=== PATIENT | male | born 1965 | race Caucasian/White ===

== ENCOUNTER 2016-12-28 12:08 | Inpatient (IN) | payer SELFPAY ==
[2016-12-28 12:20] VITALS: BMI 25.8
--- NOTE | 2016-12-28 12:31 | EKG ---
Test Reason : Blood Pressure : / mmHG Vent. Rate : 101 BPM Atrial Rate : 101 BPM P-R Int : 162 ms QRS Dur : 088 ms QT Int : 342 ms P-R-T Axes : 045 027 036 degrees QTc Int : 443 ms SINUS TACHYCARDIA OTHERWISE NORMAL ECG WHEN COMPARED WITH ECG OF 09-OCT-2015 05:59, NO SIGNIFICANT CHANGE WAS FOUND Confirmed by CHANDANA KINGSTON MD ([id number]) on 12/28/2016 12:30:40 PM Referred By: Confirmed By:CHANDANA KINGSTON MD
[2016-12-28 12:58] LABS: MCH 24.1 pg (25.7-33.7); MCHC 31.6 g/dl (32.0-35.9); MEAN CELL VOLUME 76.3 fl (80-96); MEAN PLT VOLUME 8.2 fl (7.5-11.1); PLATELET COUNT 64 K/MM3 (134-434); RDW 24.4 % (11.9-15.9)
[2016-12-28] MEDS ORDERED: NITROGLYCERIN SUBLINGUAL 1/150 0.4 MG TAB SL ONE (13:05)
--- NOTE | 2016-12-28 13:05 | PDOC ---
History of Present Illness - History of Present Illness Initial Comments: 12/28/16 14:45 Patient is a 51-year-old male with past medical history of alcoholism, hyperlipidemia, gastritis, GI bleed who presents to the emergency department today complaining of chest pain. Patient presents from [facility] where he was currently in detox. Patient states that he has had left-sided chest pain for approximately one week which has gotten worse over the past 24 hours. He states that the pain is sharp and constant. It does not change when he takes a deep breath. Admits to palpitations. Sometimes the pain makes him short of breath. He has not taken any medication for the pain. Denies fevers, chills, weakness, edema, cough, wheezing, nausea, vomiting and diarrhea. Denies smoking and recreational drug use. <Crissy Choi - Last Filed: 01/03/17 12:11> <Manjula Bills - Last Filed: 01/03/17 13:00> - General Chief Complaint: Chest Pain Stated Complaint: Alcohol intoxication Time Seen by Provider: 12/28/16 12:48 Past History - Travel Traveled outside of the country in the last 30 days: No Close contact w/someone who was outside of country & ill: No - Past Medical History Asthma: No Cardiac Disorders: No COPD: No Diabetes: No GI Disorders: Yes (gastritis, gastrointestinal bleeding) Disorders: No HTN: No Kidney Stones: No Suicide Attempt (Hx): No Seizures: No - Surgical History Abdominal Surgery: No Appendectomy: No Cardiac Surgery: No Cholecystectomy: No Lung Surgery: No Neurologic Surgery: No Orthopedic Surgery: No - Reproductive History Testicular Surgery: No - Immunization History Immunization Up to Date: No - Psycho/Social/Smoking Cessation Hx Anxiety: No Suicidal Ideation: No Smoking History: Never smoked Have you smoked in the past 12 months: No Number of Cigarettes Smoked Daily: 20 'Breaking Loose' booklet given: 10/06/15 Hx Alcohol Use: Yes (vodka) Drug/Substance Use Hx: No Substance Use Type: Alcohol Hx Substance Use Treatment: Yes <Crissy Choi - Last Filed: 01/03/17 12:11> <Manjula Bills - Last Filed: 01/03/17 13:00> - Past Medical History Allergies/Adverse Reactions: Allergies Allergy/AdvReac Type Severity Reaction Status Date / Time No Known Allergies Allergy Verified 12/28/16 11:17 Home Medications: Ambulatory Orders NK [No Known Home Medication] 10/06/15 Review of Systems - Review of Systems Able to Perform ROS?: Yes <Crissy Choi - Last Filed: 01/03/17 12:11> *Physical Exam - Vital Signs Last Vital Signs Temp Pulse Resp BP Pulse Ox 98.2 F 105 H 18 140/102 96 12/28/16 12:19 12/28/16 12:19 12/28/16 12:19 12/28/16 12:19 12/28/16 12:19 - Physical Exam Comments: 12/28/16 14:49 GENERAL: Well developed, well nourished. Awake and alert. No acute distress. HEENT: Normocephalic, atraumatic. PERRLA, EOMI. No conjunctival pallor. Sclera are non- icteric. Moist mucous membranes. Oropharynx is clear. NECK: Supple. Full ROM. No JVD. Carotid pulses 2+ and symmetric, without bruits. No thyromegaly. No lymphadenopathy. CARDIOVASCULAR: Regular rate and rhythm. No murmurs, rubs, or gallops. Distal pulses are 2+ and symmetric. PULMONARY: No evidence of respiratory distress. Lungs clear to auscultation bilaterally. No wheezing, rales or rhonchi. ABDOMINAL: Soft. Non-tender. Non-distended. No rebound or guarding. No organomegaly. Normoactive bowel sounds. MUSCULOSKELETAL Normal range of motion at all joints. No bony deformities or tenderness. No CVA tenderness. EXTREMITIES: No cyanosis. No clubbing. No edema. No calf tenderness. SKIN: Warm and dry. Normal capillary refill. No rashes. No jaundice. NEUROLOGICAL: Alert, awake, appropriate. Cranial nerves 2-12 intact. No deficits to light touch and temperature in face, upper extremities and lower extremities. No motor deficits in the in face, upper extremities and lower extremities. Normoreflexic in the upper and lower extremities. Normal speech. Toes are down- going bilaterally. Gait is normal without ataxia. PSYCHIATRIC: Cooperative. Good eye contact. Appropriate mood and affect. <Crissy Choi - Last Filed: 01/03/17 12:11> - Vital Signs Last Vital Signs Temp Pulse Resp BP Pulse Ox 97.9 F 71 20 121/71 99 01/03/17 10:00 01/03/17 10:00 01/03/17 10:00 01/03/17 10:00 01/03/17 10:00 <Manjula Bills - Last Filed: 01/03/17 13:00> ED Treatment Course - LABORATORY CBC & Chemistry Diagram: 12/28/16 12:21 12/28/16 12:21 <Crissy Choi - Last Filed: 01/03/17 12:11> - LABORATORY CBC & Chemistry Diagram: 01/03/17 05:35 01/03/17 05:35 - ADDITIONAL ORDERS Additional order review: 12/29/16 12/28/16 05:35 12:21 RBC 4.50 4.79 D MCV 76.3 L 76.3 L MCHC 31.5 L 31.6 L RDW 22.9 H 24.4 H MPV 8.8 8.2 Neutrophils % 60.0 D 42.0 L D Lymphocytes % 26.0 D 41.0 H D Monocytes % 12.0 H 11.0 H Eosinophils % 2.0 D 1.0 Basophils % 5.0 H D - RADIOLOGY Radiology Studies Ordered: Category Date Time Status CHEST X-RAY PORTABLE* [RAD] Stat Radiology 12/28/16 12:18 Completed - Medications Given in the ED: ED Medications Discontinued Medications Generic Name Dose Route Start Last Admin Trade Name Freq PRN Reason Stop Dose Admin Aspirin 162 mg 12/29/16 13:04 12/28/16 14:12 Ecotrin - PO 12/29/16 13:05 162 mg ONCE ONE Administration Bismuth Subsalicylate 30 ml 12/28/16 14:48 12/28/16 15:31 Pepto-Bismol Liquid - PO 12/28/16 14:49 30 ml ONCE ONE Administration Chlordiazepoxide HCl 50 mg 12/28/16 17:00 12/29/16 10:47 Librium - PO 12/29/16 11:01 50 mg [id number] ALPA Administration Chlordiazepoxide HCl 25 mg 12/29/16 17:00 12/30/16 11:41 Librium - PO 12/30/16 11:01 25 mg [id number] ALPA Administration Chlordiazepoxide HCl 25 mg 12/28/16 16:17 12/31/16 14:42 Librium - PO 12/31/16 16:16 25 mg Q4H PRN Administration WITHDRAWAL(CONT SUBST) Chlordiazepoxide HCl 50 mg 12/30/16 17:00 01/01/17 05:23 Librium - PO 50 mg [id number] ALPA Administration Chlordiazepoxide HCl 25 mg 01/01/17 11:00 01/02/17 06:31 Librium - PO 01/02/17 05:01 25 mg [id number] ALPA Administration Chlordiazepoxide HCl 15 mg 01/02/17 11:00 01/02/17 22:19 Librium - PO 01/03/17 05:01 15 mg [id number] ALPA Administration Chlordiazepoxide HCl 15 mg 01/03/17 07:30 01/03/17 07:39 Librium - PO 01/03/17 07:31 15 mg [id number] ALPA Administration Famotidine/Sodium Chloride 50 mls @ 100 mls/hr 12/28/16 22:00 12/30/16 09:07 Pepcid 20 Mg Premixed Ivpb - IVPB Not Given BID ALPA Sodium Chloride 1,000 mls @ 83 mls/hr 12/29/16 18:45 12/29/16 18:57 Normal Saline - IV 83 mls/hr ASDIR ALPA Administration Lorazepam 1 mg 12/30/16 05:24 01/01/17 13:32 Ativan - PO 12/30/16 05:25 Not Given ONCE ONE Lorazepam 2 mg 12/30/16 07:30 12/30/16 07:34 Ativan Injection - IM 12/30/16 07:31 2 mg ONCE ONE Administration Lorazepam 2 mg 12/30/16 10:45 12/30/16 10:40 Ativan Injection - IM 12/30/16 10:46 2 mg ONCE ONE Administration Lorazepam 2 mg 12/30/16 14:47 12/30/16 14:52 Ativan Injection - IM 12/30/16 14:48 2 mg ONCE ONE Administration Lorazepam 2 mg 12/31/16 00:08 12/31/16 00:11 Ativan Injection - IM 12/31/16 00:09 2 mg ONCE ONE Administration Lorazepam 2 mg 12/31/16 01:00 12/31/16 01:06 Ativan Injection - IM 12/31/16 01:01 2 mg ONCE ONE Administration Magnesium Citrate 300 ml 12/29/16 15:50 01/01/17 13:32 Citroma - PO 12/29/16 15:51 Not Given ONCE ONE Magnesium Oxide 800 mg 12/29/16 16:30 12/29/16 16:25 Mag-Ox - PO 12/29/16 16:31 800 mg ONCE ONE Administration Magnesium Oxide 800 mg 12/30/16 17:34 12/30/16 18:53 Mag-Ox - PO 12/30/16 17:35 800 mg ONCE ONE Administration Morphine Sulfate 2 mg 12/28/16 19:57 12/28/16 22:24 Morphine Injection - IVPUSH 2 mg Q4H PRN Administration PAIN Nitroglycerin 0.4 mg 12/28/16 13:05 12/28/16 14:13 Nitrostat - SL 12/28/16 13:06 Not Given ONCE ONE Nitroglycerin 0.5 inch 12/28/16 13:22 12/28/16 14:12 Nitro-Bid 2% Paste - TD 12/28/16 13:23 0.5 inch ONCE ONE Administration Potassium Chloride 40 meq 12/29/16 15:00 12/29/16 15:19 Potassium Chloride Oral Liquid PO 12/29/16 15:01 40 meq ONCE ONE Administration Potassium Chloride 40 meq 12/31/16 10:00 12/31/16 09:50 K-Dur - PO 12/31/16 10:01 40 meq ONCE ONE Administration Potassium Phos/Sodium Phos 1 packet 12/30/16 17:45 12/31/16 17:13 Phos-Nak Packet - PO 1 packet TIDCM ALPA Administration <Manjula Bills - Last Filed: 01/03/17 13:00> Medical Decision Making - Medical Decision Making 12/28/16 13:32 Patient is a 51-year-old male with past medical history of alcoholism, hyperlipidemia, who presents to the emergency department today complaining of chest pain. Given the location of pain and the fact that it is nonreproducible, will rule out ACS. Also possible withdrawal from alcohol, costochondritis, GERD. Vital signs are notable for tachycardia into the 120s, initial blood pressure was 150/100. 1. CBC, CMP, Cardiac profile, lipase, pt/inr 2. Aspirin, Nitro 3. EKG, CXR 4. Re-evaluate 12/28/16 14:06 EKG: Rate 101, Normal intervals, normal axis. Sinus tachycardia with no acute ST -T wave changes CXR: Heart size is within normal limits. There is increased opacity within the left upper lobe that appears to be chronic in nature and was present on prior studies from 10/06/2015. There is also atelectatic changes at the left lung base. The right lung is clear. Suspected chronic changes within the left lung, no evidence of acute pathology. 12/28/16 14:55 Pt. states that he feels better after the nitro. Troponin is negative. CBC notable for a WBC of 2.0, however pt WBC trends low. Pt. still tachycardic in the 100's Given pt felt better after nitro and sustained tachycardia, will place pt. in tele obs <Crissy Choi - Last Filed: 01/03/17 12:11> *DC/Admit/Observation/Transfer <Crissy Choi - Last Filed: 01/03/17 12:11> - Attestations Physician Attestion: I reviewed the case with the mid-level practitioner and agree with the mid- level practitioner's assessment, diagnosis and disposition. <Manjula Bills - Last Filed: 01/03/17 13:00> Diagnosis at time of Disposition: Tachycardia Chest pain Qualifiers: Chest pain type: unspecified Qualified Code(s): R07.9 - Chest pain, unspecified
[2016-12-28 13:06] LABS: ANION GAP 13 (8-16); BILIRUBIN,TOTAL 0.7 mg/dL (0.2-1.0); CO2 27 mmol/L (21-32); CREATININE 0.6 mg/dL (0.7-1.3); GLUCOSE,RANDOM 109 mg/dL (74-106); SGOT/AST 165 U/L (15-37); SGPT/ALT 78 U/L (12-78); TOT PROT 8.4 g/dl (6.4-8.2)
[2016-12-28 13:10] LABS: ALK PHOS 92 U/L (45-117); CPK 229 IU/L (39-308); TROPONIN I < 0.02 ng/ml (0.00-0.05)
[2016-12-28] MEDS ORDERED: NITROGLYCERIN 2% OINTMENT - 1GM PACKET TD ONE ×2 (13:22→14:08)
[2016-12-28] MEDS ORDERED: ASPIRIN 81 MG CHEWABLE TABLETS ONE (14:08)
[2016-12-28] MEDS ORDERED: BISMUTH SUBSALICYLATE 262 MG/15 ML BTL PO ONE (14:48)
--- NOTE | 2016-12-28 16:15 | HP ---
CHIEF COMPLAINT: chest pain PCP: none HISTORY OF PRESENT ILLNESS: 51 yo non-smoker with pmhx of alcohol abuse and GI bleed presents from [facility] with chest pain. He states that this pain has been off and on for about a month and has slowly progressed over the last week. He describes 8/10 left sided chest pressure that can become substernal at times. Pain is associated with activity and relieved by rest and nitro now in ED. Pain also associated with diaphoresis and palpitations. No history of cardiac issues in past. No family history of CV disease. Pain is not reproducible by palpation. He does mention some nausea and vomiting but this is chronic from his GI problems in past. Denies SOB, abdominal pain, N/V,fever, or recent illness. No cardiac work up in past. ER course was notable for: (1)Trop (-) x1 (2)EKG shows NSR with no ST or T wave abnormalities. (3)CXR shows no acute pathology. Recent Travel:Denies PAST MEDICAL HISTORY:Alcohol abuse, and GI bleed. PAST SURGICAL HISTORY: NONE Social History: Smoking: never Alcohol: abuse Drugs: denies Family History: NIDDM (mother and father) Allergies No Known Allergies Allergy (Verified 12/28/16 11:17) HOME MEDICATIONS: Home Medications Medication Instructions Recorded NK [No Known Home Medication] 10/06/15 REVIEW OF SYSTEMS CONSTITUTIONAL: Absent: fever, chills, diaphoresis, generalized weakness, malaise, loss of appetite, weight change HEENT: Absent: rhinorrhea, nasal congestion, throat pain, throat swelling, difficulty swallowing, mouth swelling, ear pain, eye pain, visual changes CARDIOVASCULAR: chest pain, palpitations Absent: , syncope, irregular heart rate, lightheadedness, peripheral edema RESPIRATORY: Absent: cough, shortness of breath, dyspnea with exertion, orthopnea, wheezing, stridor, hemoptysis GASTROINTESTINAL: Absent: abdominal pain, abdominal distension, nausea, vomiting, diarrhea, constipation, melena, hematochezia GENITOURINARY: Absent: dysuria, frequency, urgency, hesitancy, hematuria, flank pain, genital pain MUSCULOSKELETAL: Absent: myalgia, arthralgia, joint swelling, back pain, neck pain SKIN: Absent: rash, itching, pallor HEMATOLOGIC/IMMUNOLOGIC: Absent: easy bleeding, easy bruising, lymphadenopathy, frequent infections ENDOCRINE: Absent: unexplained weight gain, unexplained weight loss, heat intolerance, cold intolerance NEUROLOGIC: Absent: headache, focal weakness or paresthesias, dizziness, unsteady gait, seizure, mental status changes, bladder or bowel incontinence PSYCHIATRIC: Absent: anxiety, depression, suicidal or homicidal ideation, hallucinations. PHYSICAL EXAMINATION Vital Signs - 24 hr 12/28/16 12/28/16 12/28/16 12:19 13:22 15:12 Temperature 98.2 F Pulse Rate 105 H Pulse Rate [ 90 90 Apical] Respiratory 18 18 Rate Blood Pressure 140/102 Blood Pressure 121/87 128/89 [Right Arm] O2 Sat by Pulse 96 100 Oximetry (%) GENERAL: AAO x3, NAD HEAD: NC/AT EYES: PERRLA, EOMI, sclera anicteric, conjunctiva clear. No lid lag. EARS, NOSE, THROAT: Ears normal, nares patent, oropharynx clear without exudates. Dry mucous membranes. NECK: Supple, NO JVD or LAD LUNGS: CTAB. No wheezes, and no crackles. No accessory muscle use. HEART: Tachycardic, normal S1 and S2 without murmur, rub or gallop. ABDOMEN: Soft, NT/ND, normoactive bowel sounds, no guarding, no rebound, no masses. No hepatomegaly or splenomegaly. MUSCULOSKELETAL: Normal range of motion at all joints. No bony deformities or tenderness. No CVA tenderness. UPPER EXTREMITIES: 2+ pulses, warm, well-perfused. No cyanosis. No clubbing. No peripheral edema. LOWER EXTREMITIES: 2+ pulses, warm, well-perfused. No calf tenderness. No peripheral edema. NEUROLOGICAL: Cranial nerves II-XII intact. Normal speech. gait not observed. fine resting trem PSYCHIATRIC: Cooperative. Good eye contact. Appropriate mood and affect. SKIN: Warm, dry, normal turgor, no rashes or lesions noted, normal capillary refill. Laboratory Results - last 24 hr 12/28/16 12/28/16 12:21 12:21 WBC 2.0 L D RBC 4.79 D Hgb 11.5 L D Hct 36.5 D MCV 76.3 L MCH 24.1 L MCHC 31.6 L RDW 24.4 H Plt Count 64 L MPV 8.2 Neutrophils % Y Lymphocytes % Y Sodium 141 Potassium 3.5 Chloride 101 Carbon Dioxide 27 Anion Gap 13 BUN 7 D Creatinine 0.6 L Creat Clearance w eGFR > 60 Random Glucose 109 H Calcium 8.0 L Total Bilirubin 0.7 AST 165 H D ALT 78 D Alkaline Phosphatase 92 D Creatine Kinase 229 Creatine Kinase Index 0.4 CK-MB (CK-2) < 1 Troponin I < 0.02 Total Protein 8.4 H D Albumin 4.0 D Lipase 388 ASSESSMENT/PLAN: 51 yo non-smoker with pmhx of alcohol abuse and GI bleed presents from [facility] detox placed on observation to R/O ACS. Problem List - Problem (1) Chest pain Assessment/Plan: * Tele obs * Serial trops Q6H * Cardiac consult. * Echo pending. * Sodium controlled diet. * Nitro SL Q5M PRN. * Repeat EKG in AM. * Lipid panel * HgbA1C (2) Alcohol abuse Assessment/Plan: * Librium protocol * assess for withdrawl Q shift. Visit type - Emergency Visit Emergency Visit: Yes Care time: The patient presented to the Emergency Department on the above date and was hospitalized for further evaluation of their emergent condition. - New Patient This patient is new to me today: Yes Date on this admission: 12/28/16 - Critical Care Critical Care patient: No
[2016-12-28] MEDS ORDERED: NITROGLYCERIN SUBLINGUAL 1/150 0.4 MG TAB SL PRN (16:16)
[2016-12-28] MEDS ORDERED: chlordiazePOXIDE HCL 25 MG CAPSULE ONE (17:32)
[2016-12-28] MEDS: chlordiazePOXIDE HCL 25 MG CAPSULE PO SCH ×2 (17:34→22:23)
--- NOTE | 2016-12-28 17:42 | PN ---
Physical Exam: SUBJECTIVE: Patient seen and examined OBJECTIVE: GENERAL: The patient is awake, alert, and fully oriented, in no acute distress. HEAD: Normal with no signs of trauma. EYES: PERRL, extraocular movements intact, sclera anicteric, conjunctiva clear. No ptosis. ENT: Ears normal, nares patent, oropharynx clear without exudates, moist mucous membranes. NECK: Trachea midline, full range of motion, supple. LUNGS: Breath sounds equal, clear to auscultation bilaterally, no wheezes, no crackles, no accessory muscle use. HEART: Regular rate and rhythm, S1, S2 without murmur, rub or gallop. ABDOMEN: Soft, nontender, nondistended, normoactive bowel sounds, no guarding, no rebound, no hepatosplenomegaly, no masses. EXTREMITIES: 2+ pulses, warm, well-perfused, no edema. NEUROLOGICAL: Cranial nerves II through XII grossly intact. Normal speech, gait not observed. PSYCH: Normal mood, normal affect. SKIN: Warm, dry, normal turgor, no rashes or lesions noted Active Medications Generic Name Dose Route Start Last Admin Trade Name Freq PRN Reason Stop Dose Admin Aspirin 162 mg 12/29/16 13:04 12/28/16 14:12 Ecotrin - PO 12/29/16 13:05 162 mg ONCE ONE Administration Chlordiazepoxide HCl 50 mg 12/28/16 17:00 Librium - PO 12/29/16 11:01 [id number] ALPA Chlordiazepoxide HCl 25 mg 12/29/16 17:00 Librium - PO 12/30/16 11:01 [id number] ALPA Chlordiazepoxide HCl 15 mg 12/30/16 17:00 Librium - PO 12/31/16 11:01 [id number] ALPA Chlordiazepoxide HCl 25 mg 12/28/16 16:17 Librium - PO 12/31/16 16:16 Q4H PRN WITHDRAWAL(CONT SUBST) Heparin Sodium (Porcine) 5,000 unit 12/28/16 22:00 Heparin - SQ BID ALPA Famotidine/Sodium Chloride 50 mls @ 100 mls/hr 12/28/16 22:00 Pepcid 20 Mg Premixed Ivpb - IVPB BID ALPA Nitroglycerin 0.4 mg 12/28/16 16:16 Nitrostat - SL Q5M PRN FOR CHEST PAIN ASSESSMENT/PLAN:
[2016-12-28 18:26] LABS: ANISOCYTOSIS 3+; HYPOCHROMIA 1+; MICROCYTOSIS 1+; PLATELET ESTIMATE DECREASED (NORMAL)
--- NOTE | 2016-12-28 18:28 | PN ---
Teaching Attending Note Name of Resident: Brett Quach ATTENDING PHYSICIAN STATEMENT I saw and evaluated the patient. I reviewed the resident's note and discussed the case with the resident. I agree with the resident's findings and plan as documented. SUBJECTIVE: This is a 51-year-old man with a history of alcohol abuse who presents to the ER from [facility] with chest pain. He has been having left- sided and substernal chest pressure with exertion on and off for about one month , and worse during the last week. The pain does not radiate but is associated with palpitations and diaphoresis. He got relief in the ER with aspirin and SLNTG. OBJECTIVE: Vital Signs Period Temp Pulse Resp BP Sys/Boykin Pulse Ox Last 24 Hr 98.2 F 90-105 18-18 121-140/87-102 96-100 HEART: S1S2, tachycardic LUNGS: Clear ABDOMEN: Soft, non-tender, non-distended, normal BS EXTREMITIES: No edema ASSESSMENT AND PLAN: This is a 51-year-old man with a history of alcohol abuse who presented to the ER today with exertional chest pain for the past month. 1. Chest pain - Admit to telemetry - Serial troponins - Continue aspirin - Check lipid panel, HgbA1c, echo - Cardiology consult 2. Continuous alcohol abuse with withdrawal - Start Librium detox, thiamine, folic acid 3. Pancytopenia, secondary to alcohol abuse - Monitor CBC 4. Hepatic transaminitis, secondary to alcohol abuse - Monitor AST, ALT
--- NOTE | 2016-12-28 19:55 | HP ---
CHIEF COMPLAINT: Chest pain PCP: None HISTORY OF PRESENT ILLNESS: 51 year old M with pmh of alcohol abuse and gastrointestinal bleed presenting from [facility] with 1 month history of chest pain that has worsened over the past week. Patient describes 8/10, chest pain and pressure on the left side and substernally. Pain is worsened by activity and improved upon rest and with nitroglycerin. Patient endorses episdoes of palpitations and diaphoresis. Patient has occasional nausea and vomiting that has been chronic from GI issues. Denies any fever, chills, SOB, or abdominal pain. Patient has no cardiac history, no family history of cardiac disease, or no prior cardiac workups. ER course was notable for: (1) Labs (2) EKG- NSR, CXR- negative (3) Trops negative x1 Recent Travel: None PAST MEDICAL HISTORY: alcohol abuse and gastrointestinal bleed PAST SURGICAL HISTORY: denies Social History: Smoking: none Alcohol: significant history Drugs: none Family History: Mother and Father with NIDDM Allergies No Known Allergies Allergy (Verified 12/28/16 11:17) HOME MEDICATIONS: Home Medications Medication Instructions Recorded NK [No Known Home Medication] 10/06/15 REVIEW OF SYSTEMS CONSTITUTIONAL: Absent: fever, chills, diaphoresis, generalized weakness, malaise, loss of appetite, weight change HEENT: Absent: rhinorrhea, nasal congestion, throat pain, throat swelling, difficulty swallowing, mouth swelling, ear pain, eye pain, visual changes CARDIOVASCULAR: Absent: chest pain, syncope, palpitations, irregular heart rate, lightheadedness , peripheral edema RESPIRATORY: Absent: cough, shortness of breath, dyspnea with exertion, orthopnea, wheezing, stridor, hemoptysis GASTROINTESTINAL: Absent: abdominal pain, abdominal distension, nausea, vomiting, diarrhea, constipation, melena, hematochezia GENITOURINARY: Absent: dysuria, frequency, urgency, hesitancy, hematuria, flank pain, genital pain MUSCULOSKELETAL: Absent: myalgia, arthralgia, joint swelling, back pain, neck pain SKIN: Absent: rash, itching, pallor HEMATOLOGIC/IMMUNOLOGIC: Absent: easy bleeding, easy bruising, lymphadenopathy, frequent infections ENDOCRINE: Absent: unexplained weight gain, unexplained weight loss, heat intolerance, cold intolerance NEUROLOGIC: Absent: headache, focal weakness or paresthesias, dizziness, unsteady gait, seizure, mental status changes, bladder or bowel incontinence PSYCHIATRIC: Absent: anxiety, depression, suicidal or homicidal ideation, hallucinations. PHYSICAL EXAMINATION Vital Signs - 24 hr 12/28/16 19:11 Pulse Rate 123 H Respiratory 18 Rate Blood Pressure 127/92 O2 Sat by Pulse 100 Oximetry (%) GENERAL: Awake, alert, and fully oriented, in no acute distress. HEAD: Normal with no signs of trauma. EYES: Pupils equal, round and reactive to light, extraocular movements intact, sclera anicteric, conjunctiva clear. No lid lag. EARS, NOSE, THROAT: Ears normal, nares patent, oropharynx clear without exudates. NECK: Normal range of motion, supple without lymphadenopathy, JVD, or masses. LUNGS: Breath sounds equal, clear to auscultation bilaterally. No wheezes, and no crackles. No accessory muscle use. HEART: Tachycardic, normal S1 and S2 without murmur, rub or gallop. ABDOMEN: Soft, nontender, not distended, normoactive bowel sounds, no guarding, no rebound, no masses. No hepatomegaly or splenomegaly. MUSCULOSKELETAL: Normal range of motion at all joints. No bony deformities or tenderness. No CVA tenderness. UPPER EXTREMITIES: 2+ pulses, warm, well-perfused. No cyanosis. No clubbing. No peripheral edema. RESTING TREMOR LOWER EXTREMITIES: 2+ pulses, warm, well-perfused. No calf tenderness. No peripheral edema. NEUROLOGICAL: Cranial nerves II-XII intact. Normal speech. Normal gait. PSYCHIATRIC: Cooperative. Good eye contact. Appropriate mood and affect. SKIN: Warm, dry, normal turgor, no rashes or lesions noted, normal capillary refill. ASSESSMENT/PLAN: 51 year old M with pmh of alcohol abuse and GI bleed presenting with 1 month history of chest pain admitted for r/o acs and librium protocol. Problem List - Problem (1) Chest pain Assessment/Plan: Admit to med surg Trops negative x1, will repeat every 6 hrs Echo pending Sodium controlled diet Nitroglycerin q5m SL PRN Lipid panel A1c EKG in the AM Morphine 2mg Q4h PRN for pain Cardiology consulted: Dr. Dixon (2) Alcohol abuse Assessment/Plan: Librium protocol (3) DVT prophylaxis Assessment/Plan: Heparin 5000 units sq BID Visit type - Emergency Visit Emergency Visit: Yes ED Registration Date: 12/28/16 Care time: The patient presented to the Emergency Department on the above date and was hospitalized for further evaluation of their emergent condition. - New Patient This patient is new to me today: Yes Date on this admission: 12/28/16 - Critical Care Critical Care patient: No
[2016-12-28] MEDS ORDERED: morphine CARPU-JECT 4 MG/1 ML DISP.SYRIN IVPUSH PRN (19:57)
[2016-12-28] MEDS: HEPARIN NA (PORCINE) 5,000 UNITS/ML 1ML VIAL SQ SCH (22:22)
[2016-12-28] MEDS: FAMOTIDINE 20 MG/50 ML IVPB 50 ML IVPB SCH (22:23)
[2016-12-29] MEDS: chlordiazePOXIDE HCL 25 MG CAPSULE PO PRN (01:32)
--- NOTE | 2016-12-29 01:36 | HOSP ---
Subjective - Review of Symptoms Events since last encounter: Paged by nurse because patient appears diaphoretic, tachycardic and c/o chest pain. Arrived at scene, patient's Malawian speaking and stated he has chest pain and pointed at his left upper chest. General: Yes: Other (anxious, diaphretic) Cardiovascular: Yes: Chest Pain Physical Examination Vital Signs: Vital Signs Temperature 98 F 12/28/16 20:30 Pulse Rate 111 H 12/28/16 20:30 Respiratory Rate 20 12/28/16 20:30 Blood Pressure 139/85 12/28/16 20:30 O2 Sat by Pulse Oximetry (%) 99 12/28/16 19:40 Constitutional: Yes: Anxious, Diaphoresis, Mild Distress Eyes: Yes: Other (bilateral yellowish eye discharge) Cardiovascular: Yes: Tachycardia, S1, S2. No: Murmur, Rub Respiratory: Yes: Rhonchi (bilaterally) Gastrointestinal: Yes: Normal Bowel Sounds, Soft. No: Distention Neurological: Yes: Alert, Oriented, Tremors Hospitalist Encounter Assessment: Chest pain, r/o ACS - stat EKG, CBC, BMP, trop - Nitroglycerin SL Alcohol withdrawal, Acute - Tremulous, Tachycardic and diaphoretic - Librium 25mg x 1 dose - Seizure precaution Deon Matos, Medicine PGY-2 Pager: [phone] Visit type - Emergency Visit Emergency Visit: No - New Patient This patient is new to me today: Yes Date on this admission: 12/29/16 - Critical Care Critical Care patient: No
[2016-12-29] MEDS: chlordiazePOXIDE HCL 25 MG CAPSULE PO SCH ×4 (06:23→22:00)
[2016-12-29 07:41] LABS: MCHC 31.5 g/dl (32.0-35.9); MEAN CELL VOLUME 76.3 fl (80-96); MEAN PLT VOLUME 8.8 fl (7.5-11.1); PLATELET COUNT 45 K/MM3 (134-434); RDW 22.9 % (11.9-15.9); WHITE BLOOD COUNT 2.6 K/mm3 (4.0-10.0)
[2016-12-29 07:47] LABS: INR 1.12 (0.82-1.09); PROTHROMBIN TIME (PATIENT) 12.4 SEC (9.98-11.88)
[2016-12-29 08:12] LABS: ALBUMIN 3.7 g/dl (3.4-5.0); ANION GAP 10 (8-16); CO2 28 mmol/L (21-32); CREATININE 0.4 mg/dL (0.7-1.3); MAGNESIUM 1.4 mg/dL (1.8-2.4); SGOT/AST 135 U/L (15-37); SGPT/ALT 69 U/L (12-78); TOT PROT 7.9 g/dl (6.4-8.2)
[2016-12-29 08:18] LABS: ALK PHOS 91 U/L (45-117); BILIRUBIN,TOTAL 0.9 mg/dL (0.2-1.0); CALCIUM 8.8 mg/dL (8.5-10.1); CHOLESTEROL 231 mg/dL (50-200); GLUCOSE,RANDOM 81 mg/dL (74-106); LDL CHOLESTEROL (ONLY SJRH) 104 mg/dL (5-100); PHOSPHOROUS 2.7 mg/dL (2.5-4.9)
[2016-12-29 08:51] LABS: ANISOCYTOSIS 2+; HYPOCHROMIA FEW; PLATELET ESTIMATE DECREASED (NORMAL)
[2016-12-29] MEDS: FOLIC ACID 1 MG TABLET (FP) PO SCH (09:24)
[2016-12-29] MEDS: FAMOTIDINE 20 MG/50 ML IVPB 50 ML IVPB SCH ×2 (09:24→22:00)
[2016-12-29] MEDS: THIAMINE HCL 100 MG TABLET (FP) PO SCH (09:25)
[2016-12-29] MEDS: HEPARIN NA (PORCINE) 5,000 UNITS/ML 1ML VIAL SQ SCH ×2 (09:25→22:00)
--- NOTE | 2016-12-29 11:13 | CON.CARD ---
Consult - History of Present Illness History of Present Illness: Patient is a 51-year-old male with past medical history of alcoholism, hyperlipidemia, gastritis, GI bleed who presents to the emergency department today complaining of chest pain. Patient presents from [facility] where he was currently in detox. Patient states that he has had left-sided chest pain for approximately one week which has gotten worse over the past 24 hours. He states that the pain is sharp and constant. It does not change when he takes a deep breath. Admits to palpitations. Sometimes the pain makes him short of breath. He has not taken any medication for the pain. Denies fevers, chills, weakness, edema, cough, wheezing, nausea, vomiting and diarrhea. Denies smoking and recreational drug use. - History Source History Provided By: Patient, Medical Record - Past Medical History Infectious Disease: Yes: Other (h/o TB treated 2008 per [facility] notes) Psych: Yes: Addictions (alcohol abuse) - Alcohol/Substance Use Hx Alcohol Use: Yes (vodka) - Smoking History Smoking history: Never smoked Have you smoked in the past 12 months: No Aproximately how many cigarettes per day: 20 Home Medications - Allergies Allergies/Adverse Reactions: Allergies Allergy/AdvReac Type Severity Reaction Status Date / Time No Known Allergies Allergy Verified 12/28/16 11:17 - Home Medications Home Medications: Ambulatory Orders NK [No Known Home Medication] 10/06/15 Review of Systems - Review of Systems Constitutional: reports: No Symptoms Eyes: reports: No Symptoms HENT: reports: No Symptoms Neck: reports: No Symptoms Cardiovascular: reports: Chest Pain Gastrointestinal: reports: No Symptoms Genitourinary: reports: No Symptoms Breasts: reports: No Symptoms Reported Musculoskeletal: reports: No Symptoms Integumentary: reports: No Symptoms Neurological: reports: No Symptoms Endocrine: reports: No Symptoms Hematology/Lymphatic: reports: No Symptoms Psychiatric: reports: No Symptoms Vital Signs: Vital Signs Temperature 98 F 12/29/16 10:00 Pulse Rate 97 H 12/29/16 10:00 Respiratory Rate 18 12/29/16 10:00 Blood Pressure 137/85 12/29/16 10:00 O2 Sat by Pulse Oximetry (%) 98 12/29/16 10:00 Constitutional: Yes: Well Nourished, No Distress, Calm Eyes: Yes: WNL, Conjunctiva Clear, EOM Intact HENT: Yes: WNL, Atraumatic, Normocephalic Neck: Yes: WNL, Supple, Trachea Midline Respiratory: Yes: WNL, Regular, CTA Bilaterally Gastrointestinal: Yes: WNL, Normal Bowel Sounds Renal/: Yes: WNL Cardiovascular: Yes: WNL, Regular Rate and Rhythm Musculoskeletal: Yes: WNL Extremities: Yes: WNL Integumentary: Yes: WNL Neurological: Yes: WNL, Alert, Oriented ...Motor Strength: WNL Psychiatric: Yes: WNL, Alert, Oriented - Other Data Labs, Other Data: INR, PTT INR 1.12 (0.82-1.09) 12/29/16 05:35 Laboratory Results - last 24 hr 12/28/16 12/28/16 12/28/16 12:21 12:21 18:07 WBC 2.0 L D RBC 4.79 D Hgb 11.5 L D Hct 36.5 D MCV 76.3 L MCH 24.1 L MCHC 31.6 L RDW 24.4 H Plt Count 64 L MPV 8.2 Neutrophils % 42.0 L D Lymphocytes % 41.0 H D Monocytes % 11.0 H Eosinophils % 1.0 Basophils % 5.0 H D Band Neutrophils 0.0 Nucleated RBCs Platelet Estimate Decreased Platelet Comment Hypochromic-Microcytic 1+ Anisocytosis 3+ Microcytosis 1+ INR Sodium 141 Potassium 3.5 Chloride 101 Carbon Dioxide 27 Anion Gap 13 BUN 7 D Creatinine 0.6 L Creat Clearance w eGFR > 60 Random Glucose 109 H Hemoglobin A1c % Calcium 8.0 L Phosphorus Magnesium Total Bilirubin 0.7 AST 165 H D ALT 78 D Alkaline Phosphatase 92 D Creatine Kinase 229 Creatine Kinase Index 0.4 CK-MB (CK-2) < 1 Troponin I < 0.02 < 0.02 Total Protein 8.4 H D Albumin 4.0 D Triglycerides Cholesterol Total LDL Cholesterol HDL Cholesterol Lipase 388 12/29/16 12/29/16 12/29/16 00:45 05:35 05:35 WBC 2.6 L RBC 4.50 Hgb 10.8 L Hct 34.3 L MCV 76.3 L MCH 24.0 L MCHC 31.5 L RDW 22.9 H Plt Count 45 L D MPV 8.8 Neutrophils % 60.0 D Lymphocytes % 26.0 D Monocytes % 12.0 H Eosinophils % 2.0 D Basophils % Band Neutrophils Nucleated RBCs 1 H Platelet Estimate Decreased Platelet Comment No clumping noted Hypochromic-Microcytic Few Anisocytosis 2+ Microcytosis INR 1.12 Sodium Potassium Chloride Carbon Dioxide Anion Gap BUN Creatinine Creat Clearance w eGFR Random Glucose Hemoglobin A1c % Calcium Phosphorus Magnesium Total Bilirubin AST ALT Alkaline Phosphatase Creatine Kinase Creatine Kinase Index CK-MB (CK-2) Troponin I < 0.02 Total Protein Albumin Triglycerides Cholesterol Total LDL Cholesterol HDL Cholesterol Lipase 12/29/16 12/29/16 12/29/16 05:35 05:35 05:35 WBC RBC Hgb Hct MCV MCH MCHC RDW Plt Count MPV Neutrophils % Lymphocytes % Monocytes % Eosinophils % Basophils % Band Neutrophils Nucleated RBCs Platelet Estimate Platelet Comment Hypochromic-Microcytic Anisocytosis Microcytosis INR Sodium 136 Potassium 3.2 L Chloride 98 Carbon Dioxide 28 Anion Gap 10 BUN 7 Creatinine 0.4 L D Creat Clearance w eGFR > 60 Random Glucose 81 D Hemoglobin A1c % 6.0 Calcium 8.8 Phosphorus 2.7 Magnesium 1.4 L Total Bilirubin 0.9 D AST 135 H ALT 69 Alkaline Phosphatase 91 Creatine Kinase Creatine Kinase Index CK-MB (CK-2) Troponin I Total Protein 7.9 Albumin 3.7 Triglycerides 48 Cancelled Cholesterol 231 H Cancelled Total LDL Cholesterol 104 H Cancelled HDL Cholesterol 116 H Cancelled Lipase Imaging - Results Chest X-ray: Image Reviewed (no i/e) EKG: Image Reviewed (sr wnl) Problem List - Problems (1) Chest pain Code(s): R07.9 - CHEST PAIN, UNSPECIFIED Qualifiers: Chest pain type: unspecified Qualified Code(s): R07.9 - Chest pain, unspecified (2) DVT prophylaxis Code(s): [id number] - (3) Tachycardia Code(s): R00.0 - TACHYCARDIA, UNSPECIFIED (4) ARF (acute renal failure) Code(s): N17.9 - ACUTE KIDNEY FAILURE, UNSPECIFIED (5) Acute respiratory failure Code(s): J96.00 - ACUTE RESPIRATORY FAILURE, UNSP W HYPOXIA OR HYPERCAPNIA (6) Alcohol abuse Code(s): F10.10 - ALCOHOL ABUSE, UNCOMPLICATED (7) Alcohol dependence with uncomplicated withdrawal Code(s): F10.230 - ALCOHOL DEPENDENCE WITH WITHDRAWAL, UNCOMPLICATED (8) Anemia Code(s): D64.9 - ANEMIA, UNSPECIFIED Qualifiers: Iron deficiency anemia type: chronic blood loss (9) Electrolyte abnormality Code(s): E87.8 - OTH DISORDERS OF ELECTROLYTE AND FLUID BALANCE, NEC (10) GIB (gastrointestinal bleeding) Code(s): K92.2 - GASTROINTESTINAL HEMORRHAGE, UNSPECIFIED Qualifiers: GI bleed type/associated pathology: gastrointestinal hemorrhage with hematemesis Qualified Code(s): K92.0 - Hematemesis (11) Hypokalemia Code(s): E87.6 - HYPOKALEMIA (12) Neutropenia Code(s): D70.9 - NEUTROPENIA, UNSPECIFIED Qualifiers: Neutropenia type: other Qualified Code(s): D70.8 - Other neutropenia (13) Thrombocytopenia Code(s): D69.6 - THROMBOCYTOPENIA, UNSPECIFIED Assessment/Plan DT etoh a cp sx r/o mi neg plan DT rx echo stress test when dt controlled
[2016-12-29] MEDS ORDERED: ASPIRIN COATED 81 MG TABLET.EC PO ONE (13:04)
--- NOTE | 2016-12-29 13:07 | EKG ---
Test Reason : Blood Pressure : / mmHG Vent. Rate : 119 BPM Atrial Rate : 119 BPM P-R Int : 152 ms QRS Dur : 090 ms QT Int : 332 ms P-R-T Axes : 033 015 031 degrees QTc Int : 467 ms SINUS TACHYCARDIA OTHERWISE NORMAL ECG WHEN COMPARED WITH ECG OF 28-DEC-2016 12:22, NO SIGNIFICANT CHANGE WAS FOUND Confirmed by MANPREET LARRY MD ([id number]) on 12/29/2016 1:07:36 PM Referred By: Confirmed By:MANPREET LARRY MD
[2016-12-29] MEDS: ASPIRIN 81 MG CHEWABLE TABLETS PO SCH (13:36)
[2016-12-29] MEDS ORDERED: POTASSIUM CHLORIDE ORAL LIQUID 20 MEQ/15 ML PO ONE (15:00)
--- NOTE | 2016-12-29 15:02 | PN ---
Physical Exam: SUBJECTIVE: Patient seen and examined Overnight, patient was diaphoretic, tachycardic, and c/o chest pain. Patient was given Nitro SL, and Librium 25 mg. This morning patient complained of mild chest pain. OBJECTIVE: Vital Signs Period Temp Pulse Resp BP Sys/Boykin Pulse Ox Last 24 Hr 98 F-98.2 F 97-99 18-18 137-142/81-85 98 GENERAL: Awake, alert, and fully oriented, in no acute distress. HEAD: Normal with no signs of trauma. EYES: Pupils equal, round and reactive to light, extraocular movements intact, sclera anicteric, conjunctiva clear. No lid lag. EARS, NOSE, THROAT: Ears normal, nares patent, oropharynx clear without exudates. NECK: Normal range of motion, supple without lymphadenopathy, JVD, or masses. LUNGS: Breath sounds equal, clear to auscultation bilaterally. No wheezes, and no crackles. No accessory muscle use. HEART: Tachycardic, normal S1 and S2 without murmur, rub or gallop. ABDOMEN: Soft, nontender, not distended, normoactive bowel sounds, no guarding, no rebound, no masses. No hepatomegaly or splenomegaly. MUSCULOSKELETAL: Normal range of motion at all joints. No bony deformities or tenderness. No CVA tenderness. UPPER EXTREMITIES: 2+ pulses, warm, well-perfused. No cyanosis. No clubbing. No peripheral edema. RESTING TREMOR LOWER EXTREMITIES: 2+ pulses, warm, well-perfused. No calf tenderness. No peripheral edema. NEUROLOGICAL: Cranial nerves II-XII intact. Normal speech. Normal gait. PSYCHIATRIC: Cooperative. Good eye contact. Appropriate mood and affect. SKIN: Warm, dry, normal turgor, no rashes or lesions noted, normal capillary refill. Active Medications Generic Name Dose Route Start Last Admin Trade Name Freq PRN Reason Stop Dose Admin Aspirin 81 mg 12/29/16 12:45 12/29/16 13:36 Asa - PO 81 mg DAILY ALPA Administration Chlordiazepoxide HCl 25 mg 12/29/16 17:00 Librium - PO 12/30/16 11:01 [id number] ALPA Chlordiazepoxide HCl 15 mg 12/30/16 17:00 Librium - PO 12/31/16 11:01 [id number] ALPA Chlordiazepoxide HCl 25 mg 12/28/16 16:17 12/29/16 01:32 Librium - PO 12/31/16 16:16 25 mg Q4H PRN Administration WITHDRAWAL(CONT SUBST) Folic Acid 1 mg 12/29/16 10:00 12/29/16 09:24 Folic Acid - PO 1 mg DAILY ALPA Administration Heparin Sodium (Porcine) 5,000 unit 12/28/16 22:00 12/29/16 09:25 Heparin - SQ 5,000 unit BID ALPA Administration Famotidine/Sodium Chloride 50 mls @ 100 mls/hr 12/28/16 22:00 12/29/16 09:24 Pepcid 20 Mg Premixed Ivpb - IVPB 100 mls/hr BID ALPA Administration Morphine Sulfate 2 mg 12/28/16 19:57 12/28/16 22:24 Morphine Injection - IVPUSH 2 mg Q4H PRN Administration PAIN Nitroglycerin 0.4 mg 12/28/16 16:16 12/29/16 01:23 Nitrostat - SL 0.4 mg Q5M PRN Administration FOR CHEST PAIN Potassium Chloride 40 meq 12/29/16 15:00 Potassium Chloride Oral Liquid PO 12/29/16 15:01 ONCE ONE Thiamine HCl 100 mg 12/29/16 10:00 12/29/16 09:25 Vitamin B1 - PO 100 mg DAILY ALPA Administration ASSESSMENT/PLAN: 51 year old M with pmh of alcohol abuse and GI bleed presenting with 1 month history of chest pain admitted for r/o acs and librium protocol. Problem List - Problems (1) Chest pain Assessment/Plan: Admit to med surg Trops negative x3 Echo pending Sodium controlled diet Nitroglycerin q5m SL PRN Lipids- 231-cholesterol, 104-LDL, 116-HDL. Will have pt f/u outpatient with PCP A1c - 6.0 EKG unchanged from ED admission Morphine 2mg Q4h PRN for pain Cardiology consulted: Dr. Dixon, recommends stress test when delirium tremens controlled. (2) Alcohol abuse Assessment/Plan: Librium protocol (3) Neutropenia Assessment/Plan: Likely secondary to alcohol abuse Will monitor (4) Thrombocytopenia Assessment/Plan: Likely secondary to alcohol abuse Will monitor (5) DVT prophylaxis Assessment/Plan: Heparin 5000 units sq BID Visit type - Emergency Visit Emergency Visit: No - New Patient This patient is new to me today: No - Critical Care Critical Care patient: No
--- NOTE | 2016-12-29 15:21 | EKG ---
Test Reason : Blood Pressure : / mmHG Vent. Rate : 101 BPM Atrial Rate : 101 BPM P-R Int : 146 ms QRS Dur : 082 ms QT Int : 360 ms P-R-T Axes : 034 012 022 degrees QTc Int : 466 ms SINUS TACHYCARDIA OTHERWISE NORMAL ECG WHEN COMPARED WITH ECG OF 28-DEC-2016 18:39, NO SIGNIFICANT CHANGE WAS FOUND Confirmed by MANPREET LARRY MD ([id number]) on 12/29/2016 3:21:04 PM Referred By: Confirmed By:MANPREET LARRY MD
[2016-12-29] MEDS ORDERED: MAGNESIUM CITRATE 300 ML BOTTLE PO ONE (15:50)
[2016-12-29] MEDS ORDERED: MAGNESIUM OXIDE 400 MG TABLET (FP) PO ONE (16:30)
--- NOTE | 2016-12-29 17:07 | PN ---
Teaching Attending Note Name of Resident: Brett Quach ATTENDING PHYSICIAN STATEMENT I saw and evaluated the patient. I reviewed the resident's note and discussed the case with the resident. I agree with the resident's findings and plan as documented. SUBJECTIVE: Patient having intermittent chest pain. Also, intermittently anxious and agitated. OBJECTIVE: Vital Signs Period Temp Pulse Resp BP Sys/Boykin Pulse Ox Last 24 Hr 98 F-98.2 F 97-123 18-20 127-166/81-100 96-100 HEART: S1S2, tachycardic LUNGS: Clear ABDOMEN: Soft, non-tender, non-distended, normal BS EXTREMITIES: No edema ASSESSMENT AND PLAN: This is a 51-year-old man with a history of alcohol abuse who presented to the ER from [facility] with exertional chest pain for the past month. 1. Chest pain - Continue to monitor on telemetry - Troponins negative - Continue aspirin - Echo pending - Will need stress test 2. Continuous alcohol abuse with withdrawal - Continue Librium, thiamine, folic acid 3. Pancytopenia, secondary to alcohol abuse - Neutropenia improved - Continue to monitor CBC 4. Hepatic transaminitis, secondary to alcohol abuse - AST improving 5. Hypokalemia - Replete potassium
[2016-12-29] MEDS ORDERED: ONDANSETRON 4 MG/2 ML VIAL IVPUSH PRN (18:35)
[2016-12-29] MEDS ORDERED: SODIUM CHLORIDE 1,000 ML IV SCH (18:45)
[2016-12-30] MEDS: chlordiazePOXIDE HCL 25 MG CAPSULE PO PRN ×3 (03:52→14:39)
[2016-12-30] MEDS: chlordiazePOXIDE HCL 25 MG CAPSULE PO SCH ×5 (04:43→22:33)
[2016-12-30] MEDS ORDERED: LORazepam 1 MG TABLET PO ONE (05:24)
[2016-12-30] MEDS ORDERED: LORazepam 1 MG TABLET PO PRN ×2 (05:36→06:16)
[2016-12-30] MEDS ORDERED: LOPERAMIDE HCL 2 MG CAPSULE PO PRN ×2 (05:37→06:17)
[2016-12-30 07:44] LABS: BASOPHIL 1.3 % (0-2.0); EOSINOPHIL 1.1 % (0-4.5); MCH 24.1 pg (25.7-33.7); MCHC 31.3 g/dl (32.0-35.9); MEAN CELL VOLUME 77.2 fl (80-96); MEAN PLT VOLUME 8.7 fl (7.5-11.1); NEUTROPHILS 63.1 % (42.8-82.8); PLATELET COUNT 43 K/MM3 (134-434); RDW 22.9 % (11.9-15.9); WHITE BLOOD COUNT 3.6 K/mm3 (4.0-10.0)
[2016-12-30 08:41] LABS: ALBUMIN 4.3 g/dl (3.4-5.0); ALK PHOS 93 U/L (45-117); ANION GAP 9 (8-16); BILIRUBIN,TOTAL 1.4 mg/dL (0.2-1.0); CALCIUM 9.2 mg/dL (8.5-10.1); CO2 28 mmol/L (21-32); CREATININE 0.5 mg/dL (0.7-1.3); GLUCOSE,RANDOM 86 mg/dL (74-106); MAGNESIUM 1.8 mg/dL (1.8-2.4); SGOT/AST 127 U/L (15-37); SGPT/ALT 70 U/L (12-78); TOT PROT 8.7 g/dl (6.4-8.2)
[2016-12-30] MEDS: FOLIC ACID 1 MG TABLET (FP) PO SCH (09:06)
[2016-12-30] MEDS: ASPIRIN 81 MG CHEWABLE TABLETS PO SCH (09:06)
[2016-12-30] MEDS: HEPARIN NA (PORCINE) 5,000 UNITS/ML 1ML VIAL SQ SCH ×2 (09:06→21:29)
[2016-12-30] MEDS: FAMOTIDINE 20 MG/50 ML IVPB 50 ML IVPB SCH (09:07)
[2016-12-30] MEDS: THIAMINE HCL 100 MG TABLET (FP) PO SCH (09:07)
[2016-12-30] MEDS: PANTOPRAZOLE 20 MG TABLET (FP) PO SCH (09:44)
--- NOTE | 2016-12-30 10:50 | PN ---
Progress Note, Physician Chief Complaint: Pt is agitateed; pulled off restratints, wandering the hallway.Confused; says he drank only one beer.Does not allow physical examination, and does not respond to questions regarding chest pain. History of Present Illness: Patient is a 51-year-old male with past medical history of alcoholism, hyperlipidemia, gastritis, GI bleed, who presents to the emergency department today complaining of chest pain. Patient presents from [facility] where he was currently in detox. Patient states that he has had left-sided chest pain for approximately one week which has gotten worse over the past 24 hours. He states that the pain is sharp and constant. It does not change when he takes a deep breath. Admits to palpitations. Sometimes the pain makes him short of breath. He has not taken any medication for the pain. Denies fevers, chills, weakness, edema, cough, wheezing, nausea, vomiting and diarrhea. Denies smoking and recreational drug use. - Current Medication List Current Medications: Active Medications Aspirin (Asa -) 81 mg PO DAILY [facility] Last Admin: 12/30/16 09:06 Dose: 81 mg Chlordiazepoxide HCl (Librium -) 25 mg PO [id number] [facility] Stop: 12/30/16 11:01 Last Admin: 12/30/16 04:43 Dose: 25 mg Chlordiazepoxide HCl (Librium -) 15 mg PO [id number] [facility] Stop: 12/31/16 11:01 Chlordiazepoxide HCl (Librium -) 25 mg PO Q4H PRN PRN Reason: WITHDRAWAL(CONT SUBST) Stop: 12/31/16 16:16 Last Admin: 12/30/16 08:41 Dose: 25 mg Folic Acid (Folic Acid -) 1 mg PO DAILY [facility] Last Admin: 12/30/16 09:06 Dose: 1 mg Heparin Sodium (Porcine) (Heparin -) 5,000 unit SQ BID [facility] Last Admin: 12/30/16 09:06 Dose: 5,000 unit Loperamide HCl (Imodium -) 4 mg PO PRN PRN PRN Reason: DIARRHEA Morphine Sulfate (Morphine Injection -) 2 mg IVPUSH Q4H PRN PRN Reason: PAIN Last Admin: 12/28/16 22:24 Dose: 2 mg Nitroglycerin (Nitrostat -) 0.4 mg SL Q5M PRN PRN Reason: FOR CHEST PAIN Last Admin: 12/29/16 01:23 Dose: 0.4 mg Pantoprazole Sodium (Protonix -) 20 mg PO DAILY [facility] Last Admin: 12/30/16 09:44 Dose: 20 mg Thiamine HCl (Vitamin B1 -) 100 mg PO DAILY [facility] Last Admin: 12/30/16 09:07 Dose: 100 mg - Objective Vital Signs: Vital Signs Temperature 98 F 12/30/16 05:00 Pulse Rate 116 H 12/30/16 05:00 Respiratory Rate 18 12/30/16 06:00 Blood Pressure 139/88 12/30/16 05:00 O2 Sat by Pulse Oximetry (%) 96 12/30/16 06:00 Constitutional: Yes: Other (agitated; intoxicated) Eyes: Yes: WNL Psychiatric: Yes: Other (addiction) Labs: CBC, BMP 12/30/16 05:35 12/30/16 05:35 INR, PTT INR 1.12 (0.82-1.09) 12/29/16 05:35 Abnormal Lab Results 12/30/16 12/30/16 05:35 05:35 WBC 3.6 L D Hgb 11.5 L MCV 77.2 L MCH 24.1 L MCHC 31.3 L RDW 22.9 H Plt Count 43 L Sodium 133 L Chloride 96 L BUN 6 L Creatinine 0.5 L D Phosphorus 2.0 L D Total Bilirubin 1.4 H D AST 127 H Total Protein 8.7 H - ....Imaging Chest X-ray: Image Reviewed (? chronic left-sided changes) EKG: Image Reviewed (sinus tachycardia) Other: Image Reviewed (telemetry: NSR; periods of sinus tachycardia) Problem List - Problems (1) Chest pain Assessment/Plan: TNI < 0.02 x 2. Follow ECHO for LVEF, wall motion and thickness, chamber sizes, valve status. Elevated LDL cholesterol (and HDL). Pancytopenic. Stress test when no longer in acute alcoholic phase. Code(s): R07.9 - CHEST PAIN, UNSPECIFIED Qualifiers: Chest pain type: unspecified Qualified Code(s): R07.9 - Chest pain, unspecified (2) Tachycardia Code(s): R00.0 - TACHYCARDIA, UNSPECIFIED (3) ARF (acute renal failure) Code(s): N17.9 - ACUTE KIDNEY FAILURE, UNSPECIFIED (4) Alcohol abuse Assessment/Plan: Detox protocol; rehabilitation program. F/u liver studies (fatty liver 2016; elevated LFTs; continued alcohol abuse). Code(s): F10.10 - ALCOHOL ABUSE, UNCOMPLICATED (5) Hypokalemia Code(s): E87.6 - HYPOKALEMIA (6) Thrombocytopenia Code(s): D69.6 - THROMBOCYTOPENIA, UNSPECIFIED (7) Pancytopenia Assessment/Plan: f/u hematology w/u. Code(s): D61.818 - OTHER PANCYTOPENIA (8) Elevated LFTs Assessment/Plan: Hx fatty liver (2016 study). Acute/chronic alcoholism. Code(s): R79.89 - OTHER SPECIFIED ABNORMAL FINDINGS OF BLOOD CHEMISTRY (9) Hyperlipidemia Assessment/Plan: problematic using statin, given elevated LFTs and alcohol abuse, fatty liver. Code(s): E78.5 - HYPERLIPIDEMIA, UNSPECIFIED
--- NOTE | 2016-12-30 14:22 | CONSULT ---
Consult Detox [facility] Reason for Current Admission/Consult: Alcohol withdrawal sx. Referred by:: Brett Thomas Res - History History of Present Illness: 51 y/o man sent from [facility] admission to ED because of chest pain. - History Source History Provided By: Patient, Medical Record Limitations to Obtaining History: No Limitations - Alcohol/Substance Use Hx Alcohol Use: Yes (vodka) - Current Drug/Alcohol Use Alcohol Route: Oral Frequency: Daily Amount used: Vodka 1 pint Date of Last Use: 12/28/16 - Past Medical History Infectious Disease: Yes: Other (h/o TB treated 2008 per [facility] notes) Psych: Yes: Addictions (alcohol abuse) - Significant Medical Findings: Laboratory Last Values WBC 2.2 K/mm3 (4.0-10.0) L 01/04/17 05:35 RBC 4.06 M/mm3 (4.00-5.60) 01/04/17 05:35 Hgb 10.2 GM/dL (11.7-16.9) L 01/04/17 05:35 Hct 32.2 % (35.4-49) L 01/04/17 05:35 MCV 79.5 fl (80-96) L 01/04/17 05:35 MCH 25.1 pg (25.7-33.7) L 01/04/17 05:35 MCHC 31.6 g/dl (32.0-35.9) L 01/04/17 05:35 RDW 21.8 % (11.9-15.9) H 01/04/17 05:35 Plt Count 98 K/MM3 (134-434) L D 01/04/17 05:35 MPV 9.3 fl (7.5-11.1) 01/04/17 05:35 Neutrophils % 41.4 % (42.8-82.8) L D 01/04/17 05:35 Lymphocytes % 34.8 % (8-40) D 01/04/17 05:35 Monocytes % 19.3 % (3.8-10.2) H 01/04/17 05:35 Eosinophils % 2.5 % (0-4.5) 01/04/17 05:35 Basophils % 2.0 % (0-2.0) 01/04/17 05:35 Band Neutrophils 0.0 % (0-10) 12/28/16 12:21 Nucleated RBCs 1 % (0-0) H 12/29/16 05:35 Platelet Estimate Decreased (NORMAL) 12/29/16 05:35 Platelet Comment No clumping noted 12/29/16 05:35 Hypochromic-Microcytic 3+ 01/03/17 05:35 Anisocytosis 3+ 01/03/17 05:35 Microcytosis 1+ 12/28/16 12:21 Macrocytosis Few 01/03/17 05:35 Target Cells 2+ 01/03/17 05:35 INR 1.12 (0.82-1.09) 12/29/16 05:35 Sodium 139 mmol/L (136-145) 01/04/17 05:35 Potassium 3.7 mmol/L (3.5-5.1) 01/04/17 05:35 Chloride 101 mmol/L (98-107) 01/04/17 05:35 Carbon Dioxide 30 mmol/L (21-32) 01/04/17 05:35 Anion Gap 8 (8-16) 01/04/17 05:35 BUN 8 mg/dL (7-18) D 01/04/17 05:35 Creatinine 0.5 mg/dL (0.7-1.3) L 01/04/17 05:35 Creat Clearance w eGFR > 60 (>60) 01/02/17 05:50 Random Glucose 85 mg/dL (74-106) 01/04/17 05:35 Hemoglobin A1c % 6.0 % (4.8-6.0) 12/29/16 05:35 Calcium 9.0 mg/dL (8.5-10.1) 01/04/17 05:35 Phosphorus 3.7 mg/dL (2.5-4.9) 01/04/17 05:35 Magnesium 2.0 mg/dL (1.8-2.4) 01/04/17 05:35 Total Bilirubin 0.6 mg/dL (0.2-1.0) D 01/02/17 05:50 Direct Bilirubin 0.3 mg/dL (0.0-0.2) H 01/01/17 05:55 AST 123 U/L (15-37) H 01/02/17 05:50 ALT 87 U/L (12-78) H 01/02/17 05:50 Alkaline Phosphatase 62 U/L (45-117) 01/02/17 05:50 Creatine Kinase 229 IU/L (39-308) 12/28/16 12:21 Creatine Kinase Index 0.4 % (0.0-5.0) 12/28/16 12:21 CK-MB (CK-2) < 1 ng/mL (0.5-3.6) 12/28/16 12:21 Troponin I < 0.02 ng/ml (0.00-0.05) 12/29/16 00:45 Total Protein 7.2 g/dl (6.4-8.2) 01/02/17 05:50 Albumin 3.6 g/dl (3.4-5.0) 01/02/17 05:50 Triglycerides 48 mg/dL (35-160) 12/29/16 05:35 Cholesterol 231 mg/dL (50-200) H 12/29/16 05:35 Total LDL Cholesterol 104 mg/dL (5-100) H 12/29/16 05:35 HDL Cholesterol 116 mg/dL (40-60) H 12/29/16 05:35 Lipase 388 U/L (73-393) 12/28/16 12:21 labs noted CIWA Score - CIWA Score Nausea/Vomitin Muscle Tremors: 4-Moderate,w/Arms Extend Anxiety: 3 Agitation: 3 Paroxysmal Sweats: 3 Orientation: 1-Uncertain about Date Tacttile Disturbances: 1-Very Mild Itch/Numbness Auditory Disturbances: 0-None Visual Disturbances: 0-None Headache: 0-None Present CIWA-Ar Total Score: 18 Assessment Plan - Diagnosis (1) Tachycardia Status: Acute (2) Alcohol dependence with uncomplicated withdrawal Status: Acute - Medication Detox Regimen/Protocol: Librium
--- NOTE | 2016-12-30 15:33 | PN ---
Physical Exam: SUBJECTIVE: Patient seen and examined Overnight, patient was agitated and restless. Patient underwent three condition 10's today as he was combative and leaving his room. Patient given multiple doses of librium and IM ativan. OBJECTIVE: Vital Signs Period Temp Pulse Resp BP Sys/Boykin Pulse Ox Last 24 Hr 98 F-99.0 F 89-116 18-20 129-146/80-97 96-97 GENERAL: Awake and confused, in no acute distress. Patient in fish huggers HEAD: Normal with no signs of trauma. EYES: Pupils equal, round and reactive to light, extraocular movements intact, sclera anicteric, conjunctiva clear. No lid lag. EARS, NOSE, THROAT: Ears normal, nares patent, oropharynx clear without exudates. NECK: Normal range of motion, supple without lymphadenopathy, JVD, or masses. LUNGS: Breath sounds equal, clear to auscultation bilaterally. No wheezes, and no crackles. No accessory muscle use. HEART: Tachycardic, normal S1 and S2 without murmur, rub or gallop. ABDOMEN: Soft, nontender, not distended, normoactive bowel sounds, no guarding, no rebound, no masses. No hepatomegaly or splenomegaly. MUSCULOSKELETAL: Normal range of motion at all joints. No bony deformities or tenderness. No CVA tenderness. UPPER EXTREMITIES: 2+ pulses, warm, well-perfused. No cyanosis. No clubbing. No peripheral edema. RESTING TREMOR LOWER EXTREMITIES: 2+ pulses, warm, well-perfused. No calf tenderness. No peripheral edema. NEUROLOGICAL: Cranial nerves II-XII intact. Normal speech. Normal gait. PSYCHIATRIC: Cooperative. Good eye contact. Appropriate mood and affect. SKIN: Warm, dry, normal turgor, no rashes or lesions noted, normal capillary refill. Laboratory Results - last 24 hr 12/30/16 12/30/16 05:35 05:35 WBC 3.6 L D RBC 4.78 Hgb 11.5 L Hct 36.9 MCV 77.2 L MCH 24.1 L MCHC 31.3 L RDW 22.9 H Plt Count 43 L MPV 8.7 Neutrophils % 63.1 Lymphocytes % 24.5 Monocytes % 10.0 Eosinophils % 1.1 Basophils % 1.3 Sodium 133 L Potassium 3.6 Chloride 96 L Carbon Dioxide 28 Anion Gap 9 BUN 6 L Creatinine 0.5 L D Creat Clearance w eGFR > 60 Random Glucose 86 Calcium 9.2 Phosphorus 2.0 L D Magnesium 1.8 D Total Bilirubin 1.4 H D AST 127 H ALT 70 Alkaline Phosphatase 93 Total Protein 8.7 H Albumin 4.3 Active Medications Generic Name Dose Route Start Last Admin Trade Name Freq PRN Reason Stop Dose Admin Aspirin 81 mg 12/29/16 12:45 12/30/16 09:06 Asa - PO 81 mg DAILY ALPA Administration Chlordiazepoxide HCl 15 mg 12/30/16 17:00 Librium - PO 12/31/16 11:01 [id number] ALPA Chlordiazepoxide HCl 25 mg 12/28/16 16:17 12/30/16 14:39 Librium - PO 12/31/16 16:16 25 mg Q4H PRN Administration WITHDRAWAL(CONT SUBST) Folic Acid 1 mg 12/29/16 10:00 12/30/16 09:06 Folic Acid - PO 1 mg DAILY ALPA Administration Heparin Sodium (Porcine) 5,000 unit 12/28/16 22:00 12/30/16 09:06 Heparin - SQ 5,000 unit BID ALPA Administration Loperamide HCl 4 mg 12/30/16 06:17 Imodium - PO PRN PRN DIARRHEA Lorazepam 2 mg 12/30/16 15:07 Ativan Injection - IM Q4H PRN ANXIETY Nitroglycerin 0.4 mg 12/28/16 16:16 12/29/16 01:23 Nitrostat - SL 0.4 mg Q5M PRN Administration FOR CHEST PAIN Pantoprazole Sodium 20 mg 12/30/16 10:00 12/30/16 09:44 Protonix - PO 20 mg DAILY ALPA Administration Thiamine HCl 100 mg 12/29/16 10:00 12/30/16 09:07 Vitamin B1 - PO 100 mg DAILY ALPA Administration ASSESSMENT/PLAN: 51 year old M with pmh of alcohol abuse and GI bleed presenting with 1 month history of chest pain admitted for r/o acs and librium protocol. Problem List - Problems (1) Alcohol abuse Assessment/Plan: Patient combative Librium protocol Multiple doses of ativan given Ativan 2mg Q4h PRN [facility] Consult given (2) Chest pain Assessment/Plan: Admit to med surg Trops negative x3 Echo pending Sodium controlled diet Nitroglycerin q5m SL PRN Lipids- 231-cholesterol, 104-LDL, 116-HDL. Will have pt f/u outpatient with PCP A1c - 6.0 EKG unchanged from ED admission Morphine 2mg Q4h PRN for pain Cardiology consulted: Dr. Dixon, recommends stress test when delirium tremens controlled. (3) Neutropenia Assessment/Plan: Likely secondary to alcohol abuse Will monitor (4) Thrombocytopenia Assessment/Plan: Likely secondary to alcohol abuse Will monitor (5) DVT prophylaxis Assessment/Plan: Heparin 5000 units sq BID Visit type - Emergency Visit Emergency Visit: No - New Patient This patient is new to me today: No - Critical Care Critical Care patient: No
--- NOTE | 2016-12-30 16:57 | PN ---
Teaching Attending Note Name of Resident: Brett Quach ATTENDING PHYSICIAN STATEMENT I saw and evaluated the patient. I reviewed the resident's note and discussed the case with the resident. I agree with the resident's findings and plan as documented. SUBJECTIVE: Patient confused and agitated at times. OBJECTIVE: Vital Signs Period Temp Pulse Resp BP Sys/Boykin Pulse Ox Last 24 Hr 98 F-99.0 F 89-116 18-20 129-146/80-97 96-97 HEART: S1S2, tachycardic LUNGS: Clear ABDOMEN: Soft, non-tender, non-distended, normal BS EXTREMITIES: No edema ASSESSMENT AND PLAN: This is a 51-year-old man with a history of alcohol abuse who presented to the ER from [facility] with exertional chest pain for the past month. 1. Chest pain - Continue to monitor on telemetry - Troponins negative - Continue aspirin - Echo pending - Will need stress test 2. Continuous alcohol abuse with withdrawal - Increase Librium - Ativan as needed - Continue thiamine, folic acid 3. Pancytopenia, secondary to alcohol abuse - Neutropenia improved - Hemoglobin stable - Continue to monitor CBC 4. Hepatic transaminitis, secondary to alcohol abuse - AST improving 5. Hypokalemia - Improved 6. Hypomagnesemia - Improved 7. Hypophosphatemia - NeutraPhos
[2016-12-30] MEDS ORDERED: chlordiazePOXIDE 5 MG CAPSULE PO SCH (17:00)
[2016-12-30] MEDS ORDERED: MAGNESIUM OXIDE 400 MG TABLET (FP) PO ONE (17:34)
[2016-12-30] MEDS: NAPH,MB-DB/K PH,MBDB POWDER PACKET PO SCH (18:54)
[2016-12-31] MEDS: chlordiazePOXIDE HCL 25 MG CAPSULE PO SCH ×4 (05:54→22:47)
[2016-12-31 08:06] LABS: BASOPHIL 0.5 % (0-2.0); EOSINOPHIL 0.7 % (0-4.5); MCH 24.3 pg (25.7-33.7); MCHC 31.2 g/dl (32.0-35.9); MEAN CELL VOLUME 77.8 fl (80-96); MEAN PLT VOLUME 9.4 fl (7.5-11.1); NEUTROPHILS 73.5 % (42.8-82.8); PLATELET COUNT 42 K/MM3 (134-434); RDW 22.6 % (11.9-15.9); WHITE BLOOD COUNT 4.7 K/mm3 (4.0-10.0)
[2016-12-31 08:45] LABS: ANION GAP 9 (8-16); CO2 27 mmol/L (21-32); GLUCOSE,RANDOM 67 mg/dL (74-106); MAGNESIUM 1.9 mg/dL (1.8-2.4); SGOT/AST 112 U/L (15-37)
[2016-12-31 08:48] LABS: ALK PHOS 78 U/L (45-117); BILIRUBIN,TOTAL 1.1 mg/dL (0.2-1.0); CREATININE 0.5 mg/dL (0.7-1.3); PHOSPHOROUS 2.6 mg/dL (2.5-4.9); SGPT/ALT 66 U/L (12-78)
[2016-12-31] MEDS: PANTOPRAZOLE 20 MG TABLET (FP) PO SCH (09:13)
[2016-12-31] MEDS: FOLIC ACID 1 MG TABLET (FP) PO SCH (09:13)
[2016-12-31] MEDS: THIAMINE HCL 100 MG TABLET (FP) PO SCH (09:13)
[2016-12-31] MEDS: HEPARIN NA (PORCINE) 5,000 UNITS/ML 1ML VIAL SQ SCH ×2 (09:13→22:47)
[2016-12-31] MEDS: ASPIRIN 81 MG CHEWABLE TABLETS PO SCH (09:13)
[2016-12-31] MEDS: NAPH,MB-DB/K PH,MBDB POWDER PACKET PO SCH ×3 (09:13→17:13)
[2016-12-31] MEDS ORDERED: POTASSIUM CHLORIDE TABS 20 MEQ TABLET.ER (FP) PO ONE (10:00)
--- NOTE | 2016-12-31 11:01 | PN ---
Physical Exam: SUBJECTIVE: Patient seen and examined Patient agitated overnight. Received 8 mg ativan. Patient calm this morning. Still complains of chest pain/pressure OBJECTIVE: Vital Signs Period Temp Pulse Resp BP Sys/Boykin Pulse Ox Last 24 Hr 98 F-98.4 F 108-125 18-20 123-146/75-97 98 GENERAL: Awake and confused, in no acute distress. Patient in arm restraints HEAD: Normal with no signs of trauma. EYES: Pupils equal, round and reactive to light, extraocular movements intact, sclera anicteric, conjunctiva clear. No lid lag. EARS, NOSE, THROAT: Ears normal, nares patent, oropharynx clear without exudates. NECK: Normal range of motion, supple without lymphadenopathy, JVD, or masses. LUNGS: Breath sounds equal, clear to auscultation bilaterally. No wheezes, and no crackles. No accessory muscle use. HEART: Tachycardic, normal S1 and S2 without murmur, rub or gallop. ABDOMEN: Soft, nontender, not distended, normoactive bowel sounds, no guarding, no rebound, no masses. No hepatomegaly or splenomegaly. MUSCULOSKELETAL: Normal range of motion at all joints. No bony deformities or tenderness. No CVA tenderness. UPPER EXTREMITIES: 2+ pulses, warm, well-perfused. No cyanosis. No clubbing. No peripheral edema. + resting tremor LOWER EXTREMITIES: 2+ pulses, warm, well-perfused. No calf tenderness. No peripheral edema. NEUROLOGICAL: Cranial nerves II-XII intact. Normal speech. Normal gait. PSYCHIATRIC: Cooperative. Good eye contact. Appropriate mood and affect. SKIN: Warm, dry, normal turgor, no rashes or lesions noted, normal capillary refill. Laboratory Results - last 24 hr 12/31/16 12/31/16 05:35 05:35 WBC 4.7 D RBC 4.76 Hgb 11.6 L Hct 37.1 MCV 77.8 L MCH 24.3 L MCHC 31.2 L RDW 22.6 H Plt Count 42 L MPV 9.4 Neutrophils % 73.5 Lymphocytes % 14.5 D Monocytes % 10.8 H Eosinophils % 0.7 Basophils % 0.5 Sodium 135 L Potassium 3.3 L Chloride 99 Carbon Dioxide 27 Anion Gap 9 BUN 12 D Creatinine 0.5 L Creat Clearance w eGFR > 60 Random Glucose 67 L D Calcium 9.0 Phosphorus 2.6 D Magnesium 1.9 Total Bilirubin 1.1 H D AST 112 H ALT 66 Alkaline Phosphatase 78 Total Protein 8.0 Albumin 4.0 Active Medications Generic Name Dose Route Start Last Admin Trade Name Freq PRN Reason Stop Dose Admin Aspirin 81 mg 12/29/16 12:45 12/31/16 09:13 Asa - PO 81 mg DAILY ALPA Administration Chlordiazepoxide HCl 25 mg 12/28/16 16:17 12/30/16 14:39 Librium - PO 12/31/16 16:16 25 mg Q4H PRN Administration WITHDRAWAL(CONT SUBST) Chlordiazepoxide HCl 50 mg 12/30/16 17:00 12/31/16 05:54 Librium - PO 50 mg [id number] ALPA Administration Folic Acid 1 mg 12/29/16 10:00 12/31/16 09:13 Folic Acid - PO 1 mg DAILY ALPA Administration Heparin Sodium (Porcine) 5,000 unit 12/28/16 22:00 12/31/16 09:13 Heparin - SQ 5,000 unit BID ALPA Administration Loperamide HCl 4 mg 12/30/16 06:17 Imodium - PO PRN PRN DIARRHEA Lorazepam 2 mg 12/30/16 15:07 12/30/16 23:24 Ativan Injection - IM 2 mg Q4H PRN Administration ANXIETY Nitroglycerin 0.4 mg 12/28/16 16:16 12/29/16 01:23 Nitrostat - SL 0.4 mg Q5M PRN Administration FOR CHEST PAIN Pantoprazole Sodium 20 mg 12/30/16 10:00 12/31/16 09:13 Protonix - PO 20 mg DAILY ALPA Administration Potassium Phos/Sodium Phos 1 packet 12/30/16 17:45 12/31/16 09:13 Phos-Nak Packet - PO 1 packet TIDCM ALPA Administration Thiamine HCl 100 mg 12/29/16 10:00 12/31/16 09:13 Vitamin B1 - PO 100 mg DAILY ALPA Administration ASSESSMENT/PLAN: 51 year old M with pmh of alcohol abuse and GI bleed presenting with 1 month history of chest pain admitted for r/o acs and librium protocol. Dispo: Patient will undergo stress test once he becomes less tachycardic, agitated, and confused. Problem List - Problems (1) Alcohol abuse Assessment/Plan: Patient combative overnight Librium protocol 50mg Q6hr Ativan 2mg Q4h PRN 1:1 discontinued Will wean off restraints once patient calms down (2) Chest pain Assessment/Plan: Admit to med surg Trops negative x3 Echo pending Sodium controlled diet Nitroglycerin q5m SL PRN Lipids- 231-cholesterol, 104-LDL, 116-HDL. Will have pt f/u outpatient with PCP A1c - 6.0 EKG unchanged from ED admission Morphine 2mg Q4h PRN for pain Cardiology consulted: Dr. Dixon, recommends stress test when delirium tremens controlled. (3) Neutropenia Assessment/Plan: resolved Likely secondary to alcohol abuse (4) Thrombocytopenia Assessment/Plan: Likely secondary to alcohol abuse Will continue to monitor (5) DVT prophylaxis Assessment/Plan: Heparin 5000 units sq BID Visit type - Emergency Visit Emergency Visit: No - New Patient This patient is new to me today: No - Critical Care Critical Care patient: No
[2016-12-31] MEDS: chlordiazePOXIDE HCL 25 MG CAPSULE PO PRN (14:42)
--- NOTE | 2016-12-31 15:04 | PN ---
Teaching Attending Note Name of Resident: Brett Quach ATTENDING PHYSICIAN STATEMENT I saw and evaluated the patient. I reviewed the resident's note and discussed the case with the resident. I agree with the resident's findings and plan as documented. SUBJECTIVE: Patient is calm and less confused today. OBJECTIVE: Vital Signs Period Temp Pulse Resp BP Sys/Boykin Pulse Ox Last 24 Hr 98 F-98.4 F 108-125 18-20 123-146/60-97 97-98 HEART: S1S2, tachycardic LUNGS: Clear ABDOMEN: Soft, non-tender, non-distended, normal BS EXTREMITIES: No edema ASSESSMENT AND PLAN: This is a 51-year-old man with a history of alcohol abuse who presented to the ER from [facility] with exertional chest pain for the past month. 1. Chest pain - Troponins negative - Continue aspirin - Echo pending - Plan for stress test 2. Continuous alcohol abuse with withdrawal - Continue Librium, Ativan as needed, thiamine, folic acid 3. Pancytopenia, secondary to alcohol abuse - Neutropenia improved - Hemoglobin stable - Platelets stable - Continue to monitor CBC 4. Hepatic transaminitis, secondary to alcohol abuse - AST improving 5. Hypokalemia - Replete potassium 6. Hypomagnesemia - Improved 7. Hypophosphatemia - Improved
[2017-01-01] MEDS: chlordiazePOXIDE HCL 25 MG CAPSULE PO SCH ×5 (05:23→22:18)
--- NOTE | 2017-01-01 06:53 | PN ---
Progress Note, Physician Chief Complaint: Pt is calmer; restrained. He thinks he is in someone's house; does not know he is being treated for intoxication. He denies chest pain. History of Present Illness: Patient is a 51-year-old male with past medical history of alcoholism, hyperlipidemia, gastritis, GI bleed, who presents to the emergency department today complaining of chest pain. Patient presents from [facility] where he was currently in detox. Patient states that he has had left-sided chest pain for approximately one week which has gotten worse over the past 24 hours. He states that the pain is sharp and constant. It does not change when he takes a deep breath. Admits to palpitations. Sometimes the pain makes him short of breath. He has not taken any medication for the pain. Denies fevers, chills, weakness, edema, cough, wheezing, nausea, vomiting and diarrhea. Denies smoking and recreational drug use. - Current Medication List Current Medications: Active Medications Aspirin (Asa -) 81 mg PO DAILY [facility] Last Admin: 12/31/16 09:13 Dose: 81 mg Chlordiazepoxide HCl (Librium -) 50 mg PO [id number] [facility] Last Admin: 01/01/17 05:23 Dose: 50 mg Folic Acid (Folic Acid -) 1 mg PO DAILY [facility] Last Admin: 12/31/16 09:13 Dose: 1 mg Heparin Sodium (Porcine) (Heparin -) 5,000 unit SQ BID [facility] Last Admin: 12/31/16 22:47 Dose: 5,000 unit Loperamide HCl (Imodium -) 4 mg PO PRN PRN PRN Reason: DIARRHEA Lorazepam (Ativan Injection -) 2 mg IM Q4H PRN PRN Reason: ANXIETY Last Admin: 12/30/16 23:24 Dose: 2 mg Nitroglycerin (Nitrostat -) 0.4 mg SL Q5M PRN PRN Reason: FOR CHEST PAIN Last Admin: 12/29/16 01:23 Dose: 0.4 mg Pantoprazole Sodium (Protonix -) 20 mg PO DAILY [facility] Last Admin: 12/31/16 09:13 Dose: 20 mg Thiamine HCl (Vitamin B1 -) 100 mg PO DAILY [facility] Last Admin: 12/31/16 09:13 Dose: 100 mg - Objective Vital Signs: Vital Signs Temperature 97.9 F 01/01/17 06:00 Pulse Rate 103 H 01/01/17 06:00 Respiratory Rate 20 01/01/17 06:00 Blood Pressure 131/81 01/01/17 06:00 O2 Sat by Pulse Oximetry (%) 98 01/01/17 02:00 Constitutional: Yes: Calm Eyes: Yes: WNL HENT: Yes: WNL Neck: Yes: WNL Cardiovascular: Yes: Tachycardia Respiratory: Yes: WNL Gastrointestinal: Yes: WNL Genitourinary: Yes: Anuria Breast(s): Yes: WNL Musculoskeletal: Yes: WNL Extremities: Yes: WNL Edema: No Peripheral Pulses WNL: Yes Integumentary: Yes: WNL Neurological: Yes: Tremors Psychiatric: Yes: Other (alcoholic) Labs: CBC, BMP 12/31/16 05:35 12/31/16 05:35 INR, PTT INR 1.12 (0.82-1.09) 12/29/16 05:35 - ....Imaging Chest X-ray: Image Reviewed (?chronic left-sided changes) EKG: Image Reviewed (sinus tachycardia) Problem List - Problems (1) Chest pain Assessment/Plan: TNI < 0.02 x 2. Follow ECHO for LVEF, wall motion and thickness, chamber sizes, valve status. Elevated LDL cholesterol (and HDL). Pancytopenic. Stress test when no longer in acute alcoholic phase. Code(s): R07.9 - CHEST PAIN, UNSPECIFIED Qualifiers: Chest pain type: unspecified Qualified Code(s): R07.9 - Chest pain, unspecified (2) Tachycardia Code(s): R00.0 - TACHYCARDIA, UNSPECIFIED (3) ARF (acute renal failure) Code(s): N17.9 - ACUTE KIDNEY FAILURE, UNSPECIFIED (4) Alcohol abuse Assessment/Plan: Detox protocol; rehabilitation program. F/u liver studies (fatty liver 2016; elevated LFTs; continued alcohol abuse). Code(s): F10.10 - ALCOHOL ABUSE, UNCOMPLICATED (5) Hypokalemia Code(s): E87.6 - HYPOKALEMIA (6) Thrombocytopenia Code(s): D69.6 - THROMBOCYTOPENIA, UNSPECIFIED (7) Pancytopenia Assessment/Plan: f/u hematology w/u. Code(s): D61.818 - OTHER PANCYTOPENIA (8) Elevated LFTs Assessment/Plan: Hx fatty liver (2016 study). Acute/chronic alcoholism. Code(s): R79.89 - OTHER SPECIFIED ABNORMAL FINDINGS OF BLOOD CHEMISTRY (9) Hyperlipidemia Assessment/Plan: problematic using statin, given elevated LFTs and alcohol abuse, fatty liver. Code(s): E78.5 - HYPERLIPIDEMIA, UNSPECIFIED
[2017-01-01 08:06] LABS: BASOPHIL 1.9 % (0-2.0); EOSINOPHIL 2.2 % (0-4.5); MCH 24.7 pg (25.7-33.7); MCHC 31.4 g/dl (32.0-35.9); MEAN CELL VOLUME 78.8 fl (80-96); MEAN PLT VOLUME 9.7 fl (7.5-11.1); NEUTROPHILS 57.5 % (42.8-82.8); PLATELET COUNT 57 K/MM3 (134-434); RDW 22.4 % (11.9-15.9); WHITE BLOOD COUNT 3.6 K/mm3 (4.0-10.0)
--- NOTE | 2017-01-01 08:39 | PN ---
Teaching Attending Note Name of Resident: Brett Quach ATTENDING PHYSICIAN STATEMENT I saw and evaluated the patient. I reviewed the resident's note and discussed the case with the resident. I agree with the resident's findings and plan as documented. SUBJECTIVE: Patient is awake and alert. Confusion continues to improve. OBJECTIVE: Vital Signs Period Temp Pulse Resp BP Sys/Boykin Pulse Ox Last 24 Hr 97.7 F-98 F 96-125 18-20 109-138/60-81 97-98 HEART: S1S2, RRR LUNGS: Clear ABDOMEN: Soft, non-tender, non-distended, normal BS EXTREMITIES: No edema ASSESSMENT AND PLAN: This is a 51-year-old man with a history of alcohol abuse who presented to the ER from [facility] with exertional chest pain for the past month. 1. Chest pain - Troponins negative - Continue aspirin - Echo pending - Plan for stress test once alcohol withdrawal resolves 2. Alcohol withdrawal - Improving - Taper Librium 3. Continuous alcohol abuse - Continue thiamine, folic acid 4. Pancytopenia, secondary to alcohol abuse - Neutropenia improved - Hemoglobin stable - Platelets improving - Continue to monitor 5. Hepatic transaminitis, secondary to alcohol abuse 6. Hypokalemia - Improved 7. Hypomagnesemia - Improved 8. Hypophosphatemia - Improved
[2017-01-01 08:42] LABS: ANION GAP 9 (8-16); CALCIUM 8.6 mg/dL (8.5-10.1); CO2 26 mmol/L (21-32); CREATININE 0.5 mg/dL (0.7-1.3); GLUCOSE,RANDOM 81 mg/dL (74-106)
[2017-01-01 08:46] LABS: ALBUMIN 3.6 g/dl (3.4-5.0); BILIRUBIN,DIRECT 0.3 mg/dL (0.0-0.2); MAGNESIUM 1.9 mg/dL (1.8-2.4); PHOSPHOROUS 4.1 mg/dL (2.5-4.9)
[2017-01-01 08:48] LABS: TOT PROT 7.7 g/dl (6.4-8.2)
[2017-01-01] MEDS ORDERED: chlordiazePOXIDE HCL 25 MG CAPSULE PO PRN (10:44)
--- NOTE | 2017-01-01 11:01 | PN ---
Physical Exam: SUBJECTIVE: Patient seen and examined Patient's confusion is improving. CIWA score of 10 this morning. Patient is awake and alert in bed and eating comfortably. OBJECTIVE: Vital Signs Period Temp Pulse Resp BP Sys/Boykin Pulse Ox Last 24 Hr 97.7 F-97.9 F 96-103 18-20 109-131/60-81 98-98 GENERAL: Awake and confused, in no acute distress. Patient in arm restraints HEAD: Normal with no signs of trauma. EYES: Pupils equal, round and reactive to light, extraocular movements intact, sclera anicteric, conjunctiva clear. No lid lag. EARS, NOSE, THROAT: Ears normal, nares patent, oropharynx clear without exudates. NECK: Normal range of motion, supple without lymphadenopathy, JVD, or masses. LUNGS: Breath sounds equal, clear to auscultation bilaterally. No wheezes, and no crackles. No accessory muscle use. HEART: Tachycardic, normal S1 and S2 without murmur, rub or gallop. ABDOMEN: Soft, nontender, not distended, normoactive bowel sounds, no guarding, no rebound, no masses. No hepatomegaly or splenomegaly. MUSCULOSKELETAL: Normal range of motion at all joints. No bony deformities or tenderness. No CVA tenderness. UPPER EXTREMITIES: 2+ pulses, warm, well-perfused. No cyanosis. No clubbing. No peripheral edema. + resting tremor (improving) LOWER EXTREMITIES: 2+ pulses, warm, well-perfused. No calf tenderness. No peripheral edema. NEUROLOGICAL: Cranial nerves II-XII intact. Normal speech. Normal gait. PSYCHIATRIC: Cooperative. Good eye contact. Appropriate mood and affect. SKIN: Warm, dry, normal turgor, no rashes or lesions noted, normal capillary refill. Laboratory Results - last 24 hr 01/01/17 01/01/17 01/01/17 05:55 05:55 05:55 WBC 3.6 L RBC 4.52 Hgb 11.2 L Hct 35.6 MCV 78.8 L MCH 24.7 L MCHC 31.4 L RDW 22.4 H Plt Count 57 L D MPV 9.7 Neutrophils % 57.5 D Lymphocytes % 24.6 D Monocytes % 13.8 H Eosinophils % 2.2 D Basophils % 1.9 D Sodium 136 Potassium 3.5 Chloride 101 Carbon Dioxide 26 Anion Gap 9 BUN 17 D Creatinine 0.5 L Random Glucose 81 D Calcium 8.6 Phosphorus 4.1 D Magnesium 1.9 Total Bilirubin 1.0 Direct Bilirubin 0.3 H AST 126 H ALT 74 Alkaline Phosphatase 73 Total Protein 7.7 Albumin 3.6 Active Medications Generic Name Dose Route Start Last Admin Trade Name Freq PRN Reason Stop Dose Admin Aspirin 81 mg 12/29/16 12:45 12/31/16 09:13 Asa - PO 81 mg DAILY ALPA Administration Chlordiazepoxide HCl 25 mg 01/01/17 10:44 Librium - PO 01/04/17 10:43 Q4H PRN WITHDRAWAL(CONT SUBST) Chlordiazepoxide HCl 25 mg 01/01/17 11:00 Librium - PO 01/02/17 05:01 [id number] ALPA Chlordiazepoxide HCl 15 mg 01/02/17 11:00 Librium - PO 01/03/17 05:01 [id number] ALPA Folic Acid 1 mg 12/29/16 10:00 12/31/16 09:13 Folic Acid - PO 1 mg DAILY ALPA Administration Heparin Sodium (Porcine) 5,000 unit 12/28/16 22:00 12/31/16 22:47 Heparin - SQ 5,000 unit BID ALPA Administration Loperamide HCl 4 mg 12/30/16 06:17 Imodium - PO PRN PRN DIARRHEA Lorazepam 2 mg 12/30/16 15:07 12/30/16 23:24 Ativan Injection - IM 2 mg Q4H PRN Administration ANXIETY Nitroglycerin 0.4 mg 12/28/16 16:16 12/29/16 01:23 Nitrostat - SL 0.4 mg Q5M PRN Administration FOR CHEST PAIN Pantoprazole Sodium 20 mg 12/30/16 10:00 12/31/16 09:13 Protonix - PO 20 mg DAILY ALPA Administration Thiamine HCl 100 mg 12/29/16 10:00 12/31/16 09:13 Vitamin B1 - PO 100 mg DAILY ALPA Administration ASSESSMENT/PLAN: 51 year old M with pmh of alcohol abuse and GI bleed presenting with 1 month history of chest pain admitted for r/o acs and librium protocol. Dispo: Patient will undergo stress test once he becomes less tachycardic, agitated, and confused. Problem List - Problems (1) Alcohol abuse Assessment/Plan: Patient appears less confused and agitated. Will decrease dose of librium Librium protocol 25mg Q6hr Librium 25 mg Q4hr PRN Ativan 2mg Q4h PRN 1:1 discontinued Restraints removed (2) Chest pain Assessment/Plan: Admit to med surg Trops negative x3 Echo pending Sodium controlled diet Nitroglycerin q5m SL PRN Lipids- 231-cholesterol, 104-LDL, 116-HDL. Will have pt f/u outpatient with PCP A1c - 6.0 EKG unchanged from ED admission Morphine 2mg Q4h PRN for pain Cardiology consulted: Dr. Dixon, recommends stress test when delirium tremens controlled. (3) Neutropenia Assessment/Plan: Stable Likely secondary to alcohol abuse (4) Thrombocytopenia Assessment/Plan: Improving Likely secondary to alcohol abuse Will continue to monitor (5) DVT prophylaxis Assessment/Plan: Heparin 5000 units sq BID Visit type - Emergency Visit Emergency Visit: No - New Patient This patient is new to me today: No - Critical Care Critical Care patient: No
[2017-01-01] MEDS: ASPIRIN 81 MG CHEWABLE TABLETS PO SCH (11:02)
[2017-01-01] MEDS: THIAMINE HCL 100 MG TABLET (FP) PO SCH (11:02)
[2017-01-01] MEDS: PANTOPRAZOLE 20 MG TABLET (FP) PO SCH (11:02)
[2017-01-01] MEDS: FOLIC ACID 1 MG TABLET (FP) PO SCH (11:02)
[2017-01-01] MEDS: HEPARIN NA (PORCINE) 5,000 UNITS/ML 1ML VIAL SQ SCH ×2 (11:06→22:18)
[2017-01-02] MEDS: chlordiazePOXIDE HCL 25 MG CAPSULE PO SCH (06:31)
[2017-01-02 07:50] LABS: BASOPHIL 1.5 % (0-2.0); EOSINOPHIL 2.2 % (0-4.5); MCH 24.5 pg (25.7-33.7); MEAN CELL VOLUME 79.1 fl (80-96); MEAN PLT VOLUME 8.8 fl (7.5-11.1); NEUTROPHILS 57.9 % (42.8-82.8); PLATELET COUNT 73 K/MM3 (134-434); WHITE BLOOD COUNT 3.7 K/mm3 (4.0-10.0)
[2017-01-02 08:21] LABS: ALBUMIN 3.6 g/dl (3.4-5.0); ALK PHOS 62 U/L (45-117); ANION GAP 7 (8-16); BILIRUBIN,TOTAL 0.6 mg/dL (0.2-1.0); CALCIUM 8.4 mg/dL (8.5-10.1); CO2 28 mmol/L (21-32); CREATININE 0.6 mg/dL (0.7-1.3); GLUCOSE,RANDOM 85 mg/dL (74-106); MAGNESIUM 1.8 mg/dL (1.8-2.4); SGOT/AST 123 U/L (15-37); SGPT/ALT 87 U/L (12-78); TOT PROT 7.2 g/dl (6.4-8.2)
--- NOTE | 2017-01-02 08:21 | PN ---
Physical Exam: SUBJECTIVE: Patient seen and examined. He denies chest pain. The patient is a 51-year-old man with a history of alcohol abuse who presented to the ER from [facility] with exertional chest pain for the past month. OBJECTIVE: Vital Signs Period Temp Pulse Resp BP Sys/Boykin Pulse Ox Last 24 Hr 97.1 F-98.7 F 74-101 19-20 90-130/58-82 HEART: S1S2, RRR LUNGS: Clear ABDOMEN: Soft, non-tender, non-distended, normal BS EXTREMITIES: No edema Laboratory Results - last 24 hr 01/01/17 01/01/17 01/02/17 05:55 05:55 05:50 WBC 3.7 L RBC 4.22 Hgb 10.3 L Hct 33.4 L MCV 79.1 L MCH 24.5 L MCHC 31.0 L RDW 22.0 H Plt Count 73 L D MPV 8.8 Neutrophils % 57.9 Lymphocytes % 23.4 Monocytes % 15.0 H Eosinophils % 2.2 Basophils % 1.5 Sodium 136 Potassium 3.5 Chloride 101 Carbon Dioxide 26 Anion Gap 9 BUN 17 D Creatinine 0.5 L Random Glucose 81 D Calcium 8.6 Phosphorus 4.1 D Magnesium 1.9 Total Bilirubin 1.0 Direct Bilirubin 0.3 H AST 126 H ALT 74 Alkaline Phosphatase 73 Total Protein 7.7 Albumin 3.6 Active Medications Generic Name Dose Route Start Last Admin Trade Name Freq PRN Reason Stop Dose Admin Aspirin 81 mg 12/29/16 12:45 01/01/17 11:02 Asa - PO 81 mg DAILY ALPA Administration Chlordiazepoxide HCl 25 mg 01/01/17 10:44 Librium - PO 01/04/17 10:43 Q4H PRN WITHDRAWAL(CONT SUBST) Chlordiazepoxide HCl 15 mg 01/02/17 11:00 Librium - PO 01/03/17 05:01 [id number] ALPA Folic Acid 1 mg 12/29/16 10:00 01/01/17 11:02 Folic Acid - PO 1 mg DAILY ALPA Administration Heparin Sodium (Porcine) 5,000 unit 12/28/16 22:00 01/01/17 22:18 Heparin - SQ 5,000 unit BID ALPA Administration Loperamide HCl 4 mg 12/30/16 06:17 Imodium - PO PRN PRN DIARRHEA Lorazepam 2 mg 12/30/16 15:07 12/30/16 23:24 Ativan Injection - IM 2 mg Q4H PRN Administration ANXIETY Nitroglycerin 0.4 mg 12/28/16 16:16 12/29/16 01:23 Nitrostat - SL 0.4 mg Q5M PRN Administration FOR CHEST PAIN Pantoprazole Sodium 20 mg 12/30/16 10:00 01/01/17 11:02 Protonix - PO 20 mg DAILY ALPA Administration Thiamine HCl 100 mg 12/29/16 10:00 01/01/17 11:02 Vitamin B1 - PO 100 mg DAILY ALPA Administration ASSESSMENT/PLAN: #CARDIOVASCULAR Chest pain, resolved Serial troponins were negative Continue aspirin Plan for stress test once alcohol withdrawal and associated tachycardia resolves #ALCOHOL ABUSE AND WITHDRAWAL Improving Taper Librium Continue thiamine, folic acid #HEMATOLOGY Pancytopenia, secondary to alcohol abuse #Neutropenia improved Hemoglobin stable Platelets improving Continue to monitor #GI Hepatic transaminitis, secondary to alcohol abuse Stable #FEN Hypokalemia Hypomagnesemia Hypophosphatemia All improved Will continue to replete prn Continue low Na diet #PROPHYLAXIS Protonix Heparin Visit type - Emergency Visit Emergency Visit: Yes ED Registration Date: 12/29/16 Care time: The patient presented to the Emergency Department on the above date and was hospitalized for further evaluation of their emergent condition. - New Patient This patient is new to me today: Yes Date on this admission: 01/02/17 - Critical Care Critical Care patient: No
[2017-01-02] MEDS: ASPIRIN 81 MG CHEWABLE TABLETS PO SCH (10:23)
[2017-01-02] MEDS: THIAMINE HCL 100 MG TABLET (FP) PO SCH (10:23)
[2017-01-02] MEDS: FOLIC ACID 1 MG TABLET (FP) PO SCH (10:23)
[2017-01-02] MEDS: PANTOPRAZOLE 20 MG TABLET (FP) PO SCH (10:23)
[2017-01-02] MEDS: chlordiazePOXIDE 5 MG CAPSULE PO SCH ×3 (10:24→22:19)
[2017-01-02] MEDS: HEPARIN NA (PORCINE) 5,000 UNITS/ML 1ML VIAL SQ SCH ×2 (10:24→22:19)
[2017-01-03 07:23] LABS: MCH 24.9 pg (25.7-33.7); MCHC 31.1 g/dl (32.0-35.9); MEAN PLT VOLUME 8.9 fl (7.5-11.1); PLATELET COUNT 77 K/MM3 (134-434); RDW 22.7 % (11.9-15.9); WHITE BLOOD COUNT 2.9 K/mm3 (4.0-10.0)
[2017-01-03] MEDS ORDERED: chlordiazePOXIDE 5 MG CAPSULE PO SCH (07:30)
[2017-01-03 07:33] LABS: ANION GAP 10 (8-16); CALCIUM 8.5 mg/dL (8.5-10.1); CO2 27 mmol/L (21-32); CREATININE 0.5 mg/dL (0.7-1.3); GLUCOSE,RANDOM 100 mg/dL (74-106); PHOSPHOROUS 3.4 mg/dL (2.5-4.9)
[2017-01-03 08:55] LABS: ANISOCYTOSIS 3+
[2017-01-03 08:56] LABS: HYPOCHROMIA 3+; TARGET CELLS 2+
[2017-01-03] MEDS: THIAMINE HCL 100 MG TABLET (FP) PO SCH (10:19)
[2017-01-03] MEDS: HEPARIN NA (PORCINE) 5,000 UNITS/ML 1ML VIAL SQ SCH ×2 (10:19→21:30)
[2017-01-03] MEDS: ASPIRIN 81 MG CHEWABLE TABLETS PO SCH (10:19)
[2017-01-03] MEDS: PANTOPRAZOLE 20 MG TABLET (FP) PO SCH (10:19)
[2017-01-03] MEDS: FOLIC ACID 1 MG TABLET (FP) PO SCH (10:19)
--- NOTE | 2017-01-03 11:17 | PN ---
Teaching Attending Note Name of Resident: Brett Quach ATTENDING PHYSICIAN STATEMENT I saw and evaluated the patient. I reviewed the resident's note and discussed the case with the resident. I agree with the resident's findings and plan as documented. SUBJECTIVE: No complaints OBJECTIVE: Vitals noted Tachycardia resolved ASSESSMENT AND PLAN: TTE and Stress test today Taper librium after stress test Anticipate discharge to [facility] pending above results See resident note for full details
--- NOTE | 2017-01-03 16:33 | PN ---
Physical Exam: SUBJECTIVE: Patient seen and examined No acute events overnight. Patient has no close this morning. OBJECTIVE: Vital Signs Period Temp Pulse Resp BP Sys/Boykin Pulse Ox Last 24 Hr 97.2 F-98 F 68-93 18-20 103-132/70-80 98-99 GENERAL: Awake and confused, in no acute distress. HEAD: Normal with no signs of trauma. EYES: Pupils equal, round and reactive to light, extraocular movements intact, sclera anicteric, conjunctiva clear. No lid lag. EARS, NOSE, THROAT: Ears normal, nares patent, oropharynx clear without exudates. NECK: Normal range of motion, supple without lymphadenopathy, JVD, or masses. LUNGS: Breath sounds equal, clear to auscultation bilaterally. No wheezes, and no crackles. No accessory muscle use. HEART: Regular rate/rhythm, normal S1 and S2 without murmur, rub or gallop. ABDOMEN: Soft, nontender, not distended, normoactive bowel sounds, no guarding, no rebound, no masses. No hepatomegaly or splenomegaly. MUSCULOSKELETAL: Normal range of motion at all joints. No bony deformities or tenderness. No CVA tenderness. UPPER EXTREMITIES: 2+ pulses, warm, well-perfused. No cyanosis. No clubbing. No peripheral edema. LOWER EXTREMITIES: 2+ pulses, warm, well-perfused. No calf tenderness. No peripheral edema. NEUROLOGICAL: Cranial nerves II-XII intact. Normal speech. Normal gait. PSYCHIATRIC: Cooperative. Good eye contact. Appropriate mood and affect. SKIN: Warm, dry, normal turgor, no rashes or lesions noted, normal capillary refill. Laboratory Results - last 24 hr 01/03/17 01/03/17 05:35 05:35 WBC 2.9 L RBC 3.99 L Hgb 9.9 L Hct 31.9 L MCV 80.0 MCH 24.9 L MCHC 31.1 L RDW 22.7 H Plt Count 77 L MPV 8.9 Hypochromic-Microcytic 3+ Anisocytosis 3+ Macrocytosis Few Target Cells 2+ Sodium 140 Potassium 3.7 Chloride 103 Carbon Dioxide 27 Anion Gap 10 BUN 14 Creatinine 0.5 L Random Glucose 100 Calcium 8.5 Phosphorus 3.4 Magnesium 2.0 Active Medications Generic Name Dose Route Start Last Admin Trade Name Freq PRN Reason Stop Dose Admin Aspirin 81 mg 12/29/16 12:45 01/03/17 10:19 Asa - PO 81 mg DAILY ALPA Administration Chlordiazepoxide HCl 15 mg 01/03/17 16:30 Librium - PO Q4H ALPA Folic Acid 1 mg 12/29/16 10:00 01/03/17 10:19 Folic Acid - PO 1 mg DAILY ALPA Administration Heparin Sodium (Porcine) 5,000 unit 12/28/16 22:00 01/03/17 10:19 Heparin - SQ 5,000 unit BID ALPA Administration Loperamide HCl 4 mg 12/30/16 06:17 Imodium - PO PRN PRN DIARRHEA Lorazepam 2 mg 12/30/16 15:07 12/30/16 23:24 Ativan Injection - IM 2 mg Q4H PRN Administration ANXIETY Nitroglycerin 0.4 mg 12/28/16 16:16 12/29/16 01:23 Nitrostat - SL 0.4 mg Q5M PRN Administration FOR CHEST PAIN Pantoprazole Sodium 20 mg 12/30/16 10:00 01/03/17 10:19 Protonix - PO 20 mg DAILY ALPA Administration Thiamine HCl 100 mg 12/29/16 10:00 01/03/17 10:19 Vitamin B1 - PO 100 mg DAILY ALPA Administration ASSESSMENT/PLAN: 51 year old M with pmh of alcohol abuse and GI bleed presenting with 1 month history of chest pain admitted for r/o acs and librium protocol. Dispo: Patient d/c plan for tomorrow post stress test. Problem List - Problems (1) Alcohol abuse Assessment/Plan: Patient appears less confused and agitated. Librium 15mg Q4h ALPA Ativan 2mg Q4h PRN 1:1 discontinued Restraints removed (2) Chest pain Assessment/Plan: Admit to med surg Trops negative x3 Echo pending Sodium controlled diet Nitroglycerin q5m SL PRN Lipids- 231-cholesterol, 104-LDL, 116-HDL. Will have pt f/u outpatient with PCP A1c - 6.0 EKG unchanged from ED admission Morphine 2mg Q4h PRN for pain Stress test planned for tomorrow Cardiology consulted: Dr. Dixon (3) Neutropenia Assessment/Plan: Stable Likely secondary to alcohol abuse (4) Thrombocytopenia Assessment/Plan: Stable Likely secondary to alcohol abuse Will continue to monitor (5) DVT prophylaxis Assessment/Plan: Heparin 5000 units sq BID Visit type - Emergency Visit Emergency Visit: No - New Patient This patient is new to me today: No - Critical Care Critical Care patient: No
[2017-01-03] MEDS: chlordiazePOXIDE 5 MG CAPSULE PO SCH ×3 (17:25→21:30)
[2017-01-04] MEDS: chlordiazePOXIDE 5 MG CAPSULE PO SCH ×2 (02:40→05:27)
[2017-01-04 07:18] LABS: EOSINOPHIL 2.5 % (0-4.5); MCH 25.1 pg (25.7-33.7); MCHC 31.6 g/dl (32.0-35.9); MEAN CELL VOLUME 79.5 fl (80-96); MEAN PLT VOLUME 9.3 fl (7.5-11.1); NEUTROPHILS 41.4 % (42.8-82.8); PLATELET COUNT 98 K/MM3 (134-434); RDW 21.8 % (11.9-15.9); WHITE BLOOD COUNT 2.2 K/mm3 (4.0-10.0)
[2017-01-04 07:45] LABS: ANION GAP 8 (8-16); CO2 30 mmol/L (21-32); CREATININE 0.5 mg/dL (0.7-1.3); GLUCOSE,RANDOM 85 mg/dL (74-106); PHOSPHOROUS 3.7 mg/dL (2.5-4.9)
[2017-01-04] MEDS: FOLIC ACID 1 MG TABLET (FP) PO SCH (09:01)
[2017-01-04] MEDS: PANTOPRAZOLE 20 MG TABLET (FP) PO SCH (09:01)
[2017-01-04] MEDS: ASPIRIN 81 MG CHEWABLE TABLETS PO SCH (09:01)
[2017-01-04] MEDS: HEPARIN NA (PORCINE) 5,000 UNITS/ML 1ML VIAL SQ SCH (09:01)
[2017-01-04] MEDS: THIAMINE HCL 100 MG TABLET (FP) PO SCH (09:02)
[2017-01-04] MEDS ORDERED: chlordiazePOXIDE 5 MG CAPSULE PO SCH (12:00)
[2017-01-04] MEDS ORDERED: DIPYRIDAMOLE 50 MG/10 ML VIAL IVPB ONE (12:30)
[2017-01-04] MEDS ORDERED: WATER IVPB ONE (14:00)
[2017-01-04] MEDS ORDERED: DEXTROSE 5% IVPB ONE (14:00)
[2017-01-04] MEDS ORDERED: DIPYRIDAMOLE STRESS TEST IVPB ONE (14:00)
--- NOTE | 2017-01-04 17:52 | PN ---
Teaching Attending Note Name of Resident: Brett Quach ATTENDING PHYSICIAN STATEMENT I saw and evaluated the patient. I reviewed the resident's note and discussed the case with the resident. I agree with the resident's findings and plan as documented. SUBJECTIVE:continues to have intermittent CP. not on exertion. denies SOB, palpitations, N/V/C/D OBJECTIVE: Last Vital Signs Temp Pulse Resp BP Pulse Ox 98.1 F 100 H 16 118/95 98 01/04/17 15:40 01/04/17 15:40 01/04/17 15:40 01/04/17 15:40 01/04/17 09:00 General NAD CV S1 S2 RRR no murmur/rub/gallop no chest wall tenderness ASSESSMENT AND PLAN: 51-year-old man with a history of alcohol abuse who presented to the ER from [facility] with exertional chest pain for the past month. 1. Chest pain- cardiac enzyme neg x3. echo WNL. plan for NMST today. if negative can d/c home. cardio evaluated. started on asa. recommend following up with PMD for initiation of statin therapy. will hold at this time in setting of transaminitis. 2. Alcohol withdrawal- CIWA 0. no signs of withdrawal. was on long librium taper. will d/c today. does not want inpatient rehab at this time. counseled on importance of ETOH cessation. AA referral. cont thiamine/folate/MVI 4. Pancytopenia, secondary to alcohol abuse-slowing improving. no signs of bleeding 5. Hepatic transaminitis, secondary to alcohol abuse 6. Hypokalemia-resolved 7. Hypomagnesemia-resolved 8. Hypophosphatemia-resolved 9. d/c planning pending result of NMST
[2017-01-04 18:33] VITALS: BP 98/63; PULSE 89; TEMP 97.1
--- NOTE | 2017-01-04 19:48 | DS ---
Physical Exam: LABS Laboratory Results - last 24 hr Selected Entries 12/28/16 12/29/16 12/29/16 12:19 01:15 17:00 Temperature 98.2 F Pulse Rate 105 H 110 H Blood Pressure 140/102 130/100 130/87 12/29/16 12/30/16 12/31/16 21:00 17:00 02:00 Temperature Pulse Rate 100 H 115 H Blood Pressure 137/97 12/31/16 01/01/17 01/01/17 22:00 02:00 06:00 Temperature 97.7 F Pulse Rate 103 H 103 H Blood Pressure 109/70 01/01/17 01/04/17 01/04/17 18:00 01:35 10:00 Temperature 98.0 F Pulse Rate 100 H Blood Pressure 126/80 01/04/17 01/04/17 15:40 17:00 Temperature 97.1 F L Pulse Rate 100 H 89 Blood Pressure Laboratory Tests 12/28/16 12/28/16 12/29/16 12:21 12:21 05:35 WBC 2.0 L D Hgb 11.5 L D Plt Count 64 L Sodium 141 Potassium 3.5 AST 165 H D Cholesterol 231 H Total LDL Cholesterol 104 H 12/30/16 12/31/16 01/01/17 05:35 05:35 05:55 WBC 3.6 L D 3.6 L Hgb 11.5 L Plt Count 43 L Sodium Potassium AST 112 H Cholesterol Total LDL Cholesterol 01/02/17 01/02/17 01/03/17 05:50 05:50 05:35 WBC 2.9 L Hgb 10.3 L Plt Count 73 L D Sodium Potassium AST 123 H Cholesterol Total LDL Cholesterol 01/04/17 01/04/17 05:35 05:35 WBC Hgb 10.2 L Plt Count 98 L D Sodium 139 Potassium 3.7 AST Cholesterol Total LDL Cholesterol 12/28- CXR- chronic changes in left lung. No acute pathology 12/28- EKG- sinus tachy 12/29- EKG- sinus tachy 12/29- ekg- sinus tachy 01/04- Stress test- Normal myoview spect scan. Normal wall motion. lV EF is normal Resting EF- 56%, stress EF- 64% HOSPITAL COURSE: Date of Admission:12/29/16 Date of Discharge: 01/04/17 This is a 51-year-old man with a history of alcohol abuse who presented to the ER from [facility] with chest pain. He had been having left-sided and substernal chest pressure with exertion on and off for about one month, and worse during the last week. The pain did not radiate but was associated with palpitations and diaphoresis. Patient was admitted for r/o acs and alcohol abuse with withdrawal. Troponins were negative x 3. He was started on a librium taper at 25 mg. Patient become exceedingly agitated and aggressive on day 2 of admission. Librium was increased to 50 mg and tapered over a few days. He underwent lipid panel and a1c (results above). Patient was found to be pancytopenic likely 2/2 to alcohol abuse. Patient underwent a stress test on 01/04 (results above). He was d/c home after refusal to go to rehab or detox. The patient was counseled on the risks of alcohol abuse. He was provided referrals by case management to AA. Minutes to complete discharge: 45 Discharge Summary Reason For Visit: CHEST PAIN,TACHYCARDIA Current Active Problems Chest pain (Acute) Electrolyte abnormality (Acute) Tachycardia (Acute) Alcohol dependence with uncomplicated withdrawal (Chronic) Elevated LFTs (Chronic) Pancytopenia (Chronic) Condition: Improved - Instructions Diet, Activity, Other Instructions: You were in the hospital due to chest pain and alcohol withdrawal. Please follow up with a primary care provider within 1 week. A referral has been provided for you. Start the following medications: -Protonix 20 mg by mouth daily -Aspirin 81 mg by mouth daily If you have chest pain, shortness of breath, or any new symptoms please come back to the hospital immediately. Referrals: Jackson Odom MD [Staff Physician] - Disposition: HOME - Home Medications Comprehensive Discharge Medication List: Ambulatory Orders Aspirin [ASA -] 81 mg PO DAILY tab.chew 01/04/17 Pantoprazole Sodium [Protonix -] 20 mg PO DAILY #30 tablet 01/04/17 Problem List - Problems (1) Alcohol abuse (2) Chest pain (3) Neutropenia (4) Thrombocytopenia (5) DVT prophylaxis This patient is new to me today: No Emergency Visit: No Critical Care patient: No - Discharge Referral [facility]erred to [facility] Yes Physician Referral: Jackson Kelley MD ([facility])
== END 2017-01-04 20:46 | disposition home or self-care (01) | DRG 201 ==
LOC: JER 12:08 → JERBED 15:56 → J4W 20:43 → OBSVTOIN 12-29 07:51 → J4W 12-31 22:00
PROVIDERS: ADMIT Internal Medicine; ATTEND Internal Medicine
PROC: HZ2ZZZZ Detoxification Services for Substance Abuse Treatment (ICD-10-PCS; principal; 2016-12-28)
DX: R00.0 Tachycardia, unspecified (principal); R07.89 Other chest pain; E78.5 Hyperlipidemia, unspecified; K29.60 Other gastritis without bleeding; F10.230 Alcohol dependence with withdrawal, uncomplicated; D61.818 Other pancytopenia; R74.0 Nonspecific elevation of levels of transaminase and lactic acid dehydrogenase [LDH]; E87.6 Hypokalemia; D69.6 Thrombocytopenia, unspecified; N17.9 Acute kidney failure, unspecified; R79.89 Other specified abnormal findings of blood chemistry; E83.42 Hypomagnesemia; E83.39 Other disorders of phosphorus metabolism
CPT/HCPCS: 36415; 71010-TC; 78452-TC; 80048; 80053; 80061; 80076; 83036; 83690; 83721; 83735; 84100; 84484; 85025; 85027; 85610; 93005; 93010; 93017; 93306-TC; 99284-25; A9502; G0378; J1644

== ENCOUNTER 2017-02-14 16:26 | Inpatient (IN) | payer SELFPAY ==
[2017-02-14] MEDS ORDERED: ONDANSETRON 4 MG/2 ML VIAL IVPUSH ONE (16:59)
--- NOTE | 2017-02-14 16:59 | PDOC ---
History of Present Illness - General Chief Complaint: Alcohol intoxication Stated Complaint: ALCOHOL INTOXICATION Time Seen by Provider: 02/14/17 16:57 Past History - Past Medical History Allergies/Adverse Reactions: Allergies Allergy/AdvReac Type Severity Reaction Status Date / Time No Known Allergies Allergy Verified 02/14/17 16:34 Home Medications: Ambulatory Orders Aspirin [ASA -] 81 mg PO DAILY tab.chew 01/04/17 Pantoprazole Sodium [Protonix -] 20 mg PO DAILY #30 tablet 01/04/17 Asthma: No Cardiac Disorders: No COPD: No Diabetes: No GI Disorders: Yes (gastritis, gastrointestinal bleeding) Disorders: No HTN: No Kidney Stones: No Seizures: No - Surgical History Abdominal Surgery: No Appendectomy: No Cardiac Surgery: No Cholecystectomy: No Lung Surgery: No Neurologic Surgery: No Orthopedic Surgery: No - Reproductive History Testicular Surgery: No - Immunization History Immunization Up to Date: No - Suicide/Smoking/Psychosocial Hx Smoking History: Never smoked Have you smoked in the past 12 months: No Number of Cigarettes Smoked Daily: 20 Information on smoking cessation initiated: No 'Breaking Loose' booklet given: 10/06/15 Hx Alcohol Use: Yes (alcohol) Drug/Substance Use Hx: No Substance Use Type: Alcohol Hx Substance Use Treatment: Yes Abd/GI Specific PMHX - Complaint Specific PMHX Hepatitis: No Pancreatitis: No *Physical Exam - Vital Signs Last Vital Signs Temp Pulse Resp BP Pulse Ox 98.0 F 140 H 16 104/89 100 02/14/17 16:35 02/14/17 16:35 02/14/17 16:35 02/14/17 16:35 02/14/17 16:35
[2017-02-14] MEDS ORDERED: SODIUM CHLORIDE 1,000 ML IV STA ×2 (17:00→17:55)
[2017-02-14] MEDS ORDERED: ONDANSETRON 4 MG/2 ML VIAL ONE (17:09)
--- NOTE | 2017-02-14 17:15 | PDOC ---
Attending Attestation - Resident Resident Name: Bobby Badillo - ED Attending Attestation I have performed the following: I have examined & evaluated the patient, The case was reviewed & discussed with the resident, I agree w/resident's findings & plan, Exceptions are as noted - HPI HPI: 02/14/17 52 yo male with alcohol on breath presents with diaphoresis,coffee ground emesis and tachycardia - Physicial Exam PE: 02/14/17 17:15 Conversant, pale,diaphorectic in mild distress presents with alcohol on breath , coffee-ground emesis, and tachycardia Head no evidence of trauma no facial trauma evident neck no cervical vertebral tenderness lungs cta b/l cvs tachycardia abd - mild epigastric tenderness no rebound extremities moving all extremities,old healed wound on left ankle neuro inebriated but alert,moving all extremities purposefully - Medical Decision Making 02/14/17 17:20 diff diag: GI bleed, alcoholic gastritis-plan IVF,antiemetics ,cbc, etoh level, comp,type and screen. hemoccult
[2017-02-14] MEDS ORDERED: PANTOPRAZOLE SODIUM 40 MG in SODIUM CHLORIDE 100 ML IVPB ONE (17:16)
[2017-02-14 17:29] LABS: MCH 24.5 pg (25.7-33.7); MCHC 32.1 g/dl (32.0-35.9); MEAN CELL VOLUME 76.3 fl (80-96); MEAN PLT VOLUME 8.6 fl (7.5-11.1); PLATELET COUNT 68 K/MM3 (134-434); RDW 18.8 % (11.9-15.9); WHITE BLOOD COUNT 4.9 K/mm3 (4.0-10.0)
--- NOTE | 2017-02-14 17:37 | PDOC ---
History of Present Illness - General Chief Complaint: Alcohol intoxication Stated Complaint: ALCOHOL INTOXICATION Time Seen by Provider: 02/14/17 16:57 History Source: Patient Exam Limitations: Language Barrier - History of Present Illness Initial Comments: 02/14/17 17:32 Patient is a 52M with history of GI bleed requiring intubation in 10/12, etoh abuse, and anemia here today complaining of blood in vomit. The patient has been vomiting blood for the past two days. He has associated dizziness, shortness of breath, weakness, fevers and epigastric pain for the past two days as well. He is also complaining of dark stool, but denies diarrhea. He says that he drinks a bottle of vodka per day, all store bought. Past History - Past Medical History Allergies/Adverse Reactions: Allergies Allergy/AdvReac Type Severity Reaction Status Date / Time No Known Allergies Allergy Verified 02/14/17 16:34 Home Medications: Ambulatory Orders Aspirin [ASA -] 81 mg PO DAILY tab.chew 01/04/17 Pantoprazole Sodium [Protonix -] 20 mg PO DAILY #30 tablet 01/04/17 Asthma: No Cardiac Disorders: No COPD: No Diabetes: No GI Disorders: Yes (gastritis, gastrointestinal bleeding) Disorders: No HTN: No Kidney Stones: No Seizures: No - Surgical History Abdominal Surgery: No Appendectomy: No Cardiac Surgery: No Cholecystectomy: No Lung Surgery: No Neurologic Surgery: No Orthopedic Surgery: No - Reproductive History Testicular Surgery: No - Immunization History Immunization Up to Date: No - Suicide/Smoking/Psychosocial Hx Smoking History: Never smoked Have you smoked in the past 12 months: No Number of Cigarettes Smoked Daily: 20 Information on smoking cessation initiated: No 'Breaking Loose' booklet given: 10/06/15 Hx Alcohol Use: Yes (alcohol) Drug/Substance Use Hx: No Substance Use Type: Alcohol Hx Substance Use Treatment: Yes Review of Systems - Review of Systems Comments:: 02/14/17 17:35 GENERAL/CONSTITUTIONAL: Positive for fevers and weakness. HEAD, EYES, EARS, NOSE AND THROAT: No change in vision. No sore throat. CARDIOVASCULAR: No chest pain. Positive for shortness of breath. RESPIRATORY: No cough, wheezing GASTROINTESTINAL: Positive for nausea and vomiting. Negative for diarrhea or constipation. GENITOURINARY: No dysuria, frequency, or change in urination. SKIN: No rash NEUROLOGIC: Positive for headache. Negative for vertigo, loss of consciousness, or change in strength/sensation. HEMATOLOGIC/LYMPHATIC: Positive for history of anemia and GI bleed ALLERGIC/IMMUNOLOGIC: No hives or skin allergy. *Physical Exam - Vital Signs Last Vital Signs Temp Pulse Resp BP Pulse Ox 98.0 F 140 H 16 104/89 100 02/14/17 16:35 02/14/17 16:35 02/14/17 16:35 02/14/17 16:35 02/14/17 16:35 - Physical Exam Comments: 02/14/17 17:37 GENERAL: Awake, alert, and fully oriented, in acute distress, vomitus with bright blood and coffee ground emesis HEAD: No signs of trauma, normocephalic, atraumatic EYES: PERRLA, EOMI, sclera anicteric, conjunctiva clear ENT: Auricles normal inspection, hearing grossly normal, nares patent, oropharynx clear without exudates. Dry mucosa LUNGS: No distress, speaks full sentences, clear to auscultation bilaterally HEART: Regular rate and rhythm, normal S1 and S2, no murmurs, rubs or gallops, peripheral pulses normal and equal bilaterally. ABDOMEN: Soft, tender in epigastric region, normoactive bowel sounds. No guarding, no rebound. No masses EXTREMITIES: Normal inspection, Normal range of motion, no edema. No clubbing or cyanosis. NEUROLOGICAL: Cranial nerves II through XII grossly intact. Normal speech, no focal sensorimotor deficits SKIN: Warm, Dry, normal turgor, no rashes or lesions noted. ED Treatment Course - LABORATORY CBC & Chemistry Diagram: 02/14/17 17:20 02/14/17 17:20 - ADDITIONAL ORDERS Additional order review: Laboratory Results 02/14/17 17:16 Stool Occult Blood Positive Medical Decision Making - Critical Care Time Total Critical Care Time (minutes): 60 Critical Care Statement: The care of this patient involved high complexity decision making to prevent further life threatening deterioration of the patient 's condition and/or to evaluate & treat vital organ system(s) failure or risk of failure. - Medical Decision Making 02/14/17 17:38 Patient is a 52M with history of prior GI bleed requiring intubation, anemia and alcohol abuse here today with GI bleed. Tachycardic to 140. Will evaluate with labs and ecg. Will treat with protonix, fluids, and zofran. Patient is protecting his airway. Vomiting has improved with zofran. 02/14/17 17:42 Laboratory Tests 02/14/17 17:20 WBC 4.9 D Hgb 10.5 L Hct 32.7 L Plt Count 68 L D CBC shows an anemia, consistent with patient at prior admissions. 02/14/17 19:13 Patient rapidly deteriorated with large about of bloody vomit with clots. Patient was intubated for airway protection after becoming somnolent. 4U of RBC , 2U of platelets, 2U of FFP ordered. Octreotide drip started, protonix started. IV NS started, 2L. Signed out to Dr Londono. Dr Finley from GI consulted, patient has history of gordo-mijares tears. *DC/Admit/Observation/Transfer Diagnosis at time of Disposition: GI bleed requiring more than 4 units of blood in 24 hours, ICU, or surgery
[2017-02-14 17:49] LABS: INR 1.2 (0.82-1.09); PROTHROMBIN TIME (PATIENT) 13.2 SEC (9.98-11.88)
[2017-02-14] MEDS ORDERED: OCTREOTIDE ACETATE 50 MCG/1 ML - 1 ML VIAL IVPUSH ONE (17:57)
[2017-02-14] MEDS ORDERED: PANTOPRAZOLE SODIUM 40 MG VIAL ONE (18:00)
[2017-02-14 18:01] LABS: ALBUMIN 3.9 g/dl (3.4-5.0); ANION GAP 18 (8-16); BILIRUBIN,TOTAL 0.7 mg/dL (0.2-1.0); CALCIUM 7.7 mg/dL (8.5-10.1); CO2 23 mmol/L (21-32); GLUCOSE,RANDOM 152 mg/dL (74-106); SGPT/ALT 45 U/L (12-78)
[2017-02-14] MEDS ORDERED: OCTREOTIDE ACETATE 100 MCG/1 ML ONE ×2 (18:01→18:11)
[2017-02-14 18:02] LABS: ALK PHOS 58 U/L (45-117); TOT PROT 7.6 g/dl (6.4-8.2)
[2017-02-14 18:11] LABS: SGOT/AST 69 U/L (15-37)
[2017-02-14] MEDS ORDERED: OCTREOTIDE ACETATE 500 MCG/1 ML - 1 ML VIAL ONE (18:11)
[2017-02-14] MEDS: OCTREOTIDE ACETATE 1,200 MCG in DEXTROSE 5%-WATER - 488 ML IVPB SCH (18:20)
[2017-02-14] MEDS ORDERED: RAPID SEQUENCE INTUBATION KIT NR ONE ×2 (18:24→19:55)
[2017-02-14] MEDS ORDERED: LORazepam 2 MG/ML SDV VIAL ONE ×2 (18:40→20:59)
[2017-02-14] MEDS ORDERED: MIDAZOLAM HCL 2 MG/2 ML SINGLE DOSE VIAL ONE (18:46)
[2017-02-14] MEDS ORDERED: PROPOFOL 100 ML ONE (18:51)
[2017-02-14 19:05] LABS: BASOPHIL 0.8 % (0-2.0); MCH 25.3 pg (25.7-33.7); MCHC 32.5 g/dl (32.0-35.9); MEAN CELL VOLUME 77.7 fl (80-96); MEAN PLT VOLUME 8.6 fl (7.5-11.1); NEUTROPHILS 86.1 % (42.8-82.8); PLATELET COUNT 57 K/MM3 (134-434); RDW 18.5 % (11.9-15.9); WHITE BLOOD COUNT 6.8 K/mm3 (4.0-10.0)
--- NOTE | 2017-02-14 19:16 | PDOC ---
*Physical Exam - Vital Signs Last Vital Signs Temp Pulse Resp BP Pulse Ox 98.0 F 140 H 16 104/89 100 02/14/17 16:35 02/14/17 16:35 02/14/17 16:35 02/14/17 16:35 02/14/17 16:35 ED Treatment Course - LABORATORY CBC & Chemistry Diagram: 02/14/17 17:20 02/14/17 17:20 - ADDITIONAL ORDERS Additional order review: Laboratory Results 02/14/17 02/14/17 02/14/17 17:20 17:20 17:20 PT with INR INR Sodium 139 Potassium 3.1 L Chloride 98 Carbon Dioxide 23 D Anion Gap 18 H BUN 43 H D Creatinine 1.0 D Creat Clearance w eGFR > 60 Random Glucose 152 H D Calcium 7.7 L Total Bilirubin 0.7 AST 69 H D ALT 45 D Alkaline Phosphatase 58 Total Protein 7.6 Albumin 3.9 Stool Occult Blood Alcohol, Quantitative 337.2 H* Blood Type A POSITIVE Antibody Screen Negative Crossmatch See Detail 02/14/17 02/14/17 17:20 17:16 PT with INR 13.20 H INR 1.20 H Sodium Potassium Chloride Carbon Dioxide Anion Gap BUN Creatinine Creat Clearance w eGFR Random Glucose Calcium Total Bilirubin AST ALT Alkaline Phosphatase Total Protein Albumin Stool Occult Blood Positive Alcohol, Quantitative Blood Type Antibody Screen Crossmatch 02/14/17 17:20 RBC 4.28 MCV 76.3 L MCHC 32.1 RDW 18.8 H D MPV 8.6 Neutrophils % 81.0 D Lymphocytes % 13.7 D Monocytes % 4.3 Eosinophils % 0.0 D Basophils % 1.0 - RADIOLOGY Radiology Studies Ordered: Category Date Time Status CHEST X-RAY PORTABLE* [RAD] Stat Radiology 02/14/17 18:59 Ordered - Medications Given in the ED: ED Medications Discontinued Medications Generic Name Dose Route Start Last Admin Trade Name Freq PRN Reason Stop Dose Admin Sodium Chloride 1,000 mls @ 1,000 mls/hr 02/14/17 17:00 02/14/17 17:36 Normal Saline - IV 02/14/17 17:59 1,000 mls/hr ASDIR STA Administration Pantoprazole Sodium 40 mg/ 100 mls @ 200 mls/hr 02/14/17 17:16 02/14/17 18:00 Sodium Chloride IVPB 02/14/17 17:45 200 mls/hr ONCE ONE Administration Sodium Chloride 1,000 mls @ 1,000 mls/hr 02/14/17 17:55 02/14/17 18:00 Normal Saline - IV 02/14/17 18:54 1,000 mls/hr ASDIR STA Administration Octreotide Acetate 50 mcg 02/14/17 17:57 02/14/17 18:10 Sandostatin - IVPUSH 02/14/17 17:58 50 mcg ONCE ONE Administration Ondansetron HCl 4 mg 02/14/17 16:59 02/14/17 17:00 Zofran Injection IVPUSH 02/14/17 17:00 4 mg ONCE ONE Administration Medical Decision Making - Critical Care Time Total Critical Care Time (minutes): 120 Critical Care Statement: The care of this patient involved high complexity decision making to prevent further life threatening deterioration of the patient 's condition and/or to evaluate & treat vital organ system(s) failure or risk of failure. - Medical Decision Making 02/14/17 19:14 52-year-old male with history of alcoholism presents with significant GI bleeding. Diaphoretic and tachycardic upon arrival. Pulse in the 140s The patient became somnolent after multiple episodes of GI bleeding and was intubated to protect his airway. Octreotide drip started, Protonix drip, packed RBCs started and platelets ordered Dr. Finley in the emergency department assessing patient. Patient had been scoped previously and was found have a Jessica-Gimenez tear Dr. Srivastava who agreed to ICU admission *DC/Admit/Observation/Transfer Diagnosis at time of Disposition: Thrombocytopenia, Tachycardia, Jessica-Gimenez tear, Alcohol abuse GIB (gastrointestinal bleeding) Qualifiers: GI bleed type/associated pathology: gastritis Gastritis type: alcoholic Qualified Code(s): K29.21 - Alcoholic gastritis with bleeding - Discharge Dispostion Admit: Yes
--- NOTE | 2017-02-14 19:42 | CON.GI ---
Consult Consult Specialty:: GI Referred by:: Dr Rosales Reason for Consultation:: GI bleed - History of Present Illness Chief Complaint: vomiting blood History of Present Illness: 52M with history longstanding ETOH abuse drinking 1 bottle of vodka daily, S/P GI bleed 10/[address] Thompson with no varices noted. He now is admitted with 2 days of vomiting, initially no blood but subsequently with blood. On admission Hgb was 10.5. Repeat 10.43 after patient had received 2 units PRBC. He has had several bouts of vomiting with copious blood and clots. He is currently intubated to protect his airway. He is on ASA 81 at home. Unclear if he is taking NSAIDs at home. On admission, BAL 337. - History Source History Provided By: Medical Record Limitations to Obtaining History: Intubated - Past Medical History Infectious Disease: Yes: Other (h/o TB treated [address] [facility] notes) Psych: Yes: Addictions (alcohol abuse) - Alcohol/Substance Use Hx Alcohol Use: Yes (alcohol) - Smoking History Smoking history: Never smoked Have you smoked in the past 12 months: No Aproximately how many cigarettes per day: 20 Home Medications - Allergies Allergies/Adverse Reactions: Allergies Allergy/AdvReac Type Severity Reaction Status Date / Time No Known Allergies Allergy Verified 02/14/17 16:34 - Home Medications Home Medications: Ambulatory Orders Aspirin [ASA -] 81 mg PO DAILY tab.chew 01/04/17 Pantoprazole Sodium [Protonix -] 20 mg PO DAILY #30 tablet 01/04/17 Physical Exam-GI Vital Signs: Vital Signs Temperature 98.0 F 02/14/17 16:35 Pulse Rate 140 H 02/14/17 16:35 Respiratory Rate 24 02/14/17 18:30 Blood Pressure 104/89 02/14/17 16:35 O2 Sat by Pulse Oximetry (%) 100 02/14/17 16:35 Constitutional: Yes: Well Nourished, No Distress (intubated and sedated) HENT: Yes: Normocephalic Cardiovascular: Yes: Regular Rate and Rhythm Respiratory: Yes: CTA Bilaterally Gastrointestinal Inspection: Yes: WNL ...Auscultate: Yes: Hyperactive Bowel Sounds ...Palpate: Yes: Soft Neurological: Yes: Other (sedated) Labs: CBC, BMP 02/14/17 19:00 02/14/17 17:20 INR, PTT INR 1.20 (0.82-1.09) H 02/14/17 17:20 Abnormal Lab Results 02/14/17 02/14/17 02/14/17 17:20 17:20 17:20 Hgb 10.5 L Hct 32.7 L MCV 76.3 L MCH 24.5 L RDW 18.8 H D Plt Count 68 L D Neutrophils % Lymphocytes % PT with INR 13.20 H INR 1.20 H Potassium 3.1 L Anion Gap 18 H BUN 43 H D Random Glucose 152 H D Calcium 7.7 L AST 69 H D Alcohol, Quantitative Crossmatch 02/14/17 02/14/17 02/14/17 17:20 17:20 19:00 Hgb 10.4 L Hct 32.0 L MCV 77.7 L MCH 25.3 L RDW 18.5 H Plt Count 57 L Neutrophils % 86.1 H Lymphocytes % 6.8 L D PT with INR INR Potassium Anion Gap BUN Random Glucose Calcium AST Alcohol, Quantitative 337.2 H* Crossmatch See Detail Assessment/Plan Upper GI bleed. Based on prior EGD, unlikely variceal. Probably Jessica Gimenez tear in patient with coagulopathy, on aspirin and with thrombocytopenia. Managed well in the ER with 2 units PRBC, platelets, FFP, octreotide drip and protonix drip Currently stable As he is hyper-metabolic, may need detox protocol when safe to implement. Would prefer to scope in AM if no significant bleeding tonight. If he had further significant bleeding and VS are affected may need to scope sooner. Repeat CBC at [place] and re-valuate. Transfuse as needed to keep Hgb above 9 Recommend D/C ooutpatient aspirin permanently.
[2017-02-14 19:51] LABS: URINE APPEARANCE CLEAR; URINE BILIRUBIN NEGATIVE (NEGATIVE); URINE BLOOD 1+ (NEGATIVE); URINE COLOR LTYELLOW; URINE GLUCOSE (UA) NEGATIVE (NEGATIVE); URINE KETONE 1+ (NEGATIVE); URINE LEUK ESTERASE NEGATIVE (NEGATIVE); URINE NITRITE NEGATIVE (NEGATIVE); URINE UROBILINOGEN NEGATIVE mg/dL (0.2-1.0)
[2017-02-14 19:53] LABS: URINE PROTEIN 1+ (NEGATIVE)
[2017-02-14 19:55] LABS: URINE MUCUS RARE; URINE RBC <1 /hpf (0-3); URINE WBC 2 /hpf (3-5)
[2017-02-14 20:07] LABS: URINE MARIJUANA THC NEGATIVE ng/ml (CUTOFF=50)
[2017-02-14] MEDS ORDERED: ROCURONIUM BROMIDE 50 MG/5 ML VIAL IV STA (20:08)
--- NOTE | 2017-02-14 20:21 | PDOC ---
*Physical Exam - Vital Signs Last Vital Signs Temp Pulse Resp BP Pulse Ox 98.0 F 140 H 24 104/89 100 02/14/17 16:35 02/14/17 16:35 02/14/17 18:30 02/14/17 16:35 02/14/17 16:35 - Physical Exam Comments: Intubated with mechanical ventilation, partially awake and fighting the vent, attempting to pull out tubes and lines Eyes equal round and reactive to light, injected conjunctiva Bright red blood about mouth and nose and face, actively being suctioned B/L breath sounds, gaging on and biting ET Tube Tachycardic, regular rhythm, no MRG abdomen soft and non-distended Moving all extremities Partially sedated Skin is warm and dry with no rashes or lesions noted ED Treatment Course - LABORATORY CBC & Chemistry Diagram: 02/21/17 06:00 02/21/17 06:00 - ADDITIONAL ORDERS Additional order review: Laboratory Results 02/14/17 02/14/17 02/14/17 17:20 17:20 17:20 PT with INR INR Sodium 139 Potassium 3.1 L Chloride 98 Carbon Dioxide 23 D Anion Gap 18 H BUN 43 H D Creatinine 1.0 D Creat Clearance w eGFR > 60 Random Glucose 152 H D Calcium 7.7 L Total Bilirubin 0.7 AST 69 H D ALT 45 D Alkaline Phosphatase 58 Total Protein 7.6 Albumin 3.9 Stool Occult Blood Alcohol, Quantitative 337.2 H* Blood Type A POSITIVE Antibody Screen Negative Crossmatch See Detail 02/14/17 02/14/17 17:20 17:16 PT with INR 13.20 H INR 1.20 H Sodium Potassium Chloride Carbon Dioxide Anion Gap BUN Creatinine Creat Clearance w eGFR Random Glucose Calcium Total Bilirubin AST ALT Alkaline Phosphatase Total Protein Albumin Stool Occult Blood Positive Alcohol, Quantitative Blood Type Antibody Screen Crossmatch 02/14/17 02/14/17 19:00 17:20 RBC 4.12 4.28 MCV 77.7 L 76.3 L MCHC 32.5 32.1 RDW 18.5 H 18.8 H D MPV 8.6 8.6 Neutrophils % 86.1 H 81.0 D Lymphocytes % 6.8 L D 13.7 D Monocytes % 6.3 4.3 Eosinophils % 0.0 0.0 D Basophils % 0.8 1.0 - Medications Given in the ED: ED Medications Discontinued Medications Generic Name Dose Route Start Last Admin Trade Name Freq PRN Reason Stop Dose Admin Sodium Chloride 1,000 mls @ 1,000 mls/hr 02/14/17 17:00 02/14/17 17:36 Normal Saline - IV 02/14/17 17:59 1,000 mls/hr ASDIR STA Administration Pantoprazole Sodium 40 mg/ 100 mls @ 200 mls/hr 02/14/17 17:16 02/14/17 18:00 Sodium Chloride IVPB 02/14/17 17:45 200 mls/hr ONCE ONE Administration Sodium Chloride 1,000 mls @ 1,000 mls/hr 02/14/17 17:55 02/14/17 18:00 Normal Saline - IV 02/14/17 18:54 1,000 mls/hr ASDIR STA Administration Octreotide Acetate 50 mcg 02/14/17 17:57 02/14/17 18:10 Sandostatin - IVPUSH 02/14/17 17:58 50 mcg ONCE ONE Administration Ondansetron HCl 4 mg 02/14/17 16:59 02/14/17 17:00 Zofran Injection IVPUSH 02/14/17 17:00 4 mg ONCE ONE Administration Rocuronium [place] 70 mg 02/14/17 20:08 02/14/17 20:05 Zemuron - IV 02/14/17 20:09 70 mg ONCE STA Administration Progress Note - Progress Note Progress Note: Patient is an unstable intubated 52 year old male signed out to me by Dr. Badillo [facility] significant for alcohol abuse, gordo wiess tear Presenting with 2 days of vomiting blood, deteriorated in ED, vomiting large amouts of bright red blood, intubated for airway protection Received fluids and 1 RBC, Second RBC hanging, FFP and platelates at bedside Patient remains conscious and fighting the vent, tachycardic (140-150) but maintaining SBP > 120 Medical Decision Making - Critical Care Time Total Critical Care Time (minutes): 30 Critical Care Statement: The care of this patient involved high complexity decision making to prevent further life threatening deterioration of the patient 's condition and/or to evaluate & treat vital organ system(s) failure or risk of failure. - Medical Decision Making 52 yo male with history of alcohol abuse, gordo mijares tear and significant retching earlier in the day and 2 days of vomiting blood, intubated and ventilated, poorly sedated, actively gaging and fighting with the vent and periodically coughing up bright red blood Ddx includes but is not limited to Gordo Mijares, Boerhaave Syndrome, ruptured esophageal varacies, Plan Continue with mass transfusion protocol Manage sedation Consider paralytics Manage airway Post incubation, patient is not well sedated and continues to fight the vent and attempt to pull tubes and lines. Soft restraints were utilized on the UE to prevent the patient from pulling out the ET tube. Disrobed patient and completed a secondary survey. Dr Finley from GI examined patient and believes this is a Gordo Mijares tear/ Boerhaave Syndrome. A 40 mg bolus of Propofol was given and a drip started at 15 mcg/kg/min and titrated up to 55 mcg/kg/min making sure to maintain BP. Patient continues to fight against and bite on the vent. With consult of Dr. Rosales, additional benzos were given and ultimately pt was paralyzed with rocuronium when he again started to retch small amounts of blood and the blood was suctioned. Started ETCO2, initial 25 with TV500 and RR14, Peak pressure 30-40 with occasional spike 2/2 tube biting, O2Sat 100. Instructed respiratory to adjust settings to lower TV and possible RR. TV adjusted to 400 with RR maintained at 14. ETCO2 increased to 30s with peak pressure 20-30, O2sat 100. Patient was admitted to ICU and was subsequently transferred without additional interventions on my part. *DC/Admit/Observation/Transfer Diagnosis at time of Disposition: GI bleed requiring more than 4 units of blood in 24 hours, ICU, or surgery, Thrombocytopenia, Tachycardia, Gordo-Mijares tear, Alcohol abuse GIB (gastrointestinal bleeding) Qualifiers: GI bleed type/associated pathology: gastritis Gastritis type: alcoholic Qualified Code(s): K29.21 - Alcoholic gastritis with bleeding - Prescriptions
[2017-02-14] MEDS ORDERED: MIDAZOLAM HCL 5 MG/1 ML Single Dose Vial IVPUSH ONE (20:30)
--- NOTE | 2017-02-14 20:44 | HP ---
Admitting History and Physical - Primary Care Physician PCP: Verona Lagunas - Admission Chief Complaint: vomitting blood History of Present Illness: 52M with history longstanding ETOH abuse drinking 1 bottle of vodka daily, S/P GI bleed 10/[address] Thompson with no varices noted. He now is admitted with 2 days of vomiting, initially no blood but subsequently with blood. On admission Hgb was 10.5. Repeat 10.43 after patient had received 2 units PRBC. He has had several bouts of vomiting with copious blood and clots. He is currently intubated to protect his airway. He is on ASA 81 at home. - Past Medical History Infectious Disease: Yes: Other (h/o TB treated 2008 per [facility] notes) Psych: Yes: Addictions (alcohol abuse) - Smoking History Smoking history: Never smoked Have you smoked in the past 12 months: No Aproximately how many cigarettes per day: 20 - Alcohol/Substance Use Hx Alcohol Use: Yes (alcohol) Home Medications - Allergies Allergies/Adverse Reactions: Allergies Allergy/AdvReac Type Severity Reaction Status Date / Time No Known Allergies Allergy Verified 02/14/17 16:34 - Home Medications Home Medications: Ambulatory Orders Aspirin [ASA -] 81 mg PO DAILY tab.chew 01/04/17 Pantoprazole Sodium [Protonix -] 20 mg PO DAILY #30 tablet 01/04/17 Physical Examination Vital Signs: Vital Signs Temperature 98.0 F 02/14/17 16:35 Pulse Rate 140 H 02/14/17 16:35 Respiratory Rate 24 02/14/17 18:30 Blood Pressure 104/89 02/14/17 16:35 O2 Sat by Pulse Oximetry (%) 100 02/14/17 16:35 Constitutional: Yes: Calm HENT: Yes: Atraumatic Neck: Yes: Supple Cardiovascular: Yes: Regular Rate and Rhythm Respiratory: Yes: Rhonchi Gastrointestinal: Yes: Normal Bowel Sounds Extremities: Yes: WNL Edema: No Neurological: Yes: Other (intubated and sedated) Problem List - Problems (1) Alcohol abuse Assessment/Plan: pt is intubated will get detox consult Code(s): F10.10 - ALCOHOL ABUSE, UNCOMPLICATED (2) GIB (gastrointestinal bleeding) Assessment/Plan: fu labs blood transfusion gi consult Code(s): K92.2 - GASTROINTESTINAL HEMORRHAGE, UNSPECIFIED Qualifiers: GI bleed type/associated pathology: gastritis Gastritis type: alcoholic Qualified Code(s): K29.21 - Alcoholic gastritis with bleeding (3) Jessica-Gimenez tear Assessment/Plan: pt has been vomitting blood consider blood transfusion fu labs iv octreotide Code(s): K22.6 - GASTRO-ESOPHAGEAL LACERATION-HEMORRHAGE SYNDROME (4) Thrombocytopenia Assessment/Plan: probably due to etoh abuse Code(s): D69.6 - THROMBOCYTOPENIA, UNSPECIFIED (5) Elevated LFTs Code(s): R79.89 - OTHER SPECIFIED ABNORMAL FINDINGS OF BLOOD CHEMISTRY (6) Pancytopenia Assessment/Plan: probably due to etohabuse Code(s): D61.818 - OTHER PANCYTOPENIA Assessment/Plan Laboratory Tests 02/14/17 02/14/17 02/14/17 17:16 17:20 17:20 WBC 4.9 D RBC 4.28 Hgb 10.5 L Hct 32.7 L MCV 76.3 L MCH 24.5 L MCHC 32.1 RDW 18.8 H D Plt Count 68 L D MPV 8.6 Neutrophils % 81.0 D Lymphocytes % 13.7 D Monocytes % 4.3 Eosinophils % 0.0 D Basophils % 1.0 Hypochromia Platelet Estimate Platelet Comment Polychromasia Basophilic Stippling Anisocytosis Microcytosis PT with INR 13.20 H INR 1.20 H Puncture Site ABG pH ABG pCO2 at Pt Temp ABG pO2 at Pt Temp ABG HCO3 ABG O2 Sat (Measured) ABG O2 Content ABG Base Excess Leighton Test O2 Delivery Device Oxygen Flow Rate Vent Mode Vent Rate Mechanical Rate PEEP Pressure Support Vent Sodium Potassium Chloride Carbon Dioxide Anion Gap BUN Creatinine Creat Clearance w eGFR Random Glucose Calcium Phosphorus Magnesium Total Bilirubin AST ALT Alkaline Phosphatase Total Protein Albumin Urine Color Urine Appearance Urine pH Ur Specific Mcn[place] Urine Protein Urine Glucose (UA) Urine Ketones Urine Blood Urine Nitrite Urine Bilirubin Urine Urobilinogen Urine RBC Urine WBC Urine Mucus Stool Occult Blood Positive Opiates Screen Methadone Screen Barbiturate Screen Phencyclidine Screen Ur Amphetamines Screen MDMA (Ecstasy) Screen Benzodiazepines Screen Cocaine Screen U Marijuana (THC) Screen Alcohol, Quantitative Blood Type Antibody Screen Crossmatch 02/14/17 02/14/17 02/14/17 17:20 17:20 17:20 WBC RBC Hgb Hct MCV MCH MCHC RDW Plt Count MPV Neutrophils % Lymphocytes % Monocytes % Eosinophils % Basophils % Hypochromia Platelet Estimate Platelet Comment Polychromasia Basophilic Stippling Anisocytosis Microcytosis PT with INR INR Puncture Site ABG pH ABG pCO2 at Pt Temp ABG pO2 at Pt Temp ABG HCO3 ABG O2 Sat (Measured) ABG O2 Content ABG Base Excess Leighton Test O2 Delivery Device Oxygen Flow Rate Vent Mode Vent Rate Mechanical Rate PEEP Pressure Support Vent Sodium 139 Potassium 3.1 L Chloride 98 Carbon Dioxide 23 D Anion Gap 18 H BUN 43 H D Creatinine 1.0 D Creat Clearance w eGFR > 60 Random Glucose 152 H D Calcium 7.7 L Phosphorus Magnesium Total Bilirubin 0.7 AST 69 H D ALT 45 D Alkaline Phosphatase 58 Total Protein 7.6 Albumin 3.9 Urine Color Urine Appearance Urine pH Ur Specific [place] Urine Protein Urine Glucose (UA) Urine Ketones Urine Blood Urine Nitrite Urine Bilirubin Urine Urobilinogen Urine RBC Urine WBC Urine Mucus Stool Occult Blood Opiates Screen Methadone Screen Barbiturate Screen Phencyclidine Screen Ur Amphetamines Screen MDMA (Ecstasy) Screen Benzodiazepines Screen Cocaine Screen U Marijuana (THC) Screen Alcohol, Quantitative 337.2 H* Blood Type A POSITIVE Antibody Screen Negative Crossmatch See Detail 02/14/17 02/14/17 02/14/17 19:00 19:39 19:39 WBC 6.8 D RBC 4.12 Hgb 10.4 L Hct 32.0 L MCV 77.7 L MCH 25.3 L MCHC 32.5 RDW 18.5 H Plt Count 57 L MPV 8.6 Neutrophils % 86.1 H Lymphocytes % 6.8 L D Monocytes % 6.3 Eosinophils % 0.0 Basophils % 0.8 Hypochromia Platelet Estimate Platelet Comment Polychromasia Basophilic Stippling Anisocytosis Microcytosis PT with INR INR Puncture Site ABG pH ABG pCO2 at Pt Temp ABG pO2 at Pt Temp ABG HCO3 ABG O2 Sat (Measured) ABG O2 Content ABG Base Excess Leighton Test O2 Delivery Device Oxygen Flow Rate Vent Mode Vent Rate Mechanical Rate PEEP Pressure Support Vent Sodium Potassium Chloride Carbon Dioxide Anion Gap BUN Creatinine Creat Clearance w eGFR Random Glucose Calcium Phosphorus Magnesium Total Bilirubin AST ALT Alkaline Phosphatase Total Protein Albumin Urine Color Ltyellow Urine Appearance Clear Urine pH 6.0 Ur Specific [place] 1.015 Urine Protein 1+ H D Urine Glucose (UA) Negative Urine Ketones 1+ H Urine Blood 1+ H Urine Nitrite Negative Urine Bilirubin Negative Urine Urobilinogen Negative Urine RBC <1 Urine WBC 2 Urine Mucus Rare Stool Occult Blood Opiates Screen Negative Methadone Screen Negative Barbiturate Screen Negative Phencyclidine Screen Negative Ur Amphetamines Screen Negative MDMA (Ecstasy) Screen Negative Benzodiazepines Screen Positive Cocaine Screen Negative U Marijuana (THC) Screen Negative Alcohol, Quantitative Blood Type Antibody Screen Crossmatch 02/14/17 02/14/17 02/15/17 22:33 23:05 05:00 WBC 5.7 4.5 RBC 3.90 L 3.19 L Hgb 10.4 L 8.7 L D Hct 31.3 L 25.7 L D MCV 80.3 80.4 MCH 26.7 27.2 MCHC 33.3 33.8 RDW 18.6 H 17.9 H Plt Count 85 L D 71 L MPV 7.5 D 9.0 D Neutrophils % 79.8 Lymphocytes % 10.2 D Monocytes % 9.1 Eosinophils % 0.1 D Basophils % 0.8 Hypochromia Platelet Estimate Platelet Comment Polychromasia Basophilic Stippling Anisocytosis Microcytosis PT with INR INR Puncture Site Left radial ABG pH 7.41 ABG pCO2 at Pt Temp 39.0 ABG pO2 at Pt Temp 87.6 D ABG HCO3 24.4 ABG O2 Sat (Measured) 96.7 ABG O2 Content 13.5 L ABG Base Excess 0.4 Leighton Test Positive O2 Delivery Device Mech. vent. Oxygen Flow Rate 40 Vent Mode A/c Vent Rate 14 Mechanical Rate Yes PEEP 5.0 Pressure Support Vent 400 Sodium Potassium Chloride Carbon Dioxide Anion Gap BUN Creatinine Creat Clearance w eGFR Random Glucose Calcium Phosphorus Magnesium Total Bilirubin AST ALT Alkaline Phosphatase Total Protein Albumin Urine Color Urine Appearance Urine pH Ur Specific [place] Urine Protein Urine Glucose (UA) Urine Ketones Urine Blood Urine Nitrite Urine Bilirubin Urine Urobilinogen Urine RBC Urine WBC Urine Mucus Stool Occult Blood Opiates Screen Methadone Screen Barbiturate Screen Phencyclidine Screen Ur Amphetamines Screen MDMA (Ecstasy) Screen Benzodiazepines Screen Cocaine Screen U Marijuana (THC) Screen Alcohol, Quantitative Blood Type Antibody Screen Crossmatch 02/15/17 02/15/17 02/15/17 05:00 12:40 12:40 WBC 4.3 RBC 2.60 L Hgb 6.9 L* D Hct 21.0 L D MCV 80.8 MCH 26.7 MCHC 33.0 RDW 17.8 H Plt Count 46 L D MPV 8.2 Neutrophils % 80.1 Lymphocytes % 11.4 Monocytes % 8.1 Eosinophils % 0.0 D Basophils % 0.4 Hypochromia 1+ Platelet Estimate Decreased Platelet Comment No clumping noted Polychromasia F Basophilic Stippling Few Anisocytosis 1+ Microcytosis 1+ PT with INR INR Puncture Site ABG pH ABG pCO2 at Pt Temp ABG pO2 at Pt Temp ABG HCO3 ABG O2 Sat (Measured) ABG O2 Content ABG Base Excess Leighton Test O2 Delivery Device Oxygen Flow Rate Vent Mode Vent Rate Mechanical Rate PEEP Pressure Support Vent Sodium 147 H Potassium 3.0 L Chloride 108 H D Carbon Dioxide 23 Anion Gap 16 BUN 20 H D Creatinine 0.5 L D Creat Clearance w eGFR > 60 Random Glucose 123 H Calcium 6.6 L* Phosphorus 3.7 Magnesium Total Bilirubin 0.7 AST 46 H D ALT 32 D Alkaline Phosphatase 46 D Total Protein 5.3 L D Albumin 2.8 L D Urine Color Urine Appearance Urine pH Ur Specific [place] Urine Protein Urine Glucose (UA) Urine Ketones Urine Blood Urine Nitrite Urine Bilirubin Urine Urobilinogen Urine RBC Urine WBC Urine Mucus Stool Occult Blood Opiates Screen Methadone Screen Barbiturate Screen Phencyclidine Screen Ur Amphetamines Screen MDMA (Ecstasy) Screen Benzodiazepines Screen Cocaine Screen U Marijuana (THC) Screen Alcohol, Quantitative Blood Type Antibody Screen Crossmatch 02/15/17 12:40 WBC RBC Hgb Hct MCV MCH MCHC RDW Plt Count MPV Neutrophils % Lymphocytes % Monocytes % Eosinophils % Basophils % Hypochromia Platelet Estimate Platelet Comment Polychromasia Basophilic Stippling Anisocytosis Microcytosis PT with INR INR Puncture Site ABG pH ABG pCO2 at Pt Temp ABG pO2 at Pt Temp ABG HCO3 ABG O2 Sat (Measured) ABG O2 Content ABG Base Excess Leighton Test O2 Delivery Device Oxygen Flow Rate Vent Mode Vent Rate Mechanical Rate PEEP Pressure Support Vent Sodium 149 H Potassium 3.4 L Chloride 110 H Carbon Dioxide 24 Anion Gap 15 BUN 16 Creatinine 0.5 L Creat Clearance w eGFR > 60 Random Glucose 158 H D Calcium 6.6 L* Phosphorus Magnesium 1.6 L Total Bilirubin 0.6 AST 37 ALT 26 Alkaline Phosphatase 41 L Total Protein 5.0 L Albumin 2.5 L Urine Color Urine Appearance Urine pH Ur Specific [place] Urine Protein Urine Glucose (UA) Urine Ketones Urine Blood Urine Nitrite Urine Bilirubin Urine Urobilinogen Urine RBC Urine WBC Urine Mucus Stool Occult Blood Opiates Screen Methadone Screen Barbiturate Screen Phencyclidine Screen Ur Amphetamines Screen MDMA (Ecstasy) Screen Benzodiazepines Screen Cocaine Screen U Marijuana (THC) Screen Alcohol, Quantitative Blood Type Antibody Screen Crossmatch Active Medications Generic Name Dose Route Start Last Admin Trade Name Freq PRN Reason Stop Dose Admin Octreotide Acetate 1,200 mcg/ 500 mls @ 20.83 mls/hr 02/14/17 18:30 02/14/17 18 :20 Dextrose IVPB 20.83 mls/hr ASDIR ALPA Administration 50 MCG/HR Sodium Chloride 1,000 mls @ 75 mls/hr 02/14/17 20:45 02/14/17 22:19 Normal Saline - IV 75 mls/hr ASDIR ALPA Administration Pantoprazole Sodium 40 mg/ 100 mls @ 200 mls/hr 02/14/17 22:00 02/15/17 11:45 Sodium Chloride IVPB 200 mls/hr BID ALPA Administration Propofol 100 mls @ 2.109 mls/hr 02/14/17 22:30 02/15/17 14:30 Diprivan - IVPB 21.092 mls/hr TITR ALPA Administration Protocol 5 MCG/KG/MIN Ceftriaxone Sodium 100 mls @ 200 mls/hr 02/15/17 14:45 02/15/17 15:48 Rocephin 2gm Ivpb (Pre-Docked) IVPB 200 mls/hr DAILY ALPA Administration Metronidazole 100 mls @ 100 mls/hr 02/15/17 15:00 02/15/17 15:35 Flagyl 500mg Premixed Ivpb - IVPB 100 mls/hr Q8H-IV ALPA Administration Midazolam HCl 100 mg/ Sodium 100 mls @ 1 mls/hr 02/15/17 15:04 Chloride IVPB 02/16/17 14:59 TITR ALPA Protocol 1 MG/HR cc time 60 min in taking care of the pt and formulating plan, calling consults
--- NOTE | 2017-02-14 21:11 | CONSULT ---
Consult Consult Specialty:: Pulm/ CCM Referred by:: Bebo Reason for Consultation:: upper GI bleed - History of Present Illness Chief Complaint: vomiting blood History of Present Illness: 52 y/o man with h/o etoh abuse and and GI bleed presenting with hematemesis. Pt reports vomiting blood x 2 days with associated dizziness, SOB, weakness, fevers and epigastric pain. He also endorsed dark stool, denied diarrhea. He reports drinking one bottle of vodka per day, store bought. On arrival to ED, pt tachycardic to 140 with ongoing vomiting but initially protecting his airway , was given zofran with some improvement. Initial hgb 10.5. Labs otherwise notable for plt 68, AST 69, UA (+) for protein, blood and ketones, and blood alcohol level 334, utox (+) for benzos (unclear if sent post intubation). He subsequently declined, became somnolent and had ongoing large amount of hematemesis with clots and was intubated for airway protection. He was ordered for 4U PRBC, 2U plt and 2U FFP and started on octreotide and protonix gtts, additionally given 2L NS. Dr. Finley from GI was consulted, reports pt with known h/o gordo-mijares tears. Per notes pt had GI bleed in 10/12 for which he was intubated with EGD at the time without varices. Repeat hgb after 2 units 10.4. Of note pt on ASA 81 at home per PMD. Pt transferred to ICU for further stabilization with GI to follow. Pt arrived in ICU hemodynamically stable though mildly tachy, intubated and sedated. Per report he had received all 4 units of blood, 2 FFP and was finishing his 2nd unit of plts. CBC to follow. Current Medications Octreotide Acetate 1,200 mcg/ (Dextrose) 500 mls @ 20.83 mls/hr IVPB ASDIR ALPA PRN Reason: 50 MCG/HR Last Admin: 02/14/17 18:20 Dose: 20.83 mls/hr Sodium Chloride (Normal Saline -) 1,000 mls @ 75 mls/hr IV ASDIR ALPA Last Admin: 02/14/17 22:19 Dose: 75 mls/hr Pantoprazole Sodium 40 mg/ (Sodium Chloride) 100 mls @ 200 mls/hr IVPB BID ALPA Last Admin: 02/14/17 21:49 Dose: Not Given Propofol (Diprivan -) 100 mls @ 2.109 mls/hr IVPB TITR ALPA; 5 MCG/KG/MIN PRN Reason: Protocol Last Admin: 02/14/17 22:18 Dose: 12.655 mls/hr - History Source History Provided By: Medical Record Limitations to Obtaining History: Intubated - Past Medical History Gastrointestinal: Yes: GI Bleed Heme/Onc: Yes: Thrombocytopenia Infectious Disease: Yes: Other (h/o TB treated per notes) Psych: Yes: Addictions (alcohol abuse) - Alcohol/Substance Use Hx Alcohol Use: Yes (alcohol) - Smoking History Smoking history: Never smoked Have you smoked in the past 12 months: No Home Medications - Allergies Allergies/Adverse Reactions: Allergies Allergy/AdvReac Type Severity Reaction Status Date / Time No Known Allergies Allergy Verified 02/14/17 16:34 - Home Medications Home Medications: Ambulatory Orders Aspirin [ASA -] 81 mg PO DAILY tab.chew 01/04/17 Pantoprazole Sodium [Protonix -] 20 mg PO DAILY #30 tablet 01/04/17 Family Disease History - Family Disease History Family History: Unable to Obtain Review of Systems Unable to obtain ROS, reason: pt intubated Physical Exam Vital Signs: Vital Signs Temperature 98.0 F 02/14/17 16:35 Pulse Rate 140 H 02/14/17 16:35 Respiratory Rate 24 02/14/17 18:30 Blood Pressure 104/89 02/14/17 16:35 O2 Sat by Pulse Oximetry (%) 100 02/14/17 16:35 Eyes: Yes: PERRL HENT: Yes: Atraumatic Cardiovascular: Yes: Tachycardia Respiratory: Yes: CTA Bilaterally, Intubated, Mechanically Ventilated Gastrointestinal: Yes: Distention (softly distended), Hypoactive Bowel Sounds Extremities: Yes: WNL Edema: No Peripheral Pulses WNL: Yes Neurological: Yes: Unresponsive (sedated) Labs: CBCD WBC 6.8 K/mm3 (4.0-10.0) D 02/14/17 19:00 RBC 4.12 M/mm3 (4.00-5.60) 02/14/17 19:00 Hgb 10.4 GM/dL (11.7-16.9) L 02/14/17 19:00 Hct 32.0 % (35.4-49) L 02/14/17 19:00 MCV 77.7 fl (80-96) L 02/14/17 19:00 MCHC 32.5 g/dl (32.0-35.9) 02/14/17 19:00 RDW 18.5 % (11.9-15.9) H 02/14/17 19:00 Plt Count 57 K/MM3 (134-434) L 02/14/17 19:00 MPV 8.6 fl (7.5-11.1) 02/14/17 19:00 CMP Sodium 139 mmol/L (136-145) 02/14/17 17:20 Potassium 3.1 mmol/L (3.5-5.1) L 02/14/17 17:20 Chloride 98 mmol/L (98-107) 02/14/17 17:20 Carbon Dioxide 23 mmol/L (21-32) D 02/14/17 17:20 Anion Gap 18 (8-16) H 02/14/17 17:20 BUN 43 mg/dL (7-18) H D 02/14/17 17:20 Creatinine 1.0 mg/dL (0.7-1.3) D 02/14/17 17:20 Creat Clearance w eGFR > 60 (>60) 02/14/17 17:20 Random Glucose 152 mg/dL (74-106) H D 02/14/17 17:20 Calcium 7.7 mg/dL (8.5-10.1) L 02/14/17 17:20 Total Bilirubin 0.7 mg/dL (0.2-1.0) 02/14/17 17:20 AST 69 U/L (15-37) H D 02/14/17 17:20 ALT 45 U/L (12-78) D 02/14/17 17:20 Alkaline Phosphatase 58 U/L (45-117) 02/14/17 17:20 Total Protein 7.6 g/dl (6.4-8.2) 02/14/17 17:20 Albumin 3.9 g/dl (3.4-5.0) 02/14/17 17:20 Hepatic Panel Total Bilirubin 0.7 mg/dL (0.2-1.0) 02/14/17 17:20 AST 69 U/L (15-37) H D 02/14/17 17:20 ALT 45 U/L (12-78) D 02/14/17 17:20 Alkaline Phosphatase 58 U/L (45-117) 02/14/17 17:20 Albumin 3.9 g/dl (3.4-5.0) 02/14/17 17:20 INR, PTT INR 1.20 (0.82-1.09) H 02/14/17 17:20 Imaging - Results Chest X-ray: Image Reviewed Problem List - Problems (1) Alcohol abuse Code(s): F10.10 - ALCOHOL ABUSE, UNCOMPLICATED (2) GIB (gastrointestinal bleeding) Code(s): K92.2 - GASTROINTESTINAL HEMORRHAGE, UNSPECIFIED Qualifiers: GI bleed type/associated pathology: gastritis Gastritis type: alcoholic Qualified Code(s): K29.21 - Alcoholic gastritis with bleeding (3) Tachycardia Code(s): R00.0 - TACHYCARDIA, UNSPECIFIED (4) Thrombocytopenia Code(s): D69.6 - THROMBOCYTOPENIA, UNSPECIFIED (5) Alcohol dependence with uncomplicated withdrawal Code(s): F10.230 - ALCOHOL DEPENDENCE WITH WITHDRAWAL, UNCOMPLICATED (6) Elevated LFTs Code(s): R79.89 - OTHER SPECIFIED ABNORMAL FINDINGS OF BLOOD CHEMISTRY (7) Acute respiratory failure Code(s): J96.00 - ACUTE RESPIRATORY FAILURE, UNSP W HYPOXIA OR HYPERCAPNIA (8) Anemia Code(s): D64.9 - ANEMIA, UNSPECIFIED Qualifiers: Iron deficiency anemia type: chronic blood loss Assessment/Plan 52 y/o man with h/o etoh abuse and GI bleed presents with 2 days of hematemesis and dark stools, found to be anemic with ongoing vomiting in ED and deterioration in mental status requiring intubation for airway protection, transferred to ICU with upper GI bleed, likely gordo mijares tear given history , complicated by thrombocytopenia and ASA use. -Dr. Finley following - plan per GI -maintain large bore IV access, currently has 2 #18, #20 gauge piv -transfuse as needed -transfuse plts as needed given recent ASA use -serial CBC -continue protonix gtt and octreotide gtts pending EGD -NPO -maintain intubation for airway protection -plan for EGD in am if no significant bleeding tonight -d/c ASA -not a known cirrhotic thus no indication for abx however will add zosyn for possible aspiration event given new fever and recent large volume hematemesis -monitor for ETOH withdrawal -consider abd US to eval for cirrhosis -ppx: protonix, sequential compression device Peace HERNANDEZ CCT: 35 mins
[2017-02-14] MEDS: PANTOPRAZOLE SODIUM 40 MG in SODIUM CHLORIDE 100 ML IVPB SCH ×2 (21:49→23:18)
[2017-02-14] MEDS: PROPOFOL 100 ML IVPB SCH (22:18)
[2017-02-14] MEDS: SODIUM CHLORIDE 1,000 ML IV SCH (22:19)
[2017-02-14 22:29] VITALS: BMI 26.6
[2017-02-14 23:10] LABS: ARTERIAL BLD GAS O2 SATURATION 96.7 % (90-98.9); ARTERIAL BLOOD GAS BASE EXCESS 0.4 meq/l (-2-2); ARTERIAL BLOOD GAS HCO3 24.4 meq/L (22-26); ARTERIAL BLOOD GAS PO2 87.6 mmHg (80-100); ARTERIAL BLOOD GAS pH 7.41 (7.35-7.45)
[2017-02-14 23:11] LABS: ALLENS TEST POSITIVE; ART PUNCT SITE LEFT RADIAL; LPM/O2% 40; PT. ON O2? YES
[2017-02-14 23:12] LABS: MECH. VENT. YES; TYPE OF O2 MECH. VENT.; VENT RATE 14; VT/PRESS 400
[2017-02-14 23:20] LABS: MCH 26.7 pg (25.7-33.7); MCHC 33.3 g/dl (32.0-35.9); MEAN CELL VOLUME 80.3 fl (80-96); MEAN PLT VOLUME 7.5 fl (7.5-11.1); PLATELET COUNT 85 K/MM3 (134-434); RDW 18.6 % (11.9-15.9); WHITE BLOOD COUNT 5.7 K/mm3 (4.0-10.0)
[2017-02-15] MEDS ORDERED: ACETAMINOPHEN 1000 MG/100 ML VIAL (NON FORMULARY) IVPB ONE ×2 (04:30→15:14)
[2017-02-15 06:29] LABS: BASOPHIL 0.8 % (0-2.0); EOSINOPHIL 0.1 % (0-4.5); MCH 27.2 pg (25.7-33.7); MCHC 33.8 g/dl (32.0-35.9); MEAN CELL VOLUME 80.4 fl (80-96); NEUTROPHILS 79.8 % (42.8-82.8); PLATELET COUNT 71 K/MM3 (134-434); RDW 17.9 % (11.9-15.9); WHITE BLOOD COUNT 4.5 K/mm3 (4.0-10.0)
[2017-02-15 06:50] LABS: ALBUMIN 2.8 g/dl (3.4-5.0); ALK PHOS 46 U/L (45-117); ANION GAP 16 (8-16); BILIRUBIN,TOTAL 0.7 mg/dL (0.2-1.0); CO2 23 mmol/L (21-32); CREATININE 0.5 mg/dL (0.7-1.3); GLUCOSE,RANDOM 123 mg/dL (74-106); SGOT/AST 46 U/L (15-37); SGPT/ALT 32 U/L (12-78); TOT PROT 5.3 g/dl (6.4-8.2)
[2017-02-15 07:05] LABS: CALCIUM 6.6 mg/dL (8.5-10.1)
--- NOTE | 2017-02-15 07:28 | PN ---
Physical Exam: 24H Events -yesterday: s/p 4U PRBC, 2U FFP, 2U Plts, intubated and sedated -overnight: Fever 101, given Acetaminophen 1g IV and 1x dose Zosyn SUBJECTIVE: Patient seen and examined in ICU. Mechanically ventilated, sedated with propofol. Dark stool in diaper. OBJECTIVE: Vital Signs Period Temp Pulse Resp BP Sys/Boykin Pulse Ox Last 24 Hr 98.0 F-99.6 F 115-142 17-28 97-145/67-95 Intake & Output 02/12/17 02/13/17 02/14/17 02/15/17 23:59 23:59 23:59 23:59 Intake Total 1123 779 Output Total 700 700 Balance 423 79 Weight 75 kg GENERAL: The patient is ventilated, sedated EYES: sclera anicteric, conjunctiva clear LUNGS: Mechanically ventilated, b/l scattered rhonchi HEART: tachycardia, regular rhythm, normal S1/S2 ABDOMEN: Soft, mild distention EXTREMITIES: 2+ pulses, warm, well-perfused, no edema SKIN: Warm, dry, normal turgor, no rashes or lesions noted Lines/Tubes: vent and yeung 02/15 CBC, BMP 02/15/17 05:00 02/15/17 05:00 02/15/17 05:00 Calcium 6.6 L* Hepatic Panel Total Bilirubin 0.7 mg/dL (0.2-1.0) 02/15/17 05:00 AST 46 U/L (15-37) H D 02/15/17 05:00 ALT 32 U/L (12-78) D 02/15/17 05:00 Alkaline Phosphatase 46 U/L (45-117) D 02/15/17 05:00 Albumin 2.8 g/dl (3.4-5.0) L D 02/15/17 05:00 Urine Color Ltyellow 02/14/17 19:39 Urine Appearance Clear 02/14/17 19:39 Urine pH 6.0 (5.0-8.0) 02/14/17 19:39 Ur Specific [place] 1.015 (1.005-1.025) 02/14/17 19:39 Urine Protein 1+ (NEGATIVE) H D 02/14/17 19:39 Urine Glucose (UA) Negative (NEGATIVE) 02/14/17 19:39 Urine Ketones 1+ (NEGATIVE) H 02/14/17 19:39 Urine Blood 1+ (NEGATIVE) H 02/14/17 19:39 Urine Nitrite Negative (NEGATIVE) 02/14/17 19:39 Urine Bilirubin Negative (NEGATIVE) 02/14/17 19:39 Urine RBC <1 /hpf (0-3) 02/14/17 19:39 Urine WBC 2 /hpf (3-5) 02/14/17 19:39 Urine Mucus Rare 02/14/17 19:39 02/14/17 02/14/17 02/14/17 17:16 17:20 19:39 Stool Occult Blood Positive Opiates Screen Negative Methadone Screen Negative Barbiturate Screen Negative Phencyclidine Screen Negative Ur Amphetamines Screen Negative MDMA (Ecstasy) Screen Negative Benzodiazepines Screen Positive Cocaine Screen Negative U Marijuana (THC) Screen Negative Alcohol, Quantitative 337.2 H* Micro: Urine cultures pending Blood cultures pending IMAGING: CXR 02/15/2017: ETT tip in satisfactory position, no pneumothorax or pleural effusion, stable interstitial markings in upper L lung compared to 12/28/16, ? superimposed infiltrates can not be excluded Active Medications Octreotide Acetate 1,200 mcg/ (Dextrose) 500 mls @ 20.83 mls/hr IVPB ASDIR ALPA PRN Reason: 50 MCG/HR Last Admin: 02/14/17 18:20 Dose: 20.83 mls/hr Sodium Chloride (Normal Saline -) 1,000 mls @ 75 mls/hr IV ASDIR ALPA Last Admin: 02/14/17 22:19 Dose: 75 mls/hr Pantoprazole Sodium 40 mg/ (Sodium Chloride) 100 mls @ 200 mls/hr IVPB BID ALPA Last Admin: 02/14/17 23:18 Dose: 200 mls/hr Propofol (Diprivan -) 100 mls @ 2.109 mls/hr IVPB TITR ALPA; 5 MCG/KG/MIN PRN Reason: Protocol Last Titration: 02/15/17 05:49 Dose: 50 mcg/kg/min Piperacillin Sod/Tazobactam (Sod 4.5 gm/ Dextrose) 100 mls @ 200 mls/hr IVPB BID ALPA PRN Reason: Protocol Piperacillin Sod/Tazobactam (Sod 4.5 gm/ Dextrose) 100 mls @ 200 mls/hr IVPB ONCE ONE Stop: 02/15/17 09:29 ASSESSMENT/PLAN: 52yo man h/o ETOH abuse and GIB bleeds (EGD 09/2015, no varices) who presented to ED with 2x days of hematemesis and dark stools. While in the ED, he continued to have hematemesis with mental status deterioration and was intubated for airway protection. On sedation without pressors. #GI -Dr. Finley consulted -EGD today -Octreotide and protonix gtt #Heme -Monitor H&H -Normal transfusion thresholds -Transfuse plts as needed -Hold ASA #ID -ID consulted -Abx per ID (Ceftriaxone and Flagyl) -Trend fever and WBC #Pulm -Continue mechanical ventilation #Neuro -Monitor for EtOH withdrawal #FEN: -NS @ 75cc/hr -Repleted Ca and Mg -NPO #ppx -DVT b/l SCDs -GI on protonix gtt d/w with Dr. Anoop Dowell MD PGY-1 Visit type - Emergency Visit Emergency Visit: No - New Patient This patient is new to me today: Yes Date on this admission: 02/15/17 - Critical Care Critical Care patient: Yes Total Critical Care Time (in minutes): 35 Critical Care Statement: The care of this patient involved high complexity decision making to prevent further life threatening deterioration of the patient 's condition and/or to evaluate & treat vital organ system(s) failure or risk of failure.
[2017-02-15] MEDS ORDERED: CALCIUM CHLORIDE 10% 1 GM/10 ML *VIAL IVPB ONE (07:41)
[2017-02-15] MEDS ORDERED: CALCIUM GLUCONATE 10% - 1,000 MG/10 ML VIAL IVPB ONE ×2 (08:30→15:00)
[2017-02-15] MEDS ORDERED: PIPERACILLIN/TAZOB 4.5 GM 4.5 GM in DEXTROSE 5%-WATER - 100 ML IVPB ONE (09:00)
[2017-02-15] MEDS ORDERED: POTASSIUM PHOSPHATE 30 MM in SODIUM CHLORIDE 250 ML IVPB ONE (09:30)
[2017-02-15] MEDS ORDERED: PT OWN MED DRAWER 7, Y5N ONE (10:05)
[2017-02-15] MEDS: PROPOFOL 100 ML IVPB SCH ×4 (11:42→23:30)
[2017-02-15] MEDS: PANTOPRAZOLE SODIUM 40 MG in SODIUM CHLORIDE 100 ML IVPB SCH ×2 (11:45→22:26)
[2017-02-15 13:08] LABS: BASOPHIL 0.4 % (0-2.0); MCH 26.7 pg (25.7-33.7); MEAN CELL VOLUME 80.8 fl (80-96); MEAN PLT VOLUME 8.2 fl (7.5-11.1); NEUTROPHILS 80.1 % (42.8-82.8); PLATELET COUNT 46 K/MM3 (134-434); RDW 17.8 % (11.9-15.9); WHITE BLOOD COUNT 4.3 K/mm3 (4.0-10.0)
[2017-02-15 13:26] LABS: ALBUMIN 2.5 g/dl (3.4-5.0); ALK PHOS 41 U/L (45-117); ANION GAP 15 (8-16); BILIRUBIN,TOTAL 0.6 mg/dL (0.2-1.0); CO2 24 mmol/L (21-32); CREATININE 0.5 mg/dL (0.7-1.3); GLUCOSE,RANDOM 158 mg/dL (74-106); MAGNESIUM 1.6 mg/dL (1.8-2.4); SGOT/AST 37 U/L (15-37); SGPT/ALT 26 U/L (12-78)
[2017-02-15 13:34] LABS: CALCIUM 6.6 mg/dL (8.5-10.1)
[2017-02-15 13:49] LABS: ANISOCYTOSIS 1+; HYPOCHROMIA 1+; MICROCYTOSIS 1+; PLATELET ESTIMATE DECREASED (NORMAL); POLYCHROMASIA F
--- NOTE | 2017-02-15 14:17 | PN ---
Teaching Attending Note Name of Resident: Tanna Dowell ATTENDING PHYSICIAN STATEMENT I saw and evaluated the patient. I reviewed the resident's note and discussed the case with the resident. I agree with the resident's findings and plan as documented. SUBJECTIVE: Patient seen and examined in the ICU. Intubated and sedated. Dark liquid stool in the diaper. No pressors. AC Mode of vent. Intake & Output 02/12/17 02/13/17 02/14/17 02/15/17 23:59 23:59 23:59 23:59 Intake Total 1123 779 Output Total 700 700 Balance 423 79 Weight 165 lb 5.547 oz Last Vital Signs Temp Pulse Resp BP Pulse Ox 101.1 F H 136 H 20 108/82 99 02/15/17 14:00 02/15/17 14:00 02/15/17 14:00 02/15/17 14:00 02/15/17 09:40 Active Medications Calcium Gluconate (Calcium Gluconate 10% -) 1,000 mg IVPB ONCE ONE Stop: 02/15/17 15:01 Octreotide Acetate 1,200 mcg/ (Dextrose) 500 mls @ 20.83 mls/hr IVPB ASDIR ALPA PRN Reason: 50 MCG/HR Last Admin: 02/14/17 18:20 Dose: 20.83 mls/hr Sodium Chloride (Normal Saline -) 1,000 mls @ 75 mls/hr IV ASDIR ALPA Last Admin: 02/14/17 22:19 Dose: 75 mls/hr Pantoprazole Sodium 40 mg/ (Sodium Chloride) 100 mls @ 200 mls/hr IVPB BID ALPA Last Admin: 02/15/17 11:45 Dose: 200 mls/hr Propofol (Diprivan -) 100 mls @ 2.109 mls/hr IVPB TITR ALPA; 5 MCG/KG/MIN PRN Reason: Protocol Last Admin: 02/15/17 11:42 Dose: 21.092 mls/hr Piperacillin Sod/Tazobactam (Sod 4.5 gm/ Dextrose) 100 mls @ 200 mls/hr IVPB BID ALPA PRN Reason: Protocol Magnesium Sulfate (Magnesium Sulfate) 2 gm IVPB ONCE ONE Stop: 02/15/17 14:21 Eyes: Yes: (-) Icterus HENT: Yes: Orally intubated Cardiovascular: Yes: Tachycardia Respiratory: Yes: Scattered bilateral rhonchi, Intubated, Mechanically Ventilated Gastrointestinal: Yes: Distention (softly distended), Hypoactive Bowel Sounds Extremities: Yes: WNL Edema: No Peripheral Pulses WNL: Yes Neurological: Yes: Sedated Labs: Laboratory Results - last 24 hr 02/14/17 02/14/17 02/14/17 17:16 17:20 17:20 WBC 4.9 D RBC 4.28 Hgb 10.5 L Hct 32.7 L MCV 76.3 L MCH 24.5 L MCHC 32.1 RDW 18.8 H D Plt Count 68 L D MPV 8.6 Neutrophils % 81.0 D Lymphocytes % 13.7 D Monocytes % 4.3 Eosinophils % 0.0 D Basophils % 1.0 Hypochromia Platelet Estimate Platelet Comment Polychromasia Basophilic Stippling Anisocytosis Microcytosis PT with INR 13.20 H INR 1.20 H Puncture Site ABG pH ABG pCO2 at Pt Temp ABG pO2 at Pt Temp ABG HCO3 ABG O2 Sat (Measured) ABG O2 Content ABG Base Excess [place] Test O2 Delivery Device Oxygen Flow Rate Vent Mode Vent Rate Mechanical Rate PEEP Pressure Support Vent Sodium Potassium Chloride Carbon Dioxide Anion Gap BUN Creatinine Creat Clearance w eGFR Random Glucose Calcium Phosphorus Magnesium Total Bilirubin AST ALT Alkaline Phosphatase Total Protein Albumin Urine Color Urine Appearance Urine pH Ur Specific [place] Urine Protein Urine Glucose (UA) Urine Ketones Urine Blood Urine Nitrite Urine Bilirubin Urine Urobilinogen Urine RBC Urine WBC Urine Mucus Stool Occult Blood Positive Opiates Screen Methadone Screen Barbiturate Screen Phencyclidine Screen Ur Amphetamines Screen MDMA (Ecstasy) Screen Benzodiazepines Screen Cocaine Screen U Marijuana (THC) Screen Alcohol, Quantitative Blood Type Antibody Screen Crossmatch 02/14/17 02/14/17 02/14/17 17:20 17:20 17:20 WBC RBC Hgb Hct MCV MCH MCHC RDW Plt Count MPV Neutrophils % Lymphocytes % Monocytes % Eosinophils % Basophils % Hypochromia Platelet Estimate Platelet Comment Polychromasia Basophilic Stippling Anisocytosis Microcytosis PT with INR INR Puncture Site ABG pH ABG pCO2 at Pt Temp ABG pO2 at Pt Temp ABG HCO3 ABG O2 Sat (Measured) ABG O2 Content ABG Base Excess [place] Test O2 Delivery Device Oxygen Flow Rate Vent Mode Vent Rate Mechanical Rate PEEP Pressure Support Vent Sodium 139 Potassium 3.1 L Chloride 98 Carbon Dioxide 23 D Anion Gap 18 H BUN 43 H D Creatinine 1.0 D Creat Clearance w eGFR > 60 Random Glucose 152 H D Calcium 7.7 L Phosphorus Magnesium Total Bilirubin 0.7 AST 69 H D ALT 45 D Alkaline Phosphatase 58 Total Protein 7.6 Albumin 3.9 Urine Color Urine Appearance Urine pH Ur Specific [place] Urine Protein Urine Glucose (UA) Urine Ketones Urine Blood Urine Nitrite Urine Bilirubin Urine Urobilinogen Urine RBC Urine WBC Urine Mucus Stool Occult Blood Opiates Screen Methadone Screen Barbiturate Screen Phencyclidine Screen Ur Amphetamines Screen MDMA (Ecstasy) Screen Benzodiazepines Screen Cocaine Screen U Marijuana (THC) Screen Alcohol, Quantitative 337.2 H* Blood Type A POSITIVE Antibody Screen Negative Crossmatch See Detail 02/14/17 02/14/17 02/14/17 19:00 19:39 19:39 WBC 6.8 D RBC 4.12 Hgb 10.4 L Hct 32.0 L MCV 77.7 L MCH 25.3 L MCHC 32.5 RDW 18.5 H Plt Count 57 L MPV 8.6 Neutrophils % 86.1 H Lymphocytes % 6.8 L D Monocytes % 6.3 Eosinophils % 0.0 Basophils % 0.8 Hypochromia Platelet Estimate Platelet Comment Polychromasia Basophilic Stippling Anisocytosis Microcytosis PT with INR INR Puncture Site ABG pH ABG pCO2 at Pt Temp ABG pO2 at Pt Temp ABG HCO3 ABG O2 Sat (Measured) ABG O2 Content ABG Base Excess [place] Test O2 Delivery Device Oxygen Flow Rate Vent Mode Vent Rate Mechanical Rate PEEP Pressure Support Vent Sodium Potassium Chloride Carbon Dioxide Anion Gap BUN Creatinine Creat Clearance w eGFR Random Glucose Calcium Phosphorus Magnesium Total Bilirubin AST ALT Alkaline Phosphatase Total Protein Albumin Urine Color Ltyellow Urine Appearance Clear Urine pH 6.0 Ur Specific [place] 1.015 Urine Protein 1+ H D Urine Glucose (UA) Negative Urine Ketones 1+ H Urine Blood 1+ H Urine Nitrite Negative Urine Bilirubin Negative Urine Urobilinogen Negative Urine RBC <1 Urine WBC 2 Urine Mucus Rare Stool Occult Blood Opiates Screen Negative Methadone Screen Negative Barbiturate Screen Negative Phencyclidine Screen Negative Ur Amphetamines Screen Negative MDMA (Ecstasy) Screen Negative Benzodiazepines Screen Positive Cocaine Screen Negative U Marijuana (THC) Screen Negative Alcohol, Quantitative Blood Type Antibody Screen Crossmatch 02/14/17 02/14/17 02/15/17 22:33 23:05 05:00 WBC 5.7 4.5 RBC 3.90 L 3.19 L Hgb 10.4 L 8.7 L D Hct 31.3 L 25.7 L D MCV 80.3 80.4 MCH 26.7 27.2 MCHC 33.3 33.8 RDW 18.6 H 17.9 H Plt Count 85 L D 71 L MPV 7.5 D 9.0 D Neutrophils % 79.8 Lymphocytes % 10.2 D Monocytes % 9.1 Eosinophils % 0.1 D Basophils % 0.8 Hypochromia Platelet Estimate Platelet Comment Polychromasia Basophilic Stippling Anisocytosis Microcytosis PT with INR INR Puncture Site Left radial ABG pH 7.41 ABG pCO2 at Pt Temp 39.0 ABG pO2 at Pt Temp 87.6 D ABG HCO3 24.4 ABG O2 Sat (Measured) 96.7 ABG O2 Content 13.5 L ABG Base Excess 0.4 [place] Test Positive O2 Delivery Device Mech. vent. Oxygen Flow Rate 40 Vent Mode A/c Vent Rate 14 Mechanical Rate Yes PEEP 5.0 Pressure Support Vent 400 Sodium Potassium Chloride Carbon Dioxide Anion Gap BUN Creatinine Creat Clearance w eGFR Random Glucose Calcium Phosphorus Magnesium Total Bilirubin AST ALT Alkaline Phosphatase Total Protein Albumin Urine Color Urine Appearance Urine pH Ur Specific [place] Urine Protein Urine Glucose (UA) Urine Ketones Urine Blood Urine Nitrite Urine Bilirubin Urine Urobilinogen Urine RBC Urine WBC Urine Mucus Stool Occult Blood Opiates Screen Methadone Screen Barbiturate Screen Phencyclidine Screen Ur Amphetamines Screen MDMA (Ecstasy) Screen Benzodiazepines Screen Cocaine Screen U Marijuana (THC) Screen Alcohol, Quantitative Blood Type Antibody Screen Crossmatch 02/15/17 02/15/17 02/15/17 05:00 12:40 12:40 WBC 4.3 RBC 2.60 L Hgb 6.9 L* D Hct 21.0 L D MCV 80.8 MCH 26.7 MCHC 33.0 RDW 17.8 H Plt Count 46 L D MPV 8.2 Neutrophils % 80.1 Lymphocytes % 11.4 Monocytes % 8.1 Eosinophils % 0.0 D Basophils % 0.4 Hypochromia 1+ Platelet Estimate Decreased Platelet Comment No clumping noted Polychromasia F Basophilic Stippling Few Anisocytosis 1+ Microcytosis 1+ PT with INR INR Puncture Site ABG pH ABG pCO2 at Pt Temp ABG pO2 at Pt Temp ABG HCO3 ABG O2 Sat (Measured) ABG O2 Content ABG Base Excess [place] Test O2 Delivery Device Oxygen Flow Rate Vent Mode Vent Rate Mechanical Rate PEEP Pressure Support Vent Sodium 147 H Potassium 3.0 L Chloride 108 H D Carbon Dioxide 23 Anion Gap 16 BUN 20 H D Creatinine 0.5 L D Creat Clearance w eGFR > 60 Random Glucose 123 H Calcium 6.6 L* Phosphorus 3.7 Magnesium Total Bilirubin 0.7 AST 46 H D ALT 32 D Alkaline Phosphatase 46 D Total Protein 5.3 L D Albumin 2.8 L D Urine Color Urine Appearance Urine pH Ur Specific [place] Urine Protein Urine Glucose (UA) Urine Ketones Urine Blood Urine Nitrite Urine Bilirubin Urine Urobilinogen Urine RBC Urine WBC Urine Mucus Stool Occult Blood Opiates Screen Methadone Screen Barbiturate Screen Phencyclidine Screen Ur Amphetamines Screen MDMA (Ecstasy) Screen Benzodiazepines Screen Cocaine Screen U Marijuana (THC) Screen Alcohol, Quantitative Blood Type Antibody Screen Crossmatch 02/15/17 12:40 WBC RBC Hgb Hct MCV MCH MCHC RDW Plt Count MPV Neutrophils % Lymphocytes % Monocytes % Eosinophils % Basophils % Hypochromia Platelet Estimate Platelet Comment Polychromasia Basophilic Stippling Anisocytosis Microcytosis PT with INR INR Puncture Site ABG pH ABG pCO2 at Pt Temp ABG pO2 at Pt Temp ABG HCO3 ABG O2 Sat (Measured) ABG O2 Content ABG Base Excess [place] Test O2 Delivery Device Oxygen Flow Rate Vent Mode Vent Rate Mechanical Rate PEEP Pressure Support Vent Sodium 149 H Potassium 3.4 L Chloride 110 H Carbon Dioxide 24 Anion Gap 15 BUN 16 Creatinine 0.5 L Creat Clearance w eGFR > 60 Random Glucose 158 H D Calcium 6.6 L* Phosphorus Magnesium 1.6 L Total Bilirubin 0.6 AST 37 ALT 26 Alkaline Phosphatase 41 L Total Protein 5.0 L Albumin 2.5 L Urine Color Urine Appearance Urine pH Ur Specific [place] Urine Protein Urine Glucose (UA) Urine Ketones Urine Blood Urine Nitrite Urine Bilirubin Urine Urobilinogen Urine RBC Urine WBC Urine Mucus Stool Occult Blood Opiates Screen Methadone Screen Barbiturate Screen Phencyclidine Screen Ur Amphetamines Screen MDMA (Ecstasy) Screen Benzodiazepines Screen Cocaine Screen U Marijuana (THC) Screen Alcohol, Quantitative Blood Type Antibody Screen Crossmatch Problem List - Problems (1) Alcohol abuse Code(s): F10.10 - ALCOHOL ABUSE, UNCOMPLICATED (2) GIB (gastrointestinal bleeding) Code(s): K92.2 - GASTROINTESTINAL HEMORRHAGE, UNSPECIFIED Qualifiers: GI bleed type/associated pathology: gastritis Gastritis type: alcoholic Qualified Code(s): K29.21 - Alcoholic gastritis with bleeding (3) Tachycardia Code(s): R00.0 - TACHYCARDIA, UNSPECIFIED (4) Thrombocytopenia Code(s): D69.6 - THROMBOCYTOPENIA, UNSPECIFIED (5) Alcohol dependence with uncomplicated withdrawal Code(s): F10.230 - ALCOHOL DEPENDENCE WITH WITHDRAWAL, UNCOMPLICATED (6) Elevated LFTs Code(s): R79.89 - OTHER SPECIFIED ABNORMAL FINDINGS OF BLOOD CHEMISTRY (7) Acute respiratory failure Code(s): J96.00 - ACUTE RESPIRATORY FAILURE, UNSP W HYPOXIA OR HYPERCAPNIA (8) Anemia Code(s): D64.9 - ANEMIA, UNSPECIFIED Qualifiers: Iron deficiency anemia type: chronic blood loss Assessment/Plan Normal transfusion thresholds Follow CBC Octreotide Hold ASA IVF PPI NPO Monitor for ETOH withdrawal Mechanical VTE prophylaxis GI evaluation Dr Davalos Critical care time spent in reviewing chart, evaluating patient and formulating plan - 36 minutes.
[2017-02-15] MEDS ORDERED: MAGNESIUM SULF 50% (8.12 MEQ/2 ML-1 GM VIAL) IVPB ONE ×2 (14:20→22:42)
[2017-02-15] MEDS ORDERED: MAGNESIUM SULF 50% (8.12 MEQ/2 ML-1 GM VIAL) ONE (14:35)
--- NOTE | 2017-02-15 14:44 | PN ---
Progress Note (short form) - Note Progress Note: ID Consult dictated Fever, probable aspiration secondary to N/V Possible aspiration pneumonia UGIB Pending c/s empiric coverage aspiration pneumonia with ceftriaxone/ flagyl HIV testing
[2017-02-15] MEDS ORDERED: MIDAZOLAM 100 MG in SODIUM CHLORIDE 100 ML IVPB SCH ×2 (15:00→15:04)
[2017-02-15] MEDS: METRONIDAZOLE 500 MG PREMIXED 100 ML IVPB SCH ×2 (15:35→18:54)
[2017-02-15] MEDS: CEFTRIAXONE 100 ML IVPB SCH (15:48)
[2017-02-15] MEDS ORDERED: MIDAZOLAM HCL 2 MG/2 ML SINGLE DOSE VIAL ONE ×3 (16:10)
[2017-02-15] MEDS ORDERED: KETAMINE HCL 500 MG/10 ML VIAL ONE (16:10)
[2017-02-15] MEDS ORDERED: ROCURONIUM BROMIDE 50 MG/5 ML VIAL ONE (16:11)
--- NOTE | 2017-02-15 16:48 | CONS ---
INFECTIOUS DISEASE CONSULTATION DATE OF CONSULTATION: DATE OF DICTATION: 02/15/2017 HISTORY OF PRESENT ILLNESS: The patient is a 52-year-old male with a history of chronic alcohol abuse, chronic liver disease, history of GI bleeding in the past, now evaluated for fever. History was obtained from the chart as he is presently intubated and cannot give a history. According to the notes, he had presented with a 2-day history of nausea and vomiting. He was noted to have hematemesis. The patient's course was complicated by tachycardia. He required intubation for airway protection. He was found to be severely anemic and required transfusion of multiple units of packed red cells, platelets, and FFP. At the present time, he is in the intensive care unit. He is intubated on mechanical ventilation. He is now febrile. Cultures were obtained. He was empirically treated with Zosyn. The patient is awake and responsive on the ventilator. No reports of recent febrile illness, shortness of breath, cough, sputum production, dysuria, hematuria, or diarrhea. PAST MEDICAL HISTORY: Positive for chronic alcohol abuse, history of GI bleeding. Upper endoscopy performed in 2015 showed a suspected Jessica-Gimenez tear. No evidence of esophageal varices. ALLERGIES: No known allergies. MEDICATIONS: Aspirin and Protonix. LABORATORY DATA: White count 4.3, hematocrit 21.0, platelet count 46. BUN 16, creatinine 0.5. Urinalysis: White cells 2. Chest x-ray shows increased markings bilaterally, cannot rule out infiltrate. PHYSICAL EXAMINATION: General: He is awake on the ventilator, somewhat agitated. Vital Signs: Temperature 101.1; blood pressure 108/82; pulse 136, regular; respirations 20 per minute. HEENT: Sclerae are anicteric. Patient is orally intubated. Heart: Sounds tachycardic. S1, S2. Lungs: Air entry bilaterally. Abdomen: Soft. No tenderness elicited. No palpable liver or spleen. Extremities: Negative for edema. IMPRESSION: 1. Fever, possible aspiration secondary to nausea and vomiting. 2. Upper gastrointestinal bleed. 3. Symptomatic anemia. 4. Alcohol abuse. 5. Chronic liver disease. Await cultures. Empiric antibiotic coverage for aspiration in this patient from the community with ceftriaxone and Flagyl. Patient is scheduled for an upper endoscopy. Transfuse blood products as needed. HIV testing when patient is able to give verbal consent. Thank you for the kind referral. JUDITH GARCIA M.D. MILE/[id number]
--- NOTE | 2017-02-15 17:14 | PN ---
Progress Note, Physician History of Present Illness: intubated - Current Medication List Current Medications: Active Medications Octreotide Acetate 1,200 mcg/ (Dextrose) 500 mls @ 20.83 mls/hr IVPB ASDIR ALPA PRN Reason: 50 MCG/HR Last Admin: 02/14/17 18:20 Dose: 20.83 mls/hr Sodium Chloride (Normal Saline -) 1,000 mls @ 75 mls/hr IV ASDIR ALPA Last Admin: 02/14/17 22:19 Dose: 75 mls/hr Pantoprazole Sodium 40 mg/ (Sodium Chloride) 100 mls @ 200 mls/hr IVPB BID ALPA Last Admin: 02/15/17 11:45 Dose: 200 mls/hr Propofol (Diprivan -) 100 mls @ 2.109 mls/hr IVPB TITR ALPA; 5 MCG/KG/MIN PRN Reason: Protocol Last Admin: 02/15/17 14:30 Dose: 21.092 mls/hr Ceftriaxone Sodium (Rocephin 2gm Ivpb (Pre-Docked)) 100 mls @ 200 mls/hr IVPB DAILY ALPA Last Admin: 02/15/17 15:48 Dose: 200 mls/hr Metronidazole (Flagyl 500mg Premixed Ivpb -) 100 mls @ 100 mls/hr IVPB Q8H-IV ALPA Last Admin: 02/15/17 15:35 Dose: 100 mls/hr Midazolam HCl 100 mg/ Sodium (Chloride) 100 mls @ 1 mls/hr IVPB TITR ALPA; 1 MG/ HR PRN Reason: Protocol Stop: 02/16/17 14:59 - Objective Vital Signs: Vital Signs Temperature 101.1 F H 02/15/17 14:00 Pulse Rate 128 H 02/15/17 16:00 Respiratory Rate 24 02/15/17 14:10 Blood Pressure 128/80 02/15/17 16:00 O2 Sat by Pulse Oximetry (%) 99 02/15/17 09:40 Constitutional: Yes: No Distress HENT: Yes: Atraumatic Neck: Yes: Supple Cardiovascular: Yes: Regular Rate and Rhythm Respiratory: Yes: Rhonchi Gastrointestinal: Yes: Normal Bowel Sounds Extremities: Yes: WNL Edema: No Peripheral Pulses WNL: Yes Neurological: Yes: Other (seated) Labs: CBC, BMP 02/15/17 12:40 02/15/17 12:40 INR, PTT INR 1.20 (0.82-1.09) H 02/14/17 17:20 Problem List - Problems (1) Alcohol abuse Assessment/Plan: pt is intubated will get detox consult Code(s): F10.10 - ALCOHOL ABUSE, UNCOMPLICATED (2) GIB (gastrointestinal bleeding) Assessment/Plan: s/p blood transfusion cbc stable gi consult Code(s): K92.2 - GASTROINTESTINAL HEMORRHAGE, UNSPECIFIED Qualifiers: GI bleed type/associated pathology: gastritis Gastritis type: alcoholic Qualified Code(s): K29.21 - Alcoholic gastritis with bleeding (3) Jessica-Gimenez tear Assessment/Plan: iv octreotide iv protonix Code(s): K22.6 - GASTRO-ESOPHAGEAL LACERATION-HEMORRHAGE SYNDROME (4) Thrombocytopenia Assessment/Plan: probably due to etoh abuse Code(s): D69.6 - THROMBOCYTOPENIA, UNSPECIFIED (5) Elevated LFTs Code(s): R79.89 - OTHER SPECIFIED ABNORMAL FINDINGS OF BLOOD CHEMISTRY (6) Pancytopenia Assessment/Plan: probably due to etohabuse Code(s): D61.818 - OTHER PANCYTOPENIA Assessment/Plan cc time 35 min
--- NOTE | 2017-02-15 18:38 | PN ---
GI Progress Note Subjective: Patient intubated. Had large melanotic stool earlier with drop in Hgb from 8 to 6 - Objective Vital Signs: Vital Signs Temperature 100.3 F H 02/15/17 18:20 Pulse Rate 128 H 02/15/17 18:20 Respiratory Rate 24 02/15/17 14:10 Blood Pressure 133/65 02/15/17 18:20 O2 Sat by Pulse Oximetry (%) 99 02/15/17 09:40 Constitutional: Well Nourished Neck: Yes: Supple Respiratory: Yes: CTA Bilaterally, Mechanically Ventilated ...Auscultate: Yes: Hyperactive Bowel Sounds Labs: CBC, BMP 02/15/17 12:40 02/15/17 12:40 INR, PTT INR 1.20 (0.82-1.09) H 02/14/17 17:20 Assessment/Plan Stat EGD done at bedside Patient with large, bleeding visible vessel in the distal esophagus. (NOT a varix) The area around the vessel was injected with 1:10,000 epi with significant slowing of bleeding 2 endoclips were then placed on the vessel and clamped, with total cessation of bleeding Continue protonix and octreotide. NPO. CBC in 4 hours and then q 8 hours Watch for re-bleed
[2017-02-15] MEDS: OCTREOTIDE ACETATE 1,200 MCG in DEXTROSE 5%-WATER - 488 ML IVPB SCH (18:54)
[2017-02-15] MEDS: SODIUM CHLORIDE 1,000 ML IV SCH (19:30)
--- NOTE | 2017-02-15 21:15 | HOSP ---
Subjective - Review of Symptoms Events since last encounter: Pt w/ EGD in evening by Dr. Finley. Noted to have dieulafoy's lesion, clipped w / hemostasis. Received 1u pRBC, 1u platelets post-procedure. BMP, CBC scheduled for 10PM. Last Hgb 6.9 at 12:40. Physical Examination Vital Signs: Vital Signs Temperature 100.1 F H 02/15/17 20:29 Pulse Rate 108 H 02/15/17 20:29 Respiratory Rate 18 02/15/17 19:05 Blood Pressure 116/83 02/15/17 20:29 O2 Sat by Pulse Oximetry (%) 99 02/15/17 09:40 Labs: CBC, BMP 02/15/17 12:40 02/15/17 12:40 Visit type - Emergency Visit Emergency Visit: No - New Patient This patient is new to me today: Yes Date on this admission: 02/15/17 - Critical Care Critical Care patient: Yes Total Critical Care Time (in minutes): 10
--- NOTE | 2017-02-15 21:24 | CONSULT ---
Consult Detox [facility] Reason for Current Admission/Consult: Alcohol withdrawal sx. Referred by:: Brittney Lagunas MD - History History of Present Illness: Pt. is intubated,unable to complete detox consultation at this time. 02/21/17 Pt. is extubated, out of the ICU ON med/surg floor. He's alert,oriented & cooperative. He has mild to moderate withdrawal sx. - History Source History Provided By: Patient, Medical Record Limitations to Obtaining History: No Limitations - Alcohol/Substance Use Hx Alcohol Use: Yes (alcohol) - Current Drug/Alcohol Use Alcohol Route: Oral Frequency: Daily Amount used: Vodka 1pint Date of Last Use: 02/14/17 - Past Medical History Gastrointestinal: Yes: GI Bleed Infectious Disease: Yes: Other (h/o TB treated 2008 per [facility] notes) Psych: Yes: Addictions (alcohol abuse) - Significant Medical Findings: Laboratory Last Values WBC 3.5 K/mm3 (4.0-10.0) L 02/21/17 06:00 Corrected WBC (auto) Cancelled 02/16/17 04:00 RBC 3.17 M/mm3 (4.00-5.60) L 02/21/17 06:00 Hgb 8.9 GM/dL (11.7-16.9) L D 02/21/17 06:00 Hct 26.7 % (35.4-49) L 02/21/17 06:00 MCV 84.4 fl (80-96) 02/21/17 06:00 MCH 28.0 pg (25.7-33.7) 02/21/17 06:00 MCHC 33.2 g/dl (32.0-35.9) 02/21/17 06:00 RDW 18.1 % (11.9-15.9) H 02/21/17 06:00 Plt Count 167 K/MM3 (134-434) 02/21/17 06:00 MPV 8.9 fl (7.5-11.1) 02/21/17 06:00 Total Counted 100 02/21/17 06:00 Neutrophils % No Result Required. 02/21/17 06:00 Neutrophils % (Manual) 41 % (42.8-82.8) L 02/21/17 06:00 Band Neuts % (Manual) 1 % (0-10) 02/21/17 06:00 Lymphocytes % No Result Required. 02/21/17 06:00 Lymphocytes % (Manual) 34 % (8-40) 02/21/17 06:00 Monocytes % 15.6 % (3.8-10.2) H 02/19/17 06:35 Monocytes % (Manual) 18 % (3.8-10.2) H* 02/21/17 06:00 Eosinophils % 2.0 % (0-4.5) 02/19/17 06:35 Eosinophils % (Manual) 4 % (0-4.5) 02/21/17 06:00 Basophils % 1.2 % (0-2.0) 02/19/17 06:35 Basophils % (Manual) 2 % (0-2.0) 02/21/17 06:00 Hypochromia 1+ 02/15/17 12:40 Platelet Estimate Decreased (NORMAL) 02/15/17 12:40 Platelet Comment No clumping noted 02/15/17 12:40 Platelet Comment Cancelled 02/16/17 04:00 RBC Morphology Cancelled 02/16/17 04:00 Polychromasia F 02/15/17 12:40 Basophilic Stippling Few 02/15/17 12:40 Anisocytosis 1+ 02/15/17 12:40 Microcytosis 1+ 02/15/17 12:40 PT with INR 13.20 SEC (9.98-11.88) H 02/14/17 17:20 INR 1.20 (0.82-1.09) H 02/14/17 17:20 Puncture Site Left radial 02/14/17 22:33 ABG pH 7.41 (7.35-7.45) 02/14/17 22:33 ABG pCO2 at Pt Temp 39.0 mmHg (35-45) 02/14/17 22:33 ABG pO2 at Pt Temp 87.6 mmHg (80-100) D 02/14/17 22:33 ABG HCO3 24.4 meq/L (22-26) 02/14/17 22:33 ABG O2 Sat (Measured) 96.7 % (90-98.9) 02/14/17 22:33 ABG O2 Content 13.5 % vol (15-22) L 02/14/17 22:33 ABG Base Excess 0.4 meq/l (-2-2) 02/14/17 22:33 Leighton Test Positive 02/14/17 22:33 O2 Delivery Device Mech. vent. 02/14/17 22:33 Oxygen Flow Rate 40 02/14/17 22:33 Vent Mode A/c 02/14/17 22:33 Vent Rate 14 02/14/17 22:33 Mechanical Rate Yes 02/14/17 22:33 PEEP 5.0 cmH2O 02/14/17 22:33 Pressure Support Vent 400 02/14/17 22:33 Sodium 140 mmol/L (136-145) 02/21/17 06:00 Potassium 3.6 mmol/L (3.5-5.1) 02/21/17 06:00 Chloride 104 mmol/L (98-107) 02/21/17 06:00 Carbon Dioxide 25 mmol/L (21-32) 02/21/17 06:00 Anion Gap 11 (8-16) 02/21/17 06:00 BUN 14 mg/dL (7-18) D 02/21/17 06:00 Creatinine 0.4 mg/dL (0.7-1.3) L 02/21/17 06:00 Creat Clearance w eGFR > 60 (>60) 02/21/17 06:00 Random Glucose 103 mg/dL (74-106) 02/21/17 06:00 Calcium 8.3 mg/dL (8.5-10.1) L 02/21/17 06:00 Phosphorus 2.3 mg/dL (2.5-4.9) L 02/19/17 06:35 Magnesium 1.7 mg/dL (1.8-2.4) L 02/19/17 06:35 Total Bilirubin 0.7 mg/dL (0.2-1.0) 02/21/17 06:00 AST 143 U/L (15-37) H D 02/21/17 06:00 ALT 87 U/L (12-78) H D 02/21/17 06:00 Alkaline Phosphatase 54 U/L (45-117) 02/21/17 06:00 Total Protein 6.5 g/dl (6.4-8.2) 02/21/17 06:00 Albumin 3.4 g/dl (3.4-5.0) 02/21/17 06:00 Urine Color Ltyellow 02/14/17 19:39 Urine Appearance Clear 02/14/17 19:39 Urine pH 6.0 (5.0-8.0) 02/14/17 19:39 Ur Specific [place]ona 1.015 (1.005-1.025) 02/14/17 19:39 Urine Protein 1+ (NEGATIVE) H D 02/14/17 19:39 Urine Glucose (UA) Negative (NEGATIVE) 02/14/17 19:39 Urine Ketones 1+ (NEGATIVE) H 02/14/17 19:39 Urine Blood 1+ (NEGATIVE) H 02/14/17 19:39 Urine Nitrite Negative (NEGATIVE) 02/14/17 19:39 Urine Bilirubin Negative (NEGATIVE) 02/14/17 19:39 Urine Urobilinogen Negative mg/dL (0.2-1.0) 02/14/17 19:39 Urine RBC <1 /hpf (0-3) 02/14/17 19:39 Urine WBC 2 /hpf (3-5) 02/14/17 19:39 Urine Mucus Rare 02/14/17 19:39 Stool Occult Blood Positive (NEGATIVE) 02/14/17 17:16 Opiates Screen Negative ng/ml (CZEYEL=499) 02/14/17 19:39 Methadone Screen Negative ng/ml (MXDJFT=767) 02/14/17 19:39 Barbiturate Screen Negative ng/ml (DSMBDI=551) 02/14/17 19:39 Phencyclidine Screen Negative ng/ml (CUTOFF=25) 02/14/17 19:39 Ur Amphetamines Screen Negative ng/ml (FFRZEM=216) 02/14/17 19:39 MDMA (Ecstasy) Screen Negative ng/ml (OQSKBO=468) 02/14/17 19:39 Benzodiazepines Screen Positive ng/ml (HFBHXE=857) 02/14/17 19:39 Cocaine Screen Negative ng/ml (LXKLQL=790) 02/14/17 19:39 U Marijuana (THC) Screen Negative ng/ml (CUTOFF=50) 02/14/17 19:39 Alcohol, Quantitative 337.2 mg/dl (0-5) H* 02/14/17 17:20 Blood Type A POSITIVE 02/14/17 17:20 Antibody Screen Negative 02/14/17 17:20 Crossmatch See Detail 02/14/17 17:20 BAL 337.2 CIWA Score - CIWA Score Nausea/Vomitin-No Nausea/No Vomiting Muscle Tremors: 2 Anxiety: 3 Agitation: 2 Paroxysmal Sweats: 2 Orientation: 0-Oriented Tacttile Disturbances: 0-None Auditory Disturbances: 0-None Visual Disturbances: 0-None Assessment Plan - Diagnosis (1) Alcohol dependence with uncomplicated withdrawal Status: Acute (2) GIB (gastrointestinal bleeding) Status: Acute Qualifiers: GI bleed type/associated pathology: gastritis Gastritis type: alcoholic Qualified Code(s): K29.21 - Alcoholic gastritis with bleeding (3) Jessica-Gimenez tear Status: Acute - Plan Plan: Refer to in-pt. rehab - Medication Detox Regimen/Protocol: Chantelle
--- NOTE | 2017-02-15 21:36 | EKG ---
Test Reason : Blood Pressure : / mmHG Vent. Rate : 121 BPM Atrial Rate : 121 BPM P-R Int : 152 ms QRS Dur : 086 ms QT Int : 340 ms P-R-T Axes : 031 026 018 degrees QTc Int : 482 ms SINUS TACHYCARDIA NONSPECIFIC ST AND T WAVE ABNORMALITY WHEN COMPARED WITH ECG OF 29-DEC-2016 01:43, ST-T CHANGES IN COMPARABLE LEADS REPEAT EKG IF CLINICALLY INDICATED Confirmed by CHANDANA KINGSTON MD ([id number] on 02/15/2017 9:35:59 PM Referred By: Confirmed By:CHANDANA KINGSTON MD
[2017-02-15 21:39] LABS: MCH 26.9 pg (25.7-33.7); MCHC 33.3 g/dl (32.0-35.9); MEAN CELL VOLUME 80.8 fl (80-96); MEAN PLT VOLUME 8.2 fl (7.5-11.1); PLATELET COUNT 55 K/MM3 (134-434); RDW 17.2 % (11.9-15.9); WHITE BLOOD COUNT 4.1 K/mm3 (4.0-10.0)
[2017-02-15] MEDS ORDERED: PIPERACILLIN/TAZOB 4.5 GM 4.5 GM in DEXTROSE 5%-WATER - 100 ML IVPB SCH (22:00)
[2017-02-15 22:06] LABS: ALBUMIN 2.2 g/dl (3.4-5.0); ANION GAP 5 (8-16); BILIRUBIN,TOTAL 0.3 mg/dL (0.2-1.0); CO2 29 mmol/L (21-32); CREATININE 0.4 mg/dL (0.7-1.3); GLUCOSE,RANDOM 149 mg/dL (74-106); SGOT/AST 30 U/L (15-37); SGPT/ALT 21 U/L (12-78); TOT PROT 4.4 g/dl (6.4-8.2)
[2017-02-15 22:07] LABS: ALK PHOS 34 U/L (45-117)
[2017-02-15 22:41] LABS: CALCIUM 6.6 mg/dL (8.5-10.1)
[2017-02-16] MEDS: PROPOFOL 100 ML IVPB SCH ×2 (01:06→03:02)
[2017-02-16] MEDS: METRONIDAZOLE 500 MG PREMIXED 100 ML IVPB SCH ×3 (01:06→18:31)
[2017-02-16 04:45] LABS: ALBUMIN 2.2 g/dl (3.4-5.0); ALK PHOS 34 U/L (45-117); ANION GAP 4 (8-16); BILIRUBIN,TOTAL 0.7 mg/dL (0.2-1.0); CO2 31 mmol/L (21-32); CREATININE 0.3 mg/dL (0.7-1.3); GLUCOSE,RANDOM 144 mg/dL (74-106); MAGNESIUM 2.2 mg/dL (1.8-2.4); PHOSPHOROUS 1.2 mg/dL (2.5-4.9); SGOT/AST 28 U/L (15-37); SGPT/ALT 20 U/L (12-78); TOT PROT 4.4 g/dl (6.4-8.2)
[2017-02-16 04:47] LABS: CALCIUM 6.9 mg/dL (8.5-10.1)
[2017-02-16 06:55] LABS: BASOPHIL 0.8 % (0-2.0); EOSINOPHIL 1.5 % (0-4.5); MCH 30.7 pg (25.7-33.7); MCHC 36.9 g/dl (32.0-35.9); MEAN CELL VOLUME 83.2 fl (80-96); MEAN PLT VOLUME 10.1 fl (7.5-11.1); NEUTROPHILS 58.6 % (42.8-82.8); PLATELET COUNT 50 K/MM3 (134-434); RDW 16.3 % (11.9-15.9)
--- NOTE | 2017-02-16 08:18 | PN ---
Physical Exam: 24H events: yesterday: bedside EGD, dilaefoy lesion overnight: 10PM CBC w/ Hgb of 6.1. Pt given 2 units pRBC, 1 unit FFP AM: f/u Hgb 7.9 SUBJECTIVE: Patient seen and examined in ICU. Remains intubated (day 2) and sedated with propofol and versed. OBJECTIVE: Vital Signs Period Temp Pulse Resp BP Sys/Boykin Pulse Ox Last 24 Hr 98.0 F-101.1 F 77-155 13-24 99-133/65-87 99-100 Intake & Output 02/13/17 02/14/17 02/15/17 02/16/17 23:59 23:59 23:59 23:59 Intake Total 1123 4035 700 Output Total 700 2500 700 Balance 423 1535 0 Weight 75 kg 79.1 kg GENERAL: The patient is ventilated, sedated EYES: sclera anicteric, conjunctiva clear LUNGS: Mechanically ventilated, b/l scattered rhonchi HEART: tachycardia, regular rhythm, normal S1/S2 ABDOMEN: Soft, mild distention EXTREMITIES: 2+ pulses, warm, well-perfused, no edema SKIN: Warm, dry, normal turgor, no rashes or lesions noted Lines/Tubes: vent and yeung 02/14 CBC, BMP 02/16/17 05:15 02/16/17 04:00 Hepatic Panel Total Bilirubin 0.7 mg/dL (0.2-1.0) D 02/16/17 04:00 AST 28 U/L (15-37) 02/16/17 04:00 ALT 20 U/L (12-78) 02/16/17 04:00 Alkaline Phosphatase 34 U/L (45-117) L 02/16/17 04:00 Albumin 2.2 g/dl (3.4-5.0) L 02/16/17 04:00 Ca- 6.9 (corrected 8.3) Mg- 2.2 Phos - 1.2 Microbiology 02/14/17 19:39 Urine - Urine Yeung Urine Culture - Final NO GROWTH OBTAINED 02/15/17 08:42 Blood - Peripheral Venous Blood Culture - Preliminary NO GROWTH OBTAINED AFTER 24 HOURS, INCUBATION TO CONTINUE FOR 4 DAYS. 02/15/17 08:52 Blood - Peripheral Venous Blood Culture - Preliminary NO GROWTH OBTAINED AFTER 24 HOURS, INCUBATION TO CONTINUE FOR 4 DAYS. Active Medications Octreotide Acetate 1,200 mcg/ (Dextrose) 500 mls @ 20.83 mls/hr IVPB ASDIR ALPA PRN Reason: 50 MCG/HR Last Admin: 02/15/17 18:54 Dose: 20.83 mls/hr Sodium Chloride (Normal Saline -) 1,000 mls @ 75 mls/hr IV ASDIR ALPA Last Admin: 02/15/17 19:30 Dose: 75 mls/hr Pantoprazole Sodium 40 mg/ (Sodium Chloride) 100 mls @ 200 mls/hr IVPB BID ALPA Last Admin: 02/15/17 22:26 Dose: 200 mls/hr Propofol (Diprivan -) 100 mls @ 2.109 mls/hr IVPB TITR ALPA; 5 MCG/KG/MIN PRN Reason: Protocol Last Titration: 02/16/17 03:35 Dose: 94.82 mcg/kg/min Ceftriaxone Sodium (Rocephin 2gm Ivpb (Pre-Docked)) 100 mls @ 200 mls/hr IVPB DAILY ALPA Last Admin: 02/15/17 15:48 Dose: 200 mls/hr Metronidazole (Flagyl 500mg Premixed Ivpb -) 100 mls @ 100 mls/hr IVPB Q8H-IV ALPA Last Admin: 02/16/17 01:06 Dose: 100 mls/hr Midazolam HCl 100 mg/ Sodium (Chloride) 100 mls @ 1 mls/hr IVPB TITR ALPA; 1 MG/ HR PRN Reason: Protocol Stop: 02/16/17 14:59 Last Titration: 02/16/17 03:01 Dose: 2 mg/hr ASSESSMENT/PLAN: 52yo man with h/o ETOH abuse and GIB bleeds (EGD 09/2015, no varices) who is POD1 s/p EGD with epi injections and clips to control bleeding from Dieulayfoy' s lesion. He was extubated today to 40% ventimask, satting at 100%. #GI -GI following -Octreotide and protonix gtt #Heme -Monitor H&H q8h -Normal transfusion thresholds -Transfuse plts as needed -Hold ASA #ID -ID consulted -Abx per ID (Ceftriaxone and Flagyl) -Trend fever and WBC #Pulm -s/p extubation -O2 therapy to maintain SpO2 >90% #Neuro -EtOH detox consulted (Dr. Doyle) -Monitor for signs of EtOH withdrawal #FEN: -NS @ 75cc/hr -Mg and Ca wnl, replete Phosphorus (NaPhos 40mm) -NPO #ppx -DVT b/l SCDs -GI on protonix gtt d/w with Dr. Eddie Dowell MD PGY-1 Visit type - Emergency Visit Emergency Visit: No - New Patient This patient is new to me today: No - Critical Care Critical Care patient: Yes Total Critical Care Time (in minutes): 35 Critical Care Statement: The care of this patient involved high complexity decision making to prevent further life threatening deterioration of the patient 's condition and/or to evaluate & treat vital organ system(s) failure or risk of failure.
--- NOTE | 2017-02-16 08:58 | PN ---
Progress Note, Physician Chief Complaint: Pt. intubated, sedation turned off recently to see if he can be weaned from ventilator. No apparent complications of anesthesia. - Current Medication List Current Medications: Active Medications Octreotide Acetate 1,200 mcg/ (Dextrose) 500 mls @ 20.83 mls/hr IVPB ASDIR ALPA PRN Reason: 50 MCG/HR Last Admin: 02/15/17 18:54 Dose: 20.83 mls/hr Sodium Chloride (Normal Saline -) 1,000 mls @ 75 mls/hr IV ASDIR ALPA Last Admin: 02/15/17 19:30 Dose: 75 mls/hr Pantoprazole Sodium 40 mg/ (Sodium Chloride) 100 mls @ 200 mls/hr IVPB BID ALPA Last Admin: 02/15/17 22:26 Dose: 200 mls/hr Propofol (Diprivan -) 100 mls @ 2.109 mls/hr IVPB TITR ALPA; 5 MCG/KG/MIN PRN Reason: Protocol Last Titration: 02/16/17 03:35 Dose: 94.82 mcg/kg/min Ceftriaxone Sodium (Rocephin 2gm Ivpb (Pre-Docked)) 100 mls @ 200 mls/hr IVPB DAILY ALPA Last Admin: 02/15/17 15:48 Dose: 200 mls/hr Metronidazole (Flagyl 500mg Premixed Ivpb -) 100 mls @ 100 mls/hr IVPB Q8H-IV ALPA Last Admin: 02/16/17 01:06 Dose: 100 mls/hr Midazolam HCl 100 mg/ Sodium (Chloride) 100 mls @ 1 mls/hr IVPB TITR ALPA; 1 MG/ HR PRN Reason: Protocol Stop: 02/16/17 14:59 Last Titration: 02/16/17 03:01 Dose: 2 mg/hr Sodium Phosphate 40 mm/ Sodium (Chloride) 513.3333 mls @ 64.167 mls/hr IVPB ONCE ONE Stop: 02/16/17 17:29 - Objective Vital Signs: Vital Signs Temperature 98.0 F 02/16/17 06:00 Pulse Rate 82 02/16/17 06:00 Respiratory Rate 14 02/16/17 08:20 Blood Pressure 125/79 02/16/17 06:00 O2 Sat by Pulse Oximetry (%) 99 02/16/17 08:20 Constitutional: Yes: Well Nourished, No Distress, Calm Respiratory: Yes: Intubated Neurological: Yes: Other (sedated) Labs: CBC, BMP 02/16/17 05:15 02/16/17 04:00 INR, PTT INR 1.20 (0.82-1.09) H 02/14/17 17:20 Assessment/Plan POD#1 s/p EGD with epi injections and clips to control bleeding.
[2017-02-16] MEDS ORDERED: SODIUM PHOSPHATE - 40 MM in SODIUM CHLORIDE 500 ML IVPB ONE (09:30)
--- NOTE | 2017-02-16 10:50 | PN ---
Progress Note, Physician History of Present Illness: Intubated Awake No acute distress Afebrile Pancytopenic BC prelim no growth - Current Medication List Current Medications: Active Medications Octreotide Acetate 1,200 mcg/ (Dextrose) 500 mls @ 20.83 mls/hr IVPB ASDIR ALPA PRN Reason: 50 MCG/HR Last Admin: 02/15/17 18:54 Dose: 20.83 mls/hr Sodium Chloride (Normal Saline -) 1,000 mls @ 75 mls/hr IV ASDIR ALPA Last Admin: 02/15/17 19:30 Dose: 75 mls/hr Pantoprazole Sodium 40 mg/ (Sodium Chloride) 100 mls @ 200 mls/hr IVPB BID ALPA Last Admin: 02/15/17 22:26 Dose: 200 mls/hr Propofol (Diprivan -) 100 mls @ 2.109 mls/hr IVPB TITR ALPA; 5 MCG/KG/MIN PRN Reason: Protocol Last Titration: 02/16/17 03:35 Dose: 94.82 mcg/kg/min Ceftriaxone Sodium (Rocephin 2gm Ivpb (Pre-Docked)) 100 mls @ 200 mls/hr IVPB DAILY ALPA Last Admin: 02/15/17 15:48 Dose: 200 mls/hr Metronidazole (Flagyl 500mg Premixed Ivpb -) 100 mls @ 100 mls/hr IVPB Q8H-IV ALPA Last Admin: 02/16/17 01:06 Dose: 100 mls/hr Midazolam HCl 100 mg/ Sodium (Chloride) 100 mls @ 1 mls/hr IVPB TITR ALPA; 1 MG/ HR PRN Reason: Protocol Stop: 02/16/17 14:59 Last Titration: 02/16/17 03:01 Dose: 2 mg/hr Sodium Phosphate 40 mm/ Sodium (Chloride) 513.3333 mls @ 64.167 mls/hr IVPB ONCE ONE Stop: 02/16/17 17:29 - Objective Vital Signs: Vital Signs Temperature 98.2 F 02/16/17 10:15 Pulse Rate 80 02/16/17 10:15 Respiratory Rate 14 02/16/17 10:15 Blood Pressure 134/89 02/16/17 10:15 O2 Sat by Pulse Oximetry (%) 100 02/16/17 09:43 Constitutional: Yes: No Distress Eyes: Yes: Conjunctiva Clear Cardiovascular: Yes: Regular Rate and Rhythm, S1, S2 Respiratory: Yes: Mechanically Ventilated Gastrointestinal: Yes: Normal Bowel Sounds, Soft. No: Tenderness Edema: No Labs: CBC, BMP 02/16/17 05:15 02/16/17 04:00 INR, PTT INR 1.20 (0.82-1.09) H 02/14/17 17:20 Assessment/Plan S/P GI bleed Fever, possible aspiration pneumonia Pancytopenia ETOH abuse Continue empiric ceftriaxone/ flagyl Wean as tolerated
[2017-02-16] MEDS: PANTOPRAZOLE SODIUM 40 MG in SODIUM CHLORIDE 100 ML IVPB SCH ×2 (10:56→22:02)
[2017-02-16] MEDS: CEFTRIAXONE 100 ML IVPB SCH (10:56)
--- NOTE | 2017-02-16 14:52 | PN ---
Teaching Attending Note Name of Resident: Tanna Dowell ATTENDING PHYSICIAN STATEMENT I saw and evaluated the patient. I reviewed the resident's note and discussed the case with the resident. I agree with the resident's findings and plan as documented. SUBJECTIVE: Pt seen and examined in the ICU. Extubated this AM during rounds, good cough and gag reflex. Noted to have bloody secretions. No further GI bleed noted. OBJECTIVE: Last Vital Signs Temp Pulse Resp BP Pulse Ox 98.6 F 90 14 130/86 99 02/16/17 14:00 02/16/17 14:00 02/16/17 14:00 02/16/17 14:00 02/16/17 12:00 Intake & Output 02/13/17 02/14/17 02/15/17 02/16/17 23:59 23:59 23:59 23:59 Intake Total 1123 4035 700 Output Total 700 2500 3100 Balance 423 1535 -2400 Weight 165 lb 5.547 oz 174 lb 6.17 oz Gen: intubated, arousable Heart: RRR Lung: scattered rhonchi Abd: soft, nontender Ext: no edema CBC, BMP 02/16/17 05:15 02/16/17 04:00 Active Medications Octreotide Acetate 1,200 mcg/ (Dextrose) 500 mls @ 20.83 mls/hr IVPB ASDIR ALPA PRN Reason: 50 MCG/HR Last Admin: 02/15/17 18:54 Dose: 20.83 mls/hr Sodium Chloride (Normal Saline -) 1,000 mls @ 75 mls/hr IV ASDIR ALPA Last Admin: 02/15/17 19:30 Dose: 75 mls/hr Pantoprazole Sodium 40 mg/ (Sodium Chloride) 100 mls @ 200 mls/hr IVPB BID ALPA Last Admin: 02/16/17 10:56 Dose: 200 mls/hr Propofol (Diprivan -) 100 mls @ 2.109 mls/hr IVPB TITR ALPA; 5 MCG/KG/MIN PRN Reason: Protocol Last Titration: 02/16/17 03:35 Dose: 94.82 mcg/kg/min Ceftriaxone Sodium (Rocephin 2gm Ivpb (Pre-Docked)) 100 mls @ 200 mls/hr IVPB DAILY ALPA Last Admin: 02/16/17 10:56 Dose: 200 mls/hr Metronidazole (Flagyl 500mg Premixed Ivpb -) 100 mls @ 100 mls/hr IVPB Q8H-IV ALPA Last Admin: 02/16/17 10:56 Dose: 100 mls/hr Midazolam HCl 100 mg/ Sodium (Chloride) 100 mls @ 1 mls/hr IVPB TITR ALPA; 1 MG/ HR PRN Reason: Protocol Stop: 02/16/17 14:59 Last Titration: 02/16/17 03:01 Dose: 2 mg/hr Sodium Phosphate 40 mm/ Sodium (Chloride) 513.3333 mls @ 64.167 mls/hr IVPB ONCE ONE Stop: 02/16/17 17:29 Last Admin: 02/16/17 13:50 Dose: 64.167 mls/hr ASSESSMENT AND PLAN: 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 - pt extubated - monitor H/H - transfuse as needed - holding all antiplatelets, anticoagulation - continue protonix, octreotide gtts - continue antibiotics - O2 to keep Spo2 >90% - monitor for withdrawal symptoms - IVF - NPO - replete lytes - continue ICU monitoring critical care time spent in reviewing chart, evaluating patient and formulating plan 40 min
[2017-02-16] MEDS: OCTREOTIDE ACETATE 1,200 MCG in DEXTROSE 5%-WATER - 488 ML IVPB SCH (18:31)
--- NOTE | 2017-02-16 18:50 | PN ---
Progress Note, Physician History of Present Illness: extubated - Current Medication List Current Medications: Active Medications Octreotide Acetate 1,200 mcg/ (Dextrose) 500 mls @ 20.83 mls/hr IVPB ASDIR ALPA PRN Reason: 50 MCG/HR Last Admin: 02/16/17 18:31 Dose: 20.83 mls/hr Sodium Chloride (Normal Saline -) 1,000 mls @ 75 mls/hr IV ASDIR ALPA Last Admin: 02/15/17 19:30 Dose: 75 mls/hr Pantoprazole Sodium 40 mg/ (Sodium Chloride) 100 mls @ 200 mls/hr IVPB BID ALPA Last Admin: 02/16/17 10:56 Dose: 200 mls/hr Propofol (Diprivan -) 100 mls @ 2.109 mls/hr IVPB TITR ALPA; 5 MCG/KG/MIN PRN Reason: Protocol Last Titration: 02/16/17 03:35 Dose: 94.82 mcg/kg/min Ceftriaxone Sodium (Rocephin 2gm Ivpb (Pre-Docked)) 100 mls @ 200 mls/hr IVPB DAILY ALPA Last Admin: 02/16/17 10:56 Dose: 200 mls/hr Metronidazole (Flagyl 500mg Premixed Ivpb -) 100 mls @ 100 mls/hr IVPB Q8H-IV ALPA Last Admin: 02/16/17 18:31 Dose: 100 mls/hr - Objective Vital Signs: Vital Signs Temperature 98.6 F 02/16/17 14:00 Pulse Rate 92 H 02/16/17 18:00 Respiratory Rate 12 02/16/17 18:00 Blood Pressure 130/80 02/16/17 18:00 O2 Sat by Pulse Oximetry (%) 100 02/16/17 17:50 Constitutional: Yes: No Distress HENT: Yes: Atraumatic Neck: Yes: Supple Cardiovascular: Yes: Regular Rate and Rhythm Respiratory: Yes: CTA Bilaterally Gastrointestinal: Yes: Normal Bowel Sounds Extremities: Yes: WNL Neurological: Yes: Alert Labs: CBC, BMP 02/16/17 05:15 02/16/17 04:00 INR, PTT INR 1.20 (0.82-1.09) H 02/14/17 17:20 Problem List - Problems (1) Alcohol abuse Assessment/Plan: will get detox consult Code(s): F10.10 - ALCOHOL ABUSE, UNCOMPLICATED (2) GIB (gastrointestinal bleeding) Assessment/Plan: s/p blood transfusion cbc stable NPO Code(s): K92.2 - GASTROINTESTINAL HEMORRHAGE, UNSPECIFIED Qualifiers: GI bleed type/associated pathology: gastritis Gastritis type: alcoholic Qualified Code(s): K29.21 - Alcoholic gastritis with bleeding (3) Jessica-Gimenez tear Assessment/Plan: iv octreotide iv protonix Code(s): K22.6 - GASTRO-ESOPHAGEAL LACERATION-HEMORRHAGE SYNDROME (4) Thrombocytopenia Assessment/Plan: probably due to etoh abuse Code(s): D69.6 - THROMBOCYTOPENIA, UNSPECIFIED (5) Elevated LFTs Code(s): R79.89 - OTHER SPECIFIED ABNORMAL FINDINGS OF BLOOD CHEMISTRY (6) Pancytopenia Assessment/Plan: probably due to etohabuse Code(s): D61.818 - OTHER PANCYTOPENIA Assessment/Plan ASSESSMENT 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 -
[2017-02-16] MEDS ORDERED: ONDANSETRON 4 MG/2 ML VIAL IVPB PRN (19:57)
[2017-02-16] MEDS ORDERED: ONDANSETRON 4 MG/2 ML VIAL ONE (19:59)
--- NOTE | 2017-02-16 21:09 | PN ---
GI Progress Note Subjective: Patient extubated, sitting up in bed. Feels much better but c/o epigastric pain. No new bleeding. Hgb stable and hemodynamically stable. c/o epigastric pain - Objective Vital Signs: Vital Signs Temperature 98.5 F 02/16/17 20:00 Pulse Rate 88 02/16/17 20:00 Respiratory Rate 12 02/16/17 20:00 Blood Pressure 130/77 02/16/17 20:00 O2 Sat by Pulse Oximetry (%) 100 02/16/17 17:50 Constitutional: Well Nourished, Mild Distress Neck: Yes: Supple Cardiovascular: Yes: Regular Rate and Rhythm Respiratory: Yes: CTA Bilaterally Gastrointestinal Inspection: Yes: Distention ...Auscultate: Yes: Normoactive Bowel Sounds ...Palpate: Yes: Soft (softly distended) Labs: CBC, BMP 02/16/17 05:15 02/16/17 04:00 INR, PTT INR 1.20 (0.82-1.09) H 02/14/17 17:20 Hepatic Panel Total Bilirubin 0.7 mg/dL (0.2-1.0) D 02/16/17 04:00 AST 28 U/L (15-37) 02/16/17 04:00 ALT 20 U/L (12-78) 02/16/17 04:00 Alkaline Phosphatase 34 U/L (45-117) L 02/16/17 04:00 Albumin 2.2 g/dl (3.4-5.0) L 02/16/17 04:00 Assessment/Plan Stat EGD done at bedside yesterday with unusual visible vessel injected and clipped in the esophagus. Continue protonix and octreotide for jnow and keep NPO. Trend CBCs Watch for re-bleed Over all, gradually improving
[2017-02-16] MEDS ORDERED: PT OWN MED DRAWER 7, Y5N ONE (21:13)
--- NOTE | 2017-02-16 21:22 | HOSP ---
Subjective - Review of Symptoms Events since last encounter: Pt improving clinically, complaining of epigastic pain and hunger. Remains NPO post-EGD. AM labs notable for Hgb 7.9, phos of 1.2. Pt received K-phos IV today. Pt refused 7PM labs. Will order BMP, CBC, phos, mag for midnight. No further episodes of hematemesis or melena. Stable, normotensive. Physical Examination Vital Signs: Vital Signs Temperature 98.5 F 02/16/17 20:00 Pulse Rate 88 02/16/17 20:00 Respiratory Rate 12 02/16/17 20:00 Blood Pressure 130/77 02/16/17 20:00 O2 Sat by Pulse Oximetry (%) 100 02/16/17 17:50 Labs: CBC, BMP 02/16/17 05:15 02/16/17 04:00 Visit type - Emergency Visit Emergency Visit: No - New Patient This patient is new to me today: No - Critical Care Critical Care patient: Yes Total Critical Care Time (in minutes): 15
[2017-02-16] MEDS: SODIUM CHLORIDE 1,000 ML IV SCH (22:02)
[2017-02-17 00:29] LABS: MCH 28.2 pg (25.7-33.7); MCHC 34.3 g/dl (32.0-35.9); MEAN CELL VOLUME 82.1 fl (80-96); PLATELET COUNT 59 K/MM3 (134-434); RDW 16.5 % (11.9-15.9); WHITE BLOOD COUNT 4.1 K/mm3 (4.0-10.0)
[2017-02-17 00:50] LABS: ANION GAP 13 (8-16); CO2 29 mmol/L (21-32); CREATININE 0.2 mg/dL (0.7-1.3); GLUCOSE,RANDOM 127 mg/dL (74-106); MAGNESIUM 1.4 mg/dL (1.8-2.4); PHOSPHOROUS 2.6 mg/dL (2.5-4.9)
[2017-02-17 00:58] LABS: CALCIUM 6.9 mg/dL (8.5-10.1)
[2017-02-17] MEDS ORDERED: CALCIUM GLUCONATE 10% - 1,000 MG/10 ML VIAL IVPB ONE (01:00)
[2017-02-17] MEDS ORDERED: MAGNESIUM SULF 50% (8.12 MEQ/2 ML-1 GM VIAL) IVPB ONE ×3 (01:01→18:07)
[2017-02-17] MEDS: PROPOFOL 100 ML IVPB SCH (01:06)
[2017-02-17] MEDS: KCL 10 MEQ IVPB 100 ML IVPB SCH ×4 (01:27→04:08)
[2017-02-17] MEDS: METRONIDAZOLE 500 MG PREMIXED 100 ML IVPB SCH ×3 (01:35→17:19)
[2017-02-17 06:19] LABS: MCH 28.2 pg (25.7-33.7); MCHC 34.2 g/dl (32.0-35.9); MEAN CELL VOLUME 82.5 fl (80-96); MEAN PLT VOLUME 9.9 fl (7.5-11.1); PLATELET COUNT 57 K/MM3 (134-434); RDW 16.4 % (11.9-15.9); WHITE BLOOD COUNT 4.1 K/mm3 (4.0-10.0)
[2017-02-17 06:48] LABS: ALBUMIN 2.9 g/dl (3.4-5.0); ANION GAP 12 (8-16); CALCIUM 7.2 mg/dL (8.5-10.1); CO2 31 mmol/L (21-32); GLUCOSE,RANDOM 117 mg/dL (74-106); MAGNESIUM 1.8 mg/dL (1.8-2.4)
[2017-02-17 06:53] LABS: ALK PHOS 47 U/L (45-117); BILIRUBIN,TOTAL 1.2 mg/dL (0.2-1.0); CREATININE 0.3 mg/dL (0.7-1.3); SGOT/AST 35 U/L (15-37); SGPT/ALT 21 U/L (12-78); TOT PROT 5.7 g/dl (6.4-8.2)
[2017-02-17] MEDS ORDERED: NAPH,MB-DB/K PH,MBDB POWDER PACKET PO ONE ×2 (07:45→08:30)
[2017-02-17] MEDS ORDERED: POTASSIUM CHLORIDE ORAL LIQUID 20 MEQ/15 ML PO ONE ×2 (08:30→18:51)
[2017-02-17] MEDS: CEFTRIAXONE 100 ML IVPB SCH (09:28)
[2017-02-17] MEDS: PANTOPRAZOLE SODIUM 40 MG in SODIUM CHLORIDE 100 ML IVPB SCH ×2 (09:28→21:14)
[2017-02-17] MEDS ORDERED: POTASSIUM PHOSPHATE 40 MM in SODIUM CHLORIDE 250 ML IVPB ONE (10:00)
--- NOTE | 2017-02-17 10:56 | PN ---
Progress Note, Physician History of Present Illness: Extubated Awake, alert No complaints breathing non-labored Temps down WBC WNL BC no growth - Current Medication List Current Medications: Active Medications Octreotide Acetate 1,200 mcg/ (Dextrose) 500 mls @ 20.83 mls/hr IVPB ASDIR ALPA PRN Reason: 50 MCG/HR Last Admin: 02/16/17 18:31 Dose: 20.83 mls/hr Sodium Chloride (Normal Saline -) 1,000 mls @ 75 mls/hr IV ASDIR ALPA Last Admin: 02/16/17 22:02 Dose: 75 mls/hr Pantoprazole Sodium 40 mg/ (Sodium Chloride) 100 mls @ 200 mls/hr IVPB BID ALPA Last Admin: 02/17/17 09:28 Dose: 200 mls/hr Ceftriaxone Sodium (Rocephin 2gm Ivpb (Pre-Docked)) 100 mls @ 200 mls/hr IVPB DAILY ALPA Last Admin: 02/17/17 09:28 Dose: 200 mls/hr Metronidazole (Flagyl 500mg Premixed Ivpb -) 100 mls @ 100 mls/hr IVPB Q8H-IV ALPA Last Admin: 02/17/17 09:30 Dose: 100 mls/hr Potassium Phosphate 40 mm/ (Sodium Chloride) 263.3333 mls @ 43.889 mls/hr IVPB ONCE ONE Stop: 02/17/17 15:59 Ondansetron HCl (Zofran Injection) 4 mg IVPB Q6H PRN PRN Reason: NAUSEA Last Admin: 02/16/17 20:45 Dose: 4 mg - Objective Vital Signs: Vital Signs Temperature 98.4 F 02/17/17 10:00 Pulse Rate 76 02/17/17 10:00 Respiratory Rate 14 02/17/17 10:00 Blood Pressure 125/69 02/17/17 10:00 O2 Sat by Pulse Oximetry (%) 100 02/16/17 21:00 Constitutional: Yes: No Distress Eyes: Yes: Conjunctiva Clear Cardiovascular: Yes: Regular Rate and Rhythm, S1, S2 Respiratory: Yes: CTA Bilaterally Gastrointestinal: Yes: Normal Bowel Sounds, Soft. No: Tenderness Edema: No Labs: CBC, BMP 02/17/17 05:10 02/17/17 05:10 INR, PTT INR 1.20 (0.82-1.09) H 02/14/17 17:20 Assessment/Plan S/P GI bleed S/P Fever, possible aspiration pneumonia Pancytopenia ETOH abuse Continue empiric ceftriaxone/ flagyl Still NPO Substitute po Augmentin when started on diet Please re-consult as needed
[2017-02-17] MEDS ORDERED: morphine CARPU-JECT 2 MG/1 ML DISP.SYRIN IVPUSH PRN (11:55)
[2017-02-17] MEDS ORDERED: KCL 10 MEQ IVPB 100 ML IVPB SCH (12:15)
--- NOTE | 2017-02-17 13:24 | PN ---
Teaching Attending Note Name of Resident: Tanna Dowell ATTENDING PHYSICIAN STATEMENT I saw and evaluated the patient. I reviewed the resident's note and discussed the case with the resident. I agree with the resident's findings and plan as documented. SUBJECTIVE: Patient seen and examined in the ICU. Remains extubated. Awake and interactive. Reports mid-epigastric discomfort. No CP or SOB. No occult bleeding noted. Intake & Output 02/14/17 02/15/17 02/16/17 02/17/17 23:59 23:59 23:59 23:59 Intake Total 1123 4035 2103 840 Output Total 700 2500 4900 900 Balance 423 1535 -2797 -60 Weight 165 lb 5.547 oz 174 lb 6.17 oz Last Vital Signs Temp Pulse Resp BP Pulse Ox 98.4 F 74 14 133/80 100 02/17/17 10:00 02/17/17 11:56 02/17/17 11:56 02/17/17 11:56 02/17/17 09:00 Active Medications Octreotide Acetate 1,200 mcg/ (Dextrose) 500 mls @ 20.83 mls/hr IVPB ASDIR ALPA PRN Reason: 50 MCG/HR Last Admin: 02/16/17 18:31 Dose: 20.83 mls/hr Sodium Chloride (Normal Saline -) 1,000 mls @ 75 mls/hr IV ASDIR ALPA Last Admin: 02/16/17 22:02 Dose: 75 mls/hr Pantoprazole Sodium 40 mg/ (Sodium Chloride) 100 mls @ 200 mls/hr IVPB BID ALPA Last Admin: 02/17/17 09:28 Dose: 200 mls/hr Ceftriaxone Sodium (Rocephin 2gm Ivpb (Pre-Docked)) 100 mls @ 200 mls/hr IVPB DAILY ALPA Last Admin: 02/17/17 09:28 Dose: 200 mls/hr Metronidazole (Flagyl 500mg Premixed Ivpb -) 100 mls @ 100 mls/hr IVPB Q8H-IV ALPA Last Admin: 02/17/17 09:30 Dose: 100 mls/hr Potassium Phosphate 40 mm/ (Sodium Chloride) 263.3333 mls @ 43.889 mls/hr IVPB ONCE ONE Stop: 02/17/17 15:59 Last Admin: 02/17/17 11:22 Dose: 43.889 mls/hr Morphine Sulfate (Morphine Injection -) 1 mg IVPUSH Q4H PRN PRN Reason: PAIN Stop: 02/18/17 11:54 Ondansetron HCl (Zofran Injection) 4 mg IVPB Q6H PRN PRN Reason: NAUSEA Last Admin: 02/16/17 20:45 Dose: 4 mg Gen: Extubated, awake and interactive Heart: RRR Lung: scattered rhonchi Abd: soft, nontender Ext: no edema Laboratory Results - last 24 hr 02/17/17 02/17/17 02/17/17 00:13 00:13 05:10 WBC 4.1 D 4.1 RBC 3.12 L D 3.10 L Hgb 8.8 L D 8.8 L Hct 25.6 L D 25.6 L MCV 82.1 82.5 MCH 28.2 28.2 MCHC 34.3 34.2 RDW 16.5 H 16.4 H Plt Count 59 L 57 L MPV 11.0 9.9 Sodium 135 L Potassium 2.8 L* Chloride 93 L D Carbon Dioxide 29 Anion Gap 13 BUN 3 L D Creatinine 0.2 L D Creat Clearance w eGFR Random Glucose 127 H Calcium 6.9 L* Phosphorus 2.6 D Magnesium 1.4 L D Total Bilirubin AST ALT Alkaline Phosphatase Total Protein Albumin 02/17/17 05:10 WBC RBC Hgb Hct MCV MCH MCHC RDW Plt Count MPV Sodium 135 L Potassium 2.9 L* Chloride 92 L Carbon Dioxide 31 Anion Gap 12 BUN 3 L Creatinine 0.3 L D Creat Clearance w eGFR > 60 Random Glucose 117 H Calcium 7.2 L Phosphorus 2.0 L D Magnesium 1.8 D Total Bilirubin 1.2 H D AST 35 D ALT 21 Alkaline Phosphatase 47 D Total Protein 5.7 L D Albumin 2.9 L D ASSESSMENT AND PLAN: 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 - O2 as needed - monitor H/H - Normal transfusion thresholds - Holding all antiplatelets, anticoagulation - PPI - Octreotide drip - ABX - O2 to keep Spo2 >90% - Monitor for withdrawal symptoms - PO when ok with GI - replete lytes - Floor Dr Davalos Critical care time spent in reviewing chart, evaluating patient and formulating plan 40 min
--- NOTE | 2017-02-17 14:23 | PN ---
Physical Exam: 24H Events: yesterday: extubated O/N: lytes repleted AM: Hgb stable SUBJECTIVE: Patient seen and examined in ICU. Complains of epigastric pain. No chest pain or SOB. 1x dark maroon BM this afternoon. OBJECTIVE: Vital Signs Period Temp Pulse Resp BP Sys/Boykin Pulse Ox Last 24 Hr 98 F-98.5 F 74-93 12-17 118-148/69-89 100-100 Intake & Output 02/14/17 02/15/17 02/16/17 02/17/17 23:59 23:59 23:59 23:59 Intake Total 1123 4035 2103 840 Output Total 700 2500 4900 900 Balance 423 1535 -2797 -60 Weight 75 kg 79.1 kg GENERAL: The patient is awake, alert, conversant in [place], nad EYES: sclera anicteric, conjunctiva clear LUNGS: scattered rhonchi HEART: regular rate and rhythm, normal S1/S2, no murmur, rub or gallop ABDOMEN: Soft, non-distended, ttp epigastrum EXTREMITIES: 2+ pulses, wwp, no edema SKIN: Warm, dry, normal turgor, no rashes or lesions noted Laboratory Results - last 24 hr 02/17/17 02/17/17 02/17/17 00:13 00:13 05:10 WBC 4.1 D 4.1 RBC 3.12 L D 3.10 L Hgb 8.8 L D 8.8 L Hct 25.6 L D 25.6 L MCV 82.1 82.5 MCH 28.2 28.2 MCHC 34.3 34.2 RDW 16.5 H 16.4 H Plt Count 59 L 57 L MPV 11.0 9.9 Sodium 135 L Potassium 2.8 L* Chloride 93 L D Carbon Dioxide 29 Anion Gap 13 BUN 3 L D Creatinine 0.2 L D Creat Clearance w eGFR Random Glucose 127 H Calcium 6.9 L* Phosphorus 2.6 D Magnesium 1.4 L D Total Bilirubin AST ALT Alkaline Phosphatase Total Protein Albumin 02/17/17 05:10 WBC RBC Hgb Hct MCV MCH MCHC RDW Plt Count MPV Sodium 135 L Potassium 2.9 L* Chloride 92 L Carbon Dioxide 31 Anion Gap 12 BUN 3 L Creatinine 0.3 L D Creat Clearance w eGFR > 60 Random Glucose 117 H Calcium 7.2 L Phosphorus 2.0 L D Magnesium 1.8 D Total Bilirubin 1.2 H D AST 35 D ALT 21 Alkaline Phosphatase 47 D Total Protein 5.7 L D Albumin 2.9 L D Active Medications Generic Name Dose Route Start Last Admin Trade Name Freq PRN Reason Stop Dose Admin Octreotide Acetate 1,200 mcg/ 500 mls @ 20.83 mls/hr 02/14/17 18:30 02/16/17 18 :31 Dextrose IVPB 20.83 mls/hr ASDIR ALPA Administration 50 MCG/HR Sodium Chloride 1,000 mls @ 75 mls/hr 02/14/17 20:45 02/16/17 22:02 Normal Saline - IV 75 mls/hr ASDIR ALPA Administration Pantoprazole Sodium 40 mg/ 100 mls @ 200 mls/hr 02/14/17 22:00 02/17/17 09:28 Sodium Chloride IVPB 200 mls/hr BID ALPA Administration Ceftriaxone Sodium 100 mls @ 200 mls/hr 02/15/17 14:45 02/17/17 09:28 Rocephin 2gm Ivpb (Pre-Docked) IVPB 200 mls/hr DAILY ALPA Administration Metronidazole 100 mls @ 100 mls/hr 02/15/17 15:00 02/17/17 09:30 Flagyl 500mg Premixed Ivpb - IVPB 100 mls/hr Q8H-IV ALPA Administration Potassium Phosphate 40 mm/ 263.3333 mls @ 43.889 mls/hr 02/17/17 10:00 11:22 Sodium Chloride IVPB 02/17/17 15:59 43.889 mls/hr ONCE ONE Administration Morphine Sulfate 1 mg 02/17/17 11:55 Morphine Injection - IVPUSH 02/18/17 11:54 Q4H PRN PAIN Ondansetron HCl 4 mg 02/16/17 19:57 02/16/17 20:45 Zofran Injection IVPB 4 mg Q6H PRN Administration NAUSEA ASSESSMENT/PLAN: 52yo man with h/o ETOH abuse and GIB bleeds (EGD 09/2015, no varices) who is POD2 s/p EGD with epi injections and clips to control bleeding from Dieulayfoy' s lesion. Hemodynamics and Hgb are stable. No signs of EtOH withdrawal. Discussed with GI today; okay with advancing to clear liquid diet. #GI -GI following -Octreotide and protonix gtt -Zofran prn for nausea #Heme -Monitor H&H -Normal transfusion thresholds -Transfuse plts as needed -Hold ASA #ID -ID consulted -Abx per ID (Ceftriaxone and Flagyl) -Trend fever and WBC #Pulm -O2 therapy to maintain SpO2 >90% #Neuro -EtOH detox consulted (Dr. Doyle) -Monitor for signs of EtOH withdrawal -Morphine 1mg q4h PRN for pain #FEN: -NS @ 75cc/hr -Repleting K, Phos, and Mg -Advanced to Clear liquids #ppx -DVT b/l SCDs -GI on protonix gtt #Dispo: continue ICU monitoring d/w with Dr. Anoop Dowell MD PGY-1 Visit type - Emergency Visit Emergency Visit: No - New Patient This patient is new to me today: No - Critical Care Critical Care patient: Yes Total Critical Care Time (in minutes): 35 Critical Care Statement: The care of this patient involved high complexity decision making to prevent further life threatening deterioration of the patient 's condition and/or to evaluate & treat vital organ system(s) failure or risk of failure.
[2017-02-17 16:08] LABS: MCH 28.3 pg (25.7-33.7); MCHC 34.1 g/dl (32.0-35.9); MEAN CELL VOLUME 82.9 fl (80-96); MEAN PLT VOLUME 9.3 fl (7.5-11.1); PLATELET COUNT 73 K/MM3 (134-434); RDW 16.8 % (11.9-15.9); WHITE BLOOD COUNT 3.7 K/mm3 (4.0-10.0)
[2017-02-17 16:43] LABS: ALBUMIN 2.9 g/dl (3.4-5.0); ALK PHOS 50 U/L (45-117); ANION GAP 8 (8-16); BILIRUBIN,TOTAL 0.6 mg/dL (0.2-1.0); CALCIUM 7.2 mg/dL (8.5-10.1); CO2 31 mmol/L (21-32); CREATININE 0.2 mg/dL (0.7-1.3); GLUCOSE,RANDOM 119 mg/dL (74-106); MAGNESIUM 1.6 mg/dL (1.8-2.4); PHOSPHOROUS 3.5 mg/dL (2.5-4.9); SGOT/AST 39 U/L (15-37); SGPT/ALT 22 U/L (12-78); TOT PROT 5.9 g/dl (6.4-8.2)
--- NOTE | 2017-02-17 17:43 | PN ---
Progress Note, Physician History of Present Illness: doing well - Current Medication List Current Medications: Active Medications Octreotide Acetate 1,200 mcg/ (Dextrose) 500 mls @ 20.83 mls/hr IVPB ASDIR ALPA PRN Reason: 50 MCG/HR Last Admin: 02/16/17 18:31 Dose: 20.83 mls/hr Sodium Chloride (Normal Saline -) 1,000 mls @ 75 mls/hr IV ASDIR ALPA Last Admin: 02/16/17 22:02 Dose: 75 mls/hr Pantoprazole Sodium 40 mg/ (Sodium Chloride) 100 mls @ 200 mls/hr IVPB BID ALPA Last Admin: 02/17/17 09:28 Dose: 200 mls/hr Ceftriaxone Sodium (Rocephin 2gm Ivpb (Pre-Docked)) 100 mls @ 200 mls/hr IVPB DAILY ALPA Last Admin: 02/17/17 09:28 Dose: 200 mls/hr Metronidazole (Flagyl 500mg Premixed Ivpb -) 100 mls @ 100 mls/hr IVPB Q8H-IV ALPA Last Admin: 02/17/17 17:19 Dose: 100 mls/hr Morphine Sulfate (Morphine Injection -) 1 mg IVPUSH Q4H PRN PRN Reason: PAIN Stop: 02/18/17 11:54 Ondansetron HCl (Zofran Injection) 4 mg IVPB Q6H PRN PRN Reason: NAUSEA Last Admin: 02/16/17 20:45 Dose: 4 mg - Objective Vital Signs: Vital Signs Temperature 98.4 F 02/17/17 10:00 Pulse Rate 79 02/17/17 16:00 Respiratory Rate 12 02/17/17 16:00 Blood Pressure 134/85 02/17/17 16:00 O2 Sat by Pulse Oximetry (%) 100 02/17/17 09:00 Constitutional: Yes: No Distress HENT: Yes: Atraumatic Neck: Yes: Supple Cardiovascular: Yes: Regular Rate and Rhythm Respiratory: Yes: CTA Bilaterally Gastrointestinal: Yes: Normal Bowel Sounds Extremities: Yes: WNL Edema: No Peripheral Pulses WNL: Yes Neurological: Yes: Alert, Oriented Labs: CBC, BMP 02/17/17 16:00 02/17/17 16:00 INR, PTT INR 1.20 (0.82-1.09) H 02/14/17 17:20 Problem List - Problems (1) Alcohol abuse Assessment/Plan: will get detox consult Code(s): F10.10 - ALCOHOL ABUSE, UNCOMPLICATED (2) GIB (gastrointestinal bleeding) Assessment/Plan: s/p blood transfusion cbc stable on clear liquid diet Code(s): K92.2 - GASTROINTESTINAL HEMORRHAGE, UNSPECIFIED Qualifiers: GI bleed type/associated pathology: gastritis Gastritis type: alcoholic Qualified Code(s): K29.21 - Alcoholic gastritis with bleeding (3) Jessica-Gimenez tear Assessment/Plan: iv octreotide iv protonix stable Code(s): K22.6 - GASTRO-ESOPHAGEAL LACERATION-HEMORRHAGE SYNDROME (4) Thrombocytopenia Assessment/Plan: probably due to etoh abuse Code(s): D69.6 - THROMBOCYTOPENIA, UNSPECIFIED (5) Elevated LFTs Code(s): R79.89 - OTHER SPECIFIED ABNORMAL FINDINGS OF BLOOD CHEMISTRY (6) Pancytopenia Assessment/Plan: probably due to etohabuse Code(s): D61.818 - OTHER PANCYTOPENIA
[2017-02-17] MEDS ORDERED: POTASSIUM CHLORIDE TABS 20 MEQ TABLET.ER (FP) PO ONE (18:07)
[2017-02-17] MEDS: OCTREOTIDE ACETATE 1,200 MCG in DEXTROSE 5%-WATER - 488 ML IVPB SCH (19:44)
[2017-02-17] MEDS ORDERED: PT OWN MED DRAWER 7, Y5N ONE (21:12)
[2017-02-17] MEDS: SODIUM CHLORIDE 1,000 ML IV SCH (21:14)
[2017-02-17 21:59] LABS: ANION GAP 10 (8-16); CALCIUM 7.3 mg/dL (8.5-10.1); CO2 29 mmol/L (21-32); CREATININE 0.4 mg/dL (0.7-1.3); GLUCOSE,RANDOM 137 mg/dL (74-106); MAGNESIUM 2.1 mg/dL (1.8-2.4); PHOSPHOROUS 2.3 mg/dL (2.5-4.9)
[2017-02-18] MEDS: METRONIDAZOLE 500 MG PREMIXED 100 ML IVPB SCH ×2 (01:51→10:43)
[2017-02-18] MEDS: SODIUM CHLORIDE 1,000 ML IV SCH ×2 (01:52→19:45)
[2017-02-18 05:52] LABS: MCH 28.2 pg (25.7-33.7); MCHC 33.7 g/dl (32.0-35.9); MEAN CELL VOLUME 83.7 fl (80-96); MEAN PLT VOLUME 8.8 fl (7.5-11.1); PLATELET COUNT 93 K/MM3 (134-434); RDW 16.8 % (11.9-15.9); WHITE BLOOD COUNT 3.7 K/mm3 (4.0-10.0)
[2017-02-18 06:29] LABS: ALBUMIN 3.1 g/dl (3.4-5.0); ALK PHOS 51 U/L (45-117); ANION GAP 11 (8-16); BILIRUBIN,TOTAL 0.8 mg/dL (0.2-1.0); CALCIUM 7.6 mg/dL (8.5-10.1); CO2 27 mmol/L (21-32); CREATININE 0.3 mg/dL (0.7-1.3); GLUCOSE,RANDOM 115 mg/dL (74-106); PHOSPHOROUS 1.5 mg/dL (2.5-4.9); SGOT/AST 45 U/L (15-37); SGPT/ALT 25 U/L (12-78); TOT PROT 6.1 g/dl (6.4-8.2)
--- NOTE | 2017-02-18 08:48 | PN ---
Physical Exam: SUBJECTIVE: Patient seen and examined in ICU, sitting in chair. No events overnight. Epigastric pain improving. Loose, dark stool x2. No chest pain, SOB, n/v. Tolerating clears. OBJECTIVE: Vital Signs Period Temp Pulse Resp BP Sys/Boykin Pulse Ox Last 24 Hr 98.2 F-98.6 F 72-98 12-19 87-146/62-85 100-100 Intake & Output 02/15/17 02/16/17 02/17/17 02/18/17 23:59 23:59 23:59 23:59 Intake Total 4035 2103 2741.2 1720 Output Total 2500 4900 900 1500 Balance 1535 -2797 1841.2 220 Weight 79.1 kg 73.9 kg GENERAL: The patient is awake, alert, conversant in [place], nad EYES: sclera anicteric, conjunctiva clear LUNGS: CTAB, no wheezes, rhonchi, or rales HEART: regular rate and rhythm, normal S1/S2, no murmur, rub or gallop ABDOMEN: Soft, non-distended, ttp epigastrum EXTREMITIES: 2+ pulses, wwp, no edema SKIN: Warm, dry, normal turgor, no rashes or lesions noted CBC, BMP 02/18/17 05:00 02/18/17 05:00 Ca - 7.6 (corrected 8.3) Mg - 2 Phos - 1.5 Hepatic Panel Total Bilirubin 0.8 mg/dL (0.2-1.0) D 02/18/17 05:00 AST 45 U/L (15-37) H 02/18/17 05:00 ALT 25 U/L (12-78) 02/18/17 05:00 Alkaline Phosphatase 51 U/L (45-117) 02/18/17 05:00 Albumin 3.1 g/dl (3.4-5.0) L 02/18/17 05:00 Microbiology 02/15/17 08:42 Blood - Peripheral Venous Blood Culture - Preliminary NO GROWTH OBTAINED AFTER 72 HOURS, INCUBATION TO CONTINUE FOR 2 DAYS. 02/15/17 08:52 Blood - Peripheral Venous Blood Culture - Preliminary NO GROWTH OBTAINED AFTER 72 HOURS, INCUBATION TO CONTINUE FOR 2 DAYS. 02/14/17 19:39 Urine - Urine Hsu Urine Culture - Final NO GROWTH OBTAINED Active Medications Amoxicillin/Clavulanate Potassium (Augmentin - 875mg Tablet) 1 tab PO BID@0800, 1730 ALPA Stop: 02/23/17 20:00 Sodium Chloride (Normal Saline -) 1,000 mls @ 75 mls/hr IV ASDIR ALPA Ondansetron HCl (Zofran Injection) 4 mg IVPB Q6H PRN PRN Reason: NAUSEA Pantoprazole Sodium (Protonix -) 40 mg PO BID ALPA Potassium Chloride (Potassium Chloride Oral Liquid) 40 meq PO ONCE ONE Stop: 02/18/17 14:09 Potassium Chloride (Potassium Chloride Oral Liquid) 20 meq PO ONCE ONE Stop: 02/18/17 14:09 Potassium Phos/Sodium Phos (Phos-Nak Packet -) 2 packet PO ONCE ONE Stop: 02/18/17 14:09 ASSESSMENT/PLAN: 52yo man with h/o ETOH abuse and GIB bleeds who is POD3 s/p EGD with epi injections and clips to control bleeding from Dieulayfoy's lesion. Hemodynamics and Hgb are stable. No signs of EtOH withdrawal. Tolerating Clear diet. Discussed case with Dr. Finley, can advance to soft diet for dinner, okay for floors. #GI -GI following -D/c octreotide and protonix gtt -Start pantoprazole 40mg PO BID -Zofran prn for nausea #Heme -Monitor H&H -Normal transfusion thresholds -Transfuse plts as needed -Hold ASA #ID -d/c Ceftriaxone and Flagyl -Start Augmentin 875mg PO BID tomorrow for 5days -monitor for signs of infection #Pulm -O2 therapy to maintain SpO2 >90% -encourage bedside spirometry #Neuro -Monitor for signs of EtOH withdrawal -Morphine 1mg q4h PRN for pain #FEN: -NS @ 75cc/hr -Repleting K and Phos -On clears, advance to soft diet for dinner #ppx -DVT b/l SCDs -GI on protonix PO BID #Dispo: transfer to M/S d/w with Dr. Anoop Dowell MD PGY-1 Visit type - Emergency Visit Emergency Visit: No - New Patient This patient is new to me today: No - Critical Care Critical Care patient: Yes Total Critical Care Time (in minutes): 35 Critical Care Statement: The care of this patient involved high complexity decision making to prevent further life threatening deterioration of the patient 's condition and/or to evaluate & treat vital organ system(s) failure or risk of failure.
[2017-02-18] MEDS ORDERED: NAPH,MB-DB/K PH,MBDB POWDER PACKET PO ONE ×2 (09:15→14:08)
[2017-02-18] MEDS ORDERED: POTASSIUM CHLORIDE TABS 20 MEQ TABLET.ER (FP) PO ONE (09:30)
[2017-02-18] MEDS ORDERED: POTASSIUM CHLORIDE ORAL LIQUID 20 MEQ/15 ML PO ONE ×4 (09:30→17:00)
[2017-02-18] MEDS: CEFTRIAXONE 100 ML IVPB SCH (10:42)
[2017-02-18] MEDS: PANTOPRAZOLE SODIUM 40 MG in SODIUM CHLORIDE 100 ML IVPB SCH (10:43)
--- NOTE | 2017-02-18 12:44 | PN ---
Teaching Attending Note Name of Resident: Tanna Dowell ATTENDING PHYSICIAN STATEMENT I saw and evaluated the patient. I reviewed the resident's note and discussed the case with the resident. I agree with the resident's findings and plan as documented. SUBJECTIVE: Patient seen and examined in the ICU. Awake and alert. Reports mild mid-epigastric discomfort. No CP or SOB. No occult bleeding noted. Intake & Output 02/15/17 02/16/17 02/17/17 02/18/17 23:59 23:59 23:59 23:59 Intake Total 4035 2103 2741.2 1720 Output Total 2500 4900 900 1500 Balance 1535 -2797 1841.2 220 Weight 174 lb 6.17 oz 162 lb 14.746 oz Last Vital Signs Temp Pulse Resp BP Pulse Ox 98.3 F 86 22 109/95 100 02/18/17 06:00 02/18/17 12:00 02/18/17 12:00 02/18/17 12:00 02/17/17 21:00 Active Medications Octreotide Acetate 1,200 mcg/ (Dextrose) 500 mls @ 20.83 mls/hr IVPB ASDIR ALPA PRN Reason: 50 MCG/HR Last Admin: 02/17/17 19:44 Dose: 20.83 mls/hr Sodium Chloride (Normal Saline -) 1,000 mls @ 75 mls/hr IV ASDIR ALPA Last Admin: 02/18/17 01:52 Dose: 75 mls/hr Pantoprazole Sodium 40 mg/ (Sodium Chloride) 100 mls @ 200 mls/hr IVPB BID ALPA Last Admin: 02/18/17 10:43 Dose: 200 mls/hr Ceftriaxone Sodium (Rocephin 2gm Ivpb (Pre-Docked)) 100 mls @ 200 mls/hr IVPB DAILY ALPA Last Admin: 02/18/17 10:42 Dose: 200 mls/hr Metronidazole (Flagyl 500mg Premixed Ivpb -) 100 mls @ 100 mls/hr IVPB Q8H-IV ALPA Last Admin: 02/18/17 10:43 Dose: 100 mls/hr Ondansetron HCl (Zofran Injection) 4 mg IVPB Q6H PRN PRN Reason: NAUSEA Last Admin: 02/16/17 20:45 Dose: 4 mg Gen: awake and alert Heart: RRR Lung: scattered rhonchi Abd: soft, nontender Ext: no edema Laboratory Results - last 24 hr 02/14/17 02/17/17 02/17/17 17:20 16:00 16:00 WBC 3.7 L RBC 3.16 L Hgb 8.9 L Hct 26.2 L MCV 82.9 MCH 28.3 MCHC 34.1 RDW 16.8 H Plt Count 73 L D MPV 9.3 Sodium 134 L Potassium 3.2 L Chloride 95 L Carbon Dioxide 31 Anion Gap 8 BUN 4 L D Creatinine 0.2 L D Creat Clearance w eGFR > 60 Random Glucose 119 H Calcium 7.2 L Phosphorus 3.5 D Magnesium 1.6 L Total Bilirubin 0.6 D AST 39 H ALT 22 Alkaline Phosphatase 50 Total Protein 5.9 L Albumin 2.9 L Blood Type A POSITIVE Antibody Screen Negative Crossmatch See Detail 02/17/17 02/18/17 02/18/17 21:14 05:00 05:00 WBC 3.7 L RBC 3.21 L Hgb 9.1 L Hct 26.9 L MCV 83.7 MCH 28.2 MCHC 33.7 RDW 16.8 H Plt Count 93 L D MPV 8.8 Sodium 136 136 Potassium 3.8 3.3 L Chloride 97 L 98 Carbon Dioxide 29 27 Anion Gap 10 11 BUN 4 L 4 L Creatinine 0.4 L D 0.3 L D Creat Clearance w eGFR > 60 Random Glucose 137 H 115 H Calcium 7.3 L 7.6 L Phosphorus 2.3 L D 1.5 L D Magnesium 2.1 D 2.0 Total Bilirubin 0.8 D AST 45 H ALT 25 Alkaline Phosphatase 51 Total Protein 6.1 L Albumin 3.1 L Blood Type Antibody Screen Crossmatch ASSESSMENT AND PLAN: 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 - O2 as needed - monitor H/H - Normal transfusion thresholds - Holding all antiplatelets, anticoagulation - PPI - (?) D/C Octreotide drip - O2 to keep Spo2 >90% - Monitor for withdrawal symptoms - PO per GI - replete lytes - Floor Dr Davalos Critical care time spent in reviewing chart, evaluating patient and formulating plan 40 min
[2017-02-18] MEDS ORDERED: SODIUM CHLORIDE 1,000 ML IV SCH (14:08)
[2017-02-18] MEDS ORDERED: ONDANSETRON 4 MG/2 ML VIAL IVPB PRN ×2 (14:08→18:03)
[2017-02-18] MEDS ORDERED: METRONIDAZOLE 500 MG PREMIXED 100 ML IVPB SCH (18:00)
--- NOTE | 2017-02-18 18:07 | PN ---
Progress Note, Physician History of Present Illness: doing well - Current Medication List Current Medications: Active Medications Amoxicillin/Clavulanate Potassium (Augmentin - 875mg Tablet) 1 tab PO BID@0800, 1730 ALPA Stop: 02/23/17 20:00 Sodium Chloride (Normal Saline -) 1,000 mls @ 75 mls/hr IV ASDIR [facility] Ondansetron HCl (Zofran Injection) 4 mg IVPB Q6H PRN PRN Reason: NAUSEA Pantoprazole Sodium (Protonix -) 40 mg PO BID [facility] - Objective Vital Signs: Vital Signs Temperature 98.1 F 02/18/17 14:00 Pulse Rate 95 H 02/18/17 16:00 Respiratory Rate 18 02/18/17 16:00 Blood Pressure 142/85 02/18/17 16:00 O2 Sat by Pulse Oximetry (%) 100 02/18/17 09:00 Constitutional: Yes: No Distress HENT: Yes: Atraumatic Neck: Yes: Supple Cardiovascular: Yes: Regular Rate and Rhythm Respiratory: Yes: CTA Bilaterally Gastrointestinal: Yes: Normal Bowel Sounds Extremities: Yes: WNL Neurological: Yes: Alert, Oriented Labs: CBC, BMP 02/18/17 05:00 02/18/17 05:00 INR, PTT INR 1.20 (0.82-1.09) H 02/14/17 17:20 Problem List - Problems (1) Alcohol abuse Assessment/Plan: detox consult on board Code(s): F10.10 - ALCOHOL ABUSE, UNCOMPLICATED (2) GIB (gastrointestinal bleeding) Assessment/Plan: s/p blood transfusion cbc stable on soft diet Code(s): K92.2 - GASTROINTESTINAL HEMORRHAGE, UNSPECIFIED Qualifiers: GI bleed type/associated pathology: gastritis Gastritis type: alcoholic Qualified Code(s): K29.21 - Alcoholic gastritis with bleeding (3) Jessica-Gimenez tear Assessment/Plan: off of iv octreotide on po protonix Code(s): K22.6 - GASTRO-ESOPHAGEAL LACERATION-HEMORRHAGE SYNDROME (4) Thrombocytopenia Assessment/Plan: probably due to etoh abuse Code(s): D69.6 - THROMBOCYTOPENIA, UNSPECIFIED (5) Elevated LFTs Code(s): R79.89 - OTHER SPECIFIED ABNORMAL FINDINGS OF BLOOD CHEMISTRY (6) Pancytopenia Assessment/Plan: probably due to etohabuse Code(s): D61.818 - OTHER PANCYTOPENIA Assessment/Plan ASSESSMENT 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 - Plan dc tomorrow if stable and cleared by gi
--- NOTE | 2017-02-18 19:19 | PN ---
Progress Note (short form) - Note Progress Note: No new bleeding-hemodynamically stable Hgb 9.1 Given soft diet instead of full liquid as requested. Had chicken, etc At high risk for displacing clips placed on large visible vessel in esophagus and experiencing re-bleed. Revert to clear liquids Can start FULL LIQUID for dinner if no new bleed
[2017-02-18 20:54] LABS: ANION GAP 6 (8-16); CALCIUM 7.9 mg/dL (8.5-10.1); CO2 26 mmol/L (21-32); CREATININE 0.5 mg/dL (0.7-1.3); GLUCOSE,RANDOM 106 mg/dL (74-106); PHOSPHOROUS 2.2 mg/dL (2.5-4.9)
[2017-02-18] MEDS: PANTOPRAZOLE 40 MG TABLET (FP) PO SCH (21:52)
[2017-02-18] MEDS ORDERED: PANTOPRAZOLE 40 MG TABLET (FP) PO SCH ×2 (22:00)
[2017-02-19] MEDS ORDERED: AMOX TR/POT CLAV 875MG/125MG TABLETS (FP) PO SCH (08:00)
[2017-02-19 08:19] LABS: BASOPHIL 1.2 % (0-2.0); MCH 28.1 pg (25.7-33.7); MCHC 33.3 g/dl (32.0-35.9); MEAN CELL VOLUME 84.2 fl (80-96); MEAN PLT VOLUME 8.6 fl (7.5-11.1); NEUTROPHILS 59.9 % (42.8-82.8); PLATELET COUNT 143 K/MM3 (134-434); RDW 18.3 % (11.9-15.9); WHITE BLOOD COUNT 4.9 K/mm3 (4.0-10.0)
[2017-02-19] MEDS: AMOX TR/POT CLAV 875MG/125MG TABLETS (FP) PO SCH ×2 (08:41→17:52)
[2017-02-19 08:57] LABS: ALBUMIN 3.6 g/dl (3.4-5.0); ALK PHOS 61 U/L (45-117); ANION GAP 8 (8-16); BILIRUBIN,TOTAL 0.7 mg/dL (0.2-1.0); CALCIUM 8.2 mg/dL (8.5-10.1); CO2 26 mmol/L (21-32); CREATININE 0.4 mg/dL (0.7-1.3); GLUCOSE,RANDOM 107 mg/dL (74-106); MAGNESIUM 1.7 mg/dL (1.8-2.4); PHOSPHOROUS 2.3 mg/dL (2.5-4.9); SGOT/AST 64 U/L (15-37); SGPT/ALT 36 U/L (12-78); TOT PROT 7.1 g/dl (6.4-8.2)
[2017-02-19] MEDS: PANTOPRAZOLE 40 MG TABLET (FP) PO SCH ×2 (09:16→21:39)
[2017-02-19] MEDS ORDERED: CEFTRIAXONE 100 ML IVPB SCH (10:00)
--- NOTE | 2017-02-19 16:25 | PN ---
GI Progress Note Subjective: no active bleeding tolerating clear liquids - Objective Vital Signs: Vital Signs Temperature 98.9 F 02/19/17 13:38 Pulse Rate 102 H 02/19/17 13:38 Respiratory Rate 18 02/19/17 13:38 Blood Pressure 136/80 02/19/17 13:38 O2 Sat by Pulse Oximetry (%) 97 02/19/17 11:23 Eyes: No: Sclera Icterus HENT: Yes: Atraumatic Neck: Yes: Supple Cardiovascular: Yes: Regular Rate and Rhythm Respiratory: Yes: CTA Bilaterally ...Palpate: Yes: Soft. No: Firm/Rigid, Guarding, Hepatomegaly, Pulsatile Mass, Tenderness, Epigastium Labs: CBC, BMP 02/19/17 06:35 02/19/17 06:35 INR, PTT INR 1.20 (0.82-1.09) H 02/14/17 17:20 Problem List - Problems (1) GIB (gastrointestinal bleeding) Assessment/Plan: secondary to dieulafoy's lesion r>made aware to follow up with dr Finley Protonix 40 mg daily for 3 mos soft diet Code(s): K92.2 - GASTROINTESTINAL HEMORRHAGE, UNSPECIFIED Qualifiers: GI bleed type/associated pathology: gastritis Gastritis type: alcoholic Qualified Code(s): K29.21 - Alcoholic gastritis with bleeding
--- NOTE | 2017-02-19 21:47 | PN ---
Progress Note, Physician History of Present Illness: Pt tolerated dinner - Current Medication List Current Medications: Active Medications Amoxicillin/Clavulanate Potassium (Augmentin - 875mg Tablet) 1 tab PO BID@0800, 1730 [facility] Stop: 02/23/17 20:00 Last Admin: 02/19/17 17:52 Dose: 1 tab Sodium Chloride (Normal Saline -) 1,000 mls @ 75 mls/hr IV ASDIR [facility] Last Admin: 02/18/17 19:45 Dose: Not Given Ondansetron HCl (Zofran Injection) 4 mg IVPB Q6H PRN PRN Reason: NAUSEA Pantoprazole Sodium (Protonix -) 40 mg PO BID [facility] Last Admin: 02/19/17 09:16 Dose: 40 mg - Objective Vital Signs: Vital Signs Temperature 98.1 F 02/19/17 17:32 Pulse Rate 106 H 02/19/17 17:32 Respiratory Rate 20 02/19/17 17:32 Blood Pressure 145/67 02/19/17 17:32 O2 Sat by Pulse Oximetry (%) 97 02/19/17 11:23 Constitutional: Yes: Anxious Neck: Yes: WNL, Supple Cardiovascular: Yes: WNL, Regular Rate and Rhythm Respiratory: Yes: WNL, Regular, CTA Bilaterally Gastrointestinal: Yes: WNL, Normal Bowel Sounds, Soft Edema: No Labs: CBC, BMP 02/19/17 06:35 02/19/17 06:35 INR, PTT INR 1.20 (0.82-1.09) H 02/14/17 17:20 Problem List - Problems (1) GIB (gastrointestinal bleeding) Assessment/Plan: H/H improved No further episode of bleeding As per GI Code(s): K92.2 - GASTROINTESTINAL HEMORRHAGE, UNSPECIFIED Qualifiers: GI bleed type/associated pathology: gastritis Gastritis type: alcoholic Qualified Code(s): K29.21 - Alcoholic gastritis with bleeding (2) Anemia Assessment/Plan: Due acute blood loss from GI bleed H/H stable Code(s): D64.9 - ANEMIA, UNSPECIFIED Qualifiers: Iron deficiency anemia type: chronic blood loss (3) Alcohol abuse Code(s): F10.10 - ALCOHOL ABUSE, UNCOMPLICATED
[2017-02-19] MEDS: SODIUM CHLORIDE 1,000 ML IV SCH (21:52)
[2017-02-20] MEDS ORDERED: LORazepam 2 MG/ML SDV VIAL IM ONE ×2 (05:03→09:45)
[2017-02-20] MEDS ORDERED: LORazepam 2 MG/ML SDV VIAL ONE (05:06)
--- NOTE | 2017-02-20 05:14 | HOSP ---
Subjective - Review of Symptoms Events since last encounter: Called to see a patient severely agitiated, and combative, threatening to leave the hospital and yelling for his medication. He pulled out his intravenous line. Patient is seen standing outside his room, tremulous, yelling, diaphoretic and breathing heavily, in a combative stance Attempts were made to reason with him but he was continously agitated Hospital Security was present to help de-escalate the situation Vital Signs - 8 hr 02/20/17 01:00 Temperature 98.9 F Pulse Rate 117 H Respiratory 20 Rate Blood Pressure 132/96 CBCD WBC 4.9 K/mm3 (4.0-10.0) D 02/19/17 06:35 RBC 3.56 M/mm3 (4.00-5.60) L 02/19/17 06:35 Hgb 10.0 GM/dL (11.7-16.9) L 02/19/17 06:35 Hct 29.9 % (35.4-49) L 02/19/17 06:35 MCV 84.2 fl (80-96) 02/19/17 06:35 MCHC 33.3 g/dl (32.0-35.9) 02/19/17 06:35 RDW 18.3 % (11.9-15.9) H 02/19/17 06:35 Plt Count 143 K/MM3 (134-434) D 02/19/17 06:35 MPV 8.6 fl (7.5-11.1) 02/19/17 06:35 CMP Sodium 135 mmol/L (136-145) L 02/19/17 06:35 Potassium 3.1 mmol/L (3.5-5.1) L D 02/19/17 06:35 Chloride 101 mmol/L (98-107) 02/19/17 06:35 Carbon Dioxide 26 mmol/L (21-32) 02/19/17 06:35 Anion Gap 8 (8-16) 02/19/17 06:35 BUN 6 mg/dL (7-18) L D 02/19/17 06:35 Creatinine 0.4 mg/dL (0.7-1.3) L 02/19/17 06:35 Creat Clearance w eGFR > 60 (>60) 02/19/17 06:35 Calcium 8.2 mg/dL (8.5-10.1) L 02/19/17 06:35 Total Bilirubin 0.7 mg/dL (0.2-1.0) 02/19/17 06:35 AST 64 U/L (15-37) H D 02/19/17 06:35 ALT 36 U/L (12-78) D 02/19/17 06:35 Alkaline Phosphatase 61 U/L (45-117) 02/19/17 06:35 Total Protein 7.1 g/dl (6.4-8.2) 02/19/17 06:35 Albumin 3.6 g/dl (3.4-5.0) 02/19/17 06:35 Assessment: Substance withdrawal- likely alcohol Plan: IM Ativan 2mg stat- given. Patient agreed to return to the bed to get the medication. Physical Examination Vital Signs: Vital Signs Temperature 98.9 F 02/20/17 01:00 Pulse Rate 117 H 02/20/17 01:00 Respiratory Rate 20 02/20/17 01:00 Blood Pressure 132/96 02/20/17 01:00 O2 Sat by Pulse Oximetry (%) 97 02/19/17 21:00 Labs: CBC, BMP 02/19/17 06:35 02/19/17 06:35 Visit type - Emergency Visit Emergency Visit: Yes ED Registration Date: 02/14/17 Care time: The patient presented to the Emergency Department on the above date and was hospitalized for further evaluation of their emergent condition. - New Patient This patient is new to me today: Yes Date on this admission: 02/20/17 - Critical Care Critical Care patient: No
[2017-02-20] MEDS: AMOX TR/POT CLAV 875MG/125MG TABLETS (FP) PO SCH ×2 (08:41→16:54)
[2017-02-20] MEDS ORDERED: HALOPERIDOL LACTATE 5 MG/ML IM ONE (09:45)
[2017-02-20] MEDS: PANTOPRAZOLE 40 MG TABLET (FP) PO SCH ×3 (09:59→22:09)
[2017-02-20] MEDS: SODIUM CHLORIDE 1,000 ML IV SCH (21:48)
[2017-02-20] MEDS: LORazepam 0.5 MG TABLET PO PRN (22:09)
--- NOTE | 2017-02-20 23:44 | PN ---
Progress Note, Physician History of Present Illness: Pt agitated and anxious today and security had to be called - Current Medication List Current Medications: Active Medications Amoxicillin/Clavulanate Potassium (Augmentin - 875mg Tablet) 1 tab PO BID@0800, 1730 [facility] Stop: 02/23/17 20:00 Last Admin: 02/20/17 16:54 Dose: 1 tab Sodium Chloride (Normal Saline -) 1,000 mls @ 75 mls/hr IV ASDIR [facility] Last Admin: 02/20/17 21:48 Dose: Not Given Lorazepam (Ativan -) 0.5 mg PO TID PRN PRN Reason: ANXIETY Last Admin: 02/20/17 22:09 Dose: 0.5 mg Ondansetron HCl (Zofran Injection) 4 mg IVPB Q6H PRN PRN Reason: NAUSEA Pantoprazole Sodium (Protonix -) 40 mg PO BID [facility] Last Admin: 02/20/17 22:09 Dose: 40 mg - Objective Vital Signs: Vital Signs Temperature 97.8 F 02/20/17 22:00 Pulse Rate 96 H 02/20/17 22:00 Respiratory Rate 20 02/20/17 22:00 Blood Pressure 120/51 02/20/17 22:00 O2 Sat by Pulse Oximetry (%) 97 02/20/17 21:00 Constitutional: Yes: Anxious Cardiovascular: Yes: Tachycardia Respiratory: Yes: WNL, Regular, CTA Bilaterally Gastrointestinal: Yes: WNL, Normal Bowel Sounds, Soft Edema: No Labs: CBC, BMP 02/19/17 06:35 02/19/17 06:35 INR, PTT INR 1.20 (0.82-1.09) H 02/14/17 17:20 Problem List - Problems (1) Alcohol abuse Assessment/Plan: Pt very agitated and ?confused Not able to dc pt today Will get psych and detox consults Ativan prn Check labs in am SW consult for dc planning Code(s): F10.10 - ALCOHOL ABUSE, UNCOMPLICATED (2) GIB (gastrointestinal bleeding) Assessment/Plan: H/H improved No further episode of bleeding Pt tolerating diet Code(s): K92.2 - GASTROINTESTINAL HEMORRHAGE, UNSPECIFIED Qualifiers: GI bleed type/associated pathology: gastritis Gastritis type: alcoholic Qualified Code(s): K29.21 - Alcoholic gastritis with bleeding (3) Anemia Assessment/Plan: Due acute blood loss from GI bleed H/H stable Check labs in am Code(s): D64.9 - ANEMIA, UNSPECIFIED Qualifiers: Iron deficiency anemia type: chronic blood loss
[2017-02-21 07:57] LABS: MCHC 33.2 g/dl (32.0-35.9); MEAN CELL VOLUME 84.4 fl (80-96); MEAN PLT VOLUME 8.9 fl (7.5-11.1); PLATELET COUNT 167 K/MM3 (134-434); RDW 18.1 % (11.9-15.9); WHITE BLOOD COUNT 3.5 K/mm3 (4.0-10.0)
[2017-02-21 08:39] LABS: ALBUMIN 3.4 g/dl (3.4-5.0); ALK PHOS 54 U/L (45-117); ANION GAP 11 (8-16); BILIRUBIN,TOTAL 0.7 mg/dL (0.2-1.0); CALCIUM 8.3 mg/dL (8.5-10.1); CO2 25 mmol/L (21-32); CREATININE 0.4 mg/dL (0.7-1.3); GLUCOSE,RANDOM 103 mg/dL (74-106); SGOT/AST 143 U/L (15-37); SGPT/ALT 87 U/L (12-78); TOT PROT 6.5 g/dl (6.4-8.2)
[2017-02-21 09:11] LABS: BASOPHIL (MANUAL) 2 % (0-2.0); TOTAL CELLS COUNTED 100
[2017-02-21] MEDS: PANTOPRAZOLE 40 MG TABLET (FP) PO SCH ×2 (10:35→21:46)
[2017-02-21] MEDS: AMOX TR/POT CLAV 875MG/125MG TABLETS (FP) PO SCH ×2 (10:35→17:34)
[2017-02-21] MEDS: LORazepam 0.5 MG TABLET PO PRN (10:35)
[2017-02-21] MEDS ORDERED: chlordiazePOXIDE HCL 25 MG CAPSULE PO PRN (13:08)
[2017-02-21] MEDS ORDERED: PT OWN MED DRAWER 7, Y5N ONE (17:31)
[2017-02-21] MEDS: chlordiazePOXIDE HCL 25 MG CAPSULE PO SCH ×2 (17:34→23:11)
--- NOTE | 2017-02-21 18:40 | PN ---
Progress Note, Physician History of Present Illness: doing well - Current Medication List Current Medications: Active Medications Amoxicillin/Clavulanate Potassium (Augmentin - 875mg Tablet) 1 tab PO BID@0800, 1730 [facility] Stop: 02/23/17 20:00 Last Admin: 02/21/17 17:34 Dose: 1 tab Chlordiazepoxide HCl (Librium -) 25 mg PO Q4H PRN PRN Reason: WITHDRAWAL(CONT SUBST) Stop: 02/24/17 13:07 Chlordiazepoxide HCl (Librium -) 25 mg PO [id number] [facility] Stop: 02/22/17 11:01 Last Admin: 02/21/17 17:34 Dose: 25 mg Chlordiazepoxide HCl (Librium -) 20 mg PO [id number] [facility] Stop: 02/23/17 11:01 Chlordiazepoxide HCl (Librium -) 10 mg PO [id number] [facility] Stop: 02/24/17 11:01 Sodium Chloride (Normal Saline -) 1,000 mls @ 75 mls/hr IV ASDIR [facility] Last Admin: 02/20/17 21:48 Dose: Not Given Ondansetron HCl (Zofran Injection) 4 mg IVPB Q6H PRN PRN Reason: NAUSEA Pantoprazole Sodium (Protonix -) 40 mg PO BID [facility] Last Admin: 02/21/17 10:35 Dose: 40 mg - Objective Vital Signs: Vital Signs Temperature 97.8 F 02/21/17 14:00 Pulse Rate 93 H 02/21/17 14:00 Respiratory Rate 16 02/21/17 14:00 Blood Pressure 128/73 02/21/17 14:00 O2 Sat by Pulse Oximetry (%) 97 02/21/17 09:00 Constitutional: Yes: No Distress HENT: Yes: Atraumatic Neck: Yes: Supple Cardiovascular: Yes: Regular Rate and Rhythm Respiratory: Yes: CTA Bilaterally Gastrointestinal: Yes: Normal Bowel Sounds Extremities: Yes: WNL Neurological: Yes: Alert, Oriented Labs: CBC, BMP 02/21/17 06:00 02/21/17 06:00 INR, PTT INR 1.20 (0.82-1.09) H 02/14/17 17:20 Problem List - Problems (1) Alcohol abuse Assessment/Plan: detox consult on board on librium protocol now Code(s): F10.10 - ALCOHOL ABUSE, UNCOMPLICATED (2) GIB (gastrointestinal bleeding) Assessment/Plan: s/p blood transfusion cbc stable on soft diet Code(s): K92.2 - GASTROINTESTINAL HEMORRHAGE, UNSPECIFIED Qualifiers: GI bleed type/associated pathology: gastritis Gastritis type: alcoholic Qualified Code(s): K29.21 - Alcoholic gastritis with bleeding (3) Jessica-Gimenez tear Assessment/Plan: off of iv octreotide on po protonix Code(s): K22.6 - GASTRO-ESOPHAGEAL LACERATION-HEMORRHAGE SYNDROME (4) Thrombocytopenia Assessment/Plan: probably due to etoh abuse Code(s): D69.6 - THROMBOCYTOPENIA, UNSPECIFIED (5) Elevated LFTs Code(s): R79.89 - OTHER SPECIFIED ABNORMAL FINDINGS OF BLOOD CHEMISTRY (6) Pancytopenia Assessment/Plan: probably due to etohabuse Code(s): D61.818 - OTHER PANCYTOPENIA Assessment/Plan ASSESSMENT 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
[2017-02-22] MEDS: chlordiazePOXIDE HCL 25 MG CAPSULE PO SCH ×2 (05:26→10:47)
[2017-02-22] MEDS: AMOX TR/POT CLAV 875MG/125MG TABLETS (FP) PO SCH ×2 (08:44→18:21)
[2017-02-22] MEDS: PANTOPRAZOLE 40 MG TABLET (FP) PO SCH ×2 (10:47→21:16)
[2017-02-22] MEDS ORDERED: chlordiazePOXIDE HCL 25 MG CAPSULE PO SCH (17:00)
[2017-02-22] MEDS: chlordiazePOXIDE 5 MG CAPSULE PO SCH ×2 (18:21→23:08)
[2017-02-23] MEDS: chlordiazePOXIDE 5 MG CAPSULE PO SCH ×4 (05:21→22:54)
[2017-02-23] MEDS: AMOX TR/POT CLAV 875MG/125MG TABLETS (FP) PO SCH ×2 (10:46→17:40)
[2017-02-23] MEDS: PANTOPRAZOLE 40 MG TABLET (FP) PO SCH ×2 (10:46→21:14)
--- NOTE | 2017-02-23 17:05 | PN ---
Progress Note, Physician History of Present Illness: doing well - Current Medication List Current Medications: Active Medications Amoxicillin/Clavulanate Potassium (Augmentin - 875mg Tablet) 1 tab PO BID@0800, 1730 [facility] Stop: 02/23/17 20:00 Last Admin: 02/23/17 10:46 Dose: 1 tab Chlordiazepoxide HCl (Librium -) 25 mg PO Q4H PRN PRN Reason: WITHDRAWAL(CONT SUBST) Stop: 02/24/17 13:07 Chlordiazepoxide HCl (Librium -) 10 mg PO E1T-COV [facility] Stop: 02/24/17 11:01 Ondansetron HCl (Zofran Injection) 4 mg IVPB Q6H PRN PRN Reason: NAUSEA Pantoprazole Sodium (Protonix -) 40 mg PO BID [facility] Last Admin: 02/23/17 10:46 Dose: 40 mg - Objective Vital Signs: Vital Signs Temperature 98.2 F 02/23/17 14:56 Pulse Rate 80 02/23/17 14:56 Respiratory Rate 16 02/23/17 14:56 Blood Pressure 116/74 02/23/17 14:56 O2 Sat by Pulse Oximetry (%) 97 02/23/17 09:00 Constitutional: Yes: No Distress HENT: Yes: Atraumatic Neck: Yes: Supple Cardiovascular: Yes: Regular Rate and Rhythm Respiratory: Yes: CTA Bilaterally Gastrointestinal: Yes: Normal Bowel Sounds Extremities: Yes: WNL Neurological: Yes: Alert, Oriented Labs: CBC, BMP 02/21/17 06:00 02/21/17 06:00 INR, PTT INR 1.20 (0.82-1.09) H 02/14/17 17:20 Problem List - Problems (1) Alcohol abuse Assessment/Plan: detox consult on board on librium protocol now Code(s): F10.10 - ALCOHOL ABUSE, UNCOMPLICATED (2) GIB (gastrointestinal bleeding) Assessment/Plan: s/p blood transfusion cbc stable on soft diet Code(s): K92.2 - GASTROINTESTINAL HEMORRHAGE, UNSPECIFIED Qualifiers: GI bleed type/associated pathology: gastritis Gastritis type: alcoholic Qualified Code(s): K29.21 - Alcoholic gastritis with bleeding (3) Jessica-Gimenez tear Assessment/Plan: stable on po protonix Code(s): K22.6 - GASTRO-ESOPHAGEAL LACERATION-HEMORRHAGE SYNDROME (4) Thrombocytopenia Assessment/Plan: now wnl Code(s): D69.6 - THROMBOCYTOPENIA, UNSPECIFIED (5) Elevated LFTs Code(s): R79.89 - OTHER SPECIFIED ABNORMAL FINDINGS OF BLOOD CHEMISTRY (6) Pancytopenia Code(s): D61.818 - OTHER PANCYTOPENIA
[2017-02-24] MEDS: chlordiazePOXIDE 5 MG CAPSULE PO SCH ×2 (05:17→11:02)
[2017-02-24 07:56] LABS: MCHC 32.1 g/dl (32.0-35.9); MEAN PLT VOLUME 8.9 fl (7.5-11.1); PLATELET COUNT 284 K/MM3 (134-434); RDW 17.4 % (11.9-15.9); WHITE BLOOD COUNT 4.2 K/mm3 (4.0-10.0)
[2017-02-24 10:16] LABS: PLATELET ESTIMATE ADEQUATE (NORMAL); TOTAL CELLS COUNTED 100
[2017-02-24 10:17] LABS: BASOPHIL (MANUAL) 6 % (0-2.0); MYELOCYTE 1 % (0-2)
[2017-02-24] MEDS: PANTOPRAZOLE 40 MG TABLET (FP) PO SCH (11:01)
[2017-02-24 11:22] VITALS: BP 110/60; PULSE 72; TEMP 98
--- NOTE | 2017-02-24 17:16 | DS ---
Physical Examination Vital Signs: Vital Signs Temperature 98.0 F 02/24/17 10:00 Pulse Rate 72 02/24/17 10:00 Respiratory Rate 18 02/24/17 10:00 Blood Pressure 110/60 02/24/17 10:00 O2 Sat by Pulse Oximetry (%) 98 02/23/17 21:00 Constitutional: Yes: No Distress HENT: Yes: Atraumatic Neck: Yes: Supple Cardiovascular: Yes: Regular Rate and Rhythm Respiratory: Yes: CTA Bilaterally Gastrointestinal: Yes: Normal Bowel Sounds Extremities: Yes: WNL Labs: CBC, BMP 02/24/17 06:30 02/21/17 06:00 Discharge Summary Reason For Visit: ALCOHOL ABUSE; GI HEMORRHAGE; GI BLEEDING Current Active Problems Alcohol dependence with uncomplicated withdrawal (Acute) Chest pain (Acute) Electrolyte abnormality (Acute) Elevated LFTs (Chronic) Pancytopenia (Chronic) - Instructions Diet, Activity, Other Instructions: Follow-up in clinic at [facility] Referrals: Jevon Bautista MD [Staff Physician] - Disposition: HOME - Home Medications Comprehensive Discharge Medication List: Ambulatory Orders Aspirin [ASA -] 81 mg PO DAILY tab.chew 01/04/17 Pantoprazole Sodium [Protonix -] 20 mg PO DAILY #30 tablet 01/04/17 Amox-Tr/K Cl [Augmentin 875-125mg Tablet -] 1 tab PO BID@0800,1730 #10 tablet Pantoprazole Sodium [Protonix -] 40 mg PO BID #60 tab 02/18/17 co home fu [address] [place] [id number] bautista 1-2 weeks
== END 2017-02-24 12:59 | disposition home or self-care (01) | DRG 243 ==
LOC: JER 16:26 → JERBED 19:17 → JICU 21:16 → J8W 02-18 17:35
PROVIDERS: ADMIT Internal Medicine; ATTEND Internal Medicine
PROC: 5A1945Z Respiratory Ventilation, 24-96 Consecutive Hours (ICD-10-PCS; principal; 2017-02-14)
PROC: 0BH17EZ Insertion of Endotracheal Airway into Trachea, Via Natural or Artificial Opening (ICD-10-PCS; 2017-02-14)
PROC: 30233H1 Transfusion of Nonautologous Whole Blood into Peripheral Vein, Percutaneous Approach (ICD-10-PCS; 2017-02-14)
PROC: 30233R1 Transfusion of Nonautologous Platelets into Peripheral Vein, Percutaneous Approach (ICD-10-PCS; 2017-02-14)
PROC: 30233K1 Transfusion of Nonautologous Frozen Plasma into Peripheral Vein, Percutaneous Approach (ICD-10-PCS; 2017-02-14)
PROC: 0W3P8ZZ Control Bleeding in Gastrointestinal Tract, Via Natural or Artificial Opening Endoscopic (ICD-10-PCS; 2017-02-15)
PROC: HZ2ZZZZ Detoxification Services for Substance Abuse Treatment (ICD-10-PCS; 2017-02-15)
PROC: HZ89ZZZ Medication Management for Substance Abuse Treatment, Other Replacement Medication (ICD-10-PCS; 2017-02-15)
DX: K22.8 Other specified diseases of esophagus (principal); K92.2 Gastrointestinal hemorrhage, unspecified; D64.9 Anemia, unspecified; F10.229 Alcohol dependence with intoxication, unspecified; Y90.8 Blood alcohol level of 240 mg/100 ml or more; J69.0 Pneumonitis due to inhalation of food and vomit; T17.210A Gastric contents in pharynx causing asphyxiation, initial encounter; D69.6 Thrombocytopenia, unspecified; Z78.1 Physical restraint status; D61.818 Other pancytopenia; F10.230 Alcohol dependence with withdrawal, uncomplicated; D62 Acute posthemorrhagic anemia; J96.00 Acute respiratory failure, unspecified whether with hypoxia or hypercapnia; E83.42 Hypomagnesemia; E87.6 Hypokalemia; R74.8 Abnormal levels of other serum enzymes
CPT/HCPCS: 36415; 36430; 36600; 71010-TC; 80048; 80053; 80307; 81003; 81015; 82272; 82310; 82803; 83735; 84100; 85025; 85027; 85610; 86850; 86900; 86901; 86922; 87040; 87086; 93005; 93010; 94002; 99284-25; P9017; P9034; P9038; P9058

== ENCOUNTER 2017-05-26 10:49 | Inpatient (IN) | payer OTHER ==
[2017-05-26 10:58] VITALS: BMI 26.6
[2017-05-26] MEDS ORDERED: SODIUM CHLORIDE 0.9% 1000 ML INFUS.BAG IV ONE (11:32)
[2017-05-26] MEDS ORDERED: OCTREOTIDE ACETATE 50 MCG/1 ML - 1 ML VIAL IVPUSH ONE (11:32)
[2017-05-26] MEDS ORDERED: PANTOPRAZOLE SODIUM 40 MG VIAL IVPUSH ONE (11:32)
[2017-05-26] MEDS ORDERED: PANTOPRAZOLE SODIUM 40 MG VIAL ONE (11:44)
[2017-05-26] MEDS ORDERED: PANTOPRAZOLE SODIUM 40 MG/100 ML BAG IVPB ONE (11:44)
[2017-05-26] MEDS ORDERED: PANTOPRAZOLE SODIUM 80 MG in SODIUM CHLORIDE 100 ML IVPB SCH (11:45)
[2017-05-26] MEDS ORDERED: OCTREOTIDE ACETATE 1,200 MCG in DEXTROSE 5%-WATER - 488 ML IVPB SCH (11:45)
[2017-05-26] MEDS ORDERED: OCTREOTIDE ACETATE 100 MCG/1 ML ONE (11:46)
--- NOTE | 2017-05-26 11:50 | PDOC ---
Attending Attestation - Resident Resident Name: GilbertoLyndsey - ED Attending Attestation I have performed the following: I have examined & evaluated the patient, The case was reviewed & discussed with the resident, I agree w/resident's findings & plan, Exceptions are as noted - Medical Decision Making 05/26/17 11:48 A portion of this note was written by my scribe, the my supervision. 52-year-old male with history of hypertension, alcohol abuse, history of varices and a DelaFoy lesions presents with hematemesis. The patient reports 3 days of epigastric pain with nausea and vomiting. Had one episode today of profuse bright red blood vomiting. Denies hematachezia or melanotic stools. As of note, the patient was admitted several months ago for similar incidents and was worked up and found to have a Delafoy lesion. The patient is tachycardic and borderline hypotensive concerning for his massive upper GI bleed. Patient is placed on the monitor and 2 large-bore IVs were placed. 2 units of PRBCs are on hold. Patient will be initiated on Protonix and octreotide drip for presumed upper GI bleed and variceal bleed. Within differential is Delafoy lesion. We'll consult GI urgently and admit the patient to the hospital, likely to the ICU <Phillip Westfall - Last Filed: 05/26/17 11:50> - HPI HPI: 05/26/17 12:04 Pt is a 52 yo M with a PMHx of HTN, EtOH abuse, varices who presents to the ED with hematemesis today. Patient reports 3 days of epigastric pain, nausea and vomiting. Today. patients family at bedside reports bright red blood in vomit ( half a gallon) and worsening nausea. Patient also notes drinking a bottle of bacardi 1 hour prior to arrival. Patient endorses headache and palpitations however denies SOB, dizziness, or chest pain. - Physicial Exam PE: 05/26/17 12:04 GENERAL: Awake, alert, and fully oriented, in no acute distress. +Ill appearing. HEAD: No signs of trauma EYES: PERRLA, EOMI, sclera anicteric, conjunctiva clear ENT: Auricles normal inspection, hearing grossly normal, nares patent, oropharynx clear without exudates. Moist mucosa NECK: Normal ROM, supple, no lymphadenopathy, JVD, or masses LUNGS: Breath sounds equal, clear to auscultation bilaterally. No wheezes, and no crackles HEART: +Tachycardic. Regular rhythm, normal S1 and S2, no murmurs, rubs or gallops ABDOMEN: +Epigastric tenderness with guarding. Soft, nontender, normoactive bowel sounds. No no rebound. No masses EXTREMITIES: Normal range of motion, no edema. No clubbing or cyanosis. No cords, erythema, or tenderness NEUROLOGICAL: Cranial nerves II through XII grossly intact. Normal speech, normal gait SKIN: Warm, Dry, normal turgor, no rashes or lesions noted. - Medical Decision Making Documentation prepared by Elizabeth Dean, acting as emergency medical service coordinator for Phillip Westfall MD, MD/DO. 05/26/17 11:31-- Dr. Rinaldi paged. Awaiting call back. 05/26/17 12:28 Dr. Garcia paged via office number. Awaiting call back. <Elizabeth Dean - Last Filed: 05/26/17 13:54> Heart Score/ECG Review #1 ECG reviewed & interpreted by me at: 11:10 05/26/17 11:51 NSR 130, no std/aruna, normal axis, normal intervals, QTC 462 msec <Phillip Westfall - Last Filed: 05/26/17 11:50>
[2017-05-26] MEDS ORDERED: METOCLOPRAMIDE HCL INJECTION 10 MG/2 ML VIAL IVPUSH ONE (11:52)
[2017-05-26] MEDS ORDERED: METOCLOPRAMIDE HCL INJECTION 10 MG/2 ML VIAL ONE (11:57)
--- NOTE | 2017-05-26 12:03 | PDOC ---
History of Present Illness - General Chief Complaint: Alcohol intoxication Stated Complaint: VOMITING BLOOD Time Seen by Provider: 05/26/17 11:04 History Source: Patient, Family Exam Limitations: No Limitations - History of Present Illness Initial Comments: This is a 52 YOM with h/o heavy alcohol use (last drank a bottle of Bacardi about an hour [facility] to the ED), Dieulafoy AVM esophageal lesion, variceal bleed, and HTN who p/w vomiting x3 days (states at least once every 30 minutes) now with onset of gross bloody vomiting x3 episodes also with coffee ground emesis this morning. He has had similar bloody vomiting in the past, with the last episode this January, and was admitted to the ICU. Today he believes he has lost about a half gallon of blood this morning. He notes mild headache, rapid/ pounding palpitations, and recent chills, but he denies any chest pain, SOB, paleness, dizziness, or other symptoms. Past History - Past Medical History Allergies/Adverse Reactions: Allergies Allergy/AdvReac Type Severity Reaction Status Date / Time No Known Allergies Allergy Verified 05/26/17 10:58 Asthma: No Cardiac Disorders: No COPD: No Diabetes: No GI Disorders: Yes (gastritis, gastrointestinal bleeding) Disorders: No HTN: No Kidney Stones: No Seizures: No - Surgical History Abdominal Surgery: No Appendectomy: No Cardiac Surgery: No Cholecystectomy: No Lung Surgery: No Neurologic Surgery: No Orthopedic Surgery: No - Reproductive History Testicular Surgery: No - Immunization History Immunization Up to Date: No - Suicide/Smoking/Psychosocial Hx Smoking History: Never smoked Have you smoked in the past 12 months: No Number of Cigarettes Smoked Daily: 20 'Breaking Loose' booklet given: 10/06/15 Hx Alcohol Use: Yes Drug/Substance Use Hx: No Substance Use Type: Alcohol Hx Substance Use Treatment: Yes Review of Systems - Review of Systems Able to Perform ROS?: Yes Constitutional: Yes: Chills. No: Fever, Unexplained wgt Loss HEENTM: Yes: Throat Pain. No: Nose Congestion Respiratory: No: Cough, Shortness of Breath Cardiac (ROS): Yes: Palpitations. No: Chest Pain ABD/GI: Yes: Nausea, Vomiting, Other (bloody emesis, coffee ground emesis). No : Constipated, Diarrhea : No: Burning, Dysuria Musculoskeletal: No: Back Pain, Neck Pain Integumentary: No: Bruising, Rash Neurological: No: Headache, Numbness, Tingling, Weakness, Dizziness Endocrine: No: Unexplained Weight Gain, Unexplained Weight Loss *Physical Exam - Vital Signs Last Vital Signs Temp Pulse Resp BP Pulse Ox 161 H 22 97/66 99 05/26/17 10:55 05/26/17 10:55 05/26/17 10:55 05/26/17 10:55 - Physical Exam General Appearance: Yes: Nourished, Appropriately Dressed, Mild Distress, Alcohol on Breath, Other (alert and oriented, answering questions appropriately , accompanied by brother who helps provide medical history) HEENT: positive: EOMI, Normal Voice, Hearing Grossly Normal. negative: Scleral Icterus (R), Scleral Icterus (L), Nasal Congestion Neck: positive: Trachea midline, Supple. negative: Tender, Rigid Respiratory/Chest: positive: Lungs Clear, Normal Breath Sounds. negative: Respiratory Distress, Crackles, Rhonchi, Stridor, Wheezing Cardiovascular: positive: Regular Rhythm, Regular Rate. negative: Murmur Gastrointestinal/Abdominal: positive: Normal Bowel Sounds, Soft. negative: Tender, Organomegaly, Pulsatile Mass, Guarding Musculoskeletal: positive: Normal Inspection. negative: Decreased Range of Motion, Vertebral Tenderness Extremity: positive: Normal Capillary Refill, Normal Inspection, Normal Range of Motion. negative: Tender, Cyanosis Integumentary: positive: Normal Color, Dry, Warm. 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 On exam he appears ill but not particularly pale, HR 125 and BP mid-120s systolic. Appears nauseated but not vomiting on initial exam. DDX IBNLT variceal bleed, AVM bleed, PUD with perforation, Jessica-Gimenez tear, Boerhaave syndrome, etc. Regardless of cause the patient is having UGIB and thus ordered is octreotide push&drip, protonix push&drip, Reglan, 500cc IVF. Also ordered is CBCD, CMP, Mg, Phos, cardiac panel, PT/INR, T&Sx2, lactate, pRBC x2 to HOLD, EKG, CXR. Patient notes taking Tylenol for chronic neck pain with last dose a week ago but will order U-tox, EtOH, ASA, Tylenol levels. 05/26/17 13:45 Patient's labs result with only mild anemia to 11.2 Hgb, lactate to 4.4, K 3.0, AG 20, EtOH 324, otherwise labs unremarkable. Spoke with Starla Contreras who admits to Dr. Gross, ICU (spoke already with Dr. Davalos). Per Dr. Davalos there are no more ICU beds so the patient is expected to stay here in the ED until one opens. Patient continues to vomit, occasionally with bright blood, more frequently with dark brown blood. No complaints other than dry mouth. *DC/Admit/Observation/Transfer Diagnosis at time of Disposition: Alcohol abuse, Tachycardia GIB (gastrointestinal bleeding) Qualifiers: GI bleed type/associated pathology: unspecified gastrointestinal hemorrhage type Qualified Code(s): K92.2 - Gastrointestinal hemorrhage, unspecified Anemia Qualifiers: Anemia type: other cause Other causes of anemia: other cause, not classified Qualified Code(s): D64.89 - Other specified anemias - Discharge Dispostion Condition at time of disposition: Guarded Admit: Yes - Referrals - Patient Instructions - Post Discharge Activity
[2017-05-26 12:08] LABS: BASO % 1.2 % (0-2.0); EOS % 0.2 % (0-4.5); HEMATOCRIT 37.9 % (35.4-49); HEMOGLOBIN 11.2 GM/dL (11.7-16.9); LYMPH % 33.2 % (8-40); MCHC 29.4 g/dl (32.0-35.9); MEAN CELL VOLUME 63.5 fl (80-96); MEAN PLT VOLUME 8.7 fl (7.5-11.1); MONO % 5.8 % (3.8-10.2); NEUT % 59.6 % (42.8-82.8); RBC 5.97 M/mm3 (4.00-5.60); RDW 21.9 % (11.9-15.9); WHITE BLOOD COUNT 8.2 K/mm3 (4.0-10.0)
[2017-05-26 12:20] LABS: MCH 18.7 pg (25.7-33.7)
[2017-05-26 12:21] LABS: ADD RBC MORPHOLOGY YES
[2017-05-26 12:36] LABS: ALBUMIN 4.7 g/dl (3.4-5.0); ANION GAP 20 (8-16); BILIRUBIN,TOTAL 0.9 mg/dL (0.2-1.0); BLOOD UREA NITROGEN 20 mg/dL (7-18); CALCIUM 8.8 mg/dL (8.5-10.1); CHLORIDE 92 mmol/L (98-107); CO2 27 mmol/L (21-32); CREATININE 0.8 mg/dL (0.7-1.3); GLUCOSE,RANDOM 124 mg/dL (74-106); MAGNESIUM 1.9 mg/dL (1.8-2.4); SGOT/AST 53 U/L (15-37); SGPT/ALT 39 U/L (12-78); SODIUM 139 mmol/L (136-145)
[2017-05-26 12:39] LABS: ALK PHOS 76 U/L (45-117)
[2017-05-26 12:48] LABS: ACETAMINOPHEN < 10 ug/ml (10.0-30.0); SALICYLATE < 4.0 mg/dl (0.0-30.0)
[2017-05-26 12:50] LABS: INR 1.1 (0.82-1.09); PROTHROMBIN TIME (PATIENT) 12.4 SEC (9.98-11.88)
[2017-05-26 12:53] LABS: ACTIVATED PTT 30.3 SECONDS (26.9-34.4)
[2017-05-26] MEDS ORDERED: FOLIC ACID INJECTION - 1 MG, THIAMINE HCL 100 MG, MULTIVIT INJECTION ADULT 10 ML in SOD... IVPB ONE (13:43)
[2017-05-26] MEDS ORDERED: POTASSIUM CHLORIDE TABS 20 MEQ TABLET.ER (FP) PO ONE (13:44)
[2017-05-26] MEDS: POTASSIUM CHLORIDE ORAL LIQUID 20 MEQ/15 ML PO SCH ×2 (13:59→23:29)
[2017-05-26] MEDS: KCL 10 MEQ IVPB 10 MEQ/100 ML INFUS.BAG IVPB SCH ×3 (13:59→16:09)
[2017-05-26] MEDS ORDERED: SODIUM CHLORIDE 1,000 ML IV SCH (14:00)
[2017-05-26 14:36] LABS: ANISOCYTOSIS 2+; TARGET CELLS 1+
[2017-05-26 14:39] LABS: PLATELET COUNT 117 K/MM3 (134-434)
--- NOTE | 2017-05-26 14:49 | HP ---
CHIEF COMPLAINT: Vomiting blood x 3 days HISTORY OF PRESENT ILLNESS: 52 year-old male with a PMH significant for HTN, heavy alcohol use (last drank a bottle of Bacardi about an hour prior to arrival), Dieulafoy AVM esophageal lesion, and variceal bleed. Presented to the ED intoxicated and stating he has been vomiting for 3 days and with gross bloody vomiting x 3 episodes today, also with coffee ground emesis earlier today. Recent admission 02/14-02/24 for a large bleeding vessel in distal esophagus, requiring intubation and ICU level care. He notes mild headache, rapid/pounding palpitations, and recent chills, but he denies any chest pain, SOB, paleness, dizziness, or other symptoms. ER course was notable for: (1) K 3.0 (2) Lactic acid 4.4 (3) Serum alcohol 329 (4) Hgb 11.2-->9.8 Recent Travel: No PAST MEDICAL HISTORY: Hypertension ETOH abuse Dieulafoy AVM Variceal bleeding PAST SURGICAL HISTORY: Distal esophagus AVM clipping 02/15/17 Social History: Smoking: denies Alcohol: yes Drugs: denies Family History: non-contributory Allergies No Known Allergies Allergy (Verified 05/26/17 10:58) HOME MEDICATIONS: None REVIEW OF SYSTEMS CONSTITUTIONAL: Absent: fever, chills, diaphoresis, generalized weakness, malaise, loss of appetite, weight change HEENT: Absent: rhinorrhea, nasal congestion, throat pain, throat swelling, difficulty swallowing, mouth swelling, ear pain, eye pain, visual changes CARDIOVASCULAR: Present: palpitations Absent: chest pain, syncope, irregular heart rate, lightheadedness, peripheral edema RESPIRATORY: Absent: cough, shortness of breath, dyspnea with exertion, orthopnea, wheezing, stridor, hemoptysis GASTROINTESTINAL: Present: epigastric pain; vomiting x 3 days; bloody vomiting x 3 episodes; coffee-ground emesis today Absent: abdominal pain, abdominal distension, nausea, vomiting, diarrhea, constipation, melena, hematochezia GENITOURINARY: Absent: dysuria, frequency, urgency, hesitancy, hematuria, flank pain, genital pain MUSCULOSKELETAL: Absent: myalgia, arthralgia, joint swelling, back pain, neck pain SKIN: Absent: rash, itching, pallor HEMATOLOGIC/IMMUNOLOGIC: Absent: easy bleeding, easy bruising, lymphadenopathy, frequent infections ENDOCRINE: Absent: unexplained weight gain, unexplained weight loss, heat intolerance, cold intolerance NEUROLOGIC: Present: headache Absent: focal weakness or paresthesias, dizziness, unsteady gait, seizure, mental status changes, bladder or bowel incontinence PSYCHIATRIC: Absent: anxiety, depression, suicidal or homicidal ideation, hallucinations. PHYSICAL EXAMINATION Vital Signs - 24 hr 05/26/17 05/26/17 05/26/17 10:55 12:03 13:24 Pulse Rate 161 H Pulse Rate [ 110 H 120 H Left Radial] Respiratory 22 20 22 Rate Blood Pressure 97/66 Blood Pressure 130/86 128/83 [Right Arm] O2 Sat by Pulse 99 98 Oximetry (%) 05/26/17 05/26/17 14:09 14:39 Pulse Rate Pulse Rate [ 108 H 132 H Left Radial] Respiratory 20 Rate Blood Pressure Blood Pressure 127/85 111/78 [Right Arm] O2 Sat by Pulse 97 Oximetry (%) GENERAL: Awake, alert, and fully oriented, in moderate distress due to epigastric pain HEAD: Normal with no signs of trauma. EYES: Pupils equal, round and reactive to light, extraocular movements intact, sclera anicteric injected appearance, conjunctiva clear. No lid lag. EARS, NOSE, THROAT: Ears normal, nares patent, oropharynx clear without exudates. Dry mucous membranes. NECK: Normal range of motion, supple without lymphadenopathy, JVD, or masses. LUNGS: Breath sounds equal, clear to auscultation bilaterally. No wheezes, and no crackles. No accessory muscle use. HEART: Regular rate and rhythm, normal S1 and S2 without murmur, rub or gallop. ABDOMEN: Soft, +tenderness over epigastrum. MUSCULOSKELETAL: Normal range of motion at all joints. No bony deformities or tenderness. No CVA tenderness. UPPER EXTREMITIES: 2+ pulses, warm, well-perfused. No cyanosis. No clubbing. No peripheral edema. LOWER EXTREMITIES: 2+ pulses, warm, well-perfused. No calf tenderness. No peripheral edema. NEUROLOGICAL: Cranial nerves II-XII intact. Normal speech. Laboratory Results - last 24 hr 05/26/17 05/26/17 05/26/17 11:32 11:55 11:55 WBC 8.2 D RBC 5.97 H D Hgb 11.2 L D Hct 37.9 D MCV 63.5 L MCH 18.7 L MCHC 29.4 L RDW 21.9 H D Plt Count 117 L D MPV 8.7 Neutrophils % 59.6 Lymphocytes % 33.2 D Monocytes % 5.8 Eosinophils % 0.2 D Basophils % 1.2 Hypochromia 2+ Anisocytosis 2+ Microcytosis 2+ Target Cells 1+ Fragmented RBCs 1+ PT with INR INR PTT (Actin FS) Sodium 139 Potassium 3.0 L Chloride 92 L D Carbon Dioxide 27 Anion Gap 20 H BUN 20 H D Creatinine 0.8 D Creat Clearance w eGFR > 60 Random Glucose 124 H D Lactic Acid Calcium 8.8 Phosphorus 4.0 D Magnesium 1.9 Total Bilirubin 0.9 D AST 53 H D ALT 39 D Alkaline Phosphatase 76 D Creatine Kinase 293 Creatine Kinase Index 0.3 CK-MB (CK-2) < 1.000 Troponin I < 0.02 Total Protein 9.0 H D Albumin 4.7 D Stool Occult Blood Negative Salicylates Acetaminophen Alcohol, Quantitative Blood Type Antibody Screen Crossmatch 05/26/17 05/26/17 05/26/17 11:55 11:55 11:55 WBC RBC Hgb Hct MCV MCH MCHC RDW Plt Count MPV Neutrophils % Lymphocytes % Monocytes % Eosinophils % Basophils % Hypochromia Anisocytosis Microcytosis Target Cells Fragmented RBCs PT with INR 12.40 H INR 1.10 PTT (Actin FS) 30.3 Sodium Potassium Chloride Carbon Dioxide Anion Gap BUN Creatinine Creat Clearance w eGFR Random Glucose Lactic Acid Calcium Phosphorus Magnesium Total Bilirubin AST ALT Alkaline Phosphatase Creatine Kinase Creatine Kinase Index CK-MB (CK-2) Troponin I Total Protein Albumin Stool Occult Blood Salicylates < 4.0 Acetaminophen < 10 L Alcohol, Quantitative 329.0 H* Blood Type A POSITIVE Antibody Screen Negative Crossmatch See Detail 05/26/17 11:55 WBC RBC Hgb Hct MCV MCH MCHC RDW Plt Count MPV Neutrophils % Lymphocytes % Monocytes % Eosinophils % Basophils % Hypochromia Anisocytosis Microcytosis Target Cells Fragmented RBCs PT with INR INR PTT (Actin FS) Sodium Potassium Chloride Carbon Dioxide Anion Gap BUN Creatinine Creat Clearance w eGFR Random Glucose Lactic Acid 4.4 H* Calcium Phosphorus Magnesium Total Bilirubin AST ALT Alkaline Phosphatase Creatine Kinase Creatine Kinase Index CK-MB (CK-2) Troponin I Total Protein Albumin Stool Occult Blood Salicylates Acetaminophen Alcohol, Quantitative Blood Type Antibody Screen Crossmatch ASSESSMENT/PLAN: 52 year-old male with a PMH significant for HTN, heavy alcohol use, Dieulafoy AVM esophageal lesion, and variceal bleed. Admitted for hematemesis and severe epigastric pain. Alcohol abuse Elevated lipase --serum alcohol 329 --start librium protocol; ativan PRN for seizure activity --IV fluids --banana bag x 1 --continue thiamine, folic acid Dieulafoy AVM esophageal lesion h/o variceal bleed --H/H dropped 11.2-->9.8 in three hours, possibly dilutional but concerning for bleed --NGT with serosanguinous output --stat GI consult for Dr. Hester; he will scope patient this afternoon --protonix drip --octreotide drip NPO Visit type - Emergency Visit Emergency Visit: Yes ED Registration Date: 05/26/17 Care time: The patient presented to the Emergency Department on the above date and was hospitalized for further evaluation of their emergent condition. - New Patient This patient is new to me today: Yes Date on this admission: 05/26/17 - Critical Care Critical Care patient: No
--- NOTE | 2017-05-26 14:50 | EKG ---
Test Reason : Blood Pressure : / mmHG Vent. Rate : 130 BPM Atrial Rate : 130 BPM P-R Int : 138 ms QRS Dur : 086 ms QT Int : 314 ms P-R-T Axes : 055 031 036 degrees QTc Int : 462 ms SINUS TACHYCARDIA OTHERWISE NORMAL ECG WHEN COMPARED WITH ECG OF 14-FEB-2017 17:29, T WAVE AMPLITUDE HAS INCREASED IN LATERAL LEADS Confirmed by ROBERTO HECK MD ([id number]) on 05/26/2017 2:50:19 PM Referred By: Confirmed By:ROBERTO HECK MD
[2017-05-26 15:35] LABS: EOS % 0.1 % (0-4.5); HEMATOCRIT 32.4 % (35.4-49); HEMOGLOBIN 9.8 GM/dL (11.7-16.9); LYMPH % 26.6 % (8-40); MCHC 30.2 g/dl (32.0-35.9); MEAN PLT VOLUME 8.9 fl (7.5-11.1); MONO % 7.3 % (3.8-10.2); RBC 5.07 M/mm3 (4.00-5.60); RDW 22.3 % (11.9-15.9); WHITE BLOOD COUNT 4.7 K/mm3 (4.0-10.0)
[2017-05-26 15:45] LABS: MCH 19.3 pg (25.7-33.7)
[2017-05-26 16:01] LABS: PLATELET COUNT 72 K/MM3 (134-434)
[2017-05-26 16:07] LABS: ALBUMIN 3.8 g/dl (3.4-5.0); ALK PHOS 64 U/L (45-117); ANION GAP 12 (8-16); BILIRUBIN,DIRECT 0.3 mg/dL (0.0-0.2); BLOOD UREA NITROGEN 20 mg/dL (7-18); CALCIUM 7.8 mg/dL (8.5-10.1); CHLORIDE 99 mmol/L (98-107); CO2 26 mmol/L (21-32); CREATININE 0.6 mg/dL (0.7-1.3); GLUCOSE,RANDOM 116 mg/dL (74-106); POTASSIUM 4.3 mmol/L (3.5-5.1); SGOT/AST 48 U/L (15-37); SGPT/ALT 37 U/L (12-78); SODIUM 137 mmol/L (136-145); TOT PROT 7.6 g/dl (6.4-8.2)
[2017-05-26 16:16] LABS: URINE APPEARANCE SLCLOUDY; URINE BILIRUBIN NEGATIVE (NEGATIVE); URINE BLOOD 1+ (NEGATIVE); URINE COLOR DKYELLOW; URINE GLUCOSE (UA) NEGATIVE (NEGATIVE); URINE KETONE 2+ (NEGATIVE); URINE LEUK ESTERASE TRACE (NEGATIVE); URINE NITRITE NEGATIVE (NEGATIVE)
[2017-05-26 16:40] LABS: COCAINE, UR NEGATIVE ng/ml (CUTOFF=300); OPIATES, URI NEGATIVE ng/ml (CUTOFF=300); PHENCYCLIDINE,URINE NEGATIVE ng/ml (CUTOFF=25); URINE AMPHETAMINES NEGATIVE ng/ml (CUTOFF=500); URINE BARBITURATES NEGATIVE ng/ml (CUTOFF=200); URINE BENZODIAZEPINES NEGATIVE ng/ml (CUTOFF=200)
[2017-05-26 16:41] LABS: METHADONE, UR NEGATIVE ng/ml (CUTOFF=300)
[2017-05-26] MEDS ORDERED: fentaNYL CITRATE 250 MCG/5 ML VIAL ONE (18:54)
[2017-05-26] MEDS ORDERED: PROPOFOL 20 ML ONE ×2 (18:55)
--- NOTE | 2017-05-26 19:41 | CON.GI ---
Consult Consult Specialty:: GI - History of Present Illness History of Present Illness: chart reviewed. Events noted Per admission in ED: This is a 52 YOM with h/o heavy alcohol use (last drank a bottle of Bacardi about an hour [facility] to the ED), Dieulafoy AVM esophageal lesion , variceal bleed, and HTN who p/w vomiting x3 days (states at least once every 30 minutes) now with onset of gross bloody vomiting x3 episodes also with coffee ground emesis this morning. He has had similar bloody vomiting in the past, with the last episode this January, and was admitted to the ICU. Today he believes he has lost about a half gallon of blood this morning. He notes mild headache, rapid/pounding palpitations, and recent chills, but he denies any chest pain, SOB, paleness, dizziness, or other symptoms. At the time of this encounter: Odor of alcohol. NGT with serosanguinous-like fluid, small amounts. No BMs today, c/o severe epigastric pain. Non-radiating, w /o SOB, palpitation, dizzines, lightheadednes. Stool occult negative - History Source History Provided By: Patient, Medical Record Limitations to Obtaining History: Intoxication - Past Medical History Gastrointestinal: Yes: GI Bleed Infectious Disease: Yes: Other (h/o TB treated 2008 per [facility] notes) Psych: Yes: Addictions (alcohol abuse) - Alcohol/Substance Use Hx Alcohol Use: Yes - Smoking History Smoking history: Never smoked Have you smoked in the past 12 months: No Aproximately how many cigarettes per day: 20 Home Medications - Allergies Allergies/Adverse Reactions: Allergies Allergy/AdvReac Type Severity Reaction Status Date / Time No Known Allergies Allergy Verified 05/26/17 10:58 Family Disease History - Family Disease History Family History: Unremarkable (non-contrib) Review of Systems Findings/Remarks: as per H&P, HPI Physical Exam-GI Vital Signs: Vital Signs Temperature 98.5 F 05/26/17 15:01 Pulse Rate 110 H 05/26/17 17:17 Respiratory Rate 18 05/26/17 17:17 Blood Pressure 116/86 05/26/17 17:17 O2 Sat by Pulse Oximetry (%) 94 L 05/26/17 17:17 Constitutional: Yes: Anxious, Diaphoresis, Mild Distress Eyes: Yes: Conjunctiva Clear HENT: Yes: Other (forhead scars) Neck: Yes: Supple Cardiovascular: Yes: Tachycardia Respiratory: Yes: Regular Gastrointestinal Inspection: No: Distention ...Palpate: Yes: Tenderness, Epigastium. No: Firm/Rigid, Guarding Neurological: Yes: Alert, Oriented, Asterixis, Tremors Labs: CBC, BMP 05/26/17 15:30 05/26/17 15:30 INR, PTT INR 1.10 (0.82-1.09) 05/26/17 11:55 Abnormal Lab Results 05/26/17 05/26/17 05/26/17 11:55 11:55 11:55 RBC 5.97 H D Hgb 11.2 L D Hct MCV 63.5 L MCH 18.7 L MCHC 29.4 L RDW 21.9 H D Plt Count 117 L D PT with INR 12.40 H Potassium 3.0 L Chloride 92 L D Anion Gap 20 H BUN 20 H D Creatinine Random Glucose 124 H D Lactic Acid Calcium Direct Bilirubin AST 53 H D Total Protein 9.0 H D Acetaminophen Alcohol, Quantitative Crossmatch 05/26/17 05/26/17 05/26/17 11:55 11:55 11:55 RBC Hgb Hct MCV MCH MCHC RDW Plt Count PT with INR Potassium Chloride Anion Gap BUN Creatinine Random Glucose Lactic Acid 4.4 H* Calcium Direct Bilirubin AST Total Protein Acetaminophen < 10 L Alcohol, Quantitative 329.0 H* Crossmatch See Detail 05/26/17 05/26/17 05/26/17 15:30 15:30 15:30 RBC Hgb 9.8 L D Hct 32.4 L MCV 64.0 L MCH 19.3 L MCHC 30.2 L RDW 22.3 H Plt Count 72 L D PT with INR Potassium Chloride Anion Gap BUN 20 H Creatinine 0.6 L D Random Glucose 116 H Lactic Acid 3.6 H* Calcium 7.8 L Direct Bilirubin 0.3 H AST 48 H Total Protein Acetaminophen Alcohol, Quantitative Crossmatch Problem List - Problems (1) Alcohol abuse Code(s): F10.10 - ALCOHOL ABUSE, UNCOMPLICATED (2) GIB (gastrointestinal bleeding) Code(s): K92.2 - GASTROINTESTINAL HEMORRHAGE, UNSPECIFIED Qualifiers: GI bleed type/associated pathology: unspecified gastrointestinal hemorrhage type Qualified Code(s): K92.2 - Gastrointestinal hemorrhage, unspecified Assessment/Plan A 52 yom intoxicated on admission. Hx of Upper GI bleeding relavively recently. Protracted vomiting per history with hematemesis and severe epigastric pain. EGD this PM showed severe esophagitis, mild gastritis with a focal superficial NG trauma. Normal appearing, examined small bowel mucosa. No blood, fresh, or old noted anywhere. Biopsies taken from gastric antrum, body and distal esophagus. Of note, no esophageal, or gastric varices noted. PPI po BID Carafate 1 gm po qid Soft diet Hgb in AM Follow pathology results Monitor for withdrawal, DT
[2017-05-26 19:52] LABS: LIPASE 458 U/L (73-393)
[2017-05-26] MEDS: SODIUM CHLORIDE 1,000 ML IV SCH (20:00)
[2017-05-26 20:05] LABS: URINE PROTEIN 2+ (NEGATIVE)
[2017-05-26] MEDS ORDERED: ONDANSETRON 4 MG/2 ML VIAL IVPUSH PRN (20:08)
[2017-05-26] MEDS ORDERED: ONDANSETRON 4 MG/2 ML VIAL ONE (21:22)
[2017-05-26 21:31] LABS: URINE BACTERIA RARE /hpf (NONE SEEN); URINE HYALINE CAST 17 /lpf; URINE MUCUS MODERATE
[2017-05-26] MEDS ORDERED: MUPIROCIN 2% TOPICAL OINTMENT FOR DECOLONIZATION NS SCH (22:00)
[2017-05-26] MEDS ORDERED: CHLORHEXIDINE GLUCONATE 4% CLEANSER FOR DECOLONIZATION TP SCH (22:00)
[2017-05-26] MEDS ORDERED: chlordiazePOXIDE HCL 25 MG CAPSULE PO PRN (22:05)
[2017-05-26] MEDS ORDERED: chlordiazePOXIDE HCL 25 MG CAPSULE PO ONE (22:05)
[2017-05-26] MEDS ORDERED: LORazepam 2 MG/ML SDV VIAL IVPUSH PRN (22:29)
[2017-05-26] MEDS: chlordiazePOXIDE HCL 25 MG CAPSULE PO SCH (23:29)
[2017-05-26] MEDS: SUCRALFATE 1 GM/10 ML UNIT DOSE CUPS PO SCH (23:29)
[2017-05-26 23:41] LABS: BASO % 0.5 % (0-2.0); HEMATOCRIT 27.1 % (35.4-49); LYMPH % 13.8 % (8-40); MCHC 29.6 g/dl (32.0-35.9); MEAN CELL VOLUME 64.5 fl (80-96); MEAN PLT VOLUME 8.6 fl (7.5-11.1); MONO % 6.9 % (3.8-10.2); NEUT % 78.8 % (42.8-82.8); PLATELET COUNT 65 K/MM3 (134-434); RBC 4.21 M/mm3 (4.00-5.60); RDW 21.5 % (11.9-15.9); WHITE BLOOD COUNT 6.6 K/mm3 (4.0-10.0)
[2017-05-26 23:43] LABS: MCH 19.1 pg (25.7-33.7)
[2017-05-27] MEDS: chlordiazePOXIDE HCL 25 MG CAPSULE PO SCH ×3 (04:26→17:00)
[2017-05-27] MEDS: SODIUM CHLORIDE 1,000 ML IV SCH ×2 (04:29→22:11)
[2017-05-27 07:26] LABS: BASO % 0.9 % (0-2.0); EOS % 0.7 % (0-4.5); HEMATOCRIT 22.7 % (35.4-49); LYMPH % 17.6 % (8-40); MCHC 28.9 g/dl (32.0-35.9); MEAN CELL VOLUME 65.5 fl (80-96); MEAN PLT VOLUME 8.7 fl (7.5-11.1); MONO % 7.5 % (3.8-10.2); NEUT % 73.3 % (42.8-82.8); PLATELET COUNT 43 K/MM3 (134-434); RBC 3.47 M/mm3 (4.00-5.60)
[2017-05-27 07:40] LABS: MCH 18.9 pg (25.7-33.7)
[2017-05-27 07:42] LABS: HEMOGLOBIN 6.6 GM/dL (11.7-16.9)
[2017-05-27 07:43] LABS: ADD RBC MORPHOLOGY YES
--- NOTE | 2017-05-27 08:33 | PN ---
Physical Exam: SUBJECTIVE: Patient seen and examined at bedside. Pale. States doesn't feel well. OBJECTIVE: Vital Signs Period Temp Pulse Resp BP Sys/Boykin Pulse Ox Last 24 Hr 97.4 F-98.7 F 102-161 16-22 97-162/63-95 94-100 GENERAL: The patient is awake, alert, and oriented, in no acute distress. Pale, sweaty. LUNGS: Breath sounds CTA HEART: Tachycardic, RRR, S1, S2 ABDOMEN: Soft, diffusely tender EXTREMITIES: 2+ pulses, warm, well-perfused, no edema. NEUROLOGICAL: Cranial nerves II through XII grossly intact. Normal speech SKIN: Cool, clammy Laboratory Results - last 24 hr 05/26/17 05/26/17 05/26/17 11:32 11:55 11:55 WBC 8.2 D RBC 5.97 H D Hgb 11.2 L D Hct 37.9 D MCV 63.5 L MCH 18.7 L MCHC 29.4 L RDW 21.9 H D Plt Count 117 L D MPV 8.7 Neutrophils % 59.6 Lymphocytes % 33.2 D Monocytes % 5.8 Eosinophils % 0.2 D Basophils % 1.2 Hypochromia 2+ Platelet Comment Anisocytosis 2+ Microcytosis 2+ Target Cells 1+ Fragmented RBCs 1+ PT with INR INR PTT (Actin FS) Sodium 139 Potassium 3.0 L Chloride 92 L D Carbon Dioxide 27 Anion Gap 20 H BUN 20 H D Creatinine 0.8 D Creat Clearance w eGFR > 60 Random Glucose 124 H D Lactic Acid Calcium 8.8 Phosphorus 4.0 D Magnesium 1.9 Total Bilirubin 0.9 D Direct Bilirubin AST 53 H D ALT 39 D Alkaline Phosphatase 76 D Creatine Kinase 293 Creatine Kinase Index 0.3 CK-MB (CK-2) < 1.000 Troponin I < 0.02 Total Protein 9.0 H D Albumin 4.7 D Lipase 458 H Urine Color Urine Appearance Urine pH Ur Specific [place] Urine Protein Urine Glucose (UA) Urine Ketones Urine Blood Urine Nitrite Urine Bilirubin Urine Urobilinogen Ur Leukocyte Esterase Urine WBC (Auto) Urine RBC (Auto) Urine Bacteria Hyaline Casts Urine Mucus Stool Occult Blood Negative Salicylates Opiates Screen Methadone Screen Acetaminophen Barbiturate Screen Phencyclidine Screen Ur Amphetamines Screen MDMA (Ecstasy) Screen Benzodiazepines Screen Cocaine Screen U Marijuana (THC) Screen Alcohol, Quantitative Blood Type Antibody Screen Crossmatch 05/26/17 05/26/17 05/26/17 11:55 11:55 11:55 WBC RBC Hgb Hct MCV MCH MCHC RDW Plt Count MPV Neutrophils % Lymphocytes % Monocytes % Eosinophils % Basophils % Hypochromia Platelet Comment Anisocytosis Microcytosis Target Cells Fragmented RBCs PT with INR 12.40 H INR 1.10 PTT (Actin FS) 30.3 Sodium Potassium Chloride Carbon Dioxide Anion Gap BUN Creatinine Creat Clearance w eGFR Random Glucose Lactic Acid Calcium Phosphorus Magnesium Total Bilirubin Direct Bilirubin AST ALT Alkaline Phosphatase Creatine Kinase Creatine Kinase Index CK-MB (CK-2) Troponin I Total Protein Albumin Lipase Urine Color Urine Appearance Urine pH Ur Specific [place] Urine Protein Urine Glucose (UA) Urine Ketones Urine Blood Urine Nitrite Urine Bilirubin Urine Urobilinogen Ur Leukocyte Esterase Urine WBC (Auto) Urine RBC (Auto) Urine Bacteria Hyaline Casts Urine Mucus Stool Occult Blood Salicylates < 4.0 Opiates Screen Methadone Screen Acetaminophen < 10 L Barbiturate Screen Phencyclidine Screen Ur Amphetamines Screen MDMA (Ecstasy) Screen Benzodiazepines Screen Cocaine Screen U Marijuana (THC) Screen Alcohol, Quantitative 329.0 H* Blood Type A POSITIVE Antibody Screen Negative Crossmatch See Detail 05/26/17 05/26/17 05/26/17 11:55 15:30 15:30 WBC 4.7 D RBC 5.07 Hgb 9.8 L D Hct 32.4 L MCV 64.0 L MCH 19.3 L MCHC 30.2 L RDW 22.3 H Plt Count 72 L D MPV 8.9 Neutrophils % 64.0 Lymphocytes % 26.6 Monocytes % 7.3 Eosinophils % 0.1 Basophils % 2.0 Hypochromia Platelet Comment No clumping noted Anisocytosis Microcytosis Target Cells Fragmented RBCs PT with INR INR PTT (Actin FS) Sodium Potassium Chloride Carbon Dioxide Anion Gap BUN Creatinine Creat Clearance w eGFR Random Glucose Lactic Acid 4.4 H* 3.6 H* Calcium Phosphorus Magnesium Total Bilirubin Direct Bilirubin AST ALT Alkaline Phosphatase Creatine Kinase Creatine Kinase Index CK-MB (CK-2) Troponin I Total Protein Albumin Lipase Urine Color Urine Appearance Urine pH Ur Specific [place] Urine Protein Urine Glucose (UA) Urine Ketones Urine Blood Urine Nitrite Urine Bilirubin Urine Urobilinogen Ur Leukocyte Esterase Urine WBC (Auto) Urine RBC (Auto) Urine Bacteria Hyaline Casts Urine Mucus Stool Occult Blood Salicylates Opiates Screen Methadone Screen Acetaminophen Barbiturate Screen Phencyclidine Screen Ur Amphetamines Screen MDMA (Ecstasy) Screen Benzodiazepines Screen Cocaine Screen U Marijuana (THC) Screen Alcohol, Quantitative Blood Type Antibody Screen Crossmatch 05/26/17 05/26/17 05/26/17 15:30 16:05 16:05 WBC RBC Hgb Hct MCV MCH MCHC RDW Plt Count MPV Neutrophils % Lymphocytes % Monocytes % Eosinophils % Basophils % Hypochromia Platelet Comment Anisocytosis Microcytosis Target Cells Fragmented RBCs PT with INR INR PTT (Actin FS) Sodium 137 Potassium 4.3 D Chloride 99 Carbon Dioxide 26 Anion Gap 12 BUN 20 H Creatinine 0.6 L D Creat Clearance w eGFR Random Glucose 116 H Lactic Acid Calcium 7.8 L Phosphorus Magnesium 2.0 Total Bilirubin 1.0 Direct Bilirubin 0.3 H AST 48 H ALT 37 Alkaline Phosphatase 64 Creatine Kinase Creatine Kinase Index CK-MB (CK-2) Troponin I Total Protein 7.6 Albumin 3.8 Lipase Urine Color Dkyellow Urine Appearance Slcloudy Urine pH 5.0 Ur Specific [place] 1.025 Urine Protein 2+ H Urine Glucose (UA) Negative Urine Ketones 2+ H Urine Blood 1+ H Urine Nitrite Negative Urine Bilirubin Negative Urine Urobilinogen 2.0 Ur Leukocyte Esterase Negative Urine WBC (Auto) 19 Urine RBC (Auto) 2 Urine Bacteria Rare Hyaline Casts 17 Urine Mucus Moderate Stool Occult Blood Salicylates Opiates Screen Negative Methadone Screen Negative Acetaminophen Barbiturate Screen Negative Phencyclidine Screen Negative Ur Amphetamines Screen Negative MDMA (Ecstasy) Screen Negative Benzodiazepines Screen Negative Cocaine Screen Negative U Marijuana (THC) Screen Negative Alcohol, Quantitative Blood Type Antibody Screen Crossmatch 05/26/17 05/26/17 05/27/17 23:15 23:15 06:20 WBC 6.6 D 6.0 RBC 4.21 3.47 L Hgb 8.0 L D 6.6 L* D Hct 27.1 L D 22.7 L D MCV 64.5 L 65.5 L MCH 19.1 L 18.9 L MCHC 29.6 L 28.9 L RDW 21.5 H 21.0 H Plt Count 65 L 43 L D MPV 8.6 8.7 Neutrophils % 78.8 D 73.3 Lymphocytes % 13.8 D 17.6 D Monocytes % 6.9 7.5 Eosinophils % 0.0 D 0.7 D Basophils % 0.5 0.9 Hypochromia Platelet Comment Anisocytosis Microcytosis Target Cells Fragmented RBCs PT with INR INR PTT (Actin FS) Sodium Potassium Chloride Carbon Dioxide Anion Gap BUN Creatinine Creat Clearance w eGFR Random Glucose Lactic Acid 2.4 H* Calcium Phosphorus Magnesium Total Bilirubin Direct Bilirubin AST ALT Alkaline Phosphatase Creatine Kinase Creatine Kinase Index CK-MB (CK-2) Troponin I Total Protein Albumin Lipase Urine Color Urine Appearance Urine pH Ur Specific [place] Urine Protein Urine Glucose (UA) Urine Ketones Urine Blood Urine Nitrite Urine Bilirubin Urine Urobilinogen Ur Leukocyte Esterase Urine WBC (Auto) Urine RBC (Auto) Urine Bacteria Hyaline Casts Urine Mucus Stool Occult Blood Salicylates Opiates Screen Methadone Screen Acetaminophen Barbiturate Screen Phencyclidine Screen Ur Amphetamines Screen MDMA (Ecstasy) Screen Benzodiazepines Screen Cocaine Screen U Marijuana (THC) Screen Alcohol, Quantitative Blood Type Antibody Screen Crossmatch Active Medications Generic Name Dose Route Start Last Admin Trade Name Freq PRN Reason Stop Dose Admin Chlordiazepoxide HCl 50 mg 05/26/17 23:00 05/27/17 04:26 Librium - PO 05/27/17 17:01 50 mg [id number] ALPA Administration Chlordiazepoxide HCl 25 mg 05/27/17 23:00 Librium - PO 05/28/17 17:01 [id number] ALPA Chlordiazepoxide HCl 15 mg 05/28/17 23:00 Librium - PO 05/29/17 17:01 [id number] ALPA Chlordiazepoxide HCl 25 mg 05/26/17 22:05 Librium - PO 05/29/17 22:04 Q4H PRN WITHDRAWAL(CONT SUBST) Chlorhexidine Gluconate 1 applic 05/27/17 22:00 Hibiclens For Decolonization - TP HS ALPA Folic Acid 1 mg 05/27/17 10:00 Folic Acid - PO DAILY ALPA Sodium Chloride 1,000 mls @ 100 mls/hr 05/26/17 21:15 05/27/17 04:29 Normal Saline - IV 100 mls/hr ASDIR ALPA Administration Pantoprazole Sodium 80 mg/ 100 mls @ 10 mls/hr 05/27/17 08:15 Sodium Chloride IVPB Q10H ALPA 8 MG/HR Lorazepam 2 mg 05/26/17 22:29 Ativan Injection - IVPUSH ONCE PRN AGITATION Mupirocin 1 applic 05/27/17 10:00 Bactroban Ointment (For Decolonization) - NS 06/01/17 09:59 BID ALPA Ondansetron HCl 4 mg 05/26/17 20:08 05/26/17 21:24 Zofran Injection IVPUSH 4 mg Q6H PRN Administration NAUSEA AND/OR VOMITING Sucralfate 1 gm 05/26/17 22:00 05/26/17 23:29 Carafate Oral Suspension - PO 1 gm QID ALPA Administration Thiamine HCl 100 mg 05/27/17 10:00 Vitamin B1 - PO DAILY [facility] ASSESSMENT/PLAN: 52 year-old male with a PMH significant for HTN, heavy alcohol use, Dieulafoy AVM esophageal lesion, and variceal bleed. Admitted for hematemesis and severe epigastric pain. Severe erosive esophagitis Gastritis --s/p EGD on 05/26 --no esophageal or gastric varices noted --pending biopsy results --spitting up blood-streaked sputum this morning Acute blood loss anemia Melena --Hgb 11.2 on admission --> 6.6 this morning --episode of melena today --BP stable, tachycardic --transfuse 2U PRBC now --bolus fluids --protonix drip --carafate QID --repeat cbc q6h Alcohol abuse Elevated lipase --continue librium protocol; ativan PRN for seizure activity --continue thiamine, folic acid FEN Fluids: NS @ 125mL/hr Electrolytes: replete as indicated Nutrition: NPO DVT prophylaxis: SCDs Dispo: transfer to ICU. Full code. Visit type - Emergency Visit Emergency Visit: Yes ED Registration Date: 05/26/17 Care time: The patient presented to the Emergency Department on the above date and was hospitalized for further evaluation of their emergent condition. - New Patient This patient is new to me today: No - Critical Care Critical Care patient: Yes Total Critical Care Time (in minutes): 60 Critical Care Statement: The care of this patient involved high complexity decision making to prevent further life threatening deterioration of the patient 's condition and/or to evaluate & treat vital organ system(s) failure or risk of failure.
[2017-05-27 08:34] LABS: ANISOCYTOSIS 2+; OVALOCYTE 1+; PLATELET ESTIMATE DECREASED; TARGET CELLS 3+; TEAR DROP CELLS 1+
[2017-05-27 08:43] LABS: MAGNESIUM 1.3 mg/dL (1.8-2.4); PHOSPHOROUS 2.8 mg/dL (2.5-4.9)
[2017-05-27] MEDS ORDERED: PT OWN MED DRAWER 7, Y5N ONE (08:55)
[2017-05-27 08:57] LABS: ALBUMIN 2.9 g/dl (3.4-5.0); ALK PHOS 46 U/L (45-117); ANION GAP 7 (8-16); BLOOD UREA NITROGEN 17 mg/dL (7-18); CHLORIDE 99 mmol/L (98-107); CO2 28 mmol/L (21-32); CREATININE 0.5 mg/dL (0.7-1.3); GLUCOSE,RANDOM 92 mg/dL (74-106); LIPASE 302 U/L (73-393); MAGNESIUM 1.3 mg/dL (1.8-2.4); PHOSPHOROUS 2.5 mg/dL (2.5-4.9); POTASSIUM 3.7 mmol/L (3.5-5.1); SGOT/AST 31 U/L (15-37); SGPT/ALT 26 U/L (12-78); SODIUM 134 mmol/L (136-145); TOT PROT 5.8 g/dl (6.4-8.2)
[2017-05-27] MEDS ORDERED: MAGNESIUM SULF 50% (8.12 MEQ/2 ML-1 GM VIAL) IVPB ONE (09:03)
[2017-05-27] MEDS ORDERED: THIAMINE HCL 200 MG/2 ML VIAL IM SCH (10:00)
[2017-05-27] MEDS ORDERED: FOLIC ACID 5 MG/1 ML SQ SCH (10:00)
[2017-05-27] MEDS ORDERED: SUCRALFATE 1 GM/10 ML UNIT DOSE CUPS PO SCH (10:00)
[2017-05-27] MEDS ORDERED: FOLIC ACID 1 MG TABLET (FP) PO SCH (10:00)
[2017-05-27] MEDS ORDERED: THIAMINE HCL 100 MG TABLET (FP) PO SCH (10:00)
[2017-05-27] MEDS ORDERED: PANTOPRAZOLE 40 MG TABLET (FP) PO SCH (10:00)
[2017-05-27] MEDS: SUCRALFATE 1 GM/10 ML UNIT DOSE CUPS PO SCH ×4 (10:40→22:11)
[2017-05-27] MEDS: THIAMINE HCL 200 MG/2 ML VIAL IM SCH (10:53)
--- NOTE | 2017-05-27 11:12 | PROC ---
Endoscopy Procedure Endoscopy procedure completed. Please see scanned procedure report.
--- NOTE | 2017-05-27 12:44 | PN ---
Teaching Attending Note Name of Resident: Marilin Batista ATTENDING PHYSICIAN STATEMENT I saw and evaluated the patient. I reviewed the resident's note and discussed the case with the resident. I agree with the resident's findings and plan as documented. SUBJECTIVE: Patient seen and examined in the ICU. 52 M, history of heavy alcohol use (last drank a bottle of Bacardi about an hour [employer] to the ED), Dieulafoy AVM esophageal lesion, variceal bleed, and HTN. Admitted via the ER due to vomiting blood x 3 days. EGD last night: severe esophagitis, mild gastritis with a focal superficial NG trauma. Normal appearing, examined small bowel mucosa. Biopsies taken from gastric antrum, body and distal esophagus. No esophageal, or gastric varices noted. Intake & Output 05/24/17 05/25/17 05/26/17 05/27/17 23:59 23:59 23:59 23:59 Intake Total 1760 1700 Output Total 1255 800 Balance 505 900 Weight 165 lb Last Vital Signs Temp Pulse Resp BP Pulse Ox 98.5 F 112 H 18 126/74 100 05/27/17 12:11 05/27/17 12:11 05/27/17 12:11 05/27/17 12:11 05/27/17 10:00 Active Medications Chlordiazepoxide HCl (Librium -) 50 mg PO [id number] [facility] Stop: 05/27/17 17:01 Last Admin: 05/27/17 04:26 Dose: 50 mg Chlordiazepoxide HCl (Librium -) 25 mg PO [id number] [facility] Stop: 05/28/17 17:01 Chlordiazepoxide HCl (Librium -) 15 mg PO [id number] [facility] Stop: 05/29/17 17:01 Chlordiazepoxide HCl (Librium -) 25 mg PO Q4H PRN PRN Reason: WITHDRAWAL(CONT SUBST) Stop: 05/29/17 22:04 Chlorhexidine Gluconate (Hibiclens For Decolonization -) 1 applic TP HS [facility] Folic Acid (Folic Acid Injection -) 0.4 mg SQ DAILY [facility] Sodium Chloride (Normal Saline -) 1,000 mls @ 100 mls/hr IV ASDIR [facility] Last Admin: 05/27/17 04:29 Dose: 100 mls/hr Pantoprazole Sodium 80 mg/ (Sodium Chloride) 100 mls @ 10 mls/hr IVPB Q10H [facility] PRN Reason: 8 MG/HR Lorazepam (Ativan Injection -) 2 mg IVPUSH ONCE PRN PRN Reason: AGITATION Mupirocin (Bactroban Ointment (For Decolonization) -) 1 applic NS BID [facility] Stop: 06/01/17 09:59 Ondansetron HCl (Zofran Injection) 4 mg IVPUSH Q6H PRN PRN Reason: NAUSEA AND/OR VOMITING Last Admin: 05/26/17 21:24 Dose: 4 mg Sucralfate (Carafate Oral Suspension -) 1 gm PO QID [facility] Last Admin: 05/27/17 10:40 Dose: Not Given Thiamine HCl (Vitamin B1 Injection -) 200 mg IM DAILY [facility] Last Admin: 05/27/17 10:53 Dose: 200 mg Constitutional: Yes: Mildly anxious, Awake and alert Eyes: Yes: Conjunctiva Clear HENT: Yes: Other (forhead scars) Neck: Yes: Supple Cardiovascular: Yes: Tachycardia Respiratory: Yes: Regular Gastrointestinal Inspection: No: Distention ...Palpate: Yes: Tenderness, Epigastium. No: Firm/Rigid, Guarding Neurological: Yes: Alert, Oriented, No Asterixis Labs: Laboratory Results - last 24 hr 05/26/17 05/26/17 05/26/17 11:32 11:55 11:55 WBC RBC Hgb Hct MCV MCH MCHC RDW Plt Count 117 L D MPV Neutrophils % Lymphocytes % Monocytes % Eosinophils % Basophils % Hypochromia 2+ Platelet Estimate Platelet Comment Polychromasia Anisocytosis 2+ Microcytosis 2+ Target Cells 1+ Tear Drop Cells Ovalocytes Fragmented RBCs 1+ PT with INR INR PTT (Actin FS) Sodium 139 Potassium 3.0 L Chloride 92 L D Carbon Dioxide 27 Anion Gap 20 H BUN 20 H D Creatinine 0.8 D Creat Clearance w eGFR > 60 Random Glucose 124 H D Lactic Acid Calcium 8.8 Phosphorus 4.0 D Magnesium 1.9 Total Bilirubin 0.9 D Direct Bilirubin AST 53 H D ALT 39 D Alkaline Phosphatase 76 D Creatine Kinase 293 Creatine Kinase Index 0.3 CK-MB (CK-2) < 1.000 Troponin I < 0.02 Total Protein 9.0 H D Albumin 4.7 D Lipase 458 H Urine Color Urine Appearance Urine pH Ur Specific [place] Urine Protein Urine Glucose (UA) Urine Ketones Urine Blood Urine Nitrite Urine Bilirubin Urine Urobilinogen Ur Leukocyte Esterase Urine WBC (Auto) Urine RBC (Auto) Urine Bacteria Hyaline Casts Urine Mucus Stool Occult Blood Negative Salicylates Opiates Screen Methadone Screen Acetaminophen Barbiturate Screen Phencyclidine Screen Ur Amphetamines Screen MDMA (Ecstasy) Screen Benzodiazepines Screen Cocaine Screen U Marijuana (THC) Screen Alcohol, Quantitative Blood Type Antibody Screen Crossmatch 05/26/17 05/26/17 05/26/17 11:55 11:55 11:55 WBC RBC Hgb Hct MCV MCH MCHC RDW Plt Count MPV Neutrophils % Lymphocytes % Monocytes % Eosinophils % Basophils % Hypochromia Platelet Estimate Platelet Comment Polychromasia Anisocytosis Microcytosis Target Cells Tear Drop Cells Ovalocytes Fragmented RBCs PT with INR 12.40 H INR 1.10 PTT (Actin FS) 30.3 Sodium Potassium Chloride Carbon Dioxide Anion Gap BUN Creatinine Creat Clearance w eGFR Random Glucose Lactic Acid Calcium Phosphorus Magnesium Total Bilirubin Direct Bilirubin AST ALT Alkaline Phosphatase Creatine Kinase Creatine Kinase Index CK-MB (CK-2) Troponin I Total Protein Albumin Lipase Urine Color Urine Appearance Urine pH Ur Specific [place] Urine Protein Urine Glucose (UA) Urine Ketones Urine Blood Urine Nitrite Urine Bilirubin Urine Urobilinogen Ur Leukocyte Esterase Urine WBC (Auto) Urine RBC (Auto) Urine Bacteria Hyaline Casts Urine Mucus Stool Occult Blood Salicylates < 4.0 Opiates Screen Methadone Screen Acetaminophen < 10 L Barbiturate Screen Phencyclidine Screen Ur Amphetamines Screen MDMA (Ecstasy) Screen Benzodiazepines Screen Cocaine Screen U Marijuana (THC) Screen Alcohol, Quantitative 329.0 H* Blood Type A POSITIVE Antibody Screen Negative Crossmatch See Detail 05/26/17 05/26/17 05/26/17 11:55 15:30 15:30 WBC 4.7 D RBC 5.07 Hgb 9.8 L D Hct 32.4 L MCV 64.0 L MCH 19.3 L MCHC 30.2 L RDW 22.3 H Plt Count 72 L D MPV 8.9 Neutrophils % 64.0 Lymphocytes % 26.6 Monocytes % 7.3 Eosinophils % 0.1 Basophils % 2.0 Hypochromia Platelet Estimate Platelet Comment No clumping noted Polychromasia Anisocytosis Microcytosis Target Cells Tear Drop Cells Ovalocytes Fragmented RBCs PT with INR INR PTT (Actin FS) Sodium Potassium Chloride Carbon Dioxide Anion Gap BUN Creatinine Creat Clearance w eGFR Random Glucose Lactic Acid 4.4 H* 3.6 H* Calcium Phosphorus Magnesium Total Bilirubin Direct Bilirubin AST ALT Alkaline Phosphatase Creatine Kinase Creatine Kinase Index CK-MB (CK-2) Troponin I Total Protein Albumin Lipase Urine Color Urine Appearance Urine pH Ur Specific [place] Urine Protein Urine Glucose (UA) Urine Ketones Urine Blood Urine Nitrite Urine Bilirubin Urine Urobilinogen Ur Leukocyte Esterase Urine WBC (Auto) Urine RBC (Auto) Urine Bacteria Hyaline Casts Urine Mucus Stool Occult Blood Salicylates Opiates Screen Methadone Screen Acetaminophen Barbiturate Screen Phencyclidine Screen Ur Amphetamines Screen MDMA (Ecstasy) Screen Benzodiazepines Screen Cocaine Screen U Marijuana (THC) Screen Alcohol, Quantitative Blood Type Antibody Screen Crossmatch 05/26/17 05/26/17 05/26/17 15:30 16:05 16:05 WBC RBC Hgb Hct MCV MCH MCHC RDW Plt Count MPV Neutrophils % Lymphocytes % Monocytes % Eosinophils % Basophils % Hypochromia Platelet Estimate Platelet Comment Polychromasia Anisocytosis Microcytosis Target Cells Tear Drop Cells Ovalocytes Fragmented RBCs PT with INR INR PTT (Actin FS) Sodium 137 Potassium 4.3 D Chloride 99 Carbon Dioxide 26 Anion Gap 12 BUN 20 H Creatinine 0.6 L D Creat Clearance w eGFR Random Glucose 116 H Lactic Acid Calcium 7.8 L Phosphorus Magnesium 2.0 Total Bilirubin 1.0 Direct Bilirubin 0.3 H AST 48 H ALT 37 Alkaline Phosphatase 64 Creatine Kinase Creatine Kinase Index CK-MB (CK-2) Troponin I Total Protein 7.6 Albumin 3.8 Lipase Urine Color Dkyellow Urine Appearance Slcloudy Urine pH 5.0 Ur Specific [place] 1.025 Urine Protein 2+ H Urine Glucose (UA) Negative Urine Ketones 2+ H Urine Blood 1+ H Urine Nitrite Negative Urine Bilirubin Negative Urine Urobilinogen 2.0 Ur Leukocyte Esterase Negative Urine WBC (Auto) 19 Urine RBC (Auto) 2 Urine Bacteria Rare Hyaline Casts 17 Urine Mucus Moderate Stool Occult Blood Salicylates Opiates Screen Negative Methadone Screen Negative Acetaminophen Barbiturate Screen Negative Phencyclidine Screen Negative Ur Amphetamines Screen Negative MDMA (Ecstasy) Screen Negative Benzodiazepines Screen Negative Cocaine Screen Negative U Marijuana (THC) Screen Negative Alcohol, Quantitative Blood Type Antibody Screen Crossmatch 05/26/17 05/26/17 05/27/17 23:15 23:15 06:20 WBC 6.6 D 6.0 RBC 4.21 3.47 L Hgb 8.0 L D 6.6 L* D Hct 27.1 L D 22.7 L D MCV 64.5 L 65.5 L MCH 19.1 L 18.9 L MCHC 29.6 L 28.9 L RDW 21.5 H 21.0 H Plt Count 65 L 43 L D MPV 8.6 8.7 Neutrophils % 78.8 D 73.3 Lymphocytes % 13.8 D 17.6 D Monocytes % 6.9 7.5 Eosinophils % 0.0 D 0.7 D Basophils % 0.5 0.9 Hypochromia 3+ Platelet Estimate Decreased Platelet Comment No clumping noted Polychromasia 1+ Anisocytosis 2+ Microcytosis 1+ Target Cells 3+ Tear Drop Cells 1+ Ovalocytes 1+ Fragmented RBCs PT with INR INR PTT (Actin FS) Sodium Potassium Chloride Carbon Dioxide Anion Gap BUN Creatinine Creat Clearance w eGFR Random Glucose Lactic Acid 2.4 H* Calcium Phosphorus Magnesium Total Bilirubin Direct Bilirubin AST ALT Alkaline Phosphatase Creatine Kinase Creatine Kinase Index CK-MB (CK-2) Troponin I Total Protein Albumin Lipase Urine Color Urine Appearance Urine pH Ur Specific [place] Urine Protein Urine Glucose (UA) Urine Ketones Urine Blood Urine Nitrite Urine Bilirubin Urine Urobilinogen Ur Leukocyte Esterase Urine WBC (Auto) Urine RBC (Auto) Urine Bacteria Hyaline Casts Urine Mucus Stool Occult Blood Salicylates Opiates Screen Methadone Screen Acetaminophen Barbiturate Screen Phencyclidine Screen Ur Amphetamines Screen MDMA (Ecstasy) Screen Benzodiazepines Screen Cocaine Screen U Marijuana (THC) Screen Alcohol, Quantitative Blood Type Antibody Screen Crossmatch 05/27/17 05/27/17 05/27/17 06:20 06:20 06:20 WBC RBC Hgb Hct MCV MCH MCHC RDW Plt Count MPV Neutrophils % Lymphocytes % Monocytes % Eosinophils % Basophils % Hypochromia Platelet Estimate Platelet Comment Polychromasia Anisocytosis Microcytosis Target Cells Tear Drop Cells Ovalocytes Fragmented RBCs PT with INR INR PTT (Actin FS) Sodium 134 L Potassium 3.7 Chloride 99 Carbon Dioxide 28 Anion Gap 7 L BUN 17 Creatinine 0.5 L Creat Clearance w eGFR > 60 Random Glucose 92 D Lactic Acid 1.4 Calcium 7.0 L Phosphorus 2.8 D 2.5 Magnesium 1.3 L D 1.3 L Total Bilirubin 1.0 Direct Bilirubin AST 31 D ALT 26 D Alkaline Phosphatase 46 D Creatine Kinase Creatine Kinase Index CK-MB (CK-2) Troponin I Total Protein 5.8 L D Albumin 2.9 L D Lipase 302 Urine Color Urine Appearance Urine pH Ur Specific [place] Urine Protein Urine Glucose (UA) Urine Ketones Urine Blood Urine Nitrite Urine Bilirubin Urine Urobilinogen Ur Leukocyte Esterase Urine WBC (Auto) Urine RBC (Auto) Urine Bacteria Hyaline Casts Urine Mucus Stool Occult Blood Salicylates Opiates Screen Methadone Screen Acetaminophen Barbiturate Screen Phencyclidine Screen Ur Amphetamines Screen MDMA (Ecstasy) Screen Benzodiazepines Screen Cocaine Screen U Marijuana (THC) Screen Alcohol, Quantitative Blood Type Antibody Screen Crossmatch Problem List - Problems (1) Alcohol abuse Code(s): F10.10 - ALCOHOL ABUSE, UNCOMPLICATED (2) GIB (gastrointestinal bleeding) Code(s): K92.2 - GASTROINTESTINAL HEMORRHAGE, UNSPECIFIED Qualifiers: GI bleed type/associated pathology: unspecified gastrointestinal hemorrhage type Qualified Code(s): K92.2 - Gastrointestinal hemorrhage, unspecified Assessment/Plan Follow H&H Transfusional support PPI drip Carafate 1 gm po QID NPO Follow pathology results Monitor for withdrawal, DT Dr Davalos Critical care time spent in reviewing chart, evaluating patient and formulating plan - 38 minutes.
[2017-05-27] MEDS ORDERED: FUROSEMIDE 40 MG/4 ML INJECTABLE VIAL IVPUSH ONE ×3 (13:04→18:21)
[2017-05-27] MEDS: FOLIC ACID 5 MG/1 ML SQ SCH (13:50)
[2017-05-27] MEDS: MUPIROCIN 2% TOPICAL OINTMENT FOR DECOLONIZATION NS SCH ×2 (13:50→22:11)
--- NOTE | 2017-05-27 14:23 | PN ---
Progress Note, Physician History of Present Illness: Hgb 6.6 g/dl,normal BUN. No melanotic diarrhea. Transferred to ICU overnight. Drop in Hgb likely represents equilibration. EGD revealed severe erosive, friable esophagitis and mild gastritis. No ulcers, or acute lesions noted. - Current Medication List Current Medications: Active Medications Chlordiazepoxide HCl (Librium -) 50 mg PO [id number] [facility] Stop: 05/27/17 17:01 Last Admin: 05/27/17 11:00 Dose: Not Given Chlordiazepoxide HCl (Librium -) 25 mg PO [id number] [facility] Stop: 05/28/17 17:01 Chlordiazepoxide HCl (Librium -) 15 mg PO [id number] [facility] Stop: 05/29/17 17:01 Chlordiazepoxide HCl (Librium -) 25 mg PO Q4H PRN PRN Reason: WITHDRAWAL(CONT SUBST) Stop: 05/29/17 22:04 Chlorhexidine Gluconate (Hibiclens For Decolonization -) 1 applic TP HS [facility] Folic Acid (Folic Acid Injection -) 0.4 mg SQ DAILY [facility] Last Admin: 05/27/17 13:50 Dose: 0.4 mg Furosemide (Lasix Injection -) 40 mg IVPUSH ONCE ONE Stop: 05/27/17 13:05 Sodium Chloride (Normal Saline -) 1,000 mls @ 100 mls/hr IV ASDIR [facility] Last Admin: 05/27/17 04:29 Dose: 100 mls/hr Pantoprazole Sodium 80 mg/ (Sodium Chloride) 100 mls @ 10 mls/hr IVPB Q10H [facility] PRN Reason: 8 MG/HR Lorazepam (Ativan Injection -) 2 mg IVPUSH ONCE PRN PRN Reason: AGITATION Mupirocin (Bactroban Ointment (For Decolonization) -) 1 applic NS BID [facility] Stop: 06/01/17 09:59 Last Admin: 05/27/17 13:50 Dose: 1 applic Ondansetron HCl (Zofran Injection) 4 mg IVPUSH Q6H PRN PRN Reason: NAUSEA AND/OR VOMITING Last Admin: 05/26/17 21:24 Dose: 4 mg Sucralfate (Carafate Oral Suspension -) 1 gm PO QID [facility] Last Admin: 05/27/17 13:51 Dose: Not Given Thiamine HCl (Vitamin B1 Injection -) 200 mg IM DAILY [facility] Last Admin: 05/27/17 10:53 Dose: 200 mg - Objective Vital Signs: Vital Signs Temperature 98.5 F 05/27/17 12:11 Pulse Rate 112 H 05/27/17 12:11 Respiratory Rate 18 05/27/17 12:11 Blood Pressure 126/74 05/27/17 12:11 O2 Sat by Pulse Oximetry (%) 100 05/27/17 10:00 Constitutional: Yes: Mild Distress Gastrointestinal: Yes: Tenderness, Epigastrium Labs: CBC, BMP 05/27/17 06:20 05/27/17 06:20 INR, PTT INR 1.10 (0.82-1.09) 05/26/17 11:55 Problem List - Problems (1) Alcohol abuse Code(s): F10.10 - ALCOHOL ABUSE, UNCOMPLICATED (2) GIB (gastrointestinal bleeding) Code(s): K92.2 - GASTROINTESTINAL HEMORRHAGE, UNSPECIFIED Qualifiers: GI bleed type/associated pathology: unspecified gastrointestinal hemorrhage type Qualified Code(s): K92.2 - Gastrointestinal hemorrhage, unspecified Assessment/Plan PPI IV Liquid carafate 1 gm po qid Liquid diet Monitor Hgb q 6 hrs Monitor for withdrawal, DT
[2017-05-27] MEDS: PANTOPRAZOLE SODIUM 80 MG in SODIUM CHLORIDE 100 ML IVPB SCH ×2 (15:19→18:24)
[2017-05-27] MEDS ORDERED: FUROSEMIDE 40 MG/4 ML INJECTABLE VIAL ONE (15:53)
[2017-05-27 16:30] LABS: BASO % 0.7 % (0-2.0); EOS % 0.3 % (0-4.5); HEMATOCRIT 25.2 % (35.4-49); HEMOGLOBIN 7.7 GM/dL (11.7-16.9); LYMPH % 11.4 % (8-40); MCH 21.8 pg (25.7-33.7); MCHC 30.7 g/dl (32.0-35.9); MONO % 7.7 % (3.8-10.2); NEUT % 79.9 % (42.8-82.8); RBC 3.56 M/mm3 (4.00-5.60); RDW 26.7 % (11.9-15.9); WHITE BLOOD COUNT 6.8 K/mm3 (4.0-10.0)
[2017-05-27 16:32] LABS: ADD RBC MORPHOLOGY YES
[2017-05-27 17:10] LABS: ALBUMIN 2.8 g/dl (3.4-5.0); ANION GAP 11 (8-16); BILIRUBIN,TOTAL 1.5 mg/dL (0.2-1.0); BLOOD UREA NITROGEN 27 mg/dL (7-18); CALCIUM 7.4 mg/dL (8.5-10.1); CHLORIDE 99 mmol/L (98-107); CO2 27 mmol/L (21-32); CREATININE 0.4 mg/dL (0.7-1.3); GLUCOSE,RANDOM 121 mg/dL (74-106); POTASSIUM 3.7 mmol/L (3.5-5.1); SGOT/AST 29 U/L (15-37); SGPT/ALT 23 U/L (12-78); SODIUM 137 mmol/L (136-145); TOT PROT 5.5 g/dl (6.4-8.2)
[2017-05-27 17:11] LABS: ALK PHOS 43 U/L (45-117)
[2017-05-27] MEDS ORDERED: chlordiazePOXIDE HCL 25 MG CAPSULE PO PRN (19:35)
[2017-05-27] MEDS ORDERED: ONDANSETRON 4 MG/2 ML VIAL IVPUSH PRN (19:35)
[2017-05-27 19:40] LABS: MEAN PLT VOLUME 8.8 fl (7.5-11.1); PLATELET COUNT 48 K/MM3 (134-434)
[2017-05-27 19:43] LABS: ANISOCYTOSIS 3+
[2017-05-27 19:44] LABS: MACROCYTOSIS 1+; OVALOCYTE 1+
[2017-05-27 19:45] LABS: PLATELET ESTIMATE MOD DECREASED
--- NOTE | 2017-05-27 20:34 | PN ---
Progress Note, Physician Chief Complaint: Pt. comfortable, no GA complaints. Transfered to ICU secondary to a drop in Hgb overnight. - Current Medication List Current Medications: Active Medications Chlorhexidine Gluconate (Hibiclens For Decolonization -) 1 applic TP HS [facility] Folic Acid (Folic Acid Injection -) 0.4 mg SQ DAILY [facility] Last Admin: 05/27/17 13:50 Dose: 0.4 mg Pantoprazole Sodium 80 mg/ (Sodium Chloride) 100 mls @ 10 mls/hr IVPB Q10H [facility] PRN Reason: 8 MG/HR Last Admin: 05/27/17 18:24 Dose: Not Given Sodium Chloride (Normal Saline -) 1,000 mls @ 100 mls/hr IV ASDIR [facility] Lorazepam (Ativan Injection -) 2 mg IVPUSH Q6H-IV [facility] Stop: 05/28/17 15:01 Mupirocin (Bactroban Ointment (For Decolonization) -) 1 applic NS BID [facility] Stop: 06/01/17 09:59 Last Admin: 05/27/17 13:50 Dose: 1 applic Ondansetron HCl (Zofran Injection) 4 mg IVPUSH Q6H PRN PRN Reason: NAUSEA AND/OR VOMITING Sucralfate (Carafate Oral Suspension -) 1 gm PO QID [facility] Thiamine HCl (Vitamin B1 Injection -) 200 mg IM DAILY [facility] Last Admin: 05/27/17 10:53 Dose: 200 mg - Objective Vital Signs: Vital Signs Temperature 99.5 F 05/27/17 18:00 Pulse Rate 148 H 05/27/17 18:00 Respiratory Rate 18 05/27/17 18:00 Blood Pressure 119/82 05/27/17 18:00 O2 Sat by Pulse Oximetry (%) 100 05/27/17 10:00 Constitutional: Yes: Well Nourished, No Distress, Calm Musculoskeletal: Yes: WNL Neurological: Yes: WNL, Alert, Oriented Labs: CBC, BMP 05/27/17 13:55 05/27/17 13:55 INR, PTT INR 1.10 (0.82-1.09) 05/26/17 11:55 Assessment/Plan POD#1 s/p EGD under GA. Doing well from anesthesia standpoint. D/C from anesthesia care.
--- NOTE | 2017-05-27 21:41 | PN ---
Physical Exam: SUBJECTIVE: Patient seen and examined. Seen spitting up bright red blood this morning. Last drink prior to presentation yesterday OBJECTIVE: Vital Signs Period Temp Pulse Resp BP Sys/Boykin Pulse Ox Last 24 Hr 97.4 F-99.5 F 102-148 16-22 119-162/63-95 99-100 Vital Signs Temp 99.2 F 05/27/17 20:00 Pulse 133 H 05/27/17 20:00 Resp 18 05/27/17 21:00 BP 131/79 05/27/17 20:00 Pulse Ox 100 05/27/17 21:00 Intake & Output 05/26/17 05/27/17 05/27/17 23:59 11:59 23:59 Intake Total 1760 1700 Output Total 1255 800 Balance 505 900 Weight 74.843 kg Intake: IV 1500 700 Normal Saline - 1,000 ml 100 700 @ 100 mls/hr IV ASDIR [facility] Rx#:[id number] banana bag 1000 IVPB 200 Oral 60 1000 Output: Urine 1255 800 Hsu 255 800 Other: Voiding Method Indwelling Catheter Indwelling Catheter Indwelling Catheter Bowel Movement No Height 1.68 m Body Mass Index (BMI) 26.6 Weight Measurement Method Standing Scale GENERAL: The patient is awake, alert, and fully oriented EYES: PERRL, extraocular movements intact, sclera anicteric, conjunctiva clear. ENT: Spitting up bright red blood LUNGS: Breath sounds equal, clear to auscultation bilaterally, no wheezes, no crackles, no accessory muscle use. HEART: Tachycardic, S1, S2 without murmur, rub or gallop. ABDOMEN: Soft, nontender, nondistended, normoactive bowel sounds, no guarding, no rebound, no hepatosplenomegaly, no masses. EXTREMITIES: 2+ pulses, warm, well-perfused, no edema. NEUROLOGICAL: Cranial nerves II through XII grossly intact. Normal speech, gait not observed. PSYCH: Normal mood, normal affect. SKIN: Warm, dry, normal turgor, no rashes or lesions noted Laboratory Results - last 24 hr 05/26/17 05/26/17 05/26/17 11:55 16:05 23:15 WBC RBC Hgb Hct MCV MCH MCHC RDW Plt Count MPV Neutrophils % Lymphocytes % Monocytes % Eosinophils % Basophils % Hypochromia Platelet Estimate Platelet Comment Polychromasia Poikilocytosis Basophilic Stippling Anisocytosis Microcytosis Macrocytosis Target Cells Tear Drop Cells Ovalocytes Sodium Potassium Chloride Carbon Dioxide Anion Gap BUN Creatinine Creat Clearance w eGFR Random Glucose Lactic Acid 2.4 H* Calcium Phosphorus Magnesium Total Bilirubin AST ALT Alkaline Phosphatase Total Protein Albumin Lipase Urine WBC (Auto) 19 Urine RBC (Auto) 2 Urine Bacteria Rare Hyaline Casts 17 Urine Mucus Moderate Blood Type A POSITIVE Antibody Screen Negative Crossmatch See Detail 05/26/17 05/27/17 05/27/17 23:15 06:20 06:20 WBC 6.6 D 6.0 RBC 4.21 3.47 L Hgb 8.0 L D 6.6 L* D Hct 27.1 L D 22.7 L D MCV 64.5 L 65.5 L MCH 19.1 L 18.9 L MCHC 29.6 L 28.9 L RDW 21.5 H 21.0 H Plt Count 65 L 43 L D MPV 8.6 8.7 Neutrophils % 78.8 D 73.3 Lymphocytes % 13.8 D 17.6 D Monocytes % 6.9 7.5 Eosinophils % 0.0 D 0.7 D Basophils % 0.5 0.9 Hypochromia 3+ Platelet Estimate Decreased Platelet Comment No clumping noted Polychromasia 1+ Poikilocytosis Basophilic Stippling Anisocytosis 2+ Microcytosis 1+ Macrocytosis Target Cells 3+ Tear Drop Cells 1+ Ovalocytes 1+ Sodium Potassium Chloride Carbon Dioxide Anion Gap BUN Creatinine Creat Clearance w eGFR Random Glucose Lactic Acid Calcium Phosphorus 2.8 D Magnesium 1.3 L D Total Bilirubin AST ALT Alkaline Phosphatase Total Protein Albumin Lipase Urine WBC (Auto) Urine RBC (Auto) Urine Bacteria Hyaline Casts Urine Mucus Blood Type Antibody Screen Crossmatch 05/27/17 05/27/17 05/27/17 06:20 06:20 13:55 WBC 6.8 RBC 3.56 L Hgb 7.7 L D Hct 25.2 L MCV 71.0 L D MCH 21.8 L MCHC 30.7 L RDW 26.7 H Plt Count 48 L MPV 8.8 Neutrophils % 79.9 Lymphocytes % 11.4 D Monocytes % 7.7 Eosinophils % 0.3 Basophils % 0.7 Hypochromia 2+ Platelet Estimate Mod decreased Platelet Comment Polychromasia 1+ Poikilocytosis 1+ Basophilic Stippling Few Anisocytosis 3+ Microcytosis Macrocytosis 1+ Target Cells Tear Drop Cells Ovalocytes 1+ Sodium 134 L Potassium 3.7 Chloride 99 Carbon Dioxide 28 Anion Gap 7 L BUN 17 Creatinine 0.5 L Creat Clearance w eGFR > 60 Random Glucose 92 D Lactic Acid 1.4 Calcium 7.0 L Phosphorus 2.5 Magnesium 1.3 L Total Bilirubin 1.0 AST 31 D ALT 26 D Alkaline Phosphatase 46 D Total Protein 5.8 L D Albumin 2.9 L D Lipase 302 Urine WBC (Auto) Urine RBC (Auto) Urine Bacteria Hyaline Casts Urine Mucus Blood Type Antibody Screen Crossmatch 05/27/17 05/27/17 13:55 13:55 WBC RBC Hgb Hct MCV MCH MCHC RDW Plt Count MPV Neutrophils % Lymphocytes % Monocytes % Eosinophils % Basophils % Hypochromia Platelet Estimate Platelet Comment Polychromasia Poikilocytosis Basophilic Stippling Anisocytosis Microcytosis Macrocytosis Target Cells Tear Drop Cells Ovalocytes Sodium 137 Potassium 3.7 Chloride 99 Carbon Dioxide 27 Anion Gap 11 BUN 27 H D Creatinine 0.4 L Creat Clearance w eGFR > 60 Random Glucose 121 H D Lactic Acid 1.3 Calcium 7.4 L Phosphorus Magnesium 2.0 D Total Bilirubin 1.5 H D AST 29 ALT 23 Alkaline Phosphatase 43 L Total Protein 5.5 L Albumin 2.8 L Lipase Urine WBC (Auto) Urine RBC (Auto) Urine Bacteria Hyaline Casts Urine Mucus Blood Type Antibody Screen Crossmatch Active Medications Generic Name Dose Route Start Last Admin Trade Name Freq PRN Reason Stop Dose Admin Chlorhexidine Gluconate 1 applic 05/27/17 22:00 Hibiclens For Decolonization - TP HS [facility] Folic Acid 0.4 mg 05/27/17 10:00 05/27/17 13:50 Folic Acid Injection - SQ 0.4 mg DAILY [facility] Administration Pantoprazole Sodium 80 mg/ 100 mls @ 10 mls/hr 05/27/17 08:15 05/27/17 18:24 Sodium Chloride IVPB Not Given Q10H [facility] 8 MG/HR Sodium Chloride 1,000 mls @ 100 mls/hr 05/27/17 19:35 Normal Saline - IV ASDIR [facility] Lorazepam 2 mg 05/27/17 21:00 Ativan Injection - IVPUSH 05/28/17 15:01 Q6H-IV [facility] Mupirocin 1 applic 05/27/17 10:00 05/27/17 13:50 Bactroban Ointment (For Decolonization) - NS 06/01/17 09:59 1 applic BID [facility] Administration Ondansetron HCl 4 mg 05/27/17 19:35 Zofran Injection IVPUSH Q6H PRN NAUSEA AND/OR VOMITING Sucralfate 1 gm 05/27/17 22:00 Carafate Oral Suspension - PO QID [facility] Thiamine HCl 200 mg 05/27/17 10:00 05/27/17 10:53 Vitamin B1 Injection - IM 200 mg DAILY [facility] Administration ASSESSMENT/PLAN: 52 year-old M with PMHx of HTN, heavy alcohol use, Dieulafoy AVM esophageal lesion, and variceal bleed, presented with hematemesis, and found to be anemic GI: Likely UGI bleed-Hematemesis and anemia Hx of alcohol abuse, s/p EGD on 05/26 no esophageal or gastric varices noted Received 2u PRBCs yesterday To receive 2 more PRBCs today 2 units of platelets NS @ 125mL/hr protonix drip carafate QID Liquid diet- per Dr Hester Pathology report pending post endoscopy- Dr Hester im thiamine 200mg daily zofran 4mg ivpush Q6H ([id number]) CBC Q6H Folic acid Hemonc: Acute severe anemia 2/2 to UGI bleed Received 2u PRBCs yesterday To receive 2 more PRBCs today 2 units of platelets CBCs Monitor Metab: Current alcohol use disorder tachycardic, hypertensive- likely in alcohol withdrawal Received one dose of librium this am till became NPO Resume librium protocol Iv ativan 2mg PRN im thiamine 200mg daily Hypertension Could be exacerbated by withdrawal Ativan PRN Monitor FEN Fluids: NS @ 125mL/hr Electrolytes: replete as indicated Nutrition: Liquid diet DVT prophylaxis: SCDs Dispo: Monitor in ICU. Full code. Visit type - Emergency Visit Emergency Visit: Yes ED Registration Date: 05/26/17 Care time: The patient presented to the Emergency Department on the above date and was hospitalized for further evaluation of their emergent condition. - New Patient This patient is new to me today: Yes Date on this admission: 12/29/17 - Critical Care Critical Care patient: Yes Total Critical Care Time (in minutes): 37 Critical Care Statement: The care of this patient involved high complexity decision making to prevent further life threatening deterioration of the patient 's condition and/or to evaluate & treat vital organ system(s) failure or risk of failure. - Discharge Referral Referred to [facility] No
[2017-05-27] MEDS: LORazepam 2 MG/ML SDV VIAL IVPUSH SCH (22:11)
[2017-05-27] MEDS: CHLORHEXIDINE GLUCONATE 4% CLEANSER FOR DECOLONIZATION TP SCH (22:12)
[2017-05-27] MEDS ORDERED: chlordiazePOXIDE HCL 25 MG CAPSULE PO SCH ×2 (23:00)
[2017-05-28] MEDS: PANTOPRAZOLE SODIUM 80 MG in SODIUM CHLORIDE 100 ML IVPB SCH ×3 (06:23→14:15)
[2017-05-28] MEDS: LORazepam 2 MG/ML SDV VIAL IVPUSH SCH ×3 (06:23→15:40)
[2017-05-28 06:37] LABS: BASO % 0.3 % (0-2.0); EOS % 1.1 % (0-4.5); HEMATOCRIT 25.2 % (35.4-49); HEMOGLOBIN 8.1 GM/dL (11.7-16.9); LYMPH % 16.2 % (8-40); MCH 23.9 pg (25.7-33.7); MCHC 32.3 g/dl (32.0-35.9); MEAN CELL VOLUME 73.9 fl (80-96); MEAN PLT VOLUME 8.8 fl (7.5-11.1); MONO % 6.4 % (3.8-10.2); PLATELET COUNT 85 K/MM3 (134-434); RBC 3.41 M/mm3 (4.00-5.60); RDW 24.9 % (11.9-15.9); WHITE BLOOD COUNT 5.4 K/mm3 (4.0-10.0)
[2017-05-28 07:07] LABS: ALBUMIN 3.1 g/dl (3.4-5.0); ANION GAP 12 (8-16); BLOOD UREA NITROGEN 18 mg/dL (7-18); CALCIUM 7.4 mg/dL (8.5-10.1); CHLORIDE 102 mmol/L (98-107); CO2 27 mmol/L (21-32); CREATININE 0.3 mg/dL (0.7-1.3); GLUCOSE,RANDOM 83 mg/dL (74-106); PHOSPHOROUS 1.9 mg/dL (2.5-4.9); POTASSIUM 3.3 mmol/L (3.5-5.1); SGOT/AST 24 U/L (15-37); SGPT/ALT 21 U/L (12-78); SODIUM 141 mmol/L (136-145)
[2017-05-28 07:09] LABS: ALK PHOS 48 U/L (45-117); BILIRUBIN,TOTAL 1.6 mg/dL (0.2-1.0); TOT PROT 5.8 g/dl (6.4-8.2)
--- NOTE | 2017-05-28 08:35 | PN ---
Physical Exam: SUBJECTIVE: Patient seen and examined. States he feels better. States he is very hungry. Denies abd pain, nausea, rectal bleeds. OBJECTIVE: Vital Signs Period Temp Pulse Resp BP Sys/Boykin Pulse Ox Last 24 Hr 98.5 F-99.5 F 104-148 16-22 119-146/74-85 100-100 GENERAL: The patient is awake, alert, oriented to person only "02/24/16," "I don' t know where I am", in no acute distress. HEAD: Normal with no signs of trauma. EYES: PERRL, extraocular movements intact, sclera anicteric, conjunctiva clear. No ptosis. ENT: Ears normal, nares patent, oropharynx clear without exudates, moist mucous membranes. LUNGS: Breath sounds equal, clear to auscultation bilaterally, no wheezes, no crackles, no accessory muscle use. HEART: Tachycardic, S1, S2 without murmur, rub or gallop. ABDOMEN: Soft, nontender, nondistended, normoactive bowel sounds, no guarding, no rebound, no hepatosplenomegaly, no masses. EXTREMITIES: 2+ pulses, warm, well-perfused, no edema. NEUROLOGICAL: Cranial nerves II through XII grossly intact. Normal speech, gait not observed. No tremors observed. No tongue fasciculation present. PSYCH: Normal mood, normal affect. SKIN: Warm, dry, normal turgor, no rashes or lesions noted. Laboratory Results - last 24 hr 05/26/17 05/27/17 05/27/17 11:55 06:20 06:20 WBC RBC Hgb Hct MCV MCH MCHC RDW Plt Count MPV Neutrophils % Lymphocytes % Monocytes % Eosinophils % Basophils % Hypochromia 3+ Platelet Estimate Decreased Platelet Comment No clumping noted Polychromasia 1+ Poikilocytosis Basophilic Stippling Anisocytosis 2+ Microcytosis 1+ Macrocytosis Target Cells 3+ Tear Drop Cells 1+ Ovalocytes 1+ Sodium Potassium Chloride Carbon Dioxide Anion Gap BUN Creatinine Creat Clearance w eGFR Random Glucose Lactic Acid Calcium Phosphorus 2.8 D Magnesium 1.3 L D Total Bilirubin AST ALT Alkaline Phosphatase Total Protein Albumin Lipase Blood Type A POSITIVE Antibody Screen Negative Crossmatch See Detail 05/27/17 05/27/17 05/27/17 06:20 06:20 13:55 WBC 6.8 RBC 3.56 L Hgb 7.7 L D Hct 25.2 L MCV 71.0 L D MCH 21.8 L MCHC 30.7 L RDW 26.7 H Plt Count 48 L MPV 8.8 Neutrophils % 79.9 Lymphocytes % 11.4 D Monocytes % 7.7 Eosinophils % 0.3 Basophils % 0.7 Hypochromia 2+ Platelet Estimate Mod decreased Platelet Comment Polychromasia 1+ Poikilocytosis 1+ Basophilic Stippling Few Anisocytosis 3+ Microcytosis Macrocytosis 1+ Target Cells Tear Drop Cells Ovalocytes 1+ Sodium 134 L Potassium 3.7 Chloride 99 Carbon Dioxide 28 Anion Gap 7 L BUN 17 Creatinine 0.5 L Creat Clearance w eGFR > 60 Random Glucose 92 D Lactic Acid 1.4 Calcium 7.0 L Phosphorus 2.5 Magnesium 1.3 L Total Bilirubin 1.0 AST 31 D ALT 26 D Alkaline Phosphatase 46 D Total Protein 5.8 L D Albumin 2.9 L D Lipase 302 Blood Type Antibody Screen Crossmatch 05/27/17 05/27/17 05/28/17 13:55 13:55 06:15 WBC 5.4 RBC 3.41 L Hgb 8.1 L Hct 25.2 L MCV 73.9 L MCH 23.9 L MCHC 32.3 RDW 24.9 H Plt Count 85 L D MPV 8.8 Neutrophils % 76.0 Lymphocytes % 16.2 D Monocytes % 6.4 Eosinophils % 1.1 D Basophils % 0.3 Hypochromia Platelet Estimate Platelet Comment Polychromasia Poikilocytosis Basophilic Stippling Anisocytosis Microcytosis Macrocytosis Target Cells Tear Drop Cells Ovalocytes Sodium 137 Potassium 3.7 Chloride 99 Carbon Dioxide 27 Anion Gap 11 BUN 27 H D Creatinine 0.4 L Creat Clearance w eGFR > 60 Random Glucose 121 H D Lactic Acid 1.3 Calcium 7.4 L Phosphorus Magnesium 2.0 D Total Bilirubin 1.5 H D AST 29 ALT 23 Alkaline Phosphatase 43 L Total Protein 5.5 L Albumin 2.8 L Lipase Blood Type Antibody Screen Crossmatch 05/28/17 06:15 WBC RBC Hgb Hct MCV MCH MCHC RDW Plt Count MPV Neutrophils % Lymphocytes % Monocytes % Eosinophils % Basophils % Hypochromia Platelet Estimate Platelet Comment Polychromasia Poikilocytosis Basophilic Stippling Anisocytosis Microcytosis Macrocytosis Target Cells Tear Drop Cells Ovalocytes Sodium 141 Potassium 3.3 L Chloride 102 Carbon Dioxide 27 Anion Gap 12 BUN 18 D Creatinine 0.3 L D Creat Clearance w eGFR > 60 Random Glucose 83 D Lactic Acid Calcium 7.4 L Phosphorus 1.9 L D Magnesium 2.0 Total Bilirubin 1.6 H AST 24 ALT 21 Alkaline Phosphatase 48 Total Protein 5.8 L Albumin 3.1 L Lipase Blood Type Antibody Screen Crossmatch Active Medications Generic Name Dose Route Start Last Admin Trade Name Freq PRN Reason Stop Dose Admin Chlorhexidine Gluconate 1 applic 05/27/17 22:00 05/27/17 22:12 Hibiclens For Decolonization - TP 1 applic HS ALPA Administration Folic Acid 0.4 mg 05/27/17 10:00 05/27/17 13:50 Folic Acid Injection - SQ 0.4 mg DAILY ALPA Administration Pantoprazole Sodium 80 mg/ 100 mls @ 10 mls/hr 05/27/17 08:15 05/28/17 06:23 Sodium Chloride IVPB 10 mls/hr Q10H ALPA Administration 8 MG/HR Sodium Chloride 1,000 mls @ 100 mls/hr 05/27/17 19:35 05/27/17 22:11 Normal Saline - IV 100 mls/hr ASDIR ALPA Administration Lorazepam 2 mg 05/27/17 21:00 05/28/17 06:23 Ativan Injection - IVPUSH 05/28/17 15:01 Not Given Q6H-IV ALPA Mupirocin 1 applic 05/27/17 10:00 05/27/17 22:11 Bactroban Ointment (For Decolonization) - NS 06/01/17 09:59 1 applic BID [facility]PA Administration Ondansetron HCl 4 mg 05/27/17 19:35 Zofran Injection IVPUSH Q6H PRN NAUSEA AND/OR VOMITING Sucralfate 1 gm 05/27/17 22:00 05/27/17 22:11 Carafate Oral Suspension - PO 1 gm QID [facility]PA Administration Thiamine HCl 200 mg 05/27/17 10:00 05/27/17 10:53 Vitamin B1 Injection - IM 200 mg DAILY ALPA Administration ASSESSMENT/PLAN: A: 52 year-old male with a PMH significant for HTN, heavy alcohol use, Dieulafoy AVM esophageal lesion, and variceal bleed. Admitted for hematemesis and severe epigastric pain. P: GI: Severe erosive esophagitis Gastritis - s/p EGD on 05/26 - severe esophagitis present - no esophageal or gastric varices noted - pending biopsy results - spitting up white sputum this morning Alcohol abuse Elevated lipase- resolved - CIWA-Ar score-5 - serial CIWA-Ar - librium protocol held 07/01 NPO - ativan q6 x4 - continue thiamine, folic acid HEME: Acute blood loss anemia Melena - Hgb 11.2->6.6->8.1 s/p PRBC x4, Plts X2, FFP x1 - No melena, hematachezia - BP stable, tachycardic - protonix drip - carafate QID - repeat cbc q6h FEN - NS @ 125mL/hr - replete prn - full liquid diet- advance per GI DVT - SCDs - chemical held 07/01 gib Dispo- Requires continued ICU care- possible transfer once Hgb stable Visit type - Emergency Visit Emergency Visit: Yes ED Registration Date: 05/26/17 Care time: The patient presented to the Emergency Department on the above date and was hospitalized for further evaluation of their emergent condition. - New Patient This patient is new to me today: Yes Date on this admission: 05/28/17 - Critical Care Critical Care patient: Yes Total Critical Care Time (in minutes): 45 Critical Care Statement: The care of this patient involved high complexity decision making to prevent further life threatening deterioration of the patient 's condition and/or to evaluate & treat vital organ system(s) failure or risk of failure.
[2017-05-28] MEDS ORDERED: PT OWN MED DRAWER 7, Y5N ONE (09:07)
[2017-05-28] MEDS: MUPIROCIN 2% TOPICAL OINTMENT FOR DECOLONIZATION NS SCH ×2 (09:13→22:32)
[2017-05-28] MEDS: SUCRALFATE 1 GM/10 ML UNIT DOSE CUPS PO SCH ×4 (09:13→22:32)
[2017-05-28] MEDS: THIAMINE HCL 200 MG/2 ML VIAL IM SCH (09:17)
[2017-05-28] MEDS ORDERED: NAPH,MB-DB/K PH,MBDB POWDER PACKET PO ONE (09:42)
[2017-05-28] MEDS ORDERED: POTASSIUM CHLORIDE ORAL LIQUID 20 MEQ/15 ML PO ONE (09:43)
--- NOTE | 2017-05-28 10:16 | PN ---
Progress Note (short form) - Note Progress Note: Patient seen and examined in the ICU. Awake and alert. No hematamesis overnight. Denies CP or SOB. Reports feeling hungry. Intake & Output 05/25/17 05/26/17 05/27/17 05/28/17 23:59 23:59 23:59 23:59 Intake Total 1760 1700 1100 Output Total 1255 3400 800 Balance 505 -1700 300 Weight 165 lb Last Vital Signs Temp Pulse Resp BP Pulse Ox 99 F 98 H 12 144/75 100 05/28/17 08:00 05/28/17 08:00 05/28/17 09:00 05/28/17 08:00 05/28/17 09:00 Active Medications Chlorhexidine Gluconate (Hibiclens For Decolonization -) 1 applic TP HS [facility] Last Admin: 05/27/17 22:12 Dose: 1 applic Folic Acid (Folic Acid Injection -) 0.4 mg SQ DAILY [facility] Last Admin: 05/27/17 13:50 Dose: 0.4 mg Pantoprazole Sodium 80 mg/ (Sodium Chloride) 100 mls @ 10 mls/hr IVPB Q10H [facility] PRN Reason: 8 MG/HR Last Admin: 05/28/17 06:23 Dose: 10 mls/hr Sodium Chloride (Normal Saline -) 1,000 mls @ 100 mls/hr IV ASDIR [facility] Last Admin: 05/27/17 22:11 Dose: 100 mls/hr Lorazepam (Ativan Injection -) 2 mg IVPUSH Q6H-IV [facility] Stop: 05/28/17 15:01 Last Admin: 05/28/17 09:10 Dose: 2 mg Mupirocin (Bactroban Ointment (For Decolonization) -) 1 applic NS BID [facility] Stop: 06/01/17 09:59 Last Admin: 05/28/17 09:13 Dose: 1 applic Ondansetron HCl (Zofran Injection) 4 mg IVPUSH Q6H PRN PRN Reason: NAUSEA AND/OR VOMITING Sucralfate (Carafate Oral Suspension -) 1 gm PO QID [facility] Last Admin: 05/28/17 09:13 Dose: 1 gm Thiamine HCl (Vitamin B1 Injection -) 200 mg IM DAILY [facility] Last Admin: 05/28/17 09:17 Dose: 200 mg Constitutional: Yes: Awake and alert, NAD Eyes: Yes: Conjunctiva Clear HENT: Yes: Other (forhead scars) Neck: Yes: Supple Cardiovascular: Yes: Tachycardia Respiratory: Yes: Regular Gastrointestinal Inspection: No: Distention ...Palpate: Yes: minimal tenderness, Epigastium. No: Firm/Rigid, Guarding Neurological: Yes: Alert, Oriented, No Asterixis Labs: Laboratory Results - last 24 hr 05/26/17 05/27/17 05/27/17 11:55 13:55 13:55 WBC 6.8 RBC 3.56 L Hgb 7.7 L D Hct 25.2 L MCV 71.0 L D MCH 21.8 L MCHC 30.7 L RDW 26.7 H Plt Count 48 L MPV 8.8 Neutrophils % 79.9 Lymphocytes % 11.4 D Monocytes % 7.7 Eosinophils % 0.3 Basophils % 0.7 Hypochromia 2+ Platelet Estimate Mod decreased Platelet Comment Polychromasia 1+ Poikilocytosis 1+ Basophilic Stippling Few Anisocytosis 3+ Macrocytosis 1+ Ovalocytes 1+ Sodium 137 Potassium 3.7 Chloride 99 Carbon Dioxide 27 Anion Gap 11 BUN 27 H D Creatinine 0.4 L Creat Clearance w eGFR > 60 Random Glucose 121 H D Lactic Acid Calcium 7.4 L Phosphorus Magnesium 2.0 D Total Bilirubin 1.5 H D AST 29 ALT 23 Alkaline Phosphatase 43 L Total Protein 5.5 L Albumin 2.8 L Blood Type A POSITIVE Antibody Screen Negative Crossmatch See Detail 05/27/17 05/28/17 05/28/17 13:55 06:15 06:15 WBC 5.4 RBC 3.41 L Hgb 8.1 L Hct 25.2 L MCV 73.9 L MCH 23.9 L MCHC 32.3 RDW 24.9 H Plt Count 85 L D MPV 8.8 Neutrophils % 76.0 Lymphocytes % 16.2 D Monocytes % 6.4 Eosinophils % 1.1 D Basophils % 0.3 Hypochromia Platelet Estimate Platelet Comment Polychromasia Poikilocytosis Basophilic Stippling Anisocytosis Macrocytosis Ovalocytes Sodium 141 Potassium 3.3 L Chloride 102 Carbon Dioxide 27 Anion Gap 12 BUN 18 D Creatinine 0.3 L D Creat Clearance w eGFR > 60 Random Glucose 83 D Lactic Acid 1.3 Calcium 7.4 L Phosphorus 1.9 L D Magnesium 2.0 Total Bilirubin 1.6 H AST 24 ALT 21 Alkaline Phosphatase 48 Total Protein 5.8 L Albumin 3.1 L Blood Type Antibody Screen Crossmatch Problem List - Problems (1) Alcohol abuse Code(s): F10.10 - ALCOHOL ABUSE, UNCOMPLICATED (2) GIB (gastrointestinal bleeding) Code(s): K92.2 - GASTROINTESTINAL HEMORRHAGE, UNSPECIFIED Qualifiers: GI bleed type/associated pathology: unspecified gastrointestinal hemorrhage type Qualified Code(s): K92.2 - Gastrointestinal hemorrhage, unspecified Assessment/Plan Follow H&H Transfusional support PPI drip Carafate 1 gm po QID PO per GI Follow pathology results Floor Monitor for withdrawal, DT Dr Davalos Critical care time spent in reviewing chart, evaluating patient and formulating plan - 38 minutes.
--- NOTE | 2017-05-28 11:12 | EKG ---
Test Reason : Blood Pressure : / mmHG Vent. Rate : 117 BPM Atrial Rate : 117 BPM P-R Int : 134 ms QRS Dur : 076 ms QT Int : 336 ms P-R-T Axes : 038 032 036 degrees QTc Int : 468 ms SINUS TACHYCARDIA OTHERWISE NORMAL ECG WHEN COMPARED WITH ECG OF 26-MAY-2017 11:09, NO SIGNIFICANT CHANGE WAS FOUND Confirmed by SIDDHARTH TYLER MD ([id number]) on 05/28/2017 11:11:51 AM Referred By: Confirmed By:SIDDHARTH TYLER MD
[2017-05-28 13:10] LABS: BASO % 0.4 % (0-2.0); EOS % 1.8 % (0-4.5); HEMATOCRIT 26.8 % (35.4-49); HEMOGLOBIN 8.5 GM/dL (11.7-16.9); LYMPH % 19.8 % (8-40); MCH 23.4 pg (25.7-33.7); MCHC 31.6 g/dl (32.0-35.9); MEAN CELL VOLUME 73.9 fl (80-96); MEAN PLT VOLUME 8.4 fl (7.5-11.1); PLATELET COUNT 79 K/MM3 (134-434); RBC 3.62 M/mm3 (4.00-5.60); RDW 24.7 % (11.9-15.9); WHITE BLOOD COUNT 6.6 K/mm3 (4.0-10.0)
[2017-05-28 13:22] LABS: ADD RBC MORPHOLOGY YES
[2017-05-28] MEDS ORDERED: chlordiazePOXIDE HCL 25 MG CAPSULE PO PRN (14:16)
--- NOTE | 2017-05-28 14:35 | PN ---
GI Progress Note Subjective: GI Note ( covering Dr Hester) : Had 2 episodes of melena today but no vomiting. Hb stable. Not termulous. Discussed the need to abstain from alcohol. - Objective Vital Signs: Vital Signs Temperature 98.9 F 05/28/17 14:00 Pulse Rate 98 H 05/28/17 14:00 Respiratory Rate 20 05/28/17 14:00 Blood Pressure 116/77 05/28/17 14:00 O2 Sat by Pulse Oximetry (%) 100 05/28/17 10:19 Laboratory Tests 05/26/17 05/26/17 05/27/17 11:55 23:15 06:20 WBC Hgb 8.0 L D 6.6 L* D Plt Count PT with INR 12.40 H Total Bilirubin AST ALT Alkaline Phosphatase 05/27/17 05/28/17 05/28/17 13:55 06:15 06:15 WBC Hgb 7.7 L D 8.1 L Plt Count PT with INR Total Bilirubin 1.6 H AST 24 ALT 21 Alkaline Phosphatase 48 05/28/17 12:45 WBC 6.6 Hgb 8.5 L Plt Count 79 L PT with INR Total Bilirubin AST ALT Alkaline Phosphatase Constitutional: Calm ...Auscultate: Yes: Normoactive Bowel Sounds ...Palpate: Yes: Soft, Other (nontender) Labs: CBC, BMP 05/28/17 12:45 05/28/17 06:15 INR, PTT INR 1.10 (0.82-1.09) 05/26/17 11:55 Problem List - Problems (1) Alcohol abuse Assessment/Plan: Advised abstention from alcohol. Will check AFP. Code(s): F10.10 - ALCOHOL ABUSE, UNCOMPLICATED (2) Anemia Assessment/Plan: Due to GI bleed Code(s): D64.9 - ANEMIA, UNSPECIFIED Qualifiers: Anemia type: other cause Other causes of anemia: acute posthemorrhagic Qualified Code(s): D62 - Acute posthemorrhagic anemia (3) GIB (gastrointestinal bleeding) Assessment/Plan: The EGD suggested erosive esophagitis bleeding. The report is not available in the computer but Jessica Gimenez is entered in the problem list raising this as a possibility. Will continue PPI drip. Will try full liquids. Code(s): K92.2 - GASTROINTESTINAL HEMORRHAGE, UNSPECIFIED Qualifiers: GI bleed type/associated pathology: unspecified gastrointestinal hemorrhage type Qualified Code(s): K92.2 - Gastrointestinal hemorrhage, unspecified
[2017-05-28 14:58] LABS: ANISOCYTOSIS 2+
[2017-05-28 14:59] LABS: MACROCYTOSIS 1+; PLATELET ESTIMATE DECREASED
[2017-05-28] MEDS: FOLIC ACID 5 MG/1 ML SQ SCH (15:39)
[2017-05-28] MEDS: SODIUM CHLORIDE 1,000 ML IV SCH (15:52)
[2017-05-28] MEDS: chlordiazePOXIDE HCL 25 MG CAPSULE PO SCH ×2 (18:27→22:31)
[2017-05-28 20:40] LABS: HEMATOCRIT 23.8 % (35.4-49); HEMOGLOBIN 7.6 GM/dL (11.7-16.9); MCH 23.8 pg (25.7-33.7); MEAN CELL VOLUME 74.4 fl (80-96); PLATELET COUNT 77 K/MM3 (134-434); RDW 25.1 % (11.9-15.9); WHITE BLOOD COUNT 4.9 K/mm3 (4.0-10.0)
[2017-05-28] MEDS: CHLORHEXIDINE GLUCONATE 4% CLEANSER FOR DECOLONIZATION TP SCH (22:31)
[2017-05-28] MEDS ORDERED: chlordiazePOXIDE 5 MG CAPSULE PO SCH ×2 (23:00)
[2017-05-29] MEDS: PANTOPRAZOLE SODIUM 80 MG in SODIUM CHLORIDE 100 ML IVPB SCH ×2 (02:00→17:15)
[2017-05-29] MEDS: chlordiazePOXIDE HCL 25 MG CAPSULE PO SCH ×4 (06:00→23:07)
[2017-05-29 06:19] LABS: BASO % 0.6 % (0-2.0); HEMATOCRIT 27.9 % (35.4-49); LYMPH % 24.8 % (8-40); MCH 24.7 pg (25.7-33.7); MCHC 32.4 g/dl (32.0-35.9); MEAN CELL VOLUME 76.1 fl (80-96); MEAN PLT VOLUME 9.4 fl (7.5-11.1); MONO % 8.2 % (3.8-10.2); NEUT % 62.4 % (42.8-82.8); PLATELET COUNT 72 K/MM3 (134-434); RBC 3.66 M/mm3 (4.00-5.60); RDW 24.1 % (11.9-15.9); WHITE BLOOD COUNT 5.1 K/mm3 (4.0-10.0)
[2017-05-29 06:38] LABS: INR 1.15 (0.82-1.09)
[2017-05-29 06:56] LABS: ALBUMIN 3.1 g/dl (3.4-5.0); ANION GAP 10 (8-16); BILIRUBIN,TOTAL 0.9 mg/dL (0.2-1.0); BLOOD UREA NITROGEN 6 mg/dL (7-18); CALCIUM 7.3 mg/dL (8.5-10.1); CHLORIDE 101 mmol/L (98-107); CO2 24 mmol/L (21-32); CREATININE 0.3 mg/dL (0.7-1.3); GLUCOSE,RANDOM 84 mg/dL (74-106); POTASSIUM 3.2 mmol/L (3.5-5.1); SGOT/AST 29 U/L (15-37); SGPT/ALT 23 U/L (12-78); SODIUM 135 mmol/L (136-145)
[2017-05-29 06:58] LABS: ALK PHOS 48 U/L (45-117)
[2017-05-29] MEDS ORDERED: PT OWN MED DRAWER 7, Y5N ONE ×3 (09:43→17:08)
[2017-05-29] MEDS ORDERED: POTASSIUM CHLORIDE ORAL LIQUID 20 MEQ/15 ML PO ONE (09:52)
--- NOTE | 2017-05-29 09:52 | PN ---
Progress Note (short form) - Note Progress Note: Patient seen and examined in the ICU. Awake and alert. No hematemesis overnight, but with dark stools. Noted he received pRBCs last night. Denies CP or SOB. Noted started on full liquids. Intake & Output 05/26/17 05/27/17 05/28/17 05/29/17 23:59 23:59 23:59 23:59 Intake Total 1760 1700 3220 1670 Output Total 1255 3400 1550 2575 Balance 505 -1700 1670 -905 Weight 165 lb 169 lb 12.095 oz Last Vital Signs Temp Pulse Resp BP Pulse Ox 98 F 97 H 18 150/64 100 05/29/17 08:46 05/29/17 08:46 05/29/17 08:46 05/29/17 08:46 05/28/17 20:59 Active Medications Chlordiazepoxide HCl (Librium -) 50 mg PO [id number] [facility] Stop: 05/29/17 11:01 Last Admin: 05/29/17 06:00 Dose: 50 mg Chlordiazepoxide HCl (Librium -) 25 mg PO [id number] [facility] Stop: 05/30/17 11:01 Chlordiazepoxide HCl (Librium -) 15 mg PO [id number] [facility] Stop: 05/31/17 11:01 Chlordiazepoxide HCl (Librium -) 25 mg PO Q4H PRN PRN Reason: WITHDRAWAL(CONT SUBST) Stop: 05/31/17 14:15 Chlorhexidine Gluconate (Hibiclens For Decolonization -) 1 applic TP HS [facility] Last Admin: 05/28/17 22:31 Dose: 1 applic Folic Acid (Folic Acid Injection -) 0.4 mg SQ DAILY [facility] Last Admin: 05/28/17 15:39 Dose: 0.4 mg Pantoprazole Sodium 80 mg/ (Sodium Chloride) 100 mls @ 10 mls/hr IVPB Q10H [facility] PRN Reason: 8 MG/HR Last Admin: 05/29/17 02:00 Dose: 10 mls/hr Sodium Chloride (Normal Saline -) 1,000 mls @ 100 mls/hr IV ASDIR [facility] Last Admin: 05/28/17 15:52 Dose: 100 mls/hr Mupirocin (Bactroban Ointment (For Decolonization) -) 1 applic NS BID [facility] Stop: 06/01/17 09:59 Last Admin: 05/28/17 22:32 Dose: 1 applic Ondansetron HCl (Zofran Injection) 4 mg IVPUSH Q6H PRN PRN Reason: NAUSEA AND/OR VOMITING Sucralfate (Carafate Oral Suspension -) 1 gm PO QID [facility] Last Admin: 05/28/17 22:32 Dose: 1 gm Thiamine HCl (Vitamin B1 Injection -) 200 mg IM DAILY [facility] Last Admin: 05/28/17 09:17 Dose: 200 mg Constitutional: Yes: Awake and alert, NAD Eyes: Yes: Conjunctiva Clear HENT: Yes: Other (forhead scars) Neck: Yes: Supple Cardiovascular: Yes: Tachycardia Respiratory: Yes: Regular Gastrointestinal Inspection: No: Distention ...Palpate: Yes: minimal tenderness, Epigastium. No: Firm/Rigid, Guarding Neurological: Yes: Alert, Oriented, No Asterixis Labs: Laboratory Results - last 24 hr 05/26/17 05/28/17 05/28/17 11:55 12:45 20:25 WBC 6.6 4.9 RBC 3.62 L 3.20 L Hgb 8.5 L 7.6 L D Hct 26.8 L 23.8 L MCV 73.9 L 74.4 L MCH 23.4 L 23.8 L MCHC 31.6 L 32.0 RDW 24.7 H 25.1 H Plt Count 79 L 77 L MPV 8.4 9.0 Neutrophils % 71.0 Lymphocytes % 19.8 D Monocytes % 7.0 Eosinophils % 1.8 Basophils % 0.4 Hypochromia 2+ Platelet Estimate Decreased Platelet Comment No clotting detected Polychromasia 2+ Poikilocytosis 1+ Anisocytosis 2+ Microcytosis 1+ Macrocytosis 1+ PT with INR INR Sodium Potassium Chloride Carbon Dioxide Anion Gap BUN Creatinine Creat Clearance w eGFR Random Glucose Calcium Ferritin Total Bilirubin AST ALT Alkaline Phosphatase Total Protein Albumin Blood Type Antibody Screen Crossmatch See Detail 05/28/17 05/29/17 05/29/17 21:50 06:05 06:05 WBC 5.1 RBC 3.66 L Hgb 9.0 L D Hct 27.9 L D MCV 76.1 L MCH 24.7 L MCHC 32.4 RDW 24.1 H Plt Count 72 L MPV 9.4 Neutrophils % 62.4 Lymphocytes % 24.8 D Monocytes % 8.2 Eosinophils % 4.0 D Basophils % 0.6 Hypochromia Platelet Estimate Platelet Comment Polychromasia Poikilocytosis Anisocytosis Microcytosis Macrocytosis PT with INR INR Sodium 135 L Potassium 3.2 L Chloride 101 Carbon Dioxide 24 Anion Gap 10 BUN 6 L D Creatinine 0.3 L Creat Clearance w eGFR > 60 Random Glucose 84 Calcium 7.3 L Ferritin 47.073 Total Bilirubin 0.9 D AST 29 D ALT 23 Alkaline Phosphatase 48 Total Protein 6.0 L Albumin 3.1 L Blood Type A POSITIVE Antibody Screen Negative Crossmatch See Detail 05/29/17 05/29/17 06:05 06:05 WBC RBC Hgb Hct MCV MCH MCHC RDW Plt Count MPV Neutrophils % Lymphocytes % Monocytes % Eosinophils % Basophils % Hypochromia Platelet Estimate Platelet Comment Polychromasia Poikilocytosis Anisocytosis Microcytosis Macrocytosis PT with INR 13.00 H INR 1.15 H Sodium Potassium Chloride Carbon Dioxide Anion Gap BUN Creatinine Creat Clearance w eGFR Random Glucose Calcium Ferritin Cancelled Total Bilirubin AST ALT Alkaline Phosphatase Total Protein Albumin Blood Type Antibody Screen Crossmatch Problem List - Problems (1) Alcohol abuse Code(s): F10.10 - ALCOHOL ABUSE, UNCOMPLICATED (2) GIB (gastrointestinal bleeding) Code(s): K92.2 - GASTROINTESTINAL HEMORRHAGE, UNSPECIFIED Qualifiers: GI bleed type/associated pathology: unspecified gastrointestinal hemorrhage type Qualified Code(s): K92.2 - Gastrointestinal hemorrhage, unspecified Assessment/Plan Replace lytes Follow H&H Normal transfusion thresholds PPI Carafate 1 gm po QID PO per GI Follow pathology results Floor Monitor for withdrawal, DT Dr Davalos Critical care time spent in reviewing chart, evaluating patient and formulating plan - 38 minutes.
[2017-05-29] MEDS: SUCRALFATE 1 GM/10 ML UNIT DOSE CUPS PO SCH ×4 (10:10→21:38)
[2017-05-29] MEDS: MUPIROCIN 2% TOPICAL OINTMENT FOR DECOLONIZATION NS SCH ×2 (10:11→21:37)
[2017-05-29] MEDS: THIAMINE HCL 200 MG/2 ML VIAL IM SCH (10:12)
[2017-05-29] MEDS: FOLIC ACID 5 MG/1 ML SQ SCH (11:15)
--- NOTE | 2017-05-29 15:56 | PN ---
Progress Note (short form) - Note Progress Note: Subjective: The patient was seen and examined at the bedside, he has complaints of mild epigastric pain. Current Medications Generic Name Dose Route Start Last Admin Trade Name Freq PRN Reason Stop Dose Admin Chlordiazepoxide HCl 25 mg 05/29/17 17:00 Librium - PO 05/30/17 11:01 [id number] ALPA Chlordiazepoxide HCl 15 mg 05/30/17 17:00 Librium - PO 05/31/17 11:01 [id number] ALPA Chlordiazepoxide HCl 25 mg 05/28/17 14:16 Librium - PO 05/31/17 14:15 Q4H PRN WITHDRAWAL(CONT SUBST) Chlorhexidine Gluconate 1 applic 05/27/17 22:00 05/28/17 22:31 Hibiclens For Decolonization - TP 1 applic HS [facility] Administration Folic Acid 0.4 mg 05/27/17 10:00 05/29/17 11:15 Folic Acid Injection - SQ 0.4 mg DAILY [facility] Administration Pantoprazole Sodium 80 mg/ 100 mls @ 10 mls/hr 05/27/17 08:15 05/29/17 02:00 Sodium Chloride IVPB 10 mls/hr Q10H [facility] Administration 8 MG/HR Sodium Chloride 1,000 mls @ 100 mls/hr 05/27/17 19:35 05/28/17 15:52 Normal Saline - IV 100 mls/hr ASDIR ALPA Administration Mupirocin 1 applic 05/27/17 10:00 05/29/17 10:11 Bactroban Ointment (For Decolonization) - NS 06/01/17 09:59 1 applic BID [facility]PA Administration Ondansetron HCl 4 mg 05/27/17 19:35 Zofran Injection IVPUSH Q6H PRN NAUSEA AND/OR VOMITING Sucralfate 1 gm 05/27/17 22:00 05/29/17 10:10 Carafate Oral Suspension - PO 1 gm QID [facility]PA Administration Thiamine HCl 200 mg 05/27/17 10:00 05/29/17 10:12 Vitamin B1 Injection - IM 200 mg DAILY [facility] Administration Objective: Vital Signs Period Temp Pulse Resp BP Sys/Boykin Pulse Ox Last 24 Hr 98 F-98.6 F 88-100 12-20 111-150/64-90 100 Physical Exam: General: NAD, A&Ox3 Lungs: CTA bilaterally Heart: RRR, S1S2 Abd: Soft, non-tender, non-distended. Normoactive bowel sounds Ext: Warm, well-perfused. 2+ DP/PT bilaterally Neuro: CN 2-12 intact CBCD WBC 5.1 K/mm3 (4.0-10.0) 05/29/17 06:05 RBC 3.66 M/mm3 (4.00-5.60) L 05/29/17 06:05 Hgb 9.0 GM/dL (11.7-16.9) L D 05/29/17 06:05 Hct 27.9 % (35.4-49) L D 05/29/17 06:05 MCV 76.1 fl (80-96) L 05/29/17 06:05 MCHC 32.4 g/dl (32.0-35.9) 05/29/17 06:05 RDW 24.1 % (11.9-15.9) H 05/29/17 06:05 Plt Count 72 K/MM3 (134-434) L 05/29/17 06:05 MPV 9.4 fl (7.5-11.1) 05/29/17 06:05 CMP Sodium 135 mmol/L (136-145) L 05/29/17 06:05 Potassium 3.2 mmol/L (3.5-5.1) L 05/29/17 06:05 Chloride 101 mmol/L (98-107) 05/29/17 06:05 Carbon Dioxide 24 mmol/L (21-32) 05/29/17 06:05 Anion Gap 10 (8-16) 05/29/17 06:05 BUN 6 mg/dL (7-18) L D 05/29/17 06:05 Creatinine 0.3 mg/dL (0.7-1.3) L 05/29/17 06:05 Creat Clearance w eGFR > 60 (>60) 05/29/17 06:05 Random Glucose 84 mg/dL (74-106) 05/29/17 06:05 Calcium 7.3 mg/dL (8.5-10.1) L 05/29/17 06:05 Total Bilirubin 0.9 mg/dL (0.2-1.0) D 05/29/17 06:05 AST 29 U/L (15-37) D 05/29/17 06:05 ALT 23 U/L (12-78) 05/29/17 06:05 Alkaline Phosphatase 48 U/L (45-117) 05/29/17 06:05 Total Protein 6.0 g/dl (6.4-8.2) L 05/29/17 06:05 Albumin 3.1 g/dl (3.4-5.0) L 05/29/17 06:05 CARDIAC ENZYMES Creatine Kinase 293 IU/L (39-308) 05/26/17 11:55 Troponin I < 0.02 ng/ml (0.00-0.05) 05/26/17 11:55 Microbiology 05/26/17 16:12 Urine - Urine Clean Catch Urine Culture - Final Staphylococcus Aureus Assessment: This is a 52 year old male with PMHx of HTN, heavy alcohol use, Dieulafoy AVM, variceal bleeding, who presented to the ED with intoxication, bloody/coffee ground emesis. Plan: 1) GI: GI bleed - No hematemesis overnight but with dark stools - Received PRBC overnight - Monitor H/H - EGD with severe erosive, friable esophagitis and mild gastritis. F/u pathology results - Protonix gtt per GI - Continue Carafate - Full liquid diet as tolerated, advance per GI - Appreciate GI consult 2) Psych: Chronic alcohol use - Continue Libirum taper - No evidence of alcohol withdrawal - Continue Thiamine - Continue folic acid 3) Cardiology: HTN - Continue to monitor BP 4) F/E/N: - Full liquid diet - Monitor electrolytes 5) Prophylaxis: - OOB ambulating - Hold all chemical DVT prophylaxis 2/2 GI bleed 6) Dispo: - Requires continued inpatient care CODE STATUS: FULL CODE Visit type - Emergency Visit Emergency Visit: Yes ED Registration Date: 05/26/17 Care time: The patient presented to the Emergency Department on the above date and was hospitalized for further evaluation of their emergent condition. - New Patient This patient is new to me today: Yes Date on this admission: 05/29/17 - Critical Care Critical Care patient: No
[2017-05-29] MEDS: SODIUM CHLORIDE 1,000 ML IV SCH (17:13)
[2017-05-29] MEDS: CEFTRIAXONE 1 G/50 ML PREMIX 50 ML IVPB SCH (17:14)
--- NOTE | 2017-05-29 18:21 | PN ---
GI Progress Note Subjective: GI Note ( covering Dr Hester) : Got another unit of PRBCs last night No BMs today until now. The stool is now brown - Objective Vital Signs: Vital Signs Temperature 98 F 05/29/17 16:27 Pulse Rate 100 H 05/29/17 18:00 Respiratory Rate 18 05/29/17 18:00 Blood Pressure 132/70 05/29/17 18:00 O2 Sat by Pulse Oximetry (%) 100 05/28/17 20:59 Laboratory Tests 05/28/17 05/28/17 05/29/17 12:45 20:25 06:05 Hgb 8.5 L 7.6 L D 9.0 L D Constitutional: Calm ...Auscultate: Yes: Normoactive Bowel Sounds ...Palpate: Yes: Soft, Other (nontender) Labs: CBC, BMP 05/29/17 06:05 05/29/17 06:05 INR, PTT INR 1.15 (0.82-1.09) H 05/29/17 06:05 Problem List - Problems (1) Alcohol abuse Code(s): F10.10 - ALCOHOL ABUSE, UNCOMPLICATED (2) Anemia Code(s): D64.9 - ANEMIA, UNSPECIFIED Qualifiers: Anemia type: other cause Other causes of anemia: acute posthemorrhagic Qualified Code(s): D62 - Acute posthemorrhagic anemia (3) GIB (gastrointestinal bleeding) Assessment/Plan: The bleeding appears to be subsiding. Will stop PPI drip. Will try solid diet. Can transfer out of ICU. Code(s): K92.2 - GASTROINTESTINAL HEMORRHAGE, UNSPECIFIED Qualifiers: GI bleed type/associated pathology: unspecified gastrointestinal hemorrhage type Qualified Code(s): K92.2 - Gastrointestinal hemorrhage, unspecified
[2017-05-29] MEDS: MAG HYDROX/AL HYDROX/SIMETH 30 ML UNIT-DOSE CUP PO SCH (21:37)
[2017-05-29] MEDS: CHLORHEXIDINE GLUCONATE 4% CLEANSER FOR DECOLONIZATION TP SCH (21:38)
[2017-05-29] MEDS: PANTOPRAZOLE 40 MG TABLET (FP) PO SCH (21:38)
[2017-05-30] MEDS ORDERED: ONDANSETRON 4 MG/2 ML VIAL IVPUSH PRN (00:08)
[2017-05-30] MEDS: MAG HYDROX/AL HYDROX/SIMETH 30 ML UNIT-DOSE CUP PO SCH ×4 (00:53→17:24)
[2017-05-30] MEDS: chlordiazePOXIDE HCL 25 MG CAPSULE PO SCH ×2 (06:23→10:08)
[2017-05-30 07:42] LABS: HEMATOCRIT 28.5 % (35.4-49); HEMOGLOBIN 9.1 GM/dL (11.7-16.9); MCH 24.3 pg (25.7-33.7); MEAN CELL VOLUME 75.9 fl (80-96); MEAN PLT VOLUME 9.4 fl (7.5-11.1); PLATELET COUNT 87 K/MM3 (134-434); RBC 3.75 M/mm3 (4.00-5.60); RDW 24.6 % (11.9-15.9)
[2017-05-30 08:05] LABS: CHLORIDE 102 mmol/L (98-107); POTASSIUM 3.6 mmol/L (3.5-5.1); SODIUM 138 mmol/L (136-145)
[2017-05-30 08:13] LABS: ALBUMIN 3.4 g/dl (3.4-5.0); ALK PHOS 51 U/L (45-117); ANION GAP 12 (8-16); BILIRUBIN,TOTAL 0.7 mg/dL (0.2-1.0); BLOOD UREA NITROGEN 7 mg/dL (7-18); CALCIUM 8.5 mg/dL (8.5-10.1); CO2 24 mmol/L (21-32); CREATININE 0.3 mg/dL (0.7-1.3); GLUCOSE,RANDOM 102 mg/dL (74-106); MAGNESIUM 1.6 mg/dL (1.8-2.4); PHOSPHOROUS 3.8 mg/dL (2.5-4.9); SGOT/AST 50 U/L (15-37); SGPT/ALT 34 U/L (12-78); TOT PROT 6.3 g/dl (6.4-8.2)
[2017-05-30] MEDS ORDERED: MAGNESIUM OXIDE 400 MG TABLET (FP) PO ONE (09:34)
--- NOTE | 2017-05-30 09:47 | PN ---
Progress Note (short form) - Note Progress Note: Subjective: The patient was seen and examined at the bedside, he has complaints of painful urination today. He denies any abdominal pain Current Medications Generic Name Dose Route Start Last Admin Trade Name Freq PRN Reason Stop Dose Admin Al Hydroxide/Mg Hydroxide 30 ml 05/29/17 18:30 05/30/17 06:23 Mylanta Oral Suspension - PO 30 ml Q6HPO ALPA Administration Chlordiazepoxide HCl 25 mg 05/29/17 17:00 05/30/17 06:23 Librium - PO 05/30/17 11:01 25 mg [id number] ALPA Administration Chlordiazepoxide HCl 15 mg 05/30/17 17:00 Librium - PO 05/31/17 11:01 [id number] ALPA Chlordiazepoxide HCl 25 mg 05/28/17 14:16 Librium - PO 05/31/17 14:15 Q4H PRN WITHDRAWAL(CONT SUBST) Folic Acid 1 mg 05/30/17 10:00 Folic Acid - PO DAILY ALPA CEFTRIAXONE 1 G/50 ML PREMIX 50 mls @ 100 mls/hr 05/29/17 16:15 05/29/17 17: 14 Ceftriaxone 1 Gm-D5w Bag IVPB 100 mls/hr DAILY ALPA Administration Ondansetron HCl 4 mg 05/30/17 00:08 Zofran Injection IVPUSH Q6H PRN NAUSEA AND/OR VOMITING Pantoprazole Sodium 40 mg 05/29/17 22:00 05/29/17 21:38 Protonix - PO 40 mg BID ALPA Administration Sucralfate 1 gm 05/30/17 10:00 Carafate Oral Suspension - PO QID ALPA Thiamine HCl 100 mg 05/30/17 10:00 Vitamin B1 - PO DAILY [facility] Objective: Vital Signs Period Temp Pulse Resp BP Sys/Boykin Pulse Ox Last 24 Hr 97.7 F-98.4 F 88-100 18-18 100-132/64-80 Physical Exam: General: NAD, A&Ox3 Lungs: CTA bilaterally Heart: RRR, S1S2 Abd: Soft, non-tender, non-distended. Normoactive bowel sounds Ext: Warm, well-perfused. 2+ DP/PT bilaterally Neuro: CN 2-12 intact CBCD WBC 4.0 K/mm3 (4.0-10.0) 05/30/17 06:00 RBC 3.75 M/mm3 (4.00-5.60) L 05/30/17 06:00 Hgb 9.1 GM/dL (11.7-16.9) L 05/30/17 06:00 Hct 28.5 % (35.4-49) L 05/30/17 06:00 MCV 75.9 fl (80-96) L 05/30/17 06:00 MCHC 32.0 g/dl (32.0-35.9) 05/30/17 06:00 RDW 24.6 % (11.9-15.9) H 05/30/17 06:00 Plt Count 87 K/MM3 (134-434) L D 05/30/17 06:00 MPV 9.4 fl (7.5-11.1) 05/30/17 06:00 CMP Sodium 138 mmol/L (136-145) 05/30/17 06:00 Potassium 3.6 mmol/L (3.5-5.1) 05/30/17 06:00 Chloride 102 mmol/L (98-107) 05/30/17 06:00 Carbon Dioxide 24 mmol/L (21-32) 05/30/17 06:00 Anion Gap 12 (8-16) 05/30/17 06:00 BUN 7 mg/dL (7-18) 05/30/17 06:00 Creatinine 0.3 mg/dL (0.7-1.3) L 05/30/17 06:00 Creat Clearance w eGFR > 60 (>60) 05/30/17 06:00 Random Glucose 102 mg/dL (74-106) D 05/30/17 06:00 Calcium 8.5 mg/dL (8.5-10.1) 05/30/17 06:00 Total Bilirubin 0.7 mg/dL (0.2-1.0) D 05/30/17 06:00 AST 50 U/L (15-37) H D 05/30/17 06:00 ALT 34 U/L (12-78) D 05/30/17 06:00 Alkaline Phosphatase 51 U/L (45-117) 05/30/17 06:00 Total Protein 6.3 g/dl (6.4-8.2) L 05/30/17 06:00 Albumin 3.4 g/dl (3.4-5.0) 05/30/17 06:00 CARDIAC ENZYMES Creatine Kinase 293 IU/L (39-308) 05/26/17 11:55 Troponin I < 0.02 ng/ml (0.00-0.05) 05/26/17 11:55 Microbiology 05/26/17 16:12 Urine - Urine Clean Catch Urine Culture - Final Staphylococcus Aureus Assessment: This is a 52 year old male with PMHx of HTN, heavy alcohol use, Dieulafoy AVM, variceal bleeding, who presented to the ED with intoxication, bloody/coffee ground emesis. Plan: 1) GI: GI bleed - Denies vomiting, nausea, or dark stools - H/H stable - EGD with severe erosive, friable esophagitis and mild gastritis. F/u pathology results - Protonix gtt discontinued yesterday, Protonix 40mg po bid - Continue Carafate - Appreciate GI consult 2) ID: UTI - Patient reports painful urination - Staph aureus UTI - Continue Ceftriaxone 3) Psych: Chronic alcohol use - Continue Libirum taper - No evidence of alcohol withdrawal - Continue Thiamine - Continue folic acid 4) Cardiology: HTN - Continue to monitor BP 5) F/E/N: - Sodium controlled diet - Monitor electrolytes 6) Prophylaxis: - OOB ambulating - Hold all chemical DVT prophylaxis 2/2 GI bleed 7) Dispo: - Requires continued inpatient care CODE STATUS: FULL CODE Visit type - Emergency Visit Emergency Visit: Yes ED Registration Date: 05/26/17 Care time: The patient presented to the Emergency Department on the above date and was hospitalized for further evaluation of their emergent condition. - New Patient This patient is new to me today: No - Critical Care Critical Care patient: No
[2017-05-30] MEDS ORDERED: CEFTRIAXONE 1 G/50 ML PREMIX 50 ML IVPB SCH (10:00)
[2017-05-30] MEDS: SUCRALFATE 1 GM/10 ML UNIT DOSE CUPS PO SCH ×4 (10:08→22:09)
[2017-05-30] MEDS: FOLIC ACID 1 MG TABLET (FP) PO SCH (10:08)
[2017-05-30] MEDS: PANTOPRAZOLE 40 MG TABLET (FP) PO SCH ×2 (10:08→22:09)
[2017-05-30] MEDS: THIAMINE HCL 100 MG TABLET (FP) PO SCH (10:08)
[2017-05-30] MEDS: CEFTRIAXONE 1 G/50 ML PREMIX 50 ML IVPB SCH (10:08)
--- NOTE | 2017-05-30 10:29 | PN ---
Progress Note (short form) - Note Progress Note: PULMONARY VSS/AFEBRILE AWAKE/ALERT/WANTS TO GO HOME ANICTERIC CLEAR S1S2 BS+ NO EDEMA LABS/MEDS/NOTES REVIEWED NO OBVIOUS FURTHER BLEEDING NOTED (1) Alcohol abuse Code(s): F10.10 - ALCOHOL ABUSE, UNCOMPLICATED (2) GIB (gastrointestinal bleeding) Code(s): K92.2 - GASTROINTESTINAL HEMORRHAGE, UNSPECIFIED Qualifiers: GI bleed type/associated pathology: unspecified gastrointestinal hemorrhage type Qualified Code(s): K92.2 - Gastrointestinal hemorrhage, unspecified Follow H&H Normal transfusion thresholds PPI Carafate 1 gm po QID PO per GI Follow pathology results Monitor for withdrawal, JAYSON ARORA MD
[2017-05-30] MEDS ORDERED: SUCRALFATE 1 GM/10 ML UNIT DOSE CUPS PO SCH (14:00)
[2017-05-30] MEDS: chlordiazePOXIDE 5 MG CAPSULE PO SCH ×2 (17:24→22:10)
--- NOTE | 2017-05-30 20:49 | PN ---
GI Progress Note Subjective: GI NOte ( covering Dr Hester): Stool is brown. Bleeding has stopped. Hb stable. Tolerating solids - Objective Vital Signs: Vital Signs Temperature 98.2 F 05/30/17 20:00 Pulse Rate 93 H 05/30/17 20:00 Respiratory Rate 18 05/30/17 20:32 Blood Pressure 135/77 05/30/17 20:00 O2 Sat by Pulse Oximetry (%) 100 05/30/17 20:32 Constitutional: Calm ...Auscultate: Yes: Normoactive Bowel Sounds ...Palpate: Yes: Soft, Other (nontender) Labs: CBC, BMP 05/30/17 06:00 05/30/17 06:00 INR, PTT INR 1.15 (0.82-1.09) H 05/29/17 06:05 Assessment/Plan Oral PPI Dr Hester will return tomorrow Problem List - Problems (1) Alcohol abuse Code(s): F10.10 - ALCOHOL ABUSE, UNCOMPLICATED (2) Anemia Code(s): D64.9 - ANEMIA, UNSPECIFIED Qualifiers: Anemia type: other cause Other causes of anemia: acute posthemorrhagic Qualified Code(s): D62 - Acute posthemorrhagic anemia (3) GIB (gastrointestinal bleeding) Assessment/Plan: Resolved bleeding. Code(s): K92.2 - GASTROINTESTINAL HEMORRHAGE, UNSPECIFIED Qualifiers: GI bleed type/associated pathology: unspecified gastrointestinal hemorrhage type Qualified Code(s): K92.2 - Gastrointestinal hemorrhage, unspecified
[2017-05-31] MEDS: MAG HYDROX/AL HYDROX/SIMETH 30 ML UNIT-DOSE CUP PO SCH ×3 (01:36→12:21)
[2017-05-31 06:06] LABS: SERUM IRON SATURATION 7 % (15-55); TOTAL IRON BINDING CAPACITY 376 ug/dL (250-450); UIBC 349 ug/dL (111-343)
[2017-05-31] MEDS: chlordiazePOXIDE 5 MG CAPSULE PO SCH ×2 (06:11→11:00)
[2017-05-31 07:03] LABS: HEMATOCRIT 26.7 % (35.4-49); HEMOGLOBIN 8.4 GM/dL (11.7-16.9); MCH 24.3 pg (25.7-33.7); MCHC 31.6 g/dl (32.0-35.9); MEAN CELL VOLUME 76.9 fl (80-96); MEAN PLT VOLUME 8.7 fl (7.5-11.1); PLATELET COUNT 96 K/MM3 (134-434); RBC 3.47 M/mm3 (4.00-5.60); RDW 25.9 % (11.9-15.9); WHITE BLOOD COUNT 3.8 K/mm3 (4.0-10.0)
[2017-05-31] MEDS ORDERED: FERROUS SO4 325 MG TABLET (FP) PO SCH (08:00)
[2017-05-31] MEDS: SUCRALFATE 1 GM/10 ML UNIT DOSE CUPS PO SCH ×2 (09:25→14:18)
[2017-05-31] MEDS: THIAMINE HCL 100 MG TABLET (FP) PO SCH (09:25)
[2017-05-31] MEDS: PANTOPRAZOLE 40 MG TABLET (FP) PO SCH (09:25)
[2017-05-31] MEDS: CEFTRIAXONE 1 G/50 ML PREMIX 50 ML IVPB SCH (09:26)
[2017-05-31] MEDS: FOLIC ACID 1 MG TABLET (FP) PO SCH (09:26)
--- NOTE | 2017-05-31 10:58 | PATH ---
Surgical Pathology Report Patient Name: DEBRA MATHEWS Med. Rec. #: [id number] /Age/Gender: 1965 (Age: 52) / M Account: [id number] Location: [facility] MED/SURG Taken: 05/27/2017 Received: 05/27/2017 Reported: 05/31/2017 Physicians: Bennett Hester M.D. Specimen(s) Received A: BX ANTRUM, BODY B: BX DISTAL ESOPHAGUS Clinical History Preoperative diagnosis: Upper GI bleed Postoperative diagnosis: Gastritis, esophagitis Final Diagnosis A. STOMACH, ANTRUM AND BODY, BIOPSY: GASTRIC ANTRAL AND FUNDIC MUCOSA WITH FOCAL HYPERPLASTIC CHANGES. IMMUNOSTAIN FOR H. PYLORI IS NEGATIVE. B. DISTAL ESOPHAGUS, BIOPSY: SQUAMOUS AND GASTRIC MUCOSA WITH CHRONIC INFLAMMATION NO INTESTINAL METAPLASIA IDENTIFIED (NO INGRAM'S IDENTIFIED). Electronically Signed Shawn Jordan M.D. Gross Description A. Received in formalin, labeled "antrum and body biopsy" are 2 champion, irregular portions of soft tissue averaging 0.3 cm. in greatest dimension. The specimens are submitted in toto in one cassette. B. Received in formalin, labeled "distal esophageal biopsy" are 2 champion, irregular portions of soft tissue averaging 0.3 cm. in greatest dimension. The specimens are submitted in toto in one cassette. 05/27/201705/27/2017
--- NOTE | 2017-05-31 11:11 | PN ---
Progress Note, Physician History of Present Illness: Chart reviewed No events overnight. Comfortable. Pathology results reviewed. - Current Medication List Current Medications: Active Medications Al Hydroxide/Mg Hydroxide (Mylanta Oral Suspension -) 30 ml PO Q6HPO [facility] Last Admin: 05/31/17 06:11 Dose: 30 ml Chlordiazepoxide HCl (Librium -) 25 mg PO Q4H PRN PRN Reason: WITHDRAWAL(CONT SUBST) Stop: 05/31/17 14:15 Ferrous Sulfate (Feosol -) 325 mg PO DAILY@0800 [facility] Last Admin: 05/31/17 08:30 Dose: 325 mg Folic Acid (Folic Acid -) 1 mg PO DAILY [facility] Last Admin: 05/31/17 09:26 Dose: 1 mg CEFTRIAXONE 1 G/50 ML PREMIX (Ceftriaxone 1 Gm-D5w Bag) 50 mls @ 100 mls/hr IVPB DAILY [facility] Last Admin: 05/31/17 09:26 Dose: 100 mls/hr Magnesium Oxide (Mag-Ox -) 400 mg PO ONCE ONE Stop: 05/31/17 12:01 Ondansetron HCl (Zofran Injection) 4 mg IVPUSH Q6H PRN PRN Reason: NAUSEA AND/OR VOMITING Pantoprazole Sodium (Protonix -) 40 mg PO BID [facility] Last Admin: 05/31/17 09:25 Dose: 40 mg Sucralfate (Carafate Oral Suspension -) 1 gm PO QID [facility] Last Admin: 05/31/17 09:25 Dose: 1 gm Thiamine HCl (Vitamin B1 -) 100 mg PO DAILY [facility] Last Admin: 05/31/17 09:25 Dose: 100 mg - Objective Vital Signs: Vital Signs Temperature 97.4 F L 05/31/17 08:00 Pulse Rate 82 05/31/17 08:00 Respiratory Rate 18 05/31/17 08:00 Blood Pressure 124/72 05/31/17 08:00 O2 Sat by Pulse Oximetry (%) 100 05/30/17 20:32 Constitutional: Yes: No Distress, Calm Cardiovascular: Yes: Regular Rate and Rhythm Respiratory: Yes: Regular, CTA Bilaterally Gastrointestinal: Yes: Soft. No: Ascites, Distention, Melena, Rectal Bleeding, Tenderness, Tenderness, Epigastrium, Tenderness, Rebound, Vomiting Neurological: Yes: Alert, Oriented. No: Asterixis, Tremors Labs: CBC, BMP 05/31/17 05:35 05/30/17 06:00 INR, PTT INR 1.15 (0.82-1.09) H 05/29/17 06:05 Laboratory Results - last 24 hr 05/26/17 05/29/17 05/31/17 11:55 06:05 05:35 WBC 3.8 L RBC 3.47 L Hgb 8.4 L Hct 26.7 L MCV 76.9 L MCH 24.3 L MCHC 31.6 L RDW 25.9 H Plt Count 96 L MPV 8.7 Iron 27 L TIBC 376 Iron Saturation 7 L Blood Type A POSITIVE Antibody Screen Negative Crossmatch See Detail Problem List - Problems (1) Alcohol abuse Code(s): F10.10 - ALCOHOL ABUSE, UNCOMPLICATED (2) GIB (gastrointestinal bleeding) Code(s): K92.2 - GASTROINTESTINAL HEMORRHAGE, UNSPECIFIED Qualifiers: GI bleed type/associated pathology: unspecified gastrointestinal hemorrhage type Qualified Code(s): K92.2 - Gastrointestinal hemorrhage, unspecified Assessment/Plan PPI PO Liquid carafate 1 gm po qid Advance diet as tolerated Pathology results reviewed. No H. pylori, or significant pathology
[2017-05-31] MEDS ORDERED: MAGNESIUM OXIDE 400 MG TABLET (FP) PO ONE (12:00)
[2017-05-31 12:20] VITALS: PULSE 92
--- NOTE | 2017-05-31 14:19 | DS ---
Physical Examination Vital Signs: Vital Signs Temperature 97.4 F L 05/31/17 08:00 Pulse Rate 92 H 05/31/17 12:00 Respiratory Rate 18 05/31/17 12:00 Blood Pressure 120/69 05/31/17 12:00 O2 Sat by Pulse Oximetry (%) 100 05/31/17 09:00 Labs: CBC, BMP 05/31/17 05:35 05/30/17 06:00 Discharge Summary Reason For Visit: ALCOHOL ABUSE,GI BLEED,ANEMIA Current Active Problems Alcohol abuse (Acute) Anemia (Acute) GIB (gastrointestinal bleeding) (Acute) Tachycardia (Acute) Hospital Course: Spoke to cher Angel for discharge with follow-up as outpatient Condition: Improved - Instructions Diet, Activity, Other Instructions: Please return to the ED with new, persistent, or worsening symptoms. Please follow-up with providers as indicated. Referrals: Bennett Hester MD [Staff Physician] - (Please follow-up with Dr. Hester within 1 week) Jackson Odom MD [Staff Physician] - 1 Week Disposition: HOME - Home Medications Comprehensive Discharge Medication List: Ambulatory Orders Cefuroxime Axetil [Ceftin -] 500 mg PO Q12H #8 tablet 05/31/17 Ferrous Sulfate [Feosol] 325 mg PO DAILY@0800 #30 tab 05/31/17 Folic Acid - 1 mg PO DAILY #30 tablet 05/31/17 Pantoprazole Sodium [Protonix -] 40 mg PO BID #40 tablet.ec 05/31/17 Sucralfate Oral Suspension [Carafate Oral Suspension -] 1 gm PO QID #600 ml 07/17 Thiamine HCl [Vitamin B1 -] 100 mg PO DAILY #30 tablet 05/31/17 - Discharge Referral Referred to [facility] Med P.C.: No
[2017-05-31 14:57] VITALS: BP 124/68; TEMP 97.9
[2017-06-03 08:06] LABS: ALPHA 2 MACROGLOBULINS,QN 166 mg/dL (110-276); ALT(SGPT)P5P 20 IU/L (0-55); CHOLESTEROL TOTAL 143 mg/dL (100-199); FIBROSIS SCORE- 0.31 (0.00-0.21); GGT= 65 IU/L (0-65); GLUCOSE SERUM 91 mg/dL (65-99); HEIGHT. 66 Inches (.); WEIGHT. 169 LBS (.)
[2017-06-04 00:06] LABS: HBSAG SCREEN Negative (Negative); HEP A AB, IGM Negative (Negative); HEP B CORE AB, TOT Negative (Negative)
== END 2017-05-31 15:02 | disposition home or self-care (01) | DRG 241 ==
LOC: JER 10:49 → EDBD 13:39 → JERBED 13:39 → J4S 23:05 → JICU 05-27 09:11 → J7W 05-29 20:29
PROVIDERS: ADMIT Internal Medicine; ATTEND Registered Nurse
PROC: HZ2ZZZZ Detoxification Services for Substance Abuse Treatment (ICD-10-PCS; principal; 2017-05-26 18:00)
PROC: 30233K1 Transfusion of Nonautologous Frozen Plasma into Peripheral Vein, Percutaneous Approach (ICD-10-PCS; 2017-05-27)
PROC: 30233N1 Transfusion of Nonautologous Red Blood Cells into Peripheral Vein, Percutaneous Approach (ICD-10-PCS; 2017-05-27)
PROC: 30233R1 Transfusion of Nonautologous Platelets into Peripheral Vein, Percutaneous Approach (ICD-10-PCS; 2017-05-27)
PROC: 0DJ08ZZ Inspection of Upper Intestinal Tract, Via Natural or Artificial Opening Endoscopic (ICD-10-PCS; 2017-05-27)
DX: K29.01 Acute gastritis with bleeding (principal); K22.11 Ulcer of esophagus with bleeding; D62 Acute posthemorrhagic anemia; N39.0 Urinary tract infection, site not specified; I10 Essential (primary) hypertension; R00.0 Tachycardia, unspecified; F10.239 Alcohol dependence with withdrawal, unspecified; Y90.8 Blood alcohol level of 240 mg/100 ml or more; Q27.39 Arteriovenous malformation, other site; R10.13 Epigastric pain; B95.61 Methicillin susceptible Staphylococcus aureus infection as the cause of diseases classified elsewhere; R41.9 Unspecified symptoms and signs involving cognitive functions and awareness
CPT/HCPCS: 36415; 36430; 36511; 71010-TC; 80048; 80053; 80076; 80307; 81003; 81015; 82105; 82272; 82550; 82553; 82728; 83540; 83550; 83605; 83690; 83735; 84100; 84484; 85025; 85027; 85610; 85730; 86704; 86706; 86708; 86803; 86850; 86900; 86901; 86922; 87086; 87186; 87340; 88305-TC; 93005; 93010; 94760; 99284-25; P9017; P9034; P9038; P9058

== ENCOUNTER 2017-07-14 13:36 | Inpatient (IN) | payer OTHER ==
[2017-07-14] MEDS ORDERED: PANTOPRAZOLE SODIUM 40 MG VIAL IVPUSH ONE (14:12)
[2017-07-14] MEDS ORDERED: OCTREOTIDE ACETATE 50 MCG/1 ML - 1 ML VIAL IVPUSH ONE (14:14)
[2017-07-14] MEDS ORDERED: CEFTRIAXONE 1 GM in DEXTROSE 5%-WATER - 50 ML IVPB ONE (14:15)
[2017-07-14] MEDS ORDERED: OCTREOTIDE ACETATE 1,200 MCG in DEXTROSE 5%-WATER - 488 ML IVPB SCH (14:15)
[2017-07-14] MEDS ORDERED: METOCLOPRAMIDE HCL INJECTION 10 MG/2 ML VIAL IVPUSH ONE (14:15)
[2017-07-14] MEDS ORDERED: PANTOPRAZOLE SODIUM 80 MG in SODIUM CHLORIDE 100 ML IVPB SCH (14:15)
[2017-07-14 14:22] LABS: BASO % 0.9 % (0-2.0); HEMATOCRIT 48.1 % (35.4-49); LYMPH % 15.1 % (8-40); MCH 25.4 pg (25.7-33.7); MCHC 31.1 g/dl (32.0-35.9); MEAN CELL VOLUME 81.5 fl (80-96); MEAN PLT VOLUME 8.5 fl (7.5-11.1); PLATELET COUNT 90 K/MM3 (134-434); RBC 5.91 M/mm3 (4.00-5.60); RDW 21.4 % (11.9-15.9); WHITE BLOOD COUNT 13.7 K/mm3 (4.0-10.0)
[2017-07-14] MEDS ORDERED: SODIUM CHLORIDE 1,000 ML IV SCH (14:30)
--- NOTE | 2017-07-14 14:35 | PDOC ---
Attending Attestation - Resident Resident Name: Sergio Lloyd - ED Attending Attestation I have performed the following: I have examined & evaluated the patient, The case was reviewed & discussed with the resident, I agree w/resident's findings & plan, Exceptions are as noted - HPI HPI: 07/14/17 15:02 A portion of this note was documented by scribe services under my direction. I have reviewed the details of the note, within reason, and agree with the documentation with the following case summary and management plan written by me. Patient treated in the ED. Nursing notes are reviewed and incorporated into the medical decision-making. Vital signs reviewed. Peripheral IV access obtained by the nurse, laboratory studies are drawn and sent, reviewed and interpreted by myself. Vital Signs Temp Pulse Resp BP Pulse Ox 98.0 F 139 H 22 137/95 93 L 07/14/17 13:54 07/14/17 13:54 07/14/17 13:54 07/14/17 13:54 07/14/17 13:54 53-year-old male with history of heavy alcohol use including drinking today, Dieulafoy AVM esophageal lesion, variceal bleed, HTN presents with hematemesis again. I had seen the patient for similar issues on his prior visit. For last 2 days, the patient has been having intermittent bouts of hematemesis and upper abdominal pain. Denies any fevers or chills. Reports feeling general malaise. Last drank alcohol today. Patient arrives to the ED and seen by us. He was noted to tachycardic and ill-appearing. We'll need to rule out upper GI bleed including AVM versus variceal bleed versus Jessica-Gimenez. Patient is ill-appearing and will require attention. Protonix bolus and drip and octreotide bolus and drip was initiated. 2 units appear BCs on hold. Patient was discussed with potential intubation and PRBC transfusion. Risks and benefits discussed. If needed, patient agrees for those treatments. We'll need to consult GI. Patient will likely need ICU admission. We 'll follow.
[2017-07-14 14:41] LABS: INR 1.09 (0.82-1.09); PROTHROMBIN TIME (PATIENT) 12.3 SEC (9.98-11.88)
[2017-07-14 14:44] LABS: ACTIVATED PTT 28.2 SECONDS (26.9-34.4)
[2017-07-14] MEDS ORDERED: METOCLOPRAMIDE HCL INJECTION 10 MG/2 ML VIAL ONE (14:45)
[2017-07-14] MEDS ORDERED: ONDANSETRON 4 MG/2 ML VIAL ONE (14:45)
[2017-07-14] MEDS ORDERED: PANTOPRAZOLE SODIUM 40 MG VIAL ONE (14:46)
[2017-07-14] MEDS ORDERED: ONDANSETRON 4 MG/2 ML VIAL IVPUSH ONE (14:47)
[2017-07-14 14:53] LABS: ALBUMIN 4.3 g/dl (3.4-5.0); ANION GAP 20 (8-16); BILIRUBIN,TOTAL 1.1 mg/dL (0.2-1.0); BLOOD UREA NITROGEN 21 mg/dL (7-18); CALCIUM 8.2 mg/dL (8.5-10.1); CHLORIDE 95 mmol/L (98-107); CO2 24 mmol/L (21-32); CREATININE 0.8 mg/dL (0.7-1.3); GLUCOSE,RANDOM 121 mg/dL (74-106); MAGNESIUM 2.2 mg/dL (1.8-2.4); PHOSPHOROUS 3.7 mg/dL (2.5-4.9); POTASSIUM 3.1 mmol/L (3.5-5.1); SGOT/AST 69 U/L (15-37); SGPT/ALT 65 U/L (12-78); SODIUM 139 mmol/L (136-145)
[2017-07-14 14:56] LABS: ALK PHOS 77 U/L (45-117); TOT PROT 8.7 g/dl (6.4-8.2)
--- NOTE | 2017-07-14 14:59 | PDOC ---
History of Present Illness - General Chief Complaint: Vomiting Blood Stated Complaint: HEAD PAIN Time Seen by Provider: 07/14/17 14:09 Past History - Past Medical History Allergies/Adverse Reactions: Allergies Allergy/AdvReac Type Severity Reaction Status Date / Time No Known Allergies Allergy Verified 07/14/17 13:54 Home Medications: Ambulatory Orders Cefuroxime Axetil [Ceftin -] 500 mg PO Q12H #8 tablet 05/31/17 Ferrous Sulfate [Feosol] 325 mg PO DAILY@0800 #30 tab 05/31/17 Folic Acid - 1 mg PO DAILY #30 tablet 05/31/17 Pantoprazole Sodium [Protonix -] 40 mg PO BID #40 tablet.ec 05/31/17 Sucralfate Oral Suspension [Carafate Oral Suspension -] 1 gm PO QID #600 ml 07/17 Thiamine HCl [Vitamin B1 -] 100 mg PO DAILY #30 tablet 05/31/17 Anemia: Yes (anemia) Asthma: No Cardiac Disorders: No COPD: No Diabetes: No GI Disorders: Yes (gastritis, GIB, Esophegeal variecs, Dieulafoy lesion) Disorders: No HTN: Yes Kidney Stones: No Seizures: No - Surgical History Abdominal Surgery: No Appendectomy: No Cardiac Surgery: No Cholecystectomy: No Lung Surgery: No Neurologic Surgery: No Orthopedic Surgery: No - Reproductive History Testicular Surgery: No - Immunization History Immunization Up to Date: No - Suicide/Smoking/Psychosocial Hx Smoking History: Never smoked Have you smoked in the past 12 months: No Number of Cigarettes Smoked Daily: 20 Information on smoking cessation initiated: No 'Breaking Loose' booklet given: 10/06/15 Hx Alcohol Use: No Drug/Substance Use Hx: No Substance Use Type: Alcohol Hx Substance Use Treatment: No *Physical Exam - Vital Signs Last Vital Signs Temp Pulse Resp BP Pulse Ox 98.0 F 139 H 22 137/95 93 L 07/14/17 13:54 07/14/17 13:54 07/14/17 13:54 07/14/17 13:54 07/14/17 13:54 ED Treatment Course - LABORATORY CBC & Chemistry Diagram: 07/14/17 14:10 07/14/17 14:10 - ADDITIONAL ORDERS Additional order review: Laboratory Results 07/14/17 14:10 PT with INR 12.30 H INR 1.09 PTT (Actin FS) 28.2 07/14/17 14:10 RBC 5.91 H D MCV 81.5 MCHC 31.1 L RDW 21.4 H D MPV 8.5 Neutrophils % 80.0 D Lymphocytes % 15.1 D Monocytes % 4.0 Eosinophils % 0.0 D Basophils % 0.9
--- NOTE | 2017-07-14 15:07 | PDOC ---
History of Present Illness - General History Source: Patient, Old Records Exam Limitations: No Limitations <Phillip Westfall - Last Filed: 07/14/17 16:01> - General History Source: Patient, Old Records Exam Limitations: No Limitations - History of Present Illness Initial Comments: 07/14/17 18:54 Patient is a 53 year old male with a significant past medical history of HTN, heavy alcohol use (last drank a bottle of Bacardi about an hour prior to arrival ), Dieulafoy AVM esophageal lesion, and variceal bleed who presents to the ED with complaints of bloody vomiting that began 2 days ago. As per family member , patient has been experiencing multiple episodes of bloody vomit as well as associated upper abdominal pain. Family reports patient's last alcohol drink was this morning. Denies chest pain, Sob. Denies fever, chills. Denies contact with sick individuals, out of state traveling. Denies trauma to affected area. Denies any other symptoms. Allergies: None Social history: Surgical History: PMD: None Reconciler: Dr. hester, Hot Car Operator: Dr. Davalos, Other: Dr. Puckett <Carlos Greenberg - Last Filed: 07/14/17 18:55> - General Chief Complaint: Vomiting Blood Stated Complaint: HEAD PAIN Time Seen by Provider: 07/14/17 14:09 Past History - Past Medical History Anemia: Yes (anemia) Asthma: No Cardiac Disorders: No COPD: No Diabetes: No GI Disorders: Yes (gastritis, GIB, Esophegeal variecs, Dieulafoy lesion) Disorders: No HTN: Yes Kidney Stones: No Seizures: No - Surgical History Abdominal Surgery: No Appendectomy: No Cardiac Surgery: No Cholecystectomy: No Lung Surgery: No Neurologic Surgery: No Orthopedic Surgery: No - Reproductive History Testicular Surgery: No - Immunization History Immunization Up to Date: No - Suicide/Smoking/Psychosocial Hx Smoking History: Never smoked Have you smoked in the past 12 months: No Number of Cigarettes Smoked Daily: 20 Information on smoking cessation initiated: No 'Breaking Loose' booklet given: 10/06/15 Hx Alcohol Use: No Drug/Substance Use Hx: No Substance Use Type: Alcohol Hx Substance Use Treatment: No <Phillip Westfall - Last Filed: 07/14/17 16:01> <Carlos Greenberg - Last Filed: 07/14/17 18:55> - Past Medical History Allergies/Adverse Reactions: Allergies Allergy/AdvReac Type Severity Reaction Status Date / Time No Known Allergies Allergy Verified 07/14/17 13:54 Home Medications: Ambulatory Orders Cefuroxime Axetil [Ceftin -] 500 mg PO Q12H #8 tablet 05/31/17 Ferrous Sulfate [Feosol] 325 mg PO DAILY@0800 #30 tab 05/31/17 Folic Acid - 1 mg PO DAILY #30 tablet 05/31/17 Pantoprazole Sodium [Protonix -] 40 mg PO BID #40 tablet.ec 05/31/17 Sucralfate Oral Suspension [Carafate Oral Suspension -] 1 gm PO QID #600 ml 07/17 Thiamine HCl [Vitamin B1 -] 100 mg PO DAILY #30 tablet 05/31/17 Review of Systems - Review of Systems Able to Perform ROS?: Yes Comments:: 07/14/17 18:55 GENERAL/CONSTITUTIONAL: No fever or chills. No weakness. HEAD, EYES, EARS, NOSE AND THROAT: No change in vision. No ear pain or discharge. No sore throat. CARDIOVASCULAR: No chest pain or shortness of breath. RESPIRATORY: No cough, wheezing, or hemoptysis. GASTROINTESTINAL: +Hematemesis. No diarrhea or constipation. GENITOURINARY: No dysuria, frequency, or change in urination. MUSCULOSKELETAL: No joint or muscle swelling or pain. No neck or back pain. SKIN: No rash NEUROLOGIC: No headache, vertigo, loss of consciousness, or change in strength/ sensation. ENDOCRINE: No increased thirst. No abnormal weight change. HEMATOLOGIC/LYMPHATIC: No anemia, easy bleeding, or history of blood clots. ALLERGIC/IMMUNOLOGIC: No hives or skin allergy. <Carlos Greenberg - Last Filed: 07/14/17 18:55> *Physical Exam - Vital Signs Last Vital Signs Temp Pulse Resp BP Pulse Ox 98.0 F 139 H 22 137/95 93 L 07/14/17 13:54 07/14/17 13:54 07/14/17 13:54 07/14/17 13:54 07/14/17 13:54 <Phillip Westfall - Last Filed: 07/14/17 16:01> - Vital Signs Last Vital Signs Temp Pulse Resp BP Pulse Ox 98.0 F 139 H 22 137/95 93 L 07/14/17 13:54 07/14/17 13:54 07/14/17 13:54 07/14/17 13:54 07/14/17 13:54 - Physical Exam Comments: 07/14/17 18:55 GENERAL: +ill appearing. Awake, alert, and fully oriented, in no acute distress HEAD: No signs of trauma EYES: PERRLA, EOMI, sclera anicteric, conjunctiva clear ENT: Auricles normal inspection, hearing grossly normal, nares patent, oropharynx clear without exudates. Moist mucosa NECK: Normal ROM, supple, no lymphadenopathy, JVD, or masses LUNGS: Breath sounds equal, clear to auscultation bilaterally. No wheezes, and no crackles HEART: +Tachycardic. Regular rate and rhythm, normal S1 and S2, no murmurs, rubs or gallops ABDOMEN: +Epigastric tenderness. Soft, nontender, normoactive bowel sounds. No guarding, no rebound. No masses EXTREMITIES: Normal range of motion, no edema. No clubbing or cyanosis. No cords, erythema, or tenderness NEUROLOGICAL: Cranial nerves II through XII grossly intact. Normal speech, normal gait SKIN: Jaundice? Warm, Dry, normal turgor, no rashes or lesions noted <Carlos Greenberg - Last Filed: 07/14/17 18:55> Heart Score/ECG Review #1 ECG reviewed & interpreted by me at: 14:15 07/14/17 15:07 NSR 117, no std/aruna, normal axis, normal intervals, QTC 477 msec <Phillip Westfall - Last Filed: 07/14/17 16:01> ED Treatment Course - LABORATORY CBC & Chemistry Diagram: 07/14/17 14:10 07/14/17 14:10 - ADDITIONAL ORDERS Additional order review: Laboratory Results 07/14/17 07/14/17 14:10 14:10 PT with INR 12.30 H INR 1.09 PTT (Actin FS) 28.2 Sodium 139 Potassium 3.1 L Chloride 95 L Carbon Dioxide 24 Anion Gap 20 H BUN 21 H D Creatinine 0.8 D Creat Clearance w eGFR > 60 Random Glucose 121 H Calcium 8.2 L Phosphorus 3.7 Magnesium 2.2 D Total Bilirubin 1.1 H D AST 69 H D ALT 65 D Alkaline Phosphatase 77 D Creatine Kinase 316 H Troponin I < 0.02 Total Protein 8.7 H D Albumin 4.3 D 07/14/17 14:10 RBC 5.91 H D MCV 81.5 MCHC 31.1 L RDW 21.4 H D MPV 8.5 Neutrophils % 80.0 D Lymphocytes % 15.1 D Monocytes % 4.0 Eosinophils % 0.0 D Basophils % 0.9 - RADIOLOGY Radiology Studies Ordered: Category Date Time Status CHEST X-RAY PORTABLE* [RAD] Stat Radiology 07/14/17 14:12 Taken - Medications Given in the ED: ED Medications Discontinued Medications Generic Name Dose Route Start Last Admin Trade Name Freq PRN Reason Stop Dose Admin Metoclopramide HCl 10 mg 07/14/17 14:15 07/14/17 15:00 Reglan Injection - IVPUSH 07/14/17 14:16 10 mg ONCE ONE Administration Ondansetron HCl 4 mg 07/14/17 14:47 07/14/17 15:00 Zofran Injection IVPUSH 07/14/17 14:48 4 mg ONCE ONE Administration Pantoprazole Sodium 80 mg 07/14/17 14:12 07/14/17 15:00 Protonix Iv IVPUSH 07/14/17 14:13 80 mg ONCE ONE Administration <Phillip Westfall - Last Filed: 07/14/17 16:01> - LABORATORY CBC & Chemistry Diagram: 07/14/17 14:10 07/14/17 14:10 - ADDITIONAL ORDERS Additional order review: Laboratory Results 07/14/17 07/14/17 07/14/17 15:04 14:10 14:10 PT with INR 12.30 H INR 1.09 PTT (Actin FS) 28.2 Sodium 139 Potassium 3.1 L Chloride 95 L Carbon Dioxide 24 Anion Gap 20 H BUN 21 H D Creatinine 0.8 D Creat Clearance w eGFR > 60 Random Glucose 121 H Calcium 8.2 L Phosphorus 3.7 Magnesium 2.2 D Total Bilirubin 1.1 H D AST 69 H D ALT 65 D Alkaline Phosphatase 77 D Creatine Kinase 316 H Creatine Kinase Index 0.4 CK-MB (CK-2) 1.463 Troponin I < 0.02 Total Protein 8.7 H D Albumin 4.3 D Blood Type A POSITIVE Antibody Screen Negative Crossmatch See Detail 07/14/17 14:10 RBC 5.91 H D MCV 81.5 MCHC 31.1 L RDW 21.4 H D MPV 8.5 Neutrophils % 80.0 D Lymphocytes % 15.1 D Monocytes % 4.0 Eosinophils % 0.0 D Basophils % 0.9 - Medications Given in the ED: ED Medications Discontinued Medications Generic Name Dose Route Start Last Admin Trade Name Hemant PRN Reason Stop Dose Admin Metoclopramide HCl 10 mg 07/14/17 14:15 07/14/17 15:00 Reglan Injection - IVPUSH 07/14/17 14:16 10 mg ONCE ONE Administration Ondansetron HCl 4 mg 07/14/17 14:47 07/14/17 15:00 Zofran Injection IVPUSH 07/14/17 14:48 4 mg ONCE ONE Administration Pantoprazole Sodium 80 mg 07/14/17 14:12 07/14/17 15:00 Protonix Iv IVPUSH 07/14/17 14:13 80 mg ONCE ONE Administration <Carlos Greenberg - Last Filed: 07/14/17 18:55> Medical Decision Making - Critical Care Time Total Critical Care Time (minutes): 45 Critical Care Statement: The care of this patient involved high complexity decision making to prevent further life threatening deterioration of the patient 's condition and/or to evaluate & treat vital organ system(s) failure or risk of failure. - Medical Decision Making 07/14/17 15:07 A portion of this note was documented by scribe services under my direction. I have reviewed the details of the note, within reason, and agree with the documentation with the following case summary and management plan written by me. Patient treated in the ED. Nursing notes are reviewed and incorporated into the medical decision-making. Vital signs reviewed. Peripheral IV access obtained by the nurse, laboratory studies are drawn and sent, reviewed and interpreted by myself. Vital Signs Temp Pulse Resp BP Pulse Ox 98.0 F 139 H 22 137/95 93 L 07/14/17 13:54 07/14/17 13:54 07/14/17 13:54 07/14/17 13:54 07/14/17 13:54 53-year-old male with history of heavy alcohol use including drinking today, Dieulafoy AVM esophageal lesion, variceal bleed, HTN presents with hematemesis again. I had seen the patient for similar issues on his prior visit. For last 2 days, the patient has been having intermittent bouts of hematemesis and upper abdominal pain. Denies any fevers or chills. Reports feeling general malaise. Last drank alcohol today. Patient arrives to the ED and seen by us. He was noted to tachycardic and ill-appearing. We'll need to rule out upper GI bleed including AVM versus variceal bleed versus Jessica-Gimenez. Patient is ill-appearing and will require attention. Protonix bolus and drip and octreotide bolus and drip was initiated. 2 units appear BCs on hold. Patient was discussed with potential intubation and PRBC transfusion. Risks and benefits discussed. If needed, patient agrees for those treatments. We'll need to consult GI. Patient will likely need ICU admission. We 'll follow. 07/14/17 16:03 CBC, BMP 07/14/17 14:10 07/14/17 14:10 CMP Sodium 139 mmol/L (136-145) 07/14/17 14:10 Potassium 3.1 mmol/L (3.5-5.1) L 07/14/17 14:10 Chloride 95 mmol/L (98-107) L 07/14/17 14:10 Carbon Dioxide 24 mmol/L (21-32) 07/14/17 14:10 Anion Gap 20 (8-16) H 07/14/17 14:10 BUN 21 mg/dL (7-18) H D 07/14/17 14:10 Creatinine 0.8 mg/dL (0.7-1.3) D 07/14/17 14:10 Creat Clearance w eGFR > 60 (>60) 07/14/17 14:10 Random Glucose 121 mg/dL (74-106) H 07/14/17 14:10 Lactic Acid 4.6 mmol/L (0.0-2.0) H* 07/14/17 14:10 Calcium 8.2 mg/dL (8.5-10.1) L 07/14/17 14:10 Phosphorus 3.7 mg/dL (2.5-4.9) 07/14/17 14:10 Magnesium 2.2 mg/dL (1.8-2.4) D 07/14/17 14:10 Total Bilirubin 1.1 mg/dL (0.2-1.0) H D 07/14/17 14:10 AST 69 U/L (15-37) H D 07/14/17 14:10 ALT 65 U/L (12-78) D 07/14/17 14:10 Alkaline Phosphatase 77 U/L (45-117) D 07/14/17 14:10 Ammonia 37.61 umol/L (11-32) H 07/14/17 15:04 Creatine Kinase 316 IU/L (39-308) H 07/14/17 14:10 Creatine Kinase Index 0.4 % (0.0-5.0) 07/14/17 14:10 CK-MB (CK-2) 1.463 ng/mL (0.5-3.6) 07/14/17 14:10 Troponin I < 0.02 ng/ml (0.00-0.05) 07/14/17 14:10 Total Protein 8.7 g/dl (6.4-8.2) H D 07/14/17 14:10 Albumin 4.3 g/dl (3.4-5.0) D 07/14/17 14:10 Chest xray reviewed. Hgb noted, otherwise maintaining mental status. Has had few episodes of small hematesis here. Dr. Bennett Hester was consulted, and he had seen the patient in the ED. At this moment, will hold off on transfusing. Case discussed with Dr. Davalos who accepts the patient to the ICU. Case discussed with [facility] hospitalist. Case discussed with [facility] hospitalist who accepts the patient. Case discussed in detail with admitting physician including history, physical exam and ancillary studies. Admitting physician has assumed care for the patient, will follow all pending diagnostics and will complete the evaluation and treatment. <Phillip Westfall - Last Filed: 07/14/17 16:01> - Medical Decision Making 07/14/17 15:23 Dr. Hester called @15:23pm. Awaiting call back. Dr. Hester returned call @15:27pm. Case discussed <Carlos Greenberg - Last Filed: 07/14/17 18:55> *DC/Admit/Observation/Transfer - Discharge Dispostion Admit: Yes <Phillip Westfall - Last Filed: 07/14/17 16:01> - Attestations Scribe Attestion: 07/14/17 18:55 Documentation prepared by Carlos Greenberg, acting as medical office secretary for Phillip Westfall MD, /DO. <Carlos Greenberg - Last Filed: 07/14/17 18:55> Diagnosis at time of Disposition: UGIB (upper gastrointestinal bleed) - Discharge Dispostion Condition at time of disposition: Guarded
[2017-07-14] MEDS ORDERED: CEFTRIAXONE 1 GM/50 ML BAG ONE (15:19)
[2017-07-14] MEDS ORDERED: PANTOPRAZOLE SODIUM 160 MG in DEXTROSE 5%-WATER - 290 ML IVPB SCH (15:30)
[2017-07-14] MEDS ORDERED: ETOMIDATE 20 MG/10 ML AMPUL IVPUSH ONE (16:44)
[2017-07-14] MEDS ORDERED: PHENYLEPHRINE HCL 10 MG/1 ML SINGLE DOSE VIAL ONE (16:44)
--- NOTE | 2017-07-14 16:48 | CON.GI ---
Consult Consult Specialty:: GI Reason for Consultation:: hematemesis - History of Present Illness History of Present Illness: Chart reviewed. Events. Test results noted. Mr Bustos is know to GI service from recent admission for the same. Intoxicated. In ED vastnessed to have one episode of hematemesis and coffee-ground vomiting. PER ED: 53-year-old male with history of heavy alcohol use including drinking today, Dieulafoy AVM esophageal lesion, variceal bleed, HTN presents with hematemesis again. I had seen the patient for similar issues on his prior visit. For last 2 days, the patient has been having intermittent bouts of hematemesis and upper abdominal pain. Denies any fevers or chills. Reports feeling general malaise. Last drank alcohol today. Patient arrives to the ED and seen by us. He was noted to tachycardic and ill-appearing. On exam, appears ill, but not in distress. Alerts and oriented. There is no abdominal, or chest pain, or tenderness. No subcutaneous emphysema on chest exam. No BMs x 2 days. No fever, chills, jaundice. Last full meal 2 days ago. NGT with 500 ml sterile water lavage returned clear, non-bilious liquid with specks of coffee-ground material. No fresh or old blood. Tachycardic with Hgb 15 g/dl - Past Medical History Gastrointestinal: Yes: GI Bleed Infectious Disease: Yes: Other (h/o TB treated 2008 per [facility] notes) Psych: Yes: Addictions (alcohol abuse) - Alcohol/Substance Use Hx Alcohol Use: No - Smoking History Smoking history: Never smoked Have you smoked in the past 12 months: No Aproximately how many cigarettes per day: 20 Home Medications - Allergies Allergies/Adverse Reactions: Allergies Allergy/AdvReac Type Severity Reaction Status Date / Time No Known Allergies Allergy Verified 07/14/17 13:54 - Home Medications Home Medications: Ambulatory Orders Cefuroxime Axetil [Ceftin -] 500 mg PO Q12H #8 tablet 05/31/17 Ferrous Sulfate [Feosol] 325 mg PO DAILY@0800 #30 tab 05/31/17 Folic Acid - 1 mg PO DAILY #30 tablet 05/31/17 Pantoprazole Sodium [Protonix -] 40 mg PO BID #40 tablet.ec 05/31/17 Sucralfate Oral Suspension [Carafate Oral Suspension -] 1 gm PO QID #600 ml 07/17 Thiamine HCl [Vitamin B1 -] 100 mg PO DAILY #30 tablet 05/31/17 Family Disease History - Family Disease History Family History: Unremarkable Review of Systems Findings/Remarks: as per HPI, H&P Physical Exam-GI Vital Signs: Vital Signs Temperature 98.0 F 07/14/17 13:54 Pulse Rate 120 H 07/14/17 16:40 Respiratory Rate 16 07/14/17 16:40 Blood Pressure 136/90 07/14/17 16:40 O2 Sat by Pulse Oximetry (%) 98 07/14/17 16:30 Constitutional: Yes: Poor Hygeine. No: No Distress Eyes: Yes: Conjunctiva Clear HENT: Yes: Normocephalic Neck: Yes: Supple, Trachea Midline Cardiovascular: Yes: Tachycardia Respiratory: Yes: Regular, CTA Bilaterally Gastrointestinal Inspection: Yes: Distention ...Palpate: Yes: Soft. No: Firm/Rigid, Guarding, Mass, Tenderness, Tenderness, Epigastium, Tenderness, Rebound ...Percussion: No: Fluid Wave Edema: No Neurological: Yes: Alert, Oriented. No: Asterixis, Confusion, Tremors Labs: CBC, BMP 07/14/17 14:10 07/14/17 14:10 INR, PTT INR 1.09 (0.82-1.09) 07/14/17 14:10 Laboratory Tests 07/14/17 07/14/17 07/14/17 14:10 14:10 14:10 WBC 13.7 H D RBC 5.91 H D Hgb 15.0 D Hct 48.1 D MCV 81.5 MCH 25.4 L MCHC 31.1 L RDW 21.4 H D Plt Count 90 L MPV 8.5 Neutrophils % 80.0 D Lymphocytes % 15.1 D Monocytes % 4.0 Eosinophils % 0.0 D Basophils % 0.9 PT with INR 12.30 H INR 1.09 PTT (Actin FS) 28.2 Sodium 139 Potassium 3.1 L Chloride 95 L Carbon Dioxide 24 Anion Gap 20 H BUN 21 H D Creatinine 0.8 D Creat Clearance w eGFR > 60 Random Glucose 121 H Lactic Acid Calcium 8.2 L Phosphorus 3.7 Magnesium 2.2 D Total Bilirubin 1.1 H D AST 69 H D ALT 65 D Alkaline Phosphatase 77 D Ammonia Creatine Kinase 316 H Creatine Kinase Index 0.4 CK-MB (CK-2) 1.463 Troponin I < 0.02 Total Protein 8.7 H D Albumin 4.3 D Alcohol, Quantitative Blood Type Antibody Screen Crossmatch Crossmatch IS Only 07/14/17 07/14/17 07/14/17 14:10 15:04 15:04 WBC RBC Hgb Hct MCV MCH MCHC RDW Plt Count MPV Neutrophils % Lymphocytes % Monocytes % Eosinophils % Basophils % PT with INR INR PTT (Actin FS) Sodium Potassium Chloride Carbon Dioxide Anion Gap BUN Creatinine Creat Clearance w eGFR Random Glucose Lactic Acid 4.6 H* Calcium Phosphorus Magnesium Total Bilirubin AST ALT Alkaline Phosphatase Ammonia 37.61 H Creatine Kinase Creatine Kinase Index CK-MB (CK-2) Troponin I Total Protein Albumin Alcohol, Quantitative Blood Type A POSITIVE Antibody Screen Negative Crossmatch See Detail Crossmatch IS Only See Detail 07/14/17 15:15 WBC RBC Hgb Hct MCV MCH MCHC RDW Plt Count MPV Neutrophils % Lymphocytes % Monocytes % Eosinophils % Basophils % PT with INR INR PTT (Actin FS) Sodium Potassium Chloride Carbon Dioxide Anion Gap BUN Creatinine Creat Clearance w eGFR Random Glucose Lactic Acid Calcium Phosphorus Magnesium Total Bilirubin AST ALT Alkaline Phosphatase Ammonia Creatine Kinase Creatine Kinase Index CK-MB (CK-2) Troponin I Total Protein Albumin Alcohol, Quantitative 351.7 H* Blood Type Antibody Screen Crossmatch Crossmatch IS Only Assessment/Plan Upper GI bleeding, intoxicated. An EGD revealed, again, severe esophagitis with mucosal bleeding in the distal 2 /3 with bleeding, superficial mucosal tears in distal 1/3. Blood in stomach was present and suctioned out, no obvious lesion noted in the stomach or proximal small bowel. CXR Continue PPI Carafate po qid US abdomen to assess for ascites ETOH withdrawal protocol Monitor electrolytes and replete as needed monitor for continued bleeding ICU 24 hr PT/INR, CBC, CMP, in am
[2017-07-14] MEDS ORDERED: EPINEPHrine/PF 1 MG/1 ML (1:1,000) AMPULE ONE (16:57)
--- NOTE | 2017-07-14 17:25 | PROC ---
Endoscopy Procedure Endoscopy procedure completed. Please see scanned procedure report.
[2017-07-14] MEDS ORDERED: morphine CARPU-JECT 2 MG/1 ML DISP.SYRIN IVPUSH PRN (18:57)
[2017-07-14] MEDS ORDERED: chlordiazePOXIDE HCL 25 MG CAPSULE PO PRN (19:04)
[2017-07-14] MEDS: SODIUM CHLORIDE 1,000 ML IV SCH ×2 (19:45→21:15)
[2017-07-14 20:59] VITALS: BMI 28.4
[2017-07-14 21:01] LABS: HEMATOCRIT 38.2 % (35.4-49); HEMOGLOBIN 12.2 GM/dL (11.7-16.9); MCH 26.2 pg (25.7-33.7); MEAN CELL VOLUME 81.8 fl (80-96); MEAN PLT VOLUME 8.9 fl (7.5-11.1); PLATELET COUNT 68 K/MM3 (134-434); RBC 4.67 M/mm3 (4.00-5.60); RDW 20.7 % (11.9-15.9); WHITE BLOOD COUNT 9.6 K/mm3 (4.0-10.0)
[2017-07-14] MEDS: SUCRALFATE 1 GM/10 ML UNIT DOSE CUPS PO SCH (21:15)
[2017-07-14] MEDS ORDERED: ACETAMINOPHEN 1000 MG/100 ML VIAL (NON FORMULARY) IVPB ONE (21:27)
--- NOTE | 2017-07-14 21:36 | HP ---
CHIEF COMPLAINT:hemetemsis PCP:none HISTORY OF PRESENT ILLNESS: 53yo M with PMH continuous ETOH abuse, HTN, dieulafoy lesion and variceeal bleeding presented to ER after 2 episodes of hemetemsis at home. episodes assoc with abdomainl pain. currently also complaining of nausea and PAREDES with diaphoresis. last drink was this AM and drank a whole bottle of hard liquor. states he has had DTs in the past but never withdrawal seizure. claims medications complaince. denies CP, SOB, fever, chills, V/C/D, melena, BRBPR , auditory/visual/tactile hallucinations ER course was notable for: (1) NGT placement with cold water lavage with non bilious liquid with specs of blood (2) EGD (3) Recent Travel:denies PAST MEDICAL HISTORY:as above PAST SURGICAL HISTORY:Distal esophagus AVM clipping 02/15/17 Social History: Smoking:denies Alcohol: heavy drinking hard liquor Drugs: denies Family History:no medical problems Allergies No Known Allergies Allergy (Verified 07/14/17 13:54) HOME MEDICATIONS: Home Medications Medication Instructions Recorded Cefuroxime Axetil [Ceftin -] 500 mg PO Q12H #8 tablet 05/31/17 Ferrous Sulfate [Feosol] 325 mg PO DAILY@0800 #30 tab 05/31/17 Folic Acid - 1 mg PO DAILY #30 tablet 05/31/17 Pantoprazole Sodium [Protonix -] 40 mg PO BID #40 tablet.ec 05/31/17 Sucralfate Oral Suspension 1 gm PO QID #600 ml 05/31/17 [Carafate Oral Suspension -] Thiamine HCl [Vitamin B1 -] 100 mg PO DAILY #30 tablet 05/31/17 REVIEW OF SYSTEMS CONSTITUTIONAL: Absent: fever, chills, diaphoresis, generalized weakness, malaise, loss of appetite, weight change HEENT: PAREDES Absent: rhinorrhea, nasal congestion, throat pain, throat swelling, difficulty swallowing, mouth swelling, ear pain, eye pain, visual changes CARDIOVASCULAR: Absent: chest pain, syncope, palpitations, irregular heart rate, lightheadedness , peripheral edema RESPIRATORY: Absent: cough, shortness of breath, dyspnea with exertion, orthopnea, wheezing, stridor, hemoptysis GASTROINTESTINAL:vomiting,abdominal pain, Absent: abdominal distension, nausea, , diarrhea, constipation, melena, hematochezia GENITOURINARY: Absent: dysuria, frequency, urgency, hesitancy, hematuria, flank pain, genital pain MUSCULOSKELETAL: Absent: myalgia, arthralgia, joint swelling, back pain, neck pain SKIN: Absent: rash, itching, pallor HEMATOLOGIC/IMMUNOLOGIC: Absent: easy bleeding, easy bruising, lymphadenopathy, frequent infections ENDOCRINE: Absent: unexplained weight gain, unexplained weight loss, heat intolerance, cold intolerance NEUROLOGIC: Absent: headache, focal weakness or paresthesias, dizziness, unsteady gait, seizure, mental status changes, bladder or bowel incontinence PSYCHIATRIC: Absent: anxiety, depression, suicidal or homicidal ideation, hallucinations. PHYSICAL EXAMINATION Vital Signs - 24 hr 07/14/17 07/14/17 07/14/17 13:54 14:17 15:25 Temperature 98.0 F Pulse Rate 139 H Pulse Rate [ 120 H 119 H Apical] Respiratory 22 22 20 Rate Blood Pressure 137/95 Blood Pressure 125/105 113/101 [Left Arm] O2 Sat by Pulse 93 L 97 97 Oximetry (%) 07/14/17 07/14/17 07/14/17 16:30 16:40 17:31 Temperature 98.8 F Pulse Rate 120 H 124 H Pulse Rate [ 120 H Apical] Respiratory 16 16 16 Rate Blood Pressure 136/90 151/89 Blood Pressure 136/90 [Left Arm] O2 Sat by Pulse 98 99 Oximetry (%) 07/14/17 07/14/17 07/14/17 17:45 18:00 18:15 Temperature Pulse Rate 119 H 110 H 110 H Pulse Rate [ Apical] Respiratory 16 14 14 Rate Blood Pressure 149/88 145/88 140/83 Blood Pressure [Left Arm] O2 Sat by Pulse 98 100 98 Oximetry (%) 07/14/17 07/14/17 07/14/17 18:30 18:45 19:00 Temperature Pulse Rate 117 H 120 H 119 H Pulse Rate [ Apical] Respiratory 18 16 16 Rate Blood Pressure 117/75 127/68 117/80 Blood Pressure [Left Arm] O2 Sat by Pulse 98 96 96 Oximetry (%) 07/14/17 07/14/17 07/14/17 19:15 19:30 19:45 Temperature 99.2 F Pulse Rate 116 H 110 H 120 H Pulse Rate [ Apical] Respiratory 16 16 20 Rate Blood Pressure 150/56 142/79 130/84 Blood Pressure [Left Arm] O2 Sat by Pulse 96 99 Oximetry (%) 07/14/17 20:15 Temperature 98 F Pulse Rate 109 H Pulse Rate [ Apical] Respiratory 20 Rate Blood Pressure 137/77 Blood Pressure [Left Arm] O2 Sat by Pulse Oximetry (%) GENERAL: Awake, alert, and fully oriented, mild distress, diaphoresis HEAD: Normal with no signs of trauma. EYES: Pupils equal, round and reactive to light, extraocular movements intact, sclera anicteric, conjunctiva clear. No lid lag. EARS, NOSE, THROAT: Ears normal, nares patent, oropharynx clear without exudates. Moist mucous membranes. NECK: Normal range of motion, supple without lymphadenopathy, JVD, or masses. LUNGS: Breath sounds equal, clear to auscultation bilaterally. No wheezes, and no crackles. No accessory muscle use. HEART: tachycardic normal S1 and S2 without murmur, rub or gallop. ABDOMEN: Soft, nontender, +distended +fluid wave. unable to palpate liver or spleen. , normoactive bowel sounds, no guarding, no rebound, no masses. MUSCULOSKELETAL: Normal range of motion at all joints. No bony deformities or tenderness. No CVA tenderness. UPPER EXTREMITIES: 2+ pulses, warm, well-perfused. No cyanosis. No clubbing. No peripheral edema. +tremor on outstretched hand LOWER EXTREMITIES: 2+ pulses, warm, well-perfused. No calf tenderness. No peripheral edema. NEUROLOGICAL: Cranial nerves II-XII intact. Normal speech. PSYCHIATRIC: Cooperative. Good eye contact. Appropriate mood and affect. Laboratory Results - last 24 hr 07/14/17 07/14/17 07/14/17 14:10 14:10 14:10 WBC 13.7 H D RBC 5.91 H D Hgb 15.0 D Hct 48.1 D MCV 81.5 MCH 25.4 L MCHC 31.1 L RDW 21.4 H D Plt Count 90 L MPV 8.5 Neutrophils % 80.0 D Lymphocytes % 15.1 D Monocytes % 4.0 Eosinophils % 0.0 D Basophils % 0.9 PT with INR 12.30 H INR 1.09 PTT (Actin FS) 28.2 Sodium 139 Potassium 3.1 L Chloride 95 L Carbon Dioxide 24 Anion Gap 20 H BUN 21 H D Creatinine 0.8 D Creat Clearance w eGFR > 60 Random Glucose 121 H Lactic Acid Calcium 8.2 L Phosphorus 3.7 Magnesium 2.2 D Total Bilirubin 1.1 H D AST 69 H D ALT 65 D Alkaline Phosphatase 77 D Ammonia Creatine Kinase 316 H Creatine Kinase Index 0.4 CK-MB (CK-2) 1.463 Troponin I < 0.02 Total Protein 8.7 H D Albumin 4.3 D Alcohol, Quantitative Blood Type Antibody Screen Crossmatch Crossmatch IS Only 07/14/17 07/14/17 07/14/17 14:10 15:04 15:04 WBC RBC Hgb Hct MCV MCH MCHC RDW Plt Count MPV Neutrophils % Lymphocytes % Monocytes % Eosinophils % Basophils % PT with INR INR PTT (Actin FS) Sodium Potassium Chloride Carbon Dioxide Anion Gap BUN Creatinine Creat Clearance w eGFR Random Glucose Lactic Acid 4.6 H* Calcium Phosphorus Magnesium Total Bilirubin AST ALT Alkaline Phosphatase Ammonia 37.61 H Creatine Kinase Creatine Kinase Index CK-MB (CK-2) Troponin I Total Protein Albumin Alcohol, Quantitative Blood Type A POSITIVE Antibody Screen Negative Crossmatch See Detail Crossmatch IS Only See Detail 07/14/17 07/14/17 15:15 19:50 WBC 9.6 RBC 4.67 D Hgb 12.2 D Hct 38.2 D MCV 81.8 MCH 26.2 MCHC 32.0 RDW 20.7 H Plt Count 68 L D MPV 8.9 Neutrophils % Lymphocytes % Monocytes % Eosinophils % Basophils % PT with INR INR PTT (Actin FS) Sodium Potassium Chloride Carbon Dioxide Anion Gap BUN Creatinine Creat Clearance w eGFR Random Glucose Lactic Acid Calcium Phosphorus Magnesium Total Bilirubin AST ALT Alkaline Phosphatase Ammonia Creatine Kinase Creatine Kinase Index CK-MB (CK-2) Troponin I Total Protein Albumin Alcohol, Quantitative 351.7 H* Blood Type Antibody Screen Crossmatch Crossmatch IS Only ASSESSMENT/PLAN: 53yo M with PMH continuous ETOH abuse, HTN, dieulafoy lesion and variceeal bleeding presented to ER after 2 episodes of hemetemsis 1. Hemetemesis- medicine admission. no repeated episodes of bleeding. gastric lavage essential no blood. underwent EGD today. T&S. stat repeat labs. trend Hgb Q6H, IVF, PPI, NPO, Gi on board. 2. Abdominal distention- u/s ordered to evaluate for ascites. low concern for SBP 3. ETOH withdrawal-CIWA 8. started on libirum protocol. not interested in inpatient rehab at this time. give banana bag. counselled on side effects iwth continued drinking. 4. Hypokalemia- repeat labs. will replete if needed 5. AGMA -due to lactic acidosis- repeat 6. Transaminitis- elevated AST. likely due to drinking. trend for now. u/s pending 7. thrombocytopenia- due to ETOH. repeat labs. consider transfusing platelets if still actively bleeding. 8. HTN- not on medications at home. will monitor for now. consider starting if becomes uncontrolled 9. Tachycardia- liekly due to bleeding as well as ETOH withdrawals. cont with IVF. 10. DVT ppx- SCD. hold pharmacologic anticoagulation. Visit type - Emergency Visit Emergency Visit: Yes ED Registration Date: 07/14/17 Care time: The patient presented to the Emergency Department on the above date and was hospitalized for further evaluation of their emergent condition. - New Patient This patient is new to me today: Yes Date on this admission: 07/14/17 - Critical Care Critical Care patient: No
[2017-07-14] MEDS ORDERED: PANTOPRAZOLE SODIUM 40 MG VIAL IVPUSH SCH (22:00)
[2017-07-14] MEDS ORDERED: PANTOPRAZOLE 40 MG TABLET (FP) PO SCH (22:00)
[2017-07-14 22:07] LABS: ANION GAP 14 (8-16); BLOOD UREA NITROGEN 15 mg/dL (7-18); CHLORIDE 102 mmol/L (98-107); CO2 24 mmol/L (21-32); CREATININE 0.5 mg/dL (0.7-1.3); GLUCOSE,RANDOM 105 mg/dL (74-106); POTASSIUM 3.5 mmol/L (3.5-5.1); SODIUM 140 mmol/L (136-145)
[2017-07-14 22:13] LABS: CALCIUM 6.8 mg/dL (8.5-10.1)
[2017-07-14] MEDS: chlordiazePOXIDE HCL 25 MG CAPSULE PO SCH (22:35)
[2017-07-14] MEDS ORDERED: FOLIC ACID INJECTION - 1 MG, THIAMINE HCL 100 MG, MULTIVIT INJECTION ADULT 10 ML in SOD... IVPB ONE (23:41)
[2017-07-15] MEDS: MORPHINE SULFATE 10 MG/1 ML *VIAL IVPUSH PRN ×2 (01:50→06:25)
[2017-07-15] MEDS: chlordiazePOXIDE HCL 25 MG CAPSULE PO SCH ×4 (05:45→22:58)
[2017-07-15 08:03] LABS: INR 1.2 (0.82-1.09); PROTHROMBIN TIME (PATIENT) 13.6 SEC (9.98-11.88)
[2017-07-15 08:04] LABS: CHLORIDE 102 mmol/L (98-107); POTASSIUM 3.1 mmol/L (3.5-5.1); SODIUM 141 mmol/L (136-145)
[2017-07-15 08:15] LABS: ALBUMIN 3.5 g/dl (3.4-5.0); ALK PHOS 60 U/L (45-117); ANION GAP 15 (8-16); BILIRUBIN,DIRECT 0.3 mg/dL (0.0-0.2); BLOOD UREA NITROGEN 10 mg/dL (7-18); CO2 24 mmol/L (21-32); CREATININE 0.4 mg/dL (0.7-1.3); GLUCOSE,RANDOM 87 mg/dL (74-106); SGOT/AST 46 U/L (15-37); SGPT/ALT 43 U/L (12-78); TOT PROT 6.9 g/dl (6.4-8.2)
[2017-07-15 08:22] LABS: BASO % 0.5 % (0-2.0); HEMATOCRIT 38.5 % (35.4-49); HEMOGLOBIN 11.9 GM/dL (11.7-16.9); LYMPH % 6.6 % (8-40); MCH 25.4 pg (25.7-33.7); MCHC 30.9 g/dl (32.0-35.9); MEAN CELL VOLUME 82.4 fl (80-96); MONO % 5.1 % (3.8-10.2); NEUT % 87.8 % (42.8-82.8); PLATELET COUNT 43 K/MM3 (134-434); RBC 4.67 M/mm3 (4.00-5.60); RDW 20.5 % (11.9-15.9); WHITE BLOOD COUNT 5.9 K/mm3 (4.0-10.0)
[2017-07-15 08:24] LABS: CALCIUM 6.8 mg/dL (8.5-10.1)
--- NOTE | 2017-07-15 09:15 | EKG ---
Test Reason : Blood Pressure : / mmHG Vent. Rate : 117 BPM Atrial Rate : 117 BPM P-R Int : 146 ms QRS Dur : 086 ms QT Int : 342 ms P-R-T Axes : 053 024 036 degrees QTc Int : 477 ms SINUS TACHYCARDIA OTHERWISE NORMAL ECG WHEN COMPARED WITH ECG OF 27-MAY-2017 11:11, NO SIGNIFICANT CHANGE WAS FOUND Confirmed by JUDITH SIU MD ([id number]) on 07/15/2017 9:15:34 AM Referred By: Confirmed By:JUDITH SIU MD
[2017-07-15] MEDS ORDERED: POTASSIUM CHLORIDE ORAL LIQUID 20 MEQ/15 ML PO ONE (09:26)
[2017-07-15] MEDS ORDERED: FOLIC ACID 1 MG TABLET (FP) PO SCH (10:00)
[2017-07-15] MEDS ORDERED: THIAMINE HCL 100 MG TABLET (FP) PO SCH (10:00)
[2017-07-15] MEDS ORDERED: CALCIUM (OYSTER SHELL) 500 MG TABLET (FP) PO SCH (10:00)
[2017-07-15] MEDS: SUCRALFATE 1 GM/10 ML UNIT DOSE CUPS PO SCH ×4 (10:05→21:39)
[2017-07-15] MEDS: SODIUM CHLORIDE 0.9%/KCL 20 MEQ/1,000 ML INFUS.BAG IV SCH ×2 (10:05→22:58)
[2017-07-15] MEDS: PANTOPRAZOLE SODIUM 40 MG VIAL IVPUSH SCH ×2 (10:06→21:39)
--- NOTE | 2017-07-15 10:23 | PN ---
GI Progress Note Subjective: No acute events No abdominal pain S/P EGD yesterday: severe esophagitis with oozing of blood in distal esophagus - Objective Vital Signs: Vital Signs Temperature 98.4 F 07/15/17 06:00 Pulse Rate 108 H 07/15/17 06:00 Respiratory Rate 20 07/15/17 06:00 Blood Pressure 146/80 07/15/17 06:00 O2 Sat by Pulse Oximetry (%) 97 07/14/17 21:00 Constitutional: Calm Eyes: No: Sclera Icterus Cardiovascular: Yes: Tachycardia. No: Murmur Respiratory: Yes: CTA Bilaterally Gastrointestinal Inspection: No: Distention ...Auscultate: Yes: Normoactive Bowel Sounds ...Palpate: No: Tenderness Edema: No (No LE edema) Neurological: Yes: Tremors (mildly tremulous b/l). No: Asterixis Labs: CBC, BMP 07/15/17 06:30 07/15/17 06:30 INR, PTT INR 1.20 (0.82-1.09) H 07/15/17 06:30 Hepatic Panel Total Bilirubin 1.0 mg/dL (0.2-1.0) 07/15/17 06:30 Direct Bilirubin 0.3 mg/dL (0.0-0.2) H 07/15/17 06:30 AST 46 U/L (15-37) H D 07/15/17 06:30 ALT 43 U/L (12-78) D 07/15/17 06:30 Alkaline Phosphatase 60 U/L (45-117) D 07/15/17 06:30 Albumin 3.5 g/dl (3.4-5.0) 07/15/17 06:30 Problem List - Problems (1) UGIB (upper gastrointestinal bleed) Assessment/Plan: Hematemesis suspected to be secondary to severe esophagitis Continue Carafate 2g QID for 1 week Continue Protonix 40mg once daily for 8 weeks Monitor for withdrawal Advised complete alcohol cessation Clear liquids and advance to fulls for dinner. If toleraitng PO without melena / overt bleeding continue to advance diet Follow-up w/ Dr. Hester in office Code(s): K92.2 - GASTROINTESTINAL HEMORRHAGE, UNSPECIFIED
[2017-07-15] MEDS: POTASSIUM CHLORIDE 10 MEQ in SODIUM CHLORIDE 100 ML IVPB SCH ×2 (11:20→12:39)
--- NOTE | 2017-07-15 12:03 | PN ---
Physical Exam: SUBJECTIVE: Patient seen and examined. He c/o PAREDES and abdominal pain. He denies vomiting and want to eat. OBJECTIVE: Vital Signs Period Temp Pulse Resp BP Sys/Boykin Pulse Ox Last 24 Hr 98 F-99.2 F 108-139 14-22 113-151/56-105 93-100 PE Neuro: alert, awake, cn 2-12intact, mild tremors, no tongue fasciculation PULM: CTAB CV: s1 s2 tachycardic Abd: Tenderness to palpation, abd soft Ext: no le edema Laboratory Results - last 24 hr 07/14/17 07/15/17 07/15/17 19:50 06:30 06:30 WBC 5.9 D RBC 4.67 Hgb 11.9 Hct 38.5 MCV 82.4 MCH 25.4 L MCHC 30.9 L RDW 20.5 H Plt Count 43 L D MPV 9.0 Neutrophils % 87.8 H Lymphocytes % 6.6 L D Monocytes % 5.1 Eosinophils % 0.0 Basophils % 0.5 PT with INR 13.60 H INR 1.20 H PTT (Actin FS) Sodium Potassium Chloride Carbon Dioxide Anion Gap BUN Creatinine Creat Clearance w eGFR Random Glucose Lactic Acid 3.2 H* Calcium Phosphorus Magnesium Total Bilirubin Direct Bilirubin AST ALT Alkaline Phosphatase Ammonia Creatine Kinase Creatine Kinase Index CK-MB (CK-2) Troponin I Total Protein Albumin Alcohol, Quantitative Blood Type Antibody Screen Crossmatch Crossmatch IS Only 07/15/17 07/15/17 06:30 09:55 WBC RBC Hgb Hct MCV MCH MCHC RDW Plt Count MPV Neutrophils % Lymphocytes % Monocytes % Eosinophils % Basophils % PT with INR INR PTT (Actin FS) Sodium 141 Potassium 3.1 L Chloride 102 Carbon Dioxide 24 Anion Gap 15 BUN 10 D Creatinine 0.4 L Creat Clearance w eGFR > 60 Random Glucose 87 Lactic Acid 1.8 Calcium 6.8 L* Phosphorus Magnesium Total Bilirubin 1.0 Direct Bilirubin 0.3 H AST 46 H D ALT 43 D Alkaline Phosphatase 60 D Ammonia Creatine Kinase Creatine Kinase Index CK-MB (CK-2) Troponin I Total Protein 6.9 D Albumin 3.5 Alcohol, Quantitative Blood Type Antibody Screen Crossmatch Crossmatch IS Only Active Medications Generic Name Dose Route Start Last Admin Trade Name Freq PRN Reason Stop Dose Admin Calcium Carbonate 1,000 mg 07/15/17 10:00 07/15/17 10:07 Os-Darshan 500mg - PO 1,000 mg DAILY ALPA Administration Chlordiazepoxide HCl 50 mg 07/14/17 23:00 07/15/17 11:19 Librium - PO 07/15/17 17:01 50 mg [id number] ALPA Administration Chlordiazepoxide HCl 25 mg 07/15/17 23:00 Librium - PO 07/16/17 17:01 [id number] ALPA Chlordiazepoxide HCl 15 mg 07/16/17 23:00 Librium - PO 07/17/17 17:01 [id number] ALPA Chlordiazepoxide HCl 25 mg 07/14/17 19:04 Librium - PO 07/17/17 19:03 Q4H PRN WITHDRAWAL(CONT SUBST) Potassium Chloride/Sodium Chloride 20 meq in 1,000 mls @ 100 mls/hr 07/15/17 09:30 07/15/17 10:05 Ns+20 Meq Kcl - IV 100 mls/hr ASDIR ALPA Administration Morphine Sulfate 1 mg 07/14/17 19:16 07/15/17 06:25 Morphine Injection - IVPUSH 1 mg Q4H PRN Administration PAIN LEVEL 4 - 6 Pantoprazole Sodium 40 mg 07/15/17 10:00 07/15/17 10:06 Protonix Iv IVPUSH 40 mg BID ALPA Administration Sucralfate 1 gm 07/14/17 18:00 07/15/17 10:05 Carafate Oral Suspension - PO 1 gm QID ALPA Administration Assessment: 53 year old male with PMH continuous ETOH abuse, HTN, dieulafoy lesion and variceal bleeding admitted with hemetemsis sent to endoscopy for emergent EGD. Plan: 1. Hemetemesis - S/p EGD 07/14 showing severe esophagitis with oozing of blood in distal esophagus - Trial clears if tolerated can advance to fulls for dinner - Continue carafate 1gm qid x1 week - Continue protonix 40mg daily x 8 weeks - d.w GI 2. Abdominal distention - No ascites noted on US 3. ETOH abuse/tachycardia - Started librium detox - Dose not want rehab at this time - IVF 4. Hypokalemia - Change IVF ns w 20meq kcl with x2 riders - Caution with po kcl and recent esophagitis episode 5. AG Metabolic acidosis - Gap closed - Repeat lactic acid wnl 6. Transaminitis - AST down trended 7. HTN - Stable for now, no home meds - Consider Aldactone/nadalol due to previous esophageal bleeding, dose not appear to have been on prior 8. Thrombocytopenia - due to ETOH - Trend, no active bleeding - Hold chemical AC for DVT ppx Visit type - Emergency Visit Emergency Visit: Yes ED Registration Date: 07/14/17 Care time: The patient presented to the Emergency Department on the above date and was hospitalized for further evaluation of their emergent condition. - New Patient This patient is new to me today: Yes Date on this admission: 07/15/17 - Critical Care Critical Care patient: No
--- NOTE | 2017-07-15 15:22 | PN ---
Progress Note (short form) - Note Progress Note: Anesthesia Pt seen and examined S:Alert and awake O: Vital Signs Temperature 98.4 F 07/15/17 06:00 Pulse Rate 108 H 07/15/17 06:00 Respiratory Rate 20 07/15/17 06:00 Blood Pressure 146/80 07/15/17 06:00 O2 Sat by Pulse Oximetry (%) 97 07/14/17 21:00 CBC, BMP 07/15/17 06:30 07/15/17 06:30 A/P:s/p EGD Doing well post op Continue current care Brodie Cifuentes MD
[2017-07-15] MEDS: CALCIUM 500MG/VIT-D 200 UNITS COMBO TABLET (FP) PO SCH (21:39)
[2017-07-16] MEDS: MORPHINE SULFATE 10 MG/1 ML *VIAL IVPUSH PRN ×2 (04:10→15:40)
[2017-07-16] MEDS: chlordiazePOXIDE HCL 25 MG CAPSULE PO SCH ×3 (06:17→18:07)
[2017-07-16] MEDS ORDERED: INSULIN (NOVOLOG) ASPART 100 UNITS/ML 10ML VIAL ONE (06:49)
[2017-07-16] MEDS: SODIUM CHLORIDE 0.9%/KCL 20 MEQ/1,000 ML INFUS.BAG IV SCH ×2 (10:27→18:08)
[2017-07-16] MEDS: PANTOPRAZOLE SODIUM 40 MG VIAL IVPUSH SCH ×2 (10:28→22:04)
[2017-07-16] MEDS: SUCRALFATE 1 GM/10 ML UNIT DOSE CUPS PO SCH ×4 (10:28→22:04)
[2017-07-16] MEDS: CALCIUM 500MG/VIT-D 200 UNITS COMBO TABLET (FP) PO SCH ×2 (10:28→22:04)
[2017-07-16 11:15] LABS: INR 1.14 (0.82-1.09); PROTHROMBIN TIME (PATIENT) 12.9 SEC (9.98-11.88)
--- NOTE | 2017-07-16 17:23 | PN ---
Physical Exam: SUBJECTIVE: Patient seen and examined. Has mild abdominal pain. Denies anxiety, sweats, chills. OBJECTIVE: Vital Signs Period Temp Pulse Resp BP Sys/Boykin Pulse Ox Last 24 Hr 97.0 F-98.7 F 87-108 18-18 141-159/82-98 94-96 GENERAL/NEURO: The patient is awake, alert, and fully oriented, in no acute distress. Mild hand tremors, no asterixis. LUNGS: Breath sounds equal, clear to auscultation bilaterally, no wheezes, no crackles, no accessory muscle use. HEART: Regular rate and rhythm, S1, S2 ABDOMEN: Soft, nontender, nondistended, normoactive bowel sounds, no guarding, no rebound EXTREMITIES: 2+ pulses, warm, well-perfused, no edema. SKIN: Warm, dry, normal turgor Laboratory Results - last 24 hr 07/16/17 10:48 PT with INR 12.90 H INR 1.14 Active Medications Generic Name Dose Route Start Last Admin Trade Name Freq PRN Reason Stop Dose Admin Calcium Carbonate/Cholecalciferol 1 tab 07/15/17 22:00 07/16/17 10:28 Os-Darshan 500+D - PO 1 tab BID ALPA Administration Chlordiazepoxide HCl 15 mg 07/16/17 23:00 Librium - PO 07/17/17 17:01 [id number] ALPA Chlordiazepoxide HCl 25 mg 07/14/17 19:04 Librium - PO 07/17/17 19:03 Q4H PRN WITHDRAWAL(CONT SUBST) Potassium Chloride/Sodium Chloride 20 meq in 1,000 mls @ 100 mls/hr 07/15/17 09:30 07/16/17 10:27 Ns+20 Meq Kcl - IV 100 mls/hr ASDIR ALPA Administration Morphine Sulfate 1 mg 07/14/17 19:16 07/16/17 15:40 Morphine Injection - IVPUSH 1 mg Q4H PRN Administration PAIN LEVEL 4 - 6 Pantoprazole Sodium 40 mg 07/15/17 10:00 07/16/17 10:28 Protonix Iv IVPUSH 40 mg BID ALPA Administration Sucralfate 1 gm 07/14/17 18:00 07/16/17 15:40 Carafate Oral Suspension - PO 1 gm QID ALPA Administration ASSESSMENT/PLAN 53 year-old male with a PMH significant for HTN, heavy ETOH use, Dieulofoy AVM esophageal lesion, h/o variceal bleed. Admitted for hematemesis x 2 days. Hemetemesis Severe esophagitis --s/p EGD 07/14: severe esophagitis with mucosal bleeding in distal 2/3, superficial mucosal tears distal 1/3; blood seen in stomach and suctioned --h/h stable, no transfusions required Acute alcohol withdrwal --serum alcohol 351 on admission --continue librium taper --thiamine, folic acid Elevated ammonia --has been having BMs and mental status has improved --no lactulose for now FEN Fluids: NS+20K@100mL/hr Electrolytes: replete as indicated Nutrition: clears DVT prophylaxis: SCDs, early ambulation, oob Dispo: continues to require inpatient care. Full code. Visit type - Emergency Visit Emergency Visit: Yes ED Registration Date: 07/14/17 Care time: The patient presented to the Emergency Department on the above date and was hospitalized for further evaluation of their emergent condition. - New Patient This patient is new to me today: Yes Date on this admission: 07/17/17 - Critical Care Critical Care patient: No
[2017-07-16] MEDS: chlordiazePOXIDE 5 MG CAPSULE PO SCH (22:04)
[2017-07-17] MEDS: chlordiazePOXIDE 5 MG CAPSULE PO SCH ×3 (05:17→17:10)
[2017-07-17 08:41] LABS: ALBUMIN 3.4 g/dl (3.4-5.0); ANION GAP 11 (8-16); BLOOD UREA NITROGEN 5 mg/dL (7-18); CHLORIDE 100 mmol/L (98-107); CO2 27 mmol/L (21-32); CREATININE 0.4 mg/dL (0.7-1.3); GLUCOSE,RANDOM 93 mg/dL (74-106); MAGNESIUM 1.8 mg/dL (1.8-2.4); POTASSIUM 3.3 mmol/L (3.5-5.1); SGOT/AST 69 U/L (15-37); SGPT/ALT 55 U/L (12-78); SODIUM 138 mmol/L (136-145)
[2017-07-17 08:43] LABS: ALK PHOS 64 U/L (45-117); BILIRUBIN,TOTAL 0.9 mg/dL (0.2-1.0); TOT PROT 7.1 g/dl (6.4-8.2)
[2017-07-17 09:01] LABS: BASO % 0.7 % (0-2.0); EOS % 3.1 % (0-4.5); HEMATOCRIT 39.6 % (35.4-49); HEMOGLOBIN 12.4 GM/dL (11.7-16.9); MCH 25.8 pg (25.7-33.7); MCHC 31.4 g/dl (32.0-35.9); MEAN CELL VOLUME 82.2 fl (80-96); MEAN PLT VOLUME 10.1 fl (7.5-11.1); MONO % 8.9 % (3.8-10.2); NEUT % 69.3 % (42.8-82.8); RBC 4.81 M/mm3 (4.00-5.60); RDW 20.2 % (11.9-15.9); WHITE BLOOD COUNT 2.9 K/mm3 (4.0-10.0)
[2017-07-17] MEDS: SUCRALFATE 1 GM/10 ML UNIT DOSE CUPS PO SCH ×4 (09:31→21:33)
[2017-07-17] MEDS: CALCIUM 500MG/VIT-D 200 UNITS COMBO TABLET (FP) PO SCH ×2 (09:31→21:29)
[2017-07-17] MEDS: SODIUM CHLORIDE 0.9%/KCL 20 MEQ/1,000 ML INFUS.BAG IV SCH (09:31)
[2017-07-17] MEDS: PANTOPRAZOLE SODIUM 40 MG VIAL IVPUSH SCH ×2 (09:31→21:30)
[2017-07-17] MEDS ORDERED: POTASSIUM CHLORIDE TABS 20 MEQ TABLET.ER (FP) PO ONE (10:15)
[2017-07-17 11:21] LABS: PLATELET COUNT 41 K/MM3 (134-434); PLATELET ESTIMATE DECREASED
--- NOTE | 2017-07-17 12:03 | PN ---
Physical Exam: SUBJECTIVE: Patient seen and examined at bedside. Wants to go home but agreed to stay another day. OBJECTIVE: Vital Signs Period Temp Pulse Resp BP Sys/Boykin Pulse Ox Last 24 Hr 97.5 F-98.6 F 84-95 20-20 124-141/56-90 96 GENERAL/NEURO: The patient is awake, alert, and fully oriented, in no acute distress. Mild hand tremors resolved, no asterixis. LUNGS: Breath sounds equal, clear to auscultation bilaterally, no wheezes, no crackles, no accessory muscle use. HEART: Regular rate and rhythm, S1, S2 ABDOMEN: Soft, nontender, nondistended, normoactive bowel sounds, no guarding, no rebound EXTREMITIES: 2+ pulses, warm, well-perfused, no edema. SKIN: Warm, dry, normal turgor Laboratory Results - last 24 hr 07/17/17 07/17/17 07:30 07:30 WBC 2.9 L D RBC 4.81 Hgb 12.4 Hct 39.6 MCV 82.2 MCH 25.8 MCHC 31.4 L RDW 20.2 H Plt Count 41 L MPV 10.1 D Neutrophils % 69.3 D Lymphocytes % 18.0 D Monocytes % 8.9 Eosinophils % 3.1 D Basophils % 0.7 Platelet Estimate Decreased Platelet Comment No clumping noted Sodium 138 Potassium 3.3 L Chloride 100 Carbon Dioxide 27 Anion Gap 11 BUN 5 L D Creatinine 0.4 L Creat Clearance w eGFR > 60 Random Glucose 93 Calcium 8.0 L Magnesium 1.8 Total Bilirubin 0.9 AST 69 H D ALT 55 D Alkaline Phosphatase 64 Total Protein 7.1 Albumin 3.4 Active Medications Generic Name Dose Route Start Last Admin Trade Name Freq PRN Reason Stop Dose Admin Calcium Carbonate/Cholecalciferol 1 tab 07/15/17 22:00 07/17/17 09:31 Os-Darshan 500+D - PO 1 tab BID ALPA Administration Chlordiazepoxide HCl 15 mg 07/16/17 23:00 07/17/17 11:27 Librium - PO 07/17/17 17:01 15 mg [id number] ALPA Administration Chlordiazepoxide HCl 25 mg 07/14/17 19:04 Librium - PO 07/17/17 19:03 Q4H PRN WITHDRAWAL(CONT SUBST) Potassium Chloride/Sodium Chloride 20 meq in 1,000 mls @ 100 mls/hr 07/15/17 09:30 07/17/17 09:31 Ns+20 Meq Kcl - IV 100 mls/hr ASDIR ALPA Administration Pantoprazole Sodium 40 mg 07/15/17 10:00 07/17/17 09:31 Protonix Iv IVPUSH 40 mg BID ALPA Administration Sucralfate 1 gm 07/14/17 18:00 07/17/17 09:31 Carafate Oral Suspension - PO 1 gm QID ALPA Administration ASSESSMENT/PLAN 53 year-old male with a PMH significant for HTN, heavy ETOH use, Dieulofoy AVM esophageal lesion, h/o variceal bleed. Admitted for hematemesis x 2 days. Hemetemesis Severe esophagitis --s/p EGD 07/14: severe esophagitis with mucosal bleeding in distal 2/3, superficial mucosal tears distal 1/3; blood seen in stomach and suctioned --h/h stable, no transfusions required Acute alcohol withdrwal --serum alcohol 351 on admission --librium taper finished this evening --thiamine, folic acid Elevated ammonia --has been having BMs and mental status much improved --no lactulose for now Hypokalemia --repleted FEN Fluids: PO intake adequate Electrolytes: replete as indicated Nutrition: advance to regular DVT prophylaxis: SCDs, early ambulation, oob Dispo: continues to require inpatient care. Likely discharge tomorrow. Will need carafate 2g QID x 1 week, protonix 40mg daily x 8 weeks, thiamine, folic acid. Will see if patient interested in rehab. Full code. Visit type - Emergency Visit Emergency Visit: Yes ED Registration Date: 07/14/17 Care time: The patient presented to the Emergency Department on the above date and was hospitalized for further evaluation of their emergent condition. - New Patient This patient is new to me today: No - Critical Care Critical Care patient: No
[2017-07-17 14:31] LABS: HEMATOCRIT 39.8 % (35.4-49); HEMOGLOBIN 12.4 GM/dL (11.7-16.9); MCH 25.8 pg (25.7-33.7); MCHC 31.2 g/dl (32.0-35.9); MEAN CELL VOLUME 82.6 fl (80-96); MEAN PLT VOLUME 9.4 fl (7.5-11.1); PLATELET COUNT 42 K/MM3 (134-434); RBC 4.82 M/mm3 (4.00-5.60); RDW 20.8 % (11.9-15.9); WHITE BLOOD COUNT 2.7 K/mm3 (4.0-10.0)
[2017-07-18 08:16] VITALS: BP 128/85; PULSE 84; TEMP 97.6
[2017-07-18 08:25] LABS: BASO % 0.6 % (0-2.0); HEMATOCRIT 40.2 % (35.4-49); HEMOGLOBIN 12.7 GM/dL (11.7-16.9); LYMPH % 23.7 % (8-40); MCHC 31.5 g/dl (32.0-35.9); MEAN CELL VOLUME 82.4 fl (80-96); MEAN PLT VOLUME 8.8 fl (7.5-11.1); MONO % 9.7 % (3.8-10.2); RBC 4.87 M/mm3 (4.00-5.60); RDW 20.4 % (11.9-15.9); WHITE BLOOD COUNT 2.8 K/mm3 (4.0-10.0)
[2017-07-18 08:54] LABS: ALBUMIN 3.5 g/dl (3.4-5.0); ANION GAP 9 (8-16); BLOOD UREA NITROGEN 6 mg/dL (7-18); CALCIUM 8.2 mg/dL (8.5-10.1); CHLORIDE 100 mmol/L (98-107); CO2 27 mmol/L (21-32); GLUCOSE,RANDOM 91 mg/dL (74-106); MAGNESIUM 1.5 mg/dL (1.8-2.4); POTASSIUM 3.4 mmol/L (3.5-5.1); SODIUM 136 mmol/L (136-145)
[2017-07-18 08:59] LABS: ALK PHOS 66 U/L (45-117); BILIRUBIN,TOTAL 0.7 mg/dL (0.2-1.0); CREATININE 0.4 mg/dL (0.7-1.3); SGOT/AST 75 U/L (15-37); SGPT/ALT 70 U/L (12-78); TOT PROT 7.1 g/dl (6.4-8.2)
[2017-07-18 09:31] LABS: PLATELET COUNT 51 K/MM3 (134-434)
[2017-07-18] MEDS ORDERED: THIAMINE HCL 100 MG TABLET (FP) PO SCH (10:00)
[2017-07-18] MEDS: SUCRALFATE 1 GM/10 ML UNIT DOSE CUPS PO SCH ×2 (10:09→13:54)
[2017-07-18] MEDS: CALCIUM 500MG/VIT-D 200 UNITS COMBO TABLET (FP) PO SCH (10:09)
[2017-07-18] MEDS ORDERED: MAGNESIUM SULF 50% (8.12 MEQ/2 ML-1 GM VIAL) IVPB ONE (10:38)
[2017-07-18] MEDS ORDERED: MAGNESIUM SULFATE IN WATER 2 GM/50 ML IVPB IVPB ONE (11:00)
[2017-07-18] MEDS: PANTOPRAZOLE SODIUM 40 MG VIAL IVPUSH SCH (11:55)
--- NOTE | 2017-07-18 13:02 | DS ---
Physical Exam: SUBJECTIVE: Patient seen and examined, patient is sitting in bedside chair, tolerating 100% of lunch tray, denies any abdominal pain, nausea or vomiting. OBJECTIVE:53yo M with PMH continuous ETOH abuse, HTN, dieulafoy lesion and variceeal bleeding presented to ER after 2 episodes of hemetemsis at home. episodes assoc with abdomainl pain. currently also complaining of nausea and PAREDES with diaphoresis. last drink was this AM and drank a whole bottle of hard liquor. states he has had DTs in the past but never withdrawal seizure. claims medications complaince. denies CP, SOB, fever, chills, V/C/D, melena, BRBPR , auditory/visual/tactile hallucinations ER course was notable for: (1) NGT placement with cold water lavage with non bilious liquid with specs of blood (2) EGD Vital Signs Period Temp Pulse Resp BP Sys/Boykin Pulse Ox Last 24 Hr 97.5 F-98.2 F 75-86 18-20 128-130/85-86 96-96 PHYSICAL EXAM GENERAL: The patient is awake, alert, and fully oriented, in no acute distress. HEAD: Normal with no signs of trauma. EYES: PERRL, extraocular movements intact, sclera anicteric, conjunctiva clear. ENT: Ears normal, nares patent, oropharynx clear without exudates, moist mucous membranes. NECK: Trachea midline, full range of motion, supple. LUNGS: Breath sounds equal, clear to auscultation bilaterally, no wheezes, no crackles, no accessory muscle use. HEART: Regular rate and rhythm, S1, S2 without murmur, rub or gallop. ABDOMEN: Soft, nontender, nondistended, normoactive bowel sounds, no guarding, no rebound, no hepatosplenomegaly, no masses. EXTREMITIES: 2+ pulses, warm, well-perfused, no edema. NEUROLOGICAL: Cranial nerves II through XII grossly intact. Normal speech, gait not observed. PSYCH: Normal mood, normal affect. SKIN: Warm, dry, normal turgor, no rashes or lesions noted. LABS Laboratory Results - last 24 hr 07/14/17 07/17/17 07/18/17 15:04 13:40 08:10 WBC 2.7 L 2.8 L RBC 4.82 4.87 Hgb 12.4 12.7 Hct 39.8 40.2 MCV 82.6 82.4 MCH 25.8 26.0 MCHC 31.2 L 31.5 L RDW 20.8 H 20.4 H Plt Count 42 L 51 L D MPV 9.4 8.8 Neutrophils % 62.0 Lymphocytes % 23.7 D Monocytes % 9.7 Eosinophils % 4.0 Basophils % 0.6 Sodium Potassium Chloride Carbon Dioxide Anion Gap BUN Creatinine Creat Clearance w eGFR Random Glucose Calcium Magnesium Total Bilirubin AST ALT Alkaline Phosphatase Total Protein Albumin Crossmatch See Detail Crossmatch IS Only See Detail 07/18/17 08:10 WBC RBC Hgb Hct MCV MCH MCHC RDW Plt Count MPV Neutrophils % Lymphocytes % Monocytes % Eosinophils % Basophils % Sodium 136 Potassium 3.4 L Chloride 100 Carbon Dioxide 27 Anion Gap 9 BUN 6 L Creatinine 0.4 L Creat Clearance w eGFR > 60 Random Glucose 91 Calcium 8.2 L Magnesium 1.5 L Total Bilirubin 0.7 D AST 75 H ALT 70 D Alkaline Phosphatase 66 Total Protein 7.1 Albumin 3.5 Crossmatch Crossmatch IS Only Microbiology 07/14/17 15:15 Blood - Peripheral Venous Blood Culture - Preliminary NO GROWTH OBTAINED AFTER 72 HOURS, INCUBATION TO CONTINUE FOR 2 DAYS. 07/14/17 15:00 Blood - Peripheral Venous Blood Culture - Preliminary NO GROWTH OBTAINED AFTER 72 HOURS, INCUBATION TO CONTINUE FOR 2 DAYS. IMAGING Chest xray: chronic lung disease abdominal ultrasound: fatty liver vs heptacellular disease HOSPITAL COURSE: * Hemetemesis, Severe esophagitis, s/p EGD 07/14: severe esophagitis with mucosal bleeding in distal 2/3, superficial mucosal tears distal 1/3; blood seen in stomach and suctioned, h/h stable, no transfusions required * Acute alcohol withdrawal, serum alcohol 351 on admission, librium taper finished this evening, thiamine, folic acid. * Elevated ammonia, has been having BMs and mental status much improved, no lactulose given. * Hypokalemia resolved. PLAN: - discharge home with follow up to PCP and GI within 2 week - continue carafate and PPI as prescribed Date of Admission:07/14/17 Date of Discharge: 07/18/17 Minutes to complete discharge: 45 Discharge Summary Reason For Visit: UPPER GASTRIINTESTINAL HEMMORAGE Current Active Problems UGIB (upper gastrointestinal bleed) (Acute) Condition: Guarded - Instructions - Home Medications Comprehensive Discharge Medication List: Ambulatory Orders Cefuroxime Axetil [Ceftin -] 500 mg PO Q12H #8 tablet 05/31/17 Ferrous Sulfate [Feosol] 325 mg PO DAILY@0800 #30 tab 05/31/17 Folic Acid - 1 mg PO DAILY #30 tablet 05/31/17 Pantoprazole Sodium [Protonix -] 40 mg PO BID #40 tablet.ec 05/31/17 Sucralfate Oral Suspension [Carafate Oral Suspension -] 1 gm PO QID #600 ml 07/17 Thiamine HCl [Vitamin B1 -] 100 mg PO DAILY #30 tablet 05/31/17 This patient is new to me today: Yes Date on this admission: 07/18/17 Emergency Visit: Yes ED Registration Date: 07/14/17 Care time: The patient presented to the Emergency Department on the above date and was hospitalized for further evaluation of their emergent condition. Critical Care patient: No - Discharge Referral Referred to [facility] Med [facility] No
[2017-07-18] MEDS ORDERED: POTASSIUM CHLORIDE TABS 20 MEQ TABLET.ER (FP) PO ONE (13:15)
== END 2017-07-18 18:03 | disposition home or self-care (01) | DRG 243 ==
LOC: JER 13:36 → JERBED 16:07 → J6S 20:07
PROVIDERS: ADMIT Internal Medicine; ATTEND Nurse Practitioner Family
PROC: 0DJ08ZZ Inspection of Upper Intestinal Tract, Via Natural or Artificial Opening Endoscopic (ICD-10-PCS; 2017-07-14)
PROC: 0D9670Z Drainage of Stomach with Drainage Device, Via Natural or Artificial Opening (ICD-10-PCS; 2017-07-14)
PROC: HZ2ZZZZ Detoxification Services for Substance Abuse Treatment (ICD-10-PCS; principal; 2017-07-14 16:30)
DX: K20.8 Other esophagitis (principal); I10 Essential (primary) hypertension; D64.9 Anemia, unspecified; Y90.8 Blood alcohol level of 240 mg/100 ml or more; K63.81 Dieulafoy lesion of intestine; R14.0 Abdominal distension (gaseous); E87.6 Hypokalemia; E87.2 Acidosis; R00.0 Tachycardia, unspecified; D69.6 Thrombocytopenia, unspecified; R74.0 Nonspecific elevation of levels of transaminase and lactic acid dehydrogenase [LDH]; F10.239 Alcohol dependence with withdrawal, unspecified; K76.0 Fatty (change of) liver, not elsewhere classified; I85.01 Esophageal varices with bleeding; K92.0 Hematemesis
CPT/HCPCS: 36415; 71045-TC-FY; 76700-TC; 80048; 80053; 80307; 82140; 82248; 82550; 82553; 83605; 83735; 84100; 84484; 85025; 85027; 85610; 85730; 86850; 86900; 86901; 86922; 87040; 93005; 93010; 94760; 99285-25; J0131; J7030

== ENCOUNTER 2017-09-27 18:24 | Inpatient (IN) | payer OTHER ==
--- NOTE | 2017-09-27 18:41 | PDOC ---
Rapid Medical Evaluation Time Seen by Provider: 09/27/17 18:40 Medical Evaluation: Allergies Allergy/AdvReac Type Severity Reaction Status Date / Time No Known Allergies Allergy Verified 07/14/17 13:54 09/27/17 18:40 I have performed a brief in-person evaluation of this patient. The patient presents with a chief complaint of: PAREDES w/ dizziness w/ n/v and upper abd pain today. H/o significant ETOH abuse w/ multiple admissions for hematemesis w/ severe esophagitis w/ mucosal bleeding/tears on EGD 07/17, Dieulafoy AVM esophageal lesion, depression, HTN. Last ETOH intake was 8 am Pertinent physical exam findings:Tachy to 138 w/ +ttp to epigastrium I have ordered the following:labs The patient will proceed to the ED for further evaluation. Discharge Disposition - Diagnosis Dizziness - Referrals - Patient Instructions - Post Discharge Activity
[2017-09-27 19:47] LABS: EOS % 0.4 % (0-4.5); HEMATOCRIT 43.8 % (35.4-49); HEMOGLOBIN 14.3 GM/dL (11.7-16.9); LYMPH % 48.6 % (8-40); MCH 24.8 pg (25.7-33.7); MCHC 32.6 g/dl (32.0-35.9); MEAN PLT VOLUME 8.8 fl (7.5-11.1); MONO % 7.4 % (3.8-10.2); NEUT % 42.6 % (42.8-82.8); PLATELET COUNT 167 K/MM3 (134-434); RBC 5.77 M/mm3 (4.00-5.60); WHITE BLOOD COUNT 5.2 K/mm3 (4.0-10.0)
[2017-09-27] MEDS ORDERED: PANTOPRAZOLE SODIUM 40 MG VIAL IVPUSH ONE (19:50)
[2017-09-27] MEDS ORDERED: SODIUM CHLORIDE 1,000 ML IV STA ×2 (19:51→22:49)
--- NOTE | 2017-09-27 19:56 | PDOC ---
History of Present Illness - General History Source: Patient Exam Limitations: No Limitations - History of Present Illness Initial Comments: 09/27/17 20:13 The patient is a 53 year old male with a significant past medical history of ETOH abuse, history of hematemesis, anemia, HTN, gastritis, mucosal bleeding/ tears on EGD 07/17, GI bleeding, Esophageal varices, and Dieulafoy lesion who presents to the emergency department complaining of upper abdominal pain today. The patient reports moderate epigastric discomfort secondary to multiple episodes of emesis. The patient reports associated symptoms of headache, dizziness, and nausea. Of note, patient last ETOH intake was 8 am, alcohol on breath. The patient denies chest pain, shortness of breath, fevers, chills, diarrhea, and constipation. Denies dysuria, frequency, urgency, and hematuria. Allergies: NKA Past surgical history: Patient denies. Social history: Reported alcohol consumption, last drink 11 hours ago. No reported cigarette or drug use. <Alberto Armstrong - Last Filed: 09/27/17 20:13> <Shalonda Rosales - Last Filed: 09/27/17 21:45> - General Chief Complaint: Pain, Acute Stated Complaint: VOMITING Time Seen by Provider: 09/27/17 18:40 Past History <Alberto Armstrong - Last Filed: 09/27/17 20:13> - Past Medical History Anemia: Yes (anemia) Asthma: No Cardiac Disorders: No COPD: No Diabetes: No GI Disorders: Yes (gastritis, GIB, Esophogeal varices, Dieulafoy lesion) Disorders: No HTN: Yes Kidney Stones: No Seizures: No - Surgical History Abdominal Surgery: No Appendectomy: No Cardiac Surgery: No Cholecystectomy: No Lung Surgery: No Neurologic Surgery: No Orthopedic Surgery: No - Reproductive History Testicular Surgery: No - Immunization History Immunization Up to Date: No - Suicide/Smoking/Psychosocial Hx Smoking History: Never smoked Have you smoked in the past 12 months: No Number of Cigarettes Smoked Daily: 20 'Breaking Loose' booklet given: 10/06/15 Hx Alcohol Use: Yes ("HARD LIQUOR") Drug/Substance Use Hx: No Substance Use Type: Alcohol Hx Substance Use Treatment: No <Shalonda Rosales - Last Filed: 09/27/17 21:45> - Past Medical History Allergies/Adverse Reactions: Allergies Allergy/AdvReac Type Severity Reaction Status Date / Time No Known Allergies Allergy Verified 09/27/17 18:41 Home Medications: Ambulatory Orders Ferrous Sulfate [Feosol] 325 mg PO DAILY@0800 #30 tab 05/31/17 Folic Acid - 1 mg PO DAILY #30 tablet 05/31/17 Thiamine HCl [Vitamin B1 -] 100 mg PO DAILY #30 tablet 05/31/17 Pantoprazole Sodium [Protonix] 40 mg PO DAILY #56 tablet. 07/18/17 Sucralfate [Carafate] 2 gm PO QID #120 ml 07/18/17 Abd/GI Specific PMHX - Complaint Specific PMHX Hepatitis: No Pancreatitis: No <Shalonda Rosales - Last Filed: 09/27/17 21:45> Review of Systems - Review of Systems Able to Perform ROS?: Yes Comments:: CONSTITUTIONAL: (+)Fever Absent: chills, diaphoresis, generalized weakness, malaise, loss of appetite HEENT: Absent: rhinorrhea, nasal congestion, throat pain, throat swelling, difficulty swallowing, mouth swelling, ear pain, eye pain, visual Changes CARDIOVASCULAR: Absent: chest pain, syncope, palpitations, irregular heart rate, lightheadedness , peripheral edema RESPIRATORY: Absent: cough, shortness of breath, dyspnea with exertion, orthopnea, wheezing, stridor, hemoptysis GASTROINTESTINAL: (+)Epigastric discomfort. (+)Abdominal pain. (+)Vomiting. (+) Nausea. Absent: abdominal distension, diarrhea, constipation, melena, hematochezia GENITOURINARY: Absent: dysuria, frequency, urgency, hesitancy, hematuria, flank pain, genital pain MUSCULOSKELETAL: Absent: myalgia, arthralgia, joint swelling SKIN: Absent: rash, itching, pallor HEMATOLOGIC/IMMUNOLOGIC: Absent: easy bleeding, easy bruising, lymphadenopathy, frequent infections ENDOCRINE: Absent: unexplained weight gain, unexplained weight loss, heat intolerance, cold intolerance NEUROLOGIC: (+)Headache. (+)Dizziness. Absent: focal weakness or paresthesias, unsteady gait, seizure, mental status changes, bladder or bowel incontinence PSYCHIATRIC: Absent: anxiety, depression, suicidal or homicidal ideation, hallucinations. <Alberto Armstrong - Last Filed: 09/27/17 20:13> *Physical Exam - Vital Signs Last Vital Signs Temp Pulse Resp BP Pulse Ox 99.2 F 136 H 19 131/88 96 09/27/17 18:42 09/27/17 18:42 09/27/17 18:42 09/27/17 18:42 09/27/17 18:42 - Physical Exam Comments: GENERAL: (+)Smell of alcohol on breath. Well developed, well nourished. Awake and alert. No acute distress. HEENT: (+)Injected conjuctiva. Normocephalic, atraumatic. PERRLA, EOMI. Sclera are non- icteric. Moist mucous membranes. Oropharynx is clear. NECK: Supple. Full ROM. No JVD. Carotid pulses 2+ and symmetric, without bruits. No thyromegaly. No lymphadenopathy. CARDIOVASCULAR: (+)Tachycardic. No murmurs, rubs, or gallops. PULMONARY: No evidence of respiratory distress. Lungs clear to auscultation bilaterally. No wheezing, rales or rhonchi. ABDOMINAL: (+) Epigastric discomfort no guarding or rebound. No organomegaly. Normoactive bowel sounds. MUSCULOSKELETAL Normal range of motion at all joints. No bony deformities or tenderness. No CVA tenderness. EXTREMITIES: No cyanosis. No clubbing. No edema. No calf tenderness. SKIN: (+)Febrile. Warm and dry. Normal capillary refill. No rashes. No jaundice. NEUROLOGICAL: Alert, awake, appropriate. Cranial nerves 2-12 intact. No deficits to light touch and temperature in face, upper extremities and lower extremities. No motor deficits in the in face, upper extremities and lower extremities. Normoreflexic in the upper and lower extremities. Normal speech. Toes are down- going bilaterally. PSYCHIATRIC: Cooperative. Good eye contact. Appropriate mood and affect. <Alberto Armstrong - Last Filed: 09/27/17 20:13> - Vital Signs Last Vital Signs Temp Pulse Resp BP Pulse Ox 99.2 F 136 H 19 131/88 96 09/27/17 18:42 09/27/17 18:42 09/27/17 18:42 09/27/17 18:42 09/27/17 18:42 <Shalonda Rosales - Last Filed: 09/27/17 21:45> ED Treatment Course - LABORATORY CBC & Chemistry Diagram: 09/27/17 19:27 09/27/17 19:27 - ADDITIONAL ORDERS Additional order review: Laboratory Results 09/27/17 19:27 Blood Type Cancelled Antibody Screen Cancelled <Alberto Armstrong - Last Filed: 09/27/17 20:13> - LABORATORY CBC & Chemistry Diagram: 09/27/17 19:27 09/27/17 19:27 - ADDITIONAL ORDERS Additional order review: Laboratory Results 09/27/17 19:27 Blood Type Cancelled Antibody Screen Cancelled <Shalonda Rosales - Last Filed: 09/27/17 21:45> Medical Decision Making - Medical Decision Making 09/27/17 21:22 53-year-old male with a history of alcoholism presents with COFFEE GROUND EMESIS ,persistent vomiting, epigastric pain History significant for prior GI bleeds. He was admitted in June for the same complaint. Abdominal exam shows some epigastric tenderness with there is no rigidity or guarding. No significant anemia Patient given IV fluids, anti-emetics, PPI <Shalonda Rosales - Last Filed: 09/27/17 21:45> *DC/Admit/Observation/Transfer <Alberto Armstrong - Last Filed: 09/27/17 20:13> - Discharge Dispostion Admit: Yes <Shalonda Rosales - Last Filed: 09/27/17 21:45> Diagnosis at time of Disposition: Alcohol abuse, Tachycardia GIB (gastrointestinal bleeding) Qualifiers: GI bleed type/associated pathology: unspecified gastrointestinal hemorrhage type Qualified Code(s): K92.2 - Gastrointestinal hemorrhage, unspecified Attestations - Attestations Documentation prepared by Alberto Armstrong, acting as chief medical physicist for Shalonda Rosales MD. <Alberto Arsmtrong - Last Filed: 09/27/17 20:13>
[2017-09-27] MEDS ORDERED: morphine CARPU-JECT 2 MG/1 ML DISP.SYRIN IVPUSH ONE (20:00)
[2017-09-27] MEDS ORDERED: morphine SULFATE 4 MG/ML VIAL ONE (20:15)
[2017-09-27] MEDS ORDERED: PANTOPRAZOLE SODIUM 40 MG/100 ML BAG IVPB ONE (20:15)
[2017-09-27] MEDS ORDERED: ONDANSETRON 4 MG/2 ML VIAL IVPUSH ONE (20:16)
[2017-09-27] MEDS ORDERED: ONDANSETRON 4 MG/2 ML VIAL ONE (20:19)
[2017-09-27 20:34] LABS: INR 1.1 (0.82-1.09); PROTHROMBIN TIME (PATIENT) 12.4 SEC (9.7-13.0)
[2017-09-27 20:47] LABS: ALBUMIN 4.3 g/dl (3.4-5.0); ALK PHOS 76 U/L (45-117); ANION GAP 8 (8-16); BILIRUBIN,TOTAL 0.7 mg/dL (0.2-1.0); BLOOD UREA NITROGEN 12 mg/dL (7-18); CALCIUM 8.2 mg/dL (8.5-10.1); CHLORIDE 107 mmol/L (98-107); CO2 27 mmol/L (21-32); CREATININE 0.6 mg/dL (0.7-1.3); GLUCOSE,RANDOM 109 mg/dL (74-106); POTASSIUM 3.5 mmol/L (3.5-5.1); SGOT/AST 50 U/L (15-37); SGPT/ALT 36 U/L (12-78); SODIUM 142 mmol/L (136-145); TOT PROT 8.6 g/dl (6.4-8.2)
--- NOTE | 2017-09-27 21:43 | PN ---
Teaching Attending Note Name of Resident: Isabela Stephens ATTENDING PHYSICIAN STATEMENT I saw and evaluated the patient. I reviewed the resident's note and discussed the case with the resident. I agree with the resident's findings and plan as documented. SUBJECTIVE: 53 yo M with pmhx. of Etoh abuse, hematemesis, anemia, htn, anemia, gastritis, mucosal bleeding/tears on EGD 07/17. Also with hx. of Dilfuey lesion. States he currently drinks and last ETOH use was 8 am. OBJECTIVE: Physical: VS: Vital Signs Period Temp Pulse Resp BP Sys/Boykin Pulse Ox Last 24 Hr 99.2 F 136 19 131/88 96 GEN: NAD, Resting in bed, AA0x3 HEENT: NCAT, PERRL, Throat without erythema or exudates CARD: RRR S1, S2 RESP: CTAB ABD: Bsx4, NTD to palpation EXT: - C/C/E CBCD WBC 5.2 K/mm3 (4.0-10.0) D 09/27/17 19:27 RBC 5.77 M/mm3 (4.00-5.60) H 09/27/17 19:27 Hgb 14.3 GM/dL (11.7-16.9) D 09/27/17 19:27 Hct 43.8 % (35.4-49) 09/27/17 19:27 MCV 76.0 fl (80-96) L D 09/27/17 19:27 MCHC 32.6 g/dl (32.0-35.9) 09/27/17 19:27 RDW 18.0 % (11.9-15.9) H D 09/27/17 19:27 Plt Count 167 K/MM3 (134-434) D 09/27/17 19:27 MPV 8.8 fl (7.5-11.1) 09/27/17 19:27 CMP Sodium 142 mmol/L (136-145) 09/27/17 19:27 Potassium 3.5 mmol/L (3.5-5.1) 09/27/17 19:27 Chloride 107 mmol/L (98-107) 09/27/17 19:27 Carbon Dioxide 27 mmol/L (21-32) 09/27/17 19:27 Anion Gap 8 (8-16) 09/27/17 19:27 BUN 12 mg/dL (7-18) D 09/27/17 19:27 Creatinine 0.6 mg/dL (0.7-1.3) L D 09/27/17 19:27 Creat Clearance w eGFR > 60 (>60) 09/27/17 19:27 Random Glucose 109 mg/dL (74-106) H 09/27/17 19:27 Calcium 8.2 mg/dL (8.5-10.1) L 09/27/17 19:27 Total Bilirubin 0.7 mg/dL (0.2-1.0) 09/27/17 19:27 AST 50 U/L (15-37) H D 09/27/17 19:27 ALT 36 U/L (12-78) D 09/27/17 19:27 Alkaline Phosphatase 76 U/L (45-117) 09/27/17 19:27 Total Protein 8.6 g/dl (6.4-8.2) H D 09/27/17 19:27 Albumin 4.3 g/dl (3.4-5.0) D 09/27/17 19:27 Home Medications Medication Instructions Recorded Ferrous Sulfate [Feosol] 325 mg PO DAILY@0800 #30 tab 05/31/17 Folic Acid - 1 mg PO DAILY #30 tablet 05/31/17 Thiamine HCl [Vitamin B1 -] 100 mg PO DAILY #30 tablet 05/31/17 Pantoprazole Sodium [Protonix] 40 mg PO DAILY #56 tablet. 07/18/17 Sucralfate [Carafate] 2 gm PO QID #120 ml 07/18/17 EKG: CXR: No Acute Pathologu ASSESSMENT AND PLAN: 53 yo M with pmhx. of Etoh abuse, hematemesis, anemia, htn, anemia, gastritis, mucosal bleeding/tears/Dilfuery on EGD 07/17. Who presents with coffee ground emesis 1.) UGIB - NPO - 2 Large Bore Ivs - Repeat CBC and Coags - GI Consult - Transfuse HgB <7 - Type & Screen, Consent 2.) ETOH Abuse - Banana bag - CIWA/Librium - Detox Consult 3.) HTN - Not on any home meds 4.) Dvt Ppx - [facility] in [facility]-Tele
[2017-09-27] MEDS ORDERED: FOLIC ACID INJECTION - 1 MG, THIAMINE HCL 100 MG, MULTIVIT INJECTION ADULT 10 ML in SOD... IVPB ONE (22:57)
[2017-09-27] MEDS ORDERED: chlordiazePOXIDE HCL 25 MG CAPSULE PO PRN ×2 (22:58→23:23)
--- NOTE | 2017-09-27 22:59 | MSN ---
Admitting History and Physical - Admission Chief Complaint: Hematemasis History of Present Illness: Patient is a 53 year old male with past medical history of ETOH, anemia, HTN, and previous GI bleeding from mucosal tears and deulofeys lesion that presented to the ER with abdominal pain and bright red emesis. The patient stated he started drinking at 5 am in the morning and was drinking until 3 pm. The patient states that he has had abdominal pain in the epigastic region for 3 days now and his pain started getting worse at noon yesterday while he was drinking. The patient stated the the pain in located deep his abdomen below the xiphoid process. Around the time of the pain the patient began to have nausea and vomiting. The vomiting was described as bright red and happened a total of 5 times. The patient is also complaining of dizziness, and pounding of his heart beat. The patient denies any LOC, chest pain, SOB, diarrhea or blood in his stool. The patient feel very anxious and is complaining of shakiness in his hands, While in the ER the patient was given 1mg of morphine started on N/S, given zofran 4mg and started on IV protonix, History Source: Patient Limitations to Obtaining History: Intoxication, Language Barrier (speaks new zealander ) - Past Medical History Cardiovascular: Yes: HTN Gastrointestinal: Yes: GI Bleed (upper GI bleed confirmed by EGD, shown to have muscosal tears and AVM) Heme/Onc: Yes: Thrombocytopenia Infectious Disease: Yes: Other (h/o TB treated [address] [facility] notes) Psych: Yes: Addictions (alcohol abuse) - Smoking History Smoking history: Never smoked Have you smoked in the past 12 months: No Aproximately how many cigarettes per day: 20 - Alcohol/Substance Use Hx Alcohol Use: Yes ("HARD LIQUOR") Home Medications - Allergies Allergies/Adverse Reactions: Allergies Allergy/AdvReac Type Severity Reaction Status Date / Time No Known Allergies Allergy Verified 09/27/17 18:41 - Home Medications Home Medications: Ambulatory Orders Ferrous Sulfate [Feosol] 325 mg PO DAILY@0800 #30 tab 05/31/17 Folic Acid - 1 mg PO DAILY #30 tablet 05/31/17 Thiamine HCl [Vitamin B1 -] 100 mg PO DAILY #30 tablet 05/31/17 Pantoprazole Sodium [Protonix] 40 mg PO DAILY #56 07/18/17 Sucralfate [Carafate] 2 gm PO QID #120 ml 07/18/17 Review of Systems - Review of Systems Constitutional: reports: Diaphoresis. denies: Fever Cardiovascular: reports: Palpitations. denies: Chest Pain, Shortness of Breath Respiratory: reports: Hemoptysis. denies: Cough, SOB Gastrointestinal: reports: Abdominal Pain, Vomiting, Vomiting Blood. denies: Diarrhea Neurological: reports: Tremors Psychiatric: reports: Anxiety Physical Examination Vital Signs: Vital Signs Temperature 98.3 F 09/27/17 22:43 Pulse Rate 116 H 09/27/17 22:43 Respiratory Rate 18 09/27/17 22:43 Blood Pressure 134/91 09/27/17 22:43 O2 Sat by Pulse Oximetry (%) 95 09/27/17 22:43 Constitutional: Yes: Anxious, Diaphoresis Eyes: Yes: Other (erythema and sub conjuctival hemorhage) HENT: Yes: Thrush Cardiovascular: Yes: Regular Rate and Rhythm, Tachycardia, S1, S2 Respiratory: Yes: CTA Bilaterally Gastrointestinal: Yes: Hematemesis, Tenderness, Epigastrium, Vomiting Neurological: Yes: Alert, Oriented, Tremors Labs: CBC, BMP 09/27/17 19:27 09/27/17 19:27 Problem List - Problems (1) Dizziness Code(s): R42 - DIZZINESS AND GIDDINESS (2) Alcohol abuse Code(s): F10.10 - ALCOHOL ABUSE, UNCOMPLICATED (3) UGIB (upper gastrointestinal bleed) Code(s): K92.2 - GASTROINTESTINAL HEMORRHAGE, UNSPECIFIED Assessment/Plan Patient is a 53 year old male with a past medical hx of ETOH abuse, upper GI bleed, and HTN presenting for hematemsis and abdominal pain. Problem List: # Upper GI bleed - possibly secondary to alcohol use - hbg 14.3, continue to monitor for signs of anemia - start two large bore IV - Start IV N/S - Start IV protonix - 1 mg morphine given in ED, hold additional pain medication - continue zofran 4mg PRN - obtain upper GI ultrasound - GI consult placed # Alcohol intoxication - alcohol level 440.5 - CIWA score of 9, start librium protocol - start banana bag, and daily folate and thiamine - continue to monitor for signs of withdrawl - detox consult to Dr Mayer #Thrush - start nystatin swish and spit # HTN - BP WNL, no medication needed at this time F/E/N -N/S -Banana bag -NPO Dispo - admit hospital telemetry floor
[2017-09-27] MEDS ORDERED: chlordiazePOXIDE HCL 25 MG CAPSULE PO SCH (23:00)
[2017-09-27] MEDS ORDERED: PANTOPRAZOLE SODIUM 80 MG in SODIUM CHLORIDE 100 ML IVPB SCH (23:00)
[2017-09-27] MEDS ORDERED: chlordiazePOXIDE HCL 25 MG CAPSULE ONE (23:04)
--- NOTE | 2017-09-28 00:05 | HP ---
CHIEF COMPLAINT: hematemesis HISTORY OF PRESENT ILLNESS: Patient is a 53 yo M with a PMhx ETOH abuse, anemia , HTN, and previous admissions for upper GI bleeding, presented because of 8/10 , non-radiating, epigastric pain over the last 3 days and bright red emesis that started at 3pm today. Patient says he has been drinking Bacardi since 5am. His last drink was around 3pm. Patient states his symptoms feel the same as his previous symptoms when he was admitted. He said he vomited a total of 5 times, last one being in the ED. He also complains of a headache and dizziness and feels says he can feel his heart pounding. Patient denies LOC, diarrhea, bloody stools, chest pain, sob, dysuria. ER course was notable for: (1) Banana bag, protonix (2) morphine 1mg (3)Zofran Recent Travel: n/a PAST MEDICAL HISTORY: per hpi PAST SURGICAL HISTORY: n/a Social History: Smoking: denies Alcohol: daily, heavy drinking Drugs: denies Family History: Allergies No Known Allergies Allergy (Verified 09/27/17 18:41) HOME MEDICATIONS: Home Medications Medication Instructions Recorded Ferrous Sulfate [Feosol] 325 mg PO DAILY@0800 #30 tab 05/31/17 Folic Acid - 1 mg PO DAILY #30 tablet 05/31/17 Thiamine HCl [Vitamin B1 -] 100 mg PO DAILY #30 tablet 05/31/17 Pantoprazole Sodium [Protonix] 40 mg PO DAILY #56 tablet. 07/18/17 Sucralfate [Carafate] 2 gm PO QID #120 ml 07/18/17 REVIEW OF SYSTEMS CONSTITUTIONAL: generalized weakness, malaise Absent: fever, chills, diaphoresis, loss of appetite, weight change HEENT: Absent: rhinorrhea, nasal congestion, throat pain, throat swelling, difficulty swallowing, mouth swelling, ear pain, eye pain, visual changes CARDIOVASCULAR: palpitations, lightheadedness Absent: chest pain, syncope, irregular heart rate, peripheral edema RESPIRATORY: Absent: cough, shortness of breath, dyspnea with exertion, orthopnea, wheezing, stridor, hemoptysis GASTROINTESTINAL: abdominal pain, nausea, vomiting Absent: abdominal distension,diarrhea, constipation, melena, hematochezia GENITOURINARY: Absent: dysuria, frequency, urgency, hesitancy, hematuria, flank pain, genital pain MUSCULOSKELETAL: Absent: myalgia, arthralgia, joint swelling, back pain, neck pain NEUROLOGIC: dizziness Absent: headache, focal weakness or paresthesias, unsteady gait, seizure, mental status changes, bladder or bowel incontinence PSYCHIATRIC: anxiety Absent: depression, suicidal or homicidal ideation, hallucinations. PHYSICAL EXAMINATION Vital Signs - 24 hr 09/27/17 09/27/17 18:42 22:43 Temperature 99.2 F 98.3 F Pulse Rate 136 H Pulse Rate [ 116 H Left Radial] Respiratory 19 18 Rate Blood Pressure 131/88 Blood Pressure 134/91 [Left Arm] O2 Sat by Pulse 96 95 Oximetry (%) GENERAL: A/o x 3, anxious, in no acute distress. Streaks of bright red blood in ED garbage. EYES: extraocular movements intact, injected EARS, NOSE, THROAT: oral thrush on tongue. Dry mucous membranes. NECK: Normal range of motion, supple without lymphadenopathy, JVD, or masses. LUNGS: Breath sounds equal, clear to auscultation bilaterally. HEART: tachy, normal S1 and S2 without murmur, rub or gallop. ABDOMEN: epigastric tenderness, +BS, nondistended UPPER EXTREMITIES: 2+ pulses, No peripheral edema. mild hand tremors LOWER EXTREMITIES: 2+ pulses, No peripheral edema. NEUROLOGICAL: Cranial nerves II-XII intact. Normal speech. Normal gait. Laboratory Results - last 24 hr 09/27/17 09/27/17 09/27/17 19:27 19:27 19:27 WBC 5.2 D RBC 5.77 H Hgb 14.3 D Hct 43.8 MCV 76.0 L D MCH 24.8 L MCHC 32.6 RDW 18.0 H D Plt Count 167 D MPV 8.8 Neutrophils % 42.6 L D Lymphocytes % 48.6 H D Monocytes % 7.4 Eosinophils % 0.4 D Basophils % 1.0 PT with INR 12.40 INR 1.10 Sodium 142 Potassium 3.5 Chloride 107 Carbon Dioxide 27 Anion Gap 8 BUN 12 D Creatinine 0.6 L D Creat Clearance w eGFR > 60 Random Glucose 109 H Calcium 8.2 L Total Bilirubin 0.7 AST 50 H D ALT 36 D Alkaline Phosphatase 76 Total Protein 8.6 H D Albumin 4.3 D Lipase Alcohol, Quantitative Blood Type Antibody Screen 09/27/17 09/27/17 09/27/17 19:27 19:27 19:27 WBC RBC Hgb Hct MCV MCH MCHC RDW Plt Count MPV Neutrophils % Lymphocytes % Monocytes % Eosinophils % Basophils % PT with INR INR Sodium Potassium Chloride Carbon Dioxide Anion Gap BUN Creatinine Creat Clearance w eGFR Random Glucose Calcium Total Bilirubin AST ALT Alkaline Phosphatase Total Protein Albumin Lipase 352 Alcohol, Quantitative 440.50 H* Blood Type Cancelled Antibody Screen Cancelled 09/27/17 20:38 WBC RBC Hgb Hct MCV MCH MCHC RDW Plt Count MPV Neutrophils % Lymphocytes % Monocytes % Eosinophils % Basophils % PT with INR INR Sodium Potassium Chloride Carbon Dioxide Anion Gap BUN Creatinine Creat Clearance w eGFR Random Glucose Calcium Total Bilirubin AST ALT Alkaline Phosphatase Total Protein Albumin Lipase Alcohol, Quantitative Blood Type A POSITIVE Antibody Screen Negative ASSESSMENT/PLAN: 53 yo M with pmhx. of Etoh abuse, hematemesis, anemia, htn, anemia, gastritis, mucosal bleeding/tears/Dilfuery on EGD 07/17. Who presents with coffee ground emesis. #Upper GI bleed -likely secondary to alcohol abuse -Hgb 14.3 -NPO -FU CBC -Pt/INR -Type & screen -GI consulted -Abdominal U/s -Protonix gtt -Vitals q4h -Transfuse if Hgb <7 #Alcohol intoxication -440 alcohol level -CIWA 9, Librium protocol -Banana bag in ED -Detox Consult: Dr. Helton -NPO now, consider thiamine, folate #Oral thrush -S & S #HTN -WNL -med rec. #FEN -NS 75 ml/hour -replete as needed -NPO admit tele Visit type - Emergency Visit Emergency Visit: Yes ED Registration Date: 09/27/17 Care time: The patient presented to the Emergency Department on the above date and was hospitalized for further evaluation of their emergent condition. - New Patient This patient is new to me today: Yes Date on this admission: 10/02/17 - Critical Care Critical Care patient: No Hospitalist Screening - Colonoscopy Questionnaire Colonoscopy Questionnaire: Colonoscopy Questionnaire - Patient: 50 - 75 years old and never had a screening colonoscopy: Unknown History of colon or rectal polyps, or CA: Unknown History of IBD, Crohn's disease or UC: Unknown History of abdominal radiation therapy as a child: Unknown - Relative: 1 with colon or rectal CA, or polyps at age 60 or younger: Unknown Colon or rectal CA diagnosed at age 45 or younger: Unknown Multiple relatives with colon or rectal CA: Unknown - Outcome: Screening Result: Negative Screen
[2017-09-28 00:49] LABS: URINE APPEARANCE SLCLOUDY; URINE BILIRUBIN NEGATIVE (<2.0 mg/dL); URINE COLOR YELLOW; URINE GLUCOSE (UA) NEGATIVE (NEGATIVE); URINE KETONE 1+ (NEGATIVE); URINE NITRITE NEGATIVE (NEGATIVE)
[2017-09-28 00:50] LABS: URINE LEUK ESTERASE 1+ (NEGATIVE); URINE PROTEIN 3+ (NEGATIVE)
[2017-09-28 01:03] LABS: URINE BACTERIA RARE /hpf (NONE SEEN); URINE MUCUS RARE
[2017-09-28] MEDS: chlordiazePOXIDE HCL 25 MG CAPSULE PO SCH ×4 (05:04→22:14)
[2017-09-28] MEDS: NYSTATIN 500,000 UNITS/5 ML SUSPENSION PO SCH ×4 (05:05→23:00)
[2017-09-28] MEDS: SODIUM CHLORIDE 1,000 ML IV SCH ×2 (05:05→23:03)
[2017-09-28 06:07] VITALS: BMI 28.8
--- NOTE | 2017-09-28 07:49 | PN ---
Physical Exam: SUBJECTIVE: Patient seen and examined OBJECTIVE: Vital Signs Period Temp Pulse Resp BP Sys/Boykin Pulse Ox Last 24 Hr 97.6 F-99.2 F 105-136 18-19 131-154/87-97 95-97 GENERAL: The patient is awake, alert, and fully oriented, in no acute distress. HEAD: Normal with no signs of trauma. EYES: PERRL, extraocular movements intact, sclera anicteric, conjunctiva clear. No ptosis. ENT: Ears normal, nares patent, oropharynx clear without exudates, moist mucous membranes. NECK: Trachea midline, full range of motion, supple. LUNGS: Breath sounds equal, clear to auscultation bilaterally, no wheezes, no crackles, no accessory muscle use. HEART: Regular rate and rhythm, S1, S2 without murmur, rub or gallop. ABDOMEN: Soft, nontender, nondistended, normoactive bowel sounds, no guarding, no rebound, no hepatosplenomegaly, no masses. EXTREMITIES: 2+ pulses, warm, well-perfused, no edema. NEUROLOGICAL: Cranial nerves II through XII grossly intact. Normal speech, gait not observed. PSYCH: Normal mood, normal affect. SKIN: Warm, dry, normal turgor, no rashes or lesions noted Laboratory Results - last 24 hr 09/27/17 09/27/17 09/27/17 19:27 19:27 19:27 WBC 5.2 D RBC 5.77 H Hgb 14.3 D Hct 43.8 MCV 76.0 L D MCH 24.8 L MCHC 32.6 RDW 18.0 H D Plt Count 167 D MPV 8.8 Neutrophils % 42.6 L D Lymphocytes % 48.6 H D Monocytes % 7.4 Eosinophils % 0.4 D Basophils % 1.0 PT with INR 12.40 INR 1.10 Sodium 142 Potassium 3.5 Chloride 107 Carbon Dioxide 27 Anion Gap 8 BUN 12 D Creatinine 0.6 L D Creat Clearance w eGFR > 60 Random Glucose 109 H Calcium 8.2 L Total Bilirubin 0.7 AST 50 H D ALT 36 D Alkaline Phosphatase 76 Total Protein 8.6 H D Albumin 4.3 D Lipase Urine Color Urine Appearance Urine pH Ur Specific [place] Urine Protein Urine Glucose (UA) Urine Ketones Urine Blood Urine Nitrite Urine Bilirubin Urine Urobilinogen Ur Leukocyte Esterase Urine WBC (Auto) Urine RBC (Auto) Urine Bacteria Urine Mucus Alcohol, Quantitative Blood Type Antibody Screen 09/27/17 09/27/17 09/27/17 19:27 19:27 19:27 WBC RBC Hgb Hct MCV MCH MCHC RDW Plt Count MPV Neutrophils % Lymphocytes % Monocytes % Eosinophils % Basophils % PT with INR INR Sodium Potassium Chloride Carbon Dioxide Anion Gap BUN Creatinine Creat Clearance w eGFR Random Glucose Calcium Total Bilirubin AST ALT Alkaline Phosphatase Total Protein Albumin Lipase 352 Urine Color Urine Appearance Urine pH Ur Specific [place] Urine Protein Urine Glucose (UA) Urine Ketones Urine Blood Urine Nitrite Urine Bilirubin Urine Urobilinogen Ur Leukocyte Esterase Urine WBC (Auto) Urine RBC (Auto) Urine Bacteria Urine Mucus Alcohol, Quantitative 440.50 H* Blood Type Cancelled Antibody Screen Cancelled 09/27/17 09/28/17 20:38 00:10 WBC RBC Hgb Hct MCV MCH MCHC RDW Plt Count MPV Neutrophils % Lymphocytes % Monocytes % Eosinophils % Basophils % PT with INR INR Sodium Potassium Chloride Carbon Dioxide Anion Gap BUN Creatinine Creat Clearance w eGFR Random Glucose Calcium Total Bilirubin AST ALT Alkaline Phosphatase Total Protein Albumin Lipase Urine Color Yellow Urine Appearance Slcloudy Urine pH 5.0 Ur Specific [place] 1.023 Urine Protein 3+ H Urine Glucose (UA) Negative Urine Ketones 1+ H Urine Blood 1+ H Urine Nitrite Negative Urine Bilirubin Negative Urine Urobilinogen 2.0 Ur Leukocyte Esterase 1+ H Urine WBC (Auto) 92 Urine RBC (Auto) 4 Urine Bacteria Rare Urine Mucus Rare Alcohol, Quantitative Blood Type A POSITIVE Antibody Screen Negative Active Medications Generic Name Dose Route Start Last Admin Trade Name Freq PRN Reason Stop Dose Admin Chlordiazepoxide HCl 50 mg 09/28/17 05:00 09/28/17 05:04 Librium - PO 09/28/17 17:01 50 mg [id number] ALPA Administration Chlordiazepoxide HCl 25 mg 09/28/17 23:00 Librium - PO 09/29/17 17:01 [id number] ALPA Chlordiazepoxide HCl 15 mg 09/29/17 23:00 Librium - PO 09/30/17 17:01 [id number] ALPA Chlordiazepoxide HCl 25 mg 09/27/17 23:23 Librium - PO 09/30/17 23:22 Q4H PRN WITHDRAWAL(CONT SUBST) Sodium Chloride 1,000 mls @ 75 mls/hr 09/27/17 23:00 09/28/17 05:05 Normal Saline - IV 75 mls/hr ASDIR ALPA Administration Pantoprazole Sodium 80 mg/ 100 mls @ 10 mls/hr 09/27/17 23:00 Sodium Chloride IVPB Q10H ALPA 8 MG/HR Nystatin 500,000 units 09/28/17 00:00 09/28/17 05:05 Nystatin Oral Suspension - PO 500,000 units Q6HPO ALPA Administration ASSESSMENT/PLAN: Visit type - Emergency Visit Emergency Visit: Yes ED Registration Date: 09/27/17 Care time: The patient presented to the Emergency Department on the above date and was hospitalized for further evaluation of their emergent condition. - New Patient This patient is new to me today: No - Critical Care Critical Care patient: No
[2017-09-28 07:57] LABS: HEMATOCRIT 37.5 % (35.4-49); MCH 24.5 pg (25.7-33.7); MCHC 31.9 g/dl (32.0-35.9); MEAN CELL VOLUME 76.8 fl (80-96); PLATELET COUNT 98 K/MM3 (134-434); RBC 4.88 M/mm3 (4.00-5.60); RDW 17.4 % (11.9-15.9); WHITE BLOOD COUNT 3.8 K/mm3 (4.0-10.0)
[2017-09-28 08:28] LABS: ALBUMIN 3.7 g/dl (3.4-5.0); ANION GAP 14 (8-16); BLOOD UREA NITROGEN 8 mg/dL (7-18); CALCIUM 7.4 mg/dL (8.5-10.1); CHLORIDE 107 mmol/L (98-107); CO2 23 mmol/L (21-32); GLUCOSE,RANDOM 81 mg/dL (74-106); MAGNESIUM 1.7 mg/dL (1.8-2.4); PHOSPHOROUS 2.9 mg/dL (2.5-4.9); POTASSIUM 3.5 mmol/L (3.5-5.1); SGOT/AST 42 U/L (15-37); SODIUM 144 mmol/L (136-145)
[2017-09-28 08:30] LABS: ALK PHOS 62 U/L (45-117); BILIRUBIN,TOTAL 0.7 mg/dL (0.2-1.0); CREATININE 0.4 mg/dL (0.7-1.3); SGPT/ALT 30 U/L (12-78); TOT PROT 7.3 g/dl (6.4-8.2)
[2017-09-28 08:37] LABS: INR 1.14 (0.82-1.09); PROTHROMBIN TIME (PATIENT) 12.9 SEC (9.7-13.0)
[2017-09-28] MEDS ORDERED: PANTOPRAZOLE SODIUM 160 MG in DEXTROSE 5%-WATER - 290 ML IVPB SCH (09:30)
[2017-09-28] MEDS ORDERED: THIAMINE HCL 100 MG TABLET (FP) PO SCH (10:00)
[2017-09-28] MEDS ORDERED: FOLIC ACID 1 MG TABLET (FP) PO SCH (10:00)
--- NOTE | 2017-09-28 10:26 | EKG ---
Test Reason : Blood Pressure : / mmHG Vent. Rate : 119 BPM Atrial Rate : 119 BPM P-R Int : 144 ms QRS Dur : 086 ms QT Int : 330 ms P-R-T Axes : 038 013 023 degrees QTc Int : 464 ms SINUS TACHYCARDIA OTHERWISE NORMAL ECG WHEN COMPARED WITH ECG OF 14-JUL-2017 14:11, NO SIGNIFICANT CHANGE WAS FOUND Confirmed by MANPREET LARRY MD ([id number]) on 09/28/2017 10:26:20 AM Referred By: Confirmed By:MANPREET LARRY MD
--- NOTE | 2017-09-28 10:57 | CONSULT ---
Consult Detox [facility] Reason for Current Admission/Consult: substance use Referred by:: miguel santos - Alcohol/Substance Use Hx Alcohol Use: Yes ("HARD LIQUOR") - Past Medical History Cardio/Vascular: Yes: HTN Gastrointestinal: Yes: GI Bleed (upper GI bleed confirmed by EGD, shown to have muscosal tears and AVM) Infectious Disease: Yes: Other (h/o TB treated 2008 per [facility] notes) Psych: Yes: Addictions (alcohol abuse) Assessment Plan - Diagnosis (1) Alcohol dependence with uncomplicated withdrawal Status: Acute (2) Hematemesis Status: Acute - Plan Plan: chart imaging , labs reviewed. 53 yo m with h/o alcohol use disorder, severe and GI bleed in past admitted with hematemesis, epigastric pain and intoxication. Started on libirum detox protoocl which he appears to be tolerating well. Woudl continue detox, fluids, vitamina dn electrolyte supplementation. When medicallstable refer to [facility] for inpatie rehab or intensive outpatient treatment whichever suits patient bes. - Medication Detox Regimen/Protocol: Librium
--- NOTE | 2017-09-28 11:19 | CON.GI ---
Consult Consult Specialty:: GI Reason for Consultation:: hematemesis - History of Present Illness History of Present Illness: Chart reviewed. Events noted. The patient is known to GI service from prior 2 admissions. The patient was admitted in April 2017 and June 2017. Both admissions were for hematemesis. Patient underwent EGD twice. Both procedures revealed severe, bleeding erosive esophagitis with normal proximal small bowel and mild gastritis in the stomach. The patient was admitted yesterday with hematemesis after a day of binge drinking. He had high alcohol levels. His BUN and creatinine were normal. His hemoglobin on admission was 14 and today 12 grams per deciliter. Minimally elevated AST with normal ALT, alk phos and bili. The patient reports no events overnight. Denies nausea, vomiting, melena, hematochezia, or hematemesis. Reports mild epigastric pain. Patient's overnight nerves reports no acute events either. - History Source History Provided By: Patient, Medical Record, Caregiver - Past Medical History Cardio/Vascular: Yes: HTN Gastrointestinal: Yes: GI Bleed (upper GI bleed confirmed by EGD, shown to have muscosal tears and AVM) Infectious Disease: Yes: Other (h/o TB treated 2008 per [facility] notes) Psych: Yes: Addictions (alcohol abuse) - Alcohol/Substance Use Hx Alcohol Use: Yes ("HARD LIQUOR") - Smoking History Smoking history: Never smoked Have you smoked in the past 12 months: No Aproximately how many cigarettes per day: 20 Home Medications - Allergies Allergies/Adverse Reactions: Allergies Allergy/AdvReac Type Severity Reaction Status Date / Time No Known Allergies Allergy Verified 09/27/17 18:41 - Home Medications Home Medications: Ambulatory Orders Ferrous Sulfate [Feosol] 325 mg PO DAILY@0800 #30 tab 05/31/17 Folic Acid - 1 mg PO DAILY #30 tablet 05/31/17 Thiamine HCl [Vitamin B1 -] 100 mg PO DAILY #30 tablet 05/31/17 Pantoprazole Sodium [Protonix] 40 mg PO DAILY #56 tablet. 07/18/17 Sucralfate [Carafate] 2 gm PO QID #120 ml 07/18/17 Family Disease History - Family Disease History Family History: Unremarkable (Noncontributory) Review of Systems Findings/Remarks: as per H&P and HPI Physical Exam-GI Vital Signs: Vital Signs Temperature 97.9 F 09/28/17 08:59 Pulse Rate 102 H 09/28/17 08:59 Respiratory Rate 18 09/28/17 08:59 Blood Pressure 146/84 09/28/17 08:59 O2 Sat by Pulse Oximetry (%) 94 L 09/28/17 09:00 Constitutional: Yes: Calm Eyes: No: Sclera Icterus HENT: Yes: Atraumatic Neck: Yes: Supple Cardiovascular: Yes: Regular Rate and Rhythm, Tachycardia Respiratory: Yes: Regular Gastrointestinal Inspection: No: Ascites, Distention ...Palpate: Yes: Soft, Tenderness, Tenderness, Epigastium. No: Firm/Rigid, Guarding, Mass, Tenderness, Rebound ...Rectal Exam: Yes: Other ( awaited for stool to be sent to lab. No stool in rectal vault) Neurological: Yes: Alert Labs: CBC, BMP 09/28/17 06:44 09/28/17 06:44 INR, PTT INR 1.14 (0.82-1.09) 09/28/17 07:40 Laboratory Last Values WBC 3.8 K/mm3 (4.0-10.0) L 09/28/17 06:44 RBC 4.88 M/mm3 (4.00-5.60) 09/28/17 06:44 Hgb 12.0 GM/dL (11.7-16.9) D 09/28/17 06:44 Hct 37.5 % (35.4-49) 09/28/17 06:44 MCV 76.8 fl (80-96) L 09/28/17 06:44 MCH 24.5 pg (25.7-33.7) L 09/28/17 06:44 MCHC 31.9 g/dl (32.0-35.9) L 09/28/17 06:44 RDW 17.4 % (11.9-15.9) H 09/28/17 06:44 Plt Count 98 K/MM3 (134-434) L D 09/28/17 06:44 MPV 9.0 fl (7.5-11.1) 09/28/17 06:44 Neutrophils % 42.6 % (42.8-82.8) L D 09/27/17 19:27 Lymphocytes % 48.6 % (8-40) H D 09/27/17 19:27 Monocytes % 7.4 % (3.8-10.2) 09/27/17 19:27 Eosinophils % 0.4 % (0-4.5) D 09/27/17 19:27 Basophils % 1.0 % (0-2.0) 09/27/17 19:27 PT with INR 12.90 SEC (9.7-13.0) 09/28/17 07:40 INR 1.14 (0.82-1.09) 09/28/17 07:40 Sodium 144 mmol/L (136-145) 09/28/17 06:44 Potassium 3.5 mmol/L (3.5-5.1) 09/28/17 06:44 Chloride 107 mmol/L (98-107) 09/28/17 06:44 Carbon Dioxide 23 mmol/L (21-32) 09/28/17 06:44 Anion Gap 14 (8-16) 09/28/17 06:44 BUN 8 mg/dL (7-18) D 09/28/17 06:44 Creatinine 0.4 mg/dL (0.7-1.3) L D 09/28/17 06:44 Creat Clearance w eGFR > 60 (>60) 09/28/17 06:44 Random Glucose 81 mg/dL (74-106) D 09/28/17 06:44 Calcium 7.4 mg/dL (8.5-10.1) L 09/28/17 06:44 Phosphorus 2.9 mg/dL (2.5-4.9) D 09/28/17 06:44 Magnesium 1.7 mg/dL (1.8-2.4) L 09/28/17 06:44 Total Bilirubin 0.7 mg/dL (0.2-1.0) 09/28/17 06:44 AST 42 U/L (15-37) H 09/28/17 06:44 ALT 30 U/L (12-78) 09/28/17 06:44 Alkaline Phosphatase 62 U/L (45-117) 09/28/17 06:44 Creatine Kinase 368 IU/L (39-308) H 09/28/17 06:44 Creatine Kinase Index 0.5 % (0.0-5.0) 09/28/17 06:44 CK-MB (CK-2) 2.179 ng/mL (0.5-3.6) 09/28/17 06:44 Troponin I < 0.02 ng/ml (0.00-0.05) 09/28/17 06:44 Total Protein 7.3 g/dl (6.4-8.2) 09/28/17 06:44 Albumin 3.7 g/dl (3.4-5.0) 09/28/17 06:44 Lipase 352 U/L (73-393) 09/27/17 19:27 Urine Color Yellow 09/28/17 00:10 Urine Appearance Slcloudy 09/28/17 00:10 Urine pH 5.0 (5.0-8.0) 09/28/17 00:10 Ur Specific [place] 1.023 (1.001-1.035) 09/28/17 00:10 Urine Protein 3+ (NEGATIVE) H 09/28/17 00:10 Urine Glucose (UA) Negative (NEGATIVE) 09/28/17 00:10 Urine Ketones 1+ (NEGATIVE) H 09/28/17 00:10 Urine Blood 1+ (NEGATIVE) H 09/28/17 00:10 Urine Nitrite Negative (NEGATIVE) 09/28/17 00:10 Urine Bilirubin Negative (<2.0 mg/dL) 09/28/17 00:10 Urine Urobilinogen 2.0 mg/dL (0.2-1.0) 09/28/17 00:10 Ur Leukocyte Esterase 1+ (NEGATIVE) H 09/28/17 00:10 Urine WBC (Auto) 92 /hpf (3-5) 09/28/17 00:10 Urine RBC (Auto) 4 /hpf (0-3) 09/28/17 00:10 Urine Bacteria Rare /hpf (NONE SEEN) 09/28/17 00:10 Urine Mucus Rare 09/28/17 00:10 Alcohol, Quantitative 440.50 mg/dL (0.0-5.0) H* 09/27/17 19:27 Blood Type A POSITIVE 09/27/17 20:38 Antibody Screen Negative 09/27/17 20:38 Problem List - Problems (1) Erosive esophagitis Code(s): K22.10 - ULCER OF ESOPHAGUS WITHOUT BLEEDING (2) Hematemesis Code(s): K92.0 - HEMATEMESIS Assessment/Plan The patient is very likely has severe, erosive, bleeding esophagitis similar to prior admissions. No signs of active gastrointestinal bleeding at this time. The patient is him anatomically stable. He will need to be on alcohol withdrawal protocol. Protonix 40 mg IV piggyback twice a day. Carafate 1 g by mouth 4 times a day. Clear liquid diet. Observe. CBC every morning. Discussed with primary care team and the nurse.
[2017-09-28] MEDS ORDERED: MAGNESIUM SULF 50% (8.12 MEQ/2 ML-1 GM VIAL) IVPB ONE (11:37)
[2017-09-28] MEDS ORDERED: MAGNESIUM 1GM/D5W - 1 GM/100 ML IVPB IVPB ONE (12:00)
[2017-09-28] MEDS: POTASSIUM CHLORIDE TABS 20 MEQ TABLET.ER (FP) PO SCH ×2 (13:36→21:45)
[2017-09-28] MEDS: PANTOPRAZOLE SODIUM 40 MG VIAL IVPUSH SCH (13:36)
[2017-09-28] MEDS: SUCRALFATE 1 GM/10 ML UNIT DOSE CUPS PO SCH ×3 (13:36→21:45)
[2017-09-28 17:20] LABS: COCAINE, UR NEGATIVE ng/ml (CUTOFF=300); METHADONE, UR NEGATIVE ng/ml (CUTOFF=300); OPIATES, URI NEGATIVE ng/ml (CUTOFF=300); PHENCYCLIDINE,URINE NEGATIVE ng/ml (CUTOFF=25); URINE AMPHETAMINES NEGATIVE ng/ml (CUTOFF=500); URINE BARBITURATES NEGATIVE ng/ml (CUTOFF=200)
[2017-09-28 17:22] LABS: URINE BENZODIAZEPINES POSITIVE ng/ml (CUTOFF=200)
[2017-09-28 17:38] LABS: BASO % 0.6 % (0-2.0); EOS % 0.9 % (0-4.5); LYMPH % 31.2 % (8-40); MCH 24.7 pg (25.7-33.7); MCHC 32.6 g/dl (32.0-35.9); MEAN CELL VOLUME 75.9 fl (80-96); MEAN PLT VOLUME 9.4 fl (7.5-11.1); MONO % 11.8 % (3.8-10.2); NEUT % 55.5 % (42.8-82.8); PLATELET COUNT 87 K/MM3 (134-434); RBC 4.87 M/mm3 (4.00-5.60); RDW 17.5 % (11.9-15.9); WHITE BLOOD COUNT 2.6 K/mm3 (4.0-10.0)
--- NOTE | 2017-09-28 17:51 | PN ---
Teaching Attending Note Name of Resident: Brett Quach ATTENDING PHYSICIAN STATEMENT I saw and evaluated the patient. I reviewed the resident's note and discussed the case with the resident. I agree with the resident's findings and plan as documented. SUBJECTIVE: pt seen at 11 am . denies any pain, feels tired and exhausted . no hallucinations OBJECTIVE: NAd , no nystagmus , no facial droop. dry MM , diaphoresis Cv: RRR Lungs: CTAB Abd: soft, NT, ND , NL BS Ext: no edema or erythema. mild tremor in hands ASSESSMENT AND PLAN: 53 y/o man with h/o alcohol abuse, anemia , recurrent upper GI bleed who presented with coffee ground emesis 1- Upper GI bleed . likely from alcohol abuse ( erosive gastritis or esophagitis ) . Hb stable and hemodynamically stable cont PPI observe and monitor Hb . if recurrence , then will need EGD 2- ETOH abuse with withdrawal: - cont librium - no signs of Wernicke's - cont folic and thiamine - if HB remain stable , then can cont detox and [facility] 3- hypomagnesemia : replete and recheck dispo : [facility]LOC. possible transfer to [facility] tomorrow if remains stable
--- NOTE | 2017-09-28 19:18 | PN ---
Physical Exam: SUBJECTIVE: Patient seen and examined at bedside. No new complaints. No more episodes of hematemesis overnight. OBJECTIVE: Vital Signs Period Temp Pulse Resp BP Sys/Boykin Pulse Ox Last 24 Hr 97.6 F-98.3 F 102-116 18-20 134-154/84-97 94-97 GENERAL: The patient is awake, alert, and fully oriented, in no acute distress. HEAD: Normal with no signs of trauma. NECK: Trachea midline, full range of motion, supple. LUNGS: Breath sounds equal, clear to auscultation bilaterally, no wheezes, no crackles, no accessory muscle use. HEART: Regular rhythm. Tachycardic. S1, S2 systolic murmur head at the right sternal border. ABDOMEN: Soft, nontender, nondistended, normoactive bowel sounds, no guarding, no rebound, no hepatosplenomegaly, no masses. EXTREMITIES: 2+ pulses, warm, well-perfused, no edema. NEUROLOGICAL: Cranial nerves II through X grossly intact. Normal speech, gait not observed. SKIN: Warm, dry, normal turgor, no rashes or lesions noted Laboratory Results - last 24 hr 09/27/17 09/27/17 09/27/17 19:27 19:27 19:27 WBC 5.2 D RBC 5.77 H Hgb 14.3 D Hct 43.8 MCV 76.0 L D MCH 24.8 L MCHC 32.6 RDW 18.0 H D Plt Count 167 D MPV 8.8 Neutrophils % 42.6 L D Lymphocytes % 48.6 H D Monocytes % 7.4 Eosinophils % 0.4 D Basophils % 1.0 PT with INR 12.40 INR 1.10 Sodium 142 Potassium 3.5 Chloride 107 Carbon Dioxide 27 Anion Gap 8 BUN 12 D Creatinine 0.6 L D Creat Clearance w eGFR > 60 Random Glucose 109 H Calcium 8.2 L Phosphorus Magnesium Total Bilirubin 0.7 AST 50 H D ALT 36 D Alkaline Phosphatase 76 Creatine Kinase Creatine Kinase Index CK-MB (CK-2) Troponin I Total Protein 8.6 H D Albumin 4.3 D Lipase Urine Color Urine Appearance Urine pH Ur Specific [place] Urine Protein Urine Glucose (UA) Urine Ketones Urine Blood Urine Nitrite Urine Bilirubin Urine Urobilinogen Ur Leukocyte Esterase Urine WBC (Auto) Urine RBC (Auto) Urine Bacteria Urine Mucus Opiates Screen Methadone Screen Barbiturate Screen Phencyclidine Screen Ur Amphetamines Screen MDMA (Ecstasy) Screen Benzodiazepines Screen Cocaine Screen U Marijuana (THC) Screen Alcohol, Quantitative Blood Type Antibody Screen 09/27/17 09/27/17 09/27/17 19:27 19:27 19:27 WBC RBC Hgb Hct MCV MCH MCHC RDW Plt Count MPV Neutrophils % Lymphocytes % Monocytes % Eosinophils % Basophils % PT with INR INR Sodium Potassium Chloride Carbon Dioxide Anion Gap BUN Creatinine Creat Clearance w eGFR Random Glucose Calcium Phosphorus Magnesium Total Bilirubin AST ALT Alkaline Phosphatase Creatine Kinase Creatine Kinase Index CK-MB (CK-2) Troponin I Total Protein Albumin Lipase 352 Urine Color Urine Appearance Urine pH Ur Specific [place] Urine Protein Urine Glucose (UA) Urine Ketones Urine Blood Urine Nitrite Urine Bilirubin Urine Urobilinogen Ur Leukocyte Esterase Urine WBC (Auto) Urine RBC (Auto) Urine Bacteria Urine Mucus Opiates Screen Methadone Screen Barbiturate Screen Phencyclidine Screen Ur Amphetamines Screen MDMA (Ecstasy) Screen Benzodiazepines Screen Cocaine Screen U Marijuana (THC) Screen Alcohol, Quantitative 440.50 H* Blood Type Cancelled Antibody Screen Cancelled 09/27/17 09/28/17 09/28/17 20:38 00:10 06:44 WBC 3.8 L RBC 4.88 Hgb 12.0 D Hct 37.5 MCV 76.8 L MCH 24.5 L MCHC 31.9 L RDW 17.4 H Plt Count 98 L D MPV 9.0 Neutrophils % Lymphocytes % Monocytes % Eosinophils % Basophils % PT with INR INR Sodium Potassium Chloride Carbon Dioxide Anion Gap BUN Creatinine Creat Clearance w eGFR Random Glucose Calcium Phosphorus Magnesium Total Bilirubin AST ALT Alkaline Phosphatase Creatine Kinase Creatine Kinase Index CK-MB (CK-2) Troponin I Total Protein Albumin Lipase Urine Color Yellow Urine Appearance Slcloudy Urine pH 5.0 Ur Specific [place] 1.023 Urine Protein 3+ H Urine Glucose (UA) Negative Urine Ketones 1+ H Urine Blood 1+ H Urine Nitrite Negative Urine Bilirubin Negative Urine Urobilinogen 2.0 Ur Leukocyte Esterase 1+ H Urine WBC (Auto) 92 Urine RBC (Auto) 4 Urine Bacteria Rare Urine Mucus Rare Opiates Screen Methadone Screen Barbiturate Screen Phencyclidine Screen Ur Amphetamines Screen MDMA (Ecstasy) Screen Benzodiazepines Screen Cocaine Screen U Marijuana (THC) Screen Alcohol, Quantitative Blood Type A POSITIVE Antibody Screen Negative 09/28/17 09/28/17 09/28/17 06:44 06:44 07:40 WBC RBC Hgb Hct MCV MCH MCHC RDW Plt Count MPV Neutrophils % Lymphocytes % Monocytes % Eosinophils % Basophils % PT with INR 12.90 INR 1.14 Sodium 144 Potassium 3.5 Chloride 107 Carbon Dioxide 23 Anion Gap 14 BUN 8 D Creatinine 0.4 L D Creat Clearance w eGFR > 60 Random Glucose 81 D Calcium 7.4 L Phosphorus 2.9 D Magnesium 1.7 L Total Bilirubin 0.7 AST 42 H ALT 30 Alkaline Phosphatase 62 Creatine Kinase 368 H Cancelled Creatine Kinase Index 0.5 CK-MB (CK-2) 2.179 Troponin I < 0.02 Cancelled Total Protein 7.3 Albumin 3.7 Lipase Urine Color Urine Appearance Urine pH Ur Specific [place] Urine Protein Urine Glucose (UA) Urine Ketones Urine Blood Urine Nitrite Urine Bilirubin Urine Urobilinogen Ur Leukocyte Esterase Urine WBC (Auto) Urine RBC (Auto) Urine Bacteria Urine Mucus Opiates Screen Methadone Screen Barbiturate Screen Phencyclidine Screen Ur Amphetamines Screen MDMA (Ecstasy) Screen Benzodiazepines Screen Cocaine Screen U Marijuana (THC) Screen Alcohol, Quantitative Blood Type Antibody Screen 09/28/17 09/28/17 16:30 17:15 WBC 2.6 L D RBC 4.87 Hgb 12.0 Hct 37.0 MCV 75.9 L MCH 24.7 L MCHC 32.6 RDW 17.5 H Plt Count 87 L MPV 9.4 Neutrophils % 55.5 D Lymphocytes % 31.2 D Monocytes % 11.8 H Eosinophils % 0.9 D Basophils % 0.6 PT with INR INR Sodium Potassium Chloride Carbon Dioxide Anion Gap BUN Creatinine Creat Clearance w eGFR Random Glucose Calcium Phosphorus Magnesium Total Bilirubin AST ALT Alkaline Phosphatase Creatine Kinase Creatine Kinase Index CK-MB (CK-2) Troponin I Total Protein Albumin Lipase Urine Color Urine Appearance Urine pH Ur Specific [place] Urine Protein Urine Glucose (UA) Urine Ketones Urine Blood Urine Nitrite Urine Bilirubin Urine Urobilinogen Ur Leukocyte Esterase Urine WBC (Auto) Urine RBC (Auto) Urine Bacteria Urine Mucus Opiates Screen Negative Methadone Screen Negative Barbiturate Screen Negative Phencyclidine Screen Negative Ur Amphetamines Screen Negative MDMA (Ecstasy) Screen Negative Benzodiazepines Screen Positive Cocaine Screen Negative U Marijuana (THC) Screen Negative Alcohol, Quantitative Blood Type Antibody Screen Active Medications Generic Name Dose Route Start Last Admin Trade Name Freq PRN Reason Stop Dose Admin Chlordiazepoxide HCl 25 mg 05/02/18 23:00 Librium - PO 09/29/17 17:01 [id number] ALPA Chlordiazepoxide HCl 15 mg 09/29/17 23:00 Librium - PO 09/30/17 17:01 [id number] ALPA Chlordiazepoxide HCl 25 mg 09/27/17 23:23 Librium - PO 09/30/17 23:22 Q4H PRN WITHDRAWAL(CONT SUBST) Folic Acid 1 mg 09/29/17 10:00 Folic Acid - PO DAILY ON LICENSE OF [facility] Sodium Chloride 1,000 mls @ 75 mls/hr 09/27/17 23:00 09/28/17 05:05 Normal Saline - IV 75 mls/hr ASDIR ALPA Administration Magnesium Oxide 400 mg 09/28/17 22:00 Mag-Ox - PO BID ALPA Nystatin 500,000 units 09/28/17 00:00 09/28/17 16:59 Nystatin Oral Suspension - PO 500,000 units Q6HPO ALPA Administration Pantoprazole Sodium 40 mg 09/28/17 13:15 09/28/17 13:36 Protonix Iv IVPUSH 40 mg DAILY ON LICENSE OF [facility] Administration Potassium Chloride 20 meq 09/28/17 13:15 09/28/17 13:36 K-Dur - PO 20 meq BID ALPA Administration Multivit/Folic Acid/Iron 1 tab 09/29/17 10:00 Vitamins (Sjr) - PO DAILY ON LICENSE OF [facility] Sucralfate 1 gm 09/28/17 14:00 09/28/17 16:59 Carafate Oral Suspension - PO 1 gm QID ON LICENSE OF [facility] Administration Thiamine HCl 100 mg 09/28/17 22:00 Vitamin B1 - PO [facility] ASSESSMENT/PLAN: The patient is a 53 yo M with pmhx Etoh abuse, htn, gastritis, previous UGIB . Who is admitted again for suspected UGIB. #Upper GI bleed -likely secondary to alcohol abuse -previous EGD showed Dieulafoy lesion and gastritis -PM CBC shows Hb stable at 12.0 -GI consult -clear liquid diet -Protonix 40 IV daily -monitor CBC -will observe the patient; if Hb drops or patient has another episode of hematemesis, GI will consider endoscopy. #Alcohol intoxication -on re-examination, patient diaphoretic and tremulous -librium protocol -Detox Consult: Dr. Helton -thiamine, folate #FEN -NS @ 75 -monitor lytes, replete PRN -clear liquids #PPTX -SCDs while patient may be bleeding -protonix 40 IV daily #Dispo -admit tele Visit type - Emergency Visit Emergency Visit: Yes ED Registration Date: 09/27/17 Care time: The patient presented to the Emergency Department on the above date and was hospitalized for further evaluation of their emergent condition. - New Patient This patient is new to me today: Yes Date on this admission: 09/28/17 - Critical Care Critical Care patient: No
[2017-09-28] MEDS: MAGNESIUM OXIDE 400 MG TABLET (FP) PO SCH (21:45)
[2017-09-28] MEDS: THIAMINE HCL 100 MG TABLET (FP) PO SCH (21:45)
[2017-09-28] MEDS ORDERED: chlordiazePOXIDE HCL 25 MG CAPSULE PO SCH (23:00)
[2017-09-29] MEDS ORDERED: ACETAMINOPHEN 325 MG TABLET (FP) PO ONE (01:43)
[2017-09-29] MEDS: chlordiazePOXIDE HCL 25 MG CAPSULE PO SCH ×4 (05:50→18:14)
[2017-09-29] MEDS: NYSTATIN 500,000 UNITS/5 ML SUSPENSION PO SCH ×3 (05:50→18:13)
[2017-09-29 07:58] LABS: HEMATOCRIT 40.9 % (35.4-49); HEMOGLOBIN 13.2 GM/dL (11.7-16.9); MCH 24.7 pg (25.7-33.7); MCHC 32.3 g/dl (32.0-35.9); MEAN CELL VOLUME 76.3 fl (80-96); MEAN PLT VOLUME 8.9 fl (7.5-11.1); PLATELET COUNT 72 K/MM3 (134-434); RBC 5.35 M/mm3 (4.00-5.60); RDW 17.2 % (11.9-15.9); WHITE BLOOD COUNT 3.4 K/mm3 (4.0-10.0)
--- NOTE | 2017-09-29 08:14 | PN ---
Physical Exam: SUBJECTIVE: Patient seen and examined at bedside. Patient c/o abdominal pain and diarrhea today. No chest pain, no SOB. No events on tele. No further episodes of vomiting. OBJECTIVE: Vital Signs Period Temp Pulse Resp BP Sys/Boykin Pulse Ox Last 24 Hr 97.4 F-98.8 F 84-112 18-20 132-158/83-88 94-96 GENERAL: The patient is awake, alert, and fully oriented, in no acute distress. HEAD: Normal with no signs of trauma. NECK: Trachea midline, full range of motion, supple. LUNGS: Breath sounds equal, clear to auscultation bilaterally, no wheezes, no crackles, no accessory muscle use. HEART: Regular rate and rhythm. S1, S2 heard. systolic murmur heard at the right sternal border. ABDOMEN: Soft, nondistended, normoactive bowel sounds. Tenderness to palpation in the epigastrium. no guarding, no rebound, no hepatosplenomegaly, no masses. EXTREMITIES: 2+ pulses, warm, well-perfused, no edema. NEUROLOGICAL: Cranial nerves II through X grossly intact. Normal speech, gait not observed. SKIN: Warm, dry, normal turgor, no rashes or lesions noted Laboratory Results - last 24 hr 09/28/17 09/28/17 09/28/17 06:44 06:44 06:44 WBC 3.8 L RBC 4.88 Hgb 12.0 D Hct 37.5 MCV 76.8 L MCH 24.5 L MCHC 31.9 L RDW 17.4 H Plt Count 98 L D MPV 9.0 Neutrophils % Lymphocytes % Monocytes % Eosinophils % Basophils % PT with INR INR Sodium 144 Potassium 3.5 Chloride 107 Carbon Dioxide 23 Anion Gap 14 BUN 8 D Creatinine 0.4 L D Creat Clearance w eGFR > 60 Random Glucose 81 D Calcium 7.4 L Phosphorus 2.9 D Magnesium 1.7 L Total Bilirubin 0.7 AST 42 H ALT 30 Alkaline Phosphatase 62 Creatine Kinase 368 H Cancelled Creatine Kinase Index 0.5 CK-MB (CK-2) 2.179 Troponin I < 0.02 Cancelled Total Protein 7.3 Albumin 3.7 Opiates Screen Methadone Screen Barbiturate Screen Phencyclidine Screen Ur Amphetamines Screen MDMA (Ecstasy) Screen Benzodiazepines Screen Cocaine Screen U Marijuana (THC) Screen 09/28/17 09/28/17 09/28/17 07:40 16:30 17:15 WBC 2.6 L D RBC 4.87 Hgb 12.0 Hct 37.0 MCV 75.9 L MCH 24.7 L MCHC 32.6 RDW 17.5 H Plt Count 87 L MPV 9.4 Neutrophils % 55.5 D Lymphocytes % 31.2 D Monocytes % 11.8 H Eosinophils % 0.9 D Basophils % 0.6 PT with INR 12.90 INR 1.14 Sodium Potassium Chloride Carbon Dioxide Anion Gap BUN Creatinine Creat Clearance w eGFR Random Glucose Calcium Phosphorus Magnesium Total Bilirubin AST ALT Alkaline Phosphatase Creatine Kinase Creatine Kinase Index CK-MB (CK-2) Troponin I Total Protein Albumin Opiates Screen Negative Methadone Screen Negative Barbiturate Screen Negative Phencyclidine Screen Negative Ur Amphetamines Screen Negative MDMA (Ecstasy) Screen Negative Benzodiazepines Screen Positive Cocaine Screen Negative U Marijuana (THC) Screen Negative Active Medications Generic Name Dose Route Start Last Admin Trade Name Freq PRN Reason Stop Dose Admin Chlordiazepoxide HCl 25 mg 09/28/17 23:00 09/29/17 05:50 Librium - PO 09/29/17 17:01 25 mg [id number] ALPA Administration Chlordiazepoxide HCl 15 mg 09/29/17 23:00 Librium - PO 09/30/17 17:01 [id number] ALPA Chlordiazepoxide HCl 25 mg 09/27/17 23:23 Librium - PO 09/30/17 23:22 Q4H PRN WITHDRAWAL(CONT SUBST) Folic Acid 1 mg 09/29/17 10:00 Folic Acid - PO DAILY ALPA Sodium Chloride 1,000 mls @ 75 mls/hr 09/27/17 23:00 09/28/17 23:03 Normal Saline - IV 75 mls/hr ASDIR ALPA Administration Magnesium Oxide 400 mg 09/28/17 22:00 09/28/17 21:45 Mag-Ox - PO 400 mg BID ALPA Administration Nystatin 500,000 units 09/28/17 00:00 09/29/17 05:50 Nystatin Oral Suspension - PO 500,000 units Q6HPO ALPA Administration Pantoprazole Sodium 40 mg 09/28/17 13:15 09/28/17 13:36 Protonix Iv IVPUSH 40 mg DAILY ALPA Administration Potassium Chloride 20 meq 09/28/17 13:15 09/28/17 21:45 K-Dur - PO 20 meq BID ALPA Administration Multivit/Folic Acid/Iron 1 tab 09/29/17 10:00 Vitamins (Sjr) - PO DAILY ALPA Sucralfate 1 gm 09/28/17 14:00 09/28/17 21:45 Carafate Oral Suspension - PO 1 gm QID ALPA Administration Thiamine HCl 100 mg 09/28/17 22:00 09/28/17 21:45 Vitamin B1 - PO 100 mg HS ALPA Administration ASSESSMENT/PLAN: The patient is a 53 yo M with pmhx Etoh abuse, htn, gastritis, previous UGIB . Who is admitted again for suspected UGIB. #Upper GI bleed -likely secondary to alcohol abuse -previous EGD showed Dieulafoy lesion and gastritis -CBC stable this AM; no indication for EGD at this time #Alcohol withdrawal -CIWA 6 this am -librium protocol -Detox Consult: Dr. Helton -thiamine, folate #UTI -pt complaining of dysuria -UA indicative of infection -will obtain urine CX -will begin ceftriaxone 1g daily (09/29, day 1) after ucx obtained. will continue for 7 days of ABX total #FEN -NS @ 75 -monitor lytes, replete PRN -repleting potassium and phosphorus -advancing clear liquids to regular diet #PPTX -SCDs while patient may be bleeding -protonix 40 IV daily #Dispo -admit tele -DC planning once urine culture results back. Will c/w detox here and likely dc to [facility] Visit type - Emergency Visit Emergency Visit: Yes ED Registration Date: 09/27/17 Care time: The patient presented to the Emergency Department on the above date and was hospitalized for further evaluation of their emergent condition. - New Patient This patient is new to me today: No - Critical Care Critical Care patient: No
[2017-09-29 09:17] LABS: MAGNESIUM 1.9 mg/dL (1.8-2.4); PHOSPHOROUS 2.3 mg/dL (2.5-4.9)
[2017-09-29 09:24] LABS: ANION GAP 12 (8-16); BLOOD UREA NITROGEN 6 mg/dL (7-18); CALCIUM 8.1 mg/dL (8.5-10.1); CHLORIDE 99 mmol/L (98-107); CO2 25 mmol/L (21-32); CREATININE 0.4 mg/dL (0.7-1.3); GLUCOSE,RANDOM 83 mg/dL (74-106); POTASSIUM 3.1 mmol/L (3.5-5.1); SODIUM 136 mmol/L (136-145)
[2017-09-29] MEDS: SODIUM CHLORIDE 1,000 ML IV SCH (09:40)
[2017-09-29] MEDS: SUCRALFATE 1 GM/10 ML UNIT DOSE CUPS PO SCH ×4 (09:41→22:36)
[2017-09-29] MEDS: PANTOPRAZOLE SODIUM 40 MG VIAL IVPUSH SCH (09:41)
[2017-09-29] MEDS: MAGNESIUM OXIDE 400 MG TABLET (FP) PO SCH ×2 (09:41→22:36)
[2017-09-29] MEDS: FOLIC ACID 1 MG TABLET (FP) PO SCH (09:41)
[2017-09-29] MEDS: POTASSIUM CHLORIDE TABS 20 MEQ TABLET.ER (FP) PO SCH ×2 (09:41→22:36)
[2017-09-29] MEDS ORDERED: POTASSIUM CHLORIDE TABS 20 MEQ TABLET.ER (FP) PO ONE (11:09)
--- NOTE | 2017-09-29 11:16 | PN ---
Progress Note, Physician History of Present Illness: No acute events overnight. No stigmata of gastric intestinal bleeding. Hemoglobin remains stable. - Current Medication List Current Medications: Active Medications Chlordiazepoxide HCl (Librium -) 25 mg PO [id number] [facility] Stop: 09/29/17 17:01 Last Admin: 09/29/17 09:41 Dose: 25 mg Chlordiazepoxide HCl (Librium -) 15 mg PO [id number] ALPA Stop: 09/30/17 17:01 Chlordiazepoxide HCl (Librium -) 25 mg PO Q4H PRN PRN Reason: WITHDRAWAL(CONT SUBST) Stop: 09/30/17 23:22 Folic Acid (Folic Acid -) 1 mg PO DAILY [facility] Last Admin: 09/29/17 09:41 Dose: 1 mg Sodium Chloride (Normal Saline -) 1,000 mls @ 75 mls/hr IV ASDIR [facility] Last Admin: 09/29/17 09:40 Dose: 75 mls/hr Ceftriaxone Sodium 1 gm/ (Dextrose) 50 mls @ 100 mls/hr IVPB DAILY [facility] PRN Reason: Protocol Magnesium Oxide (Mag-Ox -) 400 mg PO BID [facility] Last Admin: 09/29/17 09:41 Dose: 400 mg Nystatin (Nystatin Oral Suspension -) 500,000 units PO Q6HPO [facility] Last Admin: 09/29/17 05:50 Dose: 500,000 units Pantoprazole Sodium (Protonix Iv) 40 mg IVPUSH DAILY [facility] Last Admin: 09/29/17 09:41 Dose: 40 mg Potassium Chloride (K-Dur -) 20 meq PO BID [facility] Last Admin: 09/29/17 09:41 Dose: 20 meq Potassium Chloride (K-Dur -) 20 meq PO ONCE ONE Stop: 09/29/17 11:10 Potassium Phos/Sodium Phos (Phos-Nak Packet -) 1 packet PO TID [facility] Multivit/Folic Acid/Iron ( Vitamins (Sjr) -) 1 tab PO DAILY [facility] Sucralfate (Carafate Oral Suspension -) 1 gm PO QID [facility] Last Admin: 09/29/17 09:41 Dose: 1 gm Thiamine HCl (Vitamin B1 -) 100 mg PO HS [facility] Last Admin: 09/28/17 21:45 Dose: 100 mg - Objective Vital Signs: Vital Signs Temperature 98 F 09/29/17 08:20 Pulse Rate 87 0503/18 08:20 Respiratory Rate 18 09/29/17 08:20 Blood Pressure 141/97 09/29/17 08:20 O2 Sat by Pulse Oximetry (%) 97 09/29/17 08:15 Constitutional: Yes: No Distress, Calm Gastrointestinal: Yes: Soft. No: Melena, Rectal Bleeding, Tenderness, Vomiting Neurological: Yes: [facility] Labs: CBC, BMP 09/29/17 06:45 09/29/17 06:45 INR, PTT INR 1.14 (0.82-1.09) 09/28/17 07:40 Laboratory Last Values WBC 3.4 K/mm3 (4.0-10.0) L D 09/29/17 06:45 RBC 5.35 M/mm3 (4.00-5.60) 09/29/17 06:45 Hgb 13.2 GM/dL (11.7-16.9) 09/29/17 06:45 Hct 40.9 % (35.4-49) 09/29/17 06:45 MCV 76.3 fl (80-96) L 09/29/17 06:45 MCH 24.7 pg (25.7-33.7) L 09/29/17 06:45 MCHC 32.3 g/dl (32.0-35.9) 09/29/17 06:45 RDW 17.2 % (11.9-15.9) H 09/29/17 06:45 Plt Count 72 K/MM3 (134-434) L 09/29/17 06:45 MPV 8.9 fl (7.5-11.1) 09/29/17 06:45 Neutrophils % 55.5 % (42.8-82.8) D 09/28/17 17:15 Lymphocytes % 31.2 % (8-40) D 09/28/17 17:15 Monocytes % 11.8 % (3.8-10.2) H 09/28/17 17:15 Eosinophils % 0.9 % (0-4.5) D 09/28/17 17:15 Basophils % 0.6 % (0-2.0) 09/28/17 17:15 PT with INR 12.90 SEC (9.7-13.0) 09/28/17 07:40 INR 1.14 (0.82-1.09) 09/28/17 07:40 Sodium 136 mmol/L (136-145) 09/29/17 06:45 Potassium 3.1 mmol/L (3.5-5.1) L 09/29/17 06:45 Chloride 99 mmol/L (98-107) 09/29/17 06:45 Carbon Dioxide 25 mmol/L (21-32) 09/29/17 06:45 Anion Gap 12 (8-16) 09/29/17 06:45 BUN 6 mg/dL (7-18) L D 09/29/17 06:45 Creatinine 0.4 mg/dL (0.7-1.3) L 09/29/17 06:45 Creat Clearance w eGFR > 60 (>60) 09/28/17 06:44 Random Glucose 83 mg/dL (74-106) 09/29/17 06:45 Calcium 8.1 mg/dL (8.5-10.1) L 09/29/17 06:45 Phosphorus 2.3 mg/dL (2.5-4.9) L D 09/29/17 06:45 Magnesium 1.9 mg/dL (1.8-2.4) 09/29/17 06:45 Total Bilirubin 0.7 mg/dL (0.2-1.0) 09/28/17 06:44 AST 42 U/L (15-37) H 09/28/17 06:44 ALT 30 U/L (12-78) 09/28/17 06:44 Alkaline Phosphatase 62 U/L (45-117) 09/28/17 06:44 Creatine Kinase 368 IU/L (39-308) H 09/28/17 06:44 Creatine Kinase Index 0.5 % (0.0-5.0) 09/28/17 06:44 CK-MB (CK-2) 2.179 ng/mL (0.5-3.6) 09/28/17 06:44 Troponin I < 0.02 ng/ml (0.00-0.05) 09/28/17 06:44 Total Protein 7.3 g/dl (6.4-8.2) 09/28/17 06:44 Albumin 3.7 g/dl (3.4-5.0) 09/28/17 06:44 Lipase 352 U/L (73-393) 09/27/17 19:27 Urine Color Yellow 09/28/17 00:10 Urine Appearance Slcloudy 09/28/17 00:10 Urine pH 5.0 (5.0-8.0) 09/28/17 00:10 Ur Specific [place] 1.023 (1.001-1.035) 09/28/17 00:10 Urine Protein 3+ (NEGATIVE) H 09/28/17 00:10 Urine Glucose (UA) Negative (NEGATIVE) 09/28/17 00:10 Urine Ketones 1+ (NEGATIVE) H 09/28/17 00:10 Urine Blood 1+ (NEGATIVE) H 09/28/17 00:10 Urine Nitrite Negative (NEGATIVE) 09/28/17 00:10 Urine Bilirubin Negative (<2.0 mg/dL) 09/28/17 00:10 Urine Urobilinogen 2.0 mg/dL (0.2-1.0) 09/28/17 00:10 Ur Leukocyte Esterase 1+ (NEGATIVE) H 09/28/17 00:10 Urine WBC (Auto) 92 /hpf (3-5) 09/28/17 00:10 Urine RBC (Auto) 4 /hpf (0-3) 09/28/17 00:10 Urine Bacteria Rare /hpf (NONE SEEN) 09/28/17 00:10 Urine Mucus Rare 09/28/17 00:10 Opiates Screen Negative ng/ml (IQPEOL=241) 09/28/17 16:30 Methadone Screen Negative ng/ml (YZHZGF=661) 09/28/17 16:30 Barbiturate Screen Negative ng/ml (NCZDGZ=972) 09/28/17 16:30 Phencyclidine Screen Negative ng/ml (CUTOFF=25) 09/28/17 16:30 Ur Amphetamines Screen Negative ng/ml (DPXUUN=306) 09/28/17 16:30 MDMA (Ecstasy) Screen Negative ng/ml (YDBTGJ=796) 09/28/17 16:30 Benzodiazepines Screen Positive ng/ml (JRCCPR=816) 09/28/17 16:30 Cocaine Screen Negative ng/ml (HUUITI=793) 09/28/17 16:30 U Marijuana (THC) Screen Negative ng/ml (CUTOFF=50) 09/28/17 16:30 Alcohol, Quantitative 440.50 mg/dL (0.0-5.0) H* 09/27/17 19:27 Blood Type A POSITIVE 09/27/17 20:38 Antibody Screen Negative 09/27/17 20:38 Problem List - Problems (1) Erosive esophagitis Code(s): K22.10 - ULCER OF ESOPHAGUS WITHOUT BLEEDING (2) Hematemesis Code(s): K92.0 - HEMATEMESIS Assessment/Plan Alcohol withdrawal protocol. Protonix 40 mg IV piggyback twice a day. Carafate 1 g by mouth 4 times a day. Advance diet. Observe.
--- NOTE | 2017-09-29 11:20 | PN ---
Teaching Attending Note Name of Resident: Ezra Becerra ATTENDING PHYSICIAN STATEMENT I saw and evaluated the patient. I reviewed the resident's note and discussed the case with the resident. I agree with the resident's findings and plan as documented. SUBJECTIVE: has dysuria , no fever or chills., has abd pain. OBJECTIVE: NAd , no nystagmus , no facial droop. Cv: RRR Lungs: CTAB Abd: soft, NT, TTP in suprapubic area Ext: no edema or erythema. no tremor today gait : NL ASSESSMENT AND PLAN: 53 y/o man with h/o alcohol abuse, anemia , recurrent upper GI bleed who presented with coffee ground emesis 1- Upper GI bleed . stable HB cont PPI . can switch to po tomorrow observe and monitor Hb . if recurrence , then will need EGD advance diet to regular 2- ETOH abuse with withdrawal: - cont librium - no signs of Wernicke's - cont folic and thiamine 3-Dysuria : possible complicated UTI with pyuria on UA - get urine cx - start ceftriaxone HLOC
[2017-09-29] MEDS: PRENATAL VITAMINS W/ FOLIC ACID TABLET (FP) PO SCH (13:25)
[2017-09-29] MEDS: NAPH,MB-DB/K PH,MBDB POWDER PACKET PO SCH ×2 (13:27→22:36)
[2017-09-29] MEDS ORDERED: DEXTROSE 5%-WATER - 50 ML IVPB ONE (18:08)
[2017-09-29] MEDS ORDERED: cefTRIAXone SODIUM 1 GM VIAL ONE (18:08)
[2017-09-29] MEDS: CEFTRIAXONE 1 GM in DEXTROSE 5%-WATER - 50 ML IVPB SCH (18:13)
[2017-09-29] MEDS: chlordiazePOXIDE 5 MG CAPSULE PO SCH (22:36)
[2017-09-29] MEDS: THIAMINE HCL 100 MG TABLET (FP) PO SCH (22:36)
[2017-09-29] MEDS ORDERED: chlordiazePOXIDE 5 MG CAPSULE PO SCH (23:00)
[2017-09-30] MEDS: SODIUM CHLORIDE 1,000 ML IV SCH (06:24)
[2017-09-30] MEDS: NYSTATIN 500,000 UNITS/5 ML SUSPENSION PO SCH ×3 (06:24→11:16)
[2017-09-30] MEDS: chlordiazePOXIDE 5 MG CAPSULE PO SCH ×3 (06:24→17:11)
[2017-09-30] MEDS: NAPH,MB-DB/K PH,MBDB POWDER PACKET PO SCH ×2 (06:25→13:55)
[2017-09-30 07:28] LABS: ANION GAP 7 (8-16); BLOOD UREA NITROGEN 8 mg/dL (7-18); CALCIUM 8.1 mg/dL (8.5-10.1); CHLORIDE 103 mmol/L (98-107); CO2 27 mmol/L (21-32); CREATININE 0.4 mg/dL (0.7-1.3); GLUCOSE,RANDOM 120 mg/dL (74-106); MAGNESIUM 2.1 mg/dL (1.8-2.4); PHOSPHOROUS 2.5 mg/dL (2.5-4.9); POTASSIUM 3.5 mmol/L (3.5-5.1); SODIUM 137 mmol/L (136-145)
[2017-09-30 07:31] LABS: HEMATOCRIT 40.1 % (35.4-49); HEMOGLOBIN 12.7 GM/dL (11.7-16.9); MCH 24.7 pg (25.7-33.7); MCHC 31.8 g/dl (32.0-35.9); MEAN CELL VOLUME 77.8 fl (80-96); MEAN PLT VOLUME 9.3 fl (7.5-11.1); PLATELET COUNT 65 K/MM3 (134-434); RBC 5.16 M/mm3 (4.00-5.60); RDW 17.4 % (11.9-15.9); WHITE BLOOD COUNT 2.7 K/mm3 (4.0-10.0)
[2017-09-30] MEDS: SUCRALFATE 1 GM/10 ML UNIT DOSE CUPS PO SCH ×3 (11:16→17:11)
[2017-09-30] MEDS: MAGNESIUM OXIDE 400 MG TABLET (FP) PO SCH (11:30)
[2017-09-30] MEDS: FOLIC ACID 1 MG TABLET (FP) PO SCH (11:30)
[2017-09-30] MEDS: POTASSIUM CHLORIDE TABS 20 MEQ TABLET.ER (FP) PO SCH (11:31)
[2017-09-30] MEDS ORDERED: DEXTROSE 5%-WATER - 50 ML IVPB ONE (13:00)
[2017-09-30] MEDS ORDERED: cefTRIAXone SODIUM 1 GM VIAL ONE (13:00)
--- NOTE | 2017-09-30 13:48 | PN ---
Addendum entered and electronically signed by Ezra Becerra, 09/30/17 15:17: UPDATE 3:17pm: Was Paged by the nurse to bedside because the patient wanted to sign out AMA. This jingle writer and Dr. Martinez discussed the matter with the patient via [employer] (professor of family medicine [place], [id number]). Patient stated that he wanted to leave the hospital to work and support his family. Explained the risks and benefits of signing out including morbidity and mortality. Patient elected to stay in the hospital at this time. Addendum entered and electronically signed by Ezra Becerra, 09/30/17 14:16: Patient complaining of Chest pain. ordered stat troponin and EKG. Will follow. Original Note: Physical Exam: SUBJECTIVE: Patient seen and examined at bedside. No new complaints. The patient 's abdominal pain is resolved today. OBJECTIVE: Vital Signs Period Temp Pulse Resp BP Sys/Boykin Pulse Ox Last 24 Hr 97.8 F-98.8 F 81-106 18-20 131-160/81-93 95 GENERAL: The patient is awake, alert, and fully oriented, in no acute distress. HEAD: Normal with no signs of trauma. NECK: Trachea midline, full range of motion, supple. LUNGS: Breath sounds equal, clear to auscultation bilaterally, no wheezes, no crackles, no accessory muscle use. HEART: Regular rate and rhythm. S1, S2 heard. ABDOMEN: Soft, nontender, nondistended, normoactive bowel sounds. no guarding, no rebound, no hepatosplenomegaly, no masses. EXTREMITIES: 2+ pulses, warm, well-perfused, no edema. NEUROLOGICAL: Cranial nerves II through X grossly intact. Normal speech, gait not observed. SKIN: Warm, dry, normal turgor, no rashes or lesions noted Laboratory Results - last 24 hr 09/28/17 09/30/17 09/30/17 06:44 06:30 06:30 WBC 2.7 L RBC 5.16 Hgb 12.7 Hct 40.1 MCV 77.8 L MCH 24.7 L MCHC 31.8 L RDW 17.4 H Plt Count 65 L MPV 9.3 Sodium 137 Potassium 3.5 Chloride 103 Carbon Dioxide 27 Anion Gap 7 L BUN 8 D Creatinine 0.4 L Random Glucose 120 H D Calcium 8.1 L Phosphorus 2.5 Magnesium 2.1 HIV 1&2 Ag/Ab, 4th Gen Non reactive Active Medications Generic Name Dose Route Start Last Admin Trade Name Hemant PRN Reason Stop Dose Admin Chlordiazepoxide HCl 15 mg 09/29/17 23:00 09/30/17 11:31 Librium - PO 09/30/17 17:01 15 mg [id number] ALPA Administration Chlordiazepoxide HCl 25 mg 09/27/17 23:23 Librium - PO 09/30/17 23:22 Q4H PRN WITHDRAWAL(CONT SUBST) Folic Acid 1 mg 09/29/17 10:00 09/30/17 11:30 Folic Acid - PO 1 mg DAILY ALPA Administration Sodium Chloride 1,000 mls @ 75 mls/hr 09/27/17 23:00 09/30/17 06:24 Normal Saline - IV 75 mls/hr ASDIR ALPA Administration Ceftriaxone Sodium 1 gm/ 50 mls @ 100 mls/hr 09/29/17 11:20 09/29/17 18:13 Dextrose IVPB 100 mls/hr DAILY ALPA Administration Protocol Magnesium Oxide 400 mg 09/28/17 22:00 09/30/17 11:30 Mag-Ox - PO 400 mg BID ALPA Administration Nystatin 500,000 units 09/28/17 00:00 09/30/17 11:16 Nystatin Oral Suspension - PO 500,000 units Q6HPO ALPA Administration Pantoprazole Sodium 40 mg 09/28/17 13:15 09/29/17 09:41 Protonix Iv IVPUSH 40 mg DAILY ALPA Administration Potassium Chloride 20 meq 09/28/17 13:15 09/30/17 11:31 K-Dur - PO 20 meq BID ALPA Administration Potassium Phos/Sodium Phos 1 packet 09/29/17 14:00 09/30/17 06:25 Phos-Nak Packet - PO 1 packet TID ALPA Administration Multivit/Folic Acid/Iron 1 tab 09/29/17 10:00 09/29/17 13:25 Vitamins (Sjr) - PO Not Given DAILY ALPA Sucralfate 1 gm 09/28/17 14:00 09/30/17 11:16 Carafate Oral Suspension - PO 1 gm QID ALPA Administration Thiamine HCl 100 mg 09/28/17 22:00 09/29/17 22:36 Vitamin B1 - PO 100 mg HS ALPA Administration ASSESSMENT/PLAN: The patient is a 53 yo M with pmhx Etoh abuse, htn, gastritis, previous UGIB . Who is admitted again for suspected UGIB. #Upper GI bleed- resolved -likely secondary to alcohol abuse -CBC stable; no indication for EGD at this time #Alcohol withdrawal -CIWA 6 this am -librium protocol -Detox Consult: Dr. Helton -thiamine, folate -will complete detox in 2 days. #UTI -pt complaining of dysuria -UA indicative of infection -urine CX pending. -c/w ceftriaxone 1g daily (09/29, day 2 of 7) #FEN -no indication for fluids at this time. -monitor lytes, replete PRN -repleting potassium and phosphorus -regular diet #PPTX -SCDs while patient may be bleeding -protonix 40 IV daily #Dispo -admit tele -DC planning once urine culture results back. -patient will need outpatient rehab referral Visit type - Emergency Visit Emergency Visit: Yes ED Registration Date: 09/27/17 Care time: The patient presented to the Emergency Department on the above date and was hospitalized for further evaluation of their emergent condition. - New Patient This patient is new to me today: No - Critical Care Critical Care patient: No
[2017-09-30] MEDS: PRENATAL VITAMINS W/ FOLIC ACID TABLET (FP) PO SCH (13:54)
[2017-09-30] MEDS: PANTOPRAZOLE SODIUM 40 MG VIAL IVPUSH SCH (13:55)
[2017-09-30] MEDS: CEFTRIAXONE 1 GM in DEXTROSE 5%-WATER - 50 ML IVPB SCH (13:55)
--- NOTE | 2017-09-30 18:51 | PN ---
Teaching Attending Note Name of Resident: Ezra Becerra ATTENDING PHYSICIAN STATEMENT I saw and evaluated the patient. I reviewed the resident's note and discussed the case with the resident. I agree with the resident's findings and plan as documented. SUBJECTIVE: No fever or chills. reported CP while feeling upset. denies SOB. wanted to leave the hospital OBJECTIVE: upset , crying Cv: RRR Lungs: CTAB Abd: soft, NT, Nd , NL BS Ext: no edema or erythema. no tremor ASSESSMENT AND PLAN: 53 y/o man with h/o alcohol abuse, anemia , recurrent upper GI bleed who presented with coffee ground emesis 1- Upper GI bleed . stable HB switch to po PPI regular diet f/u as outp t dc IVF 2- ETOH abuse with withdrawal: - cont librium - no signs of Wernicke's - cont folic and thiamine 3-Complicated UTI . - follow urine cx - cont ceftriaxone day 2 4- Cp : likely due to anxiety - EKG with no ischemic changes . trop NL 5- hypokalemia , cont supplemental K and monitor level HLOC
[2017-09-30 20:29] VITALS: BP 155/88; PULSE 89; TEMP 98.8
--- NOTE | 2017-10-01 09:46 | DS ---
Physical Exam: HOSPITAL COURSE: Date of Admission:09/27/17 The patient is a 53 yo chinese speaking M w/PMH ETOH abuse, anemia, HTN, and previous admissions for upper GI bleeding (previous EGD showed Dieulafoy lesion and gastritis) who presented to the emergency department c/o a 3 day history of epigastric pain associated with bloody vomiting. In the ED, his CBC and CMP were both unremarkable, His alcohol level was found to be 440, and a UA showed 1 + blood, 1+ leukocyte esterase, 1+ ketones, 92 WBC and rare bacteria. The patient was admitted for further workup and treatment. GI was consulted. Addiction medicine was consulted. Patient had a CIWA score of 19 on admission with nervousness, diaphoresis, psychomotor agitation, nausea and vomiting. The patient was treated with a banana bag, a librium taper, Zofran , protonix, carafate, thiamine, folic acid, supplemental phosphorus, supplemental potassium and supplemental magnesium and Ceftriaxone. A chest Xray was unchanged from his previous ones. A RUQ US showed diffuse fatty infiltration of the liver. The patient improved on this treatment. His symptoms improved. His CIWA score decreased to 6. On Tuesday, the patient was found in possession of his neighbor's cell phone. When confronted, the patient became upset and began to complain of chest pain. EKG and troponin drawn at this time were both negative. During this time, the patient expressed the desire to leave AMA. The patient was found to be A&O x3. Upon further discussion of the potential risks of singin out AMA through [employer] translation, the patient decided to stay and complete his detoxification. Several hours later, per nursing records, the patient decided to sign out AMA being fully aware of the risks of doing so. Date of Discharge: 10/01/17 Minutes to complete discharge: 66 Discharge Summary Reason For Visit: ALCOHOL ABUSE/TACHYCARDIA/GI HEMORRHAGE - Instructions Disposition: AGAINST MEDICAL ADVICE - Home Medications Comprehensive Discharge Medication List: Ambulatory Orders Ferrous Sulfate [Feosol] 325 mg PO DAILY@0800 #30 tab 05/31/17 Folic Acid - 1 mg PO DAILY #30 tablet 05/31/17 Thiamine HCl [Vitamin B1 -] 100 mg PO DAILY #30 tablet 05/31/17 Pantoprazole Sodium [Protonix] 40 mg PO DAILY #56 tablet. 07/18/17 Sucralfate [Carafate] 1 gm PO QID 09/28/17 This patient is new to me today: No Emergency Visit: Yes ED Registration Date: 09/27/17 Care time: The patient presented to the Emergency Department on the above date and was hospitalized for further evaluation of their emergent condition. Critical Care patient: No - Discharge Referral Referred to [facility] Med P.C.: No
[2017-10-01] MEDS ORDERED: PANTOPRAZOLE 40 MG TABLET (FP) PO SCH (10:00)
--- NOTE | 2017-10-01 14:36 | EKG ---
Test Reason : Blood Pressure : / mmHG Vent. Rate : 106 BPM Atrial Rate : 106 BPM P-R Int : 150 ms QRS Dur : 086 ms QT Int : 346 ms P-R-T Axes : 027 023 028 degrees QTc Int : 459 ms SINUS TACHYCARDIA OTHERWISE NORMAL ECG WHEN COMPARED WITH ECG OF 27-SEP-2017 19:37, NO SIGNIFICANT CHANGE WAS FOUND Confirmed by MD Ball Daniel ([id number]) on 10/01/2017 2:35:35 PM Referred By: Confirmed By:Jremaine Ball MD
== END 2017-09-30 18:30 | disposition left against medical advice (07) | DRG 243 ==
LOC: JER 18:24 → JERBED 21:45 → OBSVTOIN 22:49 → J4W 09-28 04:10
PROVIDERS: ADMIT Internal Medicine; ATTEND Internal Medicine
PROC: HZ2ZZZZ Detoxification Services for Substance Abuse Treatment (ICD-10-PCS; principal; 2017-09-28)
DX: K22.11 Ulcer of esophagus with bleeding (principal); I10 Essential (primary) hypertension; D64.9 Anemia, unspecified; R00.0 Tachycardia, unspecified; F10.230 Alcohol dependence with withdrawal, uncomplicated; Y90.8 Blood alcohol level of 240 mg/100 ml or more; K92.0 Hematemesis; B37.0 Candidal stomatitis; E83.42 Hypomagnesemia; N39.0 Urinary tract infection, site not specified; R07.89 Other chest pain; F41.8 Other specified anxiety disorders; E87.6 Hypokalemia; I85.01 Esophageal varices with bleeding
CPT/HCPCS: 36415; 71045-TC-FY; 76700-TC; 80048; 80053; 80307; 81003; 81015; 82550; 82553; 83690; 83735; 84100; 84484; 85025; 85027; 85610; 86850; 86900; 86901; 87086; 93005; 93010; 97116-GP; 97161-GP; 99283-25; G0378; J7030

== ENCOUNTER 2018-03-05 15:54 | Inpatient (IN) | payer OTHER ==
[2018-03-05 16:05] VITALS: BMI 25.8
[2018-03-05] MEDS ORDERED: SODIUM CHLORIDE 1,000 ML IV STA (16:27)
[2018-03-05] MEDS ORDERED: PANTOPRAZOLE SODIUM 40 MG VIAL IVPUSH ONE (16:27)
[2018-03-05] MEDS ORDERED: ONDANSETRON 4 MG/2 ML VIAL IVPUSH ONE (16:27)
--- NOTE | 2018-03-05 16:28 | PDOC ---
Attending Attestation - Physicial Exam PE: 03/05/18 22:21 GENERAL: (+) diaphoretic. Well developed, well nourished. Awake and alert. No acute distress. HEENT: (+) right tongue with significant hematoma. Normocephalic, (+) 6cm x 6xm scalp hematoma. PERRLA, EOMI. No conjunctival pallor. Sclera are non-icteric. Moist mucous membranes. Oropharynx is clear. NECK: Supple. Full ROM. No JVD. Carotid pulses 2+ and symmetric, without bruits. No thyromegaly. No lymphadenopathy. CARDIOVASCULAR: (+) tachycardic ~128 bpm. Regular rhythm. No murmurs, rubs, or gallops. Distal pulses are 2+ and symmetric. PULMONARY: No evidence of respiratory distress. Lungs clear to auscultation bilaterally. No wheezing, rales or rhonchi. ABDOMINAL: (+) generalized abdominal tenderness without rebound. Soft. Non-distended. No rebound or guarding. No organomegaly. Normoactive bowel sounds. MUSCULOSKELETAL Normal range of motion at all joints. No bony deformities or tenderness. No CVA tenderness. EXTREMITIES: No cyanosis. No clubbing. No edema. No calf tenderness. SKIN: Warm and dry. Normal capillary refill. No rashes. No jaundice. NEUROLOGICAL: Alert, awake, appropriate. Cranial nerves 2-12 intact. Normoreflexic in the upper and lower extremities. Normal speech. Toes are down-going bilaterally. Gait is normal without ataxia. PSYCHIATRIC: Cooperative. Good eye contact. Appropriate mood and affect. - Medical Decision Making 03/05/18 22:22 Documentation prepared by Priscilla Dickey, acting as medical record clerk for Shalonda Rosales MD <Priscilla Dickey - Last Filed: 03/05/18 22:21> - Resident Resident Name: Bryon Julian - ED Attending Attestation I have performed the following: I have examined & evaluated the patient, The case was reviewed & discussed with the resident, I agree w/resident's findings & plan, Exceptions are as noted - HPI HPI: 03/05/18 16:27 54 yo male BIBA or epigastric pain,reported fainting and nausea with vomiting. Report of seizure vs syncope resulting in large scalp hematoma and large tongue hematoma. He has long history of alcohol abuse ,drinking 1 bottle of barcadi daily. Pt presents diaphoretic and tachycardic -he has a large PMH significant for GI bleeds ,etoh abuse 03/05/18 16:29 03/05/18 22:02 - Physicial Exam PE: 03/05/18 16:29 Diaphoretic 54 yo male appears diaphoretic and vomiting head +hematoma oral exam - rt sided hematoma of his tongue eyes melvi eomi neck supple lungs cta b/l cvs tachycardia abd epigatric tendernss ext skin cool and clamy neuro alert,moving all extremities psych anxious 03/05/18 18:35 03/05/18 19:50 - Medical Decision Making 03/05/18 16:31 diff diagnosis includes etoh withdrawl seizure vs syncope, etoh gastritis,GI bleed,pancratitis,ACS plan IV,zofran,IVF,cbc,comp, lipase,trop,ekg,ct scan head 03/05/18 22:04 pt has positive hemoccult ct scan head negative for acute intracranial pathology,only reveals scalp hematoma -his t bili and LFTs are elevated <Shalonda Rosales - Last Filed: 03/07/18 01:32>
[2018-03-05] MEDS ORDERED: ONDANSETRON 4 MG/2 ML VIAL ONE (16:54)
[2018-03-05] MEDS ORDERED: PANTOPRAZOLE SODIUM 40 MG/100 ML BAG IVPB ONE (16:54)
--- NOTE | 2018-03-05 17:13 | PDOC ---
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 Patient states last drink was this am, 1 L of Bacardi rum and appears to be intoxicated and a poor historian. Abdominal pain is described as similar pain in the past and denies changes in bowel or bladder habits. No CP, SOB, back pain. Patient admits to a PAREDES today and on further questioning states he passed out around 12 noon today and does not know if he hit his head. Not on anticoagulation medication. Denies changes in vision or one sided weakness. Bruise and swelling to the top of head noted on exam along with large tongue hematoma and admitted confusion. Did not urinate on himself Past History - Past Medical History Allergies/Adverse Reactions: Allergies Allergy/AdvReac Type Severity Reaction Status Date / Time No Known Allergies Allergy Verified 03/05/18 16:05 Home Medications: Ambulatory Orders Ferrous Sulfate [Feosol] 325 mg PO DAILY@0800 #30 tab 05/31/17 Folic Acid - 1 mg PO DAILY #30 tablet 05/31/17 Thiamine HCl [Vitamin B1 -] 100 mg PO DAILY #30 tablet 05/31/17 Pantoprazole Sodium [Protonix] 40 mg PO DAILY #56 tablet. 07/18/17 Sucralfate [Carafate] 1 gm PO QID 09/28/17 Anemia: Yes (anemia) Asthma: No Cardiac Disorders: No COPD: No Diabetes: No GI Disorders: Yes (gastritis, GIB, Esophogeal varices, Dieulafoy lesion) Disorders: No HTN: Yes Kidney Stones: No Seizures: No - Surgical History Abdominal Surgery: No Appendectomy: No Cardiac Surgery: No Cholecystectomy: No Lung Surgery: No Neurologic Surgery: No Orthopedic Surgery: No - Reproductive History Testicular Surgery: No - Immunization History Immunization Up to Date: No - Suicide/Smoking/Psychosocial Hx Smoking History: Never smoked Have you smoked in the past 12 months: No Number of Cigarettes Smoked Daily: 20 'Breaking Loose' booklet given: 10/06/15 Hx Alcohol Use: Yes ("HARD LIQUOR") Drug/Substance Use Hx: No Substance Use Type: Alcohol Hx Substance Use Treatment: Yes Review of Systems - Review of Systems Constitutional: Yes: Diaphoresis, Fever, Weakness (generalized) HEENTM: No: Blurred Vision, Double Vision Respiratory: No: Shortness of Breath Cardiac (ROS): Yes: Syncope (noon today). No: Chest Pain, Palpitations ABD/GI: Yes: Nausea, Vomiting (10X today). 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 Patient states last drink was this am, 1 L of Bacardi rum and appears to be intoxicated and a poor historian. Abdominal pain is described as similar pain in the past and denies changes in bowel or bladder habits. No CP, SOB, back pain. Patient admits to a PAREDES today and on further questioning states he passed out around 12 noon today and does not know if he hit his head. Not on anticoagulation medication. Denies changes in vision or one sided weakness. Bruise and swelling to the top of head noted on exam. Labs show low Na, K and Cl, elevated LFTs and T bili, blood and ketones in urine and blood in stool. No alcohol found in blood Head (positive for only scalp hematoma) and cervical spine CT ordered along with RUQ ultrasound Patient likely had alcohol withdrawal seizure. Treated with librium and given a banana bag along with protonix Spoke with Dr. Salomon from Neurology who would like Keppra 1g loading dose and 500mg BID started. *DC/Admit/Observation/Transfer Diagnosis at time of Disposition: Alcohol withdrawal seizure - Discharge Dispostion Condition at time of disposition: Fair Decision to Admit order: Yes - Referrals - Patient Instructions - Post Discharge Activity
[2018-03-05 17:23] LABS: BASO % 0.4 % (0-2.0); HEMATOCRIT 46.3 % (35.4-49); HEMOGLOBIN 14.9 GM/dL (11.7-16.9); LYMPH % 5.7 % (8-40); MCH 25.1 pg (25.7-33.7); MCHC 32.3 g/dl (32.0-35.9); MEAN CELL VOLUME 77.9 fl (80-96); MEAN PLT VOLUME 10.2 fl (7.5-11.1); MONO % 7.2 % (3.8-10.2); NEUT % 86.7 % (42.8-82.8); PLATELET COUNT 55 K/MM3 (134-434); RBC 5.95 M/mm3 (4.00-5.60); RDW 20.5 % (11.9-15.9); WHITE BLOOD COUNT 6.9 K/mm3 (4.0-10.0)
[2018-03-05 18:03] LABS: PLATELET ESTIMATE DECREASED
[2018-03-05 18:04] LABS: MACROCYTOSIS 1+
[2018-03-05 18:05] LABS: ANISOCYTOSIS 1+
[2018-03-05 18:29] LABS: ALK PHOS 75 U/L (45-117); ANION GAP 15 MMOL/L (8-16); BILIRUBIN,TOTAL 2.4 mg/dL (0.2-1); BLOOD UREA NITROGEN 26 mg/dL (7-18); CALCIUM 9.3 mg/dL (8.5-10.1); CHLORIDE 84 mmol/L (98-107); CO2 29 mmol/L (21-32); CREATININE 0.9 mg/dL (0.55-1.3); GLUCOSE,RANDOM 167 mg/dL (74-106); LIPASE 400 U/L (73-393); POTASSIUM 3.2 mmol/L (3.5-5.1); SGOT/AST 151 U/L (15-37); SGPT/ALT 82 U/L (13-61); SODIUM 128 mmol/L (136-145)
[2018-03-05 18:41] LABS: URINE APPEARANCE CLOUDY; URINE COLOR AMBER; URINE GLUCOSE (UA) 1+ (NEGATIVE); URINE KETONE TRACE (NEGATIVE); URINE LEUK ESTERASE TRACE (NEGATIVE); URINE NITRITE NEGATIVE (NEGATIVE); URINE PROTEIN 3+ (NEGATIVE); URINE UROBILINOGEN 4.0 E.U/dl mg/dL (0.2-1.0)
[2018-03-05 18:45] LABS: EPI CELLS RARE /HPF (FEW); URINE HYALINE CAST 15 /lpf; URINE MUCUS MANY
[2018-03-05] MEDS ORDERED: POTASSIUM CHLORIDE TABS 20 MEQ TABLET.ER (FP) PO ONE ×2 (18:48→20:55)
[2018-03-05 19:04] LABS: ALBUMIN 3.8 g/dl (3.4-5.0); ALK PHOS 69 U/L (45-117); ANION GAP 12 MMOL/L (8-16); BILIRUBIN,TOTAL 2.3 mg/dL (0.2-1); BLOOD UREA NITROGEN 27 mg/dL (7-18); CALCIUM 8.9 mg/dL (8.5-10.1); CHLORIDE 88 mmol/L (98-107); CO2 31 mmol/L (21-32); CREATININE 0.6 mg/dL (0.55-1.3); GLUCOSE,RANDOM 150 mg/dL (74-106); POTASSIUM 3.2 mmol/L (3.5-5.1); SGOT/AST 136 U/L (15-37); SGPT/ALT 76 U/L (13-61); SODIUM 131 mmol/L (136-145); TOT PROT 8.3 g/dl (6.4-8.2)
[2018-03-05] MEDS ORDERED: ACETAMINOPHEN 1000 MG/100 ML VIAL (NON FORMULARY) IVPB ONE (20:13)
[2018-03-05] MEDS ORDERED: chlordiazePOXIDE HCL 25 MG CAPSULE PO ONE (20:26)
[2018-03-05] MEDS ORDERED: FOLIC ACID INJECTION - 1 MG, THIAMINE HCL 100 MG, MULTIVIT INJECTION ADULT 10 ML in SOD... IVPB ONE (20:27)
[2018-03-05] MEDS ORDERED: chlordiazePOXIDE HCL 25 MG CAPSULE ONE ×2 (20:53→23:24)
[2018-03-05] MEDS ORDERED: ACETAMINOPHEN INJECTION 100 ML IVPB ONE (20:53)
--- NOTE | 2018-03-05 21:07 | PN ---
Teaching Attending Note Name of Resident: Sharron Orozco ATTENDING PHYSICIAN STATEMENT I saw and evaluated the patient. I reviewed the resident's note and discussed the case with the resident. I agree with the resident's findings and plan as documented. SUBJECTIVE: Patient is 53 year old man, Turkmen speaking with PMH of Seizures (most recent 6 months ago, not followed by neurology or treated medically) HTN, anemia, alcohol abuse, GI bleed and a recent admission for epigastric pain with associated bloody vomiting (patient found to be diaphoretic and have psychomotor agitation on admission) presents to the ED for nausea, 10 episodes NB/NB vomiting, and epigastric pain. Patient states last drink was this am, 1 L of Bacardi rum and appears to be intoxicated and a poor historian. Abdominal pain is described as similar pain in the past and denies changes in bowel or bladder habits. No CP, SOB, back pain. Patient admits to a PAREDES today and on further questioning states he passed out around 12 noon today and does not know if he hit his head. Not on anticoagulation medication. Denies changes in vision or one sided weakness. Bruise and swelling to the top of head noted on exam along with large tongue hematoma and admitted confusion. Did not urinate on himself OBJECTIVE: Alert Vital Signs Period Temp Pulse Resp BP Sys/Boykin Pulse Ox Last 24 Hr 97.8 F 125 20 136/99 98 HEENT: No Jaundice, eye redness or discharge, PERRLA, EOMI. Scalp contusion. Tongue hematoma; External ears are normal and hearing is grossly intact. No nasal discharge. Neck: Supple, nontender. No palpable adenopathy or thyromegaly. No JVD Chest: Good effort. Clear to auscultation and percussion. Heart: Regular. No S3, rub or murmur Abdomen: Not distended, soft, tender upper abdomen and no HSM. No rebound or guarding. Normoactive bowel sounds. Ext: Peripheral pulses intact. No leg edema. Skin: Warm and dry. No petechiae, rash or ecchymosis. Neuro: Alert. Oriented person and place. CN 2-12 grossly intact. Sensation grossly intact in all four extremities and DTR are symmetric. No tremors or asterexis. Current Medications Generic Name Dose Route Start Last Admin Trade Name Freq PRN Reason Stop Dose Admin Folic Acid 1 mg/ Thiamine HCl 1,000 mls @ 125 mls/hr 03/05/18 20:27 100 mg/ Multivitamins/Minerals IVPB 03/06/18 04:26 10 ml/ Sodium Chloride ONCE ONE Home Medications Medication Instructions Recorded Ferrous Sulfate [Feosol] 325 mg PO DAILY@0800 #30 tab 05/31/17 Folic Acid - 1 mg PO DAILY #30 tablet 05/31/17 Thiamine HCl [Vitamin B1 -] 100 mg PO DAILY #30 tablet 05/31/17 Pantoprazole Sodium [Protonix] 40 mg PO DAILY #56 tablet. 07/18/17 Sucralfate [Carafate] 1 gm PO QID 09/28/17 Abnormal Lab Results 03/05/18 03/05/18 03/05/18 16:20 16:20 18:20 RBC 5.95 H MCV 77.9 L MCH 25.1 L RDW 20.5 H Plt Count 55 L Neutrophils % 86.7 H D Lymphocytes % 5.7 L D Sodium 128 L 131 L Potassium 3.2 L 3.2 L Chloride 84 L 88 L BUN 26 H 27 H Random Glucose 167 H 150 H Total Bilirubin 2.4 H 2.3 H AST 151 H 136 H ALT 82 H 76 H Creatine Kinase 1533 H CK-MB (CK-2) 9.2 H Total Protein 9.0 H 8.3 H Lipase 400 H Urine Protein Urine Glucose (UA) Urine Ketones Urine Blood 03/05/18 18:30 RBC MCV MCH RDW Plt Count Neutrophils % Lymphocytes % Sodium Potassium Chloride BUN Random Glucose Total Bilirubin AST ALT Creatine Kinase CK-MB (CK-2) Total Protein Lipase Urine Protein 3+ H Urine Glucose (UA) 1+ H Urine Ketones Trace H Urine Blood 2+ H ASSESSMENT AND PLAN: 1. Alcohol withdrawal/Fall/?Seizure - Patient possibly had an alcohol withdrawal /related seizure, fell down and injured himself. Head CT scan is negative. Will admit to telemetry; do neurochecks and repeat head CT in view of low platelets. Patient was loaded with IV Keppra and will continue Keppra. Will get CT scan of abdomen and pelvis with contrast in view of hematuria and guaiac positive stool to rule out internal injury. Treat possible UTI with Rocephin pending urine culture. Electrolyte abnormalities and low platelets likely sequelae of alcoholism. Will check Mg+ and give KCL. Give Protonix IV. Alcohol abuse - Implement [facility] librium alcohol withdrawal protocol and fall precautions. Treat with thiamine and folic acid and monitor electrolytes (Ca,Mg, K,P). 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 2. DVT prophylaxis - SCD, TEDs 3. Advance directives - Full code
[2018-03-05] MEDS ORDERED: levETIRAcetam 500 MG TABLET (FP) PO ONE ×2 (21:22→23:24)
[2018-03-05] MEDS ORDERED: chlordiazePOXIDE HCL 25 MG CAPSULE PO PRN (23:02)
[2018-03-05] MEDS: chlordiazePOXIDE HCL 25 MG CAPSULE PO SCH (23:40)
[2018-03-05] MEDS: levETIRAcetam 500 MG TABLET (FP) PO SCH (23:40)
[2018-03-06] MEDS ORDERED: FOLIC ACID INJECTION - 1 MG, THIAMINE HCL 100 MG, MULTIVIT INJECTION ADULT 10 ML in SOD... IVPB ONE (01:15)
[2018-03-06 01:16] LABS: BASO % 0.3 % (0-2.0); HEMATOCRIT 41.1 % (35.4-49); HEMOGLOBIN 13.3 GM/dL (11.7-16.9); LYMPH % 7.5 % (8-40); MCH 25.5 pg (25.7-33.7); MCHC 32.5 g/dl (32.0-35.9); MEAN CELL VOLUME 78.7 fl (80-96); MEAN PLT VOLUME 9.7 fl (7.5-11.1); MONO % 11.6 % (3.8-10.2); NEUT % 80.6 % (42.8-82.8); RBC 5.23 M/mm3 (4.00-5.60); RDW 20.9 % (11.9-15.9); WHITE BLOOD COUNT 5.6 K/mm3 (4.0-10.0)
[2018-03-06 01:24] LABS: PLATELET COUNT 36 K/MM3 (134-434)
--- NOTE | 2018-03-06 02:02 | HP ---
CHIEF COMPLAINT: s/p fall 2/2 alcohol intoxication PCP: none HISTORY OF PRESENT ILLNESS: Combine [employer] phone used during interview. Pt is a 54 y/o German-speaking male w/ pmhx of GI bleed, EtOH abuse, seizures, HTN, anemia presents to the ED s/p fall this morning. Pt admits he was intoxicated and drank 1 bottle of rum prior to fall. He reports he hit his head , loss consciousness, but does not know how long he lost consciousness for. He also admits to biting his tongue during the fall. His roommate found him on the floor and called EMS. Admits to fever/chills, dizziness, problems walking due to balance and coordination issues, numbness/tingling in hands x2 days. Additionally, he admits to multiple episodes of non-bloody vomiting prior to fall due to intoxication, nausea after falling and hitting his head, and abdominal pain x2 days. Pt also states he noticed red-colored urine over the past 2 weeks. He admits to frequently staying in bed due to alcohol intoxication. Pt admits to nervousness/anxiety, but denies auditory/visual hallucinations. Denies urinary/bowel incontinence, hx of heart/lung disease. ER course was notable for: (1) Pl 55, Na 131, K+ 3.2, Cl 88, T Bili 2.3, AST/ALT 136/76, CK 1533, FOBT(+); U/A showed 3+ Pro, 1+ Glu, 2+ blood, trace LE, 35 WBC, 6 RBC; Utox neg for alcohol (2) Librium 25 mg, banana bag, KCl 40 mEq given (3) Head CT neg, Cervical CT neg for fx Recent Travel: Denies PAST MEDICAL HISTORY: GI Bleeds (Dieulafoy lesion, variceal bleeding) EtOH abuse seizures (most recent 6 mo's ago) HTN anemia PAST SURGICAL HISTORY: Distal esophagus AVM clipping (02/15/17) Social History: Smoking: Denies Alcohol: 1 bottle of rum/day Drugs: Denies Family History: Brother: DM Allergies No Known Allergies Allergy (Verified 03/05/18 16:05) HOME MEDICATIONS: Home Medications Medication Instructions Recorded Ferrous Sulfate [Feosol] 325 mg PO DAILY@0800 #30 tab 05/31/17 Folic Acid - 1 mg PO DAILY #30 tablet 05/31/17 Thiamine HCl [Vitamin B1 -] 100 mg PO DAILY #30 tablet 05/31/17 Pantoprazole Sodium [Protonix] 40 mg PO DAILY #56 tablet. 07/18/17 Sucralfate [Carafate] 1 gm PO QID 09/28/17 REVIEW OF SYSTEMS CONSTITUTIONAL: +fever, chills, diaphoresis, generalized weakness, Absent: malaise, loss of appetite, weight change HEENT: tongue biting during fall Absent: rhinorrhea, nasal congestion, throat pain, throat swelling, difficulty swallowing, mouth swelling, ear pain, eye pain, visual changes CARDIOVASCULAR: Absent: chest pain, syncope, palpitations, irregular heart rate, lightheadedness , peripheral edema RESPIRATORY: Absent: cough, shortness of breath, dyspnea with exertion, orthopnea, wheezing, GASTROINTESTINAL: +abdominal pain, nausea, vomiting, Absent: abdominal distension, diarrhea, constipation, melena, hematochezia GENITOURINARY: +hematuria Absent: dysuria, frequency, urgency, hesitancy, flank pain, genital pain MUSCULOSKELETAL: +neck pain Absent: myalgia, arthralgia, joint swelling, back pain, SKIN: Absent: rash, itching, pallor HEMATOLOGIC/IMMUNOLOGIC: Absent: easy bleeding, easy bruising, lymphadenopathy ENDOCRINE: Absent: unexplained weight gain, unexplained weight loss, heat intolerance, cold intolerance NEUROLOGIC: +headache, unsteady gait Absent: focal weakness or paresthesias, dizziness, seizure, mental status changes, bladder or bowel incontinence PSYCHIATRIC: +anxiety Absent: depression, suicidal or homicidal ideation, hallucinations. PHYSICAL EXAMINATION Vital Signs - 24 hr 03/05/18 03/05/18 03/05/18 16:01 17:30 18:05 Temperature 97.8 F Pulse Rate 125 H Pulse Rate [ 118 H 115 H Apical] Respiratory 20 18 12 Rate Blood Pressure 136/99 Blood Pressure 108/94 126/94 [Left Arm] O2 Sat by Pulse 98 94 L 96 Oximetry (%) 03/05/18 03/05/18 03/05/18 18:30 19:30 20:05 Temperature Pulse Rate Pulse Rate [ 122 H 123 H 121 H Apical] Respiratory 22 H 19 17 Rate Blood Pressure Blood Pressure 137/90 138/99 128/93 [Left Arm] O2 Sat by Pulse Oximetry (%) 03/05/18 03/05/18:18 21:00 Temperature Pulse Rate Pulse Rate [ 117 H 119 H Apical] Respiratory 14 20 Rate Blood Pressure Blood Pressure 142/99 153/101 H [Left Arm] O2 Sat by Pulse 99 97 Oximetry (%) GENERAL: AAOx3. NAD. Diaphoretic. HEENT: R side superficial frontoparietal hematoma. EOMI. YOUSIF. B/L conjunctival injection. R-sided hematoma noted on tongue. Moist mucus membranes. NECK: Supple, no LAD/JVD. LUNGS: CTA B/L. No w/r/r/ noted. Symmetric chest rise. No use of accessory muscles of respiration noted. HEART: RRR. Normal S1, S2. ABDOMEN: Soft, ND. Tender to deep palpation in b/l upper quadrants. Normoactive BS in all Q's. MUSCULOSKELETAL: No peripheral edema noted. UPPER EXTREMITIES: 2+ pulses, warm, well-perfused. No cyanosis. No clubbing. 5/ 5 muscle strength B/L extremities. LOWER EXTREMITIES: 2+ pulses, warm, well-perfused. No calf tenderness. 5/5 muscle strength B/L extremities. NEUROLOGICAL: Mild hand tremors noted while arms extended. Facial symmetry noted. Facial muscles intact. Normal speech. B/L sensation intact. Gait not observed. PSYCHIATRIC: Cooperative. Good eye contact. Appropriate mood and affect. Laboratory Results - last 24 hr 03/05/18 03/05/18 03/05/18 16:20 16:20 18:20 WBC 6.9 RBC 5.95 H Hgb 14.9 Hct 46.3 D MCV 77.9 L MCH 25.1 L MCHC 32.3 RDW 20.5 H Plt Count 55 L MPV 10.2 Absolute Neuts (auto) 6.0 Neutrophils % 86.7 H D Lymphocytes % 5.7 L D Monocytes % 7.2 Eosinophils % 0.0 D Basophils % 0.4 Nucleated RBC % 0 Platelet Estimate Decreased Platelet Comment Giant platelets Anisocytosis 1+ Microcytosis 1+ Macrocytosis 1+ Sodium 128 L Potassium 3.2 L Chloride 84 L Carbon Dioxide 29 Anion Gap 15 BUN 26 H Creatinine 0.9 Creat Clearance w eGFR > 60 Random Glucose 167 H Lactic Acid 2.0 Calcium 9.3 Total Bilirubin 2.4 H AST 151 H ALT 82 H Alkaline Phosphatase 75 Creatine Kinase 1533 H Creatine Kinase Index 0.6 CK-MB (CK-2) 9.2 H Troponin I < 0.02 Total Protein 9.0 H Albumin 4.0 Lipase 400 H Urine Color Urine Appearance Urine pH Ur Specific [place] Urine Protein Urine Glucose (UA) Urine Ketones Urine Blood Urine Nitrite Urine Bilirubin Urine Urobilinogen Ur Leukocyte Esterase Urine WBC (Auto) Urine RBC (Auto) Ur Epithelial Cells Hyaline Casts Urine Mucus Stool Occult Blood Alcohol, Quantitative 03/05/18 03/05/18 03/05/18 18:20 18:20 18:30 WBC RBC Hgb Hct MCV MCH MCHC RDW Plt Count MPV Absolute Neuts (auto) Neutrophils % Lymphocytes % Monocytes % Eosinophils % Basophils % Nucleated RBC % Platelet Estimate Platelet Comment Anisocytosis Microcytosis Macrocytosis Sodium 131 L Potassium 3.2 L Chloride 88 L Carbon Dioxide 31 Anion Gap 12 BUN 27 H Creatinine 0.6 Creat Clearance w eGFR > 60 Random Glucose 150 H Lactic Acid Calcium 8.9 Total Bilirubin 2.3 H AST 136 H ALT 76 H Alkaline Phosphatase 69 Creatine Kinase Creatine Kinase Index CK-MB (CK-2) Troponin I Total Protein 8.3 H Albumin 3.8 Lipase Urine Color [place] Urine Appearance Cloudy Urine pH 5.0 Ur Specific [place] 1.032 Urine Protein 3+ H Urine Glucose (UA) 1+ H Urine Ketones Trace H Urine Blood 2+ H Urine Nitrite Negative Urine Bilirubin 2.0 Urine Urobilinogen 4.0 e.u/dl Ur Leukocyte Esterase Trace Urine WBC (Auto) 35 Urine RBC (Auto) 6 Ur Epithelial Cells Rare Hyaline Casts 15 Urine Mucus Many Stool Occult Blood Alcohol, Quantitative < 3.0 03/05/18 03/06/18 19:47 00:06 WBC 5.6 RBC 5.23 Hgb 13.3 Hct 41.1 MCV 78.7 L MCH 25.5 L MCHC 32.5 RDW 20.9 H Plt Count 36 L* D MPV 9.7 Absolute Neuts (auto) 4.5 Neutrophils % 80.6 Lymphocytes % 7.5 L D Monocytes % 11.6 H Eosinophils % 0.0 Basophils % 0.3 Nucleated RBC % 0 Platelet Estimate Platelet Comment Anisocytosis Microcytosis Macrocytosis Sodium Potassium Chloride Carbon Dioxide Anion Gap BUN Creatinine Creat Clearance w eGFR Random Glucose Lactic Acid Calcium Total Bilirubin AST ALT Alkaline Phosphatase Creatine Kinase Creatine Kinase Index CK-MB (CK-2) Troponin I Total Protein Albumin Lipase Urine Color Urine Appearance Urine pH Ur Specific [place] Urine Protein Urine Glucose (UA) Urine Ketones Urine Blood Urine Nitrite Urine Bilirubin Urine Urobilinogen Ur Leukocyte Esterase Urine WBC (Auto) Urine RBC (Auto) Ur Epithelial Cells Hyaline Casts Urine Mucus Stool Occult Blood Positive Alcohol, Quantitative ASSESSMENT/PLAN: Pt is a 54 y/o German-speaking male w/ pmhx of GI bleed, EtOH abuse, seizures, HTN, anemia presents to the ED s/p fall this morning. #S/p fall 2/2 seizure vs. alcohol withdrawal; CIWA 16. Pt attributes his fall to alcohol intoxication and admits to drinking 1 bottle of rum prior to fall, however, Utox is negative for alcohol. Fall may possibly be due to unwitnessed seizure activity. Head CT neg. -Librium protocol -Banana bag (Folic acid, thiamine, B12) -Repeat CT of head to r/o any late onset IC pathology -Keppra given. Cont Keppra 500 mg PO BID -Consider detox consult #GI Bleed; Pt's FOBT is (+) and also has extensive hx of GI bleed in the past in which he did not follow up with a GI doctor as previously recommended. -NPO except meds -Protonix 40 mg IV QD -CT A/P w/ IV contrast neg for RP bleed -Consider GI consult #Thrombocytopenia; Initial Pl 55 > 39. -T&S -1U IV platelet transfusion given -repeat CBC #Hypokalemia -KCl 10 mEq IVPB -Mag/Phos ordered -Repeat CMP in AM #UTI; U/A (+) for 2+ blood, trace LE, 35 WBC, 6 RBC -Ceftriaxone 1gm IVPB given -f/u urine culture #Rhabdomyolysis; CK 1533. -NS @ 100 -Trend CPK #DVT Ppx -SCDs #GI Ppx -Protonix 50 mg IV QD #FEN -NS @ 100 -recheck lytes in AM -NPO except meds dispo -admit to tele -full code Visit type - Emergency Visit Emergency Visit: Yes ED Registration Date: 03/05/18 Care time: The patient presented to the Emergency Department on the above date and was hospitalized for further evaluation of their emergent condition. - New Patient This patient is new to me today: Yes Date on this admission: 03/06/18 - Critical Care Critical Care patient: No
[2018-03-06] MEDS ORDERED: KCL 10 MEQ IVPB 10 MEQ/100 ML INFUS.BAG IVPB SCH (03:45)
[2018-03-06] MEDS ORDERED: SODIUM CHLORIDE 1,000 ML IV SCH (03:45)
[2018-03-06] MEDS: chlordiazePOXIDE HCL 25 MG CAPSULE PO SCH ×5 (06:30→22:50)
[2018-03-06] MEDS ORDERED: chlordiazePOXIDE HCL 25 MG CAPSULE ONE ×4 (06:32→17:43)
--- NOTE | 2018-03-06 06:37 | CON.NEURO ---
Consult Consult Specialty:: Neurology Referred by:: Dr. Julian Reason for Consultation:: Seizures - History of Present Illness Chief Complaint: Loss of consciousness in patient with history of seizures History of Present Illness: Patient with history of prior seizures and heavy drinking, consumed a bottle of rum, and reportedly lost consciousness. History is very sketchy, but apparently found by friend who called EMS. No witnessed seizure activity, but he does have bump on head and tongue laceration suggesting seizure. He has had prior seizures and is not on anticonvulsants and is not followed by a neurologist. Its not clear if all the seizures were in the setting of alcohol withdrawal. 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 Cardio/Vascular: Yes: HTN Gastrointestinal: Yes: GI Bleed (upper GI bleed confirmed by EGD, shown to have muscosal tears and AVM) Infectious Disease: Yes: Other (h/o TB treated 2008 per [facility] notes) Psych: Yes: Addictions (alcohol abuse) - Alcohol/Substance Use Hx Alcohol Use: Yes ("HARD LIQUOR") - Smoking History Smoking history: Current every day smoker Have you smoked in the past 12 months: No Aproximately how many cigarettes per day: 20 Home Medications - Allergies Allergies/Adverse Reactions: Allergies Allergy/AdvReac Type Severity Reaction Status Date / Time No Known Allergies Allergy Verified 03/05/18 16:05 - Home Medications Home Medications: Ambulatory Orders Ferrous Sulfate [Feosol] 325 mg PO DAILY@0800 #30 tab 05/31/17 Folic Acid - 1 mg PO DAILY #30 tablet 05/31/17 Thiamine HCl [Vitamin B1 -] 100 mg PO DAILY #30 tablet 05/31/17 Pantoprazole Sodium [Protonix] 40 mg PO DAILY #56 tablet. 07/18/17 Sucralfate [Carafate] 1 gm PO QID 09/28/17 Physical Exam-Neuro Vital Signs: Vital Signs Temperature 98.2 F 03/06/18 04:29 Pulse Rate 92 H 03/06/18 04:29 Respiratory Rate 18 03/06/18 04:29 Blood Pressure 124/89 03/06/18 04:29 O2 Sat by Pulse Oximetry (%) 98 03/06/18 04:29 Labs: CBC, BMP 03/06/18 00:06 03/05/18 18:20 - Neuro Exam Level Of Consciousness: Yes: Oriented to Person, Oriented to Place Eyes: Yes: SHERRI Speech: WNL Cranial Nerves II-XII Intact: Yes DTR's: 2+ Left Bicep, 2+ Right Bicep, 2+ Left Tricep, 2+ Right Tricep, 2+ Left Brachioradialis, 2+ Right Brachioradialis Babinski: Absent Response to light touch: Normal Motor Strength: 5/5: Left Arm, Right Arm, Left Leg, Right Leg Gait: Deferred Imaging - Results Cat Scan: Image Reviewed (Report pending, to my eyes, CT brain shows some atrophy but no lesions. Await radiologist reading.) Problem List - Problems (1) Seizure Code(s): R56.9 - UNSPECIFIED CONVULSIONS (2) Alcohol abuse Code(s): F10.10 - ALCOHOL ABUSE, UNCOMPLICATED (3) Alcohol dependence with uncomplicated withdrawal Code(s): F10.230 - ALCOHOL DEPENDENCE WITH WITHDRAWAL, UNCOMPLICATED Assessment/Plan He most likely had a seizure based on his tongue laceration and history of prior events. What is unclear is if he has a seizure disorder, that is, epilespy, that would warrant maintaining him on Keppra. Keppra would have no role in pure alcohol withdrawal seizures, as the only treatment for this would be avoidance of alcohol withdrawal (most expeditiously by cessation of drinking). As he wakes up more and/or family or friends become available we should be able to get more history. In the mean time, we can continue the keppra and detox him. Thiamine and vitamin repletion. Thanks.
[2018-03-06 06:57] LABS: BASO % 0.4 % (0-2.0); EOS % 0.5 % (0-4.5); HEMATOCRIT 39.9 % (35.4-49); HEMOGLOBIN 12.5 GM/dL (11.7-16.9); MCH 24.9 pg (25.7-33.7); MCHC 31.4 g/dl (32.0-35.9); MEAN CELL VOLUME 79.1 fl (80-96); MEAN PLT VOLUME 8.8 fl (7.5-11.1); MONO % 9.7 % (3.8-10.2); NEUT % 73.4 % (42.8-82.8); PLATELET COUNT 54 K/MM3 (134-434); RBC 5.04 M/mm3 (4.00-5.60); RDW 21.1 % (11.9-15.9); WHITE BLOOD COUNT 4.4 K/mm3 (4.0-10.0)
[2018-03-06 07:57] LABS: ALBUMIN 3.4 g/dl (3.4-5.0); ALK PHOS 61 U/L (45-117); ANION GAP 6 MMOL/L (8-16); BILIRUBIN,TOTAL 2.2 mg/dL (0.2-1); BLOOD UREA NITROGEN 20 mg/dL (7-18); CALCIUM 7.8 mg/dL (8.5-10.1); CHLORIDE 97 mmol/L (98-107); CO2 31 mmol/L (21-32); CREATININE 0.5 mg/dL (0.55-1.3); GLUCOSE,RANDOM 80 mg/dL (74-106); MAGNESIUM 1.6 mg/dL (1.8-2.4); PHOSPHOROUS 2.9 mg/dL (2.5-4.9); POTASSIUM 3.1 mmol/L (3.5-5.1); SGOT/AST 110 U/L (15-37); SGPT/ALT 61 U/L (13-61); SODIUM 134 mmol/L (136-145); TOT PROT 7.2 g/dl (6.4-8.2)
[2018-03-06] MEDS: SODIUM CHLORIDE 1,000 ML IV SCH ×2 (09:50→12:41)
[2018-03-06] MEDS ORDERED: PANTOPRAZOLE 40 MG TABLET (FP) PO SCH (10:00)
[2018-03-06] MEDS: levETIRAcetam 500 MG TABLET (FP) PO SCH ×2 (10:30→22:01)
[2018-03-06] MEDS: CEFTRIAXONE 1 GM in DEXTROSE 5%-WATER - 50 ML IVPB SCH (10:30)
--- NOTE | 2018-03-06 10:36 | EKG ---
Test Reason : Blood Pressure : / mmHG Vent. Rate : 103 BPM Atrial Rate : 103 BPM P-R Int : 148 ms QRS Dur : 082 ms QT Int : 370 ms P-R-T Axes : 043 051 018 degrees QTc Int : 484 ms SINUS TACHYCARDIA OTHERWISE NORMAL ECG WHEN COMPARED WITH ECG OF 30-SEP-2017 13:41, NO SIGNIFICANT CHANGE WAS FOUND Confirmed by ARELI DE LUNA MD ([id number]) on 03/06/2018 10:35:56 AM Referred By: Confirmed By:ARELI DE LUNA MD
[2018-03-06] MEDS ORDERED: chlordiazePOXIDE HCL 25 MG CAPSULE PO SCH ×2 (11:00→23:00)
--- NOTE | 2018-03-06 11:15 | PN ---
Physical Exam: SUBJECTIVE: Patient seen and examined this AM. He is kiswahili speaking only and technology recruiter service was used: [id number]. Pt currently complaining of head and abdominal pain. Pt states he fainted and fell and hit his head. He denies any alcohol or drug use prior to the event. He says his pain is improved from arrival to the hospital. OBJECTIVE: Vital Signs Period Temp Pulse Resp BP Sys/Boykin Pulse Ox Last 24 Hr 97.8 F-98.2 F 92-125 12-22 108-153/89-101 94-99 GENERAL: A&O, no acute distress HEAD: Normocephalic, abrasion noted on anterior superior head more so on the right, no acute bleeding EYES: PERRL, no scleral icterus, sclera injected EARS, NOSE, THROAT: Dried blood noted on tongue where pt bit his tongue, no acute bleeding NECK: supple without lymphadenopathy LUNGS: CTA b/l, no crackles or wheezes HEART: Regular rate and rhythm, normal S1 and S2 without murmur ABDOMEN: Soft, mildly tender to palpation diffusely, normoactive bowel sounds MUSCULOSKELETAL: No bony deformities or tenderness. NEUROLOGICAL: Cranial nerves II-XII grossly intact. Speech difficult to understand, very mildly slurred Laboratory Results - last 24 hr 03/05/18 03/05/18 03/05/18 16:20 16:20 18:20 WBC 6.9 RBC 5.95 H Hgb 14.9 Hct 46.3 D MCV 77.9 L MCH 25.1 L MCHC 32.3 RDW 20.5 H Plt Count 55 L MPV 10.2 Absolute Neuts (auto) 6.0 Neutrophils % 86.7 H D Lymphocytes % 5.7 L D Monocytes % 7.2 Eosinophils % 0.0 D Basophils % 0.4 Nucleated RBC % 0 Platelet Estimate Decreased Platelet Comment Giant platelets Anisocytosis 1+ Microcytosis 1+ Macrocytosis 1+ Sodium 128 L Potassium 3.2 L Chloride 84 L Carbon Dioxide 29 Anion Gap 15 BUN 26 H Creatinine 0.9 Creat Clearance w eGFR > 60 Random Glucose 167 H Lactic Acid 2.0 Calcium 9.3 Phosphorus Magnesium Total Bilirubin 2.4 H AST 151 H ALT 82 H Alkaline Phosphatase 75 Creatine Kinase 1533 H Creatine Kinase Index 0.6 CK-MB (CK-2) 9.2 H Troponin I < 0.02 Total Protein 9.0 H Albumin 4.0 Lipase 400 H Urine Color Urine Appearance Urine pH Ur Specific [place] Urine Protein Urine Glucose (UA) Urine Ketones Urine Blood Urine Nitrite Urine Bilirubin Urine Urobilinogen Ur Leukocyte Esterase Urine WBC (Auto) Urine RBC (Auto) Ur Epithelial Cells Hyaline Casts Urine Mucus Stool Occult Blood Alcohol, Quantitative Blood Type Antibody Screen 03/05/18 03/05/18 03/05/18 18:20 18:20 18:30 WBC RBC Hgb Hct MCV MCH MCHC RDW Plt Count MPV Absolute Neuts (auto) Neutrophils % Lymphocytes % Monocytes % Eosinophils % Basophils % Nucleated RBC % Platelet Estimate Platelet Comment Anisocytosis Microcytosis Macrocytosis Sodium 131 L Potassium 3.2 L Chloride 88 L Carbon Dioxide 31 Anion Gap 12 BUN 27 H Creatinine 0.6 Creat Clearance w eGFR > 60 Random Glucose 150 H Lactic Acid Calcium 8.9 Phosphorus Magnesium Total Bilirubin 2.3 H AST 136 H ALT 76 H Alkaline Phosphatase 69 Creatine Kinase Creatine Kinase Index CK-MB (CK-2) Troponin I Total Protein 8.3 H Albumin 3.8 Lipase Urine Color [place] Urine Appearance Cloudy Urine pH 5.0 Ur Specific [place] 1.032 Urine Protein 3+ H Urine Glucose (UA) 1+ H Urine Ketones Trace H Urine Blood 2+ H Urine Nitrite Negative Urine Bilirubin 2.0 Urine Urobilinogen 4.0 e.u/dl Ur Leukocyte Esterase Trace Urine WBC (Auto) 35 Urine RBC (Auto) 6 Ur Epithelial Cells Rare Hyaline Casts 15 Urine Mucus Many Stool Occult Blood Alcohol, Quantitative < 3.0 Blood Type Antibody Screen 03/05/18 03/06/18 03/06/18 19:47 00:06 01:49 WBC 5.6 RBC 5.23 Hgb 13.3 Hct 41.1 MCV 78.7 L MCH 25.5 L MCHC 32.5 RDW 20.9 H Plt Count 36 L* D MPV 9.7 Absolute Neuts (auto) 4.5 Neutrophils % 80.6 Lymphocytes % 7.5 L D Monocytes % 11.6 H Eosinophils % 0.0 Basophils % 0.3 Nucleated RBC % 0 Platelet Estimate Platelet Comment Anisocytosis Microcytosis Macrocytosis Sodium Potassium Chloride Carbon Dioxide Anion Gap BUN Creatinine Creat Clearance w eGFR Random Glucose Lactic Acid Calcium Phosphorus Magnesium Total Bilirubin AST ALT Alkaline Phosphatase Creatine Kinase Creatine Kinase Index CK-MB (CK-2) Troponin I Total Protein Albumin Lipase Urine Color Urine Appearance Urine pH Ur Specific [place] Urine Protein Urine Glucose (UA) Urine Ketones Urine Blood Urine Nitrite Urine Bilirubin Urine Urobilinogen Ur Leukocyte Esterase Urine WBC (Auto) Urine RBC (Auto) Ur Epithelial Cells Hyaline Casts Urine Mucus Stool Occult Blood Positive Alcohol, Quantitative Blood Type A POSITIVE Antibody Screen Negative 03/06/18 03/06/18 03/06/18 06:00 06:00 06:00 WBC 4.4 RBC 5.04 Hgb 12.5 Hct 39.9 MCV 79.1 L MCH 24.9 L MCHC 31.4 L RDW 21.1 H Plt Count 54 L D MPV 8.8 Absolute Neuts (auto) 3.2 Neutrophils % 73.4 Lymphocytes % 16.0 D Monocytes % 9.7 Eosinophils % 0.5 D Basophils % 0.4 Nucleated RBC % 0 Platelet Estimate Platelet Comment Anisocytosis Microcytosis Macrocytosis Sodium 134 L Potassium 3.1 L Chloride 97 L Carbon Dioxide 31 Anion Gap 6 L BUN 20 H Creatinine 0.5 L Creat Clearance w eGFR > 60 Random Glucose 80 Lactic Acid Calcium 7.8 L Phosphorus 2.9 Magnesium 1.6 L Total Bilirubin 2.2 H AST 110 H ALT 61 Alkaline Phosphatase 61 Creatine Kinase 1822 H Cancelled Creatine Kinase Index 0.8 CK-MB (CK-2) 14.8 H Troponin I Total Protein 7.2 Albumin 3.4 Lipase Urine Color Urine Appearance Urine pH Ur Specific [place] Urine Protein Urine Glucose (UA) Urine Ketones Urine Blood Urine Nitrite Urine Bilirubin Urine Urobilinogen Ur Leukocyte Esterase Urine WBC (Auto) Urine RBC (Auto) Ur Epithelial Cells Hyaline Casts Urine Mucus Stool Occult Blood Alcohol, Quantitative Blood Type Antibody Screen Active Medications Generic Name Dose Route Start Last Admin Trade Name Freq PRN Reason Stop Dose Admin Chlordiazepoxide HCl 25 mg 03/05/18 23:02 Librium - PO 03/08/18 23:01 Q4H PRN WITHDRAWAL(CONT SUBST) Chlordiazepoxide HCl 50 mg 03/05/18 23:08 03/06/18 06:30 Librium - PO 03/06/18 23:01 50 mg [id number] ALPA Administration Chlordiazepoxide HCl 25 mg 03/06/18 23:00 Librium - PO 03/07/18 17:01 [id number] ALPA Chlordiazepoxide HCl 15 mg 03/07/18 23:00 Librium - PO 03/08/18 17:01 [id number] ALPA Chlordiazepoxide HCl 10 mg 03/08/18 23:00 Librium - PO 03/09/18 17:01 [id number] ALPA Ceftriaxone Sodium 1 gm/ 50 mls @ 100 mls/hr 03/06/18 10:00 Dextrose IVPB DAILY ALPA Protocol Sodium Chloride 1,000 mls @ 150 mls/hr 03/06/18 08:51 Normal Saline - IV ASDIR ALPA Levetiracetam 500 mg 03/05/18 22:00 03/05/18 23:40 Keppra - PO 500 mg BID ALPA Administration Pantoprazole Sodium 40 mg 03/06/18 10:00 Protonix - PO DAILY ALPA ASSESSMENT/PLAN: 54 yo Surinamese-speaking male with PMH of GI bleed, EtOH abuse, seizures, HTN, anemia presents to the ED s/p fall with head trauma. LOC with Fall and Head Trauma -Likely secondary to acute seizure, alcohol withdrawal seizures vs epilepsy -Pt drinks 1L hard liquor daily per chart and other providers -Neurology Consult appreciated -CT Head: no acute bleed -Keppra loaded, maintenance with 500 mg PO BID -Librium protocol initiated, CIWA 8 this morning, improved later in the day GI bleed with mild anemia -Anemia likely secondary to acute losses, as pt noted with Coffee ground emesis by nursing -Fecal Occult positive -Trend H/H -Repeat CBC pending -GI Consult placed -Started on Protonix GGT -Pt with known extensive GI bleed hx -Maintain NPO -Vitals Stable Rhabdomyolysis -CK elevated to 1533, increased to 1822, repeat pending -2+ blood with 6 RBCs, 3+ protein -NS @ 150 cc/hr Possible UTI -Trace LE with 35 WBCs -Rocephin 1gm IV Daily HTN -Does not take any home meds, pressure currently stable DVT Prophylaxis -SCDs FEN -Fluids: NS @ 150 cc/hr -Electrolytes: Hypokalemia, Mg low, repleted, BMP in AM -Nutrition: NPO Disposition Med/Surg Visit type - Emergency Visit Emergency Visit: Yes ED Registration Date: 03/05/18 Care time: The patient presented to the Emergency Department on the above date and was hospitalized for further evaluation of their emergent condition. - New Patient This patient is new to me today: Yes Date on this admission: 03/06/18 - Critical Care Critical Care patient: No
[2018-03-06] MEDS ORDERED: MAGNESIUM OXIDE 400 MG TABLET (FP) ONE (12:43)
[2018-03-06] MEDS ORDERED: KCL 10 MEQ IVPB 10 MEQ/100 ML INFUS.BAG IVPB ONE ×3 (12:43→14:58)
[2018-03-06] MEDS: MAGNESIUM OXIDE 400 MG TABLET (FP) PO SCH ×2 (12:49→22:01)
[2018-03-06] MEDS: KCL 10 MEQ IVPB 10 MEQ/100 ML INFUS.BAG IVPB SCH ×6 (12:50→23:20)
--- NOTE | 2018-03-06 18:06 | PN ---
Teaching Attending Note Name of Resident: Benito Vera ATTENDING PHYSICIAN STATEMENT I saw and evaluated the patient. I reviewed the resident's note and discussed the case with the resident. I agree with the resident's findings and plan as documented. SUBJECTIVE:requesting food. states he vomited several times but now nausea and vomiting has resolved. states he does not think he had a seizure that he just fell backwards. states he has had seizures in the past when he does not drink but does not take any medications for this. denies Cp, SOB, fever, chills, N/V/C /D, PAREDES, blurred vision, auditory/visual hallucinations denies vomiting blood but reports from RN that coffee ground emesis was witnessed in the ER OBJECTIVE: Last Vital Signs Temp Pulse Resp BP Pulse Ox 99.1 F 86 23 H 122/94 98 03/06/18 15:08 03/06/18 15:08 03/06/18 15:08 03/06/18 15:08 03/06/18 15:08 General NAD HEENT tongue laceration to tip of tongue. tongue is black and swollen Lungs CTA B/L no wheezing/rales/rhonchi CV S1 S2 RRR no murmur/rub/gallop Abdomen soft NT/ND no fluid wave. Extremities no pedal edema, no tremors ASSESSMENT AND PLAN: 54yo M with PMH Continuous ETOH dependence, ETOH withdrawal seizure, HTN, dieulofoy lesion presented to the ER iwth epigastric pain and vomiting coffee ground emesis 1. UGI bleed- witnessed coffee ground emesis. start NPO, IVF, PPI ggt, 2 bore needles. trend CBC Q8H. consult GI. may need repeat EGD. 2. Seizure- most likely ETOH withdrawal. does not recall the event however signs consistent with seizure activity. was loaded in the Er with keppra and started on 50mmg BID. will cont for now. Neuro on board 3. Thrombocytopenia- liekly due to drinking vs PPI use. transfused 1 unit of platlets given active bleeding. monitor 4. ETOH withdrawal- CIWA 4. on librium protocol. counselled on risks assoc with drinking. interested in detox but not sure if he wants inpatient rehab. banana bag in the ER. then thiamine/folate/MVI 5. Rhabdomyolsis- likely due to seizure and unknown period on the ground. repeat CPK as trending up. aggressive IVF. 6. UTi- on ceftriaxone day 1. f/u Cx 7. Hypomagnesemia- Mg 800mg po. trend 8. Hypokalemia- KCl IV and po. repeat 9. Hyponatremia- dehydration from decreased po intake. IVF 10. DVT ppx- SCD. hold pharmacologic in setting of bleeding and thrombocytopenia
[2018-03-06] MEDS ORDERED: PANTOPRAZOLE SODIUM 40 MG VIAL ONE (18:33)
[2018-03-06 19:29] LABS: HEMOGLOBIN 12.5 GM/dL (11.7-16.9); MCH 25.4 pg (25.7-33.7); MCHC 32.1 g/dl (32.0-35.9); MEAN CELL VOLUME 79.2 fl (80-96); PLATELET COUNT 44 K/MM3 (134-434); RBC 4.93 M/mm3 (4.00-5.60); RDW 20.3 % (11.9-15.9); WHITE BLOOD COUNT 3.8 K/mm3 (4.0-10.0)
[2018-03-06 20:12] LABS: ANION GAP 9 MMOL/L (8-16); BLOOD UREA NITROGEN 8 mg/dL (7-18); CALCIUM 7.7 mg/dL (8.5-10.1); CHLORIDE 95 mmol/L (98-107); CO2 29 mmol/L (21-32); CREATININE 0.4 mg/dL (0.55-1.3); GLUCOSE,RANDOM 72 mg/dL (74-106); MAGNESIUM 1.5 mg/dL (1.8-2.4); PHOSPHOROUS 2.1 mg/dL (2.5-4.9); POTASSIUM 3.2 mmol/L (3.5-5.1); SODIUM 133 mmol/L (136-145)
[2018-03-06] MEDS: PANTOPRAZOLE SODIUM 80 MG in SODIUM CHLORIDE 100 ML IVPB SCH (21:11)
[2018-03-07] MEDS ORDERED: LORazepam 2 MG/ML SDV VIAL ONE (03:01)
[2018-03-07] MEDS: LORazepam 2 MG/ML SDV VIAL IVPUSH ONE (03:03)
[2018-03-07] MEDS ORDERED: chlordiazePOXIDE HCL 25 MG CAPSULE PO ONE (03:55)
[2018-03-07] MEDS: PANTOPRAZOLE SODIUM 80 MG in SODIUM CHLORIDE 100 ML IVPB SCH (04:20)
[2018-03-07] MEDS: chlordiazePOXIDE HCL 25 MG CAPSULE PO SCH ×2 (05:04→11:54)
--- NOTE | 2018-03-07 05:55 | HOSP ---
Subjective - Review of Symptoms Events since last encounter: Paged overnight multiple times by nurse due to agitation. Pt was given Ativan 2mg and Librium 25 mg earlier in the night, but with no effect according to nurse. Later notified by nurse at 430am that patient wanted to sign out AMA. Indonesian- speaking pt informed by Dr. Rodriguez that he cannot leave AMA as he is not of sound capacity due to his alcohol withdrawal. Also informed patient of possible risks of leaving hospital if treatment is incomplete and even possibility of . After conversation, pt was agreeable to cooperate and continue treatment in hospital. Physical Examination Vital Signs: Vital Signs Temperature 97.9 F 03/07/18 01:32 Pulse Rate 85 03/07/18 01:32 Respiratory Rate 18 03/07/18 01:32 Blood Pressure 153/83 03/07/18 01:32 O2 Sat by Pulse Oximetry (%) 95 03/06/18 20:31 Labs: CBC, BMP 03/06/18 19:05 03/06/18 19:05 Visit type - Emergency Visit Emergency Visit: Yes ED Registration Date: 03/05/18 Care time: The patient presented to the Emergency Department on the above date and was hospitalized for further evaluation of their emergent condition. - New Patient This patient is new to me today: No - Critical Care Critical Care patient: No
[2018-03-07] MEDS ORDERED: LORazepam 2 MG/ML SDV VIAL IVPUSH ONE ×5 (06:28→10:51)
[2018-03-07] MEDS ORDERED: MAGNESIUM SULF 50% (8.12 MEQ/2 ML-1 GM VIAL) IVPB ONE (06:58)
[2018-03-07 07:32] LABS: BASO % 0.8 % (0-2.0); EOS % 0.8 % (0-4.5); HEMOGLOBIN 12.8 GM/dL (11.7-16.9); MCH 25.1 pg (25.7-33.7); MCHC 31.2 g/dl (32.0-35.9); MEAN CELL VOLUME 80.5 fl (80-96); MEAN PLT VOLUME 9.1 fl (7.5-11.1); NEUT % 72.4 % (42.8-82.8); PLATELET COUNT 59 K/MM3 (134-434); RBC 5.09 M/mm3 (4.00-5.60); RDW 20.7 % (11.9-15.9)
[2018-03-07 07:49] LABS: INR 1.13 (0.83-1.09); PROTHROMBIN TIME (PATIENT) 13.4 SEC (9.7-13.0)
[2018-03-07 08:08] LABS: ALBUMIN 3.8 g/dl (3.4-5.0); ALK PHOS 69 U/L (45-117); ANION GAP 16 MMOL/L (8-16); BILIRUBIN,TOTAL 2.4 mg/dL (0.2-1); BLOOD UREA NITROGEN 10 mg/dL (7-18); CALCIUM 8.3 mg/dL (8.5-10.1); CHLORIDE 94 mmol/L (98-107); CO2 23 mmol/L (21-32); CREATININE 0.6 mg/dL (0.55-1.3); GLUCOSE,RANDOM 70 mg/dL (74-106); MAGNESIUM 1.5 mg/dL (1.8-2.4); POTASSIUM 3.3 mmol/L (3.5-5.1); SGOT/AST 141 U/L (15-37); SGPT/ALT 72 U/L (13-61); SODIUM 132 mmol/L (136-145)
[2018-03-07] MEDS ORDERED: HALOPERIDOL LACTATE 5 MG/ML IM ONE (08:16)
[2018-03-07 08:46] LABS: BILIRUBIN,DIRECT 0.8 mg/dL (0.0-0.2)
[2018-03-07] MEDS: LORazepam 2 MG/ML SDV VIAL IVPUSH PRN ×6 (09:20→22:25)
[2018-03-07] MEDS ORDERED: chlordiazePOXIDE 5 MG CAPSULE PO SCH (11:00)
--- NOTE | 2018-03-07 11:13 | PN ---
Progress Note, Physician Chief Complaint: seizure, alcohol withdrawal History of Present Illness: Patient with history of prior seizures and heavy drinking, consumed a bottle of rum, and reportedly lost consciousness. History is very sketchy, but apparently found by friend who called EMS. No witnessed seizure activity, but he does have bump on head and tongue laceration suggesting seizure. He has had prior seizures and is not on anticonvulsants and is not followed by a neurologist. Its not clear if all the seizures were in the setting of alcohol withdrawal. Patient apparently indicated yesterday that this was the case, and if this is so, Keppra can be discontinued. I walked in on the patient this AM as the house staff was treating acute alcohol withdrawal. - Current Medication List Current Medications: Active Medications Chlordiazepoxide HCl (Librium -) 25 mg PO [id number] ALPA Stop: 03/07/18 23:01 Last Admin: 03/07/18 05:04 Dose: 25 mg Ceftriaxone Sodium 1 gm/ (Dextrose) 50 mls @ 100 mls/hr IVPB DAILY ALPA; Protocol Last Admin: 03/06/18 10:30 Dose: 100 mls/hr Pantoprazole Sodium 80 mg/ (Sodium Chloride) 100 mls @ 10 mls/hr IVPB Q10H ALPA Last Admin: 03/07/18 04:20 Dose: Not Given Dextrose/Sodium Chloride (Dextrose 5%-Normal Saline+40 Meq Kcl -) 40 meq in 1, 000 mls @ 125 mls/hr IV ASDIR ALPA Levetiracetam (Keppra -) 500 mg PO BID ALPA Last Admin: 03/06/18 22:01 Dose: 500 mg Lorazepam (Ativan Injection -) 2 mg IVPUSH Q1H PRN PRN Reason: AGITATION Last Admin: 03/07/18 10:13 Dose: 2 mg - Objective Vital Signs: Vital Signs Temperature 99 F 03/07/18 05:00 Pulse Rate 110 H 03/07/18 05:00 Respiratory Rate 18 03/07/18 05:00 Blood Pressure 103/40 L 03/07/18 05:00 O2 Sat by Pulse Oximetry (%) 95 03/06/18 20:31 Neurological: Yes: Other (agitated and tremulous) Labs: CBC, BMP 03/07/18 05:30 03/07/18 05:30 INR, PTT INR 1.13 (0.83-1.09) H 03/07/18 05:30 Problem List - Problems (1) Seizure Code(s): R56.9 - UNSPECIFIED CONVULSIONS (2) Alcohol abuse Code(s): F10.10 - ALCOHOL ABUSE, UNCOMPLICATED (3) Alcohol dependence with uncomplicated withdrawal Code(s): F10.230 - ALCOHOL DEPENDENCE WITH WITHDRAWAL, UNCOMPLICATED Assessment/Plan He most likely had a seizure based on his tongue laceration and history of prior events. What is unclear is if he has a seizure disorder, that is, epilepsy, that would warrant maintaining him on Keppra. Keppra would have no role in pure alcohol withdrawal seizures, as the only treatment for this would be avoidance of alcohol withdrawal (most expeditiously by cessation of drinking). As he wakes up more and/or family or friends become available we should be able to get more history. In the mean time, we can continue the keppra and detox him. Thiamine and vitamin repletion. Thanks.
--- NOTE | 2018-03-07 11:35 | PN ---
Physical Exam: SUBJECTIVE: Patient seen and examined this AM. Overnight events noted. Initially calm and resting in bed. Pt denies any pain and is requesting to go home. Security present at bedside. Pt asking how many days he would be in hospital. Told him likely two days, at that point he got out of bed and began becoming violent and beligerant with security as he was told he could not leave the room. He is extremely disoriented and having hallucinations. Requiring numerous security guards and physical restraints. In addition, pt was repeatedly trying to expose himself. OBJECTIVE: Vital Signs Period Temp Pulse Resp BP Sys/Boykin Pulse Ox Last 24 Hr 97.9 F-99.1 F 84-110 18-23 103-153/40-94 95-98 GENERAL: Alert, oriented to person only, very agitated and violent Rest of exam prior to pt becoming more agitated again. HEAD: Normocephalic, abrasion noted on anterior superior head more so on the right, healing EYES: PERRL, no scleral icterus, sclera injected EARS, NOSE, THROAT: Dried blood noted on tongue still where pt bit his tongue, no acute bleeding NECK: supple without lymphadenopathy LUNGS: CTA b/l, no crackles or wheezes HEART: Regular rate and rhythm, normal S1 and S2 without murmur ABDOMEN: Soft, mildly tender to palpation diffusely, normoactive bowel sounds MUSCULOSKELETAL: No bony deformities or tenderness. NEUROLOGICAL: Cranial nerves II-XII grossly intact. Speech difficult to understand but improved from yesterday Laboratory Results - last 24 hr 03/06/18 03/06/18 03/06/18 11:05 18:50 19:05 WBC 3.8 L RBC 4.93 Hgb 12.5 Hct 39.0 MCV 79.2 L MCH 25.4 L MCHC 32.1 RDW 20.3 H Plt Count 44 L MPV 9.0 Absolute Neuts (auto) Neutrophils % Lymphocytes % Monocytes % Eosinophils % Basophils % Nucleated RBC % PT with INR INR Sodium Potassium Chloride Carbon Dioxide Anion Gap BUN Creatinine Creat Clearance w eGFR Random Glucose Calcium Phosphorus Magnesium Total Bilirubin Direct Bilirubin AST ALT Alkaline Phosphatase Creatine Kinase 1866 H Creatine Kinase Index 0.6 CK-MB (CK-2) 12.8 H Total Protein Albumin Blood Type A POSITIVE 03/06/18 03/07/18 03/07/18 19:05 05:30 05:30 WBC 6.0 RBC 5.09 Hgb 12.8 Hct 41.0 MCV 80.5 MCH 25.1 L MCHC 31.2 L RDW 20.7 H Plt Count 59 L D MPV 9.1 Absolute Neuts (auto) 4.3 Neutrophils % 72.4 Lymphocytes % 16.0 Monocytes % 10.0 Eosinophils % 0.8 Basophils % 0.8 Nucleated RBC % 0 PT with INR INR Sodium 133 L 132 L Potassium 3.2 L 3.3 L Chloride 95 L 94 L Carbon Dioxide 29 23 Anion Gap 9 16 BUN 8 10 Creatinine 0.4 L 0.6 Creat Clearance w eGFR > 60 > 60 Random Glucose 72 L 70 L Calcium 7.7 L 8.3 L Phosphorus 2.1 L 2.0 L Magnesium 1.5 L 1.5 L Total Bilirubin 2.4 H Direct Bilirubin 0.8 H AST 141 H ALT 72 H Alkaline Phosphatase 69 Creatine Kinase 1998 H Creatine Kinase Index 0.6 CK-MB (CK-2) 13.7 H Total Protein 8.0 Albumin 3.8 Blood Type 03/07/18 05:30 WBC RBC Hgb Hct MCV MCH MCHC RDW Plt Count MPV Absolute Neuts (auto) Neutrophils % Lymphocytes % Monocytes % Eosinophils % Basophils % Nucleated RBC % PT with INR 13.40 H INR 1.13 H Sodium Potassium Chloride Carbon Dioxide Anion Gap BUN Creatinine Creat Clearance w eGFR Random Glucose Calcium Phosphorus Magnesium Total Bilirubin Direct Bilirubin AST ALT Alkaline Phosphatase Creatine Kinase Creatine Kinase Index CK-MB (CK-2) Total Protein Albumin Blood Type Active Medications Generic Name Dose Route Start Last Admin Trade Name Freq PRN Reason Stop Dose Admin Chlordiazepoxide HCl 25 mg 03/07/18 05:00 03/07/18 05:04 Librium - PO 03/07/18 23:01 25 mg [id number] ALPA Administration Ceftriaxone Sodium 1 gm/ 50 mls @ 100 mls/hr 03/06/18 10:00 03/06/18 10:30 Dextrose IVPB 100 mls/hr DAILY ALPA Administration Protocol Pantoprazole Sodium 80 mg/ 100 mls @ 10 mls/hr 03/06/18 18:15 03/07/18 04:20 Sodium Chloride IVPB Not Given Q10H ALPA 8 MG/HR Dextrose/Sodium Chloride 40 meq in 1,000 mls @ 125 mls/hr 03/07/18 08:15 Dextrose 5%-Normal Saline+40 Meq Kcl - IV ASDIR ALPA Levetiracetam 500 mg 03/05/18 22:00 03/06/18 22:01 Keppra - PO 500 mg BID ALPA Administration Lorazepam 2 mg 03/07/18 08:17 03/07/18 10:13 Ativan Injection - IVPUSH 2 mg Q1H PRN Administration AGITATION ASSESSMENT/PLAN: 54 yo Andorran-speaking male with PMH of GI bleed, EtOH abuse, seizures, HTN, anemia presents to the ED s/p fall with head trauma. LOC with Fall and Head Trauma - Pt in Severe Dilerium Tremens -Seizure likely secondary to alcohol withdrawals, -Pt drinks 1L hard liquor daily per chart and other providers -Neurology Consult appreciated -CT Head: no acute bleed -Keppra loaded, maintenance with 500 mg PO BID -CIWA 35 by my calculation earlier today, improved on ativan -Pt became very agitated and violent, requiring numerous security guards and restraints -Ativan repeated until agitation improved -Ativan 2mg Q1H PRN for agitation, hold for increased lethargy or respiratory depression GI bleed with mild anemia -Anemia likely secondary to acute losses, as pt noted with Coffee ground emesis by nursing -Fecal Occult positive -Trend H/H -Repeat CBC stable -GI Consult placed -Protonix 40 IV Daily -Pt with known extensive GI bleed hx -Maintain NPO -Vitals Stable Rhabdomyolysis -CK elevated to 1533, increasing as pt was refusing IV fluids, -2+ blood with 6 RBCs, 3+ protein -D5 NS + 40 mEq K+ @ 125 cc/hr Possible UTI -Trace LE with 35 WBCs -Rocephin 1gm IV Daily HTN -Does not take any home meds, pressure currently stable DVT Prophylaxis -SCDs, pt refusing FEN -Fluids: D5 NS + 40 mEq K+ @ 125 cc/hr -Electrolytes: Hypokalemia, Mg low, repleted, BMP in AM -Nutrition: NPO Disposition Med/Surg Visit type - Emergency Visit Emergency Visit: Yes ED Registration Date: 03/05/18 Care time: The patient presented to the Emergency Department on the above date and was hospitalized for further evaluation of their emergent condition. - New Patient This patient is new to me today: No - Critical Care Critical Care patient: Yes Total Critical Care Time (in minutes): 80 Critical Care Statement: The care of this patient involved high complexity decision making to prevent further life threatening deterioration of the patient 's condition and/or to evaluate & treat vital organ system(s) failure or risk of failure.
[2018-03-07] MEDS ORDERED: MAGNESIUM SULF 50% (8.12 MEQ/2 ML-1 GM VIAL) ONE (11:51)
[2018-03-07] MEDS: levETIRAcetam 500 MG TABLET (FP) PO SCH (11:53)
[2018-03-07] MEDS: D5-NS + 40 MEQ KCL - 40 MEQ/1,000 ML INFUS.BAG IV SCH ×2 (11:53→17:39)
[2018-03-07] MEDS ORDERED: cefTRIAXone SODIUM 1 GM VIAL ONE (12:32)
[2018-03-07] MEDS ORDERED: DEXTROSE 5%-WATER - 50 ML IVPB ONE (12:33)
[2018-03-07] MEDS: CEFTRIAXONE 1 GM in DEXTROSE 5%-WATER - 50 ML IVPB SCH (12:38)
--- NOTE | 2018-03-07 13:11 | CON.GI ---
Consult Consult Specialty:: GI Referred by:: Hospitalist Service Reason for Consultation:: Coffee ground emesis - History of Present Illness Chief Complaint: Patient sedated: unable to give CC History of Present Illness: 54M admitted s/p fall, ? seizure. Has h/o alcohol abuse. He underwent EGD performed by Dr. Hester that revealed severe erosive esophagitis. PPI therapy was advised along with outpatient follow-up. he was found heavily sedated today as he has been combative and uncooperative. he received multiple doses of ativan and received haldol as well. Concern was for alcohol withdrawal. There has been no overt bleeding and H/H as been stable. A stool guaiac was positive. 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") - Smoking History Smoking history: Never smoked Have you smoked in the past 12 months: No Aproximately how many cigarettes per day: 20 Home Medications - Allergies Allergies/Adverse Reactions: Allergies Allergy/AdvReac Type Severity Reaction Status Date / Time No Known Allergies Allergy Verified 03/05/18 16:05 - Home Medications Home Medications: Ambulatory Orders Ferrous Sulfate [Feosol] 325 mg PO DAILY@0800 #30 tab 05/31/17 Folic Acid - 1 mg PO DAILY #30 tablet 05/31/17 Thiamine HCl [Vitamin B1 -] 100 mg PO DAILY #30 tablet 05/31/17 Pantoprazole Sodium [Protonix] 40 mg PO DAILY #56 tablet. 07/18/17 Sucralfate [Carafate] 1 gm PO QID 09/28/17 Family Disease History - Family Disease History Family History: Unable to Obtain Review of Systems Unable to obtain ROS, reason: Patient sedated Physical Exam-GI Vital Signs: Vital Signs Temperature 99 F 03/07/18 05:00 Pulse Rate 110 H 03/07/18 05:00 Respiratory Rate 18 03/07/18 05:00 Blood Pressure 103/40 L 03/07/18 05:00 O2 Sat by Pulse Oximetry (%) 95 03/06/18 20:31 Constitutional: Yes: Calm Eyes: No: Sclera Icterus (pterygium right eye) Cardiovascular: Yes: Tachycardia. No: Murmur Respiratory: Yes: Diminished (at bases b/l w/ poor insp effort) Gastrointestinal Inspection: No: Distention, Scars ...Auscultate: Yes: Normoactive Bowel Sounds ...Palpate: Yes: Tenderness (No grimacing upon palpation) ...Percussion: No: Tympanitic Edema: No (No LE edema) Neurological: Yes: Other (sedated) Labs: CBC, BMP 03/07/18 05:30 03/07/18 05:30 INR, PTT INR 1.13 (0.83-1.09) H 03/07/18 05:30 Laboratory Tests 05/29/17 09/28/17 06:05 06:44 Hep A IgM Ab Confirm Negative Hepatitis A Ab Total Positive H Hep Bs Antigen Negative Hep Bs Antibody Non reactive Hep B Core Total Ab Negative Hepatitis C Antibody <0.1 HIV 1&2 Ag/Ab, 4th Gen Non reactive Laboratory Tests 03/07/18 05:30 Creatine Kinase 1998 H Problem List - Problems (1) GIB (gastrointestinal bleeding) Assessment/Plan: There is no evidence of significant ongoing GI bleeding. H/H stable He has a history of erosive esophagitis and continues to abuse alcohol. It is unclear if he has been compliant with acid suppressive therapy advised at his last or with medical compliance in general Advise: Treatment of suspected ETOH withdrawl per primary team Close monitoring of respiratory status given need for heavy sedation. Discussed with nurse Protonix 40mg IVPB daily, then PO when he can take PO Advance diet when able Treatment of rhabdomyolysis per primary team Monitor and replete lytes Outpatient follow-up for evaluation of + FOBT Needs complete alcohol cessation Code(s): K92.2 - GASTROINTESTINAL HEMORRHAGE, UNSPECIFIED Qualifiers: GI bleed type/associated pathology: unspecified gastrointestinal hemorrhage type Qualified Code(s): K92.2 - Gastrointestinal hemorrhage, unspecified
--- NOTE | 2018-03-07 14:33 | PN ---
Teaching Attending Note Name of Resident: Benito Vera ATTENDING PHYSICIAN STATEMENT I saw and evaluated the patient. I reviewed the resident's note and discussed the case with the resident. I agree with the resident's findings and plan as documented with exceptions below. SUBJECTIVE: Patient seen and examined. confused, trying to get out of bed. unable to assess for ROS. OBJECTIVE: Vital Signs Period Temp Pulse Resp BP Sys/Boykin Pulse Ox Last 24 Hr 97.9 F-99.1 F 84-110 18-23 103-153/40-94 95-98 Intake & Output 03/04/18 03/05/18 03/06/18 03/07/18 23:59 23:59 23:59 23:59 Intake Total 10 710 Balance 10 710 Weight 160 lb 160 lb general: 4 point restraints, trying to get out of bed, oriented to self but not co-operative with further interview CVS;S1S2 regular, tachycardic Abdomen:soft, obese, NT Extremities: no edema, 4 point restraints Home Medications Medication Instructions Recorded Ferrous Sulfate [Feosol] 325 mg PO DAILY@0800 #30 tab 05/31/17 Folic Acid - 1 mg PO DAILY #30 tablet 05/31/17 Thiamine HCl [Vitamin B1 -] 100 mg PO DAILY #30 tablet 05/31/17 Pantoprazole Sodium [Protonix] 40 mg PO DAILY #56 tablet. 07/18/17 Sucralfate [Carafate] 1 gm PO QID 09/28/17 Active Medications Folic Acid (Folic Acid Injection -) 1 mg IVPB DAILY ALPA Stop: 03/09/18 10:01 Ceftriaxone Sodium 1 gm/ (Dextrose) 50 mls @ 100 mls/hr IVPB DAILY ALPA; Protocol Last Admin: 03/07/18 12:38 Dose: 100 mls/hr Dextrose/Sodium Chloride (Dextrose 5%-Normal Saline+40 Meq Kcl -) 40 meq in 1, 000 mls @ 125 mls/hr IV ASDIR ALPA Last Admin: 03/07/18 11:53 Dose: Not Given Levetiracetam (Keppra Injection -) 500 mg IVPB BID ALPA Lorazepam (Ativan Injection -) 2 mg IVPUSH Q1H PRN PRN Reason: AGITATION Last Admin: 03/07/18 10:13 Dose: 2 mg Pantoprazole Sodium (Protonix Iv) 40 mg IVPUSH DAILY ALPA Thiamine HCl (Vitamin B1 Injection -) 100 mg IVPB DAILY [facility] Stop: 03/09/18 10:01 Laboratory Results - last 24 hr 03/06/18 03/06/18 03/06/18 18:50 19:05 19:05 WBC 3.8 L RBC 4.93 Hgb 12.5 Hct 39.0 MCV 79.2 L MCH 25.4 L MCHC 32.1 RDW 20.3 H Plt Count 44 L MPV 9.0 Absolute Neuts (auto) Neutrophils % Lymphocytes % Monocytes % Eosinophils % Basophils % Nucleated RBC % PT with INR INR Sodium 133 L Potassium 3.2 L Chloride 95 L Carbon Dioxide 29 Anion Gap 9 BUN 8 Creatinine 0.4 L Creat Clearance w eGFR > 60 Random Glucose 72 L Calcium 7.7 L Phosphorus 2.1 L Magnesium 1.5 L Total Bilirubin Direct Bilirubin AST ALT Alkaline Phosphatase Creatine Kinase 1866 H Creatine Kinase Index 0.6 CK-MB (CK-2) 12.8 H Total Protein Albumin 03/07/18 03/07/18 03/07/18 05:30 05:30 05:30 WBC 6.0 RBC 5.09 Hgb 12.8 Hct 41.0 MCV 80.5 MCH 25.1 L MCHC 31.2 L RDW 20.7 H Plt Count 59 L D MPV 9.1 Absolute Neuts (auto) 4.3 Neutrophils % 72.4 Lymphocytes % 16.0 Monocytes % 10.0 Eosinophils % 0.8 Basophils % 0.8 Nucleated RBC % 0 PT with INR 13.40 H INR 1.13 H Sodium 132 L Potassium 3.3 L Chloride 94 L Carbon Dioxide 23 Anion Gap 16 BUN 10 Creatinine 0.6 Creat Clearance w eGFR > 60 Random Glucose 70 L Calcium 8.3 L Phosphorus 2.0 L Magnesium 1.5 L Total Bilirubin 2.4 H Direct Bilirubin 0.8 H AST 141 H ALT 72 H Alkaline Phosphatase 69 Creatine Kinase 1998 H Creatine Kinase Index 0.6 CK-MB (CK-2) 13.7 H Total Protein 8.[address] head results reviewed ASSESSMENT AND PLAN: 54yo M with PMH Continuous ETOH dependence, ETOH withdrawal seizure, HTN, dieulofoy lesion presented to the ER iwth epigastric pain and vomiting coffee ground emesis now with DTs -Severe alcohol withdrawal/Delirium Tremens -Alcohol withdrawal seizure -UGI bleed -EGD in 06/2017 with erosive esophagitis -Thrombocytopenia, likely from bone marrow suppression from ETOH use, +/- PPI ( less likely) -Abnormal LFTs, likely alcoholic hepatitis -Hepatic steatosis -Hypokalemia -Hypoglycemia -Hypomagnesemia -Rhabdomyolysis -Lower uncomplicated UTI -Hypovolumic Hyponatremia -ETOH abuse PLan;s Ativan IV prn, severe 1:1 observation. Close respiratory status monitoring. ICU consulted, case discussed with Dr. Davalos, recommend Ativan prn with close respiratory monitoring for now. Fall precautions. Detox consult when mental status improved. Change IVF to D5NS with 40 meq K. Replete Mg. Neurology input noted. Change keppra to IV, follow up EEG, seizure precautions. Add IV folate/thiamine. GI input noted. h/h stable. PPI IV daily for now. TRend CPK. DVTPPX with SCDs for now. Dispo pending clinical improvement. Close hemodynamic and respiratory status monitoring for now. Plan discussed with nursing.
[2018-03-07] MEDS: THIAMINE HCL 200 MG/2 ML VIAL IVPB SCH (17:09)
[2018-03-07] MEDS: FOLIC ACID 5 MG/1 ML IVPB SCH (18:38)
[2018-03-07] MEDS: levETIRAcetam 500 MG/5 ML INJECTION VIAL IVPB SCH (21:15)
[2018-03-08] MEDS: LORazepam 2 MG/ML SDV VIAL IVPUSH PRN (00:05)
[2018-03-08] MEDS ORDERED: chlordiazePOXIDE 5 MG CAPSULE PO SCH (05:00)
[2018-03-08 07:04] LABS: INR 1.14 (0.83-1.09); PROTHROMBIN TIME (PATIENT) 13.5 SEC (9.7-13.0)
[2018-03-08 07:48] LABS: BASO % 1.4 % (0-2.0); EOS % 0.8 % (0-4.5); HEMATOCRIT 40.3 % (35.4-49); HEMOGLOBIN 12.6 GM/dL (11.7-16.9); LYMPH % 13.4 % (8-40); MCHC 31.1 g/dl (32.0-35.9); MEAN CELL VOLUME 80.3 fl (80-96); MEAN PLT VOLUME 9.1 fl (7.5-11.1); MONO % 19.3 % (3.8-10.2); NEUT % 65.1 % (42.8-82.8); PLATELET COUNT 61 K/MM3 (134-434); RBC 5.02 M/mm3 (4.00-5.60); RDW 21.1 % (11.9-15.9); WHITE BLOOD COUNT 3.2 K/mm3 (4.0-10.0)
--- NOTE | 2018-03-08 07:50 | PN ---
Teaching Attending Note Name of Resident: Benito Vera ATTENDING PHYSICIAN STATEMENT I saw and evaluated the patient. I reviewed the resident's note and discussed the case with the resident. I agree with the resident's findings and plan as documented with exceptions below. SUBJECTIVE: Patient seen and examined. more awake, calmer, OBJECTIVE: Vital Signs Period Temp Pulse Resp BP Sys/Boykin Pulse Ox Last 24 Hr 97.8 F-98.8 F 96-114 20-22 118-138/69-89 96-96 Intake & Output 03/05/18 03/06/18 03/07/18 03/08/18 23:59 23:59 23:59 23:59 Intake Total 10 1005 1520 Balance 10 1005 1520 Weight 160 lb 160 lb General: calmer today, less agitated Chest: decreased effort, no rales or wheezing appreciated Abdomen: soft, obese, NT throughout, no voluntary or involuntary guarding or rigidity, positive bowel sounds Extremities: no edema Active Medications Folic Acid (Folic Acid Injection -) 1 mg IVPB DAILY [facility] Stop: 03/09/18 10:01 Last Admin: 03/07/18 18:38 Dose: 1 mg Ceftriaxone Sodium 1 gm/ (Dextrose) 50 mls @ 100 mls/hr IVPB DAILY [facility]; Protocol Last Admin: 03/07/18 12:38 Dose: 100 mls/hr Dextrose/Sodium Chloride (Dextrose 5%-Normal Saline+40 Meq Kcl -) 40 meq in 1, 000 mls @ 125 mls/hr IV ASDIR [facility] Last Admin: 03/07/18 17:39 Dose: 125 mls/hr Levetiracetam (Keppra Injection -) 500 mg IVPB BID [facility] Last Admin: 03/07/18 21:15 Dose: 500 mg Lorazepam (Ativan Injection -) 2 mg IVPUSH Q1H PRN PRN Reason: AGITATION Last Admin: 03/08/18 00:05 Dose: 2 mg Pantoprazole Sodium (Protonix Iv) 40 mg IVPUSH DAILY [facility] Thiamine HCl (Vitamin B1 Injection -) 100 mg IVPB DAILY [facility] Stop: 03/09/18 10:01 Last Admin: 03/07/18 17:09 Dose: 100 mg Laboratory Results - last 24 hr 03/08/18 03/08/18 03/08/18 05:30 05:30 05:30 WBC Cancelled Corrected WBC (auto) Cancelled RBC Cancelled Hgb Cancelled Hct Cancelled MCV Cancelled MCH Cancelled MCHC Cancelled RDW Cancelled Plt Count Cancelled MPV Cancelled Absolute Neuts (auto) Cancelled Neutrophils % Cancelled Lymphocytes % Cancelled Monocytes % Cancelled Eosinophils % Cancelled Basophils % Cancelled Nucleated RBC % Cancelled Platelet Estimate Cancelled Platelet Comment Cancelled PT with INR 13.50 H INR 1.14 H Sodium 133 L Potassium 4.1 Chloride 101 Carbon Dioxide 21 Anion Gap 11 BUN 11 Creatinine 0.5 L Creat Clearance w eGFR > 60 Random Glucose 69 L Calcium 8.0 L Phosphorus 2.5 Magnesium 1.5 L Total Bilirubin 1.6 H AST 184 H ALT 82 H Alkaline Phosphatase 68 Creatine Kinase Creatine Kinase Index CK-MB (CK-2) Total Protein 7.6 Albumin 3.4 03/08/18 03/08/18 07:40 07:40 WBC 3.2 L Corrected WBC (auto) RBC 5.02 Hgb 12.6 Hct 40.3 MCV 80.3 MCH 25.0 L MCHC 31.1 L RDW 21.1 H Plt Count 61 L MPV 9.1 Absolute Neuts (auto) 2.1 Neutrophils % 65.1 Lymphocytes % 13.4 Monocytes % 19.3 H D Eosinophils % 0.8 Basophils % 1.4 Nucleated RBC % 0 Platelet Estimate Platelet Comment PT with INR INR Sodium Potassium Chloride Carbon Dioxide Anion Gap BUN Creatinine Creat Clearance w eGFR Random Glucose Calcium Phosphorus Magnesium Total Bilirubin AST ALT Alkaline Phosphatase Creatine Kinase 4080 H Creatine Kinase Index 0.3 CK-MB (CK-2) 13.2 H Total Protein Albumin ASSESSMENT AND PLAN: 54yo M with PMH Continuous ETOH dependence, ETOH withdrawal seizure, HTN, dieulofoy lesion presented to the ER iwth epigastric pain and vomiting coffee ground emesis now with DTs -Severe alcohol withdrawal/Delirium Tremens -Alcohol withdrawal seizure -UGI bleed -EGD in 06/2017 with erosive esophagitis -Thrombocytopenia, likely from bone marrow suppression from ETOH use, +/- PPI ( less likely) -Leucopenia, likely from above, -Abnormal LFTs, likely alcoholic hepatitis -Hepatic steatosis -Hypokalemia -Hypoglycemia -Hypomagnesemia -Rhabdomyolysis -Lower uncomplicated UTI -Hypovolumic Hyponatremia -ETOH abuse PLan;s Mental status improved. taper ativan. 1:1 observation. Close respiratory status monitoring. Advance diet. aspiration precautions. Transaminases mildly worse, monitor for now. persistent hypoglycemia, advance diet, BGM ACHS. Fall precautions. Detox consult when mental status improved. replete Mg. Neurology input noted. Keppra for now follow up EEG, seizure precautions. IV folate/thiamine. GI input noted. h/h stable. PPI IV daily for now. TRend CPK. Worse today, likely from severe agitation pulling at restraints yesterday. Additional 2l IVF bolus. DVTPPX with SCDs for now. Dispo pending clinical improvement. Close hemodynamic and respiratory status monitoring for now.
[2018-03-08 08:13] LABS: ALBUMIN 3.4 g/dl (3.4-5.0); ALK PHOS 68 U/L (45-117); ANION GAP 11 MMOL/L (8-16); BILIRUBIN,TOTAL 1.6 mg/dL (0.2-1); BLOOD UREA NITROGEN 11 mg/dL (7-18); CHLORIDE 101 mmol/L (98-107); CO2 21 mmol/L (21-32); CREATININE 0.5 mg/dL (0.55-1.3); GLUCOSE,RANDOM 69 mg/dL (74-106); MAGNESIUM 1.5 mg/dL (1.8-2.4); PHOSPHOROUS 2.5 mg/dL (2.5-4.9); POTASSIUM 4.1 mmol/L (3.5-5.1); SGOT/AST 184 U/L (15-37); SGPT/ALT 82 U/L (13-61); SODIUM 133 mmol/L (136-145); TOT PROT 7.6 g/dl (6.4-8.2)
[2018-03-08] MEDS: D5-NS + 40 MEQ KCL - 40 MEQ/1,000 ML INFUS.BAG IV SCH (08:19)
[2018-03-08] MEDS ORDERED: cefTRIAXone SODIUM 1 GM VIAL ONE (09:11)
[2018-03-08] MEDS ORDERED: DEXTROSE 5%-WATER - 50 ML IVPB ONE (09:12)
[2018-03-08] MEDS: FOLIC ACID 5 MG/1 ML IVPB SCH (09:21)
[2018-03-08] MEDS: CEFTRIAXONE 1 GM in DEXTROSE 5%-WATER - 50 ML IVPB SCH (09:22)
[2018-03-08] MEDS: levETIRAcetam 500 MG/5 ML INJECTION VIAL IVPB SCH ×2 (09:28→21:28)
[2018-03-08] MEDS: THIAMINE HCL 200 MG/2 ML VIAL IVPB SCH (09:29)
[2018-03-08] MEDS ORDERED: PANTOPRAZOLE SODIUM 40 MG VIAL IVPUSH SCH (10:00)
[2018-03-08] MEDS ORDERED: SODIUM CHLORIDE 1,000 ML IV STA (10:01)
[2018-03-08] MEDS ORDERED: LORazepam 2 MG/ML SDV VIAL IVPUSH PRN (10:03)
[2018-03-08] MEDS ORDERED: chlordiazePOXIDE HCL 10 MG CAPSULE PO SCH (11:00)
[2018-03-08] MEDS ORDERED: MAGNESIUM SULF 50% (8.12 MEQ/2 ML-1 GM VIAL) IVPB ONE (13:23)
--- NOTE | 2018-03-08 13:31 | PN ---
Physical Exam: SUBJECTIVE: Patient seen and examined this AM. He is more calm today, though overnight events noted per nursing. Pt tolerating meal without wrist restraints. Patient says he is not having any pain and is feeling better than yesterday. OBJECTIVE: Vital Signs Period Temp Pulse Resp BP Sys/Boykin Pulse Ox Last 24 Hr 97.8 F-98.8 F 96-114 20-22 118-144/69-89 96-98 GENERAL: Alert, oriented to person and place HEAD: Normocephalic, abrasion noted on anterior superior head more so on the right, healing EYES: PERRL, no scleral icterus, sclera injected EARS, NOSE, THROAT: Dried blood noted on tongue still where pt bit his tongue, no acute bleeding NECK: supple without lymphadenopathy LUNGS: CTA b/l, no crackles or wheezes HEART: Regular rate and rhythm, normal S1 and S2 without murmur ABDOMEN: Soft, mildly tender to palpation diffusely, normoactive bowel sounds MUSCULOSKELETAL: No bony deformities or tenderness. NEUROLOGICAL: Cranial nerves II-XII grossly intact. Speech improved from yesterday Laboratory Results - last 24 hr 03/08/18 03/08/18 03/08/18 05:30 05:30 05:30 WBC Cancelled Corrected WBC (auto) Cancelled RBC Cancelled Hgb Cancelled Hct Cancelled MCV Cancelled MCH Cancelled MCHC Cancelled RDW Cancelled Plt Count Cancelled MPV Cancelled Absolute Neuts (auto) Cancelled Neutrophils % Cancelled Lymphocytes % Cancelled Monocytes % Cancelled Eosinophils % Cancelled Basophils % Cancelled Nucleated RBC % Cancelled Platelet Estimate Cancelled Platelet Comment Cancelled PT with INR 13.50 H INR 1.14 H Sodium 133 L Potassium 4.1 Chloride 101 Carbon Dioxide 21 Anion Gap 11 BUN 11 Creatinine 0.5 L Creat Clearance w eGFR > 60 Random Glucose 69 L Calcium 8.0 L Phosphorus 2.5 Magnesium 1.5 L Total Bilirubin 1.6 H AST 184 H ALT 82 H Alkaline Phosphatase 68 Creatine Kinase Creatine Kinase Index CK-MB (CK-2) Total Protein 7.6 Albumin 3.4 03/08/18 03/08/18 07:40 07:40 WBC 3.2 L Corrected WBC (auto) RBC 5.02 Hgb 12.6 Hct 40.3 MCV 80.3 MCH 25.0 L MCHC 31.1 L RDW 21.1 H Plt Count 61 L MPV 9.1 Absolute Neuts (auto) 2.1 Neutrophils % 65.1 Lymphocytes % 13.4 Monocytes % 19.3 H D Eosinophils % 0.8 Basophils % 1.4 Nucleated RBC % 0 Platelet Estimate Platelet Comment PT with INR INR Sodium Potassium Chloride Carbon Dioxide Anion Gap BUN Creatinine Creat Clearance w eGFR Random Glucose Calcium Phosphorus Magnesium Total Bilirubin AST ALT Alkaline Phosphatase Creatine Kinase 4080 H Creatine Kinase Index 0.3 CK-MB (CK-2) 13.2 H Total Protein Albumin Active Medications Generic Name Dose Route Start Last Admin Trade Name Freq PRN Reason Stop Dose Admin Folic Acid 1 mg 03/07/18 15:30 03/08/18 09:21 Folic Acid Injection - IVPB 03/09/18 10:01 1 mg DAILY [facility] Administration Ceftriaxone Sodium 1 gm/ 50 mls @ 100 mls/hr 03/06/18 10:00 03/08/18 09:22 Dextrose IVPB 100 mls/hr DAILY [facility] Administration Protocol Dextrose/Sodium Chloride 40 meq in 1,000 mls @ 125 mls/hr 03/07/18 08:15 03/16 08:19 Dextrose 5%-Normal Saline+40 Meq Kcl - IV 125 mls/hr ASDIR [facility] Administration Levetiracetam 500 mg 03/07/18 22:00 03/08/18 09:28 Keppra Injection - IVPB 500 mg BID [facility] Administration Lorazepam 1 mg 03/08/18 10:03 Ativan Injection - IVPUSH Q3H PRN AGITATION Pantoprazole Sodium 40 mg 03/08/18 10:00 03/08/18 09:21 Protonix Iv IVPUSH 40 mg DAILY [facility] Administration Thiamine HCl 100 mg 03/07/18 15:30 03/08/18 09:29 Vitamin B1 Injection - IVPB 03/09/18 10:01 100 mg DAILY [facility] Administration ASSESSMENT/PLAN: 54 yo Chinese-speaking male with PMH of GI bleed, EtOH abuse, seizures, HTN, anemia presents to the ED s/p fall with head trauma. LOC with Fall and Head Trauma - Severe Dilerium Tremens - improving -Seizure likely secondary to alcohol withdrawals, -Pt drinks 1L hard liquor daily per chart and other providers -Neurology Consult appreciated -CT Head: no acute bleed -Keppra loaded, maintenance with 500 mg PO BID -CIWA 35 by my calculation, improved on ativan -Pt became very agitated and violent, requiring numerous security guards and restraints -Ativan repeated until agitation improved -Ativan 2mg Q3 PRN for agitation, hold for increased lethargy or respiratory depression -Continue to taper Ativan as pt tolerates GI bleed with mild anemia -Anemia likely secondary to acute losses, as pt noted with Coffee ground emesis by nursing -Fecal Occult positive -Trend H/H -Repeat CBC stable -GI Consult placed -Protonix 40 IV Daily -Pt with known extensive GI bleed hx -can advance diet as per GI, tolerated clear liquids, will advance to regular -Vitals Stable Rhabdomyolysis -CK elevated to 1533, increasing as pt was refusing IV fluids, -2+ blood with 6 RBCs, 3+ protein -D5 NS + 40 mEq K+ @ 125 cc/hr -Will bolus 2L today as well, CK 4000 today likely secondary to agitation and muscle work yesterday Possible UTI -Trace LE with 35 WBCs -Rocephin 1gm IV Daily HTN -Does not take any home meds, pressure currently stable DVT Prophylaxis -SCDs FEN -Fluids: D5 NS + 40 mEq K+ @ 125 cc/hr -Electrolytes: Hypokalemia, Mg low, repleting, BMP in AM -Nutrition: tolerated clear liquids well, advance to regular diet Disposition Tele Visit type - Emergency Visit Emergency Visit: Yes ED Registration Date: 03/05/18 Care time: The patient presented to the Emergency Department on the above date and was hospitalized for further evaluation of their emergent condition. - New Patient This patient is new to me today: No - Critical Care Critical Care patient: No
--- NOTE | 2018-03-08 19:20 | PN ---
Progress Note (short form) - Note Progress Note: Patient with history of prior seizures and heavy drinking, consumed a bottle of rum, and reportedly lost consciousness. History is very sketchy, but apparently found by friend who called EMS. No witnessed seizure activity, but he does have bump on head and tongue laceration suggesting seizure. He has had prior seizures and is not on anticonvulsants and is not followed by a neurologist. Its not clear if all the seizures were in the setting of alcohol withdrawal. Patient apparently indicated he has always had seizures in setting of ETOH withdrawl, Keppra d/virgilio. Today does not appear to be in withdrawl, exam is non-focal. -Pls. cont to rx. etoh withdrawl, we will sign off, please call if needed. Thank you, Raman Garces MD
[2018-03-08] MEDS: MAGNESIUM OXIDE 400 MG TABLET (FP) PO SCH (21:28)
[2018-03-09] MEDS ORDERED: chlordiazePOXIDE 5 MG CAPSULE PO SCH (05:00)
[2018-03-09 06:42] LABS: HEMATOCRIT 38.1 % (35.4-49); HEMOGLOBIN 11.9 GM/dL (11.7-16.9); MCHC 31.2 g/dl (32.0-35.9); MEAN CELL VOLUME 80.2 fl (80-96); MEAN PLT VOLUME 9.2 fl (7.5-11.1); PLATELET COUNT 70 K/MM3 (134-434); RBC 4.75 M/mm3 (4.00-5.60); RDW 21.1 % (11.9-15.9); WHITE BLOOD COUNT 2.6 K/mm3 (4.0-10.0)
[2018-03-09 06:53] LABS: ALK PHOS 63 U/L (45-117); ANION GAP 8 MMOL/L (8-16); BILIRUBIN,TOTAL 0.8 mg/dL (0.2-1); BLOOD UREA NITROGEN 6 mg/dL (7-18); CALCIUM 7.5 mg/dL (8.5-10.1); CHLORIDE 104 mmol/L (98-107); CO2 25 mmol/L (21-32); CREATININE 0.5 mg/dL (0.55-1.3); GLUCOSE,RANDOM 133 mg/dL (74-106); MAGNESIUM 1.6 mg/dL (1.8-2.4); PHOSPHOROUS 1.9 mg/dL (2.5-4.9); POTASSIUM 3.6 mmol/L (3.5-5.1); SGOT/AST 130 U/L (15-37); SGPT/ALT 74 U/L (13-61); SODIUM 137 mmol/L (136-145); TOT PROT 6.8 g/dl (6.4-8.2)
--- NOTE | 2018-03-09 07:35 | PN ---
Teaching Attending Note Name of Resident: Benito Vera ATTENDING PHYSICIAN STATEMENT I saw and evaluated the patient. I reviewed the resident's note and discussed the case with the resident. I agree with the resident's findings and plan as documented with exceptions below. SUBJECTIVE: Patient seen and examined. awake, ox3, appropriate and conversant. denies any pain or new concerns. OBJECTIVE: Vital Signs Period Temp Pulse Resp BP Sys/Boykin Pulse Ox Last 24 Hr 97.6 F-100.6 F 88-117 20-20 106-144/72-92 98-98 Intake & Output 03/06/18 03/07/18 03/08/18 03/09/18 23:59 23:59 23:59 23:59 Intake Total 10 1005 5645 1820 Output Total 2800 1300 Balance 10 1005 2845 520 Weight 160 lb General: calmer and more interactive, AAOX3 Chest: no rales or wheezing, poor effort Abdomen:soft, obese, NT throughout, positive bowel sounds Extremities: no edema Active Medications Folic Acid (Folic Acid -) 1 mg PO DAILY [facility] Ceftriaxone Sodium 1 gm/ (Dextrose) 50 mls @ 100 mls/hr IVPB DAILY [facility]; Protocol Last Admin: 03/08/18 09:22 Dose: 100 mls/hr Dextrose/Sodium Chloride (Dextrose 5%-Normal Saline+40 Meq Kcl -) 40 meq in 1, 000 mls @ 125 mls/hr IV ASDIR [facility] Last Admin: 03/08/18 08:19 Dose: 125 mls/hr Potassium Phosphate 30 mm/ (Dextrose) 260 mls @ 62.5 mls/hr IVPB ONCE ONE Stop: 03/09/18 11:40 Lorazepam (Ativan Injection -) 1 mg IVPUSH Q3H PRN PRN Reason: AGITATION Last Admin: 03/08/18 17:38 Dose: 1 mg Magnesium Oxide (Mag-Ox -) 400 mg PO BID [facility] Last Admin: 03/08/18 21:28 Dose: 400 mg Magnesium Sulfate (Magnesium Sulfate) 2 gm IVPB ONCE ONE Stop: 03/09/18 07:34 Pantoprazole Sodium (Protonix Iv) 40 mg IVPUSH DAILY [facility] Last Admin: 03/08/18 09:21 Dose: 40 mg Thiamine HCl (Vitamin B1 -) 100 mg PO DAILY [facility] Laboratory Results - last 24 hr 03/08/18 03/08/18 03/08/18 05:30 07:40 07:40 WBC 3.2 L RBC 5.02 Hgb 12.6 Hct 40.3 MCV 80.3 MCH 25.0 L MCHC 31.1 L RDW 21.1 H Plt Count 61 L MPV 9.1 Absolute Neuts (auto) 2.1 Neutrophils % 65.1 Lymphocytes % 13.4 Monocytes % 19.3 H D Eosinophils % 0.8 Basophils % 1.4 Nucleated RBC % 0 Sodium 133 L Potassium 4.1 Chloride 101 Carbon Dioxide 21 Anion Gap 11 BUN 11 Creatinine 0.5 L Creat Clearance w eGFR > 60 POC Glucometer Random Glucose 69 L Calcium 8.0 L Phosphorus 2.5 Magnesium 1.5 L Total Bilirubin 1.6 H AST 184 H ALT 82 H Alkaline Phosphatase 68 Creatine Kinase 4080 H Creatine Kinase Index 0.3 CK-MB (CK-2) 13.2 H Total Protein 7.6 Albumin 3.4 03/08/18 03/08/18 03/09/18 18:16 21:40 05:17 WBC RBC Hgb Hct MCV MCH MCHC RDW Plt Count MPV Absolute Neuts (auto) Neutrophils % Lymphocytes % Monocytes % Eosinophils % Basophils % Nucleated RBC % Sodium Potassium Chloride Carbon Dioxide Anion Gap BUN Creatinine Creat Clearance w eGFR POC Glucometer 129 131 123 Random Glucose Calcium Phosphorus Magnesium Total Bilirubin AST ALT Alkaline Phosphatase Creatine Kinase Creatine Kinase Index CK-MB (CK-2) Total Protein Albumin 03/09/18 03/09/18 05:30 05:30 WBC 2.6 L RBC 4.75 Hgb 11.9 Hct 38.1 MCV 80.2 MCH 25.0 L MCHC 31.2 L RDW 21.1 H Plt Count 70 L MPV 9.2 Absolute Neuts (auto) Neutrophils % Lymphocytes % Monocytes % Eosinophils % Basophils % Nucleated RBC % Sodium 137 Potassium 3.6 Chloride 104 Carbon Dioxide 25 Anion Gap 8 BUN 6 L Creatinine 0.5 L Creat Clearance w eGFR > 60 POC Glucometer Random Glucose 133 H Calcium 7.5 L Phosphorus 1.9 L Magnesium 1.6 L Total Bilirubin 0.8 AST 130 H ALT 74 H Alkaline Phosphatase 63 Creatine Kinase Creatine Kinase Index CK-MB (CK-2) Total Protein 6.8 Albumin 3.0 L ASSESSMENT AND PLAN: 54yo M with PMH Continuous ETOH dependence, ETOH withdrawal seizure, HTN, dieulofoy lesion presented to the ER iwth epigastric pain and vomiting coffee ground emesis now with DTs -Severe alcohol withdrawal/Delirium Tremens -Alcohol withdrawal seizure -UGI bleed -EGD in 06/2017 with erosive esophagitis -Thrombocytopenia, likely from bone marrow suppression from ETOH use, +/- PPI ( less likely) -Leucopenia, likely from above, -Abnormal LFTs, likely alcoholic hepatitis -Hepatic steatosis -Hypokalemia -Hypoglycemia -Hypomagnesemia -Rhabdomyolysis -Lower uncomplicated UTI -Hypovolumic Hyponatremia -ETOH abuse PLan;s Mental status markedly improved. Taper ativan. Librium prn, if ongoing withdrawal concerns, will place on librium taper. 1:1 observation. Close respiratory status monitoring. Patient not agreable to detox rehab currently, wants to 'do it himself'. Detox consult, will follow up. PO as tolerated. aspiration precautions. d/c BGM. Transaminases improved. WBC mild drop, but improved platelets. suspect dilutional component with overall recovery from alcohol related bone marrow suppression, trend CBC. Change folate/thiamine/Protonix to PO. s/p 3 days of ceftriaxone, urine cx noted, change to keflex 500 BID for additional 4 days. Neurology input noted. D/c keppra. seizure precautions Fall precautions. replete K/phos/mg prn. GI input noted, h/h stable. Follow CPK, continue IVF. DVTPPX with SCDs for now. Dispo d/c in 1-2 days if continues to improve and no new concerns. Plan discussed with patient in detail, all questions answered
[2018-03-09] MEDS ORDERED: LORazepam 2 MG/ML SDV VIAL IVPUSH PRN (07:41)
[2018-03-09] MEDS ORDERED: MAGNESIUM SULF 50% (8.12 MEQ/2 ML-1 GM VIAL) IVPB ONE (08:30)
[2018-03-09] MEDS ORDERED: POTASSIUM PHOSPHATE 30 MM in DEXTROSE 5%-WATER - 500 ML IVPB ONE (09:00)
[2018-03-09] MEDS: THIAMINE HCL 100 MG TABLET (FP) PO SCH (09:03)
[2018-03-09] MEDS: PANTOPRAZOLE 40 MG TABLET (FP) PO SCH (09:03)
[2018-03-09] MEDS: FOLIC ACID 1 MG TABLET (FP) PO SCH (09:03)
[2018-03-09] MEDS: MAGNESIUM OXIDE 400 MG TABLET (FP) PO SCH ×2 (09:03→21:09)
[2018-03-09] MEDS: CEPHALEXIN MONOHYDRATE 500 MG CAPSULE (UD) PO SCH ×2 (09:03→21:09)
--- NOTE | 2018-03-09 09:39 | PN ---
Physical Exam: SUBJECTIVE: Patient seen and examined this AM. He is sitting in bed comfortably eating breakfast. He says that he is doing much better than before. OBJECTIVE: Vital Signs Period Temp Pulse Resp BP Sys/Boykin Pulse Ox Last 24 Hr 97.6 F-100.6 F 88-117 20-20 106-144/72-92 98-98 GENERAL: Alert, oriented to person and place HEAD: Normocephalic, abrasion noted on anterior superior head more so on the right, healing EYES: PERRL, no scleral icterus, sclera injected EARS, NOSE, THROAT: Moist mucus membranes NECK: supple without lymphadenopathy LUNGS: CTA b/l, no crackles or wheezes HEART: Regular rate and rhythm, normal S1 and S2 without murmur ABDOMEN: Soft, nontender to palpation, normoactive bowel sounds MUSCULOSKELETAL: No bony deformities or tenderness. NEUROLOGICAL: Cranial nerves II-XII grossly intact. Speech normal. Laboratory Results - last 24 hr 03/08/18 03/08/18 03/09/18 18:16 21:40 05:17 WBC Corrected WBC (auto) RBC Hgb Hct MCV MCH MCHC RDW Plt Count MPV Absolute Neuts (auto) Neutrophils % Lymphocytes % Monocytes % Eosinophils % Basophils % Nucleated RBC % Platelet Estimate Platelet Comment Sodium Potassium Chloride Carbon Dioxide Anion Gap BUN Creatinine Creat Clearance w eGFR POC Glucometer 129 131 123 Random Glucose Calcium Phosphorus Magnesium Total Bilirubin AST ALT Alkaline Phosphatase Creatine Kinase Creatine Kinase Index CK-MB (CK-2) Total Protein Albumin 03/09/18 03/09/18 03/09/18 05:30 05:30 05:30 WBC 2.6 L Cancelled Corrected WBC (auto) Cancelled RBC 4.75 Cancelled Hgb 11.9 Cancelled Hct 38.1 Cancelled MCV 80.2 Cancelled MCH 25.0 L Cancelled MCHC 31.2 L Cancelled RDW 21.1 H Cancelled Plt Count 70 L Cancelled MPV 9.2 Cancelled Absolute Neuts (auto) Cancelled Neutrophils % Cancelled Lymphocytes % Cancelled Monocytes % Cancelled Eosinophils % Cancelled Basophils % Cancelled Nucleated RBC % Cancelled Platelet Estimate Cancelled Platelet Comment Cancelled Sodium 137 Potassium 3.6 Chloride 104 Carbon Dioxide 25 Anion Gap 8 BUN 6 L Creatinine 0.5 L Creat Clearance w eGFR > 60 POC Glucometer Random Glucose 133 H Calcium 7.5 L Phosphorus 1.9 L Magnesium 1.6 L Total Bilirubin 0.8 AST 130 H ALT 74 H Alkaline Phosphatase 63 Creatine Kinase 2768 H Creatine Kinase Index 0.1 CK-MB (CK-2) 4.7 H Total Protein 6.8 Albumin 3.0 L 03/09/18 05:30 WBC Corrected WBC (auto) RBC Hgb Hct MCV MCH MCHC RDW Plt Count MPV Absolute Neuts (auto) Neutrophils % Lymphocytes % Monocytes % Eosinophils % Basophils % Nucleated RBC % Platelet Estimate Platelet Comment Sodium Potassium Chloride Carbon Dioxide Anion Gap BUN Creatinine Creat Clearance w eGFR POC Glucometer Random Glucose Calcium Phosphorus Magnesium Total Bilirubin AST ALT Alkaline Phosphatase Creatine Kinase Cancelled Creatine Kinase Index CK-MB (CK-2) Total Protein Albumin Active Medications Generic Name Dose Route Start Last Admin Trade Name Freq PRN Reason Stop Dose Admin Cephalexin HCl 500 mg 03/09/18 10:00 03/09/18 09:03 Keflex - PO 03/13/18 09:59 500 mg BID [facility] Administration Chlordiazepoxide HCl 25 mg 03/09/18 11:00 Librium - PO 03/10/18 05:01 [id number] [facility] Chlordiazepoxide HCl 15 mg 03/10/18 11:00 Librium - PO 03/11/18 05:01 [id number] [facility] Chlordiazepoxide HCl 25 mg 03/09/18 07:39 Librium - PO 03/12/18 07:38 Q4H PRN WITHDRAWAL(CONT SUBST) Chlordiazepoxide HCl 10 mg 03/11/18 11:00 Librium - PO 03/12/18 05:01 [id number] [facility] Folic Acid 1 mg 03/09/18 10:00 03/09/18 09:03 Folic Acid - PO 1 mg DAILY [facility] Administration Dextrose/Sodium Chloride 40 meq in 1,000 mls @ 125 mls/hr 03/07/18 08:15 03/16 08:19 Dextrose 5%-Normal Saline+40 Meq Kcl - IV 125 mls/hr [facility] Administration Potassium Phosphate 30 mm/ 510 mls @ 62.5 mls/hr 03/09/18 09:00 Dextrose IVPB 03/09/18 17:09 ONCE ONE Lorazepam 1 mg 03/09/18 07:41 Ativan Injection - IVPUSH Q6H PRN AGITATION Magnesium Oxide 400 mg 03/08/18 22:00 03/09/18 09:03 Mag-Ox - PO 400 mg BID [facility] Administration Pantoprazole Sodium 40 mg 03/09/18 10:00 03/09/18 09:03 Protonix - PO 40 mg DAILY [facility] Administration Thiamine HCl 100 mg 03/09/18 10:00 03/09/18 09:03 Vitamin B1 - PO 100 mg DAILY [facility] Administration ASSESSMENT/PLAN: 54 yo [place]-speaking male with PMH of GI bleed, EtOH abuse, seizures, HTN, anemia presents to the ED s/p fall with head trauma. LOC with Fall and Head Trauma - Severe Dilerium Tremens - improving -Seizure likely secondary to alcohol withdrawals, -Pt drinks 1L hard liquor daily per chart and other providers -Neurology Consult appreciated -CT Head: no acute bleed -Keppra loaded, maintenance with 500 mg PO BID -CIWA 35 by my calculation, improved on ativan -Pt became very agitated and violent, requiring numerous security guards and restraints -Ativan was repeated until agitation improved -No longer requiring PRN ativan, PRN librium for now, can restart librium taper if pt requires -Pt adamantly refuses rehab -Detox Consult GI bleed with mild anemia -Anemia likely secondary to acute losses, as pt noted with Coffee ground emesis by nursing -Fecal Occult positive -Trend H/H - stable -GI Consult appreciated -Protonix 40 IV Daily -Pt with known extensive GI bleed hx -Tolerating regular diet well -Vitals Stable Rhabdomyolysis -CK elevated to 1533, increasing as pt was refusing IV fluids, -2+ blood with 6 RBCs, 3+ protein -CK to 4000, peaked, down to 2768 -DC fluids Possible UTI -Trace LE with 35 WBCs -Pt is asymptomatic -Keflex 500 mg PO BID HTN -Does not take any home meds, pressure currently stable DVT Prophylaxis -SCDs FEN -Fluids: none -Electrolytes: Hypokalemia, Mg low, Low phos, repleting, BMP in AM -Nutrition: Regular Diet Disposition Tele, DC planning if pt not requiring librium in 24-48 hours Visit type - Emergency Visit Emergency Visit: Yes ED Registration Date: 03/05/18 Care time: The patient presented to the Emergency Department on the above date and was hospitalized for further evaluation of their emergent condition. - New Patient This patient is new to me today: No - Critical Care Critical Care patient: No
[2018-03-09] MEDS ORDERED: chlordiazePOXIDE HCL 25 MG CAPSULE PO SCH (11:00)
[2018-03-09] MEDS: SODIUM CHLORIDE 1,000 ML IV SCH ×2 (11:06→21:14)
--- NOTE | 2018-03-09 12:27 | CONSULT ---
Consult Detox [facility] Reason for Current Admission/Consult: alcohol use: rehab? - History History of Present Illness: Pt is mostly a Niuean speaker and pt is very confused now- pulling out IV cathter and not able to answer questions. Pt' s sister stated that pt is a heavy drinker and is fine when he drinks but becomes confused when he stops- she does not live with pt and so does not know other details about the pt. Search Terms: Michael junior, 02/14/1964 Search Date: 03/09/2018 12:26:52 PM The Drug Utilization Report below displays all of the controlled substance prescriptions, if any, that your patient has filled in the last twelve months. The information displayed on this report is compiled from pharmacy submissions to the Department, and accurately reflects the information as submitted by the pharmacies. This report was requested by: Mary Grace Joyce | Reference #: [id number] There are no results for the search terms that you entered. - History Source History Provided By: Family Member Limitations to Obtaining History: Language Barrier - Alcohol/Substance Use Hx Alcohol Use: Yes ("[employer]") - Past Medical History [employer]: Yes: Seizure Cardio/Vascular: Yes: HTN Gastrointestinal: Yes: GI Bleed (upper GI bleed confirmed by EGD, shown to have erosive esophagitis) Infectious Disease: Yes: Other (h/o TB treated 2008 per [facility] notes) Psych: Yes: Addictions (alcohol abuse) CIWA Score - CIWA Score Anxiety: 3 Agitation: 4-Moderately Restless Orientation: 4Disoriented Place/Person (pt is confused and disoriented) Assessment Plan - Diagnosis (1) Alcohol use disorder Status: Acute - Plan Plan: Will give pt stat Ativan dose- pt is confused and disoriented X 3. Pt is on prn librium and ativan as he has completed the detox protocol- d/w floor nurse that we may need to give additional doses if pt remains confused. Unable to discuss discharge plans with pt. According to family, during his previous admissions, he has left the hospital within a couple of days of admission.
[2018-03-09] MEDS: chlordiazePOXIDE HCL 25 MG CAPSULE PO PRN ×2 (17:19→21:11)
[2018-03-10 06:48] LABS: BASO % 1.4 % (0-2.0); EOS % 3.5 % (0-4.5); HEMATOCRIT 38.1 % (35.4-49); MCH 25.4 pg (25.7-33.7); MCHC 31.6 g/dl (32.0-35.9); MEAN CELL VOLUME 80.2 fl (80-96); MEAN PLT VOLUME 9.1 fl (7.5-11.1); MONO % 26.3 % (3.8-10.2); NEUT % 35.8 % (42.8-82.8); PLATELET COUNT 91 K/MM3 (134-434); RBC 4.75 M/mm3 (4.00-5.60); RDW 21.6 % (11.9-15.9); WHITE BLOOD COUNT 2.6 K/mm3 (4.0-10.0)
[2018-03-10 07:12] LABS: ALBUMIN 3.2 g/dl (3.4-5.0); ALK PHOS 53 U/L (45-117); ANION GAP 6 MMOL/L (8-16); BILIRUBIN,TOTAL 0.7 mg/dL (0.2-1); BLOOD UREA NITROGEN 7 mg/dL (7-18); CALCIUM 7.8 mg/dL (8.5-10.1); CHLORIDE 104 mmol/L (98-107); CO2 25 mmol/L (21-32); CREATININE 0.5 mg/dL (0.55-1.3); GLUCOSE,RANDOM 111 mg/dL (74-106); MAGNESIUM 1.7 mg/dL (1.8-2.4); PHOSPHOROUS 2.8 mg/dL (2.5-4.9); POTASSIUM 4.2 mmol/L (3.5-5.1); SGOT/AST 132 U/L (15-37); SGPT/ALT 91 U/L (13-61); SODIUM 135 mmol/L (136-145); TOT PROT 7.1 g/dl (6.4-8.2)
[2018-03-10] MEDS ORDERED: MAGNESIUM SULF 50% (8.12 MEQ/2 ML-1 GM VIAL) IVPB ONE (08:46)
[2018-03-10] MEDS: CEPHALEXIN MONOHYDRATE 500 MG CAPSULE (UD) PO SCH (10:34)
[2018-03-10] MEDS: FOLIC ACID 1 MG TABLET (FP) PO SCH (10:34)
[2018-03-10] MEDS: THIAMINE HCL 100 MG TABLET (FP) PO SCH (10:34)
[2018-03-10] MEDS: PANTOPRAZOLE 40 MG TABLET (FP) PO SCH (10:34)
[2018-03-10] MEDS: MAGNESIUM OXIDE 400 MG TABLET (FP) PO SCH (10:34)
[2018-03-10] MEDS ORDERED: chlordiazePOXIDE 5 MG CAPSULE PO SCH (11:00)
[2018-03-10 12:18] LABS: ANISOCYTOSIS 1+; MACROCYTOSIS 0; PLATELET ESTIMATE DECREASED
--- NOTE | 2018-03-10 13:26 | PN ---
Teaching Attending Note Name of Resident: Benito Vera ATTENDING PHYSICIAN STATEMENT I saw and evaluated the patient. I reviewed the resident's note and discussed the case with the resident. I agree with the resident's findings and plan as documented with exceptions below. SUBJECTIVE: Patient seen and examined, AAOX3, pleasant, no complaints, eager to go home OBJECTIVE: Vital Signs Period Temp Pulse Resp BP Sys/Boykin Pulse Ox Last 24 Hr 97.5 F-98.7 F 73-87 18-20 127-142/76-90 98 Intake & Output 03/07/18 03/08/18 03/09/18 03/10/18 23:59 23:59 23:59 23:59 Intake Total 1005 5645 2220 1340 Output Total 2800 2600 1200 Balance 1005 2845 -380 140 General: sitting in bed, pleasant ,OX3, no acute distress Chest: CTAB, no rales or wheezing Abdomen:soft, obese, NT Extremities: no edema or tremors Laboratory Results - last 24 hr 03/09/18 03/09/18 03/09/18 05:30 17:05 20:58 WBC RBC Hgb Hct MCV MCH MCHC RDW Plt Count MPV Absolute Neuts (auto) Total Counted 100 Neutrophils % No Result Required. Neutrophils % (Manual) 51.0 Band Neutrophils % 0.0 Lymphocytes % No Result Required. Lymphocytes % (Manual) 40.0 D Monocytes % Monocytes % (Manual) 8 Eosinophils % Eosinophils % (Manual) 1.0 Basophils % Basophils % (Manual) 0.0 Myelocytes % (Man) Promyelocytes % (Man) Blast Cells % (Manual) Nucleated RBC % Metamyelocytes Hypochromia Platelet Estimate Platelet Comment Polychromasia Poikilocytosis Anisocytosis Microcytosis Macrocytosis Sodium Potassium Chloride Carbon Dioxide Anion Gap BUN Creatinine Creat Clearance w eGFR POC Glucometer 139 122 Random Glucose Calcium Phosphorus Magnesium Total Bilirubin AST ALT Alkaline Phosphatase Creatine Kinase Creatine Kinase Index CK-MB (CK-2) Total Protein Albumin 03/10/18 03/10/18 03/10/18 05:30 05:30 05:30 WBC 2.6 L RBC 4.75 Hgb 12.0 Hct 38.1 MCV 80.2 MCH 25.4 L MCHC 31.6 L RDW 21.6 H Plt Count 91 L D MPV 9.1 Absolute Neuts (auto) 0.9 L Total Counted Neutrophils % 35.8 L D Neutrophils % (Manual) 33.0 L D Band Neutrophils % 1.0 Lymphocytes % 33.0 D Lymphocytes % (Manual) 32.0 Monocytes % 26.3 H Monocytes % (Manual) 24 H D Eosinophils % 3.5 D Eosinophils % (Manual) 5.1 H D Basophils % 1.4 Basophils % (Manual) 2.1 H D Myelocytes % (Man) 3 H D Promyelocytes % (Man) 0 Blast Cells % (Manual) 0 Nucleated RBC % 0 Metamyelocytes 0 Hypochromia 1+ Platelet Estimate Decreased Platelet Comment Present Polychromasia 1+ Poikilocytosis 0 Anisocytosis 1+ Microcytosis 0 Macrocytosis 0 Sodium 135 L Potassium 4.2 Chloride 104 Carbon Dioxide 25 Anion Gap 6 L BUN 7 Creatinine 0.5 L Creat Clearance w eGFR > 60 POC Glucometer Random Glucose 111 H Calcium 7.8 L Phosphorus 2.8 Magnesium 1.7 L Total Bilirubin 0.7 AST 132 H ALT 91 H Alkaline Phosphatase 53 Creatine Kinase 1607 H Cancelled Creatine Kinase Index 0.1 CK-MB (CK-2) 2.9 Total Protein 7.1 Albumin 3.2 L 03/10/18 05:46 WBC RBC Hgb Hct MCV MCH MCHC RDW Plt Count MPV Absolute Neuts (auto) Total Counted Neutrophils % Neutrophils % (Manual) Band Neutrophils % Lymphocytes % Lymphocytes % (Manual) Monocytes % Monocytes % (Manual) Eosinophils % Eosinophils % (Manual) Basophils % Basophils % (Manual) Myelocytes % (Man) Promyelocytes % (Man) Blast Cells % (Manual) Nucleated RBC % Metamyelocytes Hypochromia Platelet Estimate Platelet Comment Polychromasia Poikilocytosis Anisocytosis Microcytosis Macrocytosis Sodium Potassium Chloride Carbon Dioxide Anion Gap BUN Creatinine Creat Clearance w eGFR POC Glucometer 115 Random Glucose Calcium Phosphorus Magnesium Total Bilirubin AST ALT Alkaline Phosphatase Creatine Kinase Creatine Kinase Index CK-MB (CK-2) Total Protein Albumin ASSESSMENT AND PLAN: 54yo M with PMH Continuous ETOH dependence, ETOH withdrawal seizure, HTN, dieulofoy lesion presented to the ER iwth epigastric pain and vomiting coffee ground emesis now with DTs -Severe alcohol withdrawal/Delirium Tremens -Alcohol withdrawal seizure -UGI bleed -EGD in 06/2017 with erosive esophagitis -Thrombocytopenia, likely from bone marrow suppression from ETOH use, +/- PPI ( less likely) -Leucopenia, likely from above, -Abnormal LFTs, likely alcoholic hepatitis -Hepatic steatosis -Hypokalemia -Hypoglycemia -Hypomagnesemia -Rhabdomyolysis -Lower uncomplicated UTI -Hypovolumic Hyponatremia -ETOH abuse PLan;s Markedly improved, OX3, at baseline, able to have appropriate conversation. H/h, LFTs stable. Counseled on alcohol abstinence, offered resources and rehab options patient respectfully declines, wants to do on his own. Strongly advised to avoid ETOH, NSAIDs and follow up in medical clinic and repeat blood work in 1-2 weeks Patient relays full understanding and agrees to comply. D.c home today.
--- NOTE | 2018-03-10 14:25 | DS ---
Physical Exam: SUBJECTIVE: Patient seen and examined this AM. He says that he is feeling much better and agrees that he is ready to go. He is very oriented and aware and states that he will not drink alcohol anymore upon discharge. Patient adamantly refused rehab upon discharge. OBJECTIVE: Vital Signs Period Temp Pulse Resp BP Sys/Boykin Pulse Ox Last 24 Hr 97.5 F-98.6 F 73-87 18-20 127-142/76-88 98 PHYSICAL EXAM GENERAL: Alert, oriented to person and place and time. HEAD: Normocephalic, abrasion well healed. EYES: PERRL, no scleral icterus, sclera injected EARS, NOSE, THROAT: Moist mucus membranes NECK: supple without lymphadenopathy LUNGS: CTA b/l, no crackles or wheezes HEART: Regular rate and rhythm, normal S1 and S2 without murmur ABDOMEN: Soft, nontender to palpation, normoactive bowel sounds MUSCULOSKELETAL: No bony deformities or tenderness. NEUROLOGICAL: Cranial nerves II-XII grossly intact. Speech normal. LABS Laboratory Results - last 24 hr 03/09/18 03/09/18 03/09/18 05:30 17:05 20:58 WBC RBC Hgb Hct MCV MCH MCHC RDW Plt Count MPV Absolute Neuts (auto) Total Counted 100 Neutrophils % No Result Required. Neutrophils % (Manual) 51.0 Band Neutrophils % 0.0 Lymphocytes % No Result Required. Lymphocytes % (Manual) 40.0 D Monocytes % Monocytes % (Manual) 8 Eosinophils % Eosinophils % (Manual) 1.0 Basophils % Basophils % (Manual) 0.0 Myelocytes % (Man) Promyelocytes % (Man) Blast Cells % (Manual) Nucleated RBC % Metamyelocytes Hypochromia Platelet Estimate Platelet Comment Polychromasia Poikilocytosis Anisocytosis Microcytosis Macrocytosis Sodium Potassium Chloride Carbon Dioxide Anion Gap BUN Creatinine Creat Clearance w eGFR POC Glucometer 139 122 Random Glucose Calcium Phosphorus Magnesium Total Bilirubin AST ALT Alkaline Phosphatase Creatine Kinase Creatine Kinase Index CK-MB (CK-2) Total Protein Albumin 03/10/18 03/10/18 03/10/18 05:30 05:30 05:30 WBC 2.6 L RBC 4.75 Hgb 12.0 Hct 38.1 MCV 80.2 MCH 25.4 L MCHC 31.6 L RDW 21.6 H Plt Count 91 L D MPV 9.1 Absolute Neuts (auto) 0.9 L Total Counted Neutrophils % 35.8 L D Neutrophils % (Manual) 33.0 L D Band Neutrophils % 1.0 Lymphocytes % 33.0 D Lymphocytes % (Manual) 32.0 Monocytes % 26.3 H Monocytes % (Manual) 24 H D Eosinophils % 3.5 D Eosinophils % (Manual) 5.1 H D Basophils % 1.4 Basophils % (Manual) 2.1 H D Myelocytes % (Man) 3 H D Promyelocytes % (Man) 0 Blast Cells % (Manual) 0 Nucleated RBC % 0 Metamyelocytes 0 Hypochromia 1+ Platelet Estimate Decreased Platelet Comment Present Polychromasia 1+ Poikilocytosis 0 Anisocytosis 1+ Microcytosis 0 Macrocytosis 0 Sodium 135 L Potassium 4.2 Chloride 104 Carbon Dioxide 25 Anion Gap 6 L BUN 7 Creatinine 0.5 L Creat Clearance w eGFR > 60 POC Glucometer Random Glucose 111 H Calcium 7.8 L Phosphorus 2.8 Magnesium 1.7 L Total Bilirubin 0.7 AST 132 H ALT 91 H Alkaline Phosphatase 53 Creatine Kinase 1607 H Cancelled Creatine Kinase Index 0.1 CK-MB (CK-2) 2.9 Total Protein 7.1 Albumin 3.2 L 03/10/18 05:46 WBC RBC Hgb Hct MCV MCH MCHC RDW Plt Count MPV Absolute Neuts (auto) Total Counted Neutrophils % Neutrophils % (Manual) Band Neutrophils % Lymphocytes % Lymphocytes % (Manual) Monocytes % Monocytes % (Manual) Eosinophils % Eosinophils % (Manual) Basophils % Basophils % (Manual) Myelocytes % (Man) Promyelocytes % (Man) Blast Cells % (Manual) Nucleated RBC % Metamyelocytes Hypochromia Platelet Estimate Platelet Comment Polychromasia Poikilocytosis Anisocytosis Microcytosis Macrocytosis Sodium Potassium Chloride Carbon Dioxide Anion Gap BUN Creatinine Creat Clearance w eGFR POC Glucometer 115 Random Glucose Calcium Phosphorus Magnesium Total Bilirubin AST ALT Alkaline Phosphatase Creatine Kinase Creatine Kinase Index CK-MB (CK-2) Total Protein Albumin IMAGING: CXR: Right upper lobe granuloma, No other acute chest pathology Head CT: Negative for acute fx or bleed RUQ US: Diffuse fatty infiltration of the liver Cervical Spine CT: No evidence of subluxation or fracture Abdomen/Pelvis CT: Minimal atelectasis in lung bases, Fatty infiltrate of liver , small hiatal hernia, few small diverticula without evidence of diverticulitis , Slightly enlarged prostate. Repeat Head CT: No significant interval change, no acute fx or bleed. HOSPITAL COURSE: Date of Admission:03/05/18 Date of Discharge: 03/10/18 HPI from Admission Pt is a 54 y/o [place]-speaking male w/ pmhx of GI bleed, EtOH abuse, seizures, HTN, anemia presents to the ED s/p fall this morning. Pt admits he was intoxicated and drank 1 bottle of rum prior to fall. He reports he hit his head , loss consciousness, but does not know how long he lost consciousness for. He also admits to biting his tongue during the fall. His roommate found him on the floor and called EMS. Admits to fever/chills, dizziness, problems walking due to balance and coordination issues, numbness/tingling in hands x2 days. Additionally, he admits to multiple episodes of non-bloody vomiting prior to fall due to intoxication, nausea after falling and hitting his head, and abdominal pain x2 days. Pt also states he noticed red-colored urine over the past 2 weeks. He admits to frequently staying in bed due to alcohol intoxication. Pt admits to nervousness/anxiety, but denies auditory/visual hallucinations. Denies urinary/bowel incontinence, hx of heart/lung disease. Hospital Course Pt was seen by neurology who recommended Keppra loading and maintenance doses in the setting of an unclear history of alcohol use vs detox. On the day of admission, he was noted to have coffee ground emesis, though H/H remained stable. He was noted with elevated LFTs as well as an elevated CK likely secondary to Rhabdomyolysis, for which he was ordered fluid resuscitation. On 2nd day of hospitalization, pt became very agitated and violent requiring numerous security guards and restraints in addition to numerous repeated doses of ativan. CIWA at that time was estimated around 35 from objective findings, though subjective CIWA categories unable to be scored accurately. Pt responded slowly but appropriately to numerous repeated doses of ativan. Over the next 24 hours he required only a few more doses of ativan. His mental status and orientation improved, and was found to completely resolve back to baseline. Pt was counseled about his alcohol use and agreed to complete cessation, though patient adamantly refused rehab placement and said he would abstain from alcohol on his own without any outside assistance. He was deemed medically safe for discharge and referred to the resident clinic as he does not have a primary care physician. Minutes to complete discharge: 35 Discharge Summary Reason For Visit: ALCOHOL WITHDRAWAL SEIZURE Current Active Problems Alcohol use disorder (Acute) Seizure (Acute) Condition: Stable - Instructions Diet, Activity, Other Instructions: Please Convey Discharge instructions in [place]. You were admitted to the hospital for severe withdrawals from drinking alcohol. You also likely had a seizure due to the withdrawals from alcohol which caused you to lose consciousness and hit your head. Imaging was done of your head which was normal. You were seen by a neurologist (a brain/seizure doctor) who started you on a seizure medication, but it was stopped as your seizure was likely caused by alcohol use. It is very important that you completely stop drinking alcohol. Continuing to drink alcohol can lead to worsening symptoms and health problems including liver failure and even . You should follow up with a primary care doctor in 1-2 weeks to have your blood work checked. Please call medical clinic on discharge to schedule follow up. Information below: [address] [place] [address] You will need follow blood work in 1-2 weeks: CBC (complete blood count) BMP (Basic metabolic panel) Magnesium level Phosphorous levels Please discuss with your doctor at resident clinic for the same. Do not drive or operate heavy machinery till seen by your doctor. Avoid being alone with children, on heights or in water. Avoid tylenol, motrin, Ibuprofen/NSAIDs or any other Over the Counter medications without discussion with your doctor. Take medication as follows: Protonix 40 mg daily Multivitamin 1 tablet once daily Folic Acid 1 mg daily and Thiamine 100 mg daily for 1 week Magnesium 800 mg daily for 3 more days. If you have severe headache, loss of consciousness, new onset weakness or numbness, or have any seizures, jaundice, belly pain, dark or bloody stools, nausea/vomiting, blood or any other concerning symptoms, call 911 or come to the ED. Referrals: Tao Bacon MD [Staff Physician] - 1 Week Disposition: HOME - Home Medications Comprehensive Discharge Medication List: Ambulatory Orders Folic Acid - 1 mg PO DAILY #7 tablet 03/10/18 Magnesium Oxide [Mag-Ox -] 800 mg PO DAILY 3 Days #6 tablet 03/10/18 Multivitamins [Tab-A-Vit -] 1 tab PO DAILY #30 tab 03/10/18 Pantoprazole Sodium [Protonix -] 40 mg PO DAILY #30 tablet.ec 03/10/18 Thiamine HCl [Vitamin B1 -] 100 mg PO DAILY #7 tablet 03/10/18 This patient is new to me today: No Emergency Visit: Yes ED Registration Date: 03/05/18 Care time: The patient presented to the Emergency Department on the above date and was hospitalized for further evaluation of their emergent condition. Critical Care patient: No - Discharge Referral Referred to [facility] Med P.C.: No
[2018-03-10 14:33] VITALS: BP 127/78; PULSE 87; TEMP 98.3
[2018-03-11] MEDS ORDERED: chlordiazePOXIDE HCL 10 MG CAPSULE PO SCH (11:00)
== END 2018-03-10 15:35 | disposition home or self-care (01) | DRG 253 ==
LOC: JER 15:54 → JERBED 21:06 → J4W 03-06 18:30
PROVIDERS: ADMIT Internal Medicine; ATTEND Hospitalist
PROC: 30233R1 Transfusion of Nonautologous Platelets into Peripheral Vein, Percutaneous Approach (ICD-10-PCS; principal; 2018-03-06)
PROC: HZ2ZZZZ Detoxification Services for Substance Abuse Treatment (ICD-10-PCS; 2018-03-06)
DX: K92.2 Gastrointestinal hemorrhage, unspecified (principal); F10.231 Alcohol dependence with withdrawal delirium; R56.9 Unspecified convulsions; D69.6 Thrombocytopenia, unspecified; D72.819 Decreased white blood cell count, unspecified; K76.0 Fatty (change of) liver, not elsewhere classified; E87.6 Hypokalemia; E83.42 Hypomagnesemia; M62.82 Rhabdomyolysis; N39.0 Urinary tract infection, site not specified; E87.1 Hypo-osmolality and hyponatremia; I10 Essential (primary) hypertension; D62 Acute posthemorrhagic anemia
CPT/HCPCS: 36415; 36430; 70450-TC; 71045-TC-FY; 72125-TC; 74177-TC; 76705-TC; 80048; 80053; 80307; 81003; 81015; 82248; 82272; 82550; 82553; 82962; 83605; 83690; 83735; 84100; 84484; 85025; 85027; 85610; 86850; 86900; 86901; 87086; 87186; 93005; 93010; 99285-25; J0131; J7030; P9034

== ENCOUNTER 2018-05-01 13:19 | Inpatient (IN) | payer OTHER ==
--- NOTE | 2018-05-01 13:31 | PDOC ---
Rapid Medical Evaluation Chief Complaint: Back Pain Time Seen by Provider: 05/01/18 13:24 Medical Evaluation: Allergies Allergy/AdvReac Type Severity Reaction Status Date / Time No Known Allergies Allergy Verified 05/01/18 13:25 05/01/18 13:26 I have performed a brief in-person evaluation of this patient. The patient presents with a chief complaint of:abd pain with BRB x 2 today , Admits to drinking small bottle of Vodka. Pertinent physical exam findings: + intox , pale, c/o abd pain / no rebound but diffuse tenderness. I have ordered the following: CBC, CMP, Type and screen, PT/INR, EKG The patient will proceed to the ED for further evaluation., taken by W/C 05/01/18 13:32
[2018-05-01] MEDS ORDERED: SODIUM CHLORIDE 1,000 ML IV STA ×3 (13:44→13:45)
[2018-05-01] MEDS ORDERED: PANTOPRAZOLE SODIUM 40 MG VIAL IVPUSH ONE (13:45)
--- NOTE | 2018-05-01 13:49 | PDOC ---
Attending Attestation - HPI HPI: 05/01/18 13:53 54 yo male with a pmh of GI bleeds and EtOH abuse who presents with weakness, epigastric pain, and multiple episodes of BRB emesis. Patient admits to drinking a bottle of vodka [employer]. <Alberto Armstrong - Last Filed: 05/01/18 13:53> - Resident Resident Name: [facility] - ED Attending Attestation I have performed the following: I have examined & evaluated the patient, The case was reviewed & discussed with the resident, I agree w/resident's findings & plan, Exceptions are as noted - Physicial Exam PE: GENERAL: Awake, alert, +AOB. Appears ill, jaundiced. HEAD: No signs of trauma EYES: PERRLA, EOMI, sclera anicteric, conjunctiva clear ENT: Auricles normal inspection, hearing grossly normal, nares patent, oropharynx clear without exudates. Moist mucosa NECK: Normal ROM, supple, no lymphadenopathy, JVD, or masses LUNGS: Breath sounds equal, clear to auscultation bilaterally. No wheezes, and no crackles HEART: Tachycardic, regular rhythm. ABDOMEN: Soft, nontender, normoactive bowel sounds. No guarding, no rebound. No masses EXTREMITIES: Normal range of motion, no edema. No clubbing or cyanosis. No cords, erythema, or tenderness NEUROLOGICAL: Cranial nerves II through XII grossly intact. Normal speech. Motor and sensation intact. Gait not tested due to nature of complaint. SKIN: Cool, Dry, normal turgor, no rashes or lesions noted. - Critical Care Time Total Critical Care Time: 40 Critical Care Statement: The care of this patient involved high complexity decision making to prevent further life threatening deterioration of the patient 's condition and/or to evaluate & treat vital organ system(s) failure or risk of failure. - Medical Decision Making Pt presented with hematemesis, history of varices. Given IVF and blood emergently, as he was hypotensive and tachycardic. Also given octreotide, protonix. Admitted to ICU. <Manjula Bills - Last Filed: 05/01/18 18:13> Attestations - Attestations Documentation prepared by Alberto Armstrong, acting as medical concierge for Manjula Bills MD. <Alberto Armstrong - Last Filed: 05/01/18 13:53>
[2018-05-01] MEDS ORDERED: PANTOPRAZOLE SODIUM 40 MG VIAL ONE (13:58)
[2018-05-01 14:26] LABS: BASO % 0.1 % (0-2.0); HEMOGLOBIN 14.1 GM/dL (11.7-16.9); LYMPH % 2.8 % (8-40); MCH 27.1 pg (25.7-33.7); MCHC 33.7 g/dl (32.0-35.9); MEAN CELL VOLUME 80.5 fl (80-96); MEAN PLT VOLUME 9.9 fl (7.5-11.1); MONO % 4.2 % (3.8-10.2); NEUT % 92.9 % (42.8-82.8); PLATELET COUNT 89 K/MM3 (134-434); RBC 5.21 M/mm3 (4.00-5.60); RDW 18.1 % (11.9-15.9); WHITE BLOOD COUNT 14.8 K/mm3 (4.0-10.0)
[2018-05-01 14:41] LABS: INR 1.41 (0.83-1.09); PROTHROMBIN TIME (PATIENT) 16.7 SEC (9.7-13.0)
[2018-05-01] MEDS ORDERED: OCTREOTIDE ACETATE 50 MCG/1 ML - 1 ML VIAL IVPUSH ONE (14:55)
[2018-05-01] MEDS ORDERED: ONDANSETRON 4 MG/2 ML VIAL IVPB ONE (15:03)
--- NOTE | 2018-05-01 15:11 | PDOC ---
History of Present Illness - General Chief Complaint: Vomiting Blood Stated Complaint: WEAKNESS Time Seen by Provider: 05/01/18 13:24 History Source: Patient, Old Records Exam Limitations: Language Barrier - History of Present Illness Initial Comments: 05/01/18 15:09 *History limited due to lack of station tender phone. Some history obtained from old records Pt is a 53yo m with PMH of GI bleed, varicies, anemia presenting to ED with complaints of hematemesis that started earlier today. Pt said he drank 1pt of Vodka last night and had around 5-6 episodes of hematemisis this morning. He admits to diffuse abdominal pain, headache, back pain, weakness. He denies changes in vision, chest pain, shortness of breath, urinary symptoms, bloody stools. This is the first time he says he has had hematemesis. He does not follow up with a primary care doctor. Allergies: nkda Social: alcohol use. Denies cigarette, cocaine, marijuana use Meds: none PSH: none Past History - Past Medical History Allergies/Adverse Reactions: Allergies Allergy/AdvReac Type Severity Reaction Status Date / Time No Known Allergies Allergy Verified 05/01/18 13:35 Anemia: Yes (anemia) Asthma: No Cardiac Disorders: No COPD: No Diabetes: No GI Disorders: Yes (gastritis, GIB, Esophogeal varices, Dieulafoy lesion) Disorders: No HTN: Yes Kidney Stones: No Seizures: No - Surgical History Abdominal Surgery: No Appendectomy: No Cardiac Surgery: No Cholecystectomy: No Lung Surgery: No Neurologic Surgery: No Orthopedic Surgery: No - Reproductive History Testicular Surgery: No - Immunization History Immunization Up to Date: No - Suicide/Smoking/Psychosocial Hx Smoking History: Never smoked Have you smoked in the past 12 months: No Number of Cigarettes Smoked Daily: 20 'Breaking Loose' booklet given: 10/06/15 Hx Alcohol Use: Yes Drug/Substance Use Hx: No Substance Use Type: Alcohol Hx Substance Use Treatment: Yes Abd/GI Specific PMHX - Complaint Specific PMHX Hepatitis: No Pancreatitis: No Review of Systems - Review of Systems Constitutional: Yes: Fever. No: Chills HEENTM: No: Blurred Vision, Double Vision, Throat Pain Respiratory: No: Shortness of Breath, Hemoptysis Cardiac (ROS): Yes: Lightheadedness. No: Chest Pain, Palpitations, Syncope ABD/GI: Yes: See HPI, Nausea, Vomiting, Abdominal cramping. No: Abdominal Distended, Constipated, Diarrhea, Rectal Bleeding, Tarry Stools : No: Burning, Dysuria, Hematuria Musculoskeletal: Yes: See HPI, Back Pain. No: Joint Pain, Neck Pain Neurological: Yes: Headache. No: Numbness, Tremors *Physical Exam - Vital Signs Last Vital Signs Temp Pulse Resp BP Pulse Ox 99.1 F 148 H 17 96/84 100 05/01/18 13:34 05/01/18 14:59 05/01/18 14:59 05/01/18 14:59 05/01/18 14:59 - Physical Exam General Appearance: Yes: Moderate Distress, Alcohol on Breath, Other ( diaphoretic) HEENT: positive: EOMI, SHERRI, Pharynx Normal, Scleral Icterus (R) (slight icterus ), Scleral Icterus (L) (slight icterus). negative: Pale Conjunctivae Neck: positive: Trachea midline, Supple. negative: Lymphadenopathy (R), Lymphadenopathy (L) Respiratory/Chest: positive: Crackles (lower lung bases). negative: Normal Breath Sounds, Labored Respiration Cardiovascular: positive: Tachycardia. negative: Edema, JVD, Murmur Vascular Pulses: Carotid (R): 2+, Carotid (L): 2+, Dorsalis-Pedis (R): 2+, Doralis-Pedis (L): 2+ Gastrointestinal/Abdominal: positive: Normal Bowel Sounds, Soft, Distended, Tenderness (epigastric), Other (no distended veins noted). negative: Pulsatile Mass, Guarding, Rebound, Hernia, Mass Musculoskeletal: negative: CVA Tenderness Extremity: positive: Normal Capillary Refill. 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 negative: Sensory Deficit Moderate Sedation - Procedure Monitoring Vital Signs: Procedure Monitoring Vital Signs Temperature 99.1 F 05/01/18 13:34 Pulse Rate 148 H 05/01/18 14:59 Respiratory Rate 17 05/01/18 14:59 Blood Pressure 96/84 05/01/18 14:59 O2 Sat by Pulse Oximetry (%) 100 05/01/18 14:59 ED Treatment Course - LABORATORY CBC & Chemistry Diagram: 05/01/18 17:50 05/01/18 17:50 - ADDITIONAL ORDERS Additional order review: Laboratory Results 05/01/18 05/01/18 05/01/18 13:53 13:53 13:53 PT with INR INR PTT (Actin FS) 29.5 Lipase Cancelled Blood Type Cancelled Antibody Screen Cancelled Crossmatch See Detail 05/01/18 13:53 PT with INR 16.70 H INR 1.41 H PTT (Actin FS) Lipase Blood Type Antibody Screen Crossmatch 05/01/18 13:53 RBC 5.21 MCV 80.5 MCHC 33.7 RDW 18.1 H Neutrophils % 92.9 H D Lymphocytes % 2.8 L D Monocytes % 4.2 D Eosinophils % 0.0 D Basophils % 0.1 - RADIOLOGY Radiology Studies Ordered: Category Date Time Status CHEST X-RAY PORTABLE* [RAD] Stat Radiology 05/01/18 13:48 Completed - Medications Given in the ED: ED Medications Discontinued Medications Generic Name Dose Route Start Last Admin Trade Name Freq PRN Reason Stop Dose Admin Sodium Chloride 1,000 mls @ 1,000 mls/hr 05/01/18 13:44 05/01/18 14:11 Normal Saline - IV 05/01/18 14:43 1,000 mls/hr ASDIR STA Administration Sodium Chloride 1,000 mls @ 1,000 mls/hr 05/01/18 13:45 05/01/18 15:00 Normal Saline - IV 05/01/18 14:44 1,000 mls/hr ASDIR STA Administration Pantoprazole Sodium 80 mg 05/01/18 13:45 05/01/18 14:11 Protonix Iv IVPUSH 05/01/18 13:46 80 mg ONCE ONE Administration Medical Decision Making - Critical Care Time Total Critical Care Time (minutes): 30 Critical Care Statement: The care of this patient involved high complexity decision making to prevent further life threatening deterioration of the patient 's condition and/or to evaluate & treat vital organ system(s) failure or risk of failure. - Medical Decision Making *History limited due to lack of station tender phone. Some history obtained from old records Pt is a 53yo m with PMH of GI bleed, varicies, anemia presenting to ED with complaints of hematemesis that started earlier today Vitals: tachycardia 170s, hypotensive 80s/50s, tachypneic saturating at 94%RA , afebrile PE: epigastric tenderness, diaphoretic, dried blood in mouth, no signs of cirrhosis, no asterexis. DDx: ruptured esophogeal varicies, gastritis, -vitals most likely due to hemorrhage. Will start pt on fluids, give 1u blood. will give protonix IVpush 80mg. CBC CMP, lactate, pt/inr, aptt drawn, lipase. Labs significant for WBC 14.8-started pt on vanc/zosyn. K 2.6 (given 3x 10meQ K IV). Given Zofran for nausea. Lactate 9.2. Will repeat after fluids. H/H 14.. Laboratory Tests 05/01/18 05/01/18 13:53 17:50 Sodium 131 L Chloride 86 L Carbon Dioxide 18 L Anion Gap 27 H BUN 27 H Creatinine 1.7 H Calcium 7.3 L Total Bilirubin 1.4 H AST 57 H Lipase 181 Alcohol, Quantitative 236.1 H Vitals: HR 140s, BP 116/80, 94%RA. Pt had 2 episodes of hematemsis in ED. Started on Octreotide. CXR: no acute changes from prior in February. 05/01/18 15:[address] Rinaldi, awaiting call back. EKG: sinus tachycardia. 05/01/18 15:46 Paged ICU. On board however no beds. Pt bp improved to 116 systolic and HR 130s. Pt admitted for GI bleed. Mg low, 0.9 was given IV Mg, whilst down here pt had episode of SVT with HR in 170s. given adenosine 6, 2 repeats of 12. Given metoprolol which dropped HR back to 140s. Saturating low 90s/high 80s with NC. temperature of 105, started on IV Tylenol. Blood cultures drawn. Hsu placed. Sent to ICU *DC/Admit/Observation/Transfer Diagnosis at time of Disposition: GI bleed Qualifiers: GI bleed type/associated pathology: gastrointestinal hemorrhage with hematemesis Qualified Code(s): K92.0 - Hematemesis - Discharge Dispostion Condition at time of disposition: Fair Decision to Admit order: Yes - Referrals - Patient Instructions - Post Discharge Activity
[2018-05-01 15:13] LABS: ALBUMIN 3.6 g/dl (3.4-5.0); ALK PHOS 68 U/L (45-117); ANION GAP 27 MMOL/L (8-16); BILIRUBIN,TOTAL 1.4 mg/dL (0.2-1); BLOOD UREA NITROGEN 27 mg/dL (7-18); CALCIUM 7.3 mg/dL (8.5-10.1); CHLORIDE 86 mmol/L (98-107); CO2 18 mmol/L (21-32); CREATININE 1.7 mg/dL (0.55-1.3); GLUCOSE,RANDOM 91 mg/dL (74-106); LIPASE 181 U/L (73-393); SGOT/AST 57 U/L (15-37); SGPT/ALT 42 U/L (13-61); SODIUM 131 mmol/L (136-145); TOT PROT 7.8 g/dl (6.4-8.2)
[2018-05-01 15:15] LABS: POTASSIUM 2.9 mmol/L (3.5-5.1)
[2018-05-01] MEDS ORDERED: PIPERACILLIN/TAZOB 3.375 GM 3.375 GM in DEXTROSE 5%-WATER - 50 ML IVPB ONE (15:23)
[2018-05-01] MEDS ORDERED: CEFTRIAXONE 1 GM in DEXTROSE 5%-WATER - 100 ML IVPB ONE (15:23)
[2018-05-01 15:43] LABS: ACANTHOCYTES 1+; ANISOCYTOSIS 1+; MACROCYTOSIS 0; OVALOCYTE 1+; PLATELET ESTIMATE DECREASED; TEAR DROP CELLS 1+
[2018-05-01] MEDS ORDERED: OCTREOTIDE ACETATE 100 MCG/1 ML ONE (16:00)
[2018-05-01] MEDS: OCTREOTIDE ACETATE 1,200 MCG in DEXTROSE 5%-WATER - 488 ML IVPB SCH ×2 (16:02→16:42)
[2018-05-01] MEDS ORDERED: LACTATED RINGERS SOLUTION 1000 ML INFUS.BAG IV ONE ×2 (16:08→17:28)
[2018-05-01] MEDS ORDERED: CEFTRIAXONE 1 GM/50 ML BAG ONE (16:12)
[2018-05-01] MEDS ORDERED: ONDANSETRON 4 MG/2 ML VIAL ONE ×2 (16:12→19:19)
[2018-05-01] MEDS ORDERED: PROMETHAZINE HCL 25 MG/1 ML VIAL IVPUSH PRN (16:30)
[2018-05-01] MEDS ORDERED: morphine SULFATE 4 MG/ML VIAL IVPUSH PRN (16:35)
[2018-05-01] MEDS ORDERED: LACTATED RINGERS SOLUTION 1,000 ML/1,000 ML INFUS.BAG IV SCH (16:45)
[2018-05-01] MEDS ORDERED: FOLIC ACID INJECTION - 1 MG, THIAMINE HCL 100 MG, MULTIVIT INJECTION ADULT 10 ML in SOD... IVPB ONE (17:00)
--- NOTE | 2018-05-01 17:28 | CONSULT ---
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 Some history obtained from old records and from ED notes and from pt. 53yo m with PMH of GI bleed, EtOH abuse, seizures, HTN, anemia, varicies, presenting to ED with complaints of hematemesis that started earlier today. Pt said he drank 1pt of Vodka this morning and had around 5-6 episodes of hematemisis this morning. He admits to diffuse abdominal pain, headache, back pain, weakness. He denies changes in vision, cp, sob, urinary symptoms, bloody stools. He does not follow up with a primary care doctor. In the ED: pt was hypotensive EKG: sinus tachycardia. no ST changes s/p 3 L NS and 1 u prbc in ED bp improved to 116 systolic and HR 130s. GI consulted Allergies: nkda Social: alcohol use. Denies cigarette, cocaine, marijuana use Meds: none PSH: none REVIEW OF SYSTEMS: as per HPI PHYSICAL EXAMINATION Vital Signs - 24 hr 05/01/18 05/01/18 05/01/18 13:34 14:59 16:18 Temperature 99.1 F Pulse Rate 170 H Pulse Rate [ 148 H 128 H Apical] Respiratory 26 H 17 30 H Rate Blood Pressure 83/51 L Blood Pressure 96/84 121/82 [Right Arm] O2 Sat by Pulse 92 L 100 100 Oximetry (%) GENERAL: AOX3 mild distress HEAD: NCAT EYES: PEERL sluggish, extraocular movements intact, sclera anicteric, conjunctiva clear. No lid lag. EARS, NOSE, THROAT: Ears normal, nares patent, oropharynx w/ dry blood. MMM NECK: Normal range of motion, supple without lymphadenopathy, JVD, or masses. LUNGS: CTAB HEART:tachy RR, normal S1 and S2 without murmur, rub or gallop. ABDOMEN: Soft, ND TTP diffuse , normoactive bowel sounds MUSCULOSKELETAL: Normal range of motion at all joints. No bony deformities or tenderness. UPPER EXTREMITIES: 2+ pulses, warm, well-perfused. No cyanosis. No clubbing. Cap refill <2 seconds. No peripheral edema. LOWER EXTREMITIES: 2+ pulses, warm, well-perfused. No calf tenderness. No peripheral edema. NEUROLOGICAL: Cranial nerves II-XII intact. Normal speech. PSYCHIATRIC: Cooperative. Good eye contact. Appropriate mood and affect. SKIN: Warm, dry, normal turgor, no rashes or lesions noted. Laboratory Results - last 24 hr 05/01/18 05/01/18 05/01/18 13:53 13:53 13:53 WBC 14.8 H RBC 5.21 Hgb 14.1 Hct 42.0 MCV 80.5 MCH 27.1 MCHC 33.7 RDW 18.1 H Plt Count 89 L MPV 9.9 Absolute Neuts (auto) 13.7 H Neutrophils % 92.9 H D Neutrophils % (Manual) 68.4 D Band Neutrophils % 24.5 Lymphocytes % 2.8 L D Lymphocytes % (Manual) 2.1 L D Monocytes % 4.2 D Monocytes % (Manual) 2 L D Eosinophils % 0.0 D Eosinophils % (Manual) 0.0 D Basophils % 0.1 Basophils % (Manual) 0.0 Myelocytes % (Man) 0 D Promyelocytes % (Man) 0 Blast Cells % (Manual) 0 Nucleated RBC % 0 Metamyelocytes 1 D Hypochromia 0 Platelet Estimate Decreased Platelet Comment Present Polychromasia 1+ Poikilocytosis 1+ Anisocytosis 1+ Microcytosis 1+ Macrocytosis 0 Spherocytes 1+ Tear Drop Cells 1+ Ovalocytes 1+ Acanthocytes (Spur) 1+ PT with INR 16.70 H INR 1.41 H PTT (Actin FS) Sodium 131 L Potassium 2.9 L* Chloride 86 L Carbon Dioxide 18 L Anion Gap 27 H BUN 27 H Creatinine 1.7 H Creat Clearance w eGFR 42.21 Random Glucose 91 Lactic Acid Calcium 7.3 L Total Bilirubin 1.4 H AST 57 H ALT 42 Alkaline Phosphatase 68 Total Protein 7.8 Albumin 3.6 Lipase 181 Blood Type Antibody Screen Crossmatch 05/01/18 05/01/18 05/01/18 13:53 13:53 13:53 WBC RBC Hgb Hct MCV MCH MCHC RDW Plt Count MPV Absolute Neuts (auto) Neutrophils % Neutrophils % (Manual) Band Neutrophils % Lymphocytes % Lymphocytes % (Manual) Monocytes % Monocytes % (Manual) Eosinophils % Eosinophils % (Manual) Basophils % Basophils % (Manual) Myelocytes % (Man) Promyelocytes % (Man) Blast Cells % (Manual) Nucleated RBC % Metamyelocytes Hypochromia Platelet Estimate Platelet Comment Polychromasia Poikilocytosis Anisocytosis Microcytosis Macrocytosis Spherocytes Tear Drop Cells Ovalocytes Acanthocytes (Spur) PT with INR INR PTT (Actin FS) 29.5 Sodium Potassium Chloride Carbon Dioxide Anion Gap BUN Creatinine Creat Clearance w eGFR Random Glucose Lactic Acid Calcium Total Bilirubin AST ALT Alkaline Phosphatase Total Protein Albumin Lipase Cancelled Blood Type Cancelled Antibody Screen Cancelled Crossmatch See Detail 05/01/18 14:20 WBC RBC Hgb Hct MCV MCH MCHC RDW Plt Count MPV Absolute Neuts (auto) Neutrophils % Neutrophils % (Manual) Band Neutrophils % Lymphocytes % Lymphocytes % (Manual) Monocytes % Monocytes % (Manual) Eosinophils % Eosinophils % (Manual) Basophils % Basophils % (Manual) Myelocytes % (Man) Promyelocytes % (Man) Blast Cells % (Manual) Nucleated RBC % Metamyelocytes Hypochromia Platelet Estimate Platelet Comment Polychromasia Poikilocytosis Anisocytosis Microcytosis Macrocytosis Spherocytes Tear Drop Cells Ovalocytes Acanthocytes (Spur) PT with INR INR PTT (Actin FS) Sodium Potassium Chloride Carbon Dioxide Anion Gap BUN Creatinine Creat Clearance w eGFR Random Glucose Lactic Acid 9.2 H* Calcium Total Bilirubin AST ALT Alkaline Phosphatase Total Protein Albumin Lipase Blood Type Antibody Screen Crossmatch Active Medications Generic Name Dose Route Start Last Admin Trade Name Georgeq PRN Reason Stop Dose Admin Acetaminophen 1,000 mg 05/01/18 16:29 Ofirmev Injection - IVPB Q6H PRN PAIN LEVEL 6-10 Chlorhexidine Gluconate 1 applic 05/01/18 22:00 Hibiclens For Decolonization - TP HS ALPA Octreotide Acetate 1,200 mcg/ 500 mls @ 20.83 mls/hr 05/01/18 15:00 05/01/18 16:42 Dextrose IVPB 20.83 mls/hr ASDIR ALPA Administration 50 MCG/HR Folic Acid 1 mg/ Thiamine HCl 1,000 mls @ 125 mls/hr 05/01/18 17:00 100 mg/ Multivitamins/Minerals IVPB 05/02/18 00:59 10 ml/ Sodium Chloride ONCE ONE Pantoprazole Sodium 80 mg/ 100 mls @ 10 mls/hr 05/01/18 16:45 Sodium Chloride IVPB Q10H ALPA 8 MG/HR Lactated Ringer's 1,000 ml in 1,000 mls @ 125 mls/hr 05/01/18 16:45 Lactated Ringers Solution IV ASDIR ALPA Morphine Sulfate 4 mg 05/01/18 16:35 Morphine Sulfate IVPUSH Q6H PRN PAIN LEVEL 7 - 10 Mupirocin 1 applic 05/01/18 22:00 Bactroban Ointment (For Decolonization) - NS 05/06/18 21:59 BID ALPA Promethazine HCl 12.5 mg 05/01/18 16:30 Phenergan Injection - IVPUSH Q6H PRN NAUSEA AND/OR VOMITING ASSESSMENT/PLAN: 53yo m with PMH of GI bleed, EtOH abuse, seizures, HTN, anemia, varicies, presenting to ICU w/ acute GIB bleed, likely upper and etoh abuse. NEURO intact AOX3 monitor for etoh withdrawal last drink 1pt of Vodka this morning Utox banana bag benzo prn and can start librium if withdrawal sxs Cardiac/PULM/GI maintain MAP > 65 O2 as needed cardiac monitoring monitor H/H - 14. s/p 1 u prbc. transfuse if <7 or significant drop in Hgb c/w active GIB s/p 3 L NS and 1 u prbc in ED 1 L LR bolus LR 125cc banana bag NPO pain ctl - IV morphine/tylenol phenergen - nausea EKG: sinus tachycardia. no ST changes, Qtc 512 rpt EKG, monitor Qtc cxr - no acute pathology FOBT protonix gtt octreotide - hx varices?, may be source of bleed GI consult elevated lactic - trend lactic acid ID elevated WBC. no fevers s/p CTX/zosyn in ED f/u UA RENAL Anion Gap acidosis - likely 2/2 lactic acid low chloride - 2/2 vomit HU- likely pre renal monitor Cr, UOP hypokalemia - replete K s/p 3 L NS in ED 1 L LR bolus LR 125cc FEN LR 125 cc replete prn NPO ppx SCD protonix gtt Dispo: ICU monitoring We will continue to follow the patient. Thank you for this consultative opportunity. Visit type - Emergency Visit Emergency Visit: Yes Care time: The patient presented to the Emergency Department on the above date and was hospitalized for further evaluation of their emergent condition. - New Patient This patient is new to me today: Yes Date on this admission: 05/01/18 - Critical Care Critical Care patient: Yes Total Critical Care Time (in minutes): 40 Critical Care Statement: The care of this patient involved high complexity decision making to prevent further life threatening deterioration of the patient 's condition and/or to evaluate & treat vital organ system(s) failure or risk of failure.
[2018-05-01] MEDS ORDERED: PIPERACILLIN/TAZOB 3.375 GM 3.375 GM/50 ML BAG IVPB ONE (17:52)
[2018-05-01 17:59] LABS: BASO % 0.2 % (0-2.0); HEMATOCRIT 40.5 % (35.4-49); HEMOGLOBIN 13.8 GM/dL (11.7-16.9); LYMPH % 7.5 % (8-40); MCH 27.7 pg (25.7-33.7); MCHC 34.1 g/dl (32.0-35.9); MEAN CELL VOLUME 81.3 fl (80-96); MEAN PLT VOLUME 9.7 fl (7.5-11.1); MONO % 4.1 % (3.8-10.2); NEUT % 88.2 % (42.8-82.8); PLATELET COUNT 66 K/MM3 (134-434); RBC 4.97 M/mm3 (4.00-5.60); RDW 18.2 % (11.9-15.9); WHITE BLOOD COUNT 6.6 K/mm3 (4.0-10.0)
--- NOTE | 2018-05-01 18:06 | HP ---
Admitting History and Physical - Primary Care Physician PCP: Verona Lagunas - Admission History of Present Illness: 53yo m with PMH of GI bleed, EtOH abuse, seizures, HTN, anemia, varicies, presenting to ED with complaints of hematemesis that started earlier today. Pt said he drank 1pt of Vodka this morning and had around 5-6 episodes of hematemisis this morning. He admits to diffuse abdominal pain, headache, back pain, weakness. He denies changes in vision, cp, sob, urinary symptoms, bloody stools. He does not follow up with a primary care doctor. - Past Medical History QA AUDITOR: Yes: Seizure Cardiovascular: Yes: HTN Gastrointestinal: Yes: GI Bleed (upper GI bleed confirmed by EGD, shown to have erosive esophagitis) Heme/Onc: Yes: Thrombocytopenia Infectious Disease: Yes: Other (h/o TB treated 2008 per [facility] notes) Psych: Yes: Addictions (alcohol abuse) - Smoking History Smoking history: Never smoked Have you smoked in the past 12 months: No Aproximately how many cigarettes per day: 20 - Alcohol/Substance Use Hx Alcohol Use: Yes Home Medications - Allergies Allergies/Adverse Reactions: Allergies Allergy/AdvReac Type Severity Reaction Status Date / Time No Known Allergies Allergy Verified 05/01/18 13:35 Physical Examination Vital Signs: Vital Signs Temperature 99.1 F 05/01/18 13:34 Pulse Rate 128 H 05/01/18 16:18 Respiratory Rate 30 H 05/01/18 16:18 Blood Pressure 121/82 05/01/18 16:18 O2 Sat by Pulse Oximetry (%) 100 05/01/18 16:18 Constitutional: Yes: No Distress HENT: Yes: Atraumatic Neck: Yes: Supple Cardiovascular: Yes: Regular Rate and Rhythm Respiratory: Yes: Rhonchi Gastrointestinal: Yes: Normal Bowel Sounds Extremities: Yes: WNL Edema: No Peripheral Pulses WNL: Yes Neurological: Yes: Alert, Oriented Labs: CBC, BMP 05/01/18 17:50 Imaging - Results Chest X-ray: Report Reviewed Problem List - Problems (1) Hematemesis Assessment/Plan: few vomitting with blood monitor Code(s): K92.0 - HEMATEMESIS Qualifiers: Nausea presence: unspecified Qualified Code(s): K92.0 - Hematemesis (2) GI bleed Code(s): K92.2 - GASTROINTESTINAL HEMORRHAGE, UNSPECIFIED Qualifiers: GI bleed type/associated pathology: gastrointestinal hemorrhage with hematemesis Qualified Code(s): K92.0 - Hematemesis (3) Alcohol use disorder Assessment/Plan: MONITOR FOR WITHDRAWL Code(s): RYA0252 - (4) Sepsis Assessment/Plan: cxs sent Code(s): A41.9 - SEPSIS, UNSPECIFIED ORGANISM Assessment/Plan Laboratory Tests 05/01/18 05/01/18 05/01/18 13:53 13:53 13:53 WBC 14.8 H RBC 5.21 Hgb 14.1 Hct 42.0 MCV 80.5 MCH 27.1 MCHC 33.7 RDW 18.1 H Plt Count 89 L MPV 9.9 Absolute Neuts (auto) 13.7 H Neutrophils % 92.9 H D Neutrophils % (Manual) 68.4 D Band Neutrophils % 24.5 Lymphocytes % 2.8 L D Lymphocytes % (Manual) 2.1 L D Monocytes % 4.2 D Monocytes % (Manual) 2 L D Eosinophils % 0.0 D Eosinophils % (Manual) 0.0 D Basophils % 0.1 Basophils % (Manual) 0.0 Myelocytes % (Man) 0 D Promyelocytes % (Man) 0 Blast Cells % (Manual) 0 Nucleated RBC % 0 Metamyelocytes 1 D Hypochromia 0 Platelet Estimate Decreased Platelet Comment Present Polychromasia 1+ Poikilocytosis 1+ Anisocytosis 1+ Microcytosis 1+ Macrocytosis 0 Spherocytes 1+ Tear Drop Cells 1+ Ovalocytes 1+ Acanthocytes (Spur) 1+ PT with INR 16.70 H INR 1.41 H PTT (Actin FS) Sodium 131 L Potassium 2.9 L* Chloride 86 L Carbon Dioxide 18 L Anion Gap 27 H BUN 27 H Creatinine 1.7 H Creat Clearance w eGFR 42.21 Random Glucose 91 Lactic Acid Calcium 7.3 L Total Bilirubin 1.4 H AST 57 H ALT 42 Alkaline Phosphatase 68 Total Protein 7.8 Albumin 3.6 Lipase 181 Blood Type Antibody Screen Crossmatch 05/01/18 05/01/18 05/01/18 13:53 13:53 13:53 WBC RBC Hgb Hct MCV MCH MCHC RDW Plt Count MPV Absolute Neuts (auto) Neutrophils % Neutrophils % (Manual) Band Neutrophils % Lymphocytes % Lymphocytes % (Manual) Monocytes % Monocytes % (Manual) Eosinophils % Eosinophils % (Manual) Basophils % Basophils % (Manual) Myelocytes % (Man) Promyelocytes % (Man) Blast Cells % (Manual) Nucleated RBC % Metamyelocytes Hypochromia Platelet Estimate Platelet Comment Polychromasia Poikilocytosis Anisocytosis Microcytosis Macrocytosis Spherocytes Tear Drop Cells Ovalocytes Acanthocytes (Spur) PT with INR INR PTT (Actin FS) 29.5 Sodium Potassium Chloride Carbon Dioxide Anion Gap BUN Creatinine Creat Clearance w eGFR Random Glucose Lactic Acid Calcium Total Bilirubin AST ALT Alkaline Phosphatase Total Protein Albumin Lipase Cancelled Blood Type Cancelled Antibody Screen Cancelled Crossmatch See Detail 05/01/18 05/01/18 05/01/18 14:20 16:45 17:50 WBC 6.6 RBC 4.97 Hgb 13.8 Hct 40.5 MCV 81.3 MCH 27.7 MCHC 34.1 RDW 18.2 H Plt Count 66 L D MPV 9.7 Absolute Neuts (auto) 5.8 Neutrophils % 88.2 H Neutrophils % (Manual) Band Neutrophils % Lymphocytes % 7.5 L D Lymphocytes % (Manual) Monocytes % 4.1 Monocytes % (Manual) Eosinophils % 0.0 Eosinophils % (Manual) Basophils % 0.2 Basophils % (Manual) Myelocytes % (Man) Promyelocytes % (Man) Blast Cells % (Manual) Nucleated RBC % 0 Metamyelocytes Hypochromia Platelet Estimate Platelet Comment Polychromasia Poikilocytosis Anisocytosis Microcytosis Macrocytosis Spherocytes Tear Drop Cells Ovalocytes Acanthocytes (Spur) PT with INR INR PTT (Actin FS) Sodium Potassium Chloride Carbon Dioxide Anion Gap BUN Creatinine Creat Clearance w eGFR Random Glucose Lactic Acid 9.2 H* Calcium Total Bilirubin AST ALT Alkaline Phosphatase Total Protein Albumin Lipase Blood Type A POSITIVE Antibody Screen Negative Crossmatch Active Medications Generic Name Dose Route Start Last Admin Trade Name Freq PRN Reason Stop Dose Admin Acetaminophen 1,000 mg 05/01/18 16:29 Ofirmev Injection - IVPB Q6H PRN PAIN LEVEL 6-10 Chlorhexidine Gluconate 1 applic 05/01/18 22:00 Hibiclens For Decolonization - TP HS ALPA Octreotide Acetate 1,200 mcg/ 500 mls @ 20.83 mls/hr 05/01/18 15:00 05/01/18 16:42 Dextrose IVPB 20.83 mls/hr ASDIR ALPA Administration 50 MCG/HR Folic Acid 1 mg/ Thiamine HCl 1,000 mls @ 125 mls/hr 05/01/18 17:00 100 mg/ Multivitamins/Minerals IVPB 05/02/18 00:59 10 ml/ Sodium Chloride ONCE ONE Pantoprazole Sodium 80 mg/ 100 mls @ 10 mls/hr 05/01/18 17:00 Sodium Chloride IVPB Q10H ALPA 8 MG/HR Lactated Ringer's 1,000 ml in 1,000 mls @ 125 mls/hr 05/01/18 16:45 Lactated Ringers Solution IV ASDIR ALPA Potassium Chloride 10 meq in 100 mls @ 100 mls/hr 05/01/18 17:15 Potassium Chloride 10 Meq Premix Ivpb - IVPB 05/01/18 20:14 Q60M ALPA Morphine Sulfate 4 mg 05/01/18 16:35 Morphine Sulfate IVPUSH Q6H PRN PAIN LEVEL 7 - 10 Mupirocin 1 applic 05/01/18 22:00 Bactroban Ointment (For Decolonization) - NS 05/06/18 21:59 BID ALPA Promethazine HCl 12.5 mg 05/01/18 16:30 Phenergan Injection - IVPUSH Q6H PRN NAUSEA AND/OR VOMITING cc time 60 min
[2018-05-01 18:18] LABS: MAGNESIUM 0.9 mg/dL (1.8-2.4); PHOSPHOROUS 4.5 mg/dL (2.5-4.9)
[2018-05-01 18:23] LABS: ALBUMIN 2.9 g/dl (3.4-5.0); ALK PHOS 53 U/L (45-117); ANION GAP 26 MMOL/L (8-16); BLOOD UREA NITROGEN 29 mg/dL (7-18); CHLORIDE 95 mmol/L (98-107); CO2 14 mmol/L (21-32); CREATININE 1.4 mg/dL (0.55-1.3); GLUCOSE,RANDOM 102 mg/dL (74-106); POTASSIUM 3.5 mmol/L (3.5-5.1); SGOT/AST 58 U/L (15-37); SGPT/ALT 37 U/L (13-61); SODIUM 134 mmol/L (136-145); TOT PROT 6.4 g/dl (6.4-8.2)
[2018-05-01 18:25] LABS: CALCIUM 6.5 mg/dL (8.5-10.1)
[2018-05-01] MEDS ORDERED: ERYTHROMYCIN *INJECTION* 500 MG VIAL IVPB ONE (18:35)
[2018-05-01] MEDS ORDERED: ALBUMIN HUMAN 25% 12.5 GM/50 ML VIAL IVPB SCH (18:45)
[2018-05-01] MEDS ORDERED: PANTOPRAZOLE SODIUM 80 MG in SODIUM CHLORIDE 100 ML IVPB SCH (18:45)
--- NOTE | 2018-05-01 18:45 | CON.GI ---
Consult Consult Specialty:: GI - History of Present Illness History of Present Illness: 53 y/o male with PMH of sever esophagitis s/p EGD in 2016( Noah), Kacie 2016 and 06/2017 --eophagitis was asked to be seen because of 2 day history of hematemesis associated with hypotension. He received 1 unit of blood and D5 Lr which has increased his blood pressure. He continued to be tachycardic despite IV hydration . His blood pressure is was 100/60. 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 Cardio/Vascular: Yes: HTN Gastrointestinal: Yes: GI Bleed (upper GI bleed confirmed by EGD, shown to have erosive esophagitis) Infectious Disease: Yes: Other (h/o TB treated 2008 per [facility] notes) Psych: Yes: Addictions (alcohol abuse) - Alcohol/Substance Use Hx Alcohol Use: Yes - Smoking History Smoking history: Never smoked Have you smoked in the past 12 months: No Aproximately how many cigarettes per day: 20 Home Medications - Allergies Allergies/Adverse Reactions: Allergies Allergy/AdvReac Type Severity Reaction Status Date / Time No Known Allergies Allergy Verified 05/01/18 13:35 Review of Systems - Review of Systems Eyes: denies: No Symptoms, Blind Spots, Blurred Vision, Double Vision, Eye Pain , Floaters, Photophobia, Recent Change in Vision, Other HENT: denies: No Symptoms, Difficult Swallowing, Ear Discharge, Ear Pain, Epistaxis, Gingival Bleeding, Hearing Loss, Mouth Swelling, Nasal Congestion, Ocular Prosthesis, Throat Pain, Toothache, Ringing in Ears, Other Cardiovascular: denies: No Symptoms, Chest Pain, Edema, Palpitations, Shortness of Breath, Other Respiratory: denies: No Symptoms, Cough, Exercise Intolerance, Hemoptysis, Orthopnea, PND, Snoring, SOB, SOB on Exertion, Wheezing, Other Gastrointestinal: reports: Nausea, Vomiting Blood. denies: Abdominal Pain, Dysphagia, Melena, Rectal Bleeding Physical Exam-GI Vital Signs: Vital Signs Temperature 99.1 F 05/01/18 13:34 Pulse Rate 147 H 05/01/18 18:19 Respiratory Rate 30 H 05/01/18 16:18 Blood Pressure 103/75 05/01/18 18:19 O2 Sat by Pulse Oximetry (%) 100 05/01/18 16:18 Constitutional: Yes: Obese, Other (poor hygeine) Eyes: Yes: Conjunctiva Clear HENT: Yes: Atraumatic Neck: Yes: Supple Cardiovascular: Yes: Regular Rate and Rhythm Respiratory: Yes: CTA Bilaterally Gastrointestinal Inspection: Yes: Distention ...Auscultate: Yes: Normoactive Bowel Sounds ...Palpate: Yes: Soft. No: Guarding, Hepatomegaly, Mass, Splenomegaly, Tenderness, Tenderness, Epigastium Labs: CBC, BMP 05/01/18 17:50 05/01/18 17:50 INR, PTT INR 1.41 (0.83-1.09) H 05/01/18 13:53 Problem List - Problems (1) Hematemesis Assessment/Plan: r/o M-W tear R> IV hydration trend CBC, repeat tonight IV Protonix drip EGD in am Code(s): K92.0 - HEMATEMESIS
[2018-05-01] MEDS: PANTOPRAZOLE SODIUM 80 MG in SODIUM CHLORIDE 100 ML IVPB SCH (19:03)
[2018-05-01] MEDS: ONDANSETRON 4 MG/2 ML VIAL IVPB SCH ×2 (19:17→22:00)
[2018-05-01] MEDS: METOCLOPRAMIDE HCL INJECTION 10 MG/2 ML VIAL IVPB SCH (19:18)
[2018-05-01] MEDS: KCL 10 MEQ IVPB 10 MEQ/100 ML INFUS.BAG IVPB SCH ×2 (19:18→21:08)
[2018-05-01] MEDS ORDERED: METOCLOPRAMIDE HCL INJECTION 10 MG/2 ML VIAL ONE (19:19)
[2018-05-01] MEDS ORDERED: KCL 10 MEQ IVPB 30 MEQ/300 ML INFUS.BAG IVPB ONE (19:19)
[2018-05-01] MEDS ORDERED: ADENOSINE 6 MG/2 ML VIAL IVPUSH ONE ×2 (19:55→20:01)
[2018-05-01] MEDS ORDERED: METOPROLOL TARTRATE 5 MG/5 ML VIAL ONE (20:08)
[2018-05-01] MEDS ORDERED: ACETAMINOPHEN INJECTION 100 ML IVPB ONE (20:10)
[2018-05-01] MEDS ORDERED: MAGNESIUM SULF 50% (8.12 MEQ/2 ML-1 GM VIAL) IVPB ONE (20:14)
[2018-05-01] MEDS ORDERED: MAGNESIUM SULF 50% (8.12 MEQ/2 ML-1 GM VIAL) ONE (20:15)
[2018-05-01] MEDS: ACETAMINOPHEN 1000 MG/100 ML VIAL (NON FORMULARY) IVPB PRN (20:24)
[2018-05-01] MEDS ORDERED: VANCOMYCIN 1 GRAM (PRE-DOCKED) 1,000 MG/250 ML BAG IVPB ONE ×2 (21:00→21:19)
[2018-05-01 21:15] LABS: URINE APPEARANCE CLOUDY; URINE BILIRUBIN NEGATIVE (<2.0 mg/dL); URINE COLOR DKYELLOW; URINE GLUCOSE (UA) NEGATIVE (NEGATIVE); URINE KETONE 1+ (NEGATIVE); URINE LEUK ESTERASE TRACE (NEGATIVE); URINE NITRITE NEGATIVE (NEGATIVE); URINE PROTEIN 1+ (NEGATIVE); URINE UROBILINOGEN NEGATIVE mg/dL (0.2-1.0)
[2018-05-01 21:18] LABS: EPI CELLS RARE /HPF (FEW); URINE BACTERIA RARE /hpf (NONE SEEN); URINE HYALINE CAST 12 /lpf; URINE MUCUS RARE
[2018-05-01] MEDS ORDERED: SODIUM CHLORIDE 0.9%/KCL 20 MEQ/1,000 ML INFUS.BAG IV SCH (21:30)
[2018-05-01 21:41] LABS: COCAINE, UR NEGATIVE ng/ml (CUTOFF=300); METHADONE, UR NEGATIVE ng/ml (CUTOFF=300); OPIATES, URI NEGATIVE ng/ml (CUTOFF=300); PHENCYCLIDINE,URINE NEGATIVE ng/ml (CUTOFF=25); URINE AMPHETAMINES NEGATIVE ng/ml (CUTOFF=500); URINE BARBITURATES NEGATIVE ng/ml (CUTOFF=200); URINE BENZODIAZEPINES NEGATIVE ng/ml (CUTOFF=200)
[2018-05-01] MEDS ORDERED: NOREPINEPHRINE BITARTRATE 4 MG/4 ML ML IV ONE (22:40)
--- NOTE | 2018-05-01 22:57 | PROC ---
Central Line Insertion Indication: CVP Monitoring, Sepsis, Vasopressor Risks and Benefits Explained: Yes Consent on Chart: Yes Central Line: Triple Lumen Catheter Anesthesia: 1% Lidocaine Sterile Technique: Yes Ultrasound Guided Assistance: Yes Position: Right Internal Jugular Post Insertion: Yes: Bilateral Breath Sounds, Bilateral Chest Expansion, Chest X-Ray Ordered Sterile Dressing Applied: Yes Remarks: no complications successful on first attempt
[2018-05-01] MEDS: NOREPINEPHRINE BITARTRATE 8,000 MCG in DEXTROSE 5%-WATER - 492 ML IV SCH (23:30)
[2018-05-01] MEDS: MUPIROCIN 2% TOPICAL OINTMENT FOR DECOLONIZATION NS SCH (23:40)
[2018-05-01] MEDS: CHLORHEXIDINE GLUCONATE 4% CLEANSER FOR DECOLONIZATION TP SCH (23:40)
[2018-05-02 00:19] LABS: HEMATOCRIT 36.5 % (35.4-49); HEMOGLOBIN 12.4 GM/dL (11.7-16.9); MCH 27.9 pg (25.7-33.7); MCHC 33.9 g/dl (32.0-35.9); MEAN CELL VOLUME 82.4 fl (80-96); RBC 4.43 M/mm3 (4.00-5.60); RDW 17.8 % (11.9-15.9)
[2018-05-02] MEDS ORDERED: DEXTROSE 5%-WATER - 50 ML IVPB ONE ×5 (00:21→22:51)
[2018-05-02] MEDS ORDERED: PIPERACILLIN/TAZOBACTAM 3.375 GM VIAL IVPB ONE ×5 (00:21→22:51)
[2018-05-02 00:26] LABS: WHITE BLOOD COUNT 1.6 K/mm3 (4.0-10.0)
[2018-05-02 00:27] LABS: PLATELET COUNT 39 K/MM3 (134-434)
[2018-05-02] MEDS ORDERED: CALCIUM GLUCONATE 10% - 1,000 MG/10 ML VIAL IVPB ONE ×3 (00:38→17:15)
[2018-05-02 00:39] LABS: ANION GAP 23 MMOL/L (8-16); BLOOD UREA NITROGEN 28 mg/dL (7-18); CHLORIDE 101 mmol/L (98-107); CO2 15 mmol/L (21-32); CREATININE 1.1 mg/dL (0.55-1.3); GLUCOSE,RANDOM 65 mg/dL (74-106); MAGNESIUM 1.3 mg/dL (1.8-2.4); PHOSPHOROUS 3.1 mg/dL (2.5-4.9); SODIUM 139 mmol/L (136-145)
[2018-05-02 00:42] LABS: CALCIUM 6.1 mg/dL (8.5-10.1); POTASSIUM 2.8 mmol/L (3.5-5.1)
[2018-05-02] MEDS: PIPERACILLIN/TAZOB 3.375 GM 3.375 GM in DEXTROSE 5%-WATER - 50 ML IVPB SCH ×5 (00:42→23:35)
[2018-05-02] MEDS ORDERED: MAGNESIUM SULF 50% (8.12 MEQ/2 ML-1 GM VIAL) IVPB ONE ×3 (00:44→17:15)
[2018-05-02] MEDS ORDERED: LACTATED RINGERS SOLUTION 1000 ML INFUS.BAG IV ONE (00:44)
[2018-05-02] MEDS ORDERED: LACTATED RINGERS SOLUTION 1,000 ML/1,000 ML INFUS.BAG IV SCH (00:45)
[2018-05-02] MEDS: METOCLOPRAMIDE HCL INJECTION 10 MG/2 ML VIAL IVPB SCH ×3 (01:43→17:29)
[2018-05-02] MEDS: ONDANSETRON 4 MG/2 ML VIAL IVPB SCH ×2 (01:44→06:56)
[2018-05-02] MEDS: POTASSIUM CHLORIDE 20 MEQ PREMIX IVPB 100 ML IVPB SCH ×3 (02:00→04:32)
[2018-05-02] MEDS: ACETAMINOPHEN 1000 MG/100 ML VIAL (NON FORMULARY) IVPB PRN ×2 (02:02→07:50)
[2018-05-02] MEDS: PANTOPRAZOLE SODIUM 80 MG in SODIUM CHLORIDE 100 ML IVPB SCH ×3 (04:12→23:36)
[2018-05-02 06:16] LABS: EOS % 0.1 % (0-4.5); HEMATOCRIT 38.6 % (35.4-49); HEMOGLOBIN 12.2 GM/dL (11.7-16.9); LYMPH % 5.8 % (8-40); MCH 26.3 pg (25.7-33.7); MCHC 31.6 g/dl (32.0-35.9); MEAN CELL VOLUME 83.1 fl (80-96); MEAN PLT VOLUME 10.9 fl (7.5-11.1); NEUT % 86.1 % (42.8-82.8); RBC 4.65 M/mm3 (4.00-5.60); RDW 18.2 % (11.9-15.9); WHITE BLOOD COUNT 2.4 K/mm3 (4.0-10.0)
[2018-05-02 06:30] LABS: INR 1.53 (0.83-1.09); PROTHROMBIN TIME (PATIENT) 18.1 SEC (9.7-13.0)
[2018-05-02 06:32] LABS: ACTIVATED PTT 36.6 SECONDS (25.2-36.5)
[2018-05-02 06:38] LABS: PLATELET COUNT 27 K/MM3 (134-434)
[2018-05-02] MEDS: LORazepam 2 MG/ML SDV VIAL IVPUSH PRN ×2 (06:56→13:06)
[2018-05-02 07:51] LABS: ALBUMIN 2.4 g/dl (3.4-5.0); ALK PHOS 43 U/L (45-117); ANION GAP 18 MMOL/L (8-16); BILIRUBIN,TOTAL 1.3 mg/dL (0.2-1); BLOOD UREA NITROGEN 22 mg/dL (7-18); CHLORIDE 97 mmol/L (98-107); CO2 19 mmol/L (21-32); CREATININE 0.9 mg/dL (0.55-1.3); GLUCOSE,RANDOM 130 mg/dL (74-106); MAGNESIUM 1.1 mg/dL (1.8-2.4); PHOSPHOROUS 2.8 mg/dL (2.5-4.9); POTASSIUM 3.2 mmol/L (3.5-5.1); SGOT/AST 106 U/L (15-37); SGPT/ALT 45 U/L (13-61); SODIUM 135 mmol/L (136-145); TOT PROT 5.3 g/dl (6.4-8.2)
--- NOTE | 2018-05-02 07:59 | PN ---
Physical Exam: SUBJECTIVE: Patient seen and examined in the ICU. overnight septic shock w/ fevers (Tmax 105) and R IJ placement. HR was in 170s/SVT and unresponsive to adenosine, responded to Lopressor and now in 130s. Currently on levophed and s/ p 7 L IVF. 1 episode of melena. patient more arousable and notes may have fallen prior to coming to hospital. EGD deferred because of Septic shock. denies sob, cp, urinary sxs. OBJECTIVE: Vital Signs Period Temp Pulse Resp BP Sys/Boykin Pulse Ox Last 24 Hr 99.1 F-105 F 128-177 17-45 80-134/51-87 88-100 GENERAL: AOX3 mild distress HEENT: NCAT, PEERL sluggish, extraocular movements intact, sclera anicteric, conjunctiva clear. No lid lag. MMM NECK: Normal range of motion, supple without lymphadenopathy, JVD, or masses. LUNGS: crackles b/l HEART:tachy RR, normal S1 and S2 without m/r/g ABDOMEN: Soft, ND TTP diffuse , normoactive bowel sounds MUSCULOSKELETAL: Normal range of motion at all joints. No bony deformities or tenderness. UPPER EXTREMITIES: 2+ pulses, warm, well-perfused. No cyanosis. No clubbing. Cap refill <2 seconds. No peripheral edema. LOWER EXTREMITIES: 2+ pulses, warm, well-perfused. No calf tenderness. No peripheral edema. NEUROLOGICAL: Cranial nerves II-XII intact. Normal speech. PSYCHIATRIC: Cooperative. Good eye contact. Appropriate mood and affect. SKIN: Warm, dry, normal turgor, no rashes or lesions noted. Laboratory Results - last 24 hr 05/01/18 05/01/18 05/01/18 13:53 13:53 13:53 WBC 14.8 H RBC 5.21 Hgb 14.1 Hct 42.0 MCV 80.5 MCH 27.1 MCHC 33.7 RDW 18.1 H Plt Count 89 L MPV 9.9 Absolute Neuts (auto) 13.7 H Neutrophils % 92.9 H D Neutrophils % (Manual) 68.4 D Band Neutrophils % 24.5 Lymphocytes % 2.8 L D Lymphocytes % (Manual) 2.1 L D Monocytes % 4.2 D Monocytes % (Manual) 2 L D Eosinophils % 0.0 D Eosinophils % (Manual) 0.0 D Basophils % 0.1 Basophils % (Manual) 0.0 Myelocytes % (Man) 0 D Promyelocytes % (Man) 0 Blast Cells % (Manual) 0 Nucleated RBC % 0 Metamyelocytes 1 D Hypochromia 0 Platelet Estimate Decreased Platelet Comment Present Polychromasia 1+ Poikilocytosis 1+ Anisocytosis 1+ Microcytosis 1+ Macrocytosis 0 Spherocytes 1+ Tear Drop Cells 1+ Ovalocytes 1+ Acanthocytes (Spur) 1+ PT with INR 16.70 H INR 1.41 H PTT (Actin FS) Sodium 131 L Potassium 2.9 L* Chloride 86 L Carbon Dioxide 18 L Anion Gap 27 H BUN 27 H Creatinine 1.7 H Creat Clearance w eGFR 42.21 Random Glucose 91 Lactic Acid Calcium 7.3 L Phosphorus Magnesium Total Bilirubin 1.4 H AST 57 H ALT 42 Alkaline Phosphatase 68 Total Protein 7.8 Albumin 3.6 Lipase 181 Urine Color Urine Appearance Urine pH Ur Specific [place] Urine Protein Urine Glucose (UA) Urine Ketones Urine Blood Urine Nitrite Urine Bilirubin Urine Urobilinogen Ur Leukocyte Esterase Urine WBC (Auto) Urine RBC (Auto) Ur Epithelial Cells Urine Bacteria Hyaline Casts Urine Mucus Random Vancomycin Opiates Screen Methadone Screen Barbiturate Screen Phencyclidine Screen Ur Amphetamines Screen MDMA (Ecstasy) Screen Benzodiazepines Screen Cocaine Screen U Marijuana (THC) Screen Alcohol, Quantitative Influenza A (Rapid) Influenza B (Rapid) Blood Type Antibody Screen Crossmatch 05/01/18 05/01/18 05/01/18 13:53 13:53 13:53 WBC RBC Hgb Hct MCV MCH MCHC RDW Plt Count MPV Absolute Neuts (auto) Neutrophils % Neutrophils % (Manual) Band Neutrophils % Lymphocytes % Lymphocytes % (Manual) Monocytes % Monocytes % (Manual) Eosinophils % Eosinophils % (Manual) Basophils % Basophils % (Manual) Myelocytes % (Man) Promyelocytes % (Man) Blast Cells % (Manual) Nucleated RBC % Metamyelocytes Hypochromia Platelet Estimate Platelet Comment Polychromasia Poikilocytosis Anisocytosis Microcytosis Macrocytosis Spherocytes Tear Drop Cells Ovalocytes Acanthocytes (Spur) PT with INR INR PTT (Actin FS) 29.5 Sodium Potassium Chloride Carbon Dioxide Anion Gap BUN Creatinine Creat Clearance w eGFR Random Glucose Lactic Acid Calcium Phosphorus Magnesium Total Bilirubin AST ALT Alkaline Phosphatase Total Protein Albumin Lipase Cancelled Urine Color Urine Appearance Urine pH Ur Specific [place] Urine Protein Urine Glucose (UA) Urine Ketones Urine Blood Urine Nitrite Urine Bilirubin Urine Urobilinogen Ur Leukocyte Esterase Urine WBC (Auto) Urine RBC (Auto) Ur Epithelial Cells Urine Bacteria Hyaline Casts Urine Mucus Random Vancomycin Opiates Screen Methadone Screen Barbiturate Screen Phencyclidine Screen Ur Amphetamines Screen MDMA (Ecstasy) Screen Benzodiazepines Screen Cocaine Screen U Marijuana (THC) Screen Alcohol, Quantitative Influenza A (Rapid) Influenza B (Rapid) Blood Type Cancelled Antibody Screen Cancelled Crossmatch See Detail 05/01/18 05/01/18 05/01/18 14:20 16:45 17:40 WBC RBC Hgb Hct MCV MCH MCHC RDW Plt Count MPV Absolute Neuts (auto) Neutrophils % Neutrophils % (Manual) Band Neutrophils % Lymphocytes % Lymphocytes % (Manual) Monocytes % Monocytes % (Manual) Eosinophils % Eosinophils % (Manual) Basophils % Basophils % (Manual) Myelocytes % (Man) Promyelocytes % (Man) Blast Cells % (Manual) Nucleated RBC % Metamyelocytes Hypochromia Platelet Estimate Platelet Comment Polychromasia Poikilocytosis Anisocytosis Microcytosis Macrocytosis Spherocytes Tear Drop Cells Ovalocytes Acanthocytes (Spur) PT with INR INR PTT (Actin FS) Sodium Potassium Chloride Carbon Dioxide Anion Gap BUN Creatinine Creat Clearance w eGFR Random Glucose Lactic Acid 9.2 H* 7.6 H* Calcium Phosphorus Magnesium Total Bilirubin AST ALT Alkaline Phosphatase Total Protein Albumin Lipase Urine Color Urine Appearance Urine pH Ur Specific [place] Urine Protein Urine Glucose (UA) Urine Ketones Urine Blood Urine Nitrite Urine Bilirubin Urine Urobilinogen Ur Leukocyte Esterase Urine WBC (Auto) Urine RBC (Auto) Ur Epithelial Cells Urine Bacteria Hyaline Casts Urine Mucus Random Vancomycin Opiates Screen Methadone Screen Barbiturate Screen Phencyclidine Screen Ur Amphetamines Screen MDMA (Ecstasy) Screen Benzodiazepines Screen Cocaine Screen U Marijuana (THC) Screen Alcohol, Quantitative Influenza A (Rapid) Influenza B (Rapid) Blood Type A POSITIVE Antibody Screen Negative Crossmatch See Detail 05/01/18 05/01/18 05/01/18 17:50 17:50 17:50 WBC 6.6 RBC 4.97 Hgb 13.8 Hct 40.5 MCV 81.3 MCH 27.7 MCHC 34.1 RDW 18.2 H Plt Count 66 L D MPV 9.7 Absolute Neuts (auto) 5.8 Neutrophils % 88.2 H Neutrophils % (Manual) Band Neutrophils % Lymphocytes % 7.5 L D Lymphocytes % (Manual) Monocytes % 4.1 Monocytes % (Manual) Eosinophils % 0.0 Eosinophils % (Manual) Basophils % 0.2 Basophils % (Manual) Myelocytes % (Man) Promyelocytes % (Man) Blast Cells % (Manual) Nucleated RBC % 0 Metamyelocytes Hypochromia Platelet Estimate Platelet Comment Polychromasia Poikilocytosis Anisocytosis Microcytosis Macrocytosis Spherocytes Tear Drop Cells Ovalocytes Acanthocytes (Spur) PT with INR INR PTT (Actin FS) Sodium 134 L Potassium 3.5 Chloride 95 L Carbon Dioxide 14 L Anion Gap 26 H BUN 29 H Creatinine 1.4 H Creat Clearance w eGFR 52.81 Random Glucose 102 Lactic Acid Calcium 6.5 L* Phosphorus 4.5 Magnesium 0.9 L Total Bilirubin 1.0 AST 58 H ALT 37 Alkaline Phosphatase 53 Total Protein 6.4 Albumin 2.9 L Lipase Urine Color Urine Appearance Urine pH Ur Specific [place] Urine Protein Urine Glucose (UA) Urine Ketones Urine Blood Urine Nitrite Urine Bilirubin Urine Urobilinogen Ur Leukocyte Esterase Urine WBC (Auto) Urine RBC (Auto) Ur Epithelial Cells Urine Bacteria Hyaline Casts Urine Mucus Random Vancomycin Opiates Screen Methadone Screen Barbiturate Screen Phencyclidine Screen Ur Amphetamines Screen MDMA (Ecstasy) Screen Benzodiazepines Screen Cocaine Screen U Marijuana (THC) Screen Alcohol, Quantitative 236.1 H Influenza A (Rapid) Influenza B (Rapid) Blood Type Antibody Screen Crossmatch 05/01/18 05/01/18 05/02/18 20:52 20:52 00:00 WBC 1.6 L* RBC 4.43 Hgb 12.4 Hct 36.5 MCV 82.4 MCH 27.9 MCHC 33.9 RDW 17.8 H Plt Count 39 L D MPV 11.0 D Absolute Neuts (auto) Neutrophils % Neutrophils % (Manual) Band Neutrophils % Lymphocytes % Lymphocytes % (Manual) Monocytes % Monocytes % (Manual) Eosinophils % Eosinophils % (Manual) Basophils % Basophils % (Manual) Myelocytes % (Man) Promyelocytes % (Man) Blast Cells % (Manual) Nucleated RBC % Metamyelocytes Hypochromia Platelet Estimate Platelet Comment Polychromasia Poikilocytosis Anisocytosis Microcytosis Macrocytosis Spherocytes Tear Drop Cells Ovalocytes Acanthocytes (Spur) PT with INR INR PTT (Actin FS) Sodium Potassium Chloride Carbon Dioxide Anion Gap BUN Creatinine Creat Clearance w eGFR Random Glucose Lactic Acid Calcium Phosphorus Magnesium Total Bilirubin AST ALT Alkaline Phosphatase Total Protein Albumin Lipase Urine Color Dkyellow Urine Appearance Cloudy Urine pH 5.0 Ur Specific [place] 1.020 Urine Protein 1+ H D Urine Glucose (UA) Negative Urine Ketones 1+ H Urine Blood 1+ H Urine Nitrite Negative Urine Bilirubin Negative Urine Urobilinogen Negative Ur Leukocyte Esterase Trace Urine WBC (Auto) 3 Urine RBC (Auto) 4 Ur Epithelial Cells Rare Urine Bacteria Rare Hyaline Casts 12 Urine Mucus Rare Random Vancomycin Opiates Screen Negative Methadone Screen Negative Barbiturate Screen Negative Phencyclidine Screen Negative Ur Amphetamines Screen Negative MDMA (Ecstasy) Screen Negative Benzodiazepines Screen Negative Cocaine Screen Negative U Marijuana (THC) Screen Negative Alcohol, Quantitative Influenza A (Rapid) Influenza B (Rapid) Blood Type Antibody Screen Crossmatch 05/02/18 05/02/18 05/02/18 00:00 00:00 00:09 WBC RBC Hgb Hct MCV MCH MCHC RDW Plt Count MPV Absolute Neuts (auto) Neutrophils % Neutrophils % (Manual) Band Neutrophils % Lymphocytes % Lymphocytes % (Manual) Monocytes % Monocytes % (Manual) Eosinophils % Eosinophils % (Manual) Basophils % Basophils % (Manual) Myelocytes % (Man) Promyelocytes % (Man) Blast Cells % (Manual) Nucleated RBC % Metamyelocytes Hypochromia Platelet Estimate Platelet Comment Polychromasia Poikilocytosis Anisocytosis Microcytosis Macrocytosis Spherocytes Tear Drop Cells Ovalocytes Acanthocytes (Spur) PT with INR INR PTT (Actin FS) Sodium 139 Potassium 2.8 L* Chloride 101 Carbon Dioxide 15 L Anion Gap 23 H BUN 28 H Creatinine 1.1 Creat Clearance w eGFR > 60 Random Glucose 65 L Lactic Acid 9.0 H* Calcium 6.1 L* Phosphorus 3.1 Magnesium 1.3 L Total Bilirubin AST ALT Alkaline Phosphatase Total Protein Albumin Lipase Urine Color Urine Appearance Urine pH Ur Specific [place] Urine Protein Urine Glucose (UA) Urine Ketones Urine Blood Urine Nitrite Urine Bilirubin Urine Urobilinogen Ur Leukocyte Esterase Urine WBC (Auto) Urine RBC (Auto) Ur Epithelial Cells Urine Bacteria Hyaline Casts Urine Mucus Random Vancomycin Opiates Screen Methadone Screen Barbiturate Screen Phencyclidine Screen Ur Amphetamines Screen MDMA (Ecstasy) Screen Benzodiazepines Screen Cocaine Screen U Marijuana (THC) Screen Alcohol, Quantitative Influenza A (Rapid) Negative Influenza B (Rapid) Negative Blood Type Antibody Screen Crossmatch 05/02/18 05/02/18 05/02/18 05:30 05:30 05:30 WBC 2.4 L RBC 4.65 Hgb 12.2 Hct 38.6 MCV 83.1 MCH 26.3 MCHC 31.6 L RDW 18.2 H Plt Count 27 L* D MPV 10.9 Absolute Neuts (auto) 2.1 Neutrophils % 86.1 H Neutrophils % (Manual) Band Neutrophils % Lymphocytes % 5.8 L D Lymphocytes % (Manual) Monocytes % 8.0 D Monocytes % (Manual) Eosinophils % 0.1 D Eosinophils % (Manual) Basophils % 0.0 Basophils % (Manual) Myelocytes % (Man) Promyelocytes % (Man) Blast Cells % (Manual) Nucleated RBC % 0 Metamyelocytes Hypochromia Platelet Estimate Platelet Comment Polychromasia Poikilocytosis Anisocytosis Microcytosis Macrocytosis Spherocytes Tear Drop Cells Ovalocytes Acanthocytes (Spur) PT with INR 18.10 H INR 1.53 H PTT (Actin FS) 36.6 H Sodium Potassium Chloride Carbon Dioxide Anion Gap BUN Creatinine Creat Clearance w eGFR Random Glucose Lactic Acid Calcium Phosphorus Magnesium Total Bilirubin AST ALT Alkaline Phosphatase Total Protein Albumin Lipase Urine Color Urine Appearance Urine pH Ur Specific [place] Urine Protein Urine Glucose (UA) Urine Ketones Urine Blood Urine Nitrite Urine Bilirubin Urine Urobilinogen Ur Leukocyte Esterase Urine WBC (Auto) Urine RBC (Auto) Ur Epithelial Cells Urine Bacteria Hyaline Casts Urine Mucus Random Vancomycin 9.1 L Opiates Screen Methadone Screen Barbiturate Screen Phencyclidine Screen Ur Amphetamines Screen MDMA (Ecstasy) Screen Benzodiazepines Screen Cocaine Screen U Marijuana (THC) Screen Alcohol, Quantitative Influenza A (Rapid) Influenza B (Rapid) Blood Type Antibody Screen Crossmatch Active Medications Generic Name Dose Route Start Last Admin Trade Name Freq PRN Reason Stop Dose Admin Acetaminophen 1,000 mg 05/02/18 07:40 Ofirmev Injection - IVPB Q6H PRN PAIN OR FEVER Chlorhexidine Gluconate 1 applic 05/01/18 22:00 05/01/18 23:40 Hibiclens For Decolonization - TP 1 applic HS ALPA Administration Octreotide Acetate 1,200 mcg/ 500 mls @ 20.83 mls/hr 05/01/18 15:00 05/01/18 16:42 Dextrose IVPB 20.83 mls/hr ASDIR ALPA Administration 50 MCG/HR Pantoprazole Sodium 80 mg/ 100 mls @ 10 mls/hr 05/01/18 17:00 05/02/18 04:12 Sodium Chloride IVPB 10 mls/hr Q10H ALPA Administration 8 MG/HR Potassium Chloride/Sodium Chloride 20 meq in 1,000 mls @ 125 mls/hr 05/01/18 21:30 05/02/18 00:42 Ns+20 Meq Kcl - IV 125 mls/hr ASDIR ALPA Administration Piperacillin Sod/Tazobactam 50 mls @ 100 mls/hr 05/01/18 21:45 05/02/18 02:56 Sod 3.375 gm/ Dextrose IVPB 100 mls/hr Q6H-IV ALPA Administration Protocol Norepinephrine Bitartrate 8, 500 mls @ 18.75 mls/hr 05/02/18 06:30 05/01/18 23:30 000 mcg/ Dextrose IV 10 mcg/min TITR ALPA 37.5 mls/hr Administration Protocol 5 MCG/MIN Influenza Virus Vaccine Quadrival 60 mcg 05/02/18 10:00 Flulaval Quad [id number] IM 05/02/18 10:01 .ONCE ONE Lorazepam 2 mg 05/01/18 19:18 05/02/18 06:56 Ativan Injection - IVPUSH 2 mg Q4H PRN Administration ANXIETY Metoclopramide HCl 10 mg 05/01/18 19:00 05/02/18 01:43 Reglan Injection - IVPB 10 mg Q8H-IV ALPA Administration Morphine Sulfate 4 mg 05/01/18 16:35 Morphine Sulfate IVPUSH Q6H PRN PAIN LEVEL 7 - 10 Mupirocin 1 applic 05/01/18 22:00 05/01/18 23:40 Bactroban Ointment (For Decolonization) - NS 05/06/18 21:59 1 applic BID ALPA Administration Ondansetron HCl 4 mg 05/01/18 19:00 05/02/18 06:56 Zofran Injection IVPB 4 mg Q4H-IV ALPA Administration ASSESSMENT/PLAN: 53yo m with PMH of GI bleed, EtOH abuse, seizures?, HTN, anemia, varicies, presenting to ICU w/ acute GIB bleed, likely upper and etoh abuse. Now found w/ septic shock unclear etiology on pressors. NEURO intact AOX3 monitor for etoh withdrawal last drink 1pt of Vodka this morning Utox - neg BAL - 236 s/p banana bag Thiamin 500 tid Ativan prn if withdrawal sxs seizures? - questionable hx of seizures. was evaluated by Neuro on prior admission in 02/2018. was given keppra but it was stopped as seizure was likely caused by alcohol use. Patient at that time indicated he has always had seizures only in setting of ETOH withdrawl. Pt not having any seizure like activity on this admission. Will cont to monitor. Fall?- Head CT when hemodynamically stable Cardiac/PULM/GI SVT?/sinus tach 2/2 sepsis - HR was in 170s but unresponsive to adenosine, responded to Lopressor and now in 130s. Echocardiography to assess LV/RV and valvular function cardio consult R IJ central line 05/01/18, on levophed gtt titrate pressors to maintain MAP > 65 O2 as needed cardiac monitoring monitor H/H - 14...12 (dilutional?) s/p 1 u prbc in ED. transfuse if <7 or significant drop in Hgb c/w active GIB s/p 7 L IVF s/p banana bag D5 NS 20 K 100cc/hr NPO pain ctl - IV morphine/tylenol reglan - nausea EKG: sinus tachycardia. no ST changes, Qtc 512 monitor Qtc cxr - no acute pathology elevate head of bed, aspiration precautions FOBT protonix gtt octreotide - hx varices?, may be source of bleed GI consult underwent EGD 07/[address] Hester that revealed severe erosive esophagitis. has had + FOBT in past elevated lactic - trend lactic acid EGD deferred because of Septic shock ID septic shock, unclear etiology, w/ fevers (Tmax 105) and R IJ placement. Currently on levophed and s/p 7 L IVF s/p CTX/zosyn in ED ID consult vanc/zosyn UA - 1+ ketones, blood , proteins f/u ucx, bcx legionella, flu neg HEME Neuropenia and thrombocytopenia likely 2/2 septic shock fibrinogen nl heme consult 2U FFP plt in 30s w/ active bleed, give 2U plt vit k 10mg sq x1 dose RENAL Anion Gap acidosis/lactic acidosis w/ multiple lyte abnl consistent w/ ETOH ketoacidosis - hypo K, Mg, Ca, Cl HU- likely pre renal monitor Cr, UOP s/p 7 L IVF D5 NS 20 K 100cc/hr yeung FEN D5 NS 20 K 100cc/hr replete prn NPO ppx SCD protonix gtt Dispo: ICU monitoring EGD deferred because of Septic shock Head CT when hemodynamically stable Visit type - Emergency Visit Emergency Visit: Yes ED Registration Date: 05/01/18 Care time: The patient presented to the Emergency Department on the above date and was hospitalized for further evaluation of their emergent condition. - New Patient This patient is new to me today: Yes Date on this admission: 05/02/18 - Critical Care Critical Care patient: Yes Total Critical Care Time (in minutes): 40 Critical Care Statement: The care of this patient involved high complexity decision making to prevent further life threatening deterioration of the patient 's condition and/or to evaluate & treat vital organ system(s) failure or risk of failure.
[2018-05-02 08:39] LABS: CALCIUM 6.5 mg/dL (8.5-10.1)
[2018-05-02] MEDS ORDERED: POTASSIUM CHLORIDE 20 MEQ PREMIX IVPB 100 ML IVPB ONE ×2 (09:00→12:45)
[2018-05-02] MEDS ORDERED: PHYTONADIONE 10 MG/1 ML AMP SQ ONE ×2 (09:00→11:47)
--- NOTE | 2018-05-02 09:04 | PN ---
GI Progress Note Subjective: patient on levophed, Tmax 103, had 1 episode of melena but Hgb remain to be 12 despite receiving 6 liters of IVF, patieint more arousable, hygiene much better after nursing care, EGD deferred because of Septic shock - Objective Vital Signs: Vital Signs Temperature 100.6 F H 05/02/18 06:00 Pulse Rate 133 H 05/02/18 08:00 Respiratory Rate 35 H 05/02/18 08:00 Blood Pressure 106/81 05/02/18 08:00 O2 Sat by Pulse Oximetry (%) 89 L 05/01/18 21:29 Constitutional: Well Nourished Eyes: Yes: Conjunctiva Clear HENT: Yes: Atraumatic Neck: Yes: Supple Cardiovascular: Yes: Regular Rate and Rhythm Respiratory: Yes: CTA Bilaterally ...Palpate: Yes: Soft. No: Firm/Rigid, Guarding, Hepatomegaly, Mass, Pulsatile Mass, Splenomegaly, Tenderness, Epigastium Labs: CBC, BMP 05/02/18 05:30 05/02/18 05:30 INR, PTT INR 1.53 (0.83-1.09) H 05/02/18 05:30 Problem List - Problems (1) Hematemesis Assessment/Plan: improved R> conitnue IV Protonix and IV Reglan Code(s): K92.0 - HEMATEMESIS (2) Septic shock Assessment/Plan: R> continue antibiotics correct electrolytes correct thrombocytopenia transfuse 2 units FFP vit k 10mg sq x1 dose Code(s): A41.9 - SEPSIS, UNSPECIFIED ORGANISM; R65.21 - SEVERE SEPSIS WITH SEPTIC SHOCK
[2018-05-02] MEDS: KCL 10 MEQ IVPB 10 MEQ/100 ML INFUS.BAG IVPB SCH ×4 (09:05→13:06)
[2018-05-02] MEDS: MUPIROCIN 2% TOPICAL OINTMENT FOR DECOLONIZATION NS SCH ×2 (09:06→23:36)
[2018-05-02] MEDS ORDERED: FLU VACCINE QUAD 60 MCG/0.5 ML (MDV 18-19) IM ONE (10:00)
--- NOTE | 2018-05-02 10:12 | CON.CARD ---
Consult Consult Specialty:: Cardiology Referred by:: Dr. Lagunas Reason for Consultation:: Cardiac evaluation - History of Present Illness Chief Complaint: GI bleed, fever, hypotension History of Present Illness: Patient is a 53 year old male of descent who was admitted with GI bleed , underlying history of ETOH abuse, varices, erosive esophagitis and anemia. He complained of hematemesis and had stated the he drank 1 pint of Vodka. He complained of diffuse abdominal pain, headahe, back pain and weakness. He also has fever and was found to be hypotensive suggestive of septic shock. He was given pressor (Levophed) along with fluid resuscitation. He was given antibiotics and admitted to ICU for further management. GI was consulted and is awaiting further work up. Blood work reveals neutropenia and thrombocytopenia. He denies chest pain. ECG reveals sinus tachycardia. High flow O2 via NC has been applied. He is breathing comfortably on it. He denies nausea or vomiting at this time. He has been noncompliant with medical follow ups. - History Source History Provided By: Patient, Medical Record Limitations to Obtaining History: Clinical Condition - Past Medical History [employer]: Yes: Seizure Cardio/Vascular: Yes: HTN Gastrointestinal: Yes: GI Bleed (upper GI bleed confirmed by EGD, shown to have erosive esophagitis) Infectious Disease: Yes: Other (h/o TB treated 2008 per [facility] notes) Psych: Yes: Addictions (alcohol abuse) - Alcohol/Substance Use Hx Alcohol Use: Yes - Smoking History Smoking history: Current every day smoker Have you smoked in the past 12 months: Yes Aproximately how many cigarettes per day: 20 Home Medications - Allergies Allergies/Adverse Reactions: Allergies Allergy/AdvReac Type Severity Reaction Status Date / Time No Known Allergies Allergy Verified 05/01/18 13:35 Family Disease History - Family Disease History Family History: Unable to Obtain Review of Systems - Review of Systems Constitutional: denies: Chills, Fever Cardiovascular: reports: Shortness of Breath. denies: Chest Pain, Palpitations Respiratory: denies: Cough, Hemoptysis, Orthopnea, PND Gastrointestinal: reports: Other (hematemesis). denies: Abdominal Pain, Diarrhea Neurological: denies: Dizziness, Headache, Syncope, Tremors Vital Signs: Vital Signs Temperature 100.6 F H 05/02/18 06:00 Pulse Rate 133 H 05/02/18 08:00 Respiratory Rate 35 H 05/02/18 08:00 Blood Pressure 106/81 05/02/18 08:00 O2 Sat by Pulse Oximetry (%) 89 L 05/01/18 21:29 Neck: Yes: Supple Respiratory: Yes: Diminished Gastrointestinal: Yes: Other (Firm). No: Tenderness Cardiovascular: Yes: Regular Rate and Rhythm, Tachycardia JVD: No Carotid Bruit: No PMI: Non-Displaced Heart Sounds: Yes: S1, S2 Murmur: No: Systolic Murmur, Diastolic Murmur Edema: No - Other Data Labs, Other Data: CBC, BMP 05/02/18 05:30 05/02/18 05:30 INR, PTT INR 1.53 (0.83-1.09) H 05/02/18 05:30 Laboratory Results - last 24 hr 05/01/18 05/01/18 05/01/18 13:53 13:53 13:53 WBC 14.8 H RBC 5.21 Hgb 14.1 Hct 42.0 MCV 80.5 MCH 27.1 MCHC 33.7 RDW 18.1 H Plt Count 89 L MPV 9.9 Absolute Neuts (auto) 13.7 H Neutrophils % 92.9 H D Neutrophils % (Manual) 68.4 D Band Neutrophils % 24.5 Lymphocytes % 2.8 L D Lymphocytes % (Manual) 2.1 L D Monocytes % 4.2 D Monocytes % (Manual) 2 L D Eosinophils % 0.0 D Eosinophils % (Manual) 0.0 D Basophils % 0.1 Basophils % (Manual) 0.0 Myelocytes % (Man) 0 D Promyelocytes % (Man) 0 Blast Cells % (Manual) 0 Nucleated RBC % 0 Metamyelocytes 1 D Hypochromia 0 Platelet Estimate Decreased Platelet Comment Present Polychromasia 1+ Poikilocytosis 1+ Anisocytosis 1+ Microcytosis 1+ Macrocytosis 0 Spherocytes 1+ Tear Drop Cells 1+ Ovalocytes 1+ Acanthocytes (Spur) 1+ PT with INR 16.70 H INR 1.41 H PTT (Actin FS) Sodium 131 L Potassium 2.9 L* Chloride 86 L Carbon Dioxide 18 L Anion Gap 27 H BUN 27 H Creatinine 1.7 H Creat Clearance w eGFR 42.21 Random Glucose 91 Lactic Acid Calcium 7.3 L Phosphorus Magnesium Total Bilirubin 1.4 H AST 57 H ALT 42 Alkaline Phosphatase 68 Total Protein 7.8 Albumin 3.6 Lipase 181 Urine Color Urine Appearance Urine pH Ur Specific [place] Urine Protein Urine Glucose (UA) Urine Ketones Urine Blood Urine Nitrite Urine Bilirubin Urine Urobilinogen Ur Leukocyte Esterase Urine WBC (Auto) Urine RBC (Auto) Ur Epithelial Cells Urine Bacteria Hyaline Casts Urine Mucus Random Vancomycin Opiates Screen Methadone Screen Barbiturate Screen Phencyclidine Screen Ur Amphetamines Screen MDMA (Ecstasy) Screen Benzodiazepines Screen Cocaine Screen U Marijuana (THC) Screen Alcohol, Quantitative Influenza A (Rapid) Influenza B (Rapid) Blood Type Antibody Screen Crossmatch 05/01/18 05/01/18 05/01/18 13:53 13:53 13:53 WBC RBC Hgb Hct MCV MCH MCHC RDW Plt Count MPV Absolute Neuts (auto) Neutrophils % Neutrophils % (Manual) Band Neutrophils % Lymphocytes % Lymphocytes % (Manual) Monocytes % Monocytes % (Manual) Eosinophils % Eosinophils % (Manual) Basophils % Basophils % (Manual) Myelocytes % (Man) Promyelocytes % (Man) Blast Cells % (Manual) Nucleated RBC % Metamyelocytes Hypochromia Platelet Estimate Platelet Comment Polychromasia Poikilocytosis Anisocytosis Microcytosis Macrocytosis Spherocytes Tear Drop Cells Ovalocytes Acanthocytes (Spur) PT with INR INR PTT (Actin FS) 29.5 Sodium Potassium Chloride Carbon Dioxide Anion Gap BUN Creatinine Creat Clearance w eGFR Random Glucose Lactic Acid Calcium Phosphorus Magnesium Total Bilirubin AST ALT Alkaline Phosphatase Total Protein Albumin Lipase Cancelled Urine Color Urine Appearance Urine pH Ur Specific [place] Urine Protein Urine Glucose (UA) Urine Ketones Urine Blood Urine Nitrite Urine Bilirubin Urine Urobilinogen Ur Leukocyte Esterase Urine WBC (Auto) Urine RBC (Auto) Ur Epithelial Cells Urine Bacteria Hyaline Casts Urine Mucus Random Vancomycin Opiates Screen Methadone Screen Barbiturate Screen Phencyclidine Screen Ur Amphetamines Screen MDMA (Ecstasy) Screen Benzodiazepines Screen Cocaine Screen U Marijuana (THC) Screen Alcohol, Quantitative Influenza A (Rapid) Influenza B (Rapid) Blood Type Cancelled Antibody Screen Cancelled Crossmatch See Detail 05/01/18 05/01/18 05/01/18 14:20 16:45 17:40 WBC RBC Hgb Hct MCV MCH MCHC RDW Plt Count MPV Absolute Neuts (auto) Neutrophils % Neutrophils % (Manual) Band Neutrophils % Lymphocytes % Lymphocytes % (Manual) Monocytes % Monocytes % (Manual) Eosinophils % Eosinophils % (Manual) Basophils % Basophils % (Manual) Myelocytes % (Man) Promyelocytes % (Man) Blast Cells % (Manual) Nucleated RBC % Metamyelocytes Hypochromia Platelet Estimate Platelet Comment Polychromasia Poikilocytosis Anisocytosis Microcytosis Macrocytosis Spherocytes Tear Drop Cells Ovalocytes Acanthocytes (Spur) PT with INR INR PTT (Actin FS) Sodium Potassium Chloride Carbon Dioxide Anion Gap BUN Creatinine Creat Clearance w eGFR Random Glucose Lactic Acid 9.2 H* 7.6 H* Calcium Phosphorus Magnesium Total Bilirubin AST ALT Alkaline Phosphatase Total Protein Albumin Lipase Urine Color Urine Appearance Urine pH Ur Specific [place] Urine Protein Urine Glucose (UA) Urine Ketones Urine Blood Urine Nitrite Urine Bilirubin Urine Urobilinogen Ur Leukocyte Esterase Urine WBC (Auto) Urine RBC (Auto) Ur Epithelial Cells Urine Bacteria Hyaline Casts Urine Mucus Random Vancomycin Opiates Screen Methadone Screen Barbiturate Screen Phencyclidine Screen Ur Amphetamines Screen MDMA (Ecstasy) Screen Benzodiazepines Screen Cocaine Screen U Marijuana (THC) Screen Alcohol, Quantitative Influenza A (Rapid) Influenza B (Rapid) Blood Type A POSITIVE Antibody Screen Negative Crossmatch See Detail 05/01/18 05/01/18 05/01/18 17:50 17:50 17:50 WBC 6.6 RBC 4.97 Hgb 13.8 Hct 40.5 MCV 81.3 MCH 27.7 MCHC 34.1 RDW 18.2 H Plt Count 66 L D MPV 9.7 Absolute Neuts (auto) 5.8 Neutrophils % 88.2 H Neutrophils % (Manual) Band Neutrophils % Lymphocytes % 7.5 L D Lymphocytes % (Manual) Monocytes % 4.1 Monocytes % (Manual) Eosinophils % 0.0 Eosinophils % (Manual) Basophils % 0.2 Basophils % (Manual) Myelocytes % (Man) Promyelocytes % (Man) Blast Cells % (Manual) Nucleated RBC % 0 Metamyelocytes Hypochromia Platelet Estimate Platelet Comment Polychromasia Poikilocytosis Anisocytosis Microcytosis Macrocytosis Spherocytes Tear Drop Cells Ovalocytes Acanthocytes (Spur) PT with INR INR PTT (Actin FS) Sodium 134 L Potassium 3.5 Chloride 95 L Carbon Dioxide 14 L Anion Gap 26 H BUN 29 H Creatinine 1.4 H Creat Clearance w eGFR 52.81 Random Glucose 102 Lactic Acid Calcium 6.5 L* Phosphorus 4.5 Magnesium 0.9 L Total Bilirubin 1.0 AST 58 H ALT 37 Alkaline Phosphatase 53 Total Protein 6.4 Albumin 2.9 L Lipase Urine Color Urine Appearance Urine pH Ur Specific [place] Urine Protein Urine Glucose (UA) Urine Ketones Urine Blood Urine Nitrite Urine Bilirubin Urine Urobilinogen Ur Leukocyte Esterase Urine WBC (Auto) Urine RBC (Auto) Ur Epithelial Cells Urine Bacteria Hyaline Casts Urine Mucus Random Vancomycin Opiates Screen Methadone Screen Barbiturate Screen Phencyclidine Screen Ur Amphetamines Screen MDMA (Ecstasy) Screen Benzodiazepines Screen Cocaine Screen U Marijuana (THC) Screen Alcohol, Quantitative 236.1 H Influenza A (Rapid) Influenza B (Rapid) Blood Type Antibody Screen Crossmatch 05/01/18 05/01/18 05/02/18 20:52 20:52 00:00 WBC 1.6 L* RBC 4.43 Hgb 12.4 Hct 36.5 MCV 82.4 MCH 27.9 MCHC 33.9 RDW 17.8 H Plt Count 39 L D MPV 11.0 D Absolute Neuts (auto) Neutrophils % Neutrophils % (Manual) Band Neutrophils % Lymphocytes % Lymphocytes % (Manual) Monocytes % Monocytes % (Manual) Eosinophils % Eosinophils % (Manual) Basophils % Basophils % (Manual) Myelocytes % (Man) Promyelocytes % (Man) Blast Cells % (Manual) Nucleated RBC % Metamyelocytes Hypochromia Platelet Estimate Platelet Comment Polychromasia Poikilocytosis Anisocytosis Microcytosis Macrocytosis Spherocytes Tear Drop Cells Ovalocytes Acanthocytes (Spur) PT with INR INR PTT (Actin FS) Sodium Potassium Chloride Carbon Dioxide Anion Gap BUN Creatinine Creat Clearance w eGFR Random Glucose Lactic Acid Calcium Phosphorus Magnesium Total Bilirubin AST ALT Alkaline Phosphatase Total Protein Albumin Lipase Urine Color Dkyellow Urine Appearance Cloudy Urine pH 5.0 Ur Specific [place] 1.020 Urine Protein 1+ H D Urine Glucose (UA) Negative Urine Ketones 1+ H Urine Blood 1+ H Urine Nitrite Negative Urine Bilirubin Negative Urine Urobilinogen Negative Ur Leukocyte Esterase Trace Urine WBC (Auto) 3 Urine RBC (Auto) 4 Ur Epithelial Cells Rare Urine Bacteria Rare Hyaline Casts 12 Urine Mucus Rare Random Vancomycin Opiates Screen Negative Methadone Screen Negative Barbiturate Screen Negative Phencyclidine Screen Negative Ur Amphetamines Screen Negative MDMA (Ecstasy) Screen Negative Benzodiazepines Screen Negative Cocaine Screen Negative U Marijuana (THC) Screen Negative Alcohol, Quantitative Influenza A (Rapid) Influenza B (Rapid) Blood Type Antibody Screen Crossmatch 05/02/18 05/02/18 05/02/18 00:00 00:00 00:09 WBC RBC Hgb Hct MCV MCH MCHC RDW Plt Count MPV Absolute Neuts (auto) Neutrophils % Neutrophils % (Manual) Band Neutrophils % Lymphocytes % Lymphocytes % (Manual) Monocytes % Monocytes % (Manual) Eosinophils % Eosinophils % (Manual) Basophils % Basophils % (Manual) Myelocytes % (Man) Promyelocytes % (Man) Blast Cells % (Manual) Nucleated RBC % Metamyelocytes Hypochromia Platelet Estimate Platelet Comment Polychromasia Poikilocytosis Anisocytosis Microcytosis Macrocytosis Spherocytes Tear Drop Cells Ovalocytes Acanthocytes (Spur) PT with INR INR PTT (Actin FS) Sodium 139 Potassium 2.8 L* Chloride 101 Carbon Dioxide 15 L Anion Gap 23 H BUN 28 H Creatinine 1.1 Creat Clearance w eGFR > 60 Random Glucose 65 L Lactic Acid 9.0 H* Calcium 6.1 L* Phosphorus 3.1 Magnesium 1.3 L Total Bilirubin AST ALT Alkaline Phosphatase Total Protein Albumin Lipase Urine Color Urine Appearance Urine pH Ur Specific [place] Urine Protein Urine Glucose (UA) Urine Ketones Urine Blood Urine Nitrite Urine Bilirubin Urine Urobilinogen Ur Leukocyte Esterase Urine WBC (Auto) Urine RBC (Auto) Ur Epithelial Cells Urine Bacteria Hyaline Casts Urine Mucus Random Vancomycin Opiates Screen Methadone Screen Barbiturate Screen Phencyclidine Screen Ur Amphetamines Screen MDMA (Ecstasy) Screen Benzodiazepines Screen Cocaine Screen U Marijuana (THC) Screen Alcohol, Quantitative Influenza A (Rapid) Negative Influenza B (Rapid) Negative Blood Type Antibody Screen Crossmatch 05/02/18 05/02/18 05/02/18 05:30 05:30 05:30 WBC 2.4 L RBC 4.65 Hgb 12.2 Hct 38.6 MCV 83.1 MCH 26.3 MCHC 31.6 L RDW 18.2 H Plt Count 27 L* D MPV 10.9 Absolute Neuts (auto) 2.1 Neutrophils % 86.1 H Neutrophils % (Manual) Band Neutrophils % Lymphocytes % 5.8 L D Lymphocytes % (Manual) Monocytes % 8.0 D Monocytes % (Manual) Eosinophils % 0.1 D Eosinophils % (Manual) Basophils % 0.0 Basophils % (Manual) Myelocytes % (Man) Promyelocytes % (Man) Blast Cells % (Manual) Nucleated RBC % 0 Metamyelocytes Hypochromia Platelet Estimate Platelet Comment Polychromasia Poikilocytosis Anisocytosis Microcytosis Macrocytosis Spherocytes Tear Drop Cells Ovalocytes Acanthocytes (Spur) PT with INR 18.10 H INR 1.53 H PTT (Actin FS) 36.6 H Sodium Potassium Chloride Carbon Dioxide Anion Gap BUN Creatinine Creat Clearance w eGFR Random Glucose Lactic Acid Calcium Phosphorus Magnesium Total Bilirubin AST ALT Alkaline Phosphatase Total Protein Albumin Lipase Urine Color Urine Appearance Urine pH Ur Specific [place] Urine Protein Urine Glucose (UA) Urine Ketones Urine Blood Urine Nitrite Urine Bilirubin Urine Urobilinogen Ur Leukocyte Esterase Urine WBC (Auto) Urine RBC (Auto) Ur Epithelial Cells Urine Bacteria Hyaline Casts Urine Mucus Random Vancomycin 9.1 L Opiates Screen Methadone Screen Barbiturate Screen Phencyclidine Screen Ur Amphetamines Screen MDMA (Ecstasy) Screen Benzodiazepines Screen Cocaine Screen U Marijuana (THC) Screen Alcohol, Quantitative Influenza A (Rapid) Influenza B (Rapid) Blood Type Antibody Screen Crossmatch 05/02/18 05/02/18 05:30 05:30 WBC RBC Hgb Hct MCV MCH MCHC RDW Plt Count MPV Absolute Neuts (auto) Neutrophils % Neutrophils % (Manual) Band Neutrophils % Lymphocytes % Lymphocytes % (Manual) Monocytes % Monocytes % (Manual) Eosinophils % Eosinophils % (Manual) Basophils % Basophils % (Manual) Myelocytes % (Man) Promyelocytes % (Man) Blast Cells % (Manual) Nucleated RBC % Metamyelocytes Hypochromia Platelet Estimate Platelet Comment Polychromasia Poikilocytosis Anisocytosis Microcytosis Macrocytosis Spherocytes Tear Drop Cells Ovalocytes Acanthocytes (Spur) PT with INR INR PTT (Actin FS) Sodium 135 L Potassium 3.2 L Chloride 97 L Carbon Dioxide 19 L Anion Gap 18 H BUN 22 H Creatinine 0.9 Creat Clearance w eGFR > 60 Random Glucose 130 H Lactic Acid 8.3 H* Calcium 6.5 L* Phosphorus 2.8 Magnesium 1.1 L Total Bilirubin 1.3 H AST 106 H ALT 45 Alkaline Phosphatase 43 L Total Protein 5.3 L Albumin 2.4 L Lipase Urine Color Urine Appearance Urine pH Ur Specific [place] Urine Protein Urine Glucose (UA) Urine Ketones Urine Blood Urine Nitrite Urine Bilirubin Urine Urobilinogen Ur Leukocyte Esterase Urine WBC (Auto) Urine RBC (Auto) Ur Epithelial Cells Urine Bacteria Hyaline Casts Urine Mucus Random Vancomycin Opiates Screen Methadone Screen Barbiturate Screen Phencyclidine Screen Ur Amphetamines Screen MDMA (Ecstasy) Screen Benzodiazepines Screen Cocaine Screen U Marijuana (THC) Screen Alcohol, Quantitative Influenza A (Rapid) Influenza B (Rapid) Blood Type Antibody Screen Crossmatch Sinus tachycardia Echo: Pending Imaging - Results Chest X-ray: Report Reviewed Cat Scan: Pending (Head CT ordered since he may have fallen at home) EKG: Report Reviewed Problem List - Problems (1) Sepsis Code(s): A41.9 - SEPSIS, UNSPECIFIED ORGANISM (2) Alcohol use disorder Code(s): MYH5165 - (3) Erosive esophagitis Code(s): K22.10 - ULCER OF ESOPHAGUS WITHOUT BLEEDING (4) Hematemesis Code(s): K92.0 - HEMATEMESIS (5) Seizure Code(s): R56.9 - UNSPECIFIED CONVULSIONS (6) Thrombocytopenia Code(s): D69.6 - THROMBOCYTOPENIA, UNSPECIFIED (7) UGIB (upper gastrointestinal bleed) Code(s): K92.2 - GASTROINTESTINAL HEMORRHAGE, UNSPECIFIED (8) Tachycardia Code(s): R00.0 - TACHYCARDIA, UNSPECIFIED Assessment/Plan 1. Hypotension and fever c/w septic shock, etiology to be determined 2. GI bleed with history of erosive esophagitis and varices 3. ETOH abuse 4. Neuropenia and thrombocytopenia due to #1 5. ? History of seizure, ? ETOH related 6. Sinus tachycardia due to above PLAN: 1. Continue current management as per critical care team. Continue Pressor support but can be weaned as necessary 2. Broad spectrum antibiotic coverage. Sepsis work up 3. Echocardiography to assess LV/RV and valvular function 4. Head CT post possible fall 5. Monitor CBC (WBC and Platelet) and transfuse as needed. 6. Await further ID and Hematology evaluation 7. GI work up to follow once CT head is negative Guarded Imtiaz Rodriguez MD
[2018-05-02] MEDS ORDERED: PT OWN MED DRAWER 7, Y5N ONE ×5 (11:46→23:37)
[2018-05-02] MEDS: D5-NS + 20 MEQ KCL - 20 MEQ/1,000 ML INFUS.BAG IV SCH (11:47)
[2018-05-02 12:01] LABS: ACANTHOCYTES 0; ANISOCYTOSIS 0; HELMET CELLS 0; HOWELL-JOLLY BODIES 0; MACROCYTOSIS 0; OVALOCYTE 0; PLATELET ESTIMATE DECREASED; ROULEAU 0; SICKELED CELLS 0; TARGET CELLS 0; TEAR DROP CELLS 0; TOXIC GRANULATION 0
--- NOTE | 2018-05-02 13:03 | PN ---
Teaching Attending Note Name of Resident: Dre Martinez ATTENDING PHYSICIAN STATEMENT I saw and evaluated the patient. I reviewed the resident's note and discussed the case with the resident. I agree with the resident's findings and plan as documented. SUBJECTIVE: Patient seen and examined in the ICU. Awake and responsive. NE @ 10 mcq for hemodynamic support. Denies CP or SOB. Noted elevated lactic acid (? due to hepatic inability to clear) No active bleeding noted. Intake & Output 04/29/18 04/30/18 05/01/18 05/02/18 23:59 23:59 23:59 23:59 Intake Total 3340 6245 Output Total 700 2875 Balance 2640 3370 Weight 160 lb 160 lb Last Vital Signs Temp Pulse Resp BP Pulse Ox 99.0 F 150 H 31 H 147/99 89 L 05/02/18 10:00 05/02/18 12:00 05/02/18 12:00 05/02/18 12:00 05/01/18 21:29 Active Medications Acetaminophen (Ofirmev Injection -) 1,000 mg IVPB Q6H PRN PRN Reason: PAIN OR FEVER Last Admin: 05/02/18 07:50 Dose: 1,000 mg Chlorhexidine Gluconate (Hibiclens For Decolonization -) 1 applic TP HS ALPA Last Admin: 05/01/18 23:40 Dose: 1 applic Octreotide Acetate 1,200 mcg/ (Dextrose) 500 mls @ 20.83 mls/hr IVPB ASDIR ALPA Last Admin: 05/01/18 16:42 Dose: 20.83 mls/hr Pantoprazole Sodium 80 mg/ (Sodium Chloride) 100 mls @ 10 mls/hr IVPB Q10H ALPA Last Admin: 05/02/18 04:12 Dose: 10 mls/hr Piperacillin Sod/Tazobactam (Sod 3.375 gm/ Dextrose) 50 mls @ 100 mls/hr IVPB Q6H-IV ALPA; Protocol Last Admin: 05/02/18 08:59 Dose: 100 mls/hr Norepinephrine Bitartrate 8, (000 mcg/ Dextrose) 500 mls @ 18.75 mls/hr IV TITR ALPA; Protocol Last Admin: 05/01/18 23:30 Dose: 10 mcg/min, 37.5 mls/hr Potassium Chloride (Potassium Chloride 10 Meq Premix Ivpb -) 10 meq in 100 mls @ 100 mls/hr IVPB Q60M [facility] Stop: 05/02/18 12:59 Last Admin: 05/02/18 11:11 Dose: 100 mls/hr Dextrose/Sodium Chloride (Dextrose 5%-Normal Saline+20 Meq Kcl -) 20 meq in 1, 000 mls @ 100 mls/hr IV ASDIR ALPA Last Admin: 05/02/18 11:47 Dose: 100 mls/hr Lorazepam (Ativan Injection -) 2 mg IVPUSH Q4H PRN PRN Reason: ANXIETY Last Admin: 05/02/18 06:56 Dose: 2 mg Metoclopramide HCl (Reglan Injection -) 10 mg IVPB Q8H-IV ALPA Last Admin: 05/02/18 09:05 Dose: 10 mg Morphine Sulfate (Morphine Sulfate) 4 mg IVPUSH Q6H PRN PRN Reason: PAIN LEVEL 7 - 10 Mupirocin (Bactroban Ointment (For Decolonization) -) 1 applic NS BID [facility] Stop: 05/06/18 21:59 Last Admin: 05/02/18 09:06 Dose: 1 applic Thiamine HCl (Vitamin B1 Injection -) 500 mg IVPB TID [facility] GENERAL: AOX3 mild distress, not tremulous HEAD: NCAT EYES: sclera anicteric, conjunctiva clear. No lid lag. EARS, NOSE, THROAT: Ears normal, nares patent, oropharynx w/ dry blood. MMM NECK: Normal range of motion, supple without lymphadenopathy, JVD, or masses. LUNGS: Clear HEART:tachy RR, normal S1 and S2 without murmur, rub or gallop. ABDOMEN: Soft, ND TTP diffuse , normoactive bowel sounds MUSCULOSKELETAL: Normal range of motion at all joints. No bony deformities or tenderness. UPPER EXTREMITIES: 2+ pulses, warm, well-perfused. No cyanosis. No clubbing. Cap refill <2 seconds. No peripheral edema. LOWER EXTREMITIES: 2+ pulses, warm, well-perfused. No calf tenderness. No peripheral edema. NEUROLOGICAL: Non-focal PSYCHIATRIC: Good eye contact. SKIN: Warm, dry, normal turgor, no rashes or lesions noted. Laboratory Results - last 24 hr 05/01/18 05/01/18 05/01/18 13:53 13:53 13:53 WBC 14.8 H RBC 5.21 Hgb 14.1 Hct 42.0 MCV 80.5 MCH 27.1 MCHC 33.7 RDW 18.1 H Plt Count 89 L MPV 9.9 Absolute Neuts (auto) 13.7 H Neutrophils % 92.9 H D Neutrophils % (Manual) 68.4 D Band Neutrophils % 24.5 Lymphocytes % 2.8 L D Lymphocytes % (Manual) 2.1 L D Monocytes % 4.2 D Monocytes % (Manual) 2 L D Eosinophils % 0.0 D Eosinophils % (Manual) 0.0 D Basophils % 0.1 Basophils % (Manual) 0.0 Myelocytes % (Man) 0 D Promyelocytes % (Man) 0 Blast Cells % (Manual) 0 Nucleated RBC % 0 Metamyelocytes 1 D Hypochromia 0 Platelet Estimate Decreased Platelet Comment Present Polychromasia 1+ Poikilocytosis 1+ Anisocytosis 1+ Microcytosis 1+ Macrocytosis 0 Spherocytes 1+ Tear Drop Cells 1+ Ovalocytes 1+ Acanthocytes (Spur) 1+ PT with INR 16.70 H INR 1.41 H PTT (Actin FS) Fibrinogen Sodium 131 L Potassium 2.9 L* Chloride 86 L Carbon Dioxide 18 L Anion Gap 27 H BUN 27 H Creatinine 1.7 H Creat Clearance w eGFR 42.21 Random Glucose 91 Lactic Acid Calcium 7.3 L Phosphorus Magnesium Total Bilirubin 1.4 H AST 57 H ALT 42 Alkaline Phosphatase 68 Total Protein 7.8 Albumin 3.6 Lipase 181 Urine Color Urine Appearance Urine pH Ur Specific [place] Urine Protein Urine Glucose (UA) Urine Ketones Urine Blood Urine Nitrite Urine Bilirubin Urine Urobilinogen Ur Leukocyte Esterase Urine WBC (Auto) Urine RBC (Auto) Ur Epithelial Cells Urine Bacteria Hyaline Casts Urine Mucus Random Vancomycin Opiates Screen Methadone Screen Barbiturate Screen Phencyclidine Screen Ur Amphetamines Screen MDMA (Ecstasy) Screen Benzodiazepines Screen Cocaine Screen U Marijuana (THC) Screen Alcohol, Quantitative Influenza A (Rapid) Influenza B (Rapid) Blood Type Antibody Screen Crossmatch 05/01/18 05/01/18 05/01/18 13:53 13:53 13:53 WBC RBC Hgb Hct MCV MCH MCHC RDW Plt Count MPV Absolute Neuts (auto) Neutrophils % Neutrophils % (Manual) Band Neutrophils % Lymphocytes % Lymphocytes % (Manual) Monocytes % Monocytes % (Manual) Eosinophils % Eosinophils % (Manual) Basophils % Basophils % (Manual) Myelocytes % (Man) Promyelocytes % (Man) Blast Cells % (Manual) Nucleated RBC % Metamyelocytes Hypochromia Platelet Estimate Platelet Comment Polychromasia Poikilocytosis Anisocytosis Microcytosis Macrocytosis Spherocytes Tear Drop Cells Ovalocytes Acanthocytes (Spur) PT with INR INR PTT (Actin FS) 29.5 Fibrinogen Sodium Potassium Chloride Carbon Dioxide Anion Gap BUN Creatinine Creat Clearance w eGFR Random Glucose Lactic Acid Calcium Phosphorus Magnesium Total Bilirubin AST ALT Alkaline Phosphatase Total Protein Albumin Lipase Cancelled Urine Color Urine Appearance Urine pH Ur Specific [place] Urine Protein Urine Glucose (UA) Urine Ketones Urine Blood Urine Nitrite Urine Bilirubin Urine Urobilinogen Ur Leukocyte Esterase Urine WBC (Auto) Urine RBC (Auto) Ur Epithelial Cells Urine Bacteria Hyaline Casts Urine Mucus Random Vancomycin Opiates Screen Methadone Screen Barbiturate Screen Phencyclidine Screen Ur Amphetamines Screen MDMA (Ecstasy) Screen Benzodiazepines Screen Cocaine Screen U Marijuana (THC) Screen Alcohol, Quantitative Influenza A (Rapid) Influenza B (Rapid) Blood Type Cancelled Antibody Screen Cancelled Crossmatch See Detail 05/01/18 05/01/18 05/01/18 14:20 16:45 17:40 WBC RBC Hgb Hct MCV MCH MCHC RDW Plt Count MPV Absolute Neuts (auto) Neutrophils % Neutrophils % (Manual) Band Neutrophils % Lymphocytes % Lymphocytes % (Manual) Monocytes % Monocytes % (Manual) Eosinophils % Eosinophils % (Manual) Basophils % Basophils % (Manual) Myelocytes % (Man) Promyelocytes % (Man) Blast Cells % (Manual) Nucleated RBC % Metamyelocytes Hypochromia Platelet Estimate Platelet Comment Polychromasia Poikilocytosis Anisocytosis Microcytosis Macrocytosis Spherocytes Tear Drop Cells Ovalocytes Acanthocytes (Spur) PT with INR INR PTT (Actin FS) Fibrinogen Sodium Potassium Chloride Carbon Dioxide Anion Gap BUN Creatinine Creat Clearance w eGFR Random Glucose Lactic Acid 9.2 H* 7.6 H* Calcium Phosphorus Magnesium Total Bilirubin AST ALT Alkaline Phosphatase Total Protein Albumin Lipase Urine Color Urine Appearance Urine pH Ur Specific [place] Urine Protein Urine Glucose (UA) Urine Ketones Urine Blood Urine Nitrite Urine Bilirubin Urine Urobilinogen Ur Leukocyte Esterase Urine WBC (Auto) Urine RBC (Auto) Ur Epithelial Cells Urine Bacteria Hyaline Casts Urine Mucus Random Vancomycin Opiates Screen Methadone Screen Barbiturate Screen Phencyclidine Screen Ur Amphetamines Screen MDMA (Ecstasy) Screen Benzodiazepines Screen Cocaine Screen U Marijuana (THC) Screen Alcohol, Quantitative Influenza A (Rapid) Influenza B (Rapid) Blood Type A POSITIVE Antibody Screen Negative Crossmatch See Detail 05/01/18 05/01/18 05/01/18 17:50 17:50 17:50 WBC 6.6 RBC 4.97 Hgb 13.8 Hct 40.5 MCV 81.3 MCH 27.7 MCHC 34.1 RDW 18.2 H Plt Count 66 L D MPV 9.7 Absolute Neuts (auto) 5.8 Neutrophils % 88.2 H Neutrophils % (Manual) Band Neutrophils % Lymphocytes % 7.5 L D Lymphocytes % (Manual) Monocytes % 4.1 Monocytes % (Manual) Eosinophils % 0.0 Eosinophils % (Manual) Basophils % 0.2 Basophils % (Manual) Myelocytes % (Man) Promyelocytes % (Man) Blast Cells % (Manual) Nucleated RBC % 0 Metamyelocytes Hypochromia Platelet Estimate Platelet Comment Polychromasia Poikilocytosis Anisocytosis Microcytosis Macrocytosis Spherocytes Tear Drop Cells Ovalocytes Acanthocytes (Spur) PT with INR INR PTT (Actin FS) Fibrinogen Sodium 134 L Potassium 3.5 Chloride 95 L Carbon Dioxide 14 L Anion Gap 26 H BUN 29 H Creatinine 1.4 H Creat Clearance w eGFR 52.81 Random Glucose 102 Lactic Acid Calcium 6.5 L* Phosphorus 4.5 Magnesium 0.9 L Total Bilirubin 1.0 AST 58 H ALT 37 Alkaline Phosphatase 53 Total Protein 6.4 Albumin 2.9 L Lipase Urine Color Urine Appearance Urine pH Ur Specific [place] Urine Protein Urine Glucose (UA) Urine Ketones Urine Blood Urine Nitrite Urine Bilirubin Urine Urobilinogen Ur Leukocyte Esterase Urine WBC (Auto) Urine RBC (Auto) Ur Epithelial Cells Urine Bacteria Hyaline Casts Urine Mucus Random Vancomycin Opiates Screen Methadone Screen Barbiturate Screen Phencyclidine Screen Ur Amphetamines Screen MDMA (Ecstasy) Screen Benzodiazepines Screen Cocaine Screen U Marijuana (THC) Screen Alcohol, Quantitative 236.1 H Influenza A (Rapid) Influenza B (Rapid) Blood Type Antibody Screen Crossmatch 05/01/18 05/01/18 05/02/18 20:52 20:52 00:00 WBC 1.6 L* RBC 4.43 Hgb 12.4 Hct 36.5 MCV 82.4 MCH 27.9 MCHC 33.9 RDW 17.8 H Plt Count 39 L D MPV 11.0 D Absolute Neuts (auto) Neutrophils % Neutrophils % (Manual) Band Neutrophils % Lymphocytes % Lymphocytes % (Manual) Monocytes % Monocytes % (Manual) Eosinophils % Eosinophils % (Manual) Basophils % Basophils % (Manual) Myelocytes % (Man) Promyelocytes % (Man) Blast Cells % (Manual) Nucleated RBC % Metamyelocytes Hypochromia Platelet Estimate Platelet Comment Polychromasia Poikilocytosis Anisocytosis Microcytosis Macrocytosis Spherocytes Tear Drop Cells Ovalocytes Acanthocytes (Spur) PT with INR INR PTT (Actin FS) Fibrinogen Sodium Potassium Chloride Carbon Dioxide Anion Gap BUN Creatinine Creat Clearance w eGFR Random Glucose Lactic Acid Calcium Phosphorus Magnesium Total Bilirubin AST ALT Alkaline Phosphatase Total Protein Albumin Lipase Urine Color Dkyellow Urine Appearance Cloudy Urine pH 5.0 Ur Specific [place] 1.020 Urine Protein 1+ H D Urine Glucose (UA) Negative Urine Ketones 1+ H Urine Blood 1+ H Urine Nitrite Negative Urine Bilirubin Negative Urine Urobilinogen Negative Ur Leukocyte Esterase Trace Urine WBC (Auto) 3 Urine RBC (Auto) 4 Ur Epithelial Cells Rare Urine Bacteria Rare Hyaline Casts 12 Urine Mucus Rare Random Vancomycin Opiates Screen Negative Methadone Screen Negative Barbiturate Screen Negative Phencyclidine Screen Negative Ur Amphetamines Screen Negative MDMA (Ecstasy) Screen Negative Benzodiazepines Screen Negative Cocaine Screen Negative U Marijuana (THC) Screen Negative Alcohol, Quantitative Influenza A (Rapid) Influenza B (Rapid) Blood Type Antibody Screen Crossmatch 05/02/18 05/02/18 05/02/18 00:00 00:00 00:09 WBC RBC Hgb Hct MCV MCH MCHC RDW Plt Count MPV Absolute Neuts (auto) Neutrophils % Neutrophils % (Manual) Band Neutrophils % Lymphocytes % Lymphocytes % (Manual) Monocytes % Monocytes % (Manual) Eosinophils % Eosinophils % (Manual) Basophils % Basophils % (Manual) Myelocytes % (Man) Promyelocytes % (Man) Blast Cells % (Manual) Nucleated RBC % Metamyelocytes Hypochromia Platelet Estimate Platelet Comment Polychromasia Poikilocytosis Anisocytosis Microcytosis Macrocytosis Spherocytes Tear Drop Cells Ovalocytes Acanthocytes (Spur) PT with INR INR PTT (Actin FS) Fibrinogen Sodium 139 Potassium 2.8 L* Chloride 101 Carbon Dioxide 15 L Anion Gap 23 H BUN 28 H Creatinine 1.1 Creat Clearance w eGFR > 60 Random Glucose 65 L Lactic Acid 9.0 H* Calcium 6.1 L* Phosphorus 3.1 Magnesium 1.3 L Total Bilirubin AST ALT Alkaline Phosphatase Total Protein Albumin Lipase Urine Color Urine Appearance Urine pH Ur Specific [place] Urine Protein Urine Glucose (UA) Urine Ketones Urine Blood Urine Nitrite Urine Bilirubin Urine Urobilinogen Ur Leukocyte Esterase Urine WBC (Auto) Urine RBC (Auto) Ur Epithelial Cells Urine Bacteria Hyaline Casts Urine Mucus Random Vancomycin Opiates Screen Methadone Screen Barbiturate Screen Phencyclidine Screen Ur Amphetamines Screen MDMA (Ecstasy) Screen Benzodiazepines Screen Cocaine Screen U Marijuana (THC) Screen Alcohol, Quantitative Influenza A (Rapid) Negative Influenza B (Rapid) Negative Blood Type Antibody Screen Crossmatch 05/02/18 05/02/18 05/02/18 05:30 05:30 05:30 WBC 2.4 L RBC 4.65 Hgb 12.2 Hct 38.6 MCV 83.1 MCH 26.3 MCHC 31.6 L RDW 18.2 H Plt Count 27 L* D MPV 10.9 Absolute Neuts (auto) 2.1 Neutrophils % 86.1 H Neutrophils % (Manual) Band Neutrophils % Lymphocytes % 5.8 L D Lymphocytes % (Manual) Monocytes % 8.0 D Monocytes % (Manual) Eosinophils % 0.1 D Eosinophils % (Manual) Basophils % 0.0 Basophils % (Manual) Myelocytes % (Man) Promyelocytes % (Man) Blast Cells % (Manual) Nucleated RBC % 0 Metamyelocytes Hypochromia Platelet Estimate Platelet Comment Polychromasia Poikilocytosis Anisocytosis Microcytosis Macrocytosis Spherocytes Tear Drop Cells Ovalocytes Acanthocytes (Spur) PT with INR 18.10 H INR 1.53 H PTT (Actin FS) 36.6 H Fibrinogen Sodium Potassium Chloride Carbon Dioxide Anion Gap BUN Creatinine Creat Clearance w eGFR Random Glucose Lactic Acid Calcium Phosphorus Magnesium Total Bilirubin AST ALT Alkaline Phosphatase Total Protein Albumin Lipase Urine Color Urine Appearance Urine pH Ur Specific [place] Urine Protein Urine Glucose (UA) Urine Ketones Urine Blood Urine Nitrite Urine Bilirubin Urine Urobilinogen Ur Leukocyte Esterase Urine WBC (Auto) Urine RBC (Auto) Ur Epithelial Cells Urine Bacteria Hyaline Casts Urine Mucus Random Vancomycin 9.1 L Opiates Screen Methadone Screen Barbiturate Screen Phencyclidine Screen Ur Amphetamines Screen MDMA (Ecstasy) Screen Benzodiazepines Screen Cocaine Screen U Marijuana (THC) Screen Alcohol, Quantitative Influenza A (Rapid) Influenza B (Rapid) Blood Type Antibody Screen Crossmatch 05/02/18 05/02/18 05/02/18 05:30 05:30 08:35 WBC RBC Hgb Hct MCV MCH MCHC RDW Plt Count MPV Absolute Neuts (auto) Neutrophils % Neutrophils % (Manual) Band Neutrophils % Lymphocytes % Lymphocytes % (Manual) Monocytes % Monocytes % (Manual) Eosinophils % Eosinophils % (Manual) Basophils % Basophils % (Manual) Myelocytes % (Man) Promyelocytes % (Man) Blast Cells % (Manual) Nucleated RBC % Metamyelocytes Hypochromia Platelet Estimate Platelet Comment Polychromasia Poikilocytosis Anisocytosis Microcytosis Macrocytosis Spherocytes Tear Drop Cells Ovalocytes Acanthocytes (Spur) PT with INR INR PTT (Actin FS) Fibrinogen 397.0 Sodium 135 L Potassium 3.2 L Chloride 97 L Carbon Dioxide 19 L Anion Gap 18 H BUN 22 H Creatinine 0.9 Creat Clearance w eGFR > 60 Random Glucose 130 H Lactic Acid 8.3 H* Calcium 6.5 L* Phosphorus 2.8 Magnesium 1.1 L Total Bilirubin 1.3 H AST 106 H ALT 45 Alkaline Phosphatase 43 L Total Protein 5.3 L Albumin 2.4 L Lipase Urine Color Urine Appearance Urine pH Ur Specific [place] Urine Protein Urine Glucose (UA) Urine Ketones Urine Blood Urine Nitrite Urine Bilirubin Urine Urobilinogen Ur Leukocyte Esterase Urine WBC (Auto) Urine RBC (Auto) Ur Epithelial Cells Urine Bacteria Hyaline Casts Urine Mucus Random Vancomycin Opiates Screen Methadone Screen Barbiturate Screen Phencyclidine Screen Ur Amphetamines Screen MDMA (Ecstasy) Screen Benzodiazepines Screen Cocaine Screen U Marijuana (THC) Screen Alcohol, Quantitative Influenza A (Rapid) Influenza B (Rapid) Blood Type Antibody Screen Crossmatch ASSESSMENT/PLAN: Acute GI bleed suspected Variceal in nature ETOH abuse Seizures HTN Anemia Suspected Septic Shock: source unclear Coagulopathy IVF NE to maintain MAP > 65 Strict I & O ABX per ID Follow cultures Normal transfusion thresholds GI evaluation O2 as needed Thiamine MVI Pain control PPI ICU monitoring Dr Davalos Critical care time spent in reviewing chart, evaluating patient and formulating plan - 36 minutes.
[2018-05-02] MEDS: THIAMINE HCL 200 MG/2 ML VIAL IVPB SCH ×2 (13:19→23:36)
[2018-05-02] MEDS ORDERED: METOPROLOL TARTRATE 5 MG/5 ML VIAL IVPUSH ONE (13:23)
[2018-05-02] MEDS ORDERED: MIDAZOLAM HCL 5 MG/1 ML Single Dose Vial ONE (13:47)
--- NOTE | 2018-05-02 13:54 | CONSULT ---
Consultation: REQUESTING PROVIDER: Dr. Lagunas CONSULT REQUEST FOR HEMATOLOGY/ONCOLOGY: We have been asked to medically evaluate this patient for Thrombocytopenia. HISTORY OF PRESENT ILLNESS: Patient unable to provide information due to extreme agitation. Information obtained from EMR and ICU staff Patient is a 53 year old male with a PMHx of Alcohol abuse, seizure disorder ( likely alcohol related), Iron deficiency anemia, esophageal varices, erosive esophagitis who presented to the ED for hematemesis after drinking one pint of Vodka. Patient reported 5-6 episodes of hematemisis associated with diffuse abdominal pain, headaches, back pain and weakness. Patient admitted multiple times for alcohol intoxication and withdrawal. Had EGD on 06/2017 and was found to have Erosive gastritis and Dieulafoy lesion In the ED, patient was found to be hypotensive, tachycardic with leukopenia and thrombocytopenia. PMHx: Alcohol abuse, seizure disorder (likely alcohol related), Iron deficiency anemia, esophageal varices, erosive esophagitis PSHx: None Social Hx: Heavy alcohol use, vodka and beer Marijuana use Denies cigarette use Medications: None Allergies: NKDA REVIEW OF SYSTEMS: Unable to obtain PHYSICAL EXAMINATION Vital Signs Temperature 99.0 F 05/02/18 10:00 Pulse Rate 166 H 05/02/18 13:37 Respiratory Rate 31 H 05/02/18 12:00 Blood Pressure 122/84 05/02/18 13:37 O2 Sat by Pulse Oximetry (%) 89 L 05/01/18 21:29 GENERAL: Agitated and diaphoretic EYES: PERRL ENT: Unable to assess LUNGS: Crackles throughout lung bases bilaterally. No accessory muscle use HEART: Tachycardic with regular rhythm, normal S1 and S2 without murmur, rub or gallop. ABDOMEN: Soft, nontender, not distended, normoactive bowel sounds, no guarding, no rebound, no masses. EXTREMITIES: 2+ pulses, warm, well-perfused. No calf tenderness. No peripheral edema. NEUROLOGICAL: Unable to assess as patient is uncooperative SKIN: Diaphoretic Laboratory Results 05/02/18 05:30 05/02/18 05:30 05/02/18 05/02/18 05/02/18 05:30 05:30 05:30 INR 1.53 H PTT (Actin FS) 36.6 H Lactic Acid 8.3 H* Calcium 6.5 L* Magnesium 1.1 L Total Bilirubin 1.3 H AST 106 H Alkaline Phosphatase 43 L Total Protein 5.3 L Albumin 2.4 L Active Medications Generic Name Dose Route Start Last Admin Trade Name Hemant PRN Reason Stop Dose Admin Acetaminophen 1,000 mg 05/02/18 07:40 05/02/18 07:50 Ofirmev Injection - IVPB 1,000 mg Q6H PRN Administration PAIN OR FEVER Chlorhexidine Gluconate 1 applic 05/01/18 22:00 05/01/18 23:40 Hibiclens For Decolonization - TP 1 applic HS ALPA Administration Octreotide Acetate 1,200 mcg/ 500 mls @ 20.83 mls/hr 05/01/18 15:00 05/01/18 16:42 Dextrose IVPB 20.83 mls/hr ASDIR ALPA Administration 50 MCG/HR Pantoprazole Sodium 80 mg/ 100 mls @ 10 mls/hr 05/01/18 17:00 05/02/18 04:12 Sodium Chloride IVPB 10 mls/hr Q10H ALPA Administration 8 MG/HR Piperacillin Sod/Tazobactam 50 mls @ 100 mls/hr 05/01/18 21:45 05/02/18 08:59 Sod 3.375 gm/ Dextrose IVPB 100 mls/hr Q6H-IV ALPA Administration Protocol Norepinephrine Bitartrate 8, 500 mls @ 18.75 mls/hr 05/02/18 06:30 05/01/18 23:30 000 mcg/ Dextrose IV 10 mcg/min TITR ALPA 37.5 mls/hr Administration Protocol 5 MCG/MIN Dextrose/Sodium Chloride 20 meq in 1,000 mls @ 100 mls/hr 05/02/18 10:45 09/14 11:47 Dextrose 5%-Normal Saline+20 Meq Kcl - IV 100 mls/hr ASDIR ALPA Administration Lorazepam 2 mg 05/01/18 19:18 05/02/18 13:06 Ativan Injection - IVPUSH 2 mg Q4H PRN Administration ANXIETY Metoclopramide HCl 10 mg 05/01/18 19:00 05/02/18 09:05 Reglan Injection - IVPB 10 mg Q8H-IV ALPA Administration Midazolam HCl 4 mg 05/02/18 13:47 Versed - IVPUSH 05/02/18 13:48 ONCE ONE Morphine Sulfate 4 mg 12/03/18 16:35 Morphine Sulfate IVPUSH Q6H PRN PAIN LEVEL 7 - 10 Mupirocin 1 applic 05/01/18 22:00 05/02/18 09:06 Bactroban Ointment (For Decolonization) - NS 05/06/18 21:59 1 applic BID ALPA Administration Thiamine HCl 500 mg 05/02/18 14:00 05/02/18 13:19 Vitamin B1 Injection - IVPB 500 mg TID ALPA Administration ASSESSMENT/PLAN: Patient is a 53 year old male who presented for hematesis and was found to have DT's, leukopenia and thrombocytopenia. We were consulted for further monitoring and management. Problem List: Thrombocytopenia Leukopenia Iron deficiency anemia Coagulopathy Suspected Septic Shock- Unknown source Alcohol abuse Alcohol withdrawal Delirium Tremens Hematemesis- likely upper GI bleed Erosive esophagitis Plan: -Acute problems include thrombocytopenia and coagulopathy, likely related to liver disease, alcohol abuse, and Sepsis of unknown etiology. Will transfuse 2 units of platelets and would like to maintain platelet count at least 80k-100k. Would repeat platelets one hour and 24 hours later after transfusion as we would expect some degree of platelet consumption. -Would give 2 FFP's in an attempt to improve coagulopathy. -Would also give 5mg Vitamin K SQ. -Repeat platelets and coags after infusion -Patient has had microcytic picture in the past consistent with iron deficiency anemia. Will repeat iron studies at this time -Thrombocytopenia dates as far back as 2015, likely alcohol related. Patient now with leukopenia likely from septic shock picture as patient has unknown source of infection at this time. Will send B12, folate, LDH, and Retic Visit type - Emergency Visit Emergency Visit: Yes ED Registration Date: 05/01/18 Care time: The patient presented to the Emergency Department on the above date and was hospitalized for further evaluation of their emergent condition. - New Patient This patient is new to me today: Yes Date on this admission: 05/02/18 - Critical Care Critical Care patient: Yes Total Critical Care Time (in minutes): 45 Critical Care Statement: The care of this patient involved high complexity decision making to prevent further life threatening deterioration of the patient 's condition and/or to evaluate & treat vital organ system(s) failure or risk of failure.
[2018-05-02] MEDS ORDERED: MIDAZOLAM HCL 2 MG/2 ML SINGLE DOSE VIAL IVPUSH ONE ×2 (14:15→14:17)
[2018-05-02] MEDS ORDERED: MIDAZOLAM HCL 2 MG/2 ML SINGLE DOSE VIAL ONE (14:17)
[2018-05-02] MEDS ORDERED: PROPOFOL 1,000,000 MCG/100 ML VIAL ONE (14:33)
[2018-05-02] MEDS ORDERED: MIDAZOLAM 100 MG/100 ML MG IVPB ONE ×2 (14:33→23:40)
[2018-05-02] MEDS ORDERED: MIDAZOLAM HCL 5 MG/1 ML Single Dose Vial IVPUSH ONE (15:00)
--- NOTE | 2018-05-02 15:14 | CON.ID ---
Consult Consult Specialty:: infectious diseases Referred by:: Reason for Consultation:: [email or web address] - History of Present Illness Chief Complaint: intubated History of Present Illness: patient currently intubated history obtained from the charts 53yo m with PMH of GI bleed, EtOH abuse, seizures, HTN, anemia, varicies, presenting to ED with complaints of hematemesis that started earlier today. Pt said he drank 1pt of Vodka this morning and had around 5-6 episodes of hematemisis this morning. He admits to diffuse abdominal pain, headache, back pain, weakness. He denies changes in vision, cp, sob, urinary symptoms, bloody stools. He does not follow up with a primary care doctor. 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 Cardio/Vascular: Yes: HTN Gastrointestinal: Yes: GI Bleed (upper GI bleed confirmed by EGD, shown to have erosive esophagitis) Infectious Disease: Yes: Other (h/o TB treated 2008 per [facility] notes) Psych: Yes: Addictions (alcohol abuse) - Alcohol/Substance Use Hx Alcohol Use: Yes - Smoking History Smoking history: Current every day smoker Have you smoked in the past 12 months: Yes Aproximately how many cigarettes per day: 20 Home Medications - Allergies Allergies/Adverse Reactions: Allergies Allergy/AdvReac Type Severity Reaction Status Date / Time No Known Allergies Allergy Verified 05/01/18 13:35 Review of Systems Unable to obtain ROS, reason: unable to obtain Physical Exam Vital Signs: Vital Signs Temperature 99.0 F 05/02/18 10:00 Pulse Rate 166 H 05/02/18 13:37 Respiratory Rate 31 H 05/02/18 12:00 Blood Pressure 122/84 05/02/18 13:37 O2 Sat by Pulse Oximetry (%) 89 L 05/01/18 21:29 Constitutional: Yes: Well Nourished Eyes: Yes: Conjunctiva Clear Neck: Yes: Supple Cardiovascular: Yes: Regular Rate and Rhythm, Tachycardia Respiratory: Yes: Intubated, Mechanically Ventilated Gastrointestinal: Yes: Soft, Hypoactive Bowel Sounds Musculoskeletal: Yes: WNL Extremities: Yes: WNL Neurological: Yes: Other Psychiatric: Yes: Other Labs: CBC, BMP 05/02/18 05:30 05/02/18 05:30 Imaging - Results Chest X-ray: Report Reviewed, Image Reviewed Assessment/Plan Acute GI bleed suspected Variceal in nature ETOH abuse Seizures HTN Anemia Suspected Septic Shock: source unclear Coagulopathy fevers plan abx started hydration as per icu egd when stable monitor for dts monitor for bleeding close watch for fevers patient probably with aspiration cc 50 min
[2018-05-02] MEDS: MIDAZOLAM 100 MG in SODIUM CHLORIDE 100 ML IVPB SCH (15:15)
[2018-05-02] MEDS: PROPOFOL 1,000,000 MCG/100 ML VIAL IVPB SCH ×2 (15:15→23:55)
--- NOTE | 2018-05-02 15:15 | PROC ---
Intubation - Intubation Reason for Intubation: Respiratory Insufficiency, Airway Protection Time of Intubation: 15:00 Intubation Method: orotracheal Blade used: Glidescope Tube Size (cm): 8.0 Tube position @ lip (cm): 24 Tube position confirmed by: Direct visualization, CO2 detector, Breath sounds Breath Sounds after Intubation: equal Post Intubation Xray: Yes Remarks: NGT placed orotracheally post intubation
[2018-05-02] MEDS ORDERED: PROPOFOL 200 MG/20 ML VIAL IVPUSH ONE (15:17)
[2018-05-02 16:11] LABS: BASO % 0.1 % (0-2.0); EOS % 1.9 % (0-4.5); HEMATOCRIT 31.9 % (35.4-49); LYMPH % 6.4 % (8-40); MCH 28.2 pg (25.7-33.7); MCHC 34.4 g/dl (32.0-35.9); MEAN CELL VOLUME 82.1 fl (80-96); MEAN PLT VOLUME 9.6 fl (7.5-11.1); MONO % 6.5 % (3.8-10.2); NEUT % 85.1 % (42.8-82.8); RBC 3.89 M/mm3 (4.00-5.60); RDW 17.7 % (11.9-15.9); WHITE BLOOD COUNT 2.1 K/mm3 (4.0-10.0)
[2018-05-02 16:17] LABS: PLATELET COUNT 50 K/MM3 (134-434)
--- NOTE | 2018-05-02 16:26 | PN ---
Teaching Attending Note Name of Resident: Silvia Stephens ATTENDING PHYSICIAN STATEMENT I saw and evaluated the patient. I reviewed the resident's note and discussed the case with the resident. I agree with the resident's findings and plan as documented. SUBJECTIVE:Patient seen and examined 53 year old enters with hematemesis, melena, thrombocytopenia (chronic problem) leukopenia . Developed alcoholic withdrawl, presumed sepsis, tachycardia, respiratory failure requiring intubation. Last Vital Signs Temp Pulse Resp BP Pulse Ox 98.4 F 145 H 30 H 108/59 L 89 L 05/02/18 14:00 05/02/18 14:00 05/02/18 14:00 05/02/18 14:00 05/01/18 21:29 HEENT: YOUSIF, EOM Intact Oropharynx:intubated Cor: sinus tach Lungs: diffuse rhonchi Abd: Soft, Normal bowel sounds, No organomegaly Ext:No significant edema Skin: No rashes, Integument intact CBC, BMP 05/02/18 15:35 INR, PTT INR 1.53 (0.83-1.09) H 05/02/18 05:30 Fibrinogen 397.0 mg/dL (238-498) 05/02/18 08:35 Current Medications Generic Name Dose Route Start Last Admin Trade Name Freq PRN Reason Stop Dose Admin Acetaminophen 1,000 mg 05/02/18 07:40 05/02/18 07:50 Ofirmev Injection - IVPB 1,000 mg Q6H PRN Administration PAIN OR FEVER Chlorhexidine Gluconate 1 applic 05/01/18 22:00 05/01/18 23:40 Hibiclens For Decolonization - TP 1 applic HS ALPA Administration Octreotide Acetate 1,200 mcg/ 500 mls @ 20.83 mls/hr 05/01/18 15:00 05/01/18 16:42 Dextrose IVPB 20.83 mls/hr ASDIR ALPA Administration 50 MCG/HR Pantoprazole Sodium 80 mg/ 100 mls @ 10 mls/hr 05/01/18 17:00 05/02/18 04:12 Sodium Chloride IVPB 10 mls/hr Q10H ALPA Administration 8 MG/HR Piperacillin Sod/Tazobactam 50 mls @ 100 mls/hr 05/01/18 21:45 05/02/18 08:59 Sod 3.375 gm/ Dextrose IVPB 100 mls/hr Q6H-IV ALPA Administration Protocol Norepinephrine Bitartrate 8, 500 mls @ 18.75 mls/hr 05/02/18 06:30 05/01/18 23:30 000 mcg/ Dextrose IV 10 mcg/min TITR ALPA 37.5 mls/hr Administration Protocol 5 MCG/MIN Dextrose/Sodium Chloride 20 meq in 1,000 mls @ 100 mls/hr 05/02/18 10:45 09/14 11:47 Dextrose 5%-Normal Saline+20 Meq Kcl - IV 100 mls/hr ASDIR ALPA Administration Midazolam HCl 100 mg/ Sodium 100 mls @ 3 mls/hr 05/02/18 15:15 Chloride IVPB TITR ALPA Protocol 3 MG/HR Propofol 1,000,000 mcg in 100 mls @ 2.177 mls/hr 05/02/18 15:15 Diprivan - IVPB TITR ALPA Protocol 5 MCG/KG/MIN Lorazepam 2 mg 05/01/18 19:18 05/02/18 13:06 Ativan Injection - IVPUSH 2 mg Q4H PRN Administration ANXIETY Metoclopramide HCl 10 mg 05/01/18 19:00 05/02/18 09:05 Reglan Injection - IVPB 10 mg Q8H-IV ALPA Administration Morphine Sulfate 4 mg 05/01/18 16:35 Morphine Sulfate IVPUSH Q6H PRN PAIN LEVEL 7 - 10 Mupirocin 1 applic 05/01/18 22:00 05/02/18 09:06 Bactroban Ointment (For Decolonization) - NS 05/06/18 21:59 1 applic BID ALPA Administration Thiamine HCl 500 mg 05/02/18 14:00 05/02/18 13:19 Vitamin B1 Injection - IVPB 500 mg TID ALPA Administration Impression: Respiratory failure Intubation acute alcohol intoxication alcoholic withdrawl leukopenia -without neutropenia thrombocytopenia HX of erosive esophagitis Coagulopathy and thrombocytopenia from acute toxic effect of alcohol, sepsis, liver disease Currently ANC-1800 and can hold off neupogen. Ideally would like to maintain platelets > 80K-100K and if feasible INR@1.2. 2 FFP and 2 platelets given Vitamin K in addition administered . To monitor. OBJECTIVE: ASSESSMENT AND PLAN:
[2018-05-02 16:39] LABS: ALBUMIN 2.4 g/dl (3.4-5.0); ALK PHOS 39 U/L (45-117); ANION GAP 14 MMOL/L (8-16); BILIRUBIN,TOTAL 3.3 mg/dL (0.2-1); BLOOD UREA NITROGEN 15 mg/dL (7-18); CHLORIDE 102 mmol/L (98-107); CO2 22 mmol/L (21-32); CREATININE 0.9 mg/dL (0.55-1.3); GLUCOSE,RANDOM 134 mg/dL (74-106); MAGNESIUM 1.6 mg/dL (1.8-2.4); POTASSIUM 3.9 mmol/L (3.5-5.1); SGOT/AST 176 U/L (15-37); SGPT/ALT 67 U/L (13-61); SODIUM 137 mmol/L (136-145); TOT PROT 5.2 g/dl (6.4-8.2)
[2018-05-02 16:41] LABS: CALCIUM 6.7 mg/dL (8.5-10.1); PHOSPHOROUS 0.8 mg/dL (2.5-4.9)
--- NOTE | 2018-05-02 16:42 | ECHO ---
Name: DEBRA MATHEWS Exam:Adult Echocardiogram Study Date: 05/02/2018 11:29 AM Age: 53 yrs Height: 66 in Weight: 160 lb BSA: 1.8 m2 MMode/2D Measurements & Calculations IVSd: 0.90 cm Ao root diam: 3.1 cm LVIDd: 4.6 cm LA dimension: 3.0 cm LVIDs: 3.4 cm LVPWd: 0.81 cm EDV(Teich): 99.5 ml TAPSE: 2.8 cm ESV(Teich): 46.4 ml Doppler Measurements & Calculations MV E max micah: 86.4 cm/sec TR max micah: 262.8 cm/sec MV A max micah: 25.7 cm/sec TR max P.6 mmHg MV E/A: 3.4 MV dec time: 0.11 sec Med Peak E' Micha: 17.2 cm/sec Med E/e': 5.0 Lat Peak E' Micah: 17.9 cm/sec Lat E/e': 4.8 Procedure A two-dimensional transthoracic echocardiogram with color flow and Doppler was performed. The patient was in normal sinus rhythm during the exam. Left Ventricle The left ventricular size, thickness and function are normal. Ejection Fraction = 60. Right Ventricle The right ventricle is normal in size and function. Atria Normal left and right atrial size and function. Mitral Valve There is mild mitral annular calcification. There is mild mitral regurgitation. Tricuspid Valve The tricuspid valve is normal in structure and function. There is mild tricuspid regurgitation. Aortic Valve There is mild aortic sclerosis.;. Mild aortic regurgitation. Pulmonic Valve The pulmonic valve is not well visualized. Great Vessels The aortic root is normal size. Normal aortic arch, descending and ascending aorta. Pericardium/Pleura There is no pericardial effusion. Interpretation Summary The left ventricular size, thickness and function are normal Ejection Fraction = 60. The right ventricle is normal in size and function. Normal left and right atrial size and function. There is mild mitral annular calcification. There is mild mitral regurgitation. The tricuspid valve is normal in structure and function. There is mild tricuspid regurgitation. There is mild aortic sclerosis.; Mild aortic regurgitation. The pulmonic valve is not well visualized. The aortic root is normal size. Normal aortic arch, descending and ascending aorta There is no pericardial effusion. Juanpablo Duong 05/02/2018 04:42 PM
[2018-05-02] MEDS: OCTREOTIDE ACETATE 1,200 MCG in DEXTROSE 5%-WATER - 488 ML IVPB SCH (16:49)
--- NOTE | 2018-05-02 17:02 | EKG ---
Test Reason : Blood Pressure : / mmHG Vent. Rate : 147 BPM Atrial Rate : 147 BPM P-R Int : 000 ms QRS Dur : 082 ms QT Int : 290 ms P-R-T Axes : -16 035 056 degrees QTc Int : 453 ms SINUS TACHYCARDIA NONSPECIFIC T WAVE ABNORMALITY ABNORMAL ECG Confirmed by MD SHERYL, SAMUEL ([id number]) on 05/02/2018 5:02:32 PM Referred By: Confirmed By:SAMUEL SAUCEDO MD
--- NOTE | 2018-05-02 17:02 | EKG ---
Test Reason : Blood Pressure : / mmHG Vent. Rate : 140 BPM Atrial Rate : 140 BPM P-R Int : 000 ms QRS Dur : 084 ms QT Int : 302 ms P-R-T Axes : 005 028 040 degrees QTc Int : 461 ms POOR DATA QUALITY, INTERPRETATION MAY BE ADVERSELY AFFECTED SINUS TACHYCARDIA NONSPECIFIC T WAVE ABNORMALITY ABNORMAL ECG Confirmed by MD SHERYL, SAMUEL ([id number]) on 05/02/2018 5:01:58 PM Referred By: Confirmed By:SAMUEL SAUCEDO MD
[2018-05-02 17:03] LABS: ANISOCYTOSIS 1+; MACROCYTOSIS 1+
[2018-05-02 17:04] LABS: PLATELET ESTIMATE DECREASED
[2018-05-02 17:06] LABS: ARTERIAL BLD GAS O2 SATURATION 99.2 % (90-98.9); ARTERIAL BLOOD GAS BASE EXCESS -1.3 meq/l (-2-2); ARTERIAL BLOOD GAS PCO2 31.6 mmHg (35-45); ARTERIAL BLOOD GAS pH 7.45 (7.35-7.45)
[2018-05-02] MEDS ORDERED: SODIUM PHOSPHATE - 40 MM in DEXTROSE 5%-WATER - 250 ML IVPB ONE (17:15)
[2018-05-02] MEDS ORDERED: SODIUM PHOSPHATE - 30 MM in DEXTROSE 5%-WATER - 250 ML IVPB ONE (17:15)
--- NOTE | 2018-05-02 18:23 | PN ---
Progress Note, Physician History of Present Illness: intubated and sedated on pressors - Current Medication List Current Medications: Active Medications Acetaminophen (Ofirmev Injection -) 1,000 mg IVPB Q6H PRN PRN Reason: PAIN OR FEVER Last Admin: 05/02/18 07:50 Dose: 1,000 mg Chlorhexidine Gluconate (Hibiclens For Decolonization -) 1 applic TP HS ALPA Last Admin: 05/01/18 23:40 Dose: 1 applic Octreotide Acetate 1,200 mcg/ (Dextrose) 500 mls @ 20.83 mls/hr IVPB ASDIR ALPA Last Admin: 05/02/18 16:49 Dose: 20.83 mls/hr Pantoprazole Sodium 80 mg/ (Sodium Chloride) 100 mls @ 10 mls/hr IVPB Q10H ALPA Last Admin: 05/02/18 16:49 Dose: 10 mls/hr Piperacillin Sod/Tazobactam (Sod 3.375 gm/ Dextrose) 50 mls @ 100 mls/hr IVPB Q6H-IV ALPA; Protocol Last Admin: 05/02/18 16:50 Dose: 100 mls/hr Norepinephrine Bitartrate 8, (000 mcg/ Dextrose) 500 mls @ 18.75 mls/hr IV TITR ALPA; Protocol Last Admin: 05/01/18 23:30 Dose: 10 mcg/min, 37.5 mls/hr Dextrose/Sodium Chloride (Dextrose 5%-Normal Saline+20 Meq Kcl -) 20 meq in 1, 000 mls @ 100 mls/hr IV ASDIR ALPA Last Admin: 05/02/18 11:47 Dose: 100 mls/hr Midazolam HCl 100 mg/ Sodium (Chloride) 100 mls @ 3 mls/hr IVPB TITR ALPA; Protocol Last Admin: 05/02/18 15:15 Dose: 3 mg/hr, 3 mls/hr Propofol (Diprivan -) 1,000,000 mcg in 100 mls @ 2.177 mls/hr IVPB TITR ALPA; Protocol Last Admin: 05/02/18 15:15 Dose: 20 mcg/kg/min, 8.709 mls/hr Sodium Phosphate 40 mm/ (Dextrose) 263.3333 mls @ 65.833 mls/hr IVPB ONCE ONE Stop: 05/02/18 21:14 Last Admin: 05/02/18 17:27 Dose: 65.833 mls/hr Lorazepam (Ativan Injection -) 2 mg IVPUSH Q4H PRN PRN Reason: ANXIETY Last Admin: 05/02/18 13:06 Dose: 2 mg Metoclopramide HCl (Reglan Injection -) 10 mg IVPB Q8H-IV ALPA Last Admin: 05/02/18 17:29 Dose: 10 mg Morphine Sulfate (Morphine Sulfate) 4 mg IVPUSH Q6H PRN PRN Reason: PAIN LEVEL 7 - 10 Mupirocin (Bactroban Ointment (For Decolonization) -) 1 applic NS BID [facility] Stop: 05/06/18 21:59 Last Admin: 05/02/18 09:06 Dose: 1 applic Thiamine HCl (Vitamin B1 Injection -) 500 mg IVPB TID [facility] Last Admin: 05/02/18 13:19 Dose: 500 mg - Objective Vital Signs: Vital Signs Temperature 100 F H 05/02/18 18:00 Pulse Rate 125 H 05/02/18 18:00 Respiratory Rate 20 05/02/18 18:00 Blood Pressure 86/61 L 05/02/18 18:00 O2 Sat by Pulse Oximetry (%) 89 L 05/01/18 21:29 Constitutional: Yes: No Distress HENT: Yes: Atraumatic Neck: Yes: Supple Cardiovascular: Yes: Regular Rate and Rhythm Respiratory: Yes: Rhonchi Gastrointestinal: Yes: Normal Bowel Sounds Extremities: Yes: WNL Edema: No Peripheral Pulses WNL: Yes Neurological: Yes: Other (intubated and sedated) Labs: CBC, BMP 05/02/18 15:35 05/02/18 15:35 INR, PTT INR 1.53 (0.83-1.09) H 05/02/18 05:30 Fibrinogen 397.0 mg/dL (238-498) 05/02/18 08:35 Problem List - Problems (1) Hematemesis Assessment/Plan: few vomitting with blood monitor intubated now Code(s): K92.0 - HEMATEMESIS Qualifiers: Nausea presence: unspecified Qualified Code(s): K92.0 - Hematemesis (2) GI bleed Code(s): K92.2 - GASTROINTESTINAL HEMORRHAGE, UNSPECIFIED Qualifiers: GI bleed type/associated pathology: gastrointestinal hemorrhage with hematemesis Qualified Code(s): K92.0 - Hematemesis (3) Alcohol use disorder Assessment/Plan: intubated now Code(s): KNG3417 - (4) Sepsis Assessment/Plan: cxs sent Code(s): A41.9 - SEPSIS, UNSPECIFIED ORGANISM Assessment/Plan cc time 35 min
[2018-05-02 18:43] LABS: INR 1.69 (0.83-1.09)
[2018-05-02 18:45] LABS: ACTIVATED PTT 38.5 SECONDS (25.2-36.5)
[2018-05-02] MEDS ORDERED: chlordiazePOXIDE HCL 25 MG CAPSULE PO PRN (21:21)
[2018-05-02] MEDS ORDERED: LORazepam 2 MG/ML SDV VIAL IVPUSH PRN (23:18)
[2018-05-02] MEDS: chlordiazePOXIDE HCL 25 MG CAPSULE PO SCH (23:36)
[2018-05-02] MEDS: CHLORHEXIDINE GLUCONATE 4% CLEANSER FOR DECOLONIZATION TP SCH (23:36)
[2018-05-03] MEDS: ACETAMINOPHEN 1000 MG/100 ML VIAL (NON FORMULARY) IVPB PRN (00:08)
[2018-05-03 00:20] LABS: BASO % 0.1 % (0-2.0); EOS % 0.7 % (0-4.5); HEMATOCRIT 30.2 % (35.4-49); HEMOGLOBIN 10.6 GM/dL (11.7-16.9); LYMPH % 8.3 % (8-40); MCH 28.7 pg (25.7-33.7); MCHC 35.1 g/dl (32.0-35.9); MEAN CELL VOLUME 81.7 fl (80-96); MEAN PLT VOLUME 9.4 fl (7.5-11.1); MONO % 4.3 % (3.8-10.2); NEUT % 86.6 % (42.8-82.8); PLATELET COUNT 41 K/MM3 (134-434); RBC 3.69 M/mm3 (4.00-5.60); RDW 17.8 % (11.9-15.9); WHITE BLOOD COUNT 3.3 K/mm3 (4.0-10.0)
[2018-05-03 00:50] LABS: ALBUMIN 2.2 g/dl (3.4-5.0); ALK PHOS 39 U/L (45-117); ANION GAP 13 MMOL/L (8-16); BILIRUBIN,TOTAL 4.8 mg/dL (0.2-1); BLOOD UREA NITROGEN 15 mg/dL (7-18); CHLORIDE 101 mmol/L (98-107); CO2 25 mmol/L (21-32); CREATININE 0.8 mg/dL (0.55-1.3); GLUCOSE,RANDOM 105 mg/dL (74-106); PHOSPHOROUS 2.5 mg/dL (2.5-4.9); POTASSIUM 3.3 mmol/L (3.5-5.1); SGOT/AST 177 U/L (15-37); SGPT/ALT 68 U/L (13-61); SODIUM 138 mmol/L (136-145); TOT PROT 5.1 g/dl (6.4-8.2)
[2018-05-03 00:51] LABS: CALCIUM 6.6 mg/dL (8.5-10.1)
[2018-05-03] MEDS ORDERED: LACTATED RINGERS SOLUTION 1000 ML INFUS.BAG IV ONE (00:57)
[2018-05-03 01:02] LABS: PLATELET ESTIMATE DECREASED
[2018-05-03] MEDS ORDERED: DEXTROSE 5%-WATER - 50 ML IVPB ONE ×4 (02:06→21:31)
[2018-05-03] MEDS ORDERED: PIPERACILLIN/TAZOBACTAM 3.375 GM VIAL IVPB ONE ×4 (02:06→21:30)
[2018-05-03] MEDS: PIPERACILLIN/TAZOB 3.375 GM 3.375 GM in DEXTROSE 5%-WATER - 50 ML IVPB SCH ×4 (02:21→21:46)
[2018-05-03] MEDS: METOCLOPRAMIDE HCL INJECTION 10 MG/2 ML VIAL IVPB SCH ×3 (02:21→17:18)
[2018-05-03] MEDS: POTASSIUM CHLORIDE 20 MEQ PREMIX IVPB 100 ML IVPB SCH ×2 (02:21→04:31)
[2018-05-03 05:59] LABS: BASO % 0.1 % (0-2.0); EOS % 0.3 % (0-4.5); HEMATOCRIT 32.2 % (35.4-49); HEMOGLOBIN 10.5 GM/dL (11.7-16.9); LYMPH % 7.6 % (8-40); MCH 27.3 pg (25.7-33.7); MCHC 32.7 g/dl (32.0-35.9); MEAN CELL VOLUME 83.4 fl (80-96); MEAN PLT VOLUME 9.4 fl (7.5-11.1); MONO % 2.8 % (3.8-10.2); NEUT % 89.2 % (42.8-82.8); RBC 3.86 M/mm3 (4.00-5.60); WHITE BLOOD COUNT 4.8 K/mm3 (4.0-10.0)
[2018-05-03 06:04] LABS: PLATELET COUNT 27 K/MM3 (134-434)
[2018-05-03 06:12] LABS: INR 1.7 (0.83-1.09); PROTHROMBIN TIME (PATIENT) 20.2 SEC (9.7-13.0)
[2018-05-03 06:14] LABS: ACTIVATED PTT 40.5 SECONDS (25.2-36.5)
[2018-05-03] MEDS ORDERED: MIDAZOLAM 100 MG/100 ML MG IVPB ONE ×3 (06:25→21:32)
[2018-05-03 06:30] LABS: ANISOCYTOSIS 1+; PLATELET ESTIMATE DECREASED
[2018-05-03] MEDS: THIAMINE HCL 200 MG/2 ML VIAL IVPB SCH ×3 (06:31→21:46)
[2018-05-03] MEDS: chlordiazePOXIDE HCL 25 MG CAPSULE PO SCH (06:31)
[2018-05-03] MEDS: MIDAZOLAM 100 MG in SODIUM CHLORIDE 100 ML IVPB SCH ×3 (06:32→23:00)
[2018-05-03 06:33] LABS: ALBUMIN 2.1 g/dl (3.4-5.0); ALK PHOS 42 U/L (45-117); ANION GAP 9 MMOL/L (8-16); BILIRUBIN,TOTAL 4.4 mg/dL (0.2-1); BLOOD UREA NITROGEN 12 mg/dL (7-18); CHLORIDE 101 mmol/L (98-107); CO2 27 mmol/L (21-32); CREATININE 0.7 mg/dL (0.55-1.3); GLUCOSE,RANDOM 154 mg/dL (74-106); LDH 327 U/L (87-246); PHOSPHOROUS 1.6 mg/dL (2.5-4.9); POTASSIUM 3.9 mmol/L (3.5-5.1); SGOT/AST 163 U/L (15-37); SGPT/ALT 63 U/L (13-61); SODIUM 137 mmol/L (136-145)
[2018-05-03 06:39] LABS: CALCIUM 6.7 mg/dL (8.5-10.1)
[2018-05-03] MEDS: NOREPINEPHRINE BITARTRATE 8,000 MCG in DEXTROSE 5%-WATER - 492 ML IV SCH ×2 (07:00→19:54)
[2018-05-03 07:27] LABS: ARTERIAL BLD GAS O2 SATURATION 95.5 % (90-98.9); ARTERIAL BLOOD GAS BASE EXCESS 0.5 meq/l (-2-2); ARTERIAL BLOOD GAS PCO2 39.3 mmHg (35-45); ARTERIAL BLOOD GAS PO2 77.4 mmHg (80-100); ARTERIAL BLOOD GAS pH 7.41 (7.35-7.45)
[2018-05-03 07:42] LABS: ALLENS TEST POSITIVE
[2018-05-03] MEDS ORDERED: CALCIUM GLUCONATE 10% - 1,000 MG/10 ML VIAL IVPB ONE (09:00)
[2018-05-03] MEDS ORDERED: SODIUM PHOSPHATE - 30 MM in DEXTROSE 5%-WATER - 250 ML IVPB ONE (09:00)
[2018-05-03] MEDS: PANTOPRAZOLE SODIUM 80 MG in SODIUM CHLORIDE 100 ML IVPB SCH ×2 (10:03→19:30)
[2018-05-03] MEDS: MUPIROCIN 2% TOPICAL OINTMENT FOR DECOLONIZATION NS SCH ×2 (10:12→21:46)
[2018-05-03] MEDS ORDERED: PHYTONADIONE 10 MG/1 ML AMP SQ ONE (10:39)
[2018-05-03] MEDS: D5-NS + 20 MEQ KCL - 20 MEQ/1,000 ML INFUS.BAG IV SCH (10:45)
[2018-05-03] MEDS ORDERED: fentaNYL CITRATE 250 MCG/5 ML VIAL ONE (10:59)
[2018-05-03] MEDS: FENTANYL INJECTION 500 MCG in DEXTROSE 5%-WATER - 90 ML IVPB SCH (11:02)
--- NOTE | 2018-05-03 11:20 | PN ---
Progress Note, Physician History of Present Illness: Sedated and intubated on pressor support, too unstable for EGD. - Current Medication List Current Medications: Active Medications Albuterol/Ipratropium (Duoneb -) 1 amp NEB RQID ALPA Chlordiazepoxide HCl (Librium -) 25 mg PO Q4H PRN PRN Reason: WITHDRAWAL(CONT SUBST) Stop: 05/05/18 21:20 Last Admin: 05/02/18 22:06 Dose: 25 mg Chlorhexidine Gluconate (Hibiclens For Decolonization -) 1 applic TP HS ALPA Last Admin: 05/02/18 23:36 Dose: 1 applic Octreotide Acetate 1,200 mcg/ (Dextrose) 500 mls @ 20.83 mls/hr IVPB ASDIR ALPA Last Admin: 05/02/18 16:49 Dose: 20.83 mls/hr Pantoprazole Sodium 80 mg/ (Sodium Chloride) 100 mls @ 10 mls/hr IVPB Q10H ALPA Last Admin: 05/03/18 10:03 Dose: 10 mls/hr Piperacillin Sod/Tazobactam (Sod 3.375 gm/ Dextrose) 50 mls @ 100 mls/hr IVPB Q6H-IV ALPA; Protocol Last Admin: 05/03/18 10:04 Dose: 100 mls/hr Norepinephrine Bitartrate 8, (000 mcg/ Dextrose) 500 mls @ 18.75 mls/hr IV TITR ALPA; Protocol Last Titration: 05/03/18 10:46 Dose: 15 mcg/min, 56.25 mls/hr Dextrose/Sodium Chloride (Dextrose 5%-Normal Saline+20 Meq Kcl -) 20 meq in 1, 000 mls @ 100 mls/hr IV ASDIR ALPA Last Admin: 05/03/18 10:45 Dose: 100 mls/hr Midazolam HCl 100 mg/ Sodium (Chloride) 100 mls @ 3 mls/hr IVPB TITR ALPA; Protocol Last Admin: 05/03/18 06:32 Dose: 15 mg/hr, 15 mls/hr Propofol (Diprivan -) 1,000,000 mcg in 100 mls @ 2.177 mls/hr IVPB TITR ALPA; Protocol Last Titration: 05/03/18 07:00 Dose: 30 mcg/kg/min, 13.064 mls/hr Sodium Phosphate 30 mm/ (Dextrose) 260 mls @ 65 mls/hr IVPB ONCE ONE Stop: 05/03/18 12:59 Last Admin: 05/03/18 10:03 Dose: 65 mls/hr Fentanyl 500 mcg/ Dextrose 100 mls @ 5 mls/hr IVPB TITR ALPA; Protocol Last Admin: 05/03/18 11:02 Dose: 25 mcg/hr, 5 mls/hr Lorazepam (Ativan Injection -) 4 mg IVPUSH Q1H PRN PRN Reason: AGITATION Metoclopramide HCl (Reglan Injection -) 10 mg IVPB Q8H-IV ALPA Last Admin: 05/03/18 10:40 Dose: 10 mg Morphine Sulfate (Morphine Sulfate) 4 mg IVPUSH Q6H PRN PRN Reason: PAIN LEVEL 7 - 10 Mupirocin (Bactroban Ointment (For Decolonization) -) 1 applic NS BID ALPA Stop: 05/06/18 21:59 Last Admin: 05/03/18 10:12 Dose: 1 applic Thiamine HCl (Vitamin B1 Injection -) 500 mg IVPB TID [facility] Last Admin: 05/03/18 06:31 Dose: 500 mg - Objective Vital Signs: Vital Signs Temperature 100.7 F H 05/03/18 10:00 Pulse Rate 122 H 05/03/18 10:46 Respiratory Rate 30 H 05/03/18 11:06 Blood Pressure 100/77 05/03/18 10:46 O2 Sat by Pulse Oximetry (%) 98 05/03/18 08:26 Constitutional: Yes: No Distress, Calm, Thin Neck: Yes: Supple Cardiovascular: Yes: Regular Rate and Rhythm Respiratory: Yes: Intubated, Mechanically Ventilated Gastrointestinal: Yes: Soft, Hypoactive Bowel Sounds Edema: No Labs: CBC, BMP 05/03/18 05:15 05/03/18 05:15 INR, PTT INR 1.70 (0.83-1.09) H 05/03/18 05:15 Fibrinogen 386.0 mg/dL (238-498) 05/03/18 05:15 - ....Imaging Chest X-ray: Report Reviewed (Worsening left pleural, pulmonary changes) EKG: Report Reviewed (Tele: SR) Problem List - Problems (1) GI bleed Code(s): K92.2 - GASTROINTESTINAL HEMORRHAGE, UNSPECIFIED Qualifiers: GI bleed type/associated pathology: gastrointestinal hemorrhage with hematemesis Qualified Code(s): K92.0 - Hematemesis (2) Septic shock Code(s): A41.9 - SEPSIS, UNSPECIFIED ORGANISM; R65.21 - SEVERE SEPSIS WITH SEPTIC SHOCK (3) Erosive esophagitis Code(s): K22.10 - ULCER OF ESOPHAGUS WITHOUT BLEEDING (4) Hematemesis Code(s): K92.0 - HEMATEMESIS Qualifiers: Nausea presence: unspecified Qualified Code(s): K92.0 - Hematemesis (5) Seizure Code(s): R56.9 - UNSPECIFIED CONVULSIONS (6) Thrombocytopenia Code(s): D69.6 - THROMBOCYTOPENIA, UNSPECIFIED (7) Alcohol abuse Code(s): F10.10 - ALCOHOL ABUSE, UNCOMPLICATED (8) Jessica-Gimenez tear Code(s): K22.6 - GASTRO-ESOPHAGEAL LACERATION-HEMORRHAGE SYNDROME (9) UGIB (upper gastrointestinal bleed) Code(s): K92.2 - GASTROINTESTINAL HEMORRHAGE, UNSPECIFIED (10) Hyperlipidemia Code(s): E78.5 - HYPERLIPIDEMIA, UNSPECIFIED Qualifiers: Hyperlipidemia type: pure hypercholesterolemia Qualified Code(s): E78.00 - Pure hypercholesterolemia, unspecified; E78.0 - Pure hypercholesterolemia (11) Acute respiratory failure Code(s): J96.00 - ACUTE RESPIRATORY FAILURE, UNSP W HYPOXIA OR HYPERCAPNIA Qualifiers: Respiratory failure complication: hypoxia Qualified Code(s): J96.01 - Acute respiratory failure with hypoxia Assessment/Plan 05/02/2018 Echo: Normal LV and RV size and fxn, LVEF 50%, mild MR, TR, AR 1. Acute hypoxic respiratory failure 2. Hypotension and fever c/w septic shock, suspect aspiration PNA 2. Acute UGI bleed with history of erosive esophagitis and varices 3. ETOH abuse 4. Leukopenia, coagulopathy and thrombocytopenia due to alcohol, sepsis, liver disease 5. Seizure d/o, ? ETOH related 6. Sinus tachycardia due to above PLAN: 1. Continue current management as per critical care team. Continue pressor support to maintain MAP > 65 2. Broad spectrum antibiotic coverage per C&S 4. Monitor CBC (WBC and Platelet), INR and transfuse as needed. 5. EGD once hemodynamically stable, PPI, Octreotide, vitamin repletion 6. Ideally would like to maintain platelets > 80K-100K and if feasible INR@1.2.
[2018-05-03] MEDS: ALBUTEROL SO4 2.5/IPRATROPIUM 0.5 INH SOL 3 ML VIAL.NEB. NEB SCH ×3 (12:00→20:18)
--- NOTE | 2018-05-03 13:05 | PN ---
Teaching Attending Note Name of Resident: Dre Martinez ATTENDING PHYSICIAN STATEMENT I saw and evaluated the patient. I reviewed the resident's note and discussed the case with the resident. I agree with the resident's findings and plan as documented. SUBJECTIVE: Pt seen and examined in the ICU. Remains intubated, sedated on levophed gtt. OBJECTIVE: Vital Signs Period Temp Pulse Resp BP Sys/Boykin Pulse Ox Last 24 Hr 98.4 F-101.9 F 109-166 18-36 70-128/7-84 98-100 Intake & Output 04/30/18 05/01/18 05/02/18 05/03/18 23:59 23:59 23:59 23:59 Intake Total 3340 86716 4019 Output Total 700 5175 Balance 2640 4890 4019 Weight 72.575 kg 72.575 kg 85.8 kg Gen: intubated, sedated, tachypneic Heart: tachycardic, regular Lung: bilateral rhonchi Abd: soft, nontender Ext: + edema CBC, BMP 05/03/18 05:15 05/03/18 05:15 Active Medications Albuterol/Ipratropium (Duoneb -) 1 amp NEB RQID ALPA Last Admin: 05/03/18 12:00 Dose: 1 amp Chlordiazepoxide HCl (Librium -) 25 mg PO Q4H PRN PRN Reason: WITHDRAWAL(CONT SUBST) Stop: 05/05/18 21:20 Last Admin: 05/02/18 22:06 Dose: 25 mg Chlorhexidine Gluconate (Hibiclens For Decolonization -) 1 applic TP HS [facility] Last Admin: 05/02/18 23:36 Dose: 1 applic Octreotide Acetate 1,200 mcg/ (Dextrose) 500 mls @ 20.83 mls/hr IVPB ASDIR ALPA Last Admin: 05/02/18 16:49 Dose: 20.83 mls/hr Pantoprazole Sodium 80 mg/ (Sodium Chloride) 100 mls @ 10 mls/hr IVPB Q10H ALPA Last Admin: 05/03/18 10:03 Dose: 10 mls/hr Piperacillin Sod/Tazobactam (Sod 3.375 gm/ Dextrose) 50 mls @ 100 mls/hr IVPB Q6H-IV ALPA; Protocol Last Admin: 05/03/18 10:04 Dose: 100 mls/hr Norepinephrine Bitartrate 8, (000 mcg/ Dextrose) 500 mls @ 18.75 mls/hr IV TITR ALPA; Protocol Last Titration: 05/03/18 10:46 Dose: 15 mcg/min, 56.25 mls/hr Dextrose/Sodium Chloride (Dextrose 5%-Normal Saline+20 Meq Kcl -) 20 meq in 1, 000 mls @ 100 mls/hr IV ASDIR ALPA Last Admin: 05/03/18 10:45 Dose: 100 mls/hr Midazolam HCl 100 mg/ Sodium (Chloride) 100 mls @ 3 mls/hr IVPB TITR ALPA; Protocol Last Admin: 05/03/18 06:32 Dose: 15 mg/hr, 15 mls/hr Propofol (Diprivan -) 1,000,000 mcg in 100 mls @ 2.177 mls/hr IVPB TITR ALPA; Protocol Last Titration: 05/03/18 07:00 Dose: 30 mcg/kg/min, 13.064 mls/hr Fentanyl 500 mcg/ Dextrose 100 mls @ 5 mls/hr IVPB TITR ALPA; Protocol Last Admin: 05/03/18 11:02 Dose: 25 mcg/hr, 5 mls/hr Lorazepam (Ativan Injection -) 4 mg IVPUSH Q1H PRN PRN Reason: AGITATION Metoclopramide HCl (Reglan Injection -) 10 mg IVPB Q8H-IV ALPA Last Admin: 05/03/18 10:40 Dose: 10 mg Morphine Sulfate (Morphine Sulfate) 4 mg IVPUSH Q6H PRN PRN Reason: PAIN LEVEL 7 - 10 Mupirocin (Bactroban Ointment (For Decolonization) -) 1 applic NS BID [facility] Stop: 05/06/18 21:59 Last Admin: 05/03/18 10:12 Dose: 1 applic Thiamine HCl (Vitamin B1 Injection -) 500 mg IVPB TID ALPA Last Admin: 05/03/18 06:31 Dose: 500 mg ASSESSMENT AND PLAN: Acute Hypoxic Respiratory Failure Pneumonia likely Aspiration Septic Shock GI Bleed r/o Varices Alcohol Abuse/Withdrawal Thrombocytopenia - continue antibiotics - f/u cultures - IVF to keep CVP 8-12 - titrate pressors to maintain MAP >65 - sedate for vent synchrony - continue protonix, octreotide gtts - monitor CBC - transfuse PRBC, platelets as needed - not a candidate for weaning at this time - DVT/GI prophylaxis critical care time spent in reviewing chart, evaluating patient and formulating plan 35 min
--- NOTE | 2018-05-03 13:32 | PN ---
Physical Exam: SUBJECTIVE: Patient seen and examined in the ICU. remains intubated and sedated on propofol and versed. back on levophed but weaning off. EGD and Head CT deferred until pt more stable. still having black stools OBJECTIVE: Vital Signs Period Temp Pulse Resp BP Sys/Boykin Pulse Ox Last 24 Hr 98.4 F-101.9 F 109-166 18-36 70-128/7-84 98-100 GENERAL: intubated sedated HEENT: NCAT, ETT, OGT NECK: supple, R IJ LUNGS: crackles b/l HEART:tachy RR, normal S1 and S2 without m/r/g ABDOMEN: Soft, ND normoactive bowel sounds MUSCULOSKELETAL: No bony deformities or tenderness. UPPER EXTREMITIES: 2+ pulses, warm, well-perfused. No cyanosis. No clubbing. Cap refill <2 seconds. No peripheral edema. LOWER EXTREMITIES: 2+ pulses, warm, well-perfused. No calf tenderness. No peripheral edema. NEUROLOGICAL: intubated sedated +cough reflex SKIN: Warm, dry, normal turgor, no rashes or lesions noted. Laboratory Results - last 24 hr 05/02/18 05/02/18 05/02/18 05:30 15:35 15:35 WBC 2.1 L RBC 3.89 L Hgb 11.0 L Hct 31.9 L D MCV 82.1 MCH 28.2 MCHC 34.4 RDW 17.7 H Plt Count 50 L D MPV 9.6 D Absolute Neuts (auto) 1.8 Total Counted 100 Neutrophils % 85.1 H Neutrophils % (Manual) 40.0 L D 39.0 L Band Neutrophils % 26.0 48.0 Lymphocytes % 6.4 L Lymphocytes % (Manual) 4.0 L D 1.0 L D Monocytes % 6.5 Monocytes % (Manual) 10 D 4 Eosinophils % 1.9 D Eosinophils % (Manual) 0.0 Basophils % 0.1 D Basophils % (Manual) 1.0 D Myelocytes % (Man) 2 D 2 Promyelocytes % (Man) 0 Blast Cells % (Manual) 0 Nucleated RBC % 2 H Metamyelocytes 15 H D 6 H D Hypochromia 0 Toxic Granulation 0 Dohle Bodies 0 Platelet Estimate Decreased Decreased Platelet Comment Present Giant platelets Polychromasia 0 1+ Poikilocytosis 0 Basophilic Stippling 0 Anisocytosis 0 1+ Microcytosis 0 Macrocytosis 0 1+ Spherocytes 0 Sickle Cells 0 Target Cells 0 Tear Drop Cells 0 Ovalocytes 0 Stomatocytes 0 Helmet Cells 0 [place] Bodies 0 [place] Rings 0 Domo Cells 0 Acanthocytes (Spur) 0 Rouleaux 0 Fragmented RBCs 0 Schistocytes 0 Retic Count PT with INR INR PTT (Actin FS) Fibrinogen Anticoagulation Therapy Puncture Site ABG pH ABG pCO2 at Pt Temp ABG pO2 at Pt Temp ABG HCO3 ABG O2 Sat (Measured) ABG O2 Content ABG Base Excess [place] Test O2 Delivery Device Oxygen Flow Rate Vent Mode Vent Rate Mechanical Rate PEEP Pressure Support Vent Sodium 137 Potassium 3.9 Chloride 102 Carbon Dioxide 22 Anion Gap 14 BUN 15 Creatinine 0.9 Creat Clearance w eGFR > 60 Random Glucose 134 H Lactic Acid Calcium 6.7 L* Phosphorus 0.8 L* Magnesium 1.6 L Ferritin Total Bilirubin 3.3 H AST 176 H ALT 67 H Alkaline Phosphatase 39 L LD Total Total Protein 5.2 L Albumin 2.4 L Vitamin B12 Serum Folate HIV 1&2 Antibody Screen HIV P24 Antigen 05/02/18 05/02/18 05/02/18 16:45 17:45 17:45 WBC RBC Hgb Hct MCV MCH MCHC RDW Plt Count MPV Absolute Neuts (auto) Total Counted Neutrophils % Neutrophils % (Manual) Band Neutrophils % Lymphocytes % Lymphocytes % (Manual) Monocytes % Monocytes % (Manual) Eosinophils % Eosinophils % (Manual) Basophils % Basophils % (Manual) Myelocytes % (Man) Promyelocytes % (Man) Blast Cells % (Manual) Nucleated RBC % Metamyelocytes Hypochromia Toxic Granulation Dohle Bodies Platelet Estimate Platelet Comment Polychromasia Poikilocytosis Basophilic Stippling Anisocytosis Microcytosis Macrocytosis Spherocytes Sickle Cells Target Cells Tear Drop Cells Ovalocytes Stomatocytes Helmet Cells [place] Bodies [place] Rings Domo Cells Acanthocytes (Spur) Rouleaux Fragmented RBCs Schistocytes Retic Count PT with INR 20.00 H INR 1.69 H PTT (Actin FS) 38.5 H Fibrinogen Anticoagulation Therapy No Result Required. Puncture Site No Result Required. ABG pH 7.45 ABG pCO2 at Pt Temp 31.6 L ABG pO2 at Pt Temp 143.0 H D ABG HCO3 21.7 L ABG O2 Sat (Measured) 99.2 H ABG O2 Content 13.1 L ABG Base Excess -1.3 [place] Test No Result Required. O2 Delivery Device No Result Required. Oxygen Flow Rate No Result Required. Vent Mode No Result Required. Vent Rate No Result Required. Mechanical Rate No Result Required. PEEP Pressure Support Vent No Result Required. Sodium Potassium Chloride Carbon Dioxide Anion Gap BUN Creatinine Creat Clearance w eGFR Random Glucose Lactic Acid Calcium Phosphorus Magnesium Ferritin Total Bilirubin AST ALT Alkaline Phosphatase LD Total Total Protein Albumin Vitamin B12 Serum Folate HIV 1&2 Antibody Screen Negative HIV P24 Antigen Negative 05/02/18 05/03/18 05/03/18 19:30 00:07 00:07 WBC 3.3 L RBC 3.69 L Hgb 10.6 L Hct 30.2 L MCV 81.7 MCH 28.7 MCHC 35.1 RDW 17.8 H Plt Count 41 L MPV 9.4 Absolute Neuts (auto) 2.8 Total Counted 100 Neutrophils % 86.6 H Neutrophils % (Manual) 60.0 Band Neutrophils % 20.0 H Lymphocytes % 8.3 D Lymphocytes % (Manual) 6.0 L Monocytes % 4.3 Monocytes % (Manual) 7 Eosinophils % 0.7 Eosinophils % (Manual) Basophils % 0.1 Basophils % (Manual) Myelocytes % (Man) Promyelocytes % (Man) Blast Cells % (Manual) Nucleated RBC % 0 Metamyelocytes 7 H Hypochromia Toxic Granulation Dohle Bodies Platelet Estimate Decreased Platelet Comment No clumping noted Polychromasia Poikilocytosis Basophilic Stippling Anisocytosis Microcytosis Macrocytosis Spherocytes Sickle Cells Target Cells Tear Drop Cells Ovalocytes Stomatocytes Helmet Cells [place] Bodies [place] Rings Domo Cells Acanthocytes (Spur) Rouleaux Fragmented RBCs Schistocytes Retic Count PT with INR INR PTT (Actin FS) Fibrinogen Anticoagulation Therapy Puncture Site ABG pH ABG pCO2 at Pt Temp ABG pO2 at Pt Temp ABG HCO3 ABG O2 Sat (Measured) ABG O2 Content ABG Base Excess [place] Test O2 Delivery Device Oxygen Flow Rate Vent Mode Vent Rate Mechanical Rate PEEP Pressure Support Vent Sodium 138 Potassium 3.3 L Chloride 101 Carbon Dioxide 25 Anion Gap 13 BUN 15 Creatinine 0.8 Creat Clearance w eGFR > 60 Random Glucose 105 Lactic Acid 6.6 H* Calcium 6.6 L* Phosphorus 2.5 Magnesium 2.0 Ferritin Total Bilirubin 4.8 H AST 177 H ALT 68 H Alkaline Phosphatase 39 L LD Total Total Protein 5.1 L Albumin 2.2 L Vitamin B12 Serum Folate HIV 1&2 Antibody Screen HIV P24 Antigen 05/03/18 05/03/18 05/03/18 00:07 05:15 05:15 WBC 4.8 RBC 3.86 L Hgb 10.5 L Hct 32.2 L MCV 83.4 MCH 27.3 MCHC 32.7 RDW 18.0 H Plt Count 27 L* D MPV 9.4 Absolute Neuts (auto) 4.3 Total Counted 100 Neutrophils % 89.2 H Neutrophils % (Manual) 73.0 Band Neutrophils % 12.0 H Lymphocytes % 7.6 L Lymphocytes % (Manual) 8.0 D Monocytes % 2.8 L Monocytes % (Manual) 5 Eosinophils % 0.3 Eosinophils % (Manual) Basophils % 0.1 Basophils % (Manual) Myelocytes % (Man) Promyelocytes % (Man) Blast Cells % (Manual) Nucleated RBC % 0 Metamyelocytes 2 D Hypochromia Toxic Granulation Dohle Bodies Platelet Estimate Decreased Platelet Comment No clumping noted Polychromasia Poikilocytosis Basophilic Stippling Anisocytosis 1+ Microcytosis Macrocytosis Spherocytes Sickle Cells Target Cells Tear Drop Cells Ovalocytes Stomatocytes Helmet Cells [place] Bodies [place] Rings [place] Cells Acanthocytes (Spur) Rouleaux Fragmented RBCs Schistocytes Retic Count PT with INR 20.20 H INR 1.70 H PTT (Actin FS) 40.5 H Fibrinogen Anticoagulation Therapy Puncture Site ABG pH ABG pCO2 at Pt Temp ABG pO2 at Pt Temp ABG HCO3 ABG O2 Sat (Measured) ABG O2 Content ABG Base Excess [place] Test O2 Delivery Device Oxygen Flow Rate Vent Mode Vent Rate Mechanical Rate PEEP Pressure Support Vent Sodium Potassium Chloride Carbon Dioxide Anion Gap BUN Creatinine Creat Clearance w eGFR Random Glucose Lactic Acid 6.2 H* Calcium Phosphorus Magnesium Ferritin Total Bilirubin AST ALT Alkaline Phosphatase LD Total Total Protein Albumin Vitamin B12 Serum Folate HIV 1&2 Antibody Screen HIV P24 Antigen 05/03/18 05/03/18 05/03/18 05:15 05:15 05:15 WBC RBC Hgb Hct MCV MCH MCHC RDW Plt Count MPV Absolute Neuts (auto) Total Counted Neutrophils % Neutrophils % (Manual) Band Neutrophils % Lymphocytes % Lymphocytes % (Manual) Monocytes % Monocytes % (Manual) Eosinophils % Eosinophils % (Manual) Basophils % Basophils % (Manual) Myelocytes % (Man) Promyelocytes % (Man) Blast Cells % (Manual) Nucleated RBC % Metamyelocytes Hypochromia Toxic Granulation Dohle Bodies Platelet Estimate Platelet Comment Polychromasia Poikilocytosis Basophilic Stippling Anisocytosis Microcytosis Macrocytosis Spherocytes Sickle Cells Target Cells Tear Drop Cells Ovalocytes Stomatocytes Helmet Cells [place] Bodies [place] Rings [place] Cells Acanthocytes (Spur) Rouleaux Fragmented RBCs Schistocytes Retic Count 1.19 PT with INR INR PTT (Actin FS) Fibrinogen Anticoagulation Therapy Puncture Site ABG pH ABG pCO2 at Pt Temp ABG pO2 at Pt Temp ABG HCO3 ABG O2 Sat (Measured) ABG O2 Content ABG Base Excess [place] Test O2 Delivery Device Oxygen Flow Rate Vent Mode Vent Rate Mechanical Rate PEEP Pressure Support Vent Sodium 137 Potassium 3.9 Chloride 101 Carbon Dioxide 27 Anion Gap 9 BUN 12 Creatinine 0.7 Creat Clearance w eGFR > 60 Random Glucose 154 H Lactic Acid Calcium 6.7 L* Phosphorus 1.6 L Magnesium 2.0 Ferritin 483.0 H Total Bilirubin 4.4 H AST 163 H ALT 63 H Alkaline Phosphatase 42 L LD Total 327 H Total Protein 5.0 L Albumin 2.1 L Vitamin B12 1670 H Serum Folate 4 HIV 1&2 Antibody Screen HIV P24 Antigen 05/03/18 05/03/18 05/03/18 05:15 05:15 06:25 WBC RBC Hgb Hct MCV MCH MCHC RDW Plt Count MPV Absolute Neuts (auto) Total Counted Neutrophils % Neutrophils % (Manual) Band Neutrophils % Lymphocytes % Lymphocytes % (Manual) Monocytes % Monocytes % (Manual) Eosinophils % Eosinophils % (Manual) Basophils % Basophils % (Manual) Myelocytes % (Man) Promyelocytes % (Man) Blast Cells % (Manual) Nucleated RBC % Metamyelocytes Hypochromia Toxic Granulation Dohle Bodies Platelet Estimate Platelet Comment Polychromasia Poikilocytosis Basophilic Stippling Anisocytosis Microcytosis Macrocytosis Spherocytes Sickle Cells Target Cells Tear Drop Cells Ovalocytes Stomatocytes Helmet Cells [place] Bodies [place] Rings [place] Cells Acanthocytes (Spur) Rouleaux Fragmented RBCs Schistocytes Retic Count PT with INR INR PTT (Actin FS) Fibrinogen 386.0 Anticoagulation Therapy Puncture Site Right radial ABG pH 7.41 ABG pCO2 at Pt Temp 39.3 D ABG pO2 at Pt Temp 77.4 L D ABG HCO3 24.5 ABG O2 Sat (Measured) 95.5 ABG O2 Content 13.8 L ABG Base Excess 0.5 [place] Test Positive O2 Delivery Device A/c Oxygen Flow Rate 50% Vent Mode A/c Vent Rate 14 Mechanical Rate Yes PEEP 5.0 Pressure Support Vent 450 Sodium Potassium Chloride Carbon Dioxide Anion Gap BUN Creatinine Creat Clearance w eGFR Random Glucose Lactic Acid 5.9 H* Calcium Phosphorus Magnesium Ferritin Total Bilirubin AST ALT Alkaline Phosphatase LD Total Total Protein Albumin Vitamin B12 Serum Folate HIV 1&2 Antibody Screen HIV P24 Antigen Active Medications Generic Name Dose Route Start Last Admin Trade Name Freq PRN Reason Stop Dose Admin Albuterol/Ipratropium 1 amp 05/03/18 12:00 05/03/18 12:00 Duoneb - NEB 1 amp RQID ALPA Administration Chlordiazepoxide HCl 25 mg 05/02/18 21:21 05/02/18 22:06 Librium - PO 05/05/18 21:20 25 mg Q4H PRN Administration WITHDRAWAL(CONT SUBST) Chlorhexidine Gluconate 1 applic 05/01/18 22:00 05/02/18 23:36 Hibiclens For Decolonization - TP 1 applic HS ALPA Administration Octreotide Acetate 1,200 mcg/ 500 mls @ 20.83 mls/hr 05/01/18 15:00 05/02/18 16:49 Dextrose IVPB 20.83 mls/hr ASDIR ALPA Administration 50 MCG/HR Pantoprazole Sodium 80 mg/ 100 mls @ 10 mls/hr 05/01/18 17:00 05/03/18 10:03 Sodium Chloride IVPB 10 mls/hr Q10H ALPA Administration 8 MG/HR Piperacillin Sod/Tazobactam 50 mls @ 100 mls/hr 05/01/18 21:45 05/03/18 10:04 Sod 3.375 gm/ Dextrose IVPB 100 mls/hr Q6H-IV ALPA Administration Protocol Norepinephrine Bitartrate 8, 500 mls @ 18.75 mls/hr 05/02/18 06:30 05/03/18 10:46 000 mcg/ Dextrose IV 15 mcg/min TITR ALPA 56.25 mls/hr Titration Protocol 5 MCG/MIN Dextrose/Sodium Chloride 20 meq in 1,000 mls @ 100 mls/hr 05/02/18 10:45 10/14 10:45 Dextrose 5%-Normal Saline+20 Meq Kcl - IV 100 mls/hr ASDIR ALPA Administration Midazolam HCl 100 mg/ Sodium 100 mls @ 3 mls/hr 05/02/18 15:15 05/03/18 06:32 Chloride IVPB 15 mg/hr TITR ALPA 15 mls/hr Administration Protocol 3 MG/HR Propofol 1,000,000 mcg in 100 mls @ 2.177 mls/hr 05/02/18 15:15 05/03/18 07: 00 Diprivan - IVPB 30 mcg/kg/min TITR ALPA 13.064 mls/hr Titration Protocol 5 MCG/KG/MIN Sodium Phosphate 30 mm/ 260 mls @ 65 mls/hr 05/03/18 09:00 05/03/18 10:03 Dextrose IVPB 05/03/18 12:59 65 mls/hr ONCE ONE Administration 30 MM/4 HR Fentanyl 500 mcg/ Dextrose 100 mls @ 5 mls/hr 05/03/18 10:45 05/03/18 11:02 IVPB 25 mcg/hr TITR ALPA 5 mls/hr Administration Protocol 25 MCG/HR Lorazepam 4 mg 05/02/18 23:18 Ativan Injection - IVPUSH Q1H PRN AGITATION Metoclopramide HCl 10 mg 05/01/18 19:00 05/03/18 10:40 Reglan Injection - IVPB 10 mg Q8H-IV ALPA Administration Morphine Sulfate 4 mg 05/01/18 16:35 Morphine Sulfate IVPUSH Q6H PRN PAIN LEVEL 7 - 10 Mupirocin 1 applic 05/01/18 22:00 05/03/18 10:12 Bactroban Ointment (For Decolonization) - NS 05/06/18 21:59 1 applic BID ALPA Administration Thiamine HCl 500 mg 05/02/18 14:00 05/03/18 06:31 Vitamin B1 Injection - IVPB 500 mg TID ALPA Administration ASSESSMENT/PLAN: 53yo m with PMH of GI bleed, EtOH abuse, seizures?, HTN, anemia, varicies, presenting to ICU w/ acute GIB bleed, likely upper and etoh abuse. Now found w/ septic shock unclear etiology on levophed, and in DTs. NEURO DTs 05/02/18, last drink 1pt of Vodka 05/01/18? intubated sedated on propofol and versed gtt start fentanyl gtt, pt breathing rapidly and uncomfortable Utox - neg BAL - 236 s/p banana bag c/w Thiamin 500 tid detox consult seizures? - questionable hx of seizures. was evaluated by Neuro on prior admission in 02/2018. was given keppra but it was stopped as seizure was likely caused by alcohol use. Patient at that time indicated he has always had seizures only in setting of ETOH withdrawl. Pt not having any seizure like activity on this admission. Will cont to monitor. Fall?- Head CT when hemodynamically stable Cardiac/PULM/GI SVT?/sinus tach 07/01 sepsis 05/01/18 - HR was in 170s but unresponsive to adenosine, responded to Lopressor Echo to assess LV/RV and valvular function cardio consult R IJ central line 05/01/18, on levophed gtt titrate pressors to maintain MAP > 65 IVF to keep CVP 8-12 O2 as needed cardiac monitoring not a candidate for weaning at this time sedate for vent synchrony monitor H/H s/p 1 u prbc in ED. transfuse if <7 or significant drop in Hgb c/w active GIB s/p 7-9 L IVF D5 NS 20 K 100cc/hr pain ctl reglan - nausea EKG: sinus tachycardia. no ST changes, Qtc 512 on admission monitor Qtc cxr - worsening L pulm and pleural changes, may be source of infx, CAP vs aspiration PNA elevate head of bed, aspiration precautions FOBT protonix gtt octreotide - hx varices?, may be source of bleed GI consult underwent EGD 07/[address] Hester that revealed severe erosive esophagitis. has had + FOBT in past elevated lactic - trend lactic acid EGD deferred because of Septic shock ID septic shock, unclear etiology, w/ fevers (Tmax 105) and R IJ placement. Currently on levophed and s/p 7-9 L IVF cxr - worsening L pulm and pleural changes, may be source of infx, CAP vs aspiration PNA f/u sputum cx s/p CTX/zosyn in ED ID consult vanc/zosyn UA - 1+ ketones, blood , proteins ucx, bcx, legionella, flu neg HEME Neuropenia and thrombocytopenia likely 2/2 septic shock fibrinogen nl heme consult 2U FFP 05/02/18 plt still low despite 2U plt, will give another 2 u, recheck and give another 2 u prn vit k 10mg sq x1 dose 05/02/18 vit K 5 sq today RENAL Anion Gap acidosis/lactic acidosis w/ multiple lyte abnl consistent w/ ETOH ketoacidosis - hypo K, Mg, Ca, Cl HU- likely pre renal - improving monitor Cr, UOP s/p 7-9 L IVF D5 NS 20 K 100cc/hr yeung FEN D5 NS 20 K 100cc/hr replete prn NPO ppx SCD protonix gtt Dispo: ICU monitoring EGD deferred because of Septic shock Head CT when hemodynamically stable Visit type - Emergency Visit Emergency Visit: Yes ED Registration Date: 05/01/18 Care time: The patient presented to the Emergency Department on the above date and was hospitalized for further evaluation of their emergent condition. - New Patient This patient is new to me today: Yes Date on this admission: 05/03/18 - Critical Care Critical Care patient: Yes Total Critical Care Time (in minutes): 38 Critical Care Statement: The care of this patient involved high complexity decision making to prevent further life threatening deterioration of the patient 's condition and/or to evaluate & treat vital organ system(s) failure or risk of failure.
--- NOTE | 2018-05-03 14:14 | PN ---
Progress Note, Physician History of Present Illness: patient still intubated on versed and profol not stable for egd - Current Medication List Current Medications: Active Medications Albuterol/Ipratropium (Duoneb -) 1 amp NEB RQID ALPA Last Admin: 05/03/18 12:00 Dose: 1 amp Chlorhexidine Gluconate (Hibiclens For Decolonization -) 1 applic TP HS ALPA Last Admin: 05/02/18 23:36 Dose: 1 applic Octreotide Acetate 1,200 mcg/ (Dextrose) 500 mls @ 20.83 mls/hr IVPB ASDIR ALPA Last Admin: 05/02/18 16:49 Dose: 20.83 mls/hr Pantoprazole Sodium 80 mg/ (Sodium Chloride) 100 mls @ 10 mls/hr IVPB Q10H ALPA Last Admin: 05/03/18 10:03 Dose: 10 mls/hr Piperacillin Sod/Tazobactam (Sod 3.375 gm/ Dextrose) 50 mls @ 100 mls/hr IVPB Q6H-IV ALPA; Protocol Last Admin: 05/03/18 10:04 Dose: 100 mls/hr Norepinephrine Bitartrate 8, (000 mcg/ Dextrose) 500 mls @ 18.75 mls/hr IV TITR ALPA; Protocol Last Titration: 05/03/18 10:46 Dose: 15 mcg/min, 56.25 mls/hr Dextrose/Sodium Chloride (Dextrose 5%-Normal Saline+20 Meq Kcl -) 20 meq in 1, 000 mls @ 100 mls/hr IV ASDIR ALPA Last Admin: 05/03/18 10:45 Dose: 100 mls/hr Midazolam HCl 100 mg/ Sodium (Chloride) 100 mls @ 3 mls/hr IVPB TITR ALPA; Protocol Last Admin: 05/03/18 06:32 Dose: 15 mg/hr, 15 mls/hr Propofol (Diprivan -) 1,000,000 mcg in 100 mls @ 2.177 mls/hr IVPB TITR ALPA; Protocol Last Titration: 05/03/18 07:00 Dose: 30 mcg/kg/min, 13.064 mls/hr Fentanyl 500 mcg/ Dextrose 100 mls @ 5 mls/hr IVPB TITR ALPA; Protocol Last Admin: 05/03/18 11:02 Dose: 25 mcg/hr, 5 mls/hr Lorazepam (Ativan Injection -) 4 mg IVPUSH Q1H PRN PRN Reason: AGITATION Metoclopramide HCl (Reglan Injection -) 10 mg IVPB Q8H-IV [facility] Last Admin: 05/03/18 10:40 Dose: 10 mg Morphine Sulfate (Morphine Sulfate) 4 mg IVPUSH Q6H PRN PRN Reason: PAIN LEVEL 7 - 10 Mupirocin (Bactroban Ointment (For Decolonization) -) 1 applic NS BID [facility] Stop: 05/06/18 21:59 Last Admin: 05/03/18 10:12 Dose: 1 applic Thiamine HCl (Vitamin B1 Injection -) 500 mg IVPB TID [facility] Last Admin: 05/03/18 13:56 Dose: 500 mg - Objective Vital Signs: Vital Signs Temperature 101.9 F H 05/03/18 11:42 Pulse Rate 127 H 05/03/18 12:00 Respiratory Rate 28 H 05/03/18 14:09 Blood Pressure 116/77 05/03/18 12:00 O2 Sat by Pulse Oximetry (%) 100 05/03/18 10:00 Constitutional: Yes: Other Cardiovascular: Yes: Regular Rate and Rhythm, Tachycardia Respiratory: Yes: Intubated, Mechanically Ventilated Gastrointestinal: Yes: Normal Bowel Sounds, Soft Musculoskeletal: Yes: WNL Extremities: Yes: WNL Neurological: Yes: Other Labs: CBC, BMP 05/03/18 05:15 05/03/18 05:15 INR, PTT INR 1.70 (0.83-1.09) H 05/03/18 05:15 Fibrinogen 386.0 mg/dL (238-498) 05/03/18 05:15 - ....Imaging Chest X-ray: Report Reviewed, Image Reviewed Assessment/Plan Acute GI bleed suspected Variceal in nature ETOH abuse Seizures HTN Anemia Suspected Septic Shock: source unclear Coagulopathy plan continue abx as per icu egd when stable monitor for dts monitor for bleeding
[2018-05-03] MEDS: OCTREOTIDE ACETATE 1,200 MCG in DEXTROSE 5%-WATER - 488 ML IVPB SCH ×2 (15:00→17:23)
[2018-05-03] MEDS: PROPOFOL 1,000,000 MCG/100 ML VIAL IVPB SCH ×2 (15:45→22:30)
[2018-05-03] MEDS ORDERED: SODIUM CHLORIDE 1,000 ML IV STA ×3 (15:46→17:37)
[2018-05-03] MEDS ORDERED: ACETAMINOPHEN 1000 MG/100 ML VIAL (NON FORMULARY) IVPB ONE (16:00)
[2018-05-03 16:57] LABS: ALBUMIN 2.1 g/dl (3.4-5.0); ALK PHOS 69 U/L (45-117); ANION GAP 10 MMOL/L (8-16); BILIRUBIN,TOTAL 3.7 mg/dL (0.2-1); BLOOD UREA NITROGEN 11 mg/dL (7-18); CHLORIDE 101 mmol/L (98-107); CO2 26 mmol/L (21-32); CREATININE 0.6 mg/dL (0.55-1.3); GLUCOSE,RANDOM 133 mg/dL (74-106); MAGNESIUM 1.8 mg/dL (1.8-2.4); PHOSPHOROUS 1.3 mg/dL (2.5-4.9); POTASSIUM 3.2 mmol/L (3.5-5.1); SGOT/AST 119 U/L (15-37); SGPT/ALT 52 U/L (13-61); SODIUM 137 mmol/L (136-145); TOT PROT 4.8 g/dl (6.4-8.2)
[2018-05-03 17:06] LABS: CALCIUM 6.9 mg/dL (8.5-10.1)
[2018-05-03] MEDS: KCL 10 MEQ IVPB 10 MEQ/100 ML INFUS.BAG IVPB SCH ×3 (17:18→19:54)
--- NOTE | 2018-05-03 18:18 | PN ---
Progress Note, Physician History of Present Illness: intubated and sedated on pressors - Current Medication List Current Medications: Active Medications Acetaminophen (Ofirmev Injection -) 1,000 mg IVPB Q6H PRN PRN Reason: FEVER Albuterol/Ipratropium (Duoneb -) 1 amp NEB RQID ALPA Last Admin: 05/03/18 16:25 Dose: 1 amp Chlorhexidine Gluconate (Hibiclens For Decolonization -) 1 applic TP HS ALPA Last Admin: 05/02/18 23:36 Dose: 1 applic Octreotide Acetate 1,200 mcg/ (Dextrose) 500 mls @ 20.83 mls/hr IVPB ASDIR ALPA Last Admin: 05/03/18 17:23 Dose: 20.83 mls/hr Pantoprazole Sodium 80 mg/ (Sodium Chloride) 100 mls @ 10 mls/hr IVPB Q10H ALPA Last Admin: 05/03/18 10:03 Dose: 10 mls/hr Piperacillin Sod/Tazobactam (Sod 3.375 gm/ Dextrose) 50 mls @ 100 mls/hr IVPB Q6H-IV ALPA; Protocol Last Admin: 05/03/18 15:59 Dose: 100 mls/hr Norepinephrine Bitartrate 8, (000 mcg/ Dextrose) 500 mls @ 18.75 mls/hr IV TITR ALPA; Protocol Last Titration: 05/03/18 10:46 Dose: 15 mcg/min, 56.25 mls/hr Dextrose/Sodium Chloride (Dextrose 5%-Normal Saline+20 Meq Kcl -) 20 meq in 1, 000 mls @ 100 mls/hr IV ASDIR ALPA Last Admin: 05/03/18 10:45 Dose: 100 mls/hr Midazolam HCl 100 mg/ Sodium (Chloride) 100 mls @ 3 mls/hr IVPB TITR ALPA; Protocol Last Admin: 05/03/18 15:45 Dose: 15 mg/hr, 15 mls/hr Propofol (Diprivan -) 1,000,000 mcg in 100 mls @ 2.177 mls/hr IVPB TITR ALPA; Protocol Last Admin: 05/03/18 15:45 Dose: 20 mcg/kg/min, 8.709 mls/hr Fentanyl 500 mcg/ Dextrose 100 mls @ 5 mls/hr IVPB TITR ALPA; Protocol Last Admin: 05/03/18 11:02 Dose: 25 mcg/hr, 5 mls/hr Potassium Chloride (Potassium Chloride 10 Meq Premix Ivpb -) 10 meq in 100 mls @ 100 mls/hr IVPB Q60M [facility] Stop: 05/03/18 20:14 Last Admin: 05/03/18 17:18 Dose: 100 mls/hr Sodium Chloride (Normal Saline -) 1,000 mls @ 1,000 mls/hr IV ASDIR STA Stop: 05/03/18 18:29 Last Admin: 05/03/18 17:39 Dose: 1,000 mls/hr Sodium Chloride (Normal Saline -) 1,000 mls @ 1,000 mls/hr IV ASDIR STA Stop: 05/03/18 18:36 Last Admin: 05/03/18 17:40 Dose: Not Given Lorazepam (Ativan Injection -) 4 mg IVPUSH Q1H PRN PRN Reason: AGITATION Metoclopramide HCl (Reglan Injection -) 10 mg IVPB Q8H-IV [facility] Last Admin: 05/03/18 17:18 Dose: 10 mg Morphine Sulfate (Morphine Sulfate) 4 mg IVPUSH Q6H PRN PRN Reason: PAIN LEVEL 7 - 10 Mupirocin (Bactroban Ointment (For Decolonization) -) 1 applic NS BID [facility] Stop: 05/06/18 21:59 Last Admin: 05/03/18 10:12 Dose: 1 applic Thiamine HCl (Vitamin B1 Injection -) 500 mg IVPB TID [facility] Last Admin: 05/03/18 13:56 Dose: 500 mg - Objective Vital Signs: Vital Signs Temperature 102.3 F H 05/03/18 17:00 Pulse Rate 127 H 05/03/18 17:00 Respiratory Rate 28 H 05/03/18 17:00 Blood Pressure 100/70 05/03/18 17:00 O2 Sat by Pulse Oximetry (%) 100 05/03/18 10:00 Constitutional: Yes: Calm Eyes: Yes: Conjunctiva Clear HENT: Yes: Atraumatic Neck: Yes: Supple Cardiovascular: Yes: Regular Rate and Rhythm Respiratory: Yes: Rhonchi Gastrointestinal: Yes: Normal Bowel Sounds Extremities: Yes: WNL Edema: No Peripheral Pulses WNL: Yes Neurological: Yes: Other (sedated) Labs: CBC, BMP 05/03/18 15:25 INR, PTT INR 1.70 (0.83-1.09) H 05/03/18 05:15 Fibrinogen 386.0 mg/dL (238-498) 05/03/18 05:15 Problem List - Problems (1) Hematemesis Assessment/Plan: no more intubated Code(s): K92.0 - HEMATEMESIS Qualifiers: Nausea presence: unspecified Qualified Code(s): K92.0 - Hematemesis (2) GI bleed Code(s): K92.2 - GASTROINTESTINAL HEMORRHAGE, UNSPECIFIED Qualifiers: GI bleed type/associated pathology: gastrointestinal hemorrhage with hematemesis Qualified Code(s): K92.0 - Hematemesis (3) Alcohol use disorder Assessment/Plan: intubated now Code(s): WOC9306 - (4) Sepsis Assessment/Plan: cxs sent on pressors intubated iv abx Code(s): A41.9 - SEPSIS, UNSPECIFIED ORGANISM (5) Septic shock Assessment/Plan: on pressors iv abx Code(s): A41.9 - SEPSIS, UNSPECIFIED ORGANISM; R65.21 - SEVERE SEPSIS WITH SEPTIC SHOCK Assessment/Plan cc time 35 min
[2018-05-03 18:29] LABS: BASO % 0.2 % (0-2.0); EOS % 0.2 % (0-4.5); LYMPH % 7.6 % (8-40); MCH 28.3 pg (25.7-33.7); MCHC 34.6 g/dl (32.0-35.9); MEAN CELL VOLUME 81.9 fl (80-96); MEAN PLT VOLUME 9.5 fl (7.5-11.1); MONO % 2.9 % (3.8-10.2); NEUT % 89.1 % (42.8-82.8); PLATELET COUNT 53 K/MM3 (134-434); RBC 3.54 M/mm3 (4.00-5.60); RDW 18.4 % (11.9-15.9); WHITE BLOOD COUNT 4.8 K/mm3 (4.0-10.0)
[2018-05-03] MEDS ORDERED: NOREPINEPHRINE BITARTRATE 4 MG/4 ML ML IV ONE (19:08)
--- NOTE | 2018-05-03 19:33 | PN ---
Progress Note (short form) - Note Progress Note: PROGRESS NOTE FOR HEMATOLOGY/ONCOLOGY Patient seen and examined by me at bedside Patient intubated and sedated Transfused 2 units of platelets today Vital Signs Temperature 102.8 F H 05/03/18 18:20 Pulse Rate 113 H 05/03/18 18:20 Respiratory Rate 22 H 05/03/18 18:22 Blood Pressure 101/69 05/03/18 18:20 O2 Sat by Pulse Oximetry (%) 100 05/03/18 10:00 PHYSICAL EXAMINATION: GENERAL: Intubated and sedated ENT: Unable to assess LUNGS: Course breath sounds anteriorly. Intubated HEART: Tachycardic with regular rhythm, normal S1 and S2 without murmur, rub or gallop. ABDOMEN: Soft, nontender, not distended, normoactive bowel sounds EXTREMITIES: 2No peripheral edema. NEUROLOGICAL: Unable to assess as patient is uncooperative Laboratory Tests 05/03/18 15:25 05/03/18 15:25 05/03/18 05/03/18 11:50 15:25 Total Bilirubin 3.7 H AST 119 H ALT 52 Alkaline Phosphatase 69 Total Protein 4.8 L Albumin 2.1 L Stool Occult Blood Positive ASSESSMENT/PLAN: Patient is a 53 year old male who presented for hematesis and was found to have DT's, leukopenia and thrombocytopenia. We were consulted for further monitoring and management. Problem List: Thrombocytopenia Leukopenia Iron deficiency anemia Coagulopathy Suspected Septic Shock- Unknown source Alcohol abuse Alcohol withdrawal Delirium Tremens Hematemesis- likely upper GI bleed Erosive esophagitis Plan: -Acute problems include thrombocytopenia and coagulopathy, likely related to liver disease, alcohol abuse, and Sepsis of unknown etiology. -Platelets dropped last night and was transfused an additional 2 units of platelets this morning. Continue to monitor and if he has a 20-30 drop, would transfuse. Low threshold for transfusion -Continue to monitor coags and give FFP if INR continues to increase -Iron studies pending -Thrombocytopenia dates as far back as 2015, likely alcohol related. Patient now with leukopenia likely from septic shock picture as patient has unknown source of infection at this time. -B12 ansd Folate wnl -Will continue to monitor
--- NOTE | 2018-05-03 19:38 | PN ---
Teaching Attending Note Name of Resident: Silvia Stephens ATTENDING PHYSICIAN STATEMENT I saw and evaluated the patient. I reviewed the resident's note and discussed the case with the resident. I agree with the resident's findings and plan as documented. SUBJECTIVE: Patient seen and examined Remaints intubated , sedated, on pressors, Hct relatively stable . Requiring platelet support Current platelet count 52K after 2 additional units today. INR-1.7 Hct, despite aggressive fluid resuscitation relatively stable Would transfuse prn platelets if bleeding . In view of sepsis platelets are dysfunctional and would empirically transfuse if platelets fall below 30K Last Vital Signs Temp Pulse Resp BP Pulse Ox 102.8 F H 113 H 22 H 101/69 100 05/03/18 18:20 05/03/18 18:20 05/03/18 18:22 05/03/18 18:20 05/03/18 10:00 Intubated Cor:sinus tach Lungs: rhonchi diffusely Abd: Soft, diminished bowel sounds Hsu catheter Ext:No significant edema CBC, BMP 05/03/18 15:25 05/03/18 15:25 INR, PTT INR 1.70 (0.83-1.09) H 05/03/18 05:15 Fibrinogen 386.0 mg/dL (238-498) 05/03/18 05:15 Current Medications Generic Name Dose Route Start Last Admin Trade Name Freq PRN Reason Stop Dose Admin Acetaminophen 1,000 mg 05/03/18 17:31 Ofirmev Injection - IVPB Q6H PRN FEVER Albuterol/Ipratropium 1 amp 05/03/18 12:00 05/03/18 16:25 Duoneb - NEB 1 amp RQID ALPA Administration Chlorhexidine Gluconate 1 applic 05/01/18 22:00 05/02/18 23:36 Hibiclens For Decolonization - TP 1 applic HS ALPA Administration Octreotide Acetate 1,200 mcg/ 500 mls @ 20.83 mls/hr 05/01/18 15:00 05/03/18 17:23 Dextrose IVPB 20.83 mls/hr ASDIR ALPA Administration 50 MCG/HR Pantoprazole Sodium 80 mg/ 100 mls @ 10 mls/hr 05/01/18 17:00 05/03/18 19:30 Sodium Chloride IVPB 10 mls/hr Q10H ALPA Administration 8 MG/HR Piperacillin Sod/Tazobactam 50 mls @ 100 mls/hr 05/01/18 21:45 05/03/18 15:59 Sod 3.375 gm/ Dextrose IVPB 100 mls/hr Q6H-IV ALPA Administration Protocol Norepinephrine Bitartrate 8, 500 mls @ 18.75 mls/hr 05/02/18 06:30 05/03/18 10:46 000 mcg/ Dextrose IV 15 mcg/min TITR ALPA 56.25 mls/hr Titration Protocol 5 MCG/MIN Dextrose/Sodium Chloride 20 meq in 1,000 mls @ 100 mls/hr 05/02/18 10:45 10/14 10:45 Dextrose 5%-Normal Saline+20 Meq Kcl - IV 100 mls/hr ASDIR ALPA Administration Midazolam HCl 100 mg/ Sodium 100 mls @ 3 mls/hr 05/02/18 15:15 05/03/18 15:45 Chloride IVPB 15 mg/hr TITR ALPA 15 mls/hr Administration Protocol 3 MG/HR Propofol 1,000,000 mcg in 100 mls @ 2.177 mls/hr 05/02/18 15:15 05/03/18 15: 45 Diprivan - IVPB 20 mcg/kg/min TITR ALPA 8.709 mls/hr Administration Protocol 5 MCG/KG/MIN Fentanyl 500 mcg/ Dextrose 100 mls @ 5 mls/hr 05/03/18 10:45 05/03/18 11:02 IVPB 25 mcg/hr TITR ALPA 5 mls/hr Administration Protocol 25 MCG/HR Potassium Chloride 10 meq in 100 mls @ 100 mls/hr 05/03/18 17:15 05/03/18 18: 30 Potassium Chloride 10 Meq Premix Ivpb - IVPB 05/03/18 20:14 100 mls/hr Q60M ALPA Administration Lorazepam 4 mg 05/02/18 23:18 Ativan Injection - IVPUSH Q1H PRN AGITATION Metoclopramide HCl 10 mg 05/01/18 19:00 05/03/18 17:18 Reglan Injection - IVPB 10 mg Q8H-IV ALPA Administration Morphine Sulfate 4 mg 05/01/18 16:35 Morphine Sulfate IVPUSH Q6H PRN PAIN LEVEL 7 - 10 Mupirocin 1 applic 05/01/18 22:00 05/03/18 10:12 Bactroban Ointment (For Decolonization) - NS 05/06/18 21:59 1 applic BID ALPA Administration Thiamine HCl 500 mg 05/02/18 14:00 05/03/18 13:56 Vitamin B1 Injection - IVPB 500 mg TID ALPA Administration Impression : Respiratory failure Intubation Sepsis GI bleeding Coagulopathy Thrombocytopenia As above maintain platelets > 30 K Blood , FFP, platelets prn bleeding or falling Hb/Hct suggestive of ongoing bleeding. OBJECTIVE: ASSESSMENT AND PLAN:
[2018-05-03 19:41] LABS: ANISOCYTOSIS 1+; MACROCYTOSIS 1+; SMUDGE CELLS FEW
[2018-05-03 19:42] LABS: PLATELET ESTIMATE DECREASED
[2018-05-03] MEDS ORDERED: POTASSIUM PHOSPHATE 40 MM in SODIUM CHLORIDE 250 ML IVPB ONE (20:00)
[2018-05-03] MEDS: CHLORHEXIDINE GLUCONATE 4% CLEANSER FOR DECOLONIZATION TP SCH (21:46)
[2018-05-03] MEDS ORDERED: chlordiazePOXIDE HCL 25 MG CAPSULE PO SCH (23:00)
[2018-05-04] MEDS ORDERED: fentaNYL CITRATE 250 MCG/5 ML VIAL ONE ×2 (00:29→18:21)
[2018-05-04] MEDS: FENTANYL INJECTION 500 MCG in DEXTROSE 5%-WATER - 90 ML IVPB SCH ×2 (00:39→10:45)
[2018-05-04] MEDS: PANTOPRAZOLE SODIUM 80 MG in SODIUM CHLORIDE 100 ML IVPB SCH ×3 (00:40→14:44)
[2018-05-04] MEDS: METOCLOPRAMIDE HCL INJECTION 10 MG/2 ML VIAL IVPB SCH ×3 (01:07→17:37)
[2018-05-04] MEDS ORDERED: PIPERACILLIN/TAZOBACTAM 3.375 GM VIAL IVPB ONE ×4 (01:14→21:46)
[2018-05-04] MEDS ORDERED: DEXTROSE 5%-WATER - 50 ML IVPB ONE ×4 (01:15→21:46)
[2018-05-04] MEDS: PIPERACILLIN/TAZOB 3.375 GM 3.375 GM in DEXTROSE 5%-WATER - 50 ML IVPB SCH ×4 (02:31→21:57)
[2018-05-04 03:20] LABS: HEP.C VIRUS AB 0.2 s/co ratio (0.0-0.9)
[2018-05-04 04:20] LABS: SERUM IRON SATURATION 5 % (15-55); TOTAL IRON BINDING CAPACITY 203 ug/dL (250-450); UIBC 193 ug/dL (111-343)
[2018-05-04] MEDS ORDERED: MIDAZOLAM 100 MG/100 ML MG IVPB ONE ×3 (05:12→20:16)
[2018-05-04] MEDS: NOREPINEPHRINE BITARTRATE 8,000 MCG in DEXTROSE 5%-WATER - 492 ML IV SCH (05:55)
[2018-05-04] MEDS: THIAMINE HCL 200 MG/2 ML VIAL IVPB SCH (05:55)
[2018-05-04] MEDS: ACETAMINOPHEN 1000 MG/100 ML VIAL (NON FORMULARY) IVPB PRN (05:55)
[2018-05-04] MEDS: MIDAZOLAM 100 MG in SODIUM CHLORIDE 100 ML IVPB SCH ×2 (05:57→14:45)
[2018-05-04 06:09] LABS: BASO % 0.2 % (0-2.0); EOS % 0.2 % (0-4.5); HEMATOCRIT 31.9 % (35.4-49); HEMOGLOBIN 10.1 GM/dL (11.7-16.9); LYMPH % 8.7 % (8-40); MCH 26.9 pg (25.7-33.7); MCHC 31.8 g/dl (32.0-35.9); MEAN CELL VOLUME 84.4 fl (80-96); MEAN PLT VOLUME 9.6 fl (7.5-11.1); MONO % 4.2 % (3.8-10.2); NEUT % 86.7 % (42.8-82.8); RBC 3.78 M/mm3 (4.00-5.60); RDW 18.6 % (11.9-15.9); WHITE BLOOD COUNT 4.4 K/mm3 (4.0-10.0)
[2018-05-04 06:24] LABS: PLATELET COUNT 18 K/MM3 (134-434)
[2018-05-04 06:34] LABS: INR 1.31 (0.83-1.09); PROTHROMBIN TIME (PATIENT) 15.5 SEC (9.7-13.0)
[2018-05-04 06:36] LABS: ACTIVATED PTT 39.4 SECONDS (25.2-36.5)
[2018-05-04 06:37] LABS: ALK PHOS 74 U/L (45-117); ANION GAP 8 MMOL/L (8-16); BILIRUBIN,TOTAL 3.5 mg/dL (0.2-1); BLOOD UREA NITROGEN 9 mg/dL (7-18); CHLORIDE 104 mmol/L (98-107); CO2 27 mmol/L (21-32); CREATININE 0.5 mg/dL (0.55-1.3); GLUCOSE,RANDOM 110 mg/dL (74-106); MAGNESIUM 1.6 mg/dL (1.8-2.4); PHOSPHOROUS 2.4 mg/dL (2.5-4.9); SGOT/AST 112 U/L (15-37); SGPT/ALT 46 U/L (13-61); SODIUM 139 mmol/L (136-145)
[2018-05-04 06:40] LABS: CALCIUM 6.5 mg/dL (8.5-10.1)
[2018-05-04 07:10] LABS: ARTERIAL BLD GAS O2 SATURATION 97.1 % (90-98.9); ARTERIAL BLOOD GAS BASE EXCESS -0.7 meq/l (-2-2); ARTERIAL BLOOD GAS PCO2 57.5 mmHg (35-45); ARTERIAL BLOOD GAS pH 7.28 (7.35-7.45)
[2018-05-04 07:20] LABS: ALLENS TEST POSITIVE
[2018-05-04] MEDS ORDERED: ALBUTEROL SO4 0.083% IH SOL 2.5 MG/3 ML VIAL.NEB. NEB PRN (07:38)
--- NOTE | 2018-05-04 07:53 | PN ---
Physical Exam: SUBJECTIVE: Patient seen and examined in the ICU. remains intubated and sedated on propofol and versed. On levophed gtt. EGD and Head CT deferred until pt more stable. now brown stools and fevers overnight, Tmax 102.8 OBJECTIVE: Vital Signs Period Temp Pulse Resp BP Sys/Boykin Pulse Ox Last 24 Hr 98.2 F-102.8 F 90-134 14-30 100-143/7-96 98-100 GENERAL: intubated sedated HEENT: NCAT, ETT, OGT NECK: supple, R IJ LUNGS: crackles b/l HEART:tachy RR, normal S1 and S2 without m/r/g ABDOMEN: Soft, ND normoactive bowel sounds MUSCULOSKELETAL: No bony deformities or tenderness. UPPER EXTREMITIES: 2+ pulses, warm, well-perfused. No cyanosis. No clubbing. Cap refill <2 seconds. No peripheral edema. LOWER EXTREMITIES: 2+ pulses, warm, well-perfused. No calf tenderness. No peripheral edema. NEUROLOGICAL: intubated sedated +cough reflex SKIN: Warm, dry, normal turgor, no rashes or lesions noted. Laboratory Results - last 24 hr 05/02/18 05/03/18 05/03/18 17:45 05:15 05:15 WBC RBC Hgb Hct MCV MCH MCHC RDW Plt Count MPV Absolute Neuts (auto) Neutrophils % Neutrophils % (Manual) Band Neutrophils % Lymphocytes % Lymphocytes % (Manual) Monocytes % Monocytes % (Manual) Eosinophils % Basophils % Nucleated RBC % Metamyelocytes Smudge Cells Hypochromia Platelet Estimate Platelet Comment Anisocytosis Macrocytosis PT with INR INR PTT (Actin FS) Fibrinogen 386.0 Puncture Site ABG pH ABG pCO2 at Pt Temp ABG pO2 at Pt Temp ABG HCO3 ABG O2 Sat (Measured) ABG O2 Content ABG Base Excess Leighton Test O2 Delivery Device Oxygen Flow Rate Vent Mode Vent Rate Mechanical Rate PEEP Pressure Support Vent Sodium Potassium Chloride Carbon Dioxide Anion Gap BUN Creatinine Creat Clearance w eGFR Random Glucose Calcium Phosphorus Magnesium Iron 10 L TIBC 203 L Iron Saturation 5 L Transferrin 164 L Total Bilirubin AST ALT Alkaline Phosphatase Total Protein Albumin Stool Occult Blood Hepatitis A IgM Ab Negative Hep Bs Antigen Negative Hep B Core IgM Ab Negative Hepatitis C Antibody 0.2 05/03/18 05/03/18 05/03/18 11:50 15:25 15:25 WBC 4.8 RBC 3.54 L Hgb 10.0 L Hct 29.0 L MCV 81.9 MCH 28.3 MCHC 34.6 RDW 18.4 H Plt Count 53 L D MPV 9.5 Absolute Neuts (auto) 4.3 Neutrophils % 89.1 H Neutrophils % (Manual) 75.0 D Band Neutrophils % 10.0 Lymphocytes % 7.6 L Lymphocytes % (Manual) 9.0 Monocytes % 2.9 L Monocytes % (Manual) 4 Eosinophils % 0.2 Basophils % 0.2 Nucleated RBC % 0 Metamyelocytes 2 Smudge Cells Few Hypochromia 2+ Platelet Estimate Decreased Platelet Comment No clumping noted Anisocytosis 1+ Macrocytosis 1+ PT with INR INR PTT (Actin FS) Fibrinogen Puncture Site ABG pH ABG pCO2 at Pt Temp ABG pO2 at Pt Temp ABG HCO3 ABG O2 Sat (Measured) ABG O2 Content ABG Base Excess Leighton Test O2 Delivery Device Oxygen Flow Rate Vent Mode Vent Rate Mechanical Rate PEEP Pressure Support Vent Sodium 137 Potassium 3.2 L Chloride 101 Carbon Dioxide 26 Anion Gap 10 BUN 11 Creatinine 0.6 Creat Clearance w eGFR > 60 Random Glucose 133 H Calcium 6.9 L* Phosphorus 1.3 L Magnesium 1.8 Iron TIBC Iron Saturation Transferrin Total Bilirubin 3.7 H AST 119 H ALT 52 Alkaline Phosphatase 69 Total Protein 4.8 L Albumin 2.1 L Stool Occult Blood Positive Hepatitis A IgM Ab Hep Bs Antigen Hep B Core IgM Ab Hepatitis C Antibody 05/04/18 05/04/18 05/04/18 05:30 05:30 05:30 WBC 4.4 RBC 3.78 L Hgb 10.1 L Hct 31.9 L MCV 84.4 MCH 26.9 MCHC 31.8 L RDW 18.6 H Plt Count 18 L* D MPV 9.6 Absolute Neuts (auto) 3.8 Neutrophils % 86.7 H Neutrophils % (Manual) Band Neutrophils % Lymphocytes % 8.7 Lymphocytes % (Manual) Monocytes % 4.2 Monocytes % (Manual) Eosinophils % 0.2 Basophils % 0.2 Nucleated RBC % 0 Metamyelocytes Smudge Cells Hypochromia Platelet Estimate Platelet Comment Anisocytosis Macrocytosis PT with INR 15.50 H INR 1.31 H PTT (Actin FS) 39.4 H Fibrinogen Puncture Site ABG pH ABG pCO2 at Pt Temp ABG pO2 at Pt Temp ABG HCO3 ABG O2 Sat (Measured) ABG O2 Content ABG Base Excess Leighton Test O2 Delivery Device Oxygen Flow Rate Vent Mode Vent Rate Mechanical Rate PEEP Pressure Support Vent Sodium 139 Potassium 4.0 Chloride 104 Carbon Dioxide 27 Anion Gap 8 BUN 9 Creatinine 0.5 L Creat Clearance w eGFR > 60 Random Glucose 110 H Calcium 6.5 L* Phosphorus 2.4 L Magnesium 1.6 L Iron TIBC Iron Saturation Transferrin Total Bilirubin 3.5 H AST 112 H ALT 46 Alkaline Phosphatase 74 Total Protein 5.0 L Albumin 2.0 L Stool Occult Blood Hepatitis A IgM Ab Hep Bs Antigen Hep B Core IgM Ab Hepatitis C Antibody 05/04/18 06:55 WBC RBC Hgb Hct MCV MCH MCHC RDW Plt Count MPV Absolute Neuts (auto) Neutrophils % Neutrophils % (Manual) Band Neutrophils % Lymphocytes % Lymphocytes % (Manual) Monocytes % Monocytes % (Manual) Eosinophils % Basophils % Nucleated RBC % Metamyelocytes Smudge Cells Hypochromia Platelet Estimate Platelet Comment Anisocytosis Macrocytosis PT with INR INR PTT (Actin FS) Fibrinogen Puncture Site Right radial ABG pH 7.28 L ABG pCO2 at Pt Temp 57.5 H D ABG pO2 at Pt Temp 101.0 H D ABG HCO3 26.1 H ABG O2 Sat (Measured) 97.1 ABG O2 Content 13.4 L ABG Base Excess -0.7 Leighton Test Positive O2 Delivery Device A/c Oxygen Flow Rate 50% Vent Mode A/c Vent Rate 14 Mechanical Rate Yes PEEP 5.0 Pressure Support Vent 450 Sodium Potassium Chloride Carbon Dioxide Anion Gap BUN Creatinine Creat Clearance w eGFR Random Glucose Calcium Phosphorus Magnesium Iron TIBC Iron Saturation Transferrin Total Bilirubin AST ALT Alkaline Phosphatase Total Protein Albumin Stool Occult Blood Hepatitis A IgM Ab Hep Bs Antigen Hep B Core IgM Ab Hepatitis C Antibody Active Medications Generic Name Dose Route Start Last Admin Trade Name Freq PRN Reason Stop Dose Admin Acetaminophen 1,000 mg 05/03/18 17:31 05/04/18 05:55 Ofirmev Injection - IVPB 1,000 mg Q6H PRN Administration FEVER Acetylcysteine 300 mg 05/04/18 08:00 Mucomyst 20 Oral / Inh Use Only* NEB RQID ALPA Albuterol Sulfate 1 amp 05/04/18 07:38 Ventolin 0.083% Nebulizer Soln - NEB Q4H PRN SHORT OF BREATH/WHEEZING Albuterol/Ipratropium 1 amp 05/03/18 12:00 05/03/18 20:18 Duoneb - NEB 1 amp RQID ALPA Administration Chlorhexidine Gluconate 1 applic 05/01/18 22:00 05/03/18 21:46 Hibiclens For Decolonization - TP 1 applic HS ALPA Administration Octreotide Acetate 1,200 mcg/ 500 mls @ 20.83 mls/hr 05/01/18 15:00 05/03/18 17:23 Dextrose IVPB 20.83 mls/hr ASDIR ALPA Administration 50 MCG/HR Pantoprazole Sodium 80 mg/ 100 mls @ 10 mls/hr 05/01/18 17:00 05/04/18 05:55 Sodium Chloride IVPB Not Given Q10H ALPA 8 MG/HR Piperacillin Sod/Tazobactam 50 mls @ 100 mls/hr 05/01/18 21:45 05/04/18 02:31 Sod 3.375 gm/ Dextrose IVPB 100 mls/hr Q6H-IV ALPA Administration Protocol Norepinephrine Bitartrate 8, 500 mls @ 18.75 mls/hr 05/02/18 06:30 05/04/18 05:55 000 mcg/ Dextrose IV 12 mcg/min TITR ALPA 45 mls/hr Administration Protocol 5 MCG/MIN Dextrose/Sodium Chloride 20 meq in 1,000 mls @ 100 mls/hr 05/02/18 10:45 10/14 10:45 Dextrose 5%-Normal Saline+20 Meq Kcl - IV 100 mls/hr ASDIR ALPA Administration Midazolam HCl 100 mg/ Sodium 100 mls @ 3 mls/hr 05/02/18 15:15 05/04/18 05:57 Chloride IVPB 15 mg/hr TITR ALPA 15 mls/hr Administration Protocol 3 MG/HR Propofol 1,000,000 mcg in 100 mls @ 2.177 mls/hr 05/02/18 15:15 05/03/18 22: 30 Diprivan - IVPB 20 mcg/kg/min TITR ALPA 8.709 mls/hr Administration Protocol 5 MCG/KG/MIN Fentanyl 500 mcg/ Dextrose 100 mls @ 5 mls/hr 05/03/18 10:45 05/04/18 00:39 IVPB 30 mcg/hr TITR ALPA 6 mls/hr Administration Protocol 25 MCG/HR Sodium Phosphate 30 mm/ 260 mls @ 62.5 mls/hr 05/04/18 07:50 Dextrose IVPB 05/04/18 11:59 ONCE ONE Lorazepam 4 mg 05/02/18 23:18 Ativan Injection - IVPUSH Q1H PRN AGITATION Magnesium Sulfate 2 gm 05/04/18 07:51 Magnesium Sulfate IVPB 05/04/18 07:52 ONCE ONE Metoclopramide HCl 10 mg 05/01/18 19:00 05/04/18 01:07 Reglan Injection - IVPB 10 mg Q8H-IV ALPA Administration Morphine Sulfate 4 mg 05/01/18 16:35 Morphine Sulfate IVPUSH Q6H PRN PAIN LEVEL 7 - 10 Mupirocin 1 applic 05/01/18 22:00 05/03/18 21:46 Bactroban Ointment (For Decolonization) - NS 05/06/18 21:59 1 applic BID ALPA Administration Thiamine HCl 500 mg 05/02/18 14:00 05/04/18 05:55 Vitamin B1 Injection - IVPB 500 mg TID ALPA Administration ASSESSMENT/PLAN: 53yo m with PMH of GI bleed, EtOH abuse, seizures?, HTN, anemia, varicies, presenting to ICU w/ acute GIB bleed, likely upper and etoh abuse. Now found w/ septic shock unclear etiology on levophed, and in DTs. NEURO DTs 05/02/18, last drink 1pt of Vodka 05/01/18? intubated sedated on propofol, versed gtt, fentanyl gtt Utox - neg s/p banana bag decrease Thiamin 500 tid to 250 qd detox consult seizures? - questionable hx of seizures. was evaluated by Neuro on prior admission in 02/2018. was given keppra but it was stopped as seizure was likely caused by alcohol use. Patient at that time indicated he has always had seizures only in setting of ETOH withdrawl. Pt not having any seizure like activity on this admission. Will cont to monitor. Fall?- Head CT when hemodynamically stable Cardiac/PULM/GI SVT?/sinus tach 2/2 sepsis 05/01/18 - HR was in 170s but unresponsive to adenosine, responded to Lopressor Echo - nl, EF 60% cardio consult R IJ central line 05/01/18, on levophed gtt add vasopressin and stress steroids titrate pressors to maintain MAP > 65 O2 as needed cardiac monitoring not a candidate for weaning at this time sedate for vent synchrony monitor H/H s/p 1 u prbc in ED. transfuse if <7 or significant drop in Hgb c/w active GIB s/p 7-9 L IVF D5 NS 20 K 75cc/hr pain ctl reglan - nausea EKG: sinus tachycardia. no ST changes, Qtc 512 on admission monitor Qtc cxr - worsening L pulm and pleural changes, may be source of infx, CAP vs aspiration PNA elevate head of bed, aspiration precautions FOBT pos protonix gtt octreotide - hx varices?, may be source of bleed GI consult underwent EGD 07/[address] Hester that revealed severe erosive esophagitis. elevated lactic - trend lactic acid EGD deferred because of Septic shock ID septic shock, unclear etiology, w/ fevers (Tmax 105) and R IJ placement. 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 UA - 1+ ketones, blood , proteins ucx, bcx, legionella, flu neg fevers overnight, Tmax 102.8, rpt cultures HEME Neuropenia and thrombocytopenia coagulopathy, likely related to liver disease, alcohol abuse, and Sepsis unclear etiology, possibly 2/2 PNA fibrinogen nl heme consult vit k 10mg sq x1 dose 05/02/18 vit K 5 sq 05/03/18 Ideally would like to maintain platelets > 80K-100K and if feasible INR@1.2 transfuse plt and FFP as needed Iron studies reveal Iron deficiency as well as anemia of chronic disease due to low TIBC and elevated ferritin. RENAL Anion Gap acidosis/lactic acidosis w/ multiple lyte abnl consistent w/ ETOH ketoacidosis - hypo K, Mg, Ca, Cl - improving HU- likely pre renal - resolved monitor Cr, UOP s/p 7-9 L IVF D5 NS 20 K 75cc/hr yeung FEN D5 NS 20 K 75cc/hr replete prn will start tube feeds ppx SCD protonix gtt Dispo: ICU monitoring EGD deferred because of Septic shock Head CT when hemodynamically stable Visit type - Emergency Visit Emergency Visit: Yes ED Registration Date: 05/01/18 Care time: The patient presented to the Emergency Department on the above date and was hospitalized for further evaluation of their emergent condition. - New Patient This patient is new to me today: Yes Date on this admission: 05/04/18 - Critical Care Critical Care patient: Yes Total Critical Care Time (in minutes): 40 Critical Care Statement: The care of this patient involved high complexity decision making to prevent further life threatening deterioration of the patient 's condition and/or to evaluate & treat vital organ system(s) failure or risk of failure.
[2018-05-04] MEDS: ALBUTEROL SO4 2.5/IPRATROPIUM 0.5 INH SOL 3 ML VIAL.NEB. NEB SCH (08:00)
[2018-05-04] MEDS ORDERED: MAGNESIUM 2GM/50ML STERILE WATER IVPB IVPB ONE (08:30)
[2018-05-04] MEDS ORDERED: CALCIUM GLUCONATE 10% - 1,000 MG/10 ML VIAL IVPB ONE (09:00)
[2018-05-04] MEDS ORDERED: SODIUM PHOSPHATE - 30 MM in DEXTROSE 5%-WATER - 250 ML IVPB ONE (09:00)
[2018-05-04] MEDS: MUPIROCIN 2% TOPICAL OINTMENT FOR DECOLONIZATION NS SCH ×2 (09:15→21:57)
[2018-05-04] MEDS ORDERED: VASOPRESSIN 20 UNITS/ML VIAL IV ONE (09:29)
[2018-05-04] MEDS: VASOPRESSIN 50 UNITS in SODIUM CHLORIDE 97.5 ML IVPB SCH (09:32)
[2018-05-04] MEDS: ALBUTEROL SO4 0.083% IH SOL 2.5 MG/3 ML VIAL.NEB. NEB SCH ×4 (09:40→20:47)
[2018-05-04] MEDS: ACETYLCYSTEINE 20% 200MG/ML 4 ML VIAL *FOR ORAL / INH USE ONLY NEB SCH ×4 (09:41→20:47)
[2018-05-04] MEDS: HYDROCORTISONE SOD SUCCINATE 100 MG/2 ML VIAL IVPB SCH ×3 (09:45→21:57)
[2018-05-04] MEDS: D5-NS + 20 MEQ KCL - 20 MEQ/1,000 ML INFUS.BAG IV SCH (11:00)
[2018-05-04 11:14] LABS: ANISOCYTOSIS 1+; MACROCYTOSIS 1+; PLATELET ESTIMATE DECREASED; TEAR DROP CELLS 1+
--- NOTE | 2018-05-04 11:34 | PN ---
Progress Note (short form) - Note Progress Note: PROGRESS NOTE FOR HEMATOLOGY/ONCOLOGY Patient seen and examined by me at bedside Patient intubated and sedated Platelets continue to drop- 18 today Vital Signs Temperature 99.4 F 05/04/18 10:30 Pulse Rate 103 H 05/04/18 10:30 Respiratory Rate 18 05/04/18 10:30 Blood Pressure 92/70 05/04/18 10:30 O2 Sat by Pulse Oximetry (%) 99 05/04/18 10:00 PHYSICAL EXAMINATION: GENERAL: Intubated and sedated ENT: Unable to assess. ET tube LUNGS: Course breath sounds anteriorly. Intubated HEART: Tachycardic with regular rhythm, normal S1 and S2 without murmur, rub or gallop. ABDOMEN: Soft, nontender, not distended, normoactive bowel sounds EXTREMITIES: No peripheral edema. Laboratory Tests 05/04/18 05:30 05/04/18 05:30 ASSESSMENT/PLAN: Patient is a 53 year old male who presented for hematesis and was found to have DT's, leukopenia and thrombocytopenia. We were consulted for further monitoring and management. Problem List: Thrombocytopenia Leukopenia Iron deficiency anemia Coagulopathy Suspected Septic Shock- Unknown source Alcohol abuse Alcohol withdrawal Delirium Tremens Hematemesis- likely upper GI bleed Erosive esophagitis Plan: -Acute problems include thrombocytopenia and coagulopathy, likely related to liver disease, alcohol abuse, and Sepsis of unknown etiology. -Platelets continue to drop. 4 units of platelets ordered today -Continue to monitor coags and give FFP if INR continues to increase -Iron studies reveal Iron deficiency as well as anemia of chronic disease due to low TIBC and elevated ferritin. -Continue to treat source of infection -Will continue to monitor
--- NOTE | 2018-05-04 12:00 | PN ---
Progress Note, Physician History of Present Illness: Sedated and intubated on pressor support, too unstable for EGD. - Current Medication List Current Medications: Active Medications Acetaminophen (Ofirmev Injection -) 1,000 mg IVPB Q6H PRN PRN Reason: FEVER Last Admin: 05/04/18 05:55 Dose: 1,000 mg Acetylcysteine (Mucomyst 20 Oral / Inh Use Only*) 300 mg NEB RQID ALPA Last Admin: 05/04/18 11:45 Dose: 300 mg Albuterol Sulfate (Ventolin 0.083% Nebulizer Soln -) 1 amp NEB Q4H PRN PRN Reason: SHORT OF BREATH/WHEEZING Albuterol Sulfate (Ventolin 0.083% Nebulizer Soln -) 1 amp NEB RQID ALPA Last Admin: 05/04/18 11:46 Dose: 1 amp Chlorhexidine Gluconate (Hibiclens For Decolonization -) 1 applic TP HS ALPA Last Admin: 05/03/18 21:46 Dose: 1 applic Hydrocortisone Sodium Succinate (Solu-Cortef -) 50 mg IVPB Q6H-IV ALPA Last Admin: 05/04/18 09:45 Dose: 50 mg Octreotide Acetate 1,200 mcg/ (Dextrose) 500 mls @ 20.83 mls/hr IVPB ASDIR ALPA Last Admin: 05/03/18 17:23 Dose: 20.83 mls/hr Pantoprazole Sodium 80 mg/ (Sodium Chloride) 100 mls @ 10 mls/hr IVPB Q10H ALPA Last Admin: 05/04/18 05:55 Dose: Not Given Piperacillin Sod/Tazobactam (Sod 3.375 gm/ Dextrose) 50 mls @ 100 mls/hr IVPB Q6H-IV ALPA; Protocol Last Admin: 05/04/18 08:40 Dose: 100 mls/hr Norepinephrine Bitartrate 8, (000 mcg/ Dextrose) 500 mls @ 18.75 mls/hr IV TITR ALPA; Protocol Last Titration: 05/04/18 09:09 Dose: 20 mcg/min, 75 mls/hr Dextrose/Sodium Chloride (Dextrose 5%-Normal Saline+20 Meq Kcl -) 20 meq in 1, 000 mls @ 100 mls/hr IV ASDIR ALPA Last Admin: 05/03/18 10:45 Dose: 100 mls/hr Midazolam HCl 100 mg/ Sodium (Chloride) 100 mls @ 3 mls/hr IVPB TITR ALPA; Protocol Last Admin: 05/04/18 05:57 Dose: 15 mg/hr, 15 mls/hr Propofol (Diprivan -) 1,000,000 mcg in 100 mls @ 2.177 mls/hr IVPB TITR ALPA; Protocol Last Admin: 05/03/18 22:30 Dose: 20 mcg/kg/min, 8.709 mls/hr Fentanyl 500 mcg/ Dextrose 100 mls @ 5 mls/hr IVPB TITR ALPA; Protocol Last Admin: 05/04/18 00:39 Dose: 30 mcg/hr, 6 mls/hr Sodium Phosphate 30 mm/ (Dextrose) 260 mls @ 43.333 mls/hr IVPB ONCE ONE Stop: 05/04/18 14:59 Last Admin: 05/04/18 11:05 Dose: 43.333 mls/hr Vasopressin 50 units/ Sodium (Chloride) 100 mls @ 4 mls/hr IVPB ASDIR ALPA; Protocol Last Admin: 05/04/18 09:32 Dose: 2 units/hr, 4 mls/hr Lorazepam (Ativan Injection -) 4 mg IVPUSH Q1H PRN PRN Reason: AGITATION Metoclopramide HCl (Reglan Injection -) 10 mg IVPB Q8H-IV ALPA Last Admin: 05/04/18 09:08 Dose: 10 mg Morphine Sulfate (Morphine Sulfate) 4 mg IVPUSH Q6H PRN PRN Reason: PAIN LEVEL 7 - 10 Mupirocin (Bactroban Ointment (For Decolonization) -) 1 applic NS BID ALPA Stop: 05/06/18 21:59 Last Admin: 05/04/18 09:15 Dose: 1 applic Thiamine HCl (Vitamin B1 Injection -) 500 mg IVPB TID ALPA Last Admin: 05/04/18 05:55 Dose: 500 mg - Objective Vital Signs: Vital Signs Temperature 99.4 F 05/04/18 10:30 Pulse Rate 103 H 05/04/18 10:30 Respiratory Rate 18 05/04/18 11:45 Blood Pressure 92/70 05/04/18 10:30 O2 Sat by Pulse Oximetry (%) 99 05/04/18 10:00 Constitutional: Yes: No Distress, Calm Neck: Yes: Supple Cardiovascular: Yes: Regular Rate and Rhythm Respiratory: Yes: Intubated, Mechanically Ventilated, Rhonchi Gastrointestinal: Yes: Soft, Hypoactive Bowel Sounds Edema: No Labs: CBC, BMP 05/04/18 05:30 05/04/18 05:30 INR, PTT INR 1.31 (0.83-1.09) H 05/04/18 05:30 Fibrinogen 386.0 mg/dL (238-498) 05/03/18 05:15 - ....Imaging Chest X-ray: Report Reviewed (Left pulm, pleural changes) Problem List - Problems (1) GI bleed Code(s): K92.2 - GASTROINTESTINAL HEMORRHAGE, UNSPECIFIED Qualifiers: GI bleed type/associated pathology: gastrointestinal hemorrhage with hematemesis Qualified Code(s): K92.0 - Hematemesis (2) Septic shock Code(s): A41.9 - SEPSIS, UNSPECIFIED ORGANISM; R65.21 - SEVERE SEPSIS WITH SEPTIC SHOCK (3) Erosive esophagitis Code(s): K22.10 - ULCER OF ESOPHAGUS WITHOUT BLEEDING (4) Hematemesis Code(s): K92.0 - HEMATEMESIS Qualifiers: Nausea presence: unspecified Qualified Code(s): K92.0 - Hematemesis (5) Seizure Code(s): R56.9 - UNSPECIFIED CONVULSIONS (6) Thrombocytopenia Code(s): D69.6 - THROMBOCYTOPENIA, UNSPECIFIED (7) Alcohol abuse Code(s): F10.10 - ALCOHOL ABUSE, UNCOMPLICATED (8) Jessica-Gimenez tear Code(s): K22.6 - GASTRO-ESOPHAGEAL LACERATION-HEMORRHAGE SYNDROME (9) UGIB (upper gastrointestinal bleed) Code(s): K92.2 - GASTROINTESTINAL HEMORRHAGE, UNSPECIFIED (10) Hyperlipidemia Code(s): E78.5 - HYPERLIPIDEMIA, UNSPECIFIED Qualifiers: Hyperlipidemia type: pure hypercholesterolemia Qualified Code(s): E78.00 - Pure hypercholesterolemia, unspecified; E78.0 - Pure hypercholesterolemia (11) Acute respiratory failure Code(s): J96.00 - ACUTE RESPIRATORY FAILURE, UNSP W HYPOXIA OR HYPERCAPNIA Qualifiers: Respiratory failure complication: hypoxia Qualified Code(s): J96.01 - Acute respiratory failure with hypoxia Assessment/Plan 05/02/2018 Echo: Normal LV and RV size and fxn, LVEF 50%, mild MR, TR, AR 1. Acute hypercapneic hypoxic respiratory failure with non-cardiogenic pulm edema 2. Hypotension and fever c/w septic shock, suspect aspiration PNA 2. Acute UGI bleed with history of erosive esophagitis and varices 3. ETOH abuse 4. Leukopenia, coagulopathy and thrombocytopenia due to alcohol, sepsis, liver disease 5. Seizure d/o, ? ETOH related 6. Sinus tachycardia due to above PLAN: 1. Continue current management as per critical care team. Continue pressor support to maintain MAP > 65, IV steroids with GI protection 2. Broad spectrum antibiotic coverage per C&S 4. Monitor CBC (WBC and Platelet), INR and transfuse as needed. 5. EGD once hemodynamically stable, PPI, Octreotide, vitamin repletion 6. Ideally would like to maintain platelets > 80K-100K and if feasible INR@1.2. 7. IV diuresis with monitor diuretic response, renal fxn and electrolytes, vent management and BD as needed
--- NOTE | 2018-05-04 12:36 | PN ---
Teaching Attending Note Name of Resident: Dre Martinez ATTENDING PHYSICIAN STATEMENT I saw and evaluated the patient. I reviewed the resident's note and discussed the case with the resident. I agree with the resident's findings and plan as documented. SUBJECTIVE: Patient seen and examined in the ICU. Intubated and sedated. NE @ 15 mcq and Vasopressin 2 units for hemodynamic support. Denies CP or SOB. No active bleeding noted. Intake & Output 05/01/18 05/02/18 05/03/18 05/04/18 23:59 23:59 23:59 23:59 Intake Total 3340 52343 09731.6 1853 Output Total 700 5175 1450 600 Balance 2640 4890 43459.6 1253 Weight 160 lb 160 lb 189 lb 216 lb 7.903 oz Last Vital Signs Temp Pulse Resp BP Pulse Ox 99.4 F 103 H 18 92/70 99 05/04/18 10:30 05/04/18 10:30 05/04/18 11:45 05/04/18 10:30 05/04/18 10:00 Active Medications Acetaminophen (Ofirmev Injection -) 1,000 mg IVPB Q6H PRN PRN Reason: FEVER Last Admin: 05/04/18 05:55 Dose: 1,000 mg Acetylcysteine (Mucomyst 20 Oral / Inh Use Only*) 300 mg NEB RQID ALPA Last Admin: 05/04/18 11:45 Dose: 300 mg Albuterol Sulfate (Ventolin 0.083% Nebulizer Soln -) 1 amp NEB Q4H PRN PRN Reason: SHORT OF BREATH/WHEEZING Albuterol Sulfate (Ventolin 0.083% Nebulizer Soln -) 1 amp NEB RQID ALPA Last Admin: 05/04/18 11:46 Dose: 1 amp Chlorhexidine Gluconate (Hibiclens For Decolonization -) 1 applic TP HS ALPA Last Admin: 05/03/18 21:46 Dose: 1 applic Hydrocortisone Sodium Succinate (Solu-Cortef -) 50 mg IVPB Q6H-IV ALPA Last Admin: 05/04/18 09:45 Dose: 50 mg Octreotide Acetate 1,200 mcg/ (Dextrose) 500 mls @ 20.83 mls/hr IVPB ASDIR ALPA Last Admin: 05/03/18 17:23 Dose: 20.83 mls/hr Pantoprazole Sodium 80 mg/ (Sodium Chloride) 100 mls @ 10 mls/hr IVPB Q10H ALPA Last Admin: 05/04/18 05:55 Dose: Not Given Piperacillin Sod/Tazobactam (Sod 3.375 gm/ Dextrose) 50 mls @ 100 mls/hr IVPB Q6H-IV ALPA; Protocol Last Admin: 05/04/18 08:40 Dose: 100 mls/hr Norepinephrine Bitartrate 8, (000 mcg/ Dextrose) 500 mls @ 18.75 mls/hr IV TITR ALPA; Protocol Last Titration: 05/04/18 09:09 Dose: 20 mcg/min, 75 mls/hr Dextrose/Sodium Chloride (Dextrose 5%-Normal Saline+20 Meq Kcl -) 20 meq in 1, 000 mls @ 100 mls/hr IV ASDIR ALPA Last Admin: 05/03/18 10:45 Dose: 100 mls/hr Midazolam HCl 100 mg/ Sodium (Chloride) 100 mls @ 3 mls/hr IVPB TITR ALPA; Protocol Last Admin: 05/04/18 05:57 Dose: 15 mg/hr, 15 mls/hr Propofol (Diprivan -) 1,000,000 mcg in 100 mls @ 2.177 mls/hr IVPB TITR ALPA; Protocol Last Admin: 05/03/18 22:30 Dose: 20 mcg/kg/min, 8.709 mls/hr Fentanyl 500 mcg/ Dextrose 100 mls @ 5 mls/hr IVPB TITR ALPA; Protocol Last Admin: 05/04/18 00:39 Dose: 30 mcg/hr, 6 mls/hr Sodium Phosphate 30 mm/ (Dextrose) 260 mls @ 43.333 mls/hr IVPB ONCE ONE Stop: 05/04/18 14:59 Last Admin: 05/04/18 11:05 Dose: 43.333 mls/hr Vasopressin 50 units/ Sodium (Chloride) 100 mls @ 4 mls/hr IVPB ASDIR ALPA; Protocol Last Admin: 05/04/18 09:32 Dose: 2 units/hr, 4 mls/hr Lorazepam (Ativan Injection -) 4 mg IVPUSH Q1H PRN PRN Reason: AGITATION Metoclopramide HCl (Reglan Injection -) 10 mg IVPB Q8H-IV ALPA Last Admin: 05/04/18 09:08 Dose: 10 mg Morphine Sulfate (Morphine Sulfate) 4 mg IVPUSH Q6H PRN PRN Reason: PAIN LEVEL 7 - 10 Mupirocin (Bactroban Ointment (For Decolonization) -) 1 applic NS BID [facility] Stop: 05/06/18 21:59 Last Admin: 05/04/18 09:15 Dose: 1 applic Thiamine HCl (Vitamin B1 Injection -) 500 mg IVPB TID [facility] Last Admin: 05/04/18 05:55 Dose: 500 mg GENERAL: Intubated and sedated HEAD: NCAT EYES: sclera anicteric, conjunctiva clear. No lid lag. EARS, NOSE, THROAT: Ears normal, nares patent, oropharynx w/ dry blood. MMM NECK: Normal range of motion, supple without lymphadenopathy, JVD, or masses. LUNGS: bilateral rhonchi HEART:tachy RR, normal S1 and S2 without murmur, rub or gallop. ABDOMEN: Soft, ND TTP diffuse , normoactive bowel sounds MUSCULOSKELETAL: Normal range of motion at all joints. No bony deformities or tenderness. UPPER EXTREMITIES: 2+ pulses, warm, well-perfused. No cyanosis. No clubbing. Cap refill <2 seconds. No peripheral edema. LOWER EXTREMITIES: 2+ pulses, warm, well-perfused. No calf tenderness. No peripheral edema. NEUROLOGICAL: Sedated SKIN: Warm, dry, normal turgor, no rashes or lesions noted. Laboratory Results - last 24 hr 05/02/18 05/03/18 05/03/18 17:45 05:15 11:50 WBC RBC Hgb Hct MCV MCH MCHC RDW Plt Count MPV Absolute Neuts (auto) Neutrophils % Neutrophils % (Manual) Band Neutrophils % Lymphocytes % Lymphocytes % (Manual) Monocytes % Monocytes % (Manual) Eosinophils % Basophils % Nucleated RBC % Metamyelocytes Smudge Cells Hypochromia Platelet Estimate Platelet Comment Anisocytosis Macrocytosis PT with INR INR PTT (Actin FS) Puncture Site ABG pH ABG pCO2 at Pt Temp ABG pO2 at Pt Temp ABG HCO3 ABG O2 Sat (Measured) ABG O2 Content ABG Base Excess Leighton Test O2 Delivery Device Oxygen Flow Rate Vent Mode Vent Rate Mechanical Rate PEEP Pressure Support Vent Sodium Potassium Chloride Carbon Dioxide Anion Gap BUN Creatinine Creat Clearance w eGFR Random Glucose Calcium Phosphorus Magnesium Iron 10 L TIBC 203 L Iron Saturation 5 L Transferrin 164 L Total Bilirubin AST ALT Alkaline Phosphatase Total Protein Albumin Stool Occult Blood Positive Hepatitis A IgM Ab Negative Hep Bs Antigen Negative Hep B Core IgM Ab Negative Hepatitis C Antibody 0.2 05/03/18 05/03/18 05/04/18 15:25 15:25 05:30 WBC 4.8 4.4 RBC 3.54 L 3.78 L Hgb 10.0 L 10.1 L Hct 29.0 L 31.9 L MCV 81.9 84.4 MCH 28.3 26.9 MCHC 34.6 31.8 L RDW 18.4 H 18.6 H Plt Count 53 L D 18 L* D MPV 9.5 9.6 Absolute Neuts (auto) 4.3 3.8 Neutrophils % 89.1 H 86.7 H Neutrophils % (Manual) 75.0 D Band Neutrophils % 10.0 Lymphocytes % 7.6 L 8.7 Lymphocytes % (Manual) 9.0 Monocytes % 2.9 L 4.2 Monocytes % (Manual) 4 Eosinophils % 0.2 0.2 Basophils % 0.2 0.2 Nucleated RBC % 0 0 Metamyelocytes 2 Smudge Cells Few Hypochromia 2+ Platelet Estimate Decreased Platelet Comment No clumping noted Anisocytosis 1+ Macrocytosis 1+ PT with INR INR PTT (Actin FS) Puncture Site ABG pH ABG pCO2 at Pt Temp ABG pO2 at Pt Temp ABG HCO3 ABG O2 Sat (Measured) ABG O2 Content ABG Base Excess Leighton Test O2 Delivery Device Oxygen Flow Rate Vent Mode Vent Rate Mechanical Rate PEEP Pressure Support Vent Sodium 137 Potassium 3.2 L Chloride 101 Carbon Dioxide 26 Anion Gap 10 BUN 11 Creatinine 0.6 Creat Clearance w eGFR > 60 Random Glucose 133 H Calcium 6.9 L* Phosphorus 1.3 L Magnesium 1.8 Iron TIBC Iron Saturation Transferrin Total Bilirubin 3.7 H AST 119 H ALT 52 Alkaline Phosphatase 69 Total Protein 4.8 L Albumin 2.1 L Stool Occult Blood Hepatitis A IgM Ab Hep Bs Antigen Hep B Core IgM Ab Hepatitis C Antibody 05/04/18 05/04/18 05/04/18 05:30 05:30 06:55 WBC RBC Hgb Hct MCV MCH MCHC RDW Plt Count MPV Absolute Neuts (auto) Neutrophils % Neutrophils % (Manual) Band Neutrophils % Lymphocytes % Lymphocytes % (Manual) Monocytes % Monocytes % (Manual) Eosinophils % Basophils % Nucleated RBC % Metamyelocytes Smudge Cells Hypochromia Platelet Estimate Platelet Comment Anisocytosis Macrocytosis PT with INR 15.50 H INR 1.31 H PTT (Actin FS) 39.4 H Puncture Site Right radial ABG pH 7.28 L ABG pCO2 at Pt Temp 57.5 H D ABG pO2 at Pt Temp 101.0 H D ABG HCO3 26.1 H ABG O2 Sat (Measured) 97.1 ABG O2 Content 13.4 L ABG Base Excess -0.7 Leighton Test Positive O2 Delivery Device A/c Oxygen Flow Rate 50% Vent Mode A/c Vent Rate 14 Mechanical Rate Yes PEEP 5.0 Pressure Support Vent 450 Sodium 139 Potassium 4.0 Chloride 104 Carbon Dioxide 27 Anion Gap 8 BUN 9 Creatinine 0.5 L Creat Clearance w eGFR > 60 Random Glucose 110 H Calcium 6.5 L* Phosphorus 2.4 L Magnesium 1.6 L Iron TIBC Iron Saturation Transferrin Total Bilirubin 3.5 H AST 112 H ALT 46 Alkaline Phosphatase 74 Total Protein 5.0 L Albumin 2.0 L Stool Occult Blood Hepatitis A IgM Ab Hep Bs Antigen Hep B Core IgM Ab Hepatitis C Antibody ASSESSMENT/PLAN: Acute GI bleed suspected Variceal in nature ETOH abuse Seizures HTN Anemia Suspected Septic Shock: source unclear Coagulopathy (?) Empyema IVF Vaso / NE to maintain MAP > 65 Strict I & O ABX per ID Normal transfusion thresholds O2 as needed Thiamine MVI Pain control PPI ICU monitoring Dr Davalos Critical care time spent in reviewing chart, evaluating patient and formulating plan - 36 minutes.
[2018-05-04] MEDS ORDERED: D5-NS + 20 MEQ KCL - 20 MEQ/1,000 ML INFUS.BAG IV SCH (12:43)
--- NOTE | 2018-05-04 12:57 | PN ---
Progress Note, Physician History of Present Illness: continues to be intubated sedated drop in platelets spiking fevers - Current Medication List Current Medications: Active Medications Acetaminophen (Ofirmev Injection -) 1,000 mg IVPB Q6H PRN PRN Reason: FEVER Last Admin: 05/04/18 05:55 Dose: 1,000 mg Acetylcysteine (Mucomyst 20 Oral / Inh Use Only*) 300 mg NEB RQID ALPA Last Admin: 05/04/18 11:45 Dose: 300 mg Albuterol Sulfate (Ventolin 0.083% Nebulizer Soln -) 1 amp NEB Q4H PRN PRN Reason: SHORT OF BREATH/WHEEZING Albuterol Sulfate (Ventolin 0.083% Nebulizer Soln -) 1 amp NEB RQID ALPA Last Admin: 05/04/18 11:46 Dose: 1 amp Chlorhexidine Gluconate (Hibiclens For Decolonization -) 1 applic TP HS ALPA Last Admin: 05/03/18 21:46 Dose: 1 applic Hydrocortisone Sodium Succinate (Solu-Cortef -) 50 mg IVPB Q6H-IV ALPA Last Admin: 05/04/18 09:45 Dose: 50 mg Octreotide Acetate 1,200 mcg/ (Dextrose) 500 mls @ 20.83 mls/hr IVPB ASDIR ALPA Last Admin: 05/03/18 17:23 Dose: 20.83 mls/hr Pantoprazole Sodium 80 mg/ (Sodium Chloride) 100 mls @ 10 mls/hr IVPB Q10H ALPA Last Admin: 05/04/18 05:55 Dose: Not Given Piperacillin Sod/Tazobactam (Sod 3.375 gm/ Dextrose) 50 mls @ 100 mls/hr IVPB Q6H-IV ALPA; Protocol Last Admin: 05/04/18 08:40 Dose: 100 mls/hr Norepinephrine Bitartrate 8, (000 mcg/ Dextrose) 500 mls @ 18.75 mls/hr IV TITR ALPA; Protocol Last Titration: 05/04/18 09:09 Dose: 20 mcg/min, 75 mls/hr Midazolam HCl 100 mg/ Sodium (Chloride) 100 mls @ 3 mls/hr IVPB TITR ALPA; Protocol Last Admin: 05/04/18 05:57 Dose: 15 mg/hr, 15 mls/hr Propofol (Diprivan -) 1,000,000 mcg in 100 mls @ 2.177 mls/hr IVPB TITR ALPA; Protocol Last Admin: 05/03/18 22:30 Dose: 20 mcg/kg/min, 8.709 mls/hr Fentanyl 500 mcg/ Dextrose 100 mls @ 5 mls/hr IVPB TITR ALPA; Protocol Last Admin: 05/04/18 00:39 Dose: 30 mcg/hr, 6 mls/hr Sodium Phosphate 30 mm/ (Dextrose) 260 mls @ 43.333 mls/hr IVPB ONCE ONE Stop: 05/04/18 14:59 Last Admin: 05/04/18 11:05 Dose: 43.333 mls/hr Vasopressin 50 units/ Sodium (Chloride) 100 mls @ 4 mls/hr IVPB ASDIR ALPA; Protocol Last Admin: 05/04/18 09:32 Dose: 2 units/hr, 4 mls/hr Dextrose/Sodium Chloride (Dextrose 5%-Normal Saline+20 Meq Kcl -) 20 meq in 1, 000 mls @ 75 mls/hr IV ASDIR ALPA Lorazepam (Ativan Injection -) 4 mg IVPUSH Q1H PRN PRN Reason: AGITATION Metoclopramide HCl (Reglan Injection -) 10 mg IVPB Q8H-IV ALPA Last Admin: 05/04/18 09:08 Dose: 10 mg Morphine Sulfate (Morphine Sulfate) 4 mg IVPUSH Q6H PRN PRN Reason: PAIN LEVEL 7 - 10 Mupirocin (Bactroban Ointment (For Decolonization) -) 1 applic NS BID [facility] Stop: 05/06/18 21:59 Last Admin: 05/04/18 09:15 Dose: 1 applic Thiamine HCl (Vitamin B1 Injection -) 250 mg IVPB DAILY [facility] - Objective Vital Signs: Vital Signs Temperature 99.4 F 05/04/18 10:30 Pulse Rate 103 H 05/04/18 10:30 Respiratory Rate 18 05/04/18 11:45 Blood Pressure 92/70 05/04/18 10:30 O2 Sat by Pulse Oximetry (%) 99 05/04/18 10:00 Constitutional: Yes: Other Cardiovascular: Yes: Tachycardia Respiratory: Yes: Intubated, Mechanically Ventilated Gastrointestinal: Yes: Soft, Hypoactive Bowel Sounds Musculoskeletal: Yes: WNL Extremities: Yes: Other Edema: LLE: Trace, RLE: Trace Neurological: Yes: Other Labs: CBC, BMP 05/04/18 05:30 05/04/18 05:30 INR, PTT INR 1.31 (0.83-1.09) H 05/04/18 05:30 Fibrinogen 386.0 mg/dL (238-498) 05/03/18 05:15 - ....Imaging Chest X-ray: Report Reviewed, Image Reviewed Assessment/Plan Acute GI bleed suspected Variceal in nature ETOH abuse Seizures HTN Anemia Suspected Septic Shock: source unclear Coagulopathy fevers plan continue abx as per icu egd when stable monitor for dts monitor for bleeding cc 40 min
[2018-05-04] MEDS: OCTREOTIDE ACETATE 1,200 MCG in DEXTROSE 5%-WATER - 488 ML IVPB SCH (14:44)
[2018-05-04] MEDS: PROPOFOL 1,000,000 MCG/100 ML VIAL IVPB SCH ×2 (15:22→21:17)
[2018-05-04 15:53] LABS: BASO % 0.1 % (0-2.0); EOS % 0.2 % (0-4.5); HEMATOCRIT 29.9 % (35.4-49); HEMOGLOBIN 9.5 GM/dL (11.7-16.9); LYMPH % 7.9 % (8-40); MCH 26.6 pg (25.7-33.7); MCHC 31.6 g/dl (32.0-35.9); MEAN CELL VOLUME 84.1 fl (80-96); MEAN PLT VOLUME 8.8 fl (7.5-11.1); MONO % 5.9 % (3.8-10.2); NEUT % 85.9 % (42.8-82.8); PLATELET COUNT 48 K/MM3 (134-434); RBC 3.56 M/mm3 (4.00-5.60); RDW 18.8 % (11.9-15.9); WHITE BLOOD COUNT 4.9 K/mm3 (4.0-10.0)
[2018-05-04 17:17] LABS: ALBUMIN 2.1 g/dl (3.4-5.0); ALK PHOS 72 U/L (45-117); ANION GAP 11 MMOL/L (8-16); BILIRUBIN,TOTAL 3.9 mg/dL (0.2-1); BLOOD UREA NITROGEN 10 mg/dL (7-18); CALCIUM 7.1 mg/dL (8.5-10.1); CHLORIDE 102 mmol/L (98-107); CO2 25 mmol/L (21-32); CREATININE 0.5 mg/dL (0.55-1.3); GLUCOSE,RANDOM 133 mg/dL (74-106); MAGNESIUM 2.1 mg/dL (1.8-2.4); PHOSPHOROUS 2.6 mg/dL (2.5-4.9); POTASSIUM 3.6 mmol/L (3.5-5.1); SGOT/AST 95 U/L (15-37); SGPT/ALT 41 U/L (13-61); SODIUM 138 mmol/L (136-145); TOT PROT 5.2 g/dl (6.4-8.2)
--- NOTE | 2018-05-04 17:35 | PN ---
Progress Note, Physician History of Present Illness: intubated and sedated on pressors - Current Medication List Current Medications: Active Medications Acetaminophen (Ofirmev Injection -) 1,000 mg IVPB Q6H PRN PRN Reason: FEVER Last Admin: 05/04/18 05:55 Dose: 1,000 mg Acetylcysteine (Mucomyst 20 Oral / Inh Use Only*) 300 mg NEB RQID ALPA Last Admin: 05/04/18 15:45 Dose: 300 mg Albuterol Sulfate (Ventolin 0.083% Nebulizer Soln -) 1 amp NEB Q4H PRN PRN Reason: SHORT OF BREATH/WHEEZING Albuterol Sulfate (Ventolin 0.083% Nebulizer Soln -) 1 amp NEB RQID ALPA Last Admin: 05/04/18 15:45 Dose: 1 amp Chlorhexidine Gluconate (Hibiclens For Decolonization -) 1 applic TP HS ALPA Last Admin: 05/03/18 21:46 Dose: 1 applic Hydrocortisone Sodium Succinate (Solu-Cortef -) 50 mg IVPB Q6H-IV [facility] Last Admin: 05/04/18 15:30 Dose: 50 mg Octreotide Acetate 1,200 mcg/ (Dextrose) 500 mls @ 20.83 mls/hr IVPB ASDIR ALPA Last Admin: 05/04/18 14:44 Dose: 20.83 mls/hr Pantoprazole Sodium 80 mg/ (Sodium Chloride) 100 mls @ 10 mls/hr IVPB Q10H [facility]PA Last Admin: 05/04/18 14:44 Dose: 10 mls/hr Piperacillin Sod/Tazobactam (Sod 3.375 gm/ Dextrose) 50 mls @ 100 mls/hr IVPB Q6H-IV [facility]; Protocol Last Admin: 05/04/18 15:21 Dose: 100 mls/hr Norepinephrine Bitartrate 8, (000 mcg/ Dextrose) 500 mls @ 18.75 mls/hr IV TITR ALPA; Protocol Last Titration: 05/04/18 15:30 Dose: 10 mcg/min, 37.5 mls/hr Midazolam HCl 100 mg/ Sodium (Chloride) 100 mls @ 3 mls/hr IVPB TITR [facility]; Protocol Last Admin: 05/04/18 14:45 Dose: 15 mg/hr, 15 mls/hr Propofol (Diprivan -) 1,000,000 mcg in 100 mls @ 2.177 mls/hr IVPB TITR [facility]; Protocol Last Admin: 05/04/18 15:22 Dose: 20 mcg/kg/min, 8.709 mls/hr Fentanyl 500 mcg/ Dextrose 100 mls @ 5 mls/hr IVPB TITR [facility]; Protocol Last Admin: 05/04/18 10:45 Dose: 30 mcg/hr, 6 mls/hr Vasopressin 50 units/ Sodium (Chloride) 100 mls @ 4 mls/hr IVPB ASDIR ALPA; Protocol Last Admin: 05/04/18 09:32 Dose: 2 units/hr, 4 mls/hr Dextrose/Sodium Chloride (Dextrose 5%-Normal Saline+20 Meq Kcl -) 20 meq in 1, 000 mls @ 75 mls/hr IV ASDIR ALPA Last Admin: 05/04/18 14:10 Dose: 75 mls/hr Lorazepam (Ativan Injection -) 4 mg IVPUSH Q1H PRN PRN Reason: AGITATION Metoclopramide HCl (Reglan Injection -) 10 mg IVPB Q8H-IV [facility] Last Admin: 05/04/18 09:08 Dose: 10 mg Morphine Sulfate (Morphine Sulfate) 4 mg IVPUSH Q6H PRN PRN Reason: PAIN LEVEL 7 - 10 Mupirocin (Bactroban Ointment (For Decolonization) -) 1 applic NS BID [facility] Stop: 05/06/18 21:59 Last Admin: 05/04/18 09:15 Dose: 1 applic Thiamine HCl (Vitamin B1 Injection -) 250 mg IVPB DAILY [facility] - Objective Vital Signs: Vital Signs Temperature 98.4 F 05/04/18 16:00 Pulse Rate 88 05/04/18 16:00 Respiratory Rate 18 05/04/18 15:45 Blood Pressure 115/83 05/04/18 16:00 O2 Sat by Pulse Oximetry (%) 99 05/04/18 10:00 Constitutional: Yes: No Distress HENT: Yes: Atraumatic Neck: Yes: Supple Cardiovascular: Yes: Regular Rate and Rhythm Respiratory: Yes: Rhonchi Gastrointestinal: Yes: Normal Bowel Sounds Extremities: Yes: WNL Edema: No Peripheral Pulses WNL: Yes Neurological: Yes: Other (intubated nd sedated) Labs: CBC, BMP 05/04/18 14:40 05/04/18 14:40 INR, PTT INR 1.31 (0.83-1.09) H 05/04/18 05:30 Fibrinogen 386.0 mg/dL (238-498) 05/03/18 05:15 Problem List - Problems (1) Hematemesis Assessment/Plan: no more intubated Code(s): K92.0 - HEMATEMESIS Qualifiers: Nausea presence: unspecified Qualified Code(s): K92.0 - Hematemesis (2) GI bleed Code(s): K92.2 - GASTROINTESTINAL HEMORRHAGE, UNSPECIFIED Qualifiers: GI bleed type/associated pathology: gastrointestinal hemorrhage with hematemesis Qualified Code(s): K92.0 - Hematemesis (3) Alcohol use disorder Assessment/Plan: intubated now Code(s): [id number] - (4) Sepsis Assessment/Plan: cxs sent on pressors intubated iv abx Code(s): A41.9 - SEPSIS, UNSPECIFIED ORGANISM (5) Septic shock Assessment/Plan: on pressors iv abx Code(s): A41.9 - SEPSIS, UNSPECIFIED ORGANISM; R65.21 - SEVERE SEPSIS WITH SEPTIC SHOCK
[2018-05-04 19:55] LABS: ANISOCYTOSIS 1+; MACROCYTOSIS 1+; TEAR DROP CELLS 1+
[2018-05-04 19:56] LABS: PLATELET ESTIMATE DECREASED
[2018-05-04] MEDS: CHLORHEXIDINE GLUCONATE 4% CLEANSER FOR DECOLONIZATION TP SCH (21:57)
[2018-05-04] MEDS ORDERED: chlordiazePOXIDE 5 MG CAPSULE PO SCH (23:00)
[2018-05-05] MEDS ORDERED: PIPERACILLIN/TAZOBACTAM 3.375 GM VIAL IVPB ONE ×4 (01:33→20:07)
[2018-05-05] MEDS ORDERED: DEXTROSE 5%-WATER - 50 ML IVPB ONE ×4 (01:33→20:07)
[2018-05-05] MEDS: METOCLOPRAMIDE HCL INJECTION 10 MG/2 ML VIAL IVPB SCH (01:38)
[2018-05-05] MEDS ORDERED: MIDAZOLAM 100 MG/100 ML MG IVPB ONE ×4 (01:49→23:41)
[2018-05-05] MEDS: HYDROCORTISONE SOD SUCCINATE 100 MG/2 ML VIAL IVPB SCH ×4 (02:02→20:31)
[2018-05-05] MEDS: PIPERACILLIN/TAZOB 3.375 GM 3.375 GM in DEXTROSE 5%-WATER - 50 ML IVPB SCH ×4 (02:03→20:31)
[2018-05-05] MEDS: MIDAZOLAM 100 MG in SODIUM CHLORIDE 100 ML IVPB SCH ×3 (02:05→16:47)
[2018-05-05] MEDS: PANTOPRAZOLE SODIUM 80 MG in SODIUM CHLORIDE 100 ML IVPB SCH (04:14)
[2018-05-05 05:46] LABS: BASO % 0.2 % (0-2.0); HEMATOCRIT 28.4 % (35.4-49); HEMOGLOBIN 9.1 GM/dL (11.7-16.9); LYMPH % 12.4 % (8-40); MCH 26.8 pg (25.7-33.7); MCHC 31.9 g/dl (32.0-35.9); MEAN CELL VOLUME 83.9 fl (80-96); MEAN PLT VOLUME 9.6 fl (7.5-11.1); MONO % 7.2 % (3.8-10.2); NEUT % 80.2 % (42.8-82.8); PLATELET COUNT 49 K/MM3 (134-434); RBC 3.39 M/mm3 (4.00-5.60); RDW 18.6 % (11.9-15.9); WHITE BLOOD COUNT 4.8 K/mm3 (4.0-10.0)
[2018-05-05 06:11] LABS: INR 1.27 (0.83-1.09)
[2018-05-05 06:13] LABS: ACTIVATED PTT 30.3 SECONDS (25.2-36.5)
[2018-05-05 06:16] LABS: ALBUMIN 1.9 g/dl (3.4-5.0); ALK PHOS 64 U/L (45-117); ANION GAP 7 MMOL/L (8-16); BILIRUBIN,TOTAL 3.2 mg/dL (0.2-1); BLOOD UREA NITROGEN 16 mg/dL (7-18); CHLORIDE 102 mmol/L (98-107); CO2 28 mmol/L (21-32); CREATININE 0.5 mg/dL (0.55-1.3); GLUCOSE,RANDOM 173 mg/dL (74-106); MAGNESIUM 1.8 mg/dL (1.8-2.4); PHOSPHOROUS 1.7 mg/dL (2.5-4.9); POTASSIUM 4.1 mmol/L (3.5-5.1); SGOT/AST 70 U/L (15-37); SGPT/ALT 37 U/L (13-61); SODIUM 138 mmol/L (136-145)
[2018-05-05 06:44] LABS: ANISOCYTOSIS 1+; MACROCYTOSIS 0; PLATELET ESTIMATE DECREASED; TEAR DROP CELLS 2+
[2018-05-05 07:01] LABS: ARTERIAL BLD GAS O2 SATURATION 97.7 % (90-98.9); ARTERIAL BLOOD GAS BASE EXCESS 1.3 meq/l (-2-2); ARTERIAL BLOOD GAS pH 7.37 (7.35-7.45)
[2018-05-05 07:10] LABS: ALLENS TEST POSITIVE
[2018-05-05] MEDS: NOREPINEPHRINE BITARTRATE 8,000 MCG in DEXTROSE 5%-WATER - 492 ML IV SCH (07:50)
[2018-05-05] MEDS: ACETYLCYSTEINE 20% 200MG/ML 4 ML VIAL *FOR ORAL / INH USE ONLY NEB SCH (07:53)
[2018-05-05] MEDS: ALBUTEROL SO4 0.083% IH SOL 2.5 MG/3 ML VIAL.NEB. NEB SCH ×4 (07:54→20:50)
--- NOTE | 2018-05-05 08:01 | PN ---
Physical Exam: SUBJECTIVE: Patient seen and examined in the ICU. remains intubated and sedated on propofol and versed. Off levophed gtt but still on vaso. EGD and Head CT deferred until pt more stable. afebrile overnight. tube feeds started OBJECTIVE: Vital Signs Period Temp Pulse Resp BP Sys/Boykin Pulse Ox Last 24 Hr 97.8 F-100.8 F 67-122 11-21 83-124/58-95 99-99 GENERAL: intubated sedated HEENT: NCAT, ETT, OGT NECK: supple, R IJ LUNGS: crackles b/l HEART:tachy RR, normal S1 and S2 without m/r/g ABDOMEN: Soft, ND normoactive bowel sounds MUSCULOSKELETAL: No bony deformities or tenderness. UPPER EXTREMITIES: 2+ pulses, warm, well-perfused. No cyanosis. No clubbing. Cap refill <2 seconds. No peripheral edema. LOWER EXTREMITIES: 2+ pulses, warm, well-perfused. No calf tenderness. No peripheral edema. NEUROLOGICAL: intubated sedated +cough reflex SKIN: Warm, dry, normal turgor, no rashes or lesions noted. Laboratory Results - last 24 hr 05/01/18 05/04/18 05/04/18 16:45 05:30 14:40 WBC 4.9 RBC 3.56 L Hgb 9.5 L Hct 29.9 L MCV 84.1 MCH 26.6 MCHC 31.6 L RDW 18.8 H Plt Count 48 L D MPV 8.8 Absolute Neuts (auto) 4.2 Neutrophils % 85.9 H Neutrophils % (Manual) 81.1 80.0 Band Neutrophils % 5.6 5.0 Lymphocytes % 7.9 L Lymphocytes % (Manual) 7.8 L 8.0 Monocytes % 5.9 Monocytes % (Manual) 2 L 5 D Eosinophils % 0.2 Eosinophils % (Manual) 1.1 D 2.0 D Basophils % 0.1 Basophils % (Manual) 0.0 Myelocytes % (Man) 0 D Promyelocytes % (Man) 0 Blast Cells % (Manual) 0 Nucleated RBC % 0 Metamyelocytes 1 D Hypochromia 0 1+ Platelet Estimate Decreased Decreased Platelet Comment No clumping noted Polychromasia 0 Poikilocytosis 2+ 1+ Anisocytosis 1+ 1+ Microcytosis 1+ 1+ Macrocytosis 1+ 1+ Spherocytes Tear Drop Cells 1+ 1+ PT with INR INR PTT (Actin FS) Puncture Site ABG pH ABG pCO2 at Pt Temp ABG pO2 at Pt Temp ABG HCO3 ABG O2 Sat (Measured) ABG O2 Content ABG Base Excess Leighton Test O2 Delivery Device Oxygen Flow Rate Mechanical Rate PEEP Sodium Potassium Chloride Carbon Dioxide Anion Gap BUN Creatinine Creat Clearance w eGFR Random Glucose Lactic Acid Calcium Phosphorus Magnesium Total Bilirubin AST ALT Alkaline Phosphatase Total Protein Albumin Blood Type Antibody Screen Crossmatch See Detail 05/04/18 05/04/18 05/04/18 14:40 14:40 16:00 WBC RBC Hgb Hct MCV MCH MCHC RDW Plt Count MPV Absolute Neuts (auto) Neutrophils % Neutrophils % (Manual) Band Neutrophils % Lymphocytes % Lymphocytes % (Manual) Monocytes % Monocytes % (Manual) Eosinophils % Eosinophils % (Manual) Basophils % Basophils % (Manual) Myelocytes % (Man) Promyelocytes % (Man) Blast Cells % (Manual) Nucleated RBC % Metamyelocytes Hypochromia Platelet Estimate Platelet Comment Polychromasia Poikilocytosis Anisocytosis Microcytosis Macrocytosis Spherocytes Tear Drop Cells PT with INR INR PTT (Actin FS) Puncture Site ABG pH ABG pCO2 at Pt Temp ABG pO2 at Pt Temp ABG HCO3 ABG O2 Sat (Measured) ABG O2 Content ABG Base Excess Leighton Test O2 Delivery Device Oxygen Flow Rate Mechanical Rate PEEP Sodium 138 Potassium 3.6 Chloride 102 Carbon Dioxide 25 Anion Gap 11 BUN 10 Creatinine 0.5 L Creat Clearance w eGFR > 60 Random Glucose 133 H Lactic Acid 3.3 H* Calcium 7.1 L Phosphorus 2.6 Magnesium 2.1 Total Bilirubin 3.9 H AST 95 H ALT 41 Alkaline Phosphatase 72 Total Protein 5.2 L Albumin 2.1 L Blood Type A POSITIVE Antibody Screen Negative Crossmatch 05/05/18 05/05/18 05/05/18 05:30 05:30 05:30 WBC 4.8 RBC 3.39 L Hgb 9.1 L Hct 28.4 L MCV 83.9 MCH 26.8 MCHC 31.9 L RDW 18.6 H Plt Count 49 L MPV 9.6 Absolute Neuts (auto) 3.9 Neutrophils % 80.2 Neutrophils % (Manual) 72.7 Band Neutrophils % 0.0 Lymphocytes % 12.4 D Lymphocytes % (Manual) 11.1 D Monocytes % 7.2 Monocytes % (Manual) 5 Eosinophils % 0.0 D Eosinophils % (Manual) 8.1 H D Basophils % 0.2 Basophils % (Manual) 0.0 Myelocytes % (Man) 0 Promyelocytes % (Man) 1 D Blast Cells % (Manual) 0 Nucleated RBC % 0 Metamyelocytes 2 D Hypochromia 0 Platelet Estimate Decreased Platelet Comment Polychromasia 0 Poikilocytosis 3+ Anisocytosis 1+ Microcytosis 1+ Macrocytosis 0 Spherocytes 1+ Tear Drop Cells 2+ PT with INR 15.00 H INR 1.27 H PTT (Actin FS) 30.3 Puncture Site ABG pH ABG pCO2 at Pt Temp ABG pO2 at Pt Temp ABG HCO3 ABG O2 Sat (Measured) ABG O2 Content ABG Base Excess Leighton Test O2 Delivery Device Oxygen Flow Rate Mechanical Rate PEEP Sodium 138 Potassium 4.1 Chloride 102 Carbon Dioxide 28 Anion Gap 7 L BUN 16 Creatinine 0.5 L Creat Clearance w eGFR > 60 Random Glucose 173 H Lactic Acid Calcium 7.0 L Phosphorus 1.7 L Magnesium 1.8 Total Bilirubin 3.2 H AST 70 H ALT 37 Alkaline Phosphatase 64 Total Protein 5.0 L Albumin 1.9 L Blood Type Antibody Screen Crossmatch 05/05/18 06:50 WBC RBC Hgb Hct MCV MCH MCHC RDW Plt Count MPV Absolute Neuts (auto) Neutrophils % Neutrophils % (Manual) Band Neutrophils % Lymphocytes % Lymphocytes % (Manual) Monocytes % Monocytes % (Manual) Eosinophils % Eosinophils % (Manual) Basophils % Basophils % (Manual) Myelocytes % (Man) Promyelocytes % (Man) Blast Cells % (Manual) Nucleated RBC % Metamyelocytes Hypochromia Platelet Estimate Platelet Comment Polychromasia Poikilocytosis Anisocytosis Microcytosis Macrocytosis Spherocytes Tear Drop Cells PT with INR INR PTT (Actin FS) Puncture Site Right radial ABG pH 7.37 ABG pCO2 at Pt Temp 46.0 H ABG pO2 at Pt Temp 103.0 H ABG HCO3 26.2 H ABG O2 Sat (Measured) 97.7 ABG O2 Content 12.5 L ABG Base Excess 1.3 Leighton Test Positive O2 Delivery Device Room air Oxygen Flow Rate 21% Mechanical Rate No PEEP 0.0 Sodium Potassium Chloride Carbon Dioxide Anion Gap BUN Creatinine Creat Clearance w eGFR Random Glucose Lactic Acid Calcium Phosphorus Magnesium Total Bilirubin AST ALT Alkaline Phosphatase Total Protein Albumin Blood Type Antibody Screen Crossmatch Active Medications Generic Name Dose Route Start Last Admin Trade Name Freq PRN Reason Stop Dose Admin Acetaminophen 1,000 mg 05/03/18 17:31 05/04/18 05:55 Ofirmev Injection - IVPB 1,000 mg Q6H PRN Administration FEVER Acetylcysteine 300 mg 05/04/18 08:00 05/05/18 07:53 Mucomyst 20 Oral / Inh Use Only* NEB 300 mg RQID ALPA Administration Albuterol Sulfate 1 amp 05/04/18 07:38 Ventolin 0.083% Nebulizer Soln - NEB Q4H PRN SHORT OF BREATH/WHEEZING Albuterol Sulfate 1 amp 05/04/18 08:30 05/05/18 07:54 Ventolin 0.083% Nebulizer Soln - NEB 1 amp RQID ALPA Administration Chlorhexidine Gluconate 1 applic 05/01/18 22:00 05/04/18 21:57 Hibiclens For Decolonization - TP 1 applic HS ALPA Administration Hydrocortisone Sodium Succinate 50 mg 05/04/18 09:15 05/05/18 02:02 Solu-Cortef - IVPB 50 mg Q6H-IV ALPA Administration Octreotide Acetate 1,200 mcg/ 500 mls @ 20.83 mls/hr 05/01/18 15:00 05/04/18 14:44 Dextrose IVPB 20.83 mls/hr ASDIR ALPA Administration 50 MCG/HR Pantoprazole Sodium 80 mg/ 100 mls @ 10 mls/hr 05/01/18 17:00 05/05/18 04:14 Sodium Chloride IVPB Not Given Q10H ALPA 8 MG/HR Piperacillin Sod/Tazobactam 50 mls @ 100 mls/hr 05/01/18 21:45 05/05/18 02:03 Sod 3.375 gm/ Dextrose IVPB 100 mls/hr Q6H-IV ALPA Administration Protocol Norepinephrine Bitartrate 8, 500 mls @ 18.75 mls/hr 05/02/18 06:30 05/05/18 07:50 000 mcg/ Dextrose IV Not Given TITR ALPA Protocol 5 MCG/MIN Midazolam HCl 100 mg/ Sodium 100 mls @ 3 mls/hr 05/02/18 15:15 05/05/18 02:05 Chloride IVPB 15 mg/hr TITR ALPA 15 mls/hr Administration Protocol 3 MG/HR Propofol 1,000,000 mcg in 100 mls @ 2.177 mls/hr 05/02/18 15:15 05/04/18 21: 17 Diprivan - IVPB 20 mcg/kg/min TITR ALPA 8.709 mls/hr Administration Protocol 5 MCG/KG/MIN Fentanyl 500 mcg/ Dextrose 100 mls @ 5 mls/hr 05/03/18 10:45 05/04/18 10:45 IVPB 30 mcg/hr TITR ALPA 6 mls/hr Administration Protocol 25 MCG/HR Vasopressin 50 units/ Sodium 100 mls @ 4 mls/hr 05/04/18 09:15 05/04/18 09:32 Chloride IVPB 2 units/hr ASDIR ALPA 4 mls/hr Administration Protocol 2 UNITS/HR Sodium Phosphate 30 mm/ 260 mls @ 62.5 mls/hr 05/05/18 09:00 Dextrose IVPB 05/05/18 13:09 ONCE ONE Multivitamins/Minerals/Vitamin C 1 tab 05/05/18 10:00 Tab-A-Vit - PO DAILY [facility] Mupirocin 1 applic 05/01/18 22:00 05/04/18 21:57 Bactroban Ointment (For Decolonization) - NS 05/06/18 21:59 1 applic BID [facility] Administration Thiamine HCl 250 mg 05/05/18 10:00 Vitamin B1 Injection - IVPB DAILY [facility] ASSESSMENT/PLAN: 53yo m with PMH of GI bleed, EtOH abuse, seizures?, HTN, anemia, varicies, presenting to ICU w/ acute GIB bleed, likely upper and etoh abuse. Now found w/ septic shock unclear etiology, and in DTs. NEURO DTs 05/02/18, last drink 1pt of Vodka 05/01/18? intubated sedated on propofol, versed gtt, fentanyl gtt Utox - neg s/p banana bag c/w Thiamin 250 qd MVI detox consult seizures? - questionable hx of seizures. was evaluated by Neuro on prior admission in 02/2018. was given keppra but it was stopped as seizure was likely caused by alcohol use. Patient at that time indicated he has always had seizures only in setting of ETOH withdrawl. Pt not having any seizure like activity on this admission. Will cont to monitor. Fall?- Head CT when hemodynamically stable Cardiac/PULM/GI SVT?/sinus tach 2/2 sepsis 05/01/18 - HR was in 170s but unresponsive to adenosine, responded to Lopressor Echo - nl, EF 60% cardio consult R IJ central line 05/01/18, off levophed gtt wean off vasopressin Hold IVF Lasix once off pressors, CXR worsened today appears to be have ARDS and fluid overload. stress steroids, start taper ulises maintain MAP > 65 O2 as needed not a candidate for weaning at this time sedate for vent synchrony ARDS vent strategy monitor H/H s/p 1 u prbc in ED. transfuse if <7 or significant drop in Hgb c/w active GIB Hold IVF pain ctl reglan - nausea EKG: sinus tachycardia. no ST changes, Qtc 512 on admission monitor Qtc cxr - worsening L pulm and pleural changes, may be source of infx, CAP vs aspiration PNA elevate head of bed, aspiration precautions FOBT pos protonix switch to IVP dc octreotide - hx varices?, may be source of bleed. H/H stable and has been on for 72 hrs. also starting tube feeds GI consult underwent EGD 07/[address] Hester that revealed severe erosive esophagitis. elevated lactic - trend lactic acid EGD deferred because of Septic shock ID septic shock, unclear etiology, w/ fevers (Tmax 105) and R IJ placement. 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 UA - 1+ ketones, blood , proteins ucx, bcx, legionella, flu neg rpt ucx, bcx neg HEME Neuropenia and thrombocytopenia coagulopathy, likely related to liver disease, alcohol abuse, and Sepsis unclear etiology, possibly 2/2 PNA fibrinogen nl heme consult vit k 10mg sq x1 dose 05/02/18 vit K 5 sq 05/03/18 Ideally would like to maintain platelets > 80K-100K and if feasible INR@1.2 transfuse plt and FFP as needed Iron studies reveal Iron deficiency as well as anemia of chronic disease due to low TIBC and elevated ferritin. RENAL Anion Gap acidosis/lactic acidosis w/ multiple lyte abnl consistent w/ ETOH ketoacidosis - hypo K, Mg, Ca, Cl - improving. Gap appears to have closed, lactic still elevated but downtrending HU- likely pre renal - resolved monitor Cr, UOP s/p 7-9 L IVF Hold IVF Lasix once off pressors yeung FEN Hold IVF, Lasix once off pressors replete prn tube feeds ppx SCD protonix switch to IVP BID Dispo: ICU monitoring EGD deferred because of Septic shock Head CT when hemodynamically stable Visit type - Emergency Visit Emergency Visit: Yes ED Registration Date: 05/01/18 Care time: The patient presented to the Emergency Department on the above date and was hospitalized for further evaluation of their emergent condition. - New Patient This patient is new to me today: Yes Date on this admission: 05/05/18 - Critical Care Critical Care patient: Yes Total Critical Care Time (in minutes): 38 Critical Care Statement: The care of this patient involved high complexity decision making to prevent further life threatening deterioration of the patient 's condition and/or to evaluate & treat vital organ system(s) failure or risk of failure.
[2018-05-05] MEDS ORDERED: PT OWN MED DRAWER 7, Y5N ONE ×2 (08:21→13:33)
[2018-05-05] MEDS: VASOPRESSIN 50 UNITS in SODIUM CHLORIDE 97.5 ML IVPB SCH ×2 (08:28→10:45)
[2018-05-05] MEDS: PANTOPRAZOLE SODIUM 40 MG VIAL IVPUSH SCH ×2 (08:59→21:50)
[2018-05-05] MEDS: THIAMINE HCL 200 MG/2 ML VIAL IVPB SCH (09:00)
[2018-05-05] MEDS ORDERED: SODIUM PHOSPHATE - 30 MM in DEXTROSE 5%-WATER - 250 ML IVPB ONE (09:00)
[2018-05-05] MEDS ORDERED: MULTIVITAMINS (DAILY MVI) TABLET (FP) PO SCH (10:00)
[2018-05-05] MEDS: FENTANYL INJECTION 500 MCG in DEXTROSE 5%-WATER - 90 ML IVPB SCH ×2 (10:46→13:35)
[2018-05-05] MEDS: MUPIROCIN 2% TOPICAL OINTMENT FOR DECOLONIZATION NS SCH ×2 (10:47→21:50)
--- NOTE | 2018-05-05 11:16 | PN ---
Teaching Attending Note Name of Resident: Dre Martinez ATTENDING PHYSICIAN STATEMENT I saw and evaluated the patient. I reviewed the resident's note and discussed the case with the resident. I agree with the resident's findings and plan as documented. SUBJECTIVE: Patient seen and examined in the ICU. Intubated and sedated. Off NE and only on Vasopressin 2 units for hemodynamic support. No active bleeding noted. Intake & Output 05/02/18 05/03/18 05/04/18 05/05/18 23:59 23:59 23:59 23:59 Intake Total 76184 10770.6 6597 771 Output Total 5175 1450 1350 250 Balance 4890 86692.6 5247 521 Weight 160 lb 189 lb 216 lb 7.903 oz 220 lb 14.451 oz Last Vital Signs Temp Pulse Resp BP Pulse Ox 99.4 F 92 H 20 102/69 99 05/05/18 10:00 05/05/18 10:00 05/05/18 10:00 05/05/18 10:00 05/05/18 07:00 Active Medications Acetaminophen (Ofirmev Injection -) 1,000 mg IVPB Q6H PRN PRN Reason: FEVER Last Admin: 05/04/18 05:55 Dose: 1,000 mg Albuterol Sulfate (Ventolin 0.083% Nebulizer Soln -) 1 amp NEB Q4H PRN PRN Reason: SHORT OF BREATH/WHEEZING Albuterol Sulfate (Ventolin 0.083% Nebulizer Soln -) 1 amp NEB RQID ALPA Last Admin: 05/05/18 07:54 Dose: 1 amp Chlorhexidine Gluconate (Hibiclens For Decolonization -) 1 applic TP HS ALPA Last Admin: 05/04/18 21:57 Dose: 1 applic Hydrocortisone Sodium Succinate (Solu-Cortef -) 50 mg IVPB Q6H-IV ALPA Last Admin: 05/05/18 08:30 Dose: 50 mg Octreotide Acetate 1,200 mcg/ (Dextrose) 500 mls @ 20.83 mls/hr IVPB ASDIR ALPA Last Admin: 05/04/18 14:44 Dose: 20.83 mls/hr Piperacillin Sod/Tazobactam (Sod 3.375 gm/ Dextrose) 50 mls @ 100 mls/hr IVPB Q6H-IV ALPA; Protocol Last Admin: 05/05/18 08:26 Dose: 100 mls/hr Norepinephrine Bitartrate 8, (000 mcg/ Dextrose) 500 mls @ 18.75 mls/hr IV TITR ALPA; Protocol Last Admin: 05/05/18 07:50 Dose: Not Given Midazolam HCl 100 mg/ Sodium (Chloride) 100 mls @ 3 mls/hr IVPB TITR ALPA; Protocol Last Admin: 05/05/18 08:58 Dose: 10 mg/hr, 10 mls/hr Propofol (Diprivan -) 1,000,000 mcg in 100 mls @ 2.177 mls/hr IVPB TITR ALPA; Protocol Last Admin: 05/04/18 21:17 Dose: 20 mcg/kg/min, 8.709 mls/hr Fentanyl 500 mcg/ Dextrose 100 mls @ 5 mls/hr IVPB TITR ALPA; Protocol Last Admin: 05/05/18 10:46 Dose: Not Given Vasopressin 50 units/ Sodium (Chloride) 100 mls @ 4 mls/hr IVPB ASDIR ALPA; Protocol Last Admin: 05/05/18 10:45 Dose: Not Given Sodium Phosphate 30 mm/ (Dextrose) 260 mls @ 62.5 mls/hr IVPB ONCE ONE Stop: 05/05/18 13:09 Last Admin: 05/05/18 10:19 Dose: 62.5 mls/hr Multivitamins/Minerals/Vitamin C (Tab-A-Vit -) 1 tab PO DAILY [facility] Last Admin: 05/05/18 10:47 Dose: Not Given Mupirocin (Bactroban Ointment (For Decolonization) -) 1 applic NS BID [facility] Stop: 05/06/18 21:59 Last Admin: 05/05/18 10:47 Dose: 1 applic Pantoprazole Sodium (Protonix Iv) 40 mg IVPUSH BID [facility] Last Admin: 05/05/18 08:59 Dose: 40 mg Thiamine HCl (Vitamin B1 Injection -) 250 mg IVPB DAILY [facility] Last Admin: 05/05/18 09:00 Dose: 250 mg GENERAL: Intubated and sedated HEAD: NCAT EYES: sclera anicteric, conjunctiva clear. No lid lag. EARS, NOSE, THROAT: Ears normal, nares patent, oropharynx w/ dry blood. MMM NECK: Normal range of motion, supple without lymphadenopathy, JVD, or masses. LUNGS: bilateral rhonchi HEART:tachy RR, normal S1 and S2 without murmur, rub or gallop. ABDOMEN: Soft, ND TTP diffuse , normoactive bowel sounds MUSCULOSKELETAL: Normal range of motion at all joints. No bony deformities or tenderness. UPPER EXTREMITIES: 2+ pulses, warm, well-perfused. No cyanosis. No clubbing. Cap refill <2 seconds. No peripheral edema. LOWER EXTREMITIES: 2+ pulses, warm, well-perfused. No calf tenderness. No peripheral edema. NEUROLOGICAL: Sedated SKIN: Warm, dry, normal turgor, no rashes or lesions noted. Laboratory Results - last 24 hr 05/01/18 05/04/18 05/04/18 16:45 05:30 14:40 WBC 4.9 RBC 3.56 L Hgb 9.5 L Hct 29.9 L MCV 84.1 MCH 26.6 MCHC 31.6 L RDW 18.8 H Plt Count 48 L D MPV 8.8 Absolute Neuts (auto) 4.2 Neutrophils % 85.9 H Neutrophils % (Manual) 81.1 80.0 Band Neutrophils % 5.6 5.0 Lymphocytes % 7.9 L Lymphocytes % (Manual) 7.8 L 8.0 Monocytes % 5.9 Monocytes % (Manual) 2 L 5 D Eosinophils % 0.2 Eosinophils % (Manual) 1.1 D 2.0 D Basophils % 0.1 Basophils % (Manual) 0.0 Myelocytes % (Man) 0 D Promyelocytes % (Man) 0 Blast Cells % (Manual) 0 Nucleated RBC % 0 Metamyelocytes 1 D Hypochromia 0 1+ Platelet Estimate Decreased Decreased Platelet Comment No clumping noted Polychromasia 0 Poikilocytosis 2+ 1+ Anisocytosis 1+ 1+ Microcytosis 1+ 1+ Macrocytosis 1+ 1+ Spherocytes Tear Drop Cells 1+ 1+ PT with INR INR PTT (Actin FS) Puncture Site ABG pH ABG pCO2 at Pt Temp ABG pO2 at Pt Temp ABG HCO3 ABG O2 Sat (Measured) ABG O2 Content ABG Base Excess [place]on Test O2 Delivery Device Oxygen Flow Rate Mechanical Rate PEEP Sodium Potassium Chloride Carbon Dioxide Anion Gap BUN Creatinine Creat Clearance w eGFR Random Glucose Lactic Acid Calcium Phosphorus Magnesium Total Bilirubin AST ALT Alkaline Phosphatase Total Protein Albumin Blood Type Antibody Screen Crossmatch See Detail 05/04/18 05/04/18 05/04/18 14:40 14:40 16:00 WBC RBC Hgb Hct MCV MCH MCHC RDW Plt Count MPV Absolute Neuts (auto) Neutrophils % Neutrophils % (Manual) Band Neutrophils % Lymphocytes % Lymphocytes % (Manual) Monocytes % Monocytes % (Manual) Eosinophils % Eosinophils % (Manual) Basophils % Basophils % (Manual) Myelocytes % (Man) Promyelocytes % (Man) Blast Cells % (Manual) Nucleated RBC % Metamyelocytes Hypochromia Platelet Estimate Platelet Comment Polychromasia Poikilocytosis Anisocytosis Microcytosis Macrocytosis Spherocytes Tear Drop Cells PT with INR INR PTT (Actin FS) Puncture Site ABG pH ABG pCO2 at Pt Temp ABG pO2 at Pt Temp ABG HCO3 ABG O2 Sat (Measured) ABG O2 Content ABG Base Excess [place]on Test O2 Delivery Device Oxygen Flow Rate Mechanical Rate PEEP Sodium 138 Potassium 3.6 Chloride 102 Carbon Dioxide 25 Anion Gap 11 BUN 10 Creatinine 0.5 L Creat Clearance w eGFR > 60 Random Glucose 133 H Lactic Acid 3.3 H* Calcium 7.1 L Phosphorus 2.6 Magnesium 2.1 Total Bilirubin 3.9 H AST 95 H ALT 41 Alkaline Phosphatase 72 Total Protein 5.2 L Albumin 2.1 L Blood Type A POSITIVE Antibody Screen Negative Crossmatch 05/05/18 05/05/18 05/05/18 05:30 05:30 05:30 WBC 4.8 RBC 3.39 L Hgb 9.1 L Hct 28.4 L MCV 83.9 MCH 26.8 MCHC 31.9 L RDW 18.6 H Plt Count 49 L MPV 9.6 Absolute Neuts (auto) 3.9 Neutrophils % 80.2 Neutrophils % (Manual) 72.7 Band Neutrophils % 0.0 Lymphocytes % 12.4 D Lymphocytes % (Manual) 11.1 D Monocytes % 7.2 Monocytes % (Manual) 5 Eosinophils % 0.0 D Eosinophils % (Manual) 8.1 H D Basophils % 0.2 Basophils % (Manual) 0.0 Myelocytes % (Man) 0 Promyelocytes % (Man) 1 D Blast Cells % (Manual) 0 Nucleated RBC % 0 Metamyelocytes 2 D Hypochromia 0 Platelet Estimate Decreased Platelet Comment Polychromasia 0 Poikilocytosis 3+ Anisocytosis 1+ Microcytosis 1+ Macrocytosis 0 Spherocytes 1+ Tear Drop Cells 2+ PT with INR 15.00 H INR 1.27 H PTT (Actin FS) 30.3 Puncture Site ABG pH ABG pCO2 at Pt Temp ABG pO2 at Pt Temp ABG HCO3 ABG O2 Sat (Measured) ABG O2 Content ABG Base Excess Le[place]on Test O2 Delivery Device Oxygen Flow Rate Mechanical Rate PEEP Sodium 138 Potassium 4.1 Chloride 102 Carbon Dioxide 28 Anion Gap 7 L BUN 16 Creatinine 0.5 L Creat Clearance w eGFR > 60 Random Glucose 173 H Lactic Acid Calcium 7.0 L Phosphorus 1.7 L Magnesium 1.8 Total Bilirubin 3.2 H AST 70 H ALT 37 Alkaline Phosphatase 64 Total Protein 5.0 L Albumin 1.9 L Blood Type Antibody Screen Crossmatch 05/05/18 05/05/18 05:30 06:50 WBC RBC Hgb Hct MCV MCH MCHC RDW Plt Count MPV Absolute Neuts (auto) Neutrophils % Neutrophils % (Manual) Band Neutrophils % Lymphocytes % Lymphocytes % (Manual) Monocytes % Monocytes % (Manual) Eosinophils % Eosinophils % (Manual) Basophils % Basophils % (Manual) Myelocytes % (Man) Promyelocytes % (Man) Blast Cells % (Manual) Nucleated RBC % Metamyelocytes Hypochromia Platelet Estimate Platelet Comment Polychromasia Poikilocytosis Anisocytosis Microcytosis Macrocytosis Spherocytes Tear Drop Cells PT with INR INR PTT (Actin FS) Puncture Site Right radial ABG pH 7.37 ABG pCO2 at Pt Temp 46.0 H ABG pO2 at Pt Temp 103.0 H ABG HCO3 26.2 H ABG O2 Sat (Measured) 97.7 ABG O2 Content 12.5 L ABG Base Excess 1.3 [place]on Test Positive O2 Delivery Device Room air Oxygen Flow Rate 21% Mechanical Rate No PEEP 0.0 Sodium Potassium Chloride Carbon Dioxide Anion Gap BUN Creatinine Creat Clearance w eGFR Random Glucose Lactic Acid 3.0 H* Calcium Phosphorus Magnesium Total Bilirubin AST ALT Alkaline Phosphatase Total Protein Albumin Blood Type Antibody Screen Crossmatch ASSESSMENT/PLAN: Acute GI bleed suspected Variceal in nature ETOH abuse Seizures HTN Anemia Suspected Septic Shock: source unclear Coagulopathy ARDS ARDS vent strategy Hold IVF Wean Vasopressin Lasix once off pressors Strict I & O ABX per ID Normal transfusion thresholds O2 as needed Thiamine MVI Pain control PPI Enteral feeds ICU monitoring Dr Davalos Critical care time spent in reviewing chart, evaluating patient and formulating plan - 36 minutes.
[2018-05-05] MEDS ORDERED: FUROSEMIDE 40 MG/4 ML INJECTABLE VIAL IVPUSH ONE (11:40)
--- NOTE | 2018-05-05 13:19 | PN ---
Progress Note, Physician History of Present Illness: intubated and sedated weaning off of pressors - Current Medication List Current Medications: Active Medications Acetaminophen (Ofirmev Injection -) 1,000 mg IVPB Q6H PRN PRN Reason: FEVER Last Admin: 05/04/18 05:55 Dose: 1,000 mg Albuterol Sulfate (Ventolin 0.083% Nebulizer Soln -) 1 amp NEB Q4H PRN PRN Reason: SHORT OF BREATH/WHEEZING Albuterol Sulfate (Ventolin 0.083% Nebulizer Soln -) 1 amp NEB RQID [facility] Last Admin: 05/05/18 11:23 Dose: 1 amp Chlorhexidine Gluconate (Hibiclens For Decolonization -) 1 applic TP HS [facility]PA Last Admin: 05/04/18 21:57 Dose: 1 applic Hydrocortisone Sodium Succinate (Solu-Cortef -) 50 mg IVPB Q6H-IV [facility] Last Admin: 05/05/18 08:30 Dose: 50 mg Piperacillin Sod/Tazobactam (Sod 3.375 gm/ Dextrose) 50 mls @ 100 mls/hr IVPB Q6H-IV [facility]; Protocol Last Admin: 05/05/18 08:26 Dose: 100 mls/hr Midazolam HCl 100 mg/ Sodium (Chloride) 100 mls @ 3 mls/hr IVPB TITR [facility]; Protocol Last Admin: 05/05/18 08:58 Dose: 10 mg/hr, 10 mls/hr Propofol (Diprivan -) 1,000,000 mcg in 100 mls @ 2.177 mls/hr IVPB TITR [facility]; Protocol Last Admin: 05/04/18 21:17 Dose: 20 mcg/kg/min, 8.709 mls/hr Fentanyl 500 mcg/ Dextrose 100 mls @ 5 mls/hr IVPB TITR [facility]; Protocol Last Admin: 05/05/18 10:46 Dose: Not Given Mupirocin (Bactroban Ointment (For Decolonization) -) 1 applic NS BID [facility] Stop: 05/06/18 21:59 Last Admin: 05/05/18 10:47 Dose: 1 applic Pantoprazole Sodium (Protonix Iv) 40 mg IVPUSH BID [facility] Last Admin: 05/05/18 08:59 Dose: 40 mg Thiamine HCl (Vitamin B1 Injection -) 250 mg IVPB DAILY [facility] Last Admin: 05/05/18 09:00 Dose: 250 mg - Objective Vital Signs: Vital Signs Temperature 99.4 F 05/05/18 10:00 Pulse Rate 96 H 05/05/18 12:00 Respiratory Rate 16 05/05/18 12:00 Blood Pressure 110/73 05/05/18 12:00 O2 Sat by Pulse Oximetry (%) 99 05/05/18 07:00 Constitutional: Yes: No Distress HENT: Yes: Atraumatic Neck: Yes: Supple Cardiovascular: Yes: Regular Rate and Rhythm Respiratory: Yes: Rhonchi Gastrointestinal: Yes: Normal Bowel Sounds Extremities: Yes: WNL Edema: LLE: Trace, RLE: Trace Peripheral Pulses WNL: Yes Neurological: Yes: Other (intubated and sedated) Labs: CBC, BMP 05/05/18 05:30 05/05/18 05:30 INR, PTT INR 1.27 (0.83-1.09) H 05/05/18 05:30 Fibrinogen 386.0 mg/dL (238-498) 05/03/18 05:15 Problem List - Problems (1) Hematemesis Assessment/Plan: no more intubated Code(s): K92.0 - HEMATEMESIS Qualifiers: Nausea presence: unspecified Qualified Code(s): K92.0 - Hematemesis (2) GI bleed Code(s): K92.2 - GASTROINTESTINAL HEMORRHAGE, UNSPECIFIED Qualifiers: GI bleed type/associated pathology: gastrointestinal hemorrhage with hematemesis Qualified Code(s): K92.0 - Hematemesis (3) Alcohol use disorder Assessment/Plan: intubated now Code(s): [id number] - (4) Sepsis Assessment/Plan: cxs sent on pressors intubated iv abx Code(s): A41.9 - SEPSIS, UNSPECIFIED ORGANISM (5) Septic shock Code(s): A41.9 - SEPSIS, UNSPECIFIED ORGANISM; R65.21 - SEVERE SEPSIS WITH SEPTIC SHOCK Assessment/Plan cc time 35 min
[2018-05-05] MEDS ORDERED: fentaNYL CITRATE 250 MCG/5 ML VIAL ONE (13:32)
[2018-05-05] MEDS: MULTIVIT-MINERALS ORAL LIQUID PO SCH (13:56)
--- NOTE | 2018-05-05 14:38 | PN ---
Progress Note, Physician History of Present Illness: Sedated and intubated on pressor support, too unstable for EGD. - Current Medication List Current Medications: Active Medications Acetaminophen (Ofirmev Injection -) 1,000 mg IVPB Q6H PRN PRN Reason: FEVER Last Admin: 05/04/18 05:55 Dose: 1,000 mg Albuterol Sulfate (Ventolin 0.083% Nebulizer Soln -) 1 amp NEB Q4H PRN PRN Reason: SHORT OF BREATH/WHEEZING Albuterol Sulfate (Ventolin 0.083% Nebulizer Soln -) 1 amp NEB RQID [facility] Last Admin: 05/05/18 11:23 Dose: 1 amp Chlorhexidine Gluconate (Hibiclens For Decolonization -) 1 applic TP HS [facility] Last Admin: 05/04/18 21:57 Dose: 1 applic Hydrocortisone Sodium Succinate (Solu-Cortef -) 50 mg IVPB Q6H-IV [facility] Last Admin: 05/05/18 08:30 Dose: 50 mg Piperacillin Sod/Tazobactam (Sod 3.375 gm/ Dextrose) 50 mls @ 100 mls/hr IVPB Q6H-IV [facility]; Protocol Last Admin: 05/05/18 08:26 Dose: 100 mls/hr Midazolam HCl 100 mg/ Sodium (Chloride) 100 mls @ 3 mls/hr IVPB TITR [facility]; Protocol Last Admin: 05/05/18 08:58 Dose: 10 mg/hr, 10 mls/hr Propofol (Diprivan -) 1,000,000 mcg in 100 mls @ 2.177 mls/hr IVPB TITR [facility]; Protocol Last Admin: 05/04/18 21:17 Dose: 20 mcg/kg/min, 8.709 mls/hr Fentanyl 500 mcg/ Dextrose 100 mls @ 5 mls/hr IVPB TITR [facility]; Protocol Last Admin: 05/05/18 13:35 Dose: 30 mcg/hr, 6 mls/hr Mupirocin (Bactroban Ointment (For Decolonization) -) 1 applic NS BID [facility] Stop: 05/06/18 21:59 Last Admin: 05/05/18 10:47 Dose: 1 applic Pantoprazole Sodium (Protonix Iv) 40 mg IVPUSH BID [facility] Last Admin: 05/05/18 08:59 Dose: 40 mg Thiamine HCl (Vitamin B1 Injection -) 250 mg IVPB DAILY [facility] Last Admin: 05/05/18 09:00 Dose: 250 mg - Objective Vital Signs: Vital Signs Temperature 98.9 F 05/05/18 14:00 Pulse Rate 88 05/05/18 14:00 Respiratory Rate 20 05/05/18 14:02 Blood Pressure 95/60 05/05/18 14:00 O2 Sat by Pulse Oximetry (%) 99 05/05/18 07:00 Constitutional: Yes: No Distress, Calm Neck: Yes: Supple Cardiovascular: Yes: Regular Rate and Rhythm Respiratory: Yes: Intubated, Mechanically Ventilated, Rhonchi Gastrointestinal: Yes: Soft, Hypoactive Bowel Sounds Edema: Yes Labs: CBC, BMP 05/05/18 05:30 05/05/18 05:30 INR, PTT INR 1.27 (0.83-1.09) H 05/05/18 05:30 Fibrinogen 386.0 mg/dL (238-498) 05/03/18 05:15 - ....Imaging Chest X-ray: Report Reviewed (Increased pulm edema and pleural effusions) Problem List - Problems (1) GI bleed Code(s): K92.2 - GASTROINTESTINAL HEMORRHAGE, UNSPECIFIED Qualifiers: GI bleed type/associated pathology: gastrointestinal hemorrhage with hematemesis Qualified Code(s): K92.0 - Hematemesis (2) Septic shock Code(s): A41.9 - SEPSIS, UNSPECIFIED ORGANISM; R65.21 - SEVERE SEPSIS WITH SEPTIC SHOCK (3) Erosive esophagitis Code(s): K22.10 - ULCER OF ESOPHAGUS WITHOUT BLEEDING (4) Hematemesis Code(s): K92.0 - HEMATEMESIS Qualifiers: Nausea presence: unspecified Qualified Code(s): K92.0 - Hematemesis (5) Seizure Code(s): R56.9 - UNSPECIFIED CONVULSIONS (6) Thrombocytopenia Code(s): D69.6 - THROMBOCYTOPENIA, UNSPECIFIED (7) Alcohol abuse Code(s): F10.10 - ALCOHOL ABUSE, UNCOMPLICATED (8) Jessica-Gimenez tear Code(s): K22.6 - GASTRO-ESOPHAGEAL LACERATION-HEMORRHAGE SYNDROME (9) UGIB (upper gastrointestinal bleed) Code(s): K92.2 - GASTROINTESTINAL HEMORRHAGE, UNSPECIFIED (10) Hyperlipidemia Code(s): E78.5 - HYPERLIPIDEMIA, UNSPECIFIED Qualifiers: Hyperlipidemia type: pure hypercholesterolemia Qualified Code(s): E78.00 - Pure hypercholesterolemia, unspecified; E78.0 - Pure hypercholesterolemia (11) Acute respiratory failure Code(s): J96.00 - ACUTE RESPIRATORY FAILURE, UNSP W HYPOXIA OR HYPERCAPNIA Qualifiers: Respiratory failure complication: hypoxia Qualified Code(s): J96.01 - Acute respiratory failure with hypoxia Assessment/Plan 05/02/2018 Echo: Normal LV and RV size and fxn, LVEF 50%, mild MR, TR, AR 1. Acute hypercapneic hypoxic respiratory failure with non-cardiogenic pulm edema - ARDS 2. Hypotension and fever c/w septic shock, suspect aspiration PNA 3. Acute UGI bleed with history of erosive esophagitis and varices 4. ETOH abuse 5. Leukopenia, coagulopathy and thrombocytopenia due to alcohol, sepsis, liver disease 6. Seizure d/o, ? ETOH related PLAN: 1. Continue current management as per critical care team. Wean off vasopressor support to maintain MAP > 65, IV steroids with GI protection 2. Broad spectrum antibiotic coverage per C&S 3. Monitor CBC (WBC and Platelet), INR and transfuse as needed. 4. EGD once hemodynamically stable, PPI, vitamin repletion 5. Ideally would like to maintain platelets > 80K-100K and if feasible INR@1.2. 6. IV diuresis with monitor diuretic response, renal fxn and electrolytes, ARDS vent management and BD as needed
--- NOTE | 2018-05-05 14:50 | PN ---
Progress Note, Physician History of Present Illness: patient continues to be intubated being weaned off of pressors no bleeding - Current Medication List Current Medications: Active Medications Acetaminophen (Ofirmev Injection -) 1,000 mg IVPB Q6H PRN PRN Reason: FEVER Last Admin: 05/04/18 05:55 Dose: 1,000 mg Albuterol Sulfate (Ventolin 0.083% Nebulizer Soln -) 1 amp NEB Q4H PRN PRN Reason: SHORT OF BREATH/WHEEZING Albuterol Sulfate (Ventolin 0.083% Nebulizer Soln -) 1 amp NEB RQID [facility]PA Last Admin: 05/05/18 11:23 Dose: 1 amp Chlorhexidine Gluconate (Hibiclens For Decolonization -) 1 applic TP HS [facility] Last Admin: 05/04/18 21:57 Dose: 1 applic Hydrocortisone Sodium Succinate (Solu-Cortef -) 50 mg IVPB Q6H-IV [facility] Last Admin: 05/05/18 08:30 Dose: 50 mg Piperacillin Sod/Tazobactam (Sod 3.375 gm/ Dextrose) 50 mls @ 100 mls/hr IVPB Q6H-IV [facility]; Protocol Last Admin: 05/05/18 08:26 Dose: 100 mls/hr Midazolam HCl 100 mg/ Sodium (Chloride) 100 mls @ 3 mls/hr IVPB TITR [facility]; Protocol Last Admin: 05/05/18 08:58 Dose: 10 mg/hr, 10 mls/hr Propofol (Diprivan -) 1,000,000 mcg in 100 mls @ 2.177 mls/hr IVPB TITR [facility]; Protocol Last Admin: 05/04/18 21:17 Dose: 20 mcg/kg/min, 8.709 mls/hr Fentanyl 500 mcg/ Dextrose 100 mls @ 5 mls/hr IVPB TITR [facility]; Protocol Last Admin: 05/05/18 13:35 Dose: 30 mcg/hr, 6 mls/hr Mupirocin (Bactroban Ointment (For Decolonization) -) 1 applic NS BID [facility] Stop: 05/06/18 21:59 Last Admin: 05/05/18 10:47 Dose: 1 applic Pantoprazole Sodium (Protonix Iv) 40 mg IVPUSH BID [facility] Last Admin: 05/05/18 08:59 Dose: 40 mg Thiamine HCl (Vitamin B1 Injection -) 250 mg IVPB DAILY [facility] Last Admin: 05/05/18 09:00 Dose: 250 mg - Objective Vital Signs: Vital Signs Temperature 98.9 F 05/05/18 14:00 Pulse Rate 88 05/05/18 14:00 Respiratory Rate 20 05/05/18 14:02 Blood Pressure 95/60 05/05/18 14:00 O2 Sat by Pulse Oximetry (%) 99 05/05/18 07:00 Constitutional: Yes: Other Cardiovascular: Yes: Regular Rate and Rhythm Respiratory: Yes: Intubated, Mechanically Ventilated Gastrointestinal: Yes: Soft, Hypoactive Bowel Sounds Musculoskeletal: Yes: WNL Extremities: Yes: WNL Neurological: Yes: Other Labs: CBC, BMP 05/05/18 05:30 05/05/18 05:30 INR, PTT INR 1.27 (0.83-1.09) H 05/05/18 05:30 Fibrinogen 386.0 mg/dL (238-498) 05/03/18 05:15 - ....Imaging Chest X-ray: Report Reviewed, Image Reviewed Assessment/Plan Acute GI bleed suspected Variceal in nature ETOH abuse Seizures HTN Anemia Suspected Septic Shock: source unclear Coagulopathy fevers plan continue abx as per icu egd when stable monitor for dts monitor for bleeding wean off of pressors repeat imaging studies cc 40 min
[2018-05-05] MEDS: PROPOFOL 1,000,000 MCG/100 ML VIAL IVPB SCH ×2 (15:00→16:44)
--- NOTE | 2018-05-05 18:17 | PN ---
Teaching Attending Note Name of Resident: Silvia Stephens ATTENDING PHYSICIAN STATEMENT I saw and evaluated the patient. I reviewed the resident's note and discussed the case with the resident. I agree with the resident's findings and plan as documented. ASSESSMENT AND PLAN: Respiratory failure /intubated Sepsis GI bleeding Coagulopathy Thrombocytopenia Blood , FFP, platelets for bleeding or preprocedures
[2018-05-05] MEDS: CHLORHEXIDINE GLUCONATE 4% CLEANSER FOR DECOLONIZATION TP SCH (21:52)
[2018-05-05] MEDS ORDERED: CHLORHEXIDINE GLUCONATE 4% CLEANSER FOR DECOLONIZATION TP SCH (22:00)
[2018-05-05] MEDS ORDERED: CHLORHEXIDINE GLUCONATE 0.12% 15ML CUP MM ONE (22:13)
[2018-05-05] MEDS ORDERED: chlordiazePOXIDE HCL 10 MG CAPSULE PO SCH (23:00)
[2018-05-06] MEDS ORDERED: PIPERACILLIN/TAZOBACTAM 3.375 GM VIAL IVPB ONE ×5 (01:17→23:03)
[2018-05-06] MEDS ORDERED: DEXTROSE 5%-WATER - 50 ML IVPB ONE ×5 (01:17→23:03)
[2018-05-06] MEDS: HYDROCORTISONE SOD SUCCINATE 100 MG/2 ML VIAL IVPB SCH ×3 (02:31→17:04)
[2018-05-06] MEDS: PIPERACILLIN/TAZOB 3.375 GM 3.375 GM in DEXTROSE 5%-WATER - 50 ML IVPB SCH ×4 (02:32→20:00)
[2018-05-06 06:02] LABS: BASO % 0.1 % (0-2.0); EOS % 0.1 % (0-4.5); HEMATOCRIT 27.8 % (35.4-49); MCH 26.6 pg (25.7-33.7); MCHC 32.5 g/dl (32.0-35.9); MEAN CELL VOLUME 81.9 fl (80-96); MEAN PLT VOLUME 9.8 fl (7.5-11.1); MONO % 10.6 % (3.8-10.2); NEUT % 74.2 % (42.8-82.8); PLATELET COUNT 48 K/MM3 (134-434); RBC 3.39 M/mm3 (4.00-5.60); RDW 18.7 % (11.9-15.9)
[2018-05-06 06:05] LABS: INR 1.21 (0.83-1.09); PROTHROMBIN TIME (PATIENT) 14.3 SEC (9.7-13.0)
[2018-05-06 06:08] LABS: ACTIVATED PTT 26.3 SECONDS (25.2-36.5)
[2018-05-06 06:32] LABS: ALBUMIN 1.8 g/dl (3.4-5.0); ALK PHOS 62 U/L (45-117); ANION GAP 10 MMOL/L (8-16); BILIRUBIN,TOTAL 3.9 mg/dL (0.2-1); BLOOD UREA NITROGEN 19 mg/dL (7-18); CHLORIDE 103 mmol/L (98-107); CO2 29 mmol/L (21-32); CREATININE 0.6 mg/dL (0.55-1.3); GLUCOSE,RANDOM 165 mg/dL (74-106); MAGNESIUM 1.9 mg/dL (1.8-2.4); PHOSPHOROUS 1.3 mg/dL (2.5-4.9); POTASSIUM 3.1 mmol/L (3.5-5.1); SGOT/AST 76 U/L (15-37); SGPT/ALT 38 U/L (13-61); SODIUM 142 mmol/L (136-145); TOT PROT 5.2 g/dl (6.4-8.2)
[2018-05-06 06:48] LABS: ARTERIAL BLD GAS O2 SATURATION 98.6 % (90-98.9); ARTERIAL BLOOD GAS BASE EXCESS 6.1 meq/l (-2-2); ARTERIAL BLOOD GAS PCO2 34.9 mmHg (35-45); ARTERIAL BLOOD GAS pH 7.53 (7.35-7.45)
[2018-05-06 06:57] LABS: ALLENS TEST POSITIVE
[2018-05-06] MEDS ORDERED: POTASSIUM PHOSPHATE 30 MM in SODIUM CHLORIDE 250 ML IVPB ONE ×2 (07:33→21:00)
[2018-05-06] MEDS: ALBUTEROL SO4 0.083% IH SOL 2.5 MG/3 ML VIAL.NEB. NEB SCH ×4 (07:35→20:53)
--- NOTE | 2018-05-06 07:47 | PN ---
Progress Note (short form) - Note Progress Note: Chief Complaint: Events noted, notes reviewed, remains intubated and sedated, sinus rhythm is noted, on Midazolam, Propofol and Fentanyl History of Present Illness: Seen and examined in the ICU. Events noted, notes reviewed, remains intubated and sedated, sinus rhythm is noted, on Midazolam, Propofol and Fentanyl Echocardiography dated 05/02/2018 revealed normal LV size and with borderline LVEF 50%, normal RV size and function mild MR, TR and AR - Current Medication List Current Medications Acetaminophen (Ofirmev Injection -) 1,000 mg IVPB Q6H PRN PRN Reason: FEVER Last Admin: 05/04/18 05:55 Dose: 1,000 mg Albuterol Sulfate (Ventolin 0.083% Nebulizer Soln -) 1 amp NEB Q4H PRN PRN Reason: SHORT OF BREATH/WHEEZING Albuterol Sulfate (Ventolin 0.083% Nebulizer Soln -) 1 amp NEB RQID [facility]PA Last Admin: 05/05/18 20:50 Dose: 1 amp Chlorhexidine Gluconate (Hibiclens For Decolonization -) 1 applic TP HS [facility] Last Admin: 05/05/18 21:52 Dose: 1 applic Chlorhexidine Gluconate (Peridex -) 15 ml MM BID [facility] Hydrocortisone Sodium Succinate (Solu-Cortef -) 50 mg IVPB Q8H-IV [facility] Piperacillin Sod/Tazobactam (Sod 3.375 gm/ Dextrose) 50 mls @ 100 mls/hr IVPB Q6H-IV [facility]; Protocol Last Admin: 05/06/18 02:32 Dose: 100 mls/hr Midazolam HCl 100 mg/ Sodium (Chloride) 100 mls @ 3 mls/hr IVPB TITR [facility]; Protocol Last Admin: 05/05/18 16:47 Dose: Not Given Propofol (Diprivan -) 1,000,000 mcg in 100 mls @ 2.177 mls/hr IVPB TITR [facility]; Protocol Last Admin: 05/05/18 16:44 Dose: 20 mcg/kg/min, 8.709 mls/hr Fentanyl 500 mcg/ Dextrose 100 mls @ 5 mls/hr IVPB TITR [facility]; Protocol Last Admin: 05/05/18 13:35 Dose: 30 mcg/hr, 6 mls/hr Potassium Phosphate 30 mm/ (Sodium Chloride) 260 mls @ 62.5 mls/hr IVPB ONCE ONE Stop: 05/06/18 11:42 Mupirocin (Bactroban Ointment (For Decolonization) -) 1 applic NS BID [facility] Stop: 05/06/18 21:59 Last Admin: 05/05/18 21:50 Dose: 1 applic Pantoprazole Sodium (Protonix Iv) 40 mg IVPUSH BID [facility] Last Admin: 05/05/18 21:50 Dose: 40 mg Thiamine HCl (Vitamin B1 Injection -) 250 mg IVPB DAILY [facility] Last Admin: 05/05/18 09:00 Dose: 250 mg - Review of Systems Unable to obtain - Objective Vital Signs: Last Vital Signs Temp Pulse Resp BP Pulse Ox 99.2 F 60 18 128/86 100 05/06/18 05:00 05/06/18 06:00 05/06/18 06:45 05/06/18 06:00 05/05/18 21:00 Intake & Output 05/03/18 05/04/18 05/05/18 05/06/18 23:59 23:59 23:59 23:59 Intake Total 85903.6 6597 2286.6 678 Output Total 1450 1350 2400 750 Balance 33101.6 5247 -113.4 -72 Weight 189 lb 216 lb 7.903 oz 220 lb 14.451 oz 212 lb 9 oz Neck: Supple Negative JVD Cardiovascular: S1 S2 Regular Rate and Rhythm Respiratory: Diminished breath sounds Gastrointestinal: Soft Benign Normal Bowel Sounds Ext: Negative Edema Labs: ABG Results ABG pH 7.53 (7.35-7.45) H D 05/06/18 06:00 ABG pCO2 at Pt Temp 34.9 mmHg (35-45) L D 05/06/18 06:00 ABG pO2 at Pt Temp 126.0 mmHg (80-100) H D 05/06/18 06:00 ABG HCO3 28.9 meq/L (22-26) H 05/06/18 06:00 ABG O2 Sat (Measured) 98.6 % (90-98.9) 05/06/18 06:00 ABG O2 Content 13.6 % vol (15-22) L 05/06/18 06:00 ABG Base Excess 6.1 meq/l (-2-2) H 05/06/18 06:00 CBC, BMP 05/06/18 05:30 05/06/18 05:30 Hepatic Panel Total Bilirubin 3.9 mg/dL (0.2-1) H 05/06/18 05:30 AST 76 U/L (15-37) H 05/06/18 05:30 ALT 38 U/L (13-61) 05/06/18 05:30 Alkaline Phosphatase 62 U/L (45-117) 05/06/18 05:30 Albumin 1.8 g/dl (3.4-5.0) L 05/06/18 05:30 INR, PTT INR 1.21 (0.83-1.09) H 05/06/18 05:30 Fibrinogen 386.0 mg/dL (238-498) 05/03/18 05:15 Assessment/Plan ASSESSMENT: 1. Acute hypercapneic hypoxic respiratory failure with non-cardiogenic pulmonary edema/ARDS, persistent chest x-ray abnormality 2. Aspiration pneumonia with resolved septic shock/hypotension 3. Acute upper gastrointestinal bleed with history of erosive esophagitis and varices 4. History of ETOH/alcohol abuse 5. Seizure disorder 6. Thrombocytopenia/Anemia 7. Hypokalemia PLAN: 1. Ventilator management as as per the ICU team 2. Wean off sedatives as tolerated 3. Lasix on prn bases with close monitoring of renal function and electrolytes 4. Monitor CBC (Hg and Platelet) and transfuse as needed. 5. Correction of Hypokalemia 6. EGD once hemodynamically stable as per GI service Yosi Ashley MD
[2018-05-06] MEDS ORDERED: fentaNYL CITRATE 250 MCG/5 ML VIAL ONE (07:48)
--- NOTE | 2018-05-06 07:53 | PN ---
Physical Exam: SUBJECTIVE: Patient seen and examined in the ICU. remains intubated and sedated. Off pressors. EGD and Head CT deferred until pt more stable. afebrile overnight. lasix yesterday, good UOP. AC Mode of vent, 40% FiO2. Pplat: 25. No active bleeding. OBJECTIVE: Vital Signs Period Temp Pulse Resp BP Sys/Boykin Pulse Ox Last 24 Hr 98.9 F-99.4 F 60-100 18-24 95-128/60-86 100-100 GENERAL: intubated sedated HEENT: NCAT, ETT, OGT NECK: supple, R IJ LUNGS: crackles b/l HEART:tachy RR, normal S1 and S2 without m/r/g ABDOMEN: Soft, ND normoactive bowel sounds MUSCULOSKELETAL: No bony deformities or tenderness. UPPER EXTREMITIES: 2+ pulses, warm, well-perfused. No cyanosis. No clubbing. Cap refill <2 seconds. +1 edema. LOWER EXTREMITIES: 2+ pulses, warm, well-perfused. No calf tenderness. No peripheral edema. NEUROLOGICAL: intubated sedated +cough reflex SKIN: Warm, dry, normal turgor, no rashes or lesions noted. Laboratory Results - last 24 hr 05/01/18 05/05/18 05/06/18 16:45 05:30 05:30 WBC 4.0 RBC 3.39 L Hgb 9.0 L Hct 27.8 L MCV 81.9 MCH 26.6 MCHC 32.5 RDW 18.7 H Plt Count 48 L MPV 9.8 Absolute Neuts (auto) 3.0 Neutrophils % 74.2 Lymphocytes % 15.0 D Monocytes % 10.6 H Eosinophils % 0.1 D Basophils % 0.1 Nucleated RBC % 0 PT with INR INR PTT (Actin FS) Anticoagulation Therapy Puncture Site ABG pH ABG pCO2 at Pt Temp ABG pO2 at Pt Temp ABG HCO3 ABG O2 Sat (Measured) ABG O2 Content ABG Base Excess Leighton Test O2 Delivery Device Oxygen Flow Rate Vent Mode Vent Rate Mechanical Rate PEEP Pressure Support Vent Sodium Potassium Chloride Carbon Dioxide Anion Gap BUN Creatinine Creat Clearance w eGFR Random Glucose Lactic Acid 3.0 H* Calcium Phosphorus Magnesium Total Bilirubin AST ALT Alkaline Phosphatase Total Protein Albumin Blood Type A POSITIVE Antibody Screen Negative Crossmatch See Detail 05/06/18 05/06/18 05/06/18 05:30 05:30 06:00 WBC RBC Hgb Hct MCV MCH MCHC RDW Plt Count MPV Absolute Neuts (auto) Neutrophils % Lymphocytes % Monocytes % Eosinophils % Basophils % Nucleated RBC % PT with INR 14.30 H INR 1.21 H PTT (Actin FS) 26.3 Anticoagulation Therapy No Result Required. Puncture Site Right radial ABG pH 7.53 H D ABG pCO2 at Pt Temp 34.9 L D ABG pO2 at Pt Temp 126.0 H D ABG HCO3 28.9 H ABG O2 Sat (Measured) 98.6 ABG O2 Content 13.6 L ABG Base Excess 6.1 H Leighton Test Positive O2 Delivery Device Vent Oxygen Flow Rate 40% Vent Mode No Result Required. Vent Rate 18 Mechanical Rate Yes PEEP 7.0 Pressure Support Vent 450 Sodium 142 Potassium 3.1 L Chloride 103 Carbon Dioxide 29 Anion Gap 10 BUN 19 H Creatinine 0.6 Creat Clearance w eGFR > 60 Random Glucose 165 H Lactic Acid Calcium 7.0 L Phosphorus 1.3 L Magnesium 1.9 Total Bilirubin 3.9 H AST 76 H ALT 38 Alkaline Phosphatase 62 Total Protein 5.2 L Albumin 1.8 L Blood Type Antibody Screen Crossmatch Active Medications Generic Name Dose Route Start Last Admin Trade Name Freq PRN Reason Stop Dose Admin Acetaminophen 1,000 mg 05/03/18 17:31 05/04/18 05:55 Ofirmev Injection - IVPB 1,000 mg Q6H PRN Administration FEVER Albuterol Sulfate 1 amp 05/04/18 07:38 Ventolin 0.083% Nebulizer Soln - NEB Q4H PRN SHORT OF BREATH/WHEEZING Albuterol Sulfate 1 amp 05/04/18 08:30 05/05/18 20:50 Ventolin 0.083% Nebulizer Soln - NEB 1 amp RQID [facility] Administration Chlorhexidine Gluconate 1 applic 05/01/18 22:00 05/05/18 21:52 Hibiclens For Decolonization - TP 1 applic HS [facility] Administration Chlorhexidine Gluconate 15 ml 05/06/18 10:00 Peridex - MM BID [facility] Hydrocortisone Sodium Succinate 50 mg 05/06/18 10:00 Solu-Cortef - IVPB Q8H-IV [facility] Piperacillin Sod/Tazobactam 50 mls @ 100 mls/hr 05/01/18 21:45 05/06/18 02:32 Sod 3.375 gm/ Dextrose IVPB 100 mls/hr Q6H-IV [facility] Administration Protocol Midazolam HCl 100 mg/ Sodium 100 mls @ 3 mls/hr 05/02/18 15:15 05/05/18 16:47 Chloride IVPB Not Given TITR [facility] Protocol 3 MG/HR Propofol 1,000,000 mcg in 100 mls @ 2.177 mls/hr 05/02/18 15:15 05/05/18 16: 44 Diprivan - IVPB 20 mcg/kg/min TITR [facility] 8.709 mls/hr Administration Protocol 5 MCG/KG/MIN Fentanyl 500 mcg/ Dextrose 100 mls @ 5 mls/hr 05/03/18 10:45 05/05/18 13:35 IVPB 30 mcg/hr TITR [facility] 6 mls/hr Administration Protocol 25 MCG/HR Potassium Phosphate 30 mm/ 260 mls @ 62.5 mls/hr 05/06/18 07:33 Sodium Chloride IVPB 05/06/18 11:42 ONCE ONE Mupirocin 1 applic 05/01/18 22:00 05/05/18 21:50 Bactroban Ointment (For Decolonization) - NS 05/06/18 21:59 1 applic BID [facility] Administration Pantoprazole Sodium 40 mg 05/05/18 10:00 05/05/18 21:50 Protonix Iv IVPUSH 40 mg BID [facility] Administration Thiamine HCl 250 mg 05/05/18 10:00 05/05/18 09:00 Vitamin B1 Injection - IVPB 250 mg DAILY [facility] Administration ASSESSMENT/PLAN: 53yo m with PMH of GI bleed, EtOH abuse, seizures?, HTN, anemia, varicies, presenting to ICU w/ acute GIB bleed, likely upper and etoh abuse. Now found w/ septic shock unclear etiology, and in DTs. NEURO DTs 05/02/18, last drink 1pt of Vodka 05/01/18? intubated sedated on propofol, versed gtt, fentanyl gtt Utox - neg s/p banana bag c/w Thiamin 250 qd MVI detox consult seizures? - questionable hx of seizures. was evaluated by Neuro on prior admission in 02/2018. was given keppra but it was stopped as seizure was likely caused by alcohol use. Patient at that time indicated he has always had seizures only in setting of ETOH withdrawl. Pt not having any seizure like activity on this admission. Will cont to monitor. Fall?- Head CT when hemodynamically stable Cardiac/PULM/GI SVT?/sinus tach 2/2 sepsis 05/01/18 - HR was in 170s but unresponsive to adenosine, responded to Lopressor Echo - nl, EF 60% cardio consult R IJ central line 05/01/18, off pressors Hold IVF s/p lasix yesterday w/ good response, more lasix today taper stress steroids maintain MAP > 65 O2 as needed sedate for vent synchrony ARDS vent strategy monitor H/H s/p 1 u prbc in ED. transfuse if <7 or significant drop in Hgb c/w active GIB Hold IVF pain ctl EKG: sinus tachycardia. no ST changes, Qtc 512 on admission monitor Qtc cxr - worsening L pulm and pleural changes, may be source of infx, CAP vs aspiration PNA CXR today shows mild improvement w/ lasix elevate head of bed, aspiration precautions FOBT pos protonix BID dcd octreotide - hx varices?, may be source of bleed. H/H stable and has been on for 72 hrs. also starting tube feeds GI consult underwent EGD 07/[address] Hester that revealed severe erosive esophagitis. elevated lactic - trend lactic acid EGD deferred because of Septic shock ID septic shock, unclear etiology, w/ fevers (Tmax 105) and R IJ placement. 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 ucx, bcx, legionella, flu neg rpt ucx, bcx neg HEME Neuropenia and thrombocytopenia coagulopathy, likely related to liver disease, alcohol abuse, and Sepsis unclear etiology, possibly 2/2 PNA fibrinogen nl heme consult vit k 10mg sq x1 dose 05/02/18 vit K 5 sq 05/03/18 Ideally would like to maintain platelets > 80K-100K and if feasible INR@1.2 transfuse plt and FFP as needed Iron studies reveal Iron deficiency as well as anemia of chronic disease due to low TIBC and elevated ferritin. RENAL Anion Gap acidosis/lactic acidosis w/ multiple lyte abnl consistent w/ ETOH ketoacidosis - hypo K, Mg, Ca, Cl - improving. Gap appears to have closed, lactic still elevated but downtrending HU- likely pre renal - resolved monitor Cr, UOP s/p 7-9 L IVF Hold IVF s/p lasix yesterday w/ good response, more lasix today yeung FEN Hold IVF replete prn tube feeds ppx SCD protonix BID Dispo: ICU monitoring EGD deferred because of Septic shock Head CT when hemodynamically stable Visit type - Emergency Visit Emergency Visit: Yes ED Registration Date: 05/01/18 Care time: The patient presented to the Emergency Department on the above date and was hospitalized for further evaluation of their emergent condition. - New Patient This patient is new to me today: Yes Date on this admission: 05/06/18 - Critical Care Critical Care patient: Yes Total Critical Care Time (in minutes): 38 Critical Care Statement: The care of this patient involved high complexity decision making to prevent further life threatening deterioration of the patient 's condition and/or to evaluate & treat vital organ system(s) failure or risk of failure.
[2018-05-06] MEDS: FENTANYL INJECTION 500 MCG in DEXTROSE 5%-WATER - 90 ML IVPB SCH ×2 (07:54→11:22)
[2018-05-06] MEDS ORDERED: PT OWN MED DRAWER 7, Y5N ONE ×2 (08:12→11:16)
[2018-05-06] MEDS: PANTOPRAZOLE SODIUM 40 MG VIAL IVPUSH SCH ×2 (09:19→21:00)
[2018-05-06] MEDS: CHLORHEXIDINE GLUCONATE 0.12% 15ML CUP MM SCH ×2 (09:20→21:00)
[2018-05-06] MEDS: MUPIROCIN 2% TOPICAL OINTMENT FOR DECOLONIZATION NS SCH (09:20)
[2018-05-06] MEDS: THIAMINE HCL 200 MG/2 ML VIAL IVPB SCH (09:21)
[2018-05-06] MEDS ORDERED: MULTIVIT-MINERALS ORAL LIQUID PO SCH (10:00)
[2018-05-06] MEDS: KCL 10 MEQ IVPB 10 MEQ/100 ML INFUS.BAG IVPB SCH ×3 (10:10→11:21)
--- NOTE | 2018-05-06 10:13 | PN ---
Teaching Attending Note Name of Resident: Dre Martinez ATTENDING PHYSICIAN STATEMENT I saw and evaluated the patient. I reviewed the resident's note and discussed the case with the resident. I agree with the resident's findings and plan as documented. SUBJECTIVE: Patient seen and examined in the ICU. Intubated and sedated. Off pressors. AC Mode of vent, 40% FiO2. Pplat: 25 No active bleeding noted. Intake & Output 05/03/18 05/04/18 05/05/18 05/06/18 23:59 23:59 23:59 23:59 Intake Total 47653.6 6597 2286.6 678 Output Total 1450 1350 2400 750 Balance 44048.6 5247 -113.4 -72 Weight 189 lb 216 lb 7.903 oz 220 lb 14.451 oz 212 lb 9 oz Last Vital Signs Temp Pulse Resp BP Pulse Ox 98.3 F 64 18 120/78 100 05/06/18 09:42 05/06/18 09:00 05/06/18 09:08 05/06/18 09:00 05/06/18 08:27 Active Medications Acetaminophen (Ofirmev Injection -) 1,000 mg IVPB Q6H PRN PRN Reason: FEVER Last Admin: 05/04/18 05:55 Dose: 1,000 mg Albuterol Sulfate (Ventolin 0.083% Nebulizer Soln -) 1 amp NEB Q4H PRN PRN Reason: SHORT OF BREATH/WHEEZING Albuterol Sulfate (Ventolin 0.083% Nebulizer Soln -) 1 amp NEB RQID [facility] Last Admin: 05/06/18 07:35 Dose: 1 amp Chlorhexidine Gluconate (Hibiclens For Decolonization -) 1 applic TP HS ALPA Last Admin: 05/05/18 21:52 Dose: 1 applic Chlorhexidine Gluconate (Peridex -) 15 ml MM BID [facility] Last Admin: 05/06/18 09:20 Dose: 15 ml Hydrocortisone Sodium Succinate (Solu-Cortef -) 50 mg IVPB Q8H-IV [facility] Last Admin: 05/06/18 09:21 Dose: 50 mg Piperacillin Sod/Tazobactam (Sod 3.375 gm/ Dextrose) 50 mls @ 100 mls/hr IVPB Q6H-IV [facility]; Protocol Last Admin: 05/06/18 09:36 Dose: 100 mls/hr Midazolam HCl 100 mg/ Sodium (Chloride) 100 mls @ 3 mls/hr IVPB TITR [facility]; Protocol Last Titration: 05/06/18 10:07 Dose: 2 mg/hr, 2 mls/hr Propofol (Diprivan -) 1,000,000 mcg in 100 mls @ 2.177 mls/hr IVPB TITR [facility]; Protocol Last Admin: 05/05/18 16:44 Dose: 20 mcg/kg/min, 8.709 mls/hr Fentanyl 500 mcg/ Dextrose 100 mls @ 5 mls/hr IVPB TITR [facility]; Protocol Last Titration: 05/06/18 08:43 Dose: 20 mcg/hr, 4 mls/hr Potassium Phosphate 30 mm/ (Sodium Chloride) 260 mls @ 62.5 mls/hr IVPB ONCE ONE Stop: 05/06/18 11:42 Last Admin: 05/06/18 10:03 Dose: 62.5 mls/hr Potassium Chloride (Potassium Chloride 10 Meq Premix Ivpb -) 10 meq in 100 mls @ 100 mls/hr IVPB Q60M [facility] Stop: 05/06/18 13:14 Mupirocin (Bactroban Ointment (For Decolonization) -) 1 applic NS BID [facility] Stop: 05/06/18 21:59 Last Admin: 05/06/18 09:20 Dose: 1 applic Pantoprazole Sodium (Protonix Iv) 40 mg IVPUSH BID [facility] Last Admin: 05/06/18 09:19 Dose: 40 mg Thiamine HCl (Vitamin B1 Injection -) 250 mg IVPB DAILY [facility] Last Admin: 05/06/18 09:21 Dose: 250 mg GENERAL: Intubated and sedated HEAD: NCAT EYES: sclera anicteric, conjunctiva clear. No lid lag. EARS, NOSE, THROAT: Ears normal, nares patent, oropharynx w/ dry blood. MMM NECK: Normal range of motion, supple without lymphadenopathy, JVD, or masses. LUNGS: bilateral rhonchi HEART:tachy RR, normal S1 and S2 without murmur, rub or gallop. ABDOMEN: Soft, ND TTP diffuse , normoactive bowel sounds MUSCULOSKELETAL: Normal range of motion at all joints. No bony deformities or tenderness. UPPER EXTREMITIES: 2+ pulses, warm, well-perfused. No cyanosis. No clubbing. Cap refill <2 seconds. No peripheral edema. LOWER EXTREMITIES: 2+ pulses, warm, well-perfused. No calf tenderness. No peripheral edema. NEUROLOGICAL: Sedated SKIN: Warm, dry, normal turgor, no rashes or lesions noted. Laboratory Results - last 24 hr 05/01/18 05/06/18 05/06/18 16:45 05:30 05:30 WBC 4.0 RBC 3.39 L Hgb 9.0 L Hct 27.8 L MCV 81.9 MCH 26.6 MCHC 32.5 RDW 18.7 H Plt Count 48 L MPV 9.8 Absolute Neuts (auto) 3.0 Neutrophils % 74.2 Lymphocytes % 15.0 D Monocytes % 10.6 H Eosinophils % 0.1 D Basophils % 0.1 Nucleated RBC % 0 PT with INR 14.30 H INR 1.21 H PTT (Actin FS) 26.3 Anticoagulation Therapy Puncture Site ABG pH ABG pCO2 at Pt Temp ABG pO2 at Pt Temp ABG HCO3 ABG O2 Sat (Measured) ABG O2 Content ABG Base Excess Leighton Test O2 Delivery Device Oxygen Flow Rate Vent Mode Vent Rate Mechanical Rate PEEP Pressure Support Vent Sodium Potassium Chloride Carbon Dioxide Anion Gap BUN Creatinine Creat Clearance w eGFR Random Glucose Calcium Phosphorus Magnesium Total Bilirubin AST ALT Alkaline Phosphatase Total Protein Albumin Blood Type A POSITIVE Antibody Screen Negative Crossmatch See Detail 05/06/18 05/06/18 05:30 06:00 WBC RBC Hgb Hct MCV MCH MCHC RDW Plt Count MPV Absolute Neuts (auto) Neutrophils % Lymphocytes % Monocytes % Eosinophils % Basophils % Nucleated RBC % PT with INR INR PTT (Actin FS) Anticoagulation Therapy No Result Required. Puncture Site Right radial ABG pH 7.53 H D ABG pCO2 at Pt Temp 34.9 L D ABG pO2 at Pt Temp 126.0 H D ABG HCO3 28.9 H ABG O2 Sat (Measured) 98.6 ABG O2 Content 13.6 L ABG Base Excess 6.1 H Leighton Test Positive O2 Delivery Device Vent Oxygen Flow Rate 40% Vent Mode No Result Required. Vent Rate 18 Mechanical Rate Yes PEEP 7.0 Pressure Support Vent 450 Sodium 142 Potassium 3.1 L Chloride 103 Carbon Dioxide 29 Anion Gap 10 BUN 19 H Creatinine 0.6 Creat Clearance w eGFR > 60 Random Glucose 165 H Calcium 7.0 L Phosphorus 1.3 L Magnesium 1.9 Total Bilirubin 3.9 H AST 76 H ALT 38 Alkaline Phosphatase 62 Total Protein 5.2 L Albumin 1.8 L Blood Type Antibody Screen Crossmatch ASSESSMENT/PLAN: Acute GI bleed suspected Variceal in nature ETOH abuse Seizures HTN Anemia Suspected Septic Shock: source unclear Coagulopathy ARDS Maintain ARDS vent strategy Hold IVF Wean Vasopressin Replete lytes and then dose of Lasix Strict I & O ABX per ID Normal transfusion thresholds O2 as needed Thiamine MVI Pain control PPI Enteral feeds ICU monitoring Dr Davalos Critical care time spent in reviewing chart, evaluating patient and formulating plan - 36 minutes.
[2018-05-06] MEDS ORDERED: MIDAZOLAM 100 MG/100 ML MG IVPB ONE (10:59)
[2018-05-06] MEDS: MIDAZOLAM 100 MG in SODIUM CHLORIDE 100 ML IVPB SCH ×2 (11:01→17:04)
[2018-05-06] MEDS: PROPOFOL 1,000,000 MCG/100 ML VIAL IVPB SCH ×2 (11:01→17:04)
[2018-05-06 11:17] LABS: ANISOCYTOSIS 2+; MACROCYTOSIS 0; PLATELET ESTIMATE DECREASED; TEAR DROP CELLS 1+; TOXIC GRANULATION 1+
[2018-05-06] MEDS: MULTIVIT-MINERALS ORAL LIQUID PO SCH (11:17)
[2018-05-06] MEDS ORDERED: MAGNESIUM OXIDE 400 MG TABLET (FP) PO ONE ×2 (12:39→20:48)
[2018-05-06] MEDS ORDERED: FUROSEMIDE 40 MG/4 ML INJECTABLE VIAL IVPUSH ONE (12:39)
--- NOTE | 2018-05-06 12:57 | PN ---
Progress Note, Physician History of Present Illness: Pt seen and examined. Events noted. Pt remains intubated/sedated. Low grade fevers noted. - Current Medication List Current Medications: Active Medications Acetaminophen (Ofirmev Injection -) 1,000 mg IVPB Q6H PRN PRN Reason: FEVER Last Admin: 05/04/18 05:55 Dose: 1,000 mg Albuterol Sulfate (Ventolin 0.083% Nebulizer Soln -) 1 amp NEB Q4H PRN PRN Reason: SHORT OF BREATH/WHEEZING Albuterol Sulfate (Ventolin 0.083% Nebulizer Soln -) 1 amp NEB RQID [facility] Last Admin: 05/06/18 11:18 Dose: 1 amp Chlorhexidine Gluconate (Hibiclens For Decolonization -) 1 applic TP HS ALPA Last Admin: 05/05/18 21:52 Dose: 1 applic Chlorhexidine Gluconate (Peridex -) 15 ml MM BID [facility] Last Admin: 05/06/18 09:20 Dose: 15 ml Furosemide (Lasix Injection -) 40 mg IVPUSH ONCE ONE Stop: 05/06/18 12:40 Hydrocortisone Sodium Succinate (Solu-Cortef -) 50 mg IVPB Q8H-IV [facility] Last Admin: 05/06/18 09:21 Dose: 50 mg Piperacillin Sod/Tazobactam (Sod 3.375 gm/ Dextrose) 50 mls @ 100 mls/hr IVPB Q6H-IV [facility]; Protocol Last Admin: 05/06/18 09:36 Dose: 100 mls/hr Midazolam HCl 100 mg/ Sodium (Chloride) 100 mls @ 3 mls/hr IVPB TITR [facility]; Protocol Last Admin: 05/06/18 11:01 Dose: 2 mg/hr, 2 mls/hr Propofol (Diprivan -) 1,000,000 mcg in 100 mls @ 2.177 mls/hr IVPB TITR [facility]; Protocol Last Admin: 05/06/18 11:01 Dose: 20 mcg/kg/min, 8.709 mls/hr Fentanyl 500 mcg/ Dextrose 100 mls @ 5 mls/hr IVPB TITR [facility]; Protocol Last Admin: 05/06/18 11:22 Dose: Not Given Potassium Chloride (Potassium Chloride 10 Meq Premix Ivpb -) 10 meq in 100 mls @ 100 mls/hr IVPB Q60M [facility] Stop: 12/08/18 13:14 Last Admin: 05/06/18 11:21 Dose: 100 mls/hr Magnesium Oxide (Mag-Ox -) 800 mg PO ONCE ONE Stop: 05/06/18 12:40 Mupirocin (Bactroban Ointment (For Decolonization) -) 1 applic NS BID [facility] Stop: 05/06/18 21:59 Last Admin: 05/06/18 09:20 Dose: 1 applic Pantoprazole Sodium (Protonix Iv) 40 mg IVPUSH BID [facility] Last Admin: 05/06/18 09:19 Dose: 40 mg Thiamine HCl (Vitamin B1 Injection -) 250 mg IVPB DAILY [facility] Last Admin: 05/06/18 09:21 Dose: 250 mg - Objective Vital Signs: Vital Signs Temperature 98.3 F 05/06/18 09:42 Pulse Rate 60 05/06/18 11:14 Respiratory Rate 16 05/06/18 11:14 Blood Pressure 123/79 05/06/18 11:14 O2 Sat by Pulse Oximetry (%) 100 05/06/18 08:27 Constitutional: Yes: No Distress Cardiovascular: Yes: Regular Rate and Rhythm Respiratory: Yes: Mechanically Ventilated Gastrointestinal: Yes: Normal Bowel Sounds, Soft Extremities: Yes: WNL Integumentary: Yes: WNL Neurological: Yes: Other (on sedation) Labs: CBC, BMP 05/06/18 05:30 05/06/18 05:30 INR, PTT INR 1.21 (0.83-1.09) H 05/06/18 05:30 Fibrinogen 386.0 mg/dL (238-498) 05/03/18 05:15 Microbiology 05/04/18 10:00 Sputum - Endotrachea Suction/Ventilator Gram Stain - Final 05/04/18 10:00 Sputum - Endotrachea Suction/Ventilator Sputum Culture - Preliminary Klebsiella Pneumoniae 05/04/18 08:50 Blood - Peripheral Venous Blood Culture - Preliminary NO GROWTH OBTAINED AFTER 48 HOURS, INCUBATION TO CONTINUE FOR 3 DAYS. 05/04/18 08:53 Blood - Peripheral Venous Blood Culture - Preliminary NO GROWTH OBTAINED AFTER 48 HOURS, INCUBATION TO CONTINUE FOR 3 DAYS. 05/01/18 20:52 Blood - Peripheral Venous Blood Culture - Preliminary NO GROWTH OBTAINED AFTER 96 HOURS, INCUBATION TO CONTINUE FOR 1 DAYS. 05/01/18 20:52 Blood - Peripheral Venous Blood Culture - Preliminary NO GROWTH OBTAINED AFTER 96 HOURS, INCUBATION TO CONTINUE FOR 1 DAYS. 05/02/18 17:30 Sputum - Endotrachea Suction/Ventilator Gram Stain - Final 05/02/18 17:30 Sputum - Endotrachea Suction/Ventilator Sputum Culture - Final Klebsiella Pneumoniae 05/04/18 10:00 Urine - Urine [facility] Urine Culture - Final NO GROWTH OBTAINED 05/02/18 04:50 Urine - Urine [facility] Urine Culture - Final NO GROWTH OBTAINED 05/02/18 10:30 Urine For Antigen Detection Legionella Antigen - Final 05/02/18 10:30 Urine For Antigen Detection Streptococcus pneumoniae Antigen (M - Final - ....Imaging Chest X-ray: Report Reviewed Problem List - Problems (1) GI bleed Code(s): K92.2 - GASTROINTESTINAL HEMORRHAGE, UNSPECIFIED Qualifiers: GI bleed type/associated pathology: gastrointestinal hemorrhage with hematemesis Qualified Code(s): K92.0 - Hematemesis (2) Septic shock Code(s): A41.9 - SEPSIS, UNSPECIFIED ORGANISM; R65.21 - SEVERE SEPSIS WITH SEPTIC SHOCK (3) Alcohol use disorder Code(s): JBS4576 - (4) Seizure Code(s): R56.9 - UNSPECIFIED CONVULSIONS (5) GIB (gastrointestinal bleeding) Code(s): K92.2 - GASTROINTESTINAL HEMORRHAGE, UNSPECIFIED Qualifiers: GI bleed type/associated pathology: unspecified gastrointestinal hemorrhage type Qualified Code(s): K92.2 - Gastrointestinal hemorrhage, unspecified (6) Acute respiratory failure Code(s): J96.00 - ACUTE RESPIRATORY FAILURE, UNSP W HYPOXIA OR HYPERCAPNIA Qualifiers: Respiratory failure complication: hypoxia Qualified Code(s): J96.01 - Acute respiratory failure with hypoxia Assessment/Plan Acute GI bleed Acute Respiratory failure Possible Septic Shock - weaned off vasopressors ARDS Possible PNA Fever - respiratory culture +klebsiella , blood cultures no growth - continue current antibiotic -- monitor temperature trend pt remains intubated/sedated rest of care per ICU cc: 40 min
[2018-05-06 19:26] LABS: BASO % 0.1 % (0-2.0); HEMATOCRIT 27.4 % (35.4-49); HEMOGLOBIN 9.5 GM/dL (11.7-16.9); LYMPH % 7.8 % (8-40); MCH 28.1 pg (25.7-33.7); MCHC 34.8 g/dl (32.0-35.9); MEAN CELL VOLUME 80.8 fl (80-96); MEAN PLT VOLUME 9.9 fl (7.5-11.1); MONO % 9.2 % (3.8-10.2); NEUT % 82.9 % (42.8-82.8); PLATELET COUNT 63 K/MM3 (134-434); RBC 3.39 M/mm3 (4.00-5.60); RDW 18.3 % (11.9-15.9); WHITE BLOOD COUNT 5.4 K/mm3 (4.0-10.0)
[2018-05-06 20:04] LABS: ALK PHOS 84 U/L (45-117); BLOOD UREA NITROGEN 22 mg/dL (7-18); CALCIUM 7.2 mg/dL (8.5-10.1); GLUCOSE,RANDOM 181 mg/dL (74-106)
[2018-05-06 20:05] LABS: ALBUMIN 1.9 g/dl (3.4-5.0); ANION GAP 9 MMOL/L (8-16); BILIRUBIN,TOTAL 3.4 mg/dL (0.2-1); CHLORIDE 104 mmol/L (98-107); CO2 31 mmol/L (21-32); CREATININE 0.5 mg/dL (0.55-1.3); MAGNESIUM 1.8 mg/dL (1.8-2.4); PHOSPHOROUS 1.8 mg/dL (2.5-4.9); POTASSIUM 3.1 mmol/L (3.5-5.1); SGOT/AST 82 U/L (15-37); SGPT/ALT 46 U/L (13-61); SODIUM 145 mmol/L (136-145); TOT PROT 5.5 g/dl (6.4-8.2)
[2018-05-06 20:18] LABS: PLATELET ESTIMATE DECREASED
[2018-05-06] MEDS ORDERED: POTASSIUM CHLORIDE 20 MEQ PREMIX IVPB 100 ML IVPB ONE (20:47)
--- NOTE | 2018-05-06 21:29 | PN ---
Progress Note, Physician - Current Medication List Current Medications: Active Medications Acetaminophen (Ofirmev Injection -) 1,000 mg IVPB Q6H PRN PRN Reason: FEVER Last Admin: 05/04/18 05:55 Dose: 1,000 mg Albuterol Sulfate (Ventolin 0.083% Nebulizer Soln -) 1 amp NEB Q4H PRN PRN Reason: SHORT OF BREATH/WHEEZING Albuterol Sulfate (Ventolin 0.083% Nebulizer Soln -) 1 amp NEB RQID [facility] Last Admin: 05/06/18 20:53 Dose: 1 amp Chlorhexidine Gluconate (Hibiclens For Decolonization -) 1 applic TP HS [facility]PA Last Admin: 05/05/18 21:52 Dose: 1 applic Chlorhexidine Gluconate (Peridex -) 15 ml MM BID [facility] Last Admin: 05/06/18 09:20 Dose: 15 ml Hydrocortisone Sodium Succinate (Solu-Cortef -) 50 mg IVPB Q8H-IV [facility] Last Admin: 05/06/18 17:04 Dose: 50 mg Piperacillin Sod/Tazobactam (Sod 3.375 gm/ Dextrose) 50 mls @ 100 mls/hr IVPB Q6H-IV [facility]; Protocol Last Admin: 05/06/18 14:45 Dose: 100 mls/hr Midazolam HCl 100 mg/ Sodium (Chloride) 100 mls @ 3 mls/hr IVPB TITR [facility]; Protocol Last Admin: 05/06/18 17:04 Dose: Not Given Propofol (Diprivan -) 1,000,000 mcg in 100 mls @ 2.177 mls/hr IVPB TITR [facility]; Protocol Last Admin: 05/06/18 17:04 Dose: Not Given Fentanyl 500 mcg/ Dextrose 100 mls @ 5 mls/hr IVPB TITR [facility]; Protocol Last Admin: 05/06/18 11:22 Dose: Not Given Potassium Phosphate 30 mm/ (Sodium Chloride) 260 mls @ 65 mls/hr IVPB ONCE ONE Stop: 05/07/18 00:59 Mupirocin (Bactroban Ointment (For Decolonization) -) 1 applic NS BID [facility] Stop: 05/06/18 21:59 Last Admin: 05/06/18 09:20 Dose: 1 applic Pantoprazole Sodium (Protonix Iv) 40 mg IVPUSH BID [facility] Last Admin: 05/06/18 09:19 Dose: 40 mg Thiamine HCl (Vitamin B1 Injection -) 250 mg IVPB DAILY [facility] Last Admin: 05/06/18 09:21 Dose: 250 mg - Objective Vital Signs: Vital Signs Temperature 98.9 F 05/06/18 20:00 Pulse Rate 66 05/06/18 20:57 Respiratory Rate 18 05/06/18 20:57 Blood Pressure 129/80 05/06/18 20:00 O2 Sat by Pulse Oximetry (%) 99 05/06/18 20:57 Labs: CBC, BMP 05/06/18 19:10 05/06/18 19:10 INR, PTT INR 1.21 (0.83-1.09) H 05/06/18 05:30 Fibrinogen 386.0 mg/dL (238-498) 05/03/18 05:15
[2018-05-06] MEDS: CHLORHEXIDINE GLUCONATE 4% CLEANSER FOR DECOLONIZATION TP SCH (23:10)
[2018-05-07] MEDS ORDERED: POTASSIUM CHLORIDE 20 MEQ PREMIX IVPB 100 ML IVPB ONE (00:24)
[2018-05-07] MEDS: PIPERACILLIN/TAZOB 3.375 GM 3.375 GM in DEXTROSE 5%-WATER - 50 ML IVPB SCH ×4 (02:16→20:59)
[2018-05-07] MEDS: HYDROCORTISONE SOD SUCCINATE 100 MG/2 ML VIAL IVPB SCH ×3 (02:16→18:29)
[2018-05-07] MEDS ORDERED: fentaNYL CITRATE 250 MCG/5 ML VIAL ONE ×2 (04:05→17:11)
[2018-05-07 06:04] LABS: BASO % 0.1 % (0-2.0); HEMATOCRIT 28.7 % (35.4-49); HEMOGLOBIN 9.3 GM/dL (11.7-16.9); LYMPH % 7.6 % (8-40); MCH 26.7 pg (25.7-33.7); MCHC 32.5 g/dl (32.0-35.9); MEAN CELL VOLUME 82.2 fl (80-96); MEAN PLT VOLUME 10.1 fl (7.5-11.1); MONO % 9.8 % (3.8-10.2); NEUT % 82.5 % (42.8-82.8); PLATELET COUNT 63 K/MM3 (134-434); RBC 3.49 M/mm3 (4.00-5.60); RDW 18.4 % (11.9-15.9); WHITE BLOOD COUNT 6.9 K/mm3 (4.0-10.0)
[2018-05-07 06:32] LABS: INR 1.14 (0.83-1.09); PROTHROMBIN TIME (PATIENT) 13.5 SEC (9.7-13.0)
[2018-05-07 06:35] LABS: ACTIVATED PTT 23.7 SECONDS (25.2-36.5)
[2018-05-07 06:36] LABS: ARTERIAL BLD GAS O2 SATURATION 96.3 % (90-98.9); ARTERIAL BLOOD GAS BASE EXCESS 8.4 meq/l (-2-2); ARTERIAL BLOOD GAS PCO2 44.9 mmHg (35-45); ARTERIAL BLOOD GAS PO2 85.7 mmHg (80-100); ARTERIAL BLOOD GAS pH 7.48 (7.35-7.45)
[2018-05-07 06:38] LABS: ALLENS TEST POSITIVE
[2018-05-07 07:01] LABS: ALBUMIN 1.9 g/dl (3.4-5.0); ANION GAP 9 MMOL/L (8-16); BILIRUBIN,TOTAL 2.8 mg/dL (0.2-1); BLOOD UREA NITROGEN 21 mg/dL (7-18); CHLORIDE 104 mmol/L (98-107); CO2 32 mmol/L (21-32); CREATININE 0.4 mg/dL (0.55-1.3); GLUCOSE,RANDOM 186 mg/dL (74-106); MAGNESIUM 1.9 mg/dL (1.8-2.4); PHOSPHOROUS 2.8 mg/dL (2.5-4.9); POTASSIUM 3.5 mmol/L (3.5-5.1); SGOT/AST 93 U/L (15-37); SGPT/ALT 55 U/L (13-61); SODIUM 145 mmol/L (136-145); TOT PROT 5.4 g/dl (6.4-8.2)
[2018-05-07 07:02] LABS: ALK PHOS 134 U/L (45-117)
[2018-05-07] MEDS ORDERED: POTASSIUM CHLORIDE ORAL LIQUID 20 MEQ/15 ML PO ONE ×2 (07:02→10:06)
[2018-05-07] MEDS ORDERED: MAGNESIUM OXIDE 400 MG TABLET (FP) PO ONE (07:04)
--- NOTE | 2018-05-07 07:37 | PN ---
Progress Note (short form) - Note Progress Note: Chief Complaint: Events noted, notes reviewed, patient remains intubated and sedated, sinus rhythm is noted, remains on Midazolam, Propofol and Fentanyl History of Present Illness: Seen and examined in the ICU. Events noted, notes reviewed, patient remains intubated and sedated, sinus rhythm is noted, remains on Midazolam, Propofol and Fentanyl Echocardiography dated 05/02/2018 revealed normal LV size and with borderline LVEF 50%, normal RV size and function mild MR, TR and AR Chest x-ray from this AM noted - Current Medication List Current Medications Acetaminophen (Ofirmev Injection -) 1,000 mg IVPB Q6H PRN PRN Reason: FEVER Last Admin: 05/04/18 05:55 Dose: 1,000 mg Albuterol Sulfate (Ventolin 0.083% Nebulizer Soln -) 1 amp NEB Q4H PRN PRN Reason: SHORT OF BREATH/WHEEZING Albuterol Sulfate (Ventolin 0.083% Nebulizer Soln -) 1 amp NEB RQID [facility] Last Admin: 05/06/18 20:53 Dose: 1 amp Chlorhexidine Gluconate (Hibiclens For Decolonization -) 1 applic TP HS [facility] Last Admin: 05/06/18 23:10 Dose: 1 applic Chlorhexidine Gluconate (Peridex -) 15 ml MM BID [facility] Last Admin: 05/06/18 21:00 Dose: 15 ml Hydrocortisone Sodium Succinate (Solu-Cortef -) 50 mg IVPB Q8H-IV [facility] Last Admin: 05/07/18 02:16 Dose: 50 mg Piperacillin Sod/Tazobactam (Sod 3.375 gm/ Dextrose) 50 mls @ 100 mls/hr IVPB Q6H-IV [facility]; Protocol Last Admin: 05/07/18 02:16 Dose: 100 mls/hr Midazolam HCl 100 mg/ Sodium (Chloride) 100 mls @ 3 mls/hr IVPB TITR [facility]; Protocol Last Titration: 05/07/18 05:00 Dose: 4 mg/hr, 4 mls/hr Propofol (Diprivan -) 1,000,000 mcg in 100 mls @ 2.177 mls/hr IVPB TITR [facility]; Protocol Last Admin: 05/06/18 17:04 Dose: Not Given Fentanyl 500 mcg/ Dextrose 100 mls @ 5 mls/hr IVPB TITR [facility]; Protocol Last Titration: 05/07/18 06:50 Dose: 50 mcg/hr, 10 mls/hr Pantoprazole Sodium (Protonix Iv) 40 mg IVPUSH BID [facility] Last Admin: 05/06/18 21:00 Dose: 40 mg Thiamine HCl (Vitamin B1 Injection -) 250 mg IVPB DAILY [facility] Last Admin: 05/06/18 09:21 Dose: 250 mg - Review of Systems Unable to obtain - Objective Vital Signs: Last Vital Signs Temp Pulse Resp BP Pulse Ox 99.5 F 55 L 16 122/76 100 05/07/18 06:00 05/07/18 06:00 05/07/18 06:00 05/07/18 06:00 05/06/18 21:00 Intake & Output 05/04/18 05/05/18 05/06/18 05/07/18 23:59 23:59 23:59 23:59 Intake Total 6597 2286.6 2786 1451.2 Output Total 1350 2400 3850 Balance 5247 -113.4 -1064 1451.2 Weight 216 lb 7.903 oz 220 lb 14.451 oz 212 lb 9 oz 207 lb 3.2 oz Neck: Supple Negative JVD Cardiovascular: S1 S2 Regular Rate and Rhythm Respiratory: Diminished breath sounds Gastrointestinal: Soft Benign Normal Bowel Sounds Ext: Negative Edema Labs: ABG Results ABG pH 7.48 (7.35-7.45) H 05/07/18 06:00 ABG pCO2 at Pt Temp 44.9 mmHg (35-45) D 05/07/18 06:00 ABG pO2 at Pt Temp 85.7 mmHg (80-100) D 05/07/18 06:00 ABG HCO3 32.7 meq/L (22-26) H 05/07/18 06:00 ABG O2 Sat (Measured) 96.3 % (90-98.9) 05/07/18 06:00 ABG O2 Content 15.9 % vol (15-22) 05/07/18 06:00 ABG Base Excess 8.4 meq/l (-2-2) H 05/07/18 06:00 CBC, BMP 05/07/18 05:30 05/07/18 05:30 Hepatic Panel Total Bilirubin 2.8 mg/dL (0.2-1) H 05/07/18 05:30 AST 93 U/L (15-37) H 05/07/18 05:30 ALT 55 U/L (13-61) 05/07/18 05:30 Alkaline Phosphatase 134 U/L (45-117) H 05/07/18 05:30 Albumin 1.9 g/dl (3.4-5.0) L 05/07/18 05:30 Assessment/Plan ASSESSMENT: 1. Acute hypercapneic hypoxic respiratory failure with non-cardiogenic pulmonary edema/ARDS, persistent chest x-ray abnormality 2. Aspiration pneumonia with resolved septic shock/hypotension 3. Acute upper gastrointestinal bleed with history of erosive esophagitis and varices 4. History of ETOH/alcohol abuse 5. Seizure disorder 6. Thrombocytopenia/Anemia 7. Hypokalemia, resolved PLAN: 1. Ventilator management as as per the ICU team 2. Wean off sedatives as tolerated 3. Continue to administer Lasix on prn bases with close monitoring of renal function and electrolytes 4. Monitor CBC (Hg and Platelet) and transfuse as needed. 5. EGD as per GI service Yosi Ashley MD
[2018-05-07] MEDS: ALBUTEROL SO4 0.083% IH SOL 2.5 MG/3 ML VIAL.NEB. NEB SCH ×4 (07:58→20:11)
[2018-05-07] MEDS ORDERED: PIPERACILLIN/TAZOBACTAM 3.375 GM VIAL IVPB ONE ×3 (08:38→19:51)
[2018-05-07] MEDS ORDERED: DEXTROSE 5%-WATER - 50 ML IVPB ONE ×3 (08:38→19:51)
[2018-05-07 08:51] LABS: CALCIUM 6.9 mg/dL (8.5-10.1)
[2018-05-07] MEDS: CHLORHEXIDINE GLUCONATE 0.12% 15ML CUP MM SCH ×2 (09:21→21:06)
[2018-05-07] MEDS: THIAMINE HCL 200 MG/2 ML VIAL IVPB SCH (09:25)
[2018-05-07] MEDS ORDERED: PT OWN MED DRAWER 7, Y5N ONE (09:35)
[2018-05-07] MEDS: PANTOPRAZOLE SODIUM 40 MG VIAL IVPUSH SCH ×2 (09:37→20:59)
[2018-05-07] MEDS: MULTIVIT-MINERALS ORAL LIQUID PO SCH (09:37)
--- NOTE | 2018-05-07 10:19 | PN ---
Teaching Attending Note Name of Resident: Samantha Degroot ATTENDING PHYSICIAN STATEMENT I saw and evaluated the patient. I reviewed the resident's note and discussed the case with the resident. I agree with the resident's findings and plan as documented. SUBJECTIVE: SUBJECTIVE: Patient seen and examined in the ICU. Intubated and sedated. Remains off pressors. AC Mode of vent, 40% FiO2. Pplat: 25 No active bleeding noted. CXR: improving ARDS pattern Intake & Output 05/04/18 05/05/18 05/06/18 05/07/18 23:59 23:59 23:59 23:59 Intake Total 6597 2286.6 2786 1451.2 Output Total 1350 2400 3850 Balance 5247 -113.4 -1064 1451.2 Weight 216 lb 7.903 oz 220 lb 14.451 oz 212 lb 9 oz 207 lb 3.2 oz Last Vital Signs Temp Pulse Resp BP Pulse Ox 99.5 F 55 L 16 122/76 100 05/07/18 06:00 05/07/18 06:00 05/07/18 07:56 05/07/18 06:00 05/06/18 21:00 Active Medications Acetaminophen (Ofirmev Injection -) 1,000 mg IVPB Q6H PRN PRN Reason: FEVER Last Admin: 05/04/18 05:55 Dose: 1,000 mg Albuterol Sulfate (Ventolin 0.083% Nebulizer Soln -) 1 amp NEB Q4H PRN PRN Reason: SHORT OF BREATH/WHEEZING Albuterol Sulfate (Ventolin 0.083% Nebulizer Soln -) 1 amp NEB RQID ALPA Last Admin: 05/07/18 07:58 Dose: 1 amp Chlorhexidine Gluconate (Hibiclens For Decolonization -) 1 applic TP HS ALPA Last Admin: 05/06/18 23:10 Dose: 1 applic Chlorhexidine Gluconate (Peridex -) 15 ml MM BID ALPA Last Admin: 05/07/18 09:21 Dose: 15 ml Furosemide (Lasix Injection -) 40 mg IVPUSH ONCE ONE Stop: 05/07/18 12:01 Hydrocortisone Sodium Succinate (Solu-Cortef -) 50 mg IVPB Q8H-IV ALPA Last Admin: 05/07/18 09:19 Dose: 50 mg Piperacillin Sod/Tazobactam (Sod 3.375 gm/ Dextrose) 50 mls @ 100 mls/hr IVPB Q6H-IV ALPA; Protocol Last Admin: 05/07/18 08:41 Dose: 100 mls/hr Midazolam HCl 100 mg/ Sodium (Chloride) 100 mls @ 3 mls/hr IVPB TITR ALPA; Protocol Last Titration: 05/07/18 05:00 Dose: 4 mg/hr, 4 mls/hr Propofol (Diprivan -) 1,000,000 mcg in 100 mls @ 2.177 mls/hr IVPB TITR ALPA; Protocol Last Admin: 05/06/18 17:04 Dose: Not Given Fentanyl 500 mcg/ Dextrose 100 mls @ 5 mls/hr IVPB TITR ALPA; Protocol Last Titration: 05/07/18 06:50 Dose: 50 mcg/hr, 10 mls/hr Potassium Chloride (Potassium Chloride 10 Meq Premix Ivpb -) 10 meq in 100 mls @ 100 mls/hr IVPB Q60M ALPA Stop: 05/07/18 12:14 Pantoprazole Sodium (Protonix Iv) 40 mg IVPUSH BID ALPA Last Admin: 05/07/18 09:37 Dose: 40 mg Potassium Chloride (Potassium Chloride Oral Liquid) 40 meq PO ONCE ONE Stop: 05/07/18 10:07 Thiamine HCl (Vitamin B1 Injection -) 250 mg IVPB DAILY ALPA Last Admin: 05/07/18 09:25 Dose: 250 mg GENERAL: Intubated and sedated HEAD: NCAT EYES: sclera anicteric, conjunctiva clear. No lid lag. EARS, NOSE, THROAT: Ears normal, nares patent, oropharynx w/ dry blood. MMM NECK: Normal range of motion, supple without lymphadenopathy, JVD, or masses. LUNGS: bilateral rhonchi HEART:tachy RR, normal S1 and S2 without murmur, rub or gallop. ABDOMEN: Soft, ND TTP diffuse , normoactive bowel sounds MUSCULOSKELETAL: Normal range of motion at all joints. No bony deformities or tenderness. UPPER EXTREMITIES: 2+ pulses, warm, well-perfused. No cyanosis. No clubbing. Cap refill <2 seconds. No peripheral edema. LOWER EXTREMITIES: 2+ pulses, warm, well-perfused. No calf tenderness. No peripheral edema. NEUROLOGICAL: Sedated SKIN: Warm, dry, normal turgor, no rashes or lesions noted. Laboratory Results - last 24 hr 05/06/18 05/06/18 05/06/18 05:30 12:03 19:10 WBC 5.4 RBC 3.39 L Hgb 9.5 L Hct 27.4 L MCV 80.8 MCH 28.1 MCHC 34.8 RDW 18.3 H Plt Count 63 L D MPV 9.9 Absolute Neuts (auto) 4.5 Neutrophils % 82.9 H Neutrophils % (Manual) 59.4 73.0 D Band Neutrophils % 16.7 10.0 Lymphocytes % 7.8 L D Lymphocytes % (Manual) 10.4 12.0 Monocytes % 9.2 Monocytes % (Manual) 6 4 Eosinophils % 0.0 D Eosinophils % (Manual) 0.0 D 0.0 Basophils % 0.1 Basophils % (Manual) 0.0 0.0 Myelocytes % (Man) 0 1 D Promyelocytes % (Man) 0 D Blast Cells % (Manual) 0 Nucleated RBC % 1 H Metamyelocytes 0 D Hypochromia 0 Toxic Granulation 1+ Platelet Estimate Decreased Decreased Platelet Comment Present No clumping noted Polychromasia 1+ Poikilocytosis 0 Anisocytosis 2+ Microcytosis 1+ Macrocytosis 0 Spherocytes 1+ Tear Drop Cells 1+ PT with INR INR PTT (Actin FS) Puncture Site ABG pH ABG pCO2 at Pt Temp ABG pO2 at Pt Temp ABG HCO3 ABG O2 Sat (Measured) ABG O2 Content ABG Base Excess Leighton Test Oxygen Flow Rate Vent Rate PEEP Pressure Support Vent Sodium Potassium Chloride Carbon Dioxide Anion Gap BUN Creatinine Creat Clearance w eGFR Random Glucose Lactic Acid 1.6 Calcium Phosphorus Magnesium Total Bilirubin AST ALT Alkaline Phosphatase Total Protein Albumin 05/06/18 05/07/18 05/07/18 19:10 05:30 05:30 WBC 6.9 RBC 3.49 L Hgb 9.3 L Hct 28.7 L MCV 82.2 MCH 26.7 MCHC 32.5 RDW 18.4 H Plt Count 63 L MPV 10.1 Absolute Neuts (auto) 5.7 Neutrophils % 82.5 Neutrophils % (Manual) Band Neutrophils % Lymphocytes % 7.6 L Lymphocytes % (Manual) Monocytes % 9.8 Monocytes % (Manual) Eosinophils % 0.0 Eosinophils % (Manual) Basophils % 0.1 Basophils % (Manual) Myelocytes % (Man) Promyelocytes % (Man) Blast Cells % (Manual) Nucleated RBC % 0 Metamyelocytes Hypochromia Toxic Granulation Platelet Estimate Platelet Comment Polychromasia Poikilocytosis Anisocytosis Microcytosis Macrocytosis Spherocytes Tear Drop Cells PT with INR 13.50 H INR 1.14 H PTT (Actin FS) 23.7 L Puncture Site ABG pH ABG pCO2 at Pt Temp ABG pO2 at Pt Temp ABG HCO3 ABG O2 Sat (Measured) ABG O2 Content ABG Base Excess Leighton Test Oxygen Flow Rate Vent Rate PEEP Pressure Support Vent Sodium 145 Potassium 3.1 L Chloride 104 Carbon Dioxide 31 Anion Gap 9 BUN 22 H Creatinine 0.5 L Creat Clearance w eGFR > 60 Random Glucose 181 H Lactic Acid Calcium 7.2 L Phosphorus 1.8 L Magnesium 1.8 Total Bilirubin 3.4 H AST 82 H ALT 46 Alkaline Phosphatase 84 Total Protein 5.5 L Albumin 1.9 L 05/07/18 05/07/18 05:30 06:00 WBC RBC Hgb Hct MCV MCH MCHC RDW Plt Count MPV Absolute Neuts (auto) Neutrophils % Neutrophils % (Manual) Band Neutrophils % Lymphocytes % Lymphocytes % (Manual) Monocytes % Monocytes % (Manual) Eosinophils % Eosinophils % (Manual) Basophils % Basophils % (Manual) Myelocytes % (Man) Promyelocytes % (Man) Blast Cells % (Manual) Nucleated RBC % Metamyelocytes Hypochromia Toxic Granulation Platelet Estimate Platelet Comment Polychromasia Poikilocytosis Anisocytosis Microcytosis Macrocytosis Spherocytes Tear Drop Cells PT with INR INR PTT (Actin FS) Puncture Site Right radial ABG pH 7.48 H ABG pCO2 at Pt Temp 44.9 D ABG pO2 at Pt Temp 85.7 D ABG HCO3 32.7 H ABG O2 Sat (Measured) 96.3 ABG O2 Content 15.9 ABG Base Excess 8.4 H Leighton Test Positive Oxygen Flow Rate 40 Vent Rate 16 PEEP 7.0 Pressure Support Vent 450 Sodium 145 Potassium 3.5 Chloride 104 Carbon Dioxide 32 Anion Gap 9 BUN 21 H Creatinine 0.4 L Creat Clearance w eGFR > 60 Random Glucose 186 H Lactic Acid Calcium 6.9 L* Phosphorus 2.8 Magnesium 1.9 Total Bilirubin 2.8 H AST 93 H ALT 55 Alkaline Phosphatase 134 H Total Protein 5.4 L Albumin 1.9 L ASSESSMENT/PLAN: Acute GI bleed suspected Variceal in nature ETOH abuse Seizures HTN Anemia Suspected Septic Shock: source unclear Coagulopathy ARDS Maintain ARDS vent strategy No IVF Monitor off pressors Replete lytes and then dose of Lasix Strict I & O ABX per ID Normal transfusion thresholds O2 as needed Thiamine MVI Pain control PPI Enteral feeds ICU monitoring Dr Davalos Critical care time spent in reviewing chart, evaluating patient and formulating plan - 36 minutes.
--- NOTE | 2018-05-07 10:50 | PN ---
Progress Note, Physician History of Present Illness: Pt remains intubated, sedated. Tmax 99.5F. Off vasopressors. - Current Medication List Current Medications: Active Medications Acetaminophen (Ofirmev Injection -) 1,000 mg IVPB Q6H PRN PRN Reason: FEVER Last Admin: 05/04/18 05:55 Dose: 1,000 mg Albuterol Sulfate (Ventolin 0.083% Nebulizer Soln -) 1 amp NEB Q4H PRN PRN Reason: SHORT OF BREATH/WHEEZING Albuterol Sulfate (Ventolin 0.083% Nebulizer Soln -) 1 amp NEB RQID ALPA Last Admin: 05/07/18 07:58 Dose: 1 amp Chlorhexidine Gluconate (Hibiclens For Decolonization -) 1 applic TP HS ALPA Last Admin: 05/06/18 23:10 Dose: 1 applic Chlorhexidine Gluconate (Peridex -) 15 ml MM BID ALPA Last Admin: 05/07/18 09:21 Dose: 15 ml Furosemide (Lasix Injection -) 40 mg IVPUSH ONCE ONE Stop: 05/07/18 12:01 Hydrocortisone Sodium Succinate (Solu-Cortef -) 50 mg IVPB Q8H-IV ALPA Last Admin: 05/07/18 09:19 Dose: 50 mg Piperacillin Sod/Tazobactam (Sod 3.375 gm/ Dextrose) 50 mls @ 100 mls/hr IVPB Q6H-IV ALPA; Protocol Last Admin: 05/07/18 08:41 Dose: 100 mls/hr Midazolam HCl 100 mg/ Sodium (Chloride) 100 mls @ 3 mls/hr IVPB TITR ALPA; Protocol Last Titration: 05/07/18 05:00 Dose: 4 mg/hr, 4 mls/hr Propofol (Diprivan -) 1,000,000 mcg in 100 mls @ 2.177 mls/hr IVPB TITR ALPA; Protocol Last Admin: 05/06/18 17:04 Dose: Not Given Fentanyl 500 mcg/ Dextrose 100 mls @ 5 mls/hr IVPB TITR ALPA; Protocol Last Titration: 05/07/18 06:50 Dose: 50 mcg/hr, 10 mls/hr Potassium Chloride (Potassium Chloride 10 Meq Premix Ivpb -) 10 meq in 100 mls @ 100 mls/hr IVPB Q60M ALPA Stop: 05/07/18 12:14 Pantoprazole Sodium (Protonix Iv) 40 mg IVPUSH BID [facility] Last Admin: 05/07/18 09:37 Dose: 40 mg Potassium Chloride (Potassium Chloride Oral Liquid) 40 meq PO ONCE ONE Stop: 05/07/18 10:07 Thiamine HCl (Vitamin B1 Injection -) 250 mg IVPB DAILY [facility] Last Admin: 05/07/18 09:25 Dose: 250 mg - Objective Vital Signs: Vital Signs Temperature 99.5 F 05/07/18 06:00 Pulse Rate 55 L 05/07/18 06:00 Respiratory Rate 16 05/07/18 10:28 Blood Pressure 122/76 05/07/18 06:00 O2 Sat by Pulse Oximetry (%) 100 05/06/18 21:00 Constitutional: Yes: No Distress, Calm Neck: Yes: Supple, Other (NGT) Cardiovascular: Yes: Regular Rate and Rhythm Respiratory: Yes: Mechanically Ventilated Gastrointestinal: Yes: Normal Bowel Sounds, Soft Extremities: Yes: WNL Integumentary: Yes: WNL Neurological: Yes: Other (on sedation) Labs: CBC, BMP 05/07/18 05:30 05/07/18 05:30 INR, PTT INR 1.14 (0.83-1.09) H 05/07/18 05:30 Fibrinogen 386.0 mg/dL (238-498) 05/03/18 05:15 Problem List - Problems (1) GI bleed Code(s): K92.2 - GASTROINTESTINAL HEMORRHAGE, UNSPECIFIED Qualifiers: GI bleed type/associated pathology: gastrointestinal hemorrhage with hematemesis Qualified Code(s): K92.0 - Hematemesis (2) Septic shock Code(s): A41.9 - SEPSIS, UNSPECIFIED ORGANISM; R65.21 - SEVERE SEPSIS WITH SEPTIC SHOCK (3) Alcohol use disorder Code(s): PFJ9583 - (4) Seizure Code(s): R56.9 - UNSPECIFIED CONVULSIONS (5) GIB (gastrointestinal bleeding) Code(s): K92.2 - GASTROINTESTINAL HEMORRHAGE, UNSPECIFIED Qualifiers: GI bleed type/associated pathology: unspecified gastrointestinal hemorrhage type Qualified Code(s): K92.2 - Gastrointestinal hemorrhage, unspecified (6) Acute respiratory failure Code(s): J96.00 - ACUTE RESPIRATORY FAILURE, UNSP W HYPOXIA OR HYPERCAPNIA Qualifiers: Respiratory failure complication: hypoxia Qualified Code(s): J96.01 - Acute respiratory failure with hypoxia Assessment/Plan Acute GIB ARDS Acute Respiratory failure - on MV Possible Septic Shock - weaned off vasopressors Possible PNA - resp. culture results noted Fever - low grade -- cont. antibiotics -- monitor temperature trend, BP stable of pressors pt remains intubated/sedated rest of care per ICU
[2018-05-07 11:29] LABS: ANISOCYTOSIS 2+; MACROCYTOSIS 0; PLATELET ESTIMATE DECREASED
--- NOTE | 2018-05-07 11:29 | PN ---
Physical Exam: SUBJECTIVE: Patient seen and examined intubated and sedated. OBJECTIVE: Vital Signs Period Temp Pulse Resp BP Sys/Boykin Pulse Ox Last 24 Hr 98.5 F-99.5 F 55-98 15-19 114-134/72-88 98-100 GENERAL: The patient is intubated and sedated HEAD: Normal with no signs of trauma. ENT: moist mucous membranes. NECK: Trachea midline LUNGS: coarse breath sounds on auscultation bilaterally, no wheezes, no crackles , no accessory muscle use. HEART: Regular rate and rhythm, S1, S2 without murmur, rub or gallop. ABDOMEN: Soft, nontender, nondistended, no masses. EXTREMITIES: 2+ pulses, warm, well-perfused, no edema. NEUROLOGICAL: intubated and sedated SKIN: Warm, dry, normal turgor, no rashes or lesions noted Laboratory Results - last 24 hr 05/06/18 05/06/18 05/06/18 05:30 12:03 19:10 WBC 5.4 RBC 3.39 L Hgb 9.5 L Hct 27.4 L MCV 80.8 MCH 28.1 MCHC 34.8 RDW 18.3 H Plt Count 63 L D MPV 9.9 Absolute Neuts (auto) 4.5 Neutrophils % 82.9 H Neutrophils % (Manual) 59.4 73.0 D Band Neutrophils % 16.7 10.0 Lymphocytes % 7.8 L D Lymphocytes % (Manual) 10.4 12.0 Monocytes % 9.2 Monocytes % (Manual) 6 4 Eosinophils % 0.0 D Eosinophils % (Manual) 0.0 D 0.0 Basophils % 0.1 Basophils % (Manual) 0.0 0.0 Myelocytes % (Man) 0 1 D Promyelocytes % (Man) 0 D Blast Cells % (Manual) 0 Nucleated RBC % 1 H Metamyelocytes 0 D Hypochromia 0 Toxic Granulation 1+ Platelet Estimate Decreased Decreased Platelet Comment Present No clumping noted Polychromasia 1+ Poikilocytosis 0 Anisocytosis 2+ Microcytosis 1+ Macrocytosis 0 Spherocytes 1+ Tear Drop Cells 1+ PT with INR INR PTT (Actin FS) Puncture Site ABG pH ABG pCO2 at Pt Temp ABG pO2 at Pt Temp ABG HCO3 ABG O2 Sat (Measured) ABG O2 Content ABG Base Excess Leighton Test Oxygen Flow Rate Vent Rate PEEP Pressure Support Vent Sodium Potassium Chloride Carbon Dioxide Anion Gap BUN Creatinine Creat Clearance w eGFR Random Glucose Lactic Acid 1.6 Calcium Phosphorus Magnesium Total Bilirubin AST ALT Alkaline Phosphatase Total Protein Albumin 05/06/18 05/07/18 05/07/18 19:10 05:30 05:30 WBC 6.9 RBC 3.49 L Hgb 9.3 L Hct 28.7 L MCV 82.2 MCH 26.7 MCHC 32.5 RDW 18.4 H Plt Count 63 L MPV 10.1 Absolute Neuts (auto) 5.7 Neutrophils % 82.5 Neutrophils % (Manual) Band Neutrophils % Lymphocytes % 7.6 L Lymphocytes % (Manual) Monocytes % 9.8 Monocytes % (Manual) Eosinophils % 0.0 Eosinophils % (Manual) Basophils % 0.1 Basophils % (Manual) Myelocytes % (Man) Promyelocytes % (Man) Blast Cells % (Manual) Nucleated RBC % 0 Metamyelocytes Hypochromia Toxic Granulation Platelet Estimate Platelet Comment Polychromasia Poikilocytosis Anisocytosis Microcytosis Macrocytosis Spherocytes Tear Drop Cells PT with INR 13.50 H INR 1.14 H PTT (Actin FS) 23.7 L Puncture Site ABG pH ABG pCO2 at Pt Temp ABG pO2 at Pt Temp ABG HCO3 ABG O2 Sat (Measured) ABG O2 Content ABG Base Excess Leighton Test Oxygen Flow Rate Vent Rate PEEP Pressure Support Vent Sodium 145 Potassium 3.1 L Chloride 104 Carbon Dioxide 31 Anion Gap 9 BUN 22 H Creatinine 0.5 L Creat Clearance w eGFR > 60 Random Glucose 181 H Lactic Acid Calcium 7.2 L Phosphorus 1.8 L Magnesium 1.8 Total Bilirubin 3.4 H AST 82 H ALT 46 Alkaline Phosphatase 84 Total Protein 5.5 L Albumin 1.9 L 05/07/18 05/07/18 05:30 06:00 WBC RBC Hgb Hct MCV MCH MCHC RDW Plt Count MPV Absolute Neuts (auto) Neutrophils % Neutrophils % (Manual) Band Neutrophils % Lymphocytes % Lymphocytes % (Manual) Monocytes % Monocytes % (Manual) Eosinophils % Eosinophils % (Manual) Basophils % Basophils % (Manual) Myelocytes % (Man) Promyelocytes % (Man) Blast Cells % (Manual) Nucleated RBC % Metamyelocytes Hypochromia Toxic Granulation Platelet Estimate Platelet Comment Polychromasia Poikilocytosis Anisocytosis Microcytosis Macrocytosis Spherocytes Tear Drop Cells PT with INR INR PTT (Actin FS) Puncture Site Right radial ABG pH 7.48 H ABG pCO2 at Pt Temp 44.9 D ABG pO2 at Pt Temp 85.7 D ABG HCO3 32.7 H ABG O2 Sat (Measured) 96.3 ABG O2 Content 15.9 ABG Base Excess 8.4 H Leighton Test Positive Oxygen Flow Rate 40 Vent Rate 16 PEEP 7.0 Pressure Support Vent 450 Sodium 145 Potassium 3.5 Chloride 104 Carbon Dioxide 32 Anion Gap 9 BUN 21 H Creatinine 0.4 L Creat Clearance w eGFR > 60 Random Glucose 186 H Lactic Acid Calcium 6.9 L* Phosphorus 2.8 Magnesium 1.9 Total Bilirubin 2.8 H AST 93 H ALT 55 Alkaline Phosphatase 134 H Total Protein 5.4 L Albumin 1.9 L Active Medications Generic Name Dose Route Start Last Admin Trade Name Freq PRN Reason Stop Dose Admin Acetaminophen 1,000 mg 05/03/18 17:31 05/04/18 05:55 Ofirmev Injection - IVPB 1,000 mg Q6H PRN Administration FEVER Albuterol Sulfate 1 amp 05/04/18 07:38 Ventolin 0.083% Nebulizer Soln - NEB Q4H PRN SHORT OF BREATH/WHEEZING Albuterol Sulfate 1 amp 05/04/18 08:30 05/07/18 07:58 Ventolin 0.083% Nebulizer Soln - NEB 1 amp RQID ALPA Administration Chlorhexidine Gluconate 1 applic 05/01/18 22:00 05/06/18 23:10 Hibiclens For Decolonization - TP 1 applic HS ALPA Administration Chlorhexidine Gluconate 15 ml 05/06/18 10:00 05/07/18 09:21 Peridex - MM 15 ml BID ALPA Administration Furosemide 40 mg 05/07/18 12:00 Lasix Injection - IVPUSH 05/07/18 12:01 ONCE ONE Hydrocortisone Sodium Succinate 50 mg 05/06/18 10:00 05/07/18 09:19 Solu-Cortef - IVPB 50 mg Q8H-IV ALPA Administration Piperacillin Sod/Tazobactam 50 mls @ 100 mls/hr 05/01/18 21:45 05/07/18 08:41 Sod 3.375 gm/ Dextrose IVPB 100 mls/hr Q6H-IV ALPA Administration Protocol Midazolam HCl 100 mg/ Sodium 100 mls @ 3 mls/hr 05/02/18 15:15 05/07/18 05:00 Chloride IVPB 4 mg/hr TITR ALPA 4 mls/hr Titration Protocol 3 MG/HR Propofol 1,000,000 mcg in 100 mls @ 2.177 mls/hr 05/02/18 15:15 05/06/18 17: 04 Diprivan - IVPB Not Given TITR ALPA Protocol 5 MCG/KG/MIN Fentanyl 500 mcg/ Dextrose 100 mls @ 5 mls/hr 05/03/18 10:45 05/07/18 06:50 IVPB 50 mcg/hr TITR ALPA 10 mls/hr Titration Protocol 25 MCG/HR Potassium Chloride 10 meq in 100 mls @ 100 mls/hr 05/07/18 10:15 Potassium Chloride 10 Meq Premix Ivpb - IVPB 05/07/18 12:14 Q60M ALPA Pantoprazole Sodium 40 mg 05/05/18 10:00 05/07/18 09:37 Protonix Iv IVPUSH 40 mg BID ALPA Administration Thiamine HCl 250 mg 05/05/18 10:00 05/07/18 09:25 Vitamin B1 Injection - IVPB 250 mg DAILY [facility] Administration ASSESSMENT/PLAN: 53yo m with PMH of GI bleed, EtOH abuse, seizures?, HTN, anemia, varicies, presenting to ICU w/ acute GIB bleed, likely upper and etoh abuse. Now found w/ septic shock unclear etiology, and in DTs. NEURO DTs 05/02/18, last drink 1pt of Vodka 05/01/18? intubated sedated on propofol, versed gtt, fentanyl gtt - plan to taper tomorrow Utox - neg s/p banana bag c/w Thiamin 250 qd MVI detox consult seizures? - questionable hx of seizures. was evaluated by Neuro on prior admission in 02/2018. was given keppra but it was stopped as seizure was likely caused by alcohol use. Patient at that time indicated he has always had seizures only in setting of ETOH withdrawl. Pt not having any seizure like activity on this admission. Will cont to monitor. Fall?- Head CT when hemodynamically stable Cardiac/PULM/GI SVT?/sinus tach 2/2 sepsis 05/01/18 - HR was in 170s but unresponsive to adenosine, responded to Lopressor Echo - nl, EF 60% cardio consult R IJ central line 05/01/18, plan to replace tomorrow Hold IVF lasix 40 prn taper stress steroids maintain MAP > 65 O2 as needed sedate for vent synchrony ARDS vent strategy monitor H/H s/p 1 u prbc in ED. transfuse if <7 or significant drop in Hgb c/w active GIB Hold IVF pain ctl EKG: sinus tachycardia. no ST changes, Qtc 512 on admission monitor Qtc cxr - worsening L pulm and pleural changes, may be source of infx, CAP vs aspiration PNA CXR today shows slight R sided improvement w/ lasix elevate head of bed, aspiration precautions FOBT pos protonix BID dcd octreotide - hx varices?, may be source of bleed. H/H stable and has been on for 72 hrs. also starting tube feeds GI consult underwent EGD 07/[address] Hester that revealed severe erosive esophagitis. elevated lactic - trend: 3 --> 1.6 EGD deferred because of Septic shock ID septic shock, unclear etiology, w/ fevers (Tmax 105) and R IJ placement. 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 ucx, bcx, legionella, flu neg rpt ucx, bcx neg HEME Neutropenia and thrombocytopenia coagulopathy, likely related to liver disease, alcohol abuse, and Sepsis unclear etiology, possibly 2/2 PNA fibrinogen nl heme consult vit k 10mg sq x1 dose 05/02/18 vit K 5 sq 05/03/18 K repletion w/ 100mEq over 24 hours - trend K Ideally would like to maintain platelets > 80K-100K and if feasible INR@1.2 transfuse plt and FFP as needed Iron studies reveal Iron deficiency as well as anemia of chronic disease due to low TIBC and elevated ferritin. RENAL Anion Gap acidosis/lactic acidosis w/ multiple lyte abnl consistent w/ ETOH ketoacidosis - hypo K, Mg, Ca, Cl - improving. Gap appears to have closed, lactic still elevated but downtrending HU- likely pre renal - resolved monitor Cr, UOP s/p 7-9 L IVF Hold IVF s/p lasix yesterday w/ good response, more lasix today yeung FEN Hold IVF replete prn tube feeds ppx SCD protonix BID Dispo: ICU monitoring EGD deferred because of Septic shock Head CT when hemodynamically stable Visit type - Emergency Visit Emergency Visit: No - New Patient This patient is new to me today: No - Critical Care Critical Care patient: Yes Total Critical Care Time (in minutes): 35 Critical Care Statement: The care of this patient involved high complexity decision making to prevent further life threatening deterioration of the patient 's condition and/or to evaluate & treat vital organ system(s) failure or risk of failure.
[2018-05-07] MEDS ORDERED: FUROSEMIDE 40 MG/4 ML INJECTABLE VIAL IVPUSH ONE (12:00)
[2018-05-07] MEDS: KCL 10 MEQ IVPB 10 MEQ/100 ML INFUS.BAG IVPB SCH ×2 (13:00→15:56)
[2018-05-07] MEDS: PROPOFOL 1,000,000 MCG/100 ML VIAL IVPB SCH (16:35)
[2018-05-07 17:07] LABS: ANION GAP 7 MMOL/L (8-16); BLOOD UREA NITROGEN 19 mg/dL (7-18); CHLORIDE 105 mmol/L (98-107); CO2 32 mmol/L (21-32); CREATININE 0.5 mg/dL (0.55-1.3); GLUCOSE,RANDOM 237 mg/dL (74-106); POTASSIUM 3.3 mmol/L (3.5-5.1); SODIUM 144 mmol/L (136-145)
[2018-05-07] MEDS: FENTANYL INJECTION 500 MCG in DEXTROSE 5%-WATER - 90 ML IVPB SCH (17:19)
[2018-05-07] MEDS: POTASSIUM CHLORIDE 20 MEQ PREMIX IVPB 100 ML IVPB SCH ×2 (19:47→21:06)
[2018-05-07] MEDS ORDERED: MIDAZOLAM 100 MG/100 ML MG IVPB ONE (19:51)
[2018-05-07] MEDS: MIDAZOLAM 100 MG in SODIUM CHLORIDE 100 ML IVPB SCH (21:00)
[2018-05-07] MEDS: CHLORHEXIDINE GLUCONATE 4% CLEANSER FOR DECOLONIZATION TP SCH (21:06)
[2018-05-07] MEDS: POTASSIUM CHLORIDE ORAL LIQUID 20 MEQ/15 ML NGT SCH (23:13)
[2018-05-07] MEDS: ARTIFICIAL TEARS (POLYVINYL ALCOHOL) OPTH DROPS OU SCH (23:13)
[2018-05-08 00:04] LABS: ANION GAP 6 MMOL/L (8-16); BLOOD UREA NITROGEN 19 mg/dL (7-18); CALCIUM 7.1 mg/dL (8.5-10.1); CHLORIDE 106 mmol/L (98-107); CO2 32 mmol/L (21-32); CREATININE 0.5 mg/dL (0.55-1.3); GLUCOSE,RANDOM 199 mg/dL (74-106); POTASSIUM 3.7 mmol/L (3.5-5.1); SODIUM 145 mmol/L (136-145)
[2018-05-08] MEDS ORDERED: POTASSIUM CHLORIDE 20 MEQ PREMIX IVPB 100 ML IVPB ONE ×3 (00:04→17:55)
[2018-05-08] MEDS ORDERED: fentaNYL CITRATE 250 MCG/5 ML VIAL ONE ×2 (02:47→16:52)
[2018-05-08] MEDS ORDERED: PIPERACILLIN/TAZOBACTAM 3.375 GM VIAL IVPB ONE ×4 (02:48→21:00)
[2018-05-08] MEDS ORDERED: DEXTROSE 5%-WATER - 50 ML IVPB ONE ×4 (02:48→21:01)
[2018-05-08] MEDS: PIPERACILLIN/TAZOB 3.375 GM 3.375 GM in DEXTROSE 5%-WATER - 50 ML IVPB SCH ×4 (04:58→21:01)
[2018-05-08] MEDS: HYDROCORTISONE SOD SUCCINATE 100 MG/2 ML VIAL IVPB SCH (04:59)
[2018-05-08 05:48] LABS: BASO % 0.2 % (0-2.0); HEMATOCRIT 29.9 % (35.4-49); HEMOGLOBIN 9.6 GM/dL (11.7-16.9); LYMPH % 7.1 % (8-40); MCH 26.5 pg (25.7-33.7); MCHC 32.1 g/dl (32.0-35.9); MEAN CELL VOLUME 82.6 fl (80-96); MEAN PLT VOLUME 9.5 fl (7.5-11.1); MONO % 9.6 % (3.8-10.2); NEUT % 83.1 % (42.8-82.8); PLATELET COUNT 98 K/MM3 (134-434); RBC 3.62 M/mm3 (4.00-5.60); RDW 18.1 % (11.9-15.9); WHITE BLOOD COUNT 7.8 K/mm3 (4.0-10.0)
[2018-05-08] MEDS ORDERED: MIDAZOLAM 100 MG/100 ML MG IVPB ONE ×2 (06:38→20:22)
[2018-05-08 06:46] LABS: ALK PHOS 201 U/L (45-117); ANION GAP 7 MMOL/L (8-16); BILIRUBIN,TOTAL 1.8 mg/dL (0.2-1); BLOOD UREA NITROGEN 18 mg/dL (7-18); CHLORIDE 105 mmol/L (98-107); CO2 32 mmol/L (21-32); CREATININE 0.4 mg/dL (0.55-1.3); GLUCOSE,RANDOM 184 mg/dL (74-106); MAGNESIUM 1.8 mg/dL (1.8-2.4); PHOSPHOROUS 1.7 mg/dL (2.5-4.9); POTASSIUM 3.6 mmol/L (3.5-5.1); SGOT/AST 92 U/L (15-37); SGPT/ALT 71 U/L (13-61); SODIUM 144 mmol/L (136-145); TOT PROT 5.9 g/dl (6.4-8.2)
[2018-05-08] MEDS: INSULIN SLIDING SCALE (NOVOLOG) 1 VIAL SQ SCH ×2 (06:50→16:40)
[2018-05-08 06:55] LABS: ARTERIAL BLD GAS O2 SATURATION 96.6 % (90-98.9); ARTERIAL BLOOD GAS BASE EXCESS 6.2 meq/l (-2-2); ARTERIAL BLOOD GAS PCO2 42.3 mmHg (35-45); ARTERIAL BLOOD GAS PO2 90.2 mmHg (80-100); ARTERIAL BLOOD GAS pH 7.47 (7.35-7.45)
[2018-05-08 07:08] LABS: ALLENS TEST POSITIVE
[2018-05-08] MEDS: ALBUTEROL SO4 0.083% IH SOL 2.5 MG/3 ML VIAL.NEB. NEB SCH ×4 (07:25→20:59)
--- NOTE | 2018-05-08 08:20 | PN ---
Physical Exam: SUBJECTIVE: Patient seen and examined in the ICU. remains intubated and weaning sedation, lethargic but responsive to commands. failed CPAP. Off pressors. EGD and Head CT deferred until pt more stable. afebrile overnight. lasix yesterday, good UOP. No active bleeding. OBJECTIVE: Vital Signs Period Temp Pulse Resp BP Sys/Boykin Pulse Ox Last 24 Hr 98.7 F-99.1 F 59-83 16-17 112-149/50-106 99-100 GENERAL: intubated and weaning sedation, lethargic but responsive to commands HEENT: NCAT, ETT, OGT NECK: supple, R IJ LUNGS: crackles b/l HEART:tachy RR, normal S1 and S2 without m/r/g ABDOMEN: Soft, ND normoactive bowel sounds MUSCULOSKELETAL: No bony deformities or tenderness. UPPER EXTREMITIES: 2+ pulses, warm, well-perfused. No cyanosis. No clubbing. Cap refill <2 seconds. +1 edema. LOWER EXTREMITIES: 2+ pulses, warm, well-perfused. No calf tenderness. No peripheral edema. NEUROLOGICAL: intubated sedated +cough reflex SKIN: Warm, dry, normal turgor, no rashes or lesions noted. Laboratory Results - last 24 hr 05/07/18 05/07/18 05/07/18 05:30 05:30 16:13 WBC RBC Hgb Hct MCV MCH MCHC RDW Plt Count MPV Absolute Neuts (auto) Neutrophils % Neutrophils % (Manual) 74.5 Band Neutrophils % 9.2 Lymphocytes % Lymphocytes % (Manual) 4.1 L D Monocytes % Monocytes % (Manual) 4 Eosinophils % Eosinophils % (Manual) 0.0 Basophils % Basophils % (Manual) 0.0 Myelocytes % (Man) 0 D Promyelocytes % (Man) 0 Blast Cells % (Manual) 1 H D Nucleated RBC % Metamyelocytes 0 Hypochromia 0 Platelet Estimate Decreased Platelet Comment Present Polychromasia 0 Poikilocytosis 0 Anisocytosis 2+ Microcytosis 2+ Macrocytosis 0 Puncture Site ABG pH ABG pCO2 at Pt Temp ABG pO2 at Pt Temp ABG HCO3 ABG O2 Sat (Measured) ABG O2 Content ABG Base Excess [place] Test O2 Delivery Device Oxygen Flow Rate Vent Rate PEEP Pressure Support Vent Sodium 144 Potassium 3.3 L Chloride 105 Carbon Dioxide 32 Anion Gap 7 L BUN 19 H Creatinine 0.5 L Creat Clearance w eGFR > 60 Random Glucose 237 H Calcium 6.9 L* 7.0 L Phosphorus Magnesium Total Bilirubin AST ALT Alkaline Phosphatase Total Protein Albumin 05/07/18 05/08/18 05/08/18 23:20 05:15 05:15 WBC 7.8 RBC 3.62 L Hgb 9.6 L Hct 29.9 L MCV 82.6 MCH 26.5 MCHC 32.1 RDW 18.1 H Plt Count 98 L D MPV 9.5 Absolute Neuts (auto) 6.5 Neutrophils % 83.1 H Neutrophils % (Manual) Band Neutrophils % Lymphocytes % 7.1 L Lymphocytes % (Manual) Monocytes % 9.6 Monocytes % (Manual) Eosinophils % 0.0 Eosinophils % (Manual) Basophils % 0.2 Basophils % (Manual) Myelocytes % (Man) Promyelocytes % (Man) Blast Cells % (Manual) Nucleated RBC % 0 Metamyelocytes Hypochromia Platelet Estimate Platelet Comment Polychromasia Poikilocytosis Anisocytosis Microcytosis Macrocytosis Puncture Site ABG pH ABG pCO2 at Pt Temp ABG pO2 at Pt Temp ABG HCO3 ABG O2 Sat (Measured) ABG O2 Content ABG Base Excess [place] Test O2 Delivery Device Oxygen Flow Rate Vent Rate PEEP Pressure Support Vent Sodium 145 144 Potassium 3.7 3.6 Chloride 106 105 Carbon Dioxide 32 32 Anion Gap 6 L 7 L BUN 19 H 18 Creatinine 0.5 L 0.4 L Creat Clearance w eGFR > 60 > 60 Random Glucose 199 H 184 H Calcium 7.1 L 7.0 L Phosphorus 1.7 L Magnesium 1.8 Total Bilirubin 1.8 H AST 92 H ALT 71 H Alkaline Phosphatase 201 H Total Protein 5.9 L Albumin 2.0 L 05/08/18 06:00 WBC RBC Hgb Hct MCV MCH MCHC RDW Plt Count MPV Absolute Neuts (auto) Neutrophils % Neutrophils % (Manual) Band Neutrophils % Lymphocytes % Lymphocytes % (Manual) Monocytes % Monocytes % (Manual) Eosinophils % Eosinophils % (Manual) Basophils % Basophils % (Manual) Myelocytes % (Man) Promyelocytes % (Man) Blast Cells % (Manual) Nucleated RBC % Metamyelocytes Hypochromia Platelet Estimate Platelet Comment Polychromasia Poikilocytosis Anisocytosis Microcytosis Macrocytosis Puncture Site Right radial ABG pH 7.47 H ABG pCO2 at Pt Temp 42.3 ABG pO2 at Pt Temp 90.2 ABG HCO3 30.1 H ABG O2 Sat (Measured) 96.6 ABG O2 Content 14.2 L ABG Base Excess 6.2 H [place] Test Positive O2 Delivery Device Vent Oxygen Flow Rate 40 Vent Rate 16 PEEP 7.0 Pressure Support Vent 450 Sodium Potassium Chloride Carbon Dioxide Anion Gap BUN Creatinine Creat Clearance w eGFR Random Glucose Calcium Phosphorus Magnesium Total Bilirubin AST ALT Alkaline Phosphatase Total Protein Albumin Active Medications Generic Name Dose Route Start Last Admin Trade Name Freq PRN Reason Stop Dose Admin Acetaminophen 1,000 mg 05/03/18 17:31 05/04/18 05:55 Ofirmev Injection - IVPB 1,000 mg Q6H PRN Administration FEVER Albuterol Sulfate 1 amp 05/04/18 07:38 Ventolin 0.083% Nebulizer Soln - NEB Q4H PRN SHORT OF BREATH/WHEEZING Albuterol Sulfate 1 amp 05/04/18 08:30 05/08/18 07:25 Ventolin 0.083% Nebulizer Soln - NEB 1 amp RQID [facility] Administration Artificial Tears 1 drop 05/07/18 22:45 05/07/18 23:13 Artificial Tears OU 1 drop BID [facility] Administration Chlorhexidine Gluconate 1 applic 05/01/18 22:00 05/07/18 21:06 Hibiclens For Decolonization - TP 1 applic HS [facility] Administration Chlorhexidine Gluconate 15 ml 05/06/18 10:00 05/07/18 21:06 Peridex - MM 15 ml BID [facility] Administration Furosemide 40 mg 05/08/18 08:01 Lasix Injection - IVPUSH 05/08/18 08:02 ONCE ONE Hydrocortisone Sodium Succinate 50 mg 05/08/18 10:00 Solu-Cortef - IVPB BID [facility] Piperacillin Sod/Tazobactam 50 mls @ 100 mls/hr 05/01/18 21:45 05/08/18 04:58 Sod 3.375 gm/ Dextrose IVPB 100 mls/hr Q6H-IV [facility] Administration Protocol Midazolam HCl 100 mg/ Sodium 100 mls @ 3 mls/hr 05/02/18 15:15 05/07/18 21:00 Chloride IVPB 4 mg/hr TITR [facility] 4 mls/hr Administration Protocol 3 MG/HR Propofol 1,000,000 mcg in 100 mls @ 2.177 mls/hr 05/02/18 15:15 05/07/18 16: 35 Diprivan - IVPB 20 mcg/kg/min TITR [facility] 8.709 mls/hr Administration Protocol 5 MCG/KG/MIN Fentanyl 500 mcg/ Dextrose 100 mls @ 5 mls/hr 05/03/18 10:45 05/07/18 17:19 IVPB 50 mcg/hr TITR [facility] 10 mls/hr Administration Protocol 25 MCG/HR Potassium Phosphate 30 mm/ 260 mls @ 62.5 mls/hr 05/08/18 08:02 Sodium Chloride IVPB 05/08/18 12:11 ONCE ONE Insulin Aspart 1 vial 05/08/18 07:00 05/08/18 06:50 Novolog Vial Sliding Scale - SQ 4 unit BIDAC [facility] Administration Protocol Magnesium Oxide 800 mg 05/08/18 08:04 Mag-Ox - PO 05/08/18 08:05 ONCE ONE Pantoprazole Sodium 40 mg 05/05/18 10:00 05/07/18 20:59 Protonix Iv IVPUSH 40 mg BID [facility] Administration Potassium Chloride 20 meq 05/07/18 22:00 05/07/18 23:13 Potassium Chloride Oral Liquid NGT 20 meq BID [facility] Administration Potassium Chloride 20 meq 05/08/18 08:03 Potassium Chloride 20 Meq Premix Ivpb - IVPB 05/08/18 08:04 ONCE ONE Thiamine HCl 250 mg 05/05/18 10:00 05/07/18 09:25 Vitamin B1 Injection - IVPB 250 mg DAILY [facility] Administration ASSESSMENT/PLAN: 53yo m with PMH of GI bleed, EtOH abuse, seizures?, HTN, anemia, varicies, presenting to ICU w/ acute GIB bleed, likely upper and etoh abuse. Now found w/ septic shock unclear etiology, and in DTs. NEURO DTs 05/02/18, last drink 1pt of Vodka 05/01/18? intubated sedated on propofol, versed gtt, fentanyl gtt - weaning sedation, lethargic but responsive to commands Utox - neg s/p banana bag c/w Thiamin 250 qd MVI detox consult seizures? - questionable hx of seizures. was evaluated by Neuro on prior admission in 02/2018. was given keppra but it was stopped as seizure was likely caused by alcohol use. Patient at that time indicated he has always had seizures only in setting of ETOH withdrawl. Pt not having any seizure like activity on this admission. Will cont to monitor. Fall?- Head CT when hemodynamically stable Cardiac/PULM/GI SVT?/sinus tach 2/2 sepsis 05/01/18 - HR was in 170s but unresponsive to adenosine, responded to Lopressor Echo - nl, EF 60% cardio consult R IJ central line 05/01/18, no issues w/ line currently. will monitor and likely remove an 1-2 days when pt is more stable and ready for extubation Hold IVF lasix 40 bid prn taper stress steroids maintain MAP > 65 O2 as needed sedate for vent synchrony - failed CPAP today ARDS vent strategy monitor H/H s/p 1 u prbc in ED. transfuse if <7 or significant drop in Hgb c/w active GIB Hold IVF pain ctl EKG: sinus tachycardia. no ST changes, Qtc 512 on admission monitor Qtc cxr - worsening L pulm and pleural changes, may be source of infx, CAP vs aspiration PNA CXR today shows slight R sided improvement w/ lasix elevate head of bed, aspiration precautions FOBT pos protonix BID dcd octreotide - hx varices?, may be source of bleed. H/H stable and has been on for 72 hrs. also on tube feeds GI consult underwent EGD 07/[address] Hester that revealed severe erosive esophagitis. elevated lactic - trend: 3 --> 1.6 EGD deferred because of Septic shock ID septic shock, unclear etiology, w/ fevers (Tmax 105) and R IJ placement. 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 ucx, bcx, legionella, flu neg rpt ucx, bcx neg HEME Neutropenia and thrombocytopenia coagulopathy, likely related to liver disease, alcohol abuse, and Sepsis unclear etiology, possibly 2/2 PNA fibrinogen nl heme consult vit k 10mg sq x1 dose 05/02/18 vit K 5 sq 05/03/18 Ideally would like to maintain platelets > 80K-100K and if feasible INR@1.2 transfuse plt and FFP as needed Iron studies reveal Iron deficiency as well as anemia of chronic disease due to low TIBC and elevated ferritin. RENAL Anion Gap acidosis/lactic acidosis w/ multiple lyte abnl consistent w/ ETOH ketoacidosis - hypo K, Mg, Ca, Cl - resolved HU- likely pre renal - resolved monitor Cr, UOP s/p 7-9 L IVF Hold IVF s/p lasix yesterday w/ good response, more lasix today yeung FEN Hold IVF replete prn tube feeds ppx SCD protonix BID Dispo: ICU monitoring EGD deferred because of Septic shock Head CT when hemodynamically stable Visit type - Emergency Visit Emergency Visit: Yes ED Registration Date: 05/01/18 Care time: The patient presented to the Emergency Department on the above date and was hospitalized for further evaluation of their emergent condition. - New Patient This patient is new to me today: Yes Date on this admission: 05/08/18 - Critical Care Critical Care patient: Yes Total Critical Care Time (in minutes): 38 Critical Care Statement: The care of this patient involved high complexity decision making to prevent further life threatening deterioration of the patient 's condition and/or to evaluate & treat vital organ system(s) failure or risk of failure.
[2018-05-08] MEDS ORDERED: PT OWN MED DRAWER 7, Y5N ONE ×2 (08:26→21:48)
[2018-05-08] MEDS ORDERED: POTASSIUM PHOSPHATE 30 MM in SODIUM CHLORIDE 250 ML IVPB ONE ×2 (09:00→18:15)
[2018-05-08] MEDS ORDERED: MAGNESIUM OXIDE 400 MG TABLET (FP) PO ONE (09:00)
[2018-05-08] MEDS ORDERED: FUROSEMIDE 40 MG/4 ML INJECTABLE VIAL IVPUSH ONE ×4 (09:00→21:00)
[2018-05-08] MEDS: CHLORHEXIDINE GLUCONATE 0.12% 15ML CUP MM SCH ×2 (09:01→22:12)
[2018-05-08] MEDS: POTASSIUM CHLORIDE ORAL LIQUID 20 MEQ/15 ML NGT SCH ×2 (09:01→22:17)
[2018-05-08] MEDS: HYDROCORTISONE SOD SUCCINATE 100 MG/2 ML VIAL IVPUSH SCH ×2 (09:01→22:14)
[2018-05-08] MEDS: PANTOPRAZOLE SODIUM 40 MG VIAL IVPUSH SCH ×2 (09:01→22:13)
[2018-05-08] MEDS: THIAMINE HCL 200 MG/2 ML VIAL IVPB SCH (09:03)
[2018-05-08] MEDS: KCL 10 MEQ IVPB 10 MEQ/100 ML INFUS.BAG IVPB SCH (09:19)
[2018-05-08] MEDS: ARTIFICIAL TEARS (POLYVINYL ALCOHOL) OPTH DROPS OU SCH ×2 (09:27→22:12)
[2018-05-08] MEDS: MULTIVIT-MINERALS ORAL LIQUID PO SCH (10:05)
[2018-05-08] MEDS: PROPOFOL 1,000,000 MCG/100 ML VIAL IVPB SCH ×2 (10:30→16:03)
[2018-05-08] MEDS: FENTANYL INJECTION 500 MCG in DEXTROSE 5%-WATER - 90 ML IVPB SCH ×2 (11:45→17:01)
[2018-05-08 11:56] LABS: ANISOCYTOSIS 2+; MACROCYTOSIS 0; PLATELET ESTIMATE DECREASED
--- NOTE | 2018-05-08 11:57 | PN ---
Teaching Attending Note Name of Resident: Dre Martinez ATTENDING PHYSICIAN STATEMENT I saw and evaluated the patient. I reviewed the resident's note and discussed the case with the resident. I agree with the resident's findings and plan as documented. SUBJECTIVE: Pt seen and examined in the ICU. Remains intubated, arousable on sedation. No pressors. No fevers recorded. OBJECTIVE: Vital Signs Period Temp Pulse Resp BP Sys/Boykin Pulse Ox Last 24 Hr 97.6 F-99.1 F 59-88 16-20 112-150/50-106 99-99 Intake & Output 05/05/18 05/06/18 05/07/18 05/08/18 23:59 23:59 23:59 23:59 Intake Total 2286.6 2786 3194.2 2141.3 Output Total 2400 3850 2800 5400 Balance -113.4 -1064 394.2 -3258.7 Weight 100.2 kg 96.417 kg 93.984 kg 95.617 kg Gen: intubated, arousable Heart: RRR Lung: scatered rhonchi bilaterally Abd: soft, nontender Ext: + edema CBC, BMP 05/08/18 05:15 05/08/18 05:15 Active Medications Acetaminophen (Ofirmev Injection -) 1,000 mg IVPB Q6H PRN PRN Reason: FEVER Last Admin: 05/04/18 05:55 Dose: 1,000 mg Albuterol Sulfate (Ventolin 0.083% Nebulizer Soln -) 1 amp NEB Q4H PRN PRN Reason: SHORT OF BREATH/WHEEZING Albuterol Sulfate (Ventolin 0.083% Nebulizer Soln -) 1 amp NEB RQID [facility] Last Admin: 05/08/18 07:25 Dose: 1 amp Artificial Tears (Artificial Tears) 1 drop OU BID [facility] Last Admin: 05/08/18 09:27 Dose: 1 drop Chlorhexidine Gluconate (Hibiclens For Decolonization -) 1 applic TP HS [facility] Last Admin: 05/07/18 21:06 Dose: 1 applic Chlorhexidine Gluconate (Peridex -) 15 ml MM BID [facility] Last Admin: 05/08/18 09:01 Dose: 15 ml Furosemide (Lasix Injection -) 40 mg IVPUSH ONCE ONE Stop: 05/08/18 18:01 Hydrocortisone Sodium Succinate (Solu-Cortef -) 50 mg IVPUSH BID [facility] Last Admin: 05/08/18 09:01 Dose: 50 mg Piperacillin Sod/Tazobactam (Sod 3.375 gm/ Dextrose) 50 mls @ 100 mls/hr IVPB Q6H-IV [facility]; Protocol Last Admin: 05/08/18 08:29 Dose: 100 mls/hr Midazolam HCl 100 mg/ Sodium (Chloride) 100 mls @ 3 mls/hr IVPB TITR [facility]; Protocol Last Titration: 05/08/18 08:00 Dose: 5 mg/hr, 5 mls/hr Propofol (Diprivan -) 1,000,000 mcg in 100 mls @ 2.177 mls/hr IVPB TITR [facility]; Protocol Last Admin: 05/08/18 10:30 Dose: 22.96 mcg/kg/min, 10 mls/hr Fentanyl 500 mcg/ Dextrose 100 mls @ 5 mls/hr IVPB TITR [facility]; Protocol Last Admin: 05/08/18 11:45 Dose: Not Given Potassium Phosphate 30 mm/ (Sodium Chloride) 260 mls @ 65 mls/hr IVPB ONCE ONE Stop: 05/08/18 12:59 Last Admin: 05/08/18 10:04 Dose: 65 mls/hr Insulin Aspart (Novolog Vial Sliding Scale -) 1 vial SQ BIDAC [facility]; Protocol Last Admin: 05/08/18 06:50 Dose: 4 unit Pantoprazole Sodium (Protonix Iv) 40 mg IVPUSH BID [facility] Last Admin: 05/08/18 09:01 Dose: 40 mg Potassium Chloride (Potassium Chloride Oral Liquid) 20 meq NGT BID [facility] Last Admin: 05/08/18 09:01 Dose: 20 meq Thiamine HCl (Vitamin B1 Injection -) 250 mg IVPB DAILY [facility] Last Admin: 05/08/18 09:03 Dose: 250 mg ASSESSMENT AND PLAN: Acute Hypoxic Respiratory Failure Pneumonia likely Aspiration Septic Shock resolving GI Bleed r/o Varices Alcohol Abuse/Withdrawal Thrombocytopenia Volume Overload - continue antibiotics - off pressors, maintain MAP >65 - continue protonix - monitor CBC - transfuse as needed - lasix BID - monitor urine output, creatinine - keep net negative - taper off hydrocortisone - decreased PEEP to 5 - daily sedation vacations to assess mental status - spontaneous breathing trials as tolerated when mental status improved - DVT/GI prophylaxis - continue ICU monitoring critical care time spent in reviewing chart, evaluating patient and formulating plan 35 min
--- NOTE | 2018-05-08 12:46 | PN ---
Progress Note, Physician History of Present Illness: Sedated and intubated on pressor support, too unstable for EGD. - Current Medication List Current Medications: Active Medications Acetaminophen (Ofirmev Injection -) 1,000 mg IVPB Q6H PRN PRN Reason: FEVER Last Admin: 05/04/18 05:55 Dose: 1,000 mg Albuterol Sulfate (Ventolin 0.083% Nebulizer Soln -) 1 amp NEB Q4H PRN PRN Reason: SHORT OF BREATH/WHEEZING Albuterol Sulfate (Ventolin 0.083% Nebulizer Soln -) 1 amp NEB RQID [facility] Last Admin: 05/08/18 07:25 Dose: 1 amp Artificial Tears (Artificial Tears) 1 drop OU BID [facility] Last Admin: 05/08/18 09:27 Dose: 1 drop Chlorhexidine Gluconate (Hibiclens For Decolonization -) 1 applic TP HS [facility] Last Admin: 05/07/18 21:06 Dose: 1 applic Chlorhexidine Gluconate (Peridex -) 15 ml MM BID [facility] Last Admin: 05/08/18 09:01 Dose: 15 ml Furosemide (Lasix Injection -) 40 mg IVPUSH ONCE ONE Stop: 05/08/18 18:01 Hydrocortisone Sodium Succinate (Solu-Cortef -) 50 mg IVPUSH BID [facility] Last Admin: 05/08/18 09:01 Dose: 50 mg Piperacillin Sod/Tazobactam (Sod 3.375 gm/ Dextrose) 50 mls @ 100 mls/hr IVPB Q6H-IV [facility]; Protocol Last Admin: 05/08/18 08:29 Dose: 100 mls/hr Midazolam HCl 100 mg/ Sodium (Chloride) 100 mls @ 3 mls/hr IVPB TITR [facility]; Protocol Last Titration: 05/08/18 08:00 Dose: 5 mg/hr, 5 mls/hr Propofol (Diprivan -) 1,000,000 mcg in 100 mls @ 2.177 mls/hr IVPB TITR [facility]; Protocol Last Admin: 05/08/18 10:30 Dose: 22.96 mcg/kg/min, 10 mls/hr Fentanyl 500 mcg/ Dextrose 100 mls @ 5 mls/hr IVPB TITR [facility]; Protocol Last Admin: 05/08/18 11:45 Dose: Not Given Potassium Phosphate 30 mm/ (Sodium Chloride) 260 mls @ 65 mls/hr IVPB ONCE ONE Stop: 05/08/18 12:59 Last Admin: 05/08/18 10:04 Dose: 65 mls/hr Insulin Aspart (Novolog Vial Sliding Scale -) 1 vial SQ BIDAC [facility]; Protocol Last Admin: 05/08/18 06:50 Dose: 4 unit Pantoprazole Sodium (Protonix Iv) 40 mg IVPUSH BID [facility] Last Admin: 05/08/18 09:01 Dose: 40 mg Potassium Chloride (Potassium Chloride Oral Liquid) 20 meq NGT BID [facility] Last Admin: 05/08/18 09:01 Dose: 20 meq Thiamine HCl (Vitamin B1 Injection -) 250 mg IVPB DAILY [facility] Last Admin: 05/08/18 09:03 Dose: 250 mg - Objective Vital Signs: Vital Signs Temperature 97.6 F 05/08/18 10:14 Pulse Rate 88 05/08/18 10:09 Respiratory Rate 18 05/08/18 11:37 Blood Pressure 137/85 05/08/18 10:09 O2 Sat by Pulse Oximetry (%) 99 05/08/18 09:00 Constitutional: Yes: No Distress, Calm, Thin Neck: Yes: Supple Cardiovascular: Yes: Regular Rate and Rhythm Respiratory: Yes: Intubated, Mechanically Ventilated Gastrointestinal: Yes: Soft, Hypoactive Bowel Sounds Edema: No Labs: CBC, BMP 05/08/18 05:15 05/08/18 05:15 INR, PTT INR 1.14 (0.83-1.09) H 05/07/18 05:30 Fibrinogen 386.0 mg/dL (238-498) 05/03/18 05:15 - ....Imaging Chest X-ray: Report Reviewed (Stable pulm edema) Problem List - Problems (1) GI bleed Code(s): K92.2 - GASTROINTESTINAL HEMORRHAGE, UNSPECIFIED Qualifiers: GI bleed type/associated pathology: gastrointestinal hemorrhage with hematemesis Qualified Code(s): K92.0 - Hematemesis (2) Septic shock Code(s): A41.9 - SEPSIS, UNSPECIFIED ORGANISM; R65.21 - SEVERE SEPSIS WITH SEPTIC SHOCK (3) Erosive esophagitis Code(s): K22.10 - ULCER OF ESOPHAGUS WITHOUT BLEEDING (4) Hematemesis Code(s): K92.0 - HEMATEMESIS Qualifiers: Nausea presence: unspecified Qualified Code(s): K92.0 - Hematemesis (5) Seizure Code(s): R56.9 - UNSPECIFIED CONVULSIONS (6) Thrombocytopenia Code(s): D69.6 - THROMBOCYTOPENIA, UNSPECIFIED (7) Alcohol abuse Code(s): F10.10 - ALCOHOL ABUSE, UNCOMPLICATED (8) Jessica-Gimenez tear Code(s): K22.6 - GASTRO-ESOPHAGEAL LACERATION-HEMORRHAGE SYNDROME (9) UGIB (upper gastrointestinal bleed) Code(s): K92.2 - GASTROINTESTINAL HEMORRHAGE, UNSPECIFIED (10) Hyperlipidemia Code(s): E78.5 - HYPERLIPIDEMIA, UNSPECIFIED Qualifiers: Hyperlipidemia type: pure hypercholesterolemia Qualified Code(s): E78.00 - Pure hypercholesterolemia, unspecified; E78.0 - Pure hypercholesterolemia (11) Acute respiratory failure Code(s): J96.00 - ACUTE RESPIRATORY FAILURE, UNSP W HYPOXIA OR HYPERCAPNIA Qualifiers: Respiratory failure complication: hypoxia Qualified Code(s): J96.01 - Acute respiratory failure with hypoxia Assessment/Plan 05/02/2018 Echo: Normal LV and RV size and fxn, LVEF 50%, mild MR, TR, AR 1. Acute hypercapneic hypoxic respiratory failure with non-cardiogenic pulmonary edema/ARDS, persistent chest x-ray abnormality 2. Aspiration pneumonia with resolved septic shock/hypotension 3. Acute upper gastrointestinal bleed with history of erosive esophagitis and varices 4. History of ETOH/alcohol abuse 5. Seizure disorder 6. Thrombocytopenia/Anemia 7. Hypokalemia, resolved PLAN: 1. Ventilator management as as per the ICU team 2. Wean off sedatives as tolerated 3. Continue to administer Lasix on prn bases with close monitoring of diuretic response, renal function and electrolytes 4. Monitor CBC (Hg and Platelet) and transfuse as needed. 5. EGD as per GI service, continue Protonix IV 6. Complete abx course, taper steroid, BD as needed, sedation holiday to assess mental status, spontaneous breathing trials as tolerated when mental status improved 7. DVT/GI prophylaxis
--- NOTE | 2018-05-08 15:22 | PN ---
Progress Note, Physician History of Present Illness: continues to be intubated sedated swollen - Current Medication List Current Medications: Active Medications Acetaminophen (Ofirmev Injection -) 1,000 mg IVPB Q6H PRN PRN Reason: FEVER Last Admin: 05/04/18 05:55 Dose: 1,000 mg Albuterol Sulfate (Ventolin 0.083% Nebulizer Soln -) 1 amp NEB Q4H PRN PRN Reason: SHORT OF BREATH/WHEEZING Albuterol Sulfate (Ventolin 0.083% Nebulizer Soln -) 1 amp NEB RQID [facility] Last Admin: 05/08/18 11:20 Dose: 1 amp Artificial Tears (Artificial Tears) 1 drop OU BID [facility] Last Admin: 05/08/18 09:27 Dose: 1 drop Chlorhexidine Gluconate (Hibiclens For Decolonization -) 1 applic TP HS [facility] Last Admin: 05/07/18 21:06 Dose: 1 applic Chlorhexidine Gluconate (Peridex -) 15 ml MM BID [facility] Last Admin: 05/08/18 09:01 Dose: 15 ml Furosemide (Lasix Injection -) 40 mg IVPUSH ONCE ONE Stop: 05/08/18 18:01 Hydrocortisone Sodium Succinate (Solu-Cortef -) 50 mg IVPUSH BID [facility] Last Admin: 05/08/18 09:01 Dose: 50 mg Piperacillin Sod/Tazobactam (Sod 3.375 gm/ Dextrose) 50 mls @ 100 mls/hr IVPB Q6H-IV [facility]; Protocol Last Admin: 05/08/18 14:21 Dose: 100 mls/hr Midazolam HCl 100 mg/ Sodium (Chloride) 100 mls @ 3 mls/hr IVPB TITR [facility]; Protocol Last Titration: 05/08/18 08:00 Dose: 5 mg/hr, 5 mls/hr Propofol (Diprivan -) 1,000,000 mcg in 100 mls @ 2.177 mls/hr IVPB TITR [facility]; Protocol Last Titration: 05/08/18 12:00 Dose: 39.04 mcg/kg/min, 17 mls/hr Fentanyl 500 mcg/ Dextrose 100 mls @ 5 mls/hr IVPB TITR [facility]; Protocol Last Admin: 05/08/18 11:45 Dose: Not Given Insulin Aspart (Novolog Vial Sliding Scale -) 1 vial SQ BIDAC [facility]; Protocol Last Admin: 05/08/18 06:50 Dose: 4 unit Pantoprazole Sodium (Protonix Iv) 40 mg IVPUSH BID [facility] Last Admin: 05/08/18 09:01 Dose: 40 mg Potassium Chloride (Potassium Chloride Oral Liquid) 20 meq NGT BID [facility] Last Admin: 05/08/18 09:01 Dose: 20 meq Thiamine HCl (Vitamin B1 Injection -) 250 mg IVPB DAILY [facility] Last Admin: 05/08/18 09:03 Dose: 250 mg - Objective Vital Signs: Vital Signs Temperature 99.8 F H 05/08/18 14:00 Pulse Rate 98 H 05/08/18 14:00 Respiratory Rate 20 05/08/18 14:00 Blood Pressure 136/84 05/08/18 14:00 O2 Sat by Pulse Oximetry (%) 99 05/08/18 09:00 Constitutional: Yes: Other Cardiovascular: Yes: Regular Rate and Rhythm Respiratory: Yes: Intubated, Mechanically Ventilated Gastrointestinal: Yes: Normal Bowel Sounds, Soft Musculoskeletal: Yes: WNL Extremities: Yes: Other Edema: LLE: 1+, RLE: 1+ Neurological: Yes: Other Labs: CBC, BMP 05/08/18 05:15 05/08/18 05:15 INR, PTT INR 1.14 (0.83-1.09) H 05/07/18 05:30 Fibrinogen 386.0 mg/dL (238-498) 05/03/18 05:15 - ....Imaging Chest X-ray: Report Reviewed, Image Reviewed Assessment/Plan Acute GI bleed suspected Variceal in nature ETOH abuse Seizures HTN Anemia Suspected Septic Shock: source unclear Coagulopathy fevers plan abx as per icu monitor for dts monitor for bleeding close watch for fevers patient probably with aspiration stabilizing plan to diurese cc 40 min
[2018-05-08] MEDS ORDERED: valACYclovir HCL 1000 MG TABLET PO ONE (16:09)
[2018-05-08] MEDS: MIDAZOLAM 100 MG in SODIUM CHLORIDE 100 ML IVPB SCH ×2 (16:32→20:24)
[2018-05-08] MEDS ORDERED: valACYclovir HCL 1000 MG TABLET NGT ONE (16:39)
--- NOTE | 2018-05-08 17:00 | PN ---
Progress Note, Physician History of Present Illness: intubated and sedated not on pressors - Current Medication List Current Medications: Active Medications Acetaminophen (Ofirmev Injection -) 1,000 mg IVPB Q6H PRN PRN Reason: FEVER Last Admin: 05/04/18 05:55 Dose: 1,000 mg Albuterol Sulfate (Ventolin 0.083% Nebulizer Soln -) 1 amp NEB Q4H PRN PRN Reason: SHORT OF BREATH/WHEEZING Albuterol Sulfate (Ventolin 0.083% Nebulizer Soln -) 1 amp NEB RQID [facility] Last Admin: 05/08/18 16:37 Dose: 1 amp Artificial Tears (Artificial Tears) 1 drop OU BID [facility] Last Admin: 05/08/18 09:27 Dose: 1 drop Chlorhexidine Gluconate (Hibiclens For Decolonization -) 1 applic TP HS [facility] Last Admin: 05/07/18 21:06 Dose: 1 applic Chlorhexidine Gluconate (Peridex -) 15 ml MM BID [facility] Last Admin: 05/08/18 09:01 Dose: 15 ml Furosemide (Lasix Injection -) 40 mg IVPUSH ONCE ONE Stop: 05/08/18 18:01 Hydrocortisone Sodium Succinate (Solu-Cortef -) 50 mg IVPUSH BID [facility] Last Admin: 05/08/18 09:01 Dose: 50 mg Piperacillin Sod/Tazobactam (Sod 3.375 gm/ Dextrose) 50 mls @ 100 mls/hr IVPB Q6H-IV [facility]; Protocol Last Admin: 05/08/18 14:21 Dose: 100 mls/hr Midazolam HCl 100 mg/ Sodium (Chloride) 100 mls @ 3 mls/hr IVPB TITR [facility]; Protocol Last Admin: 05/08/18 16:32 Dose: Not Given Propofol (Diprivan -) 1,000,000 mcg in 100 mls @ 2.177 mls/hr IVPB TITR [facility]; Protocol Last Admin: 05/08/18 16:03 Dose: 39.04 mcg/kg/min, 17 mls/hr Fentanyl 500 mcg/ Dextrose 100 mls @ 5 mls/hr IVPB TITR [facility]; Protocol Last Admin: 05/08/18 11:45 Dose: Not Given Insulin Aspart (Novolog Vial Sliding Scale -) 1 vial SQ BIDAC [facility]; Protocol Last Admin: 05/08/18 16:40 Dose: 4 unit Pantoprazole Sodium (Protonix Iv) 40 mg IVPUSH BID [facility] Last Admin: 05/08/18 09:01 Dose: 40 mg Potassium Chloride (Potassium Chloride Oral Liquid) 20 meq NGT BID [facility] Last Admin: 05/08/18 09:01 Dose: 20 meq Thiamine HCl (Vitamin B1 Injection -) 250 mg IVPB DAILY [facility] Last Admin: 05/08/18 09:03 Dose: 250 mg Valacyclovir HCl (Valtrex -) 1,000 mg NGT BID [facility] Stop: 05/12/18 22:00 - Objective Vital Signs: Vital Signs Temperature 99.8 F H 05/08/18 14:00 Pulse Rate 94 H 05/08/18 16:02 Respiratory Rate 20 05/08/18 16:10 Blood Pressure 130/72 05/08/18 16:02 O2 Sat by Pulse Oximetry (%) 97 05/08/18 10:25 Constitutional: Yes: Calm HENT: Yes: Atraumatic Neck: Yes: Supple Cardiovascular: Yes: Regular Rate and Rhythm Respiratory: Yes: Rhonchi Gastrointestinal: Yes: Normal Bowel Sounds Extremities: Yes: WNL Edema: No Neurological: Yes: Other (intubated and sedated) Labs: INR, PTT INR 1.14 (0.83-1.09) H 05/07/18 05:30 Fibrinogen 386.0 mg/dL (238-498) 05/03/18 05:15 Problem List - Problems (1) Hematemesis Assessment/Plan: no more intubated Code(s): K92.0 - HEMATEMESIS Qualifiers: Nausea presence: unspecified Qualified Code(s): K92.0 - Hematemesis (2) GI bleed Assessment/Plan: on prophylaxis Code(s): K92.2 - GASTROINTESTINAL HEMORRHAGE, UNSPECIFIED Qualifiers: GI bleed type/associated pathology: gastrointestinal hemorrhage with hematemesis Qualified Code(s): K92.0 - Hematemesis (3) Alcohol use disorder Code(s): HRY5206 - (4) Sepsis Assessment/Plan: cxs noted intubated iv abx Code(s): A41.9 - SEPSIS, UNSPECIFIED ORGANISM (5) Septic shock Assessment/Plan: off of pressors iv abx Code(s): A41.9 - SEPSIS, UNSPECIFIED ORGANISM; R65.21 - SEVERE SEPSIS WITH SEPTIC SHOCK
[2018-05-08 17:01] LABS: BASO % 0.2 % (0-2.0); HEMATOCRIT 28.6 % (35.4-49); HEMOGLOBIN 10.1 GM/dL (11.7-16.9); LYMPH % 6.7 % (8-40); MCH 28.6 pg (25.7-33.7); MCHC 35.4 g/dl (32.0-35.9); MEAN CELL VOLUME 80.7 fl (80-96); MEAN PLT VOLUME 9.6 fl (7.5-11.1); MONO % 8.5 % (3.8-10.2); NEUT % 84.6 % (42.8-82.8); PLATELET COUNT 135 K/MM3 (134-434); RBC 3.55 M/mm3 (4.00-5.60); WHITE BLOOD COUNT 8.8 K/mm3 (4.0-10.0)
[2018-05-08 17:37] LABS: ALBUMIN 2.3 g/dl (3.4-5.0); ALK PHOS 218 U/L (45-117); ANION GAP 9 MMOL/L (8-16); BILIRUBIN,TOTAL 1.7 mg/dL (0.2-1); BLOOD UREA NITROGEN 17 mg/dL (7-18); CALCIUM 7.2 mg/dL (8.5-10.1); CHLORIDE 102 mmol/L (98-107); CO2 31 mmol/L (21-32); CREATININE 0.5 mg/dL (0.55-1.3); GLUCOSE,RANDOM 194 mg/dL (74-106); MAGNESIUM 1.6 mg/dL (1.8-2.4); PHOSPHOROUS 2.2 mg/dL (2.5-4.9); SGOT/AST 82 U/L (15-37); SGPT/ALT 79 U/L (13-61); SODIUM 142 mmol/L (136-145); TOT PROT 6.2 g/dl (6.4-8.2)
[2018-05-08 17:46] LABS: POTASSIUM 2.9 mmol/L (3.5-5.1)
[2018-05-08] MEDS ORDERED: MAGNESIUM SULF 50% (8.12 MEQ/2 ML-1 GM VIAL) IVPB ONE (17:55)
[2018-05-08] MEDS ORDERED: POTASSIUM CHLORIDE ORAL LIQUID 20 MEQ/15 ML PO ONE (17:56)
[2018-05-08 18:12] LABS: PLATELET ESTIMATE ADEQUATE
[2018-05-08] MEDS: ACETAMINOPHEN 1000 MG/100 ML VIAL (NON FORMULARY) IVPB PRN (20:10)
[2018-05-08] MEDS: POTASSIUM CHLORIDE 20 MEQ PREMIX IVPB 100 ML IVPB SCH ×3 (20:28→22:13)
[2018-05-08] MEDS ORDERED: valACYclovir HCL 1000 MG TABLET NGT SCH (22:00)
[2018-05-08] MEDS ORDERED: valACYclovir HCL 1000 MG TABLET PO SCH (22:00)
[2018-05-08] MEDS: CHLORHEXIDINE GLUCONATE 4% CLEANSER FOR DECOLONIZATION TP SCH (22:16)
[2018-05-09 00:54] LABS: ANION GAP 5 MMOL/L (8-16); BLOOD UREA NITROGEN 17 mg/dL (7-18); CHLORIDE 104 mmol/L (98-107); CO2 33 mmol/L (21-32); CREATININE 0.5 mg/dL (0.55-1.3); GLUCOSE,RANDOM 146 mg/dL (74-106); PHOSPHOROUS 3.6 mg/dL (2.5-4.9); POTASSIUM 4.1 mmol/L (3.5-5.1); SODIUM 143 mmol/L (136-145)
[2018-05-09 01:07] LABS: CALCIUM 6.8 mg/dL (8.5-10.1)
[2018-05-09] MEDS ORDERED: CALCIUM GLUCONATE 10% - 1,000 MG/10 ML VIAL IVPB ONE ×3 (01:15→22:53)
[2018-05-09] MEDS ORDERED: PIPERACILLIN/TAZOBACTAM 3.375 GM VIAL IVPB ONE ×4 (02:33→20:48)
[2018-05-09] MEDS ORDERED: DEXTROSE 5%-WATER - 50 ML IVPB ONE ×4 (02:33→20:48)
[2018-05-09] MEDS: PIPERACILLIN/TAZOB 3.375 GM 3.375 GM in DEXTROSE 5%-WATER - 50 ML IVPB SCH ×4 (02:35→20:51)
[2018-05-09 05:37] LABS: BASO % 0.2 % (0-2.0); EOS % 0.1 % (0-4.5); HEMATOCRIT 29.4 % (35.4-49); HEMOGLOBIN 9.5 GM/dL (11.7-16.9); LYMPH % 8.3 % (8-40); MCHC 32.5 g/dl (32.0-35.9); MEAN PLT VOLUME 9.5 fl (7.5-11.1); MONO % 5.8 % (3.8-10.2); NEUT % 85.6 % (42.8-82.8); PLATELET COUNT 137 K/MM3 (134-434); RBC 3.54 M/mm3 (4.00-5.60); RDW 18.1 % (11.9-15.9); WHITE BLOOD COUNT 8.9 K/mm3 (4.0-10.0)
[2018-05-09 06:07] LABS: INR 1.19 (0.83-1.09); PROTHROMBIN TIME (PATIENT) 14.1 SEC (9.7-13.0)
[2018-05-09 06:09] LABS: ALBUMIN 2.1 g/dl (3.4-5.0); ALK PHOS 199 U/L (45-117); ANION GAP 7 MMOL/L (8-16); BILIRUBIN,TOTAL 1.4 mg/dL (0.2-1); BLOOD UREA NITROGEN 15 mg/dL (7-18); CALCIUM 7.1 mg/dL (8.5-10.1); CHLORIDE 106 mmol/L (98-107); CO2 30 mmol/L (21-32); CREATININE 0.5 mg/dL (0.55-1.3); GLUCOSE,RANDOM 156 mg/dL (74-106); MAGNESIUM 1.9 mg/dL (1.8-2.4); PHOSPHOROUS 2.2 mg/dL (2.5-4.9); POTASSIUM 3.5 mmol/L (3.5-5.1); SGOT/AST 66 U/L (15-37); SGPT/ALT 72 U/L (13-61); SODIUM 143 mmol/L (136-145); TOT PROT 5.9 g/dl (6.4-8.2)
[2018-05-09 06:10] LABS: ACTIVATED PTT 19.8 SECONDS (25.2-36.5)
[2018-05-09] MEDS: ACETAMINOPHEN 1000 MG/100 ML VIAL (NON FORMULARY) IVPB PRN ×2 (06:12→13:24)
[2018-05-09 06:14] LABS: ARTERIAL BLD GAS O2 SATURATION 98.4 % (90-98.9); ARTERIAL BLOOD GAS BASE EXCESS 5.3 meq/l (-2-2); ARTERIAL BLOOD GAS PCO2 36.2 mmHg (35-45); ARTERIAL BLOOD GAS pH 7.51 (7.35-7.45)
[2018-05-09] MEDS: INSULIN SLIDING SCALE (NOVOLOG) 1 VIAL SQ SCH ×2 (06:20→17:30)
[2018-05-09 06:26] LABS: ALLENS TEST POSITIVE
[2018-05-09] MEDS: POTASSIUM CHLORIDE ORAL LIQUID 20 MEQ/15 ML NGT SCH ×2 (06:44→21:24)
--- NOTE | 2018-05-09 07:10 | PN ---
Progress Note (short form) - Note Progress Note: Chief Complaint: Events noted, notes reviewed, febrile this AM, patient remains intubated and sedated, sinus rhythm is noted, remains on Midazolam, Propofol and Fentanyl History of Present Illness: Seen and examined in the ICU. Events noted, notes reviewed, febrile this AM, patient remains intubated and sedated, sinus rhythm is noted, remains on Midazolam, Propofol and Fentanyl Echocardiography dated 05/02/2018 revealed normal LV size and with borderline LVEF 50%, normal RV size and function mild MR, TR and AR Chest x-ray from this AM noted - Current Medication List Current Medications Acetaminophen (Ofirmev Injection -) 1,000 mg IVPB Q6H PRN PRN Reason: PAIN OR FEVER Albuterol Sulfate (Ventolin 0.083% Nebulizer Soln -) 1 amp NEB Q4H PRN PRN Reason: SHORT OF BREATH/WHEEZING Albuterol Sulfate (Ventolin 0.083% Nebulizer Soln -) 1 amp NEB RQID [facility] Last Admin: 05/08/18 20:59 Dose: 1 amp Artificial Tears (Artificial Tears) 1 drop OU BID [facility] Last Admin: 05/08/18 22:12 Dose: 1 drop Chlorhexidine Gluconate (Hibiclens For Decolonization -) 1 applic TP HS [facility] Last Admin: 05/08/18 22:16 Dose: 1 applic Chlorhexidine Gluconate (Peridex -) 15 ml MM BID [facility] Last Admin: 05/08/18 22:12 Dose: 15 ml Hydrocortisone Sodium Succinate (Solu-Cortef -) 50 mg IVPUSH BID [facility] Last Admin: 05/08/18 22:14 Dose: 50 mg Piperacillin Sod/Tazobactam (Sod 3.375 gm/ Dextrose) 50 mls @ 100 mls/hr IVPB Q6H-IV [facility]; Protocol Last Admin: 05/09/18 02:35 Dose: 100 mls/hr Midazolam HCl 100 mg/ Sodium (Chloride) 100 mls @ 3 mls/hr IVPB TITR [facility]; Protocol Last Admin: 05/08/18 20:24 Dose: 5 mg/hr, 5 mls/hr Propofol (Diprivan -) 1,000,000 mcg in 100 mls @ 2.177 mls/hr IVPB TITR [facility]; Protocol Last Titration: 05/09/18 00:04 Dose: 50 mcg/kg/min, 21.773 mls/hr Fentanyl 500 mcg/ Dextrose 100 mls @ 5 mls/hr IVPB TITR [facility]; Protocol Last Admin: 05/08/18 17:01 Dose: 25 mcg/hr, 5 mls/hr Insulin Aspart (Novolog Vial Sliding Scale -) 1 vial SQ BIDAC [facility]; Protocol Last Admin: 05/09/18 06:20 Dose: 2 unit Pantoprazole Sodium (Protonix Iv) 40 mg IVPUSH BID [facility] Last Admin: 05/08/18 22:13 Dose: 40 mg Potassium Chloride (Potassium Chloride 20 Meq Premix Ivpb -) 20 meq IVPB Q60M [facility] Stop: 05/09/18 08:31 Potassium Chloride (Potassium Chloride Oral Liquid) 40 meq NGT BID [facility] Last Admin: 05/09/18 06:44 Dose: 40 meq Thiamine HCl (Vitamin B1 Injection -) 250 mg IVPB DAILY [facility] Last Admin: 05/08/18 09:03 Dose: 250 mg Valacyclovir HCl (Valtrex -) 1,000 mg PO BID [facility] Stop: 05/17/18 22:00 - Review of Systems Unable to obtain - Objective Vital Signs: Last Vital Signs Temp Pulse Resp BP Pulse Ox 100.3 F H 109 H 19 147/91 97 05/09/18 06:00 05/09/18 06:00 05/09/18 06:30 05/09/18 06:00 05/09/18 01:00 Intake & Output 05/06/18 05/07/18 05/08/18 05/09/18 23:59 23:59 23:59 23:59 Intake Total 2786 3194.2 5021.3 994.2 Output Total 3850 2800 20614 1200 Balance -1064 394.2 -5178.7 -205.8 Weight 212 lb 9 oz 207 lb 3.2 oz 210 lb 12.8 oz 190 lb 8 oz Neck: Supple Negative JVD Cardiovascular: S1 S2 Regular Rate and Rhythm Respiratory: Diminished breath sounds Scattered Rhonchi Gastrointestinal: Soft Benign Normal Bowel Sounds Ext: Negative Edema Labs: ABG Results ABG pH 7.51 (7.35-7.45) H 05/09/18 06:00 ABG pCO2 at Pt Temp 36.2 mmHg (35-45) 05/09/18 06:00 ABG pO2 at Pt Temp 110.0 mmHg (80-100) H D 05/09/18 06:00 ABG HCO3 28.4 meq/L (22-26) H 05/09/18 06:00 ABG O2 Sat (Measured) 98.4 % (90-98.9) 05/09/18 06:00 ABG O2 Content 12.4 % vol (15-22) L 05/09/18 06:00 ABG Base Excess 5.3 meq/l (-2-2) H 05/09/18 06:00 CBC, BMP 05/09/18 05:15 05/09/18 05:15 Assessment/Plan ASSESSMENT: 1. Acute hypercapneic hypoxic respiratory failure with non-cardiogenic pulmonary edema/ARDS, persistent chest x-ray abnormality 2. Aspiration pneumonia with resolved septic shock/hypotension, recurrent fever 3. Acute upper gastrointestinal bleed with history of erosive esophagitis and varices 4. History of ETOH/alcohol abuse 5. Seizure disorder 6. Thrombocytopenia, resolved/Anemia PLAN: 1. Ventilator management as as per the ICU team 2. Wean off sedatives as tolerated 3. As outlined in prior notes continue to administer Lasix on prn bases with close monitoring of renal function and electrolytes 4. Recommend the addition ACEI or ARBS for pre-load and after-load reduction if not contraindicated and with close monitoring of renal function 5. Monitor CBC (Hg) and transfuse as needed. 6. EGD as per GI service Yosi Ashley MD
[2018-05-09] MEDS: ALBUTEROL SO4 0.083% IH SOL 2.5 MG/3 ML VIAL.NEB. NEB SCH ×4 (07:20→20:40)
[2018-05-09] MEDS ORDERED: PT OWN MED DRAWER 7, Y5N ONE (07:32)
[2018-05-09 07:56] LABS: URINE APPEARANCE CLOUDY; URINE BILIRUBIN NEGATIVE (<2.0 mg/dL); URINE COLOR YELLOW; URINE GLUCOSE (UA) 1+ (NEGATIVE); URINE KETONE NEGATIVE (NEGATIVE); URINE LEUK ESTERASE NEGATIVE (NEGATIVE); URINE NITRITE NEGATIVE (NEGATIVE); URINE PROTEIN NEGATIVE (NEGATIVE)
[2018-05-09] MEDS ORDERED: MAGNESIUM SULF 50% (8.12 MEQ/2 ML-1 GM VIAL) IVPB ONE ×2 (07:56→18:51)
[2018-05-09 08:01] LABS: URINE BACTERIA MANY /hpf (NONE SEEN); URINE MUCUS RARE
--- NOTE | 2018-05-09 08:18 | PN ---
Physical Exam: SUBJECTIVE: Patient seen and examined in the ICU. remains intubated and sedated. Off pressors. No active bleeding and hemodynamically stable. fevers overnight, Tmax 101.3 cultures drawn. lasix yesterday w/ large UOP. yesterday , noted to have vesicular ulcers and petechia around lips and mouth valcyclovir started. EGD and Head CT deferred until pt more stable. OBJECTIVE: Vital Signs Period Temp Pulse Resp BP Sys/Boykin Pulse Ox Last 24 Hr 97.6 F-101.3 F 72-109 15-22 118-157/70-93 95-99 GENERAL: intubated and sedated HEENT: NCAT, ETT, OGT, vesicular ulcers and petechia around lips and mouth NECK: supple, R IJ LUNGS: crackles b/l HEART:tachy RR, normal S1 and S2 without m/r/g ABDOMEN: Soft, ND normoactive bowel sounds MUSCULOSKELETAL: No bony deformities or tenderness. UPPER EXTREMITIES: 2+ pulses, warm, well-perfused. No cyanosis. No clubbing. Cap refill <2 seconds. +1 edema improving LOWER EXTREMITIES: 2+ pulses, warm, well-perfused. No calf tenderness. No peripheral edema. NEUROLOGICAL: intubated sedated +cough reflex SKIN: Warm, dry, normal turgor, no rashes or lesions noted. Laboratory Results - last 24 hr 05/08/18 05/08/18 05/08/18 03:42 05:15 05:15 WBC RBC Hgb Hct MCV MCH MCHC RDW Plt Count MPV Absolute Neuts (auto) Neutrophils % Neutrophils % (Manual) 81.0 Band Neutrophils % 6.0 Lymphocytes % Lymphocytes % (Manual) 5.0 L D Monocytes % Monocytes % (Manual) 5 Eosinophils % Eosinophils % (Manual) 0.0 Basophils % Basophils % (Manual) 0.0 Myelocytes % (Man) 0 Promyelocytes % (Man) 0 Blast Cells % (Manual) 1 H Nucleated RBC % Metamyelocytes 0 Hypochromia 0 Platelet Estimate Decreased Platelet Comment Present Polychromasia 0 Poikilocytosis 0 Anisocytosis 2+ Microcytosis 2+ Macrocytosis 0 PT with INR INR PTT (Actin FS) Puncture Site ABG pH ABG pCO2 at Pt Temp ABG pO2 at Pt Temp ABG HCO3 ABG O2 Sat (Measured) ABG O2 Content ABG Base Excess [place] Test O2 Delivery Device Oxygen Flow Rate Vent Rate PEEP Pressure Support Vent Sodium Potassium Chloride Carbon Dioxide Anion Gap BUN Creatinine Creat Clearance w eGFR POC Glucometer [phone] Random Glucose Hemoglobin A1c % 6.2 Calcium Phosphorus Magnesium Total Bilirubin AST ALT Alkaline Phosphatase Total Protein Albumin Urine Color Urine Appearance Urine pH Ur Specific [place] Urine Protein Urine Glucose (UA) Urine Ketones Urine Blood Urine Nitrite Urine Bilirubin Urine Urobilinogen Ur Leukocyte Esterase 05/08/18 05/08/18 05/08/18 06:36 13:17 16:35 WBC 8.8 RBC 3.55 L Hgb 10.1 L Hct 28.6 L MCV 80.7 MCH 28.6 MCHC 35.4 RDW 18.0 H Plt Count 135 D MPV 9.6 Absolute Neuts (auto) 7.4 Neutrophils % 84.6 H Neutrophils % (Manual) 84.0 H Band Neutrophils % 3.0 Lymphocytes % 6.7 L Lymphocytes % (Manual) 7.0 L D Monocytes % 8.5 Monocytes % (Manual) 0 L D Eosinophils % 0.0 Eosinophils % (Manual) 0.0 Basophils % 0.2 Basophils % (Manual) 0.0 Myelocytes % (Man) 1 D Promyelocytes % (Man) Blast Cells % (Manual) Nucleated RBC % 0 Metamyelocytes Hypochromia Platelet Estimate Adequate Platelet Comment Polychromasia Poikilocytosis Anisocytosis Microcytosis Macrocytosis PT with INR INR PTT (Actin FS) Puncture Site ABG pH ABG pCO2 at Pt Temp ABG pO2 at Pt Temp ABG HCO3 ABG O2 Sat (Measured) ABG O2 Content ABG Base Excess [place] Test O2 Delivery Device Oxygen Flow Rate Vent Rate PEEP Pressure Support Vent Sodium Potassium Chloride Carbon Dioxide Anion Gap BUN Creatinine Creat Clearance w eGFR POC Glucometer [phone] Random Glucose Hemoglobin A1c % Calcium Phosphorus Magnesium Total Bilirubin AST ALT Alkaline Phosphatase Total Protein Albumin Urine Color Urine Appearance Urine pH Ur Specific [place] Urine Protein Urine Glucose (UA) Urine Ketones Urine Blood Urine Nitrite Urine Bilirubin Urine Urobilinogen Ur Leukocyte Esterase 05/08/18 05/08/18 05/08/18 16:35 16:35 23:45 WBC RBC Hgb Hct MCV MCH MCHC RDW Plt Count MPV Absolute Neuts (auto) Neutrophils % Neutrophils % (Manual) Band Neutrophils % Lymphocytes % Lymphocytes % (Manual) Monocytes % Monocytes % (Manual) Eosinophils % Eosinophils % (Manual) Basophils % Basophils % (Manual) Myelocytes % (Man) Promyelocytes % (Man) Blast Cells % (Manual) Nucleated RBC % Metamyelocytes Hypochromia Platelet Estimate Platelet Comment Polychromasia Poikilocytosis Anisocytosis Microcytosis Macrocytosis PT with INR INR PTT (Actin FS) Puncture Site ABG pH ABG pCO2 at Pt Temp ABG pO2 at Pt Temp ABG HCO3 ABG O2 Sat (Measured) ABG O2 Content ABG Base Excess [place] Test O2 Delivery Device Oxygen Flow Rate Vent Rate PEEP Pressure Support Vent Sodium 142 143 Potassium 2.9 L* 4.1 Chloride 102 104 Carbon Dioxide 31 33 H Anion Gap 9 5 L BUN 17 17 Creatinine 0.5 L 0.5 L Creat Clearance w eGFR > 60 > 60 POC Glucometer 203.65038 Random Glucose 194 H 146 H Hemoglobin A1c % Calcium 7.2 L 6.8 L* Phosphorus 2.2 L 3.6 Magnesium 1.6 L 2.0 Total Bilirubin 1.7 H AST 82 H ALT 79 H Alkaline Phosphatase 218 H Total Protein 6.2 L Albumin 2.3 L Urine Color Urine Appearance Urine pH Ur Specific [place] Urine Protein Urine Glucose (UA) Urine Ketones Urine Blood Urine Nitrite Urine Bilirubin Urine Urobilinogen Ur Leukocyte Esterase 05/08/18 05/09/18 05/09/18 23:46 05:15 05:15 WBC 8.9 RBC 3.54 L Hgb 9.5 L Hct 29.4 L MCV 83.0 MCH 27.0 MCHC 32.5 RDW 18.1 H Plt Count 137 MPV 9.5 Absolute Neuts (auto) 7.6 Neutrophils % 85.6 H Neutrophils % (Manual) Band Neutrophils % Lymphocytes % 8.3 D Lymphocytes % (Manual) Monocytes % 5.8 Monocytes % (Manual) Eosinophils % 0.1 D Eosinophils % (Manual) Basophils % 0.2 Basophils % (Manual) Myelocytes % (Man) Promyelocytes % (Man) Blast Cells % (Manual) Nucleated RBC % 0 Metamyelocytes Hypochromia Platelet Estimate Platelet Comment Polychromasia Poikilocytosis Anisocytosis Microcytosis Macrocytosis PT with INR INR PTT (Actin FS) Puncture Site ABG pH ABG pCO2 at Pt Temp ABG pO2 at Pt Temp ABG HCO3 ABG O2 Sat (Measured) ABG O2 Content ABG Base Excess [place] Test O2 Delivery Device Oxygen Flow Rate Vent Rate PEEP Pressure Support Vent Sodium 143 Potassium 3.5 Chloride 106 Carbon Dioxide 30 Anion Gap 7 L BUN 15 Creatinine 0.5 L Creat Clearance w eGFR > 60 POC Glucometer 162.74581 Random Glucose 156 H Hemoglobin A1c % Calcium 7.1 L Phosphorus 2.2 L Magnesium 1.9 Total Bilirubin 1.4 H AST 66 H ALT 72 H Alkaline Phosphatase 199 H Total Protein 5.9 L Albumin 2.1 L Urine Color Urine Appearance Urine pH Ur Specific [place] Urine Protein Urine Glucose (UA) Urine Ketones Urine Blood Urine Nitrite Urine Bilirubin Urine Urobilinogen Ur Leukocyte Esterase 05/09/18 05/09/18 05/09/18 05:15 06:00 06:05 WBC RBC Hgb Hct MCV MCH MCHC RDW Plt Count MPV Absolute Neuts (auto) Neutrophils % Neutrophils % (Manual) Band Neutrophils % Lymphocytes % Lymphocytes % (Manual) Monocytes % Monocytes % (Manual) Eosinophils % Eosinophils % (Manual) Basophils % Basophils % (Manual) Myelocytes % (Man) Promyelocytes % (Man) Blast Cells % (Manual) Nucleated RBC % Metamyelocytes Hypochromia Platelet Estimate Platelet Comment Polychromasia Poikilocytosis Anisocytosis Microcytosis Macrocytosis PT with INR 14.10 H INR 1.19 H PTT (Actin FS) 19.8 L Puncture Site Right radial ABG pH 7.51 H ABG pCO2 at Pt Temp 36.2 ABG pO2 at Pt Temp 110.0 H D ABG HCO3 28.4 H ABG O2 Sat (Measured) 98.4 ABG O2 Content 12.4 L ABG Base Excess 5.3 H [place] Test Positive O2 Delivery Device Vent Oxygen Flow Rate 40% Vent Rate 16 PEEP 5.0 Pressure Support Vent 450 Sodium Potassium Chloride Carbon Dioxide Anion Gap BUN Creatinine Creat Clearance w eGFR POC Glucometer 155.76291 Random Glucose Hemoglobin A1c % Calcium Phosphorus Magnesium Total Bilirubin AST ALT Alkaline Phosphatase Total Protein Albumin Urine Color Urine Appearance Urine pH Ur Specific [place] Urine Protein Urine Glucose (UA) Urine Ketones Urine Blood Urine Nitrite Urine Bilirubin Urine Urobilinogen Ur Leukocyte Esterase 05/09/18 07:30 WBC RBC Hgb Hct MCV MCH MCHC RDW Plt Count MPV Absolute Neuts (auto) Neutrophils % Neutrophils % (Manual) Band Neutrophils % Lymphocytes % Lymphocytes % (Manual) Monocytes % Monocytes % (Manual) Eosinophils % Eosinophils % (Manual) Basophils % Basophils % (Manual) Myelocytes % (Man) Promyelocytes % (Man) Blast Cells % (Manual) Nucleated RBC % Metamyelocytes Hypochromia Platelet Estimate Platelet Comment Polychromasia Poikilocytosis Anisocytosis Microcytosis Macrocytosis PT with INR INR PTT (Actin FS) Puncture Site ABG pH ABG pCO2 at Pt Temp ABG pO2 at Pt Temp ABG HCO3 ABG O2 Sat (Measured) ABG O2 Content ABG Base Excess [place] Test O2 Delivery Device Oxygen Flow Rate Vent Rate PEEP Pressure Support Vent Sodium Potassium Chloride Carbon Dioxide Anion Gap BUN Creatinine Creat Clearance w eGFR POC Glucometer Random Glucose Hemoglobin A1c % Calcium Phosphorus Magnesium Total Bilirubin AST ALT Alkaline Phosphatase Total Protein Albumin Urine Color Yellow Urine Appearance Cloudy Urine pH 7.0 D Ur Specific [place] 1.016 Urine Protein Negative Urine Glucose (UA) 1+ H Urine Ketones Negative Urine Blood 1+ H Urine Nitrite Negative Urine Bilirubin Negative Urine Urobilinogen 2.0 Ur Leukocyte Esterase Negative Active Medications Generic Name Dose Route Start Last Admin Trade Name Georgeq PRN Reason Stop Dose Admin Acetaminophen 1,000 mg 05/08/18 20:06 Ofirmev Injection - IVPB Q6H PRN PAIN OR FEVER Albuterol Sulfate 1 amp 05/04/18 07:38 Ventolin 0.083% Nebulizer Soln - NEB Q4H PRN SHORT OF BREATH/WHEEZING Albuterol Sulfate 1 amp 05/04/18 08:30 05/09/18 07:20 Ventolin 0.083% Nebulizer Soln - NEB 1 amp RQID [facility] Administration Artificial Tears 1 drop 05/07/18 22:45 05/08/18 22:12 Artificial Tears OU 1 drop BID [facility] Administration Chlorhexidine Gluconate 1 applic 05/01/18 22:00 05/08/18 22:16 Hibiclens For Decolonization - TP 1 applic HS [facility] Administration Chlorhexidine Gluconate 15 ml 05/06/18 10:00 05/08/18 22:12 Peridex - MM 15 ml BID [facility] Administration Furosemide 40 mg 05/09/18 07:57 Lasix Injection - IVPUSH 05/09/18 07:58 ONCE ONE Hydrocortisone Sodium Succinate 25 mg 05/09/18 07:51 Solu-Cortef - IVPUSH BID [facility] Piperacillin Sod/Tazobactam 50 mls @ 100 mls/hr 05/01/18 21:45 05/09/18 02:35 Sod 3.375 gm/ Dextrose IVPB 100 mls/hr Q6H-IV [facility] Administration Protocol Midazolam HCl 100 mg/ Sodium 100 mls @ 3 mls/hr 05/02/18 15:15 05/08/18 20:24 Chloride IVPB 5 mg/hr TITR [facility] 5 mls/hr Administration Protocol 3 MG/HR Propofol 1,000,000 mcg in 100 mls @ 2.177 mls/hr 05/02/18 15:15 05/09/18 00: 04 Diprivan - IVPB 50 mcg/kg/min TITR [facility] 21.773 mls/hr Titration Protocol 5 MCG/KG/MIN Fentanyl 500 mcg/ Dextrose 100 mls @ 5 mls/hr 05/03/18 10:45 05/08/18 17:01 IVPB 25 mcg/hr TITR [facility] 5 mls/hr Administration Protocol 25 MCG/HR Potassium Phosphate 30 mm/ 260 mls @ 62.5 mls/hr 05/09/18 07:56 Sodium Chloride IVPB 05/09/18 12:05 ONCE ONE Insulin Aspart 1 vial 05/08/18 07:00 05/09/18 06:20 Novolog Vial Sliding Scale - SQ 2 unit BIDAC [facility] Administration Protocol Magnesium Sulfate 2 gm 05/09/18 07:56 Magnesium Sulfate IVPB 05/09/18 07:57 ONCE ONE Pantoprazole Sodium 40 mg 05/05/18 10:00 05/08/18 22:13 Protonix Iv IVPUSH 40 mg BID [facility] Administration Potassium Chloride 20 meq 05/09/18 06:30 Potassium Chloride 20 Meq Premix Ivpb - IVPB 05/09/18 08:31 Q60M [facility] Potassium Chloride 40 meq 05/09/18 06:30 05/09/18 06:44 Potassium Chloride Oral Liquid NGT 40 meq BID [facility] Administration Thiamine HCl 250 mg 05/05/18 10:00 05/08/18 09:03 Vitamin B1 Injection - IVPB 250 mg DAILY [facility] Administration Valacyclovir HCl 1,000 mg 05/09/18 10:00 Valtrex - PO 05/17/18 22:00 BID [facility] Valsartan 80 mg 05/09/18 10:00 Diovan - NGT DAILY [facility] ASSESSMENT/PLAN: 53yo m with PMH of GI bleed, EtOH abuse, seizures?, HTN, anemia, varicies, presenting to ICU w/ acute GIB bleed, likely upper and etoh abuse. Now found w/ septic shock unclear etiology, and in DTs. NEURO DTs 05/02/18, last drink 1pt of Vodka 05/01/18? intubated sedated on propofol, versed gtt, fentanyl gtt weaning trial today Utox - neg s/p banana bag c/w Thiamin 250 qd MVI detox consult seizures? - questionable hx of seizures. was evaluated by Neuro on prior admission in 02/2018. was given keppra but it was stopped as seizure was likely caused by alcohol use. Patient at that time indicated he has always had seizures only in setting of ETOH withdrawl. Pt not having any seizure like activity on this admission. Will cont to monitor. Fall?- Head CT when hemodynamically stable Cardiac/PULM/GI SVT?/sinus tach 07/01 sepsis 05/01/18 - HR was in 170s but unresponsive to adenosine, responded to Lopressor Echo - nl, EF 60% cardio consult R IJ central line 05/01/18, will remove line today Hold IVF lasix 40 bid prn taper stress steroids Start valsartan for pre-load and after-load reduction if not contraindicated and with close monitoring of renal function maintain MAP > 65 O2 as needed weaning trial today ARDS vent strategy monitor H/H s/p 1 u prbc in ED. transfuse if <7 or significant drop in Hgb c/w active GIB Hold IVF pain ctl EKG: sinus tachycardia. no ST changes, Qtc 512 on admission monitor Qtc cxr - worsening L pulm and pleural changes, may be source of infx, CAP vs aspiration PNA CXR today shows slight R sided improvement w/ lasix elevate head of bed, aspiration precautions FOBT pos protonix BID dcd octreotide - hx varices?, may be source of bleed. H/H stable and has been on for 72 hrs. also on tube feeds GI consult underwent EGD 07/[address] Hester that revealed severe erosive esophagitis. elevated lactic - trend: 3 --> 1.6 EGD deferred because of Septic shock ID septic shock, unclear etiology, w/ fevers (Tmax 105) and R IJ placement. improving, off pressors and s/p 7-9 L IVF cxr showed worsening L pulm and pleural changes, may be source of infx, CAP vs aspiration PNA sputum cx x2 - Klebsiella P. s/p CTX/zosyn in ED ID consult abx- zosyn no indication for vanc at this time. ucx, bcx, legionella, flu neg rpt ucx, bcx neg New fevers overnight Tmax 101.3 - rpt ucx, bcx, UA, sputum cx vesicular ulcers and petechia around lips and mouth lesions likely 2/2 HSV valcyclovir day 2 10 HEME Neutropenia and thrombocytopenia coagulopathy, likely related to liver disease, alcohol abuse, and Sepsis unclear etiology, possibly 2/2 PNA fibrinogen nl heme consult vit k 10mg sq x1 dose 05/02/18 vit K 5 sq 05/03/18 Ideally would like to maintain platelets > 80K-100K and if feasible INR@1.2 transfuse plt and FFP as needed Iron studies reveal Iron deficiency as well as anemia of chronic disease due to low TIBC and elevated ferritin. RENAL Anion Gap acidosis/lactic acidosis w/ multiple lyte abnl consistent w/ ETOH ketoacidosis - hypo K, Mg, Ca, Cl - resolved HU- likely pre renal - resolved monitor Cr, UOP s/p 7-9 L IVF Hold IVF s/p lasix yesterday w/ good response, more lasix today yeung Start valsartan for pre-load and after-load reduction if not contraindicated and with close monitoring of renal function FEN Hold IVF replete prn tube feeds ppx SCD protonix BID Dispo: ICU monitoring weaning trial today EGD and Head CT deferred until pt more stable Visit type - Emergency Visit Emergency Visit: Yes ED Registration Date: 05/01/18 Care time: The patient presented to the Emergency Department on the above date and was hospitalized for further evaluation of their emergent condition. - New Patient This patient is new to me today: Yes Date on this admission: 05/09/18 - Critical Care Critical Care patient: Yes Total Critical Care Time (in minutes): 38 Critical Care Statement: The care of this patient involved high complexity decision making to prevent further life threatening deterioration of the patient 's condition and/or to evaluate & treat vital organ system(s) failure or risk of failure.
[2018-05-09] MEDS: POTASSIUM CHLORIDE 20 MEQ PREMIX IVPB 100 ML IVPB SCH ×2 (08:22→08:25)
[2018-05-09] MEDS: FUROSEMIDE 40 MG/4 ML INJECTABLE VIAL IVPUSH ONE ×2 (08:55→09:15)
[2018-05-09] MEDS ORDERED: POTASSIUM PHOSPHATE 30 MM in SODIUM CHLORIDE 250 ML IVPB ONE ×2 (09:00→23:15)
[2018-05-09] MEDS: ARTIFICIAL TEARS (POLYVINYL ALCOHOL) OPTH DROPS OU SCH ×2 (09:01→21:25)
[2018-05-09] MEDS: MULTIVIT-MINERALS ORAL LIQUID PO SCH (09:01)
[2018-05-09] MEDS: PANTOPRAZOLE SODIUM 40 MG VIAL IVPUSH SCH ×2 (09:02→21:24)
[2018-05-09] MEDS: CHLORHEXIDINE GLUCONATE 0.12% 15ML CUP MM SCH ×2 (09:02→21:25)
[2018-05-09] MEDS: VALSARTAN 80 MG TABLET (UD) NGT SCH (09:02)
[2018-05-09] MEDS: HYDROCORTISONE SOD SUCCINATE 100 MG/2 ML VIAL IVPUSH SCH ×2 (09:02→21:24)
[2018-05-09] MEDS: valACYclovir HCL 500 MG TABLET (FP) PO SCH ×2 (09:03→21:26)
[2018-05-09] MEDS: THIAMINE HCL 200 MG/2 ML VIAL IVPB SCH (09:03)
--- NOTE | 2018-05-09 11:46 | PN ---
Teaching Attending Note Name of Resident: Dre Martinez ATTENDING PHYSICIAN STATEMENT I saw and evaluated the patient. I reviewed the resident's note and discussed the case with the resident. I agree with the resident's findings and plan as documented. SUBJECTIVE: Pt seen and examined in the ICU. Remains intubated, sedated. Diuresed well with lasix yesterday. OBJECTIVE: Vital Signs Period Temp Pulse Resp BP Sys/Boykin Pulse Ox Last 24 Hr 98.2 F-101.3 F 75-109 15-23 91-157/49-91 95-97 Intake & Output 05/06/18 05/07/18 05/08/18 05/09/18 23:59 23:59 23:59 23:59 Intake Total 2786 3194.2 5021.3 994.2 Output Total 3850 2800 20437 1200 Balance -1064 394.2 -5178.7 -205.8 Weight 96.417 kg 93.984 kg 95.617 kg 86.409 kg Gen: intubated, arousable off sedation Heart: RRR Lung: scattered rhonchi Abd: soft, nontender Ext: less edema CBC, BMP 05/09/18 05:15 05/09/18 05:15 Active Medications Acetaminophen (Ofirmev Injection -) 1,000 mg IVPB Q6H PRN PRN Reason: PAIN OR FEVER Albuterol Sulfate (Ventolin 0.083% Nebulizer Soln -) 1 amp NEB Q4H PRN PRN Reason: SHORT OF BREATH/WHEEZING Albuterol Sulfate (Ventolin 0.083% Nebulizer Soln -) 1 amp NEB RQID [facility] Last Admin: 05/09/18 07:20 Dose: 1 amp Artificial Tears (Artificial Tears) 1 drop OU BID [facility] Last Admin: 05/09/18 09:01 Dose: 1 drop Chlorhexidine Gluconate (Hibiclens For Decolonization -) 1 applic TP HS [facility] Last Admin: 05/08/18 22:16 Dose: 1 applic Chlorhexidine Gluconate (Peridex -) 15 ml MM BID [facility] Last Admin: 05/09/18 09:02 Dose: 15 ml Hydrocortisone Sodium Succinate (Solu-Cortef -) 25 mg IVPUSH BID [facility] Last Admin: 05/09/18 09:02 Dose: 25 mg Piperacillin Sod/Tazobactam (Sod 3.375 gm/ Dextrose) 50 mls @ 100 mls/hr IVPB Q6H-IV [facility]; Protocol Last Admin: 05/09/18 08:10 Dose: 100 mls/hr Potassium Phosphate 30 mm/ (Sodium Chloride) 260 mls @ 65 mls/hr IVPB ONCE ONE Stop: 05/09/18 12:59 Last Admin: 05/09/18 09:22 Dose: 65 mls/hr Insulin Aspart (Novolog Vial Sliding Scale -) 1 vial SQ BIDAC [facility]; Protocol Last Admin: 05/09/18 06:20 Dose: 2 unit Pantoprazole Sodium (Protonix Iv) 40 mg IVPUSH BID [facility] Last Admin: 05/09/18 09:02 Dose: 40 mg Potassium Chloride (Potassium Chloride Oral Liquid) 40 meq NGT BID [facility] Last Admin: 05/09/18 06:44 Dose: 40 meq Thiamine HCl (Vitamin B1 Injection -) 250 mg IVPB DAILY [facility] Last Admin: 05/09/18 09:03 Dose: 250 mg Valacyclovir HCl (Valtrex -) 1,000 mg PO BID [facility] Stop: 05/17/18 22:00 Last Admin: 05/09/18 09:03 Dose: 1,000 mg Valsartan (Diovan -) 80 mg NGT DAILY [facility] Last Admin: 05/09/18 09:02 Dose: 80 mg ASSESSMENT AND PLAN: Acute Hypoxic Respiratory Failure Pneumonia likely Aspiration Septic Shock resolving GI Bleed r/o Varices Alcohol Abuse/Withdrawal Thrombocytopenia Volume Overload - continue antibiotics - off pressors, maintain MAP >65 - continue protonix - monitor CBC - transfuse as needed - continue lasix - monitor urine output, creatinine - keep net negative - taper off hydrocortisone - wean to extubate - d/c central line - DVT/GI prophylaxis - continue ICU monitoring critical care time spent in reviewing chart, evaluating patient and formulating plan 35 min
[2018-05-09 12:04] LABS: ACANTHOCYTES 0; ANISOCYTOSIS 0; HELMET CELLS 0; HOWELL-JOLLY BODIES 0; MACROCYTOSIS 0; OVALOCYTE 0; PLATELET ESTIMATE DECREASED; ROULEAU 0; SICKELED CELLS 0; TARGET CELLS 0; TEAR DROP CELLS 0; TOXIC GRANULATION 0
--- NOTE | 2018-05-09 15:46 | PN ---
Progress Note, Physician History of Present Illness: continues to be intubated sedated mounting fevers diuresed well - Current Medication List Current Medications: Active Medications Acetaminophen (Ofirmev Injection -) 1,000 mg IVPB Q6H PRN PRN Reason: PAIN OR FEVER Last Admin: 05/09/18 13:24 Dose: 1,000 mg Albuterol Sulfate (Ventolin 0.083% Nebulizer Soln -) 1 amp NEB Q4H PRN PRN Reason: SHORT OF BREATH/WHEEZING Albuterol Sulfate (Ventolin 0.083% Nebulizer Soln -) 1 amp NEB RQID [facility] Last Admin: 05/09/18 11:40 Dose: 1 amp Artificial Tears (Artificial Tears) 1 drop OU BID [facility] Last Admin: 05/09/18 09:01 Dose: 1 drop Chlorhexidine Gluconate (Hibiclens For Decolonization -) 1 applic TP HS [facility] Last Admin: 05/08/18 22:16 Dose: 1 applic Chlorhexidine Gluconate (Peridex -) 15 ml MM BID [facility] Last Admin: 05/09/18 09:02 Dose: 15 ml Hydrocortisone Sodium Succinate (Solu-Cortef -) 25 mg IVPUSH BID [facility] Last Admin: 05/09/18 09:02 Dose: 25 mg Piperacillin Sod/Tazobactam (Sod 3.375 gm/ Dextrose) 50 mls @ 100 mls/hr IVPB Q6H-IV [facility]; Protocol Last Admin: 05/09/18 14:01 Dose: 100 mls/hr Insulin Aspart (Novolog Vial Sliding Scale -) 1 vial SQ BIDAC [facility]; Protocol Last Admin: 05/09/18 06:20 Dose: 2 unit Pantoprazole Sodium (Protonix Iv) 40 mg IVPUSH BID [facility] Last Admin: 05/09/18 09:02 Dose: 40 mg Potassium Chloride (Potassium Chloride Oral Liquid) 40 meq NGT BID [facility] Last Admin: 05/09/18 06:44 Dose: 40 meq Thiamine HCl (Vitamin B1 Injection -) 250 mg IVPB DAILY [facility] Last Admin: 05/09/18 09:03 Dose: 250 mg Valacyclovir HCl (Valtrex -) 1,000 mg PO BID [facility] Stop: 05/17/18 22:00 Last Admin: 05/09/18 09:03 Dose: 1,000 mg Valsartan (Diovan -) 80 mg NGT DAILY [facility] Last Admin: 05/09/18 09:02 Dose: 80 mg - Objective Vital Signs: Vital Signs Temperature 101 F H 05/09/18 13:19 Pulse Rate 86 05/09/18 15:00 Respiratory Rate 18 05/09/18 15:00 Blood Pressure 147/80 05/09/18 15:00 O2 Sat by Pulse Oximetry (%) 97 05/09/18 11:40 Constitutional: Yes: Other Cardiovascular: Yes: Regular Rate and Rhythm Respiratory: Yes: Intubated, Mechanically Ventilated Gastrointestinal: Yes: Normal Bowel Sounds, Soft Musculoskeletal: Yes: WNL Extremities: Yes: WNL Edema: LLE: 1+, RLE: 1+ Neurological: Yes: Other Labs: CBC, BMP 05/09/18 05:15 05/09/18 05:15 INR, PTT INR 1.19 (0.83-1.09) H 05/09/18 05:15 Fibrinogen 386.0 mg/dL (238-498) 05/03/18 05:15 - ....Imaging Chest X-ray: Report Reviewed, Image Reviewed Assessment/Plan Acute GI bleed suspected Variceal in nature ETOH abuse Seizures HTN Anemia Suspected Septic Shock: source unclear Coagulopathy fevers plan abx as per icu monitor for dts monitor for bleeding close watch for fevers patient probably with aspiration stabilizing fevers probably from pna sputum cx cc 40 min
--- NOTE | 2018-05-09 17:10 | PN ---
Progress Note, Physician History of Present Illness: extubated doing well...talking - Current Medication List Current Medications: Active Medications Acetaminophen (Ofirmev Injection -) 1,000 mg IVPB Q6H PRN PRN Reason: PAIN OR FEVER Last Admin: 05/09/18 13:24 Dose: 1,000 mg Albuterol Sulfate (Ventolin 0.083% Nebulizer Soln -) 1 amp NEB Q4H PRN PRN Reason: SHORT OF BREATH/WHEEZING Albuterol Sulfate (Ventolin 0.083% Nebulizer Soln -) 1 amp NEB RQID [facility] Last Admin: 05/09/18 16:20 Dose: 1 amp Artificial Tears (Artificial Tears) 1 drop OU BID [facility] Last Admin: 05/09/18 09:01 Dose: 1 drop Chlorhexidine Gluconate (Hibiclens For Decolonization -) 1 applic TP HS [facility] Last Admin: 05/08/18 22:16 Dose: 1 applic Chlorhexidine Gluconate (Peridex -) 15 ml MM BID [facility] Last Admin: 05/09/18 09:02 Dose: 15 ml Hydrocortisone Sodium Succinate (Solu-Cortef -) 25 mg IVPUSH BID [facility] Last Admin: 05/09/18 09:02 Dose: 25 mg Piperacillin Sod/Tazobactam (Sod 3.375 gm/ Dextrose) 50 mls @ 100 mls/hr IVPB Q6H-IV [facility]; Protocol Last Admin: 05/09/18 14:01 Dose: 100 mls/hr Insulin Aspart (Novolog Vial Sliding Scale -) 1 vial SQ BIDAC [facility]; Protocol Last Admin: 05/09/18 06:20 Dose: 2 unit Pantoprazole Sodium (Protonix Iv) 40 mg IVPUSH BID [facility] Last Admin: 05/09/18 09:02 Dose: 40 mg Potassium Chloride (Potassium Chloride Oral Liquid) 40 meq NGT BID [facility] Last Admin: 05/09/18 06:44 Dose: 40 meq Thiamine HCl (Vitamin B1 Injection -) 250 mg IVPB DAILY [facility] Last Admin: 05/09/18 09:03 Dose: 250 mg Valacyclovir HCl (Valtrex -) 1,000 mg PO BID [facility] Stop: 05/17/18 22:00 Last Admin: 05/09/18 09:03 Dose: 1,000 mg Valsartan (Diovan -) 80 mg NGT DAILY [facility] Last Admin: 05/09/18 09:02 Dose: 80 mg - Objective Vital Signs: Vital Signs Temperature 101 F H 05/09/18 13:19 Pulse Rate 78 05/09/18 16:20 Respiratory Rate 18 05/09/18 16:20 Blood Pressure 163/86 05/09/18 16:20 O2 Sat by Pulse Oximetry (%) 97 05/09/18 11:40 Constitutional: Yes: Calm HENT: Yes: Atraumatic Neck: Yes: Supple Cardiovascular: Yes: Regular Rate and Rhythm Respiratory: Yes: Rhonchi Gastrointestinal: Yes: Normal Bowel Sounds Extremities: Yes: WNL Edema: LLE: Trace, RLE: Trace Peripheral Pulses WNL: Yes Neurological: Yes: Other (intubated and sedated) Labs: CBC, BMP 05/09/18 05:15 INR, PTT INR 1.19 (0.83-1.09) H 05/09/18 05:15 Fibrinogen 386.0 mg/dL (238-498) 05/03/18 05:15 Problem List - Problems (1) Hematemesis Assessment/Plan: no more intubated Code(s): K92.0 - HEMATEMESIS Qualifiers: Nausea presence: unspecified Qualified Code(s): K92.0 - Hematemesis (2) GI bleed Assessment/Plan: on prophylaxis Code(s): K92.2 - GASTROINTESTINAL HEMORRHAGE, UNSPECIFIED Qualifiers: GI bleed type/associated pathology: gastrointestinal hemorrhage with hematemesis Qualified Code(s): K92.0 - Hematemesis (3) Alcohol use disorder Assessment/Plan: stable Code(s): [id number] - (4) Sepsis Assessment/Plan: on abx Code(s): A41.9 - SEPSIS, UNSPECIFIED ORGANISM (5) Septic shock Assessment/Plan: off of pressors iv abx Code(s): A41.9 - SEPSIS, UNSPECIFIED ORGANISM; R65.21 - SEVERE SEPSIS WITH SEPTIC SHOCK
[2018-05-09 17:11] LABS: ALBUMIN 2.4 g/dl (3.4-5.0); ALK PHOS 172 U/L (45-117); ANION GAP 8 MMOL/L (8-16); BILIRUBIN,TOTAL 1.5 mg/dL (0.2-1); BLOOD UREA NITROGEN 13 mg/dL (7-18); CHLORIDE 102 mmol/L (98-107); CO2 28 mmol/L (21-32); CREATININE 0.4 mg/dL (0.55-1.3); GLUCOSE,RANDOM 136 mg/dL (74-106); MAGNESIUM 1.7 mg/dL (1.8-2.4); PHOSPHOROUS 2.6 mg/dL (2.5-4.9); POTASSIUM 3.4 mmol/L (3.5-5.1); SGOT/AST 51 U/L (15-37); SGPT/ALT 70 U/L (13-61); SODIUM 139 mmol/L (136-145); TOT PROT 6.2 g/dl (6.4-8.2)
--- NOTE | 2018-05-09 17:40 | PN ---
Progress Note (short form) - Note Progress Note: Patient seen and examined Awake , alert extubated Last Vital Signs Temp Pulse Resp BP Pulse Ox 101 F H 92 H 18 124/74 97 05/09/18 13:19 05/09/18 17:28 05/09/18 17:28 05/09/18 17:28 05/09/18 11:40 HEENT: YOUSIF, EOM Intact Oropharynx: No thrush, No mucositis, crusting of lips Cor: RSR, No murmurs, No gallops Lungs: diminished breath sounds Abd: Soft, Normal bowel sounds, No organomegaly, distended Ext:No significant edema, SCD, stasis Skin: No rashes, Integument intact CBC, BMP 05/09/18 05:15 05/09/18 15:15 INR, PTT INR 1.19 (0.83-1.09) H 05/09/18 05:15 Fibrinogen 386.0 mg/dL (238-498) 05/03/18 05:15 Current Medications Generic Name Dose Route Start Last Admin Trade Name Freq PRN Reason Stop Dose Admin Acetaminophen 1,000 mg 05/08/18 20:06 05/09/18 13:24 Ofirmev Injection - IVPB 1,000 mg Q6H PRN Administration PAIN OR FEVER Albuterol Sulfate 1 amp 05/04/18 07:38 Ventolin 0.083% Nebulizer Soln - NEB Q4H PRN SHORT OF BREATH/WHEEZING Albuterol Sulfate 1 amp 05/04/18 08:30 05/09/18 16:20 Ventolin 0.083% Nebulizer Soln - NEB 1 amp RQID [facility] Administration Artificial Tears 1 drop 05/07/18 22:45 05/09/18 09:01 Artificial Tears OU 1 drop BID [facility] Administration Chlorhexidine Gluconate 1 applic 05/01/18 22:00 05/08/18 22:16 Hibiclens For Decolonization - TP 1 applic HS [facility] Administration Chlorhexidine Gluconate 15 ml 05/06/18 10:00 05/09/18 09:02 Peridex - MM 15 ml BID [facility] Administration Hydrocortisone Sodium Succinate 25 mg 05/09/18 07:51 05/09/18 09:02 Solu-Cortef - IVPUSH 25 mg BID [facility] Administration Piperacillin Sod/Tazobactam 50 mls @ 100 mls/hr 05/01/18 21:45 05/09/18 14:01 Sod 3.375 gm/ Dextrose IVPB 100 mls/hr Q6H-IV [facility] Administration Protocol Insulin Aspart 1 vial 05/08/18 07:00 05/09/18 17:30 Novolog Vial Sliding Scale - SQ 2 unit BIDAC [facility] Administration Protocol Pantoprazole Sodium 40 mg 05/05/18 10:00 05/09/18 09:02 Protonix Iv IVPUSH 40 mg BID [facility] Administration Potassium Chloride 40 meq 05/09/18 06:30 05/09/18 06:44 Potassium Chloride Oral Liquid NGT 40 meq BID [facility] Administration Thiamine HCl 250 mg 05/05/18 10:00 05/09/18 09:03 Vitamin B1 Injection - IVPB 250 mg DAILY [facility] Administration Valacyclovir HCl 1,000 mg 05/09/18 10:00 05/09/18 09:03 Valtrex - PO 05/17/18 22:00 1,000 mg BID [facility] Administration Valsartan 80 mg 05/09/18 10:00 05/09/18 09:02 Diovan - NGT 80 mg DAILY [facility] Administration Acute Hypoxic Respiratory Failure s/p intubation/extubation Pneumonia likely Aspiration Septic Shock resolving GI Bleed r/o Varices Alcohol Abuse/Withdrawal Thrombocytopenia-resolving Volume Overload Platelet and coags improved Continued ICU care
[2018-05-09] MEDS ORDERED: POTASSIUM CHLORIDE TABS 20 MEQ TABLET.ER (FP) PO ONE (18:50)
[2018-05-09] MEDS ORDERED: POTASSIUM CHLORIDE 20 MEQ PREMIX IVPB 100 ML IVPB SCH (19:30)
[2018-05-09] MEDS: KCL 10 MEQ IVPB 10 MEQ/100 ML INFUS.BAG IVPB SCH ×4 (19:45→23:19)
[2018-05-09] MEDS ORDERED: MAG HYDROX/AL HYDROX/SIMETH 30 ML UNIT-DOSE CUP PO ONE (20:45)
[2018-05-09] MEDS: CHLORHEXIDINE GLUCONATE 4% CLEANSER FOR DECOLONIZATION TP SCH (21:25)
[2018-05-09 22:48] LABS: MAGNESIUM 1.7 mg/dL (1.8-2.4)
[2018-05-09 22:49] LABS: ANION GAP 9 MMOL/L (8-16); BLOOD UREA NITROGEN 11 mg/dL (7-18); CHLORIDE 102 mmol/L (98-107); CO2 27 mmol/L (21-32); CREATININE 0.4 mg/dL (0.55-1.3); GLUCOSE,RANDOM 108 mg/dL (74-106); POTASSIUM 3.3 mmol/L (3.5-5.1); SODIUM 138 mmol/L (136-145)
[2018-05-09 22:52] LABS: CALCIUM 6.9 mg/dL (8.5-10.1)
[2018-05-09] MEDS ORDERED: MAGNESIUM OXIDE 400 MG TABLET (FP) PO ONE (22:54)
[2018-05-09] MEDS ORDERED: CALCIUM GLUCONATE 10% - 1,000 MG/10 ML VIAL ONE (23:12)
[2018-05-10] MEDS: KCL 10 MEQ IVPB 10 MEQ/100 ML INFUS.BAG IVPB SCH ×2 (00:13→01:32)
[2018-05-10] MEDS ORDERED: PIPERACILLIN/TAZOBACTAM 3.375 GM VIAL IVPB ONE ×4 (02:25→21:35)
[2018-05-10] MEDS ORDERED: DEXTROSE 5%-WATER - 50 ML IVPB ONE ×4 (02:25→21:35)
[2018-05-10] MEDS: PIPERACILLIN/TAZOB 3.375 GM 3.375 GM in DEXTROSE 5%-WATER - 50 ML IVPB SCH ×4 (02:33→21:48)
[2018-05-10] MEDS ORDERED: POTASSIUM CHLORIDE ORAL LIQUID 20 MEQ/15 ML PO ONE (03:00)
[2018-05-10 06:08] LABS: BASO % 0.1 % (0-2.0); EOS % 0.3 % (0-4.5); HEMATOCRIT 29.8 % (35.4-49); HEMOGLOBIN 9.5 GM/dL (11.7-16.9); LYMPH % 9.1 % (8-40); MCH 26.5 pg (25.7-33.7); MCHC 31.8 g/dl (32.0-35.9); MEAN CELL VOLUME 83.4 fl (80-96); MEAN PLT VOLUME 9.1 fl (7.5-11.1); MONO % 4.1 % (3.8-10.2); NEUT % 86.4 % (42.8-82.8); PLATELET COUNT 154 K/MM3 (134-434); RBC 3.58 M/mm3 (4.00-5.60); RDW 18.1 % (11.9-15.9); WHITE BLOOD COUNT 11.5 K/mm3 (4.0-10.0)
[2018-05-10 06:35] LABS: ALBUMIN 2.4 g/dl (3.4-5.0); ALK PHOS 164 U/L (45-117); ANION GAP 8 MMOL/L (8-16); BILIRUBIN,TOTAL 1.6 mg/dL (0.2-1); BLOOD UREA NITROGEN 9 mg/dL (7-18); CALCIUM 7.4 mg/dL (8.5-10.1); CHLORIDE 102 mmol/L (98-107); CO2 24 mmol/L (21-32); CREATININE 0.4 mg/dL (0.55-1.3); GLUCOSE,RANDOM 95 mg/dL (74-106); MAGNESIUM 1.9 mg/dL (1.8-2.4); PHOSPHOROUS 2.8 mg/dL (2.5-4.9); POTASSIUM 4.6 mmol/L (3.5-5.1); SGOT/AST 64 U/L (15-37); SGPT/ALT 72 U/L (13-61); SODIUM 134 mmol/L (136-145); TOT PROT 6.2 g/dl (6.4-8.2)
[2018-05-10] MEDS ORDERED: morphine SULFATE 4 MG/ML VIAL IVPUSH ONE ×2 (06:48→15:45)
[2018-05-10] MEDS: INSULIN SLIDING SCALE (NOVOLOG) 1 VIAL SQ SCH ×3 (06:55→21:48)
--- NOTE | 2018-05-10 07:37 | PN ---
Physical Exam: SUBJECTIVE: Patient seen and examined in the ICU. remains extubated. No active bleeding and hemodynamically stable. afebrile overnight. lasix yesterday w/ large UOP. Head CT neg. spoke w/ GI. can feed pt. H/H has stabilized, no plans for scope at this time. tolerating clears OBJECTIVE: Vital Signs Period Temp Pulse Resp BP Sys/Boykin Pulse Ox Last 24 Hr 98 F-101 F 75-104 12-26 91-163/49-88 96-99 GENERAL: AOx3 NAD HEENT: NCAT, vesicular ulcers and petechia around lips and mouth. MMM NECK: supple LUNGS: crackles b/l HEART:tachy RR, normal S1 and S2 without m/r/g ABDOMEN: Soft, ND normoactive bowel sounds MUSCULOSKELETAL: No bony deformities or tenderness. UPPER EXTREMITIES: 2+ pulses, warm, well-perfused. No cyanosis. No clubbing. Cap refill <2 seconds. +1 edema improving LOWER EXTREMITIES: 2+ pulses, warm, well-perfused. No calf tenderness. No peripheral edema. NEUROLOGICAL: sensation strength grossly intact. SKIN: Warm, dry, normal turgor, no rashes or lesions noted. Laboratory Results - last 24 hr 05/09/18 05/09/18 05/09/18 05:15 07:30 15:15 WBC RBC Hgb Hct MCV MCH MCHC RDW Plt Count MPV Absolute Neuts (auto) Neutrophils % Neutrophils % (Manual) 85.7 H Band Neutrophils % 1.0 Lymphocytes % Lymphocytes % (Manual) 5.1 L D Monocytes % Monocytes % (Manual) 6 D Eosinophils % Eosinophils % (Manual) 0.0 Basophils % Basophils % (Manual) 0.0 Myelocytes % (Man) 1 Promyelocytes % (Man) 0 Blast Cells % (Manual) 0 D Nucleated RBC % Metamyelocytes 0 Hypochromia 0 Toxic Granulation 0 Dohle Bodies 0 Platelet Estimate Decreased Polychromasia 0 Poikilocytosis 0 Basophilic Stippling 0 Anisocytosis 0 Microcytosis 0 Macrocytosis 0 Spherocytes 0 Sickle Cells 0 Target Cells 0 Tear Drop Cells 0 Ovalocytes 0 Stomatocytes 0 Helmet Cells 0 [place] Bodies 0 [place] Rings 0 [place] Cells 0 Acanthocytes (Spur) 0 Rouleaux 0 Fragmented RBCs 0 Schistocytes 0 Sodium 139 Potassium 3.4 L Chloride 102 Carbon Dioxide 28 Anion Gap 8 BUN 13 Creatinine 0.4 L Creat Clearance w eGFR > 60 POC Glucometer Random Glucose 136 H Calcium 7.0 L Phosphorus 2.6 Magnesium 1.7 L Total Bilirubin 1.5 H AST 51 H ALT 70 H Alkaline Phosphatase 172 H Creatine Kinase Creatine Kinase Index CK-MB (CK-2) Troponin I Total Protein 6.2 L Albumin 2.4 L Urine Color Yellow Urine Appearance Cloudy Urine pH 7.0 D Ur Specific [place] 1.016 Urine Protein Negative Urine Glucose (UA) 1+ H Urine Ketones Negative Urine Blood 1+ H Urine Nitrite Negative Urine Bilirubin Negative Urine Urobilinogen 2.0 Ur Leukocyte Esterase Negative Urine WBC (Auto) 3 Urine RBC (Auto) 24 Urine Bacteria Many Urine Mucus Rare 05/09/18 05/09/18 05/09/18 15:27 21:15 21:15 WBC RBC Hgb Hct MCV MCH MCHC RDW Plt Count MPV Absolute Neuts (auto) Neutrophils % Neutrophils % (Manual) Band Neutrophils % Lymphocytes % Lymphocytes % (Manual) Monocytes % Monocytes % (Manual) Eosinophils % Eosinophils % (Manual) Basophils % Basophils % (Manual) Myelocytes % (Man) Promyelocytes % (Man) Blast Cells % (Manual) Nucleated RBC % Metamyelocytes Hypochromia Toxic Granulation Dohle Bodies Platelet Estimate Polychromasia Poikilocytosis Basophilic Stippling Anisocytosis Microcytosis Macrocytosis Spherocytes Sickle Cells Target Cells Tear Drop Cells Ovalocytes Stomatocytes Helmet Cells [place] Bodies [place] Rings [place] Cells Acanthocytes (Spur) Rouleaux Fragmented RBCs Schistocytes Sodium 138 Potassium 3.3 L Chloride 102 Carbon Dioxide 27 Anion Gap 9 BUN 11 Creatinine 0.4 L Creat Clearance w eGFR > 60 POC Glucometer [phone] Random Glucose 108 H Calcium 6.9 L* Phosphorus 2.0 L Magnesium 1.7 L Total Bilirubin AST ALT Alkaline Phosphatase Creatine Kinase 217 Creatine Kinase Index 0.4 CK-MB (CK-2) < 1.0 Troponin I < 0.02 Total Protein Albumin Urine Color Urine Appearance Urine pH Ur Specific [place] Urine Protein Urine Glucose (UA) Urine Ketones Urine Blood Urine Nitrite Urine Bilirubin Urine Urobilinogen Ur Leukocyte Esterase Urine WBC (Auto) Urine RBC (Auto) Urine Bacteria Urine Mucus 05/09/18 05/10/18 05/10/18 23:53 05:30 05:30 WBC 11.5 H RBC 3.58 L Hgb 9.5 L Hct 29.8 L MCV 83.4 MCH 26.5 MCHC 31.8 L RDW 18.1 H Plt Count 154 MPV 9.1 Absolute Neuts (auto) 10.0 H Neutrophils % 86.4 H Neutrophils % (Manual) Band Neutrophils % Lymphocytes % 9.1 Lymphocytes % (Manual) Monocytes % 4.1 Monocytes % (Manual) Eosinophils % 0.3 D Eosinophils % (Manual) Basophils % 0.1 Basophils % (Manual) Myelocytes % (Man) Promyelocytes % (Man) Blast Cells % (Manual) Nucleated RBC % 0 Metamyelocytes Hypochromia Toxic Granulation Dohle Bodies Platelet Estimate Polychromasia Poikilocytosis Basophilic Stippling Anisocytosis Microcytosis Macrocytosis Spherocytes Sickle Cells Target Cells Tear Drop Cells Ovalocytes Stomatocytes Helmet Cells [place] Bodies [place] Rings [place] Cells Acanthocytes (Spur) Rouleaux Fragmented RBCs Schistocytes Sodium 134 L Potassium 4.6 Chloride 102 Carbon Dioxide 24 Anion Gap 8 BUN 9 Creatinine 0.4 L Creat Clearance w eGFR > 60 POC Glucometer 154.79655 Random Glucose 95 Calcium 7.4 L Phosphorus 2.8 Magnesium 1.9 Total Bilirubin 1.6 H AST 64 H ALT 72 H Alkaline Phosphatase 164 H Creatine Kinase Creatine Kinase Index CK-MB (CK-2) Troponin I Total Protein 6.2 L Albumin 2.4 L Urine Color Urine Appearance Urine pH Ur Specific [place] Urine Protein Urine Glucose (UA) Urine Ketones Urine Blood Urine Nitrite Urine Bilirubin Urine Urobilinogen Ur Leukocyte Esterase Urine WBC (Auto) Urine RBC (Auto) Urine Bacteria Urine Mucus 05/10/18 05:53 WBC RBC Hgb Hct MCV MCH MCHC RDW Plt Count MPV Absolute Neuts (auto) Neutrophils % Neutrophils % (Manual) Band Neutrophils % Lymphocytes % Lymphocytes % (Manual) Monocytes % Monocytes % (Manual) Eosinophils % Eosinophils % (Manual) Basophils % Basophils % (Manual) Myelocytes % (Man) Promyelocytes % (Man) Blast Cells % (Manual) Nucleated RBC % Metamyelocytes Hypochromia Toxic Granulation Dohle Bodies Platelet Estimate Polychromasia Poikilocytosis Basophilic Stippling Anisocytosis Microcytosis Macrocytosis Spherocytes Sickle Cells Target Cells Tear Drop Cells Ovalocytes Stomatocytes Helmet Cells [place] Bodies [place] Rings [place] Cells Acanthocytes (Spur) Rouleaux Fragmented RBCs Schistocytes Sodium Potassium Chloride Carbon Dioxide Anion Gap BUN Creatinine Creat Clearance w eGFR POC Glucometer 119.75266 Random Glucose Calcium Phosphorus Magnesium Total Bilirubin AST ALT Alkaline Phosphatase Creatine Kinase Creatine Kinase Index CK-MB (CK-2) Troponin I Total Protein Albumin Urine Color Urine Appearance Urine pH Ur Specific [place] Urine Protein Urine Glucose (UA) Urine Ketones Urine Blood Urine Nitrite Urine Bilirubin Urine Urobilinogen Ur Leukocyte Esterase Urine WBC (Auto) Urine RBC (Auto) Urine Bacteria Urine Mucus Active Medications Generic Name Dose Route Start Last Admin Trade Name Freq PRN Reason Stop Dose Admin Acetaminophen 1,000 mg 05/08/18 20:06 05/09/18 13:24 Ofirmev Injection - IVPB 1,000 mg Q6H PRN Administration PAIN OR FEVER Albuterol Sulfate 1 amp 05/04/18 07:38 Ventolin 0.083% Nebulizer Soln - NEB Q4H PRN SHORT OF BREATH/WHEEZING Albuterol Sulfate 1 amp 05/04/18 08:30 05/09/18 20:40 Ventolin 0.083% Nebulizer Soln - NEB 1 amp RQID [facility] Administration Artificial Tears 1 drop 05/07/18 22:45 05/09/18 21:25 Artificial Tears OU 1 drop BID [facility] Administration Chlorhexidine Gluconate 1 applic 05/01/18 22:00 05/09/18 21:25 Hibiclens For Decolonization - TP 1 applic HS [facility] Administration Chlorhexidine Gluconate 15 ml 05/06/18 10:00 05/09/18 21:25 Peridex - MM 15 ml BID [facility] Administration Hydrocortisone Sodium Succinate 25 mg 05/09/18 07:51 05/09/18 21:24 Solu-Cortef - IVPUSH 25 mg BID [facility] Administration Piperacillin Sod/Tazobactam 50 mls @ 100 mls/hr 05/01/18 21:45 05/10/18 02:33 Sod 3.375 gm/ Dextrose IVPB 100 mls/hr Q6H-IV [facility] Administration Protocol Insulin Aspart 1 vial 05/08/18 07:00 05/10/18 06:55 Novolog Vial Sliding Scale - SQ Not Given BIDAC [facility] Protocol Pantoprazole Sodium 40 mg 05/05/18 10:00 05/09/18 21:24 Protonix Iv IVPUSH 40 mg BID [facility] Administration Potassium Chloride 40 meq 05/09/18 06:30 05/09/18 21:24 Potassium Chloride Oral Liquid NGT 40 meq BID [facility] Administration Thiamine HCl 250 mg 05/05/18 10:00 05/09/18 09:03 Vitamin B1 Injection - IVPB 250 mg DAILY [facility] Administration Valacyclovir HCl 1,000 mg 05/09/18 10:00 05/09/18 21:26 Valtrex - PO 05/17/18 22:00 1,000 mg BID [facility] Administration Valsartan 80 mg 05/09/18 10:00 05/09/18 09:02 Diovan - NGT 80 mg DAILY [facility] Administration ASSESSMENT/PLAN: 53yo m with PMH of GI bleed, EtOH abuse, seizures?, HTN, anemia, varicies, presenting to ICU w/ acute GIB bleed, likely upper and etoh abuse. Now found w/ septic shock unclear etiology, and in DTs. Now extubated 05/09/18. NEURO DTs 05/02/18, last drink 1pt of Vodka 05/01/18? - resolved extubated 05/09/18 Utox - neg s/p banana bag in ED c/w Thiamin 250 qd MVI detox consult seizures? - questionable hx of seizures. was evaluated by Neuro on prior admission in 02/2018. was given keppra but it was stopped as seizure was likely caused by alcohol use. Patient at that time indicated he has always had seizures only in setting of ETOH withdrawl. Pt not having any seizure like activity on this admission. Will cont to monitor. Fall?- Head CT shows no acute pathology Cardiac/PULM/GI SVT?/sinus tach 2/2 sepsis 05/01/18 - HR was in 170s but unresponsive to adenosine, responded to Lopressor Echo - nl, EF 60% cardio consult R IJ central line removed Hold IVF lasix 40 qd prn dc stress steroids c/w valsartan for pre-load and after-load reduction if not contraindicated and with close monitoring of renal function maintain MAP > 65 O2 as needed extubated 05/09/18 monitor H/H s/p 1 u prbc in ED. transfuse if <7 or significant drop in Hgb c/w active GIB Hold IVF pain ctl EKG: sinus tachycardia. no ST changes, Qtc 512 on admission monitor Qtc cxr - worsening L pulm and pleural changes, may be source of infx, CAP vs aspiration PNA CXR today shows slight R sided improvement w/ lasix elevate head of bed, aspiration precautions FOBT pos protonix BID dcd octreotide - hx varices?, may be source of bleed. H/H stable and has been on for 72 hrs. GI consult underwent EGD 07/[address] Hester that revealed severe erosive esophagitis. spoke w/ GI. can feed pt. H/H has stabilized, no plans for scope at this time ID septic shock, unclear etiology, w/ fevers (Tmax 105) and R IJ placement. improving, off pressors and s/p 7-9 L IVF cxr showed worsening L pulm and pleural changes, may be source of infx, CAP vs aspiration PNA sputum cx x2 - Klebsiella P. s/p CTX/zosyn in ED ID consult abx- zosyn no indication for vanc at this time. ucx, bcx, legionella, flu neg rpt ucx, bcx neg f/u rpt ucx, , sputum cx 05/09/18 - bcx neg vesicular ulcers and petechia around lips and mouth lesions likely 2/2 HSV valcyclovir day 3 of 10 HEME Neutropenia and thrombocytopenia coagulopathy, likely related to liver disease, alcohol abuse, and Sepsis unclear etiology, possibly 2/2 PNA - resolved fibrinogen nl heme consult vit k 10mg sq x1 dose 05/02/18 vit K 5 sq 05/03/18 Ideally would like to maintain platelets > 80K-100K and if feasible INR@1.2 transfuse plt and FFP as needed Iron studies reveal Iron deficiency as well as anemia of chronic disease due to low TIBC and elevated ferritin. RENAL Anion Gap acidosis/lactic acidosis w/ multiple lyte abnl consistent w/ ETOH ketoacidosis - hypo K, Mg, Ca, Cl - resolved HU- likely pre renal - resolved monitor Cr, UOP s/p 7-9 L IVF Hold IVF s/p lasix yesterday w/ good response, more lasix today dc yeung c/w valsartan for pre-load and after-load reduction if not contraindicated and with close monitoring of renal function FEN Hold IVF replete prn Ful liquid, advance as tolerated ppx SCD protonix BID bacid Dispo: pt stable and ready for transfer to floors. Further care per primary team/PCP Head CT neg. spoke w/ GI. can feed pt. H/H has stabilized, no plans for scope at this time PT eval Visit type - Emergency Visit Emergency Visit: Yes ED Registration Date: 05/01/18 Care time: The patient presented to the Emergency Department on the above date and was hospitalized for further evaluation of their emergent condition. - New Patient This patient is new to me today: Yes Date on this admission: 05/10/18 - Critical Care Critical Care patient: Yes Total Critical Care Time (in minutes): 38 Critical Care Statement: The care of this patient involved high complexity decision making to prevent further life threatening deterioration of the patient 's condition and/or to evaluate & treat vital organ system(s) failure or risk of failure.
[2018-05-10] MEDS ORDERED: ONDANSETRON 4 MG/2 ML VIAL IVPUSH ONE (07:38)
[2018-05-10] MEDS: ALBUTEROL SO4 0.083% IH SOL 2.5 MG/3 ML VIAL.NEB. NEB SCH ×4 (08:32→21:00)
[2018-05-10] MEDS ORDERED: PT OWN MED DRAWER 7, Y5N ONE ×2 (09:07→21:35)
[2018-05-10] MEDS: ARTIFICIAL TEARS (POLYVINYL ALCOHOL) OPTH DROPS OU SCH ×2 (09:08→21:54)
[2018-05-10] MEDS: MULTIVIT-MINERALS ORAL LIQUID PO SCH (09:08)
[2018-05-10] MEDS: HYDROCORTISONE SOD SUCCINATE 100 MG/2 ML VIAL IVPUSH SCH (09:09)
[2018-05-10] MEDS: VALSARTAN 80 MG TABLET (UD) NGT SCH (09:09)
[2018-05-10] MEDS: PANTOPRAZOLE SODIUM 40 MG VIAL IVPUSH SCH ×2 (09:09→21:50)
[2018-05-10] MEDS: THIAMINE HCL 200 MG/2 ML VIAL IVPB SCH (09:11)
[2018-05-10] MEDS: valACYclovir HCL 500 MG TABLET (FP) PO SCH ×2 (09:11→21:54)
[2018-05-10 09:45] LABS: ACANTHOCYTES 0; ANISOCYTOSIS 0; HELMET CELLS 0; HOWELL-JOLLY BODIES 0; MACROCYTOSIS 0; OVALOCYTE 0; ROULEAU 0; SICKELED CELLS 0; TARGET CELLS 0; TEAR DROP CELLS 0; TOXIC GRANULATION 0
--- NOTE | 2018-05-10 09:50 | EKG ---
Test Reason : Blood Pressure : / mmHG Vent. Rate : 089 BPM Atrial Rate : 089 BPM P-R Int : 134 ms QRS Dur : 094 ms QT Int : 370 ms P-R-T Axes : 000 141 163 degrees QTc Int : 450 ms NORMAL SINUS RHYTHM RIGHT AXIS DEVIATION ABNORMAL ECG WHEN COMPARED WITH ECG OF 01-MAY-2018 20:30, VENT. RATE HAS DECREASED BY 51 BPM QRS AXIS SHIFTED RIGHT INVERTED T WAVES HAVE REPLACED NONSPECIFIC T WAVE ABNORMALITY IN LATERAL LEADS Confirmed by MANPREET LARRY MD ([id number]) on 05/10/2018 9:50:19 AM Referred By: Confirmed By:MANPREET LARRY MD
[2018-05-10] MEDS ORDERED: FUROSEMIDE 40 MG/4 ML INJECTABLE VIAL IVPUSH ONE (10:04)
[2018-05-10] MEDS ORDERED: MAGNESIUM OXIDE 400 MG TABLET (FP) PO ONE (10:04)
[2018-05-10] MEDS ORDERED: POTASSIUM CHLORIDE TABS 20 MEQ TABLET.ER (FP) PO ONE (10:04)
[2018-05-10] MEDS ORDERED: NAPH,MB-DB/K PH,MBDB POWDER PACKET PO ONE (10:05)
[2018-05-10] MEDS: LACTOBACILLUS ACIDOPHILUS 1 TABLET PO SCH (10:45)
--- NOTE | 2018-05-10 10:56 | PN ---
Teaching Attending Note Name of Resident: Dre Martinez ATTENDING PHYSICIAN STATEMENT I saw and evaluated the patient. I reviewed the resident's note and discussed the case with the resident. I agree with the resident's findings and plan as documented. SUBJECTIVE: Pt seen and examined in the ICU. Extubated yesterday without incident. Remains extubated today. Denies shortness of breath. Continues to diurese well with lasix but not at dry weight yet. Fever curve trending down, cultures NGTD. OBJECTIVE: Vital Signs Period Temp Pulse Resp BP Sys/Boykin Pulse Ox Last 24 Hr 98 F-101 F 78-104 10-26 92-163/67-88 96-99 Intake & Output 05/07/18 05/08/18 05/09/18 05/10/18 23:59 23:59 23:59 23:59 Intake Total 3194.2 5021.3 3150.2 1340 Output Total 2800 28034 5650 2400 Balance 394.2 -5178.7 -2499.8 -1060 Weight 93.984 kg 95.617 kg 86.409 kg 83.642 kg Gen: NAD at rest Heart: RRR Lung: decreased breath sounds at the bases Abd: soft, nontender Ext: less edema CBC, BMP 05/10/18 05:30 05/10/18 05:30 Active Medications Acetaminophen (Ofirmev Injection -) 1,000 mg IVPB Q6H PRN PRN Reason: PAIN OR FEVER Last Admin: 05/09/18 13:24 Dose: 1,000 mg Albuterol Sulfate (Ventolin 0.083% Nebulizer Soln -) 1 amp NEB Q4H PRN PRN Reason: SHORT OF BREATH/WHEEZING Albuterol Sulfate (Ventolin 0.083% Nebulizer Soln -) 1 amp NEB RQID [facility]PA Last Admin: 05/10/18 08:32 Dose: 1 amp Artificial Tears (Artificial Tears) 1 drop OU BID [facility] Last Admin: 05/10/18 09:08 Dose: 1 drop Chlorhexidine Gluconate (Hibiclens For Decolonization -) 1 applic TP HS [facility] Last Admin: 05/09/18 21:25 Dose: 1 applic Piperacillin Sod/Tazobactam (Sod 3.375 gm/ Dextrose) 50 mls @ 100 mls/hr IVPB Q6H-IV [facility]; Protocol Last Admin: 05/10/18 09:08 Dose: 100 mls/hr Insulin Aspart (Novolog Vial Sliding Scale -) 1 vial SQ BIDAC [facility]; Protocol Last Admin: 05/10/18 06:55 Dose: Not Given Lactobacillus Acidophilus (Bacid -) 1 tab PO DAILY [facility] Last Admin: 05/10/18 10:45 Dose: 1 tab Pantoprazole Sodium (Protonix Iv) 40 mg IVPUSH BID [facility] Last Admin: 05/10/18 09:09 Dose: 40 mg Thiamine HCl (Vitamin B1 Injection -) 250 mg IVPB DAILY [facility] Last Admin: 05/10/18 09:11 Dose: 250 mg Valacyclovir HCl (Valtrex -) 1,000 mg PO BID [facility] Stop: 05/17/18 22:00 Last Admin: 05/10/18 09:11 Dose: 1,000 mg Valsartan (Diovan -) 80 mg NGT DAILY [facility] Last Admin: 05/10/18 09:09 Dose: 80 mg ASSESSMENT AND PLAN: Acute Hypoxic Respiratory Failure improving Pneumonia likely Aspiration Septic Shock resolved GI Bleed stable r/o Varices Alcohol Abuse/Withdrawal Thrombocytopenia Volume Overload - continue antibiotics - off pressors, maintain MAP >65 - continue protonix - monitor CBC - transfuse as needed - continue lasix - monitor urine output, creatinine - keep net negative - taper off hydrocortisone - DVT/GI prophylaxis - can monitor on floor critical care time spent in reviewing chart, evaluating patient and formulating plan 35 min
--- NOTE | 2018-05-10 11:48 | PN ---
Progress Note, Physician History of Present Illness: Extubated yesterday, now on NC. - Current Medication List Current Medications: Active Medications Acetaminophen (Ofirmev Injection -) 1,000 mg IVPB Q6H PRN PRN Reason: PAIN OR FEVER Last Admin: 05/09/18 13:24 Dose: 1,000 mg Albuterol Sulfate (Ventolin 0.083% Nebulizer Soln -) 1 amp NEB Q4H PRN PRN Reason: SHORT OF BREATH/WHEEZING Albuterol Sulfate (Ventolin 0.083% Nebulizer Soln -) 1 amp NEB RQID [facility] Last Admin: 05/10/18 11:31 Dose: 1 amp Artificial Tears (Artificial Tears) 1 drop OU BID [facility] Last Admin: 05/10/18 09:08 Dose: 1 drop Chlorhexidine Gluconate (Hibiclens For Decolonization -) 1 applic TP HS [facility] Last Admin: 05/09/18 21:25 Dose: 1 applic Piperacillin Sod/Tazobactam (Sod 3.375 gm/ Dextrose) 50 mls @ 100 mls/hr IVPB Q6H-IV [facility]; Protocol Last Admin: 05/10/18 09:08 Dose: 100 mls/hr Insulin Aspart (Novolog Vial Sliding Scale -) 1 vial SQ BIDAC [facility]; Protocol Last Admin: 05/10/18 06:55 Dose: Not Given Lactobacillus Acidophilus (Bacid -) 1 tab PO DAILY [facility] Last Admin: 05/10/18 10:45 Dose: 1 tab Pantoprazole Sodium (Protonix Iv) 40 mg IVPUSH BID [facility] Last Admin: 05/10/18 09:09 Dose: 40 mg Thiamine HCl (Vitamin B1 Injection -) 250 mg IVPB DAILY [facility] Last Admin: 05/10/18 09:11 Dose: 250 mg Valacyclovir HCl (Valtrex -) 1,000 mg PO BID [facility] Stop: 05/17/18 22:00 Last Admin: 05/10/18 09:11 Dose: 1,000 mg Valsartan (Diovan -) 80 mg NGT DAILY [facility] Last Admin: 05/10/18 09:09 Dose: 80 mg - Objective Vital Signs: Vital Signs Temperature 99.1 F 05/10/18 10:00 Pulse Rate 101 H 05/10/18 10:00 Respiratory Rate 10 05/10/18 10:00 Blood Pressure 92/67 05/10/18 10:00 O2 Sat by Pulse Oximetry (%) 96 05/10/18 08:35 Constitutional: Yes: No Distress, Calm Neck: Yes: Supple Cardiovascular: Yes: Regular Rate and Rhythm, Tachycardia Respiratory: Yes: Regular, Diminished, On Nasal O2 Gastrointestinal: Yes: Soft, Hypoactive Bowel Sounds Edema: No Labs: CBC, BMP 05/10/18 05:30 05/10/18 05:30 INR, PTT INR 1.19 (0.83-1.09) H 05/09/18 05:15 Fibrinogen 386.0 mg/dL (238-498) 05/03/18 05:15 - ....Imaging Chest X-ray: Report Reviewed (Improved pulm edema and pleural effusion) EKG: Report Reviewed (NSR RAD) Problem List - Problems (1) GI bleed Code(s): K92.2 - GASTROINTESTINAL HEMORRHAGE, UNSPECIFIED Qualifiers: GI bleed type/associated pathology: gastrointestinal hemorrhage with hematemesis Qualified Code(s): K92.0 - Hematemesis (2) Septic shock Code(s): A41.9 - SEPSIS, UNSPECIFIED ORGANISM; R65.21 - SEVERE SEPSIS WITH SEPTIC SHOCK (3) Erosive esophagitis Code(s): K22.10 - ULCER OF ESOPHAGUS WITHOUT BLEEDING (4) Hematemesis Code(s): K92.0 - HEMATEMESIS Qualifiers: Nausea presence: unspecified Qualified Code(s): K92.0 - Hematemesis (5) Seizure Code(s): R56.9 - UNSPECIFIED CONVULSIONS (6) Thrombocytopenia Code(s): D69.6 - THROMBOCYTOPENIA, UNSPECIFIED (7) Alcohol abuse Code(s): F10.10 - ALCOHOL ABUSE, UNCOMPLICATED (8) Jessica-Gimenez tear Code(s): K22.6 - GASTRO-ESOPHAGEAL LACERATION-HEMORRHAGE SYNDROME (9) UGIB (upper gastrointestinal bleed) Code(s): K92.2 - GASTROINTESTINAL HEMORRHAGE, UNSPECIFIED (10) Hyperlipidemia Code(s): E78.5 - HYPERLIPIDEMIA, UNSPECIFIED Qualifiers: Hyperlipidemia type: pure hypercholesterolemia Qualified Code(s): E78.00 - Pure hypercholesterolemia, unspecified; E78.0 - Pure hypercholesterolemia (11) Acute respiratory failure Code(s): J96.00 - ACUTE RESPIRATORY FAILURE, UNSP W HYPOXIA OR HYPERCAPNIA Qualifiers: Respiratory failure complication: hypoxia Qualified Code(s): J96.01 - Acute respiratory failure with hypoxia Assessment/Plan 05/02/2018 Echo: Normal LV and RV size and fxn, LVEF 50%, mild MR, TR, AR 1. Post hypercapneic hypoxic respiratory failure with non-cardiogenic pulmonary edema/ARDS resolving 2. Aspiration pneumonia with resolved septic shock/hypotension resolved 3. Acute upper gastrointestinal bleed with history of erosive esophagitis and varices 4. History of ETOH/alcohol abuse 5. Seizure disorder 6. Thrombocytopenia, resolved/anemia PLAN: 1. Complete abx course, O2 2. IV diuresis with close monitoring of diuretic response, renal function and electrolytes 3. Change Diovan 80 qd to Nadolol 20 qd (variceal prophylaxis/portal hypertension) as hemodynamics tolerate 4. Monitor CBC (Hg) and transfuse as needed. 5. EGD as per GI service, Protonix
[2018-05-10 13:54] LABS: PLATELET ESTIMATE ADEQUATE
[2018-05-10] MEDS ORDERED: morphine SULFATE 4 MG/ML VIAL ONE (15:26)
--- NOTE | 2018-05-10 15:45 | PN ---
Progress Note, Physician History of Present Illness: doing well...talking - Current Medication List Current Medications: Active Medications Acetaminophen (Ofirmev Injection -) 1,000 mg IVPB Q6H PRN PRN Reason: PAIN OR FEVER Last Admin: 05/09/18 13:24 Dose: 1,000 mg Albuterol Sulfate (Ventolin 0.083% Nebulizer Soln -) 1 amp NEB Q4H PRN PRN Reason: SHORT OF BREATH/WHEEZING Albuterol Sulfate (Ventolin 0.083% Nebulizer Soln -) 1 amp NEB RQID [facility] Last Admin: 05/10/18 11:31 Dose: 1 amp Artificial Tears (Artificial Tears) 1 drop OU BID [facility] Last Admin: 05/10/18 09:08 Dose: 1 drop Chlorhexidine Gluconate (Hibiclens For Decolonization -) 1 applic TP HS [facility] Last Admin: 05/09/18 21:25 Dose: 1 applic Piperacillin Sod/Tazobactam (Sod 3.375 gm/ Dextrose) 50 mls @ 100 mls/hr IVPB Q6H-IV [facility]; Protocol Last Admin: 05/10/18 15:29 Dose: 100 mls/hr Insulin Aspart (Novolog Vial Sliding Scale -) 1 vial SQ ACHS [facility]; Protocol Lactobacillus Acidophilus (Bacid -) 1 tab PO DAILY [facility] Last Admin: 05/10/18 10:45 Dose: 1 tab Morphine Sulfate (Morphine Sulfate) 4 mg IVPUSH ONCE ONE Stop: 05/10/18 15:46 Last Admin: 05/10/18 15:29 Dose: 4 mg Nadolol (Corgard -) 20 mg PO DAILY [facility] Pantoprazole Sodium (Protonix Iv) 40 mg IVPUSH BID [facility] Last Admin: 05/10/18 09:09 Dose: 40 mg Sodium Chloride ([place] Nasal [place] -) 2 spray NS BID [facility] Valacyclovir HCl (Valtrex -) 1,000 mg PO BID [facility] Stop: 05/17/18 22:00 Last Admin: 05/10/18 09:11 Dose: 1,000 mg - Objective Vital Signs: Vital Signs Temperature 98.6 F 05/10/18 14:00 Pulse Rate 98 H 05/10/18 14:00 Respiratory Rate 10 05/10/18 14:00 Blood Pressure 94/54 L 05/10/18 14:00 O2 Sat by Pulse Oximetry (%) 96 05/10/18 08:35 Constitutional: Yes: No Distress HENT: Yes: Atraumatic Neck: Yes: Supple Cardiovascular: Yes: Regular Rate and Rhythm Respiratory: Yes: CTA Bilaterally Gastrointestinal: Yes: Normal Bowel Sounds Extremities: Yes: WNL Edema: No Neurological: Yes: Alert, Oriented Labs: CBC, BMP 05/10/18 05:30 05/10/18 05:30 INR, PTT INR 1.19 (0.83-1.09) H 05/09/18 05:15 Fibrinogen 386.0 mg/dL (238-498) 05/03/18 05:15 Problem List - Problems (1) Hematemesis Assessment/Plan: resolved Code(s): K92.0 - HEMATEMESIS Qualifiers: Nausea presence: unspecified Qualified Code(s): K92.0 - Hematemesis (2) GI bleed Assessment/Plan: on prophylaxis Code(s): K92.2 - GASTROINTESTINAL HEMORRHAGE, UNSPECIFIED Qualifiers: GI bleed type/associated pathology: gastrointestinal hemorrhage with hematemesis Qualified Code(s): K92.0 - Hematemesis (3) Alcohol use disorder Assessment/Plan: stable Code(s): BSP1994 - (4) Sepsis Assessment/Plan: on abx Code(s): A41.9 - SEPSIS, UNSPECIFIED ORGANISM (5) Septic shock Assessment/Plan: off of pressors iv abx Code(s): A41.9 - SEPSIS, UNSPECIFIED ORGANISM; R65.21 - SEVERE SEPSIS WITH SEPTIC SHOCK Assessment/Plan cc time 35 min
[2018-05-10 17:21] LABS: ALBUMIN 2.5 g/dl (3.4-5.0); ALK PHOS 156 U/L (45-117); ANION GAP 10 MMOL/L (8-16); BILIRUBIN,TOTAL 1.6 mg/dL (0.2-1); BLOOD UREA NITROGEN 16 mg/dL (7-18); CALCIUM 7.3 mg/dL (8.5-10.1); CHLORIDE 100 mmol/L (98-107); CO2 24 mmol/L (21-32); CREATININE 0.6 mg/dL (0.55-1.3); GLUCOSE,RANDOM 114 mg/dL (74-106); PHOSPHOROUS 2.8 mg/dL (2.5-4.9); POTASSIUM 4.5 mmol/L (3.5-5.1); SGOT/AST 54 U/L (15-37); SGPT/ALT 70 U/L (13-61); SODIUM 134 mmol/L (136-145); TOT PROT 6.4 g/dl (6.4-8.2)
--- NOTE | 2018-05-10 20:39 | PN ---
Progress Note, Physician History of Present Illness: stable extubated awake and alert fever curve trending down - Current Medication List Current Medications: Active Medications Acetaminophen (Ofirmev Injection -) 1,000 mg IVPB Q6H PRN PRN Reason: PAIN OR FEVER Last Admin: 05/09/18 13:24 Dose: 1,000 mg Albuterol Sulfate (Ventolin 0.083% Nebulizer Soln -) 1 amp NEB Q4H PRN PRN Reason: SHORT OF BREATH/WHEEZING Albuterol Sulfate (Ventolin 0.083% Nebulizer Soln -) 1 amp NEB RQID [facility] Last Admin: 05/10/18 15:45 Dose: 1 amp Artificial Tears (Artificial Tears) 1 drop OU BID [facility] Last Admin: 05/10/18 09:08 Dose: 1 drop Chlorhexidine Gluconate (Hibiclens For Decolonization -) 1 applic TP HS [facility] Last Admin: 05/09/18 21:25 Dose: 1 applic Piperacillin Sod/Tazobactam (Sod 3.375 gm/ Dextrose) 50 mls @ 100 mls/hr IVPB Q6H-IV [facility]; Protocol Last Admin: 05/10/18 15:29 Dose: 100 mls/hr Insulin Aspart (Novolog Vial Sliding Scale -) 1 vial SQ ACHS [facility]; Protocol Last Admin: 05/10/18 16:13 Dose: Not Given Lactobacillus Acidophilus (Bacid -) 1 tab PO DAILY [facility] Last Admin: 05/10/18 10:45 Dose: 1 tab Nadolol (Corgard -) 20 mg PO DAILY [facility] Pantoprazole Sodium (Protonix Iv) 40 mg IVPUSH BID [facility] Last Admin: 05/10/18 09:09 Dose: 40 mg Sodium Chloride ([place] Nasal [place] -) 2 spray NS BID [facility] Valacyclovir HCl (Valtrex -) 1,000 mg PO BID [facility] Stop: 05/17/18 22:00 Last Admin: 05/10/18 09:11 Dose: 1,000 mg - Objective Vital Signs: Vital Signs Temperature 98.7 F 05/10/18 18:00 Pulse Rate 100 H 05/10/18 18:00 Respiratory Rate 17 05/10/18 18:00 Blood Pressure 107/64 05/10/18 18:00 O2 Sat by Pulse Oximetry (%) 96 05/10/18 08:35 Constitutional: Yes: No Distress, Calm Cardiovascular: Yes: Regular Rate and Rhythm Respiratory: Yes: Regular, Rhonchi, Other Gastrointestinal: Yes: Normal Bowel Sounds, Soft Musculoskeletal: Yes: WNL Extremities: Yes: WNL Edema: LLE: Trace, RLE: Trace Neurological: Yes: Alert, Oriented Psychiatric: Yes: Alert Labs: CBC, BMP 05/10/18 05:30 05/10/18 16:30 INR, PTT INR 1.19 (0.83-1.09) H 05/09/18 05:15 Fibrinogen 386.0 mg/dL (238-498) 05/03/18 05:15 Assessment/Plan Acute GI bleed suspected Variceal in nature ETOH abuse Seizures HTN Anemia Suspected Septic Shock: source unclear Coagulopathy fevers plan abx as per icu monitor fevers patient probably with aspiration stabilizing fevers probably from pna once afebrile will consider deescalating all cx negative so far cc 40 min
[2018-05-10] MEDS: CHLORHEXIDINE GLUCONATE 4% CLEANSER FOR DECOLONIZATION TP SCH (21:49)
[2018-05-10] MEDS: SODIUM CHLORIDE NASAL SPRAY 44 ML BOTTLE NS SCH (21:50)
[2018-05-10] MEDS: ACETAMINOPHEN 1000 MG/100 ML VIAL (NON FORMULARY) IVPB PRN (22:00)
[2018-05-10] MEDS ORDERED: morphine SULFATE 4 MG/ML VIAL IVPUSH PRN (22:22)
[2018-05-10] MEDS: METOCLOPRAMIDE HCL INJECTION 10 MG/2 ML VIAL IVPUSH PRN (23:04)
[2018-05-11] MEDS ORDERED: PIPERACILLIN/TAZOBACTAM 3.375 GM VIAL IVPB ONE ×3 (01:56→13:08)
[2018-05-11] MEDS ORDERED: DEXTROSE 5%-WATER - 50 ML IVPB ONE ×3 (01:57→13:09)
[2018-05-11] MEDS: PIPERACILLIN/TAZOB 3.375 GM 3.375 GM in DEXTROSE 5%-WATER - 50 ML IVPB SCH ×3 (02:37→14:09)
[2018-05-11 05:56] LABS: BASO % 0.2 % (0-2.0); EOS % 0.6 % (0-4.5); HEMATOCRIT 28.8 % (35.4-49); HEMOGLOBIN 9.3 GM/dL (11.7-16.9); LYMPH % 11.5 % (8-40); MCH 27.3 pg (25.7-33.7); MCHC 32.5 g/dl (32.0-35.9); MEAN CELL VOLUME 84.1 fl (80-96); MEAN PLT VOLUME 9.7 fl (7.5-11.1); MONO % 5.5 % (3.8-10.2); NEUT % 82.2 % (42.8-82.8); PLATELET COUNT 180 K/MM3 (134-434); RBC 3.42 M/mm3 (4.00-5.60); RDW 18.1 % (11.9-15.9); WHITE BLOOD COUNT 9.3 K/mm3 (4.0-10.0)
[2018-05-11 06:29] LABS: ALBUMIN 2.3 g/dl (3.4-5.0); ALK PHOS 135 U/L (45-117); ANION GAP 8 MMOL/L (8-16); BILIRUBIN,TOTAL 1.6 mg/dL (0.2-1); BLOOD UREA NITROGEN 13 mg/dL (7-18); CALCIUM 7.1 mg/dL (8.5-10.1); CHLORIDE 100 mmol/L (98-107); CO2 25 mmol/L (21-32); CREATININE 0.4 mg/dL (0.55-1.3); GLUCOSE,RANDOM 90 mg/dL (74-106); MAGNESIUM 1.9 mg/dL (1.8-2.4); PHOSPHOROUS 2.2 mg/dL (2.5-4.9); POTASSIUM 4.1 mmol/L (3.5-5.1); SGOT/AST 52 U/L (15-37); SGPT/ALT 64 U/L (13-61); SODIUM 133 mmol/L (136-145)
[2018-05-11] MEDS: INSULIN SLIDING SCALE (NOVOLOG) 1 VIAL SQ SCH ×2 (07:02→11:30)
[2018-05-11] MEDS: ALBUTEROL SO4 0.083% IH SOL 2.5 MG/3 ML VIAL.NEB. NEB SCH ×4 (08:00→20:50)
[2018-05-11] MEDS ORDERED: NAPH,MB-DB/K PH,MBDB POWDER PACKET PO ONE (08:30)
[2018-05-11] MEDS ORDERED: MAGNESIUM OXIDE 400 MG TABLET (FP) PO ONE (08:30)
[2018-05-11] MEDS ORDERED: PT OWN MED DRAWER 7, Y5N ONE ×3 (08:37→19:49)
--- NOTE | 2018-05-11 08:48 | PN ---
Physical Exam: SUBJECTIVE: Patient seen and examined in the ICU. remains extubated. No active bleeding and hemodynamically stable. fever overnight, improving abdominal pain. lasix yesterday w/ good UOP. tolerating PO. OBJECTIVE: Vital Signs Period Temp Pulse Resp BP Sys/Boykin Pulse Ox Last 24 Hr 98.6 F-100.4 F 87-113 10-20 89-130/53-78 97-98 GENERAL: AOx3 NAD HEENT: NCAT, vesicular ulcers and petechia around lips and mouth. MMM NECK: supple LUNGS: crackles b/l HEART:tachy RR, normal S1 and S2 without m/r/g ABDOMEN: Soft, ND normoactive bowel sounds MUSCULOSKELETAL: No bony deformities or tenderness. UPPER EXTREMITIES: 2+ pulses, warm, well-perfused. No cyanosis. No clubbing. Cap refill <2 seconds. +1 edema improving LOWER EXTREMITIES: 2+ pulses, warm, well-perfused. No calf tenderness. No peripheral edema. NEUROLOGICAL: sensation strength grossly intact. SKIN: Warm, dry, normal turgor, no rashes or lesions noted Laboratory Results - last 24 hr 05/05/18 05/10/18 05/10/18 06:50 05:30 11:16 WBC RBC Hgb Hct MCV MCH MCHC RDW Plt Count MPV Absolute Neuts (auto) Neutrophils % Neutrophils % (Manual) 87.0 H Band Neutrophils % 2.0 Lymphocytes % Lymphocytes % (Manual) 7.0 L D Monocytes % Monocytes % (Manual) 3 L Eosinophils % Eosinophils % (Manual) 0.0 Basophils % Basophils % (Manual) 0.0 Myelocytes % (Man) 0 D Promyelocytes % (Man) 0 Blast Cells % (Manual) 0 Nucleated RBC % Metamyelocytes 0 Hypochromia 0 Toxic Granulation 0 Dohle Bodies 0 Platelet Estimate Adequate Polychromasia 0 Poikilocytosis 0 Basophilic Stippling 0 Anisocytosis 0 Microcytosis 0 Macrocytosis 0 Spherocytes 0 Sickle Cells 0 Target Cells 0 Tear Drop Cells 0 Ovalocytes 0 Stomatocytes 0 Helmet Cells 0 [place] Bodies 0 [place] Rings 0 [place] Cells 0 Acanthocytes (Spur) 0 Rouleaux 0 Fragmented RBCs 0 Schistocytes 0 O2 Delivery Device Vent Oxygen Flow Rate 40% Vent Rate 18 Mechanical Rate Yes PEEP 7.0 Pressure Support Vent 450 Sodium Potassium Chloride Carbon Dioxide Anion Gap BUN Creatinine Creat Clearance w eGFR POC Glucometer 135.40854 Random Glucose Calcium Phosphorus Magnesium Total Bilirubin AST ALT Alkaline Phosphatase Total Protein Albumin 05/10/18 05/10/18 05/10/18 16:13 16:30 21:43 WBC RBC Hgb Hct MCV MCH MCHC RDW Plt Count MPV Absolute Neuts (auto) Neutrophils % Neutrophils % (Manual) Band Neutrophils % Lymphocytes % Lymphocytes % (Manual) Monocytes % Monocytes % (Manual) Eosinophils % Eosinophils % (Manual) Basophils % Basophils % (Manual) Myelocytes % (Man) Promyelocytes % (Man) Blast Cells % (Manual) Nucleated RBC % Metamyelocytes Hypochromia Toxic Granulation Dohle Bodies Platelet Estimate Polychromasia Poikilocytosis Basophilic Stippling Anisocytosis Microcytosis Macrocytosis Spherocytes Sickle Cells Target Cells Tear Drop Cells Ovalocytes Stomatocytes Helmet Cells [place] Bodies [place] Rings [place] Cells Acanthocytes (Spur) Rouleaux Fragmented RBCs Schistocytes O2 Delivery Device Oxygen Flow Rate Vent Rate Mechanical Rate PEEP Pressure Support Vent Sodium 134 L Potassium 4.5 Chloride 100 Carbon Dioxide 24 Anion Gap 10 BUN 16 Creatinine 0.6 Creat Clearance w eGFR > 60 POC Glucometer 145.62580 129.44147 Random Glucose 114 H Calcium 7.3 L Phosphorus 2.8 Magnesium 2.0 Total Bilirubin 1.6 H AST 54 H ALT 70 H Alkaline Phosphatase 156 H Total Protein 6.4 Albumin 2.5 L 05/11/18 05/11/18 05/11/18 05:30 05:30 06:55 WBC 9.3 RBC 3.42 L Hgb 9.3 L Hct 28.8 L MCV 84.1 MCH 27.3 MCHC 32.5 RDW 18.1 H Plt Count 180 MPV 9.7 Absolute Neuts (auto) 7.7 Neutrophils % 82.2 Neutrophils % (Manual) Band Neutrophils % Lymphocytes % 11.5 D Lymphocytes % (Manual) Monocytes % 5.5 Monocytes % (Manual) Eosinophils % 0.6 D Eosinophils % (Manual) Basophils % 0.2 Basophils % (Manual) Myelocytes % (Man) Promyelocytes % (Man) Blast Cells % (Manual) Nucleated RBC % 0 Metamyelocytes Hypochromia Toxic Granulation Dohle Bodies Platelet Estimate Polychromasia Poikilocytosis Basophilic Stippling Anisocytosis Microcytosis Macrocytosis Spherocytes Sickle Cells Target Cells Tear Drop Cells Ovalocytes Stomatocytes Helmet Cells [place] Bodies [place] Rings [place] Cells Acanthocytes (Spur) Rouleaux Fragmented RBCs Schistocytes O2 Delivery Device Oxygen Flow Rate Vent Rate Mechanical Rate PEEP Pressure Support Vent Sodium 133 L Potassium 4.1 Chloride 100 Carbon Dioxide 25 Anion Gap 8 BUN 13 Creatinine 0.4 L Creat Clearance w eGFR > 60 POC Glucometer 111.16513 Random Glucose 90 Calcium 7.1 L Phosphorus 2.2 L Magnesium 1.9 Total Bilirubin 1.6 H AST 52 H ALT 64 H Alkaline Phosphatase 135 H Total Protein 6.0 L Albumin 2.3 L Active Medications Generic Name Dose Route Start Last Admin Trade Name Freq PRN Reason Stop Dose Admin Acetaminophen 1,000 mg 05/08/18 20:06 05/10/18 22:00 Ofirmev Injection - IVPB 1,000 mg Q6H PRN Administration PAIN OR FEVER Albuterol Sulfate 1 amp 05/04/18 07:38 Ventolin 0.083% Nebulizer Soln - NEB Q4H PRN SHORT OF BREATH/WHEEZING Albuterol Sulfate 1 amp 05/04/18 08:30 05/10/18 21:00 Ventolin 0.083% Nebulizer Soln - NEB 1 amp RQID [facility] Administration Artificial Tears 1 drop 05/07/18 22:45 05/10/18 21:54 Artificial Tears OU 1 drop BID [facility] Administration Chlorhexidine Gluconate 1 applic 05/01/18 22:00 05/10/18 21:49 Hibiclens For Decolonization - TP 1 applic HS [facility] Administration Piperacillin Sod/Tazobactam 50 mls @ 100 mls/hr 05/01/18 21:45 05/11/18 02:37 Sod 3.375 gm/ Dextrose IVPB 100 mls/hr Q6H-IV [facility] Administration Protocol Insulin Aspart 1 vial 05/10/18 11:50 05/11/18 07:02 Novolog Vial Sliding Scale - SQ Not Given ACHS [facility] Protocol Lactobacillus Acidophilus 1 tab 05/10/18 10:15 05/10/18 10:45 Bacid - PO 1 tab DAILY [facility] Administration Metoclopramide HCl 10 mg 05/10/18 22:22 05/10/18 23:04 Reglan Injection - IVPUSH 10 mg Q8H PRN Administration NAUSEA AND/OR VOMITING Morphine Sulfate 4 mg 05/10/18 22:22 05/11/18 02:48 Morphine Sulfate IVPUSH 4 mg Q4H PRN Administration PAIN LEVEL 6-10 Nadolol 20 mg 05/11/18 10:00 Corgard - PO DAILY [facility] Pantoprazole Sodium 40 mg 05/05/18 10:00 05/10/18 21:50 Protonix Iv IVPUSH 40 mg BID [facility] Administration Sodium Chloride 2 spray 05/10/18 22:00 05/10/18 21:50 [place] Nasal [place] - NS Not Given BID [facility] Valacyclovir HCl 1,000 mg 05/09/18 10:00 05/10/18 21:54 Valtrex - PO 05/17/18 22:00 1,000 mg BID [facility] Administration ASSESSMENT/PLAN: 53yo m with PMH of GI bleed, EtOH abuse, seizures?, HTN, anemia, varicies, presenting to ICU w/ acute GIB bleed, likely upper and etoh abuse. Now found w/ septic shock unclear etiology, and in DTs. Now extubated 05/09/18. NEURO DTs 05/02/18, last drink 1pt of Vodka 05/01/18? - resolved extubated 05/09/18 Utox - neg s/p banana bag in ED s/p Thiamin MVI detox consult seizures? - questionable hx of seizures. was evaluated by Neuro on prior admission in 02/2018. was given keppra but it was stopped as seizure was likely caused by alcohol use. Patient at that time indicated he has always had seizures only in setting of ETOH withdrawl. Pt not having any seizure like activity on this admission. Will cont to monitor. Fall?- Head CT shows no acute pathology Cardiac/PULM/GI SVT?/sinus tach 2/2 sepsis 05/01/18 - HR was in 170s but unresponsive to adenosine, responded to Lopressor Echo - nl, EF 60% cardio consult R IJ central line removed Hold IVF lasix 40 qd prn s/p stress steroids Change Diovan 80 qd to Nadolol 20 qd (variceal prophylaxis/portal hypertension) as hemodynamics tolerate maintain MAP > 65 O2 as needed extubated 05/09/18 incentive spirometry monitor H/H s/p 1 u prbc in ED. transfuse if <7 or significant drop in Hgb c/w active GIB Hold IVF pain ctl EKG: sinus tachycardia. no ST changes, Qtc 512 on admission monitor Qtc cxr - worsening L pulm and pleural changes, may be source of infx, CAP vs aspiration PNA CXR shows improvement w/ lasix elevate head of bed, aspiration precautions FOBT pos protonix BID s/p octreotide GI consult underwent EGD 07/[address] Hester that revealed severe erosive esophagitis. spoke w/ GI. can feed pt. H/H has stabilized, no plans for scope at this time ID septic shock, unclear etiology, w/ fevers (Tmax 105) and R IJ placement. improving, off pressors and s/p 7-9 L IVF cxr showed worsening L pulm and pleural changes, may be source of infx, CAP vs aspiration PNA sputum cx x3 - Klebsiella P. w/ increasing resistance s/p CTX/zosyn in ED ID consult abx- zosyn no indication for vanc at this time. ucx, bcx, legionella, flu neg rpt ucx, bcx neg 05/09/18 - ucx, bcx neg vesicular ulcers and petechia around lips and mouth lesions likely 2/2 HSV valcyclovir day 4 of 10 HEME Neutropenia and thrombocytopenia coagulopathy, likely related to liver disease, alcohol abuse, and Sepsis unclear etiology, possibly 2/2 PNA - resolved fibrinogen nl heme consult vit k 10mg sq x1 dose 05/02/18 vit K 5 sq 05/03/18 Ideally would like to maintain platelets > 80K-100K and if feasible INR@1.2 transfuse plt and FFP as needed Iron studies reveal Iron deficiency as well as anemia of chronic disease due to low TIBC and elevated ferritin. RENAL Anion Gap acidosis/lactic acidosis w/ multiple lyte abnl consistent w/ ETOH ketoacidosis - hypo K, Mg, Ca, Cl - resolved HU- likely pre renal - resolved monitor Cr s/p 7-9 L IVF Hold IVF s/p lasix yesterday w/ good response, more lasix today daily weights FEN Hold IVF replete prn Ful liquid, advance as tolerated ppx SCD protonix BID bacid Dispo: pt stable and ready for transfer to floors. Further care per primary team/PCP Head CT neg. spoke w/ GI. can feed pt. H/H has stabilized, no plans for scope at this time PT eval Visit type - Emergency Visit Emergency Visit: Yes ED Registration Date: 05/01/18 Care time: The patient presented to the Emergency Department on the above date and was hospitalized for further evaluation of their emergent condition. - New Patient This patient is new to me today: Yes Date on this admission: 05/11/18 - Critical Care Critical Care patient: Yes Total Critical Care Time (in minutes): 38 Critical Care Statement: The care of this patient involved high complexity decision making to prevent further life threatening deterioration of the patient 's condition and/or to evaluate & treat vital organ system(s) failure or risk of failure.
[2018-05-11] MEDS: valACYclovir HCL 500 MG TABLET (FP) PO SCH ×2 (10:03→21:54)
[2018-05-11] MEDS: PANTOPRAZOLE SODIUM 40 MG VIAL IVPUSH SCH ×2 (10:03→21:53)
[2018-05-11] MEDS: NADOLOL 20 MG TABLET (FP) PO SCH (10:04)
[2018-05-11] MEDS: MULTIVIT-MINERALS ORAL LIQUID PO SCH (10:05)
[2018-05-11] MEDS: LACTOBACILLUS ACIDOPHILUS 1 TABLET PO SCH (10:05)
[2018-05-11] MEDS ORDERED: FUROSEMIDE 40 MG/4 ML INJECTABLE VIAL IVPUSH ONE (10:29)
[2018-05-11] MEDS: ARTIFICIAL TEARS (POLYVINYL ALCOHOL) OPTH DROPS OU SCH ×2 (11:00→22:00)
[2018-05-11] MEDS: SODIUM CHLORIDE NASAL SPRAY 44 ML BOTTLE NS SCH ×2 (11:00→22:00)
--- NOTE | 2018-05-11 11:13 | PN ---
Teaching Attending Note Name of Resident: Dre Martinez ATTENDING PHYSICIAN STATEMENT I saw and evaluated the patient. I reviewed the resident's note and discussed the case with the resident. I agree with the resident's findings and plan as documented. SUBJECTIVE: Pt seen and examined in the ICU. Denies shortness of breath. Febrile overnight. OBJECTIVE: Vital Signs Period Temp Pulse Resp BP Sys/Boykin Pulse Ox Last 24 Hr 98.6 F-100.4 F 87-113 10-26 89-130/53-78 97-98 Intake & Output 05/08/18 05/09/18 05/10/18 05/11/18 23:59 23:59 23:59 23:59 Intake Total 5021.3 3150.2 1870 Output Total 95718 5650 3620 740 Balance -5178.7 -2499.8 -1750 -740 Weight 95.617 kg 86.409 kg 83.642 kg Gen: NAD at rest Heart: tachycardic, regular Lung: scattered rhonchi Abd: soft, nontender Ext: less edema CBC, BMP 05/11/18 05:30 05/11/18 05:30 Active Medications Acetaminophen (Ofirmev Injection -) 1,000 mg IVPB Q6H PRN PRN Reason: PAIN OR FEVER Last Admin: 05/10/18 22:00 Dose: 1,000 mg Albuterol Sulfate (Ventolin 0.083% Nebulizer Soln -) 1 amp NEB Q4H PRN PRN Reason: SHORT OF BREATH/WHEEZING Albuterol Sulfate (Ventolin 0.083% Nebulizer Soln -) 1 amp NEB RQID [facility] Last Admin: 05/11/18 08:00 Dose: 1 amp Artificial Tears (Artificial Tears) 1 drop OU BID [facility] Last Admin: 05/10/18 21:54 Dose: 1 drop Chlorhexidine Gluconate (Hibiclens For Decolonization -) 1 applic TP HS [facility] Last Admin: 05/10/18 21:49 Dose: 1 applic Piperacillin Sod/Tazobactam (Sod 3.375 gm/ Dextrose) 50 mls @ 100 mls/hr IVPB Q6H-IV [facility]; Protocol Last Admin: 05/11/18 09:15 Dose: 100 mls/hr Insulin Aspart (Novolog Vial Sliding Scale -) 1 vial SQ ACHS [facility]; Protocol Last Admin: 05/11/18 07:02 Dose: Not Given Lactobacillus Acidophilus (Bacid -) 1 tab PO DAILY [facility] Last Admin: 05/11/18 10:05 Dose: 1 tab Metoclopramide HCl (Reglan Injection -) 10 mg IVPUSH Q8H PRN PRN Reason: NAUSEA AND/OR VOMITING Last Admin: 05/10/18 23:04 Dose: 10 mg Morphine Sulfate (Morphine Sulfate) 4 mg IVPUSH Q4H PRN PRN Reason: PAIN LEVEL 6-10 Last Admin: 05/11/18 02:48 Dose: 4 mg Nadolol (Corgard -) 20 mg PO DAILY [facility] Last Admin: 05/11/18 10:04 Dose: 20 mg Pantoprazole Sodium (Protonix Iv) 40 mg IVPUSH BID [facility] Last Admin: 05/11/18 10:03 Dose: 40 mg Sodium Chloride ([place] Nasal [place] -) 2 spray NS BID [facility] Last Admin: 05/10/18 21:50 Dose: Not Given Valacyclovir HCl (Valtrex -) 1,000 mg PO BID [facility] Stop: 05/17/18 22:00 Last Admin: 05/11/18 10:03 Dose: 1,000 mg ASSESSMENT AND PLAN: Acute Hypoxic Respiratory Failure improving Pneumonia likely Aspiration Septic Shock resolved GI Bleed stable r/o Varices Alcohol Abuse/Withdrawal Thrombocytopenia Volume Overload - continue antibiotics - off pressors, maintain MAP >65 - continue protonix - monitor CBC - transfuse as needed - continue lasix - monitor urine output, creatinine - keep net negative - off hydrocortisone - DVT/GI prophylaxis - can monitor on floor
--- NOTE | 2018-05-11 11:55 | PN ---
Progress Note, Physician History of Present Illness: OOB to chair, remains on NC, low grade fevers overnight. - Current Medication List Current Medications: Active Medications Acetaminophen (Ofirmev Injection -) 1,000 mg IVPB Q6H PRN PRN Reason: PAIN OR FEVER Last Admin: 05/10/18 22:00 Dose: 1,000 mg Albuterol Sulfate (Ventolin 0.083% Nebulizer Soln -) 1 amp NEB Q4H PRN PRN Reason: SHORT OF BREATH/WHEEZING Albuterol Sulfate (Ventolin 0.083% Nebulizer Soln -) 1 amp NEB RQID [facility] Last Admin: 05/11/18 08:00 Dose: 1 amp Artificial Tears (Artificial Tears) 1 drop OU BID [facility] Last Admin: 05/10/18 21:54 Dose: 1 drop Chlorhexidine Gluconate (Hibiclens For Decolonization -) 1 applic TP HS [facility] Last Admin: 05/10/18 21:49 Dose: 1 applic Docusate Sodium (Colace -) 100 mg PO TID [facility] Piperacillin Sod/Tazobactam (Sod 3.375 gm/ Dextrose) 50 mls @ 100 mls/hr IVPB Q6H-IV [facility]; Protocol Last Admin: 05/11/18 09:15 Dose: 100 mls/hr Lactobacillus Acidophilus (Bacid -) 1 tab PO DAILY [facility] Last Admin: 05/11/18 10:05 Dose: 1 tab Metoclopramide HCl (Reglan Injection -) 10 mg IVPUSH Q8H PRN PRN Reason: NAUSEA AND/OR VOMITING Last Admin: 05/10/18 23:04 Dose: 10 mg Morphine Sulfate (Morphine Sulfate) 4 mg IVPUSH Q4H PRN PRN Reason: PAIN LEVEL 6-10 Last Admin: 05/11/18 02:48 Dose: 4 mg Nadolol (Corgard -) 20 mg PO DAILY [facility] Last Admin: 05/11/18 10:04 Dose: 20 mg Pantoprazole Sodium (Protonix Iv) 40 mg IVPUSH BID [facility] Last Admin: 05/11/18 10:03 Dose: 40 mg Sodium Chloride ([place] Nasal [place] -) 2 spray NS BID [facility] Last Admin: 05/10/18 21:50 Dose: Not Given Valacyclovir HCl (Valtrex -) 1,000 mg PO BID [facility] Stop: 05/17/18 22:00 Last Admin: 05/11/18 10:03 Dose: 1,000 mg - Objective Vital Signs: Vital Signs Temperature 99.7 F H 05/11/18 10:00 Pulse Rate 109 H 05/11/18 10:00 Respiratory Rate 26 H 05/11/18 10:00 Blood Pressure 120/76 05/11/18 10:00 O2 Sat by Pulse Oximetry (%) 98 05/11/18 09:00 Constitutional: Yes: No Distress, Calm Neck: Yes: Supple Cardiovascular: Yes: Regular Rate and Rhythm Respiratory: Yes: Regular, CTA Bilaterally, On Nasal O2 Gastrointestinal: Yes: Normal Bowel Sounds, Soft Edema: No Labs: CBC, BMP 05/11/18 05:30 05/11/18 05:30 INR, PTT INR 1.19 (0.83-1.09) H 05/09/18 05:15 Fibrinogen 386.0 mg/dL (238-498) 05/03/18 05:15 - ....Imaging EKG: Report Reviewed (Tele: ST) Problem List - Problems (1) GI bleed Code(s): K92.2 - GASTROINTESTINAL HEMORRHAGE, UNSPECIFIED Qualifiers: GI bleed type/associated pathology: gastrointestinal hemorrhage with hematemesis Qualified Code(s): K92.0 - Hematemesis (2) Septic shock Code(s): A41.9 - SEPSIS, UNSPECIFIED ORGANISM; R65.21 - SEVERE SEPSIS WITH SEPTIC SHOCK (3) Erosive esophagitis Code(s): K22.10 - ULCER OF ESOPHAGUS WITHOUT BLEEDING (4) Hematemesis Code(s): K92.0 - HEMATEMESIS Qualifiers: Nausea presence: unspecified Qualified Code(s): K92.0 - Hematemesis (5) Seizure Code(s): R56.9 - UNSPECIFIED CONVULSIONS (6) Thrombocytopenia Code(s): D69.6 - THROMBOCYTOPENIA, UNSPECIFIED (7) Alcohol abuse Code(s): F10.10 - ALCOHOL ABUSE, UNCOMPLICATED (8) Jessica-Gimenez tear Code(s): K22.6 - GASTRO-ESOPHAGEAL LACERATION-HEMORRHAGE SYNDROME (9) UGIB (upper gastrointestinal bleed) Code(s): K92.2 - GASTROINTESTINAL HEMORRHAGE, UNSPECIFIED (10) Hyperlipidemia Code(s): E78.5 - HYPERLIPIDEMIA, UNSPECIFIED Qualifiers: Hyperlipidemia type: pure hypercholesterolemia Qualified Code(s): E78.00 - Pure hypercholesterolemia, unspecified; E78.0 - Pure hypercholesterolemia (11) Acute respiratory failure Code(s): J96.00 - ACUTE RESPIRATORY FAILURE, UNSP W HYPOXIA OR HYPERCAPNIA Qualifiers: Respiratory failure complication: hypoxia Qualified Code(s): J96.01 - Acute respiratory failure with hypoxia Assessment/Plan 05/02/2018 Echo: Normal LV and RV size and fxn, LVEF 50%, mild MR, TR, AR 1. Post hypercapneic hypoxic respiratory failure with non-cardiogenic pulmonary edema/ARDS resolving 2. Aspiration pneumonia with resolved septic shock/hypotension resolved 3. Acute upper gastrointestinal bleed with history of erosive esophagitis and varices 4. History of ETOH/alcohol abuse 5. Seizure disorder 6. Thrombocytopenia, resolved/anemia PLAN: 1. Complete abx course, O2 2. IV diuresis with close monitoring of diuretic response, renal function and electrolytes 3. Continue Nadolol 20 qd (variceal prophylaxis/portal hypertension) as hemodynamics tolerate 4. Monitor CBC (Hg) and transfuse as needed. 5. EGD as per GI service, Protonix
[2018-05-11] MEDS: DOCUSATE SODIUM 100 MG CAPSULE (FP) PO SCH ×2 (14:09→21:54)
--- NOTE | 2018-05-11 14:26 | PN ---
Progress Note, Physician History of Present Illness: denies any complaint breathing well no other issues still spiking fever--spiked last night - Current Medication List Current Medications: Active Medications Acetaminophen (Ofirmev Injection -) 1,000 mg IVPB Q6H PRN PRN Reason: PAIN OR FEVER Last Admin: 05/10/18 22:00 Dose: 1,000 mg Albuterol Sulfate (Ventolin 0.083% Nebulizer Soln -) 1 amp NEB Q4H PRN PRN Reason: SHORT OF BREATH/WHEEZING Albuterol Sulfate (Ventolin 0.083% Nebulizer Soln -) 1 amp NEB RQID [facility] Last Admin: 05/11/18 11:58 Dose: 1 amp Artificial Tears (Artificial Tears) 1 drop OU BID [facility] Last Admin: 05/11/18 11:00 Dose: 1 drop Chlorhexidine Gluconate (Hibiclens For Decolonization -) 1 applic TP HS [facility] Last Admin: 05/10/18 21:49 Dose: 1 applic Docusate Sodium (Colace -) 100 mg PO TID [facility] Last Admin: 05/11/18 14:09 Dose: 100 mg Lactobacillus Acidophilus (Bacid -) 1 tab PO DAILY [facility] Last Admin: 05/11/18 10:05 Dose: 1 tab Metoclopramide HCl (Reglan Injection -) 10 mg IVPUSH Q8H PRN PRN Reason: NAUSEA AND/OR VOMITING Last Admin: 05/10/18 23:04 Dose: 10 mg Morphine Sulfate (Morphine Sulfate) 4 mg IVPUSH Q4H PRN PRN Reason: PAIN LEVEL 6-10 Last Admin: 05/11/18 02:48 Dose: 4 mg Nadolol (Corgard -) 20 mg PO DAILY [facility] Last Admin: 05/11/18 10:04 Dose: 20 mg Pantoprazole Sodium (Protonix Iv) 40 mg IVPUSH BID [facility] Last Admin: 05/11/18 10:03 Dose: 40 mg Sodium Chloride ([place] Nasal [place] -) 2 spray NS BID [facility] Last Admin: 05/11/18 11:00 Dose: 2 sprays Valacyclovir HCl (Valtrex -) 1,000 mg PO BID [facility] Stop: 05/17/18 22:00 Last Admin: 05/11/18 10:03 Dose: 1,000 mg - Objective Vital Signs: Vital Signs Temperature 99.7 F H 05/11/18 10:00 Pulse Rate 106 H 05/11/18 12:00 Respiratory Rate 22 H 05/11/18 12:00 Blood Pressure 105/62 05/11/18 12:00 O2 Sat by Pulse Oximetry (%) 98 05/11/18 10:00 Constitutional: Yes: No Distress, Calm Respiratory: Yes: Regular, Rhonchi Gastrointestinal: Yes: Normal Bowel Sounds, Soft Musculoskeletal: Yes: WNL Extremities: Yes: WNL Neurological: Yes: Alert, Oriented Psychiatric: Yes: Alert, Oriented Labs: CBC, BMP 05/11/18 05:30 05/11/18 05:30 INR, PTT INR 1.19 (0.83-1.09) H 05/09/18 05:15 Fibrinogen 386.0 mg/dL (238-498) 05/03/18 05:15 Assessment/Plan Acute GI bleed suspected Variceal in nature ETOH abuse Seizures HTN Anemia Suspected Septic Shock: source unclear Coagulopathy fevers plan abx as per icu monitor fevers patient probably with aspiration stabilizing fevers probably from pna once afebrile will consider deescalating all cx negative so far cc 35 min
[2018-05-11 16:39] LABS: ALBUMIN 2.6 g/dl (3.4-5.0); ALK PHOS 152 U/L (45-117); ANION GAP 10 MMOL/L (8-16); BILIRUBIN,TOTAL 1.6 mg/dL (0.2-1); BLOOD UREA NITROGEN 16 mg/dL (7-18); CALCIUM 7.6 mg/dL (8.5-10.1); CHLORIDE 98 mmol/L (98-107); CO2 24 mmol/L (21-32); CREATININE 0.6 mg/dL (0.55-1.3); GLUCOSE,RANDOM 106 mg/dL (74-106); MAGNESIUM 1.9 mg/dL (1.8-2.4); PHOSPHOROUS 2.5 mg/dL (2.5-4.9); POTASSIUM 4.1 mmol/L (3.5-5.1); SGOT/AST 73 U/L (15-37); SGPT/ALT 79 U/L (13-61); SODIUM 132 mmol/L (136-145); TOT PROT 6.6 g/dl (6.4-8.2)
--- NOTE | 2018-05-11 16:49 | PN ---
Progress Note, Physician History of Present Illness: doing well...talking - Current Medication List Current Medications: Active Medications Acetaminophen (Ofirmev Injection -) 1,000 mg IVPB Q6H PRN PRN Reason: PAIN OR FEVER Last Admin: 05/10/18 22:00 Dose: 1,000 mg Albuterol Sulfate (Ventolin 0.083% Nebulizer Soln -) 1 amp NEB Q4H PRN PRN Reason: SHORT OF BREATH/WHEEZING Albuterol Sulfate (Ventolin 0.083% Nebulizer Soln -) 1 amp NEB RQID [facility] Last Admin: 05/11/18 16:22 Dose: 1 amp Artificial Tears (Artificial Tears) 1 drop OU BID [facility] Last Admin: 05/11/18 11:00 Dose: 1 drop Chlorhexidine Gluconate (Hibiclens For Decolonization -) 1 applic TP HS [facility] Last Admin: 05/10/18 21:49 Dose: 1 applic Docusate Sodium (Colace -) 100 mg PO TID [facility] Last Admin: 05/11/18 14:09 Dose: 100 mg Lactobacillus Acidophilus (Bacid -) 1 tab PO DAILY [facility] Last Admin: 05/11/18 10:05 Dose: 1 tab Metoclopramide HCl (Reglan Injection -) 10 mg IVPUSH Q8H PRN PRN Reason: NAUSEA AND/OR VOMITING Last Admin: 05/10/18 23:04 Dose: 10 mg Morphine Sulfate (Morphine Sulfate) 4 mg IVPUSH Q4H PRN PRN Reason: PAIN LEVEL 6-10 Last Admin: 05/11/18 02:48 Dose: 4 mg Nadolol (Corgard -) 20 mg PO DAILY [facility] Last Admin: 05/11/18 10:04 Dose: 20 mg Pantoprazole Sodium (Protonix Iv) 40 mg IVPUSH BID [facility] Last Admin: 05/11/18 10:03 Dose: 40 mg Sodium Chloride ([place] Nasal [place] -) 2 spray NS BID [facility] Last Admin: 05/11/18 11:00 Dose: 2 sprays Valacyclovir HCl (Valtrex -) 1,000 mg PO BID [facility] Stop: 05/17/18 22:00 Last Admin: 05/11/18 10:03 Dose: 1,000 mg - Objective Vital Signs: Vital Signs Temperature 99.0 F 05/11/18 14:00 Pulse Rate 93 H 05/11/18 14:00 Respiratory Rate 25 H 05/11/18 14:00 Blood Pressure 95/64 05/11/18 14:00 O2 Sat by Pulse Oximetry (%) 98 05/11/18 10:00 Constitutional: Yes: No Distress HENT: Yes: Atraumatic Neck: Yes: Supple Cardiovascular: Yes: Regular Rate and Rhythm Respiratory: Yes: CTA Bilaterally Gastrointestinal: Yes: Normal Bowel Sounds Extremities: Yes: WNL Edema: No Peripheral Pulses WNL: Yes Neurological: Yes: Alert, Oriented Labs: CBC, BMP 05/11/18 05:30 05/11/18 15:40 INR, PTT INR 1.19 (0.83-1.09) H 05/09/18 05:15 Fibrinogen 386.0 mg/dL (238-498) 05/03/18 05:15 Problem List - Problems (1) Hematemesis Assessment/Plan: resolved Code(s): K92.0 - HEMATEMESIS Qualifiers: Nausea presence: unspecified Qualified Code(s): K92.0 - Hematemesis (2) GI bleed Assessment/Plan: on prophylaxis Code(s): K92.2 - GASTROINTESTINAL HEMORRHAGE, UNSPECIFIED Qualifiers: GI bleed type/associated pathology: gastrointestinal hemorrhage with hematemesis Qualified Code(s): K92.0 - Hematemesis (3) Alcohol use disorder Assessment/Plan: stable Code(s): [id number] - (4) Sepsis Assessment/Plan: completed abx Code(s): A41.9 - SEPSIS, UNSPECIFIED ORGANISM (5) Septic shock Code(s): A41.9 - SEPSIS, UNSPECIFIED ORGANISM; R65.21 - SEVERE SEPSIS WITH SEPTIC SHOCK
[2018-05-11] MEDS: METOCLOPRAMIDE HCL INJECTION 10 MG/2 ML VIAL IVPUSH PRN (21:53)
[2018-05-11] MEDS: CHLORHEXIDINE GLUCONATE 4% CLEANSER FOR DECOLONIZATION TP SCH (22:00)
[2018-05-12 05:51] LABS: BASO % 0.6 % (0-2.0); EOS % 0.6 % (0-4.5); HEMATOCRIT 29.6 % (35.4-49); HEMOGLOBIN 9.6 GM/dL (11.7-16.9); LYMPH % 11.5 % (8-40); MCH 27.3 pg (25.7-33.7); MCHC 32.3 g/dl (32.0-35.9); MEAN CELL VOLUME 84.4 fl (80-96); MEAN PLT VOLUME 9.9 fl (7.5-11.1); MONO % 8.3 % (3.8-10.2); PLATELET COUNT 228 K/MM3 (134-434); RDW 17.8 % (11.9-15.9); WHITE BLOOD COUNT 8.8 K/mm3 (4.0-10.0)
[2018-05-12 06:10] LABS: ALBUMIN 2.5 g/dl (3.4-5.0); ALK PHOS 142 U/L (45-117); ANION GAP 6 MMOL/L (8-16); BILIRUBIN,TOTAL 1.4 mg/dL (0.2-1); BLOOD UREA NITROGEN 15 mg/dL (7-18); CALCIUM 7.5 mg/dL (8.5-10.1); CHLORIDE 100 mmol/L (98-107); CO2 26 mmol/L (21-32); CREATININE 0.4 mg/dL (0.55-1.3); GLUCOSE,RANDOM 80 mg/dL (74-106); MAGNESIUM 1.8 mg/dL (1.8-2.4); PHOSPHOROUS 2.1 mg/dL (2.5-4.9); POTASSIUM 3.8 mmol/L (3.5-5.1); SGOT/AST 59 U/L (15-37); SGPT/ALT 74 U/L (13-61); SODIUM 132 mmol/L (136-145); TOT PROT 6.5 g/dl (6.4-8.2)
[2018-05-12] MEDS: DOCUSATE SODIUM 100 MG CAPSULE (FP) PO SCH ×3 (06:27→22:37)
[2018-05-12] MEDS ORDERED: PT OWN MED DRAWER 7, Y5N ONE ×5 (07:38→18:45)
[2018-05-12] MEDS: ALBUTEROL SO4 0.083% IH SOL 2.5 MG/3 ML VIAL.NEB. NEB SCH ×4 (08:33→20:54)
--- NOTE | 2018-05-12 08:35 | PN ---
Physical Exam: SUBJECTIVE: Patient seen and examined in the ICU. remains extubated. No active bleeding and hemodynamically stable. low grade temp 100F overnight, improving abdominal pain. lasix yesterday w/ good UOP. tolerating PO. OOB in chair OBJECTIVE: Vital Signs Period Temp Pulse Resp BP Sys/Boykin Pulse Ox Last 24 Hr 98.9 F-100 F 85-109 14-26 95-121/58-106 98-100 GENERAL: AOx3 NAD HEENT: NCAT, vesicular ulcers and petechia around lips and mouth. MMM NECK: supple LUNGS: crackles b/l, improving HEART:tachy RR, normal S1 and S2 without m/r/g ABDOMEN: Soft, ND normoactive bowel sounds MUSCULOSKELETAL: No bony deformities or tenderness. UPPER EXTREMITIES: 2+ pulses, warm, well-perfused. No cyanosis. No clubbing. Cap refill <2 seconds. no edema LOWER EXTREMITIES: 2+ pulses, warm, well-perfused. No calf tenderness. No peripheral edema. NEUROLOGICAL: sensation strength grossly intact. SKIN: Warm, dry, normal turgor, no rashes or lesions noted Laboratory Results - last 24 hr 05/11/18 05/12/18 05/12/18 15:40 05:00 05:00 WBC 8.8 RBC 3.50 L Hgb 9.6 L Hct 29.6 L MCV 84.4 MCH 27.3 MCHC 32.3 RDW 17.8 H Plt Count 228 D MPV 9.9 Absolute Neuts (auto) 6.9 Neutrophils % 79.0 Lymphocytes % 11.5 Monocytes % 8.3 Eosinophils % 0.6 Basophils % 0.6 Nucleated RBC % 0 Sodium 132 L 132 L Potassium 4.1 3.8 Chloride 98 100 Carbon Dioxide 24 26 Anion Gap 10 6 L BUN 16 15 Creatinine 0.6 0.4 L Creat Clearance w eGFR > 60 > 60 Random Glucose 106 80 Calcium 7.6 L 7.5 L Phosphorus 2.5 2.1 L Magnesium 1.9 1.8 Total Bilirubin 1.6 H 1.4 H AST 73 H 59 H ALT 79 H 74 H Alkaline Phosphatase 152 H 142 H Total Protein 6.6 6.5 Albumin 2.6 L 2.5 L Active Medications Generic Name Dose Route Start Last Admin Trade Name Freq PRN Reason Stop Dose Admin Acetaminophen 1,000 mg 05/08/18 20:06 05/10/18 22:00 Ofirmev Injection - IVPB 1,000 mg Q6H PRN Administration PAIN OR FEVER Albuterol Sulfate 1 amp 05/04/18 07:38 Ventolin 0.083% Nebulizer Soln - NEB Q4H PRN SHORT OF BREATH/WHEEZING Albuterol Sulfate 1 amp 05/04/18 08:30 05/11/18 20:50 Ventolin 0.083% Nebulizer Soln - NEB 1 amp RQID [facility] Administration Artificial Tears 1 drop 05/07/18 22:45 05/11/18 22:00 Artificial Tears OU 1 drop BID [facility] Administration Chlorhexidine Gluconate 1 applic 05/01/18 22:00 05/11/18 22:00 Hibiclens For Decolonization - TP 1 applic HS [facility] Administration Docusate Sodium 100 mg 05/11/18 14:00 05/12/18 06:27 Colace - PO Not Given TID [facility] Lactobacillus Acidophilus 1 tab 05/10/18 10:15 05/11/18 10:05 Bacid - PO 1 tab DAILY [facility] Administration Metoclopramide HCl 10 mg 05/10/18 22:22 05/11/18 21:53 Reglan Injection - IVPUSH 10 mg Q8H PRN Administration NAUSEA AND/OR VOMITING Morphine Sulfate 4 mg 05/10/18 22:22 05/11/18 02:48 Morphine Sulfate IVPUSH 4 mg Q4H PRN Administration PAIN LEVEL 6-10 Nadolol 20 mg 05/11/18 10:00 05/11/18 10:04 Corgard - PO 20 mg DAILY [facility] Administration Pantoprazole Sodium 40 mg 05/05/18 10:00 05/11/18 21:53 Protonix Iv IVPUSH 40 mg BID [facility] Administration Potassium Phos/Sodium Phos 1 packet 05/12/18 08:45 Phos-Nak Packet - PO 05/12/18 08:46 ONCE ONE Sodium Chloride 2 spray 05/10/18 22:00 05/11/18 22:00 [place] Nasal [place] - NS Not Given BID [facility] Valacyclovir HCl 1,000 mg 05/09/18 10:00 05/11/18 21:54 Valtrex - PO 05/17/18 22:00 1,000 mg BID [facility] Administration ASSESSMENT/PLAN: 53yo m with PMH of GI bleed, EtOH abuse, seizures?, HTN, anemia, varicies, presenting to ICU w/ acute GIB bleed, likely upper and etoh abuse. Now found w/ septic shock likley 2/2 PNA, and in DTs. Now extubated 05/09/18. NEURO DTs 05/02/18, last drink 1pt of Vodka 05/01/18? - resolved extubated 05/09/18 Utox - neg s/p banana bag in ED s/p Thiamin MVI detox consult seizures? - questionable hx of seizures. was evaluated by Neuro on prior admission in 02/2018. was given keppra but it was stopped as seizure was likely caused by alcohol use. Patient at that time indicated he has always had seizures only in setting of ETOH withdrawl. Pt not having any seizure like activity on this admission. Will cont to monitor. Fall?- Head CT shows no acute pathology Cardiac/PULM/GI SVT?/sinus tach 2/2 sepsis 05/01/18 - HR was in 170s but unresponsive to adenosine, responded to Lopressor Echo - nl, EF 60% cardio consult R IJ central line removed Hold IVF lasix 40 qd prn c/w Nadolol 20 qd (variceal prophylaxis/portal hypertension) as hemodynamics tolerate maintain MAP > 65 O2 as needed extubated 05/09/18 incentive spirometry monitor H/H s/p 1 u prbc in ED. transfuse if <7 or significant drop in Hgb c/w active GIB Hold IVF pain ctl EKG: sinus tachycardia. no ST changes, Qtc 512 on admission monitor Qtc CXR shows improvement w/ lasix elevate head of bed, aspiration precautions FOBT pos protonix BID s/p octreotide GI consult underwent EGD 07/[address] Hester that revealed severe erosive esophagitis. spoke w/ GI. can feed pt. H/H has stabilized, no plans for scope at this time abd pain - improving w/ reglan, pain ctl w/ bowel regimen. ID septic shock likely 2/2 CAP vs aspiration PNA - resolved sputum cx x3 - Klebsiella P. w/ increasing resistance s/p CTX/zosyn in ED ID consult s/p zosyn tx 10d no indication for vanc at this time. ucx, bcx, legionella, flu neg rpt ucx, bcx neg 05/09/18 - ucx, bcx neg vesicular ulcers and petechia around lips and mouth lesions likely 2/2 HSV valcyclovir day 5 of 10 HEME Neutropenia and thrombocytopenia coagulopathy, likely 2/2 liver disease, alcohol abuse, and Sepsis likely 2/2 PNA - resolved fibrinogen nl heme consult vit k 10mg sq x1 dose 05/02/18 vit K 5 sq 05/03/18 Ideally would like to maintain platelets > 80K-100K and if feasible INR@1.2 transfuse plt and FFP as needed Iron studies reveal Iron deficiency as well as anemia of chronic disease due to low TIBC and elevated ferritin. RENAL Anion Gap acidosis/lactic acidosis w/ multiple lyte abnl consistent w/ ETOH ketoacidosis - hypo K, Mg, Ca, Cl - resolved HU- likely pre renal - resolved monitor Cr s/p 7-9 L IVF Hold IVF s/p lasix yesterday w/ good response. hold off lasix, pt appears euvolemic now daily weights FEN Hold IVF replete prn sodium ctl diet ppx SCD protonix BID bacid Dispo: pt stable and ready for transfer to floors. Further care per primary team/PCP Head CT neg. spoke w/ GI. can feed pt. H/H has stabilized, no plans for scope at this time PT eval Visit type - Emergency Visit Emergency Visit: Yes ED Registration Date: 05/01/18 Care time: The patient presented to the Emergency Department on the above date and was hospitalized for further evaluation of their emergent condition. - New Patient This patient is new to me today: Yes Date on this admission: 05/12/18 - Critical Care Critical Care patient: Yes Total Critical Care Time (in minutes): 37 Critical Care Statement: The care of this patient involved high complexity decision making to prevent further life threatening deterioration of the patient 's condition and/or to evaluate & treat vital organ system(s) failure or risk of failure.
[2018-05-12] MEDS ORDERED: NAPH,MB-DB/K PH,MBDB POWDER PACKET PO ONE (08:45)
--- NOTE | 2018-05-12 09:42 | PN ---
Progress Note, Physician History of Present Illness: OOB to chair, remains on NC, low grade fevers overnight. - Current Medication List Current Medications: Active Medications Acetaminophen (Ofirmev Injection -) 1,000 mg IVPB Q6H PRN PRN Reason: PAIN OR FEVER Last Admin: 05/10/18 22:00 Dose: 1,000 mg Albuterol Sulfate (Ventolin 0.083% Nebulizer Soln -) 1 amp NEB Q4H PRN PRN Reason: SHORT OF BREATH/WHEEZING Albuterol Sulfate (Ventolin 0.083% Nebulizer Soln -) 1 amp NEB RQID [facility] Last Admin: 05/12/18 08:33 Dose: 1 amp Artificial Tears (Artificial Tears) 1 drop OU BID [facility] Last Admin: 05/11/18 22:00 Dose: 1 drop Chlorhexidine Gluconate (Hibiclens For Decolonization -) 1 applic TP HS [facility] Last Admin: 05/11/18 22:00 Dose: 1 applic Docusate Sodium (Colace -) 100 mg PO TID [facility] Last Admin: 05/12/18 06:27 Dose: Not Given Lactobacillus Acidophilus (Bacid -) 1 tab PO DAILY [facility] Last Admin: 05/11/18 10:05 Dose: 1 tab Metoclopramide HCl (Reglan Injection -) 10 mg IVPUSH Q8H PRN PRN Reason: NAUSEA AND/OR VOMITING Last Admin: 05/11/18 21:53 Dose: 10 mg Morphine Sulfate (Morphine Sulfate) 4 mg IVPUSH Q4H PRN PRN Reason: PAIN LEVEL 6-10 Last Admin: 05/11/18 02:48 Dose: 4 mg Nadolol (Corgard -) 20 mg PO DAILY [facility] Last Admin: 05/11/18 10:04 Dose: 20 mg Pantoprazole Sodium (Protonix Iv) 40 mg IVPUSH BID [facility] Last Admin: 05/11/18 21:53 Dose: 40 mg Sodium Chloride ([place] Nasal [place] -) 2 spray NS BID [facility] Last Admin: 05/11/18 22:00 Dose: Not Given Valacyclovir HCl (Valtrex -) 1,000 mg PO BID [facility] Stop: 05/17/18 22:00 Last Admin: 05/11/18 21:54 Dose: 1,000 mg - Objective Vital Signs: Vital Signs Temperature 98.9 F 05/12/18 06:00 Pulse Rate 94 H 12/14/18 08:00 Respiratory Rate 24 H 05/12/18 08:19 Blood Pressure 114/58 L 05/12/18 08:00 O2 Sat by Pulse Oximetry (%) 100 05/12/18 08:19 Constitutional: Yes: No Distress, Calm Neck: Yes: Supple Cardiovascular: Yes: Regular Rate and Rhythm Respiratory: Yes: Regular, Diminished Gastrointestinal: Yes: Normal Bowel Sounds, Soft Edema: No Labs: CBC, BMP 05/12/18 05:00 05/12/18 05:00 INR, PTT INR 1.19 (0.83-1.09) H 05/09/18 05:15 Fibrinogen 386.0 mg/dL (238-498) 05/03/18 05:15 Problem List - Problems (1) GI bleed Code(s): K92.2 - GASTROINTESTINAL HEMORRHAGE, UNSPECIFIED Qualifiers: GI bleed type/associated pathology: gastrointestinal hemorrhage with hematemesis Qualified Code(s): K92.0 - Hematemesis (2) Septic shock Code(s): A41.9 - SEPSIS, UNSPECIFIED ORGANISM; R65.21 - SEVERE SEPSIS WITH SEPTIC SHOCK (3) Erosive esophagitis Code(s): K22.10 - ULCER OF ESOPHAGUS WITHOUT BLEEDING (4) Hematemesis Code(s): K92.0 - HEMATEMESIS Qualifiers: Nausea presence: unspecified Qualified Code(s): K92.0 - Hematemesis (5) Seizure Code(s): R56.9 - UNSPECIFIED CONVULSIONS (6) Thrombocytopenia Code(s): D69.6 - THROMBOCYTOPENIA, UNSPECIFIED (7) Alcohol abuse Code(s): F10.10 - ALCOHOL ABUSE, UNCOMPLICATED (8) Jessica-Gimenez tear Code(s): K22.6 - GASTRO-ESOPHAGEAL LACERATION-HEMORRHAGE SYNDROME (9) UGIB (upper gastrointestinal bleed) Code(s): K92.2 - GASTROINTESTINAL HEMORRHAGE, UNSPECIFIED (10) Hyperlipidemia Code(s): E78.5 - HYPERLIPIDEMIA, UNSPECIFIED Qualifiers: Hyperlipidemia type: pure hypercholesterolemia Qualified Code(s): E78.00 - Pure hypercholesterolemia, unspecified; E78.0 - Pure hypercholesterolemia (11) Acute respiratory failure Code(s): J96.00 - ACUTE RESPIRATORY FAILURE, UNSP W HYPOXIA OR HYPERCAPNIA Qualifiers: Respiratory failure complication: hypoxia Qualified Code(s): J96.01 - Acute respiratory failure with hypoxia Assessment/Plan 05/02/2018 Echo: Normal LV and RV size and fxn, LVEF 50%, mild MR, TR, AR 1. Post hypercapneic hypoxic respiratory failure with non-cardiogenic pulmonary edema/ARDS resolving 2. Aspiration pneumonia with resolved septic shock/hypotension resolved 3. Acute upper gastrointestinal bleed with history of erosive esophagitis and varices 4. History of ETOH/alcohol abuse 5. Seizure disorder 6. Thrombocytopenia, resolved/anemia PLAN: 1. Complete abx course, O2 2. IV diuresis with close monitoring of diuretic response, renal function and electrolytes 3. Continue Nadolol 20 qd (variceal prophylaxis/portal hypertension) as hemodynamics tolerate 4. Monitor CBC (Hg) and transfuse as needed. 5. EGD deferred as per GI service, Protonix 6. PT as tolerated
[2018-05-12] MEDS: PANTOPRAZOLE SODIUM 40 MG VIAL IVPUSH SCH ×2 (10:09→22:34)
[2018-05-12] MEDS: valACYclovir HCL 500 MG TABLET (FP) PO SCH ×2 (10:09→22:34)
[2018-05-12] MEDS: SODIUM CHLORIDE NASAL SPRAY 44 ML BOTTLE NS SCH ×2 (10:10→22:35)
[2018-05-12] MEDS: LACTOBACILLUS ACIDOPHILUS 1 TABLET PO SCH (10:10)
[2018-05-12] MEDS: MULTIVIT-MINERALS ORAL LIQUID PO SCH (10:10)
[2018-05-12] MEDS: NADOLOL 20 MG TABLET (FP) PO SCH (10:10)
[2018-05-12] MEDS: ARTIFICIAL TEARS (POLYVINYL ALCOHOL) OPTH DROPS OU SCH ×2 (10:11→22:36)
--- NOTE | 2018-05-12 12:22 | PN ---
Teaching Attending Note Name of Resident: Dre Martinez ATTENDING PHYSICIAN STATEMENT I saw and evaluated the patient. I reviewed the resident's note and discussed the case with the resident. I agree with the resident's findings and plan as documented. SUBJECTIVE: Patient seen and examined in the ICU. Denies shortness of breath. low grade temps overnight. No CP or SOB. OBJECTIVE: Intake & Output 05/09/18 05/10/18 05/11/18 05/12/18 23:59 23:59 23:59 23:59 Intake Total 3150.2 1870 600 100 Output Total 5650 3620 1390 500 Balance -2499.8 -1750 -790 -400 Weight 190 lb 8 oz 184 lb 6.4 oz 170 lb 14.4 oz Last Vital Signs Temp Pulse Resp BP Pulse Ox 98.9 F 101 H 26 H 104/64 97 05/12/18 06:00 05/12/18 10:00 05/12/18 10:00 05/12/18 10:00 05/12/18 10:37 Active Medications Acetaminophen (Ofirmev Injection -) 1,000 mg IVPB Q6H PRN PRN Reason: PAIN OR FEVER Last Admin: 05/10/18 22:00 Dose: 1,000 mg Albuterol Sulfate (Ventolin 0.083% Nebulizer Soln -) 1 amp NEB Q4H PRN PRN Reason: SHORT OF BREATH/WHEEZING Albuterol Sulfate (Ventolin 0.083% Nebulizer Soln -) 1 amp NEB RQID [facility] Last Admin: 05/12/18 12:01 Dose: 1 amp Artificial Tears (Artificial Tears) 1 drop OU BID [facility] Last Admin: 05/12/18 10:11 Dose: 1 drop Chlorhexidine Gluconate (Hibiclens For Decolonization -) 1 applic TP HS [facility] Last Admin: 05/11/18 22:00 Dose: 1 applic Docusate Sodium (Colace -) 100 mg PO TID [facility] Last Admin: 05/12/18 06:27 Dose: Not Given Lactobacillus Acidophilus (Bacid -) 1 tab PO DAILY [facility] Last Admin: 05/12/18 10:10 Dose: 1 tab Metoclopramide HCl (Reglan Injection -) 10 mg IVPUSH Q8H PRN PRN Reason: NAUSEA AND/OR VOMITING Last Admin: 05/11/18 21:53 Dose: 10 mg Morphine Sulfate (Morphine Sulfate) 4 mg IVPUSH Q4H PRN PRN Reason: PAIN LEVEL 6-10 Last Admin: 05/11/18 02:48 Dose: 4 mg Nadolol (Corgard -) 20 mg PO DAILY [facility] Last Admin: 05/12/18 10:10 Dose: 20 mg Pantoprazole Sodium (Protonix Iv) 40 mg IVPUSH BID [facility] Last Admin: 05/12/18 10:09 Dose: 40 mg Sodium Chloride ([place] Nasal [place] -) 2 spray NS BID [facility] Last Admin: 05/12/18 10:10 Dose: 2 sprays Valacyclovir HCl (Valtrex -) 1,000 mg PO BID [facility] Stop: 05/17/18 22:00 Last Admin: 05/12/18 10:09 Dose: 1,000 mg Gen: NAD at rest Heart: tachycardic, regular Lung: scattered rhonchi Abd: soft, nontender Ext: less edema Laboratory Results - last 24 hr 05/11/18 05/12/18 05/12/18 15:40 05:00 05:00 WBC 8.8 RBC 3.50 L Hgb 9.6 L Hct 29.6 L MCV 84.4 MCH 27.3 MCHC 32.3 RDW 17.8 H Plt Count 228 D MPV 9.9 Absolute Neuts (auto) 6.9 Neutrophils % 79.0 Lymphocytes % 11.5 Monocytes % 8.3 Eosinophils % 0.6 Basophils % 0.6 Nucleated RBC % 0 Sodium 132 L 132 L Potassium 4.1 3.8 Chloride 98 100 Carbon Dioxide 24 26 Anion Gap 10 6 L BUN 16 15 Creatinine 0.6 0.4 L Creat Clearance w eGFR > 60 > 60 Random Glucose 106 80 Calcium 7.6 L 7.5 L Phosphorus 2.5 2.1 L Magnesium 1.9 1.8 Total Bilirubin 1.6 H 1.4 H AST 73 H 59 H ALT 79 H 74 H Alkaline Phosphatase 152 H 142 H Total Protein 6.6 6.5 Albumin 2.6 L 2.5 L ASSESSMENT AND PLAN: Acute Hypoxic Respiratory Failure improving Pneumonia likely Aspiration Septic Shock resolved GI Bleed stable r/o Varices Alcohol Abuse/Withdrawal Thrombocytopenia Volume Overload - continue antibiotics - PPI - monitor CBC - transfuse as needed - monitor urine output, creatinine - keep net negative - off hydrocortisone - DVT/GI prophylaxis - Floor Dr Davalos
[2018-05-12] MEDS ORDERED: ACETAMINOPHEN 1000 MG/100 ML VIAL (NON FORMULARY) IVPB PRN (12:50)
[2018-05-12] MEDS ORDERED: ALBUTEROL SO4 0.083% IH SOL 2.5 MG/3 ML VIAL.NEB. NEB PRN (12:50)
[2018-05-12] MEDS ORDERED: METOCLOPRAMIDE HCL INJECTION 10 MG/2 ML VIAL IVPUSH PRN (12:50)
[2018-05-12] MEDS ORDERED: morphine SULFATE 4 MG/ML VIAL IVPUSH PRN (12:50)
--- NOTE | 2018-05-12 14:57 | PN ---
Progress Note, Physician History of Present Illness: stable doing well - Current Medication List Current Medications: Active Medications Acetaminophen (Ofirmev Injection -) 1,000 mg IVPB Q6H PRN PRN Reason: PAIN OR FEVER Albuterol Sulfate (Ventolin 0.083% Nebulizer Soln -) 1 amp NEB Q4H PRN PRN Reason: SHORT OF BREATH/WHEEZING Albuterol Sulfate (Ventolin 0.083% Nebulizer Soln -) 1 amp NEB RQID [facility] Artificial Tears (Artificial Tears) 1 drop OU BID [facility] Docusate Sodium (Colace -) 100 mg PO TID [facility] Influenza Virus Vaccine Quadrival (Flulaval Quad [id number]) 60 mcg IM .ONCE ONE Stop: 05/12/18 16:01 Lactobacillus Acidophilus (Bacid -) 1 tab PO DAILY [facility] Metoclopramide HCl (Reglan Injection -) 10 mg IVPUSH Q8H PRN PRN Reason: NAUSEA AND/OR VOMITING Morphine Sulfate (Morphine Sulfate) 4 mg IVPUSH Q4H PRN PRN Reason: PAIN LEVEL 6-10 Nadolol (Corgard -) 20 mg PO DAILY [facility] Pantoprazole Sodium (Protonix Iv) 40 mg IVPUSH BID [facility] Sodium Chloride ([place] Nasal [place] -) 2 spray NS BID [facility] Valacyclovir HCl (Valtrex -) 1,000 mg PO BID [facility] Stop: 05/17/18 22:00 - Objective Vital Signs: Vital Signs Temperature 99.9 F H 05/12/18 12:00 Pulse Rate 96 H 05/12/18 12:00 Respiratory Rate 26 H 05/12/18 12:00 Blood Pressure 105/58 L 05/12/18 12:00 O2 Sat by Pulse Oximetry (%) 97 05/12/18 10:37 Constitutional: Yes: No Distress, Calm Cardiovascular: Yes: Regular Rate and Rhythm Respiratory: Yes: Regular, Poor Air Entry, Other Gastrointestinal: Yes: Normal Bowel Sounds, Soft Musculoskeletal: Yes: WNL Extremities: Yes: WNL Neurological: Yes: Alert, Oriented Psychiatric: Yes: Alert, Oriented Labs: CBC, BMP 05/12/18 05:00 05/12/18 05:00 INR, PTT INR 1.19 (0.83-1.09) H 05/09/18 05:15 Fibrinogen 386.0 mg/dL (238-498) 05/03/18 05:15 Assessment/Plan Acute GI bleed suspected Variceal in nature ETOH abuse Seizures HTN Anemia Suspected Septic Shock: source unclear Coagulopathy fevers plan stable off of abx remaining afebrile as per icu monitor for bleeding stable cc 40 min
--- NOTE | 2018-05-12 15:13 | PN ---
Progress Note, Physician - Current Medication List Current Medications: Active Medications Acetaminophen (Ofirmev Injection -) 1,000 mg IVPB Q6H PRN PRN Reason: PAIN OR FEVER Albuterol Sulfate (Ventolin 0.083% Nebulizer Soln -) 1 amp NEB Q4H PRN PRN Reason: SHORT OF BREATH/WHEEZING Albuterol Sulfate (Ventolin 0.083% Nebulizer Soln -) 1 amp NEB RQID [facility] Artificial Tears (Artificial Tears) 1 drop OU BID [facility] Docusate Sodium (Colace -) 100 mg PO TID [facility] Influenza Virus Vaccine Quadrival (Flulaval Quad [id number]) 60 mcg IM .ONCE ONE Stop: 05/12/18 16:01 Lactobacillus Acidophilus (Bacid -) 1 tab PO DAILY [facility] Metoclopramide HCl (Reglan Injection -) 10 mg IVPUSH Q8H PRN PRN Reason: NAUSEA AND/OR VOMITING Morphine Sulfate (Morphine Sulfate) 4 mg IVPUSH Q4H PRN PRN Reason: PAIN LEVEL 6-10 Nadolol (Corgard -) 20 mg PO DAILY [facility] Pantoprazole Sodium (Protonix Iv) 40 mg IVPUSH BID [facility] Sodium Chloride ([place] Nasal [place] -) 2 spray NS BID [facility] Valacyclovir HCl (Valtrex -) 1,000 mg PO BID [facility] Stop: 05/17/18 22:00 - Objective Vital Signs: Vital Signs Temperature 99.9 F H 05/12/18 12:00 Pulse Rate 96 H 05/12/18 12:00 Respiratory Rate 26 H 05/12/18 12:00 Blood Pressure 105/58 L 05/12/18 12:00 O2 Sat by Pulse Oximetry (%) 97 05/12/18 10:37 Constitutional: Yes: No Distress HENT: Yes: Atraumatic Cardiovascular: Yes: Regular Rate and Rhythm Respiratory: Yes: CTA Bilaterally Extremities: Yes: WNL Edema: No Neurological: Yes: Alert, Oriented Labs: CBC, BMP 05/12/18 05:00 05/12/18 05:00 INR, PTT INR 1.19 (0.83-1.09) H 05/09/18 05:15 Fibrinogen 386.0 mg/dL (238-498) 05/03/18 05:15 Problem List - Problems (1) Hematemesis Assessment/Plan: resolved Code(s): K92.0 - HEMATEMESIS Qualifiers: Nausea presence: unspecified Qualified Code(s): K92.0 - Hematemesis (2) GI bleed Assessment/Plan: on prophylaxis Code(s): K92.2 - GASTROINTESTINAL HEMORRHAGE, UNSPECIFIED Qualifiers: GI bleed type/associated pathology: gastrointestinal hemorrhage with hematemesis Qualified Code(s): K92.0 - Hematemesis (3) Alcohol use disorder Assessment/Plan: stable Code(s): [id number] - (4) Sepsis Assessment/Plan: completed abx Code(s): A41.9 - SEPSIS, UNSPECIFIED ORGANISM (5) Septic shock Assessment/Plan: off of pressors iv abx Code(s): A41.9 - SEPSIS, UNSPECIFIED ORGANISM; R65.21 - SEVERE SEPSIS WITH SEPTIC SHOCK
[2018-05-12] MEDS ORDERED: FLU VACCINE QUAD 60 MCG/0.5 ML (MDV 18-19) IM ONE (16:00)
[2018-05-13] MEDS: DOCUSATE SODIUM 100 MG CAPSULE (FP) PO SCH ×3 (05:43→21:56)
[2018-05-13] MEDS ORDERED: PT OWN MED DRAWER 7, Y5N ONE ×2 (06:35→09:30)
[2018-05-13 07:12] LABS: BASO % 0.7 % (0-2.0); EOS % 0.4 % (0-4.5); HEMATOCRIT 28.8 % (35.4-49); LYMPH % 11.9 % (8-40); MCH 28.9 pg (25.7-33.7); MCHC 34.8 g/dl (32.0-35.9); MEAN PLT VOLUME 9.7 fl (7.5-11.1); MONO % 9.9 % (3.8-10.2); NEUT % 77.1 % (42.8-82.8); PLATELET COUNT 279 K/MM3 (134-434); RBC 3.47 M/mm3 (4.00-5.60); RDW 18.8 % (11.9-15.9); WHITE BLOOD COUNT 7.2 K/mm3 (4.0-10.0)
[2018-05-13] MEDS: ALBUTEROL SO4 0.083% IH SOL 2.5 MG/3 ML VIAL.NEB. NEB SCH ×4 (07:39→20:15)
[2018-05-13 08:15] LABS: ALBUMIN 2.5 g/dl (3.4-5.0); ALK PHOS 127 U/L (45-117); ANION GAP 7 MMOL/L (8-16); BILIRUBIN,TOTAL 1.5 mg/dL (0.2-1); BLOOD UREA NITROGEN 11 mg/dL (7-18); CALCIUM 7.6 mg/dL (8.5-10.1); CHLORIDE 99 mmol/L (98-107); CO2 24 mmol/L (21-32); CREATININE 0.4 mg/dL (0.55-1.3); GLUCOSE,RANDOM 87 mg/dL (74-106); MAGNESIUM 1.9 mg/dL (1.8-2.4); PHOSPHOROUS 2.6 mg/dL (2.5-4.9); POTASSIUM 4.1 mmol/L (3.5-5.1); SGOT/AST 88 U/L (15-37); SGPT/ALT 101 U/L (13-61); SODIUM 130 mmol/L (136-145); TOT PROT 6.8 g/dl (6.4-8.2)
[2018-05-13] MEDS: NADOLOL 20 MG TABLET (FP) PO SCH (09:58)
[2018-05-13] MEDS: LACTOBACILLUS ACIDOPHILUS 1 TABLET PO SCH (09:58)
[2018-05-13] MEDS: PANTOPRAZOLE SODIUM 40 MG VIAL IVPUSH SCH ×2 (09:59→21:57)
[2018-05-13] MEDS: SODIUM CHLORIDE NASAL SPRAY 44 ML BOTTLE NS SCH ×2 (09:59→21:57)
[2018-05-13] MEDS: ARTIFICIAL TEARS (POLYVINYL ALCOHOL) OPTH DROPS OU SCH ×2 (10:00→21:57)
[2018-05-13] MEDS: valACYclovir HCL 500 MG TABLET (FP) PO SCH ×2 (10:00→21:56)
[2018-05-13] MEDS: MULTIVIT-MINERALS ORAL LIQUID PO SCH (10:01)
--- NOTE | 2018-05-13 13:50 | PN ---
Progress Note, Physician History of Present Illness: doing much better no issues breathing well off of nasal canula - Current Medication List Current Medications: Active Medications Acetaminophen (Ofirmev Injection -) 1,000 mg IVPB Q6H PRN PRN Reason: PAIN OR FEVER Albuterol Sulfate (Ventolin 0.083% Nebulizer Soln -) 1 amp NEB Q4H PRN PRN Reason: SHORT OF BREATH/WHEEZING Albuterol Sulfate (Ventolin 0.083% Nebulizer Soln -) 1 amp NEB RQID [facility] Last Admin: 05/13/18 12:55 Dose: 1 amp Artificial Tears (Artificial Tears) 1 drop OU BID [facility] Last Admin: 05/13/18 10:00 Dose: 1 drop Docusate Sodium (Colace -) 100 mg PO TID [facility] Last Admin: 05/13/18 05:43 Dose: 100 mg Lactobacillus Acidophilus (Bacid -) 1 tab PO DAILY [facility] Last Admin: 05/13/18 09:58 Dose: 1 tab Metoclopramide HCl (Reglan Injection -) 10 mg IVPUSH Q8H PRN PRN Reason: NAUSEA AND/OR VOMITING Morphine Sulfate (Morphine Sulfate) 4 mg IVPUSH Q4H PRN PRN Reason: PAIN LEVEL 6-10 Nadolol (Corgard -) 20 mg PO DAILY [facility] Last Admin: 05/13/18 09:58 Dose: 20 mg Pantoprazole Sodium (Protonix Iv) 40 mg IVPUSH BID [facility] Last Admin: 05/13/18 09:59 Dose: 40 mg Sodium Chloride ([place] Nasal [place] -) 2 spray NS BID [facility] Last Admin: 05/13/18 09:59 Dose: 2 spray Valacyclovir HCl (Valtrex -) 1,000 mg PO BID [facility] Stop: 05/17/18 22:00 Last Admin: 05/13/18 10:00 Dose: 1,000 mg - Objective Vital Signs: Vital Signs Temperature 98.4 F 05/13/18 06:00 Pulse Rate 90 05/13/18 06:00 Respiratory Rate 20 05/13/18 06:00 Blood Pressure 141/69 05/13/18 06:00 O2 Sat by Pulse Oximetry (%) 95 05/12/18 20:27 Constitutional: Yes: No Distress, Calm Cardiovascular: Yes: Regular Rate and Rhythm Respiratory: Yes: Regular, CTA Bilaterally Gastrointestinal: Yes: Normal Bowel Sounds, Soft Musculoskeletal: Yes: WNL Extremities: Yes: WNL Neurological: Yes: Alert, Oriented Psychiatric: Yes: Alert, Oriented Labs: CBC, BMP 05/13/18 06:00 05/13/18 06:00 INR, PTT INR 1.19 (0.83-1.09) H 05/09/18 05:15 Fibrinogen 386.0 mg/dL (238-498) 05/03/18 05:15 Assessment/Plan Acute GI bleed suspected Variceal in nature ETOH abuse Seizures HTN Anemia Suspected Septic Shock: source unclear Coagulopathy fevers plan stable off of abx incentive charu rest as per the team will need gi follow up
--- NOTE | 2018-05-13 18:47 | PN ---
Progress Note, Physician History of Present Illness: doing well...talking - Current Medication List Current Medications: Active Medications Acetaminophen (Ofirmev Injection -) 1,000 mg IVPB Q6H PRN PRN Reason: PAIN OR FEVER Albuterol Sulfate (Ventolin 0.083% Nebulizer Soln -) 1 amp NEB Q4H PRN PRN Reason: SHORT OF BREATH/WHEEZING Albuterol Sulfate (Ventolin 0.083% Nebulizer Soln -) 1 amp NEB RQID [facility] Last Admin: 05/13/18 16:20 Dose: 1 amp Artificial Tears (Artificial Tears) 1 drop OU BID [facility] Last Admin: 05/13/18 10:00 Dose: 1 drop Docusate Sodium (Colace -) 100 mg PO TID [facility] Last Admin: 05/13/18 14:51 Dose: 100 mg Lactobacillus Acidophilus (Bacid -) 1 tab PO DAILY [facility] Last Admin: 05/13/18 09:58 Dose: 1 tab Metoclopramide HCl (Reglan Injection -) 10 mg IVPUSH Q8H PRN PRN Reason: NAUSEA AND/OR VOMITING Morphine Sulfate (Morphine Sulfate) 4 mg IVPUSH Q4H PRN PRN Reason: PAIN LEVEL 6-10 Nadolol (Corgard -) 20 mg PO DAILY [facility] Last Admin: 05/13/18 09:58 Dose: 20 mg Pantoprazole Sodium (Protonix Iv) 40 mg IVPUSH BID [facility] Last Admin: 05/13/18 09:59 Dose: 40 mg Sodium Chloride ([place] Nasal [place] -) 2 spray NS BID [facility] Last Admin: 05/13/18 09:59 Dose: 2 spray Valacyclovir HCl (Valtrex -) 1,000 mg PO BID [facility] Stop: 05/17/18 22:00 Last Admin: 05/13/18 10:00 Dose: 1,000 mg - Objective Vital Signs: Vital Signs Temperature 98.4 F 05/13/18 16:30 Pulse Rate 85 05/13/18 16:30 Respiratory Rate 20 05/13/18 16:30 Blood Pressure 122/66 05/13/18 16:30 O2 Sat by Pulse Oximetry (%) 95 05/12/18 20:27 Constitutional: Yes: No Distress HENT: Yes: Atraumatic Neck: Yes: Supple Cardiovascular: Yes: Regular Rate and Rhythm Respiratory: Yes: CTA Bilaterally Gastrointestinal: Yes: Normal Bowel Sounds Extremities: Yes: WNL Edema: No Peripheral Pulses WNL: Yes Neurological: Yes: Alert, Oriented Labs: CBC, BMP 05/13/18 06:00 05/13/18 06:00 INR, PTT INR 1.19 (0.83-1.09) H 05/09/18 05:15 Fibrinogen 386.0 mg/dL (238-498) 05/03/18 05:15 Problem List - Problems (1) Hematemesis Assessment/Plan: resolved Code(s): K92.0 - HEMATEMESIS Qualifiers: Nausea presence: unspecified Qualified Code(s): K92.0 - Hematemesis (2) GI bleed Assessment/Plan: on prophylaxis Code(s): K92.2 - GASTROINTESTINAL HEMORRHAGE, UNSPECIFIED Qualifiers: GI bleed type/associated pathology: gastrointestinal hemorrhage with hematemesis Qualified Code(s): K92.0 - Hematemesis (3) Alcohol use disorder Assessment/Plan: stable Code(s): [id number] - (4) Sepsis Assessment/Plan: completed abx Code(s): A41.9 - SEPSIS, UNSPECIFIED ORGANISM (5) Septic shock Code(s): A41.9 - SEPSIS, UNSPECIFIED ORGANISM; R65.21 - SEVERE SEPSIS WITH SEPTIC SHOCK
[2018-05-14] MEDS: DOCUSATE SODIUM 100 MG CAPSULE (FP) PO SCH ×3 (06:57→21:07)
[2018-05-14] MEDS: ALBUTEROL SO4 0.083% IH SOL 2.5 MG/3 ML VIAL.NEB. NEB SCH ×4 (07:48→20:15)
[2018-05-14] MEDS ORDERED: PT OWN MED DRAWER 7, Y5N ONE ×3 (09:22→21:17)
[2018-05-14] MEDS: LACTOBACILLUS ACIDOPHILUS 1 TABLET PO SCH (09:27)
[2018-05-14] MEDS: PANTOPRAZOLE SODIUM 40 MG VIAL IVPUSH SCH ×2 (09:27→21:08)
[2018-05-14] MEDS: NADOLOL 20 MG TABLET (FP) PO SCH (09:27)
[2018-05-14] MEDS: MULTIVIT-MINERALS ORAL LIQUID PO SCH (09:28)
[2018-05-14] MEDS: ARTIFICIAL TEARS (POLYVINYL ALCOHOL) OPTH DROPS OU SCH ×2 (09:29→21:07)
[2018-05-14] MEDS: SODIUM CHLORIDE NASAL SPRAY 44 ML BOTTLE NS SCH ×2 (09:29→21:07)
[2018-05-14] MEDS: valACYclovir HCL 500 MG TABLET (FP) PO SCH ×2 (09:30→21:10)
--- NOTE | 2018-05-14 12:48 | PN ---
Progress Note, Physician History of Present Illness: doing much better no issues - Current Medication List Current Medications: Active Medications Acetaminophen (Ofirmev Injection -) 1,000 mg IVPB Q6H PRN PRN Reason: PAIN OR FEVER Albuterol Sulfate (Ventolin 0.083% Nebulizer Soln -) 1 amp NEB Q4H PRN PRN Reason: SHORT OF BREATH/WHEEZING Albuterol Sulfate (Ventolin 0.083% Nebulizer Soln -) 1 amp NEB RQID [facility] Last Admin: 05/14/18 11:37 Dose: 1 amp Artificial Tears (Artificial Tears) 1 drop OU BID [facility] Last Admin: 05/14/18 09:29 Dose: 1 drop Docusate Sodium (Colace -) 100 mg PO TID [facility] Last Admin: 05/14/18 06:57 Dose: 100 mg Lactobacillus Acidophilus (Bacid -) 1 tab PO DAILY [facility] Last Admin: 05/14/18 09:27 Dose: 1 tab Metoclopramide HCl (Reglan Injection -) 10 mg IVPUSH Q8H PRN PRN Reason: NAUSEA AND/OR VOMITING Morphine Sulfate (Morphine Sulfate) 4 mg IVPUSH Q4H PRN PRN Reason: PAIN LEVEL 6-10 Nadolol (Corgard -) 20 mg PO DAILY [facility] Last Admin: 05/14/18 09:27 Dose: 20 mg Pantoprazole Sodium (Protonix Iv) 40 mg IVPUSH BID [facility] Last Admin: 05/14/18 09:27 Dose: 40 mg Sodium Chloride ([place] Nasal [place] -) 2 spray NS BID [facility] Last Admin: 05/14/18 09:29 Dose: 2 spray Valacyclovir HCl (Valtrex -) 1,000 mg PO BID [facility] Stop: 05/17/18 22:00 Last Admin: 05/14/18 09:30 Dose: 1,000 mg - Objective Vital Signs: Vital Signs Temperature 98.2 F 05/14/18 10:00 Pulse Rate 86 05/14/18 10:00 Respiratory Rate 18 05/14/18 10:00 Blood Pressure 116/70 05/14/18 10:00 O2 Sat by Pulse Oximetry (%) 95 05/14/18 09:00 Constitutional: Yes: No Distress, Calm Cardiovascular: Yes: Regular Rate and Rhythm Respiratory: Yes: Regular, CTA Bilaterally Gastrointestinal: Yes: Normal Bowel Sounds, Soft Musculoskeletal: Yes: WNL Extremities: Yes: WNL Neurological: Yes: Alert, Oriented Psychiatric: Yes: Alert, Oriented Labs: CBC, BMP 05/13/18 06:00 05/13/18 06:00 INR, PTT INR 1.19 (0.83-1.09) H 05/09/18 05:15 Fibrinogen 386.0 mg/dL (238-498) 05/03/18 05:15 Assessment/Plan Acute GI bleed suspected Variceal in nature ETOH abuse Seizures HTN Anemia Suspected Septic Shock: source unclear Coagulopathy fevers plan stable off of abx incentive charu rest as per the team will need gi follow up
--- NOTE | 2018-05-14 12:51 | PN ---
Progress Note, Physician History of Present Illness: Eating lunch, afebrile, no complaints. - Current Medication List Current Medications: Active Medications Acetaminophen (Ofirmev Injection -) 1,000 mg IVPB Q6H PRN PRN Reason: PAIN OR FEVER Albuterol Sulfate (Ventolin 0.083% Nebulizer Soln -) 1 amp NEB Q4H PRN PRN Reason: SHORT OF BREATH/WHEEZING Albuterol Sulfate (Ventolin 0.083% Nebulizer Soln -) 1 amp NEB RQID [facility] Last Admin: 05/14/18 11:37 Dose: 1 amp Artificial Tears (Artificial Tears) 1 drop OU BID [facility] Last Admin: 05/14/18 09:29 Dose: 1 drop Docusate Sodium (Colace -) 100 mg PO TID [facility] Last Admin: 05/14/18 06:57 Dose: 100 mg Lactobacillus Acidophilus (Bacid -) 1 tab PO DAILY [facility] Last Admin: 05/14/18 09:27 Dose: 1 tab Metoclopramide HCl (Reglan Injection -) 10 mg IVPUSH Q8H PRN PRN Reason: NAUSEA AND/OR VOMITING Morphine Sulfate (Morphine Sulfate) 4 mg IVPUSH Q4H PRN PRN Reason: PAIN LEVEL 6-10 Nadolol (Corgard -) 20 mg PO DAILY [facility] Last Admin: 05/14/18 09:27 Dose: 20 mg Pantoprazole Sodium (Protonix Iv) 40 mg IVPUSH BID [facility] Last Admin: 05/14/18 09:27 Dose: 40 mg Sodium Chloride ([place] Nasal [place] -) 2 spray NS BID [facility] Last Admin: 05/14/18 09:29 Dose: 2 spray Valacyclovir HCl (Valtrex -) 1,000 mg PO BID [facility] Stop: 05/17/18 22:00 Last Admin: 05/14/18 09:30 Dose: 1,000 mg - Objective Vital Signs: Vital Signs Temperature 98.2 F 05/14/18 10:00 Pulse Rate 86 05/14/18 10:00 Respiratory Rate 18 05/14/18 10:00 Blood Pressure 116/70 05/14/18 10:00 O2 Sat by Pulse Oximetry (%) 95 05/14/18 09:00 Constitutional: Yes: No Distress, Calm Neck: Yes: Supple Cardiovascular: Yes: Regular Rate and Rhythm Respiratory: Yes: Regular, CTA Bilaterally Gastrointestinal: Yes: Normal Bowel Sounds, Soft Edema: No Labs: CBC, BMP 05/13/18 06:00 05/13/18 06:00 INR, PTT INR 1.19 (0.83-1.09) H 05/09/18 05:15 Fibrinogen 386.0 mg/dL (238-498) 05/03/18 05:15 Problem List - Problems (1) GI bleed Code(s): K92.2 - GASTROINTESTINAL HEMORRHAGE, UNSPECIFIED Qualifiers: GI bleed type/associated pathology: gastrointestinal hemorrhage with hematemesis Qualified Code(s): K92.0 - Hematemesis (2) Septic shock Code(s): A41.9 - SEPSIS, UNSPECIFIED ORGANISM; R65.21 - SEVERE SEPSIS WITH SEPTIC SHOCK (3) Erosive esophagitis Code(s): K22.10 - ULCER OF ESOPHAGUS WITHOUT BLEEDING (4) Hematemesis Code(s): K92.0 - HEMATEMESIS Qualifiers: Nausea presence: unspecified Qualified Code(s): K92.0 - Hematemesis (5) Seizure Code(s): R56.9 - UNSPECIFIED CONVULSIONS (6) Thrombocytopenia Code(s): D69.6 - THROMBOCYTOPENIA, UNSPECIFIED (7) Alcohol abuse Code(s): F10.10 - ALCOHOL ABUSE, UNCOMPLICATED (8) Jessica-Gimenez tear Code(s): K22.6 - GASTRO-ESOPHAGEAL LACERATION-HEMORRHAGE SYNDROME (9) UGIB (upper gastrointestinal bleed) Code(s): K92.2 - GASTROINTESTINAL HEMORRHAGE, UNSPECIFIED (10) Hyperlipidemia Code(s): E78.5 - HYPERLIPIDEMIA, UNSPECIFIED Qualifiers: Hyperlipidemia type: pure hypercholesterolemia Qualified Code(s): E78.00 - Pure hypercholesterolemia, unspecified; E78.0 - Pure hypercholesterolemia (11) Acute respiratory failure Code(s): J96.00 - ACUTE RESPIRATORY FAILURE, UNSP W HYPOXIA OR HYPERCAPNIA Qualifiers: Respiratory failure complication: hypoxia Qualified Code(s): J96.01 - Acute respiratory failure with hypoxia Assessment/Plan 05/02/2018 Echo: Normal LV and RV size and fxn, LVEF 50%, mild MR, TR, AR 1. Post hypercapneic hypoxic respiratory failure with non-cardiogenic pulmonary edema/ARDS resolving 2. Aspiration pneumonia with resolved septic shock/hypotension resolved 3. Acute upper gastrointestinal bleed with history of erosive esophagitis and varices 4. History of ETOH/alcohol abuse 5. Seizure disorder 6. Thrombocytopenia, resolved/anemia PLAN: 1. Completed abx course, observe off abx 2. Continue Nadolol 20 qd (variceal prophylaxis/portal hypertension) as hemodynamics tolerate 3. Monitor CBC (Hg) and transfuse as needed. 4. EGD deferred as per GI service, Protonix 5. PT as tolerated, d/c planning
[2018-05-14 15:14] VITALS: BMI 25.7
--- NOTE | 2018-05-14 18:51 | PN ---
Progress Note, Physician History of Present Illness: doing well...talking - Current Medication List Current Medications: Active Medications Acetaminophen (Ofirmev Injection -) 1,000 mg IVPB Q6H PRN PRN Reason: PAIN OR FEVER Albuterol Sulfate (Ventolin 0.083% Nebulizer Soln -) 1 amp NEB Q4H PRN PRN Reason: SHORT OF BREATH/WHEEZING Albuterol Sulfate (Ventolin 0.083% Nebulizer Soln -) 1 amp NEB RQID [facility] Last Admin: 05/14/18 16:19 Dose: 1 amp Artificial Tears (Artificial Tears) 1 drop OU BID [facility] Last Admin: 05/14/18 09:29 Dose: 1 drop Docusate Sodium (Colace -) 100 mg PO TID [facility] Last Admin: 05/14/18 14:09 Dose: 100 mg Lactobacillus Acidophilus (Bacid -) 1 tab PO DAILY [facility] Last Admin: 05/14/18 09:27 Dose: 1 tab Metoclopramide HCl (Reglan Injection -) 10 mg IVPUSH Q8H PRN PRN Reason: NAUSEA AND/OR VOMITING Morphine Sulfate (Morphine Sulfate) 4 mg IVPUSH Q4H PRN PRN Reason: PAIN LEVEL 6-10 Nadolol (Corgard -) 20 mg PO DAILY [facility] Last Admin: 05/14/18 09:27 Dose: 20 mg Pantoprazole Sodium (Protonix Iv) 40 mg IVPUSH BID [facility] Last Admin: 05/14/18 09:27 Dose: 40 mg Sodium Chloride ([place] Nasal [place] -) 2 spray NS BID [facility] Last Admin: 05/14/18 09:29 Dose: 2 spray Sodium Chloride (Sodium Chloride Tablet -) 1 gm PO BID [facility] Valacyclovir HCl (Valtrex -) 1,000 mg PO BID [facility] Stop: 05/17/18 22:00 Last Admin: 05/14/18 09:30 Dose: 1,000 mg - Objective Vital Signs: Vital Signs Temperature 98.9 F 05/14/18 16:30 Pulse Rate 77 05/14/18 16:30 Respiratory Rate 20 05/14/18 16:30 Blood Pressure 112/62 05/14/18 16:30 O2 Sat by Pulse Oximetry (%) 95 05/14/18 09:00 Constitutional: Yes: No Distress HENT: Yes: Atraumatic Neck: Yes: Supple Cardiovascular: Yes: Regular Rate and Rhythm Respiratory: Yes: CTA Bilaterally Gastrointestinal: Yes: Normal Bowel Sounds Extremities: Yes: WNL Edema: No Peripheral Pulses WNL: Yes Neurological: Yes: Alert, Oriented Labs: CBC, BMP 05/13/18 06:00 05/13/18 06:00 INR, PTT INR 1.19 (0.83-1.09) H 05/09/18 05:15 Fibrinogen 386.0 mg/dL (238-498) 05/03/18 05:15 Problem List - Problems (1) Hematemesis Assessment/Plan: resolved Code(s): K92.0 - HEMATEMESIS Qualifiers: Nausea presence: unspecified Qualified Code(s): K92.0 - Hematemesis (2) GI bleed Assessment/Plan: on prophylaxis Code(s): K92.2 - GASTROINTESTINAL HEMORRHAGE, UNSPECIFIED Qualifiers: GI bleed type/associated pathology: gastrointestinal hemorrhage with hematemesis Qualified Code(s): K92.0 - Hematemesis (3) Alcohol use disorder Assessment/Plan: stable Code(s): IOP1957 - (4) Sepsis Assessment/Plan: completed abx Code(s): A41.9 - SEPSIS, UNSPECIFIED ORGANISM (5) Septic shock Code(s): A41.9 - SEPSIS, UNSPECIFIED ORGANISM; R65.21 - SEVERE SEPSIS WITH SEPTIC SHOCK
[2018-05-14] MEDS: SODIUM CHLORIDE 1 GM TABLET PO SCH (21:53)
[2018-05-15] MEDS: DOCUSATE SODIUM 100 MG CAPSULE (FP) PO SCH ×3 (05:27→21:23)
[2018-05-15 06:38] LABS: ALBUMIN 2.8 g/dl (3.4-5.0); ALK PHOS 146 U/L (45-117); ANION GAP 7 MMOL/L (8-16); BLOOD UREA NITROGEN 9 mg/dL (7-18); CHLORIDE 98 mmol/L (98-107); CO2 25 mmol/L (21-32); CREATININE 0.5 mg/dL (0.55-1.3); GLUCOSE,RANDOM 95 mg/dL (74-106); POTASSIUM 4.6 mmol/L (3.5-5.1); SGOT/AST 155 U/L (15-37); SGPT/ALT 211 U/L (13-61); SODIUM 130 mmol/L (136-145); TOT PROT 7.6 g/dl (6.4-8.2)
[2018-05-15] MEDS: ALBUTEROL SO4 0.083% IH SOL 2.5 MG/3 ML VIAL.NEB. NEB SCH ×4 (07:49→21:18)
[2018-05-15] MEDS ORDERED: PT OWN MED DRAWER 7, Y5N ONE ×2 (10:10→20:49)
[2018-05-15] MEDS: LACTOBACILLUS ACIDOPHILUS 1 TABLET PO SCH (10:13)
[2018-05-15] MEDS: PANTOPRAZOLE SODIUM 40 MG VIAL IVPUSH SCH ×2 (10:13→21:23)
[2018-05-15] MEDS: NADOLOL 20 MG TABLET (FP) PO SCH (10:13)
[2018-05-15] MEDS: ARTIFICIAL TEARS (POLYVINYL ALCOHOL) OPTH DROPS OU SCH ×2 (10:13→21:24)
[2018-05-15] MEDS: SODIUM CHLORIDE 1 GM TABLET PO SCH ×2 (10:14→21:23)
[2018-05-15] MEDS: SODIUM CHLORIDE NASAL SPRAY 44 ML BOTTLE NS SCH ×2 (10:14→21:23)
[2018-05-15] MEDS: valACYclovir HCL 500 MG TABLET (FP) PO SCH ×2 (10:14→21:23)
[2018-05-15] MEDS: MULTIVIT-MINERALS ORAL LIQUID PO SCH (10:14)
--- NOTE | 2018-05-15 10:40 | PN ---
Progress Note, Physician History of Present Illness: patient doing well no issues - Current Medication List Current Medications: Active Medications Acetaminophen (Ofirmev Injection -) 1,000 mg IVPB Q6H PRN PRN Reason: PAIN OR FEVER Albuterol Sulfate (Ventolin 0.083% Nebulizer Soln -) 1 amp NEB Q4H PRN PRN Reason: SHORT OF BREATH/WHEEZING Albuterol Sulfate (Ventolin 0.083% Nebulizer Soln -) 1 amp NEB RQID [facility] Last Admin: 05/15/18 07:49 Dose: 1 amp Artificial Tears (Artificial Tears) 1 drop OU BID [facility] Last Admin: 05/15/18 10:13 Dose: 1 drop Docusate Sodium (Colace -) 100 mg PO TID [facility] Last Admin: 05/15/18 05:27 Dose: 100 mg Lactobacillus Acidophilus (Bacid -) 1 tab PO DAILY [facility] Last Admin: 05/15/18 10:13 Dose: 1 tab Metoclopramide HCl (Reglan Injection -) 10 mg IVPUSH Q8H PRN PRN Reason: NAUSEA AND/OR VOMITING Morphine Sulfate (Morphine Sulfate) 4 mg IVPUSH Q4H PRN PRN Reason: PAIN LEVEL 6-10 Nadolol (Corgard -) 20 mg PO DAILY [facility] Last Admin: 05/15/18 10:13 Dose: 20 mg Pantoprazole Sodium (Protonix Iv) 40 mg IVPUSH BID [facility] Last Admin: 05/15/18 10:13 Dose: 40 mg Sodium Chloride ([place] Nasal [place] -) 2 spray NS BID [facility] Last Admin: 05/15/18 10:14 Dose: 2 spray Sodium Chloride (Sodium Chloride Tablet -) 1 gm PO BID [facility] Last Admin: 05/15/18 10:14 Dose: 1 gm Valacyclovir HCl (Valtrex -) 1,000 mg PO BID [facility] Stop: 05/17/18 22:00 Last Admin: 05/15/18 10:14 Dose: 1,000 mg - Objective Vital Signs: Vital Signs Temperature 98.7 F 05/15/18 06:00 Pulse Rate 90 05/15/18 06:00 Respiratory Rate 20 05/15/18 06:00 Blood Pressure 113/65 05/15/18 06:00 O2 Sat by Pulse Oximetry (%) 96 05/14/18 21:00 Constitutional: Yes: No Distress, Calm Cardiovascular: Yes: S1, S2 Respiratory: Yes: Regular, CTA Bilaterally Gastrointestinal: Yes: Normal Bowel Sounds, Soft Musculoskeletal: Yes: WNL Extremities: Yes: WNL Neurological: Yes: Alert, Oriented Psychiatric: Yes: Alert, Oriented Labs: CBC, BMP 05/13/18 06:00 05/15/18 05:30 INR, PTT INR 1.19 (0.83-1.09) H 05/09/18 05:15 Fibrinogen 386.0 mg/dL (238-498) 05/03/18 05:15 Assessment/Plan Acute GI bleed suspected Variceal in nature ETOH abuse Seizures HTN Anemia Suspected Septic Shock: source unclear Coagulopathy fevers plan continue current mgmt incentive charu rest as per the team patient stable
--- NOTE | 2018-05-15 16:52 | PN ---
Progress Note, Physician History of Present Illness: doing well...talking - Current Medication List Current Medications: Active Medications Acetaminophen (Ofirmev Injection -) 1,000 mg IVPB Q6H PRN PRN Reason: PAIN OR FEVER Albuterol Sulfate (Ventolin 0.083% Nebulizer Soln -) 1 amp NEB Q4H PRN PRN Reason: SHORT OF BREATH/WHEEZING Albuterol Sulfate (Ventolin 0.083% Nebulizer Soln -) 1 amp NEB RQID [facility] Last Admin: 05/15/18 16:03 Dose: 1 amp Artificial Tears (Artificial Tears) 1 drop OU BID [facility] Last Admin: 05/15/18 10:13 Dose: 1 drop Docusate Sodium (Colace -) 100 mg PO TID [facility] Last Admin: 05/15/18 13:56 Dose: 100 mg Lactobacillus Acidophilus (Bacid -) 1 tab PO DAILY [facility] Last Admin: 05/15/18 10:13 Dose: 1 tab Metoclopramide HCl (Reglan Injection -) 10 mg IVPUSH Q8H PRN PRN Reason: NAUSEA AND/OR VOMITING Nadolol (Corgard -) 20 mg PO DAILY [facility] Last Admin: 05/15/18 10:13 Dose: 20 mg Pantoprazole Sodium (Protonix Iv) 40 mg IVPUSH BID [facility] Last Admin: 05/15/18 10:13 Dose: 40 mg Sodium Chloride ([place] Nasal [place] -) 2 spray NS BID [facility] Last Admin: 05/15/18 10:14 Dose: 2 spray Sodium Chloride (Sodium Chloride Tablet -) 1 gm PO BID [facility] Last Admin: 05/15/18 10:14 Dose: 1 gm Valacyclovir HCl (Valtrex -) 1,000 mg PO BID [facility] Stop: 05/17/18 22:00 Last Admin: 05/15/18 10:14 Dose: 1,000 mg - Objective Vital Signs: Vital Signs Temperature 98.7 F 05/15/18 14:06 Pulse Rate 90 05/15/18 14:06 Respiratory Rate 18 05/15/18 14:06 Blood Pressure 126/64 05/15/18 14:06 O2 Sat by Pulse Oximetry (%) 99 05/15/18 09:00 Constitutional: Yes: No Distress HENT: Yes: Atraumatic Neck: Yes: Supple Cardiovascular: Yes: Regular Rate and Rhythm Respiratory: Yes: CTA Bilaterally Gastrointestinal: Yes: Normal Bowel Sounds Extremities: Yes: WNL Edema: No Peripheral Pulses WNL: Yes Neurological: Yes: Alert, Oriented Labs: CBC, BMP 05/13/18 06:00 05/15/18 05:30 INR, PTT INR 1.19 (0.83-1.09) H 05/09/18 05:15 Fibrinogen 386.0 mg/dL (238-498) 05/03/18 05:15 Problem List - Problems (1) Hematemesis Assessment/Plan: resolved Code(s): K92.0 - HEMATEMESIS Qualifiers: Nausea presence: unspecified Qualified Code(s): K92.0 - Hematemesis (2) GI bleed Assessment/Plan: on prophylaxis Code(s): K92.2 - GASTROINTESTINAL HEMORRHAGE, UNSPECIFIED Qualifiers: GI bleed type/associated pathology: gastrointestinal hemorrhage with hematemesis Qualified Code(s): K92.0 - Hematemesis (3) Alcohol use disorder Assessment/Plan: stable Code(s): [id number] - (4) Sepsis Assessment/Plan: completed abx Code(s): A41.9 - SEPSIS, UNSPECIFIED ORGANISM (5) Septic shock Code(s): A41.9 - SEPSIS, UNSPECIFIED ORGANISM; R65.21 - SEVERE SEPSIS WITH SEPTIC SHOCK (6) Hyponatremia Assessment/Plan: on salt pills fu tomorrow Code(s): E87.1 - HYPO-OSMOLALITY AND HYPONATREMIA
[2018-05-16] MEDS ORDERED: PT OWN MED DRAWER 7, Y5N ONE ×3 (05:28→22:05)
[2018-05-16] MEDS: DOCUSATE SODIUM 100 MG CAPSULE (FP) PO SCH ×3 (05:42→22:08)
[2018-05-16 07:41] LABS: ALK PHOS 163 U/L (45-117); ANION GAP 7 MMOL/L (8-16); BLOOD UREA NITROGEN 11 mg/dL (7-18); CALCIUM 8.2 mg/dL (8.5-10.1); CHLORIDE 98 mmol/L (98-107); CO2 25 mmol/L (21-32); CREATININE 0.5 mg/dL (0.55-1.3); GLUCOSE,RANDOM 113 mg/dL (74-106); POTASSIUM 4.5 mmol/L (3.5-5.1); SGOT/AST 128 U/L (15-37); SGPT/ALT 215 U/L (13-61); SODIUM 129 mmol/L (136-145); TOT PROT 8.3 g/dl (6.4-8.2)
[2018-05-16 07:59] LABS: ALBUMIN 3.1 g/dl (3.4-5.0)
[2018-05-16] MEDS: ALBUTEROL SO4 0.083% IH SOL 2.5 MG/3 ML VIAL.NEB. NEB SCH ×4 (08:52→20:30)
[2018-05-16] MEDS: LACTOBACILLUS ACIDOPHILUS 1 TABLET PO SCH (10:05)
[2018-05-16] MEDS: NADOLOL 20 MG TABLET (FP) PO SCH (10:05)
[2018-05-16] MEDS: ARTIFICIAL TEARS (POLYVINYL ALCOHOL) OPTH DROPS OU SCH ×2 (10:17→22:08)
[2018-05-16] MEDS: SODIUM CHLORIDE NASAL SPRAY 44 ML BOTTLE NS SCH ×2 (10:17→22:08)
[2018-05-16] MEDS: MULTIVIT-MINERALS ORAL LIQUID PO SCH (10:18)
[2018-05-16] MEDS: SODIUM CHLORIDE 1 GM TABLET PO SCH ×2 (10:22→22:08)
[2018-05-16] MEDS: valACYclovir HCL 500 MG TABLET (FP) PO SCH (10:22)
--- NOTE | 2018-05-16 11:45 | PN ---
Progress Note (short form) - Note Progress Note: Consult Progress Note: Hematology/Oncology Pt feels much better. ambulating with rolling walker. rare sob with exertion. eager to return home. eating/drinking/sleeping well. denies cough, vomiting, chest or abdominal pain. Vital Signs Period Temp Pulse Resp BP Sys/Boykin Pulse Ox Last 24 Hr 98.3 F-98.9 F 88-103 18-20 117-138/60-84 99 Last coags May 09 Last CMP: this morning with mild hyponatremia CXY PE: NAD no oral thrush, no thyromegaly, eomi, melvi, -scl ict CTAB, no MRG, RRR abd soft, nd/nt, +BS in all quadrants no LE edema no flapping tremor CBCD WBC 7.2 K/mm3 (4.0-10.0) 05/13/18 06:00 RBC 3.47 M/mm3 (4.00-5.60) L 05/13/18 06:00 Hgb 10.0 GM/dL (11.7-16.9) L 05/13/18 06:00 Hct 28.8 % (35.4-49) L 05/13/18 06:00 MCV 83.0 fl (80-96) 05/13/18 06:00 MCHC 34.8 g/dl (32.0-35.9) 05/13/18 06:00 RDW 18.8 % (11.9-15.9) H 05/13/18 06:00 Plt Count 279 K/MM3 (134-434) D 05/13/18 06:00 MPV 9.7 fl (7.5-11.1) 05/13/18 06:00 CMP Sodium 131 mmol/L (136-145) L 05/17/18 06:15 Potassium 4.7 mmol/L (3.5-5.1) 05/17/18 06:15 Chloride 98 mmol/L (98-107) 05/17/18 06:15 Carbon Dioxide 23 mmol/L (21-32) 05/17/18 06:15 Anion Gap 10 MMOL/L (8-16) 05/17/18 06:15 BUN 8 mg/dL (7-18) 05/17/18 06:15 Creatinine 0.4 mg/dL (0.55-1.3) L 05/17/18 06:15 Creat Clearance w eGFR > 60 (>60) 05/17/18 06:15 Calcium 8.3 mg/dL (8.5-10.1) L 05/17/18 06:15 Total Bilirubin 1.0 mg/dL (0.2-1) 05/17/18 06:15 AST 99 U/L (15-37) H 05/17/18 06:15 ALT 167 U/L (13-61) H 05/17/18 06:15 Alkaline Phosphatase 141 U/L (45-117) H 05/17/18 06:15 Total Protein 8.0 g/dl (6.4-8.2) 05/17/18 06:15 Albumin 2.8 g/dl (3.4-5.0) L 05/17/18 06:15 53 old man with hx of ETOH abuse treated for septic shock requiring intubation complicated by likely UGI. Discussed with pt need for outpatient f/u with pcp and importance of finding treatment of substance abuse, discussed with social work who provided him with resources in the community. Problem list: Acute Hypoxic Respiratory Failure s/p intubation/extubation Pneumonia likely Aspiration Septic Shock with leukpenia and thrombocytopenia GI Bleed, erosive esophagitis - was unable to have endoscopic procedure for further evaluation due to acute process Alcohol Abuse/Withdrawal with DT Volume Overload A/P: Septic shock now resolved, coags have improved. Pt has clinically improved. Anemia - w/u shows PATRICK and anemia of chronic disease, last h/h on was stable with no overt signs of acute bleeding Pt is stable for outpatient follow-up with hematology Thank you for the consultive opportunity.
[2018-05-16] MEDS: PANTOPRAZOLE SODIUM 40 MG VIAL IVPUSH SCH (13:45)
[2018-05-16] MEDS: PANTOPRAZOLE 40 MG TABLET (FP) PO SCH (16:06)
--- NOTE | 2018-05-16 17:16 | PN ---
Teaching Attending Note Name of Resident: Hugo Martinez ATTENDING PHYSICIAN STATEMENT I saw and evaluated the patient. I reviewed the resident's note and discussed the case with the resident. I agree with the resident's findings and plan as documented. SUBJECTIVE: Patient seen and examined Clinically improved Offers no complaints Last Vital Signs Temp Pulse Resp BP Pulse Ox 98.7 F 87 20 111/61 99 05/16/18 16:50 05/16/18 16:50 05/16/18 16:50 05/16/18 16:50 05/15/18 20:12 HEENT: YOUSIF, EOM Intact Oropharynx: No thrush, No mucositis Cor: RSR, systolic murmur Lungs: Clear to P&A Abd: Soft, Normal bowel sounds, liver 2FB Ext:No significant edema Skin: No rashes, Integument intact CBC, BMP 05/13/18 06:00 05/16/18 06:15 Current Medications Generic Name Dose Route Start Last Admin Trade Name Freq PRN Reason Stop Dose Admin Acetaminophen 1,000 mg 05/12/18 12:50 Ofirmev Injection - IVPB Q6H PRN PAIN OR FEVER Albuterol Sulfate 1 amp 05/12/18 12:50 Ventolin 0.083% Nebulizer Soln - NEB Q4H PRN SHORT OF BREATH/WHEEZING Albuterol Sulfate 1 amp 05/12/18 16:00 05/16/18 08:52 Ventolin 0.083% Nebulizer Soln - NEB 1 amp RQID [facility] Administration Artificial Tears 1 drop 05/12/18 22:00 05/16/18 10:17 Artificial Tears OU 1 drop BID [facility] Administration Docusate Sodium 100 mg 05/12/18 14:00 05/16/18 14:01 Colace - PO 100 mg TID [facility] Administration Lactobacillus Acidophilus 1 tab 05/13/18 10:00 05/16/18 10:05 Bacid - PO 1 tab DAILY [facility] Administration Metoclopramide HCl 10 mg 05/12/18 12:50 Reglan Injection - IVPUSH Q8H PRN NAUSEA AND/OR VOMITING Nadolol 20 mg 05/13/18 10:00 05/16/18 10:05 Corgard - PO 20 mg DAILY [facility] Administration Pantoprazole Sodium 40 mg 05/16/18 15:00 05/16/18 16:06 Protonix - PO 40 mg DAILY [facility] Administration Sodium Chloride 2 spray 05/12/18 22:00 05/16/18 10:17 [place] Nasal [place] - NS 2 spray BID [facility] Administration Sodium Chloride 1 gm 05/14/18 22:00 05/16/18 10:22 Sodium Chloride Tablet - PO 1 gm BID [facility] Administration Valacyclovir HCl 1,000 mg 05/12/18 22:00 05/16/18 10:22 Valtrex - PO 05/17/18 22:00 1,000 mg BID [facility] Administration Impression: Substance abuse -ETOH Septic shock Anemia Plan: outpatient follow up. OBJECTIVE: ASSESSMENT AND PLAN:
--- NOTE | 2018-05-16 17:26 | PN ---
Progress Note, Physician - Current Medication List Current Medications: Active Medications Acetaminophen (Ofirmev Injection -) 1,000 mg IVPB Q6H PRN PRN Reason: PAIN OR FEVER Albuterol Sulfate (Ventolin 0.083% Nebulizer Soln -) 1 amp NEB Q4H PRN PRN Reason: SHORT OF BREATH/WHEEZING Albuterol Sulfate (Ventolin 0.083% Nebulizer Soln -) 1 amp NEB RQID [facility] Last Admin: 05/16/18 08:52 Dose: 1 amp Artificial Tears (Artificial Tears) 1 drop OU BID [facility] Last Admin: 05/16/18 10:17 Dose: 1 drop Docusate Sodium (Colace -) 100 mg PO TID [facility] Last Admin: 05/16/18 14:01 Dose: 100 mg Lactobacillus Acidophilus (Bacid -) 1 tab PO DAILY [facility] Last Admin: 05/16/18 10:05 Dose: 1 tab Metoclopramide HCl (Reglan Injection -) 10 mg IVPUSH Q8H PRN PRN Reason: NAUSEA AND/OR VOMITING Nadolol (Corgard -) 20 mg PO DAILY [facility] Last Admin: 05/16/18 10:05 Dose: 20 mg Pantoprazole Sodium (Protonix -) 40 mg PO DAILY [facility] Last Admin: 05/16/18 16:06 Dose: 40 mg Sodium Chloride ([place] Nasal [place] -) 2 spray NS BID [facility] Last Admin: 05/16/18 10:17 Dose: 2 spray Sodium Chloride (Sodium Chloride Tablet -) 1 gm PO BID [facility] Last Admin: 05/16/18 10:22 Dose: 1 gm Valacyclovir HCl (Valtrex -) 1,000 mg PO BID [facility] Stop: 05/17/18 22:00 Last Admin: 05/16/18 10:22 Dose: 1,000 mg - Objective Vital Signs: Vital Signs Temperature 98.7 F 05/16/18 16:50 Pulse Rate 87 05/16/18 16:50 Respiratory Rate 20 05/16/18 16:50 Blood Pressure 111/61 05/16/18 16:50 O2 Sat by Pulse Oximetry (%) 99 05/15/18 20:12 Constitutional: Yes: No Distress HENT: Yes: Atraumatic Neck: Yes: Supple Cardiovascular: Yes: Regular Rate and Rhythm Respiratory: Yes: CTA Bilaterally Gastrointestinal: Yes: Normal Bowel Sounds Extremities: Yes: WNL Edema: No Peripheral Pulses WNL: Yes Neurological: Yes: Alert, Oriented Labs: CBC, BMP 05/13/18 06:00 05/16/18 06:15 INR, PTT INR 1.19 (0.83-1.09) H 05/09/18 05:15 Fibrinogen 386.0 mg/dL (238-498) 05/03/18 05:15 Problem List - Problems (1) Hematemesis Code(s): K92.0 - HEMATEMESIS Qualifiers: Nausea presence: unspecified Qualified Code(s): K92.0 - Hematemesis (2) GI bleed Code(s): K92.2 - GASTROINTESTINAL HEMORRHAGE, UNSPECIFIED Qualifiers: GI bleed type/associated pathology: gastrointestinal hemorrhage with hematemesis Qualified Code(s): K92.0 - Hematemesis (3) Alcohol use disorder Code(s): [id number] - (4) Sepsis Code(s): A41.9 - SEPSIS, UNSPECIFIED ORGANISM (5) Septic shock Code(s): A41.9 - SEPSIS, UNSPECIFIED ORGANISM; R65.21 - SEVERE SEPSIS WITH SEPTIC SHOCK (6) Hyponatremia Assessment/Plan: on salt pills renal consult Code(s): E87.1 - HYPO-OSMOLALITY AND HYPONATREMIA
--- NOTE | 2018-05-16 17:43 | PN ---
Progress Note, Physician History of Present Illness: patient doing well no issues - Current Medication List Current Medications: Active Medications Acetaminophen (Ofirmev Injection -) 1,000 mg IVPB Q6H PRN PRN Reason: PAIN OR FEVER Albuterol Sulfate (Ventolin 0.083% Nebulizer Soln -) 1 amp NEB Q4H PRN PRN Reason: SHORT OF BREATH/WHEEZING Albuterol Sulfate (Ventolin 0.083% Nebulizer Soln -) 1 amp NEB RQID [facility] Last Admin: 05/16/18 08:52 Dose: 1 amp Artificial Tears (Artificial Tears) 1 drop OU BID [facility] Last Admin: 05/16/18 10:17 Dose: 1 drop Docusate Sodium (Colace -) 100 mg PO TID [facility] Last Admin: 05/16/18 14:01 Dose: 100 mg Lactobacillus Acidophilus (Bacid -) 1 tab PO DAILY [facility] Last Admin: 05/16/18 10:05 Dose: 1 tab Nadolol (Corgard -) 20 mg PO DAILY [facility] Last Admin: 05/16/18 10:05 Dose: 20 mg Pantoprazole Sodium (Protonix -) 40 mg PO DAILY [facility] Last Admin: 05/16/18 16:06 Dose: 40 mg Sodium Chloride ([place] Nasal [place] -) 2 spray NS BID [facility] Last Admin: 05/16/18 10:17 Dose: 2 spray Sodium Chloride (Sodium Chloride Tablet -) 1 gm PO BID [facility] Last Admin: 05/16/18 10:22 Dose: 1 gm - Objective Vital Signs: Vital Signs Temperature 98.7 F 05/16/18 16:50 Pulse Rate 87 05/16/18 16:50 Respiratory Rate 20 05/16/18 16:50 Blood Pressure 111/61 05/16/18 16:50 O2 Sat by Pulse Oximetry (%) 99 05/15/18 20:12 Constitutional: Yes: No Distress, Calm Cardiovascular: Yes: Regular Rate and Rhythm Respiratory: Yes: Regular, CTA Bilaterally Gastrointestinal: Yes: Normal Bowel Sounds, Soft Musculoskeletal: Yes: WNL Extremities: Yes: WNL Neurological: Yes: Alert, Oriented Psychiatric: Yes: Alert, Oriented Labs: CBC, BMP 05/13/18 06:00 05/16/18 06:15 INR, PTT INR 1.19 (0.83-1.09) H 05/09/18 05:15 Fibrinogen 386.0 mg/dL (238-498) 05/03/18 05:15 Assessment/Plan Acute GI bleed suspected Variceal in nature ETOH abuse Seizures HTN Anemia Suspected Septic Shock: source unclear Coagulopathy fevers plan continue current mgmt incentive charu rest as per the team patient stable
[2018-05-17] MEDS: DOCUSATE SODIUM 100 MG CAPSULE (FP) PO SCH ×3 (05:43→22:10)
[2018-05-17] MEDS: ALBUTEROL SO4 0.083% IH SOL 2.5 MG/3 ML VIAL.NEB. NEB SCH ×2 (08:30→11:25)
[2018-05-17 08:55] LABS: ALBUMIN 2.8 g/dl (3.4-5.0); ALK PHOS 141 U/L (45-117); ANION GAP 10 MMOL/L (8-16); BLOOD UREA NITROGEN 8 mg/dL (7-18); CALCIUM 8.3 mg/dL (8.5-10.1); CHLORIDE 98 mmol/L (98-107); CO2 23 mmol/L (21-32); CREATININE 0.4 mg/dL (0.55-1.3); GLUCOSE,RANDOM 98 mg/dL (74-106); POTASSIUM 4.7 mmol/L (3.5-5.1); SGOT/AST 99 U/L (15-37); SGPT/ALT 167 U/L (13-61); SODIUM 131 mmol/L (136-145)
[2018-05-17] MEDS: NADOLOL 20 MG TABLET (FP) PO SCH (09:27)
[2018-05-17] MEDS: PANTOPRAZOLE 40 MG TABLET (FP) PO SCH (09:27)
[2018-05-17] MEDS: LACTOBACILLUS ACIDOPHILUS 1 TABLET PO SCH (09:27)
[2018-05-17] MEDS: ARTIFICIAL TEARS (POLYVINYL ALCOHOL) OPTH DROPS OU SCH ×2 (09:28→22:10)
[2018-05-17] MEDS: SODIUM CHLORIDE 1 GM TABLET PO SCH ×2 (09:29→22:09)
[2018-05-17] MEDS: MULTIVIT-MINERALS ORAL LIQUID PO SCH (09:29)
[2018-05-17] MEDS: SODIUM CHLORIDE NASAL SPRAY 44 ML BOTTLE NS SCH ×2 (09:29→22:09)
[2018-05-17] MEDS ORDERED: PANTOPRAZOLE 40 MG TABLET (FP) PO SCH (10:00)
[2018-05-17 11:32] LABS: URINE APPEARANCE CLOUDY; URINE BILIRUBIN NEGATIVE (<2.0 mg/dL); URINE COLOR DKYELLOW; URINE GLUCOSE (UA) NEGATIVE (NEGATIVE); URINE KETONE NEGATIVE (NEGATIVE); URINE LEUK ESTERASE 1+ (NEGATIVE); URINE NITRITE NEGATIVE (NEGATIVE); URINE PROTEIN 2+ (NEGATIVE); URINE UROBILINOGEN NEGATIVE mg/dL (0.2-1.0)
[2018-05-17 11:51] LABS: EPI CELLS FEW /HPF (FEW); URINE HYALINE CAST 3 /lpf; YEAST RARE
--- NOTE | 2018-05-17 12:41 | PN ---
Progress Note, Physician History of Present Illness: patient stable no new issues - Current Medication List Current Medications: Active Medications Acetaminophen (Ofirmev Injection -) 1,000 mg IVPB Q6H PRN PRN Reason: PAIN OR FEVER Albuterol Sulfate (Ventolin 0.083% Nebulizer Soln -) 1 amp NEB Q4H PRN PRN Reason: SHORT OF BREATH/WHEEZING Albuterol Sulfate (Ventolin 0.083% Nebulizer Soln -) 1 amp NEB RQID [facility] Last Admin: 05/17/18 08:30 Dose: 1 amp Artificial Tears (Artificial Tears) 1 drop OU BID [facility] Last Admin: 05/17/18 09:28 Dose: 1 drop Docusate Sodium (Colace -) 100 mg PO TID [facility] Last Admin: 05/17/18 05:43 Dose: 100 mg Lactobacillus Acidophilus (Bacid -) 1 tab PO DAILY [facility] Last Admin: 05/17/18 09:27 Dose: 1 tab Nadolol (Corgard -) 20 mg PO DAILY [facility] Last Admin: 05/17/18 09:27 Dose: 20 mg Pantoprazole Sodium (Protonix -) 40 mg PO DAILY [facility] Last Admin: 05/17/18 09:27 Dose: 40 mg Sodium Chloride ([place] Nasal [place] -) 2 spray NS BID [facility] Last Admin: 05/17/18 09:29 Dose: 2 spray Sodium Chloride (Sodium Chloride Tablet -) 1 gm PO BID [facility] Last Admin: 05/17/18 09:29 Dose: 1 gm - Objective Vital Signs: Vital Signs Temperature 98.4 F 05/17/18 06:36 Pulse Rate 89 05/17/18 06:36 Respiratory Rate 20 05/17/18 06:36 Blood Pressure 116/66 05/17/18 06:36 O2 Sat by Pulse Oximetry (%) 95 05/16/18 21:00 Constitutional: Yes: No Distress, Calm Cardiovascular: Yes: Regular Rate and Rhythm Respiratory: Yes: Regular, CTA Bilaterally Gastrointestinal: Yes: Normal Bowel Sounds, Soft Musculoskeletal: Yes: WNL Extremities: Yes: WNL Neurological: Yes: Alert, Oriented Psychiatric: Yes: Alert, Oriented Labs: CBC, BMP 05/13/18 06:00 05/17/18 06:15 INR, PTT INR 1.19 (0.83-1.09) H 05/09/18 05:15 Fibrinogen 386.0 mg/dL (238-498) 05/03/18 05:15 Assessment/Plan Acute GI bleed suspected Variceal in nature ETOH abuse Seizures HTN Anemia Suspected Septic Shock: source unclear Coagulopathy fevers plan continue current mgmt incentive charu rest as per the team patient stable
--- NOTE | 2018-05-17 12:54 | CONSULT ---
Consult Consult Specialty:: Nephrology Reason for Consultation:: hyponatremia - History of Present Illness Chief Complaint: initially presented with hematemesis History of Present Illness: Pt is a 53 year old male with pmhx of GI bleed, varicies, anemia and etoh abuse who was initially admitted with hematemesis. He has had a prolonged hospital stay. He was admitted to the ICU and was in resp failure and shock. He was eventually stabilized and transferred to [facility]. He was found to be hyponatremic and I was called to evaluate him. He says that he drinks several pitchers of water daily. He denies shortness of breath. He denies lower ext edema. He is awake and appears comfortable. He says that he has been drinking heavily for many years. He was unable to quantify. He denies dysuria or hematuria. Chart reviewed. - History Source History Provided By: Patient, Medical Record - Past Medical History [employer]: Yes: Seizure Cardio/Vascular: Yes: HTN Gastrointestinal: Yes: GI Bleed (upper GI bleed confirmed by EGD, shown to have erosive esophagitis) Infectious Disease: Yes: Other (h/o TB treated 2009 per [facility] notes) Psych: Yes: Addictions (alcohol abuse) - Alcohol/Substance Use Hx Alcohol Use: Yes - Smoking History Smoking history: Current every day smoker Have you smoked in the past 12 months: Yes Aproximately how many cigarettes per day: 20 Home Medications - Allergies Allergies/Adverse Reactions: Allergies Allergy/AdvReac Type Severity Reaction Status Date / Time No Known Allergies Allergy Verified 05/01/18 13:35 - Home Medications Home Medications: Ambulatory Orders Nadolol [Corgard -] 20 mg PO DAILY #30 tablet 05/15/18 Sodium Chloride Tablet - 1 gm PO BID #14 tablet 05/15/18 Family Disease History - Family Disease History Family History: Denies Review of Systems - Review of Systems Constitutional: reports: No Symptoms Eyes: reports: No Symptoms HENT: reports: No Symptoms Neck: reports: No Symptoms Cardiovascular: reports: No Symptoms Respiratory: reports: No Symptoms Gastrointestinal: reports: No Symptoms Genitourinary: reports: No Symptoms Musculoskeletal: reports: No Symptoms Integumentary: reports: No Symptoms Neurological: reports: Headache Endocrine: reports: No Symptoms Hematology/Lymphatic: reports: No Symptoms Psychiatric: reports: No Symptoms Physical Exam Vital Signs: Vital Signs Temperature 98.4 F 05/17/18 06:36 Pulse Rate 89 05/17/18 06:36 Respiratory Rate 20 05/17/18 06:36 Blood Pressure 116/66 05/17/18 06:36 O2 Sat by Pulse Oximetry (%) 95 05/16/18 21:00 Constitutional: Yes: Calm Eyes: Yes: Conjunctiva Clear HENT: Yes: Atraumatic Cardiovascular: Yes: S1, S2 Respiratory: Yes: CTA Bilaterally Gastrointestinal: Yes: Normal Bowel Sounds, Soft Renal/: Yes: WNL Musculoskeletal: Yes: WNL Edema: No Neurological: Yes: Oriented Psychiatric: Yes: Oriented Labs: CBC, BMP 05/13/18 06:00 05/17/18 06:15 Laboratory Tests 05/17/18 05/17/18 05/17/18 06:00 06:00 06:15 Sodium 131 L Serum Osmolality 271 L TSH 4.61 H D Cortisol AM Sample Pending Urine Osmolality Ur Random Sodium 05/17/18 10:45 Sodium Serum Osmolality TSH Cortisol AM Sample Urine Osmolality 376 Ur Random Sodium 19 L Imaging - Results Chest X-ray: Report Reviewed Problem List - Problems (1) GI bleed Code(s): K92.2 - GASTROINTESTINAL HEMORRHAGE, UNSPECIFIED Qualifiers: GI bleed type/associated pathology: gastrointestinal hemorrhage with hematemesis Qualified Code(s): K92.0 - Hematemesis (2) Hyponatremia Code(s): E87.1 - HYPO-OSMOLALITY AND HYPONATREMIA (3) Sepsis Code(s): A41.9 - SEPSIS, UNSPECIFIED ORGANISM (4) Septic shock Code(s): A41.9 - SEPSIS, UNSPECIFIED ORGANISM; R65.21 - SEVERE SEPSIS WITH SEPTIC SHOCK (5) Alcohol use disorder Code(s): [id number] - Assessment/Plan Current Medications Generic Name Dose Route Start Last Admin Trade Name Freq PRN Reason Stop Dose Admin Acetaminophen 1,000 mg 05/12/18 12:50 Ofirmev Injection - IVPB Q6H PRN PAIN OR FEVER Albuterol Sulfate 1 amp 05/12/18 16:00 05/17/18 08:30 Ventolin 0.083% Nebulizer Soln - NEB 1 amp RQID [facility] Administration Artificial Tears 1 drop 05/12/18 22:00 05/17/18 09:28 Artificial Tears OU 1 drop BID [facility] Administration Docusate Sodium 100 mg 05/12/18 14:00 05/17/18 05:43 Colace - PO 100 mg TID [facility] Administration Lactobacillus Acidophilus 1 tab 05/13/18 10:00 05/17/18 09:27 Bacid - PO 1 tab DAILY [facility] Administration Nadolol 20 mg 05/13/18 10:00 05/17/18 09:27 Corgard - PO 20 mg DAILY [facility] Administration Pantoprazole Sodium 40 mg 05/16/18 15:00 05/17/18 09:27 Protonix - PO 40 mg DAILY [facility] Administration Sodium Chloride 2 spray 05/12/18 22:00 05/17/18 09:29 [place] Nasal [place] - NS 2 spray BID [facility] Administration Sodium Chloride 1 gm 05/14/18 22:00 05/17/18 09:29 Sodium Chloride Tablet - PO 1 gm BID [facility] Administration chart reviewed labs reviewed meds reviewed Impression 1. hyponatremia 2. resp failure resolved 3. cam resolved 4. etoh abuse 5. GI bleed 6. anemia 7. shock reslved 8. PNA 9. thrombocytopenia 10. transaminitis Plan - ordered workup this morning - pt's sodium is improving - cont with salt tabs - restrict his free water intake to 1.2 liters - repeat labs in am - tsh is elevated and will need follow up - follow cortisol - cont to trend sodium levels - urine sodium is low which speaks against an siadh picture - pts volume status appears euvlemic to slightly hypovolemic - encourage PO intake - follow ua - will follow pt Dr Jefferson
--- NOTE | 2018-05-17 16:39 | PN ---
Progress Note, Physician - Current Medication List Current Medications: Active Medications Acetaminophen (Ofirmev Injection -) 1,000 mg IVPB Q6H PRN PRN Reason: PAIN OR FEVER Artificial Tears (Artificial Tears) 1 drop OU BID [facility] Last Admin: 05/17/18 09:28 Dose: 1 drop Docusate Sodium (Colace -) 100 mg PO TID [facility] Last Admin: 05/17/18 16:00 Dose: 100 mg Lactobacillus Acidophilus (Bacid -) 1 tab PO DAILY [facility] Last Admin: 05/17/18 09:27 Dose: 1 tab Nadolol (Corgard -) 20 mg PO DAILY [facility] Last Admin: 05/17/18 09:27 Dose: 20 mg Pantoprazole Sodium (Protonix -) 40 mg PO DAILY [facility] Last Admin: 05/17/18 09:27 Dose: 40 mg Sodium Chloride ([place] Nasal [place] -) 2 spray NS BID [facility] Last Admin: 05/17/18 09:29 Dose: 2 spray Sodium Chloride (Sodium Chloride Tablet -) 1 gm PO BID [facility] Last Admin: 05/17/18 09:29 Dose: 1 gm - Objective Vital Signs: Vital Signs Temperature 98.9 F 05/17/18 14:03 Pulse Rate 84 05/17/18 14:03 Respiratory Rate 20 05/17/18 14:03 Blood Pressure 114/66 05/17/18 14:03 O2 Sat by Pulse Oximetry (%) 95 05/16/18 21:00 Constitutional: Yes: No Distress HENT: Yes: Atraumatic Neck: Yes: Supple Cardiovascular: Yes: Regular Rate and Rhythm Respiratory: Yes: CTA Bilaterally Gastrointestinal: Yes: Normal Bowel Sounds Extremities: Yes: WNL Edema: No Neurological: Yes: Alert, Oriented Labs: CBC, BMP 05/13/18 06:00 05/17/18 06:15 INR, PTT INR 1.19 (0.83-1.09) H 05/09/18 05:15 Fibrinogen 386.0 mg/dL (238-498) 05/03/18 05:15 Problem List - Problems (1) Hematemesis Code(s): K92.0 - HEMATEMESIS Qualifiers: Nausea presence: unspecified Qualified Code(s): K92.0 - Hematemesis (2) GI bleed Code(s): K92.2 - GASTROINTESTINAL HEMORRHAGE, UNSPECIFIED Qualifiers: GI bleed type/associated pathology: gastrointestinal hemorrhage with hematemesis Qualified Code(s): K92.0 - Hematemesis (3) Alcohol use disorder Code(s): [id number] - (4) Sepsis Code(s): A41.9 - SEPSIS, UNSPECIFIED ORGANISM (5) Septic shock Code(s): A41.9 - SEPSIS, UNSPECIFIED ORGANISM; R65.21 - SEVERE SEPSIS WITH SEPTIC SHOCK (6) Hyponatremia Assessment/Plan: on salt pills renal consult Code(s): E87.1 - HYPO-OSMOLALITY AND HYPONATREMIA
[2018-05-18] MEDS: DOCUSATE SODIUM 100 MG CAPSULE (FP) PO SCH ×2 (05:44→15:58)
[2018-05-18 07:59] LABS: ANION GAP 6 MMOL/L (8-16); BLOOD UREA NITROGEN 8 mg/dL (7-18); CALCIUM 8.1 mg/dL (8.5-10.1); CHLORIDE 101 mmol/L (98-107); CO2 27 mmol/L (21-32); CREATININE 0.5 mg/dL (0.55-1.3); GLUCOSE,RANDOM 100 mg/dL (74-106); SODIUM 134 mmol/L (136-145)
[2018-05-18] MEDS: NADOLOL 20 MG TABLET (FP) PO SCH (11:46)
[2018-05-18] MEDS: PANTOPRAZOLE 40 MG TABLET (FP) PO SCH (11:46)
[2018-05-18] MEDS: SODIUM CHLORIDE 1 GM TABLET PO SCH (11:46)
[2018-05-18] MEDS: MULTIVIT-MINERALS ORAL LIQUID PO SCH (11:47)
[2018-05-18] MEDS: SODIUM CHLORIDE NASAL SPRAY 44 ML BOTTLE NS SCH (11:47)
[2018-05-18] MEDS: ARTIFICIAL TEARS (POLYVINYL ALCOHOL) OPTH DROPS OU SCH (11:55)
[2018-05-18] MEDS: LACTOBACILLUS ACIDOPHILUS 1 TABLET PO SCH (12:03)
--- NOTE | 2018-05-18 13:26 | PN ---
Progress Note, Physician History of Present Illness: stable no new issues - Current Medication List Current Medications: Active Medications Acetaminophen (Ofirmev Injection -) 1,000 mg IVPB Q6H PRN PRN Reason: PAIN OR FEVER Artificial Tears (Artificial Tears) 1 drop OU BID [facility] Last Admin: 05/18/18 11:55 Dose: 1 drop Docusate Sodium (Colace -) 100 mg PO TID [facility] Last Admin: 05/18/18 05:44 Dose: 100 mg Lactobacillus Acidophilus (Bacid -) 1 tab PO DAILY [facility] Last Admin: 05/18/18 12:03 Dose: 1 tab Nadolol (Corgard -) 20 mg PO DAILY [facility] Last Admin: 05/18/18 11:46 Dose: 20 mg Pantoprazole Sodium (Protonix -) 40 mg PO DAILY [facility] Last Admin: 05/18/18 11:46 Dose: 40 mg Sodium Chloride ([place] Nasal [place] -) 2 spray NS BID [facility] Last Admin: 05/18/18 11:47 Dose: 2 spray Sodium Chloride (Sodium Chloride Tablet -) 1 gm PO BID [facility] Last Admin: 05/18/18 11:46 Dose: 1 gm - Objective Vital Signs: Vital Signs Temperature 98 F 05/18/18 06:40 Pulse Rate 86 05/18/18 06:40 Respiratory Rate 20 05/18/18 06:40 Blood Pressure 117/60 05/18/18 06:40 O2 Sat by Pulse Oximetry (%) 96 05/17/18 21:40 Constitutional: Yes: No Distress, Calm Cardiovascular: Yes: Regular Rate and Rhythm Respiratory: Yes: Regular, CTA Bilaterally Gastrointestinal: Yes: Normal Bowel Sounds, Soft Musculoskeletal: Yes: WNL Extremities: Yes: WNL Neurological: Yes: Alert, Oriented Psychiatric: Yes: Alert, Oriented Labs: CBC, BMP 05/13/18 06:00 05/18/18 06:30 INR, PTT INR 1.19 (0.83-1.09) H 05/09/18 05:15 Fibrinogen 386.0 mg/dL (238-498) 05/03/18 05:15 Assessment/Plan Acute GI bleed suspected Variceal in nature ETOH abuse Seizures HTN Anemia Suspected Septic Shock: source unclear Coagulopathy fevers plan continue current mgmt incentive charu rest as per the team patient stable
--- NOTE | 2018-05-18 15:14 | PN ---
Progress Note, Physician History of Present Illness: Pt seen and examined at bedside. He is awake and alert. He feels that his appetite is improving. - Current Medication List Current Medications: Active Medications Acetaminophen (Ofirmev Injection -) 1,000 mg IVPB Q6H PRN PRN Reason: PAIN OR FEVER Artificial Tears (Artificial Tears) 1 drop OU BID [facility] Last Admin: 05/18/18 11:55 Dose: 1 drop Docusate Sodium (Colace -) 100 mg PO TID [facility] Last Admin: 05/18/18 05:44 Dose: 100 mg Lactobacillus Acidophilus (Bacid -) 1 tab PO DAILY [facility] Last Admin: 05/18/18 12:03 Dose: 1 tab Nadolol (Corgard -) 20 mg PO DAILY [facility] Last Admin: 05/18/18 11:46 Dose: 20 mg Pantoprazole Sodium (Protonix -) 40 mg PO DAILY [facility] Last Admin: 05/18/18 11:46 Dose: 40 mg Sodium Chloride ([place] Nasal [place] -) 2 spray NS BID [facility] Last Admin: 05/18/18 11:47 Dose: 2 spray Sodium Chloride (Sodium Chloride Tablet -) 1 gm PO BID [facility] Last Admin: 05/18/18 11:46 Dose: 1 gm - Objective Vital Signs: Vital Signs Temperature 98.0 F 05/18/18 15:05 Pulse Rate 90 05/18/18 15:05 Respiratory Rate 18 05/18/18 15:05 Blood Pressure 127/73 05/18/18 15:05 O2 Sat by Pulse Oximetry (%) 96 05/17/18 21:40 Constitutional: Yes: Calm Eyes: Yes: Conjunctiva Clear HENT: Yes: Atraumatic Neck: Yes: Supple Cardiovascular: Yes: S1, S2 Respiratory: Yes: CTA Bilaterally Gastrointestinal: Yes: Normal Bowel Sounds, Soft Genitourinary: Yes: WNL Musculoskeletal: Yes: WNL Edema: No Neurological: Yes: Oriented Psychiatric: Yes: Oriented Labs: CBC, BMP 05/13/18 06:00 05/18/18 06:30 INR, PTT INR 1.19 (0.83-1.09) H 05/09/18 05:15 Fibrinogen 386.0 mg/dL (238-498) 05/03/18 05:15 Problem List - Problems (1) GI bleed Code(s): K92.2 - GASTROINTESTINAL HEMORRHAGE, UNSPECIFIED Qualifiers: GI bleed type/associated pathology: gastrointestinal hemorrhage with hematemesis Qualified Code(s): K92.0 - Hematemesis (2) Hyponatremia Code(s): E87.1 - HYPO-OSMOLALITY AND HYPONATREMIA (3) Sepsis Code(s): A41.9 - SEPSIS, UNSPECIFIED ORGANISM (4) Septic shock Code(s): A41.9 - SEPSIS, UNSPECIFIED ORGANISM; R65.21 - SEVERE SEPSIS WITH SEPTIC SHOCK (5) Alcohol use disorder Code(s): [id number] - Assessment/Plan Current Medications Generic Name Dose Route Start Last Admin Trade Name Freq PRN Reason Stop Dose Admin Acetaminophen 1,000 mg 05/12/18 12:50 Ofirmev Injection - IVPB Q6H PRN PAIN OR FEVER Artificial Tears 1 drop 05/12/18 22:00 05/18/18 11:55 Artificial Tears OU 1 drop BID [facility] Administration Docusate Sodium 100 mg 05/12/18 14:00 05/18/18 05:44 Colace - PO 100 mg TID [facility] Administration Lactobacillus Acidophilus 1 tab 05/13/18 10:00 05/18/18 12:03 Bacid - PO 1 tab DAILY [facility] Administration Nadolol 20 mg 05/13/18 10:00 05/18/18 11:46 Corgard - PO 20 mg DAILY [facility] Administration Pantoprazole Sodium 40 mg 05/16/18 15:00 05/18/18 11:46 Protonix - PO 40 mg DAILY [facility] Administration Sodium Chloride 2 spray 05/12/18 22:00 05/18/18 11:47 [place] Nasal [place] - NS 2 spray BID [facility] Administration Sodium Chloride 1 gm 05/14/18 22:00 05/18/18 11:46 Sodium Chloride Tablet - PO 1 gm BID [facility] Administration Impression 1. hyponatremia 2. resp failure resolved 3. cam resolved 4. etoh abuse 5. GI bleed 6. anemia 7. shock reslved 8. PNA 9. thrombocytopenia 10. transaminitis Plan - sodium is improving - encourage PO intake - avoid alcohol - monitor lytes - volume status is improved - will follow Dr Jefferson
--- NOTE | 2018-05-18 15:57 | DS ---
Physical Examination Vital Signs: Vital Signs Temperature 98.0 F 05/18/18 15:05 Pulse Rate 90 05/18/18 15:05 Respiratory Rate 18 05/18/18 15:05 Blood Pressure 127/73 05/18/18 15:05 O2 Sat by Pulse Oximetry (%) 96 05/17/18 21:40 Constitutional: Yes: No Distress HENT: Yes: Atraumatic Neck: Yes: Supple Cardiovascular: Yes: Regular Rate and Rhythm Respiratory: Yes: CTA Bilaterally Gastrointestinal: Yes: Normal Bowel Sounds Extremities: Yes: WNL Edema: No Neurological: Yes: Alert, Oriented Labs: CBC, BMP 05/13/18 06:00 05/18/18 06:30 Discharge Summary Reason For Visit: UPPER GI HEMORRHAGE,HYPOKALEMIA,LACTIC ACIDOSIS Current Active Problems GI bleed (Acute) Hyponatremia (Acute) Sepsis (Acute) Septic shock (Acute) Condition: Fair - Instructions Diet, Activity, Other Instructions: see yout doctor in 3-5 days check cbc and cmp 1 week Referrals: Verona Lagunas MD [Staff Physician] - Sergio Amador MD [Staff Physician] - Disposition: HOME - Home Medications Comprehensive Discharge Medication List: Ambulatory Orders Nadolol [Corgard -] 20 mg PO DAILY #30 tablet 05/15/18 Sodium Chloride Tablet - 1 gm PO BID #14 tablet 05/15/18 sodium wnl d/w renal can be dc
[2018-05-18 17:02] VITALS: BP 122/67; PULSE 91; TEMP 98.8
== END 2018-05-18 17:24 | disposition home or self-care (01) | DRG 720 ==
LOC: JER 13:19 → EDBD 13:19 → JERBED 15:56 → JICU 21:48 → J8W 05-12 13:18
PROVIDERS: ADMIT Internal Medicine; ATTEND Internal Medicine
PROC: 05HM33Z Insertion of Infusion Device into Right Internal Jugular Vein, Percutaneous Approach (ICD-10-PCS; 2018-05-01)
PROC: 5A1955Z Respiratory Ventilation, Greater than 96 Consecutive Hours (ICD-10-PCS; principal; 2018-05-02)
PROC: 0BH17EZ Insertion of Endotracheal Airway into Trachea, Via Natural or Artificial Opening (ICD-10-PCS; 2018-05-02)
PROC: 30233R1 Transfusion of Nonautologous Platelets into Peripheral Vein, Percutaneous Approach (ICD-10-PCS; 2018-05-02)
PROC: 30233L1 Transfusion of Nonautologous Fresh Plasma into Peripheral Vein, Percutaneous Approach (ICD-10-PCS; 2018-05-02)
PROC: 30233K1 Transfusion of Nonautologous Frozen Plasma into Peripheral Vein, Percutaneous Approach (ICD-10-PCS; 2018-05-02)
DX: A41.9 Sepsis, unspecified organism (principal); F10.10 Alcohol abuse, uncomplicated; I10 Essential (primary) hypertension; D64.9 Anemia, unspecified; E87.6 Hypokalemia; R00.0 Tachycardia, unspecified; K20.9 Esophagitis, unspecified; I95.9 Hypotension, unspecified; E66.9 Obesity, unspecified; D69.6 Thrombocytopenia, unspecified; E87.1 Hypo-osmolality and hyponatremia; K92.2 Gastrointestinal hemorrhage, unspecified; J96.01 Acute respiratory failure with hypoxia; J96.02 Acute respiratory failure with hypercapnia; K92.0 Hematemesis; N17.9 Acute kidney failure, unspecified; E87.2 Acidosis; D68.9 Coagulation defect, unspecified; F17.210 Nicotine dependence, cigarettes, uncomplicated; J69.0 Pneumonitis due to inhalation of food and vomit; E87.70 Fluid overload, unspecified; E78.5 Hyperlipidemia, unspecified; D70.9 Neutropenia, unspecified; R65.21 Severe sepsis with septic shock
CPT/HCPCS: 31500; 36415; 36430; 36511; 36600; 70450-TC; 71045-TC-FY; 80048; 80053; 80074; 80307; 81003; 81015; 82272; 82436; 82533; 82550; 82553; 82607; 82728; 82746; 82803; 82962; 83036; 83540; 83550; 83605; 83615; 83690; 83735; 83930; 83935; 84100; 84133; 84300; 84443; 84466; 84484; 85025; 85027; 85044; 85384; 85610; 85730; 86850; 86900; 86901; 86922; 87040; 87070; 87086; 87186; 87205; 87389; 87804; 87899; 90688; 93005; 93010; 93306-TC; 94002; 94010; 94640; 97116-GP; 97161-GP; 99285-25; G0008; G0480; J0131; J7030; P9017; P9034; P9038

== ENCOUNTER 2018-12-23 00:11 | Emergency (ER) | payer OTHER ==
--- NOTE | 2018-12-23 02:44 | PDOC ---
Medical Decision Making - Medical Decision Making 12/23/18 02:45 53 year old male LLQ abdominal pain 1/2 L daily vodka
--- NOTE | 2018-12-23 02:58 | PDOC ---
History of Present Illness - General Stated Complaint: INTOX Time Seen by Provider: 12/23/18 02:34 - History of Present Illness Initial Comments: 12/23/18 02:56 The patient is a 53 year old male with a PMH of ETOH (as per EMR h/o DT's) and UGI bleed (2/2 to esophagitis) presents to the ED c/o abdominal pain. Patient started acutely yesterday and is constant, localized to his LUQ and associated with 3 episodes yesterday and today of whitish emesis. No h/o fevers/chills, cough, chest pain. Past History - Past Medical History Allergies/Adverse Reactions: Allergies Allergy/AdvReac Type Severity Reaction Status Date / Time No Known Allergies Allergy Verified 05/01/18 13:35 Home Medications: Ambulatory Orders Nadolol [Corgard -] 20 mg PO DAILY #30 tablet 05/15/18 Anemia: Yes (anemia) Asthma: No Cardiac Disorders: No COPD: No Diabetes: No GI Disorders: Yes (gastritis, GIB, Esophogeal varices, Dieulafoy lesion) Disorders: No HTN: Yes Kidney Stones: No Seizures: No - Surgical History Abdominal Surgery: No Appendectomy: No Cardiac Surgery: No Cholecystectomy: No Lung Surgery: No Neurologic Surgery: No Orthopedic Surgery: No - Reproductive History Testicular Surgery: No - Immunization History Immunization Up to Date: No - Suicide/Smoking/Psychosocial Hx Smoking History: Current every day smoker Have you smoked in the past 12 months: Yes Number of Cigarettes Smoked Daily: 20 'Breaking Loose' booklet given: 05/02/18 Hx Alcohol Use: Yes Drug/Substance Use Hx: No Substance Use Type: Alcohol Hx Substance Use Treatment: No Review of Systems - Review of Systems Constitutional: No: Chills, Fever Respiratory: No: Cough, Shortness of Breath Cardiac (ROS): No: Chest Pain, Lightheadedness, Palpitations, Syncope ABD/GI: Yes: Nausea, Vomiting, Abdominal cramping. No: Constipated, Diarrhea : No: Burning, Dysuria *Physical Exam - Physical Exam General Appearance: Yes: Nourished, Appropriately Dressed HEENT: positive: Normal Voice, Hearing Grossly Normal Neck: positive: Trachea midline, Supple Respiratory/Chest: positive: Lungs Clear, Normal Breath Sounds. negative: Labored Respiration, Rhonchi, Wheezing Cardiovascular: positive: S1, S2. negative: Edema Gastrointestinal/Abdominal: positive: Normal Bowel Sounds, Soft, Other (Mild LUQ TTP w/o peritoneal sigh) Extremity: positive: Normal Capillary Refill, Normal Inspection Integumentary: positive: Normal Color, Dry, Warm ED Treatment Course - LABORATORY CBC & Chemistry Diagram: 12/23/18 03:40 12/23/18 03:40 Medical Decision Making - Medical Decision Making 12/23/18 03:03 53 year old male with LUQ abdominal pain Mildly tachycardic (HR 101) other VS unremarkable Patient intoxicated @ presentation; willing to go to rehab Banana bag, will contact [facility] for bed availability. 12/23/18 04:00 Case d/w [facility] - will have rehab beds available @ 8 a.m. Plan for basic labs, EKG/CXR, GI cocktail, ETOH level 12/23/18 05:30 Hb stable @ 11 ETOH 332 - patient receiving banana bag Patient reiterates affirmation for rehab. Will sign out to day team with plan for [facility] @ 8 a.m. 12/23/18 07:28 Patient signed out to Dr. Mckeon - will d/c to [facility]. *DC/Admit/Observation/Transfer Diagnosis at time of Disposition: Alcohol intoxication - Discharge Dispostion Disposition: [facility] Condition at time of disposition: Fair Decision to Admit order: No - Referrals - Patient Instructions Printed Discharge Instructions: DI for Alcohol Abuse Additional Instructions: We are discharging you to [facility] for alcohol rehabilitation. Return to the Emergency Department for any new/worsening/concerning symptoms. - Post Discharge Activity
[2018-12-23] MEDS ORDERED: ONDANSETRON 4 MG/2 ML VIAL IVPUSH ONE (03:02)
[2018-12-23] MEDS ORDERED: FOLIC ACID INJECTION - 1 MG, THIAMINE HCL 100 MG, MULTIVIT INJECTION ADULT 10 ML in SOD... IVPB ONE (03:02)
--- NOTE | 2018-12-23 03:04 | PDOC ---
Attending Attestation - Resident Resident Name: Mala Chatman - ED Attending Attestation I have performed the following: I have examined & evaluated the patient, The case was reviewed & discussed with the resident, I agree w/resident's findings & plan - HPI HPI: 12/23/18 04:39 Pt comes with alcohol intox. Alc level is 332 in the ER. He will be sober by 8-9am. Pt is requesting rehab and detox, - Physicial Exam PE: 12/23/18 04:40 Agree with resident exam - Medical Decision Making 12/23/18 04:40 Pt will be sent to alcohol rehab in the AM with hosp security 12/23/18 06:07 Labs are normal. Alc is 332. Pt will be stable to go at 7-8AM.. Pt will be signed out to the day ER docs. 12/23/18 06:09 Pt is feeling better with the banana bag Heart Score/ECG Review - ECG Intrepretation Rhythm: Regular Rhythm - [place]: Normal - P and CA Delta Wave(s) Present: No WPW: No - ST and T Early Repolarization: No Non Specific ST-T Wave changes: No Flattened T Waves: No Prolonged Q-T Interval: No - ECG Impressions Normal ECG: Yes Non-specific ST Elevation: No Ischemic Changes: No Bradycardia: No Torsades pam Pointes: No
[2018-12-23 03:23] VITALS: BMI 27.4
[2018-12-23] MEDS ORDERED: BISMUTH SUBSALICYLATE 262 MG/15 ML BTL PO ONE (04:01)
[2018-12-23 04:07] LABS: BASO % 1.8 % (0-2.0); EOS % 1.4 % (0-4.5); HEMATOCRIT 35.3 % (35.4-49); HEMOGLOBIN 11.1 GM/dL (11.7-16.9); LYMPH % 42.7 % (8-40); MCH 22.4 pg (25.7-33.7); MCHC 31.5 g/dl (32.0-35.9); MEAN CELL VOLUME 71.2 fl (80-96); MEAN PLT VOLUME 8.9 fl (7.5-11.1); MONO % 7.4 % (3.8-10.2); NEUT % 46.7 % (42.8-82.8); PLATELET COUNT 198 K/MM3 (134-434); RBC 4.96 M/mm3 (4.00-5.60); RDW 20.2 % (11.9-15.9); WHITE BLOOD COUNT 3.3 K/mm3 (4.0-10.0)
[2018-12-23 04:37] LABS: ALBUMIN 3.9 g/dl (3.4-5.0); BILIRUBIN,TOTAL 0.5 mg/dL (0.2-1); BLOOD UREA NITROGEN 10.5 mg/dL (7-18); CALCIUM 7.7 mg/dL (8.5-10.1); CREATININE 0.5 mg/dL (0.55-1.3); POTASSIUM 3.7 mmol/L (3.5-5.1); TOT PROT 8.2 g/dl (6.4-8.2)
[2018-12-23] MEDS ORDERED: ONDANSETRON 4 MG/2 ML VIAL ONE (04:49)
[2018-12-23] MEDS ORDERED: SODIUM CHLORIDE 0.9% 500 ML INFUS.BAG IV ONE (05:27)
--- NOTE | 2018-12-23 07:08 | PDOC ---
*Physical Exam - Vital Signs Last Vital Signs Temp Pulse Resp BP Pulse Ox 98.2 F 101 H 16 138/96 97 12/23/18 03:18 12/23/18 03:18 12/23/18 03:18 12/23/18 03:18 12/23/18 03:18 - Physical Exam Comments: 12/23/18 07:48 Gen: aaox3, nad heent: mmm, no tongue fasciculations heart: +s1s2 reg lungs: cta b/l abd: soft, nt/nd +bs ext: no c/c/e, no tremors ED Treatment Course - LABORATORY CBC & Chemistry Diagram: 12/23/18 03:40 12/23/18 03:40 - ADDITIONAL ORDERS Additional order review: Laboratory Results 12/23/18 12/23/18 03:40 03:40 Sodium 144 Potassium 3.7 Chloride 108 H Carbon Dioxide 25 Anion Gap 11 BUN 10.5 Creatinine 0.5 L Est GFR (CKD-EPI)AfAm 142.39 Est GFR (CKD-EPI)NonAf 122.86 Random Glucose 110 H Calcium 7.7 L Total Bilirubin 0.5 AST 58 H ALT 34 Alkaline Phosphatase 81 Total Protein 8.2 Albumin 3.9 Lipase 234 Alcohol, Quantitative 332.0 H 12/23/18 03:40 RBC 4.96 MCV 71.2 L MCHC 31.5 L RDW 20.2 H MPV 8.9 Neutrophils % 46.7 D Lymphocytes % 42.7 H D Monocytes % 7.4 Eosinophils % 1.4 D Basophils % 1.8 - Medications Given in the ED: ED Medications Discontinued Medications Generic Name Dose Route Start Last Admin Trade Name Hemant PRN Reason Stop Dose Admin Bismuth Subsalicylate 30 ml 12/23/18 04:01 12/23/18 05:18 Pepto-Bismol Liquid - PO 12/23/18 04:02 30 ml ONCE ONE Administration Ondansetron HCl 4 mg 12/23/18 03:02 12/23/18 05:18 Zofran Injection IVPUSH 12/23/18 03:03 4 mg ONCE ONE Administration Sodium Chloride 1,000 ml 12/23/18 05:27 12/23/18 05:58 Normal Saline - IV 12/23/18 05:28 Not Given ONCE ONE Medical Decision Making - Medical Decision Making 12/23/18 07:08 a/p: Pt signed out pending d/c to [facility] at 8am by the night team 12/23/18 07:49 pt with etoh use last night pt waiting to go to [facility] at 8am this morning pt states he does want help to stop drinking etoh denies all complaints this AM labs reviewed from last night *DC/Admit/Observation/Transfer Diagnosis at time of Disposition: Alcohol intoxication - Discharge Dispostion Disposition: [facility] Condition at time of disposition: Fair Decision to Admit order: No - Referrals Referrals: Tao Bacon MD [Staff Physician] - - Patient Instructions Printed Discharge Instructions: DI for Alcohol Abuse Additional Instructions: We are discharging you to [facility] for alcohol rehabilitation. Return to the Emergency Department for any new/worsening/concerning symptoms. - Post Discharge Activity
[2018-12-23 08:37] VITALS: BP 143/95; PULSE 96; TEMP 97
--- NOTE | 2018-12-24 10:38 | EKG ---
Test Reason : Blood Pressure : / mmHG Vent. Rate : 099 BPM Atrial Rate : 099 BPM P-R Int : 146 ms QRS Dur : 086 ms QT Int : 366 ms P-R-T Axes : 041 027 033 degrees QTc Int : 469 ms NORMAL SINUS RHYTHM NORMAL ECG WHEN COMPARED WITH ECG OF 09-MAY-2018 20:21, QRS AXIS SHIFTED LEFT Confirmed by MARGOT NUGENT MD ([id number]) on 12/24/2018 10:37:33 AM Referred By: Confirmed By:MARGOT NUGENT MD
== END 2018-12-23 08:00 | disposition other institution (70) ==
LOC: JER 00:11
PROC: 3E033GC Introduction of Other Therapeutic Substance into Peripheral Vein, Percutaneous Approach (ICD-10-PCS; principal; 2018-12-23)
DX: F10.120 Alcohol abuse with intoxication, uncomplicated (principal); Y90.7 Blood alcohol level of 200-239 mg/100 ml; I10 Essential (primary) hypertension; Z87.19 Personal history of other diseases of the digestive system; F17.210 Nicotine dependence, cigarettes, uncomplicated; Z86.2 Personal history of diseases of the blood and blood-forming organs and certain disorders involving the immune mechanism
CPT/HCPCS: 36415; 80053; 80307; 83690; 85025; 93005; 93010; 96365; 96366; 96375; 99283-25; J7030

== ENCOUNTER 2020-05-29 12:19 | Inpatient (IN) | payer OTHER ==
[2020-05-29 12:59] VITALS: BMI 27.4
[2020-05-29] MEDS ORDERED: ONDANSETRON *ODT* 4 MG TABLET SL PRN (14:43)
[2020-05-29] MEDS ORDERED: MENTHOL/PHENOL 1 EACH UD MM PRN (14:43)
[2020-05-29] MEDS ORDERED: BISMUTH SUBSALICYLATE 524 MG/30 ML UD PO PRN (14:43)
[2020-05-29] MEDS ORDERED: MAGNESIUM HYDROX 2400MG/30ML ORAL SUSPENSION 30 ML CUP PO PRN (14:43)
[2020-05-29] MEDS ORDERED: MAG HYDROX/AL HYDROX/SIMETH 30 ML UNIT-DOSE CUP PO PRN (14:43)
[2020-05-29] MEDS ORDERED: ACETAMINOPHEN 325 MG TABLET (FP) PO PRN ×2 (14:43)
[2020-05-29] MEDS ORDERED: NICOTINE POLACRILEX 2 MG GUM BUC PRN (14:43)
[2020-05-29] MEDS ORDERED: MAGNESIUM CITRATE 300 ML BOTTLE PO PRN (14:43)
[2020-05-29] MEDS ORDERED: chlordiazePOXIDE HCL 25 MG CAPSULE PO PRN (14:43)
[2020-05-29] MEDS ORDERED: IBUPROFEN 400 MG TABLET (FP) PO PRN (14:43)
[2020-05-29] MEDS: PRENATAL VITAMINS W/ FOLIC ACID TABLET (FP) PO SCH (15:24)
[2020-05-29] MEDS: PANTOPRAZOLE 40 MG TABLET PO SCH (15:25)
[2020-05-29] MEDS: chlordiazePOXIDE HCL 25 MG CAPSULE PO SCH ×2 (17:16→22:02)
[2020-05-29] MEDS: hydrOXYzine PAMOATE 25 MG CAPSULE (FP) PO SCH ×2 (17:16→22:02)
[2020-05-29] MEDS: THIAMINE HCL 100 MG TABLET (FP) PO SCH (22:02)
[2020-05-29] MEDS: MELATONIN 5 MG TABLETS PO SCH (22:02)
[2020-05-30] MEDS: hydrOXYzine PAMOATE 25 MG CAPSULE (FP) PO SCH ×5 (05:40→22:27)
[2020-05-30] MEDS: chlordiazePOXIDE HCL 25 MG CAPSULE PO SCH ×4 (05:40→22:26)
[2020-05-30 09:51] LABS: POTASSIUM 3.3 mmol/L (3.5-5.1)
[2020-05-30 09:57] LABS: HEMATOCRIT 31.4 % (35.4-49); HEMOGLOBIN 9.6 GM/dL (11.7-16.9); MCHC 30.6 g/dl (32.0-35.9); MEAN PLT VOLUME 9.4 fl (7.5-11.1); PLATELET COUNT 143 K/MM3 (134-434); RBC 4.91 M/mm3 (4.00-5.60); RDW 20.4 % (11.9-15.9); WHITE BLOOD COUNT 4.4 K/mm3 (4.0-10.0)
[2020-05-30 09:59] LABS: MCH 19.6 pg (25.7-33.7)
[2020-05-30 10:03] LABS: ALBUMIN 4.1 g/dl (3.4-5.0); CALCIUM 8.3 mg/dL (8.5-10.1)
[2020-05-30 10:07] LABS: CREATININE 0.5 mg/dL (0.55-1.3)
[2020-05-30] MEDS: METHOCARBAMOL 500 MG TABLET PO PRN (10:07)
[2020-05-30] MEDS: PRENATAL VITAMINS W/ FOLIC ACID TABLET (FP) PO SCH (10:07)
[2020-05-30 10:08] LABS: BILIRUBIN,TOTAL 1.5 mg/dL (0.2-1); TOT PROT 7.7 g/dl (6.4-8.2)
[2020-05-30] MEDS: PANTOPRAZOLE 40 MG TABLET PO SCH (10:08)
[2020-05-30] MEDS ORDERED: POTASSIUM CHLORIDE TABS 20 MEQ TABLET.ER (FP) PO ONE ×2 (10:42→16:00)
[2020-05-30] MEDS: THIAMINE HCL 100 MG TABLET (FP) PO SCH (22:26)
[2020-05-30] MEDS: MELATONIN 5 MG TABLETS PO SCH (22:27)
[2020-05-31] MEDS: chlordiazePOXIDE HCL 25 MG CAPSULE PO SCH ×4 (05:54→22:10)
[2020-05-31] MEDS: hydrOXYzine PAMOATE 25 MG CAPSULE (FP) PO SCH ×5 (05:54→22:11)
[2020-05-31] MEDS: PRENATAL VITAMINS W/ FOLIC ACID TABLET (FP) PO SCH (10:08)
[2020-05-31] MEDS: PANTOPRAZOLE 40 MG TABLET PO SCH (10:09)
[2020-05-31] MEDS ORDERED: FLU VACCINE (FLULAVAL) PF 60 MCG/0.5 ML SYRINGE 2020-2021 IM ONE (12:00)
[2020-05-31] MEDS: METHOCARBAMOL 500 MG TABLET PO PRN (13:28)
[2020-05-31 17:33] LABS: HEMATOCRIT 31.1 % (35.4-49); HEMOGLOBIN 9.2 GM/dL (11.7-16.9); MCHC 29.6 g/dl (32.0-35.9); MEAN CELL VOLUME 65.9 fl (80-96); RBC 4.72 M/mm3 (4.00-5.60); RDW 20.4 % (11.9-15.9); WHITE BLOOD COUNT 2.6 K/mm3 (4.0-10.0)
[2020-05-31 18:04] LABS: MCH 19.5 pg (25.7-33.7)
[2020-05-31 20:35] LABS: ANISOCYTOSIS 1+; MACROCYTOSIS 0; OVALOCYTE 1+; PLATELET ESTIMATE DECREASED
[2020-05-31] MEDS: THIAMINE HCL 100 MG TABLET (FP) PO SCH (22:10)
[2020-05-31] MEDS: MELATONIN 5 MG TABLETS PO SCH (22:10)
[2020-06-01] MEDS ORDERED: chlordiazePOXIDE HCL 10 MG CAPSULE PO PRN
[2020-06-01] MEDS: hydrOXYzine PAMOATE 25 MG CAPSULE (FP) PO SCH ×5 (05:10→22:06)
[2020-06-01] MEDS: chlordiazePOXIDE HCL 10 MG CAPSULE PO SCH ×4 (05:10→22:06)
[2020-06-01] MEDS: PANTOPRAZOLE 40 MG TABLET PO SCH (10:00)
[2020-06-01] MEDS: PRENATAL VITAMINS W/ FOLIC ACID TABLET (FP) PO SCH (10:00)
[2020-06-01] MEDS: METHOCARBAMOL 500 MG TABLET PO PRN (10:01)
[2020-06-01] MEDS: THIAMINE HCL 100 MG TABLET (FP) PO SCH (22:05)
[2020-06-01] MEDS: MELATONIN 5 MG TABLETS PO SCH (22:06)
[2020-06-02] MEDS: METHOCARBAMOL 500 MG TABLET PO PRN (02:52)
[2020-06-02] MEDS: chlordiazePOXIDE HCL 10 MG CAPSULE PO SCH ×2 (05:35→17:04)
[2020-06-02] MEDS: hydrOXYzine PAMOATE 25 MG CAPSULE (FP) PO SCH ×2 (05:35→09:25)
[2020-06-02] MEDS: PRENATAL VITAMINS W/ FOLIC ACID TABLET (FP) PO SCH (09:25)
[2020-06-02] MEDS: PANTOPRAZOLE 40 MG TABLET PO SCH (09:25)
[2020-06-02] MEDS ORDERED: hydrOXYzine PAMOATE 25 MG CAPSULE (FP) PO PRN (12:02)
[2020-06-02] MEDS: FERROUS SO4 325 MG TABLET (FP) PO SCH ×2 (12:49→17:03)
[2020-06-02 17:59] VITALS: BP 139/84; PULSE 118; TEMP 98.4
[2020-06-02 18:26] LABS: HEMATOCRIT 29.3 % (35.4-49); HEMOGLOBIN 8.8 GM/dL (11.7-16.9); MCH 20.1 pg (25.7-33.7); MCHC 30.1 g/dl (32.0-35.9); MEAN CELL VOLUME 66.6 fl (80-96); MEAN PLT VOLUME 9.7 fl (7.5-11.1); RBC 4.41 M/mm3 (4.00-5.60); RDW 20.6 % (11.9-15.9); WHITE BLOOD COUNT 5.5 K/mm3 (4.0-10.0)
[2020-06-02 18:48] LABS: PLATELET COUNT 110 K/MM3 (134-434)
[2020-06-03] MEDS ORDERED: chlordiazePOXIDE HCL 10 MG CAPSULE PO ONE (05:00)
== END 2020-06-02 18:15 | disposition home or self-care (01) | DRG 775 ==
LOC: YASAS 12:19 → Y3N 14:18
PROVIDERS: ADMIT Allergy & Immunology; ATTEND Allergy & Immunology
PROC: HZ2ZZZZ Detoxification Services for Substance Abuse Treatment (ICD-10-PCS; principal; 2020-05-29)
DX: F10.230 Alcohol dependence with withdrawal, uncomplicated (principal); F10.220 Alcohol dependence with intoxication, uncomplicated; D69.6 Thrombocytopenia, unspecified; D64.9 Anemia, unspecified; E87.6 Hypokalemia; G40.909 Epilepsy, unspecified, not intractable, without status epilepticus; I10 Essential (primary) hypertension; K21.9 Gastro-esophageal reflux disease without esophagitis; R94.5 Abnormal results of liver function studies; R74.01 Elevation of levels of liver transaminase levels; Z87.19 Personal history of other diseases of the digestive system; Z86.11 Personal history of tuberculosis
CPT/HCPCS: 36415; 71046-TC-FY; 80053; 84132; 85025; 85027; 86780; C9803; U0003

== ENCOUNTER 2020-07-07 12:00 | Inpatient (IN) | payer OTHER ==
[2020-07-07 12:24] VITALS: BMI 27.4
[2020-07-07] MEDS ORDERED: METHOCARBAMOL 500 MG TABLET PO PRN (12:47)
[2020-07-07] MEDS ORDERED: IBUPROFEN 400 MG TABLET (FP) PO PRN (12:47)
[2020-07-07] MEDS ORDERED: MAG HYDROX/AL HYDROX/SIMETH 30 ML UNIT-DOSE CUP PO PRN (12:47)
[2020-07-07] MEDS ORDERED: MAGNESIUM CITRATE 300 ML BOTTLE PO PRN (12:47)
[2020-07-07] MEDS ORDERED: ONDANSETRON *ODT* 4 MG TABLET SL PRN (12:47)
[2020-07-07] MEDS ORDERED: LORazepam 1 MG TABLET PO PRN (12:47)
[2020-07-07] MEDS ORDERED: MENTHOL/PHENOL 1 EACH UD MM PRN (12:47)
[2020-07-07] MEDS ORDERED: ACETAMINOPHEN 325 MG TABLET (FP) PO PRN ×2 (12:47)
[2020-07-07] MEDS ORDERED: BISMUTH SUBSALICYLATE 524 MG/30 ML UD PO PRN (12:47)
[2020-07-07] MEDS ORDERED: MAGNESIUM HYDROX 2400MG/30ML ORAL SUSPENSION 30 ML CUP PO PRN (12:47)
[2020-07-07] MEDS: hydrOXYzine PAMOATE 25 MG CAPSULE (FP) PO SCH ×3 (13:54→23:15)
[2020-07-07 16:05] LABS: HEMATOCRIT 38.3 % (35.4-49); HEMOGLOBIN 11.5 GM/dL (11.7-16.9); MCHC 30.2 g/dl (32.0-35.9); MEAN CELL VOLUME 65.5 fl (80-96); MEAN PLT VOLUME 9.2 fl (7.5-11.1); RBC 5.84 M/mm3 (4.00-5.60); RDW 23.2 % (11.9-15.9); WHITE BLOOD COUNT 4.3 K/mm3 (4.0-10.0)
[2020-07-07 16:27] LABS: MCH 19.8 pg (25.7-33.7)
[2020-07-07 16:34] LABS: POTASSIUM 3.1 mmol/L (3.5-5.1)
[2020-07-07 16:35] LABS: CALCIUM 8.8 mg/dL (8.5-10.1)
[2020-07-07 16:36] LABS: ALBUMIN 4.6 g/dl (3.4-5.0); BLOOD UREA NITROGEN 22.7 mg/dL (7-18)
[2020-07-07 16:39] LABS: CREATININE 0.8 mg/dL (0.55-1.3)
[2020-07-07 16:41] LABS: BILIRUBIN,TOTAL 1.1 mg/dL (0.2-1); TOT PROT 8.8 g/dl (6.4-8.2)
[2020-07-07 16:57] LABS: PLATELET COUNT 72 K/MM3 (134-434)
[2020-07-07] MEDS: LORazepam 2 MG TABLET PO SCH ×2 (18:20→23:15)
[2020-07-07] MEDS: MELATONIN 5 MG TABLETS PO SCH (23:15)
[2020-07-07] MEDS: THIAMINE HCL 100 MG TABLET (FP) PO SCH (23:15)
[2020-07-08] MEDS: LORazepam 2 MG TABLET PO SCH ×4 (05:35→22:14)
[2020-07-08] MEDS: hydrOXYzine PAMOATE 25 MG CAPSULE (FP) PO SCH ×5 (05:35→22:15)
[2020-07-08] MEDS: PRENATAL VITAMINS W/ FOLIC ACID TABLET (FP) PO SCH (11:03)
[2020-07-08] MEDS: POTASSIUM CHLORIDE ORAL LIQUID 20 MEQ/15 ML PO SCH ×2 (11:03→22:15)
[2020-07-08] MEDS ORDERED: FLU VACCINE (FLULAVAL) PF 60 MCG/0.5 ML SYRINGE 2020-2021 IM ONE (12:00)
[2020-07-08] MEDS ORDERED: hydrOXYzine PAMOATE 50 MG CAPSULE (FP) PO ONE (18:16)
[2020-07-08] MEDS: PANTOPRAZOLE 20 MG TABLET PO SCH (19:02)
[2020-07-08] MEDS: MELATONIN 5 MG TABLETS PO SCH (22:15)
[2020-07-08] MEDS: THIAMINE HCL 100 MG TABLET (FP) PO SCH (22:15)
[2020-07-09] MEDS: LORazepam 1 MG TABLET PO SCH ×4 (05:14→22:19)
[2020-07-09] MEDS: hydrOXYzine PAMOATE 25 MG CAPSULE (FP) PO SCH ×5 (05:15→22:21)
[2020-07-09] MEDS: PANTOPRAZOLE 20 MG TABLET PO SCH (10:16)
[2020-07-09] MEDS: POTASSIUM CHLORIDE ORAL LIQUID 20 MEQ/15 ML PO SCH ×2 (10:16→22:18)
[2020-07-09] MEDS: PRENATAL VITAMINS W/ FOLIC ACID TABLET (FP) PO SCH (10:16)
[2020-07-09 13:24] LABS: HEMATOCRIT 33.7 % (35.4-49); MCH 19.9 pg (25.7-33.7); MCHC 29.8 g/dl (32.0-35.9); MEAN CELL VOLUME 66.7 fl (80-96); MEAN PLT VOLUME 10.2 fl (7.5-11.1); PLATELET COUNT 40 K/MM3 (134-434); RBC 5.04 M/mm3 (4.00-5.60); RDW 23.9 % (11.9-15.9); WHITE BLOOD COUNT 4.1 K/mm3 (4.0-10.0)
[2020-07-09 13:28] LABS: POTASSIUM 3.2 mmol/L (3.5-5.1)
[2020-07-09 13:31] LABS: CALCIUM 8.5 mg/dL (8.5-10.1)
[2020-07-09 13:32] LABS: ALBUMIN 3.8 g/dl (3.4-5.0); BLOOD UREA NITROGEN 14.6 mg/dL (7-18)
[2020-07-09 13:34] LABS: INR 1.14 (0.83-1.09)
[2020-07-09 13:35] LABS: CREATININE 0.5 mg/dL (0.55-1.3)
[2020-07-09 13:36] LABS: BILIRUBIN,TOTAL 1.6 mg/dL (0.2-1); TOT PROT 7.5 g/dl (6.4-8.2)
[2020-07-09] MEDS: THIAMINE HCL 100 MG TABLET (FP) PO SCH (22:19)
[2020-07-09] MEDS: MELATONIN 5 MG TABLETS PO SCH (22:21)
[2020-07-10] MEDS: LORazepam 0.5 MG TABLET PO PRN ×2 (01:50→09:57)
[2020-07-10] MEDS: hydrOXYzine PAMOATE 25 MG CAPSULE (FP) PO SCH ×5 (07:00→22:21)
[2020-07-10] MEDS: LORazepam 0.5 MG TABLET PO SCH ×4 (07:07→22:20)
[2020-07-10] MEDS: PRENATAL VITAMINS W/ FOLIC ACID TABLET (FP) PO SCH (09:57)
[2020-07-10] MEDS: PANTOPRAZOLE 20 MG TABLET PO SCH (09:58)
[2020-07-10 11:51] LABS: HEMATOCRIT 33.7 % (35.4-49); HEMOGLOBIN 10.1 GM/dL (11.7-16.9); MCH 20.2 pg (25.7-33.7); MCHC 29.9 g/dl (32.0-35.9); MEAN CELL VOLUME 67.5 fl (80-96); MEAN PLT VOLUME 10.6 fl (7.5-11.1); PLATELET COUNT 71 K/MM3 (134-434); RBC 4.99 M/mm3 (4.00-5.60); RDW 24.2 % (11.9-15.9); WHITE BLOOD COUNT 4.2 K/mm3 (4.0-10.0)
[2020-07-10 11:53] LABS: POTASSIUM 3.5 mmol/L (3.5-5.1)
[2020-07-10 11:54] LABS: CALCIUM 8.8 mg/dL (8.5-10.1)
[2020-07-10 11:55] LABS: ALBUMIN 3.9 g/dl (3.4-5.0); BLOOD UREA NITROGEN 10.5 mg/dL (7-18)
[2020-07-10 11:58] LABS: CREATININE 0.5 mg/dL (0.55-1.3)
[2020-07-10 12:00] LABS: BILIRUBIN,TOTAL 0.6 mg/dL (0.2-1); TOT PROT 7.6 g/dl (6.4-8.2)
[2020-07-10] MEDS ORDERED: POTASSIUM CHLORIDE ORAL LIQUID 20 MEQ/15 ML PO ONE (13:58)
[2020-07-10] MEDS: LACTULOSE 20 GM/30 ML UDC (FOR ORAL USE ONLY) PO SCH ×3 (14:34→22:22)
[2020-07-10] MEDS: MELATONIN 5 MG TABLETS PO SCH (22:21)
[2020-07-10] MEDS: POTASSIUM CHLORIDE ORAL LIQUID 20 MEQ/15 ML PO SCH (22:21)
[2020-07-10] MEDS: THIAMINE HCL 100 MG TABLET (FP) PO SCH (22:21)
[2020-07-11] MEDS ORDERED: LORazepam 0.5 MG TABLET PO ONE (05:00)
[2020-07-11] MEDS: hydrOXYzine PAMOATE 25 MG CAPSULE (FP) PO SCH ×3 (05:16→14:11)
[2020-07-11] MEDS: LACTULOSE 20 GM/30 ML UDC (FOR ORAL USE ONLY) PO SCH ×2 (11:05→14:11)
[2020-07-11] MEDS: POTASSIUM CHLORIDE ORAL LIQUID 20 MEQ/15 ML PO SCH (11:05)
[2020-07-11] MEDS: PRENATAL VITAMINS W/ FOLIC ACID TABLET (FP) PO SCH (11:05)
[2020-07-11] MEDS: PANTOPRAZOLE 20 MG TABLET PO SCH (11:06)
[2020-07-11 11:14] LABS: INR 1.1 (0.83-1.09); PROTHROMBIN TIME (PATIENT) 13.5 SEC (9.7-13.0)
[2020-07-11 11:21] LABS: POTASSIUM 3.9 mmol/L (3.5-5.1)
[2020-07-11 11:22] LABS: HEMATOCRIT 33.9 % (35.4-49); HEMOGLOBIN 10.1 GM/dL (11.7-16.9); MCH 20.2 pg (25.7-33.7); MCHC 29.9 g/dl (32.0-35.9); MEAN CELL VOLUME 67.7 fl (80-96); WHITE BLOOD COUNT 3.4 K/mm3 (4.0-10.0)
[2020-07-11 11:28] LABS: BLOOD UREA NITROGEN 8.6 mg/dL (7-18); CALCIUM 8.7 mg/dL (8.5-10.1)
[2020-07-11 11:29] LABS: ALBUMIN 3.8 g/dl (3.4-5.0)
[2020-07-11 11:30] LABS: BILIRUBIN,TOTAL 0.7 mg/dL (0.2-1); TOT PROT 7.4 g/dl (6.4-8.2)
[2020-07-11 11:32] LABS: CREATININE 0.5 mg/dL (0.55-1.3)
[2020-07-11 12:45] LABS: ANISOCYTOSIS 2+; OVALOCYTE 1+
[2020-07-11 13:13] VITALS: BP 137/89; PULSE 124; TEMP 97.8
== END 2020-07-11 14:44 | disposition home or self-care (01) | DRG 775 ==
LOC: EDBD → YASAS 12:00 → Y6N 12:57
PROVIDERS: ADMIT Allergy & Immunology; ATTEND Allergy & Immunology
PROC: HZ2ZZZZ Detoxification Services for Substance Abuse Treatment (ICD-10-PCS; principal; 2020-07-07)
DX: F10.230 Alcohol dependence with withdrawal, uncomplicated (principal); D61.818 Other pancytopenia; D69.6 Thrombocytopenia, unspecified; E87.6 Hypokalemia; D64.9 Anemia, unspecified; R56.9 Unspecified convulsions; K22.10 Ulcer of esophagus without bleeding; M54.6 Pain in thoracic spine; R74.8 Abnormal levels of other serum enzymes; R07.89 Other chest pain; Z87.19 Personal history of other diseases of the digestive system
CPT/HCPCS: 36415; 80053; 82140; 85025; 85027; 85610; 86780; 93005; 93010; C9803; G0008; Q0162; Q2036; U0003

== ENCOUNTER 2020-08-15 16:59 | Emergency (ER) | payer OTHER ==
[2020-08-15 17:49] VITALS: BMI 24.2
[2020-08-15] MEDS ORDERED: SODIUM CHLORIDE 0.9% 500 ML INFUS.BAG IV ONE ×2 (17:57→20:10)
[2020-08-15] MEDS ORDERED: FAMOTIDINE 20 MG/50 ML IVPB 20 MG/50 ML MG IVPB ONE ×2 (17:57→18:07)
[2020-08-15] MEDS ORDERED: MAG HYDROX/AL HYDROX/SIMETH -MYLANTA- ORAL SUSPENSION PO ONE (17:57)
[2020-08-15] MEDS ORDERED: MAG HYDROX/AL HYDROX/SIMETH 30 ML UNIT-DOSE CUP ONE (18:07)
[2020-08-15] MEDS ORDERED: ONDANSETRON 4 MG/2 ML VIAL IVPUSH ONE (18:15)
[2020-08-15 18:25] LABS: BASO % 0.9 % (0-2.0); HEMATOCRIT 40.5 % (35.4-49); HEMOGLOBIN 12.5 GM/dL (11.7-16.9); LYMPH % 15.2 % (8-40); MCH 20.5 pg (25.7-33.7); MCHC 30.8 g/dl (32.0-35.9); MEAN CELL VOLUME 66.8 fl (80-96); MEAN PLT VOLUME 9.6 fl (7.5-11.1); MONO % 5.8 % (3.8-10.2); NEUT % 78.1 % (42.8-82.8); PLATELET COUNT 192 K/MM3 (134-434); RBC 6.07 M/mm3 (4.00-5.60); RDW 22.7 % (11.9-15.9)
[2020-08-15] MEDS ORDERED: ONDANSETRON 4 MG/2 ML VIAL ONE (18:34)
[2020-08-15 18:50] LABS: CHLORIDE 97 mmol/L (98-107); POTASSIUM 3.4 mmol/L (3.5-5.1); SODIUM 138 mmol/L (136-145)
[2020-08-15 18:52] LABS: CALCIUM 8.7 mg/dL (8.5-10.1)
[2020-08-15 18:53] LABS: ALBUMIN 4.5 g/dl (3.4-5.0); ANION GAP 16 MMOL/L (8-16); BLOOD UREA NITROGEN 25.5 mg/dL (7-18); CO2 25 mmol/L (21-32); GLUCOSE,RANDOM 107 mg/dL (74-106); LIPASE 162 U/L (73-393)
[2020-08-15 18:56] LABS: CREATININE 0.8 mg/dL (0.55-1.3); SGOT/AST 47 U/L (15-37); SGPT/ALT 35 U/L (13-61)
[2020-08-15 18:57] LABS: BILIRUBIN,TOTAL 1.3 mg/dL (0.2-1); TOT PROT 8.7 g/dl (6.4-8.2)
[2020-08-15 18:58] LABS: ALK PHOS 68 U/L (45-117)
[2020-08-15 19:14] LABS: LACTIC ACID 5.8 mmol/L (0.4-2.0)
[2020-08-15] MEDS ORDERED: POTASSIUM CHLORIDE ORAL LIQUID 20 MEQ/15 ML PO ONE (20:10)
[2020-08-15] MEDS ORDERED: POTASSIUM CHLORIDE ORAL LIQUID 20 MEQ/15 ML ONE (20:34)
[2020-08-15 22:26] LABS: ANISOCYTOSIS 2+; MACROCYTOSIS 0; PLATELET ESTIMATE NORMAL; TARGET CELLS 1+
[2020-08-16 00:41] LABS: LACTIC ACID 3.8 mmol/L (0.4-2.0)
[2020-08-16] MEDS ORDERED: SODIUM CHLORIDE 1,000 ML IV STA (01:05)
[2020-08-16 02:19] VITALS: BP 148/86; PULSE 116; TEMP 98.4
[2020-08-16 02:24] LABS: LIPASE 147 U/L (73-393)
[2020-08-16 02:52] LABS: LACTIC ACID 3.5 mmol/L (0.4-2.0)
[2020-08-16] MEDS ORDERED: chlordiazePOXIDE HCL 25 MG CAPSULE PO ONE (03:38)
[2020-08-16] MEDS ORDERED: chlordiazePOXIDE HCL 25 MG CAPSULE ONE (03:48)
== END 2020-08-16 03:58 | disposition home or self-care (01) ==
LOC: JER 16:59
PROC: 3E033GC Introduction of Other Therapeutic Substance into Peripheral Vein, Percutaneous Approach (ICD-10-PCS; principal; 2020-08-15)
PROC: 3E033GC Introduction of Other Therapeutic Substance into Peripheral Vein, Percutaneous Approach (ICD-10-PCS; 2020-08-15)
PROC: 3E0337Z Introduction of Electrolytic and Water Balance Substance into Peripheral Vein, Percutaneous Approach (ICD-10-PCS; 2020-08-15)
DX: R10.13 Epigastric pain (principal); F10.10 Alcohol abuse, uncomplicated; R11.2 Nausea with vomiting, unspecified
CPT/HCPCS: 36415; 71045-TC-FY; 80053; 82272; 82550; 82553; 83605; 83690; 83735; 84484; 85025; 93005; 93010; 99285-25; C9803; U0003

== ENCOUNTER 2020-08-25 12:00 | Inpatient (IN) | payer OTHER ==
[2020-08-25] MEDS ORDERED: ONDANSETRON 4 MG/2 ML VIAL IVPUSH ONE (12:18)
[2020-08-25] MEDS ORDERED: ONDANSETRON 4 MG/2 ML VIAL ONE (12:35)
[2020-08-25] MEDS ORDERED: PANTOPRAZOLE SODIUM 40 MG VIAL IVPUSH ONE (12:39)
[2020-08-25] MEDS ORDERED: FOLIC ACID INJECTION - 1 MG, THIAMINE HCL 100 MG, MULTIVIT INJECTION ADULT 10 ML in SOD... IVPB ONE (12:46)
[2020-08-25] MEDS ORDERED: PANTOPRAZOLE SODIUM 40 MG VIAL ONE (12:49)
[2020-08-25] MEDS ORDERED: diazePAM 5 MG TABLET PO ONE (12:49)
[2020-08-25] MEDS ORDERED: diazePAM CARPU-JECT 10 MG/2 ML DISP.SYRIN IVPUSH ONE ×2 (12:54→13:40)
[2020-08-25 13:02] LABS: INR 1.17 (0.83-1.09); PROTHROMBIN TIME (PATIENT) 14.3 SEC (9.7-13.0)
[2020-08-25] MEDS ORDERED: diazePAM CARPU-JECT 10 MG/2 ML DISP.SYRIN ONE ×2 (13:02→13:07)
[2020-08-25 13:04] LABS: ACTIVATED PTT 29.2 SECONDS (25.2-36.5)
[2020-08-25 13:15] LABS: CHLORIDE 93 mmol/L (98-107); SODIUM 139 mmol/L (136-145)
[2020-08-25 13:17] LABS: CALCIUM 8.7 mg/dL (8.5-10.1)
[2020-08-25 13:18] LABS: ALBUMIN 4.1 g/dl (3.4-5.0); ANION GAP 17 MMOL/L (8-16); BLOOD UREA NITROGEN 24.4 mg/dL (7-18); CO2 29 mmol/L (21-32); GLUCOSE,RANDOM 109 mg/dL (74-106); LIPASE 334 U/L (73-393); MAGNESIUM 1.4 mg/dL (1.8-2.4); POTASSIUM 2.7 mmol/L (3.5-5.1)
[2020-08-25] MEDS ORDERED: MAGNESIUM SULF 50% (8.12 MEQ/2 ML-1 GM VIAL) IVPB ONE (13:18)
[2020-08-25] MEDS ORDERED: POTASSIUM CHLORIDE TABS 20 MEQ TABLET.ER (FP) PO ONE (13:20)
[2020-08-25 13:21] LABS: SGOT/AST 63 U/L (15-37); SGPT/ALT 48 U/L (13-61)
[2020-08-25 13:22] LABS: BILIRUBIN,TOTAL 1.2 mg/dL (0.2-1)
[2020-08-25 13:24] LABS: ALK PHOS 65 U/L (45-117)
[2020-08-25] MEDS ORDERED: MAGNESIUM SULF 50% (8.12 MEQ/2 ML-1 GM VIAL) ONE (13:27)
[2020-08-25] MEDS ORDERED: MAGNESIUM 1GM/D5W - 1 GM/100 ML IVPB IVPB ONE (13:28)
[2020-08-25 13:37] LABS: BASO % 1.1 % (0-2.0); HEMATOCRIT 33.8 % (35.4-49); HEMOGLOBIN 10.6 GM/dL (11.7-16.9); LYMPH % 12.7 % (8-40); MCH 21.5 pg (25.7-33.7); MCHC 31.4 g/dl (32.0-35.9); MEAN CELL VOLUME 68.4 fl (80-96); MEAN PLT VOLUME 9.2 fl (7.5-11.1); MONO % 11.5 % (3.8-10.2); NEUT % 74.7 % (42.8-82.8); PLATELET COUNT 97 K/MM3 (134-434); RBC 4.93 M/mm3 (4.00-5.60); RDW 22.9 % (11.9-15.9); WHITE BLOOD COUNT 5.9 K/mm3 (4.0-10.0)
[2020-08-25] MEDS ORDERED: SODIUM CHLORIDE 1,000 ML IV SCH (13:45)
[2020-08-25] MEDS ORDERED: KCL 10 MEQ IVPB 30 MEQ/300 ML INFUS.BAG IVPB ONE (13:47)
[2020-08-25] MEDS: KCL 10 MEQ IVPB 10 MEQ/100 ML INFUS.BAG IVPB SCH ×5 (13:50→23:45)
[2020-08-25] MEDS ORDERED: PANTOPRAZOLE SODIUM 80 MG in SODIUM CHLORIDE 100 ML IVPB SCH (14:00)
[2020-08-25] MEDS ORDERED: OCTREOTIDE ACETATE 200 MCG, OCTREOTIDE ACETATE 1,000 MCG in DEXTROSE 5%-WATER - 496 ML IVPB SCH (14:45)
[2020-08-25] MEDS ORDERED: OCTREOTIDE ACETATE 50 MCG/1 ML - 1 ML VIAL IVPUSH ONE (14:45)
[2020-08-25] MEDS ORDERED: LORazepam 1 MG TABLET PO PRN (14:49)
[2020-08-25 14:54] LABS: PHOSPHOROUS 1.7 mg/dL (2.5-4.9)
[2020-08-25] MEDS ORDERED: diazePAM 5 MG TABLET PO PRN (15:01)
[2020-08-25 15:03] LABS: ANISOCYTOSIS 1+; MACROCYTOSIS 0; OVALOCYTE 1+; PLATELET ESTIMATE DECREASED; TARGET CELLS 1+
[2020-08-25] MEDS ORDERED: POTASSIUM PHOSPHATE 45 MM in SODIUM CHLORIDE 500 ML IVPB ONE (15:05)
[2020-08-25] MEDS ORDERED: ACETAMINOPHEN 1000 MG/100 ML VIAL (NON FORMULARY) IVPB ONE (15:23)
[2020-08-25] MEDS: PANTOPRAZOLE SODIUM 80 MG in SODIUM CHLORIDE 100 ML IVPB SCH (15:28)
[2020-08-25] MEDS ORDERED: diazePAM CARPU-JECT 10 MG/2 ML DISP.SYRIN IVPUSH PRN (15:34)
[2020-08-25] MEDS ORDERED: OCTREOTIDE ACETATE 100 MCG/1 ML ONE (15:39)
[2020-08-25] MEDS ORDERED: ACETAMINOPHEN INJECTION 100 ML IVPB ONE (16:07)
[2020-08-25] MEDS ORDERED: LORazepam 2 MG TABLET PO SCH (17:00)
[2020-08-25] MEDS ORDERED: diazePAM 5 MG TABLET ONE (18:18)
[2020-08-25] MEDS: diazePAM 5 MG TABLET PO SCH ×2 (18:25→23:51)
[2020-08-25 19:23] LABS: CHLORIDE 95 mmol/L (98-107); POTASSIUM 3.4 mmol/L (3.5-5.1); SODIUM 136 mmol/L (136-145)
[2020-08-25 19:24] LABS: ANION GAP 13 MMOL/L (8-16); CALCIUM 7.7 mg/dL (8.5-10.1); CO2 28 mmol/L (21-32)
[2020-08-25 19:25] LABS: BLOOD UREA NITROGEN 22.6 mg/dL (7-18); GLUCOSE,RANDOM 101 mg/dL (74-106)
[2020-08-25 19:28] LABS: CREATININE 0.7 mg/dL (0.55-1.3)
[2020-08-25] MEDS ORDERED: POTASSIUM CHLORIDE 20 MEQ PREMIX IVPB 100 ML IVPB SCH (19:30)
[2020-08-25 19:32] LABS: LACTIC ACID 2.8 mmol/L (0.4-2.0)
[2020-08-25 19:41] LABS: BASO % 0.6 % (0-2.0); HEMATOCRIT 31.9 % (35.4-49); HEMOGLOBIN 9.9 GM/dL (11.7-16.9); LYMPH % 10.1 % (8-40); MCH 21.5 pg (25.7-33.7); MCHC 31.2 g/dl (32.0-35.9); MEAN CELL VOLUME 69.1 fl (80-96); MEAN PLT VOLUME 8.5 fl (7.5-11.1); MONO % 11.3 % (3.8-10.2); PLATELET COUNT 86 K/MM3 (134-434); RBC 4.62 M/mm3 (4.00-5.60); RDW 22.9 % (11.9-15.9); WHITE BLOOD COUNT 5.5 K/mm3 (4.0-10.0)
[2020-08-25] MEDS ORDERED: MAGNESIUM 2GM/50ML STERILE WATER IVPB IVPB ONE (19:45)
[2020-08-25 20:49] LABS: POTASSIUM 3.5 mmol/L (3.5-5.1)
[2020-08-25 20:51] LABS: CALCIUM 7.6 mg/dL (8.5-10.1)
[2020-08-25 20:52] LABS: BLOOD UREA NITROGEN 21.5 mg/dL (7-18); MAGNESIUM 2.2 mg/dL (1.8-2.4)
[2020-08-25 20:55] LABS: CREATININE 0.7 mg/dL (0.55-1.3); PHOSPHOROUS 6.4 mg/dL (2.5-4.9)
[2020-08-25 21:28] LABS: BASO % 0.9 % (0-2.0); EOS % 0.1 % (0-4.5); HEMATOCRIT 30.6 % (35.4-49); HEMOGLOBIN 9.4 GM/dL (11.7-16.9); LYMPH % 8.8 % (8-40); MCH 21.3 pg (25.7-33.7); MCHC 30.7 g/dl (32.0-35.9); MEAN CELL VOLUME 69.3 fl (80-96); MEAN PLT VOLUME 9.7 fl (7.5-11.1); MONO % 10.7 % (3.8-10.2); NEUT % 79.5 % (42.8-82.8); PLATELET COUNT 78 K/MM3 (134-434); RBC 4.42 M/mm3 (4.00-5.60); RDW 23.1 % (11.9-15.9); WHITE BLOOD COUNT 5.1 K/mm3 (4.0-10.0)
[2020-08-25] MEDS: MUPIROCIN 2% TOPICAL OINTMENT FOR DECOLONIZATION NS SCH (21:47)
[2020-08-25] MEDS ORDERED: CHLORHEXIDINE GLUCONATE 4% CLEANSER FOR DECOLONIZATION TP SCH (22:00)
[2020-08-25] MEDS ORDERED: TRIMETHOBENZAMIDE HCL 200MG/2ML INJ IM PRN (22:33)
[2020-08-26] MEDS: PANTOPRAZOLE SODIUM 80 MG in SODIUM CHLORIDE 100 ML IVPB SCH (00:30)
[2020-08-26 00:50] VITALS: BMI 26.8
[2020-08-26] MEDS: KCL 10 MEQ IVPB 10 MEQ/100 ML INFUS.BAG IVPB SCH (03:39)
[2020-08-26] MEDS: diazePAM 5 MG TABLET PO SCH ×3 (06:38→17:04)
[2020-08-26 07:05] LABS: POTASSIUM 3.8 mmol/L (3.5-5.1)
[2020-08-26 07:11] LABS: ALBUMIN 3.4 g/dl (3.4-5.0); BLOOD UREA NITROGEN 14.7 mg/dL (7-18); CALCIUM 7.3 mg/dL (8.5-10.1); MAGNESIUM 1.9 mg/dL (1.8-2.4)
[2020-08-26 07:14] LABS: CREATININE 0.5 mg/dL (0.55-1.3)
[2020-08-26 07:16] LABS: BILIRUBIN,TOTAL 1.6 mg/dL (0.2-1); TOT PROT 6.8 g/dl (6.4-8.2)
[2020-08-26] MEDS ORDERED: PT OWN MED DRAWER 7, Y5N ONE (10:00)
[2020-08-26] MEDS ORDERED: THIAMINE HCL 100 MG TABLET (FP) PO SCH (10:00)
[2020-08-26] MEDS ORDERED: PANTOPRAZOLE 40 MG TABLET PO SCH ×2 (10:00→11:00)
[2020-08-26] MEDS ORDERED: MULTIVITAMINS (DAILY MVI) TABLET (FP) PO SCH ×2 (10:00→11:00)
[2020-08-26] MEDS ORDERED: FOLIC ACID 1 MG TABLET (FP) PO SCH ×2 (10:00→11:00)
[2020-08-26] MEDS: MUPIROCIN 2% TOPICAL OINTMENT FOR DECOLONIZATION NS SCH (10:23)
[2020-08-26 10:27] LABS: HEMOGLOBIN 9.3 GM/dL (11.7-16.9); MCH 21.7 pg (25.7-33.7); MEAN CELL VOLUME 69.9 fl (80-96); MEAN PLT VOLUME 8.8 fl (7.5-11.1); PLATELET COUNT 63 K/MM3 (134-434); RDW 23.2 % (11.9-15.9); WHITE BLOOD COUNT 3.3 K/mm3 (4.0-10.0)
[2020-08-26 10:34] LABS: INR 1.2 (0.83-1.09); PROTHROMBIN TIME (PATIENT) 14.4 SEC (9.7-13.0)
[2020-08-26 10:36] LABS: ACTIVATED PTT 29.2 SECONDS (25.2-36.5)
[2020-08-26] MEDS: SODIUM CHLORIDE 1,000 ML IV SCH (12:49)
[2020-08-26 16:53] LABS: HEMATOCRIT 30.2 % (35.4-49); HEMOGLOBIN 9.3 GM/dL (11.7-16.9); MCH 21.4 pg (25.7-33.7); MCHC 30.8 g/dl (32.0-35.9); MEAN CELL VOLUME 69.5 fl (80-96); RBC 4.35 M/mm3 (4.00-5.60); RDW 22.9 % (11.9-15.9); WHITE BLOOD COUNT 3.6 K/mm3 (4.0-10.0)
[2020-08-26] MEDS ORDERED: TRIMETHOBENZAMIDE HCL 200MG/2ML INJ IM PRN (18:21)
[2020-08-26] MEDS ORDERED: diazePAM 5 MG TABLET PO PRN (18:21)
[2020-08-26] MEDS ORDERED: diazePAM CARPU-JECT 10 MG/2 ML DISP.SYRIN IVPUSH PRN (18:21)
[2020-08-26 20:43] LABS: MEAN PLT VOLUME 8.8 fl (7.5-11.1); PLATELET COUNT 64 K/MM3 (134-434)
[2020-08-26] MEDS ORDERED: ACETAMINOPHEN 325 MG TABLET (FP) ONE (20:58)
[2020-08-26] MEDS ORDERED: CHLORHEXIDINE GLUCONATE 4% CLEANSER FOR DECOLONIZATION TP SCH (22:00)
[2020-08-26] MEDS ORDERED: MUPIROCIN 2% TOPICAL OINTMENT FOR DECOLONIZATION NS SCH (22:00)
[2020-08-26] MEDS ORDERED: ACETAMINOPHEN 325 MG TABLET (FP) PO ONE (22:01)
[2020-08-26 22:02] LABS: HEMATOCRIT 29.4 % (35.4-49); HEMOGLOBIN 9.1 GM/dL (11.7-16.9); MCH 21.5 pg (25.7-33.7); MCHC 30.9 g/dl (32.0-35.9); MEAN CELL VOLUME 69.5 fl (80-96); RBC 4.23 M/mm3 (4.00-5.60); RDW 23.1 % (11.9-15.9)
[2020-08-26] MEDS ORDERED: diazePAM 5 MG TABLET PO SCH (23:00)
[2020-08-26 23:25] LABS: MEAN PLT VOLUME 8.8 fl (7.5-11.1); PLATELET COUNT 70 K/MM3 (134-434)
[2020-08-27] MEDS: SODIUM CHLORIDE 1,000 ML IV SCH (03:00)
[2020-08-27] MEDS ORDERED: LORazepam 1 MG TABLET PO SCH (05:00)
[2020-08-27] MEDS: diazePAM 5 MG TABLET PO SCH ×3 (05:51→21:02)
[2020-08-27] MEDS ORDERED: diazePAM 5 MG TABLET PO SCH (06:00)
[2020-08-27 09:30] LABS: BASO % 0.4 % (0-2.0); HEMATOCRIT 33.4 % (35.4-49); HEMOGLOBIN 10.1 GM/dL (11.7-16.9); LYMPH % 16.8 % (8-40); MCH 21.4 pg (25.7-33.7); MCHC 30.2 g/dl (32.0-35.9); MEAN CELL VOLUME 70.8 fl (80-96); MEAN PLT VOLUME 10.4 fl (7.5-11.1); MONO % 8.4 % (3.8-10.2); NEUT % 72.4 % (42.8-82.8); PLATELET COUNT 63 K/MM3 (134-434); RBC 4.72 M/mm3 (4.00-5.60); RDW 23.6 % (11.9-15.9); WHITE BLOOD COUNT 4.6 K/mm3 (4.0-10.0)
[2020-08-27 09:56] LABS: POTASSIUM 3.2 mmol/L (3.5-5.1)
[2020-08-27 09:59] LABS: ALBUMIN 3.5 g/dl (3.4-5.0); BLOOD UREA NITROGEN 7.1 mg/dL (7-18); MAGNESIUM 1.6 mg/dL (1.8-2.4)
[2020-08-27] MEDS ORDERED: THIAMINE HCL 100 MG TABLET (FP) PO SCH (10:00)
[2020-08-27 10:02] LABS: CREATININE 0.4 mg/dL (0.55-1.3); PHOSPHOROUS 2.2 mg/dL (2.5-4.9)
[2020-08-27 10:03] LABS: BILIRUBIN,TOTAL 1.3 mg/dL (0.2-1); TOT PROT 7.1 g/dl (6.4-8.2)
[2020-08-27] MEDS: PANTOPRAZOLE 40 MG TABLET PO SCH (10:14)
[2020-08-27] MEDS: THIAMINE HCL 100 MG TABLET (FP) PO SCH (10:15)
[2020-08-27] MEDS: MULTIVITAMINS (DAILY MVI) TABLET (FP) PO SCH (10:15)
[2020-08-27] MEDS: FOLIC ACID 1 MG TABLET (FP) PO SCH (10:15)
[2020-08-27] MEDS: KCL 10 MEQ IVPB 10 MEQ/100 ML INFUS.BAG IVPB SCH ×3 (10:29→13:33)
[2020-08-27] MEDS ORDERED: THIAMINE HCL 200 MG/2 ML VIAL IVPB ONE (12:24)
[2020-08-27] MEDS ORDERED: MAGNESIUM SULF 50% (8.12 MEQ/2 ML-1 GM VIAL) IVPB ONE (13:45)
[2020-08-27] MEDS ORDERED: MAG HYDROX/AL HYDROX/SIMETH 30 ML UNIT-DOSE CUP PO ONE (13:45)
[2020-08-27] MEDS ORDERED: SODIUM PHOSPHATE - 30 MM in SODIUM CHLORIDE 500 ML IVPB ONE (14:00)
[2020-08-27] MEDS ORDERED: POTASSIUM CHLORIDE ORAL LIQUID 20 MEQ/15 ML PO ONE (14:11)
[2020-08-27] MEDS ORDERED: PT OWN MED DRAWER 7, Y5N ONE (14:40)
[2020-08-27] MEDS ORDERED: MAGNESIUM 2GM/50ML STERILE WATER IVPB IVPB ONE (14:45)
[2020-08-27 20:38] LABS: BASO % 0.4 % (0-2.0); EOS % 1.7 % (0-4.5); HEMATOCRIT 30.3 % (35.4-49); LYMPH % 19.5 % (8-40); MCH 21.2 pg (25.7-33.7); MCHC 29.8 g/dl (32.0-35.9); MEAN CELL VOLUME 70.9 fl (80-96); MEAN PLT VOLUME 8.9 fl (7.5-11.1); MONO % 10.5 % (3.8-10.2); NEUT % 67.9 % (42.8-82.8); PLATELET COUNT 79 K/MM3 (134-434); RBC 4.27 M/mm3 (4.00-5.60); RDW 23.5 % (11.9-15.9); WHITE BLOOD COUNT 4.3 K/mm3 (4.0-10.0)
[2020-08-27 21:20] LABS: PLATELET ESTIMATE DECREASED
[2020-08-28] MEDS ORDERED: LORazepam 0.5 MG TABLET PO PRN
[2020-08-28] MEDS ORDERED: LORazepam 0.5 MG TABLET PO SCH (05:00)
[2020-08-28] MEDS ORDERED: diazePAM 5 MG TABLET PO SCH (06:00)
[2020-08-28] MEDS: diazePAM 5 MG TABLET PO SCH ×2 (06:21→17:59)
[2020-08-28 07:48] LABS: POTASSIUM 3.4 mmol/L (3.5-5.1)
[2020-08-28 07:51] LABS: ALBUMIN 3.3 g/dl (3.4-5.0); BASO % 0.6 % (0-2.0); CALCIUM 8.4 mg/dL (8.5-10.1); EOS % 2.2 % (0-4.5); HEMOGLOBIN 9.5 GM/dL (11.7-16.9); LYMPH % 23.7 % (8-40); MCH 21.8 pg (25.7-33.7); MCHC 30.8 g/dl (32.0-35.9); MEAN CELL VOLUME 70.8 fl (80-96); MONO % 7.9 % (3.8-10.2); NEUT % 65.6 % (42.8-82.8); PLATELET COUNT 77 K/MM3 (134-434); RBC 4.38 M/mm3 (4.00-5.60); RDW 23.8 % (11.9-15.9); WHITE BLOOD COUNT 3.5 K/mm3 (4.0-10.0)
[2020-08-28 07:52] LABS: BLOOD UREA NITROGEN 5.9 mg/dL (7-18); MAGNESIUM 1.9 mg/dL (1.8-2.4)
[2020-08-28 07:54] LABS: CREATININE 0.4 mg/dL (0.55-1.3); IRON SERUM 14 ug/dL (50-175); TOTAL IRON BINDING CAPACITY 362 ug/dL (250-450)
[2020-08-28 07:55] LABS: PHOSPHOROUS 2.4 mg/dL (2.5-4.9)
[2020-08-28 07:56] LABS: BILIRUBIN,TOTAL 0.7 mg/dL (0.2-1); TOT PROT 6.5 g/dl (6.4-8.2)
[2020-08-28] MEDS: MULTIVITAMINS (DAILY MVI) TABLET (FP) PO SCH (10:32)
[2020-08-28] MEDS: THIAMINE HCL 100 MG TABLET (FP) PO SCH (10:32)
[2020-08-28] MEDS: FOLIC ACID 1 MG TABLET (FP) PO SCH (10:32)
[2020-08-28] MEDS: PANTOPRAZOLE 40 MG TABLET PO SCH (10:32)
[2020-08-28] MEDS: FERROUS SO4 325 MG TABLET (FP) PO SCH (12:27)
[2020-08-28] MEDS ORDERED: POTASSIUM PHOSPHATE 15 MM in SODIUM CHLORIDE 250 ML IVPB ONE (16:24)
[2020-08-28] MEDS ORDERED: POTASSIUM CHLORIDE TABS 20 MEQ TABLET.ER (FP) PO ONE (16:24)
[2020-08-28] MEDS ORDERED: NAPH,MB-DB/K PH,MBDB POWDER PACKET PO ONE (20:00)
[2020-08-29] MEDS ORDERED: LORazepam 0.5 MG TABLET PO ONE (05:00)
[2020-08-29] MEDS ORDERED: diazePAM 5 MG TABLET PO ONE ×2 (06:00)
[2020-08-29 09:26] LABS: HEMATOCRIT 30.4 % (35.4-49); HEMOGLOBIN 9.4 GM/dL (11.7-16.9); PLATELET COUNT 99 K/MM3 (134-434); RBC 4.29 M/mm3 (4.00-5.60); RDW 24.9 % (11.9-15.9); WHITE BLOOD COUNT 3.1 K/mm3 (4.0-10.0)
[2020-08-29 09:46] LABS: POTASSIUM 3.7 mmol/L (3.5-5.1)
[2020-08-29 09:57] LABS: MAGNESIUM 1.6 mg/dL (1.8-2.4)
[2020-08-29 09:59] LABS: CREATININE 0.4 mg/dL (0.55-1.3)
[2020-08-29 10:00] LABS: PHOSPHOROUS 3.2 mg/dL (2.5-4.9)
[2020-08-29] MEDS ORDERED: PT OWN MED DRAWER 7, Y5N ONE (10:57)
[2020-08-29] MEDS: FERROUS SO4 325 MG TABLET (FP) PO SCH (11:03)
[2020-08-29] MEDS: THIAMINE HCL 100 MG TABLET (FP) PO SCH (11:03)
[2020-08-29] MEDS: MULTIVITAMINS (DAILY MVI) TABLET (FP) PO SCH (11:03)
[2020-08-29] MEDS: PANTOPRAZOLE 40 MG TABLET PO SCH (11:03)
[2020-08-29] MEDS: FOLIC ACID 1 MG TABLET (FP) PO SCH (11:03)
[2020-08-29 15:09] VITALS: BP 127/76; PULSE 101; TEMP 97.7
== END 2020-08-29 15:29 | disposition home or self-care (01) | DRG 241 ==
LOC: JER 12:00 → JERBED 13:35 → JICU 20:36 → J8W 08-26 18:24
PROVIDERS: ADMIT Internal Medicine Pulmonary Disease; ATTEND Internal Medicine
PROC: 0DB68ZX Excision of Stomach, Via Natural or Artificial Opening Endoscopic, Diagnostic (ICD-10-PCS; 2020-08-26)
PROC: 0DB58ZX Excision of Esophagus, Via Natural or Artificial Opening Endoscopic, Diagnostic (ICD-10-PCS; principal; 2020-08-26 11:00)
DX: K29.71 Gastritis, unspecified, with bleeding (principal); D61.818 Other pancytopenia; E83.42 Hypomagnesemia; K92.0 Hematemesis; E83.39 Other disorders of phosphorus metabolism; E83.51 Hypocalcemia; E87.1 Hypo-osmolality and hyponatremia; J98.4 Other disorders of lung; K20.80 Other esophagitis without bleeding; E87.6 Hypokalemia; N40.0 Benign prostatic hyperplasia without lower urinary tract symptoms; F10.130 Alcohol abuse with withdrawal, uncomplicated; R74.01 Elevation of levels of liver transaminase levels; R79.89 Other specified abnormal findings of blood chemistry
CPT/HCPCS: 36415; 71045-TC-FY; 80048; 80053; 80307; 82140; 82272; 82550; 82553; 82607; 82728; 82746; 83540; 83550; 83605; 83690; 83735; 83921; 84100; 84484; 85025; 85027; 85610; 85730; 86850; 86900; 86901; 86922; 93005; 93010; 97116-GP; 97161-GP; 99291; C9803; J0131; U0003; U0005

== ENCOUNTER 2020-12-10 09:06 | Inpatient (IN) | payer OTHER ==
[2020-12-10 09:35] VITALS: BMI 27.9
[2020-12-10] MEDS ORDERED: ACETAMINOPHEN 325 MG TABLET (FP) PO PRN ×2 (09:42)
[2020-12-10] MEDS ORDERED: MAG HYDROX/AL HYDROX/SIMETH 30 ML UNIT-DOSE CUP PO PRN (09:42)
[2020-12-10] MEDS ORDERED: MENTHOL/PHENOL 1 EACH UD MM PRN (09:42)
[2020-12-10] MEDS ORDERED: IBUPROFEN 400 MG TABLET (FP) PO PRN (09:42)
[2020-12-10] MEDS ORDERED: BISMUTH SUBSALICYLATE 524 MG/30 ML PO PRN (09:42)
[2020-12-10] MEDS ORDERED: MAGNESIUM HYDROX 2400MG/30ML ORAL SUSPENSION 30 ML CUP PO PRN (09:42)
[2020-12-10] MEDS ORDERED: ONDANSETRON *ODT* 4 MG TABLET SL PRN (09:42)
[2020-12-10] MEDS ORDERED: LORazepam 1 MG TABLET PO PRN (09:42)
[2020-12-10] MEDS ORDERED: METHOCARBAMOL 500 MG TABLET PO PRN (09:42)
[2020-12-10] MEDS ORDERED: MAGNESIUM CITRATE 300 ML BOTTLE PO PRN (09:42)
[2020-12-10] MEDS ORDERED: MAG HYDROX/AL HYDROX/SIMETH 30 ML UNIT-DOSE CUP ONE (10:15)
[2020-12-10] MEDS: LORazepam 2 MG TABLET PO SCH ×3 (22:58→23:50)
[2020-12-10] MEDS: MELATONIN 5 MG TABLETS PO SCH (22:59)
[2020-12-10] MEDS: PRENATAL VITAMINS W/ FOLIC ACID TABLET (FP) PO SCH (23:00)
[2020-12-10] MEDS: hydrOXYzine PAMOATE 25 MG CAPSULE (FP) PO SCH ×2 (23:00→23:50)
[2020-12-10] MEDS: THIAMINE HCL 100 MG TABLET (FP) PO SCH (23:00)
[2020-12-11] MEDS: LORazepam 2 MG TABLET PO SCH ×4 (07:47→22:31)
[2020-12-11] MEDS: hydrOXYzine PAMOATE 25 MG CAPSULE (FP) PO SCH ×2 (07:47→10:43)
[2020-12-11] MEDS: PRENATAL VITAMINS W/ FOLIC ACID TABLET (FP) PO SCH (10:43)
[2020-12-11] MEDS ORDERED: hydrOXYzine PAMOATE 25 MG CAPSULE (FP) PO PRN (11:12)
[2020-12-11 13:30] LABS: HEMATOCRIT 39.7 % (35.4-49); MCH 21.7 pg (25.7-33.7); MCHC 30.3 g/dl (32.0-35.9); MEAN CELL VOLUME 71.5 fl (80-96); PLATELET COUNT 240 10^3/uL (134-434); RBC 5.55 M/mm3 (4.00-5.60); WHITE BLOOD COUNT 3.7 K/mm3 (4.0-10.0)
[2020-12-11 13:42] LABS: CALCIUM 8.9 mg/dL (8.5-10.1)
[2020-12-11 13:45] LABS: CREATININE 0.5 mg/dL (0.55-1.3)
[2020-12-11 13:47] LABS: BILIRUBIN,TOTAL 1.2 mg/dL (0.2-1)
[2020-12-11] MEDS: THIAMINE HCL 100 MG TABLET (FP) PO SCH (22:31)
[2020-12-11] MEDS: MELATONIN 5 MG TABLETS PO SCH (22:31)
[2020-12-12] MEDS: LORazepam 1 MG TABLET PO SCH ×4 (06:24→22:20)
[2020-12-12] MEDS: PRENATAL VITAMINS W/ FOLIC ACID TABLET (FP) PO SCH (10:13)
[2020-12-12] MEDS ORDERED: LACTULOSE 20 GM/30 ML UDC (FOR ORAL USE ONLY) PO ONE (14:28)
[2020-12-12] MEDS: THIAMINE HCL 100 MG TABLET (FP) PO SCH (22:20)
[2020-12-12] MEDS: MELATONIN 5 MG TABLETS PO SCH (22:21)
[2020-12-13] MEDS ORDERED: LORazepam 0.5 MG TABLET PO PRN
[2020-12-13] MEDS: LORazepam 0.5 MG TABLET PO SCH ×4 (06:48→23:58)
[2020-12-13 10:25] LABS: CALCIUM 8.9 mg/dL (8.5-10.1)
[2020-12-13 10:26] LABS: BLOOD UREA NITROGEN 9.3 mg/dL (7-18)
[2020-12-13 10:29] LABS: CREATININE 0.5 mg/dL (0.55-1.3)
[2020-12-13] MEDS: PRENATAL VITAMINS W/ FOLIC ACID TABLET (FP) PO SCH (10:33)
[2020-12-13] MEDS: MELATONIN 5 MG TABLETS PO SCH (23:58)
[2020-12-13] MEDS: THIAMINE HCL 100 MG TABLET (FP) PO SCH (23:58)
[2020-12-14] MEDS ORDERED: LORazepam 0.5 MG TABLET PO ONE (05:00)
[2020-12-14] MEDS: PRENATAL VITAMINS W/ FOLIC ACID TABLET (FP) PO SCH (10:26)
[2020-12-14 12:04] VITALS: BP 148/91; PULSE 100; TEMP 96.9
== END 2020-12-14 10:05 | disposition home or self-care (01) | DRG 775 ==
LOC: YASAS 09:06 → Y3N 19:41
PROVIDERS: ADMIT Allergy & Immunology; ATTEND Allergy & Immunology
PROC: HZ2ZZZZ Detoxification Services for Substance Abuse Treatment (ICD-10-PCS; principal; 2020-12-10)
DX: F10.230 Alcohol dependence with withdrawal, uncomplicated (principal); E72.20 Disorder of urea cycle metabolism, unspecified; I10 Essential (primary) hypertension; K29.70 Gastritis, unspecified, without bleeding; R56.9 Unspecified convulsions; M54.5 Low back pain; G89.29 Other chronic pain; R73.9 Hyperglycemia, unspecified; Z87.19 Personal history of other diseases of the digestive system; Z86.11 Personal history of tuberculosis
CPT/HCPCS: 36415; 71045-TC-FY; 71275-TC; 80048; 80053; 82140; 82550; 82553; 82962; 83690; 83735; 84484; 85025; 85027; 85610; 86780; 93005; 93010; 99283-25; C9803; Q9967; U0003; U0005

== ENCOUNTER 2021-04-02 11:01 | Inpatient (IN) | payer OTHER ==
[2021-04-02] MEDS ORDERED: MAGNESIUM CITRATE 300 ML BOTTLE PO PRN (11:58)
[2021-04-02] MEDS ORDERED: ONDANSETRON *ODT* 4 MG TABLET SL PRN (11:58)
[2021-04-02] MEDS ORDERED: BISMUTH SUBSALICYLATE 524 MG/30 ML PO PRN (11:58)
[2021-04-02] MEDS ORDERED: MAG HYDROX/AL HYDROX/SIMETH 30 ML UNIT-DOSE CUP PO PRN (11:58)
[2021-04-02] MEDS ORDERED: LORazepam 1 MG TABLET PO PRN (11:58)
[2021-04-02] MEDS ORDERED: IBUPROFEN 400 MG TABLET (FP) PO PRN (11:58)
[2021-04-02] MEDS ORDERED: MAGNESIUM HYDROX 2400MG/30ML ORAL SUSPENSION 30 ML CUP PO PRN (11:58)
[2021-04-02] MEDS ORDERED: ACETAMINOPHEN 325 MG TABLET (FP) PO PRN ×2 (11:58)
[2021-04-02] MEDS ORDERED: MENTHOL/PHENOL 1 EACH UD MM PRN (11:58)
[2021-04-02 12:32] VITALS: BMI 29.8
[2021-04-02] MEDS: hydrOXYzine PAMOATE 25 MG CAPSULE (FP) PO SCH ×3 (14:54→22:19)
[2021-04-02 17:35] LABS: HEMATOCRIT 30.1 % (35.4-49); MCHC 30.1 g/dl (32.0-35.9); MEAN CELL VOLUME 62.7 fl (80-96); PLATELET COUNT 195 10^3/uL (134-434); RDW 21.8 % (11.9-15.9); WHITE BLOOD COUNT 6.5 K/mm3 (4.0-10.0)
[2021-04-02 17:38] LABS: MCH 18.9 pg (25.7-33.7)
[2021-04-02 17:42] LABS: ALBUMIN 4.3 g/dl (3.4-5.0); BLOOD UREA NITROGEN 10.2 mg/dL (7-18)
[2021-04-02 17:43] LABS: CALCIUM 8.3 mg/dL (8.5-10.1)
[2021-04-02 17:44] LABS: CREATININE 0.5 mg/dL (0.55-1.3)
[2021-04-02 17:47] LABS: BILIRUBIN,TOTAL 0.5 mg/dL (0.2-1); TOT PROT 8.3 g/dl (6.4-8.2)
[2021-04-02] MEDS: LORazepam 2 MG TABLET PO SCH ×2 (18:01→22:19)
[2021-04-02] MEDS: THIAMINE HCL 100 MG TABLET (FP) PO SCH (22:19)
[2021-04-02] MEDS: MELATONIN 5 MG TABLETS PO SCH (22:19)
[2021-04-02] MEDS: METHOCARBAMOL 500 MG TABLET PO PRN (22:19)
[2021-04-03] MEDS: LORazepam 2 MG TABLET PO SCH ×4 (07:36→22:29)
[2021-04-03] MEDS: hydrOXYzine PAMOATE 25 MG CAPSULE (FP) PO SCH ×5 (07:36→22:28)
[2021-04-03] MEDS: PRENATAL VITAMINS W/ FOLIC ACID TABLET (FP) PO SCH (10:27)
[2021-04-03] MEDS: MELATONIN 5 MG TABLETS PO SCH (22:28)
[2021-04-03] MEDS: THIAMINE HCL 100 MG TABLET (FP) PO SCH (22:29)
[2021-04-04] MEDS: LORazepam 1 MG TABLET PO SCH ×4 (06:02→22:06)
[2021-04-04] MEDS: hydrOXYzine PAMOATE 25 MG CAPSULE (FP) PO SCH ×5 (06:02→22:08)
[2021-04-04] MEDS: PRENATAL VITAMINS W/ FOLIC ACID TABLET (FP) PO SCH (10:18)
[2021-04-04] MEDS: THIAMINE HCL 100 MG TABLET (FP) PO SCH (22:07)
[2021-04-04] MEDS: MELATONIN 5 MG TABLETS PO SCH (22:07)
[2021-04-05] MEDS ORDERED: LORazepam 0.5 MG TABLET PO PRN
[2021-04-05] MEDS: hydrOXYzine PAMOATE 25 MG CAPSULE (FP) PO SCH ×5 (06:30→22:26)
[2021-04-05] MEDS: LORazepam 0.5 MG TABLET PO SCH ×4 (06:30→22:26)
[2021-04-05] MEDS: PRENATAL VITAMINS W/ FOLIC ACID TABLET (FP) PO SCH (10:18)
[2021-04-05] MEDS ORDERED: amLODIPine BESYLATE 5 MG TABLET (FP) PO ONE (17:46)
[2021-04-05] MEDS: MELATONIN 5 MG TABLETS PO SCH (22:26)
[2021-04-05] MEDS: THIAMINE HCL 100 MG TABLET (FP) PO SCH (22:26)
[2021-04-05] MEDS: METHOCARBAMOL 500 MG TABLET PO PRN (22:26)
[2021-04-06] MEDS ORDERED: LORazepam 0.5 MG TABLET PO ONE (05:00)
[2021-04-06] MEDS: hydrOXYzine PAMOATE 25 MG CAPSULE (FP) PO SCH (06:16)
[2021-04-06 08:48] VITALS: BP 128/66; PULSE 94; TEMP 97.2
== END 2021-04-06 09:39 | disposition home or self-care (01) | DRG 775 ==
LOC: YASAS 11:01 → Y3N 12:48
PROVIDERS: ADMIT Allergy & Immunology; ATTEND Allergy & Immunology
PROC: HZ2ZZZZ Detoxification Services for Substance Abuse Treatment (ICD-10-PCS; principal; 2021-04-02)
DX: F10.230 Alcohol dependence with withdrawal, uncomplicated (principal); F10.24 Alcohol dependence with alcohol-induced mood disorder; F10.282 Alcohol dependence with alcohol-induced sleep disorder; F10.220 Alcohol dependence with intoxication, uncomplicated; F32.A Depression, unspecified; D64.9 Anemia, unspecified; E78.5 Hyperlipidemia, unspecified; E78.00 Pure hypercholesterolemia, unspecified; I10 Essential (primary) hypertension; M54.50 Low back pain, unspecified; G89.29 Other chronic pain; N40.0 Benign prostatic hyperplasia without lower urinary tract symptoms; Z86.11 Personal history of tuberculosis; Z87.19 Personal history of other diseases of the digestive system; Z86.69 Personal history of other diseases of the nervous system and sense organs
CPT/HCPCS: 36415; 80053; 85027; 86780; C9803; U0003; U0005

== ENCOUNTER 2021-04-19 19:32 | Inpatient (IN) | payer OTHER ==
[2021-04-19] MEDS ORDERED: PANTOPRAZOLE SODIUM 40 MG VIAL IVPUSH ONE (20:11)
[2021-04-19] MEDS ORDERED: MAG HYDROX/AL HYDROX/SIMETH 30 ML UNIT-DOSE CUP PO ONE (20:12)
[2021-04-19] MEDS ORDERED: MAG HYDROX/AL HYDROX/SIMETH 30 ML UNIT-DOSE CUP ONE (20:19)
[2021-04-19] MEDS ORDERED: PANTOPRAZOLE SODIUM 80 MG/200 ML BAG IVPB ONE (20:19)
[2021-04-19] MEDS ORDERED: ACETAMINOPHEN 1000 MG/100 ML VIAL IVPB ONE (20:20)
[2021-04-19 20:36] LABS: EOS % 0.2 % (0-4.5); HEMATOCRIT 28.6 % (35.4-49); HEMOGLOBIN 8.4 GM/dL (11.7-16.9); INR 1.11 (0.83-1.09); LYMPH % 23.2 % (8-40); MCHC 29.5 g/dl (32.0-35.9); MEAN CELL VOLUME 61.7 fl (80-96); MEAN PLT VOLUME 8.3 fl (7.5-11.1); MONO % 5.2 % (3.8-10.2); NEUT % 70.4 % (42.8-82.8); PROTHROMBIN TIME (PATIENT) 12.4 SEC (9.7-13.0); RBC 4.64 M/mm3 (4.00-5.60); RDW 23.3 % (11.9-15.9); WHITE BLOOD COUNT 4.8 K/mm3 (4.0-10.0)
[2021-04-19 20:39] LABS: ACTIVATED PTT 29.3 SECONDS (25.2-36.5)
[2021-04-19 20:44] LABS: CHLORIDE 105 mmol/L (98-107); SODIUM 141 mmol/L (136-145)
[2021-04-19 20:45] LABS: CALCIUM 8.2 mg/dL (8.5-10.1)
[2021-04-19 20:47] LABS: ALBUMIN 3.9 g/dl (3.4-5.0); ANION GAP 12 MMOL/L (8-16); BLOOD UREA NITROGEN 27.2 mg/dL (7-18); CO2 25 mmol/L (21-32); GLUCOSE,RANDOM 92 mg/dL (74-106); LIPASE 267 U/L (73-393); MAGNESIUM 2.4 mg/dL (1.8-2.4)
[2021-04-19] MEDS ORDERED: ACETAMINOPHEN INJECTION 100 ML IVPB ONE (20:49)
[2021-04-19 20:50] LABS: BILIRUBIN,TOTAL 0.5 mg/dL (0.2-1); CREATININE 1.2 mg/dL (0.55-1.3); MCH 18.2 pg (25.7-33.7); SGOT/AST 56 U/L (15-37); SGPT/ALT 37 U/L (13-61)
[2021-04-19 20:52] LABS: TOT PROT 7.7 g/dl (6.4-8.2)
[2021-04-19 20:53] LABS: ALK PHOS 57 U/L (45-117)
[2021-04-19 22:04] LABS: ANISOCYTOSIS 1+; MACROCYTOSIS 0; OVALOCYTE 1+; PLATELET ESTIMATE DECREASED; TARGET CELLS 1+
[2021-04-19 22:11] LABS: PLATELET COUNT 105 10^3/uL (134-434)
[2021-04-20] MEDS ORDERED: LORazepam 2 MG/ML SDV VIAL IVPUSH PRN (03:05)
[2021-04-20] MEDS ORDERED: KCL 10 MEQ IVPB 10 MEQ/100 ML INFUS.BAG IVPB ONE ×3 (03:34→05:44)
[2021-04-20] MEDS: KCL 10 MEQ IVPB 10 MEQ/100 ML INFUS.BAG IVPB SCH ×3 (03:50→05:51)
[2021-04-20] MEDS: SODIUM CHLORIDE 1,000 ML IV SCH ×2 (03:50→23:11)
[2021-04-20 03:58] LABS: EPI CELLS 7 /uL (0-25.1); HYALINE CASTS 5 /uL (0-3.1); URINE APPEARANCE CLEAR; URINE BACTERIA 3 /uL (0-1359); URINE BILIRUBIN NEGATIVE (NEGATIVE); URINE COLOR YELLOW; URINE GLUCOSE (UA) NEGATIVE (NEGATIVE); URINE KETONE 1+ (NEGATIVE); URINE LEUK ESTERASE NEGATIVE (NEGATIVE); URINE NITRITE NEGATIVE (NEGATIVE); URINE PROTEIN 1+ (NEGATIVE); URINE RBC 3 /uL (0-23.9); URINE UROBILINOGEN 0.2 mg/dL (0.2-1.0); URINE WBC 22 /uL (0-25.8)
[2021-04-20] MEDS ORDERED: FOLIC ACID INJECTION - 1 MG, THIAMINE HCL 100 MG, MULTIVIT INJECTION ADULT 10 ML in SOD... IVPB ONE (04:00)
[2021-04-20 06:50] LABS: ALBUMIN 3.8 g/dl (3.4-5.0); BLOOD UREA NITROGEN 22.9 mg/dL (7-18); CALCIUM 7.7 mg/dL (8.5-10.1)
[2021-04-20 06:53] LABS: CREATININE 0.7 mg/dL (0.55-1.3); PHOSPHOROUS 3.5 mg/dL (2.5-4.9)
[2021-04-20 06:54] LABS: BILIRUBIN,TOTAL 0.8 mg/dL (0.2-1)
[2021-04-20 06:55] LABS: TOT PROT 7.5 g/dl (6.4-8.2)
[2021-04-20 06:56] LABS: HEMATOCRIT 27.4 % (35.4-49); MCH 18.4 pg (25.7-33.7); MCHC 29.2 g/dl (32.0-35.9); MEAN CELL VOLUME 63.2 fl (80-96); MEAN PLT VOLUME 8.7 fl (7.5-11.1); PLATELET COUNT 76 10^3/uL (134-434); RBC 4.33 M/mm3 (4.00-5.60); RDW 23.6 % (11.9-15.9); WHITE BLOOD COUNT 3.5 K/mm3 (4.0-10.0)
[2021-04-20] MEDS ORDERED: THIAMINE HCL 100 MG TABLET (FP) ONE (07:35)
[2021-04-20] MEDS ORDERED: FOLIC ACID 1 MG TABLET (FP) ONE (07:35)
[2021-04-20] MEDS ORDERED: PANTOPRAZOLE SODIUM 40 MG VIAL ONE (07:36)
[2021-04-20] MEDS ORDERED: LORazepam 2 MG/ML SDV VIAL ONE ×2 (08:00→16:15)
[2021-04-20 09:21] LABS: ANISOCYTOSIS 2+; MACROCYTOSIS 0; OVALOCYTE 1+; PLATELET ESTIMATE DECREASED; TARGET CELLS 1+; TEAR DROP CELLS 1+
[2021-04-20] MEDS: FOLIC ACID 1 MG TABLET (FP) PO SCH (09:24)
[2021-04-20] MEDS: THIAMINE HCL 100 MG TABLET (FP) PO SCH (09:24)
[2021-04-20] MEDS ORDERED: PANTOPRAZOLE SODIUM 40 MG VIAL IVPUSH SCH (10:00)
[2021-04-20] MEDS ORDERED: ACETAMINOPHEN 1000 MG/100 ML VIAL IVPB PRN (10:38)
[2021-04-20] MEDS: LORazepam 2 MG/ML SDV VIAL IVPUSH SCH ×2 (16:22→23:07)
[2021-04-20 22:58] VITALS: BMI 30.2
[2021-04-21 00:55] LABS: BASO % 0.6 % (0-2.0); EOS % 1.2 % (0-4.5); HEMATOCRIT 28.7 % (35.4-49); HEMOGLOBIN 8.5 GM/dL (11.7-16.9); LYMPH % 27.2 % (8-40); MCHC 29.7 g/dl (32.0-35.9); MEAN CELL VOLUME 62.6 fl (80-96); MEAN PLT VOLUME 8.4 fl (7.5-11.1); MONO % 6.4 % (3.8-10.2); NEUT % 64.6 % (42.8-82.8); PLATELET COUNT 65 10^3/uL (134-434); RBC 4.59 M/mm3 (4.00-5.60); RDW 23.4 % (11.9-15.9)
[2021-04-21 01:04] LABS: MCH 18.6 pg (25.7-33.7)
[2021-04-21] MEDS: LORazepam 2 MG/ML SDV VIAL IVPUSH SCH ×4 (06:12→23:35)
[2021-04-21] MEDS: SODIUM CHLORIDE 1,000 ML IV SCH (06:12)
[2021-04-21 07:03] LABS: HEMATOCRIT 29.3 % (35.4-49); HEMOGLOBIN 8.7 GM/dL (11.7-16.9); MCHC 29.7 g/dl (32.0-35.9); MEAN CELL VOLUME 62.5 fl (80-96); MEAN PLT VOLUME 9.1 fl (7.5-11.1); PLATELET COUNT 84 10^3/uL (134-434); RBC 4.69 M/mm3 (4.00-5.60); WHITE BLOOD COUNT 3.6 K/mm3 (4.0-10.0)
[2021-04-21 07:18] LABS: MCH 18.6 pg (25.7-33.7)
[2021-04-21 07:19] LABS: INR 1.19 (0.83-1.09); PROTHROMBIN TIME (PATIENT) 13.9 SEC (9.7-13.0)
[2021-04-21] MEDS: PANTOPRAZOLE 40 MG TABLET PO SCH (09:16)
[2021-04-21] MEDS: FOLIC ACID 1 MG TABLET (FP) PO SCH (09:16)
[2021-04-21] MEDS: THIAMINE HCL 100 MG TABLET (FP) PO SCH (09:16)
[2021-04-21 10:18] LABS: BILIRUBIN,DIRECT 0.3 mg/dL (0.0-0.2); CREATININE 0.6 mg/dL (0.55-1.3)
[2021-04-21 10:19] LABS: ANISOCYTOSIS 2+; MACROCYTOSIS 0; OVALOCYTE 1+; PLATELET ESTIMATE DECREASED
[2021-04-21 12:01] LABS: ALBUMIN 3.6 g/dl (3.4-5.0); BILIRUBIN,TOTAL 1.1 mg/dL (0.2-1); BLOOD UREA NITROGEN 9.8 mg/dL (7-18); CALCIUM 7.9 mg/dL (8.5-10.1); TOT PROT 7.2 g/dl (6.4-8.2)
[2021-04-21] MEDS ORDERED: MIDAZOLAM HCL 2 MG/2 ML SINGLE DOSE VIAL ONE (12:19)
[2021-04-21] MEDS ORDERED: EPINEPHrine/PF 1 MG/1 ML (1:1,000) AMPULE ONE (12:35)
[2021-04-21] MEDS ORDERED: BISACODYL 5 MG TABLET.DR (FP) PO ONE (17:00)
[2021-04-21] MEDS ORDERED: PEG 3350/NA SULF BICARB CL/KCL 4000 ML SOLN.RECON PO ONE (18:00)
[2021-04-21 20:22] LABS: BASO % 1.1 % (0-2.0); EOS % 1.4 % (0-4.5); HEMATOCRIT 30.3 % (35.4-49); HEMOGLOBIN 9.1 GM/dL (11.7-16.9); LYMPH % 40.2 % (8-40); MCHC 30.2 g/dl (32.0-35.9); MEAN CELL VOLUME 62.7 fl (80-96); MEAN PLT VOLUME 8.2 fl (7.5-11.1); MONO % 7.9 % (3.8-10.2); NEUT % 49.4 % (42.8-82.8); PLATELET COUNT 84 10^3/uL (134-434); RBC 4.83 M/mm3 (4.00-5.60); RDW 23.1 % (11.9-15.9); WHITE BLOOD COUNT 3.2 K/mm3 (4.0-10.0)
[2021-04-21 20:23] LABS: MCH 18.9 pg (25.7-33.7)
[2021-04-21 21:03] LABS: MAGNESIUM 1.7 mg/dL (1.8-2.4); PHOSPHOROUS 2.5 mg/dL (2.5-4.9)
[2021-04-22] MEDS: SODIUM CHLORIDE 1,000 ML IV SCH (03:30)
[2021-04-22] MEDS: LORazepam 2 MG/ML SDV VIAL IVPUSH SCH ×4 (06:17→23:15)
[2021-04-22] MEDS ORDERED: MAGNESIUM SULF 50% (8.12 MEQ/2 ML-1 GM VIAL) IVPB ONE (06:45)
[2021-04-22 07:33] LABS: HEMATOCRIT 29.8 % (35.4-49); HEMOGLOBIN 8.8 GM/dL (11.7-16.9); MCHC 29.4 g/dl (32.0-35.9); MEAN CELL VOLUME 63.3 fl (80-96); MEAN PLT VOLUME 9.3 fl (7.5-11.1); PLATELET COUNT 70 10^3/uL (134-434); RBC 4.71 M/mm3 (4.00-5.60); RDW 23.3 % (11.9-15.9); WHITE BLOOD COUNT 3.4 K/mm3 (4.0-10.0)
[2021-04-22 07:34] LABS: MCH 18.6 pg (25.7-33.7)
[2021-04-22] MEDS: PANTOPRAZOLE 40 MG TABLET PO SCH ×2 (08:38→09:57)
[2021-04-22] MEDS: THIAMINE HCL 100 MG TABLET (FP) PO SCH ×2 (08:38→09:57)
[2021-04-22] MEDS: FOLIC ACID 1 MG TABLET (FP) PO SCH ×2 (08:38→09:57)
[2021-04-22 10:56] LABS: BLOOD UREA NITROGEN 7.6 mg/dL (7-18); CREATININE 0.6 mg/dL (0.55-1.3)
[2021-04-22] MEDS: MELATONIN 5 MG TABLETS PO PRN (21:32)
[2021-04-23] MEDS: SODIUM CHLORIDE 1,000 ML IV SCH (04:00)
[2021-04-23] MEDS: LORazepam 2 MG/ML SDV VIAL IVPUSH SCH ×4 (05:36→22:36)
[2021-04-23 08:41] LABS: HEMATOCRIT 27.9 % (35.4-49); HEMOGLOBIN 8.3 GM/dL (11.7-16.9); MCHC 29.8 g/dl (32.0-35.9); MEAN CELL VOLUME 63.1 fl (80-96); MEAN PLT VOLUME 9.6 fl (7.5-11.1); PLATELET COUNT 75 10^3/uL (134-434); RBC 4.42 M/mm3 (4.00-5.60); RDW 24.1 % (11.9-15.9)
[2021-04-23 09:02] LABS: MCH 18.8 pg (25.7-33.7)
[2021-04-23] MEDS: FOLIC ACID 1 MG TABLET (FP) PO SCH (10:03)
[2021-04-23] MEDS: THIAMINE HCL 100 MG TABLET (FP) PO SCH (10:04)
[2021-04-23] MEDS: PANTOPRAZOLE 40 MG TABLET PO SCH (10:04)
[2021-04-23 10:06] LABS: CALCIUM 8.4 mg/dL (8.5-10.1); CREATININE 0.4 mg/dL (0.55-1.3)
[2021-04-23 10:48] LABS: BLOOD UREA NITROGEN 10.5 mg/dL (7-18)
[2021-04-23] MEDS ORDERED: PT OWN MED DRAWER 7, Y5N ONE (10:59)
[2021-04-23] MEDS: MELATONIN 5 MG TABLETS PO PRN (22:36)
[2021-04-24] MEDS ORDERED: LORazepam 2 MG/ML SDV VIAL IVPUSH ONE (05:00)
[2021-04-24] MEDS ORDERED: POTASSIUM CHLORIDE TABS 20 MEQ TABLET.ER (FP) PO ONE (07:32)
[2021-04-24 08:25] LABS: BLOOD UREA NITROGEN 12.7 mg/dL (7-18); CHLORIDE 106 mmol/L (98-107); GLUCOSE,RANDOM 96 mg/dL (74-106); SODIUM 140 mmol/L (136-145)
[2021-04-24 09:02] LABS: HEMATOCRIT 28.8 % (35.4-49); HEMOGLOBIN 8.3 GM/dL (11.7-16.9); MCHC 28.6 g/dl (32.0-35.9); MEAN CELL VOLUME 63.3 fl (80-96); MEAN PLT VOLUME 8.9 fl (7.5-11.1); RBC 4.55 M/mm3 (4.00-5.60); RDW 23.8 % (11.9-15.9)
[2021-04-24 09:04] LABS: MCH 18.1 pg (25.7-33.7)
[2021-04-24] MEDS: FOLIC ACID 1 MG TABLET (FP) PO SCH (09:05)
[2021-04-24] MEDS: THIAMINE HCL 100 MG TABLET (FP) PO SCH (09:06)
[2021-04-24] MEDS: PANTOPRAZOLE 40 MG TABLET PO SCH (09:06)
[2021-04-24 10:06] LABS: ANION GAP 8 MMOL/L (8-16); CALCIUM 8.5 mg/dL (8.5-10.1); CO2 27 mmol/L (21-32); CREATININE 0.6 mg/dL (0.55-1.3)
[2021-04-24 10:19] LABS: PLATELET COUNT 79 10^3/uL (134-434)
[2021-04-24 15:31] VITALS: TEMP 98.2
[2021-04-24 18:12] VITALS: BP 148/88; PULSE 84
== END 2021-04-24 19:11 | disposition home or self-care (01) | DRG 245 ==
LOC: JER 19:32 → JERBED 23:56 → OBSVTOIN 04-20 02:57 → J4W 04-20 21:48
PROVIDERS: ADMIT Internal Medicine; ATTEND Internal Medicine
PROC: 0DB98ZX Excision of Duodenum, Via Natural or Artificial Opening Endoscopic, Diagnostic (ICD-10-PCS; 2021-04-21)
PROC: 0DB58ZX Excision of Esophagus, Via Natural or Artificial Opening Endoscopic, Diagnostic (ICD-10-PCS; 2021-04-21)
PROC: 0DB68ZX Excision of Stomach, Via Natural or Artificial Opening Endoscopic, Diagnostic (ICD-10-PCS; principal; 2021-04-21 11:45)
PROC: 0D5E8ZZ Destruction of Large Intestine, Via Natural or Artificial Opening Endoscopic (ICD-10-PCS; 2021-04-22)
PROC: 0DBH8ZX Excision of Cecum, Via Natural or Artificial Opening Endoscopic, Diagnostic (ICD-10-PCS; 2021-04-22)
DX: K51.411 Inflammatory polyps of colon with rectal bleeding (principal); D61.818 Other pancytopenia; K25.4 Chronic or unspecified gastric ulcer with hemorrhage; D62 Acute posthemorrhagic anemia; K92.2 Gastrointestinal hemorrhage, unspecified; D12.0 Benign neoplasm of cecum; R17 Unspecified jaundice; K70.30 Alcoholic cirrhosis of liver without ascites; E87.6 Hypokalemia; F10.239 Alcohol dependence with withdrawal, unspecified; I10 Essential (primary) hypertension; K21.01 Gastro-esophageal reflux disease with esophagitis, with bleeding; K44.9 Diaphragmatic hernia without obstruction or gangrene; K57.90 Diverticulosis of intestine, part unspecified, without perforation or abscess without bleeding; K64.4 Residual hemorrhoidal skin tags
CPT/HCPCS: 36415; 71046-TC-FY; 80048; 80053; 80061; 80076; 81003; 82272; 82550; 82553; 82607; 82728; 83540; 83550; 83690; 83735; 84100; 84443; 84484; 85025; 85027; 85045; 85610; 85730; 86850; 86900; 86901; 87086; 88305-TC; 93005; 93010; 93306-TC; 99285-25; C9803; G0378; J0131; U0003; U0005

== ENCOUNTER 2021-05-15 14:30 | Inpatient (IN) | payer OTHER ==
[2021-05-15] MEDS ORDERED: MENTHOL/PHENOL 1 EACH UD MM PRN (15:49)
[2021-05-15] MEDS ORDERED: ACETAMINOPHEN 325 MG TABLET (FP) PO PRN ×3 (15:49→18:48)
[2021-05-15] MEDS ORDERED: ONDANSETRON *ODT* 4 MG TABLET SL PRN (15:49)
[2021-05-15] MEDS ORDERED: MAG HYDROX/AL HYDROX/SIMETH 30 ML UNIT-DOSE CUP PO PRN (15:49)
[2021-05-15] MEDS ORDERED: METHOCARBAMOL 500 MG TABLET PO PRN (15:49)
[2021-05-15] MEDS ORDERED: chlordiazePOXIDE HCL 25 MG CAPSULE PO PRN (15:49)
[2021-05-15] MEDS ORDERED: MAGNESIUM HYDROX 2400MG/30ML ORAL SUSPENSION 30 ML CUP PO PRN (15:49)
[2021-05-15] MEDS ORDERED: NICOTINE 10 MG CARTRIDGE (INHALER) IH PRN (15:49)
[2021-05-15] MEDS ORDERED: MAGNESIUM CITRATE 300 ML BOTTLE PO PRN (15:49)
[2021-05-15] MEDS ORDERED: BISMUTH SUBSALICYLATE 524 MG/30 ML PO PRN (15:49)
[2021-05-15] MEDS ORDERED: IBUPROFEN 400 MG TABLET (FP) PO PRN (15:49)
[2021-05-15 17:23] VITALS: BMI 30.2
[2021-05-15] MEDS: hydrOXYzine PAMOATE 25 MG CAPSULE (FP) PO SCH ×2 (18:20→22:20)
[2021-05-15] MEDS: THIAMINE HCL 100 MG TABLET (FP) PO SCH (22:20)
[2021-05-15] MEDS: chlordiazePOXIDE HCL 25 MG CAPSULE PO SCH (22:20)
[2021-05-15] MEDS: MELATONIN 5 MG TABLETS PO SCH (22:23)
[2021-05-16] MEDS: chlordiazePOXIDE HCL 25 MG CAPSULE PO SCH ×3 (05:27→18:19)
[2021-05-16] MEDS: hydrOXYzine PAMOATE 25 MG CAPSULE (FP) PO SCH ×5 (05:27→22:11)
[2021-05-16] MEDS: PRENATAL VITAMINS W/ FOLIC ACID TABLET (FP) PO SCH (10:36)
[2021-05-16] MEDS: PANTOPRAZOLE 40 MG TABLET PO SCH (10:36)
[2021-05-16 11:17] LABS: CALCIUM 8.1 mg/dL (8.5-10.1); HEMATOCRIT 26.8 % (35.4-49); MCHC 29.8 g/dl (32.0-35.9); MEAN CELL VOLUME 61.3 fl (80-96); MEAN PLT VOLUME 8.9 fl (7.5-11.1); PLATELET COUNT 79 10^3/uL (134-434); RBC 4.38 M/mm3 (4.00-5.60); RDW 23.6 % (11.9-15.9); WHITE BLOOD COUNT 3.1 K/mm3 (4.0-10.0)
[2021-05-16 11:18] LABS: BLOOD UREA NITROGEN 19.3 mg/dL (7-18)
[2021-05-16 11:21] LABS: CREATININE 0.7 mg/dL (0.55-1.3)
[2021-05-16 11:22] LABS: BILIRUBIN,TOTAL 0.9 mg/dL (0.2-1); TOT PROT 7.7 g/dl (6.4-8.2)
[2021-05-16 11:24] LABS: MCH 18.3 pg (25.7-33.7)
[2021-05-16] MEDS ORDERED: LORazepam 1 MG TABLET PO PRN (18:24)
[2021-05-16] MEDS: MELATONIN 5 MG TABLETS PO SCH (22:09)
[2021-05-16] MEDS: LORazepam 2 MG TABLET PO SCH (22:10)
[2021-05-16] MEDS: THIAMINE HCL 100 MG TABLET (FP) PO SCH (22:10)
[2021-05-17] MEDS ORDERED: chlordiazePOXIDE HCL 25 MG CAPSULE PO SCH (05:00)
[2021-05-17] MEDS: LORazepam 2 MG TABLET PO SCH ×4 (05:35→22:25)
[2021-05-17] MEDS: hydrOXYzine PAMOATE 25 MG CAPSULE (FP) PO SCH ×5 (05:35→22:26)
[2021-05-17] MEDS: FERROUS SO4 325 MG TABLET (FP) PO SCH ×3 (07:18→17:39)
[2021-05-17] MEDS: PRENATAL VITAMINS W/ FOLIC ACID TABLET (FP) PO SCH (10:21)
[2021-05-17] MEDS: PANTOPRAZOLE 40 MG TABLET PO SCH (10:21)
[2021-05-17] MEDS: MELATONIN 5 MG TABLETS PO SCH (22:26)
[2021-05-17] MEDS: THIAMINE HCL 100 MG TABLET (FP) PO SCH (22:26)
[2021-05-18] MEDS ORDERED: chlordiazePOXIDE HCL 10 MG CAPSULE PO PRN
[2021-05-18] MEDS ORDERED: guaiFENesin/D-METHORPHAN HB 10 ML UNIT-DOSE CUPS PO PRN (01:16)
[2021-05-18] MEDS ORDERED: chlordiazePOXIDE HCL 10 MG CAPSULE PO SCH (05:00)
[2021-05-18] MEDS: hydrOXYzine PAMOATE 25 MG CAPSULE (FP) PO SCH ×5 (05:24→23:19)
[2021-05-18] MEDS: LORazepam 1 MG TABLET PO SCH ×4 (05:25→23:19)
[2021-05-18] MEDS: FERROUS SO4 325 MG TABLET (FP) PO SCH ×3 (07:16→18:00)
[2021-05-18] MEDS: PRENATAL VITAMINS W/ FOLIC ACID TABLET (FP) PO SCH (10:26)
[2021-05-18] MEDS: PANTOPRAZOLE 40 MG TABLET PO SCH (10:29)
[2021-05-18] MEDS: amLODIPine BESYLATE 10 MG TABLET (FP) PO SCH (12:08)
[2021-05-18 12:28] LABS: BASO % 0.7 % (0-2.0); EOS % 5.4 % (0-4.5); HEMATOCRIT 28.3 % (35.4-49); HEMOGLOBIN 8.3 GM/dL (11.7-16.9); MCHC 29.3 g/dl (32.0-35.9); MEAN CELL VOLUME 63.3 fl (80-96); MEAN PLT VOLUME 8.9 fl (7.5-11.1); MONO % 10.4 % (3.8-10.2); NEUT % 48.5 % (42.8-82.8); RBC 4.47 M/mm3 (4.00-5.60); RDW 23.3 % (11.9-15.9); WHITE BLOOD COUNT 2.9 K/mm3 (4.0-10.0)
[2021-05-18 12:29] LABS: MCH 18.6 pg (25.7-33.7)
[2021-05-18 12:47] LABS: ANISOCYTOSIS 2+; MACROCYTOSIS 0; OVALOCYTE 1+; PLATELET ESTIMATE DECREASED; TARGET CELLS 1+; TEAR DROP CELLS 1+
[2021-05-18 12:48] LABS: PLATELET COUNT 35 10^3/uL (134-434)
[2021-05-18] MEDS: MELATONIN 5 MG TABLETS PO SCH (23:19)
[2021-05-18] MEDS: THIAMINE HCL 100 MG TABLET (FP) PO SCH (23:19)
[2021-05-19] MEDS ORDERED: LORazepam 0.5 MG TABLET PO PRN
[2021-05-19] MEDS ORDERED: chlordiazePOXIDE HCL 10 MG CAPSULE PO SCH (05:00)
[2021-05-19] MEDS: LORazepam 0.5 MG TABLET PO SCH ×4 (06:58→22:38)
[2021-05-19] MEDS: hydrOXYzine PAMOATE 25 MG CAPSULE (FP) PO SCH ×5 (07:08→22:38)
[2021-05-19] MEDS: FERROUS SO4 325 MG TABLET (FP) PO SCH ×3 (08:35→18:03)
[2021-05-19] MEDS: amLODIPine BESYLATE 10 MG TABLET (FP) PO SCH (10:15)
[2021-05-19] MEDS: PANTOPRAZOLE 40 MG TABLET PO SCH (10:15)
[2021-05-19] MEDS: MELATONIN 5 MG TABLETS PO SCH (22:38)
[2021-05-19] MEDS: THIAMINE HCL 100 MG TABLET (FP) PO SCH (22:38)
[2021-05-20] MEDS ORDERED: chlordiazePOXIDE HCL 10 MG CAPSULE PO ONE (05:00)
[2021-05-20] MEDS ORDERED: LORazepam 0.5 MG TABLET PO ONE (05:00)
[2021-05-20] MEDS: hydrOXYzine PAMOATE 25 MG CAPSULE (FP) PO SCH (05:34)
[2021-05-20] MEDS: FERROUS SO4 325 MG TABLET (FP) PO SCH (07:09)
[2021-05-20 09:19] VITALS: BP 140/88; PULSE 83; TEMP 96.9
== END 2021-05-20 09:34 | disposition home or self-care (01) | DRG 774 ==
LOC: YASAS 14:30 → Y6N 17:26
PROVIDERS: ADMIT Allergy & Immunology; ATTEND Allergy & Immunology
PROC: HZ2ZZZZ Detoxification Services for Substance Abuse Treatment (ICD-10-PCS; principal; 2021-05-15)
DX: F10.230 Alcohol dependence with withdrawal, uncomplicated (principal); F10.220 Alcohol dependence with intoxication, uncomplicated; F14.10 Cocaine abuse, uncomplicated; F32.A Depression, unspecified; I10 Essential (primary) hypertension; K70.30 Alcoholic cirrhosis of liver without ascites; D69.6 Thrombocytopenia, unspecified; K25.4 Chronic or unspecified gastric ulcer with hemorrhage; D62 Acute posthemorrhagic anemia; N40.0 Benign prostatic hyperplasia without lower urinary tract symptoms; K92.0 Hematemesis; K29.20 Alcoholic gastritis without bleeding; D61.818 Other pancytopenia; R79.89 Other specified abnormal findings of blood chemistry; D64.9 Anemia, unspecified; M54.59 Other low back pain; G89.29 Other chronic pain; S30.810A Abrasion of lower back and pelvis, initial encounter; W19.XXXA Unspecified fall, initial encounter; Y93.9 Activity, unspecified; Y92.9 Unspecified place or not applicable; Z86.11 Personal history of tuberculosis; Z86.69 Personal history of other diseases of the nervous system and sense organs
CPT/HCPCS: 36415; 80053; 82607; 82746; 83540; 83550; 85025; 85027; 86780; C9803; U0003; U0005

== ENCOUNTER 2021-05-18 16:48 | Emergency (ER) | payer OTHER ==
[2021-05-18 17:23] VITALS: BMI 27.4
[2021-05-18 19:32] LABS: INR 1.09 (0.83-1.09); PROTHROMBIN TIME (PATIENT) 12.8 SEC (9.7-13.0)
[2021-05-18 19:34] LABS: ACTIVATED PTT 29.2 SECONDS (25.2-36.5)
[2021-05-19 02:09] VITALS: BP 141/81; PULSE 91; TEMP 97.6
== END 2021-05-19 07:30 | disposition short-term general hospital (02) ==
LOC: JER 16:48
PROC: 3E0333Z Introduction of Anti-inflammatory into Peripheral Vein, Percutaneous Approach (ICD-10-PCS; principal; 2021-05-18)
PROC: 3E033GC Introduction of Other Therapeutic Substance into Peripheral Vein, Percutaneous Approach (ICD-10-PCS; 2021-05-18)
DX: F10.20 Alcohol dependence, uncomplicated (principal); W19.XXXA Unspecified fall, initial encounter
CPT/HCPCS: 36415; 70450-TC; 71046-TC-FY; 71101-TC-LT-FY; 72125-TC; 80053; 83690; 83735; 84484; 85025; 85610; 85730; 86850; 86900; 86901; 93005; 93010; 99285-25; J0131

== ENCOUNTER 2021-07-23 12:57 | Emergency (ER) | payer OTHER ==
[2021-07-23 13:47] VITALS: BMI 29.0
[2021-07-23] MEDS ORDERED: FOLIC ACID INJECTION - 1 MG, THIAMINE HCL 100 MG, MULTIVIT INJECTION ADULT 10 ML in SOD... IVPB ONE (14:34)
[2021-07-23 15:28] LABS: INR 1.13 (0.83-1.09)
[2021-07-23 15:31] LABS: ACTIVATED PTT 30.2 SECONDS (25.2-36.5)
[2021-07-23 15:47] LABS: BASO % 1.8 % (0-2.0); HEMATOCRIT 34.8 % (35.4-49); HEMOGLOBIN 10.6 GM/dL (11.7-16.9); LYMPH % 22.5 % (8-40); MCHC 30.6 g/dl (32.0-35.9); MEAN CELL VOLUME 63.8 fl (80-96); MEAN PLT VOLUME 8.7 fl (7.5-11.1); MONO % 5.8 % (3.8-10.2); NEUT % 69.9 % (42.8-82.8); PLATELET COUNT 193 10^3/uL (134-434); RBC 5.46 M/mm3 (4.00-5.60); RDW 21.2 % (11.9-15.9); WHITE BLOOD COUNT 6.5 K/mm3 (4.0-10.0)
[2021-07-23 15:48] LABS: ALBUMIN 4.7 g/dl (3.4-5.0); BLOOD UREA NITROGEN 19.4 mg/dL (7-18); CALCIUM 8.6 mg/dL (8.5-10.1); MAGNESIUM 2.1 mg/dL (1.8-2.4)
[2021-07-23 15:50] LABS: MCH 19.5 pg (25.7-33.7)
[2021-07-23 15:51] LABS: CREATININE 0.7 mg/dL (0.55-1.3); PHOSPHOROUS 2.7 mg/dL (2.5-4.9)
[2021-07-23 15:52] LABS: BILIRUBIN,TOTAL 0.8 mg/dL (0.2-1); TOT PROT 8.7 g/dl (6.4-8.2)
[2021-07-23 15:58] LABS: EPI CELLS 9 /uL (0-25.1); HYALINE CASTS 22 /uL (0-3.1); PH,URINE 5.5 (5.0-8.0); URINE APPEARANCE CLEAR; URINE BACTERIA 201 /uL (0-1359); URINE BILIRUBIN NEGATIVE (NEGATIVE); URINE COLOR YELLOW; URINE GLUCOSE (UA) NEGATIVE (NEGATIVE); URINE KETONE 3+ (NEGATIVE); URINE LEUK ESTERASE TRACE (NEGATIVE); URINE NITRITE NEGATIVE (NEGATIVE); URINE PROTEIN 4+ (NEGATIVE); URINE RBC 29 /uL (0-23.9); URINE UROBILINOGEN 0.2 mg/dL (0.2-1.0); URINE WBC 647 /uL (0-25.8)
[2021-07-23] MEDS ORDERED: SODIUM CHLORIDE 0.9% 500 ML INFUS.BAG IV ONE ×2 (16:49→19:34)
[2021-07-23 17:06] LABS: ANISOCYTOSIS 2+; MACROCYTOSIS 1+
[2021-07-23 17:07] LABS: PLATELET ESTIMATE ADEQUATE
[2021-07-23] MEDS ORDERED: chlordiazePOXIDE HCL 25 MG CAPSULE PO ONE (19:34)
[2021-07-23] MEDS ORDERED: chlordiazePOXIDE HCL 25 MG CAPSULE ONE (19:41)
[2021-07-23 21:02] VITALS: BP 150/91; PULSE 100
== END 2021-07-23 21:28 | disposition home or self-care (01) ==
LOC: JER 12:57
PROC: 3E033GC Introduction of Other Therapeutic Substance into Peripheral Vein, Percutaneous Approach (ICD-10-PCS; principal; 2021-07-23)
DX: N30.00 Acute cystitis without hematuria (principal)
CPT/HCPCS: 36415; 74177-TC; 80053; 80307; 81003; 82140; 82272; 83690; 83735; 84100; 85025; 85610; 85730; 86850; 86900; 86901; 87086; 87186; 93005; 93010; 99285-25; C9803; Q9967; U0003; U0005

== ENCOUNTER 2021-07-23 21:49 | Inpatient (IN) | payer OTHER ==
[2021-07-23] MEDS ORDERED: BISMUTH SUBSALICYLATE 524 MG/30 ML PO PRN (22:08)
[2021-07-23] MEDS ORDERED: MAGNESIUM HYDROX 2400MG/30ML ORAL SUSPENSION 30 ML CUP PO PRN (22:08)
[2021-07-23] MEDS ORDERED: MAG HYDROX/AL HYDROX/SIMETH 30 ML UNIT-DOSE CUP PO PRN (22:08)
[2021-07-23] MEDS ORDERED: MENTHOL/PHENOL 1 EACH UD MM PRN (22:08)
[2021-07-23] MEDS ORDERED: DICYCLOMINE HCL 10 MG CAPSULE PO PRN (22:08)
[2021-07-23] MEDS ORDERED: ONDANSETRON *ODT* 4 MG TABLET SL ONE (22:08)
[2021-07-23] MEDS ORDERED: LOPERAMIDE HCL 2 MG CAPSULE PO PRN (22:08)
[2021-07-23] MEDS ORDERED: MAGNESIUM CITRATE 300 ML BOTTLE PO PRN (22:08)
[2021-07-23] MEDS ORDERED: chlordiazePOXIDE HCL 25 MG CAPSULE PO PRN (22:11)
[2021-07-23] MEDS ORDERED: METOPROLOL TARTRATE 25 MG TABLET (FP) PO ONE (22:11)
[2021-07-23] MEDS ORDERED: TRIMETHOBENZAMIDE HCL 200MG/2ML INJ IM ONE ×2 (22:11→22:54)
[2021-07-23 22:27] VITALS: BMI 31.1
[2021-07-23] MEDS: chlordiazePOXIDE HCL 25 MG CAPSULE PO SCH (23:39)
[2021-07-24] MEDS: chlordiazePOXIDE HCL 25 MG CAPSULE PO SCH ×4 (05:10→22:22)
[2021-07-24] MEDS: PRENATAL VITAMINS W/ FOLIC ACID TABLET (FP) PO SCH (10:35)
[2021-07-24] MEDS: amLODIPine BESYLATE 10 MG TABLET (FP) PO SCH (10:35)
[2021-07-24 11:55] LABS: HEMATOCRIT 30.3 % (35.4-49); HEMOGLOBIN 8.9 GM/dL (11.7-16.9); MCHC 29.3 g/dl (32.0-35.9); MEAN CELL VOLUME 65.3 fl (80-96); MEAN PLT VOLUME 9.2 fl (7.5-11.1); PLATELET COUNT 134 10^3/uL (134-434); RBC 4.64 M/mm3 (4.00-5.60); RDW 21.1 % (11.9-15.9); WHITE BLOOD COUNT 4.9 K/mm3 (4.0-10.0)
[2021-07-24 12:03] LABS: MCH 19.1 pg (25.7-33.7)
[2021-07-24 12:13] LABS: ALBUMIN 3.8 g/dl (3.4-5.0); BLOOD UREA NITROGEN 10.5 mg/dL (7-18)
[2021-07-24 12:16] LABS: CREATININE 0.4 mg/dL (0.55-1.3)
[2021-07-24 12:17] LABS: BILIRUBIN,TOTAL 1.2 mg/dL (0.2-1); TOT PROT 6.9 g/dl (6.4-8.2)
[2021-07-24] MEDS: THIAMINE HCL 100 MG TABLET (FP) PO SCH (22:22)
[2021-07-25] MEDS: MELATONIN 5 MG TABLETS PO PRN ×2 (00:52→22:36)
[2021-07-25] MEDS: METHOCARBAMOL 500 MG TABLET PO PRN ×2 (00:52→10:50)
[2021-07-25] MEDS: chlordiazePOXIDE HCL 25 MG CAPSULE PO SCH ×4 (06:34→22:36)
[2021-07-25] MEDS: amLODIPine BESYLATE 10 MG TABLET (FP) PO SCH (10:50)
[2021-07-25] MEDS: hydrOXYzine PAMOATE 25 MG CAPSULE (FP) PO PRN (10:50)
[2021-07-25] MEDS: PRENATAL VITAMINS W/ FOLIC ACID TABLET (FP) PO SCH (10:52)
[2021-07-25 14:07] LABS: SARS-CoV-2 NAA Not Detected (Not Detected)
[2021-07-25] MEDS: FERROUS SO4 325 MG TABLET (FP) PO SCH (16:58)
[2021-07-25] MEDS: THIAMINE HCL 100 MG TABLET (FP) PO SCH (22:36)
[2021-07-26] MEDS ORDERED: chlordiazePOXIDE HCL 10 MG CAPSULE PO PRN
[2021-07-26] MEDS: chlordiazePOXIDE HCL 10 MG CAPSULE PO SCH ×4 (05:26→22:32)
[2021-07-26] MEDS: FERROUS SO4 325 MG TABLET (FP) PO SCH ×3 (07:11→18:14)
[2021-07-26] MEDS: amLODIPine BESYLATE 10 MG TABLET (FP) PO SCH (10:24)
[2021-07-26] MEDS: PRENATAL VITAMINS W/ FOLIC ACID TABLET (FP) PO SCH (10:24)
[2021-07-26] MEDS: METHOCARBAMOL 500 MG TABLET PO PRN (10:25)
[2021-07-26] MEDS: THIAMINE HCL 100 MG TABLET (FP) PO SCH (22:32)
[2021-07-26] MEDS: MELATONIN 5 MG TABLETS PO PRN (22:33)
[2021-07-27] MEDS: chlordiazePOXIDE HCL 10 MG CAPSULE PO SCH ×2 (05:40→17:58)
[2021-07-27] MEDS: FERROUS SO4 325 MG TABLET (FP) PO SCH ×3 (07:30→17:58)
[2021-07-27] MEDS: amLODIPine BESYLATE 10 MG TABLET (FP) PO SCH (10:26)
[2021-07-27] MEDS: PRENATAL VITAMINS W/ FOLIC ACID TABLET (FP) PO SCH (10:26)
[2021-07-27] MEDS: METHOCARBAMOL 500 MG TABLET PO PRN (10:27)
[2021-07-27] MEDS: PANTOPRAZOLE 40 MG TABLET PO SCH (10:27)
[2021-07-27] MEDS: hydrOXYzine PAMOATE 25 MG CAPSULE (FP) PO PRN ×2 (10:27→22:25)
[2021-07-27] MEDS: MELATONIN 5 MG TABLETS PO PRN (22:25)
[2021-07-27] MEDS: THIAMINE HCL 100 MG TABLET (FP) PO SCH (22:25)
[2021-07-28] MEDS ORDERED: chlordiazePOXIDE HCL 10 MG CAPSULE PO ONE (05:00)
[2021-07-28] MEDS: FERROUS SO4 325 MG TABLET (FP) PO SCH (07:35)
[2021-07-28 09:24] VITALS: BP 143/81; PULSE 94; TEMP 98
[2021-07-28] MEDS: amLODIPine BESYLATE 10 MG TABLET (FP) PO SCH (10:26)
[2021-07-28] MEDS: PRENATAL VITAMINS W/ FOLIC ACID TABLET (FP) PO SCH (10:26)
[2021-07-28] MEDS: PANTOPRAZOLE 40 MG TABLET PO SCH (10:26)
== END 2021-07-28 10:00 | disposition home or self-care (01) | DRG 775 ==
LOC: YASAS 21:49 → Y6N 22:56
PROVIDERS: ADMIT Allergy & Immunology; ATTEND Allergy & Immunology
PROC: HZ2ZZZZ Detoxification Services for Substance Abuse Treatment (ICD-10-PCS; principal; 2021-07-23)
DX: F10.230 Alcohol dependence with withdrawal, uncomplicated (principal); D50.9 Iron deficiency anemia, unspecified; I10 Essential (primary) hypertension; K70.30 Alcoholic cirrhosis of liver without ascites; K21.9 Gastro-esophageal reflux disease without esophagitis; N39.0 Urinary tract infection, site not specified; Z85.46 Personal history of malignant neoplasm of prostate; Z87.19 Personal history of other diseases of the digestive system; Z86.11 Personal history of tuberculosis
CPT/HCPCS: 36415; 80053; 85027; 86780; C9803; U0003; U0005

== ENCOUNTER 2021-08-16 17:04 | Inpatient (IN) | payer OTHER ==
[2021-08-16] MEDS ORDERED: SODIUM CHLORIDE 0.9% 1000 ML INFUS.BAG IV ONE (17:48)
[2021-08-16 18:45] LABS: BLOOD UREA NITROGEN 43.1 mg/dL (7-18); CALCIUM 8.3 mg/dL (8.5-10.1); MAGNESIUM 1.9 mg/dL (1.8-2.4)
[2021-08-16 18:46] LABS: ALBUMIN 4.3 g/dl (3.4-5.0)
[2021-08-16 18:48] LABS: CREATININE 1.6 mg/dL (0.55-1.3)
[2021-08-16 18:50] LABS: BILIRUBIN,TOTAL 0.4 mg/dL (0.2-1); TOT PROT 7.8 g/dl (6.4-8.2)
[2021-08-16 19:13] LABS: BASO % 1.9 % (0-2.0); EOS % 0.8 % (0-4.5); HEMATOCRIT 35.1 % (35.4-49); HEMOGLOBIN 10.5 GM/dL (11.7-16.9); LYMPH % 42.8 % (8-40); MCH 20.3 pg (25.7-33.7); MCHC 29.8 g/dl (32.0-35.9); MEAN PLT VOLUME 9.3 fl (7.5-11.1); MONO % 9.6 % (3.8-10.2); NEUT % 44.9 % (42.8-82.8); PLATELET COUNT 54 10^3/uL (134-434); RBC 5.16 M/mm3 (4.00-5.60); RDW 25.6 % (11.9-15.9); WHITE BLOOD COUNT 3.9 K/mm3 (4.0-10.0)
[2021-08-16 20:01] LABS: ANISOCYTOSIS 2+; MACROCYTOSIS 0; OVALOCYTE 2+
[2021-08-16] MEDS ORDERED: ACETAMINOPHEN 1000 MG/100 ML BAG IVPB ONE (21:30)
[2021-08-16] MEDS ORDERED: ACETAMINOPHEN INJECTION 100 ML IVPB ONE (21:33)
[2021-08-16] MEDS ORDERED: LORazepam 2 MG/ML SDV VIAL IVPUSH ONE (22:22)
[2021-08-16 23:02] LABS: EPI CELLS 12 /uL (0-25.1); HYALINE CASTS 1 /uL (0-3.1); PH,URINE 5.5 (5.0-8.0); URINE APPEARANCE CLEAR; URINE BACTERIA 55 /uL (0-1359); URINE BILIRUBIN NEGATIVE (NEGATIVE); URINE COLOR YELLOW; URINE GLUCOSE (UA) NEGATIVE (NEGATIVE); URINE KETONE TRACE (NEGATIVE); URINE LEUK ESTERASE TRACE (NEGATIVE); URINE NITRITE NEGATIVE (NEGATIVE); URINE PROTEIN 1+ (NEGATIVE); URINE RBC 15 /uL (0-23.9); URINE UROBILINOGEN 0.2 mg/dL (0.2-1.0); URINE WBC 79 /uL (0-25.8)
[2021-08-16 23:06] LABS: COCAINE, UR NEGATIVE (NEGATIVE); METHADONE, UR NEGATIVE (NEGATIVE); OPIATES, URI NEGATIVE (NEGATIVE); PHENCYCLIDINE,URINE NEGATIVE (NEGATIVE); URINE BARBITURATES NEGATIVE (NEGATIVE)
[2021-08-16 23:08] LABS: URINE AMPHETAMINES NEGATIVE (NEGATIVE); URINE BENZODIAZEPINES POSITIVE (NEGATIVE)
[2021-08-16] MEDS ORDERED: HALOPERIDOL LACTATE 5 MG/ML IM ONE (23:29)
[2021-08-16] MEDS ORDERED: LORazepam 2 MG/ML SDV VIAL IM ONE (23:35)
[2021-08-16] MEDS ORDERED: HALOPERIDOL LACTATE 5 MG/ML ONE (23:40)
[2021-08-17] MEDS ORDERED: FOLIC ACID INJECTION - 1 MG, THIAMINE HCL 100 MG, MULTIVIT INJECTION ADULT 10 ML in SOD... IVPB ONE (01:11)
[2021-08-17 02:41] LABS: INR 1.07 (0.83-1.09); PROTHROMBIN TIME (PATIENT) 12.3 SEC (9.7-13.0)
[2021-08-17 02:43] LABS: ACTIVATED PTT 33.7 SECONDS (25.2-36.5)
[2021-08-17 04:41] VITALS: BMI 29.2
[2021-08-17] MEDS: FERROUS SO4 325 MG TABLET (FP) PO SCH ×3 (08:50→16:54)
[2021-08-17] MEDS: FOLIC ACID 1 MG TABLET (FP) PO SCH (10:25)
[2021-08-17] MEDS: THIAMINE HCL 200 MG/2 ML VIAL IVPB SCH (10:30)
[2021-08-17] MEDS: PANTOPRAZOLE 40 MG TABLET PO SCH (10:30)
[2021-08-17] MEDS: amLODIPine BESYLATE 10 MG TABLET (FP) PO SCH (10:35)
[2021-08-17 10:43] LABS: EOS % 0.7 % (0-4.5); HEMATOCRIT 33.5 % (35.4-49); HEMOGLOBIN 10.3 GM/dL (11.7-16.9); LYMPH % 19.2 % (8-40); MCH 20.7 pg (25.7-33.7); MCHC 30.6 g/dl (32.0-35.9); MEAN CELL VOLUME 67.8 fl (80-96); MEAN PLT VOLUME 8.9 fl (7.5-11.1); MONO % 6.3 % (3.8-10.2); NEUT % 72.8 % (42.8-82.8); PLATELET COUNT 50 10^3/uL (134-434); RBC 4.95 M/mm3 (4.00-5.60); RDW 26.3 % (11.9-15.9); WHITE BLOOD COUNT 4.8 K/mm3 (4.0-10.0)
[2021-08-17 11:03] LABS: ALBUMIN 3.8 g/dl (3.4-5.0); CALCIUM 7.2 mg/dL (8.5-10.1)
[2021-08-17 11:05] LABS: BLOOD UREA NITROGEN 28.5 mg/dL (7-18); MAGNESIUM 1.5 mg/dL (1.8-2.4)
[2021-08-17 11:06] LABS: CREATININE 0.8 mg/dL (0.55-1.3)
[2021-08-17 11:08] LABS: BILIRUBIN,TOTAL 0.5 mg/dL (0.2-1); PHOSPHOROUS 2.5 mg/dL (2.5-4.9); TOT PROT 7.7 g/dl (6.4-8.2)
[2021-08-17 11:19] LABS: PLATELET ESTIMATE SLT DECREASE
[2021-08-17] MEDS: FINASTERIDE 5 MG TABLET (FP) PO SCH (15:21)
[2021-08-17] MEDS: LACTATED RINGERS SOLUTION 1,000 ML/1,000 ML INFUS.BAG IV SCH (16:53)
[2021-08-17] MEDS: TAMSULOSIN HCL 0.4 MG CAP PO SCH (21:27)
[2021-08-18] MEDS: LACTATED RINGERS SOLUTION 1,000 ML/1,000 ML INFUS.BAG IV SCH ×2 (02:54→16:55)
[2021-08-18 07:55] LABS: HEMATOCRIT 31.4 % (35.4-49); HEMOGLOBIN 9.5 GM/dL (11.7-16.9); MCH 20.4 pg (25.7-33.7); MCHC 30.4 g/dl (32.0-35.9); MEAN PLT VOLUME 9.3 fl (7.5-11.1); RBC 4.68 M/mm3 (4.00-5.60); WHITE BLOOD COUNT 3.8 K/mm3 (4.0-10.0)
[2021-08-18 08:25] LABS: CHLORIDE 96 mmol/L (98-107); SODIUM 133 mmol/L (136-145)
[2021-08-18 08:28] LABS: ALBUMIN 3.5 g/dl (3.4-5.0); ANION GAP 15 MMOL/L (8-16); CO2 22 mmol/L (21-32); GLUCOSE,RANDOM 80 mg/dL (74-106); MAGNESIUM 0.8 mg/dL (1.8-2.4)
[2021-08-18] MEDS ORDERED: MAGNESIUM OXIDE 400 MG TABLET (FP) PO ONE ×3 (08:30→19:26)
[2021-08-18 08:31] LABS: CREATININE 0.6 mg/dL (0.55-1.3); SGOT/AST 52 U/L (15-37); SGPT/ALT 35 U/L (13-61)
[2021-08-18 08:33] LABS: BILIRUBIN,TOTAL 1.1 mg/dL (0.2-1); TOT PROT 7.1 g/dl (6.4-8.2)
[2021-08-18 08:34] LABS: ALK PHOS 56 U/L (45-117)
[2021-08-18 08:59] LABS: CALCIUM 6.9 mg/dL (8.5-10.1)
[2021-08-18 09:24] LABS: IRON SERUM 244 ug/dL (50-175); TOTAL IRON BINDING CAPACITY 408 ug/dL (250-450)
[2021-08-18] MEDS: SIMETHICONE 80 MG TAB.CHEW (FP) PO PRN (09:56)
[2021-08-18] MEDS: FERROUS SO4 325 MG TABLET (FP) PO SCH ×3 (09:56→16:57)
[2021-08-18] MEDS: THIAMINE HCL 200 MG/2 ML VIAL IVPB SCH (09:57)
[2021-08-18] MEDS: TAMSULOSIN HCL 0.4 MG CAP PO SCH ×2 (09:57→21:17)
[2021-08-18] MEDS: FINASTERIDE 5 MG TABLET (FP) PO SCH (09:57)
[2021-08-18] MEDS: PANTOPRAZOLE 40 MG TABLET PO SCH (09:57)
[2021-08-18] MEDS: amLODIPine BESYLATE 10 MG TABLET (FP) PO SCH (09:57)
[2021-08-18] MEDS: FOLIC ACID 1 MG TABLET (FP) PO SCH (09:57)
[2021-08-18 10:16] LABS: PLATELET COUNT 31 10^3/uL (134-434)
[2021-08-18] MEDS: CALCIUM CARBONATE SUSPENSION - 1250 MG/5 ML ML PO SCH ×2 (10:25→21:17)
[2021-08-18] MEDS ORDERED: POTASSIUM PHOSPHATE 30 MM in DEXTROSE 5%-WATER - 500 ML IVPB ONE (10:30)
[2021-08-18] MEDS: THIAMINE HCL 100 MG TABLET (FP) PO SCH (10:33)
[2021-08-18] MEDS ORDERED: POTASSIUM PHOSPHATE 45 MM in DEXTROSE 5%-WATER - 500 ML IVPB ONE (10:41)
[2021-08-18] MEDS ORDERED: NAPH,MB-DB/K PH,MBDB POWDER PACKET PO ONE (11:15)
[2021-08-18] MEDS ORDERED: LORazepam 1 MG TABLET PO ONE (11:15)
[2021-08-18] MEDS: MAGNESIUM SULFATE IN WATER 2 GM/50 ML IVPB IVPB SCH ×2 (12:05→13:34)
[2021-08-18 18:51] LABS: HEMOGLOBIN 10.5 GM/dL (11.7-16.9); MEAN CELL VOLUME 65.9 fl (80-96); WHITE BLOOD COUNT 3.3 K/mm3 (4.0-10.0)
[2021-08-18 19:01] LABS: BASO % 0.7 % (0-2.0); EOS % 0.4 % (0-4.5); HEMATOCRIT 33.7 % (35.4-49); MCH 20.6 pg (25.7-33.7); MCHC 31.2 g/dl (32.0-35.9); MEAN PLT VOLUME 8.4 fl (7.5-11.1); MONO % 12.2 % (3.8-10.2); NEUT % 71.7 % (42.8-82.8); RBC 5.11 M/mm3 (4.00-5.60)
[2021-08-18 19:06] LABS: PLATELET COUNT 29 10^3/uL (134-434)
[2021-08-18 19:17] LABS: CALCIUM 7.7 mg/dL (8.5-10.1)
[2021-08-18 19:18] LABS: ALBUMIN 3.8 g/dl (3.4-5.0); BLOOD UREA NITROGEN 12.2 mg/dL (7-18); MAGNESIUM 1.8 mg/dL (1.8-2.4)
[2021-08-18 19:21] LABS: CREATININE 0.6 mg/dL (0.55-1.3)
[2021-08-18 19:22] LABS: BILIRUBIN,TOTAL 0.7 mg/dL (0.2-1); PHOSPHOROUS 2.6 mg/dL (2.5-4.9); TOT PROT 7.5 g/dl (6.4-8.2)
[2021-08-18] MEDS ORDERED: POTASSIUM CHLORIDE ORAL LIQUID 20 MEQ/15 ML PO ONE (19:25)
[2021-08-18 19:41] LABS: ANISOCYTOSIS 3+; MACROCYTOSIS 0
[2021-08-19 08:42] LABS: HEMATOCRIT 31.9 % (35.4-49); HEMOGLOBIN 9.8 GM/dL (11.7-16.9); MCH 20.8 pg (25.7-33.7); MCHC 30.8 g/dl (32.0-35.9); MEAN CELL VOLUME 67.4 fl (80-96); MEAN PLT VOLUME 9.6 fl (7.5-11.1); RBC 4.74 M/mm3 (4.00-5.60); RDW 26.4 % (11.9-15.9); WHITE BLOOD COUNT 3.1 K/mm3 (4.0-10.0)
[2021-08-19 08:58] LABS: CALCIUM 7.4 mg/dL (8.5-10.1)
[2021-08-19 08:59] LABS: ALBUMIN 3.4 g/dl (3.4-5.0); BLOOD UREA NITROGEN 9.4 mg/dL (7-18); MAGNESIUM 1.6 mg/dL (1.8-2.4)
[2021-08-19 09:02] LABS: CREATININE 0.6 mg/dL (0.55-1.3); PHOSPHOROUS 1.5 mg/dL (2.5-4.9)
[2021-08-19 09:03] LABS: TOT PROT 6.9 g/dl (6.4-8.2)
[2021-08-19 09:04] LABS: BILIRUBIN,TOTAL 0.7 mg/dL (0.2-1)
[2021-08-19 09:21] LABS: PLATELET COUNT 32 10^3/uL (134-434)
[2021-08-19] MEDS: SODIUM CHLORIDE 1,000 ML IV SCH (09:42)
[2021-08-19] MEDS: FINASTERIDE 5 MG TABLET (FP) PO SCH (09:43)
[2021-08-19] MEDS: FERROUS SO4 325 MG TABLET (FP) PO SCH ×3 (09:43→17:23)
[2021-08-19] MEDS: FOLIC ACID 1 MG TABLET (FP) PO SCH (09:43)
[2021-08-19] MEDS: TAMSULOSIN HCL 0.4 MG CAP PO SCH ×2 (09:43→21:12)
[2021-08-19] MEDS: PANTOPRAZOLE 40 MG TABLET PO SCH (09:43)
[2021-08-19] MEDS: THIAMINE HCL 100 MG TABLET (FP) PO SCH (09:43)
[2021-08-19] MEDS: SIMETHICONE 80 MG TAB.CHEW (FP) PO PRN (09:43)
[2021-08-19] MEDS: amLODIPine BESYLATE 10 MG TABLET (FP) PO SCH (09:43)
[2021-08-19] MEDS ORDERED: MAGNESIUM OXIDE 400 MG TABLET (FP) PO ONE (10:00)
[2021-08-19] MEDS ORDERED: NAPH,MB-DB/K PH,MBDB POWDER PACKET PO ONE (10:00)
[2021-08-19] MEDS ORDERED: POTASSIUM PHOSPHATE 30 MM in SODIUM CHLORIDE 500 ML IVPB ONE (11:00)
[2021-08-19] MEDS ORDERED: MAGNESIUM SULF 50% (8.12 MEQ/2 ML-1 GM VIAL) IVPB ONE (11:30)
[2021-08-19] MEDS ORDERED: LORazepam 1 MG TABLET PO PRN (13:37)
[2021-08-19 22:56] LABS: EPI CELLS 9 /uL (0-25.1); HYALINE CASTS 1 /uL (0-3.1); PH,URINE 7.5 (5.0-8.0); URINE APPEARANCE CLEAR; URINE BACTERIA 11 /uL (0-1359); URINE BILIRUBIN NEGATIVE (NEGATIVE); URINE COLOR YELLOW; URINE GLUCOSE (UA) NEGATIVE (NEGATIVE); URINE KETONE NEGATIVE (NEGATIVE); URINE LEUK ESTERASE 1+ (NEGATIVE); URINE NITRITE NEGATIVE (NEGATIVE); URINE PROTEIN NEGATIVE (NEGATIVE); URINE RBC 83 /uL (0-23.9); URINE WBC 89 /uL (0-25.8)
[2021-08-20] MEDS: SODIUM CHLORIDE 1,000 ML IV SCH (08:01)
[2021-08-20] MEDS: FERROUS SO4 325 MG TABLET (FP) PO SCH ×3 (08:02→17:18)
[2021-08-20 08:35] LABS: HEMATOCRIT 31.6 % (35.4-49); HEMOGLOBIN 9.7 GM/dL (11.7-16.9); MCHC 30.6 g/dl (32.0-35.9); MEAN CELL VOLUME 68.5 fl (80-96); MEAN PLT VOLUME 9.5 fl (7.5-11.1); PLATELET COUNT 39 10^3/uL (134-434); RBC 4.62 M/mm3 (4.00-5.60); RDW 26.2 % (11.9-15.9); WHITE BLOOD COUNT 2.3 K/mm3 (4.0-10.0)
[2021-08-20 09:03] LABS: BLOOD UREA NITROGEN 8.7 mg/dL (7-18); CALCIUM 7.4 mg/dL (8.5-10.1); MAGNESIUM 1.5 mg/dL (1.8-2.4)
[2021-08-20 09:04] LABS: ALBUMIN 3.3 g/dl (3.4-5.0)
[2021-08-20 09:06] LABS: CREATININE 0.6 mg/dL (0.55-1.3); PHOSPHOROUS 1.9 mg/dL (2.5-4.9)
[2021-08-20 09:08] LABS: BILIRUBIN,TOTAL 0.5 mg/dL (0.2-1); TOT PROT 6.9 g/dl (6.4-8.2)
[2021-08-20] MEDS: FOLIC ACID 1 MG TABLET (FP) PO SCH (09:28)
[2021-08-20] MEDS: FINASTERIDE 5 MG TABLET (FP) PO SCH (09:28)
[2021-08-20] MEDS: TAMSULOSIN HCL 0.4 MG CAP PO SCH ×2 (09:28→21:39)
[2021-08-20] MEDS: THIAMINE HCL 100 MG TABLET (FP) PO SCH (09:28)
[2021-08-20] MEDS: amLODIPine BESYLATE 10 MG TABLET (FP) PO SCH (09:28)
[2021-08-20] MEDS: PANTOPRAZOLE 40 MG TABLET PO SCH (09:28)
[2021-08-20] MEDS ORDERED: NAPH,MB-DB/K PH,MBDB POWDER PACKET PO ONE (09:45)
[2021-08-20] MEDS ORDERED: MAGNESIUM 2GM/50ML STERILE WATER IVPB IVPB ONE ×2 (09:50→14:00)
[2021-08-20] MEDS ORDERED: POTASSIUM PHOSPHATE 30 MM in SODIUM CHLORIDE 500 ML IVPB ONE (10:30)
[2021-08-20] MEDS: MULTIVITAMINS (DAILY MVI) TABLET (FP) PO SCH (15:39)
[2021-08-21] MEDS: FERROUS SO4 325 MG TABLET (FP) PO SCH ×3 (07:57→17:25)
[2021-08-21] MEDS: PANTOPRAZOLE 40 MG TABLET PO SCH (09:08)
[2021-08-21] MEDS: TAMSULOSIN HCL 0.4 MG CAP PO SCH ×2 (09:08→21:49)
[2021-08-21] MEDS: MULTIVITAMINS (DAILY MVI) TABLET (FP) PO SCH (09:08)
[2021-08-21] MEDS: FINASTERIDE 5 MG TABLET (FP) PO SCH (09:08)
[2021-08-21] MEDS: FOLIC ACID 1 MG TABLET (FP) PO SCH (09:08)
[2021-08-21] MEDS: THIAMINE HCL 100 MG TABLET (FP) PO SCH (09:08)
[2021-08-21] MEDS: amLODIPine BESYLATE 10 MG TABLET (FP) PO SCH (09:16)
[2021-08-21 09:31] LABS: ALBUMIN 3.6 g/dl (3.4-5.0); BLOOD UREA NITROGEN 9.7 mg/dL (7-18); MAGNESIUM 1.6 mg/dL (1.8-2.4)
[2021-08-21 09:34] LABS: CREATININE 0.5 mg/dL (0.55-1.3); PHOSPHOROUS 2.8 mg/dL (2.5-4.9)
[2021-08-21 09:35] LABS: BILIRUBIN,TOTAL 0.5 mg/dL (0.2-1)
[2021-08-21 09:36] LABS: TOT PROT 7.2 g/dl (6.4-8.2)
[2021-08-21 09:45] LABS: CALCIUM 8.7 mg/dL (8.5-10.1)
[2021-08-21 09:53] LABS: HEMATOCRIT 32.1 % (35.4-49); HEMOGLOBIN 10.1 GM/dL (11.7-16.9); MCH 21.1 pg (25.7-33.7); MCHC 31.4 g/dl (32.0-35.9); MEAN CELL VOLUME 67.3 fl (80-96); PLATELET COUNT 85 10^3/uL (134-434); RBC 4.77 M/mm3 (4.00-5.60); RDW 26.5 % (11.9-15.9); WHITE BLOOD COUNT 2.7 K/mm3 (4.0-10.0)
[2021-08-21] MEDS: MAGNESIUM SULFATE IN WATER 2 GM/50 ML IVPB IVPB SCH ×2 (10:26→13:24)
[2021-08-21 12:00] LABS: ANISOCYTOSIS 2+; MACROCYTOSIS 0; OVALOCYTE 2+
[2021-08-21] MEDS ORDERED: MAGNESIUM OXIDE 400 MG TABLET (FP) PO ONE (15:11)
[2021-08-21 22:01] LABS: IRON SERUM 43 ug/dL (50-175)
[2021-08-21 22:02] LABS: TOTAL IRON BINDING CAPACITY 402 ug/dL (250-450)
[2021-08-22] MEDS: MULTIVITAMINS (DAILY MVI) TABLET (FP) PO SCH (09:23)
[2021-08-22] MEDS: FOLIC ACID 1 MG TABLET (FP) PO SCH (09:23)
[2021-08-22] MEDS: TAMSULOSIN HCL 0.4 MG CAP PO SCH ×2 (09:23→21:43)
[2021-08-22] MEDS: PANTOPRAZOLE 40 MG TABLET PO SCH (09:23)
[2021-08-22] MEDS: FERROUS SO4 325 MG TABLET (FP) PO SCH ×3 (09:24→17:29)
[2021-08-22] MEDS: amLODIPine BESYLATE 10 MG TABLET (FP) PO SCH (09:24)
[2021-08-22] MEDS: FINASTERIDE 5 MG TABLET (FP) PO SCH (09:24)
[2021-08-22] MEDS: THIAMINE HCL 100 MG TABLET (FP) PO SCH (09:24)
[2021-08-22 19:33] LABS: HIV INTERPRETATION NEGATIVE (NEGATIVE)
[2021-08-23] MEDS: FINASTERIDE 5 MG TABLET (FP) PO SCH (09:25)
[2021-08-23] MEDS: TAMSULOSIN HCL 0.4 MG CAP PO SCH ×2 (09:26→21:39)
[2021-08-23] MEDS: MULTIVITAMINS (DAILY MVI) TABLET (FP) PO SCH (09:26)
[2021-08-23] MEDS: amLODIPine BESYLATE 10 MG TABLET (FP) PO SCH (09:26)
[2021-08-23] MEDS: FERROUS SO4 325 MG TABLET (FP) PO SCH ×3 (09:26→17:02)
[2021-08-23] MEDS: FOLIC ACID 1 MG TABLET (FP) PO SCH (09:26)
[2021-08-23] MEDS: THIAMINE HCL 100 MG TABLET (FP) PO SCH (09:26)
[2021-08-23] MEDS: PANTOPRAZOLE 40 MG TABLET PO SCH (09:26)
[2021-08-24 09:18] LABS: BASO % 0.6 % (0-2.0); EOS % 5.4 % (0-4.5); HEMATOCRIT 32.8 % (35.4-49); HEMOGLOBIN 10.3 GM/dL (11.7-16.9); LYMPH % 24.5 % (8-40); MCH 21.5 pg (25.7-33.7); MCHC 31.4 g/dl (32.0-35.9); MEAN CELL VOLUME 68.5 fl (80-96); MEAN PLT VOLUME 8.6 fl (7.5-11.1); MONO % 13.6 % (3.8-10.2); NEUT % 55.9 % (42.8-82.8); PLATELET COUNT 177 10^3/uL (134-434); RBC 4.79 M/mm3 (4.00-5.60); RDW 27.4 % (11.9-15.9); WHITE BLOOD COUNT 4.1 K/mm3 (4.0-10.0)
[2021-08-24 09:23] LABS: BILIRUBIN,DIRECT 0.1 mg/dL (0.0-0.2)
[2021-08-24 09:25] LABS: BILIRUBIN,TOTAL 0.5 mg/dL (0.2-1); TOT PROT 7.8 g/dl (6.4-8.2)
[2021-08-24 09:33] LABS: BLOOD UREA NITROGEN 17.4 mg/dL (7-18)
[2021-08-24 09:36] LABS: CREATININE 0.7 mg/dL (0.55-1.3)
[2021-08-24 09:47] LABS: MAGNESIUM 1.7 mg/dL (1.8-2.4)
[2021-08-24] MEDS: MULTIVITAMINS (DAILY MVI) TABLET (FP) PO SCH (10:17)
[2021-08-24] MEDS: PANTOPRAZOLE 40 MG TABLET PO SCH (10:17)
[2021-08-24] MEDS: TAMSULOSIN HCL 0.4 MG CAP PO SCH (10:17)
[2021-08-24] MEDS: FINASTERIDE 5 MG TABLET (FP) PO SCH (10:17)
[2021-08-24] MEDS: FERROUS SO4 325 MG TABLET (FP) PO SCH ×3 (10:17→17:52)
[2021-08-24] MEDS: amLODIPine BESYLATE 10 MG TABLET (FP) PO SCH (10:17)
[2021-08-24] MEDS: FOLIC ACID 1 MG TABLET (FP) PO SCH (10:17)
[2021-08-24] MEDS: THIAMINE HCL 100 MG TABLET (FP) PO SCH (10:17)
[2021-08-24 10:22] LABS: ERYTHROCYTE SEDIMENTATION RATE 25 mm/hr (0-20)
[2021-08-24 14:48] VITALS: BP 137/79; PULSE 90; TEMP 97.5
[2021-08-24] MEDS ORDERED: MAGNESIUM SULFATE IN WATER 2 GM/50 ML IVPB IVPB ONE (15:36)
[2021-08-24] MEDS ORDERED: MAGNESIUM OXIDE 400 MG TABLET (FP) PO ONE (15:36)
== END 2021-08-24 18:43 | disposition home or self-care (01) | DRG 469 ==
LOC: JER 17:04 → JERBED 21:08 → INTOOBSV 21:08 → UNDOADMIN 23:08 → JERBED 23:08 → J8W 08-17 04:01 → OBSVTOIN 08-18 10:44
PROVIDERS: ADMIT Hospitalist; ATTEND Internal Medicine
DX: N17.9 Acute kidney failure, unspecified (principal); D61.818 Other pancytopenia; D69.6 Thrombocytopenia, unspecified; E87.1 Hypo-osmolality and hyponatremia; F14.20 Cocaine dependence, uncomplicated; E83.42 Hypomagnesemia; E83.39 Other disorders of phosphorus metabolism; R16.0 Hepatomegaly, not elsewhere classified; R33.9 Retention of urine, unspecified; F10.20 Alcohol dependence, uncomplicated; K21.9 Gastro-esophageal reflux disease without esophagitis; D64.9 Anemia, unspecified; I10 Essential (primary) hypertension; R07.89 Other chest pain; K70.30 Alcoholic cirrhosis of liver without ascites; E86.0 Dehydration; R31.9 Hematuria, unspecified; R74.01 Elevation of levels of liver transaminase levels; E87.6 Hypokalemia; Z85.46 Personal history of malignant neoplasm of prostate
CPT/HCPCS: 36415; 71046-TC-FY; 71250-TC; 74176-TC; 76705-TC; 76775-TC; 76856-TC; 80048; 80053; 80076; 80307; 81003; 82140; 82272; 82436; 82533; 82550; 82553; 82570; 82607; 82728; 82746; 83036; 83540; 83550; 83615; 83735; 84100; 84133; 84156; 84300; 84439; 84443; 84484; 84540; 85025; 85027; 85610; 85651; 85730; 86140; 86480; 87086; 87186; 87389; 93005; 93010; 97116-GP; 97161-GP; 99285-25; C9803-CS; G0378; U0003; U0005

== ENCOUNTER 2021-10-08 15:01 | Inpatient (IN) | payer OTHER ==
[2021-10-08] MEDS ORDERED: METOPROLOL TARTRATE 25 MG TABLET (FP) PO ONE (17:42)
[2021-10-08] MEDS ORDERED: LORazepam 2 MG/ML SDV VIAL IM ONE (17:43)
[2021-10-08] MEDS ORDERED: TRIMETHOBENZAMIDE HCL 200MG/2ML INJ IM ONE ×2 (17:50→17:54)
[2021-10-08] MEDS ORDERED: METOPROLOL TARTRATE 25 MG TABLET (FP) ONE (17:51)
[2021-10-08] MEDS ORDERED: METHOCARBAMOL 500 MG TABLET PO PRN (17:56)
[2021-10-08] MEDS ORDERED: LOPERAMIDE HCL 2 MG CAPSULE PO PRN (17:56)
[2021-10-08] MEDS ORDERED: MAGNESIUM CITRATE 300 ML BOTTLE PO PRN (17:56)
[2021-10-08] MEDS ORDERED: MAG HYDROX/AL HYDROX/SIMETH 30 ML UNIT-DOSE CUP PO PRN (17:56)
[2021-10-08] MEDS ORDERED: DICYCLOMINE HCL 10 MG CAPSULE PO PRN (17:56)
[2021-10-08] MEDS ORDERED: BISMUTH SUBSALICYLATE 524 MG/30 ML PO PRN (17:56)
[2021-10-08] MEDS ORDERED: BENZOCAINE/MENTHOL (CHLORASEPTIC ) LOZENGE MM PRN (17:56)
[2021-10-08] MEDS ORDERED: MAGNESIUM HYDROX 2400MG/30ML ORAL SUSPENSION 30 ML CUP PO PRN (17:56)
[2021-10-08] MEDS ORDERED: ONDANSETRON *ODT* 4 MG TABLET SL PRN (17:56)
[2021-10-08] MEDS ORDERED: ACETAMINOPHEN 325 MG TABLET (FP) PO PRN (17:56)
[2021-10-08] MEDS ORDERED: chlordiazePOXIDE HCL 25 MG CAPSULE PO PRN (17:58)
[2021-10-08] MEDS ORDERED: SIMETHICONE 80 MG TAB.CHEW (FP) PO PRN (17:59)
[2021-10-08] MEDS ORDERED: FOLIC ACID 1 MG TABLET (FP) PO SCH (18:00)
[2021-10-08] MEDS ORDERED: chlordiazePOXIDE HCL 25 MG CAPSULE PO ONE (19:00)
[2021-10-08 19:59] VITALS: BMI 25.8
[2021-10-08] MEDS: chlordiazePOXIDE HCL 25 MG CAPSULE PO SCH (22:39)
[2021-10-08] MEDS: DOCUSATE SODIUM 100 MG CAPSULE (FP) PO SCH (22:41)
[2021-10-08] MEDS: THIAMINE HCL 100 MG TABLET (FP) PO SCH (22:41)
[2021-10-08] MEDS: amLODIPine BESYLATE 10 MG TABLET (FP) PO SCH (22:41)
[2021-10-08] MEDS: TAMSULOSIN HCL 0.4 MG CAP PO SCH (22:41)
[2021-10-08] MEDS: PANTOPRAZOLE 40 MG TABLET PO SCH (22:41)
[2021-10-08] MEDS: FINASTERIDE 5 MG TABLET (FP) PO SCH (22:41)
[2021-10-08] MEDS: MELATONIN 5 MG TABLETS PO SCH (22:41)
[2021-10-08] MEDS: FERROUS SO4 325 MG TABLET (FP) PO SCH (22:41)
[2021-10-09] MEDS: chlordiazePOXIDE HCL 25 MG CAPSULE PO SCH ×4 (05:18→22:15)
[2021-10-09] MEDS: FERROUS SO4 325 MG TABLET (FP) PO SCH ×3 (07:46→17:47)
[2021-10-09 10:03] LABS: HEMATOCRIT 34.9 % (35.4-49); HEMOGLOBIN 11.1 GM/dL (11.7-16.9); MCH 22.9 pg (25.7-33.7); MCHC 31.7 g/dl (32.0-35.9); MEAN CELL VOLUME 72.5 fl (80-96); MEAN PLT VOLUME 8.9 fl (7.5-11.1); PLATELET COUNT 121 10^3/uL (134-434); RBC 4.82 M/mm3 (4.00-5.60); RDW 24.4 % (11.9-15.9); WHITE BLOOD COUNT 3.8 K/mm3 (4.0-10.0)
[2021-10-09] MEDS: TAMSULOSIN HCL 0.4 MG CAP PO SCH ×2 (10:20→22:14)
[2021-10-09] MEDS: DOCUSATE SODIUM 100 MG CAPSULE (FP) PO SCH ×2 (10:20→22:14)
[2021-10-09] MEDS: PRENATAL VITAMINS W/ FOLIC ACID TABLET (FP) PO SCH (10:24)
[2021-10-09] MEDS: MAGNESIUM OXIDE 400 MG TABLET (FP) PO SCH (10:24)
[2021-10-09] MEDS: FINASTERIDE 5 MG TABLET (FP) PO SCH (10:24)
[2021-10-09] MEDS: PANTOPRAZOLE 40 MG TABLET PO SCH (10:24)
[2021-10-09] MEDS: amLODIPine BESYLATE 10 MG TABLET (FP) PO SCH (10:24)
[2021-10-09 10:32] LABS: CALCIUM 8.7 mg/dL (8.5-10.1)
[2021-10-09 10:33] LABS: ALBUMIN 4.1 g/dl (3.4-5.0); BLOOD UREA NITROGEN 21.2 mg/dL (7-18)
[2021-10-09 10:36] LABS: CREATININE 0.7 mg/dL (0.55-1.3)
[2021-10-09 10:38] LABS: BILIRUBIN,TOTAL 1.3 mg/dL (0.2-1); TOT PROT 7.6 g/dl (6.4-8.2)
[2021-10-09] MEDS: MELATONIN 5 MG TABLETS PO SCH (22:14)
[2021-10-09] MEDS: THIAMINE HCL 100 MG TABLET (FP) PO SCH (22:14)
[2021-10-09] MEDS: hydrOXYzine PAMOATE 25 MG CAPSULE (FP) PO PRN (22:14)
[2021-10-10] MEDS: ACETAMINOPHEN 325 MG TABLET (FP) PO PRN ×2 (00:27→14:25)
[2021-10-10] MEDS: chlordiazePOXIDE HCL 25 MG CAPSULE PO SCH ×4 (05:21→22:14)
[2021-10-10] MEDS: FERROUS SO4 325 MG TABLET (FP) PO SCH ×3 (07:43→18:06)
[2021-10-10 09:46] LABS: GLUCOSE,FASTING 110 mg/dL (74-106)
[2021-10-10 09:50] LABS: BLOOD UREA NITROGEN 15.1 mg/dL (7-18)
[2021-10-10 10:07] LABS: SGOT/AST 33 U/L (15-37)
[2021-10-10] MEDS: PRENATAL VITAMINS W/ FOLIC ACID TABLET (FP) PO SCH (10:16)
[2021-10-10] MEDS: PANTOPRAZOLE 40 MG TABLET PO SCH (10:16)
[2021-10-10] MEDS: TAMSULOSIN HCL 0.4 MG CAP PO SCH ×2 (10:16→22:14)
[2021-10-10] MEDS: MAGNESIUM OXIDE 400 MG TABLET (FP) PO SCH (10:16)
[2021-10-10] MEDS: DOCUSATE SODIUM 100 MG CAPSULE (FP) PO SCH ×2 (10:16→22:14)
[2021-10-10] MEDS: FINASTERIDE 5 MG TABLET (FP) PO SCH (10:16)
[2021-10-10] MEDS: amLODIPine BESYLATE 10 MG TABLET (FP) PO SCH (10:16)
[2021-10-10 10:24] LABS: BILIRUBIN,TOTAL 1.1 mg/dL (0.2-1)
[2021-10-10] MEDS ORDERED: NITROGLYCERIN SUBLINGUAL 1/150 0.4 MG TAB SL ONE (17:16)
[2021-10-10] MEDS ORDERED: cloNIDine HCL 0.1 MG TABLET PO ONE (17:17)
[2021-10-10] MEDS ORDERED: cloNIDine HCL 0.1 MG TABLET PO PRN (18:58)
[2021-10-10] MEDS: THIAMINE HCL 100 MG TABLET (FP) PO SCH (22:14)
[2021-10-10] MEDS: MELATONIN 5 MG TABLETS PO SCH (22:14)
[2021-10-11] MEDS ORDERED: chlordiazePOXIDE HCL 10 MG CAPSULE PO PRN
[2021-10-11] MEDS: chlordiazePOXIDE HCL 10 MG CAPSULE PO SCH ×4 (04:53→22:13)
[2021-10-11] MEDS: FERROUS SO4 325 MG TABLET (FP) PO SCH ×3 (07:26→17:57)
[2021-10-11] MEDS: DOCUSATE SODIUM 100 MG CAPSULE (FP) PO SCH ×2 (10:02→22:13)
[2021-10-11] MEDS: TAMSULOSIN HCL 0.4 MG CAP PO SCH ×2 (10:02→22:13)
[2021-10-11] MEDS: PANTOPRAZOLE 40 MG TABLET PO SCH (10:02)
[2021-10-11] MEDS: MAGNESIUM OXIDE 400 MG TABLET (FP) PO SCH (10:03)
[2021-10-11] MEDS: amLODIPine BESYLATE 10 MG TABLET (FP) PO SCH (10:04)
[2021-10-11] MEDS: FINASTERIDE 5 MG TABLET (FP) PO SCH (10:05)
[2021-10-11] MEDS: PRENATAL VITAMINS W/ FOLIC ACID TABLET (FP) PO SCH (10:05)
[2021-10-11 14:07] LABS: SARS-CoV-2 NAA Not Detected (Not Detected)
[2021-10-11] MEDS: MELATONIN 5 MG TABLETS PO SCH (22:13)
[2021-10-11] MEDS: THIAMINE HCL 100 MG TABLET (FP) PO SCH (22:13)
[2021-10-12] MEDS: hydrOXYzine PAMOATE 25 MG CAPSULE (FP) PO PRN (00:01)
[2021-10-12] MEDS: chlordiazePOXIDE HCL 10 MG CAPSULE PO SCH ×2 (05:19→17:40)
[2021-10-12] MEDS: FERROUS SO4 325 MG TABLET (FP) PO SCH ×3 (08:17→17:40)
[2021-10-12] MEDS: TAMSULOSIN HCL 0.4 MG CAP PO SCH ×2 (10:18→22:41)
[2021-10-12] MEDS: FINASTERIDE 5 MG TABLET (FP) PO SCH (10:18)
[2021-10-12] MEDS: PANTOPRAZOLE 40 MG TABLET PO SCH (10:18)
[2021-10-12] MEDS: PRENATAL VITAMINS W/ FOLIC ACID TABLET (FP) PO SCH (10:18)
[2021-10-12] MEDS: DOCUSATE SODIUM 100 MG CAPSULE (FP) PO SCH ×2 (10:18→22:42)
[2021-10-12] MEDS: amLODIPine BESYLATE 10 MG TABLET (FP) PO SCH (10:18)
[2021-10-12] MEDS: MAGNESIUM OXIDE 400 MG TABLET (FP) PO SCH (10:18)
[2021-10-12] MEDS: MELATONIN 5 MG TABLETS PO SCH (22:41)
[2021-10-12] MEDS: THIAMINE HCL 100 MG TABLET (FP) PO SCH (22:42)
[2021-10-13] MEDS ORDERED: chlordiazePOXIDE HCL 10 MG CAPSULE PO ONE (05:00)
[2021-10-13] MEDS: FERROUS SO4 325 MG TABLET (FP) PO SCH (07:05)
[2021-10-13 08:52] VITALS: BP 140/86; PULSE 99; TEMP 97.7
[2021-10-13] MEDS: DOCUSATE SODIUM 100 MG CAPSULE (FP) PO SCH (09:36)
[2021-10-13] MEDS: FINASTERIDE 5 MG TABLET (FP) PO SCH (09:36)
[2021-10-13] MEDS: MAGNESIUM OXIDE 400 MG TABLET (FP) PO SCH (09:36)
[2021-10-13] MEDS: amLODIPine BESYLATE 10 MG TABLET (FP) PO SCH (09:36)
[2021-10-13] MEDS: PRENATAL VITAMINS W/ FOLIC ACID TABLET (FP) PO SCH (09:36)
[2021-10-13] MEDS: TAMSULOSIN HCL 0.4 MG CAP PO SCH (09:36)
[2021-10-13] MEDS: PANTOPRAZOLE 40 MG TABLET PO SCH (09:36)
== END 2021-10-13 09:45 | disposition home or self-care (01) | DRG 774 ==
LOC: YASAS 15:01 → Y3N 20:15
PROVIDERS: ADMIT Allergy & Immunology; ATTEND Surgery
PROC: HZ2ZZZZ Detoxification Services for Substance Abuse Treatment (ICD-10-PCS; principal; 2021-10-08)
DX: F10.230 Alcohol dependence with withdrawal, uncomplicated (principal); F14.20 Cocaine dependence, uncomplicated; F10.220 Alcohol dependence with intoxication, uncomplicated; D62 Acute posthemorrhagic anemia; I10 Essential (primary) hypertension; K70.30 Alcoholic cirrhosis of liver without ascites; K29.20 Alcoholic gastritis without bleeding; Z86.11 Personal history of tuberculosis
CPT/HCPCS: 36415; 80053; 82247; 82947; 82962; 83036; 84450; 84520; 85027; 86780; 93005; 93010; C9803-CS; J0735; U0003; U0005

== ENCOUNTER 2021-11-05 11:52 | Inpatient (IN) | payer OTHER ==
[2021-11-05] MEDS ORDERED: ONDANSETRON 4 MG/2 ML VIAL IVPUSH STA (12:01)
[2021-11-05] MEDS ORDERED: LACTATED RINGERS SOLUTION 1000 ML INFUS.BAG IV ONE (12:07)
[2021-11-05] MEDS ORDERED: diazePAM CARPU-JECT 10 MG/2 ML DISP.SYRIN IVPUSH ONE (12:08)
[2021-11-05] MEDS ORDERED: PANTOPRAZOLE SODIUM 40 MG VIAL IVPUSH ONE (12:08)
[2021-11-05] MEDS ORDERED: CEFTRIAXONE 1,000 MG in DEXTROSE 5%-WATER - 50 ML IVPB ONE (12:11)
[2021-11-05] MEDS ORDERED: ONDANSETRON 4 MG/2 ML VIAL ONE (12:32)
[2021-11-05] MEDS ORDERED: PANTOPRAZOLE SODIUM 40 MG VIAL ONE (12:32)
[2021-11-05] MEDS ORDERED: CEFTRIAXONE 1 GM/50 ML BAG ONE (12:32)
[2021-11-05] MEDS ORDERED: diazePAM CARPU-JECT 10 MG/2 ML DISP.SYRIN ONE (12:32)
[2021-11-05 12:50] LABS: BASO % 1.8 % (0-2.0); HEMATOCRIT 34.5 % (35.4-49); HEMOGLOBIN 10.9 GM/dL (11.7-16.9); LYMPH % 20.1 % (8-40); MCH 23.4 pg (25.7-33.7); MCHC 31.5 g/dl (32.0-35.9); MEAN CELL VOLUME 74.2 fl (80-96); MEAN PLT VOLUME 8.3 fl (7.5-11.1); MONO % 8.3 % (3.8-10.2); NEUT % 69.8 % (42.8-82.8); PLATELET COUNT 104 10^3/uL (134-434); RBC 4.66 M/mm3 (4.00-5.60); RDW 21.5 % (11.9-15.9)
[2021-11-05 12:56] LABS: VENOUS BASE EXCESS 3.6 mmol/L (-2-2); VENOUS O2 SATURATION 71.4 % (70-80); VENOUS PH 7.49 (7.310-7.410)
[2021-11-05 13:10] LABS: CHLORIDE 96 mmol/L (98-107); SODIUM 139 mmol/L (136-145)
[2021-11-05 13:13] LABS: ALBUMIN 4.3 g/dl (3.4-5.0); CALCIUM 8.4 mg/dL (8.5-10.1); CO2 29 mmol/L (21-32); GLUCOSE,RANDOM 114 mg/dL (74-106)
[2021-11-05 13:16] LABS: CREATININE 0.9 mg/dL (0.55-1.3); LIPASE 440 U/L (73-393); SGOT/AST 50 U/L (15-37); SGPT/ALT 41 U/L (13-61)
[2021-11-05 13:18] LABS: BILIRUBIN,TOTAL 0.9 mg/dL (0.2-1); TOT PROT 8.2 g/dl (6.4-8.2)
[2021-11-05 13:19] LABS: ALK PHOS 56 U/L (45-117)
[2021-11-05 13:22] LABS: INR 1.16 (0.83-1.09); PROTHROMBIN TIME (PATIENT) 13.4 SEC (9.7-13.0)
[2021-11-05 13:24] LABS: ACTIVATED PTT 25.2 SECONDS (25.2-36.5)
[2021-11-05] MEDS ORDERED: POTASSIUM CHLORIDE TABS 20 MEQ TABLET.ER (FP) PO ONE ×2 (14:06→14:18)
[2021-11-05] MEDS: KCL 10 MEQ IVPB 10 MEQ/100 ML INFUS.BAG IVPB SCH ×3 (14:35→16:56)
[2021-11-05 14:48] LABS: ANION GAP 14 MMOL/L (8-16)
[2021-11-05] MEDS ORDERED: FOLIC ACID INJECTION - 1 MG, THIAMINE HCL 100 MG, MULTIVIT INJECTION ADULT 10 ML in SOD... IVPB ONE (14:53)
[2021-11-05] MEDS ORDERED: KCL 10 MEQ IVPB 10 MEQ/100 ML INFUS.BAG IVPB ONE ×2 (15:41→16:46)
[2021-11-05 17:29] LABS: EOS % 0.2 % (0-4.5); HEMATOCRIT 29.7 % (35.4-49); HEMOGLOBIN 9.4 GM/dL (11.7-16.9); LYMPH % 30.6 % (8-40); MCH 23.8 pg (25.7-33.7); MCHC 31.8 g/dl (32.0-35.9); MEAN CELL VOLUME 74.9 fl (80-96); MONO % 8.6 % (3.8-10.2); NEUT % 59.6 % (42.8-82.8); PLATELET COUNT 83 10^3/uL (134-434); RBC 3.96 M/mm3 (4.00-5.60); RDW 21.2 % (11.9-15.9); WHITE BLOOD COUNT 4.6 K/mm3 (4.0-10.0)
[2021-11-05] MEDS ORDERED: ONDANSETRON 4 MG/2 ML VIAL IVPUSH PRN (17:43)
[2021-11-05] MEDS ORDERED: LORazepam 1 MG TABLET PO PRN (17:43)
[2021-11-05] MEDS: SODIUM CHLORIDE 1,000 ML IV SCH (18:38)
[2021-11-05] MEDS ORDERED: SODIUM CHLORIDE 1,000 ML IV STA (19:21)
[2021-11-05 20:39] LABS: COCAINE, UR NEGATIVE (NEGATIVE); EPI CELLS 13 /uL (0-25.1); HYALINE CASTS 13 /uL (0-3.1); METHADONE, UR NEGATIVE (NEGATIVE); URINE AMPHETAMINES NEGATIVE (NEGATIVE); URINE APPEARANCE CLEAR; URINE BACTERIA 9 /uL (0-1359); URINE BILIRUBIN NEGATIVE (NEGATIVE); URINE COLOR YELLOW; URINE GLUCOSE (UA) NEGATIVE (NEGATIVE); URINE KETONE 2+ (NEGATIVE); URINE LEUK ESTERASE NEGATIVE (NEGATIVE); URINE NITRITE NEGATIVE (NEGATIVE); URINE PROTEIN 2+ (NEGATIVE); URINE RBC 23 /uL (0-23.9); URINE UROBILINOGEN 0.2 mg/dL (0.2-1.0); URINE WBC 29 /uL (0-25.8)
[2021-11-05 20:40] LABS: OPIATES, URI NEGATIVE (NEGATIVE); URINE BARBITURATES NEGATIVE (NEGATIVE)
[2021-11-05 20:42] LABS: PHENCYCLIDINE,URINE NEGATIVE (NEGATIVE); URINE BENZODIAZEPINES POSITIVE (NEGATIVE)
[2021-11-05] MEDS: PANTOPRAZOLE SODIUM 40 MG VIAL IVPUSH SCH (22:23)
[2021-11-05 22:44] VITALS: BMI 28.4
[2021-11-05] MEDS ORDERED: LORazepam 2 MG TABLET PO SCH (23:00)
[2021-11-05] MEDS ORDERED: LORazepam 1 MG TABLET PO SCH (23:10)
[2021-11-05] MEDS: LORazepam 1 MG TABLET PO SCH (23:16)
[2021-11-06] MEDS: LORazepam 1 MG TABLET PO SCH (05:15)
[2021-11-06 08:19] LABS: HEMATOCRIT 27.4 % (35.4-49); HEMOGLOBIN 8.7 GM/dL (11.7-16.9); MCH 24.4 pg (25.7-33.7); MCHC 31.8 g/dl (32.0-35.9); MEAN CELL VOLUME 76.8 fl (80-96); MEAN PLT VOLUME 8.7 fl (7.5-11.1); PLATELET COUNT 55 10^3/uL (134-434); RBC 3.57 M/mm3 (4.00-5.60); RDW 21.3 % (11.9-15.9); WHITE BLOOD COUNT 3.5 K/mm3 (4.0-10.0)
[2021-11-06 08:34] LABS: INR 1.18 (0.83-1.09); PROTHROMBIN TIME (PATIENT) 13.6 SEC (9.7-13.0)
[2021-11-06 08:37] LABS: CALCIUM 7.3 mg/dL (8.5-10.1)
[2021-11-06 08:40] LABS: BLOOD UREA NITROGEN 17.7 mg/dL (7-18)
[2021-11-06 08:41] LABS: CREATININE 0.3 mg/dL (0.55-1.3)
[2021-11-06 08:42] LABS: TOT PROT 6.7 g/dl (6.4-8.2)
[2021-11-06] MEDS ORDERED: LORazepam 2 MG/ML SDV VIAL IVPUSH ONE (08:45)
[2021-11-06 09:13] LABS: ALBUMIN 3.4 g/dl (3.4-5.0)
[2021-11-06] MEDS: THIAMINE HCL 200 MG/2 ML VIAL IVPB SCH (09:37)
[2021-11-06] MEDS: PANTOPRAZOLE SODIUM 40 MG VIAL IVPUSH SCH ×2 (09:37→21:17)
[2021-11-06] MEDS ORDERED: LORazepam 2 MG/ML SDV VIAL IVPUSH PRN (09:54)
[2021-11-06] MEDS: KCL 10 MEQ IVPB 10 MEQ/100 ML INFUS.BAG IVPB SCH ×3 (10:48→13:31)
[2021-11-06] MEDS: SODIUM CHLORIDE 1,000 ML IV SCH ×2 (11:00→18:09)
[2021-11-06] MEDS ORDERED: LORazepam 2 MG/ML SDV VIAL IVPUSH SCH (11:00)
[2021-11-06] MEDS ORDERED: LORazepam 1 MG TABLET PO SCH (11:30)
[2021-11-06] MEDS ORDERED: chlordiazePOXIDE HCL 25 MG CAPSULE PO PRN (11:30)
[2021-11-06] MEDS: chlordiazePOXIDE HCL 25 MG CAPSULE PO SCH ×3 (12:24→22:16)
[2021-11-06] MEDS ORDERED: POTASSIUM CHLORIDE ORAL LIQUID 20 MEQ/15 ML PO ONE (12:30)
[2021-11-06] MEDS ORDERED: IRON SUCROSE INJECTION 200 MG in SODIUM CHLORIDE 90 ML IVPB ONE (12:30)
[2021-11-06 14:23] LABS: BASO % 0.7 % (0-2.0); EOS % 0.6 % (0-4.5); HEMATOCRIT 27.6 % (35.4-49); HEMOGLOBIN 8.5 GM/dL (11.7-16.9); MCH 23.6 pg (25.7-33.7); MCHC 30.9 g/dl (32.0-35.9); MEAN CELL VOLUME 76.5 fl (80-96); MEAN PLT VOLUME 8.3 fl (7.5-11.1); MONO % 6.4 % (3.8-10.2); NEUT % 75.3 % (42.8-82.8); PLATELET COUNT 55 10^3/uL (134-434); RDW 21.2 % (11.9-15.9); WHITE BLOOD COUNT 3.3 K/mm3 (4.0-10.0)
[2021-11-06 20:38] LABS: HEMATOCRIT 27.4 % (35.4-49); HEMOGLOBIN 8.5 GM/dL (11.7-16.9); MCH 23.5 pg (25.7-33.7); MCHC 30.8 g/dl (32.0-35.9); MEAN CELL VOLUME 76.3 fl (80-96); MEAN PLT VOLUME 8.6 fl (7.5-11.1); PLATELET COUNT 54 10^3/uL (134-434); RDW 21.5 % (11.9-15.9); WHITE BLOOD COUNT 4.4 K/mm3 (4.0-10.0)
[2021-11-07] MEDS: SODIUM CHLORIDE 1,000 ML IV SCH ×3 (00:16→23:00)
[2021-11-07] MEDS ORDERED: LORazepam 1 MG TABLET PO SCH (05:00)
[2021-11-07] MEDS: chlordiazePOXIDE HCL 25 MG CAPSULE PO SCH ×4 (05:07→22:13)
[2021-11-07 07:00] LABS: BASO % 0.3 % (0-2.0); EOS % 3.2 % (0-4.5); HEMATOCRIT 26.4 % (35.4-49); HEMOGLOBIN 8.5 GM/dL (11.7-16.9); LYMPH % 27.2 % (8-40); MCH 24.7 pg (25.7-33.7); MEAN CELL VOLUME 77.2 fl (80-96); MEAN PLT VOLUME 9.3 fl (7.5-11.1); MONO % 6.5 % (3.8-10.2); NEUT % 62.8 % (42.8-82.8); PLATELET COUNT 48 10^3/uL (134-434); RBC 3.42 M/mm3 (4.00-5.60); RDW 21.3 % (11.9-15.9); WHITE BLOOD COUNT 2.9 K/mm3 (4.0-10.0)
[2021-11-07 07:21] LABS: CALCIUM 7.4 mg/dL (8.5-10.1)
[2021-11-07 07:22] LABS: ALBUMIN 3.1 g/dl (3.4-5.0); BLOOD UREA NITROGEN 9.8 mg/dL (7-18); MAGNESIUM 1.5 mg/dL (1.8-2.4)
[2021-11-07 07:25] LABS: CREATININE 0.3 mg/dL (0.55-1.3); PHOSPHOROUS 2.1 mg/dL (2.5-4.9)
[2021-11-07] MEDS: PANTOPRAZOLE SODIUM 40 MG VIAL IVPUSH SCH ×2 (09:05→22:14)
[2021-11-07] MEDS: THIAMINE HCL 200 MG/2 ML VIAL IVPB SCH (09:05)
[2021-11-07] MEDS: FOLIC ACID 1 MG TABLET (FP) PO SCH (09:59)
[2021-11-07] MEDS ORDERED: POTASSIUM CHLORIDE TABS 20 MEQ TABLET.ER (FP) PO ONE (11:00)
[2021-11-07] MEDS ORDERED: MAGNESIUM SULF 50% (8.12 MEQ/2 ML-1 GM VIAL) IVPB ONE (11:00)
[2021-11-07] MEDS ORDERED: POTASSIUM PHOSPHATE 30 MM in SODIUM CHLORIDE 500 ML IVPB ONE (11:15)
[2021-11-07 19:32] LABS: HEMATOCRIT 28.2 % (35.4-49); HEMOGLOBIN 8.7 GM/dL (11.7-16.9); MCH 24.1 pg (25.7-33.7); MCHC 30.9 g/dl (32.0-35.9); MEAN CELL VOLUME 77.9 fl (80-96); MEAN PLT VOLUME 8.5 fl (7.5-11.1); PLATELET COUNT 50 10^3/uL (134-434); RBC 3.63 M/mm3 (4.00-5.60); RDW 20.8 % (11.9-15.9); WHITE BLOOD COUNT 2.8 K/mm3 (4.0-10.0)
[2021-11-08] MEDS ORDERED: LORazepam 0.5 MG TABLET PO PRN
[2021-11-08] MEDS ORDERED: LORazepam 0.5 MG TABLET PO SCH (05:00)
[2021-11-08] MEDS: chlordiazePOXIDE HCL 25 MG CAPSULE PO SCH ×4 (05:58→22:18)
[2021-11-08 06:42] LABS: BASO % 0.6 % (0-2.0); EOS % 4.3 % (0-4.5); HEMATOCRIT 28.8 % (35.4-49); HEMOGLOBIN 8.9 GM/dL (11.7-16.9); MCHC 30.8 g/dl (32.0-35.9); MEAN CELL VOLUME 77.9 fl (80-96); MEAN PLT VOLUME 8.7 fl (7.5-11.1); MONO % 8.3 % (3.8-10.2); NEUT % 60.8 % (42.8-82.8); PLATELET COUNT 46 10^3/uL (134-434); RBC 3.69 M/mm3 (4.00-5.60); RDW 21.3 % (11.9-15.9); WHITE BLOOD COUNT 2.4 K/mm3 (4.0-10.0)
[2021-11-08 06:45] LABS: ALBUMIN 3.3 g/dl (3.4-5.0); BLOOD UREA NITROGEN 7.2 mg/dL (7-18); CALCIUM 8.1 mg/dL (8.5-10.1); MAGNESIUM 1.9 mg/dL (1.8-2.4)
[2021-11-08 06:48] LABS: CREATININE 0.4 mg/dL (0.55-1.3); PHOSPHOROUS 2.7 mg/dL (2.5-4.9)
[2021-11-08 06:50] LABS: BILIRUBIN,TOTAL 0.7 mg/dL (0.2-1); TOT PROT 6.3 g/dl (6.4-8.2)
[2021-11-08] MEDS: THIAMINE HCL 200 MG/2 ML VIAL IVPB SCH (09:33)
[2021-11-08] MEDS: FOLIC ACID 1 MG TABLET (FP) PO SCH (09:33)
[2021-11-08] MEDS: PANTOPRAZOLE SODIUM 40 MG VIAL IVPUSH SCH (09:34)
[2021-11-08] MEDS ORDERED: FERROUS SO4 325 MG TABLET (FP) PO SCH (11:30)
[2021-11-08] MEDS: SODIUM CHLORIDE 1,000 ML IV SCH (18:52)
[2021-11-08] MEDS ORDERED: PANTOPRAZOLE 40 MG TABLET PO SCH (22:00)
[2021-11-09] MEDS ORDERED: chlordiazePOXIDE HCL 10 MG CAPSULE PO PRN
[2021-11-09] MEDS ORDERED: MELATONIN 5 MG TABLETS PO ONE (02:02)
[2021-11-09] MEDS ORDERED: chlordiazePOXIDE HCL 10 MG CAPSULE PO SCH (05:00)
[2021-11-09] MEDS ORDERED: LORazepam 0.5 MG TABLET PO ONE (05:00)
[2021-11-09 07:48] LABS: BASO % 0.6 % (0-2.0); EOS % 4.1 % (0-4.5); HEMATOCRIT 26.7 % (35.4-49); HEMOGLOBIN 8.4 GM/dL (11.7-16.9); LYMPH % 20.1 % (8-40); MCH 24.6 pg (25.7-33.7); MCHC 31.5 g/dl (32.0-35.9); MEAN CELL VOLUME 78.2 fl (80-96); MONO % 8.9 % (3.8-10.2); NEUT % 66.3 % (42.8-82.8); PLATELET COUNT 57 10^3/uL (134-434); RBC 3.42 M/mm3 (4.00-5.60); WHITE BLOOD COUNT 2.6 K/mm3 (4.0-10.0)
[2021-11-09 07:59] VITALS: BP 115/85; PULSE 82; TEMP 97.7
[2021-11-09 08:04] LABS: ALBUMIN 3.3 g/dl (3.4-5.0); CALCIUM 8.1 mg/dL (8.5-10.1)
[2021-11-09 08:05] LABS: BLOOD UREA NITROGEN 6.2 mg/dL (7-18); MAGNESIUM 1.7 mg/dL (1.8-2.4)
[2021-11-09 08:08] LABS: CREATININE 0.4 mg/dL (0.55-1.3); PHOSPHOROUS 3.2 mg/dL (2.5-4.9)
[2021-11-09 08:09] LABS: BILIRUBIN,TOTAL 0.5 mg/dL (0.2-1); TOT PROT 6.6 g/dl (6.4-8.2)
[2021-11-09 08:34] LABS: ANISOCYTOSIS 2+; MACROCYTOSIS 0
[2021-11-09] MEDS ORDERED: THIAMINE HCL 100 MG TABLET (FP) PO SCH (10:00)
[2021-11-10] MEDS ORDERED: chlordiazePOXIDE HCL 10 MG CAPSULE PO SCH (05:00)
[2021-11-11] MEDS ORDERED: chlordiazePOXIDE HCL 10 MG CAPSULE PO ONE (05:00)
== END 2021-11-09 11:04 | disposition left against medical advice (07) | DRG 242 ==
LOC: JER 11:52 → JERBED 14:51 → J4W 20:39 → J5WEST-2 20:42 → J4W 20:47
PROVIDERS: ADMIT Internal Medicine; ATTEND Internal Medicine
DX: K22.6 Gastro-esophageal laceration-hemorrhage syndrome (principal); D61.818 Other pancytopenia; D62 Acute posthemorrhagic anemia; E87.6 Hypokalemia; F10.239 Alcohol dependence with withdrawal, unspecified; E83.42 Hypomagnesemia; E83.39 Other disorders of phosphorus metabolism; K21.9 Gastro-esophageal reflux disease without esophagitis
CPT/HCPCS: 36415; 70450-TC; 71045-TC-FY; 72125-TC; 80053; 80307; 81003; 82272; 82550; 82553; 82693; 82728; 82803; 82962; 83540; 83550; 83690; 83735; 83930; 84100; 84484; 85025; 85027; 85610; 85730; 86850; 86900; 86901; 87086; 93005; 93010; 99291; C9803-CS; J1756; U0003; U0005

== ENCOUNTER 2021-12-22 12:38 | Emergency (ER) | payer OTHER ==
[2021-12-22 13:02] VITALS: TEMP 98.8; BMI 29.0
[2021-12-22] MEDS ORDERED: MAG HYDROX/AL HYDROX/SIMETH 30 ML UNIT-DOSE CUP PO ONE (13:09)
[2021-12-22] MEDS ORDERED: SODIUM CHLORIDE 0.9% 500 ML INFUS.BAG IV ONE ×2 (13:09→15:47)
[2021-12-22] MEDS ORDERED: FAMOTIDINE 20 MG/50 ML IVPB 20 MG/50 ML MG IVPB ONE ×2 (13:09→13:17)
[2021-12-22] MEDS ORDERED: MAG HYDROX/AL HYDROX/SIMETH 30 ML UNIT-DOSE CUP ONE (13:17)
[2021-12-22 13:40] LABS: HEMATOCRIT 33.7 % (35.4-49); HEMOGLOBIN 10.6 GM/dL (11.7-16.9); MCH 21.6 pg (25.7-33.7); MCHC 31.4 g/dl (32.0-35.9); MEAN CELL VOLUME 68.9 fl (80-96); MEAN PLT VOLUME 8.6 fl (7.5-11.1); PLATELET COUNT 307 10^3/uL (134-434); RBC 4.89 M/mm3 (4.00-5.60); RDW 20.5 % (11.9-15.9); WHITE BLOOD COUNT 5.4 K/mm3 (4.0-10.0)
[2021-12-22 13:41] LABS: BASO % 1.7 % (0-2.0); EOS % 0.1 % (0-4.5); LYMPH % 34.5 % (8-40); MONO % 6.6 % (3.8-10.2); NEUT % 57.1 % (42.8-82.8)
[2021-12-22 13:48] LABS: INR 1.11 (0.83-1.09); PROTHROMBIN TIME (PATIENT) 12.8 SEC (9.7-13.0)
[2021-12-22 13:50] LABS: ACTIVATED PTT 26.6 SECONDS (25.2-36.5)
[2021-12-22 14:02] LABS: CALCIUM 8.7 mg/dL (8.5-10.1)
[2021-12-22 14:03] LABS: ALBUMIN 4.4 g/dl (3.4-5.0); BLOOD UREA NITROGEN 19.8 mg/dL (7-18)
[2021-12-22 14:07] LABS: TOT PROT 8.5 g/dl (6.4-8.2)
[2021-12-22 14:08] LABS: BILIRUBIN,TOTAL 0.7 mg/dL (0.2-1)
[2021-12-22] MEDS ORDERED: chlordiazePOXIDE HCL 25 MG CAPSULE PO ONE (14:29)
[2021-12-22 14:37] LABS: ANISOCYTOSIS 2+; MACROCYTOSIS 0
[2021-12-22] MEDS ORDERED: chlordiazePOXIDE HCL 25 MG CAPSULE ONE (14:49)
[2021-12-22 15:43] VITALS: BP 148/89; RESP 16
[2021-12-22 16:07] VITALS: PULSE 100
[2021-12-22] MEDS ORDERED: SUCRALFATE 1 GM TABLET (FP) PO ONE (16:42)
[2021-12-22] MEDS ORDERED: SUCRALFATE 1 GM TABLET (FP) ONE (16:48)
[2021-12-22 19:34] LABS: MAGNESIUM 1.9 mg/dL (1.8-2.4)
== END 2021-12-22 17:54 | disposition home or self-care (01) ==
LOC: JER 12:38
PROC: 3E033GC Introduction of Other Therapeutic Substance into Peripheral Vein, Percutaneous Approach (ICD-10-PCS; principal; 2021-12-22)
DX: K29.20 Alcoholic gastritis without bleeding (principal); F10.20 Alcohol dependence, uncomplicated
CPT/HCPCS: 36415; 71045-TC-FY; 80053; 83690; 83735; 84484; 85025; 85610; 85730; 86850; 86900; 86901; 93005; 93010; 99285-25

== ENCOUNTER 2022-04-22 14:34 | Inpatient (IN) | payer OTHER ==
[2022-04-22 15:05] VITALS: BMI 25.8
[2022-04-22] MEDS ORDERED: NICOTINE 7 MG/24 HOURS TOPICAL PATCH TD PRN (15:59)
[2022-04-22] MEDS ORDERED: LOPERAMIDE HCL 2 MG CAPSULE PO PRN (15:59)
[2022-04-22] MEDS ORDERED: IBUPROFEN 600 MG TABLET (FP) PO PRN (15:59)
[2022-04-22] MEDS ORDERED: DICYCLOMINE HCL 10 MG CAPSULE PO PRN (15:59)
[2022-04-22] MEDS ORDERED: BENZOCAINE/MENTHOL (CHLORASEPTIC ) LOZENGE MM PRN (15:59)
[2022-04-22] MEDS ORDERED: LORazepam 1 MG TABLET PO PRN (15:59)
[2022-04-22] MEDS ORDERED: MAG HYDROX/AL HYDROX/SIMETH 30 ML UNIT-DOSE CUP PO PRN (15:59)
[2022-04-22] MEDS ORDERED: NICOTINE 10 MG CARTRIDGE (INHALER) IH PRN (15:59)
[2022-04-22] MEDS ORDERED: MAGNESIUM HYDROX 2400MG/30ML ORAL SUSPENSION 30 ML CUP PO PRN (15:59)
[2022-04-22] MEDS ORDERED: NICOTINE POLACRILEX 2 MG GUM BUC PRN (15:59)
[2022-04-22] MEDS ORDERED: POLYETHYLENE GLYCOL (HEALTHYLAX) 3350 17 GM PACKET PO PRN (15:59)
[2022-04-22] MEDS ORDERED: ACETAMINOPHEN 325 MG TABLET (FP) PO PRN ×2 (15:59)
[2022-04-22] MEDS ORDERED: IBUPROFEN 400 MG TABLET (FP) PO PRN (15:59)
[2022-04-22] MEDS ORDERED: BISMUTH SUBSALICYLATE 524 MG/30 ML PO PRN (15:59)
[2022-04-22] MEDS ORDERED: ONDANSETRON *ODT* 4 MG TABLET SL PRN (15:59)
[2022-04-22] MEDS ORDERED: LORazepam 2 MG TABLET ONE (16:26)
[2022-04-22] MEDS ORDERED: IBUPROFEN 600 MG TABLET (FP) PO ONE (16:27)
[2022-04-22] MEDS: LORazepam 2 MG TABLET PO SCH ×2 (16:30→22:23)
[2022-04-22] MEDS: THIAMINE HCL 100 MG TABLET (FP) PO SCH (22:23)
[2022-04-22] MEDS: FAMOTIDINE 20 MG TABLET PO SCH (22:23)
[2022-04-22] MEDS: MELATONIN 5 MG TABLETS PO SCH (22:24)
[2022-04-23] MEDS: LORazepam 2 MG TABLET PO SCH ×4 (05:28→22:10)
[2022-04-23] MEDS: PRENATAL VITAMINS W/ FOLIC ACID TABLET (FP) PO SCH (10:10)
[2022-04-23] MEDS: amLODIPine BESYLATE 10 MG TABLET (FP) PO SCH (10:11)
[2022-04-23] MEDS: FAMOTIDINE 20 MG TABLET PO SCH ×2 (10:11→22:11)
[2022-04-23] MEDS: cloNIDine HCL 0.1 MG TABLET PO PRN ×2 (10:11→17:12)
[2022-04-23 11:15] LABS: HEMATOCRIT 35.9 % (35.4-49); MCHC 30.7 g/dl (32.0-35.9); MEAN CELL VOLUME 71.8 fl (80-96); MEAN PLT VOLUME 9.7 fl (7.5-11.1); RDW 23.1 % (11.9-15.9); WHITE BLOOD COUNT 3.3 K/mm3 (4.0-10.0)
[2022-04-23 11:16] LABS: PLATELET COUNT 47 10^3/uL (134-434)
[2022-04-23 11:25] LABS: CALCIUM 8.6 mg/dL (8.5-10.1)
[2022-04-23 11:26] LABS: BLOOD UREA NITROGEN 15.3 mg/dL (7-18)
[2022-04-23 11:29] LABS: CREATININE 0.6 mg/dL (0.55-1.3); TOT PROT 7.5 g/dl (6.4-8.2)
[2022-04-23] MEDS: POTASSIUM CHLORIDE ORAL LIQUID 20 MEQ/15 ML PO SCH ×2 (11:34→22:10)
[2022-04-23 12:16] LABS: HIV INTERPRETATION NEGATIVE (NEGATIVE)
[2022-04-23] MEDS: THIAMINE HCL 100 MG TABLET (FP) PO SCH (22:11)
[2022-04-23] MEDS: MELATONIN 5 MG TABLETS PO SCH (22:11)
[2022-04-24] MEDS: LORazepam 1 MG TABLET PO SCH ×4 (05:25→22:06)
[2022-04-24] MEDS: FAMOTIDINE 20 MG TABLET PO SCH ×2 (10:32→22:06)
[2022-04-24] MEDS: PRENATAL VITAMINS W/ FOLIC ACID TABLET (FP) PO SCH (10:32)
[2022-04-24] MEDS: hydrOXYzine PAMOATE 25 MG CAPSULE (FP) PO PRN (10:32)
[2022-04-24] MEDS: POTASSIUM CHLORIDE ORAL LIQUID 20 MEQ/15 ML PO SCH ×2 (10:32→22:05)
[2022-04-24] MEDS: amLODIPine BESYLATE 10 MG TABLET (FP) PO SCH (10:32)
[2022-04-24] MEDS: METHOCARBAMOL 500 MG TABLET PO PRN (10:32)
[2022-04-24] MEDS: cloNIDine HCL 0.1 MG TABLET PO PRN (10:33)
[2022-04-24] MEDS ORDERED: LACTULOSE 20 GM/30 ML UDC (FOR ORAL USE ONLY) PO PRN ×2 (19:58→20:38)
[2022-04-24] MEDS: MELATONIN 5 MG TABLETS PO SCH (22:06)
[2022-04-24] MEDS: THIAMINE HCL 100 MG TABLET (FP) PO SCH (22:06)
[2022-04-24] MEDS: LACTULOSE 20 GM/30 ML UDC (FOR ORAL USE ONLY) PO SCH (22:07)
[2022-04-25] MEDS ORDERED: LORazepam 0.5 MG TABLET PO PRN
[2022-04-25] MEDS: hydrOXYzine PAMOATE 25 MG CAPSULE (FP) PO PRN ×2 (05:27→10:35)
[2022-04-25] MEDS: METHOCARBAMOL 500 MG TABLET PO PRN (05:27)
[2022-04-25] MEDS: LORazepam 0.5 MG TABLET PO SCH ×4 (05:27→22:12)
[2022-04-25] MEDS: LACTULOSE 20 GM/30 ML UDC (FOR ORAL USE ONLY) PO SCH ×4 (10:34→22:12)
[2022-04-25] MEDS: PRENATAL VITAMINS W/ FOLIC ACID TABLET (FP) PO SCH (10:34)
[2022-04-25] MEDS: FAMOTIDINE 20 MG TABLET PO SCH ×2 (10:35→22:11)
[2022-04-25] MEDS: cloNIDine HCL 0.1 MG TABLET PO PRN (10:35)
[2022-04-25] MEDS: amLODIPine BESYLATE 10 MG TABLET (FP) PO SCH (10:35)
[2022-04-25] MEDS: MELATONIN 5 MG TABLETS PO SCH (22:12)
[2022-04-25] MEDS: THIAMINE HCL 100 MG TABLET (FP) PO SCH (22:12)
[2022-04-26] MEDS ORDERED: LORazepam 0.5 MG TABLET PO ONE (05:00)
[2022-04-26] MEDS: hydrOXYzine PAMOATE 25 MG CAPSULE (FP) PO PRN (05:35)
[2022-04-26] MEDS: cloNIDine HCL 0.1 MG TABLET PO PRN (05:35)
[2022-04-26] MEDS: amLODIPine BESYLATE 10 MG TABLET (FP) PO SCH (10:21)
[2022-04-26] MEDS: PRENATAL VITAMINS W/ FOLIC ACID TABLET (FP) PO SCH (10:21)
[2022-04-26] MEDS: FAMOTIDINE 20 MG TABLET PO SCH ×2 (10:21→22:19)
[2022-04-26] MEDS: LACTULOSE 20 GM/30 ML UDC (FOR ORAL USE ONLY) PO SCH ×4 (10:22→22:21)
[2022-04-26] MEDS: POTASSIUM CHLORIDE ORAL LIQUID 20 MEQ/15 ML PO SCH ×2 (12:33→22:19)
[2022-04-26] MEDS: THIAMINE HCL 100 MG TABLET (FP) PO SCH (22:19)
[2022-04-26] MEDS: MELATONIN 5 MG TABLETS PO SCH (22:20)
[2022-04-27] MEDS ORDERED: LORazepam 0.5 MG TABLET PO ONE (06:00)
[2022-04-27 06:17] VITALS: RESP 16
[2022-04-27] MEDS: POTASSIUM CHLORIDE ORAL LIQUID 20 MEQ/15 ML PO SCH (09:15)
[2022-04-27] MEDS: PRENATAL VITAMINS W/ FOLIC ACID TABLET (FP) PO SCH (09:15)
[2022-04-27] MEDS: FAMOTIDINE 20 MG TABLET PO SCH (09:15)
[2022-04-27] MEDS: amLODIPine BESYLATE 10 MG TABLET (FP) PO SCH (09:15)
[2022-04-27] MEDS: LACTULOSE 20 GM/30 ML UDC (FOR ORAL USE ONLY) PO SCH (09:16)
[2022-04-27 09:22] VITALS: BP 137/82; PULSE 97; TEMP 97.8
[2022-04-27] MEDS ORDERED: TAMSULOSIN HCL 0.4 MG CAP PO SCH (10:00)
== END 2022-04-27 10:20 | disposition home or self-care (01) | DRG 775 ==
LOC: YASAS 14:34 → Y6N 16:31
PROVIDERS: ADMIT Allergy & Immunology; ATTEND Surgery
PROC: HZ2ZZZZ Detoxification Services for Substance Abuse Treatment (ICD-10-PCS; principal; 2022-04-22)
DX: F10.230 Alcohol dependence with withdrawal, uncomplicated (principal); E87.6 Hypokalemia; I10 Essential (primary) hypertension; N40.0 Benign prostatic hyperplasia without lower urinary tract symptoms; R79.89 Other specified abnormal findings of blood chemistry; R74.8 Abnormal levels of other serum enzymes; Z86.11 Personal history of tuberculosis; K70.30 Alcoholic cirrhosis of liver without ascites; M54.50 Low back pain, unspecified; G89.29 Other chronic pain; Z85.46 Personal history of malignant neoplasm of prostate; Z87.19 Personal history of other diseases of the digestive system
CPT/HCPCS: 36415; 71046-TC-FY; 80053; 82140; 84132; 85027; 86780; 87389; 93005; 93010; C9803-CS; U0003; U0005

== ENCOUNTER 2022-05-30 13:34 | Inpatient (IN) | payer OTHER ==
[2022-05-30 14:54] VITALS: BMI 28.0
[2022-05-30] MEDS ORDERED: NALOXONE HCL (KLOXXADO) 8 MG SPRAY NS PRN (16:24)
[2022-05-30] MEDS ORDERED: IBUPROFEN 600 MG TABLET (FP) PO PRN (16:24)
[2022-05-30] MEDS ORDERED: LOPERAMIDE HCL 2 MG CAPSULE PO PRN (16:24)
[2022-05-30] MEDS ORDERED: BENZOCAINE/MENTHOL (CHLORASEPTIC ) LOZENGE MM PRN (16:24)
[2022-05-30] MEDS ORDERED: ONDANSETRON *ODT* 4 MG TABLET SL PRN (16:24)
[2022-05-30] MEDS ORDERED: BISMUTH SUBSALICYLATE 524 MG/30 ML PO PRN (16:24)
[2022-05-30] MEDS ORDERED: LORazepam 1 MG TABLET PO PRN (16:24)
[2022-05-30] MEDS ORDERED: ACETAMINOPHEN 325 MG TABLET (FP) PO PRN (16:24)
[2022-05-30] MEDS ORDERED: MAGNESIUM HYDROX 2400MG/30ML ORAL SUSPENSION 30 ML CUP PO PRN (16:24)
[2022-05-30] MEDS ORDERED: POLYETHYLENE GLYCOL (HEALTHYLAX) 3350 17 GM PACKET PO PRN (16:24)
[2022-05-30] MEDS ORDERED: DICYCLOMINE HCL 10 MG CAPSULE PO PRN (16:24)
[2022-05-30] MEDS ORDERED: MAG HYDROX/AL HYDROX/SIMETH 30 ML UNIT-DOSE CUP PO PRN (16:24)
[2022-05-30] MEDS ORDERED: IBUPROFEN 400 MG TABLET (FP) PO PRN (16:24)
[2022-05-30] MEDS ORDERED: LORazepam 2 MG TABLET ONE (17:05)
[2022-05-30] MEDS: LORazepam 2 MG TABLET PO SCH ×2 (17:09→22:05)
[2022-05-30] MEDS: hydrOXYzine PAMOATE 25 MG CAPSULE (FP) PO PRN (18:09)
[2022-05-30] MEDS: METHOCARBAMOL 500 MG TABLET PO PRN (18:09)
[2022-05-30] MEDS: THIAMINE HCL 100 MG TABLET (FP) PO SCH (22:04)
[2022-05-30] MEDS: FAMOTIDINE 20 MG TABLET PO SCH (22:04)
[2022-05-30] MEDS: MELATONIN 5 MG TABLETS PO SCH (22:04)
[2022-05-31] MEDS: LORazepam 2 MG TABLET PO SCH ×4 (05:28→22:18)
[2022-05-31] MEDS: FERROUS SO4 325 MG TABLET (FP) PO SCH ×3 (07:23→18:09)
[2022-05-31] MEDS: TAMSULOSIN HCL 0.4 MG CAP PO SCH (08:31)
[2022-05-31] MEDS: FAMOTIDINE 20 MG TABLET PO SCH ×2 (10:23→22:18)
[2022-05-31] MEDS: PRENATAL VITAMINS W/ FOLIC ACID TABLET (FP) PO SCH (10:23)
[2022-05-31] MEDS: amLODIPine BESYLATE 10 MG TABLET (FP) PO SCH (10:23)
[2022-05-31 20:06] LABS: HEMATOCRIT 38.4 % (35.4-49); HEMOGLOBIN 11.9 GM/dL (11.7-16.9); MCH 22.4 pg (25.7-33.7); MEAN CELL VOLUME 72.4 fl (80-96); MEAN PLT VOLUME 9.4 fl (7.5-11.1); PLATELET COUNT 83 10^3/uL (134-434); RDW 22.9 % (11.9-15.9); WHITE BLOOD COUNT 3.9 K/mm3 (4.0-10.0)
[2022-05-31 20:23] LABS: CALCIUM 8.3 mg/dL (8.5-10.1)
[2022-05-31] MEDS: hydrOXYzine PAMOATE 25 MG CAPSULE (FP) PO PRN (20:24)
[2022-05-31 20:27] LABS: CREATININE 0.5 mg/dL (0.55-1.3)
[2022-05-31 20:28] LABS: TOT PROT 7.7 g/dl (6.4-8.2)
[2022-05-31 20:29] LABS: BILIRUBIN,TOTAL 1.2 mg/dL (0.2-1)
[2022-05-31 20:30] LABS: BLOOD UREA NITROGEN 8.2 mg/dL (7-18)
[2022-05-31] MEDS: MELATONIN 5 MG TABLETS PO SCH (22:17)
[2022-05-31] MEDS: THIAMINE HCL 100 MG TABLET (FP) PO SCH (22:17)
[2022-05-31] MEDS: ACETAMINOPHEN 325 MG TABLET (FP) PO PRN (22:19)
[2022-06-01] MEDS: LORazepam 1 MG TABLET PO SCH ×4 (05:35→22:04)
[2022-06-01] MEDS: FERROUS SO4 325 MG TABLET (FP) PO SCH ×3 (07:33→17:12)
[2022-06-01] MEDS ORDERED: POTASSIUM CHLORIDE ORAL LIQUID 20 MEQ/15 ML PO ONE ×2 (10:00→14:00)
[2022-06-01] MEDS: TAMSULOSIN HCL 0.4 MG CAP PO SCH (10:12)
[2022-06-01] MEDS: PRENATAL VITAMINS W/ FOLIC ACID TABLET (FP) PO SCH (10:12)
[2022-06-01] MEDS: amLODIPine BESYLATE 10 MG TABLET (FP) PO SCH (10:12)
[2022-06-01] MEDS: FAMOTIDINE 20 MG TABLET PO SCH ×2 (10:12→22:04)
[2022-06-01] MEDS: METHOCARBAMOL 500 MG TABLET PO PRN (22:04)
[2022-06-01] MEDS: MELATONIN 5 MG TABLETS PO SCH (22:05)
[2022-06-01] MEDS: ACETAMINOPHEN 325 MG TABLET (FP) PO PRN (22:05)
[2022-06-01] MEDS: THIAMINE HCL 100 MG TABLET (FP) PO SCH (22:05)
[2022-06-01 23:12] LABS: EPI CELLS 31 /uL (0-25.1); HYALINE CASTS 5 /uL (0-3.1); URINE APPEARANCE CLOUDY; URINE BACTERIA 69 /uL (0-1359); URINE BILIRUBIN NEGATIVE (NEGATIVE); URINE COLOR YELLOW; URINE GLUCOSE (UA) NEGATIVE (NEGATIVE); URINE KETONE TRACE (NEGATIVE); URINE LEUK ESTERASE 1+ (NEGATIVE); URINE NITRITE NEGATIVE (NEGATIVE); URINE PROTEIN 1+ (NEGATIVE); URINE RBC 51 /uL (0-23.9); URINE WBC 89 /uL (0-25.8)
[2022-06-02] MEDS ORDERED: LORazepam 0.5 MG TABLET PO PRN
[2022-06-02] MEDS: LORazepam 0.5 MG TABLET PO SCH ×4 (05:27→22:09)
[2022-06-02] MEDS: FERROUS SO4 325 MG TABLET (FP) PO SCH ×3 (07:06→17:33)
[2022-06-02] MEDS: amLODIPine BESYLATE 10 MG TABLET (FP) PO SCH (09:16)
[2022-06-02] MEDS: TAMSULOSIN HCL 0.4 MG CAP PO SCH (09:16)
[2022-06-02] MEDS: PRENATAL VITAMINS W/ FOLIC ACID TABLET (FP) PO SCH (09:16)
[2022-06-02] MEDS: FAMOTIDINE 20 MG TABLET PO SCH ×2 (09:16→22:09)
[2022-06-02 17:24] VITALS: RESP 18
[2022-06-02] MEDS: THIAMINE HCL 100 MG TABLET (FP) PO SCH (22:09)
[2022-06-02] MEDS: MELATONIN 5 MG TABLETS PO SCH (22:09)
[2022-06-03] MEDS ORDERED: LORazepam 0.5 MG TABLET PO ONE (05:00)
[2022-06-03 09:34] VITALS: BP 119/63; PULSE 95; TEMP 98
[2022-06-03] MEDS: amLODIPine BESYLATE 10 MG TABLET (FP) PO SCH (09:48)
[2022-06-03] MEDS: TAMSULOSIN HCL 0.4 MG CAP PO SCH (09:49)
[2022-06-03] MEDS: PRENATAL VITAMINS W/ FOLIC ACID TABLET (FP) PO SCH (09:49)
[2022-06-03] MEDS: FERROUS SO4 325 MG TABLET (FP) PO SCH (09:49)
[2022-06-03] MEDS: FAMOTIDINE 20 MG TABLET PO SCH (09:49)
== END 2022-06-03 10:16 | disposition other institution (70) | DRG 775 ==
LOC: YASAS 13:34 → Y6N 16:19
PROVIDERS: ADMIT Allergy & Immunology; ATTEND Surgery
PROC: HZ2ZZZZ Detoxification Services for Substance Abuse Treatment (ICD-10-PCS; principal; 2022-05-30)
DX: F10.230 Alcohol dependence with withdrawal, uncomplicated (principal); I10 Essential (primary) hypertension; K21.00 Gastro-esophageal reflux disease with esophagitis, without bleeding; K70.30 Alcoholic cirrhosis of liver without ascites; M54.50 Low back pain, unspecified; G89.29 Other chronic pain; N40.0 Benign prostatic hyperplasia without lower urinary tract symptoms; Z85.46 Personal history of malignant neoplasm of prostate; Z86.11 Personal history of tuberculosis; Z87.19 Personal history of other diseases of the digestive system
CPT/HCPCS: 36415; 80053; 81003; 84132; 85027; 86780; C9803-CS; U0003; U0005

== ENCOUNTER 2022-09-20 18:40 | Observation (INO) | payer OTHER ==
[2022-09-20] MEDS ORDERED: FOLIC ACID INJECTION - 1 MG, THIAMINE HCL 100 MG, MULTIVIT INJECTION ADULT 10 ML in SOD... IVPB ONE (19:47)
[2022-09-20] MEDS ORDERED: ONDANSETRON 4 MG/2 ML VIAL IVPUSH ONE (19:47)
[2022-09-20] MEDS ORDERED: FAMOTIDINE 20 MG/50 ML IVPB 20 MG/50 ML MG IVPB ONE ×2 (19:47→19:57)
[2022-09-20] MEDS ORDERED: LORazepam 2 MG/ML SDV VIAL IVPUSH ONE (19:55)
[2022-09-20] MEDS ORDERED: ONDANSETRON 4 MG/2 ML VIAL ONE (19:57)
[2022-09-20 20:28] LABS: VENOUS BASE EXCESS 3.8 mmol/L (-2-2); VENOUS O2 SATURATION 54.9 % (70-80); VENOUS PCO2 45.2 mmHg (38-52); VENOUS PH 7.422 (7.310-7.410)
[2022-09-20 20:39] LABS: BASO % 1.1 % (0-2.0); EOS % 0.3 % (0-4.5); HEMATOCRIT 28.5 % (35.4-49); MCH 20.4 pg (25.7-33.7); MCHC 31.7 g/dl (32.0-35.9); MEAN CELL VOLUME 64.2 fl (80-96); MEAN PLT VOLUME 9.1 fl (7.5-11.1); MONO % 5.7 % (3.8-10.2); NEUT % 68.9 % (42.8-82.8); PLATELET COUNT 128 10^3/uL (134-434); RBC 4.44 M/mm3 (4.00-5.60); RDW 25.3 % (11.9-15.9); WHITE BLOOD COUNT 6.8 K/mm3 (4.0-10.0)
[2022-09-20 20:47] LABS: INR 1.15 (0.83-1.09); PROTHROMBIN TIME (PATIENT) 13.3 SEC (9.7-13.0)
[2022-09-20 20:50] LABS: ACTIVATED PTT 30.3 SECONDS (25.2-36.5)
[2022-09-20 21:11] LABS: POTASSIUM 3.4 mmol/L (3.5-5.1)
[2022-09-20 21:14] LABS: BLOOD UREA NITROGEN 18.4 mg/dL (7-18); MAGNESIUM 1.7 mg/dL (1.8-2.4)
[2022-09-20 21:17] LABS: CREATININE 0.5 mg/dL (0.55-1.3)
[2022-09-20 21:19] LABS: BILIRUBIN,TOTAL 0.6 mg/dL (0.2-1); TOT PROT 7.6 g/dl (6.4-8.2)
[2022-09-20 21:43] LABS: ANISOCYTOSIS 1+; MACROCYTOSIS 0; PLATELET ESTIMATE DECREASED
[2022-09-21] MEDS ORDERED: MAGNESIUM SULF 50% (8.12 MEQ/2 ML-1 GM VIAL) IVPB ONE (00:27)
[2022-09-21] MEDS ORDERED: ONDANSETRON 4 MG/2 ML VIAL IVPUSH PRN (00:30)
[2022-09-21] MEDS ORDERED: KCL 10 MEQ IVPB 10 MEQ/100 ML INFUS.BAG IVPB SCH (00:30)
[2022-09-21] MEDS ORDERED: MAGNESIUM SULFATE IN WATER 2 GM/50 ML IVPB IVPB ONE (00:31)
[2022-09-21] MEDS ORDERED: LORazepam 2 MG TABLET PO PRN (01:18)
[2022-09-21] MEDS ORDERED: LORazepam 1 MG TABLET PO PRN (01:18)
[2022-09-21] MEDS: D5-LR+20 MEQ KCL - 20 MEQ/1,000 ML INFUS.BAG IV SCH ×3 (01:32→18:53)
[2022-09-21 03:44] VITALS: BMI 27.4
[2022-09-21] MEDS ORDERED: LORazepam 2 MG TABLET PO SCH (05:00)
[2022-09-21] MEDS: LORazepam 1 MG TABLET PO SCH ×3 (05:06→16:43)
[2022-09-21] MEDS: TAMSULOSIN HCL 0.4 MG CAP PO SCH (08:43)
[2022-09-21] MEDS ORDERED: ENOXAPARIN NA (PORCINE) 40 MG/0.4 ML DISP.SYRIN SQ SCH (10:00)
[2022-09-21 10:45] LABS: URINE APPEARANCE CLEAR; URINE COLOR YELLOW; URINE GLUCOSE (UA) NEGATIVE (NEGATIVE)
[2022-09-21 10:46] LABS: EPI CELLS 5.5 /uL (0-25.1); URINE BILIRUBIN NEGATIVE (NEGATIVE); URINE KETONE 15 mg/dl (NEGATIVE); URINE LEUK ESTERASE TRACE (NEGATIVE); URINE NITRITE POSITIVE (NEGATIVE); URINE PROTEIN 3+ (NEGATIVE); URINE RBC 27.3 /uL (0-23.9); URINE UROBILINOGEN 0.2 mg/dL (0.2-1.0); URINE WBC 1489.3 /uL (0-25.8)
[2022-09-21 10:47] LABS: URINE BACTERIA 712.8 /uL (0-1359)
[2022-09-21] MEDS: FOLIC ACID 1 MG TABLET (FP) PO SCH (10:54)
[2022-09-21] MEDS: THIAMINE HCL 200 MG/2 ML VIAL IVPB SCH (10:54)
[2022-09-21] MEDS: PANTOPRAZOLE SODIUM 40 MG VIAL IVPUSH SCH (10:59)
[2022-09-21 11:29] LABS: BASO % 0.4 % (0-2.0); EOS % 0.6 % (0-4.5); HEMATOCRIT 27.5 % (35.4-49); HEMOGLOBIN 8.3 GM/dL (11.7-16.9); LYMPH % 20.2 % (8-40); MCHC 30.4 g/dl (32.0-35.9); MEAN CELL VOLUME 65.2 fl (80-96); MONO % 9.5 % (3.8-10.2); NEUT % 69.3 % (42.8-82.8); PLATELET COUNT 81 10^3/uL (134-434); RBC 4.21 M/mm3 (4.00-5.60); RDW 24.7 % (11.9-15.9); WHITE BLOOD COUNT 4.3 K/mm3 (4.0-10.0)
[2022-09-21 11:36] LABS: MCH 19.8 pg (25.7-33.7)
[2022-09-21 11:49] LABS: POTASSIUM 3.2 mmol/L (3.5-5.1)
[2022-09-21 11:55] LABS: CREATININE 0.5 mg/dL (0.55-1.3)
[2022-09-21 11:57] LABS: ALBUMIN 3.7 g/dl (3.4-5.0); BLOOD UREA NITROGEN 13.7 mg/dL (7-18)
[2022-09-21 11:59] LABS: PHOSPHOROUS 2.3 mg/dL (2.5-4.9)
[2022-09-21 12:01] LABS: BILIRUBIN,TOTAL 0.8 mg/dL (0.2-1); TOT PROT 7.2 g/dl (6.4-8.2)
[2022-09-21] MEDS ORDERED: NAPH,MB-DB/K PH,MBDB POWDER PACKET PO ONE (13:37)
[2022-09-21] MEDS ORDERED: CALCIUM CARBONATE 650 MG TABLET PO SCH (13:45)
[2022-09-21] MEDS: LISINOPRIL 10 MG TABLET PO SCH (14:35)
[2022-09-21] MEDS ORDERED: IRON SUCROSE INJECTION 200 MG in SODIUM CHLORIDE 90 ML IVPB ONE (14:57)
[2022-09-21 15:22] LABS: PHENCYCLIDINE,URINE NEGATIVE (NEGATIVE); URINE BARBITURATES NEGATIVE (NEGATIVE); URINE BENZODIAZEPINES NEGATIVE (NEGATIVE)
[2022-09-21 15:23] LABS: COCAINE, UR NEGATIVE (NEGATIVE); METHADONE, UR NEGATIVE (NEGATIVE); OPIATES, URI NEGATIVE (NEGATIVE)
[2022-09-21 15:24] LABS: URINE AMPHETAMINES NEGATIVE (NEGATIVE)
[2022-09-22] MEDS: D5-LR+20 MEQ KCL - 20 MEQ/1,000 ML INFUS.BAG IV SCH ×2 (02:20→19:41)
[2022-09-22] MEDS: LORazepam 1 MG TABLET PO SCH ×5 (05:53→22:01)
[2022-09-22] MEDS: TAMSULOSIN HCL 0.4 MG CAP PO SCH (09:05)
[2022-09-22] MEDS ORDERED: IRON SUCROSE INJECTION 200 MG in SODIUM CHLORIDE 90 ML IVPB ONE (10:00)
[2022-09-22] MEDS: FOLIC ACID 1 MG TABLET (FP) PO SCH (10:05)
[2022-09-22] MEDS: LISINOPRIL 10 MG TABLET PO SCH (10:05)
[2022-09-22] MEDS: THIAMINE HCL 200 MG/2 ML VIAL IVPB SCH (10:06)
[2022-09-22] MEDS: PANTOPRAZOLE SODIUM 40 MG VIAL IVPUSH SCH (10:06)
[2022-09-22 10:51] LABS: POTASSIUM 3.4 mmol/L (3.5-5.1)
[2022-09-22 10:54] LABS: CALCIUM 7.9 mg/dL (8.5-10.1)
[2022-09-22 10:55] LABS: ALBUMIN 3.3 g/dl (3.4-5.0); MAGNESIUM 1.8 mg/dL (1.8-2.4)
[2022-09-22 10:58] LABS: PHOSPHOROUS 2.2 mg/dL (2.5-4.9)
[2022-09-22 11:00] LABS: BILIRUBIN,TOTAL 1.3 mg/dL (0.2-1); TOT PROT 6.9 g/dl (6.4-8.2)
[2022-09-22 11:01] LABS: CREATININE 0.4 mg/dL (0.55-1.3)
[2022-09-22 11:14] LABS: HEMATOCRIT 27.2 % (35.4-49); HEMOGLOBIN 8.3 GM/dL (11.7-16.9); MCHC 30.4 g/dl (32.0-35.9); MEAN CELL VOLUME 65.1 fl (80-96); MEAN PLT VOLUME 9.2 fl (7.5-11.1); PLATELET COUNT 58 10^3/uL (134-434); RBC 4.18 M/mm3 (4.00-5.60); RDW 25.3 % (11.9-15.9); WHITE BLOOD COUNT 3.7 K/mm3 (4.0-10.0)
[2022-09-22 11:25] LABS: MCH 19.8 pg (25.7-33.7)
[2022-09-22] MEDS ORDERED: NAPH,MB-DB/K PH,MBDB POWDER PACKET PO ONE (14:13)
[2022-09-23] MEDS ORDERED: LORazepam 0.5 MG TABLET PO PRN
[2022-09-23 04:29] VITALS: RESP 18
[2022-09-23] MEDS: LORazepam 0.5 MG TABLET PO SCH ×2 (05:23→11:33)
[2022-09-23 08:30] LABS: HEMATOCRIT 26.9 % (35.4-49); HEMOGLOBIN 8.4 GM/dL (11.7-16.9); MCH 20.4 pg (25.7-33.7); MCHC 31.4 g/dl (32.0-35.9); MEAN PLT VOLUME 9.4 fl (7.5-11.1); PLATELET COUNT 49 10^3/uL (134-434); RBC 4.13 M/mm3 (4.00-5.60); RDW 25.8 % (11.9-15.9); WHITE BLOOD COUNT 5.7 K/mm3 (4.0-10.0)
[2022-09-23 08:57] LABS: ALBUMIN 3.5 g/dl (3.4-5.0)
[2022-09-23 09:01] LABS: CALCIUM 8.1 mg/dL (8.5-10.1); CREATININE 0.4 mg/dL (0.55-1.3); MAGNESIUM 1.6 mg/dL (1.8-2.4); PHOSPHOROUS 2.3 mg/dL (2.5-4.9)
[2022-09-23 09:02] LABS: BILIRUBIN,TOTAL 1.2 mg/dL (0.2-1); BLOOD UREA NITROGEN 10.4 mg/dL (7-18)
[2022-09-23] MEDS: LISINOPRIL 10 MG TABLET PO SCH (09:26)
[2022-09-23] MEDS: PANTOPRAZOLE SODIUM 40 MG VIAL IVPUSH SCH (09:26)
[2022-09-23] MEDS: TAMSULOSIN HCL 0.4 MG CAP PO SCH (09:26)
[2022-09-23] MEDS: THIAMINE HCL 200 MG/2 ML VIAL IVPB SCH (09:26)
[2022-09-23] MEDS: FOLIC ACID 1 MG TABLET (FP) PO SCH (09:26)
[2022-09-23] MEDS ORDERED: IRON SUCROSE INJECTION 200 MG in SODIUM CHLORIDE 90 ML IVPB ONE (10:00)
[2022-09-23] MEDS ORDERED: NAPH,MB-DB/K PH,MBDB POWDER PACKET PO ONE (10:45)
[2022-09-23] MEDS ORDERED: MAGNESIUM SULF 50% (8.12 MEQ/2 ML-1 GM VIAL) IVPB ONE (10:45)
[2022-09-23] MEDS ORDERED: POTASSIUM CHLORIDE TABS 20 MEQ TABLET.ER (FP) PO ONE (11:00)
[2022-09-23 14:20] VITALS: BP 139/80; PULSE 100; TEMP 99
[2022-09-24] MEDS ORDERED: LORazepam 0.5 MG TABLET PO ONE (05:00)
[2022-09-24] MEDS ORDERED: PANTOPRAZOLE 40 MG TABLET PO SCH (10:00)
== END 2022-09-23 15:35 | disposition left against medical advice (07) ==
LOC: JER 18:40 → JERBED 23:31 → J6S 09-21 02:35
PROVIDERS: ADMIT Internal Medicine; ATTEND Internal Medicine
PROC: 3E033GC Introduction of Other Therapeutic Substance into Peripheral Vein, Percutaneous Approach (ICD-10-PCS; principal; 2022-09-20)
PROC: 3E033NZ Introduction of Analgesics, Hypnotics, Sedatives into Peripheral Vein, Percutaneous Approach (ICD-10-PCS; 2022-09-20)
DX: E87.8 Other disorders of electrolyte and fluid balance, not elsewhere classified (principal); D50.9 Iron deficiency anemia, unspecified; D69.6 Thrombocytopenia, unspecified; F14.90 Cocaine use, unspecified, uncomplicated; N40.0 Benign prostatic hyperplasia without lower urinary tract symptoms; Z29.8 Encounter for other specified prophylactic measures; I10 Essential (primary) hypertension
CPT/HCPCS: 0241U-QW; 36415; 70450-TC; 71045-TC-FY; 74177-TC; 80053; 80307; 81003; 82272; 82728; 82803; 83540; 83550; 83690; 83735; 84100; 84484; 85025; 85027; 85610; 85730; 93005; 93010; 96365; 96366; 96367; 96372; 96375; 99285-25; G0378; J1756; Q9967

== ENCOUNTER 2022-12-05 21:41 | Inpatient (IN) | payer OTHER ==
[2022-12-05 23:26] LABS: BASO % 1.2 % (0-2.0); EOS % 0.2 % (0-4.5); HEMATOCRIT 34.6 % (35.4-49); LYMPH % 27.3 % (8-40); MCH 22.4 pg (25.7-33.7); MCHC 31.6 g/dl (32.0-35.9); MEAN CELL VOLUME 70.6 fl (80-96); MEAN PLT VOLUME 8.2 fl (7.5-11.1); MONO % 7.6 % (3.8-10.2); NEUT % 63.7 % (42.8-82.8); PLATELET COUNT 165 10^3/uL (134-434); RDW 24.5 % (11.9-15.9); WHITE BLOOD COUNT 4.6 K/mm3 (4.0-10.0)
[2022-12-05 23:44] LABS: POTASSIUM 3.5 mmol/L (3.5-5.1)
[2022-12-05 23:47] LABS: ALBUMIN 4.2 g/dl (3.4-5.0); BLOOD UREA NITROGEN 14.1 mg/dL (7-18); MAGNESIUM 1.9 mg/dL (1.8-2.4)
[2022-12-05 23:50] LABS: CREATININE 0.6 mg/dL (0.55-1.3); PHOSPHOROUS 3.1 mg/dL (2.5-4.9)
[2022-12-05 23:52] LABS: BILIRUBIN,TOTAL 0.5 mg/dL (0.2-1); TOT PROT 7.9 g/dl (6.4-8.2)
[2022-12-05 23:56] LABS: ANISOCYTOSIS 3+; TARGET CELLS 1+; TEAR DROP CELLS 1+
[2022-12-05 23:57] LABS: PLATELET ESTIMATE INCREASED
[2022-12-06 00:08] LABS: CALCIUM 8.1 mg/dL (8.5-10.1)
[2022-12-06] MEDS ORDERED: LORazepam 1 MG TABLET PO PRN (01:58)
[2022-12-06] MEDS ORDERED: FOLIC ACID INJECTION - 1 MG, THIAMINE HCL 100 MG, MULTIVIT INJECTION ADULT 10 ML in SOD... IVPB ONE (01:59)
[2022-12-06] MEDS: LORazepam 1 MG TABLET PO SCH ×4 (02:40→17:47)
[2022-12-06 04:07] LABS: EPI CELLS 13 /uL (0-25.1); HYALINE CASTS 5 /uL (0-3.1); URINE APPEARANCE CLEAR; URINE BACTERIA 49 /uL (0-1359); URINE BILIRUBIN NEGATIVE (NEGATIVE); URINE COLOR YELLOW; URINE GLUCOSE (UA) NEGATIVE (NEGATIVE); URINE KETONE 1+ (NEGATIVE); URINE LEUK ESTERASE NEGATIVE (NEGATIVE); URINE NITRITE NEGATIVE (NEGATIVE); URINE PROTEIN 3+ (NEGATIVE); URINE RBC 10 /uL (0-23.9); URINE WBC 18 /uL (0-25.8)
[2022-12-06] MEDS ORDERED: MAG HYDROX/AL HYDROX/SIMETH 30 ML UNIT-DOSE CUP PO ONE (04:16)
[2022-12-06] MEDS ORDERED: MAG HYDROX/AL HYDROX/SIMETH 30 ML UNIT-DOSE CUP ONE (05:59)
[2022-12-06] MEDS ORDERED: LORazepam 1 MG TABLET ONE (05:59)
[2022-12-06 06:47] LABS: EOS % 1.1 % (0-4.5); HEMATOCRIT 33.3 % (35.4-49); HEMOGLOBIN 10.2 GM/dL (11.7-16.9); LYMPH % 33.4 % (8-40); MCH 21.9 pg (25.7-33.7); MCHC 30.5 g/dl (32.0-35.9); MEAN CELL VOLUME 71.9 fl (80-96); MEAN PLT VOLUME 8.7 fl (7.5-11.1); MONO % 7.9 % (3.8-10.2); NEUT % 56.6 % (42.8-82.8); PLATELET COUNT 144 10^3/uL (134-434); RBC 4.64 M/mm3 (4.00-5.60); RDW 24.4 % (11.9-15.9); WHITE BLOOD COUNT 3.1 K/mm3 (4.0-10.0)
[2022-12-06 06:53] LABS: POTASSIUM 3.4 mmol/L (3.5-5.1)
[2022-12-06 06:56] LABS: ALBUMIN 3.9 g/dl (3.4-5.0); BLOOD UREA NITROGEN 13.8 mg/dL (7-18); MAGNESIUM 1.9 mg/dL (1.8-2.4)
[2022-12-06 06:59] LABS: CREATININE 0.3 mg/dL (0.55-1.3); PHOSPHOROUS 2.8 mg/dL (2.5-4.9)
[2022-12-06 07:00] LABS: TOT PROT 7.5 g/dl (6.4-8.2)
[2022-12-06 07:01] LABS: BILIRUBIN,TOTAL 0.6 mg/dL (0.2-1)
[2022-12-06] MEDS ORDERED: THIAMINE HCL 200 MG/2 ML VIAL ONE (08:24)
[2022-12-06] MEDS ORDERED: FOLIC ACID 1 MG TABLET (FP) ONE (08:24)
[2022-12-06] MEDS ORDERED: PANTOPRAZOLE 40 MG TABLET PO ONE (08:24)
[2022-12-06] MEDS ORDERED: LISINOPRIL 10 MG TABLET ONE (08:24)
[2022-12-06] MEDS ORDERED: TAMSULOSIN HCL 0.4 MG CAP ONE (08:24)
[2022-12-06] MEDS ORDERED: ENOXAPARIN NA (PORCINE) 40 MG/0.4 ML DISP.SYRIN SQ ONE (08:25)
[2022-12-06] MEDS: FOLIC ACID 1 MG TABLET (FP) PO SCH (09:32)
[2022-12-06] MEDS: TAMSULOSIN HCL 0.4 MG CAP PO SCH (09:32)
[2022-12-06] MEDS: ENOXAPARIN NA (PORCINE) 40 MG/0.4 ML DISP.SYRIN SQ SCH (09:32)
[2022-12-06] MEDS: THIAMINE HCL 200 MG/2 ML VIAL IVPB SCH (09:33)
[2022-12-06] MEDS: LISINOPRIL 10 MG TABLET PO SCH (09:33)
[2022-12-06] MEDS: PANTOPRAZOLE 40 MG TABLET PO SCH ×2 (09:33→22:18)
[2022-12-06 09:45] LABS: COCAINE, UR NEGATIVE (NEGATIVE); METHADONE, UR NEGATIVE (NEGATIVE); OPIATES, URI NEGATIVE (NEGATIVE); PHENCYCLIDINE,URINE NEGATIVE (NEGATIVE); URINE AMPHETAMINES NEGATIVE (NEGATIVE); URINE BARBITURATES NEGATIVE (NEGATIVE); URINE BENZODIAZEPINES NEGATIVE (NEGATIVE)
[2022-12-06 11:55] VITALS: BMI 27.1
[2022-12-06] MEDS: ONDANSETRON 4 MG/2 ML VIAL IVPUSH PRN ×2 (14:13→19:15)
[2022-12-06] MEDS: LACTATED RINGERS SOLUTION 1,000 ML/1,000 ML INFUS.BAG IV SCH (17:47)
[2022-12-07] MEDS: LORazepam 1 MG TABLET PO SCH ×4 (06:16→22:16)
[2022-12-07] MEDS: LACTATED RINGERS SOLUTION 1,000 ML/1,000 ML INFUS.BAG IV SCH ×2 (07:15→14:23)
[2022-12-07 07:23] LABS: POTASSIUM 3.2 mmol/L (3.5-5.1)
[2022-12-07 07:24] LABS: CALCIUM 8.5 mg/dL (8.5-10.1)
[2022-12-07 07:25] LABS: BLOOD UREA NITROGEN 9.5 mg/dL (7-18)
[2022-12-07 07:28] LABS: CREATININE 0.4 mg/dL (0.55-1.3)
[2022-12-07] MEDS: TAMSULOSIN HCL 0.4 MG CAP PO SCH (09:43)
[2022-12-07] MEDS: THIAMINE HCL 200 MG/2 ML VIAL IVPB SCH (09:43)
[2022-12-07] MEDS: LISINOPRIL 10 MG TABLET PO SCH (09:43)
[2022-12-07] MEDS: ONDANSETRON 4 MG/2 ML VIAL IVPUSH PRN (09:43)
[2022-12-07] MEDS: FOLIC ACID 1 MG TABLET (FP) PO SCH (09:43)
[2022-12-07] MEDS: PANTOPRAZOLE 40 MG TABLET PO SCH ×2 (09:43→21:11)
[2022-12-07] MEDS: ENOXAPARIN NA (PORCINE) 40 MG/0.4 ML DISP.SYRIN SQ SCH (09:44)
[2022-12-07] MEDS: MULTIVIT-MINERALS ORAL LIQUID PO SCH (09:47)
[2022-12-07] MEDS ORDERED: POTASSIUM CHLORIDE ORAL LIQUID 20 MEQ/15 ML PO ONE (10:30)
[2022-12-08] MEDS ORDERED: LORazepam 0.5 MG TABLET PO PRN
[2022-12-08] MEDS: LORazepam 0.5 MG TABLET PO SCH ×4 (05:24→22:07)
[2022-12-08] MEDS: ENOXAPARIN NA (PORCINE) 40 MG/0.4 ML DISP.SYRIN SQ SCH (09:30)
[2022-12-08] MEDS: TAMSULOSIN HCL 0.4 MG CAP PO SCH (09:30)
[2022-12-08] MEDS: THIAMINE HCL 200 MG/2 ML VIAL IVPB SCH (09:30)
[2022-12-08] MEDS: MULTIVIT-MINERALS ORAL LIQUID PO SCH (09:30)
[2022-12-08] MEDS: PANTOPRAZOLE 40 MG TABLET PO SCH (09:30)
[2022-12-08] MEDS: LISINOPRIL 10 MG TABLET PO SCH (09:30)
[2022-12-08] MEDS: FOLIC ACID 1 MG TABLET (FP) PO SCH (09:31)
[2022-12-08] MEDS ORDERED: POTASSIUM CHLORIDE TABS 20 MEQ TABLET.ER (FP) PO ONE (10:52)
[2022-12-08] MEDS: CEFTRIAXONE 1 GM in DEXTROSE 5%-WATER - 50 ML IVPB SCH (16:51)
[2022-12-09] MEDS ORDERED: LORazepam 0.5 MG TABLET PO ONE (05:00)
[2022-12-09 08:14] LABS: POTASSIUM 3.6 mmol/L (3.5-5.1)
[2022-12-09 08:15] LABS: INR 1.17 (0.83-1.09); PROTHROMBIN TIME (PATIENT) 13.5 SEC (9.7-13.0)
[2022-12-09 08:20] LABS: ALBUMIN 3.7 g/dl (3.4-5.0); BLOOD UREA NITROGEN 6.2 mg/dL (7-18)
[2022-12-09 08:22] LABS: ALBUMIN 3.6 g/dl (3.4-5.0); MAGNESIUM 1.7 mg/dL (1.8-2.4); PHOSPHOROUS 3.7 mg/dL (2.5-4.9)
[2022-12-09 08:23] LABS: CREATININE 0.5 mg/dL (0.55-1.3)
[2022-12-09 08:24] LABS: TOT PROT 7.2 g/dl (6.4-8.2)
[2022-12-09 08:25] LABS: BILIRUBIN,DIRECT 0.1 mg/dL (0.0-0.2); TOT PROT 7.2 g/dl (6.4-8.2)
[2022-12-09 08:27] LABS: BILIRUBIN,TOTAL 0.8 mg/dL (0.2-1)
[2022-12-09 08:28] LABS: BILIRUBIN,TOTAL 0.6 mg/dL (0.2-1)
[2022-12-09 08:47] LABS: HEMATOCRIT 34.4 % (35.4-49); HEMOGLOBIN 10.5 GM/dL (11.7-16.9); MCH 22.3 pg (25.7-33.7); MCHC 30.6 g/dl (32.0-35.9); MEAN CELL VOLUME 72.8 fl (80-96); RBC 4.72 M/mm3 (4.00-5.60); RDW 24.5 % (11.9-15.9); WHITE BLOOD COUNT 3.4 K/mm3 (4.0-10.0)
[2022-12-09 08:50] LABS: MEAN PLT VOLUME 9.4 fl (7.5-11.1); PLATELET COUNT 89 10^3/uL (134-434)
[2022-12-09 08:52] VITALS: TEMP 97.5
[2022-12-09] MEDS: TAMSULOSIN HCL 0.4 MG CAP PO SCH (08:52)
[2022-12-09] MEDS: FOLIC ACID 1 MG TABLET (FP) PO SCH ×2 (08:52→09:02)
[2022-12-09] MEDS: LISINOPRIL 10 MG TABLET PO SCH ×2 (08:53→09:02)
[2022-12-09] MEDS: PANTOPRAZOLE 40 MG TABLET PO SCH ×2 (08:53→09:02)
[2022-12-09] MEDS: THIAMINE HCL 200 MG/2 ML VIAL IVPB SCH ×2 (08:53→09:03)
[2022-12-09] MEDS: CEFTRIAXONE 1 GM in DEXTROSE 5%-WATER - 50 ML IVPB SCH ×2 (08:53→09:03)
[2022-12-09 09:09] LABS: ANISOCYTOSIS 2+; MACROCYTOSIS 0
[2022-12-09] MEDS ORDERED: MAGNESIUM OXIDE 400 MG TABLET (FP) PO ONE (10:54)
[2022-12-09] MEDS: MULTIVIT-MINERALS ORAL LIQUID PO SCH (13:51)
[2022-12-09 14:18] VITALS: PULSE 80; RESP 12
[2022-12-09 14:30] VITALS: BP 114/76
[2022-12-11 10:10] LABS: ANTIGLOMERULAR BASEMENT MEN.AB <0.2 units (0.0-0.9)
[2022-12-13 16:12] LABS: ATYPICAL pANCA <1:20 titer (Neg:<1:20); C-ANCA <1:20 titer (Neg:<1:20)
== END 2022-12-09 16:45 | disposition home or self-care (01) | DRG 775 ==
LOC: JER 21:41 → JERBED 12-06 00:27 → J2W 12-06 11:31 → OBSVTOIN 12-07 10:19
PROVIDERS: ADMIT Internal Medicine
PROC: HZ2ZZZZ Detoxification Services for Substance Abuse Treatment (ICD-10-PCS; principal; 2022-12-07)
DX: F10.139 Alcohol abuse with withdrawal, unspecified (principal); I10 Essential (primary) hypertension; D64.9 Anemia, unspecified; E87.6 Hypokalemia; K21.9 Gastro-esophageal reflux disease without esophagitis; N40.0 Benign prostatic hyperplasia without lower urinary tract symptoms; R33.9 Retention of urine, unspecified
CPT/HCPCS: 36415; 71045-TC-FY; 80048; 80053; 80061; 80076; 80307; 81003; 82977; 83036; 83516; 83520; 83540; 83550; 83735; 84100; 84439; 84443; 84484; 85025; 85610; 86038; 86225; 86256; 86704; 86706; 86780; 86803; 87086; 87186; 93005; 93010; 93306-TC; 97116-GP; 97162-GP; 99285-25; G0378

== ENCOUNTER 2023-03-12 12:25 | Inpatient (IN) | payer SELFPAY ==
[2023-03-12 13:30] VITALS: BMI 25.4
[2023-03-12] MEDS ORDERED: LORazepam 1 MG TABLET PO PRN (13:59)
[2023-03-12] MEDS ORDERED: BISMUTH SUBSALICYLATE 524 MG/30 ML PO PRN (13:59)
[2023-03-12] MEDS ORDERED: IBUPROFEN 400 MG TABLET (FP) PO PRN (13:59)
[2023-03-12] MEDS ORDERED: ONDANSETRON *ODT* 4 MG TABLET SL PRN (13:59)
[2023-03-12] MEDS ORDERED: IBUPROFEN 600 MG TABLET (FP) PO PRN (13:59)
[2023-03-12] MEDS ORDERED: POLYETHYLENE GLYCOL (HEALTHYLAX) 3350 17 GM PACKET PO PRN (13:59)
[2023-03-12] MEDS ORDERED: DICYCLOMINE HCL 10 MG CAPSULE PO PRN (13:59)
[2023-03-12] MEDS ORDERED: LOPERAMIDE HCL 2 MG CAPSULE PO PRN (13:59)
[2023-03-12] MEDS ORDERED: BENZONATATE 200 MG CAPSULE PO PRN (13:59)
[2023-03-12] MEDS ORDERED: ACETAMINOPHEN 325 MG TABLET (FP) PO PRN (13:59)
[2023-03-12] MEDS ORDERED: NALOXONE HCL (KLOXXADO) 8 MG SPRAY NS PRN (13:59)
[2023-03-12] MEDS ORDERED: MAG HYDROX/AL HYDROX/SIMETH 30 ML UNIT-DOSE CUP PO PRN (13:59)
[2023-03-12] MEDS ORDERED: MAGNESIUM HYDROX 2400MG/30ML ORAL SUSPENSION 30 ML CUP PO PRN (13:59)
[2023-03-12] MEDS ORDERED: guaiFENesin 600 MG TABLET.ER (FP) PO PRN (13:59)
[2023-03-12] MEDS ORDERED: NALOXONE HCL 0.4 MG/ML VIAL IM PRN (13:59)
[2023-03-12] MEDS ORDERED: METHOCARBAMOL 500 MG TABLET PO PRN (13:59)
[2023-03-12] MEDS ORDERED: BENZOCAINE/MENTHOL (CHLORASEPTIC ) LOZENGE MM PRN (13:59)
[2023-03-12] MEDS ORDERED: PANTOPRAZOLE 40 MG TABLET PO SCH (14:15)
[2023-03-12] MEDS ORDERED: LORazepam 2 MG TABLET PO SCH (17:00)
[2023-03-12 19:17] VITALS: RESP 17; TEMP 98
[2023-03-12 19:21] VITALS: BP 117/70; PULSE 103
[2023-03-12] MEDS ORDERED: MELATONIN 5 MG TABLETS PO SCH (22:00)
[2023-03-12] MEDS ORDERED: THIAMINE HCL 100 MG TABLET (FP) PO SCH (22:00)
[2023-03-13] MEDS ORDERED: TAMSULOSIN HCL 0.4 MG CAP PO SCH (08:30)
[2023-03-13] MEDS ORDERED: PRENATAL VITAMINS W/ FOLIC ACID TABLET (FP) PO SCH (10:00)
[2023-03-13] MEDS ORDERED: LISINOPRIL 10 MG TABLET PO SCH (10:00)
[2023-03-14] MEDS ORDERED: LORazepam 1 MG TABLET PO SCH (05:00)
[2023-03-15] MEDS ORDERED: LORazepam 0.5 MG TABLET PO PRN
[2023-03-15] MEDS ORDERED: LORazepam 0.5 MG TABLET PO SCH (05:00)
[2023-03-16] MEDS ORDERED: LORazepam 0.5 MG TABLET PO ONE (05:00)
== END 2023-03-12 19:20 | disposition left against medical advice (07) | DRG 770 ==
LOC: YASAS 12:25 → Y6N 15:48
PROVIDERS: ADMIT Allergy & Immunology; ATTEND Surgery
PROC: HZ2ZZZZ Detoxification Services for Substance Abuse Treatment (ICD-10-PCS; principal; 2023-03-12)
DX: F10.230 Alcohol dependence with withdrawal, uncomplicated (principal); F14.10 Cocaine abuse, uncomplicated; I10 Essential (primary) hypertension; N40.0 Benign prostatic hyperplasia without lower urinary tract symptoms; Z85.46 Personal history of malignant neoplasm of prostate; Z86.11 Personal history of tuberculosis; Z87.19 Personal history of other diseases of the digestive system
CPT/HCPCS: 87635

== ENCOUNTER 2023-03-20 18:21 | Inpatient (IN) | payer OTHER ==
[2023-03-20 19:03] VITALS: BMI 25.3
[2023-03-20] MEDS ORDERED: LORazepam 1 MG TABLET PO PRN (21:55)
[2023-03-20] MEDS ORDERED: IBUPROFEN 400 MG TABLET (FP) PO PRN (21:56)
[2023-03-20] MEDS ORDERED: BENZOCAINE/MENTHOL (CHLORASEPTIC ) LOZENGE MM PRN (21:56)
[2023-03-20] MEDS ORDERED: IBUPROFEN 600 MG TABLET (FP) PO PRN (21:56)
[2023-03-20] MEDS ORDERED: NALOXONE HCL 0.4 MG/ML VIAL IM PRN (21:56)
[2023-03-20] MEDS ORDERED: ACETAMINOPHEN 325 MG TABLET (FP) PO PRN (21:56)
[2023-03-20] MEDS ORDERED: MAG HYDROX/AL HYDROX/SIMETH 30 ML UNIT-DOSE CUP PO PRN (21:56)
[2023-03-20] MEDS ORDERED: MAGNESIUM HYDROX 2400MG/30ML ORAL SUSPENSION 30 ML CUP PO PRN (21:56)
[2023-03-20] MEDS ORDERED: BENZONATATE 200 MG CAPSULE PO PRN (21:56)
[2023-03-20] MEDS ORDERED: guaiFENesin 600 MG TABLET.ER (FP) PO PRN (21:56)
[2023-03-20] MEDS ORDERED: LOPERAMIDE HCL 2 MG CAPSULE PO PRN (21:56)
[2023-03-20] MEDS ORDERED: ONDANSETRON *ODT* 4 MG TABLET SL PRN (21:56)
[2023-03-20] MEDS ORDERED: POLYETHYLENE GLYCOL (HEALTHYLAX) 3350 17 GM PACKET PO PRN (21:56)
[2023-03-20] MEDS ORDERED: BISMUTH SUBSALICYLATE 524 MG/30 ML PO PRN (21:56)
[2023-03-20] MEDS ORDERED: NALOXONE HCL (KLOXXADO) 8 MG SPRAY NS PRN (21:56)
[2023-03-20] MEDS ORDERED: LORazepam 1 MG TABLET ONE (22:32)
[2023-03-20] MEDS ORDERED: MELATONIN 5 MG TABLETS ONE (22:32)
[2023-03-20] MEDS: MELATONIN 5 MG TABLETS PO SCH (22:51)
[2023-03-20] MEDS: LORazepam 1 MG TABLET PO SCH (22:52)
[2023-03-20] MEDS: THIAMINE HCL 100 MG TABLET (FP) PO SCH (22:52)
[2023-03-21] MEDS: LORazepam 1 MG TABLET PO SCH ×4 (05:42→22:31)
[2023-03-21] MEDS: PRENATAL VITAMINS W/ FOLIC ACID TABLET (FP) PO SCH (10:17)
[2023-03-21 11:37] LABS: POTASSIUM 3.4 mmol/L (3.5-5.1)
[2023-03-21 11:47] LABS: ALBUMIN 3.8 g/dl (3.4-5.0); BLOOD UREA NITROGEN 13.7 mg/dL (7-18)
[2023-03-21 11:49] LABS: CREATININE 0.5 mg/dL (0.55-1.3)
[2023-03-21 11:51] LABS: BILIRUBIN,TOTAL 0.8 mg/dL (0.2-1); TOT PROT 7.4 g/dl (6.4-8.2)
[2023-03-21 11:56] LABS: HEMOGLOBIN 9.9 GM/dL (11.7-16.9); MCH 21.5 pg (25.7-33.7); MCHC 31.8 g/dl (32.0-35.9); MEAN CELL VOLUME 67.5 fl (80-96); RBC 4.59 M/mm3 (4.00-5.60); RDW 22.6 % (11.9-15.9); WHITE BLOOD COUNT 4.8 K/mm3 (4.0-10.0)
[2023-03-21 12:11] LABS: PLATELET COUNT 71 10^3/uL (134-434)
[2023-03-21] MEDS: PANTOPRAZOLE 40 MG TABLET PO SCH (17:17)
[2023-03-21] MEDS: LISINOPRIL 10 MG TABLET PO SCH (17:17)
[2023-03-21] MEDS: POTASSIUM CHLORIDE ORAL LIQUID 20 MEQ/15 ML PO SCH (22:31)
[2023-03-21] MEDS: THIAMINE HCL 100 MG TABLET (FP) PO SCH (22:31)
[2023-03-21] MEDS: MELATONIN 5 MG TABLETS PO SCH (22:31)
[2023-03-22] MEDS: LORazepam 1 MG TABLET PO SCH ×4 (05:24→22:16)
[2023-03-22] MEDS: TAMSULOSIN HCL 0.4 MG CAP PO SCH (09:01)
[2023-03-22] MEDS: POTASSIUM CHLORIDE ORAL LIQUID 20 MEQ/15 ML PO SCH (09:58)
[2023-03-22] MEDS: PRENATAL VITAMINS W/ FOLIC ACID TABLET (FP) PO SCH (09:58)
[2023-03-22] MEDS: PANTOPRAZOLE 40 MG TABLET PO SCH (09:59)
[2023-03-22] MEDS: LISINOPRIL 10 MG TABLET PO SCH (09:59)
[2023-03-22] MEDS: MELATONIN 5 MG TABLETS PO SCH (22:16)
[2023-03-22] MEDS: THIAMINE HCL 100 MG TABLET (FP) PO SCH (22:16)
[2023-03-23] MEDS ORDERED: LORazepam 0.5 MG TABLET PO PRN
[2023-03-23] MEDS: LORazepam 0.5 MG TABLET PO SCH ×4 (05:22→22:26)
[2023-03-23] MEDS: TAMSULOSIN HCL 0.4 MG CAP PO SCH (07:30)
[2023-03-23] MEDS: LISINOPRIL 10 MG TABLET PO SCH (10:05)
[2023-03-23] MEDS: PRENATAL VITAMINS W/ FOLIC ACID TABLET (FP) PO SCH (10:05)
[2023-03-23] MEDS: PANTOPRAZOLE 40 MG TABLET PO SCH (10:05)
[2023-03-23] MEDS: MELATONIN 5 MG TABLETS PO SCH (22:26)
[2023-03-23] MEDS: THIAMINE HCL 100 MG TABLET (FP) PO SCH (22:26)
[2023-03-24] MEDS ORDERED: LORazepam 0.5 MG TABLET PO ONE (05:00)
[2023-03-24 06:31] VITALS: RESP 18
[2023-03-24] MEDS: TAMSULOSIN HCL 0.4 MG CAP PO SCH (08:56)
[2023-03-24 09:53] VITALS: BP 138/80; PULSE 91; TEMP 98.2
== END 2023-03-24 09:50 | disposition home or self-care (01) | DRG 775 ==
LOC: YASAS 18:21 → Y3N 22:15
PROVIDERS: ADMIT Allergy & Immunology; ATTEND Surgery
PROC: HZ2ZZZZ Detoxification Services for Substance Abuse Treatment (ICD-10-PCS; principal; 2023-03-20)
DX: F10.230 Alcohol dependence with withdrawal, uncomplicated (principal); D64.9 Anemia, unspecified; E87.6 Hypokalemia; I10 Essential (primary) hypertension; K70.30 Alcoholic cirrhosis of liver without ascites; Z85.46 Personal history of malignant neoplasm of prostate; Z86.11 Personal history of tuberculosis; Z87.19 Personal history of other diseases of the digestive system; Z87.891 Personal history of nicotine dependence
CPT/HCPCS: 36415; 80053; 80307; 84132; 85027; 86780; 87635; 93005; 93010

== ENCOUNTER 2023-05-22 13:14 | Inpatient (IN) | payer OTHER ==
[2023-05-22 13:56] VITALS: BMI 25.8
[2023-05-22] MEDS ORDERED: ACETAMINOPHEN 325 MG TABLET (FP) PO ONE (15:13)
[2023-05-22] MEDS ORDERED: ACETAMINOPHEN 325 MG TABLET (FP) ONE (15:19)
[2023-05-22] MEDS ORDERED: MAGNESIUM HYDROX 2400MG/30ML ORAL SUSPENSION 30 ML CUP PO PRN (15:34)
[2023-05-22] MEDS ORDERED: POLYETHYLENE GLYCOL (HEALTHYLAX) 3350 17 GM PACKET PO PRN (15:34)
[2023-05-22] MEDS ORDERED: ACETAMINOPHEN 325 MG TABLET (FP) PO PRN (15:34)
[2023-05-22] MEDS ORDERED: DICYCLOMINE HCL 10 MG CAPSULE PO PRN (15:34)
[2023-05-22] MEDS ORDERED: MAG HYDROX/AL HYDROX/SIMETH 30 ML UNIT-DOSE CUP PO PRN (15:34)
[2023-05-22] MEDS ORDERED: LOPERAMIDE HCL 2 MG CAPSULE PO PRN (15:34)
[2023-05-22] MEDS ORDERED: LORazepam 2 MG TABLET PO ONE (15:34)
[2023-05-22] MEDS ORDERED: BENZOCAINE/MENTHOL (CHLORASEPTIC ) LOZENGE MM PRN (15:34)
[2023-05-22] MEDS ORDERED: METHOCARBAMOL 500 MG TABLET PO PRN (15:34)
[2023-05-22] MEDS ORDERED: guaiFENesin 600 MG TABLET.ER (FP) PO PRN (15:34)
[2023-05-22] MEDS ORDERED: ONDANSETRON *ODT* 4 MG TABLET SL PRN (15:34)
[2023-05-22] MEDS ORDERED: NALOXONE HCL (KLOXXADO) 8 MG SPRAY NS PRN (15:34)
[2023-05-22] MEDS ORDERED: BENZONATATE 200 MG CAPSULE PO PRN (15:34)
[2023-05-22] MEDS ORDERED: NALOXONE HCL 0.4 MG/ML VIAL IM PRN (15:34)
[2023-05-22] MEDS ORDERED: BISMUTH SUBSALICYLATE 524 MG/30 ML PO PRN (15:34)
[2023-05-22] MEDS ORDERED: LORazepam 1 MG TABLET PO ONE (16:54)
[2023-05-22] MEDS ORDERED: LORazepam 2 MG TABLET ONE (16:56)
[2023-05-22] MEDS: LORazepam 2 MG TABLET PO SCH ×2 (16:57→22:48)
[2023-05-22] MEDS: THIAMINE HCL 100 MG TABLET (FP) PO SCH (22:48)
[2023-05-22] MEDS: MELATONIN 5 MG TABLETS PO SCH (22:48)
[2023-05-22] MEDS: FERROUS SO4 325 MG TABLET (FP) PO SCH (22:50)
[2023-05-23] MEDS: LORazepam 2 MG TABLET PO SCH ×4 (05:41→22:01)
[2023-05-23] MEDS: TAMSULOSIN HCL 0.4 MG CAP PO SCH (09:12)
[2023-05-23 10:00] LABS: HEMATOCRIT 36.1 % (35.4-49); HEMOGLOBIN 11.4 GM/dL (11.7-16.9); MCH 22.4 pg (25.7-33.7); MCHC 31.7 g/dl (32.0-35.9); MEAN CELL VOLUME 70.5 fl (80-96); MEAN PLT VOLUME 8.9 fl (7.5-11.1); PLATELET COUNT 140 10^3/uL (134-434); RBC 5.12 M/mm3 (4.00-5.60); RDW 21.1 % (11.9-15.9); WHITE BLOOD COUNT 5.7 K/mm3 (4.0-10.0)
[2023-05-23 10:03] LABS: CHLORIDE 102 mmol/L (98-107); POTASSIUM 3.6 mmol/L (3.5-5.1); SODIUM 137 mmol/L (136-145)
[2023-05-23 10:05] LABS: ALBUMIN 3.8 g/dl (3.4-5.0); ANION GAP 8 mmol/L (4-13); CO2 27 mmol/L (21-32)
[2023-05-23 10:06] LABS: GLUCOSE,RANDOM 90 mg/dL (74-106)
[2023-05-23 10:09] LABS: CREATININE 0.5 mg/dL (0.55-1.3); SGOT/AST 50 U/L (15-37); SGPT/ALT 31 U/L (13-61)
[2023-05-23 10:11] LABS: BILIRUBIN,TOTAL 1.6 mg/dL (0.2-1); TOT PROT 7.8 g/dl (6.4-8.2)
[2023-05-23 10:12] LABS: ALK PHOS 80 U/L (45-117)
[2023-05-23] MEDS: FERROUS SO4 325 MG TABLET (FP) PO SCH ×2 (10:12→22:01)
[2023-05-23] MEDS: PRENATAL VITAMINS W/ FOLIC ACID TABLET (FP) PO SCH (10:12)
[2023-05-23] MEDS: LISINOPRIL 10 MG TABLET PO SCH (10:12)
[2023-05-23] MEDS: PANTOPRAZOLE 40 MG TABLET PO SCH (10:12)
[2023-05-23] MEDS ORDERED: FLU VACCINE (FLULAVAL) PF 60 MCG/0.5 ML SYRINGE 2023-2024 IM ONE (12:00)
[2023-05-23] MEDS ORDERED: PNEUMOC 20-VAL CONJ-DIP CRM/PF 0.5 ML SYRINGE IM ONE (12:00)
[2023-05-23] MEDS: LORazepam 1 MG TABLET PO PRN (12:39)
[2023-05-23] MEDS: MELATONIN 5 MG TABLETS PO SCH (22:01)
[2023-05-23] MEDS: THIAMINE HCL 100 MG TABLET (FP) PO SCH (22:01)
[2023-05-24] MEDS: LORazepam 1 MG TABLET PO SCH ×4 (05:41→22:03)
[2023-05-24] MEDS: TAMSULOSIN HCL 0.4 MG CAP PO SCH (09:28)
[2023-05-24] MEDS: LACTULOSE 20 GM/30 ML UDC (FOR ORAL USE ONLY) PO SCH ×4 (10:09→22:04)
[2023-05-24] MEDS: PRENATAL VITAMINS W/ FOLIC ACID TABLET (FP) PO SCH (10:09)
[2023-05-24] MEDS: FERROUS SO4 325 MG TABLET (FP) PO SCH ×2 (10:10→22:02)
[2023-05-24] MEDS: LISINOPRIL 10 MG TABLET PO SCH (10:10)
[2023-05-24] MEDS: PANTOPRAZOLE 40 MG TABLET PO SCH (10:10)
[2023-05-24] MEDS: LORazepam 1 MG TABLET PO PRN ×3 (13:33→23:52)
[2023-05-24] MEDS: THIAMINE HCL 100 MG TABLET (FP) PO SCH (22:03)
[2023-05-24] MEDS: MELATONIN 5 MG TABLETS PO SCH (22:04)
[2023-05-25] MEDS ORDERED: LORazepam 0.5 MG TABLET PO PRN
[2023-05-25] MEDS: LORazepam 0.5 MG TABLET PO SCH ×4 (05:40→22:16)
[2023-05-25] MEDS: TAMSULOSIN HCL 0.4 MG CAP PO SCH (08:25)
[2023-05-25] MEDS: LISINOPRIL 10 MG TABLET PO SCH (09:35)
[2023-05-25] MEDS: PRENATAL VITAMINS W/ FOLIC ACID TABLET (FP) PO SCH (09:35)
[2023-05-25] MEDS: FERROUS SO4 325 MG TABLET (FP) PO SCH ×2 (09:35→22:16)
[2023-05-25] MEDS: PANTOPRAZOLE 40 MG TABLET PO SCH (09:35)
[2023-05-25] MEDS: LACTULOSE 20 GM/30 ML UDC (FOR ORAL USE ONLY) PO SCH ×4 (09:35→22:15)
[2023-05-25 13:21] LABS: HEMATOCRIT 34.5 % (35.4-49); HEMOGLOBIN 10.7 GM/dL (11.7-16.9); MCH 22.2 pg (25.7-33.7); MEAN CELL VOLUME 71.5 fl (80-96); MEAN PLT VOLUME 9.7 fl (7.5-11.1); PLATELET COUNT 125 10^3/uL (134-434); RBC 4.82 M/mm3 (4.00-5.60); WHITE BLOOD COUNT 4.6 K/mm3 (4.0-10.0)
[2023-05-25 13:23] LABS: POTASSIUM 3.8 mmol/L (3.5-5.1)
[2023-05-25 13:28] LABS: ALBUMIN 3.6 g/dl (3.4-5.0); CALCIUM 9.3 mg/dL (8.5-10.1)
[2023-05-25 13:31] LABS: BILIRUBIN,TOTAL 0.4 mg/dL (0.2-1)
[2023-05-25 13:34] LABS: TOT PROT 7.4 g/dl (6.4-8.2)
[2023-05-25 14:20] LABS: BLOOD UREA NITROGEN 11.4 mg/dL (7-18); CREATININE 0.5 mg/dL (0.55-1.3)
[2023-05-25] MEDS: MELATONIN 5 MG TABLETS PO SCH (22:16)
[2023-05-25] MEDS: THIAMINE HCL 100 MG TABLET (FP) PO SCH (22:16)
[2023-05-26] MEDS ORDERED: LORazepam 0.5 MG TABLET PO ONE (05:00)
[2023-05-26] MEDS: LISINOPRIL 10 MG TABLET PO SCH (09:26)
[2023-05-26] MEDS: FERROUS SO4 325 MG TABLET (FP) PO SCH (09:26)
[2023-05-26] MEDS: PANTOPRAZOLE 40 MG TABLET PO SCH (09:26)
[2023-05-26] MEDS: TAMSULOSIN HCL 0.4 MG CAP PO SCH (09:26)
[2023-05-26] MEDS: LACTULOSE 20 GM/30 ML UDC (FOR ORAL USE ONLY) PO SCH (09:27)
[2023-05-26] MEDS: PRENATAL VITAMINS W/ FOLIC ACID TABLET (FP) PO SCH (09:27)
[2023-05-26 11:05] VITALS: BP 127/74; PULSE 74; RESP 16; TEMP 97.6
== END 2023-05-26 11:00 | disposition home or self-care (01) | DRG 775 ==
LOC: YASAS 13:14 → Y3N 16:38 → Y6N 05-25 12:37
PROVIDERS: ADMIT Allergy & Immunology; ATTEND Surgery
PROC: HZ2ZZZZ Detoxification Services for Substance Abuse Treatment (ICD-10-PCS; principal; 2023-05-22)
DX: F10.230 Alcohol dependence with withdrawal, uncomplicated (principal); E72.20 Disorder of urea cycle metabolism, unspecified; I10 Essential (primary) hypertension; K21.9 Gastro-esophageal reflux disease without esophagitis; K74.60 Unspecified cirrhosis of liver; N40.0 Benign prostatic hyperplasia without lower urinary tract symptoms; Z85.46 Personal history of malignant neoplasm of prostate; Z86.2 Personal history of diseases of the blood and blood-forming organs and certain disorders involving the immune mechanism; Z86.69 Personal history of other diseases of the nervous system and sense organs; Z87.19 Personal history of other diseases of the digestive system; Z86.11 Personal history of tuberculosis
CPT/HCPCS: 36415; 80053; 80307; 82140; 85027; 86780; 87635; 90677; 90686; 93005; 93010; G0008; Q0162

== ENCOUNTER 2023-11-14 11:32 | Inpatient (IN) | payer OTHER ==
[2023-11-14 12:23] VITALS: BMI 24.2
[2023-11-14] MEDS ORDERED: MAGNESIUM HYDROX 2400MG/30ML ORAL SUSPENSION 30 ML CUP PO PRN (12:42)
[2023-11-14] MEDS ORDERED: POLYETHYLENE GLYCOL (HEALTHYLAX) 3350 17 GM PACKET PO PRN (12:42)
[2023-11-14] MEDS ORDERED: BISMUTH SUBSALICYLATE 524 MG/30 ML PO PRN (12:42)
[2023-11-14] MEDS ORDERED: DICYCLOMINE HCL 10 MG CAPSULE PO PRN (12:42)
[2023-11-14] MEDS ORDERED: guaiFENesin 600 MG TABLET.ER (FP) PO PRN (12:42)
[2023-11-14] MEDS ORDERED: IBUPROFEN 600 MG TABLET (FP) PO PRN (12:42)
[2023-11-14] MEDS ORDERED: BENZOCAINE/MENTHOL (CHLORASEPTIC ) LOZENGE MM PRN (12:42)
[2023-11-14] MEDS ORDERED: LOPERAMIDE HCL 2 MG CAPSULE PO PRN (12:42)
[2023-11-14] MEDS ORDERED: ONDANSETRON *ODT* 4 MG TABLET SL PRN (12:42)
[2023-11-14] MEDS ORDERED: P-EPHED 60MG/TRIPROLIDI 2.5MG TABLET PO PRN (12:42)
[2023-11-14] MEDS ORDERED: MAG HYDROX/AL HYDROX/SIMETH 30 ML UNIT-DOSE CUP PO PRN (12:42)
[2023-11-14] MEDS ORDERED: IBUPROFEN 400 MG TABLET (FP) PO PRN (12:42)
[2023-11-14] MEDS ORDERED: BENZONATATE 200 MG CAPSULE PO PRN (12:42)
[2023-11-14] MEDS ORDERED: TRIMETHOBENZAMIDE HCL 200MG/2ML INJ IM ONE (15:28)
[2023-11-14] MEDS: TRIMETHOBENZAMIDE HCL 200MG/2ML INJ IM ONE (15:39)
[2023-11-14] MEDS: PANTOPRAZOLE 40 MG TABLET PO SCH (15:40)
[2023-11-14] MEDS: chlordiazePOXIDE HCL 25 MG CAPSULE PO ONE (15:40)
[2023-11-14] MEDS: levETIRAcetam 500 MG TABLET (FP) PO SCH (15:41)
[2023-11-14] MEDS: chlordiazePOXIDE HCL 25 MG CAPSULE PO PRN (18:17)
[2023-11-14] MEDS: ACETAMINOPHEN 325 MG TABLET (FP) PO PRN (18:19)
[2023-11-14] MEDS: chlordiazePOXIDE HCL 25 MG CAPSULE PO SCH (18:36)
[2023-11-14] MEDS: THIAMINE 100 MG TABLET PO SCH (22:22)
[2023-11-14] MEDS: MELATONIN 5 MG TABLETS PO SCH (22:22)
[2023-11-15] MEDS: TAMSULOSIN HCL 0.4 MG CAP PO SCH (07:40)
[2023-11-15] MEDS: FOLIC ACID 1 MG TABLET (FP) PO SCH (10:20)
[2023-11-15] MEDS: PRENATAL VITAMINS W/ FOLIC ACID TABLET (FP) PO SCH (10:20)
[2023-11-15] MEDS: LISINOPRIL 10 MG TABLET PO SCH (10:20)
[2023-11-15 12:50] LABS: HEMATOCRIT 34.3 % (35.4-49); HEMOGLOBIN 10.6 GM/dL (11.7-16.9); MCH 20.8 pg (25.7-33.7); MCHC 30.8 g/dl (32.0-35.9); MEAN CELL VOLUME 67.6 fl (80-96); MEAN PLT VOLUME 8.8 fl (7.5-11.1); PLATELET COUNT 82 10^3/uL (134-434); POTASSIUM 3.2 mmol/L (3.5-5.1); RBC 5.08 M/mm3 (4.00-5.60); RDW 26.9 % (11.9-15.9); WHITE BLOOD COUNT 6.5 K/mm3 (4.0-10.0)
[2023-11-15 12:53] LABS: ALBUMIN 3.6 g/dl (3.4-5.0); CALCIUM 8.6 mg/dL (8.5-10.1)
[2023-11-15 12:55] LABS: BLOOD UREA NITROGEN 24.3 mg/dL (7-18)
[2023-11-15 12:58] LABS: CREATININE 0.6 mg/dL (0.55-1.3)
[2023-11-15 12:59] LABS: BILIRUBIN,TOTAL 1.1 mg/dL (0.2-1); TOT PROT 7.9 g/dl (6.4-8.2)
[2023-11-15 14:16] LABS: HIV INTERPRETATION NEGATIVE (NEGATIVE)
[2023-11-15] MEDS: POTASSIUM CHLORIDE ORAL LIQUID 20 MEQ/15 ML PO ONE (14:36)
[2023-11-15] MEDS: POTASSIUM CHLORIDE ORAL LIQUID 20 MEQ/15 ML PO SCH (22:20)
[2023-11-16] MEDS: chlordiazePOXIDE HCL 25 MG CAPSULE PO SCH (05:27)
[2023-11-16 12:49] LABS: HEMATOCRIT 34.1 % (35.4-49); HEMOGLOBIN 10.4 GM/dL (11.7-16.9); MCH 20.9 pg (25.7-33.7); MCHC 30.6 g/dl (32.0-35.9); MEAN CELL VOLUME 68.2 fl (80-96); PLATELET COUNT 77 10^3/uL (134-434); RBC 4.99 M/mm3 (4.00-5.60); RDW 26.8 % (11.9-15.9); WHITE BLOOD COUNT 4.7 K/mm3 (4.0-10.0)
[2023-11-16 13:05] LABS: POTASSIUM 3.2 mmol/L (3.5-5.1)
[2023-11-16 13:07] LABS: ALBUMIN 3.3 g/dl (3.4-5.0); BLOOD UREA NITROGEN 24.8 mg/dL (7-18); CALCIUM 8.8 mg/dL (8.5-10.1)
[2023-11-16 13:11] LABS: CREATININE 0.6 mg/dL (0.55-1.3)
[2023-11-16 13:13] LABS: TOT PROT 7.3 g/dl (6.4-8.2)
[2023-11-16] MEDS: propRANOLol HCL 10 MG TABLET PO ONE (22:20)
[2023-11-17] MEDS ORDERED: chlordiazePOXIDE HCL 10 MG CAPSULE PO PRN
[2023-11-17] MEDS: chlordiazePOXIDE HCL 10 MG CAPSULE PO SCH (05:33)
[2023-11-17 12:12] LABS: HEMATOCRIT 32.2 % (35.4-49); HEMOGLOBIN 9.7 GM/dL (11.7-16.9); MCH 20.7 pg (25.7-33.7); MEAN CELL VOLUME 68.9 fl (80-96); PLATELET COUNT 68 10^3/uL (134-434); RBC 4.68 M/mm3 (4.00-5.60); RDW 27.3 % (11.9-15.9); WHITE BLOOD COUNT 4.2 K/mm3 (4.0-10.0)
[2023-11-18] MEDS: chlordiazePOXIDE HCL 10 MG CAPSULE PO SCH (05:29)
[2023-11-18] MEDS: FERROUS SO4 325 MG TABLET (FP) PO SCH (22:16)
[2023-11-19] MEDS: chlordiazePOXIDE HCL 10 MG CAPSULE PO ONE (05:26)
[2023-11-19 09:15] VITALS: BP 133/80; PULSE 98; RESP 18; TEMP 97.4
== END 2023-11-19 09:40 | disposition home or self-care (01) | DRG 775 ==
LOC: YASAS 11:32 → Y6N 13:34
PROVIDERS: ADMIT Allergy & Immunology; ATTEND Surgery
PROC: HZ2ZZZZ Detoxification Services for Substance Abuse Treatment (ICD-10-PCS; principal; 2023-11-14)
DX: F10.230 Alcohol dependence with withdrawal, uncomplicated (principal); D69.6 Thrombocytopenia, unspecified; G40.909 Epilepsy, unspecified, not intractable, without status epilepticus; I10 Essential (primary) hypertension; K21.9 Gastro-esophageal reflux disease without esophagitis; E87.6 Hypokalemia; N40.0 Benign prostatic hyperplasia without lower urinary tract symptoms; Z86.11 Personal history of tuberculosis
CPT/HCPCS: 36415; 80053; 80305; 80307; 82607; 82746; 83036; 83540; 83550; 84132; 85027; 85045; 86780; 86803; 87389

== ENCOUNTER 2023-12-06 16:51 | Inpatient (IN) | payer OTHER ==
[2023-12-06 18:45] VITALS: BMI 24.2
[2023-12-06] MEDS ORDERED: chlordiazePOXIDE HCL 25 MG CAPSULE PO PRN (18:54)
[2023-12-06] MEDS ORDERED: MAG HYDROX/AL HYDROX/SIMETH 30 ML UNIT-DOSE CUP PO PRN (18:57)
[2023-12-06] MEDS ORDERED: LOPERAMIDE HCL 2 MG CAPSULE PO PRN (18:57)
[2023-12-06] MEDS ORDERED: BENZOCAINE/MENTHOL (CHLORASEPTIC ) LOZENGE MM PRN (18:57)
[2023-12-06] MEDS ORDERED: BENZONATATE 200 MG CAPSULE PO PRN (18:57)
[2023-12-06] MEDS ORDERED: MAGNESIUM HYDROX 2400MG/30ML ORAL SUSPENSION 30 ML CUP PO PRN (18:57)
[2023-12-06] MEDS ORDERED: BISMUTH SUBSALICYLATE 524 MG/30 ML PO PRN (18:57)
[2023-12-06] MEDS ORDERED: POLYETHYLENE GLYCOL (HEALTHYLAX) 3350 17 GM PACKET PO PRN (18:57)
[2023-12-06] MEDS ORDERED: DICYCLOMINE HCL 10 MG CAPSULE PO PRN (18:57)
[2023-12-06] MEDS ORDERED: ACETAMINOPHEN 325 MG TABLET (FP) PO PRN (18:57)
[2023-12-06] MEDS ORDERED: IBUPROFEN 600 MG TABLET (FP) PO PRN (18:57)
[2023-12-06] MEDS ORDERED: IBUPROFEN 400 MG TABLET (FP) PO PRN (18:57)
[2023-12-06] MEDS ORDERED: guaiFENesin 600 MG TABLET.ER (FP) PO PRN (18:57)
[2023-12-06] MEDS ORDERED: ONDANSETRON *ODT* 4 MG TABLET ONE (19:08)
[2023-12-06] MEDS ORDERED: chlordiazePOXIDE HCL 25 MG CAPSULE ONE (19:08)
[2023-12-06] MEDS: ONDANSETRON *ODT* 4 MG TABLET SL PRN (19:15)
[2023-12-06] MEDS: chlordiazePOXIDE HCL 25 MG CAPSULE PO ONE (19:15)
[2023-12-06] MEDS: chlordiazePOXIDE HCL 25 MG CAPSULE PO SCH (22:39)
[2023-12-06] MEDS: THIAMINE 100 MG TABLET PO SCH (22:44)
[2023-12-06] MEDS: MELATONIN 5 MG TABLETS PO SCH (22:44)
[2023-12-07] MEDS: TAMSULOSIN HCL 0.4 MG CAP PO SCH (09:40)
[2023-12-07] MEDS: PANTOPRAZOLE 40 MG TABLET PO SCH (10:21)
[2023-12-07] MEDS: LISINOPRIL 5 MG TABLET PO SCH (10:21)
[2023-12-07] MEDS: PRENATAL VITAMINS W/ FOLIC ACID TABLET (FP) PO SCH (10:21)
[2023-12-07] MEDS: FOLIC ACID 1 MG TABLET (FP) PO SCH (10:23)
[2023-12-08] MEDS: chlordiazePOXIDE HCL 25 MG CAPSULE PO SCH (05:24)
[2023-12-08] MEDS: METHOCARBAMOL 500 MG TABLET PO PRN (22:29)
[2023-12-09] MEDS ORDERED: chlordiazePOXIDE HCL 10 MG CAPSULE PO PRN
[2023-12-09] MEDS: chlordiazePOXIDE HCL 10 MG CAPSULE PO SCH (05:26)
[2023-12-09 12:03] LABS: POTASSIUM 3.4 mmol/L (3.5-5.1)
[2023-12-09 12:08] LABS: CALCIUM 8.4 mg/dL (8.5-10.1)
[2023-12-09 12:09] LABS: ALBUMIN 3.3 g/dl (3.4-5.0); BLOOD UREA NITROGEN 12.7 mg/dL (7-18)
[2023-12-09 12:12] LABS: CREATININE 0.4 mg/dL (0.55-1.3)
[2023-12-09 12:13] LABS: BILIRUBIN,TOTAL 0.6 mg/dL (0.2-1); TOT PROT 6.8 g/dl (6.4-8.2)
[2023-12-09 12:26] LABS: HEMATOCRIT 31.8 % (35.4-49); HEMOGLOBIN 9.5 GM/dL (11.7-16.9); MCH 21.5 pg (25.7-33.7); MCHC 29.8 g/dl (32.0-35.9); MEAN CELL VOLUME 72.1 fl (80-96); MEAN PLT VOLUME 8.8 fl (7.5-11.1); PLATELET COUNT 75 10^3/uL (134-434); RBC 4.42 M/mm3 (4.00-5.60); RDW 25.9 % (11.9-15.9); WHITE BLOOD COUNT 2.6 K/mm3 (4.0-10.0)
[2023-12-09] MEDS: POTASSIUM CHLORIDE ORAL LIQUID 20 MEQ/15 ML PO SCH (22:29)
[2023-12-10] MEDS: chlordiazePOXIDE HCL 10 MG CAPSULE PO SCH (05:19)
[2023-12-10] MEDS ORDERED: POTASSIUM CHLORIDE ORAL LIQUID 20 MEQ/15 ML PO ONE (11:00)
[2023-12-10 11:37] LABS: HEMATOCRIT 32.9 % (35.4-49); HEMOGLOBIN 9.9 GM/dL (11.7-16.9); MCH 21.7 pg (25.7-33.7); MCHC 30.2 g/dl (32.0-35.9); MEAN CELL VOLUME 71.9 fl (80-96); MEAN PLT VOLUME 9.4 fl (7.5-11.1); PLATELET COUNT 91 10^3/uL (134-434); RBC 4.57 M/mm3 (4.00-5.60); RDW 25.6 % (11.9-15.9); WHITE BLOOD COUNT 2.7 K/mm3 (4.0-10.0)
[2023-12-11] MEDS: chlordiazePOXIDE HCL 10 MG CAPSULE PO ONE (05:18)
[2023-12-11 08:59] VITALS: BP 117/63; PULSE 74; RESP 18; TEMP 97.8
== END 2023-12-11 09:32 | disposition home or self-care (01) | DRG 775 ==
LOC: YASAS 16:51 → Y3N 19:39
PROVIDERS: ADMIT Allergy & Immunology; ATTEND Surgery
PROC: HZ2ZZZZ Detoxification Services for Substance Abuse Treatment (ICD-10-PCS; principal; 2023-12-06)
DX: F10.230 Alcohol dependence with withdrawal, uncomplicated (principal); D61.818 Other pancytopenia; E87.6 Hypokalemia; I10 Essential (primary) hypertension; K21.9 Gastro-esophageal reflux disease without esophagitis; N40.0 Benign prostatic hyperplasia without lower urinary tract symptoms; Z85.46 Personal history of malignant neoplasm of prostate; Z87.19 Personal history of other diseases of the digestive system; Z86.11 Personal history of tuberculosis
CPT/HCPCS: 36415; 80053; 80305; 84132; 85027; 86780; Q0162

== ENCOUNTER 2024-03-27 12:56 | Inpatient (IN) | payer SELFPAY ==
[2024-03-27] MEDS ORDERED: MAGNESIUM HYDROX 2400MG/30ML ORAL SUSPENSION 30 ML CUP PO PRN (14:50)
[2024-03-27] MEDS ORDERED: BENZOCAINE/MENTHOL (CHLORASEPTIC ) LOZENGE MM PRN (14:50)
[2024-03-27] MEDS ORDERED: IBUPROFEN 400 MG TABLET (FP) PO PRN (14:50)
[2024-03-27] MEDS ORDERED: DICYCLOMINE HCL 10 MG CAPSULE PO PRN (14:50)
[2024-03-27] MEDS ORDERED: POLYETHYLENE GLYCOL (HEALTHYLAX) 3350 17 GM PACKET PO PRN (14:50)
[2024-03-27] MEDS ORDERED: BENZONATATE 200 MG CAPSULE PO PRN (14:50)
[2024-03-27] MEDS ORDERED: IBUPROFEN 600 MG TABLET (FP) PO PRN (14:50)
[2024-03-27] MEDS ORDERED: BISMUTH SUBSALICYLATE 262 MG/15 ML BTL PO PRN (14:50)
[2024-03-27] MEDS ORDERED: P-EPHED 60MG/TRIPROLIDI 2.5MG TABLET PO PRN (14:50)
[2024-03-27] MEDS ORDERED: ACETAMINOPHEN 325 MG TABLET (FP) PO PRN (14:50)
[2024-03-27] MEDS ORDERED: guaiFENesin 600 MG TABLET.ER (FP) PO PRN (14:50)
[2024-03-27] MEDS ORDERED: LOPERAMIDE HCL 2 MG CAPSULE PO PRN (14:50)
[2024-03-27] MEDS ORDERED: chlordiazePOXIDE HCL 25 MG CAPSULE PO PRN (14:51)
[2024-03-27 15:04] VITALS: BMI 24.8
[2024-03-27] MEDS: MAG HYDROX/AL HYDROX/SIMETH 30 ML UNIT-DOSE CUP PO PRN (15:57)
[2024-03-27] MEDS: chlordiazePOXIDE HCL 25 MG CAPSULE PO SCH (17:12)
[2024-03-27] MEDS: THIAMINE 100 MG TABLET PO SCH (22:15)
[2024-03-27] MEDS: MELATONIN 5 MG TABLETS PO SCH (22:16)
[2024-03-28] MEDS: PRENATAL VITAMINS W/ FOLIC ACID TABLET (FP) PO SCH (10:19)
[2024-03-28 13:23] LABS: HEMATOCRIT 34.5 % (35.4-49); HEMOGLOBIN 10.8 GM/dL (11.7-16.9); MCH 22.7 pg (25.7-33.7); MCHC 31.3 g/dl (32.0-35.9); MEAN CELL VOLUME 72.6 fl (80-96); MEAN PLT VOLUME 8.7 fl (7.5-11.1); PLATELET COUNT 96 10^3/uL (134-434); RBC 4.75 M/mm3 (4.00-5.60); RDW 22.5 % (11.9-15.9); WHITE BLOOD COUNT 2.5 K/mm3 (4.0-10.0)
[2024-03-28 13:39] LABS: POTASSIUM 3.5 mmol/L (3.5-5.1)
[2024-03-28 13:44] LABS: ALBUMIN 3.9 g/dl (3.4-5.0)
[2024-03-28 13:45] LABS: BLOOD UREA NITROGEN 8.9 mg/dL (7-18)
[2024-03-28 13:48] LABS: CREATININE 0.5 mg/dL (0.55-1.3)
[2024-03-28 13:49] LABS: BILIRUBIN,TOTAL 1.1 mg/dL (0.2-1); TOT PROT 7.5 g/dl (6.4-8.2)
[2024-03-28] MEDS: ONDANSETRON *ODT* 4 MG TABLET SL PRN (21:00)
[2024-03-28] MEDS: METHOCARBAMOL 500 MG TABLET PO PRN (21:00)
[2024-03-29] MEDS: chlordiazePOXIDE HCL 25 MG CAPSULE PO SCH (05:52)
[2024-03-29] MEDS: ACAMPROSATE CALCIUM 333 MG TABLET.DR PO SCH (13:49)
[2024-03-30] MEDS ORDERED: chlordiazePOXIDE HCL 10 MG CAPSULE PO PRN
[2024-03-30] MEDS: chlordiazePOXIDE HCL 10 MG CAPSULE PO SCH (05:50)
[2024-03-31] MEDS: chlordiazePOXIDE HCL 10 MG CAPSULE PO SCH (05:48)
[2024-04-01] MEDS: chlordiazePOXIDE HCL 10 MG CAPSULE PO ONE (05:38)
[2024-04-01 08:53] VITALS: BP 120/70; PULSE 74; RESP 18; TEMP 97.6
[2024-04-01] MEDS: NALOXONE (NYS OPIOID OVERDOSE PROGRAM) 4 MG/0.1 ML SPRAY NS PRN (09:10)
== END 2024-04-01 09:38 | disposition home or self-care (01) | DRG 775 ==
LOC: YASAS 12:56 → Y6N 15:06
PROVIDERS: ADMIT Allergy & Immunology; ATTEND Surgery
PROC: HZ2ZZZZ Detoxification Services for Substance Abuse Treatment (ICD-10-PCS; principal; 2024-03-27)
DX: F10.230 Alcohol dependence with withdrawal, uncomplicated (principal); F10.280 Alcohol dependence with alcohol-induced anxiety disorder; F10.282 Alcohol dependence with alcohol-induced sleep disorder; F41.9 Anxiety disorder, unspecified; F32.A Depression, unspecified; D69.6 Thrombocytopenia, unspecified; D72.818 Other decreased white blood cell count; G40.909 Epilepsy, unspecified, not intractable, without status epilepticus; K70.30 Alcoholic cirrhosis of liver without ascites; I10 Essential (primary) hypertension; N40.0 Benign prostatic hyperplasia without lower urinary tract symptoms; Z85.46 Personal history of malignant neoplasm of prostate; R73.03 Prediabetes
CPT/HCPCS: 36415; 80053; 80305; 80307; 82962; 85027; 86780; Q0162

== ENCOUNTER 2024-04-15 19:50 | Inpatient (IN) | payer OTHER ==
[2024-04-15] MEDS ORDERED: ONDANSETRON 4 MG/2 ML VIAL ONE (20:16)
[2024-04-15] MEDS ORDERED: ACETAMINOPHEN INJECTION 100 ML ONE (20:16)
[2024-04-15] MEDS ORDERED: PANTOPRAZOLE SODIUM 40 MG VIAL ONE (20:16)
[2024-04-15] MEDS: PANTOPRAZOLE SODIUM 40 MG VIAL IVPUSH ONE (20:26)
[2024-04-15] MEDS: ONDANSETRON 4 MG/2 ML VIAL IVPUSH ONE (20:26)
[2024-04-15] MEDS: ACETAMINOPHEN 1000 MG/100 ML BAG IVPB ONE (20:26)
[2024-04-15 20:46] LABS: BASO % 1.3 % (0-2.0); EOS % 0.1 % (0-4.5); HEMATOCRIT 35.5 % (35.4-49); HEMOGLOBIN 11.2 GM/dL (11.7-16.9); LYMPH % 16.5 % (8-40); MCH 22.7 pg (25.7-33.7); MCHC 31.6 g/dl (32.0-35.9); MEAN PLT VOLUME 8.6 fl (7.5-11.1); NEUT % 75.1 % (42.8-82.8); PLATELET COUNT 168 10^3/uL (134-434); RBC 4.94 M/mm3 (4.00-5.60); RDW 21.8 % (11.9-15.9); WHITE BLOOD COUNT 7.9 K/mm3 (4.0-10.0)
[2024-04-15 20:47] LABS: INR 1.1 (0.83-1.09); PROTHROMBIN TIME (PATIENT) 12.4 SEC (9.7-13.0)
[2024-04-15] MEDS ORDERED: CEFTRIAXONE 1 GM/50 ML BAG ONE (20:47)
[2024-04-15] MEDS ORDERED: OCTREOTIDE ACETATE 100 MCG/1 ML ONE (20:48)
[2024-04-15] MEDS: CEFTRIAXONE 1,000 MG in DEXTROSE 5%-WATER - 50 ML IVPB ONE (20:55)
[2024-04-15] MEDS: OCTREOTIDE ACETATE 50 MCG/1 ML - 1 ML VIAL IVPUSH ONE (20:55)
[2024-04-15 21:53] LABS: ANISOCYTOSIS 2+; MACROCYTOSIS 1+; OVALOCYTE 1+; TARGET CELLS 1+
[2024-04-15 22:03] LABS: HIV INTERPRETATION NEGATIVE (NEGATIVE)
[2024-04-15 22:10] LABS: POTASSIUM 3.7 mmol/L (3.5-5.1)
[2024-04-15 22:12] LABS: BLOOD UREA NITROGEN 19.9 mg/dL (7-18); CALCIUM 8.8 mg/dL (8.5-10.1)
[2024-04-15 22:13] LABS: ALBUMIN 4.3 g/dl (3.4-5.0)
[2024-04-15 22:16] LABS: CREATININE 0.9 mg/dL (0.55-1.3)
[2024-04-15 22:18] LABS: BILIRUBIN,TOTAL 0.8 mg/dL (0.2-1); TOT PROT 8.6 g/dl (6.4-8.2)
[2024-04-15 22:35] LABS: EPI CELLS 1 /uL (0-25.1); HYALINE CASTS 0 /uL (0-3.1); URINE APPEARANCE CLOUDY; URINE BACTERIA 1849 /uL (0-1359); URINE BILIRUBIN NEGATIVE (NEGATIVE); URINE COLOR YELLOW; URINE GLUCOSE (UA) NEGATIVE (NEGATIVE); URINE KETONE 2+ (NEGATIVE); URINE LEUK ESTERASE 2+ (NEGATIVE); URINE NITRITE NEGATIVE (NEGATIVE); URINE PROTEIN 3+ (NEGATIVE); URINE RBC 124 /uL (0-23.9); URINE WBC 3223 /uL (0-25.8)
[2024-04-16] MEDS: LACTATED RINGERS SOLUTION 1,000 ML IV SCH (00:01)
[2024-04-16] MEDS ORDERED: DOXYCYCLINE HYCLATE 100 MG VIAL ONE ×2 (01:32→10:46)
[2024-04-16] MEDS: DOXYCYCLINE INJECTION 100 MG in DEXTROSE 5%-WATER 100 ML IVPB SCH (01:33)
[2024-04-16] MEDS: FOLIC ACID INJECTION - 1 MG, THIAMINE HCL 100 MG, MULTIVIT INJECTION ADULT 10 ML in SOD... IVPB ONE (05:16)
[2024-04-16] MEDS ORDERED: TRIMETHOBENZAMIDE HCL 200MG/2ML INJ IM ONE (06:03)
[2024-04-16] MEDS: TRIMETHOBENZAMIDE HCL 200MG/2ML INJ IM PRN (06:08)
[2024-04-16 08:29] LABS: HEMATOCRIT 32.4 % (35.4-49); HEMOGLOBIN 10.5 GM/dL (11.7-16.9); MCH 23.2 pg (25.7-33.7); MCHC 32.3 g/dl (32.0-35.9); MEAN PLT VOLUME 8.7 fl (7.5-11.1); PLATELET COUNT 129 10^3/uL (134-434); RBC 4.51 M/mm3 (4.00-5.60); RDW 22.4 % (11.9-15.9)
[2024-04-16 09:52] LABS: POTASSIUM 3.5 mmol/L (3.5-5.1)
[2024-04-16 09:56] LABS: ALBUMIN 3.9 g/dl (3.4-5.0); BLOOD UREA NITROGEN 21.8 mg/dL (7-18); CALCIUM 8.4 mg/dL (8.5-10.1); MAGNESIUM 1.4 mg/dL (1.8-2.4)
[2024-04-16 09:59] LABS: CREATININE 0.8 mg/dL (0.55-1.3); PHOSPHOROUS 3.1 mg/dL (2.5-4.9)
[2024-04-16 10:00] LABS: TOT PROT 7.6 g/dl (6.4-8.2)
[2024-04-16] MEDS ORDERED: PANTOPRAZOLE SODIUM 40 MG VIAL IVPUSH SCH (10:00)
[2024-04-16] MEDS ORDERED: CEFTRIAXONE 1 GM/50 ML BAG ONE (10:36)
[2024-04-16] MEDS: CEFTRIAXONE 1 GM in DEXTROSE 5%-WATER - 50 ML IVPB SCH (10:44)
[2024-04-16] MEDS: PANTOPRAZOLE SODIUM 80 MG in SODIUM CHLORIDE 100 ML IVPB SCH (11:14)
[2024-04-16] MEDS: OCTREOTIDE ACETATE 200 MCG, OCTREOTIDE ACETATE 1,000 MCG in DEXTROSE 5%-WATER - 496 ML IVPB SCH (11:14)
[2024-04-16] MEDS ORDERED: morphine SULFATE 4 MG/ML VIAL IVPUSH PRN (11:41)
[2024-04-16] MEDS ORDERED: THIAMINE HCL 200 MG/2 ML VIAL ONE (12:06)
[2024-04-16] MEDS: THIAMINE HCL 200 MG/2 ML VIAL IVPB SCH (12:08)
[2024-04-16] MEDS ORDERED: MIDAZOLAM HCL 2 MG/2 ML SINGLE DOSE VIAL ONE ×2 (14:54→15:24)
[2024-04-16] MEDS: MAGNESIUM SULFATE IN WATER 2 GM/50 ML IVPB IVPB ONE (14:55)
[2024-04-16 17:56] VITALS: BMI 28.8
[2024-04-16] MEDS: PANTOPRAZOLE 40 MG TABLET PO SCH (22:06)
[2024-04-17 07:13] LABS: BASO % 1.1 % (0-2.0); EOS % 1.6 % (0-4.5); HEMATOCRIT 32.4 % (35.4-49); HEMOGLOBIN 10.5 GM/dL (11.7-16.9); LYMPH % 23.4 % (8-40); MCH 23.5 pg (25.7-33.7); MCHC 32.4 g/dl (32.0-35.9); MEAN CELL VOLUME 72.4 fl (80-96); MEAN PLT VOLUME 9.7 fl (7.5-11.1); MONO % 9.5 % (3.8-10.2); NEUT % 64.4 % (42.8-82.8); PLATELET COUNT 103 10^3/uL (134-434); RBC 4.48 M/mm3 (4.00-5.60); RDW 22.4 % (11.9-15.9); WHITE BLOOD COUNT 3.9 K/mm3 (4.0-10.0)
[2024-04-17 07:27] LABS: POTASSIUM 3.7 mmol/L (3.5-5.1)
[2024-04-17 07:31] LABS: ALBUMIN 3.4 g/dl (3.4-5.0); BLOOD UREA NITROGEN 14.8 mg/dL (7-18); CALCIUM 7.8 mg/dL (8.5-10.1); MAGNESIUM 1.5 mg/dL (1.8-2.4)
[2024-04-17 07:34] LABS: CREATININE 0.6 mg/dL (0.55-1.3)
[2024-04-17 07:36] LABS: BILIRUBIN,TOTAL 1.2 mg/dL (0.2-1); TOT PROT 6.8 g/dl (6.4-8.2)
[2024-04-17 08:59] VITALS: RESP 18
[2024-04-17] MEDS: CEFTRIAXONE 1 G/50 ML PREMIX 50 ML IVPB SCH (09:19)
[2024-04-17] MEDS: MAGNESIUM SULF 50% (8.12 MEQ/2 ML-1 GM VIAL) IVPB ONE (13:03)
[2024-04-17] MEDS: MAGNESIUM 2GM/50ML STERILE WATER IVPB IVPB ONE (13:04)
[2024-04-17] MEDS: THIAMINE 100 MG TABLET PO SCH (13:05)
[2024-04-17] MEDS: CEPHALEXIN MONOHYDRATE 500 MG CAPSULE (UD) PO SCH ×2 (14:02→20:30)
[2024-04-17] MEDS: morphine SULFATE 4 MG/ML VIAL IVPUSH PRN (15:53)
[2024-04-17] MEDS: TRIMETHOBENZAMIDE HCL 200MG/2ML INJ IM PRN (15:53)
[2024-04-17] MEDS: PANTOPRAZOLE 40 MG TABLET PO SCH (21:07)
[2024-04-18] MEDS: THIAMINE 100 MG TABLET PO SCH (09:27)
[2024-04-18 10:20] LABS: BASO % 0.4 % (0-2.0); EOS % 2.5 % (0-4.5); HEMATOCRIT 36.8 % (35.4-49); HEMOGLOBIN 11.3 GM/dL (11.7-16.9); LYMPH % 26.1 % (8-40); MCH 22.7 pg (25.7-33.7); MCHC 30.7 g/dl (32.0-35.9); MEAN CELL VOLUME 73.8 fl (80-96); PLATELET COUNT 101 10^3/uL (134-434); RBC 4.99 M/mm3 (4.00-5.60); RDW 22.6 % (11.9-15.9); WHITE BLOOD COUNT 4.3 K/mm3 (4.0-10.0)
[2024-04-18 10:47] LABS: POTASSIUM 3.1 mmol/L (3.5-5.1)
[2024-04-18 10:56] LABS: ALBUMIN 3.5 g/dl (3.4-5.0); BLOOD UREA NITROGEN 15.7 mg/dL (7-18); CALCIUM 8.4 mg/dL (8.5-10.1); MAGNESIUM 1.6 mg/dL (1.8-2.4)
[2024-04-18 10:59] LABS: CREATININE 0.7 mg/dL (0.55-1.3)
[2024-04-18 11:00] LABS: BILIRUBIN,TOTAL 0.9 mg/dL (0.2-1); TOT PROT 7.2 g/dl (6.4-8.2)
[2024-04-18] MEDS: POTASSIUM CHLORIDE ORAL LIQUID 20 MEQ/15 ML PO ONE (11:02)
[2024-04-18] MEDS: KCL 10 MEQ IVPB 10 MEQ/100 ML INFUS.BAG IVPB SCH (11:03)
[2024-04-18] MEDS: MAGNESIUM 1GM/D5W 100ML - 100 ML IVPB IVPB ONE (15:00)
[2024-04-18 16:34] VITALS: BP 142/82; PULSE 87; TEMP 98.7
== END 2024-04-18 16:40 | disposition home or self-care (01) | DRG 243 ==
LOC: JER 19:50 → JERBED 04-16 02:17 → J4W 04-16 16:41 → J6S 04-17 14:37
PROVIDERS: ADMIT Internal Medicine; ATTEND Internal Medicine
PROC: 0DJ08ZZ Inspection of Upper Intestinal Tract, Via Natural or Artificial Opening Endoscopic (ICD-10-PCS; principal; 2024-04-16 15:00)
DX: K21.01 Gastro-esophageal reflux disease with esophagitis, with bleeding (principal); E83.42 Hypomagnesemia; K70.30 Alcoholic cirrhosis of liver without ascites; K92.0 Hematemesis; F10.230 Alcohol dependence with withdrawal, uncomplicated; I10 Essential (primary) hypertension; J98.11 Atelectasis; K44.9 Diaphragmatic hernia without obstruction or gangrene; N39.0 Urinary tract infection, site not specified; R00.0 Tachycardia, unspecified; R10.13 Epigastric pain
CPT/HCPCS: 36415; 71045-TC-FY; 76705-TC; 80053; 81003; 82272; 82962; 83735; 84100; 85025; 85027; 85610; 85730; 86803; 86850; 86900; 86901; 87086; 87186; 87389; 87491; 87591; 93005; 93010; 97116-GP; 97161-GP; 99285-25; J0131

== ENCOUNTER 2024-05-22 09:15 | Inpatient (IN) | payer OTHER ==
[2024-05-22 09:35] VITALS: BMI 25.4
[2024-05-22] MEDS ORDERED: chlordiazePOXIDE HCL 25 MG CAPSULE PO PRN (09:54)
[2024-05-22] MEDS ORDERED: MAGNESIUM HYDROX 2400MG/30ML ORAL SUSPENSION 30 ML CUP PO PRN (09:57)
[2024-05-22] MEDS ORDERED: BISMUTH SUBSALICYLATE 262 MG/15 ML BTL PO PRN (09:57)
[2024-05-22] MEDS ORDERED: guaiFENesin 600 MG TABLET.ER (FP) PO PRN (09:57)
[2024-05-22] MEDS ORDERED: DICYCLOMINE HCL 10 MG CAPSULE PO PRN (09:57)
[2024-05-22] MEDS ORDERED: BENZOCAINE/MENTHOL (CHLORASEPTIC ) LOZENGE MM PRN (09:57)
[2024-05-22] MEDS ORDERED: POLYETHYLENE GLYCOL (HEALTHYLAX) 3350 17 GM PACKET PO PRN (09:57)
[2024-05-22] MEDS ORDERED: BENZONATATE 200 MG CAPSULE PO PRN (09:57)
[2024-05-22] MEDS ORDERED: ONDANSETRON *ODT* 4 MG TABLET SL PRN (09:57)
[2024-05-22] MEDS ORDERED: MAG HYDROX/AL HYDROX/SIMETH 30 ML UNIT-DOSE CUP PO PRN (09:57)
[2024-05-22] MEDS ORDERED: LOPERAMIDE HCL 2 MG CAPSULE PO PRN (09:57)
[2024-05-22] MEDS ORDERED: levETIRAcetam 500 MG TABLET (FP) PO ONE (10:44)
[2024-05-22] MEDS ORDERED: chlordiazePOXIDE HCL 25 MG CAPSULE ONE (10:44)
[2024-05-22] MEDS ORDERED: PRENATAL VITAMINS W/ FOLIC ACID TABLET (FP) PO ONE (10:45)
[2024-05-22] MEDS ORDERED: METOPROLOL TARTRATE 25 MG TABLET (FP) ONE (10:45)
[2024-05-22] MEDS: levETIRAcetam 500 MG TABLET (FP) PO SCH (10:47)
[2024-05-22] MEDS: METOPROLOL TARTRATE 25 MG TABLET (FP) PO ONE (10:47)
[2024-05-22] MEDS: PRENATAL VITAMINS W/ FOLIC ACID TABLET (FP) PO SCH (10:47)
[2024-05-22] MEDS: chlordiazePOXIDE HCL 25 MG CAPSULE PO SCH (10:47)
[2024-05-22] MEDS: PANTOPRAZOLE 40 MG TABLET PO SCH (11:22)
[2024-05-22] MEDS: ACETAMINOPHEN 325 MG TABLET (FP) PO ONE (12:00)
[2024-05-22] MEDS: METHOCARBAMOL 500 MG TABLET PO PRN (12:01)
[2024-05-22] MEDS: THIAMINE 100 MG TABLET PO SCH (22:02)
[2024-05-22] MEDS: MELATONIN 5 MG TABLETS PO SCH (22:02)
[2024-05-23 10:47] LABS: POTASSIUM 3.1 mmol/L (3.5-5.1)
[2024-05-23 10:54] LABS: HEMOGLOBIN 10.2 GM/dL (11.7-16.9); MCH 21.7 pg (25.7-33.7); MCHC 29.9 g/dl (32.0-35.9); MEAN CELL VOLUME 72.5 fl (80-96); MEAN PLT VOLUME 10.2 fl (7.5-11.1); WHITE BLOOD COUNT 2.8 K/mm3 (4.0-10.0)
[2024-05-23 11:00] LABS: CALCIUM 9.5 mg/dL (8.5-10.1)
[2024-05-23 11:01] LABS: ALBUMIN 3.9 g/dl (3.4-5.0); BLOOD UREA NITROGEN 12.5 mg/dL (7-18)
[2024-05-23 11:04] LABS: CREATININE 0.5 mg/dL (0.55-1.3)
[2024-05-23 11:06] LABS: TOT PROT 7.4 g/dl (6.4-8.2)
[2024-05-23] MEDS: FLU VACCINE (FLULAVAL) PF 45 MCG/0.5 ML SYRINGE 2024-2025 IM ONE (11:26)
[2024-05-23 12:03] LABS: PLATELET COUNT 35 10^3/uL (134-434)
[2024-05-24] MEDS: chlordiazePOXIDE HCL 25 MG CAPSULE PO SCH (05:34)
[2024-05-25] MEDS: chlordiazePOXIDE HCL 10 MG CAPSULE PO PRN (03:06)
[2024-05-25] MEDS: chlordiazePOXIDE HCL 10 MG CAPSULE PO SCH (05:31)
[2024-05-26] MEDS: chlordiazePOXIDE HCL 10 MG CAPSULE PO SCH (05:44)
[2024-05-26 20:47] VITALS: RESP 16
[2024-05-27] MEDS: chlordiazePOXIDE HCL 10 MG CAPSULE PO ONE (05:35)
[2024-05-27] MEDS ORDERED: NALOXONE (NYS OPIOID OVERDOSE PROGRAM) 4 MG/0.1 ML SPRAY NS PRN (08:00)
[2024-05-27 08:59] VITALS: BP 136/78; PULSE 90; TEMP 97.6
== END 2024-05-27 09:45 | disposition home or self-care (01) | DRG 756 ==
LOC: YASAS 09:15 → Y3N 10:35
PROVIDERS: ADMIT Allergy & Immunology; ATTEND Surgery
PROC: HZ2ZZZZ Detoxification Services for Substance Abuse Treatment (ICD-10-PCS; principal; 2024-05-22)
DX: F41.9 Anxiety disorder, unspecified (principal); F32.A Depression, unspecified; D61.818 Other pancytopenia; I10 Essential (primary) hypertension; G40.509 Epileptic seizures related to external causes, not intractable, without status epilepticus; K21.9 Gastro-esophageal reflux disease without esophagitis; E87.6 Hypokalemia; R74.01 Elevation of levels of liver transaminase levels; N40.0 Benign prostatic hyperplasia without lower urinary tract symptoms; Z85.46 Personal history of malignant neoplasm of prostate; Z87.19 Personal history of other diseases of the digestive system; Z86.11 Personal history of tuberculosis
CPT/HCPCS: 36415; 80053; 85027

== ENCOUNTER 2024-06-09 19:02 | Inpatient (IN) | payer OTHER ==
[2024-06-09 19:11] VITALS: BMI 24.2
[2024-06-09] MEDS ORDERED: chlordiazePOXIDE HCL 25 MG CAPSULE PO PRN (19:12)
[2024-06-09] MEDS ORDERED: guaiFENesin 600 MG TABLET.ER (FP) PO PRN (19:16)
[2024-06-09] MEDS ORDERED: BENZONATATE 200 MG CAPSULE PO PRN (19:16)
[2024-06-09] MEDS ORDERED: DICYCLOMINE HCL 10 MG CAPSULE PO PRN (19:16)
[2024-06-09] MEDS ORDERED: MAGNESIUM HYDROX 2400MG/30ML ORAL SUSPENSION 30 ML CUP PO PRN (19:16)
[2024-06-09] MEDS ORDERED: BISMUTH SUBSALICYLATE 524 MG/30 ML PO PRN (19:16)
[2024-06-09] MEDS ORDERED: ACETAMINOPHEN 325 MG TABLET (FP) PO PRN (19:16)
[2024-06-09] MEDS ORDERED: POLYETHYLENE GLYCOL (HEALTHYLAX) 3350 17 GM PACKET PO PRN (19:16)
[2024-06-09] MEDS ORDERED: LOPERAMIDE HCL 2 MG CAPSULE PO PRN (19:16)
[2024-06-09] MEDS ORDERED: BENZOCAINE/MENTHOL (CHLORASEPTIC ) LOZENGE MM PRN (19:16)
[2024-06-09] MEDS ORDERED: MAG HYDROX/AL HYDROX/SIMETH 30 ML UNIT-DOSE CUP PO PRN (19:16)
[2024-06-09] MEDS ORDERED: TRIMETHOBENZAMIDE HCL 200MG/2ML INJ IM PRN (19:31)
[2024-06-09] MEDS ORDERED: chlordiazePOXIDE HCL 25 MG CAPSULE ONE (20:11)
[2024-06-09] MEDS ORDERED: ACETAMINOPHEN 325 MG TABLET (FP) ONE (20:11)
[2024-06-09] MEDS: chlordiazePOXIDE HCL 25 MG CAPSULE PO ONE (20:20)
[2024-06-09] MEDS: ACETAMINOPHEN 325 MG TABLET (FP) PO ONE (20:21)
[2024-06-09] MEDS: THIAMINE 100 MG TABLET PO SCH (22:30)
[2024-06-09] MEDS: PANTOPRAZOLE 40 MG TABLET PO SCH (22:30)
[2024-06-09] MEDS: chlordiazePOXIDE HCL 25 MG CAPSULE PO SCH (22:30)
[2024-06-09] MEDS: levETIRAcetam 500 MG TABLET (FP) PO SCH (22:30)
[2024-06-09] MEDS: MELATONIN 5 MG TABLETS PO SCH (22:31)
[2024-06-10 08:33] LABS: POTASSIUM 3.4 mmol/L (3.5-5.1)
[2024-06-10 08:35] LABS: HEMATOCRIT 31.5 % (35.4-49); HEMOGLOBIN 9.9 GM/dL (11.7-16.9); MCH 22.7 pg (25.7-33.7); MCHC 31.3 g/dl (32.0-35.9); MEAN CELL VOLUME 72.4 fl (80-96); MEAN PLT VOLUME 8.4 fl (7.5-11.1); PLATELET COUNT 172 10^3/uL (134-434); RBC 4.35 M/mm3 (4.00-5.60); RDW 24.7 % (11.9-15.9)
[2024-06-10 08:41] LABS: ALBUMIN 3.9 g/dl (3.4-5.0); BLOOD UREA NITROGEN 15.7 mg/dL (7-18)
[2024-06-10 08:42] LABS: BILIRUBIN,TOTAL 0.5 mg/dL (0.2-1)
[2024-06-10 08:43] LABS: CALCIUM 8.7 mg/dL (8.5-10.1); TOT PROT 7.7 g/dl (6.4-8.2)
[2024-06-10 08:44] LABS: CREATININE 0.5 mg/dL (0.55-1.3)
[2024-06-10] MEDS: PRENATAL VITAMINS W/ FOLIC ACID TABLET (FP) PO SCH (10:14)
[2024-06-10 12:17] LABS: HIV INTERPRETATION NEGATIVE (NEGATIVE)
[2024-06-10] MEDS: amLODIPine BESYLATE 5 MG TABLET (FP) PO SCH (13:25)
[2024-06-11] MEDS: chlordiazePOXIDE HCL 25 MG CAPSULE PO SCH (05:37)
[2024-06-11] MEDS: POTASSIUM CHLORIDE ORAL LIQUID 20 MEQ/15 ML PO ONE (09:46)
[2024-06-11] MEDS: ONDANSETRON *ODT* 4 MG TABLET SL PRN (23:28)
[2024-06-12] MEDS ORDERED: chlordiazePOXIDE HCL 10 MG CAPSULE PO PRN
[2024-06-12] MEDS: chlordiazePOXIDE HCL 10 MG CAPSULE PO SCH (05:37)
[2024-06-12 08:41] VITALS: RESP 18
[2024-06-12 12:25] LABS: POTASSIUM 3.8 mmol/L (3.5-5.1)
[2024-06-12 12:26] LABS: BLOOD UREA NITROGEN 14.2 mg/dL (7-18)
[2024-06-12 12:29] LABS: CALCIUM 9.1 mg/dL (8.5-10.1)
[2024-06-12 12:30] LABS: CREATININE 0.5 mg/dL (0.55-1.3)
[2024-06-12 12:50] VITALS: BP 121/76; PULSE 66; TEMP 98.7
[2024-06-12] MEDS: ACAMPROSATE CALCIUM 333 MG TABLET.DR PO SCH (13:11)
[2024-06-12] MEDS: NALOXONE (NYS OPIOID OVERDOSE PROGRAM) 4 MG/0.1 ML SPRAY NS SCH (13:39)
[2024-06-13] MEDS ORDERED: chlordiazePOXIDE HCL 10 MG CAPSULE PO SCH (05:00)
[2024-06-14] MEDS ORDERED: chlordiazePOXIDE HCL 10 MG CAPSULE PO ONE (05:00)
== END 2024-06-12 13:25 | disposition home or self-care (01) | DRG 775 ==
LOC: YASAS 19:02 → Y6N 19:55
PROVIDERS: ADMIT Allergy & Immunology; ATTEND Allergy & Immunology
PROC: HZ2ZZZZ Detoxification Services for Substance Abuse Treatment (ICD-10-PCS; principal; 2024-06-09)
DX: F10.230 Alcohol dependence with withdrawal, uncomplicated (principal); F41.9 Anxiety disorder, unspecified; F32.A Depression, unspecified; E87.6 Hypokalemia; G40.909 Epilepsy, unspecified, not intractable, without status epilepticus; K21.9 Gastro-esophageal reflux disease without esophagitis; Z85.46 Personal history of malignant neoplasm of prostate; Z86.11 Personal history of tuberculosis; Z87.19 Personal history of other diseases of the digestive system; Z86.69 Personal history of other diseases of the nervous system and sense organs
CPT/HCPCS: 36415; 80048; 80053; 85027; 87389; 93005; 93010; Q0162

== ENCOUNTER 2024-07-17 13:40 | Inpatient (IN) | payer OTHER ==
[2024-07-17 14:24] VITALS: BMI 27.4
[2024-07-17] MEDS ORDERED: chlordiazePOXIDE HCL 25 MG CAPSULE PO PRN (14:31)
[2024-07-17] MEDS ORDERED: POLYETHYLENE GLYCOL (HEALTHYLAX) 3350 17 GM PACKET PO PRN (14:37)
[2024-07-17] MEDS ORDERED: BENZONATATE 200 MG CAPSULE PO PRN (14:37)
[2024-07-17] MEDS ORDERED: NALOXONE (NARCAN) HCL 4 MG/0.1 ML SPRAY NS PRN (14:37)
[2024-07-17] MEDS ORDERED: DICYCLOMINE HCL 10 MG CAPSULE PO PRN (14:37)
[2024-07-17] MEDS ORDERED: MAGNESIUM HYDROX 2400MG/30ML ORAL SUSPENSION 30 ML CUP PO PRN (14:37)
[2024-07-17] MEDS ORDERED: LOPERAMIDE HCL 2 MG CAPSULE PO PRN (14:37)
[2024-07-17] MEDS ORDERED: ONDANSETRON *ODT* 4 MG TABLET SL PRN (14:37)
[2024-07-17] MEDS ORDERED: BENZOCAINE/MENTHOL (CHLORASEPTIC ) LOZENGE MM PRN (14:37)
[2024-07-17] MEDS ORDERED: guaiFENesin 600 MG TABLET.ER (FP) PO PRN (14:37)
[2024-07-17] MEDS ORDERED: levETIRAcetam 500 MG TABLET (FP) PO ONE (15:01)
[2024-07-17] MEDS: levETIRAcetam 500 MG TABLET (FP) PO SCH (15:02)
[2024-07-17] MEDS: chlordiazePOXIDE HCL 25 MG CAPSULE PO SCH (17:16)
[2024-07-17] MEDS: PANTOPRAZOLE 40 MG TABLET PO SCH (22:10)
[2024-07-17] MEDS: MELATONIN 5 MG TABLETS PO SCH (22:10)
[2024-07-17] MEDS: THIAMINE 100 MG TABLET PO SCH (22:10)
[2024-07-18] MEDS: ACETAMINOPHEN 325 MG TABLET (FP) PO PRN (04:11)
[2024-07-18] MEDS: PRENATAL VITAMINS W/ FOLIC ACID TABLET (FP) PO SCH (10:46)
[2024-07-18 11:14] LABS: HEMATOCRIT 34.7 % (35.4-49); HEMOGLOBIN 10.6 GM/dL (11.7-16.9); MCH 22.2 pg (25.7-33.7); MCHC 30.4 g/dl (32.0-35.9); MEAN CELL VOLUME 72.8 fl (80-96); MEAN PLT VOLUME 9.1 fl (7.5-11.1); PLATELET COUNT 114 10^3/uL (134-434); RBC 4.77 M/mm3 (4.00-5.60); RDW 22.6 % (11.9-15.9); WHITE BLOOD COUNT 3.5 K/mm3 (4.0-10.0)
[2024-07-18 11:15] LABS: POTASSIUM 4.2 mmol/L (3.5-5.1)
[2024-07-18 11:18] LABS: CALCIUM 8.2 mg/dL (8.5-10.1)
[2024-07-18 11:19] LABS: ALBUMIN 3.7 g/dl (3.4-5.0); BLOOD UREA NITROGEN 19.6 mg/dL (7-18)
[2024-07-18 11:21] LABS: CREATININE 1.7 mg/dL (0.55-1.3)
[2024-07-18 11:23] LABS: BILIRUBIN,TOTAL 0.9 mg/dL (0.2-1); TOT PROT 7.2 g/dl (6.4-8.2)
[2024-07-18] MEDS: BISMUTH SUBSALICYLATE 262 MG/15 ML BTL PO PRN (17:13)
[2024-07-18] MEDS: METHOCARBAMOL 500 MG TABLET PO PRN (22:23)
[2024-07-19] MEDS: chlordiazePOXIDE HCL 25 MG CAPSULE PO SCH (05:32)
[2024-07-19] MEDS: LOSARTAN POTASSIUM 25 MG TABLET PO SCH (11:37)
[2024-07-19] MEDS: MAG HYDROX/AL HYDROX/SIMETH 30 ML UNIT-DOSE CUP PO PRN (11:47)
[2024-07-20] MEDS ORDERED: chlordiazePOXIDE HCL 10 MG CAPSULE PO PRN
[2024-07-20] MEDS: chlordiazePOXIDE HCL 10 MG CAPSULE PO SCH (05:59)
[2024-07-20] MEDS: FERROUS SO4 325 MG TABLET (FP) PO SCH (11:32)
[2024-07-20] MEDS: LISINOPRIL 5 MG TABLET PO SCH (11:32)
[2024-07-21] MEDS: chlordiazePOXIDE HCL 10 MG CAPSULE PO SCH (05:48)
[2024-07-21 11:09] LABS: POTASSIUM 4.2 mmol/L (3.5-5.1)
[2024-07-21 11:10] LABS: CALCIUM 8.7 mg/dL (8.5-10.1)
[2024-07-21 11:11] LABS: ALBUMIN 3.8 g/dl (3.4-5.0); BLOOD UREA NITROGEN 25.2 mg/dL (7-18)
[2024-07-21 11:14] LABS: PHOSPHOROUS 3.6 mg/dL (2.5-4.9)
[2024-07-22] MEDS: chlordiazePOXIDE HCL 10 MG CAPSULE PO ONE (05:25)
[2024-07-22 09:08] VITALS: BP 125/76; PULSE 76; RESP 18; TEMP 97.9
== END 2024-07-22 11:45 | disposition home or self-care (01) | DRG 775 ==
LOC: YASAS 13:40 → Y6N 14:40
PROVIDERS: ADMIT Allergy & Immunology; ATTEND Allergy & Immunology
PROC: HZ2ZZZZ Detoxification Services for Substance Abuse Treatment (ICD-10-PCS; principal; 2024-07-17)
DX: F10.230 Alcohol dependence with withdrawal, uncomplicated (principal); F10.282 Alcohol dependence with alcohol-induced sleep disorder; F10.280 Alcohol dependence with alcohol-induced anxiety disorder; D50.9 Iron deficiency anemia, unspecified; K70.30 Alcoholic cirrhosis of liver without ascites; K21.9 Gastro-esophageal reflux disease without esophagitis; I10 Essential (primary) hypertension; Z86.69 Personal history of other diseases of the nervous system and sense organs; Z99.89 Dependence on other enabling machines and devices
CPT/HCPCS: 36415; 80053; 80069; 85027

== ENCOUNTER 2025-03-05 21:48 | Inpatient (IN) | payer OTHER ==
[2025-03-05 22:25] VITALS: BMI 25.8
[2025-03-05] MEDS ORDERED: MAGNESIUM HYDROX 2400MG/30ML ORAL SUSPENSION 30 ML CUP PO PRN (22:43)
[2025-03-05] MEDS ORDERED: POLYETHYLENE GLYCOL (HEALTHYLAX) 3350 17 GM PACKET PO PRN (22:43)
[2025-03-05] MEDS ORDERED: BENZOCAINE/MENTHOL (CHLORASEPTIC ) LOZENGE MM PRN (22:43)
[2025-03-05] MEDS ORDERED: guaiFENesin 600 MG TABLET.ER (FP) PO PRN (22:43)
[2025-03-05] MEDS ORDERED: NALOXONE (NARCAN) HCL 4 MG/0.1 ML SPRAY NS PRN (22:43)
[2025-03-05] MEDS ORDERED: hydrOXYzine PAMOATE 25 MG CAPSULE (FP) PO PRN (22:43)
[2025-03-05] MEDS ORDERED: DICYCLOMINE HCL 10 MG CAPSULE PO PRN (22:43)
[2025-03-05] MEDS ORDERED: BENZONATATE 200 MG CAPSULE PO PRN (22:43)
[2025-03-05] MEDS ORDERED: LOPERAMIDE HCL 2 MG CAPSULE PO PRN (22:43)
[2025-03-05] MEDS ORDERED: ONDANSETRON *ODT* 4 MG TABLET SL PRN (22:43)
[2025-03-05] MEDS ORDERED: METHOCARBAMOL 500 MG TABLET ONE (23:21)
[2025-03-05] MEDS ORDERED: ACETAMINOPHEN 325 MG TABLET (FP) ONE (23:21)
[2025-03-05] MEDS ORDERED: levETIRAcetam 500 MG TABLET (FP) PO ONE (23:21)
[2025-03-05] MEDS: ACETAMINOPHEN 325 MG TABLET (FP) PO PRN (23:25)
[2025-03-05] MEDS: METHOCARBAMOL 500 MG TABLET PO PRN (23:25)
[2025-03-05] MEDS: levETIRAcetam 500 MG TABLET (FP) PO SCH (23:25)
[2025-03-06] MEDS: PANTOPRAZOLE 40 MG TABLET PO SCH (10:03)
[2025-03-06] MEDS: PRENATAL VITAMINS W/ FOLIC ACID TABLET (FP) PO SCH (10:03)
[2025-03-06] MEDS: LISINOPRIL 5 MG TABLET PO SCH (10:03)
[2025-03-06 13:41] LABS: MCHC 27.5 g/dl (32.3-36.5); MEAN CELL VOLUME 78.3 fl (79.0-92.2); RDW 28.2 % (12.2-16.4)
[2025-03-06 14:07] LABS: GLUCOSE,RANDOM 78.0 mg/dL (74-106); TOT PROT 7.3 g/dl (6.4-8.2)
[2025-03-06 14:08] LABS: CO2 23.0 mmol/L (21-32)
[2025-03-06 14:10] LABS: ALK PHOS 53.0 U/L (40-150)
[2025-03-06 14:12] LABS: CREATININE 0.53 mg/dL (0.55-1.3); SGOT/AST 46.0 U/L (5-34); SGPT/ALT 40.0 U/L (0-55)
[2025-03-06] MEDS: MELATONIN 5 MG TABLETS PO SCH (22:07)
[2025-03-06] MEDS: THIAMINE 100 MG TABLET PO SCH (22:07)
[2025-03-07] MEDS: POTASSIUM CHLORIDE ORAL LIQUID 20 MEQ/15 ML PO ONE ×2 (10:17→13:57)
[2025-03-08 18:11] VITALS: RESP 16
[2025-03-09] MEDS: MAG HYDROX/AL HYDROX/SIMETH 30 ML UNIT-DOSE CUP PO PRN (00:04)
[2025-03-09 08:53] VITALS: BP 118/84; PULSE 78; TEMP 97.5
== END 2025-03-09 10:44 | disposition home or self-care (01) | DRG 775 ==
LOC: YASAS 21:48 → Y3N 23:13
PROVIDERS: ADMIT Neuromusculoskeletal Medicine & OMM; ATTEND Allergy & Immunology
PROC: HZ2ZZZZ Detoxification Services for Substance Abuse Treatment (ICD-10-PCS; principal; 2025-03-05)
DX: F10.230 Alcohol dependence with withdrawal, uncomplicated (principal); G40.909 Epilepsy, unspecified, not intractable, without status epilepticus; I10 Essential (primary) hypertension; K21.9 Gastro-esophageal reflux disease without esophagitis; D64.9 Anemia, unspecified; F41.8 Other specified anxiety disorders; G89.29 Other chronic pain
CPT/HCPCS: 36415; 80053; 80307; 84132; 85027; 86780